=== PATIENT | male | born 1940 | race Caucasian/White ===

== ENCOUNTER 2022-11-10 07:38 | Outpatient (OUT) | payer MEDICARE, SELFPAY ==
[2022-11-10 08:49] LABS: Anion Gap 10.2; BUN Creatinine Ratio 29.7; Calcium 9.4 mg/dL (8.5-10.1); Carbon Dioxide 33.1 mmol/L (21.0-32.0); Chloride 102 mmol/L (98-107); Estimated GFR (African America >60 (>=60); Estimated GFR (Non-African Ame 54 (>=60); Glucose 103 mg/dL (74-106); Potassium 4.3 mmol/L (3.5-5.1); Sodium 141 mmol/L (136-145)
== END 2022-11-10 07:39 ==
LOC: LAB 07:46
PROVIDERS: PCP Family Medicine; Visit Provider Internal Medicine Cardiovascular Disease
DX: I10 Essential (primary) hypertension (principal); R06.00 Dyspnea, unspecified
CPT/HCPCS: 36415; 80048

== ENCOUNTER 2023-10-02 09:35 | Outpatient (OUT) | payer MEDICARE, SELFPAY ==
[2023-10-02 10:27] LABS: Basophils Absolute Auto 0.1 10^3/uL (0.0-0.1); Eosinophils Absolute Auto 0.2 10^3/uL (0.0-0.7); Eosinophils Percent Auto 3.2 % (0.9-7.0); Hematocrit 43.1 % (42.0-54.0); Hemoglobin 14.3 g/dL (14.0-18.0); Immature Granulocytes Abs Auto 0.02 10^3/uL (0.00-0.03); Immature Granulocytes Pct Auto 0.3 % (0.0-0.5); Lymphocytes Absolute Auto 1.5 10^3/uL (1.2-3.8); Mean Corpuscular HGB Conc 33.2 g/dL (29.9-35.2); Mean Corpuscular Hemoglobin 34.2 pg (25.9-34.0); Mean Corpuscular Volume 103.1 fL (80.0-94.0); Monocytes Absolute Auto 0.7 10^3/uL (0.3-0.8); Monocytes Percent Auto 11.4 % (1.7-12.0); Neutrophils Absolute Auto 3.5 10^3/uL (1.4-6.5); Neutrophils Percent Auto 59.1 % (43.0-75.0); Platelet Count 213 10^3/uL (150-450); Red Blood Count 4.18 10^6/uL (4.70-6.10); White Blood Count 5.9 10^3/uL (4.0-11.0)
[2023-10-02 11:51] LABS: Estimated Average Glucose 108 mg/dL; Glycohemoglobin A1C 5.4 % (4.5-6.2)
[2023-10-02 12:05] LABS: Alanine Aminotransferase 22 U/L (16-63); Albumin Level 3.8 g/dL (3.4-5.0); Alkaline Phosphatase 65 U/L (46-116); Anion Gap 9.8; Aspartate Amino Transferase 29 U/L (15-37); Bilirubin Total 1.1 mg/dL (0.2-1.0); Calcium 9.1 mg/dL (8.5-10.1); Carbon Dioxide 33.5 mmol/L (21.0-32.0); Chloride 102 mmol/L (98-107); Chol HDL Ratio 2.5; Cholesterol 160 mg/dL (<=200); Estimated GFR (African America >60 (>=60); Estimated GFR (Non-African Ame 52 (>=60); Free T3 3.58 pg/mL (2.18-3.98); Globulin 3.9 g/dL; Glucose 100 mg/dL (74-106); HDL Cholesterol 65 mg/dL (40-60); Potassium 4.3 mmol/L (3.5-5.1); Sodium 141 mmol/L (136-145); Thyroid Stimulating Hormone 1.991 uIU/mL (0.358-3.740); Total Protein 7.7 g/dL (6.4-8.2); Triglycerides 55 mg/dL (<=150)
== END 2023-10-02 09:36 | disposition home or self-care (01) ==
LOC: LAB 09:36
PROVIDERS: PCP Family Medicine; Visit Provider Family Medicine
DX: E78.00 Pure hypercholesterolemia, unspecified (principal); I48.91 Unspecified atrial fibrillation; R06.00 Dyspnea, unspecified; R73.09 Other abnormal glucose; Z12.5 Encounter for screening for malignant neoplasm of prostate; I50.30 Unspecified diastolic (congestive) heart failure; I11.0 Hypertensive heart disease with heart failure
CPT/HCPCS: 36415; 80053; 80061; 83036; 83880; 84436; 84443; 84481; 85025; G0103

== ENCOUNTER 2023-12-29 10:35 | Outpatient (OUT) | payer MEDICARE, SELFPAY ==
--- OUTSIDE RECORDS SUMMARY | 2023-12-29 10:42 | XMS_ITS | CCD ---
Author Organization [facility] CliniSyhi Care Team Providers Care Apprentice Pattern Maker Name Role Phone Levi Dumont Primary Care Provider HEMAL ., DR SINGH Admitting Unavailable HOY ., DR SINGH Attending Unavailable HOY ., DR SINGH Primary Care Unavailable HOY ., DR SINGH Consulting Unavailable HOY ., DR SINGH Admitting Unavailable HOY ., DR SINGH Attending Unavailable HOY ., DR SINGH Primary Care Unavailable HOY ., DR SINGH Consulting Unavailable HOY ., DR SINGH Admitting Unavailable HOY ., DR SINGH Attending Unavailable HOY ., DR SINGH Primary Care Unavailable HOY ., DR SINGH Consulting Unavailable NEWATIA, VAN Consulting Unavailable Edilberto Reciolas M Unavailable Unavailable Unavailable Deon Rasmussen Admitting Unavailable Deon Rasmussen Attending Unavailable Samantha Recio Primary Care Unavailable Deon Rasmussen Admitting Unavailable Deon Rasmussen Attending Unavailable Samantha Recio Primary Care Unavailable Rasmussen, Dr. Deon Frank Attending Anita vailable Grady, Dr. Deon Frank Referring Anita vailable Hemal, Dr. Samantha Reyes Primary Care Unavail able Rasmussen, Dr. Deon Frank Attending Anita vailable Grady, Dr. Deon Frank Referring Anita vailable Hemal, Dr. Samantha Reyes Primary Care Unavail able Rasmussen, Dr. Deon Frank Attending Anita vailable Hemal, Dr. Samantha Reyes Primary Care Unavail able Hemal, Dr. Samantha Reyes Primary Care Unavail able Grady, Dr. Deon Frank Attending Anita vailable Grady, Dr. Deon Frank Referring Anita vailable DEON RASMUSSEN Attending Unavailable SAMANTHA RECIO Primary Care Unavailable DEON RASMUSSEN Attending Unavailable SAMANTHA RECIO Primary Care Unavailable Medications Current Medications Medication Drug Class(es) Dates Sig (Normalized) Sig (Original) benoxinate hydrochloride 4 mg/ml / fluorescein sodium 2.5 mg/ml ophthalmic solution (1 source) Diagnostic Dye Start: 11-14-2021 End: 11-14-2021 fluorescein-benoxi selene 0.25-0.4 % 1 Drop (FLURESS) phenylephrine hydrochloride 25 mg/ml ophthalmic solution (1 source) alpha-1 Adrenergic Agonist Start: 11-14-2021 End: 11-14-2021 PHENYLephrine 2.5 % 1 Drop (AK-DILATE, LUZMARIA-SYNEPHRINE) proparacaine hydrochloride 5 mg/ml ophthalmic solution (1 source) Local Anesthetic Start: 11-14-2021 End: 11-14-2021 proparacaine 0.5 % 1 Drop (ALCAINE) tropicamide 10 mg/ml ophthalmic solution (1 source) Anticholinergic Start: 11-14-2021 End: 11-14-2021 tropicamide 1 % 1 Drop (MYDRIACYL) Completed/Discontinued Medications Medication Drug Class(es) Dates Sig (Normalized) Sig (Original) Acetaminophen (1 source) acetaminophen (TYLENOL ARTHRITIS ORAL) Take by mouth as needed. 0 Active Comment on above: Take by mouth as nee ded. ascorbic acid 1000 mg oral tablet (4 sources) Vitamin C take 1 tablet by mouth once daily Vitamin C 1000 MG Oral Tablet TAKE 1 TABLET DAILY. Quantity: 0 Refills: 0 Ordered: 24-Oct-2022 DO Active take 1 tablet by mouth once kristofer y ascorbic acid, vitamin C, (VITAMIN C) 500 mg tablet Take 500 mg by mouth once daily. 0 Active Comment on above: Take 500 mg by mouth once daily. Calcium (3 sources) Phosphate Binder, Calcium Calcium + D TABS AYLIN E 1 TABLET DAILY. Quantity: 0 Refills: 0 Ordered: 24-Oct-2022 DO Active Calcium Carbonate / vitamin D3 (1 source) CALCIUM CARBONATE/VITAMIN D3 (CALCIUM + D ORAL) Take by mouth. 0 Active Comment on above: Take by mouth. Centrum Silver TABS (3 sources) Centrum Silver T ABS TAKE 1 TABLET DAILY. Quantity: 0 Refills: 0 Ordered: 24-Oct-2022 DO Active 24 hr dilTIAZem hydrochloride 180 mg extended release oral capsule (3 sources) Calcium Channel Preeti Start: diltiazem CD (CARDIZEM CD, CARTIA XT) 180 mg 24 hr capsule Take 180 mg by mouth as directed. 0 11/10/2015 Active Comment on above: Take 180 mg by mouth as directed. docosahexaenoic acid 120 mg / eicosapentaenoic acid 180 mg oral capsule (1 source) take 1 capsule by mouth once daily Docosahexanoic Acid-Eicosapent 120-180 mg capsule Take 1,000 mg by mouth once daily. 0 Active Comment on above: Take 1,000 mg by javier th once daily. FLAXSEED OIL (OMEGA 3 ORAL) (1 source) FLAXSEED OIL (OM EGA 3 ORAL) Take by mouth. 0 Active Comment on above: Take by mouth. FOLIC ACID/MULTIVIT-MIN/LUTEIN (CENTRUM SILVER ORAL) (1 source) FOLIC ACID/MULTIVIT-MIN/LUT EIN (CENTRUM SILVER ORAL) Take by mouth. 0 Active Comment on above: Take by mouth. indapamide 1.25 mg oral tablet (3 sources) Thiazide-like Diuretic Start: take 1 tablet by mouth once daily Indapamide 1.25 MG Oral Tablet TAKE 1 TABLET ONCE DAILY. Quantity: 90 Refills: 3 Ordered: 24-Oct-2022 Deon Rasmussen MD Start : 24-Oct-2022 Active new start losartan potassium 100 mg oral tablet (3 sources) Angiotensin 2 Receptor Preeti Start: 016 take 1 tablet by mouth once daily losartan (COZAAR) 100 mg tablet Take 100 mg by mouth once daily. 0 11/10/2015 Active Comment on above: Take 100 mg by mouth once daily. magnesium oxide 500 mg oral capsule (3 sources) Magnesium 500 MG CAPS TAKE 1 CAPSULE Daily Quantity: 0 Refills: 0 Ordered: 24-Oct-2022 DO Active rivaroxaban 20 mg oral tablet (3 sources) Factor Xa Inhibitor Start: 023 take 1 tablet by mouth once daily Xarelto 20 MG Oral Tablet Take 1 tablet daily Quantity: 90 Refills: 3 Ordered: 04-Nov-2022 Deon Rasmussen MD Start : 24-Oct-2022 Active Saw [place] 450 MG Oral Capsule (3 sources) Saw [place] 450 MG Oral Capsule TAKE DIRECTED. Quantity: 0 Refills: 0 Ordered: 24-Oct-2022 DO Active selenium 200 mcg cap (1 source) selenium 200 mcg cap Take by mouth. 0 Active Comment on above: Take by mouth. Selenium 200 MCG Oral Capsule (3 sources) Selenium 200 MCG Oral Capsule TAKE DIRECTED. Quantity: 0 Refills: 0 Ordered: 24-Oct-2022 DO Active vitamin b6 200 mg oral tablet (1 source) take 1 tablet by mouth once daily Pyridoxine HCl 200 mg tablet Take 200 mg by mouth once daily. 0 Active Comment on above: Take 200 mg by mouth once daily. ZNOX/PYG/PUMPK/SAW PAL/PROST (MEN'S SAW PALMETTO FORMULA ORAL) (1 source) ZNOX/PYG/PUMPK/S AW PAL/PROST (MEN'S SAW PALMETTO FORMULA ORAL) Take by mouth. 0 Active Comment on above: Take by mouth. Problems Active Problems Problem Classification Problem Date Documented Da te Episodic/Chronic Cardiac dysrhythmias (6 sources) Persistent atrial fibrillation; Translations: [Atrial fibrillation] Resolved: 10-25-2022 Chronic Congestive heart failure; nonhypertensive (1 source) Unspecified diastolic (congestive) heart failure; Translations: [UNSPECIFIED DIASTOLIC HEART FAILURE] Onset: 02-21-2022 Chronic Disorders of lipid metabolism (1 source) Hyperlipidemia, unspecified; Translations: [HYPERLIPIDEMIA UNSPECIFIED] Onset: 02-21-2022 Chronic Essential hypertension (5 sources) Benign essential hypertension; Translations: [Benign essential hypertension] Onset: 03-18-2023 Chronic Heart valve disorders (7 sources) Mitral valve regurgitation; Translations: [Mitral valve disorders] Onset: 10-31-2022 Chronic Hypertension with complications and secondary hypertension (1 source) Hypertensive heart disease with heart failure; Translations: [HTN HEART DISEASE W/HEART FAIL] Onset: 02-21-2022 Chronic Other aftercare (3 sources) Drug therapy finding; Translations: [Long-term (current) use of other medications] Episodic Other and ill-defined heart disease (3 sources) Left atrial dilatation; Translations: [Cardiomegaly] Chronic Other and ill-defined heart disease (2 sources) Cardiomegaly; Translations: [Cardiomegaly] Onset: 03-18-2023 Chronic Other and unspecified benign neoplasm (1 source) Nevus of choroid of left eye; Translations: [Benign neoplasm of left choroid] Episodic Other circulatory disease (3 sources) H/O: hypertension; Translations: [Personal history of other diseases of circulatory system] Episodic Other circulatory disease (1 source) Low blood pressure; Translations: [Hypotension, unspecified] Episodic Other lower respiratory disease (4 sources) Other forms of dyspnea; Translations: [OTHER FORMS OF DYSPNEA] Onset: 09-16-2022 Episodic Other lower respiratory disease (1 source) Dyspnea; Translations: [Other respiratory abnormalities] Episodic Other lower respiratory disease (2 sources) Shortness of breath; Translations: [Shortness of breath] Onset: 12-25-2023 Episodic Other nervous system disorders (3 sources) Carpal tunnel syndrome; Translations: [Carpal tunnel syndrome] Chronic Other nervous system disorders (3 sources) Lesion of ulnar nerve, left upper limb; Translations: [Cubital tunnel syndrome on left] Chronic Other nervous system disorders (3 sources) Lesion of ulnar nerve, right upper limb; Translations: [Cubital tunnel syndrome on right] Chronic Other non-traumatic joint disorders (1 source) Other specified joint disorders, right shoulder; Translations: [OTH SPECIFIED JOINT D/O RT SHOULDER] Onset: 09-13-2022 Episodic Other nutritional; endocrine; and metabolic disorders (3 sources) Overweight in adulthood with body mass index of 25 or more but less than 30; Translations: [Overweight] Episodic Retinal detachments; defects; vascular occlusion; and retinopathy (1 source) Bilateral epiretinal membrane of eyes; 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, bilateral] Chronic Unclassified (1 source) Encounter for preprocedural laboratory examination; Translations: [Encounter for preprocedural laboratory examination] Onset: 10-27-2022 Unclassified (4 sources) Other persistent atrial fibrillation; Translations: [Other persistent atrial fibrillation (Multi)] Onset: 03-18-2023 Past or Other Problems Problem Classification Problem Date Documented Da te Episodic/Chronic Diabetes mellitus without complication (1 source) Other abnormal glucose; Translations: [OTHER ABNORMAL GLUCOSE] Onset: 02-21-2022 Episodic Other aftercare (2 sources) Other mcfp (current) drug therapy; Translations: [Other supervisor intermediates (current) drug therapy] Onset: 03-18-2023 Episodic Other lower respiratory disease (4 sources) Dyspnea, unspecified; Translations: [DYSPNEA UNSPECIFIED] Onset: 02-14-2022 Episodic Other screening for suspected conditions (not mental disorders or infectious disease) (1 source) Encounter for screening for malignant neoplasm of prostate; Translations: [ENC SCREEN MALIG NEOPLASM PROSTATE] Onset: 02-21-2022 Episodic Residual codes; unclassified (2 sources) H/O: respiratory disease; Translations: [Personal history of other diseases of respiratory system] Resolved: 12-01-2022 Episodic Screening and history of mental health and substance abuse codes (2 sources) Personal history of nicotine dependence; Translations: [Personal history of nicotine dependence] Onset: 05-25-2023 Episodic Unclassified (3 sources) Never smoked tobacco; Translations: [Never a smoker] Results Test Name Value Interpretation Reference Range Facility Office Visit (Cardiology)on 12-01-2022 Follow-up visit Diagnoses/Problems Assessed Persistent atrial fibrillation with RVR (427.31) (I48.19) 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) High risk medication use (V58.69) (Z79.899) Benign essential hypertension (401.1) (I10) Mitral valve regurgitation (424.0) (I34.0) Overweight with body mass index (BMI) of 28 to 28.9 in adult (278.02,V85.24) (E66.3,Z68.28) Never a smoker Orders Overweight with body mass index (BMI) of 28 to 28.9 in adult Healthy Weight Tips; Status:Complete - Retrospective Authorization; Done: 01Dec2022 Some eating tips that can help you lose weight.; Status:Complete - Retrospective Authorization; Done: 01Dec2022 SocHx: Never a smoker Tobacco Use Screening; Status:Complete; Done: 01Dec2022 Patient Instructions Please bring all medicines, vitamins, and herbal supplements with you when you come to the office. Prescriptions will not be filled unless you are compliant with your follow up appointments or have a follow up appointment scheduled as per instruction of your physician. Refills should be requested at the time of your visit. Follow up in 6 months Chief Complaint BRANDI RAHMAN is being seen for results. Patient is in the office with his for follow-up after having SHARON guided recently to assess mitral valve pathology. The SHARON demonstrated no indication of mitral valve prolapse but moderate degree of regurgitation. The rest of the study was unremarkable. He is currently asymptomatic and has chronic atrial fibrillation managed with Cardizem for control and Xarelto for anticoagulation. We added indapamide last visit and his pressures under control at present time. His heart rate is controlled on diltiazem. He has active lifestyle and currently has no complaint. I revisited the issue of mitral valve pathology with the patient and his . Reassurances were provided for the time being. Assessment/recommendati ons: 1?persistent atrial fibrillation with controlled rate. Managed by diltiazem and Xarelto with a strategy of rate control anticoagulation. He has significant dilated left atrium therefore attempt to restore and maintain sinus rhythm will be futile and especially since the patient has no symptoms related to atrial fibrillation. 2?moderate mitral regurgitation that is due to primary valve disease without prolapse confirmed by SHARON. Asymptomatic and will continue to follow-up noninvasively every 2 to 3 years. Reassurances were provided 3?hypertension, currently under control, no changes are needed. 4?high risk medication use with anticoagulation to be monitored 5?significant bilateral atrial enlargement on recent echocardiogram to be monitored 6? overweight, encouraged weight control with low-calorie diet 7?high risk medication with anticoagulants to be monitored closely. ? Prior catheterization 2019 revealed normal coronary Surgical History Problems History of Cardiac catheterization History of Carpal tunnel surgery History of Colectomy History of Knee replacement History of Neuroplasty Median Nerve At Carpal Tunnel History of Neuroplasty With Transposition Of Ulnar Nerve History of Tonsillectomy Past Medical History Problems History of dyspnea (V12.69) (Z87.898) History of hypertension (V12.59) (Z86.79) History of Paroxysmal atrial fibrillation (427.31) (I48.0) Resolved Date: 25 Oct 2022 Current Meds Medication NameInstruction Calcium + D TABSTAKE 1 TABLET DAILY. Centrum Silver TABSTAKE 1 TABLET DAILY. dilTIAZem HCl ER Beads 180 MG Oral Capsule Extended Release 24 HourTAKE 1 CAPSULE DAILY IN THE MORNING. Indapamide 1.25 MG Oral TabletTAKE 1 TABLET ONCE DAILY. Losartan Potassium 100 MG Oral TabletTAKE 1 TABLET DAILY. Magnesium 500 MG CAPSTAKE 1 CAPSULE Daily Saw [place] 450 MG Oral CapsuleTAKE DIRECTED. Selenium 200 MCG Oral CapsuleTAKE DIRECTED. Vitamin C 1000 MG Oral TabletTAKE 1 TABLET DAILY. Xarelto 20 MG Oral TabletTake 1 tablet daily Patient did not bring medication list or bottles. Updated verbally with patient Allergies Medication No Known Drug Allergies Recorded By: Claudia Bhatt; 03/30/2015 9:11:18 AM Social History Problems Daily caffeine consumption COFFEE DAILY Never a smoker No illicit drug use Occasional alcohol use Review of Systems Constitutional: not feeling tired. Cardiovascular: no intermittent leg claudication and as noted in HPI. Respiratory: no cough and no shortness of breath. Gastrointestinal: no change in bowel habits and no blood in stools. Integumentary: no skin rashes. Neurological: no seizures and no frequent falls. All other systems have been reviewed and are negative for complaint. Vitals Vital Signs Recorded: 01Dec2022 01:03PMRecorded: 01Dec2022 12:48PM [id number], RUE, Sitting [id number], RUE, Sitting Heart Rate76, L Radial Height5 ft 6 in [id number] lb BMI Kjfjhhwdgq36.41 kg/m2 BSA Calculated1.89 Tobacco Useb) No Falls Screening (Age 18+)a) No falls within the (more content not included)... Normal [place] Tobacco Screening.on 023 Fall risk assessment a) No falls within the last year [facility]- [place] 250 DO Work Phone: Tobacco use status [facility] b) No [facility]- [place] 250 DO Work Phone: [facility] echo transesophageal SHARON on 10-31-2022 [facility] echo transesophageal SHARON [facility] Main [place] [address] [place] [address] Echocardiogram Signed Patient: Brandi Rahman MR#: [id number] 9 : 1940 Acct:[id number] Age/Sex: 82 / M ADM Date: 10/31/22 Loc: IN Room: Type: [facility] Attending Dr: Deon Rasmussen MD Ordering Provider: Deon Rasmussen MD, [facility] Date of Service: 10/31/22/ [facility] echo transesophageal SHARON: DYSPNEA, MR, A-FIB. Copies to: Deon Rasmussen MD, [facility] Reason For Study: DYSPNEA, MR, A-FIB. History: Afib. HTN. Former Smoker. Family history: Father-Aortic Aneurysm. Interpretation Summary SHARON was done in the OR with anesthesia providing sedation The left ventricular size, thickness and function are normal Ejection Fraction = 60-65%. The left atrium appears moderately dilated. Atrial septum appears to be intact and there is no evidence of flow across the atrial septum either by colorflow Doppler or by agitated saline. The right atrium is borderline dilated. The mitral valve is moderately thickened with no evidence of prolapse. Moderate degree of regurgitation is present with multiple jets noted. No evidence of ruptured chordae. No evidence of mitral stenosis There is mild tricuspid regurgitation. The right ventricular systolic pressure is 45 mmHg. Right ventricular systolic pressure is consistent with mild to moderate pulmonary hypertension. The aortic arch was noted to be normal with no significant plaques Procdure: A two-dimensional transesophageal echocardiogram with color flow and Doppler was performed. Informed consent for Transesophageal Echocardiogram was obtained prior to the procedure. SHARON was done in the OR with anesthesia providing sedation. The transesophageal probe was passed without difficulty. The usual views were obtained; basal, mid-esophageal, transgastric and aortic views. The patient's vital signs, including blood pressure, heart rate, pulse oximetry and cardiac rhythm were monitored throughout the procedure and remained stable. Contrast injection with agitated saline was performed. The patient tolerated the procedure well without evidence of orophangeal or esophageal trauma. Left Ventricle: The left ventricular size, thickness and function are normal. Ejection Fraction = 60-65%. Left Atrium: The left atrium appears moderately dilated. Atrial septum appears to be intact and there is no evidence of flow across the atrial septum either by colorflow Doppler or by agitated saline. The atrial septum appears normal. Right Atrium: The right atrium is borderline dilated. Right Ventricle: The right ventricular size, thickness and function are normal. Aortic Valve: The aortic valve is trileaflet. Mitral Valve: The mitral valve is moderately thickened with no evidence of prolapse. Moderate degree of regurgitation is present with multiple jets noted. No evidence of ruptured chordae. No evidence of mitral stenosis. Tricuspid Valve: The tricuspid valve is normal. There is mild tricuspid regurgitation. The right ventricular systolic pressure is 45 mmHg. Right ventricular systolic pressure is consistent with mild to moderate pulmonary hypertension. Pulmonic Valve: The pulmonic valve is not well seen, but is grossly normal. Arteries: The aortic arch was noted to be normal with no significant plaques. Effusions: No pericardial effusion seen. Transcribed By: TAMY Performed At: 10/31/22 1247 Signed By: Deon Rasmussen MD, [facility] 10/31/22 1605 Normal [facility] Basic Metabolic Panelon 10-07 Anion gap [Moles/Vol] 9.3 mmol/L Normal 6.0-15.0 [facility] Comment on above: Performed By: #### B MP, CBC #### [address] Calcium [Mass/Vol] 9.1 mg/dL Normal 8.6-10.3 [facility] Comment on above: Result Comment: PERF ORMED BY: [place] [address] PATHOLOGIST BRAILLE TEACHER LILLIAN TILLMAN M.D. Performed By: #### B MP, CBC #### [facility] [address] [place] [address] [place] Chloride [Moles/Vol] 101 mmol/L Normal 98-107 [facility] Comment on above: Performed By: #### B MP, CBC #### [facility] [address] [place] [address] [place] CO2 [Moles/Vol] 34.3 mmol/L High 21.0-31.0 [facility] Comment on above: Performed By: #### B MP, CBC #### [facility] [address] Creatinine [Mass/Vol] 1.30 mg/dL Normal 0.70-1.30 [facility] Comment on above: Performed By: #### B MP, CBC #### [facility] [address] [place] [address] [place] GFR/1.73 sq M.predicted MDRD (S/P/Bld) [Vol rate/Area] 54.849 mL/min/{1.73_m2} Normal [facility] Comment on above: Performed By: #### B MP, CBC #### [facility] [address] Glucose [Mass/Vol] 89 mg/dL Normal 70-100 [facility] Comment on above: Result Comment: [facility] Glucose Reference Range is dependent on time and content of last meal. Glucose of more than 200 mg/dL in a nonstressed, ambulatory subject supports the diagnosis of Diabetes Mellitus. ADA recommended reference range Performed By: #### B MP, CBC #### [address] Potassium [Moles/Vol] 4.6 mmol/L Normal 3.5-5.1 [facility] Comment on above: Performed By: #### B MP, CBC #### [address] Sodium [Moles/Vol] 140 mmol/L Normal 136-145 [facility] Comment on above: Performed By: #### B MP, CBC #### [address] Urea nitrogen [Mass/Vol] 29 mg/dL High 7-25 [facility] Comment on above: Performed By: #### B MP, CBC #### [address] Complete Blood Count Auto Di ffon 10-27-2022 Basophils (Bld) [#/Vol] 0.1 10*3/uL Normal 0.0-0.2 [facility] Comment on above: Result Comment: PERF ORMED BY: [place] [address] PATHOLOGIST BRAILLE TEACHER LILLIAN TILLMAN M.D. Performed By: #### B MP, CBC #### [address] [place] [address] [place] Basophils/100 WBC (Bld) 1.1 % Normal . [facility] Comment on above: Performed By: #### B MP, CBC #### [address] Eosinophils (Bld) [#/Vol] 0.2 10*3/uL Normal 0.0-0.45 [facility] Comment on above: Performed By: #### B MP, CBC #### [address] Eosinophils/100 WBC (Bld) 3.2 % Normal . [facility] Comment on above: Performed By: #### B MP, CBC #### [address] Erythrocyte distribution width (RBC) [Ratio] 14.4 % Normal 12.0-14.8 [facility] Comment on above: Performed By: #### B MP, CBC #### [address] Hematocrit (Bld) [Volume fraction] 43.0 % Normal 38.8-50.0 [facility] Comment on above: Performed By: #### B MP, CBC #### [address] Hemoglobin (Bld) [Mass/Vol] 14.4 g/dL Normal 13.0-17.0 [facility] Comment on above: Performed By: #### B MP, CBC #### [address] Lymphocytes (Bld) [#/Vol] 1.0 10*3/uL Normal 1.00-4.8 [facility] Comment on above: Performed By: #### B MP, CBC #### [address] Lymphocytes/100 WBC (Bld) 21.1 % Normal . [facility] Comment on above: Performed By: #### B MP, CBC #### [address] MCH (RBC) [Entitic mass] 33.8 pg Normal 27.5-35.2 [facility] Comment on above: Performed By: #### B MP, CBC #### [address] MCV (RBC) [Entitic vol] 100.8 fL Normal 83.5-101 [facility] Comment on above: Performed By: #### B MP, CBC #### [address] Mean Corpuscular HGB Conc 33.5 g/dL Normal 32.5-35.6 [facility] Comment on above: Performed By: #### B MP, CBC #### [address] Monocytes (Bld) [#/Vol] 0.6 10*3/uL Normal 0.0-0.8 [facility] Comment on above: Performed By: #### B MP, CBC #### [address] Monocytes/100 WBC (Bld) 11.8 % Normal . [facility] [facility] [place] Comment on above: Performed By: #### B MP, CBC #### [address] Neutrophils (Bld) [#/Vol] 2.9 10*3/uL Normal 1.8-7.7 [facility] [place] Comment on above: Performed By: #### B MP, CBC #### [address] Neutrophils/100 WBC (Bld) 62.8 % Normal . [facility] [place] Comment on above: Performed By: #### B MP, CBC #### [address] NRBC% 0.1 /100{WBC} Normal 0-0.5 [facility] [place] Comment on above: Performed By: #### B MP, CBC #### [address] Platelet mean volume (Bld) [Entitic vol] 8.0 fL Normal 6.6-10.1 [facility] [place] Comment on above: Performed By: #### B MP, CBC #### [facility] [address] Platelets (Bld) [#/Vol] 213 10*3/uL Normal 150-450 [facility] [place] Comment on above: Performed By: #### B MP, CBC #### [facility] [address] RBC (Bld) [#/Vol] 4.27 10*6/uL Normal 3.90-5.60 [facility] Comment on above: Performed By: #### B MP, CBC #### [facility] [address] WBC (Bld) [#/Vol] 4.7 10*3/uL Normal 4.1-10.5 [facility] Comment on above: Performed By: #### B MP, CBC #### [facility] [address] Office Visit (Cardiology)on 10-24-2022 Follow-up visit Diagnoses/Problems Assessed Mitral valve regurgitation (424.0) (I34.0) Dyspnea (786.09) (R06.00) High risk medication use (V58.69) (Z79.899) Overweight with body mass index (BMI) of 26 to 26.9 in adult (278.02,V85.22) (E66.3,Z68.26) Never a smoker Benign essential hypertension (401.1) (I10) Mitral valve prolapse (424.0) (I34.1) Persistent atrial fibrillation with RVR (427.31) (I48.19) 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) Orders Benign essential hypertension, Dyspnea Basic Metabolic Panel; Status:Active; Requested for:10Nov2022; Dyspnea, Mitral valve regurgitation, PMH: Paroxysmal atrial fibrillation Transesophageal Echo; Status:Hold For - Scheduling; Requested for:24Oct2022; High risk medication use, PMH: Paroxysmal atrial fibrillation Changed: From To Xarelto 20 MG Oral Tablet Take 1 tablet daily Overweight with body mass index (BMI) of 26 to 26.9 in adult Healthy Weight Tips; Status:Complete; Done: [id number] Some eating tips that can help you lose weight.; Status:Complete; Done: [id number] PMH: Paroxysmal atrial fibrillation Start: Indapamide 1.25 MG Oral Tablet; TAKE 1 TABLET ONCE DAILY SocHx: Never a smoker Tobacco Use Screening; Status:Complete; Done: [id number] Unlinked Stop: Eliquis 2.5 MG Oral Tablet Patient Instructions Please bring all medicines, vitamins, and herbal supplements with you when you come to the office. Prescriptions will not be filled unless you are compliant with your follow up appointments or have a follow up appointment scheduled as per instruction of your physician. Refills should be requested at the time of your visit. Xarelto 20 mg one daily Lozol 1.25 mg one daily SHARON Follow-up after testing completed The provider reviewed the following test(s) and result(s) with the patient: ECG Chief Complaint BRANDI RAHMAN is being seen for SELF REFERRAL. 82-year-old white male who came to see me accompanied by his who is a patient of mine for evaluation of recent diagnosis of atrial fibrillation in the context of their severe mitral regurgitation caused by significant mitral valve prolapse. Back in 2000 the patient had cardiac catheterization by myself which showed normal coronary arteries. At the time he was having ventricular arrhythmias for which she was evaluated by EP and were found to be insignificant and no action was needed. I have not seen him since that time. Had an echocardiogram done recently at [facility] which I have the report reviewed. It demonstrated significant dilatation of right and left atrium and significant amount of prolapse of the mitral valve leading to moderate-severe regurgitation. The patient has symptoms of limited exercise tolerance, he has no orthopnea PND or lower extremity edema and no chest pain. Has no TIAs or stroke and no bleeding complications. His examination reveals that the mitral regurgitation murmur is consistent with the prolapse. He has irregular rhythm and his EKG atrial fibrillation with controlled rate. Currently he is on samples of Eliquis. Assessment/recommendati ons: 1?persistent atrial fibrillation with controlled rate. The patient require long-term anticoagulation and the rationale for that was discussed with him at length. He chose to go on Xarelto 20 mg daily since he has normal kidney function. His rate is controlled. There should be no attempt to restore normal sinus rhythm given the size of his atria. 2?near severe mitral regurgitation in the context of significant mitral valve prolapse. The reader of the previous transthoracic echocardiogram suggested transesophageal echocardiogram for better understanding of the function and the structure of the mitral valve which I agree with. I explained that the patient and his and he agreed to get the procedure scheduled. Eventually will decide whether this valve need to be repaired or replaced based on the findings. 3?hypertension, currently uncontrolled on losartan, given the fact that patient has mitral regurgitation we need to be more aggressive with hypertension and I advise adding indapamide 1.25 mg daily. 4?high risk medication use with anticoagulation to be monitored 5?significant bilateral atrial enlargement on recent echocardiogram to be monitored 6?slight overweight, encouraged weight control with low-calorie diet Active Problems Problems Bilateral carpal tunnel syndrome (354.0) (G56.03) Cubital tunnel syndrome on left (354.2) (G56.22) Cubital tunnel syndrome on right (354.2) (G56.21) Never a smoker Surgical History Problems History of Cardiac catheterization History of Carpal tunnel surgery History of Colectomy History of Knee replacement History of Neuroplasty Median Nerve At Carpal Tunnel History of Neuroplasty With Transposition Of Ulnar Nerve History of Tonsillectomy Past Medical History Problems History of hypertension (V12.59) (Z86.79) History of Paroxysmal atrial fibrillation (427.31) (I48.0) Current Meds Medication NameInst (more content not included)... Normal [place] Tobacco Screening.on 023 Adult depression screening assessment No [facility] 250 DO Work Phone: Fall risk assessment a) No falls within the last year [facility] 250 DO Work Phone: Tobacco use status CPHS b) No [facility] 250 DO Work Phone: ECHOCARDIO M/2D COMPLETEon 0 09-16-2022 ECHOCARDIO M/2D COMPLETE Patient: BRANDI RAHMAN Exam Date: 09/16/2022 : 1940 Gender:M Ordering : DR SAMANTHA RECIO . Admission #: [id number] Family : Order #: [id number] CLICK HERE TO VIEW EXAM ECHOCARDIOGRAM REPORT PROCEDURE: CARDIO PULMONARY ECHOCARDIO M/2D COMP INDICATIONS: MOYA COMPARISON: None. DESCRIPTION: COMPLETE ECHOCARDIOGRAM Real-time transthoracic echocardiography with 2D, M-mode, spectral and color flow Doppler performed. QUALITY: Technical quality was good. LEFT VENTRICLE: Normal chamber size. Moderate concentric left ventricular hypertrophy. Global left ventricular systolic function is normal. LV EF: Visual estimation of left ventricular ejection fraction is 55% DIASTOLIC: Not adequately assessed due to heart rhythm. ATRIAL SEPTUM: LEFT ATRIUM: Severe dilatation. RIGHT ATRIUM: Moderate dilatation. RIGHT VENTRICLE: Normal chamber size. Normal right ventricular systolic function. TRICUSPID VALVE: Normal mobility and thickness. No stenosis with mild regurgitation. Doppler studies suggest moderate pulmonary hypertension. RVSP 52 mmHg MITRAL VALVE: Possible posterior leaflet prolapse. No evidence of mitral valve stenosis. There is no mitral annular calcification. Moderate to severe mitral regurgitation. AORTIC VALVE: Normal trileaflet appearance. Mildly calcified aortic valve. Normal leaflet mobility. No evidence of aortic valve stenosis. Mild aortic regurgitation. AORTIC ROOT: Normal diameter and appearance. PULMONIC VALVE: Normal thickness and mobility. No stenosis. Mild regurgitation. PERICARDIUM: No evidence of pericardial effusion. IVC: Collapses with inspirations. Normal size. PLEURA: CONCLUSION: 1. Left ventricular systolic function appears to be normal. LVEF is estimated at 55%. 2. Moderate concentric left ventricular hypertrophy. 3. Normal right ventricular size and systolic function. 4. Moderate to severe biatrial dilatation. 5. Possible posterior leaflet mitral valve leaflet prolapse with moderate to severe mitral regurgitation. 6. Mild tricuspid and aortic regurgitation. 7. Mildly elevated right-sided pressures. 8. The patient appears to be in atrial fibrillation. 9. A transesophageal echocardiogram would provide better assessment of the mitral valve structure and function. Adult Echocardiography Procedure Report Left Ventricle LVEDD (3.7 - 5.6 cm): 5.45 cm LVESD (2.2 - 4.0 cm): 3.70 cm LVIVS thickness (0.6 - 1.2 cm): 1.44 cm LVPW thickness (0.5 - 1.0 cm): 1.52 cm e': 0.19 m/s E - e': 6.08 LVOT Max Gradient: 2.90 mm[Hg] Peak Velocity (LVOT): 0.85 m/s Mean Velocity (LVOT): 0.59 m/s LVOT Diameter 2.33 cm Left Ventricular Ejection Fraction: 55 % Left Atrium LA Volume Index (2D A2C): 222.84 ml, 222.84 ml Left Atrium Systolic Dimension: 6.74 cm Mitral Valve MV E to A Ratio: 103.66 Mitral Valve A-Wave Peak Velocity: 0.01 m/s Mitral Valve E-Wave Peak Velocity: 1.19 m/s Right Ventricle RV Internal Diastolic Dimension: 4.04 cm Aorta AO Root Diam: 3.59 cm Ascending Ao Diam: 3.29 cm Aortic Valve AoV Area (Peak Dl): 2.57 cm2, 2.57 cm2 AoV Area (VTI): 2.46 cm2, 2.46 cm2 Peak Velocity(Antegrade Flow): 1.41 m/s Peak Gradient(Antegrade Flow): 7.94 mm[Hg] Mean Velocity(Antegrade Flow): 1.00 m/s Mean Gradient(Antegrade Flow): 4.59 mm[Hg] Velocity Time Integral: 25.60 cm Tricuspid Valve Peak Velocity (Regurgitant Flow): 3.51 m/s, 3.22 m/s, 3.20 m/s, 3.22 m/s Peak Velocity: 0.52 m/s Pulmonic Valve Mean Gradient: 2.24 mm[Hg] Mean Velocity: 0.68 m/s Peak Velocity: 1.08 m/s, 0.94 m/s Peak Gradient: 3.51 mm[Hg], 4.64 mm[Hg] Right Atrium Right Atrium Systolic Pressure: 62.72 ml, 62.72 ml Dictated by: Jt Lackey M.D. on 09/16/2022 at 20:13 Approved by: Jt Lackey M.D. on 09/16/2022 at 20:23 Normal The [facility] BNPon 09-09-2022 Natriuretic peptide B (Bld) [Mass/Vol] 154.0 pg/mL Normal <=1,800.0 [facility] Comment on above: Performed By: #### T SH, T7, CMP, BNP ####[facility] [address] [place] [address]DrRodolfo Elver Arthur CBC AUTO DIFFon 09-09-2022 BASO # 0.0 103/ul Normal 0.0-0.1 [facility] Comment on above: Performed By: #### C BC ####[facility] [address] [place] [address]Dr. Elver Gibson Basophils/100 WBC (Bld) 0.6 % Normal 0.2-2.0 [facility] Comment on above: Performed By: #### C BC ####[facility] [address] [place], [place] [address]Dr. Elver Gibson EO # 0.2 103/ul Normal 0.0-0.7 [facility] Comment on above: Performed By: #### C BC ####[facility] [address] [place], [place] [address]Dr. Elver Gibson Eosinophils/100 WBC (Bld) 4.1 % Normal 0.9-7.0 [facility] Comment on above: Performed By: #### C BC ####[facility] [address] [place], [place] [address]Dr. Elver Gibson Erythrocyte distribution width (RBC) [Ratio] 13.5 % Normal 11.0-15.0 [facility] Comment on above: Performed By: #### C BC ####[facility] [address] [place], [place] [address]Dr. Elver Gibson Hematocrit (Bld) [Volume fraction] 42.9 % Normal 42.0-54.0 [facility] Comment on above: Performed By: #### C BC ####[facility] [address] [place], [place] [address]Dr. Elver Gibson Hemoglobin (Bld) [Mass/Vol] 14.5 g/dL Normal 14.0-18.0 [facility] Comment on above: Performed By: #### C BC ####[facility] [address] [place], [place] [address]Dr. Elver Gibson IG # 0.01 10e3/ul Normal 0.00-0.03 [facility] Comment on above: Performed By: #### C BC ####[facility] [address] [place], [place] [address]Dr. Elver Gibson IG % 0.2 % Normal 0.0-0.5 [facility] Comment on above: Performed By: #### C BC ####[facility] [address] [place] [id number] Gibson LYMPH # 1.2 103/ul Normal 1.2-3.8 [facility] Comment on above: Performed By: #### C BC ####[facility] [address] [place] [id number]. Elver Gibson Lymphocytes/100 WBC (Bld) 21.8 % Normal 20.5-60.0 [facility] Comment on above: Performed By: #### C BC ####[facility] [address] [place] [address]DrRodolfo Gibson MANUAL DIFF REQ NO Normal [facility] Comment on above: Performed By: #### C BC ####[facility] [address] [place] [phone]. Elver Gibson MCH (RBC) [Entitic mass] 33.4 pg Normal 25.9-34.0 [facility] Comment on above: Performed By: #### C BC ####[facility] [address] [place] [id number]. Elver Gibson MCHC (RBC) [Mass/Vol] 33.8 g/dL Normal 29.9-35.2 [facility] Comment on above: Performed By: #### C BC ####[facility] [address] [place] [id number] Gibson MCV (RBC) [Entitic vol] 98.8 fL Critically high 80.0-94.0 [facility] Comment on above: Performed By: #### C BC ####[facility] [address] [place] [id number] Gibson MONO # 0.7 103/ul Normal 0.3-0.8 [facility] Comment on above: Performed By: #### C BC ####[facility] [address] [place] [phone]. Elver Gibson Monocytes/100 WBC (Bld) 13.3 % Critically high 1.7-12.0 [facility] Comment on above: Performed By: #### C BC ####[facility] [address] [place] [phone]. Elver Gibson NEUT # 3.3 103/ul Normal 1.4-6.5 [facility] Comment on above: Performed By: #### C BC ####[facility] [address] [place] [phone]. Elver Gibson Neutrophils/100 WBC (Bld) 60.0 % Normal 43.0-75.0 [facility] Comment on above: Performed By: #### C BC ####[facility] [address] [place] [phone]. Elver Gibson Platelet mean volume (Bld) [Entitic vol] 9.5 fL Normal 9.5-13.5 [facility] Comment on above: Performed By: #### C BC ####[facility] [address] [place] [phone]. Elver Gibson PLT 197 103/ul Normal 150-450 [facility] Comment on above: Performed By: #### C BC ####[facility] [address] [place] [phone]. Elver Gibson RBC 4.34 106/ul Critically low 4.70-6.10 [facility] Comment on above: Performed By: #### C BC ####[facility] [address] [place] [phone]. Elver Gibson WBC 5.4 103/ul Normal 4.0-11.0 [facility] Comment on above: Performed By: #### C BC ####[facility] [address] [place] [phone]. Elver Gibson FREE THYROXINE INDEX T7on FTI 2.21 Normal 1.30-4.50 [facility] Comment on above: Performed By: #### T SH, T7, CMP, BNP ####[facility] [address] [place] [phone]. Elver Arthur T3U 35.0 % Normal 33.0-40.0 [facility] Comment on above: Performed By: #### T SH, T7, CMP, BNP ####[facility] [address] [place] [address]Dr. Elver Gibson T4 [Mass/Vol] 6.30 ug/dL Normal 4.50-12.10 [facility] Comment on above: Performed By: #### T SH, T7, CMP, BNP ####[facility] [address] [place] [address]Dr. Elver Gibson PROF 14(COMP METB)on 023 Albumin [Mass/Vol] 3.8 g/dL Normal 3.4-5.0 [facility] Comment on above: Performed By: #### T SH, T7, CMP, BNP ####[facility] [address] [place] [address]Dr. Elver Gibson Albumin/Globulin [Mass ratio] 1.1 {ratio} Normal [facility] Comment on above: Performed By: #### T SH, T7, CMP, BNP ####[facility] [address] [place] [address]Dr. Elver Gibson ALP [Catalytic activity/Vol] 74 U/L Normal 46-116 [facility] Comment on above: Performed By: #### T SH, T7, CMP, BNP ####[facility] [address] [place] [address]Dr. Elver Gibson ALT [Catalytic activity/Vol] 27 U/L Normal 16-63 [facility] Comment on above: Performed By: #### T SH, T7, CMP, BNP ####[facility] [address] [place] [address]Dr. Elver Gibson Anion gap [Moles/Vol] 10.8 mmol/L Normal [facility] Comment on above: Performed By: #### T SH, T7, CMP, BNP ####[facility] [address] [place] [address]Dr. Elver Gibson AST [Catalytic activity/Vol] 30 U/L Normal 15-37 [facility] Comment on above: Performed By: #### T SH, T7, CMP, BNP ####[facility] [address] [place] [address]Dr. Elver Gibson Bilirubin [Mass/Vol] 0.7 mg/dL Normal 0.2-1.0 [facility] Comment on above: Performed By: #### T SH, T7, CMP, BNP ####[facility] [address] [place] [address]Dr. Elver Gibson Calcium [Mass/Vol] 9.3 mg/dL Normal 8.5-10.1 [facility] Comment on above: Performed By: #### T SH, T7, CMP, BNP ####[facility] [address] [place], [place] [address]Dr. Elver Gibson Chloride [Moles/Vol] 104 mmol/L Normal 98-107 [facility] Comment on above: Performed By: #### T SH, T7, CMP, BNP ####[facility] [address] [place], [place] [address]Dr. Elver Gibson CO2 [Moles/Vol] 31.9 mmol/L Normal 21.0-32.0 The [facility] [place] Comment on above: Performed By: #### T SH, T7, CMP, BNP ####[facility] [address] [place], [place] [address]Dr. Elver Gibson Creatinine [Mass/Vol] 1.19 mg/dL Normal 0.70-1.30 [facility] Comment on above: Performed By: #### T SH, T7, CMP, BNP ####[facility] [address] [place], [place] [address]Dr. Elver Gibson EGFR-AF NIGERIEN >60 Normal >=60 [facility] [place] Comment on above: Performed By: #### T SH, T7, CMP, BNP ####[facility] [address] [place], [place] [address]Dr. Elver Gibson EGFR-NON AF NIGERIEN 59 mL/min/1.73m2 Critically low >=60 [facility] Comment on above: Performed By: #### T SH, T7, CMP, BNP ####[facility] [address] [place], [place] [address]Dr. Elver Gibson Globulin (S) [Mass/Vol] 3.5 g/dL Normal [facility] Comment on above: Performed By: #### T SH, T7, CMP, BNP ####[facility] [address] [place] [address]Dr. Elver Gibson Glucose [Mass/Vol] 124 mg/dL Critically high 74-106 [facility] Comment on above: Performed By: #### T SH, T7, CMP, BNP ####[facility] [address] [place] [address]Dr. Elver Gibson Potassium [Moles/Vol] 4.7 mmol/L Normal 3.5-5.1 [facility] Comment on above: Performed By: #### T SH, T7, CMP, BNP ####[facility] [address] [place] [address]Dr. Elver Gibson Protein [Mass/Vol] 7.3 g/dL Normal 6.4-8.2 [facility] Comment on above: Performed By: #### T SH, T7, CMP, BNP ####[facility] [address] [place] [address]Dr. Elver Gibson Sodium [Moles/Vol] 142 mmol/L Normal 136-145 [facility] Comment on above: Performed By: #### T SH, T7, CMP, BNP ####[facility] [address] [place] [address]Dr. Elver Gibson Urea nitrogen [Mass/Vol] 27.0 mg/dL Critically high 7.0-18.0 [facility] Comment on above: Performed By: #### T SH, T7, CMP, BNP ####[facility] [address] [place] [address]Dr. Elver Gibsno Urea nitrogen/Creatinine [Mass ratio] 22.7 mg/mg Normal [facility] Comment on above: Performed By: #### T SH, T7, CMP, BNP ####[facility] [address] [place] [address]Dr. Elver Gibson TSHon 09-09-2022 TSH 1.455 uIU/mL Normal 0.358-3.740 [facility] Comment on above: Performed By: #### T SH, T7, CMP, BNP ####[facility] [address] [place] [address]Dr. Elver Gibson XR CHEST 2 Von 09-09-2022 XR CHEST 2 V EXAMINATION: XR CHES T 2 V, 09/09/2022 12:11 PM EDT HISTORY: Dyspnea COMPARISON: None. TECHNIQUE: Chest x-ray: Two views. FINDINGS: No focal consolidations or pleural effusions. Cardiomediastinal silhouette is unremarkable. Calcified mediastinal lymph nodes. Severe degenerative changes of the glenohumeral joints bilaterally. Thoracic spine spondylosis. IMPRESSION: No acute disease. Electronically authenticated by: VAN VUONG Date: 2022-09-09 12:48 Normal [facility] INSULINon 02-15-2022 Insulin 11.3 uIU/mL Normal 2.6-24.9 [facility] Comment on above: Performed By: #### I NSULIN #### [facility] [address] [address] [address] Elver Gibson T4, T3U, FTI LABCORPon 02-15 Free Thyroxine Index 2.1 Normal 1.2-4.9 [facility] Comment on above: Performed By: #### T HYLC #### [facility] [address] [address] [address] Elver Gibson T3 Uptake 30 % Normal 24-39 [facility] Comment on above: Performed By: #### T HYLC #### [facility] [address] [address] [address] Elver Gibson T4 [Mass/Vol] 7.0 ug/dL Normal 4.5-12.0 [facility] Comment on above: Performed By: #### T HYLC #### [facility] [address] [address] [address] Elver Gibson BNPon 02-14-2022 Natriuretic peptide B (Bld) [Mass/Vol] 229.0 pg/mL Normal <=1,800.0 [facility] Comment on above: Performed By: #### B PAYROLL SPECIALIST, CMP, LIPID, TSH, URIC #### [facility] [address] [place], [place] [address] Dr. Elver Gibson CBC AUTO DIFFon 02-14-2022 BASO # 0.0 103/ul Normal 0.0-0.1 [facility] Comment on above: Performed By: #### C BC ####[facility] [address] [place] [id number] Gibson Basophils/100 WBC (Bld) 0.7 % Normal 0.2-2.0 [facility] Comment on above: Performed By: #### C BC ####[facility] [address] [place] [phone]. Elver Gibson EO # 0.2 103/ul Normal 0.0-0.7 [facility] Comment on above: Performed By: #### C BC ####[facility] [address] [place] [id number] Gibson Eosinophils/100 WBC (Bld) 3.9 % Normal 0.9-7.0 [facility] Comment on above: Performed By: #### C BC ####[facility] [address] [place] [id number] Gibson Erythrocyte distribution width (RBC) [Ratio] 13.2 % Normal 11.0-15.0 [facility] Comment on above: Performed By: #### C BC ####[facility] [address] [place] [id number] Gibson Hematocrit (Bld) [Volume fraction] 42.9 % Normal 42.0-54.0 [facility] Comment on above: Performed By: #### C BC ####[facility] [address] [place] [id number] Gibson Hemoglobin (Bld) [Mass/Vol] 14.2 g/dL Normal 14.0-18.0 [facility] Comment on above: Performed By: #### C BC ####[facility] [address] [place] [id number] Gibson IG # 0.01 10e3/ul Normal 0.00-0.03 [facility] Comment on above: Performed By: #### C BC ####[facility] [address] [place] [address]DrRodolfo Gibson IG % 0.2 % Normal 0.0-0.5 [facility] Comment on above: Performed By: #### C BC ####[facility] [address] [place] [address]DrRodolfo Gibson LYMPH # 1.4 103/ul Normal 1.2-3.8 [facility] Comment on above: Performed By: #### C BC ####[facility] [address] [place] [address]DrRodolfo Gibson Lymphocytes/100 WBC (Bld) 24.0 % Normal 20.5-60.0 [facility] Comment on above: Performed By: #### C BC ####[facility] [address] [place], [place] [address]DrRodolfo Gibson MANUAL DIFF REQ NO Normal [facility] Comment on above: Performed By: #### C BC ####[facility] [address] [place] [id number] Elver Arthur MCH (RBC) [Entitic mass] 33.3 pg Normal 25.9-34.0 [facility] Comment on above: Performed By: #### C BC ####[facility] [address] [place], [place] [address]DrRodolfo Gibson MCHC (RBC) [Mass/Vol] 33.1 g/dL Normal 29.9-35.2 [facility] Comment on above: Performed By: #### C BC ####[facility] [address] [place], [place] [id number] Gibson MCV (RBC) [Entitic vol] 100.7 fL Critically high 80.0-94.0 [facility] Comment on above: Performed By: #### C BC ####[facility] [address] [place] [id number] Gibson MONO # 0.7 103/ul Normal 0.3-0.8 [facility] Comment on above: Performed By: #### C BC ####[facility] [address] [place] [id number]. Elver Gibson Monocytes/100 WBC (Bld) 12.7 % Critically high 1.7-12.0 [facility] Comment on above: Performed By: #### C BC ####[facility] [address] [place] [id number]. Elver Gibson NEUT # 3.3 103/ul Normal 1.4-6.5 [facility] Comment on above: Performed By: #### C BC ####[facility] [address] [place] [id number]. Elver Gibson Neutrophils/100 WBC (Bld) 58.5 % Normal 43.0-75.0 [facility] Comment on above: Performed By: #### C BC ####[facility] [address] [place] [id number]. Elver Gibson Platelet mean volume (Bld) [Entitic vol] 9.6 fL Normal 9.5-13.5 [facility] Comment on above: Performed By: #### C BC ####[facility] [address] [place] [id number]. Elver Gibson PLT 183 103/ul Normal 150-450 [facility] Comment on above: Performed By: #### C BC ####[facility] [address] [place] [id number]. Elver Gibson RBC 4.26 106/ul Critically low 4.70-6.10 [facility] Comment on above: Performed By: #### C BC ####[facility] [address] [place] [id number]. Elver Gibson WBC 5.7 103/ul Normal 4.0-11.0 [facility] Comment on above: Performed By: #### C BC ####[facility] [address] [place] [id number]. Elver Gibson GLYCOHEMOGLOBIN A1Con 2021 ADA RECOMMENDATION SEE BELOW Normal [facility] Comment on above: Result Comment: ADA RECOMMENDED LIMIT 4.0 - 6.0 ADA THERAPEUTIC TARGET < 7.0 ACTION SUGGESTED > 7.0 Performed By: #### A 1C #### [facility] [address] [address] [address] Elver Gibson Glucose [Mass/Vol] 108 mg/dL Normal [facility] Comment on above: Performed By: #### A 1C #### [facility] [address] [address] [address] Elver Gibson HbA1c (Bld) [Mass fraction] 5.4 % Normal 4.5-6.2 [facility] Comment on above: Performed By: #### A 1C #### [facility] [address] [place] [address] Dr. Elver Gibson LIPID PROFILEon 02-14-2022 CHOL-HDL RATIO NORM SEE BELOW Normal [facility] Comment on above: Result Comment: 3.3 - 4.4 LOW RISK 4.4 - 7.1 AVERAGE RISK 7.1 - 11.0 MODERATE RISK >11.0 HIGH RISK Performed By: #### B PAYROLL SPECIALIST, CMP, LIPID, TSH, URIC #### [facility] [address] [address] [address] Elver Gibson Cholesterol [Mass/Vol] 174 mg/dL Normal <=200 [facility] Comment on above: Performed By: #### B PAYROLL SPECIALIST, CMP, LIPID, TSH, URIC #### [facility] [address] [address] [address] Elver Gibson Cholesterol in HDL [Mass/Vol] 63 mg/dL Critically high 40-60 [facility] Comment on above: Performed By: #### B PAYROLL SPECIALIST, CMP, LIPID, TSH, URIC #### [facility] [address] [address] [address] Elver Gibson Cholesterol in LDL [Mass/Vol] 100.4 mg/dL Normal [facility] Comment on above: Performed By: #### B PAYROLL SPECIALIST, CMP, LIPID, TSH, URIC #### [facility] [address] [address] [address] Elver Gibson Cholesterol.total/C holesterol in HDL [Mass ratio] 2.8 {ratio} Normal [facility] Comment on above: Performed By: #### B PAYROLL SPECIALIST, CMP, LIPID, TSH, URIC #### [facility] [address] [address] [address] Elver Gibson HDL NORMAL > or = 60 mg/dl - LO W CARDIOVASCULAR RISK <40 mg/dl - HIGH CARDIOVASCULAR RISK Normal [facility] Comment on above: Performed By: #### B PAYROLL SPECIALIST, CMP, LIPID, TSH, URIC #### [facility] [address] [address] [address] Elver Gibson LDL CALC NORMAL SEE BELOW Normal [facility] Comment on above: Result Comment: <100 mg/dl OPTIMAL 100 - 129 mg/dl NEAR OR ABOVE OPTIMAL 130 - 159 mg/dl BORDERLINE HIGH 160 - 189 mg/dl HIGH >190 mg/dl VERY HIGH Performed By: #### B PAYROLL SPECIALIST, CMP, LIPID, TSH, URIC #### [facility] [address] [place] [address] Dr. Elver Gibson Triglyceride [Mass/Vol] 53 mg/dL Normal <=150 [facility] Comment on above: Performed By: #### B PAYROLL SPECIALIST, CMP, LIPID, TSH, URIC #### [facility] [address] [address] [address] Elver Gibson VLDL CALC 10.6 mg/dL Normal [facility] Comment on above: Performed By: #### B PAYROLL SPECIALIST, CMP, LIPID, TSH, URIC #### [facility] [address] [place] [address] Dr. Elver Gibson PROF 14(COMP METB)on 022 Albumin [Mass/Vol] 3.7 g/dL Normal 3.4-5.0 [facility] Comment on above: Performed By: #### B PAYROLL SPECIALIST, CMP, LIPID, TSH, URIC #### [facility] [address] [place] [address] Dr. Elver Gibson Albumin/Globulin [Mass ratio] 1.1 {ratio} Normal [facility] Comment on above: Performed By: #### B PAYROLL SPECIALIST, CMP, LIPID, TSH, URIC #### [facility] [address] [place] [address] Dr. Elver Gibson ALP [Catalytic activity/Vol] 64 U/L Normal 46-116 [facility] Comment on above: Performed By: #### B PAYROLL SPECIALIST, CMP, LIPID, TSH, URIC #### [facility] [address] [address] [address] Elver Gibson ALT [Catalytic activity/Vol] 27 U/L Normal 16-63 [facility] Comment on above: Performed By: #### B PAYROLL SPECIALIST, CMP, LIPID, TSH, URIC #### [facility] [address] [place] [address] Dr. Elver Gibson Anion gap [Moles/Vol] 9.7 mmol/L Normal [facility] Comment on above: Performed By: #### B PAYROLL SPECIALIST, CMP, LIPID, TSH, URIC #### [facility] [address] [place] [address] Dr. Elver Gibson AST [Catalytic activity/Vol] 30 U/L Normal 15-37 [facility] Comment on above: Performed By: #### B PAYROLL SPECIALIST, CMP, LIPID, TSH, URIC #### [facility] [address] [place] [address] Dr. Elver Gibson Bilirubin [Mass/Vol] 0.7 mg/dL Normal 0.2-1.0 [facility] Comment on above: Performed By: #### B PAYROLL SPECIALIST, CMP, LIPID, TSH, URIC #### [facility] [address] [place] [address] Dr. Elver Gibson Calcium [Mass/Vol] 8.9 mg/dL Normal 8.5-10.1 [facility] Comment on above: Performed By: #### B PAYROLL SPECIALIST, CMP, LIPID, TSH, URIC #### [facility] [address] [place] [address] Dr. Elver Gibson Chloride [Moles/Vol] 104 mmol/L Normal 98-107 [facility] Comment on above: Performed By: #### B PAYROLL SPECIALIST, CMP, LIPID, TSH, URIC #### [facility] [address] [place] [address] Dr. Elver Gibson CO2 [Moles/Vol] 31.8 mmol/L Normal 21.0-32.0 [facility] Comment on above: Performed By: #### B PAYROLL SPECIALIST, CMP, LIPID, TSH, URIC #### [facility] [address] [place] [address] Dr. Elver Gibson Creatinine [Mass/Vol] 1.19 mg/dL Normal 0.70-1.30 [facility] Comment on above: Performed By: #### B PAYROLL SPECIALIST, CMP, LIPID, TSH, URIC #### [facility] [address] [place] [address] Dr. Elver Gibson EGFR-AF NIGERIEN >60 Normal >=60 [facility] Comment on above: Performed By: #### B PAYROLL SPECIALIST, CMP, LIPID, TSH, URIC #### [facility] [address] [place] [address] Dr. Elver Gibson EGFR-NON AF NIGERIEN 59 mL/min/1.73m2 Critically low >=60 [facility] Comment on above: Performed By: #### B PAYROLL SPECIALIST, CMP, LIPID, TSH, URIC #### [facility] [address] [place] [address] Dr. Elver Gibson Globulin (S) [Mass/Vol] 3.4 g/dL Normal [facility] Comment on above: Performed By: #### B PAYROLL SPECIALIST, CMP, LIPID, TSH, URIC #### [facility] [address] [place] [address] Dr. Elver Gibson Glucose [Mass/Vol] 97 mg/dL Normal 74-106 [facility] Comment on above: Performed By: #### B PAYROLL SPECIALIST, CMP, LIPID, TSH, URIC #### [facility] [address] [place] [address] Dr. Elver Gibson Potassium [Moles/Vol] 4.5 mmol/L Normal 3.5-5.1 [facility] Comment on above: Performed By: #### B PAYROLL SPECIALIST, CMP, LIPID, TSH, URIC #### [facility] [address] [place] [address] Dr. Elver Gibson Protein [Mass/Vol] 7.1 g/dL Normal 6.4-8.2 [facility] Comment on above: Performed By: #### B PAYROLL SPECIALIST, CMP, LIPID, TSH, URIC #### [facility] [address] [place] [address] Dr. Elver Gibson Sodium [Moles/Vol] 141 mmol/L Normal 136-145 [facility] Comment on above: Performed By: #### B PAYROLL SPECIALIST, CMP, LIPID, TSH, URIC #### [facility] [address] [place] [address] Dr. Elver Gibson Urea nitrogen [Mass/Vol] 31.0 mg/dL Critically high 7.0-18.0 [facility] Comment on above: Performed By: #### B PAYROLL SPECIALIST, CMP, LIPID, TSH, URIC #### [facility] [address] [place] [address] Dr. Elver Gibson Urea nitrogen/Creatinine [Mass ratio] 26.1 mg/mg Normal [facility] Comment on above: Performed By: #### B PAYROLL SPECIALIST, CMP, LIPID, TSH, URIC #### [facility] [address] [place] [address] Dr. Elver Gibson TSHon 02-14-2022 TSH 1.829 uIU/mL Normal 0.358-3.740 [facility] Comment on above: Performed By: #### B PAYROLL SPECIALIST, CMP, LIPID, TSH, URIC #### [facility] [address] [place] [address] Dr. Elver Gibson URIC ACID SERUMon 02-14-2022 Urate [Mass/Vol] 7.1 mg/dL Normal 3.5-7.2 [facility] Comment on above: Performed By: #### B PAYROLL SPECIALIST, CMP, LIPID, TSH, URIC #### [facility] [address] [place] [address] Dr. Elver Nicole 09-24-2021 RIGON Telephone (OPHTMN) BRANDI RAHMAN ([id number]) 1940 M Date Time Provider Department 09/24/21 ZULEMA GUO During your visit today, we recorded the following information about you: Mansi Montanez 09/24/2021 3:15 PM Signed Records for Choroidal Nevus referral received by fax. Uploaded to scanned document and sent message to scheduling team to arrange appointment for patient. Allergies As of Date: 09/24/2021 (No Known Allergies) Date Reviewed: 12/14/2015 Reviewed by: Dev Naik - Fully Assessed Reason for Visit: Received Outside Medical Records [[id number]] Cmt: Ho Alberto OD [phone] Fax Prescriptions as of 09/24/2021 - diltiazem CD (CARDIZEM CD, CARTIA XT) 180 mg 24 hr capsule Take 180 mg by mouth as directed. - losartan (COZAAR) 100 mg tablet Take 100 mg by mouth once daily. - CALCIUM CARBONATE/VITAMIN D3 (CALCIUM + D ORAL) Take by mouth. - FLAXSEED OIL (OMEGA 3 ORAL) Take by mouth. - ZNOX/PYG/PUMPK/SAW PAL/PROST (MEN'S SAW PALMETTO FORMULA ORAL) Take by mouth. - FOLIC ACID/MULTIVIT-MIN/LUTEI N (CENTRUM SILVER ORAL) Take by mouth. - selenium 200 mcg cap Take by mouth. - Pyridoxine HCl 200 mg tablet Take 200 mg by mouth once daily. Problem List As Of Date: 09/24/2021 (None) Encounter Status:Closed by MANSI MONTANEZ on 09/24/21 Normal [facility] Ambulatory Clinical Summaryo n 02-28-2020 Ambulatory Clinical Summary {[id number] Normal [facility] Ambulatory Clinical Summary {[id number] Normal [facility] Patient Educationon 02-28-20 20 Patient Education Family Medicine Benign Prostatic Hypertrophy The prostate gland is part of the reproductive system of men. A normal prostate is about the size and shape of a walnut. The prostate gland makes a fluid that is mixed with sperm to make semen. This gland surrounds the urethra and is located in front of the rectum and just below the bladder. The bladder is where urine is stored. The urethra is the tube through which urine passes from the bladder to get out of the body. The prostate grows as a man ages. An enlarged prostate not caused by cancer is called benign prostatic hypertrophy (BPH). This is a common health problem in men over age 50. This condition is a normal part of aging. An enlarged prostate presses on the urethra. This makes it harder to pass urine. In the early stages of enlargement, the bladder can get by with a narrowed urethra by forcing the urine through. If the problem gets worse, medical or surgical treatment may be required. This condition should be followed by your caregiver. Longstanding back pressure on the kidneys can cause infection. Back pressure and infection can progress to bladder damage and kidney (renal ) failure. If needed, your caregiver may refer you to a specialist in kidney and prostate disease (urologist ). CAUSES The exact cause is not known. SYMPTOMS ? You are not able to completely empty your bladder. ? Getting up often during the night to urinate. ? Need to urinate frequently during the day. ? Difficultly in starting urine flow. ? Decrease in size and strength of the urine stream. ? Dribbling after urination. ? Pain on urination (more common with infection). ? Inability to pass your water. This needs immediate treatment. DIAGNOSIS These tests will help your caregiver understand your problem: ? Digital rectal exam (PEYTON). In a rectal exam, your caregiver checks your prostate by putting a gloved, lubricated finger into the rectum to feel the back of your prostate gland. This exam detects the size of the gland and abnormal lumps or growths. ? Urinalysis (exam of the urine). This may include a culture if there is concern about infection. ? Prostate Specific Antigen (PSA). This is a blood test used to screen for prostate cancer. It is not used alone for diagnosing prostate cancer. ? Rectal ultrasound (sonogram). This test uses sound waves to electronically produce a picture of the prostate. It helps examine the prostate gland for cancer. TREATMENT Mild symptoms may not need treatment. Simple observation and yearly exams may be all that is required. Medications and surgery are options for more severe problems. Your caregiver can help you make an informed decision for what is best. Two classes of medications are available for relief of prostate symptoms: ? Medications that shrink the prostate. This helps relieve symptoms. ? Uncommon side effects include problems with sexual function. ? Medications to relax the muscle of the prostate. This also relieves the obstruction. ? Side effects can include dizziness, fatigue, lightheadedness, and retrograde ejaculation (diminished volume of ejaculate). Several types of surgical treatments are available for relief of prostate symptoms: ? Transurethral resection of the prostate (TURP). In this treatment, an instrument is inserted through opening at the tip of the penis. It is used to cut away pieces of the inner core of the prostate. The pieces are removed through the same opening of the penis. This removes the obstruction and helps get rid of the symptoms. ? Transurethral incision (TUIP). In this procedure, small cuts are made in the prostate. This lessens the prostates pressure on the urethra. ? Transurethral microwave thermotherapy (TUMT). This procedure uses microwaves to create heat. The heat destroys and removes a small amount of prostate tissue. ? Transurethral needle ablation (TUNA). This is a procedure that uses radio frequencies to do the same as TUMT. ? Interstitial laser coagulation (ILC). This is a procedure that uses a laser to do the same as TUMT and TUNA. ? Transurethral electrovaporization (TUVP). This is a procedure that uses electrodes to do the same as the procedures listed above. Regardless of the method of treatment chosen, you and your caregiver will discuss the options. With this knowledge, you along with your caregiver can decide upon the best treatment for you. SEEK MEDICAL CARE IF: ? You develop chills, fever of 100.5? F (38.1? C), or night sweats. ? There is unexplained back pain. ? Symptoms are not helped by medications prescribed. ? You develop medication side effects. ? Your urine becomes very dark or has a bad smell. SEEK IMMEDIATE MEDICAL CARE IF: ? You are suddenly unable to urinate. This is an emergency. You should be seen immediately. ? There are large amounts of blood or clots in the urine. ? Your urinary problems become unmanageable. ? You develop lightheadedness, severe dizz (more content not included)... Normal [facility] Urology Office/Clinic Noteon 02-28-2020 Urology Office/Clinic Note Chief Complaint 1 year with PSA Mr. Rahman is a 79-year-old gentleman with a history of renal calculi. He also has a history of prostatic hyperplasia and states he is voiding without any difficulty at this time. He is here today to review his most recent KUB x-ray. HPI Staff Pt is here for 1 year with PSA. Previous dx of BPH with urinary obstruction, kidney stone, nocturia, frequency and former smoker. Current PSA done 12/29/2019 is 0.31. Previous PSA done 12/27/2018 was 0.32. Dysuria: no Incomplete bladder emptying: no Hematuria: no Frequency: no Urgency: no Nocturia: 1-2x Stream: moderate with hesitancy once in a while Leaking: no Post void dripping: no Wearing pads/ Depends: no Urge incontinence: no Stress incontinence: no Incontinence without Sensory Awareness: no Abdominal pain: no Flank pain: no Sexual complaints: no History of Present Illness Reviewed UA and PSA. There have been no associated fever, chills, flank pain or blood in the urine. Pt. denies any pain/burning with urination at this time. Review of Systems PHQ Score Initial Depression Screen Score: 0 ROS - Provider Constitutional: denies weight loss, denies hot flashes. Eyes: denies eye problems. Gastrointestinal: denies nausea, denies vomiting. Cardiovascular: denies chest pain or angina. Integumentary: no dryness Musculoskeletal: denies musculoskeletal symptoms. ENMT: denies otolaryngeal symptoms. Respiratory: no shortness of breath. Heme/Lymph: denies easy bleeding tendency, denies easy bruising tendency. Psychiatric: no confusion, no anxiety. Genitourinary: denies dysuria, denies hematuria, denies discharge, denies urinary frequency, denies urinary hesitancy, denies nocturia, denies incontinence, denies genital sores, denies decreased libido, and denies erectile dysfunction. Physical Exam Vitals & Measurements HR: 60(Peripheral) RR: 16 BP: 169/88 HT: 170.2 cm HT: 170.18 cm WT: 84.1 kg WT: 84.1 kg BMI: 29.04 General Appearance: alert, no distress, well nourished, well developed male. Flank Pain: none. Bladder: nonpalpable. Prostate: normal prostate, estimated weight 40 gms, no hard nodule observed. Assessment/Plan This patient is a stable PSA and KUB shows no evidence of any new stones. Patient is voiding without any difficulty at this point. He is not on any medications from my office. We will plan to see him back in the office in 1 year with another KUB and another PSA blood test. He is been instructed to contact our office if his voiding pattern should change. 1. BPH with urinary obstruction (N40.1: Benign prostatic hyperplasia with lower urinary tract symptoms) Pt. is not on any BPH meds. at this time and is doing well overall w/ his urination w/ no bothersome symptoms. Most current PSA done 12/29/2019 with a result of 0.31 compared to 0.32 on 12/2018. All questions/concerns were discussed. Pt. to call the office if heencounters any issues prior. Pt. acknowledges understanding. F/u in 1 yr. w/ KUB and PSA. 2. Kidney stone (N20.0: Calculus of kidney) Pt. denies any stone issues at this time. No recent imaging. Former smoker (Z87.891: Personal history of nicotine dependence) I have reviewed the previous health record information and history for this pt. from Dr. Arriaza. Follow-up With When Contact Information Arsalan Ryder MD, [place] [address] Additional Instructions: 1yr. w/ KUB and PSA Patient Education Benign Prostatic Hypertrophy I, Marichuy Hernández , personally scribed for Dr. Arriaza on 02/28/2020 10:21:00. . Documentation recorded by the scribe, Marichuy Hernández, accurately reflects the services(s) I performed and decisions made by me. Authenticated by Dr. Arriaza on 02/28/2020 10:32:42. Problem List/Past Medical History Ongoing BPH with urinary obstruction Former smoker Frequent urination History of kidney stones Kidney stone Nocturia Historical No qualifying data Procedure/Surgical History Cataract, Colectomy, Hemorrhage, Knee replacement, Lithotripsy, Tonsillectomy. Medications Centrum Silver, Oral, Daily diltiazem 5 mg/mL intravenous solution, IV, Once losartan, Oral, Daily [place]-3 Osteo Bi-Flex selenium, Oral, Daily Vitamin C, Daily Allergies No Known Medication Allergies Social History Alcohol Current, 1-2 times per week, 03/01/2019 Tobacco Never (less than 100 in lifetime) Tobacco Use:. Never Smokeless Tobacco Use:., 03/01/2019 Family History Breast cancer: Sister. Lab Results Test Name Test Result Date/Time PSA, External 0.31 ng/mL 12/29/2019 12:54 EDT PSA, External 0.32 ng/mL 12/27/2018 07:06 EDT Ambulatory Point of Care Results Bilirubin Urine Dipstick: Negative (02/28/20 09:47:00) Blood Urine Dipstick: Negative (02/28/20 09:47:00) Glucose Urine Dipstick: Negative (02/28/20 09:47:00) Ketones Urine Dipstick: Negative (09 (more content not included)... Normal [facility] Comment on above: Result Comment: Elec tronically Signed By: Arsalan Ryder MD, Roger Agosto\.br\Date and Time Signed: 02/28/20 10:32 EDT\.br\Electronically Co-Signed By: Marichuy Hernández MA\.br\Date and Time Co-Signed: 02/28/20 10:21 EDT No Panel Information [facility] Vital Signs Date Time Vital Sign Value Performing Clinician Facility 01-28-2023 13:33-0400 Body height 167.64 cm Samantha Ziegler [employer] Phone: [facility] Amina DO Work Phone: 01-28-2023 13:33-0400 Body mass index (BMI) [Ratio] 27.92 kg/m2 [employer] Phone: [facility] Amina DO Work Phone: 01-28-2023 13:33-0400 Body surface area Derived from formula 1.88 m2 SamanthaYones Phone: [facility] Amina DO Work Phone: 01-28-2023 13:33-0400 Body weight 78.47 kg Samantha M Hoy Work Phone: [facility] 250 DO Work Phone: 01-28-2023 13:33-0400 Diastolic blood pressure 92 mm[Hg] Samantha M Hoy Work Phone: [facility] 250 DO Work Phone: 01-28-2023 13:33-0400 Diastolic blood pressure 90 mm[Hg] Samantha M Hoy Work Phone: [facility] 250 DO Work Phone: 01-28-2023 13:33-0400 Diastolic blood pressure 80 mm[Hg] Samantha M Hoy Work Phone: [facility] 250 DO Work Phone: 01-28-2023 13:33-0400 Heart rate 84 /min Samantha M Hoy Work Phone: [facility] 250 DO Work Phone: 01-28-2023 13:33-0400 Systolic blood pressure 162 mm[Hg] Samantha M Hoy Work Phone: [facility] 250 DO Work Phone: 01-28-2023 13:33-0400 Systolic blood pressure 152 mm[Hg] Samantha M Hoy Work Phone: [facility] 250 DO Work Phone: 01-28-2023 13:33-0400 Systolic blood pressure 124 mm[Hg] Samantha M Hoy Work Phone: [facility] 250 DO Work Phone: 01-28-2023 13:33-0400 91 1 Samantha M Hoy Work Phone: [facility] 250 DO Work Phone: Comment on above: PULRateLy 01-28-2023 13:33-0400 84 1 Samantha M Hoy Work Phone: [facility] 250 DO Work Phone: Comment on above: PULRateSit 01-28-2023 13:33-0400 90 1 Samantha M Hoy Work Phone: [facility] 250 DO Work Phone: Comment on above: PULRateSt 01-28-2023 13:28-0400 Body height 167.64 cm Samantha M Hoy Work Phone: [facility] 250 DO Work Phone: 01-28-2023 13:28-0400 Body mass index (BMI) [Ratio] 27.92 kg/m2 Samantha M Hoy Work Phone: [facility] 250 DO Work Phone: 01-28-2023 13:28-0400 Body surface area Derived from formula 1.88 m2 Samantha M Hoy Work Phone: [facility] 250 DO Work Phone: 01-28-2023 13:28-0400 Body weight 78.47 kg Samantha M Hoy Work Phone: [facility] 250 DO Work Phone: 01-28-2023 13:28-0400 Diastolic blood pressure 90 mm[Hg] Samantha M Hoy Work Phone: [facility] 250 DO Work Phone: 01-28-2023 13:28-0400 Heart rate 91 /min Samantha M Hoy Work Phone: [facility] 250 DO Work Phone: 01-28-2023 13:28-0400 Systolic blood pressure 152 mm[Hg] Samantha M Hoy Work Phone: [facility] 250 DO Work Phone: 12-01-2022 13:03-0400 Diastolic blood pressure 60 mm[Hg] Samantha M Hoy Work Phone: [facility]Pmalkgtfkg-Twi [place] 250 DO Work Phone: 12-01-2022 13:03-0400 Systolic blood pressure 120 mm[Hg] Samantha Toney Hoy Work Phone: DN-Camsnqapzx-Ygz [place] 250 DO Work Phone: 12-01-2022 12:48-0400 Body height 167.64 cm Samantha Toney Hoy Work Phone: MH-Tdtgnlhdxq-Pde [place] 250 DO Work Phone: 12-01-2022 12:48-0400 Body mass index (BMI) [Ratio] 28.41 kg/m2 Samantha Ziegler Hoy Work Phone: VO-Yyhhgzadas-Mzl [place] 250 DO Work Phone: 12-01-2022 12:48-0400 Body surface area Derived from formula 1.89 m2 Samantha Toney Hoy Work Phone: QS-Adiyisoolb-Uhu [place] 250 DO Work Phone: 12-01-2022 12:48-0400 Body weight 79.83 kg Samantha Ziegler Hoy Work Phone: AR-Usyqbybiyt-Jeq [place] 250 DO Work Phone: 12-01-2022 12:48-0400 Diastolic blood pressure 60 mm[Hg] Samantha Toney Hoy Work Phone: LV-Abborthaep-Mqd meño 250 DO Work Phone: 12-01-2022 12:48-0400 Heart rate 76 /min Samantha Toney Hoy Work Phone: BP-Ivdlmpbgqd-Wcq [place] 250 DO Work Phone: 12-01-2022 12:48-0400 Systolic blood pressure 94 mm[Hg] Samantha M Hoy Work Phone: BY-Wwoeuubqrj-Wuq alirezaky 250 DO Work Phone: 11-04-2022 07:53-0400 65 1 Samantha M Hoy Work Phone: [facility] 250 DO Work Phone: Comment on above: [id number] 10-24-2022 10:01-0400 Body height 175.26 cm Samantha M Hoy Work Phone: [facility] 250 DO Work Phone: 10-24-2022 10:01-0400 Body mass index (BMI) [Ratio] 26.58 kg/m2 Samantha M Hoy Work Phone: [facility] 250 DO Work Phone: 10-24-2022 10:01-0400 Body surface area Derived from formula 1.98 m2 Samantha M Hoy Work Phone: [facility] 250 DO Work Phone: 10-24-2022 10:01-0400 Body weight 81.65 kg Samantha M Hoy Work Phone: [facility] 250 DO Work Phone: 10-24-2022 10:01-0400 Diastolic blood pressure 82 mm[Hg] Samantha M Hoy Work Phone: [facility] 250 DO Work Phone: 10-24-2022 10:01-0400 Heart rate 84 /min Samantha M Hoy Work Phone: [facility] 250 DO Work Phone: 10-24-2022 10:01-0400 Systolic blood pressure 144 mm[Hg] Samantha M Hoy Work Phone: [facility] 250 DO Work Phone: Encounters Encounter Date Encounter Type Care Provider Facility Start: 12-25-2023 End: 12-25-2023 ambulatory [facility] Start: 05-25-2023 End: 05-25-2023 ambulatory [facility] Start: 01-28-2023 Patient encounter procedure [facility] Work Phone: Start: 01-28-[address] Deon Weeks heathrosamaria Rasmussen Facility: Start: 12-01-2022 Office outpatient visit 25 minutes Samantha Recio Work Phone: [facility] 250 DO Work Phone: Start: 12-01-[address] Deon Weeks heathrosamaria Rasmussen Facility: Start: 10-31-[address] Deon Weeks heathrosamaria Rasmussen Facility:[id number] Start: 10-31-2022 End: 10-31-2022 ambulatory [facility] Facility:[facility] Start: 10-31-2022 Rx Renewal Samantha Recio Work Phone: [facility] 250 DO Work Phone: Start: 10-27-2022 End: 10-27-2022 ambulatory [facility] Facility:[facility] Start: 10-24-[address] Samantha Recio Facility: Start: 09-16-2022 End: 09-17-[address] SAMANTHA RECIO . Facility:[facility] Start: 09-09-2022 End: 09-10-[address] SAMANTHA RECIO . Facility:[facility] Start: 02-14-2022 End: 02-15-[address] SAMANTHA RECIO . 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 Comment on above: Performed By: #### [facility] ####[place] [place], [place] [address]UoRodolfo Gibson Start: 11-14-2021 End: 11-14-2021 Computerized ophthalmic imaging retina Zulema Guo MD Work Phone: Arthroplasty of knee Samantha M Hemal Work Phone: Cardiac catheterization Edilberto las M Hemal Work Phone: Decompression of med nehemiah nerve Samantha M Hemal Work Phone: Excision of colon Samantha M Hemal Work Phone: Neuroplasty and transposition of median nerve at carpal tunnel Samantha M Hemal Work Phone: Neuroplasty With Transposition Of Ulnar Nerve Samantha M Hemal Work Phone: Tonsillectomy Samantha M Hemal Work Phone: Plan of Treatment Date Care Activity Detail Author Start: 05-20-2023 FUV, Provider: Deon Rasmussen, Status: Pen, Time: 9:10 AM FUV, Provider: Deon Rasmussen, Status: Pen, Time: 9:10 AM [facility]Nltwjna y 250 DO Work Phone: Start: 12-01-2022 FUV, Provider: Deon Rasmussen, Status: Pen, Time: 1:00 PM FUV, Provider: Deon Rasmussen, Status: Pen, Time: 1:00 PM [facility] 250 DO Work Phone: Start: 11-29-2022 End: 05-08-2023 OCT MACULA CIRRUS OU (BOTH EYES) OCT MACULA CIRRUS OU (BOTH EYES) OPHT Imaging Routine Epiretinal membrane (ERM) of both eyes Nevus of choroid of left eye Expected: 11/29/2022, Expires: 05/08/[address] [facility] Work Phone: Comment on above: Expected: 11/29/2022 , Expires: 05/08/2023 Start: 02-06-2022 Influenza vaccination INFLUENZ A (Season Ended) [facility] Start: 08-17-2021 COVID-19 VACCINE (4 - Booster for Moderna series) COVID-19 VACCINE (4 - Booster for Moderna series) [facility] Start: 06-08-2021 ADVANCE DIRECTIVE DISCUSSION ADVANCE DIRECTIVE DISCUSSION [facility] Start: 09-10-2006 DIABETES SCREEN DIABETES SCREEN [facility] Start: 2005 PNEUMOCOCCAL: 65+ (1 - PCV) PNEUMOCOCCAL: 65+ (1 - PCV) [facility] Start: 1990 SHINGRIX VACCINE (1 of 2) SHINGRIX VACCINE (1 of 2) [facility] Start: 09-29-1959 Urine microalbumin profile DTAP,TDAP,TD (1 - Tdap) [facility] Immunizations Immunization Date Immunization Notes Care Provider Glenroy pleitez 04-19-2021 Moderna COVID-19 Vac cine 100 MCG/0.5ML Intramuscular Suspension Samantha [employer] Work Phone: [facility] [employer] 250 DO Work Phone: 2020 Moderna COVID-19 Vac cine 100 MCG/0.5ML Intramuscular Suspension Samantha M Hoy Work Phone: [facility] [employer] 250 DO Work Phone: 08-31-2020 Moderna COVID-19 Vac cine 100 MCG/0.5ML Intramuscular Suspension Samantha M Hoy Work Phone: [facility] [employer] 250 DO Work Phone: 04-07-2017 influenza virus vacc ine, unspecified formulation Samantha M Hoy Work Phone: [facility] [employer] 250 DO Work Phone: 03-25-2016 influenza virus vacc ine, unspecified formulation Samantha M Hoy Work Phone: [facility] [employer] 250 DO Work Phone: 03-17-2016 influenza, high dose seasonal, preservative-free Samantha M Hoy Work Phone: [facility] 250 DO Work Phone: Payers Date Payer Category Payer Self-pay 2020 Unknown MMO MMO MEDICARE SUPPLEMENT [id number] 2020-Present [phone] [address] [place] [address] Indemnity [id number] 1959 Medicare [id number] 1959 Unknown [id number] 1940 Unknown [id number] 1940 Unknown [id number] 1940 Unknown [id number] 1940 Unknown [id number] 1940 Unknown [id number] 1940 Unknown [id number] 1940 Unknown [id number] 1940 Unknown [id number] 1940 Unknown [id number] Unknown Unknown [id number] Unknown [id number] Social History Date Type Detail Facility Start: 12-14-2015 Tobacco smoking stat us NHIS Never smoked tobacco [facility] Start: 12-14-2015 Tobacco use and exposure Smokeless tobacco non-user [facility] Start: 11-14-2021 Alcohol intake Current drinke r of alcohol (finding) [facility] Start: 12-14-2015 History SDOH Alcohol Comment on occ [facility] Start: 1940 Sex Assigned At Not on file C [facility] Never a smoker Never a smoker [facility] 250 DO Work Phone: Comment on above: COFFEE DAILY; Progress note 11-14-2021 Note Date & Type Note Facility 11-14-2021 Note HNO ID: [id number] Author: Zulema Guo MD Service: ? Author Type: Physician Type: Progress Notes Filed: 11/14/2021 10:16 AM Note Text: New patient to Dr. Guo Last seen with Dr. 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 Alberto Follow-up 6 months for exam, OCT and fundus photos left eye I have confirmed and edited as necessary the relevant ophthalmic history, ROS, and the neuro exam findings as obtained by others. I have discussed the case and the management of this patient's care with the Resident/Fellow, if applicable. I also have reviewed and agree with the assessment and plan as stated above and agree with all of its relevant components. Zulema Guo MD [facility] History of Present illness Narrative 11-14-2021 Zulema Guo MD - 11/14/2021 9:50 AM EDT Note Date & Type Note Facility 11-14-2021 History of Presen t illness Narrative New patient to Dr. Guo Last seen with Dr. 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 Alberto Follow-up 6 months for exam, OCT and fundus photos left eye I have confirmed and edited as necessary the relevant ophthalmic history, ROS, and the neuro exam findings as obtained by others. I have discussed the case and the management of this patient's care with the Resident/Fellow, if applicable. I also have reviewed and agree with the assessment and plan as stated above and agree with all of its relevant components. 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 Epiretinal membrane (ERM) of both eyes documented in this encounter [facility] Summary Purpose Family History No Family History Records FoundUnknown Family Member Name Dates Details No pertinent family history: Mother(V49.89, Z78.9) Status:Active Family history of malignant neoplasm: Other(V16.9, Z80.9) Status:Active Unknown Family Member Name Dates Details Family history of malignant neoplasm: Other(V16.9, Z80.9) Status:Active No pertinent family history: Mother(V49.89, Z78.9) Status:Active Unknown Family Member Name Dates Details Family history of malignant neoplasm: Other(V16.9, Z80.9) Status:Active No pertinent family history: Mother(V49.89, Z78.9) Status:Active Advance Directives No Advanced Directives Records FoundNo Advanced Directives Records FoundNo Advanced Directives Records FoundNo Advanced Directives Records FoundNo Advanced Directives Records FoundNo Advanced Directives Records FoundNo Advanced Directives Records Found Chief Complaint * BRANDI JOSIAH is being seen for results. * Patient is in the office with his for follow-up after having SHARON guided recently to assess mitral valve pathology. The SHARON demonstrated no indication of mitral valve prolapse but moderate degreeof regurgitation. The rest of the study was unremarkable. He is currently asymptomatic and has chronic atrial fibrillation managed with Cardizem for control and Xarelto for anticoagulation. We added indapamide last visit and his pressures under control at present time. His heart rate is controlled on diltiazem. He has active lifestyle and currently has no complaint. I revisited the issue of mitral valve pathology with the patient and his . Reassurances were provided for the time being. * Assessment/recommendations: * 1 persistent atrial fibrillation with controlled rate. Managed by diltiazem and Xarelto with a strategy of rate control anticoagulation. He has significant dilated left atrium therefore attempt to restore and maintain sinus rhythm will be futile and especially since the patient has no symptoms related to atrial fibrillation. * 2 moderate mitral regurgitation that is due to primary valve disease without prolapse confirmed by SHARON. Asymptomatic and will continue to follow-up noninvasively every 2 to 3 years. Reassurances wereprovided * 3 hypertension, currently under control, no changes are needed. * 4 high risk medication use with anticoagulation to be monitored * 5 significant bilateral atrial enlargement on recent echocardiogram to be monitored * 6 overweight, encouraged weight control with low-calorie diet * 7 high risk medication with anticoagulants to be monitored closely. * Prior catheterization 2019 revealed normal coronary * Patient in the office today for EKG due to stoping the Dilitazem for low bp readings and needing tocheck HR for PAF per Dr. Deon Rasmussen MD * Patient states that he has been holding his diltazem since 01/14 and has been monitoring his BP and HR at home on his home monitor and HR has been averaging 76-84 ( scanned to chart for review) He denies any symptoms of lightheaded or dizziness since stopping the medication. * Reviewed with Genevieve Negrete RN * TO Dr. Deon Rasmussen MD Additional Source Comments (unrecognized sect ion and content) No Status Records FoundNo Status Records FoundNo Status Records FoundNo Status Records FoundNo Status Records FoundNo Status Records FoundNo Status Records Found INFORMATION SOURCE (unrecogn ized section and content) DATE CREATED AUTHOR [facility]/19/2021 [facility] DATE CREATED AUTHOR AUTHOR'S ORGANIZ ATION 11/14/2021 [facility] DATE CREATED AUTHOR AUTHOR'S ORGANIZ ATION 09/22/2022 [facility] DATE CREATED AUTHOR AUTHOR'S ORGANIZ ATION 11/16/2022 [facility] DATE CREATED AUTHOR AUTHOR'S ORGANIZ ATION 12/02/2022 [employer] DATE CREATED AUTHOR AUTHOR'S ORGANIZ ATION 01/29/2023 [facility] DATE CREATED AUTHOR AUTHOR'S ORGANIZ ATION 12/28/2023 [facility] Source Comments (unrecognize d section and content) In the event this informatio n is protected by the Federal Confidentiality of Alcohol and Drug Abuse Patient Records regulations: The Federal rules restrict any use of the information to criminally investigate or prosecute any alcohol or drug abuse patient.[facility] Reason for Visit (unrecogniz ed section and content) Reason Comments Epiretinal Membrane Follow Up OU Choroidal nevus of left eye Care Teams (unrecognized sec tion and content) 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 This clinical summary was aggregated from multiple sources. Caution should be exercised in using it in the provision of clinical care. This summary normalizes information from multiple sources, and as a consequence, information in this document may materially change the coding, format and clinical context of patient data. In addition, data may be omitted in some cases. CLINICAL DECISIONS SHOULD BE BASED ON THE PRIMARY CLINICAL RECORDS. [employer] [facility]. provides no warranty or guarantee of the accuracy or completeness of information in this document.
--- NOTE | 2023-12-29 10:51 | XR_ITS ---
The [address] [address] Patient Name: BRANDI RAHMAN MRN: [id number] date: 1940 Sex: M Assigned Patient Location: LAB Current Patient Location: LAB Accession/Order Number: [id number] Exam Date: 12/29/2023 10:55 Report Date: 12/29/2023 12:30 At the request of: SAMANTHA MAYA Procedure: XR chest 2V EXAM: XR chest 2V HISTORY: Dyspnea, Left Ventricular Hypertrophy, Hypertension COMPARISON: 09/09/2022 TECHNIQUE: Upright PA and lateral chest x-ray FINDINGS: The heart is enlarged with mild prominence of the central pulmonary vasculature. No acute infiltrate, effusion or pneumothorax is identified. Multiple calcified perihilar lymph nodes are present. Degenerative changes are seen in the spine and about the shoulders. XR/XR chest 2V IMPRESSION: Cardiac enlargement without overt cardiac decompensation. A focal infiltrate is not identified. The overall appearance is essentially unchanged. Electronically authenticated by: MARLENE COTTO Date: 12/29/2023 12:30
[2023-12-29 10:54] LABS: Basophils Percent Auto 0.6 % (0.2-2.0); Eosinophils Percent Auto 0.6 % (0.9-7.0); Hematocrit 43.6 % (42.0-54.0); Hemoglobin 14.6 g/dL (14.0-18.0); Immature Granulocytes Abs Auto 0.01 10^3/uL (0.00-0.03); Immature Granulocytes Pct Auto 0.2 % (0.0-0.5); Lymphocytes Absolute Auto 0.9 10^3/uL (1.2-3.8); Lymphocytes Percent Auto 14.8 % (20.5-60.0); Mean Corpuscular HGB Conc 33.5 g/dL (29.9-35.2); Mean Corpuscular Hemoglobin 35.3 pg (25.9-34.0); Mean Corpuscular Volume 105.3 fL (80.0-94.0); Mean Platelet Volume 10.2 fL (9.5-13.5); Monocytes Absolute Auto 0.7 10^3/uL (0.3-0.8); Monocytes Percent Auto 10.4 % (1.7-12.0); Neutrophils Absolute Auto 4.7 10^3/uL (1.4-6.5); Neutrophils Percent Auto 73.4 % (43.0-75.0); Platelet Count 200 10^3/uL (150-450); Red Blood Count 4.14 10^6/uL (4.70-6.10); Red Cell Distribution Width 14.6 % (11.0-15.0); White Blood Count 6.3 10^3/uL (4.0-11.0)
[2023-12-29 11:38] LABS: Alanine Aminotransferase 33 U/L (16-63); Albumin Level 3.7 g/dL (3.4-5.0); Alkaline Phosphatase 62 U/L (46-116); Anion Gap 11.4; Aspartate Amino Transferase 42 U/L (15-37); BUN Creatinine Ratio 24.8; Bilirubin Total 1.6 mg/dL (0.2-1.0); Calcium 9.3 mg/dL (8.5-10.1); Carbon Dioxide 32.6 mmol/L (21.0-32.0); Chloride 100 mmol/L (98-107); Estimated GFR (African America 51 (>=60); Estimated GFR (Non-African Ame 42 (>=60); Globulin 3.8 g/dL; Glucose 130 mg/dL (74-106); Magnesium 1.9 mg/dL (1.8-2.4); Sodium 140 mmol/L (136-145); Thyroid Stimulating Hormone 2.431 uIU/mL (0.358-3.740); Total Protein 7.5 g/dL (6.4-8.2)
[2023-12-29 12:07] LABS: Free T4 1.17 ng/dL (0.76-1.46)
[2023-12-30 04:07] LABS: CA 19-9 13 U/mL (0-35)
== END 2023-12-29 10:36 | disposition home or self-care (01) ==
LOC: LAB 10:37
PROVIDERS: PCP Family Medicine; Visit Provider Family Medicine
DX: E03.9 Hypothyroidism, unspecified (principal); I50.30 Unspecified diastolic (congestive) heart failure; I11.0 Hypertensive heart disease with heart failure; R06.00 Dyspnea, unspecified; R53.83 Other fatigue
CPT/HCPCS: 36415; 71046; 80053; 83735; 83880; 84439; 84443; 85025; 86301

== ENCOUNTER 2023-12-29 17:24 | Observation (INO) | payer MEDICARE, OTHER, SELFPAY ==
[2023-12-29] VITALS (14 sets, daily range): BP systolic 110–144; BP diastolic 74–104; PULSE 57–104; TEMP 36.3–36.6; O2SAT 91–100; BMI 27.5; BMI 27.1
--- OUTSIDE RECORDS SUMMARY | 2023-12-29 17:36 | XMS_ITS | CCD ---
Author Organization [facility] CliniSymo Care Team Providers Care Government Affairs Fellow Name Role Phone Levi Dumont Primary Care Provider [phone] ., [address] SINGH Admitting Unavailable HOY [...] Rasmussen MD Start : 24-Oct-2022 Active Saw Cayuta 450 MG Oral Capsule (3 sources) Saw Cayuta 450 MG Oral Capsule TAKE DIRECTED. Quantity: [...] 02-21-2022 Episodic Other aftercare (2 sources) Other half-way (current) drug therapy; Translations: [Other intermediate teacher (current) drug therapy] Onset: 03-18-2023 Episodic Other [...] 500 MG CAPSTAKE 1 CAPSULE Daily Saw Cayuta 450 MG Oral CapsuleTAKE DIRECTED. Selenium 200 [...] Vital Signs Recorded: 01Dec2022 01:03PMRecorded: 01Dec2022 12:48PM [id number], RUE, Sitting Orlacpopu6756, RUE, Sitting Heart Rate76, L Radial Height5 ft 6 in Apseze445 lb BMI Enmstovbqu47.41 kg/m2 BSA Calculated1.89 Tobacco Useb) No Falls Screening (Age 18+)a) No falls within the (more content not included)... Normal [place] [employer] Tobacco Screening.on 023 Fall risk assessment a) No falls within the last year [facility]- [place] 250 DO Work Phone: Tobacco use status [facility] b) No [facility] [place] 250 DO Work Phone: ECH echo transesophageal SHARON on 10-31-2022 [facility] echo transesophageal SHARON [facility] Main [place] [address] [place] [address] Echocardiogram Signed Patient: Brandi Rahman MR#: [id number] 9 : 1940 Acct:[id number] Age/Sex: 82 / M ADM Date: 10/31/22 Loc: [place] Room: Type: [facility] Attending Dr: Deon Rasmussen MD Ordering Provider: Deon Rasmussen MD, [facility] Date of Service: 10/31/22/ ECH/ECH echo transesophageal SHARON: DYSPNEA, MR, A-FIB. Copies to: Deon Rasmussen MD, [facility] Reason For Study: DYSPNEA, MR, A-FIB. [...] 10/31/22 1247 Signed By: Deon Rasmussen MD, [facility] 10/31/22 1605 Normal [facility] Basic Metabolic Panelon 10-07 Anion gap [Moles/Vol] 9.3 mmol/L Normal 6.0-15.0 [facility] Comment on above: Performed By: #### B MP, CBC #### [address] Calcium [Mass/Vol] 9.1 mg/dL Normal 8.6-10.3 [facility] Comment on above: Result Comment: PERF ORMED BY: [place] [address] PATHOLOGIST SCOUTS LILLIAN TILLMAN M.D. Performed By: #### B MP, CBC #### [facility] [address] [place] [address] [place] Chloride [Moles/Vol] 101 mmol/L Normal 98-107 [facility] [place] [facility] Comment on above: Performed By: #### B MP, CBC #### [facility] [address] [place] [address] [place] CO2 [Moles/Vol] 34.3 mmol/L High 21.0-31.0 [facility] Comment on above: Performed By: #### B MP, CBC #### [facility] [address] Creatinine [Mass/Vol] 1.30 mg/dL Normal 0.70-1.30 [facility] [place] [facility] Comment on above: Performed By: #### B MP, CBC #### [facility] [address] [place] [address] [place] GFR/1.73 sq M.predicted MDRD (S/P/Bld) [Vol rate/Area] 54.849 mL/min/{1.73_m2} Normal [facility] Comment on above: Performed By: #### B MP, CBC #### [facility] [address] Glucose [Mass/Vol] 89 mg/dL Normal 70-100 [facility] Comment on above: Result Comment: [facility] Glucose Reference Range is dependent on time and content of last meal. Glucose of more than 200 mg/dL in a nonstressed, ambulatory subject supports the diagnosis of Diabetes Mellitus. ADA recommended reference range Performed By: #### B MP, CBC #### [address] Potassium [Moles/Vol] 4.6 mmol/L Normal 3.5-5.1 [facility] [place] [facility] Comment on above: Performed By: #### B MP, CBC #### [address] Sodium [Moles/Vol] 140 mmol/L Normal 136-145 [facility] Comment on above: Performed By: #### B MP, CBC #### [address] Urea nitrogen [Mass/Vol] 29 mg/dL High 7-25 [facility] [place] [facility] Comment on above: Performed By: #### B MP, CBC #### [address] Complete Blood Count Auto Di ffon 10-27-2022 Basophils (Bld) [#/Vol] 0.1 10*3/uL Normal 0.0-0.2 [facility] [place] [facility] Comment on above: Result Comment: PERF ORMED BY: [place] [address] PATHOLOGIST SCOUTS LILLIAN TILLMAN M.D. Performed By: #### B MP, CBC #### [address] [place] [address] [place] Basophils/100 WBC (Bld) 1.1 % Normal . [facility] Comment on above: Performed By: #### B MP, CBC #### [address] Eosinophils (Bld) [#/Vol] 0.2 10*3/uL Normal 0.0-0.45 [facility] Comment on above: Performed By: #### B MP, CBC #### [address] Eosinophils/100 WBC (Bld) 3.2 % Normal . [facility] Comment on above: Performed By: #### B MP, CBC #### [address] Erythrocyte distribution width (RBC) [Ratio] 14.4 % Normal 12.0-14.8 [facility] Comment on above: Performed By: #### B MP, CBC #### [address] Hematocrit (Bld) [Volume fraction] 43.0 % Normal 38.8-50.0 [facility] Comment on above: Performed By: #### B MP, CBC #### [address] Hemoglobin (Bld) [Mass/Vol] 14.4 g/dL Normal 13.0-17.0 [facility] Comment on above: Performed By: #### B MP, CBC #### [address] Lymphocytes (Bld) [#/Vol] 1.0 10*3/uL Normal 1.00-4.8 [facility] Comment on above: Performed By: #### B MP, CBC #### [address] Lymphocytes/100 WBC (Bld) 21.1 % Normal . [facility] Comment on above: Performed By: #### B MP, CBC #### [address] MCH (RBC) [Entitic mass] 33.8 pg Normal 27.5-35.2 [facility] Comment on above: Performed By: #### B MP, CBC #### [address] MCV (RBC) [Entitic vol] 100.8 fL Normal 83.5-101 [facility] Comment on above: Performed By: #### B MP, CBC #### [address] Mean Corpuscular HGB Conc 33.5 g/dL Normal 32.5-35.6 [facility] Comment on above: Performed By: #### B MP, CBC #### [address] Monocytes (Bld) [#/Vol] 0.6 10*3/uL Normal 0.0-0.8 [facility] Comment on above: Performed By: #### B MP, CBC #### [address] Monocytes/100 WBC (Bld) 11.8 % Normal . [facility] Comment on above: Performed By: #### B MP, CBC #### [address] Neutrophils (Bld) [#/Vol] 2.9 10*3/uL Normal 1.8-7.7 [facility] Comment on above: Performed By: #### B MP, CBC #### [address] Neutrophils/100 WBC (Bld) 62.8 % Normal . [facility] Comment on above: Performed By: #### B MP, CBC #### [address] NRBC% 0.1 /100{WBC} Normal 0-0.5 [facility] Comment on above: Performed By: #### B MP, CBC #### [address] Platelet mean volume (Bld) [Entitic vol] 8.0 fL Normal 6.6-10.1 [facility] Comment on above: Performed By: #### B MP, CBC #### [facility] [address] Platelets (Bld) [#/Vol] 213 10*3/uL Normal 150-450 [facility] Comment on above: Performed By: #### B MP, CBC #### [facility] [address] RBC (Bld) [#/Vol] 4.27 10*6/uL Normal 3.90-5.60 [facility] Comment on above: Performed By: #### B MP, CBC #### [facility] [address] WBC (Bld) [#/Vol] 4.7 10*3/uL Normal 4.1-10.5 [facility] Comment on above: Performed By: #### B MP, CBC #### [facility] [address] Office Visit (Cardiology)on 10-24-2022 Follow-up visit [...] in adult Healthy Weight Tips; Status:Complete; Done: [id number] Some eating tips that can help you lose weight.; Status:Complete; Done: [id number] PMH: Paroxysmal atrial fibrillation Start: Indapamide 1.25 MG Oral Tablet; TAKE 1 TABLET ONCE DAILY SocHx: Never a smoker Tobacco Use Screening; Status:Complete; Done: [id number] Unlinked Stop: Eliquis 2.5 MG Oral Tablet [...] time. Had an echocardiogram done recently at [facility] which I have the report reviewed. [...] Medication NameInst (more content not included)... Normal [employer] Tobacco Screening.on 023 Adult depression screening assessment No [facility] [employer] 250 DO Work Phone: Fall risk assessment a) No falls within the last year [facility] 250 DO Work Phone: Tobacco use status [facility] b) No [facility] [employer] 250 DO Work Phone: ECHOCARDIO M/2D COMPLETEon 0 09-16-2022 ECHOCARDIO M/2D COMPLETE Patient: BRANDI RAHMAN Exam Date: 09/16/2022 : 1940 Gender:M Ordering : DR SAMANTHA RECIO . Admission #: [id number] Family : Order #: [id number] CLICK HERE TO VIEW EXAM ECHOCARDIOGRAM REPORT [...] M.D. on 09/16/2022 at 20:23 Normal [facility] BNPon 09-09-2022 Natriuretic peptide B (Bld) [Mass/Vol] 154.0 pg/mL Normal <=1,800.[address] [facility] Comment on above: Performed By: #### T SH, T7, CMP, BNP ####[facility] [address] [place] [address]DrRodolfo Elver Arthur CBC AUTO DIFFon 09-09-2022 BASO # 0.0 103/ul Normal 0.0-0.[address] [facility] Comment on above: Performed By: #### C BC ####[facility] [address] [place] [address]Dr. Elver Gibson Basophils/100 WBC (Bld) 0.6 % Normal 0.2-2.[address] [facility] Comment on above: Performed By: #### C BC ####[facility] [address] [place], [place] [address]Dr. Elver Gibson EO # 0.2 103/ul Normal 0.0-0.[address] [facility] Comment on above: Performed By: #### C BC ####[facility] [address] [place], [place] [address]Dr. Elver Gibson Eosinophils/100 WBC (Bld) 4.1 % Normal 0.9-7.[address] [facility] Comment on above: Performed By: #### C BC ####[facility] [address] [place], [place] [address]Dr. Elver Gibson Erythrocyte distribution width (RBC) [Ratio] 13.5 % Normal 11.0-15.0 [facility] Comment on above: Performed By: #### C BC ####[facility] [address] [place], [place] [address]Dr. Elver Gibson Hematocrit (Bld) [Volume fraction] 42.9 % Normal 42.0-54.[address] [facility] Comment on above: Performed By: #### C BC ####[facility] [address] [place], [place] [address]Dr. Elver Gibson Hemoglobin (Bld) [Mass/Vol] 14.5 g/dL Normal 14.0-18.[address] [facility] Comment on above: Performed By: #### C BC ####[facility] [address] [place], [place] [address]Dr. Elver Gibson IG # 0.01 10e3/ul Normal 0.00-0.[address] [facility] Comment on above: Performed By: #### C BC ####[facility] [address] [place], [place] [address]Dr. Elver Gibson IG % 0.2 % Normal 0.0-0.5 [facility] Comment on above: Performed By: #### C BC ####[facility] [address] [place] [id number] Gibson LYMPH # 1.2 103/ul Normal 1.2-3.8 [facility] Comment on above: Performed By: #### C BC ####[facility] Pp[address]cmgxt[address] [place] [id number]. Elver Gibson Lymphocytes/100 WBC (Bld) 21.8 % Normal 20.5-60.0 [facility] Comment on above: Performed By: #### C BC ####[facility] [address] [place] [address]DrRodolfo Gibson MANUAL DIFF REQ NO Normal [facility] Comment on above: Performed By: #### C BC ####[facility] [address]zokumuxq[address] [place] [phone]. Elver Gibson MCH (RBC) [Entitic mass] 33.4 pg Normal 25.9-34.0 [facility] Comment on above: Performed By: #### C BC ####[facility] [address] [place] [phone]. Elver Gibson MCHC (RBC) [Mass/Vol] 33.8 g/dL Normal 29.9-35.2 [facility] Comment on above: Performed By: #### C BC ####[facility] Kxwgrapjws[address] [place] [phone] Gibson MCV (RBC) [Entitic vol] 98.8 fL Critically high 80.0-94.0 [facility] Comment on above: Performed By: #### C BC ####[facility] [address]bi[address] [place] [phone] Gibson MONO # 0.7 103/ul Normal 0.3-0.8 [facility] Comment on above: Performed By: #### C BC ####[facility] Ak[address]kyqy[address] [place] [phone]. Elver Gibson Monocytes/100 WBC (Bld) 13.3 % Critically high 1.7-12.0 [facility] Comment on above: Performed By: #### C BC ####[facility] [address]mvri[address] [place] [phone]. Elver Gibson NEUT # 3.3 103/ul Normal 1.4-6.5 [facility] Comment on above: Performed By: #### C BC ####[facility] Mwhcs[address]oy[address] [place] [phone]. Elver Gibson Neutrophils/100 WBC (Bld) 60.0 % Normal 43.0-75.0 [facility] Comment on above: Performed By: #### C BC ####[facility] [address]qu[address] [place] [phone]. Elver Gibson Platelet mean volume (Bld) [Entitic vol] 9.5 fL Normal 9.5-13.5 [facility] Comment on above: Performed By: #### C BC ####[facility] [address]cexu[address] [place] [phone]. Elver Gibson PLT 197 103/ul Normal 150-[address] [facility] Comment on above: Performed By: #### C BC ####[facility] L[address]kgxbrzp[address] [place] [phone]. Elver Gibson RBC 4.34 106/ul Critically low 4.70-6.10 [facility] Comment on above: Performed By: #### C BC ####[facility] [address] [place] [phone]. Elver Gibson WBC 5.4 103/ul Normal 4.0-11.[address] [facility] Comment on above: Performed By: #### C BC ####[facility] Vxrbrbjxzd[address] [place] [phone]. Elver Gibson FREE THYROXINE INDEX T7on FTI 2.21 Normal 1.30-4.50 [facility] Comment on above: Performed By: #### T SH, T7, CMP, BNP ####[facility] [address] [place] [phone]. Elver Arthur T3U 35.0 % Normal 33.0-40.0 [facility] Comment on above: Performed By: #### T SH, T7, CMP, BNP ####[facility] [address]awzz[address] [place] [address]Dr. Elver Gibson T4 [Mass/Vol] 6.30 ug/dL Normal 4.50-12.10 [facility] Comment on above: Performed By: #### T SH, T7, CMP, BNP ####[facility] [address] [place] [address]Dr. Elver Gibson PROF 14(COMP METB)on 023 Albumin [Mass/Vol] 3.8 g/dL Normal 3.4-5.0 [facility] Comment on above: Performed By: #### T SH, T7, CMP, BNP ####[facility] [address] [place] [address]Dr. Elver Gibson Albumin/Globulin [Mass ratio] 1.1 {ratio} Normal [facility] Comment on above: Performed By: #### T SH, T7, CMP, BNP ####[facility] [address]hr[address] [place] [address]Dr. Elver Gibson ALP [Catalytic activity/Vol] 74 U/L Normal 46-116 [facility] Comment on above: Performed By: #### T SH, T7, CMP, BNP ####[facility] [address]zm[address] [place] [address]Dr. Elver Gibson ALT [Catalytic activity/Vol] 27 U/L Normal 16-63 [facility] Comment on above: Performed By: #### T SH, T7, CMP, BNP ####[facility] [address] [place] [address]Dr. Elver Gibson Anion gap [Moles/Vol] 10.8 mmol/L Normal [facility] Comment on above: Performed By: #### T SH, T7, CMP, BNP ####[facility] [address]sox[address] [place] [address]Dr. Elver Gibson AST [Catalytic activity/Vol] 30 U/L Normal 15-37 [facility] Comment on above: Performed By: #### T SH, T7, CMP, BNP ####[facility] [address] [place] [address]Dr. Elver Gbison Bilirubin [Mass/Vol] 0.7 mg/dL Normal 0.2-1.0 [facility] Comment on above: Performed By: #### T SH, T7, CMP, BNP ####[facility] [address] [place] [address]Dr. Elver Gibson Calcium [Mass/Vol] 9.3 mg/dL Normal 8.5-10.1 [facility] Comment on above: Performed By: #### T SH, T7, CMP, BNP ####[facility] [address] [place], [place] [address]Dr. Elver Gibson Chloride [Moles/Vol] 104 mmol/L Normal 98-[address] [facility] Comment on above: Performed By: #### T SH, T7, CMP, BNP ####[facility] [address] [place], [place] [address]Dr. Elver Gibson CO2 [Moles/Vol] 31.9 mmol/L Normal 21.0-32.0 [facility] Comment on above: Performed By: #### T SH, T7, CMP, BNP ####[facility] [address] [place], [place] [address]Dr. Elver Gibson Creatinine [Mass/Vol] 1.19 mg/dL Normal 0.70-1.[address] [facility] Comment on above: Performed By: #### T SH, T7, CMP, BNP ####[facility] [address] [place], [place] [address]Dr. Elver Gibson EGFR-AF SCOTTISH >60 Normal >=60 [facility] Comment on above: Performed By: #### T SH, T7, CMP, BNP ####[facility] [address] [place], [place] [address]Dr. Elver Gibson EGFR-NON AF SCOTTISH 59 mL/min/1.73m2 Critically low >=[address] [facility] Comment on above: Performed By: #### T SH, T7, CMP, BNP ####[facility] [address]ks[address] [place], [place] [address]Dr. Elver Gibson Globulin (S) [Mass/Vol] 3.5 g/dL Normal [facility] Comment on above: Performed By: #### T SH, T7, CMP, BNP ####[facility] [address]qsrg[address] [place] [address]Dr. Elver Gibson Glucose [Mass/Vol] 124 mg/dL Critically high 74-106 [facility] Comment on above: Performed By: #### T SH, T7, CMP, BNP ####[facility] [address]uevi[address] [place] [address]Dr. Elver Gibson Potassium [Moles/Vol] 4.7 mmol/L Normal 3.5-5.1 [facility] Comment on above: Performed By: #### T SH, T7, CMP, BNP ####[facility] [address] [place] [address]Dr. Elver Gibson Protein [Mass/Vol] 7.3 g/dL Normal 6.4-8.2 [facility] Comment on above: Performed By: #### T SH, T7, CMP, BNP ####[facility] [address] [place] [address]Dr. Elver Gibson Sodium [Moles/Vol] 142 mmol/L Normal 136-145 [facility] Comment on above: Performed By: #### T SH, T7, CMP, BNP ####[facility] [address] [place] [address]Dr. Elver Gibson Urea nitrogen [Mass/Vol] 27.0 mg/dL Critically high 7.0-18.0 [facility] Comment on above: Performed By: #### T SH, T7, CMP, BNP ####[facility] [address]ylwxbm[address] [place] [address]Dr. Elver Gibson Urea nitrogen/Creatinine [Mass ratio] 22.7 mg/mg Normal [facility] Comment on above: Performed By: #### T SH, T7, CMP, BNP ####[facility] W[address]qrjjon[address] [place] [address]Dr. Elevr Gibson TSHon 09-09-2022 TSH 1.455 uIU/mL Normal 0.358-3.740 [facility] Comment on above: Performed By: #### T SH, T7, CMP, BNP ####[facility] [address]us[address] [place] [address]Dr. Elver Gibson XR CHEST 2 Von 09-09-2022 [...] VAN VUONG Date: 2022-09-09 12:48 Normal [address] [facility] INSULINon 02-15-2022 Insulin 11.3 uIU/mL Normal 2.6-24.[address] [facility] Comment on above: Performed By: #### I NSULIN #### [facility] [address] [place] [address] [address] Elver Gibson T4, T3U, FTI LABCORPon 02-15 Free Thyroxine Index 2.1 Normal 1.2-4.[address] [facility] Comment on above: Performed By: #### T HYLC #### [facility] [address] [place] [address] [address] Elver Gibson T3 Uptake 30 % Normal 24-[address] [facility] Comment on above: Performed By: #### T HYLC #### [facility] [address] [place] [address] [address] Elver Gibson T4 [Mass/Vol] 7.0 ug/dL Normal 4.5-12.0 [facility] Comment on above: Performed By: #### T HYLC #### [facility] [address] [place] [address] [address] Elver Gibson BNPon 02-14-2022 Natriuretic peptide B (Bld) [Mass/Vol] 229.0 pg/mL Normal <=1,800.[address] [facility] Comment on above: Performed By: #### B DEPARTMENTAL BUYER, CMP, LIPID, TSH, URIC #### [facility] [address] [place], [place] [address] Dr. Elver Gibson CBC AUTO DIFFon 02-14-2022 BASO # 0.0 103/ul Normal 0.0-0.1 [facility] Comment on above: Performed By: #### C BC ####[facility] [address]ysc[address] [place] [id number] Gibson Basophils/100 WBC (Bld) 0.7 % Normal 0.2-2.0 [facility] Comment on above: Performed By: #### C BC ####[facility] [address]wtbeg[address] [place] [id number]. Elver Gibson EO # 0.2 103/ul Normal 0.0-0.7 [facility] Comment on above: Performed By: #### C BC ####[facility] F[address]ufooa[address] [place] [phone] Gibson Eosinophils/100 WBC (Bld) 3.9 % Normal 0.9-7.0 [facility] Comment on above: Performed By: #### C BC ####[facility] [address] [place] [phone] Gibson Erythrocyte distribution width (RBC) [Ratio] 13.2 % Normal 11.0-15.0 [facility] Comment on above: Performed By: #### C BC ####[facility] [address]ieu[address] [place] [id number] Gibosn Hematocrit (Bld) [Volume fraction] 42.9 % Normal 42.0-54.[address] [facility] Comment on above: Performed By: #### C BC ####[facility] [address]ymf[address]mx[address] [place] [phone] Gibson Hemoglobin (Bld) [Mass/Vol] 14.2 g/dL Normal 14.0-18.0 [facility] Comment on above: Performed By: #### C BC ####[facility] [address]ovy[address] [place] [phone] Gibson IG # 0.01 10e3/ul Normal 0.00-0.03 [facility] Comment on above: Performed By: #### C BC ####[facility] [address]wnihi[address] [place] [address]DrRodolfo Gibson IG % 0.2 % Normal 0.0-0.5 [facility] Center Comment on above: Performed By: #### C BC ####[facility] [address] [place] [address] [address]DrRodolfo Gibson LYMPH # 1.4 103/ul Normal 1.2-3.8 [facility] Comment on above: Performed By: #### C BC ####[facility] [address] [place] [address]DrRodolfo Gibson Lymphocytes/100 WBC (Bld) 24.0 % Normal 20.5-60.0 [facility] Comment on above: Performed By: #### C BC ####[facility] [address] [place], [place] [address]DrRodolfo Gibson MANUAL DIFF REQ NO Normal [facility] Comment on above: Performed By: #### C BC ####[facility] [address] [place] [id number] Elver Arthur MCH (RBC) [Entitic mass] 33.3 pg Normal 25.9-34.0 [facility] Comment on above: Performed By: #### C BC ####[facility] [address] [place], [place] [address]DrRodolfo Gibson MCHC (RBC) [Mass/Vol] 33.1 g/dL Normal 29.9-35.2 [facility] Comment on above: Performed By: #### C BC ####[facility] [address] [place], [place] [id number] Gibson MCV (RBC) [Entitic vol] 100.7 fL Critically high 80.0-94.0 [facility] Comment on above: Performed By: #### C BC ####[facility] [address] [place] [phone] Gibson MONO # 0.7 103/ul Normal 0.3-0.8 [facility] Comment on above: Performed By: #### C BC ####[facility] [address] [place] [id number]. Elver Gibson Monocytes/100 WBC (Bld) 12.7 % Critically high 1.7-12.0 [facility] Comment on above: Performed By: #### C BC ####[facility] [address] [place] [phone]. Elver Gibson NEUT # 3.3 103/ul Normal 1.4-6.5 [facility] Comment on above: Performed By: #### C BC ####[facility] [address]mv[address] [place] [id number]. Elver Gibson Neutrophils/100 WBC (Bld) 58.5 % Normal 43.0-75.0 [facility] Comment on above: Performed By: #### C BC ####[facility] [address] [place] [id number]. Elver Gibson Platelet mean volume (Bld) [Entitic vol] 9.6 fL Normal 9.5-13.5 [facility] Comment on above: Performed By: #### C BC ####[facility] [address] [place] [id number]. Elver Gibson PLT 183 103/ul Normal 150-450 [facility] Comment on above: Performed By: #### C BC ####[facility] [address] [place] [id number]. Elver Gibson RBC 4.26 106/ul Critically low 4.70-6.10 [facility] Comment on above: Performed By: #### C BC ####[facility] [address] [place] [id number]. Elver Gibson WBC 5.7 103/ul Normal 4.0-11.[address] [facility] Comment on above: Performed By: #### C BC ####[facility] [address] [place] [id number]. Elver Gibson GLYCOHEMOGLOBIN A1Con 2021 ADA RECOMMENDATION SEE BELOW Normal [facility] Comment on above: Result Comment: ADA RECOMMENDED LIMIT 4.0 - 6.0 ADA THERAPEUTIC TARGET < 7.0 ACTION SUGGESTED > 7.0 Performed By: #### A 1C #### [facility] [address] [address] [address] Elver Gibson Glucose [Mass/Vol] 108 mg/dL Normal [facility] Comment on above: Performed By: #### A 1C #### [facility] [address] [address] [address] Elver Gibson HbA1c (Bld) [Mass fraction] 5.4 % Normal 4.5-6.2 [facility] Comment on above: Performed By: #### A 1C #### [facility] [address] [place] [address] Dr. Elver Gibson LIPID PROFILEon 02-14-2022 CHOL-HDL RATIO NORM SEE BELOW Normal [facility] Comment on above: Result Comment: 3.3 - 4.4 LOW RISK 4.4 - 7.1 AVERAGE RISK 7.1 - 11.0 MODERATE RISK >11.0 HIGH RISK Performed By: #### B DEPARTMENTAL BUYER, CMP, LIPID, TSH, URIC #### [facility] [address] [address] [address] Elver Gibson Cholesterol [Mass/Vol] 174 mg/dL Normal <=200 [facility] Comment on above: Performed By: #### B DEPARTMENTAL BUYER, CMP, LIPID, TSH, URIC #### [facility] [address] [address] [address] Elver Gibson Cholesterol in HDL [Mass/Vol] 63 mg/dL Critically high 40-60 [facility] Comment on above: Performed By: #### B DEPARTMENTAL BUYER, CMP, LIPID, TSH, URIC #### [facility] [address] [address] [address] Elver Gibson Cholesterol in LDL [Mass/Vol] 100.4 mg/dL Normal [facility] Comment on above: Performed By: #### B DEPARTMENTAL BUYER, CMP, LIPID, TSH, URIC #### [facility] [address] [address] [address] Elver Gibson Cholesterol.total/C holesterol in HDL [Mass ratio] 2.8 {ratio} Normal [facility] Comment on above: Performed By: #### B DEPARTMENTAL BUYER, CMP, LIPID, TSH, URIC #### [facility] [address] [address] [address] Elver Gibson HDL NORMAL > or = 60 mg/dl - LO W CARDIOVASCULAR RISK <40 mg/dl - HIGH CARDIOVASCULAR RISK Normal [facility] Comment on above: Performed By: #### B DEPARTMENTAL BUYER, CMP, LIPID, TSH, URIC #### [facility] [address] [address] [address] Elver Gibson LDL CALC NORMAL SEE BELOW Normal [facility] Comment on above: Result Comment: <100 mg/dl OPTIMAL 100 - 129 mg/dl NEAR OR ABOVE OPTIMAL 130 - 159 mg/dl BORDERLINE HIGH 160 - 189 mg/dl HIGH >190 mg/dl VERY HIGH Performed By: #### B DEPARTMENTAL BUYER, CMP, LIPID, TSH, URIC #### [facility] [address] [place] [address] Dr. Elver Gibson Triglyceride [Mass/Vol] 53 mg/dL Normal <=150 [facility] Comment on above: Performed By: #### B DEPARTMENTAL BUYER, CMP, LIPID, TSH, URIC #### [facility] [address] [address] [address] Elver Gibson VLDL CALC 10.6 mg/dL Normal [facility] Comment on above: Performed By: #### B DEPARTMENTAL BUYER, CMP, LIPID, TSH, URIC #### [facility] [address] [place] [address] Dr. Elver Gibson PROF 14(COMP METB)on 022 Albumin [Mass/Vol] 3.7 g/dL Normal 3.4-5.0 [facility] Comment on above: Performed By: #### B DEPARTMENTAL BUYER, CMP, LIPID, TSH, URIC #### [facility] [address] [place] [address] Dr. Elver Gibson Albumin/Globulin [Mass ratio] 1.1 {ratio} Normal [facility] Comment on above: Performed By: #### B DEPARTMENTAL BUYER, CMP, LIPID, TSH, URIC #### [facility] [address] [place] [address] Dr. Elver Gibson ALP [Catalytic activity/Vol] 64 U/L Normal 46-[address] [facility] Comment on above: Performed By: #### B DEPARTMENTAL BUYER, CMP, LIPID, TSH, URIC #### [facility] [address] [address] [address] Elver Gibson ALT [Catalytic activity/Vol] 27 U/L Normal 16-63 [facility] Comment on above: Performed By: #### B DEPARTMENTAL BUYER, CMP, LIPID, TSH, URIC #### [facility] [address] [place] [address] Dr. Elver Gibson Anion gap [Moles/Vol] 9.7 mmol/L Normal [facility] Comment on above: Performed By: #### B DEPARTMENTAL BUYER, CMP, LIPID, TSH, URIC #### [facility] [address] [place] [address] Dr. Elver Gibson AST [Catalytic activity/Vol] 30 U/L Normal 15-37 [facility] Comment on above: Performed By: #### B DEPARTMENTAL BUYER, CMP, LIPID, TSH, URIC #### [facility] [address] [place] [address] Dr. Elver Gibson Bilirubin [Mass/Vol] 0.7 mg/dL Normal 0.2-1.0 [facility] Comment on above: Performed By: #### B DEPARTMENTAL BUYER, CMP, LIPID, TSH, URIC #### [facility] [address] [place] [address] Dr. Elver Gibson Calcium [Mass/Vol] 8.9 mg/dL Normal 8.5-10.1 [facility] Comment on above: Performed By: #### B DEPARTMENTAL BUYER, CMP, LIPID, TSH, URIC #### [facility] [address] [place] [address] Dr. Elver Gibson Chloride [Moles/Vol] 104 mmol/L Normal 98-107 [facility] Comment on above: Performed By: #### B DEPARTMENTAL BUYER, CMP, LIPID, TSH, URIC #### [facility] [address] [place] [address] Dr. Elver Gibson CO2 [Moles/Vol] 31.8 mmol/L Normal 21.0-32.0 [facility] Comment on above: Performed By: #### B DEPARTMENTAL BUYER, CMP, LIPID, TSH, URIC #### [facility] [address] [place] [address] Dr. Elver Gibson Creatinine [Mass/Vol] 1.19 mg/dL Normal 0.70-1.[address] [facility] Comment on above: Performed By: #### B DEPARTMENTAL BUYER, CMP, LIPID, TSH, URIC #### [facility] [address] [place] [address] Dr. Elver Gibson EGFR-AF SCOTTISH >60 Normal >=60 [facility] Comment on above: Performed By: #### B DEPARTMENTAL BUYER, CMP, LIPID, TSH, URIC #### [facility] [address] [place] [address] Dr. Elver Gibson EGFR-NON AF SCOTTISH 59 mL/min/1.73m2 Critically low >=[address] [facility] Comment on above: Performed By: #### B DEPARTMENTAL BUYER, CMP, LIPID, TSH, URIC #### [facility] [address] [place] [address] Dr. Elver Gibson Globulin (S) [Mass/Vol] 3.4 g/dL Normal [facility] Comment on above: Performed By: #### B DEPARTMENTAL BUYER, CMP, LIPID, TSH, URIC #### [facility] [address] [place] [address] Dr. Elver Gibson Glucose [Mass/Vol] 97 mg/dL Normal 74-106 [facility] Comment on above: Performed By: #### B DEPARTMENTAL BUYER, CMP, LIPID, TSH, URIC #### [facility] [address] [place] [address] Dr. Elver Gibson Potassium [Moles/Vol] 4.5 mmol/L Normal 3.5-5.[address] [facility] Comment on above: Performed By: #### B DEPARTMENTAL BUYER, CMP, LIPID, TSH, URIC #### [facility] [address] [place] [address] Dr. Elver Gibson Protein [Mass/Vol] 7.1 g/dL Normal 6.4-8.2 [facility] Comment on above: Performed By: #### B DEPARTMENTAL BUYER, CMP, LIPID, TSH, URIC #### [facility] [address] [place] [address] Dr. Elver Gibson Sodium [Moles/Vol] 141 mmol/L Normal 136-145 [facility] Comment on above: Performed By: #### B DEPARTMENTAL BUYER, CMP, LIPID, TSH, URIC #### [facility] [address] [place] [address] Dr. Elver Gibson Urea nitrogen [Mass/Vol] 31.0 mg/dL Critically high 7.0-18.0 [facility] Comment on above: Performed By: #### B DEPARTMENTAL BUYER, CMP, LIPID, TSH, URIC #### [facility] [address] [place] [address] Dr. Elver Gibson Urea nitrogen/Creatinine [Mass ratio] 26.1 mg/mg Normal [facility] Comment on above: Performed By: #### B DEPARTMENTAL BUYER, CMP, LIPID, TSH, URIC #### [facility] [address] [place] [address] Dr. Elver Gibson TSHon 02-14-2022 TSH 1.829 uIU/mL Normal 0.358-3.740 [facility] Comment on above: Performed By: #### B DEPARTMENTAL BUYER, CMP, LIPID, TSH, URIC #### [facility] [address] [place] [address] Dr. Elver Gibson URIC ACID SERUMon 02-14-2022 Urate [Mass/Vol] 7.1 mg/dL Normal 3.5-7.2 [facility] Comment on above: Performed By: #### B DEPARTMENTAL BUYER, CMP, LIPID, TSH, URIC #### [facility] [address] [place] [address] Dr. Elver Nicole 09-24-2021 RIGON Telephone (OPHTMN) BRANDI RAHMAN ([id number]) 1940 M Date Time Provider Department 09/24/21 [...] Reason for Visit: Received Outside Medical Records [[id number]] Cmt: Ho Alberto OD [phone] Fax Prescriptions as of 09/24/2021 - diltiazem [...] Status:Closed by MANSI MONTANEZ on 09/24/21 Normal [facility] Ambulatory Clinical Summaryo n 02-28-2020 Ambulatory Clinical Summary {[id number]}CD:[id number] Normal [facility] Ambulatory Clinical Summary {[id number]}CD:[id number] Normal [facility] Patient Educationon 02-28-20 20 Patient Education Family [...] dizz (more content not included)... Normal [facility] Urology Office/Clinic Noteon 02-28-2020 Urology [...] When Contact Information Arsalan Ryder MD, Roger [address] Additional Instructions: 1yr. w/ KUB and [...] intravenous solution, IV, Once losartan, Oral, Daily Appling-3 Osteo Bi-Flex selenium, Oral, Daily Vitamin C, [...] Negative (09 (more content not included)... Normal [facility] Comment on above: Result Comment: Elec tronically Signed By: Arsalan Ryder MD, Roger Agosto\.br\Date and Time Signed: 02/28/20 10:32 EDT\.br\Electronically Co-Signed By: Marichuy Hernández MA\.br\Date and Time Co-Signed: 02/28/20 10:21 EDT No Panel Information [facility] Vital Signs Date Time Vital Sign Value Performing Clinician Facility 01-28-2023 13:33-0400 Body height 167.64 cm Samantha Ziegler [employer] Phone: [facility] SoLatina DO Work Phone: 01-28-2023 13:33-0400 Body mass index (BMI) [Ratio] 27.92 kg/m2 [employer] Phone: [facility] SoLatina DO Work Phone: 01-28-2023 13:33-0400 Body surface area Derived from formula 1.88 m2 [facility] Phone: [facility] SoLatina DO Work Phone: 01-28-2023 13:33-0400 Body weight 78.47 kg Samantha M Hoy Work Phone: [facility] 250 DO Work Phone: 01-28-2023 13:33-0400 Diastolic blood pressure 92 mm[Hg] Samantha M Hoy Work Phone: [facility] 250 DO Work Phone: 01-28-2023 13:33-0400 Diastolic blood pressure 90 mm[Hg] Samantha M Hoy Work Phone: [facility] 250 DO Work Phone: 01-28-2023 13:33-0400 Diastolic blood pressure 80 mm[Hg] Samantha M Hoy Work Phone: [facility] 250 DO Work Phone: 01-28-2023 13:33-0400 Heart rate 84 /min Samantha M Hoy Work Phone: [facility] 250 DO Work Phone: 01-28-2023 13:33-0400 Systolic blood pressure 162 mm[Hg] Samantha M Hoy Work Phone: [facility] 250 DO Work Phone: 01-28-2023 13:33-0400 Systolic blood pressure 152 mm[Hg] Samantha M Hoy Work Phone: [facility] 250 DO Work Phone: 01-28-2023 13:33-0400 Systolic blood pressure 124 mm[Hg] Samantha M Hoy Work Phone: [facility] 250 DO Work Phone: 01-28-2023 13:33-0400 91 1 Samantha M Hoy Work Phone: [facility] 250 DO Work Phone: Comment on above: PULRateLy 01-28-2023 13:33-0400 84 1 Samantha M Hoy Work Phone: [facility] DO Work Phone: Comment on above: PULRateSit 01-28-2023 13:33-0400 90 1 Samantha M Hoy Work Phone: [facility] 250 DO Work Phone: Comment on above: PUL[employer]St 01-28-2023 13:28-0400 Body height 167.64 cm Samantha M Hoy Work Phone: [facility] 250 DO Work Phone: 01-28-2023 13:28-0400 Body mass index (BMI) [Ratio] 27.92 kg/m2 Samantha M Hoy Work Phone: [facility] 250 DO Work Phone: 01-28-2023 13:28-0400 Body surface area Derived from formula 1.88 m2 Samantha M Hoy Work Phone: [facility] 250 DO Work Phone: 01-28-2023 13:28-0400 Body weight 78.47 kg Samantha M Hoy Work Phone: [facility] 250 DO Work Phone: 01-28-2023 13:28-0400 Diastolic blood pressure 90 mm[Hg] Samantha M Hoy Work Phone: [facility] 250 DO Work Phone: 01-28-2023 13:28-0400 Heart rate 91 /min Samantha M Hoy Work Phone: [facility] 250 DO Work Phone: 01-28-2023 13:28-0400 Systolic blood pressure 152 mm[Hg] Samantha M Hoy Work Phone: [facility] 250 DO Work Phone: 12-01-2022 13:03-0400 Diastolic blood pressure 60 mm[Hg] Samantha M Hoy Work Phone: [facility]Mefljciubk[facility]Uni [facility] 250 DO Work Phone: 12-01-2022 13:03-0400 Systolic blood pressure 120 mm[Hg] Samantha Toney Hoy Work Phone: CB-Oekzjmjxcp-Xgz [facility] 250 DO Work Phone: 12-01-2022 12:48-0400 Body height 167.64 cm Samantha Toney Hoy Work Phone: [facility]Szllvedsad-Zxn [facility] 250 DO Work Phone: 12-01-2022 12:48-0400 Body mass index (BMI) [Ratio] 28.41 kg/m2 Samantha Ziegler Hoy Work Phone: LI-Ulnqpxctkd-Ijr dusky 250 DO Work Phone: 12-01-2022 12:48-0400 Body surface area Derived from formula 1.89 m2 Samantha Toney Hoy Work Phone: EM-Yeidiaqjpb-Dgc [facility] 250 DO Work Phone: 12-01-2022 12:48-0400 Body weight 79.83 kg Samantha Ziegler Hoy Work Phone: EZ-Uuwwrjfzau-Fsp dusky 250 DO Work Phone: 12-01-2022 12:48-0400 Diastolic blood pressure 60 mm[Hg] Samantha Toney Hoy Work Phone: FZ-Uymebqnbxh-Obt meño 250 DO Work Phone: 12-01-2022 12:48-0400 Heart rate 76 /min Samantha Toney Hoy Work Phone: HH-Kkiwykpgky-Nhm dusky 250 DO Work Phone: 12-01-2022 12:48-0400 Systolic blood pressure 94 mm[Hg] Samantha M Hoy Work Phone: WX-Puxyrynkqu-Xbt alirezaky 250 DO Work Phone: 11-04-2022 07:53-0400 65 1 Samantha M Hoy Work Phone: [facility] 250 DO Work Phone: Comment on above: [id number] 10-24-2022 10:01-0400 Body height 175.26 cm Samantha M Hoy Work Phone: [facility] 250 DO Work Phone: 10-24-2022 10:01-0400 Body mass index (BMI) [Ratio] 26.58 kg/m2 Samantha M Hoy Work Phone: [facility] 250 DO Work Phone: 10-24-2022 10:01-0400 Body surface area Derived from formula 1.98 m2 Samantha M Hoy Work Phone: [facility] 250 DO Work Phone: 10-24-2022 10:01-0400 Body weight 81.65 kg Samantha M Hoy Work Phone: [facility] 250 DO Work Phone: 10-24-2022 10:01-0400 Diastolic blood pressure 82 mm[Hg] Samantha M Hoy Work Phone: [facility] 250 DO Work Phone: 10-24-2022 10:01-0400 Heart rate 84 /min Samantha M Hoy Work Phone: [facility] 250 DO Work Phone: 10-24-2022 10:01-0400 Systolic blood pressure 144 mm[Hg] Samantha M Hoy Work Phone: [facility] 250 DO Work Phone: Encounters Encounter Date Encounter Type Care Provider Facility Start: 12-25-2023 End: 12-25-2023 ambulatory [facility] Start: 05-25-2023 End: 05-25-2023 ambulatory [facility] Start: 01-28-2023 Patient encounter [facility] Work Phone: Start: 01-28-[address] [facility]on [facility] Facility: Start: 12-01-2022 Office outpatient visit 25 minutes Samantha Recio Work Phone: [facility] 250 DO Work Phone: Start: 12-01-[address] Deon Weeks [place] Facility: Start: 10-31-[address] Deon Weeks [facility] Facility:[id number] Start: 10-31-2022 End: 10-31-2022 ambulatory [facility] Facility:[facility] [place] [facility] Start: 10-31-2022 Rx Renewal Samantha Recio Work Phone: [facility] 250 DO Work Phone: Start: 10-27-2022 End: 10-27-2022 ambulatory [facility] Facility:[facility] Start: 10-24-[address] Samantha Recio Facility: [...] Comment on above: Performed By: #### P [facility] ####[id number] [place], [place] [address]IhRodolfo Gibson Start: 11-14-2021 End: 11-14-2021 Computerized ophthalmic [...] Deon Rasmussen, Status: Pen, Time: 9:10 AM [facility]Ywtreds y 250 DO Work Phone: Start: 12-01-2022 FUV, Provider: Deon Rasmussen, Status: Pen, Time: 1:00 PM FUV, Provider: Deon Rasmussen, Status: Pen, Time: 1:00 PM [facility] 250 DO Work Phone: Start: 11-29-2022 End: 05-08-2023 OCT MACULA CIRRUS OU (BOTH EYES) OCT MACULA CIRRUS OU (BOTH EYES) OPHT Imaging Routine Epiretinal membrane (ERM) of both eyes Nevus of choroid of left eye Expected: 11/29/2022, Expires: 05/08/2023 [facility] Work Phone: Comment on above: Expected: 11/29/2022 , Expires: 05/08/2023 Start: 02-06-2022 Influenza vaccination INFLUENZ A (Season Ended) [facility] Start: 08-17-2021 COVID-19 VACCINE (4 - Booster for Moderna series) COVID-19 VACCINE (4 - Booster for Moderna series) [facility] Start: 06-08-2021 ADVANCE DIRECTIVE DISCUSSION ADVANCE DIRECTIVE DISCUSSION [facility] Start: 09-10-2006 DIABETES SCREEN [facility] Start: 2005 PNEUMOCOCCAL: 65+ (1 - PCV) PNEUMOCOCCAL: 65+ (1 - PCV) [facility] Start: 1990 SHINGRIX VACCINE (1 of 2) SHINGRIX VACCINE (1 of 2) [facility] Start: 09-29-1959 Urine microalbumin profile DTAP,TDAP,TD (1 - Tdap) [facility] Immunizations Immunization Date Immunization Notes Care Provider Glenroy pleitez 04-19-2021 Moderna COVID-19 Vac cine 100 MCG/0.5ML Intramuscular Suspension Samantha Metriloy Work Phone: [facility] [employer] 250 DO Work Phone: 2020 Moderna COVID-19 Vac cine 100 MCG/0.5ML Intramuscular Suspension Samantha M Hoy Work Phone: [facility] [employer] 250 DO Work Phone: 08-31-2020 Moderna COVID-19 Vac cine 100 MCG/0.5ML Intramuscular Suspension Samantha M Hoy Work Phone: [facility] [employer] 250 DO Work Phone: 04-07-2017 influenza virus vacc ine, unspecified formulation Samantha M Hoy Work Phone: [facility] [employer] 250 DO Work Phone: 03-25-2016 influenza virus vacc ine, unspecified formulation Samantha M Hoy Work Phone: [facility] [employer] 250 DO Work Phone: 03-17-2016 influenza, high dose seasonal, preservative-free Samantha M Hoy Work Phone: -[facility] DO Work Phone: Payers Date Payer Category Payer Self-pay 2020 Unknown [employer] MEDICARE SUPPLEMENT [id number] 2020-Present [phone] [address] [place] [address] Indemnity [id number] 1959 Medicare [id number] 1959 Unknown [id number] 1940 Unknown [id number] 1940 Unknown [id number] [id number] 1940 Unknown [id number] [id number] 1940 Unknown [id number] 2.16.840.1.645432.3.579.2.356 1940 Unknown [id number] [id number] 1940 Unknown [id number] [id number] 1940 Unknown [id number] [id number] 1940 Unknown [id number] [id number] 1940 Unknown [id number] [id number] Unknown Unknown [id number] [id number] Unknown [id number] Social History Date Type Detail Facility Start: 12-14-2015 Tobacco smoking stat us NHIS Never smoked tobacco [facility] Start: 12-14-2015 Tobacco use and exposure Smokeless tobacco non-user [facility] Start: 11-14-2021 Alcohol intake Current drinke r of alcohol (finding) [facility] Start: 12-14-2015 History SDOH Alcohol Comment on occ [facility] Start: 1940 Sex Assigned At Not on file [facility] Never a smoker Never a smoker [facility] [facility] DO Work Phone: Comment on above: COFFEE DAILY; Progress note 11-14-2021 Note Date & Type Note Facility 11-14-2021 Note HNO ID: [id number] Author: Zulema Guo MD Service: ? Author Type: Physician Type: Progress Notes Filed: 11/14/2021 10:16 AM Note Text: New patient to Dr. Guo Last seen with Dr. Alberto ([place]) who thought that the choroidal nevus left [...] of its relevant components. Zulema Guo MD [facility] History of Present illness Narrative 11-14-2021 Zulema Guo MD - 11/14/2021 9:50 AM EDT Note Date & Type Note Facility 11-14-2021 History of Presen t illness Narrative New patient to Dr. Guo Last seen with Dr. 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 Epiretinal membrane (ERM) of both eyes documented in this encounter [facility] Summary Purpose Family History No Family History [...] and content) DATE [facility] DATE CREATED AUTHOR AUTHOR'S ORGANIZ ATION 11/14/2021 [facility] DATE CREATED AUTHOR AUTHOR'S ORGANIZ ATION 09/22/2022 [facility] DATE CREATED AUTHOR AUTHOR'S ORGANIZ ATION 11/16/2022 [facility] DATE CREATED AUTHOR AUTHOR'S ORGANIZ ATION 12/02/2022 [facility] DATE CREATED AUTHOR AUTHOR'S ORGANIZ ATION 01/29/2023 [facility] DATE CREATED AUTHOR AUTHOR'S ORGANIZ ATION 12/28/2023 [facility] Ambulatory Source Comments (unrecognize d section and content) In the event this informatio n is protected by the Federal Confidentiality of Alcohol and Drug Abuse Patient Records regulations: The Federal rules restrict any use of the information to criminally investigate or prosecute any alcohol or drug abuse patient.[facility] Reason for Visit (unrecogniz ed section and content) Reason Comments Epiretinal Membrane Follow Up [facility] Choroidal nevus of left eye Care Teams (unrecognized sec tion and content) Government Affairs Fellow Relationship Specialty Start Date End Date Levi Dumont [address] [place] [address] PCP - General 09/11/03 FOR RECORDS [...] BE BASED ON THE PRIMARY CLINICAL RECORDS. [facility]. provides no warranty or guarantee of the accuracy or completeness of information in this document.
--- NOTE | 2023-12-29 17:57 | ED_ITS ---
HPI - SOB/Dyspnea General Chief Complaint: Shortness of Breath/Dyspnea Stated Complaint: SWELLING AROUND HEART Time Seen by Provider: 12/29/23 17:41 Source: patient and family () Mode of arrival: Wheelchair Limitations: no limitations History of Present Illness HPI Narrative: 83-year-old male presents to the emergency department with with complaint of worsening shortness of breath over the past several weeks. States only minimal exertion is bringing it on. Having trouble laying states shortness of breath also worse when he is lying down at night. Was evaluated by cardiology a month or so ago, has order for echocardiogram in January. Went to see his primary provider today, had blood work performed and was called to come to the emergency department for admission due to elevated BNP. Denies any chest pain. Denies any symptoms at rest. Denies any fever, chills, peripheral edema. Quality:?as above Severity:?moderate Timing:?as above, worsening Context: Normal setting and activity? Modifying factors:?worse with exertion Associated symptoms: slight cough, orthopnea Related Data Home Medications ?Medication ?Instructions ?Recorded ?Confirmed apixaban 5 mg tablet (Eliquis) 5 mg PO Q12H 12/29/23 12/29/23 indapamide 1.25 mg tablet 1.25 mg PO DAILY 12/29/23 12/29/23 metoprolol succinate 50 mg 50 mg PO DAILY 12/29/23 12/29/23 tablet,extended release 24 hr Allergies Allergy/AdvReac Type Severity Reaction Status Date / Time No Known Drug Allergies Allergy Verified 12/29/23 17:30 Review of Systems ROS Constitutional Denies: fever, chills or fatigue Ears, nose, mouth, and throat Denies: nasal congestion Cardiovascular Reports: shortness of breath with exertion; Denies: chest pain or edema Respiratory Reports: shortness of breath and cough; Denies: wheezing Gastrointestinal Denies: abdominal pain, nausea or vomiting Musculoskeletal Denies: joint pain Neurological Denies: headache or dizziness Endocrine Denies: fatigue [facility] Medical History (Updated 12/29/23 @ 18:44 by ) Afib ?I48.91 - Unspecified atrial fibrillation (ICD-10) HTN (hypertension) ?I10 - Essential (primary) hypertension (ICD-10) Exam Constitutional Vital Signs, click to edit/add: Last Vital Signs Temp 97.9 F 12/29/23 17:33 Pulse 72 12/29/23 18:10 Resp 19 12/29/23 18:10 BP 110/87 12/29/23 18:10 Pulse Ox 94 L 12/29/23 18:11 O2 Del Method Room Air 12/29/23 18:11 Common normals: no apparent distress, oriented x3 and alert HENMT Common normals: external nose normal Head and scalp: normocephalic and atraumatic Nose: external nose normal Neck & C-Spine Common normals: supple and no JVD Respiratory Common normals: normal respiratory effort and no use of accessory muscles Effort & inspection: able to speak in complete sentences and symmetric chest movement Auscultation: diminished lung sounds bilateral in the lower lung faust; no crackles, no rales and no rhonchi Cardio Common normals: regular rate, regular rhythm and no murmurs Rate: regular rate Rhythm: regular rhythm GI Common normals: soft to palpation and non-tender Inspection: normal to inspection Palpation: soft Extremity Common normals: normal to inspection and no pedal edema Neuro Common normals: oriented x3, no focal motor deficits, no sensory deficits noted and gait normal Sensorium/orientation: alert Psych Common normals: thought process normal, cooperative and affect normal Thought process: normal thought process Course Consultations Consultation #1: Patient discussed with NICHOLAS Mccollum who is agreeable with admission Vital Signs Vital signs: Vital Signs Blood Pressure 144/104 H 12/29/23 17:31 Pulse Oximetry 98 12/29/23 17:31 Temperature 97.9 F 12/29/23 17:33 Pulse Rate 72 12/29/23 18:10 Respiratory Rate 19 12/29/23 18:10 Blood Pressure 110/87 12/29/23 18:10 Pulse Oximetry 94 L 12/29/23 18:11 Oxygen Delivery Method Room Air 12/29/23 18:11 MDM - SOB/Dyspnea MDM Narrative Medical decision making narrative: This is a pleasant 83-year-old male who presents to the emergency department with with complaint of worsening shortness of breath over the past 3 weeks. Mainly noticing it with exertion and states that is now taking minimal activity to bring it on. Has had associated orthopnea. + Slight cough. No peripheral edema. Had outpatient blood work done today, as well as, an x-ray and were told that his heart was enlarged and his BNP was elevated prompting direction to the emergency department for admission. On arrival, afebrile, vital signs stable. Not hypoxic. On exam, nontoxic, well-appearing patient in no distress. Heart irregularly irregular, rate controlled. Lung sounds were diminished bilaterally. He is speaking complete sentences. No peripheral edema was noted. EKG reveals no acute or concerning changes Labs from earlier reveal no leukocytosis, anemia, thrombocytopenia, electrolyte imbalance. BUN 39, creatinine 1.57 up from 29 and 1.32, respectively from 10/02/2023. BNP was elevated at 2662. Chest x-ray imaging performed earlier, per radiology report reveals cardiac enlargement without overt cardiac decompensation. No focal infiltrate is not identified. Favor CHF Pneumonia, pleural effusion less likely based on chest x-ray PE was considered. At rest, not hypoxic, tachycardic. He is on anticoagulant. provided independent history Prior lab results were reviewed, see above Hospitalist consulted Patient given dose of Lasix. He otherwise remained stable during ED course. Disposition ? Plan: Patient will be admitted. Condition at time of disposition: stable ? PLEASE NOTE: Portions of the medical record may have been produced using electronic specialist field engineer and may contain errors with respect to translation of words which may not have been identified prior to finalization of the chart. Medical Records Attestation: I reviewed the patient's medical records. Lab Data Attestation: I reviewed the patient's lab results. (from earlier, see above) ECG Data Attestation: I personally reviewed and interpreted this ECG as follows: (-year-old fibrillation at 81 bpm. Multiple, multifocal PVCs noted. No STEMI. No other additional acute changes are noted.) ECG interpretation date: 12/29/23 ECG interpretation time: 17:32 Discharge Plan Discharge Chief Complaint: Shortness of Breath/Dyspnea Clinical Impression: Congestive heart failure, MOYA (dyspnea on exertion), Atrial fibrillation Patient Disposition: Admitted As Inpatient Time of Disposition Decision: 18:39 Condition: Good
--- NOTE | 2023-12-29 17:57 | ECG_ITS ---
[facility] Test Date: 2023-12-29 Pat Name: BRANDI RAHMAN Department: Room: - Gender: Male Pressurizer: : 1940 Requested By: SAMANTHA MAYA Order Number: [id number] Reading MD: SAMANTHA MAYA Measurements Intervals [place] Rate: 81 P: -[id number] [place]: -[id number] QRS: 90 QRSD: 108 T: 56 QT: 386 QTc: 423 Interpretive Statements [id number] Atrial fibrillation with aberrant conduction, or ventricular premature complexes 3514 Cannot rule out lateral myocardial infarction, age undetermined [address] depression, probably digitalis effect 9150 abnormal ECG No previous ECG available for comparison Electronically Signed On 12-30-2023 13:34:37 EDT by SAMANTHA MAYA
--- NOTE | 2023-12-29 18:12 | PC.NURSE ---
pt denies SOB while at rest
[2023-12-29 19:01] LABS: Troponin I High Sensitivity 87.5 pg/mL (4.0-76.1)
[2023-12-29] MEDS: FUROSEMIDE 20 MG/2 ML VIAL IVP (19:08)
--- OUTSIDE RECORDS SUMMARY | 2023-12-29 20:01 | XMS_ITS | CCD ---
Author Organization [facility] CliniSyaz Care Team Providers Care Horologist Name Role Phone Levi Dumont Primary Care [...] Dr. Deon Frank Referring Anita vailable DEON RASUMSSEN Attending Unavailable SAMANTHA RECIO Primary Care Unavailable [...] Rasmussen MD Start : 24-Oct-2022 Active Saw Chalfont 450 MG Oral Capsule (3 sources) Saw Chalfont 450 MG Oral Capsule TAKE DIRECTED. 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 Selenium 200 [...] Vital Signs Recorded: 01Dec2022 01:03PMRecorded: 01Dec2022 12:48PM [id number], RUE, Sitting Bzmbnqxmj6407, RUE, Sitting Heart Rate76, L Radial Height5 ft 6 in Sftbgu568 lb BMI Ycezlcfles51.41 kg/m2 BSA Calculated1.89 Tobacco Useb) No Falls Screening (Age 18+)a) No falls within the (more content not included)... Normal [employer] Tobacco Screening.on 023 Fall risk assessment a) No falls within the last year [facility]- [place] 250 DO Work Phone: Tobacco use status [facility] b) No [facility]- [place] 250 DO Work Phone: ECH echo transesophageal SHARON on 10-31-2022 [facility] echo transesophageal SHARON [facility] [place] [address] [place] [address] Echocardiogram Signed Patient: Brandi Rahman MR#: [id number] 9 : 1940 Acct:[id number] Age/Sex: 82 / M ADM Date: 10/31/22 Loc: [place] Room: Type: [facility] Attending Dr: Deon Rasmussen MD Ordering Provider: Deon Rasmussen MD, [facility] Date of Service: 10/31/22/ ECH/ECH echo transesophageal SHARON: DYSPNEA, MR, A-FIB. Copies to: Deon Rasmussen MD, [facility] Reason For Study: DYSPNEA, MR, A-FIB. History: [...] significant plaques. Effusions: No pericardial effusion seen. Electronically signed by: DEON RASMUSSEN MD, [facility] on 10/31/2022 04:05 PM Transcribed By: TAMY Performed At: 10/31/22 1247 Signed By: Deon Rasmussen MD, [facility] 10/31/22 1605 Normal [facility] Basic Metabolic Panelon 10-07 Anion gap [Moles/Vol] 9.3 mmol/L Normal 6.0-15.0 [facility] Comment on above: Performed By: #### B MP, CBC #### [address] Calcium [Mass/Vol] 9.1 mg/dL Normal 8.6-10.3 [facility] Comment on above: Result Comment: PERF ORMED BY: [place] [address] PATHOLOGIST QUALITY ASSURANCE PROJECT MANAGER LILLIAN TILLMAN M.D. Performed By: #### B MP, CBC #### [facility] [address] [place] [address] [place] Chloride [Moles/Vol] 101 mmol/L Normal 98-107 [facility] Comment on above: Performed By: #### B MP, CBC #### [facility] [address] [place] [address] [place] CO2 [Moles/Vol] 34.3 mmol/L High 21.0-31.0 [facility] Comment on above: Performed By: #### B MP, CBC #### [facility] [address] Creatinine [Mass/Vol] 1.30 mg/dL Normal 0.70-1.30 [facility] Comment on above: Performed By: #### B MP, CBC #### [facility] [address] [place] [address] [place] GFR/1.73 sq M.predicted MDRD (S/P/Bld) [Vol rate/Area] 54.849 mL/min/{1.73_m2} Normal [facility] Comment on above: Performed By: #### B MP, CBC #### [facility] [address] Glucose [Mass/Vol] 89 mg/dL Normal 70-100 [facility] Comment on above: Result Comment: [facility] Glucose Reference Range is dependent on time and content of last meal. Glucose of more than 200 mg/dL in a nonstressed, ambulatory subject supports the diagnosis of Diabetes Mellitus. ADA recommended reference range Performed By: #### B MP, CBC #### [address] Potassium [Moles/Vol] 4.6 mmol/L Normal 3.5-5.1 [facility] Comment on above: Performed By: #### B MP, CBC #### [address] Sodium [Moles/Vol] 140 mmol/L Normal 136-145 [facility] Comment on above: Performed By: #### B MP, CBC #### [address] Urea nitrogen [Mass/Vol] 29 mg/dL High 7-25 [facility] Comment on above: Performed By: #### B MP, CBC #### [address] Complete Blood Count Auto Di ffon 10-27-2022 Basophils (Bld) [#/Vol] 0.1 10*3/uL Normal 0.0-0.2 [facility] Comment on above: Result Comment: PERF ORMED BY: [place] [address] PATHOLOGIST QUALITY ASSURANCE PROJECT MANAGER LILLIAN TILLMAN M.D. Performed By: #### B MP, CBC #### [address] [place] [address] [place] Basophils/100 WBC (Bld) 1.1 % Normal . [facility] Comment on above: Performed By: #### B MP, CBC #### [address] Eosinophils (Bld) [#/Vol] 0.2 10*3/uL Normal 0.0-0.45 [facility] Comment on above: Performed By: #### B MP, CBC #### [address] Eosinophils/100 WBC (Bld) 3.2 % Normal . [facility] Comment on above: Performed By: #### B MP, CBC #### [address] Erythrocyte distribution width (RBC) [Ratio] 14.4 % Normal 12.0-14.8 [facility] Comment on above: Performed By: #### B MP, CBC #### [address] Hematocrit (Bld) [Volume fraction] 43.0 % Normal 38.8-50.0 [facility] Comment on above: Performed By: #### B MP, CBC #### [address] Hemoglobin (Bld) [Mass/Vol] 14.4 g/dL Normal 13.0-17.0 [facility] Comment on above: Performed By: #### B MP, CBC #### [address] Lymphocytes (Bld) [#/Vol] 1.0 10*3/uL Normal 1.00-4.8 [facility] Comment on above: Performed By: #### B MP, CBC #### [address] Lymphocytes/100 WBC (Bld) 21.1 % Normal . [facility] Comment on above: Performed By: #### B MP, CBC #### [address] MCH (RBC) [Entitic mass] 33.8 pg Normal 27.5-35.2 [facility] Comment on above: Performed By: #### B MP, CBC #### [address] MCV (RBC) [Entitic vol] 100.8 fL Normal 83.5-101 [facility] Comment on above: Performed By: #### B MP, CBC #### [address] Mean Corpuscular HGB Conc 33.5 g/dL Normal 32.5-35.6 [facility] Comment on above: Performed By: #### B MP, CBC #### [address] Monocytes (Bld) [#/Vol] 0.6 10*3/uL Normal 0.0-0.8 [facility] Comment on above: Performed By: #### B MP, CBC #### [address] Monocytes/100 WBC (Bld) 11.8 % Normal . [facility] Comment on above: Performed By: #### B MP, CBC #### [address] Neutrophils (Bld) [#/Vol] 2.9 10*3/uL Normal 1.8-7.7 [facility] Comment on above: Performed By: #### B MP, CBC #### [address] Neutrophils/100 WBC (Bld) 62.8 % Normal . [facility] Comment on above: Performed By: #### B MP, CBC #### [address] NRBC% 0.1 /100{WBC} Normal 0-0.5 [facility] Comment on above: Performed By: #### B MP, CBC #### [address] Platelet mean volume (Bld) [Entitic vol] 8.0 fL Normal 6.6-10.1 [facility] Comment on above: Performed By: #### B MP, CBC #### [facility] [address] Platelets (Bld) [#/Vol] 213 10*3/uL Normal 150-450 [facility] Comment on above: Performed By: #### B MP, CBC #### [facility] [address] RBC (Bld) [#/Vol] 4.27 10*6/uL Normal 3.90-5.60 [facility] Comment on above: Performed By: #### B MP, CBC #### [facility] [address] WBC (Bld) [#/Vol] 4.7 10*3/uL Normal 4.1-10.5 [facility] Comment on above: Performed By: #### B MP, CBC #### [facility] [address] Office Visit (Cardiology)on 10-24-2022 Follow-up visit [...] in adult Healthy Weight Tips; Status:Complete; Done: [id number] Some eating tips that can help you lose weight.; Status:Complete; Done: [id number] PMH: Paroxysmal atrial fibrillation Start: Indapamide 1.25 MG Oral Tablet; TAKE 1 TABLET ONCE DAILY SocHx: Never a smoker Tobacco Use Screening; Status:Complete; Done: [id number] Unlinked Stop: Eliquis 2.5 MG Oral Tablet [...] time. Had an echocardiogram done recently at [facility] which I have the report reviewed. It [...] Medication NameInst (more content not included)... Normal [employer] Tobacco Screening.on 023 Adult depression screening assessment No [facility] [employer]-[place] 250 DO Work Phone: Fall risk assessment a) No falls within the last year [facility] Heart-[place] 250 DO Work Phone: Tobacco use status [facility] b) No [facility] [employer] 250 DO Work Phone: ECHOCARDIO M/2D COMPLETEon 0 09-16-2022 ECHOCARDIO M/2D COMPLETE Patient: BRANDI RAHMAN Exam Date: 09/16/2022 : 1940 Gender:M Ordering : DR SAMANTHA RECIO . Admission #: [id number] Family : Order #: [id number] CLICK HERE TO VIEW EXAM ECHOCARDIOGRAM REPORT [...] M.D. on 09/16/2022 at 20:23 Normal [facility] BNPon 09-09-2022 Natriuretic peptide B (Bld) [Mass/Vol] 154.0 pg/mL Normal <=1,800.0 [facility] Comment on above: Performed By: #### T SH, T7, CMP, BNP ####[facility] [address] [place] [address]DrRodolfo Elver Arthur CBC AUTO DIFFon 09-09-2022 BASO # 0.0 103/ul Normal 0.0-0.1 [facility] Comment on above: Performed By: #### C BC ####[facility] [address] [place] [address]Dr. Elver Gibson Basophils/100 WBC (Bld) 0.6 % Normal 0.2-2.0 [facility] Comment on above: Performed By: #### C BC ####[facility] [address] [place], [place] [address]Dr. Elver Gibson EO # 0.2 103/ul Normal 0.0-0.7 [facility] Comment on above: Performed By: #### C BC ####[facility] [address] [place], [place] [address]Dr. Elver Gibson Eosinophils/100 WBC (Bld) 4.1 % Normal 0.9-7.0 [facility] Comment on above: Performed By: #### C BC ####[facility] Ms[address] [place], [place] [address]Dr. Elver Gibson Erythrocyte distribution width (RBC) [Ratio] 13.5 % Normal 11.0-15.0 [facility] Comment on above: Performed By: #### C BC ####[facility] [address] [place], [place] [address]Dr. Elver Gibson Hematocrit (Bld) [Volume fraction] 42.9 % Normal 42.0-54.0 [facility] Comment on above: Performed By: #### C BC ####[facility] [address] [place], [place] [address]Dr. Elver Gibson Hemoglobin (Bld) [Mass/Vol] 14.5 g/dL Normal 14.0-18.0 [facility] Comment on above: Performed By: #### C BC ####[facility] [address] [place], [place] [address]Dr. Elver Gibson IG # 0.01 10e3/ul Normal 0.00-0.03 [facility] Comment on above: Performed By: #### C BC ####[facility] [address] [place], [place] [address]Dr. Elver Gibson IG % 0.2 % Normal 0.0-0.5 [facility] Comment on above: Performed By: #### C BC ####[facility] [address] [place] [id number] Gibson LYMPH # 1.2 103/ul Normal 1.2-3.8 [facility] Comment on above: Performed By: #### C BC ####[facility] [address] [place] [phone]. Elver Gibson Lymphocytes/100 WBC (Bld) 21.8 % Normal 20.5-60.0 [facility] Comment on above: Performed By: #### C BC ####[facility] [address] [place] [address]DrRodolfo Gibson MANUAL DIFF REQ NO Normal [facility] Comment on above: Performed By: #### C BC ####[facility] [address] [place] [phone]. Elver Gibson MCH (RBC) [Entitic mass] 33.4 pg Normal 25.9-34.0 [facility] Comment on above: Performed By: #### C BC ####[facility] [address] [place] [phone]. Elver Gibson MCHC (RBC) [Mass/Vol] 33.8 g/dL Normal 29.9-35.2 [facility] Comment on above: Performed By: #### C BC ####[facility] [address] [place] [phone] Gibson MCV (RBC) [Entitic vol] 98.8 fL Critically high 80.0-94.0 [facility] Comment on above: Performed By: #### C BC ####[facility] [address] [place] [phone] Gibson MONO # 0.7 103/ul Normal 0.3-0.8 [facility] Comment on above: Performed By: #### C BC ####[facility] [address] [place] [phone]. Elver Gibson Monocytes/100 WBC (Bld) 13.3 % Critically high 1.7-12.0 [facility] Comment on above: Performed By: #### C BC ####[facility] [address]ke[address] [place] [phone]. Elver Gibson NEUT # 3.3 103/ul Normal 1.4-6.5 [facility] Comment on above: Performed By: #### C BC ####[facility] [address] [place] [phone]. Elver Gibson Neutrophils/100 WBC (Bld) 60.0 % Normal 43.0-75.0 [facility] Comment on above: Performed By: #### C BC ####[facility] [address] [place] [phone]. Elver Gibson Platelet mean volume (Bld) [Entitic vol] 9.5 fL Normal 9.5-13.5 [facility] Comment on above: Performed By: #### C BC ####[facility] [address] [place] [phone]. Elver Gibson PLT 197 103/ul Normal 150-450 [facility] Comment on above: Performed By: #### C BC ####[facility] [address]vh[address] [place] [phone]. Elver Gibson RBC 4.34 106/ul Critically low 4.70-6.10 [facility] Comment on above: Performed By: #### C BC ####[facility] [address] [place] [phone]. Elver Gibson WBC 5.4 103/ul Normal 4.0-11.0 [facility] Comment on above: Performed By: #### C BC ####[facility] [address] [place] [phone]. Elver Gibson FREE THYROXINE INDEX T7on FTI 2.21 Normal 1.30-4.50 [facility] Comment on above: Performed By: #### T SH, T7, CMP, BNP ####[facility] [address] [place] [phone]. Elver Arthur T3U 35.0 % Normal 33.0-40.0 [facility] Comment on above: Performed By: #### T SH, T7, CMP, BNP ####[facility] [address] [place] [address]Dr. Elver Gibson T4 [Mass/Vol] 6.30 ug/dL Normal 4.50-12.[address] [facility] Comment on above: Performed By: #### T SH, T7, CMP, BNP ####[facility] [address] [place] [address]Dr. Elver Gibson PROF 14(COMP METB)on 023 Albumin [Mass/Vol] 3.8 g/dL Normal 3.4-5.0 [facility] Comment on above: Performed By: #### T SH, T7, CMP, BNP ####[facility] [address] [place] [address]Dr. Elver Gibson Albumin/Globulin [Mass ratio] 1.1 {ratio} Normal [facility] Comment on above: Performed By: #### T SH, T7, CMP, BNP ####[facility] [address] [place] [address]Dr. Elver Gibson ALP [Catalytic activity/Vol] 74 U/L Normal 46-116 [facility] Comment on above: Performed By: #### T SH, T7, CMP, BNP ####[facility] [address] [place] [address]Dr. Elver Gibson ALT [Catalytic activity/Vol] 27 U/L Normal 16-63 [facility] Comment on above: Performed By: #### T SH, T7, CMP, BNP ####[facility] [address] [place] [address]Dr. Elver Gibson Anion gap [Moles/Vol] 10.8 mmol/L Normal [facility] Comment on above: Performed By: #### T SH, T7, CMP, BNP ####[facility] [address] [place] [address]Dr. Elver Gibson AST [Catalytic activity/Vol] 30 U/L Normal 15-37 [facility] Comment on above: Performed By: #### T SH, T7, CMP, BNP ####[facility] Imns[address]kex[address] [place] [address]Dr. Elver Gibson Bilirubin [Mass/Vol] 0.7 mg/dL Normal 0.2-1.0 [facility] Comment on above: Performed By: #### T SH, T7, CMP, BNP ####[facility] [address] [place] [address]Dr. Elver Gibson Calcium [Mass/Vol] 9.3 mg/dL Normal 8.5-10.1 [facility] Comment on above: Performed By: #### T SH, T7, CMP, BNP ####[facility] [address] [place], [place] [address]Dr. Elver Gibson Chloride [Moles/Vol] 104 mmol/L Normal 98-107 [facility] Comment on above: Performed By: #### T SH, T7, CMP, BNP ####[facility] [address] [place], [place] [address]Dr. Elver Gibson CO2 [Moles/Vol] 31.9 mmol/L Normal 21.0-32.0 [facility] Comment on above: Performed By: #### T SH, T7, CMP, BNP ####[facility] [address] [place], [place] [address]Dr. Elver Gibson Creatinine [Mass/Vol] 1.19 mg/dL Normal 0.70-1.30 [facility] Comment on above: Performed By: #### T SH, T7, CMP, BNP ####[facility] [address] [place], [place] [address]Dr. Elver Gibson EGFR-AF MALAWIAN >60 Normal >=60 [facility] Comment on above: Performed By: #### T SH, T7, CMP, BNP ####[facility] Fa[address] [place], [place] [address]Dr. Elver Gibson EGFR-NON AF MALAWIAN 59 mL/min/1.73m2 Critically low >=60 [facility] Comment on above: Performed By: #### T SH, T7, CMP, BNP ####[facility] [address] [place], [place] [address]Dr. Elver Gibson Globulin (S) [Mass/Vol] 3.5 g/dL Normal [facility] Comment on above: Performed By: #### T SH, T7, CMP, BNP ####[facility] [address] [place] [address]Dr. Elver Gibson Glucose [Mass/Vol] 124 mg/dL Critically high 74-106 [facility] Comment on above: Performed By: #### T SH, T7, CMP, BNP ####[facility] [address] [place] [address]Dr. Elver Gibson Potassium [Moles/Vol] 4.7 mmol/L Normal 3.5-5.1 [facility] Comment on above: Performed By: #### T SH, T7, CMP, BNP ####[facility] [address] [place] [address]Dr. Elver Gibson Protein [Mass/Vol] 7.3 g/dL Normal 6.4-8.2 [facility] Comment on above: Performed By: #### T SH, T7, CMP, BNP ####[facility] [address] [place] [address]Dr. Elver Gibson Sodium [Moles/Vol] 142 mmol/L Normal 136-145 [facility] Comment on above: Performed By: #### T SH, T7, CMP, BNP ####[facility] [address] [place] [address]Dr. Elver Gibson Urea nitrogen [Mass/Vol] 27.0 mg/dL Critically high 7.0-18.0 [facility] Comment on above: Performed By: #### T SH, T7, CMP, BNP ####[facility] [address]ql[address] [place] [address]Dr. Elver Gibson Urea nitrogen/Creatinine [Mass ratio] 22.7 mg/mg Normal [facility] Comment on above: Performed By: #### T SH, T7, CMP, BNP ####[facility] [address] [place] [address]Dr. Elver Gibson TSHon 09-09-2022 TSH 1.455 uIU/mL Normal 0.358-3.[address] [facility] Comment on above: Performed By: #### T SH, T7, CMP, BNP ####[facility] [address] [place] [address]Dr. Elver Gibson XR CHEST 2 Von 09-09-2022 [...] VAN VUONG Date: 2022-09-09 12:48 Normal [facility] INSULINon 02-15-2022 Insulin 11.3 uIU/mL Normal 2.6-24.9 [facility] Comment on above: Performed By: #### I NSULIN #### [facility] [address] [place] [address] [address] Elver Gibson T4, T3U, FTI LABCORPon 02-15 Free Thyroxine Index 2.1 Normal 1.2-4.9 [facility] Comment on above: Performed By: #### T HYLC #### [facility] [address] [place] [address] [address] Elver Gibson T3 Uptake 30 % Normal 24-39 [facility] Comment on above: Performed By: #### T HYLC #### [facility] [address] [place] [address] [address] Elver Gibson T4 [Mass/Vol] 7.0 ug/dL Normal 4.5-12.[address] [facility] Comment on above: Performed By: #### T HYLC #### [facility] [address] [place] [address] [address] Elver Gibson BNPon 02-14-2022 Natriuretic peptide B (Bld) [Mass/Vol] 229.0 pg/mL Normal <=1,800.0 [facility] Comment on above: Performed By: #### B STAFFING ACCOUNT MANAGER, CMP, LIPID, TSH, URIC #### [facility] [address] [place], [place] [address] Dr. Elver Gibson CBC AUTO DIFFon 02-14-2022 BASO # 0.0 103/ul Normal 0.0-0.1 [facility] Comment on above: Performed By: #### C BC ####[facility] [address] [place] [id number] Gibson Basophils/100 WBC (Bld) 0.7 % Normal 0.2-2.0 [facility] Comment on above: Performed By: #### C BC ####[facility] [address] [place] [id number]. Elver Gibson EO # 0.2 103/ul Normal 0.0-0.7 [facility] Comment on above: Performed By: #### C BC ####[facility] [address]et[address] [place] [id number] Gibson Eosinophils/100 WBC (Bld) 3.9 % Normal 0.9-7.0 [facility] Comment on above: Performed By: #### C BC ####[facility] [address]jo[address] [place] [id number] Gibson Erythrocyte distribution width (RBC) [Ratio] 13.2 % Normal 11.0-15.0 [facility] Comment on above: Performed By: #### C BC ####[facility] [address] [place] [id number] Gibson Hematocrit (Bld) [Volume fraction] 42.9 % Normal 42.0-54.0 [facility] Comment on above: Performed By: #### C BC ####[facility] [address] [place] [id number] Gibson Hemoglobin (Bld) [Mass/Vol] 14.2 g/dL Normal 14.0-18.0 [facility] Comment on above: Performed By: #### C BC ####[facility] [address] [place] [id number] Gibson IG # 0.01 10e3/ul Normal 0.00-0.03 [facility] Comment on above: Performed By: #### C BC ####[facility] [address] [place] [address]DrRodolfo Gibson IG % 0.2 % Normal 0.0-0.5 [facility] Comment on above: Performed By: #### C BC ####[facility] [address] [place] [address]DrRodolfo Gibson LYMPH # 1.4 103/ul Normal 1.2-3.8 [facility] Comment on above: Performed By: #### C BC ####[facility] [address] [place] [address]DrRodolfo Gibson Lymphocytes/100 WBC (Bld) 24.0 % Normal 20.5-60.0 [facility] Comment on above: Performed By: #### C BC ####[facility] [address] [place], [place] [address]DrRodolfo Gibson MANUAL DIFF REQ NO Normal [facility] Comment on above: Performed By: #### C BC ####[facility] [address] [id number] Elver Arthur MCH (RBC) [Entitic mass] 33.3 pg Normal 25.9-34.0 [facility] Comment on above: Performed By: #### C BC ####[facility] [address] [place], [place] [address]DrRodolfo Gibson MCHC (RBC) [Mass/Vol] 33.1 g/dL Normal 29.9-35.2 [facility] Comment on above: Performed By: #### C BC ####[facility] [address]ws[address] [place], [place] [id number] Gibson MCV (RBC) [Entitic vol] 100.7 fL Critically high 80.0-94.0 [facility] Comment on above: Performed By: #### C BC ####[facility] [address] [place] [id number] Gibson MONO # 0.7 103/ul Normal 0.3-0.8 [facility] Comment on above: Performed By: #### C BC ####[facility] [address] [place] [id number]. Elver Gibson Monocytes/100 WBC (Bld) 12.7 % Critically high 1.7-12.0 [facility] Comment on above: Performed By: #### C BC ####[facility] [address] [place] [id number]. Elver Gibson NEUT # 3.3 103/ul Normal 1.4-6.5 [facility] Comment on above: Performed By: #### C BC ####[facility] [address] [place] [id number]. Elver Gibson Neutrophils/100 WBC (Bld) 58.5 % Normal 43.0-75.0 [facility] Comment on above: Performed By: #### C BC ####[facility] [address] [place] [id number]. Elver Gibson Platelet mean volume (Bld) [Entitic vol] 9.6 fL Normal 9.5-13.5 [facility] Comment on above: Performed By: #### C BC ####[facility] [address] [place] [id number]. Elver Gibson PLT 183 103/ul Normal 150-450 [facility] Comment on above: Performed By: #### C BC ####[facility] [address]filgwh[address] [place] [id number]. Elver Gibson RBC 4.26 106/ul Critically low 4.70-6.10 [facility] Comment on above: Performed By: #### C BC ####[facility] [address]sp[address]qu[address] [place] [id number]. Elver Gibson WBC 5.7 103/ul Normal 4.0-11.0 [facility] Comment on above: Performed By: #### C BC ####[facility] [address]vpr[address] [place] [id number]. Elver Gibson GLYCOHEMOGLOBIN A1Con 2021 ADA RECOMMENDATION SEE BELOW Normal [facility] Comment on above: Result Comment: ADA RECOMMENDED LIMIT 4.0 - 6.0 ADA THERAPEUTIC TARGET < 7.0 ACTION SUGGESTED > 7.0 Performed By: #### A 1C #### [facility] [address] [address] [address] Elver Gibson Glucose [Mass/Vol] 108 mg/dL Normal [facility] Comment on above: Performed By: #### A 1C #### [facility] [address] [address] [address] Elver Gibson HbA1c (Bld) [Mass fraction] 5.4 % Normal 4.5-6.2 [facility] Comment on above: Performed By: #### A 1C #### [facility] [address] [place] [address] Dr. Elver Gibson LIPID PROFILEon 02-14-2022 CHOL-HDL RATIO NORM SEE BELOW Normal [facility] Comment on above: Result Comment: 3.3 - 4.4 LOW RISK 4.4 - 7.1 AVERAGE RISK 7.1 - 11.0 MODERATE RISK >11.0 HIGH RISK Performed By: #### B STAFFING ACCOUNT MANAGER, CMP, LIPID, TSH, URIC #### [facility] [address] [address] [address] Elver Gibson Cholesterol [Mass/Vol] 174 mg/dL Normal <=200 [facility] Comment on above: Performed By: #### B STAFFING ACCOUNT MANAGER, CMP, LIPID, TSH, URIC #### [facility] [address] [address] [address] Elver Gibson Cholesterol in HDL [Mass/Vol] 63 mg/dL Critically high 40-60 [facility] Comment on above: Performed By: #### B STAFFING ACCOUNT MANAGER, CMP, LIPID, TSH, URIC #### [facility] [address] [address] [address] Elver Gibson Cholesterol in LDL [Mass/Vol] 100.4 mg/dL Normal [facility] Comment on above: Performed By: #### B STAFFING ACCOUNT MANAGER, CMP, LIPID, TSH, URIC #### [facility] [address] [address] [address] Elver Gibson Cholesterol.total/C holesterol in HDL [Mass ratio] 2.8 {ratio} Normal [facility] Comment on above: Performed By: #### B STAFFING ACCOUNT MANAGER, CMP, LIPID, TSH, URIC #### [facility] [address] [address] [address] Elver Gibson HDL NORMAL > or = 60 mg/dl - LO W CARDIOVASCULAR RISK <40 mg/dl - HIGH CARDIOVASCULAR RISK Normal [facility] Comment on above: Performed By: #### B STAFFING ACCOUNT MANAGER, CMP, LIPID, TSH, URIC #### [facility] [address] [address] [address] Elver Gibson LDL CALC NORMAL SEE BELOW Normal [facility] Comment on above: Result Comment: <100 mg/dl OPTIMAL 100 - 129 mg/dl NEAR OR ABOVE OPTIMAL 130 - 159 mg/dl BORDERLINE HIGH 160 - 189 mg/dl HIGH >190 mg/dl VERY HIGH Performed By: #### B STAFFING ACCOUNT MANAGER, CMP, LIPID, TSH, URIC #### [facility] [address] [place] [address] Dr. Elver Gibson Triglyceride [Mass/Vol] 53 mg/dL Normal <=150 [facility] Comment on above: Performed By: #### B STAFFING ACCOUNT MANAGER, CMP, LIPID, TSH, URIC #### [facility] [address] [address] [address] Elver Gibson VLDL CALC 10.6 mg/dL Normal [facility] Comment on above: Performed By: #### B STAFFING ACCOUNT MANAGER, CMP, LIPID, TSH, URIC #### [facility] [address] [place] [address] Dr. Elver Gibson PROF 14(COMP METB)on 022 Albumin [Mass/Vol] 3.7 g/dL Normal 3.4-5.0 [facility] Comment on above: Performed By: #### B STAFFING ACCOUNT MANAGER, CMP, LIPID, TSH, URIC #### [facility] [address] [place] [address] Dr. Elver Gibson Albumin/Globulin [Mass ratio] 1.1 {ratio} Normal [facility] Comment on above: Performed By: #### B STAFFING ACCOUNT MANAGER, CMP, LIPID, TSH, URIC #### [facility] [address] [place] [address] Dr. Elver Gibson ALP [Catalytic activity/Vol] 64 U/L Normal 46-116 [facility] Comment on above: Performed By: #### B STAFFING ACCOUNT MANAGER, CMP, LIPID, TSH, URIC #### [facility] [address] [address] [address] Elver Gibson ALT [Catalytic activity/Vol] 27 U/L Normal 16-63 [facility] Comment on above: Performed By: #### B STAFFING ACCOUNT MANAGER, CMP, LIPID, TSH, URIC #### [facility] [address] [place] [address] Dr. Elver Gibson Anion gap [Moles/Vol] 9.7 mmol/L Normal [facility] Comment on above: Performed By: #### B STAFFING ACCOUNT MANAGER, CMP, LIPID, TSH, URIC #### [facility] [address] [place] [address] Dr. Elver Gibson AST [Catalytic activity/Vol] 30 U/L Normal 15-37 [facility] Comment on above: Performed By: #### B STAFFING ACCOUNT MANAGER, CMP, LIPID, TSH, URIC #### [facility] [address] [place] [address] Dr. Elver Gibson Bilirubin [Mass/Vol] 0.7 mg/dL Normal 0.2-1.0 [facility] Comment on above: Performed By: #### B STAFFING ACCOUNT MANAGER, CMP, LIPID, TSH, URIC #### [facility] [address] [place] [address] Dr. Elver Gibson Calcium [Mass/Vol] 8.9 mg/dL Normal 8.5-10.1 [facility] Comment on above: Performed By: #### B STAFFING ACCOUNT MANAGER, CMP, LIPID, TSH, URIC #### [facility] [address] [place] [address] Dr. Elver Gibson Chloride [Moles/Vol] 104 mmol/L Normal 98-107 [facility] Comment on above: Performed By: #### B STAFFING ACCOUNT MANAGER, CMP, LIPID, TSH, URIC #### [facility] [address] [place] [address] Dr. Elver Gibson CO2 [Moles/Vol] 31.8 mmol/L Normal 21.0-32.0 [facility] Comment on above: Performed By: #### B STAFFING ACCOUNT MANAGER, CMP, LIPID, TSH, URIC #### [facility] [address] [place] [address] Dr. Elver Gibson Creatinine [Mass/Vol] 1.19 mg/dL Normal 0.70-1.30 [facility] Comment on above: Performed By: #### B STAFFING ACCOUNT MANAGER, CMP, LIPID, TSH, URIC #### [facility] [address] [place] [address] Dr. Elver Gibson EGFR-AF MALAWIAN >60 Normal >=60 [facility] Comment on above: Performed By: #### B STAFFING ACCOUNT MANAGER, CMP, LIPID, TSH, URIC #### [facility] [address] [place] [address] Dr. Elver Gibson EGFR-NON AF MALAWIAN 59 mL/min/1.73m2 Critically low >=60 [facility] Comment on above: Performed By: #### B STAFFING ACCOUNT MANAGER, CMP, LIPID, TSH, URIC #### [facility] [address] [place] [address] Dr. Elver Gibson Globulin (S) [Mass/Vol] 3.4 g/dL Normal [facility] Comment on above: Performed By: #### B STAFFING ACCOUNT MANAGER, CMP, LIPID, TSH, URIC #### [facility] [address] [place] [address] Dr. Elver Gibson Glucose [Mass/Vol] 97 mg/dL Normal 74-106 [facility] Comment on above: Performed By: #### B STAFFING ACCOUNT MANAGER, CMP, LIPID, TSH, URIC #### [facility] [address] [place] [address] Dr. Elver Gibson Potassium [Moles/Vol] 4.5 mmol/L Normal 3.5-5.1 [facility] Comment on above: Performed By: #### B STAFFING ACCOUNT MANAGER, CMP, LIPID, TSH, URIC #### [facility] [address] [place] [address] Dr. Elver Gibson Protein [Mass/Vol] 7.1 g/dL Normal 6.4-8.2 [facility] Comment on above: Performed By: #### B STAFFING ACCOUNT MANAGER, CMP, LIPID, TSH, URIC #### [facility] [address] [place] [address] Dr. Elver Gibson Sodium [Moles/Vol] 141 mmol/L Normal 136-145 [facility] Comment on above: Performed By: #### B STAFFING ACCOUNT MANAGER, CMP, LIPID, TSH, URIC #### [facility] [address] [place] [address] Dr. Elver Gibson Urea nitrogen [Mass/Vol] 31.0 mg/dL Critically high 7.0-18.0 [facility] Comment on above: Performed By: #### B STAFFING ACCOUNT MANAGER, CMP, LIPID, TSH, URIC #### [facility] [address] [place] [address] Dr. Elver Gibson Urea nitrogen/Creatinine [Mass ratio] 26.1 mg/mg Normal [facility] Comment on above: Performed By: #### B STAFFING ACCOUNT MANAGER, CMP, LIPID, TSH, URIC #### [facility] [address] [place] [address] Dr. Elver Gibson TSHon 02-14-2022 TSH 1.829 uIU/mL Normal 0.358-3.740 [facility] Comment on above: Performed By: #### B STAFFING ACCOUNT MANAGER, CMP, LIPID, TSH, URIC #### [facility] [address] [place] [address] Dr. Elver Gibson URIC ACID SERUMon 02-14-2022 Urate [Mass/Vol] 7.1 mg/dL Normal 3.5-7.2 [facility] Comment on above: Performed By: #### B STAFFING ACCOUNT MANAGER, CMP, LIPID, TSH, URIC #### [facility] [address] [place] [address] Dr. Elver Nicole 09-24-2021 RIGON Telephone (OPHTMN) BRANDI RAHMAN ([id number]) 1940 M Date Time Provider Department 09/24/21 [...] Reason for Visit: Received Outside Medical Records [2026] Cmt: Ho Alberto OD [phone] Fax Prescriptions as of 09/24/2021 - diltiazem [...] Status:Closed by MANSI MONTANEZ on 09/24/21 Normal [facility] Ambulatory Clinical Summaryo n 02-28-2020 Ambulatory Clinical Summary {[id number]}CD:[id number] Normal [facility] Ambulatory Clinical Summary {[id number]}CD:[id number] Normal [facility] Patient Educationon 02-28-20 20 Patient Education Family [...] dizz (more content not included)... Normal [facility] Urology Office/Clinic Noteon 02-28-2020 Urology Office/Clinic [...] When Contact Information Arsalan Ryder MD, Roger [address] Additional Instructions: 1yr. w/ KUB and [...] intravenous solution, IV, Once losartan, Oral, Daily [place]-3 Osteo Bi-Flex selenium, Oral, Daily Vitamin C, [...] Negative (09 (more content not included)... Normal [facility] Comment on above: Result Comment: Elec tronically Signed By: Arsalan Ryder MD, Roger Agosto\.br\Date and Time Signed: 02/28/20 10:32 EDT\.br\Electronically Co-Signed By: Marichuy Hernández MA\.br\Date and Time Co-Signed: 02/28/20 10:21 EDT No Panel Information [facility] Vital Signs Date Time Vital Sign Value Performing Clinician Facility 01-28-2023 13:33-0400 Body height 167.64 cm Samantha Ziegler [employer] Phone: [facility] [employer] DO Work Phone: 01-28-2023 13:33-0400 Body mass index (BMI) [Ratio] 27.92 kg/m2 [employer] Phone: [facility] [employer] DO Work Phone: 01-28-2023 13:33-0400 Body surface area Derived from formula 1.88 m2 SamanthaFounderSync Phone: [facility] [employer] DO Work Phone: 01-28-2023 13:33-0400 Body weight 78.47 kg Samantha M Hoy Work Phone: [facility] DO Work Phone: 01-28-2023 13:33-0400 Diastolic blood pressure 92 mm[Hg] Samantha M Hoy Work Phone: [facility] [facility] DO Work Phone: 01-28-2023 13:33-0400 Diastolic blood pressure 90 mm[Hg] Samantha M Hoy Work Phone: [facility] DO Work Phone: 01-28-2023 13:33-0400 Diastolic blood pressure 80 mm[Hg] Samantha M Hoy Work Phone: [facility] DO Work Phone: 01-28-2023 13:33-0400 Heart rate 84 /min Samantha M Hoy Work Phone: [facility] [facility] DO Work Phone: 01-28-2023 13:33-0400 Systolic blood pressure 162 mm[Hg] Samantha M Hoy Work Phone: [facility] [facility] DO Work Phone: 01-28-2023 13:33-0400 Systolic blood pressure 152 mm[Hg] Samantha M Hoy Work Phone: [facility] DO Work Phone: 01-28-2023 13:33-0400 Systolic blood pressure 124 mm[Hg] Samantha M Hoy Work Phone: [facility] [facility] DO Work Phone: 01-28-2023 13:33-0400 91 1 Samantha M Hoy Work Phone: [facility] [facility] DO Work Phone: Comment on above: PULRateLy 01-28-2023 13:33-0400 84 1 Samantha M Hoy Work Phone: [facility] [facility] DO Work Phone: Comment on above: PULRateSit 01-28-2023 13:33-0400 90 1 Samantha M Hoy Work Phone: [facility] DO Work Phone: Comment on above: PULRateSt 01-28-2023 13:28-0400 Body height 167.64 cm Samantha M Hoy Work Phone: [facility] [facility] DO Work Phone: 01-28-2023 13:28-0400 Body mass index (BMI) [Ratio] 27.92 kg/m2 Samantha M Hoy Work Phone: [facility] [facility] DO Work Phone: 01-28-2023 13:28-0400 Body surface area Derived from formula 1.88 m2 Samantha M Hoy Work Phone: [facility] [facility] DO Work Phone: 01-28-2023 13:28-0400 Body weight 78.47 kg Samantha M Hoy Work Phone: [facility] [facility] DO Work Phone: 01-28-2023 13:28-0400 Diastolic blood pressure 90 mm[Hg] Samantha M Hoy Work Phone: [facility] [facility] DO Work Phone: 01-28-2023 13:28-0400 Heart rate 91 /min Samantha M Hoy Work Phone: [facility] [facility] DO Work Phone: 01-28-2023 13:28-0400 Systolic blood pressure 152 mm[Hg] Samantha M Hoy Work Phone: [facility] DO Work Phone: 12-01-2022 13:03-0400 Diastolic blood pressure 60 mm[Hg] Samantha M Hoy Work Phone: [facility]Kwoi[facility]lgja[facility]on [facility] DO Work Phone: 12-01-2022 13:03-0400 Systolic blood pressure 120 mm[Hg] Samantha Toney Hoy Work Phone: UY-Njkgbmzwnj-Pna [facility] 250 DO Work Phone: 12-01-2022 12:48-0400 Body height 167.64 cm Samantha Toney Hoy Work Phone: FF-Atcqqmkdml-Vcc [facility] 250 DO Work Phone: 12-01-2022 12:48-0400 Body mass index (BMI) [Ratio] 28.41 kg/m2 Samantah Ziegler Hoy Work Phone: KP-Imhhztexda-Uvk [place] 250 DO Work Phone: 12-01-2022 12:48-0400 Body surface area Derived from formula 1.89 m2 Samantha Toney Hoy Work Phone: KB-Geqddhszzd-Sxy [place] 250 DO Work Phone: 12-01-2022 12:48-0400 Body weight 79.83 kg Samantha Ziegler Hoy Work Phone: VH-Mjyqfpzxmy-Hqn [place] 250 DO Work Phone: 12-01-2022 12:48-0400 Diastolic blood pressure 60 mm[Hg] Samantha Toney Hoy Work Phone: EY-Gdjblugxrc-Dxh meño 250 DO Work Phone: 12-01-2022 12:48-0400 Heart rate 76 /min Samantha Toney Hoy Work Phone: JM-Ytdmzsavnb-Qym [place] 250 DO Work Phone: 12-01-2022 12:48-0400 Systolic blood pressure 94 mm[Hg] Samantha M Hoy Work Phone: LH-Jgoqgzekoo-Fde alirezaky 250 DO Work Phone: 11-04-2022 07:53-0400 65 1 Samantha M Hoy Work Phone: [facility] [facility] DO Work Phone: Comment on above: [email or web address] 10-24-2022 10:01-0400 Body height 175.26 cm Samantha M Hoy Work Phone: [facility] [facility] DO Work Phone: 10-24-2022 10:01-0400 Body mass index (BMI) [Ratio] 26.58 kg/m2 Samantha M Hoy Work Phone: [facility] DO Work Phone: 10-24-2022 10:01-0400 Body surface area Derived from formula 1.98 m2 Samantha M Hoy Work Phone: [facility] [facility] DO Work Phone: 10-24-2022 10:01-0400 Body weight 81.65 kg Samantha M Hoy Work Phone: [facility] DO Work Phone: 10-24-2022 10:01-0400 Diastolic blood pressure 82 mm[Hg] Samantha M Hoy Work Phone: [facility] DO Work Phone: 10-24-2022 10:01-0400 Heart rate 84 /min Samantha M Hoy Work Phone: [facility] DO Work Phone: 10-24-2022 10:01-0400 Systolic blood pressure 144 mm[Hg] Samantha M Hoy Work Phone: [facility] DO Work Phone: Encounters Encounter Date Encounter Type Care Provider Facility Start: 12-25-2023 End: 12-25-2023 ambulatory [facility] Ambulatory Start: 05-25-2023 End: 05-25-2023 ambulatory [facility] Start: 01-28-2023 Patient encounter procedure [facility] Work Phone: Start: 01-28-[address] Deon Weeks hudsonrosamaria Rasmussen Facility: Start: 12-01-2022 Office outpatient visit 25 minutes Samantha Recio Work Phone: [facility] 250 DO Work Phone: Start: 12-01-[address] Deon Weeks hudsonrosamaria Rasmussen Facility: Start: 10-31-[address] Deon Weeks hudsonrosamaria Rasmussen Facility:[id number] Start: 10-31-2022 End: 10-31-2022 ambulatory [facility] Facility:[facility] Start: 10-31-2022 Rx Renewal Samantha Recio Work Phone: [facility] 250 DO Work Phone: Start: 10-27-2022 End: 10-27-2022 ambulatory [facility] Facility:[facility] Start: 10-24-[address] Samantha [...] Comment on above: Performed By: #### [facility] ####[address] [place], [place] [address]PlRodolfo Gibson Start: 11-14-2021 End: 11-14-2021 Computerized ophthalmic [...] Deon Rasmussen, Status: Pen, Time: 9:10 AM [facility]Laatfljntx-Ghxupcb y 250 DO Work Phone: Start: 12-01-2022 FUV, Provider: Deon Rasmussen, Status: Pen, Time: 1:00 PM FUV, Provider: Deon Rasmussen, Status: Pen, Time: 1:00 PM [facility] DO Work Phone: Start: 11-29-2022 End: 05-08-2023 OCT MACULA CIRRUS OU (BOTH EYES) OCT MACULA CIRRUS OU (BOTH EYES) OPHT Imaging Routine Epiretinal membrane (ERM) of both eyes Nevus of choroid of left eye Expected: 11/29/2022, Expires: 05/08/2023 [facility] Work Phone: Comment on above: Expected: 11/29/2022 , Expires: 05/08/2023 Start: 02-06-2022 Influenza vaccination INFLUENZ A (Season Ended) [facility] Start: 08-17-2021 COVID-19 VACCINE (4 - Booster for Moderna series) COVID-19 VACCINE (4 - Booster for Moderna series) [facility] Start: 06-08-2021 ADVANCE DIRECTIVE DISCUSSION ADVANCE DIRECTIVE DISCUSSION [facility] Start: 09-10-2006 DIABET[facility]CREEN [facility] Start: 2005 PNEUMOCOCCAL: 65+ (1 - PCV) PNEUMOCOCCAL: 65+ (1 - PCV) [facility] Start: 1990 SHINGRIX VACCINE (1 of 2) SHINGRIX VACCINE (1 of 2) [facility] Start: 09-29-1959 Urine microalbumin profile DTAP,TDAP,TD (1 - Tdap) [facility] Immunizations Immunization Date Immunization Notes Care Provider [place] pleitez 04-19-2021 Moderna COVID-19 Vac cine 100 MCG/0.5ML Intramuscular Suspension Samantha Next 2 [employer] Work Phone: [facility] 250 DO Work Phone: 2020 Moderna COVID-19 Vac cine 100 MCG/0.5ML Intramuscular Suspension Samantha M Hoy Work Phone: [facility] 250 DO Work Phone: 08-31-2020 Moderna COVID-19 Vac cine 100 MCG/0.5ML Intramuscular Suspension Samantha M Hoy Work Phone: [facility] 250 DO Work Phone: 04-07-2017 influenza virus vacc ine, unspecified formulation Samantha M Hoy Work Phone: [facility] 250 DO Work Phone: 03-25-2016 influenza virus vacc ine, unspecified formulation Samatnha M Hoy Work Phone: [facility] 250 DO Work Phone: 03-17-2016 influenza, high dose seasonal, preservative-free Samantha M Hoy Work Phone: -[facility] 250 DO Work Phone: Payers Date Payer Category Payer Self-pay 2020 Unknown MMO MMO MEDICARE SUPPLEMENT [id number] 2020-Present [phone] [address] [place] [address] Indemnity [id number] 1959 Medicare [id number] 1959 Unknown [id number] 1940 Unknown [id number] 1940 Unknown [id number] [id number] 1940 Unknown [id number] [id number] 1940 Unknown [id number] [id number] 1940 Unknown [id number] [id number] 1940 Unknown [id number] [id number] 1940 Unknown [id number] [id number] 1940 Unknown [id number] [id number] 1940 Unknown [id number] [id number] Unknown Unknown [id number] [id number] Unknown [id number] Social History Date Type Detail Facility Start: 12-14-2015 Tobacco smoking stat us NHIS Never smoked tobacco [facility] Start: 12-14-2015 Tobacco use and exposure Smokeless tobacco non-user [facility] Start: 11-14-2021 Alcohol intake Current drinke r of alcohol (finding) [facility] Start: 12-14-2015 History SDOH Alcohol Comment on occ [facility] Start: 1940 Sex Assigned At Not on file C [facility] Never a smoker Never a smoker [facility] [address] DO Work Phone: Comment on above: COFFEE DAILY; Progress note 11-14-2021 Note Date & Type Note Facility 11-14-2021 Note HNO ID: [id number] Author: Zulema Guo MD Service: ? Author Type: Physician Type: Progress Notes Filed: 11/14/2021 10:16 AM Note Text: New patient to Dr. Guo Last seen with Dr. Alberto ([place]) who thought that the choroidal nevus left [...] of its relevant components. Zulema Guo MD [facility] History of Present illness Narrative 11-14-2021 Zulema Guo MD - 11/14/2021 9:50 AM EDT Note Date & Type Note Facility 11-14-2021 History of Presen t illness Narrative New patient to Dr. Guo Last seen with Dr. 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 Epiretinal membrane (ERM) of both eyes documented in this encounter [facility] Summary Purpose Family History No Family History [...] and content) DATE CREATED AUTHOR [facility] DATE CREATED AUTHOR AUTHOR'S ORGANIZ ATION 11/14/2021 [facility] DATE CREATED AUTHOR AUTHOR'S ORGANIZ ATION 09/22/2022 [facility] DATE CREATED AUTHOR AUTHOR'S ORGANIZ ATION 11/16/2022 [facility] DATE CREATED AUTHOR AUTHOR'S ORGANIZ ATION 12/02/2022 [employer] DATE CREATED AUTHOR AUTHOR'S ORGANIZ ATION 01/29/2023 [facility] DATE CREATED AUTHOR AUTHOR'S ORGANIZ ATION 12/28/2023 [facility] Source Comments (unrecognize d section and content) In the event this informatio n is protected by the Federal Confidentiality of Alcohol and Drug Abuse Patient Records regulations: The Federal rules restrict any use of the information to criminally investigate or prosecute any alcohol or drug abuse patient.[facility] Reason for Visit (unrecogniz ed section and content) Reason Comments Epiretinal Membrane Follow Up [facility] Choroidal nevus of left eye Care Teams (unrecognized sec tion and content) Horologist Relationship Specialty Start Date End Date Levi Dumont [address] [place] [id number] PCP - General 09/11/03 FOR RECORDS [...] BE BASED ON THE PRIMARY CLINICAL RECORDS. [facility]. provides no warranty or guarantee of the accuracy or completeness of information in this document.
[2023-12-29] MEDS: APIXABAN 5 MG TABLET PO (22:24)
[2023-12-30] VITALS (11 sets, daily range): BP systolic 121–133; BP diastolic 85–94; PULSE 56–87; TEMP 36.4; O2SAT 83–97
[2023-12-30 06:24] LABS: Hematocrit 42.1 % (42.0-54.0); Hemoglobin 14.1 g/dL (14.0-18.0); Mean Corpuscular HGB Conc 33.5 g/dL (29.9-35.2); Mean Corpuscular Hemoglobin 35.3 pg (25.9-34.0); Mean Corpuscular Volume 105.3 fL (80.0-94.0); Mean Platelet Volume 10.7 fL (9.5-13.5); Platelet Count 178 10^3/uL (150-450); Red Cell Distribution Width 14.6 % (11.0-15.0); White Blood Count 5.3 10^3/uL (4.0-11.0)
[2023-12-30 06:49] LABS: Alanine Aminotransferase 37 U/L (16-63); Albumin Level 3.4 g/dL (3.4-5.0); Alkaline Phosphatase 52 U/L (46-116); Aspartate Amino Transferase 40 U/L (15-37); BUN Creatinine Ratio 23.7; Bilirubin Total 1.6 mg/dL (0.2-1.0); Calcium 9.4 mg/dL (8.5-10.1); Chloride 101 mmol/L (98-107); Estimated GFR (African America 52 (>=60); Estimated GFR (Non-African Ame 43 (>=60); Globulin 3.5 g/dL; Glucose 87 mg/dL (74-106); Magnesium 1.8 mg/dL (1.8-2.4); Potassium 3.5 mmol/L (3.5-5.1); Sodium 142 mmol/L (136-145); Total Protein 6.9 g/dL (6.4-8.2)
[2023-12-30 07:00] LABS: Anion Gap 11.8; Carbon Dioxide 32.7 mmol/L (21.0-32.0)
--- NOTE | 2023-12-30 07:00 | CA_ITS ---
Patient Name: BRANDI RAHMAN MR#: [id number] : 1940 Exam Date: 12/30/2023 Ordering Doctor: JASON CORTEZ ECHOCARDIOGRAM REPORT PROCEDURE: CA ECHO DOPPLER COMPLETE INDICATIONS: Acute CHF, atrial fibrillation, hypertension COMPARISON: None. DESCRIPTION: COMPLETE ECHOCARDIOGRAM Real-time transthoracic echocardiography with 2D, M-mode, spectral and color flow Doppler performed. QUALITY: Technical quality was good. LEFT VENTRICLE: Normal chamber size. Moderate concentric left ventricular hypertrophy. Abnormal septal motion likely due to bundle branch block. Systolic function is moderately to severely reduced. LV EF: Visual estimation of left ventricular ejection fraction is 30% DIASTOLIC: Not adequately assessed due to heart rhythm. ATRIAL SEPTUM: LEFT ATRIUM: Severe dilatation. RIGHT ATRIUM: Severe dilatation. RIGHT VENTRICLE: Moderate dilatation. Mildly decreased right ventricular systolic function. TRICUSPID VALVE: Normal mobility and thickness. No stenosis with mild to moderate regurgitation. Doppler studies reveal moderately (45-60) elevated right sided pressures. RVSP 52 mmHg MITRAL VALVE: Mildly thickened with normal mobility. Moderate mitral regurgitation. AORTIC VALVE: Normal trileaflet appearance. Mildly calcified aortic valve. Mildly diminished mobility. No evidence of aortic valve stenosis. Trivial aortic regurgitation. AORTIC ROOT: Normal diameter and appearance. Ascending aorta is mildly dilated (3.7 cm). PULMONIC VALVE: Normal thickness and mobility. No stenosis. No regurgitation. PERICARDIUM: No evidence of pericardial effusion. IVC: Not well visualized. PLEURA: CONCLUSION: 1. Moderate concentric left ventricular hypertrophy with moderately to severely reduced systolic function. LVEF is estimated at 30%. 2. Moderately dilated right ventricle with mildly reduced systolic function. 3. Severe biatrial dilatation. 4. Moderate mitral regurgitation. 5. Mild to moderate tricuspid regurgitation. 6. Moderately elevated right-sided pressures. RVSP is 52 mmHg. Adult Echocardiography Procedure Report Left Ventricle LVEDD (3.7 - 5.6 cm): 5.38 cm LVESD (2.2 - 4.0 cm): 4.74 cm LVIVS thickness (0.6 - 1.2 cm): 1.96 cm LVPW thickness (0.5 - 1.0 cm): 1.37 cm LVOT Max Gradient: 1.63 mm[Hg], 1.08 mm[Hg] LVOT Area (cm2): 0.58 m/s Peak Velocity (LVOT): 0.64 m/s, 0.52 m/s Mean Velocity (LVOT): 0.42 m/s LVOT Diameter 2.48 cm Left Atrium LA Volume Index (2D A2C): 97.16 ml/m2 Left Atrium Systolic Dimension: 5.70 cm Mitral Valve Mitral Valve E-Wave Peak Velocity: 0.86 m/s Right Ventricle Aorta AO Root Diam: 3.58 cm Ascending Ao Diam: 3.67 cm Aortic Valve AoV Area (Peak Dl): 2.67 cm2, 2.56 cm2, 2.82 cm2 AoV Area (VTI): 2.54 cm2, 2.50 cm2, 2.59 cm2 Peak Velocity(Antegrade Flow): 1.20 m/s, 0.89 m/s Peak Gradient(Antegrade Flow): 5.78 mm[Hg], 3.15 mm[Hg] Mean Velocity(Antegrade Flow): 0.97 m/s, 0.66 m/s Mean Gradient(Antegrade Flow): 3.97 mm[Hg], 2.00 mm[Hg] Velocity Time Integral: 20.31 cm, 14.29 cm Tricuspid Valve Peak Velocity (Regurgitant Flow): 2.49 m/s, 2.88 m/s, 3.04 m/s, 3.01 m/s, 3.17 m/s Pulmonic Valve Peak Velocity: 0.58 m/s Peak Gradient: 1.70 mm[Hg], 1.69 mm[Hg], 0.83 mm[Hg], 1.27 mm[Hg] Right Atrium Right Atrium Systolic Pressure: 184.27 ml, 184.27 ml Dictated by: Jt Lackey M.D. on 12/30/2023 at 15:39 Approved by: Jt Lackey M.D. on 12/30/2023 at 15:44
--- OUTSIDE RECORDS SUMMARY | 2023-12-30 07:14 | XMS_ITS | CCD ---
Author Organization [facility] [place] CliniSyor Care Team Providers Care Site Lead Name Role Phone Levi Dumont Primary Care [...] Primary Care Unavailable Deon Rasmussen Admitting Unavailable Deno Rasmussen Attending Unavailable Samantha Recio Primary Care [...] Primary Care Unavail able Hemal, Dr. Samantha Ryees Primary Care Unavail able Grady, Dr. Deon [...] Rasmussen MD Start : 24-Oct-2022 Active Saw [place] 450 MG Oral Capsule (3 sources) Saw [place] 450 MG Oral Capsule TAKE DIRECTED. Quantity: [...] 02-21-2022 Episodic Other aftercare (2 sources) Other assisted (current) drug therapy; Translations: [Other intermediate card tender (current) drug therapy] Onset: 03-18-2023 Episodic Other [...] 500 MG CAPSTAKE 1 CAPSULE Daily Saw [place] 450 MG Oral CapsuleTAKE DIRECTED. Selenium 200 [...] Vital Signs Recorded: 01Dec2022 01:03PMRecorded: 01Dec2022 12:48PM Nzyofyto76020, RUE, Sitting Zimtlpymj8563, RUE, Sitting Heart Rate76, L Radial Height5 ft 6 in Wnwhqh771 lb BMI Ujmnanwtko51.41 kg/m2 BSA Calculated1.89 Tobacco Useb) No Falls Screening (Age 18+)a) No falls within the (more content not included)... Normal FanGager (MyBrandz) Tobacco Screening.on 023 Fall risk assessment a) No falls within the last year [facility] [place] 250 DO Work Phone: Tobacco use status [facility] b) No [facility] [place] 250 DO Work Phone: ECH echo transesophageal SHARON on 10-31-2022 [facility] echo transesophageal SHARON [facility] Main [place] [address] [place] [address] Echocardiogram Signed Patient: Brandi Rahman MR#: [id number] 9 : 1940 Acct:[id number] Age/Sex: 82 / M ADM Date: 10/31/22 Loc: [place] Room: Type: [facility] Attending Dr: Deon Rasmussen MD Ordering Provider: Deon Rasmussen MD, [facility] Date of Service: 10/31/22/ ECH/ECH echo transesophageal SHARON: DYSPNEA, MR, A-FIB. Copies to: Deon Rasmussen MD, [facility] Reason For Study: DYSPNEA, MR, A-FIB. History: [...] 10/31/22 1247 Signed By: Deon Rasmussen MD, [facility] 10/31/22 1605 Normal [facility] Basic Metabolic Panelon 10-07 Anion gap [Moles/Vol] 9.3 mmol/L Normal 6.0-15.0 [facility] Comment on above: Performed By: #### B MP, CBC #### [address] Calcium [Mass/Vol] 9.1 mg/dL Normal 8.6-10.3 [facility] Comment on above: Result Comment: PERF ORMED BY: [place] [address] PATHOLOGIST MANAGER [employer] LILLIAN TILLMAN M.D. Performed By: #### B MP, CBC #### [facility] [address] [place] [address] [place] Chloride [Moles/Vol] 101 mmol/L Normal 98-107 [facility] Comment on above: Performed By: #### B MP, CBC #### [facility] [address] [place] [address] [place] CO2 [Moles/Vol] 34.3 mmol/L High 21.0-31.0 [facility] Comment on above: Performed By: #### B MP, CBC #### [facility] [address] Creatinine [Mass/Vol] 1.30 mg/dL Normal 0.70-1.30 [facility] Comment on above: Performed By: #### B MP, CBC #### [facility] [address] [place] [address] [place] GFR/1.73 sq M.predicted MDRD (S/P/Bld) [Vol rate/Area] 54.849 mL/min/{1.73_m2} Normal [facility] Comment on above: Performed By: #### B MP, CBC #### [facility] [address] Glucose [Mass/Vol] 89 mg/dL Normal 70-100 [facility] Comment on above: Result Comment: [facility] Glucose Reference Range is dependent on time and content of last meal. Glucose of more than 200 mg/dL in a nonstressed, ambulatory subject supports the diagnosis of Diabetes Mellitus. ADA recommended reference range Performed By: #### B MP, CBC #### [address] Potassium [Moles/Vol] 4.6 mmol/L Normal 3.5-5.1 [facility] Comment on above: Performed By: #### B MP, CBC #### [address] Sodium [Moles/Vol] 140 mmol/L Normal 136-145 [facility] Comment on above: Performed By: #### B MP, CBC #### [address] Urea nitrogen [Mass/Vol] 29 mg/dL High 7-25 [facility] Comment on above: Performed By: #### B MP, CBC #### [address] Complete Blood Count Auto Di ffon 10-27-2022 Basophils (Bld) [#/Vol] 0.1 10*3/uL Normal 0.0-0.2 [facility] Comment on above: Result Comment: PERF ORMED BY: [place] [address] PATHOLOGIST MANAGER [employer] LILLIAN TILLMAN M.D. Performed By: #### B MP, CBC #### [address] [place] [address] [place] Basophils/100 WBC (Bld) 1.1 % Normal . [facility] Comment on above: Performed By: #### B MP, CBC #### [address] Eosinophils (Bld) [#/Vol] 0.2 10*3/uL Normal 0.0-0.45 [facility] Comment on above: Performed By: #### B MP, CBC #### [address] Eosinophils/100 WBC (Bld) 3.2 % Normal . [facility] Comment on above: Performed By: #### B MP, CBC #### [address] Erythrocyte distribution width (RBC) [Ratio] 14.4 % Normal 12.0-14.8 [facility] Comment on above: Performed By: #### B MP, CBC #### [address] Hematocrit (Bld) [Volume fraction] 43.0 % Normal 38.8-50.0 [facility] Comment on above: Performed By: #### B MP, CBC #### [address] Hemoglobin (Bld) [Mass/Vol] 14.4 g/dL Normal 13.0-17.0 [facility] Comment on above: Performed By: #### B MP, CBC #### [address] Lymphocytes (Bld) [#/Vol] 1.0 10*3/uL Normal 1.00-4.8 [facility] Comment on above: Performed By: #### B MP, CBC #### [address] Lymphocytes/100 WBC (Bld) 21.1 % Normal . [facility] Comment on above: Performed By: #### B MP, CBC #### [address] MCH (RBC) [Entitic mass] 33.8 pg Normal 27.5-35.2 [facility] Comment on above: Performed By: #### B MP, CBC #### [address] MCV (RBC) [Entitic vol] 100.8 fL Normal 83.5-101 [facility] Comment on above: Performed By: #### B MP, CBC #### [address] Mean Corpuscular HGB Conc 33.5 g/dL Normal 32.5-35.6 [facility] Comment on above: Performed By: #### B MP, CBC #### [address] Monocytes (Bld) [#/Vol] 0.6 10*3/uL Normal 0.0-0.8 [facility] Comment on above: Performed By: #### B MP, CBC #### [address] Monocytes/100 WBC (Bld) 11.8 % Normal . [facility] Comment on above: Performed By: #### B MP, CBC #### [address] Neutrophils (Bld) [#/Vol] 2.9 10*3/uL Normal 1.8-7.7 [facility] Comment on above: Performed By: #### B MP, CBC #### [address] Neutrophils/100 WBC (Bld) 62.8 % Normal . [facility] Comment on above: Performed By: #### B MP, CBC #### [address] NRBC% 0.1 /100{WBC} Normal 0-0.5 [facility] Comment on above: Performed By: #### B MP, CBC #### [address] Platelet mean volume (Bld) [Entitic vol] 8.0 fL Normal 6.6-10.1 [facility] Comment on above: Performed By: #### B MP, CBC #### [facility] [address] Platelets (Bld) [#/Vol] 213 10*3/uL Normal 150-450 [facility] Comment on above: Performed By: #### B MP, CBC #### [facility] [address] RBC (Bld) [#/Vol] 4.27 10*6/uL Normal 3.90-5.60 [facility] Comment on above: Performed By: #### B MP, CBC #### [facility] [address] WBC (Bld) [#/Vol] 4.7 10*3/uL Normal 4.1-10.5 [facility] Comment on above: Performed By: #### B MP, CBC #### [facility] [address] Office Visit (Cardiology)on 10-24-2022 Follow-up visit [...] in adult Healthy Weight Tips; Status:Complete; Done: [id number] Some eating tips that can help you lose weight.; Status:Complete; Done: 41Spc8966 PMH: Paroxysmal atrial fibrillation Start: Indapamide 1.25 MG Oral Tablet; TAKE 1 TABLET ONCE DAILY SocHx: Never a smoker Tobacco Use Screening; Status:Complete; Done: [id number] Unlinked Stop: Eliquis 2.5 MG Oral Tablet [...] time. Had an echocardiogram done recently at [facility] which I have the report reviewed. [...] Medication NameInst (more content not included)... Normal FanGager (MyBrandz) Tobacco Screening.on 023 Adult depression screening assessment No [facility] Prior [facility]-[place] 250 DO Work Phone: Fall risk assessment a) No falls within the last year [facility]-[place] 250 DO Work Phone: Tobacco use status [facility] b) No [facility] 250 DO Work Phone: ECHOCARDIO M/2D COMPLETEon 0 09-16-2022 ECHOCARDIO M/2D COMPLETE Patient: BRANDI RAHMAN Exam Date: 09/16/2022 : 1940 Gender:M Ordering : DR SAMANTHA RECIO . Admission #: [id number] Family : Order #: [id number] CLICK HERE TO VIEW EXAM ECHOCARDIOGRAM REPORT [...] M.D. on 09/16/2022 at 20:23 Normal [facility] BNPon 09-09-2022 Natriuretic peptide B (Bld) [Mass/Vol] 154.0 pg/mL Normal <=1,800.0 [facility] Comment on above: Performed By: #### T SH, T7, CMP, BNP ####[facility] [address] [place] [address]DrRodolfo Elver Arthur CBC AUTO DIFFon 09-09-2022 BASO # 0.0 103/ul Normal 0.0-0.1 [facility] Comment on above: Performed By: #### C BC ####[facility] [address] [place] [address]Dr. Elver Gibson Basophils/100 WBC (Bld) 0.6 % Normal 0.2-2.0 [facility] Comment on above: Performed By: #### C BC ####[facility] [address] [place], [place] [address]Dr. Elver Gibson EO # 0.2 103/ul Normal 0.0-0.7 [facility] Comment on above: Performed By: #### C BC ####[facility] [address] [place], [place] [address]Dr. Elver Gibson Eosinophils/100 WBC (Bld) 4.1 % Normal 0.9-7.0 [facility] Comment on above: Performed By: #### C BC ####[facility] [address] [place], [place] [address]Dr. Elver Gibson Erythrocyte distribution width (RBC) [Ratio] 13.5 % Normal 11.0-15.[address] [facility] Comment on above: Performed By: #### C BC ####[facility] [address] [place], [place] [address]Dr. Elver Gibson Hematocrit (Bld) [Volume fraction] 42.9 % Normal 42.0-54.0 [facility] Comment on above: Performed By: #### C BC ####[facility] [address] [place], [place] [address]Dr. Elver Gibson Hemoglobin (Bld) [Mass/Vol] 14.5 g/dL Normal 14.0-18.0 [facility] Comment on above: Performed By: #### C BC ####[facility] [address] [place], [place] [address]Dr. Elver Gibson IG # 0.01 10e3/ul Normal 0.00-0.03 [facility] Comment on above: Performed By: #### C BC ####[facility] [address] [place], [place] [address]Dr. Elver Gibson IG % 0.2 % Normal 0.0-0.[address] [facility] Comment on above: Performed By: #### C BC ####[facility] [address] [place] [phone] Gibson LYMPH # 1.2 103/ul Normal 1.2-3.[address] [facility] Comment on above: Performed By: #### C BC ####[facility] [address] [place] [phone]. Elver Gibson Lymphocytes/100 WBC (Bld) 21.8 % Normal 20.5-60.[address] [facility] Comment on above: Performed By: #### C BC ####[facility] [address] [place] [address]DrRodolfo Gibson MANUAL DIFF REQ NO Normal [facility] Comment on above: Performed By: #### C BC ####[facility] [address] [place] [phone]. Elver Gibson MCH (RBC) [Entitic mass] 33.4 pg Normal 25.9-34.[address] [facility] Comment on above: Performed By: #### C BC ####[facility] [address] [place] [phone]. Elver Gibson MCHC (RBC) [Mass/Vol] 33.8 g/dL Normal 29.9-35.[address] [facility] Comment on above: Performed By: #### C BC ####[facility] Hzrixsicud[address] [place] [phone] Gibson MCV (RBC) [Entitic vol] 98.8 fL Critically high 80.0-94.[address] [facility] Comment on above: Performed By: #### C BC ####[facility] [address] [place] [phone] Gibson MONO # 0.7 103/ul Normal 0.3-0.[address] [facility] Comment on above: Performed By: #### C BC ####[facility] [address] [place] [phone]. Elver Gibson Monocytes/100 WBC (Bld) 13.3 % Critically high 1.7-12.[address] [facility] Comment on above: Performed By: #### C BC ####[facility] [address] [place] [phone]. Elver Gibson NEUT # 3.3 103/ul Normal 1.4-6.[address] [facility] Comment on above: Performed By: #### C BC ####[facility] [address] [place] [phone]. Elver Gibson Neutrophils/100 WBC (Bld) 60.0 % Normal 43.0-75.[address] [facility] Comment on above: Performed By: #### C BC ####[facility] [address] [place] [phone]. Elver Gibson Platelet mean volume (Bld) [Entitic vol] 9.5 fL Normal 9.5-13.[address] [facility] Comment on above: Performed By: #### C BC ####[facility] [address]hs[address] [place] [phone]. Elver Gibson PLT 197 103/ul Normal 150-450 [facility] Comment on above: Performed By: #### C BC ####[facility] [address]ol[address] [place] [phone]. Elver Gibson RBC 4.34 106/ul Critically low 4.70-6.10 [facility] Comment on above: Performed By: #### C BC ####[facility] Qrf[address]xxbg[address]60 [place] [phone]. Elver Gibson WBC 5.4 103/ul Normal 4.0-11.0 [facility] Comment on above: Performed By: #### C BC ####[facility] [address] [place] [phone]. Elver Gibson FREE THYROXINE INDEX T7on FTI 2.21 Normal 1.30-4.[address] [facility] Comment on above: Performed By: #### T SH, T7, CMP, BNP ####[facility] [address] [place] [phone]. Elver Arthur T3U 35.0 % Normal 33.0-40.0 [facility] Comment on above: Performed By: #### T SH, T7, CMP, BNP ####[facility] [address] [place] [address]Dr. Elver Gibson T4 [Mass/Vol] 6.30 ug/dL Normal 4.50-12.10 [facility] Comment on above: Performed By: #### T SH, T7, CMP, BNP ####[facility] [address]ps[address] [place] [address]Dr. Elver Gibson PROF 14(COMP METB)on 023 Albumin [Mass/Vol] 3.8 g/dL Normal 3.4-5.0 [facility] Comment on above: Performed By: #### T SH, T7, CMP, BNP ####[facility] [address]qs[address] [place] [address]Dr. Elver Gibson Albumin/Globulin [Mass ratio] 1.1 {ratio} Normal [facility] Comment on above: Performed By: #### T SH, T7, CMP, BNP ####[facility] [address] [place] [address]Dr. Elver Gibson ALP [Catalytic activity/Vol] 74 U/L Normal 46-[address] [facility] Comment on above: Performed By: #### T SH, T7, CMP, BNP ####[facility] Buffwsidzr[address] [place] [address]Dr. Elver Gibson ALT [Catalytic activity/Vol] 27 U/L Normal 16-[address] [facility] Comment on above: Performed By: #### T SH, T7, CMP, BNP ####[facility] Ngmbkrysdu39[address] [place] [address]Dr. Elver Gibson Anion gap [Moles/Vol] 10.8 mmol/L Normal [facility] Comment on above: Performed By: #### T SH, T7, CMP, BNP ####[facility] Sw[address]em[address] [place] [address]Dr. Elver Gibson AST [Catalytic activity/Vol] 30 U/L Normal 15-[address] [facility] Comment on above: Performed By: #### T SH, T7, CMP, BNP ####[facility] I[address]wec[address] [place] [address]Dr. Elver Gibson Bilirubin [Mass/Vol] 0.7 mg/dL Normal 0.2-1.[address] [facility] Comment on above: Performed By: #### T SH, T7, CMP, BNP ####[facility] [address]zthdeltot[address] [place] [address]Dr. Elver Gibson Calcium [Mass/Vol] 9.3 mg/dL Normal 8.5-10.1 [facility] Comment on above: Performed By: #### T SH, T7, CMP, BNP ####[facility] [address] [place], [place] [address]Dr. Elver Gibson Chloride [Moles/Vol] 104 mmol/L Normal 98-107 [facility] Comment on above: Performed By: #### T SH, T7, CMP, BNP ####[facility] [address] [place], [place] [address]Dr. Elver Gibson CO2 [Moles/Vol] 31.9 mmol/L Normal 21.0-32.0 [facility] Comment on above: Performed By: #### T SH, T7, CMP, BNP ####[facility] [address] [place], [place] [address]Dr. Elver Gibson Creatinine [Mass/Vol] 1.19 mg/dL Normal 0.70-1.30 [facility] Comment on above: Performed By: #### T SH, T7, CMP, BNP ####[facility] [address] [place], [place] [address]Dr. Elver Gibson EGFR-AF ZIMBABWEAN >60 Normal >=60 [facility] Comment on above: Performed By: #### T SH, T7, CMP, BNP ####[facility] X[address] [place], [place] [address]Dr. Elver Gibson EGFR-NON AF ZIMBABWEAN 59 mL/min/1.73m2 Critically low >=60 [facility] Comment on above: Performed By: #### T SH, T7, CMP, BNP ####[facility] [address] [place], [place] [address]Dr. Elver Gibson Globulin (S) [Mass/Vol] 3.5 g/dL Normal [facility] Comment on above: Performed By: #### T SH, T7, CMP, BNP ####[facility] Qu[address]ieyb[address] [place] [address]Dr. Elver Gibson Glucose [Mass/Vol] 124 mg/dL Critically high 74-[address] [facility] Comment on above: Performed By: #### T SH, T7, CMP, BNP ####[facility] [address]zes[address]ziyf[address] [place] [address]Dr. Elver Gibson Potassium [Moles/Vol] 4.7 mmol/L Normal 3.5-5.[address] [facility] Comment on above: Performed By: #### T SH, T7, CMP, BNP ####[facility] [address]cxos[address]rd[address] [place] [address]Dr. Elver Gibson Protein [Mass/Vol] 7.3 g/dL Normal 6.4-8.2 [facility] Comment on above: Performed By: #### T SH, T7, CMP, BNP ####[facility] [address]yxov[address] [place] [address]Dr. Elver Gibson Sodium [Moles/Vol] 142 mmol/L Normal 136-145 [facility] Comment on above: Performed By: #### T SH, T7, CMP, BNP ####[facility] [address]bx[address] [place] [address]Dr. Elver Gibson Urea nitrogen [Mass/Vol] 27.0 mg/dL Critically high 7.0-18.[address] [facility] Comment on above: Performed By: #### T SH, T7, CMP, BNP ####[facility] [address]beq[address] [place] [address]Dr. Elver Gibson Urea nitrogen/Creatinine [Mass ratio] 22.7 mg/mg Normal [facility] Comment on above: Performed By: #### T SH, T7, CMP, BNP ####[facility] [address]pqktif[address] [place] [address]Dr. Elver Gibson TSHon 09-09-2022 TSH 1.455 uIU/mL Normal 0.358-3.740 [facility] Comment on above: Performed By: #### T SH, T7, CMP, BNP ####[facility] [address]ux[address] [place] [address]Dr. Elver Gibson XR CHEST 2 Von 09-09-2022 [...] VAN VUONG Date: 2022-09-09 12:48 Normal [facility] INSULINon 02-15-2022 Insulin 11.3 uIU/mL Normal 2.6-24.9 [facility] Comment on above: Performed By: #### I NSULIN #### [facility] [address] [place] [address] [address] Elver Gibson T4, T3U, FTI LABCORPon 02-15 Free Thyroxine Index 2.1 Normal 1.2-4.9 [facility] Comment on above: Performed By: #### T HYLC #### [facility] [address] [place] [address] [address] Elver Gibson T3 Uptake 30 % Normal 24-39 [facility] Comment on above: Performed By: #### T HYLC #### [facility] [address] [place] [address] [address] Elver Gibson T4 [Mass/Vol] 7.0 ug/dL Normal 4.5-12.0 [facility] Comment on above: Performed By: #### T HYLC #### [facility] [address] [place] [address] [address] Elver Gibson BNPon 02-14-2022 Natriuretic peptide B (Bld) [Mass/Vol] 229.0 pg/mL Normal <=1,800.0 [facility] Comment on above: Performed By: #### B TIGHT COOPER, CMP, LIPID, TSH, URIC #### [facility] [address] [place], [place] [address] Dr. Elver Gibson CBC AUTO DIFFon 02-14-2022 BASO # 0.0 103/ul Normal 0.0-0.[address] [facility] Comment on above: Performed By: #### C BC ####[facility] [address]cou[address] [place] [phone] Gibson Basophils/100 WBC (Bld) 0.7 % Normal 0.2-2.[address] [facility] Comment on above: Performed By: #### C BC ####[facility] Qclwqoidhb7487 [place] [phone]. Elver Gibson EO # 0.2 103/ul Normal 0.0-0.[address] [facility] Comment on above: Performed By: #### C BC ####[facility] Zhjginbsym[address] [place] [phone] Gibson Eosinophils/100 WBC (Bld) 3.9 % Normal 0.9-7.[address] [facility] Comment on above: Performed By: #### C BC ####[facility] [address]ystgbqa280[address] [place] [phone] Gibson Erythrocyte distribution width (RBC) [Ratio] 13.2 % Normal 11.0-15.[address] [facility] Comment on above: Performed By: #### C BC ####[facility] [address]fwh[address] [place] [phone] Gibson Hematocrit (Bld) [Volume fraction] 42.9 % Normal 42.0-54.0 [facility] Comment on above: Performed By: #### C BC ####[facility] [address]tvoodndfq8992 [place] [phone] Gibson Hemoglobin (Bld) [Mass/Vol] 14.2 g/dL Normal 14.0-18.[address] [facility] Comment on above: Performed By: #### C BC ####[facility] [address]qq67[address] [place] [phone] Gibson IG # 0.01 10e3/ul Normal 0.00-0.[address] [facility] Comment on above: Performed By: #### C BC ####[facility] [address]le[address]hlwnx[address] [place] [address]DrRodolfo Gibson IG % 0.2 % Normal 0.0-0.[address] [facility] Comment on above: Performed By: #### C BC ####[facility] [address]wxncmatf27[address] [place] [address]DrRodolfo Gibson LYMPH # 1.4 103/ul Normal 1.2-3.[address] [facility] Comment on above: Performed By: #### C BC ####[facility] [address]fxf[address]awd[address] [place] [address]DrRodolfo Gibson Lymphocytes/100 WBC (Bld) 24.0 % Normal 20.5-60.[address] [facility] Comment on above: Performed By: #### C BC ####[facility] [address] [place], [place] [address]DrRodolfo Gibson MANUAL DIFF REQ NO Normal [facility] Comment on above: Performed By: #### C BC ####[facility] Pr[address]rpinqm[address] [place] [phone] Elver Arthur MCH (RBC) [Entitic mass] 33.3 pg Normal 25.9-34.[address] [facility] Comment on above: Performed By: #### C BC ####[facility] [address] [place], [place] [address]DrRodolfo Gibson MCHC (RBC) [Mass/Vol] 33.1 g/dL Normal 29.9-35.[address] [facility] Comment on above: Performed By: #### C BC ####[facility] [address] [place], [place] [address]DrRodolfo Gibson MCV (RBC) [Entitic vol] 100.7 fL Critically high 80.0-94.[address] [facility] Comment on above: Performed By: #### C BC ####[facility] [address]frfei[address] [place] [phone] Gibson MONO # 0.7 103/ul Normal 0.3-0.8 [facility] Comment on above: Performed By: #### C BC ####[facility] [id number] [place] [id number]. Elver Gibson Monocytes/100 WBC (Bld) 12.7 % Critically high 1.7-12.[address] [facility] Comment on above: Performed By: #### C BC ####[facility] [id number] [place] [id number]. Elver Gibson NEUT # 3.3 103/ul Normal 1.4-6.[address] [facility] Comment on above: Performed By: #### C BC ####[facility] [id number] [place] [id number]. Elver Gibson Neutrophils/100 WBC (Bld) 58.5 % Normal 43.0-75.[address] [facility] Comment on above: Performed By: #### C BC ####[facility] [address] [place] [id number]. Elver iGbson Platelet mean volume (Bld) [Entitic vol] 9.6 fL Normal 9.5-13.[address] [facility] Comment on above: Performed By: #### C BC ####[facility] [address] [place] [id number]. Elver Gibson PLT 183 103/ul Normal 150-[address] [facility] Comment on above: Performed By: #### C BC ####[facility] [id number] [place] [id number]. Elver Gibson RBC 4.26 106/ul Critically low 4.70-6.10 [facility] Comment on above: Performed By: #### C BC ####[facility] [address] [place] [id number]. Elver Gibson WBC 5.7 103/ul Normal 4.0-11.0 [facility] Comment on above: Performed By: #### C BC ####[facility] [address] [place] [id number]. Elver Gibson GLYCOHEMOGLOBIN A1Con 2021 ADA RECOMMENDATION SEE BELOW Normal [facility] Comment on above: Result Comment: ADA RECOMMENDED LIMIT 4.0 - 6.0 ADA THERAPEUTIC TARGET < 7.0 ACTION SUGGESTED > 7.0 Performed By: #### A 1C #### [facility] [address] [address] [address] Elver Gibson Glucose [Mass/Vol] 108 mg/dL Normal [facility] Comment on above: Performed By: #### A 1C #### [facility] [address] [address] [address] Elver Gibson HbA1c (Bld) [Mass fraction] 5.4 % Normal 4.5-6.[address] [facility] Comment on above: Performed By: #### A 1C #### [facility] [address] [place] [address] Dr. Elver Gibson LIPID PROFILEon 02-14-2022 CHOL-HDL RATIO NORM SEE BELOW Normal [facility] Comment on above: Result Comment: 3.3 - 4.4 LOW RISK 4.4 - 7.1 AVERAGE RISK 7.1 - 11.0 MODERATE RISK >11.0 HIGH RISK Performed By: #### B TIGHT COOPER, CMP, LIPID, TSH, URIC #### [facility] [address] [address] [address] Elver Gibson Cholesterol [Mass/Vol] 174 mg/dL Normal <=[address] [facility] Comment on above: Performed By: #### B TIGHT COOPER, CMP, LIPID, TSH, URIC #### [facility] [address] [address] [address] Elver Gibson Cholesterol in HDL [Mass/Vol] 63 mg/dL Critically high 40-[address] [facility] Comment on above: Performed By: #### B TIGHT COOPER, CMP, LIPID, TSH, URIC #### [facility] [address] [address] [address] Elver Gibson Cholesterol in LDL [Mass/Vol] 100.4 mg/dL Normal [facility] Comment on above: Performed By: #### B TIGHT COOPER, CMP, LIPID, TSH, URIC #### [facility] [address] [address] [address] Elver Gibson Cholesterol.total/C holesterol in HDL [Mass ratio] 2.8 {ratio} Normal [facility] Comment on above: Performed By: #### B TIGHT COOPER, CMP, LIPID, TSH, URIC #### [facility] [address] [address] [address] Elver Gibson HDL NORMAL > or = 60 mg/dl - LO W CARDIOVASCULAR RISK <40 mg/dl - HIGH CARDIOVASCULAR RISK Normal [facility] Comment on above: Performed By: #### B TIGHT COOPER, CMP, LIPID, TSH, URIC #### [facility] [address] [address] [address] Elver Gibson LDL CALC NORMAL SEE BELOW Normal [facility] Comment on above: Result Comment: <100 mg/dl OPTIMAL 100 - 129 mg/dl NEAR OR ABOVE OPTIMAL 130 - 159 mg/dl BORDERLINE HIGH 160 - 189 mg/dl HIGH >190 mg/dl VERY HIGH Performed By: #### B TIGHT COOPER, CMP, LIPID, TSH, URIC #### [facility] [address] [place] [address] Dr. Elver Gibson Triglyceride [Mass/Vol] 53 mg/dL Normal <=[address] [facility] Comment on above: Performed By: #### B TIGHT COOPER, CMP, LIPID, TSH, URIC #### [facility] [address] [address] [address] Elver Gibson VLDL CALC 10.6 mg/dL Normal [facility] Comment on above: Performed By: #### B TIGHT COOPER, CMP, LIPID, TSH, URIC #### [facility] [address] [place] [address] Dr. Elver Gibson PROF 14(COMP METB)on 022 Albumin [Mass/Vol] 3.7 g/dL Normal 3.4-5.0 [facility] Comment on above: Performed By: #### B TIGHT COOPER, CMP, LIPID, TSH, URIC #### [facility] [address] [place] [address] Dr. Elver Gibson Albumin/Globulin [Mass ratio] 1.1 {ratio} Normal [facility] Comment on above: Performed By: #### B TIGHT COOPER, CMP, LIPID, TSH, URIC #### [facility] [address] [place] [address] Dr. Elver Gibson ALP [Catalytic activity/Vol] 64 U/L Normal 46-116 [facility] Comment on above: Performed By: #### B TIGHT COOPER, CMP, LIPID, TSH, URIC #### [facility] [address] [address] [address] Elver Gibson ALT [Catalytic activity/Vol] 27 U/L Normal 16-[address] [facility] Comment on above: Performed By: #### B TIGHT COOPER, CMP, LIPID, TSH, URIC #### [facility] [address] [place] [address] Dr. Elver Gibson Anion gap [Moles/Vol] 9.7 mmol/L Normal [facility] Comment on above: Performed By: #### B TIGHT COOPER, CMP, LIPID, TSH, URIC #### [facility] [address] [place] [address] Dr. Elver Gibson AST [Catalytic activity/Vol] 30 U/L Normal 15-[address] [facility] Comment on above: Performed By: #### B TIGHT COOPER, CMP, LIPID, TSH, URIC #### [facility] [address] [place] [address] Dr. Elver Gibson Bilirubin [Mass/Vol] 0.7 mg/dL Normal 0.2-1.[address] [facility] Comment on above: Performed By: #### B TIGHT COOPER, CMP, LIPID, TSH, URIC #### [facility] [address] [place] [address] Dr. Elver Gibson Calcium [Mass/Vol] 8.9 mg/dL Normal 8.5-10.1 [facility] Comment on above: Performed By: #### B TIGHT COOPER, CMP, LIPID, TSH, URIC #### [facility] [address] [place] [address] Dr. Elver Gibson Chloride [Moles/Vol] 104 mmol/L Normal 98-[address] [facility] Comment on above: Performed By: #### B TIGHT COOPER, CMP, LIPID, TSH, URIC #### [facility] [address] [place] [address] Dr. Elver Gibson CO2 [Moles/Vol] 31.8 mmol/L Normal 21.0-32.0 [facility] Comment on above: Performed By: #### B TIGHT COOPER, CMP, LIPID, TSH, URIC #### [facility] [address] [place] [address] Dr. Elver Gibson Creatinine [Mass/Vol] 1.19 mg/dL Normal 0.70-1.30 [facility] Comment on above: Performed By: #### B TIGHT COOPER, CMP, LIPID, TSH, URIC #### [facility] [address] [place] [address] Dr. Elver Gibson EGFR-AF ZIMBABWEAN >60 Normal >=60 [facility] Comment on above: Performed By: #### B TIGHT COOPER, CMP, LIPID, TSH, URIC #### [facility] [address] [place] [address] Dr. Elver Gibson EGFR-NON AF ZIMBABWEAN 59 mL/min/1.73m2 Critically low >=60 [facility] Comment on above: Performed By: #### B TIGHT COOPER, CMP, LIPID, TSH, URIC #### [facility] [address] [place] [address] Dr. Elver Gibson Globulin (S) [Mass/Vol] 3.4 g/dL Normal [facility] Comment on above: Performed By: #### B TIGHT COOPER, CMP, LIPID, TSH, URIC #### [facility] [address] [place] [address] Dr. Elver Gibson Glucose [Mass/Vol] 97 mg/dL Normal 74-106 [facility] Comment on above: Performed By: #### B TIGHT COOPER, CMP, LIPID, TSH, URIC #### [facility] [address] [place] [address] Dr. Elver Gibson Potassium [Moles/Vol] 4.5 mmol/L Normal 3.5-5.1 [facility] Comment on above: Performed By: #### B TIGHT COOPER, CMP, LIPID, TSH, URIC #### [facility] [address] [place] [address] Dr. Elver Gibson Protein [Mass/Vol] 7.1 g/dL Normal 6.4-8.2 [facility] Comment on above: Performed By: #### B TIGHT COOPER, CMP, LIPID, TSH, URIC #### [facility] [address] [place] [address] Dr. Elver Gibson Sodium [Moles/Vol] 141 mmol/L Normal 136-145 [facility] Comment on above: Performed By: #### B TIGHT COOPER, CMP, LIPID, TSH, URIC #### [facility] [address] [place] [address] Dr. Elver Gibson Urea nitrogen [Mass/Vol] 31.0 mg/dL Critically high 7.0-18.[address] [facility] Comment on above: Performed By: #### B TIGHT COOPER, CMP, LIPID, TSH, URIC #### [facility] [address] [place] [address] Dr. Elver Gibson Urea nitrogen/Creatinine [Mass ratio] 26.1 mg/mg Normal [facility] Comment on above: Performed By: #### B TIGHT COOPER, CMP, LIPID, TSH, URIC #### [facility] [address] [place] [address] Dr. Elver Gibson TSHon 02-14-2022 TSH 1.829 uIU/mL Normal 0.358-3.740 [facility] Comment on above: Performed By: #### B TIGHT COOPER, CMP, LIPID, TSH, URIC #### [facility] [address] [place] [address] Dr. Elver Gibson URIC ACID SERUMon 02-14-2022 Urate [Mass/Vol] 7.1 mg/dL Normal 3.5-7.2 [facility] Comment on above: Performed By: #### B TIGHT COOPER, CMP, LIPID, TSH, URIC #### [facility] [address] [place] [address] Dr. Elver Nicole 09-24-2021 RIGON Telephone (OPHTMN) BRANDI RAHMAN ([id number]) 1940 M Date Time Provider Department 09/24/21 [...] Reason for Visit: Received Outside Medical Records [[id number]] Cmt: Ho Alberto OD [phone] Fax Prescriptions as of 09/24/2021 - diltiazem [...] Status:Closed by MANSI MONTANEZ on 09/24/21 Normal [facility] Ambulatory Clinical Summaryo n 02-28-2020 Ambulatory Clinical Summary {[id number]}CD:[id number] Normal [facility] Ambulatory Clinical Summary {[id number]}CD:[id number] Normal [facility] Patient Educationon 02-28-20 20 Patient Education [...] dizz (more content not included)... Normal Siu [facility] Urology Office/Clinic Noteon 02-28-2020 Urology Office/Clinic Note [...] When Contact Information Arsalan Ryder MD, Roger [address] Additional Instructions: 1yr. w/ KUB and [...] intravenous solution, IV, Once losartan, Oral, Daily [place]-3 Osteo Bi-Flex selenium, Oral, Daily Vitamin C, [...] Negative (09 (more content not included)... Normal [facility] Comment on above: Result Comment: Elec tronically Signed By: Arsalan Ryder MD, Roger Agosto\.br\Date and Time Signed: 02/28/20 10:32 EDT\.br\Electronically Co-Signed By: Marichuy Hernández MA\.br\Date and Time Co-Signed: 02/28/20 10:21 EDT No Panel Information [facility] Vital Signs Date Time Vital Sign Value Performing Clinician Facility 01-28-2023 13:33-0400 Body height 167.64 cm Samantha Ziegler [employer] Phone: [facility] DO Work Phone: 01-28-2023 13:33-0400 Body mass index (BMI) [Ratio] 27.92 kg/m2 [employer] Phone: [facility] DO Work Phone: 01-28-2023 13:33-0400 Body surface area Derived from formula 1.88 m2 [email or web address] Phone: [facility] [employer] DO Work Phone: 01-28-2023 13:33-0400 Body weight 78.47 kg Samantha M Hoy Work Phone: [facility] 250 DO Work Phone: 01-28-2023 13:33-0400 Diastolic blood pressure 92 mm[Hg] Samantha M Hoy Work Phone: [facility] 250 DO Work Phone: 01-28-2023 13:33-0400 Diastolic blood pressure 90 mm[Hg] Samantha M Hoy Work Phone: [facility] 250 DO Work Phone: 01-28-2023 13:33-0400 Diastolic blood pressure 80 mm[Hg] Samantha M Hoy Work Phone: [facility] 250 DO Work Phone: 01-28-2023 13:33-0400 Heart rate 84 /min Samantha M Hoy Work Phone: [facility] [place] 250 DO Work Phone: 01-28-2023 13:33-0400 Systolic blood pressure 162 mm[Hg] Samantha M Hoy Work Phone: [facility] 250 DO Work Phone: 01-28-2023 13:33-0400 Systolic blood pressure 152 mm[Hg] Samantha M Hoy Work Phone: [facility] DO Work Phone: 01-28-2023 13:33-0400 Systolic blood pressure 124 mm[Hg] Samantha M Hoy Work Phone: [facility] 250 DO Work Phone: 01-28-2023 13:33-0400 91 1 Samantha M Hoy Work Phone: [facility] 250 DO Work Phone: Comment on above: PULRateLy 01-28-2023 13:33-0400 84 1 Samantha M Hoy Work Phone: [facility] 250 DO Work Phone: Comment on above: PUL[employer]Sit 01-28-2023 13:33-0400 90 1 Samantha M Hoy Work Phone: [facility] DO Work Phone: Comment on above: PUL[employer]St 01-28-2023 13:28-0400 Body height 167.64 cm Samantha M Hoy Work Phone: [facility] 250 DO Work Phone: 01-28-2023 13:28-0400 Body mass index (BMI) [Ratio] 27.92 kg/m2 Samantha M Hoy Work Phone: [facility] 250 DO Work Phone: 01-28-2023 13:28-0400 Body surface area Derived from formula 1.88 m2 Samantha M Hoy Work Phone: [facility] 250 DO Work Phone: 01-28-2023 13:28-0400 Body weight 78.47 kg Samantha M Hoy Work Phone: [facility] 250 DO Work Phone: 01-28-2023 13:28-0400 Diastolic blood pressure 90 mm[Hg] Samantha M Hoy Work Phone: [facility] 250 DO Work Phone: 01-28-2023 13:28-0400 Heart rate 91 /min Samantha M Hoy Work Phone: [facility] 250 DO Work Phone: 01-28-2023 13:28-0400 Systolic blood pressure 152 mm[Hg] Samantha M Hoy Work Phone: [facility] DO Work Phone: 12-01-2022 13:03-0400 Diastolic blood pressure 60 mm[Hg] Samantha M Hoy Work Phone: [facility]Nunoqeiupw-Qwu [facility] 250 DO Work Phone: 12-01-2022 13:03-0400 Systolic blood pressure 120 mm[Hg] Samantha Toney Hoy Work Phone: ZH-Qhlxmuyncd-Ams [facility] 250 DO Work Phone: 12-01-2022 12:48-0400 Body height 167.64 cm Samantha Toney Hoy Work Phone: EJ-Cclfaphxia-Xno [facility] 250 DO Work Phone: 12-01-2022 12:48-0400 Body mass index (BMI) [Ratio] 28.41 kg/m2 Samantha Ziegler Hoy Work Phone: IB-Jyhoymjfpx-Ikz [facility] 250 DO Work Phone: 12-01-2022 12:48-0400 Body surface area Derived from formula 1.89 m2 Samantha Toney Hoy Work Phone: JT-Jcaahqkqkf-Yqz [facility] 250 DO Work Phone: 12-01-2022 12:48-0400 Body weight 79.83 kg Samantha Ziegler Hoy Work Phone: JC-Mqzemhgzsv-Hsl [facility] 250 DO Work Phone: 12-01-2022 12:48-0400 Diastolic blood pressure 60 mm[Hg] Samantha Toney Hoy Work Phone: NT-Fhlmajpdir-Qid meño 250 DO Work Phone: 12-01-2022 12:48-0400 Heart rate 76 /min Samantha Toney Hoy Work Phone: FW-Larimiqrbw-Nbs [facility] 250 DO Work Phone: 12-01-2022 12:48-0400 Systolic blood pressure 94 mm[Hg] Samantha M Hoy Work Phone: GQ-Kcwggpjtyu-Pmc alirezaky 250 DO Work Phone: 11-04-2022 07:53-0400 65 1 Samantha M Hoy Work Phone: [facility] 250 DO Work Phone: Comment on above: [id number] 10-24-2022 10:01-0400 Body height 175.26 cm Samantha M Hoy Work Phone: [facility] 250 DO Work Phone: 10-24-2022 10:01-0400 Body mass index (BMI) [Ratio] 26.58 kg/m2 Samantha M Hoy Work Phone: [facility] DO Work Phone: 10-24-2022 10:01-0400 Body surface area Derived from formula 1.98 m2 Samantha M Hoy Work Phone: [facility] 250 DO Work Phone: 10-24-2022 10:01-0400 Body weight 81.65 kg Samantha M Hoy Work Phone: [facility] DO Work Phone: 10-24-2022 10:01-0400 Diastolic blood pressure 82 mm[Hg] Samantha M Hoy Work Phone: [facility] 250 DO Work Phone: 10-24-2022 10:01-0400 Heart rate 84 /min Samantha M Hoy Work Phone: [facility] 250 DO Work Phone: 10-24-2022 10:01-0400 Systolic blood pressure 144 mm[Hg] Samantha M Hoy Work Phone: [facility] 250 DO Work Phone: Encounters Encounter Date Encounter Type Care Provider Facility Start: 12-25-2023 End: 12-25-2023 ambulatory [facility] Start: 05-25-2023 End: 05-25-2023 ambulatory [facility] Start: 01-28-2023 Patient encounter procedure [facility] Work Phone: Start: 01-28-[address] Deon Weeks buffalorosamaria Rasmussen Facility: Start: 12-01-2022 Office outpatient visit 25 minutes Samantha Recio Work Phone: [facility] 250 DO Work Phone: Start: 12-01-[address] Deon Weeks buffalorosamaria Rasmussen Facility: Start: 10-31-[address] Deon Weeks buffalorosamaria Rasmussen Facility:[id number] Start: 10-31-2022 End: 10-31-2022 ambulatory [facility] Facility:[facility] Start: 10-31-2022 Rx Renewal Samantha Recio Work Phone: [facility] 250 DO Work Phone: Start: 10-27-2022 End: 10-27-2022 ambulatory [facility] Facility:[facility] Start: 10-24-[address] Samantha Recio Facility: Start: 09-16-2022 End: 09-17-[address] SAMANTAH RECIO . Facility:H1 Start: 09-09-2022 End: 09-10-2022 [...] Comment on above: Performed By: #### [facility] ####[id number] [place], [place] [address]GhRodolfo Gibson Start: 11-14-2021 End: 11-14-2021 Computerized ophthalmic [...] Deon Rasmussen, Status: Pen, Time: 9:10 AM SW-Hpzhhelpqo-Hnsyzvy y 250 DO Work Phone: Start: 12-01-2022 FUV, Provider: Deon Rasmussen, Status: Pen, Time: 1:00 PM FUV, Provider: Deon Rasmussen, Status: Pen, Time: 1:00 PM [facility] 250 DO Work Phone: Start: 11-29-2022 End: 05-08-2023 OCT MACULA CIRRUS OU (BOTH EYES) OCT MACULA CIRRUS OU (BOTH EYES) OPHT Imaging Routine Epiretinal membrane (ERM) of both eyes Nevus of choroid of left eye Expected: 11/29/2022, Expires: 05/08/2023 [facility] Work Phone: Comment on above: Expected: 11/29/2022 , Expires: 05/08/2023 Start: 02-06-2022 Influenza vaccination INFLUENZ A (Season Ended) [facility] Start: 08-17-2021 COVID-19 VACCINE (4 - Booster for Moderna series) COVID-19 VACCINE (4 - Booster for Moderna series) [facility] Start: 06-08-2021 ADVANCE DIRECTIVE DISCUSSION ADVANCE DIRECTIVE DISCUSSION [facility] Start: 09-10-2006 DIABET[facility] SCREEN [facility] Start: 2005 PNEUMOCOCCAL: 65+ (1 - PCV) PNEUMOCOCCAL: 65+ (1 - PCV) [facility] Start: 1990 SHINGRIX VACCINE (1 of 2) SHINGRIX VACCINE (1 of 2) [facility] Start: 09-29-1959 Urine microalbumin profile DTAP,TDAP,TD (1 - Tdap) [facility] Immunizations Immunization Date Immunization Notes Care Provider Glenroy pleitez 04-19-2021 Moderna COVID-19 Vac cine 100 MCG/0.5ML Intramuscular Suspension Samantha [employer] Work Phone: [facility] [employer] 250 DO Work Phone: 2020 Moderna COVID-19 Vac cine 100 MCG/0.5ML Intramuscular Suspension Samantha M Hoy Work Phone: [facility] [employer] 250 DO Work Phone: 08-31-2020 Moderna COVID-19 Vac cine 100 MCG/0.5ML Intramuscular Suspension Samantha M Hoy Work Phone: [facility] [employer] 250 DO Work Phone: 04-07-2017 influenza virus vacc ine, unspecified formulation Samantha M Hoy Work Phone: [facility] [employer] 250 DO Work Phone: 03-25-2016 influenza virus vacc ine, unspecified formulation Samantha M Hoy Work Phone: [facility] [employer] 250 DO Work Phone: 03-17-2016 influenza, high dose seasonal, preservative-free Samantha M Hoy Work Phone: -[facility] 250 DO Work Phone: Payers Date Payer Category Payer Self-pay 2020 Unknown MMO MMO MEDICARE SUPPLEMENT [id number] 2020-Present [phone] [address] [place] [address] Indemnity [id number] 1959 Medicare [id number] 1959 Unknown [id number] 1940 Unknown [id number] 1940 Unknown [id number] 1940 Unknown [id number] [id number] 1940 Unknown [id number] 1940 Unknown [id number] 1940 Unknown [id number] 1940 Unknown [id number] [id number] 1940 Unknown [id number] 1940 Unknown [id number] Unknown Unknown [id number] [id number] Unknown [id number] Social History Date Type Detail Facility Start: 12-14-2015 Tobacco smoking stat us NHIS Never smoked tobacco [facility] Start: 12-14-2015 Tobacco use and exposure Smokeless tobacco non-user [facility] Start: 11-14-2021 Alcohol intake Current drinke r of alcohol (finding) [facility] Start: 12-14-2015 History SDOH Alcohol Comment on occ [facility] Start: 1940 Sex Assigned At Not on file [facility] Never a smoker Never a smoker [facility] 250 DO Work Phone: Comment on above: COFFEE DAILY; Progress note 11-14-2021 Note Date & Type Note Facility 11-14-2021 Note HNO ID: [id number] Author: Zulema Guo MD Service: ? Author Type: Physician Type: Progress Notes Filed: 11/14/2021 10:16 AM Note Text: New patient to Dr. Guo Last seen with Dr. Alberto ([place]) who thought that the choroidal nevus left [...] of its relevant components. Zulema Guo MD [facility] History of Present illness Narrative 11-14-2021 Zulema Guo MD - 11/14/2021 9:50 AM EDT Note Date & Type Note Facility 11-14-2021 History of Presen t illness Narrative New patient to Dr. Guo Last seen with Dr. 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 Epiretinal membrane (ERM) of both eyes documented in this encounter [facility] Summary Purpose Family History No Family [...] and content) DATE CREATED AUTHOR [facility]/20[facility] DATE CREATED AUTHOR AUTHOR'S ORGANIZ ATION 11/14/2021 [facility] DATE CREATED AUTHOR AUTHOR'S ORGANIZ ATION 09/22/2022 [facility] DATE CREATED AUTHOR AUTHOR'S ORGANIZ ATION 11/16/2022 [facility] DATE CREATED AUTHOR AUTHOR'S ORGANIZ ATION 12/02/2022 [employer] DATE CREATED AUTHOR AUTHOR'S ORGANIZ ATION 01/29/2023 [facility] DATE CREATED AUTHOR AUTHOR'S ORGANIZ ATION 12/28/2023 [facility] Ambulatory Source Comments (unrecognize d section and content) In the event this informatio n is protected by the Federal Confidentiality of Alcohol and Drug Abuse Patient Records regulations: The Federal rules restrict any use of the information to criminally investigate or prosecute any alcohol or drug abuse patient.[facility] Reason for Visit (unrecogniz ed section and content) Reason Comments Epiretinal Membrane Follow Up [facility] Choroidal nevus of left eye Care Teams (unrecognized sec tion and content) Site Lead Relationship Specialty Start Date End Date Levi Dumont [address] [place] [id number] PCP - General 09/11/03 FOR RECORDS [...] BE BASED ON THE PRIMARY CLINICAL RECORDS. [facility]. provides no warranty or guarantee of the accuracy or completeness of information in this document.
--- OUTSIDE RECORDS SUMMARY | 2023-12-30 07:16 | XMS_ITS | CCD ---
Author Organization [facility] CliniSypr Care Team Providers Care Tank Setter Name Role Phone Levi Dumont Primary Care [...] Rasmussen MD Start : 24-Oct-2022 Active Saw [place] 450 MG Oral Capsule (3 sources) Saw [place] 450 MG Oral Capsule TAKE DIRECTED. Quantity: [...] 02-21-2022 Episodic Other aftercare (2 sources) Other custodial (current) drug therapy; Translations: [Other adjunct faculty for medical terminology (current) drug therapy] Onset: 03-18-2023 Episodic Other [...] 500 MG CAPSTAKE 1 CAPSULE Daily Saw [place] 450 MG Oral CapsuleTAKE DIRECTED. Selenium 200 [...] Vital Signs Recorded: 01Dec2022 01:03PMRecorded: 01Dec2022 12:48PM [id number], RUE, Sitting Ddfsjsqnt8781, RUE, Sitting Heart Rate76, L Radial Height5 ft 6 in Fpkyhy018 lb BMI Wdxmpypytc93.41 kg/m2 BSA Calculated1.89 Tobacco Useb) No Falls Screening (Age 18+)a) No falls within the (more content not included)... Normal [employer] Tobacco Screening.on 023 Fall risk assessment a) No falls within the last year [facility]- Maya 250 DO Work Phone: Tobacco use status [facility] b) No [facility]- [place] 250 DO Work Phone: ECH echo transesophageal SHARON on 10-31-2022 [facility] echo transesophageal [facility] Main [place] [address] [place] [address] Echocardiogram Signed Patient: Brandi Rahman MR#: [id number] 9 : 1940 Acct:[id number] Age/Sex: 82 / M ADM Date: 10/31/22 Loc: IN Room: Type: [facility] Attending Dr: Deon Rasmussen MD Ordering Provider: Deon Rasmussen MD, [facility] Date of Service: 10/31/22/ ECH/ECH echo transesophageal SHARON: DYSPNEA, MR, A-FIB. Copies to: Deon Rasmussen MD, [facility] Reason For Study: DYSPNEA, MR, A-FIB. [...] 10/31/22 1247 Signed By: Deon Rasmussen MD, [facility] 10/31/22 1605 Normal [facility] Basic Metabolic Panelon 10-07 Anion gap [Moles/Vol] 9.3 mmol/L Normal 6.0-15.0 [facility] Comment on above: Performed By: #### B MP, CBC #### [address] Calcium [Mass/Vol] 9.1 mg/dL Normal 8.6-10.3 [facility] Comment on above: Result Comment: PERF ORMED BY: [place] [address] PATHOLOGIST DOCUMENTATION BILLING CLERK LILLIAN TILLMAN M.D. Performed By: #### B MP, CBC #### [facility] [address] [place] [address] [place] Chloride [Moles/Vol] 101 mmol/L Normal 98-107 [facility] Comment on above: Performed By: #### B MP, CBC #### [facility] [address] [place] [address] [place] CO2 [Moles/Vol] 34.3 mmol/L High 21.0-31.0 [facility] Comment on above: Performed By: #### B MP, CBC #### [facility] [address] Creatinine [Mass/Vol] 1.30 mg/dL Normal 0.70-1.30 [facility] Comment on above: Performed By: #### B MP, CBC #### [facility] [address] [place] [address] [place] GFR/1.73 sq M.predicted MDRD (S/P/Bld) [Vol rate/Area] 54.849 mL/min/{1.73_m2} Normal [facility] Comment on above: Performed By: #### B MP, CBC #### [facility] [address] Glucose [Mass/Vol] 89 mg/dL Normal 70-100 [facility] Comment on above: Result Comment: [facility] Glucose Reference Range is dependent on time and content of last meal. Glucose of more than 200 mg/dL in a nonstressed, ambulatory subject supports the diagnosis of Diabetes Mellitus. ADA recommended reference range Performed By: #### B MP, CBC #### [address] Potassium [Moles/Vol] 4.6 mmol/L Normal 3.5-5.1 [facility] Comment on above: Performed By: #### B MP, CBC #### [address] Sodium [Moles/Vol] 140 mmol/L Normal 136-145 [facility] Comment on above: Performed By: #### B MP, CBC #### [address] Urea nitrogen [Mass/Vol] 29 mg/dL High 7-25 [facility] Comment on above: Performed By: #### B MP, CBC #### [address] Complete Blood Count Auto Di ffon 10-27-2022 Basophils (Bld) [#/Vol] 0.1 10*3/uL Normal 0.0-0.2 [facility] Comment on above: Result Comment: PERF ORMED BY: [place] [address] PATHOLOGIST DOCUMENTATION BILLING CLERK LILLIAN TILLMAN M.D. Performed By: #### B MP, CBC #### [address] [place] [address] [place] Basophils/100 WBC (Bld) 1.1 % Normal . [facility] Comment on above: Performed By: #### B MP, CBC #### [address] Eosinophils (Bld) [#/Vol] 0.2 10*3/uL Normal 0.0-0.45 [facility] Comment on above: Performed By: #### B MP, CBC #### [address] Eosinophils/100 WBC (Bld) 3.2 % Normal . [facility] Comment on above: Performed By: #### B MP, CBC #### [address] Erythrocyte distribution width (RBC) [Ratio] 14.4 % Normal 12.0-14.8 [facility] Comment on above: Performed By: #### B MP, CBC #### [address] Hematocrit (Bld) [Volume fraction] 43.0 % Normal 38.8-50.0 [facility] Comment on above: Performed By: #### B MP, CBC #### [address] Hemoglobin (Bld) [Mass/Vol] 14.4 g/dL Normal 13.0-17.0 [facility] Comment on above: Performed By: #### B MP, CBC #### [address] Lymphocytes (Bld) [#/Vol] 1.0 10*3/uL Normal 1.00-4.8 [facility] Comment on above: Performed By: #### B MP, CBC #### [address] Lymphocytes/100 WBC (Bld) 21.1 % Normal . [facility] Comment on above: Performed By: #### B MP, CBC #### [address] MCH (RBC) [Entitic mass] 33.8 pg Normal 27.5-35.2 [facility] Comment on above: Performed By: #### B MP, CBC #### [address] MCV (RBC) [Entitic vol] 100.8 fL Normal 83.5-101 [facility] Comment on above: Performed By: #### B MP, CBC #### [address] Mean Corpuscular HGB Conc 33.5 g/dL Normal 32.5-35.6 [facility] Comment on above: Performed By: #### B MP, CBC #### [address] Monocytes (Bld) [#/Vol] 0.6 10*3/uL Normal 0.0-0.8 [facility] Comment on above: Performed By: #### B MP, CBC #### [address] Monocytes/100 WBC (Bld) 11.8 % Normal . [facility] Comment on above: Performed By: #### B MP, CBC #### [address] Neutrophils (Bld) [#/Vol] 2.9 10*3/uL Normal 1.8-7.7 [facility] Comment on above: Performed By: #### B MP, CBC #### [address] Neutrophils/100 WBC (Bld) 62.8 % Normal . [facility] Comment on above: Performed By: #### B MP, CBC #### [address] NRBC% 0.1 /100{WBC} Normal 0-0.5 [facility] Comment on above: Performed By: #### B MP, CBC #### [address] Platelet mean volume (Bld) [Entitic vol] 8.0 fL Normal 6.6-10.1 [facility] Comment on above: Performed By: #### B MP, CBC #### [facility] [address] Platelets (Bld) [#/Vol] 213 10*3/uL Normal 150-450 [facility] Comment on above: Performed By: #### B MP, CBC #### [facility] [address] RBC (Bld) [#/Vol] 4.27 10*6/uL Normal 3.90-5.60 [facility] Comment on above: Performed By: #### B MP, CBC #### [facility] [address] WBC (Bld) [#/Vol] 4.7 10*3/uL Normal 4.1-10.5 [facility] Comment on above: Performed By: #### B MP, CBC #### [facility] [address] Office Visit (Cardiology)on 10-24-2022 Follow-up visit [...] in adult Healthy Weight Tips; Status:Complete; Done: [id number] Some eating tips that can help you lose weight.; Status:Complete; Done: [id number] PMH: Paroxysmal atrial fibrillation Start: Indapamide 1.25 MG Oral Tablet; TAKE 1 TABLET ONCE DAILY SocHx: Never a smoker Tobacco Use Screening; Status:Complete; Done: [id number] Unlinked Stop: Eliquis 2.5 MG Oral Tablet [...] time. Had an echocardiogram done recently at [facility] which I have the report reviewed. It [...] Medication NameInst (more content not included)... Normal [employer] Tobacco Screening.on 023 Adult depression screening assessment No [facility] [employer]-[place] 250 DO Work Phone: Fall risk assessment a) No falls within the last year [facility] Heart-[place] 250 DO Work Phone: Tobacco use status [facility] b) No [facility] [employer]-[place] 250 DO Work Phone: ECHOCARDIO M/2D COMPLETEon 0 09-16-2022 ECHOCARDIO M/2D COMPLETE Patient: BRANDI RAHMAN Exam Date: 09/16/2022 : 1940 Gender:M Ordering : DR SAMANTHA RECIO . Admission #: [id number] Family : Order #: [id number] CLICK HERE TO VIEW EXAM ECHOCARDIOGRAM REPORT [...] M.D. on 09/16/2022 at 20:23 Normal [facility] BNPon 09-09-2022 Natriuretic peptide B (Bld) [Mass/Vol] 154.0 pg/mL Normal <=1,800.0 [facility] Comment on above: Performed By: #### T SH, T7, CMP, BNP ####[facility] [address] [place] [address]DrRodolfo Elver Arthur CBC AUTO DIFFon 09-09-2022 BASO # 0.0 103/ul Normal 0.0-0.1 [facility] Comment on above: Performed By: #### C BC ####[facility] [address] [place] [address]Dr. Elver Gibson Basophils/100 WBC (Bld) 0.6 % Normal 0.2-2.0 [facility] Comment on above: Performed By: #### C BC ####[facility] V[address] [place], [place] [address]Dr. Elver Gibson EO # 0.2 103/ul Normal 0.0-0.7 [facility] Comment on above: Performed By: #### C BC ####[facility] Eadsdebjsi[address] [place], [place] [address]Dr. Evler Gibson Eosinophils/100 WBC (Bld) 4.1 % Normal 0.9-7.0 [facility] Comment on above: Performed By: #### C BC ####[facility] Riftfrlzva[address] [place], [place] [address]Dr. Elver Gibson Erythrocyte distribution width (RBC) [Ratio] 13.5 % Normal 11.0-15.0 [facility] Comment on above: Performed By: #### C BC ####[facility] Pdofzsacgh[address] [place], [place] [address]Dr. Elver Gibson Hematocrit (Bld) [Volume fraction] 42.9 % Normal 42.0-54.0 [facility] Comment on above: Performed By: #### C BC ####[facility] Kzricjcxra[address] [place], [place] [address]Dr. Elver Gibson Hemoglobin (Bld) [Mass/Vol] 14.5 g/dL Normal 14.0-18.0 [facility] Comment on above: Performed By: #### C BC ####[facility] Mrnbwckzxy[address] [place], [place] [address]Dr. Elver Gibson IG # 0.01 10e3/ul Normal 0.00-0.03 [facility] Comment on above: Performed By: #### C BC ####[facility] [address] [place], [place] [address]Dr. Elver Gibson IG % 0.2 % Normal 0.0-0.5 [facility] Comment on above: Performed By: #### C BC ####[facility] [address] [place] [id number] Gibson LYMPH # 1.2 103/ul Normal 1.2-3.8 [facility] Comment on above: Performed By: #### C BC ####[facility] [address] [place] [address]Dr. Elver Gibson Lymphocytes/100 WBC (Bld) 21.8 % Normal 20.5-60.0 [facility] Comment on above: Performed By: #### C BC ####[facility] [address] [place] [address]DrRodolfo Gibson MANUAL DIFF REQ NO Normal [facility] Comment on above: Performed By: #### C BC ####[facility] [address] [place] [id number]. Elver Gibson MCH (RBC) [Entitic mass] 33.4 pg Normal 25.9-34.0 [facility] Comment on above: Performed By: #### C BC ####[facility] Jarqxcdfsq[address] [place] [address]Dr. Elver Gibson MCHC (RBC) [Mass/Vol] 33.8 g/dL Normal 29.9-35.2 [facility] Comment on above: Performed By: #### C BC ####[facility] [address]amlcwwf[address] [place] [address]11DrRodolfo Gibson MCV (RBC) [Entitic vol] 98.8 fL Critically high 80.0-94.0 [facility] Comment on above: Performed By: #### C BC ####[facility] [address]yxry[address] [place] [address]DrRodolfo Gibson MONO # 0.7 103/ul Normal 0.3-0.8 [facility] Comment on above: Performed By: #### C BC ####[facility] [address]mkvnnet[address] [place] [address]Dr. Elver Gibson Monocytes/100 WBC (Bld) 13.3 % Critically high 1.7-12.0 [facility] Comment on above: Performed By: #### C BC ####[facility] [address]gzok[address] [place] [address]Dr. Elver Gibson NEUT # 3.3 103/ul Normal 1.4-6.5 [facility] Comment on above: Performed By: #### C BC ####[facility] Clegonjgrb[address] [place] [address]Dr. Elver Gibson Neutrophils/100 WBC (Bld) 60.0 % Normal 43.0-75.0 [facility] Comment on above: Performed By: #### C BC ####[facility] Ydrxrxqome68[address] [place] [address]Dr. Elver Gibson Platelet mean volume (Bld) [Entitic vol] 9.5 fL Normal 9.5-13.5 [facility] Comment on above: Performed By: #### C BC ####[facility] [address]caf[address] [place] [address]Dr. Elver Gibson PLT 197 103/ul Normal 150-450 [facility] Comment on above: Performed By: #### C BC ####[facility] [address]ff[address] [place] [address]Dr. Elver Gibson RBC 4.34 106/ul Critically low 4.70-6.10 [facility] Comment on above: Performed By: #### C BC ####[facility] J[address]wrksdxxo5[address] [place] [address]Dr. Elver Gibson WBC 5.4 103/ul Normal 4.0-11.0 [facility] Comment on above: Performed By: #### C BC ####[facility] [address]kwfq[address] [place] [address]Dr. Elver Gibson FREE THYROXINE INDEX T7on FTI 2.21 Normal 1.30-4.50 [facility] Comment on above: Performed By: #### T SH, T7, CMP, BNP ####[facility] [address] [place] [address]Dr. Elver Arthur T3U 35.0 % Normal 33.0-40.0 [facility] Comment on above: Performed By: #### T SH, T7, CMP, BNP ####[facility] Er[address]urba[address] [place] [address]Dr. Elver Gibson T4 [Mass/Vol] 6.30 ug/dL Normal 4.50-12.10 [facility] Comment on above: Performed By: #### T SH, T7, CMP, BNP ####[facility] [address]apsurg[address] [place] [address]Dr. Elver Gibson PROF 14(COMP METB)on 023 Albumin [Mass/Vol] 3.8 g/dL Normal 3.4-5.0 [facility] Comment on above: Performed By: #### T SH, T7, CMP, BNP ####[facility] W[address]unexaao[address] [place] [address]Dr. Elver Gibson Albumin/Globulin [Mass ratio] 1.1 {ratio} Normal [facility] Comment on above: Performed By: #### T SH, T7, CMP, BNP ####[facility] O[address]xcwh[address] [place] [address]Dr. Elver Gibson ALP [Catalytic activity/Vol] 74 U/L Normal 46-116 [facility] Comment on above: Performed By: #### T SH, T7, CMP, BNP ####[facility] Teow[address]cfi[address] [place] [address]Dr. Elver Gibson ALT [Catalytic activity/Vol] 27 U/L Normal 16-63 [facility] Comment on above: Performed By: #### T SH, T7, CMP, BNP ####[facility] M[address]rtzv27[address] [place] [address]Dr. Elver Gibson Anion gap [Moles/Vol] 10.8 mmol/L Normal [facility] Comment on above: Performed By: #### T SH, T7, CMP, BNP ####[facility] [address]rmdoqb[address] [place] [address]Dr. Elver Gibson AST [Catalytic activity/Vol] 30 U/L Normal 15-37 [facility] Comment on above: Performed By: #### T SH, T7, CMP, BNP ####[facility] Ecxasefnbi[address] [place] [address]Dr. Elver Gibson Bilirubin [Mass/Vol] 0.7 mg/dL Normal 0.2-1.0 [facility] Comment on above: Performed By: #### T SH, T7, CMP, BNP ####[facility] Z[address]wbyjxo[address] [place] [address]Dr. Elver Gibson Calcium [Mass/Vol] 9.3 mg/dL Normal 8.5-10.1 [facility] Comment on above: Performed By: #### T SH, T7, CMP, BNP ####[facility] [address]onw[address] [place], [place] [address]Dr. Elver Gibson Chloride [Moles/Vol] 104 mmol/L Normal 98-107 [facility] Comment on above: Performed By: #### T SH, T7, CMP, BNP ####[facility] Elprhyipal3[address] [place], [place] [address]Dr. Elver Gibson CO2 [Moles/Vol] 31.9 mmol/L Normal 21.0-32.0 [facility] Comment on above: Performed By: #### T SH, T7, CMP, BNP ####[facility] Dnkgyboabe94[address] [place], [place] [address]Dr. Elver Gibson Creatinine [Mass/Vol] 1.19 mg/dL Normal 0.70-1.30 [facility] Comment on above: Performed By: #### T SH, T7, CMP, BNP ####[facility] Geykjzjebg[address] [place], [place] [address]Dr. Elver Gibson EGFR-AF PERUVIAN >60 Normal >=60 [facility] Comment on above: Performed By: #### T SH, T7, CMP, BNP ####[facility] Wwe[address]uzvght[address] [place], [place] [address]Dr. Elver Gibson EGFR-NON AF PERUVIAN 59 mL/min/1.73m2 Critically low >=60 [facility] Comment on above: Performed By: #### T SH, T7, CMP, BNP ####[facility] [address]egfe[address] [place], [place] [address]Dr. Elver Gibson Globulin (S) [Mass/Vol] 3.5 g/dL Normal [facility] Comment on above: Performed By: #### T SH, T7, CMP, BNP ####[facility] [address]ne[address] [place] [address]Dr. Elver Gibson Glucose [Mass/Vol] 124 mg/dL Critically high 74-106 [facility] Comment on above: Performed By: #### T SH, T7, CMP, BNP ####[facility] Nrhwaraeuz[address] [place] [address]Dr. Elver Gibson Potassium [Moles/Vol] 4.7 mmol/L Normal 3.5-5.1 [facility] Comment on above: Performed By: #### T SH, T7, CMP, BNP ####[facility] [address]rezdfg39[address] [place] [address]Dr. Elver Gibson Protein [Mass/Vol] 7.3 g/dL Normal 6.4-8.2 [facility] Comment on above: Performed By: #### T SH, T7, CMP, BNP ####[facility] N[address]qclruhrt[address] [place] [address]Dr. Elver Gibson Sodium [Moles/Vol] 142 mmol/L Normal 136-145 [facility] Comment on above: Performed By: #### T SH, T7, CMP, BNP ####[facility] [address]sooeiurv[address] [place] [address]Dr. Elvre Gibson Urea nitrogen [Mass/Vol] 27.0 mg/dL Critically high 7.0-18.0 [facility] Comment on above: Performed By: #### T SH, T7, CMP, BNP ####[facility] [address]hw[address]oy[address] [place] [address]Dr. Elver Gibson Urea nitrogen/Creatinine [Mass ratio] 22.7 mg/mg Normal [facility] Comment on above: Performed By: #### T SH, T7, CMP, BNP ####[facility] Bmjxasqvrr[address] [place] [address]Dr. Elver Gibson TSHon 09-09-2022 TSH 1.455 uIU/mL Normal 0.358-3.740 [facility] Comment on above: Performed By: #### T SH, T7, CMP, BNP ####[facility] F[address]uyoiy[address] [place] [address]Dr. Elver Gibson XR CHEST 2 Von 09-09-2022 [...] VAN VUONG Date: 2022-09-09 12:48 Normal [facility] INSULINon 02-15-2022 Insulin 11.3 uIU/mL Normal 2.6-24.9 [facility] Comment on above: Performed By: #### I NSULIN #### [facility] [address] [place] [address] [address] Elver Gibson T4, T3U, FTI LABCORPon 02-15 Free Thyroxine Index 2.1 Normal 1.2-4.9 [facility] Comment on above: Performed By: #### T HYLC #### [facility] [address] [place] [address] [address] Elver Gibson T3 Uptake 30 % Normal 24-39 [facility] Comment on above: Performed By: #### T HYLC #### [facility] [address] [place] [address] [address] Elver Gibson T4 [Mass/Vol] 7.0 ug/dL Normal 4.5-12.0 [facility] Comment on above: Performed By: #### T HYLC #### [facility] [address] [place] [address] [address] Elver Gibson BNPon 02-14-2022 Natriuretic peptide B (Bld) [Mass/Vol] 229.0 pg/mL Normal <=1,800.0 [facility] Comment on above: Performed By: #### B EXTENSION SERVICE AGENT, CMP, LIPID, TSH, URIC #### [facility] [address] [place], [place] [address] Dr. Elver Gibson CBC AUTO DIFFon 02-14-2022 BASO # 0.0 103/ul Normal 0.0-0.1 [facility] Comment on above: Performed By: #### C BC ####[facility] [address]aqim[address] [place] [address]DrRodolfo Gibson Basophils/100 WBC (Bld) 0.7 % Normal 0.2-2.0 [facility] Comment on above: Performed By: #### C BC ####[facility] [address]uvzry[address] [place] [address]Dr. Elver Gibson EO # 0.2 103/ul Normal 0.0-0.7 [facility] Comment on above: Performed By: #### C BC ####[facility] W[address]xpavfxl14[address] [place] [address]DrRodolfo Gibson Eosinophils/100 WBC (Bld) 3.9 % Normal 0.9-7.0 [facility] Comment on above: Performed By: #### C BC ####[facility] [address]yrfbtwh[address] [place] [address]DrRodolfo Gibson Erythrocyte distribution width (RBC) [Ratio] 13.2 % Normal 11.0-15.0 [facility] Comment on above: Performed By: #### C BC ####[facility] [address]uzwjafw8[address] [place] [address]DrRodolfo Gibson Hematocrit (Bld) [Volume fraction] 42.9 % Normal 42.0-54.0 [facility] Comment on above: Performed By: #### C BC ####[facility] Z[address]lyrojha40[address] [place] [address]DrRodolfo Gibson Hemoglobin (Bld) [Mass/Vol] 14.2 g/dL Normal 14.0-18.0 [facility] Comment on above: Performed By: #### C BC ####[facility] T[address]qakyyuv[address] [place] [address]DrRodolfo Gibson IG # 0.01 10e3/ul Normal 0.00-0.03 [facility] Comment on above: Performed By: #### C BC ####[facility] E[address]pcpdlb5[address] [place] [address]DrRodolfo Gibson IG % 0.2 % Normal 0.0-0.5 [facility] Comment on above: Performed By: #### C BC ####[facility] Hwuahmifpb[address] [place] [address]DrRodolfo Gibson LYMPH # 1.4 103/ul Normal 1.2-3.8 [facility] Comment on above: Performed By: #### C BC ####[facility] Oryksmsxba5[address] [place] [address]DrRodolfo Gibson Lymphocytes/100 WBC (Bld) 24.0 % Normal 20.5-60.0 [facility] Comment on above: Performed By: #### C BC ####[facility] [address]ub[address]ai[address] [place], [place] [address]DrRodolfo Gibson MANUAL DIFF REQ NO Normal [facility] Comment on above: Performed By: #### C BC ####[facility] [address]opchlspy[address] [place] [address]DrRodolfo Elver Arthur MCH (RBC) [Entitic mass] 33.3 pg Normal 25.9-34.0 [facility] Comment on above: Performed By: #### C BC ####[facility] [address]ormspva[address] [place], [place] [address]DrRodolfo Gibson MCHC (RBC) [Mass/Vol] 33.1 g/dL Normal 29.9-35.2 [facility] Comment on above: Performed By: #### C BC ####[facility] [address] [place], [place] [address]DrRodolfo Gibson MCV (RBC) [Entitic vol] 100.7 fL Critically high 80.0-94.0 [facility] Comment on above: Performed By: #### C BC ####[facility] [address]oytyefzc[address] [place] [address]DrRodolfo Gibson MONO # 0.7 103/ul Normal 0.3-0.8 [facility] Comment on above: Performed By: #### C BC ####[facility] T[address]kegdwbzs[address] [place] [address]Dr. Elver Gibson Monocytes/100 WBC (Bld) 12.7 % Critically high 1.7-12.0 [facility] Comment on above: Performed By: #### C BC ####[facility] [address]tlagrlupa[address] [place] [address]Dr. Elver Gibson NEUT # 3.3 103/ul Normal 1.4-6.5 [facility] Comment on above: Performed By: #### C BC ####[facility] [address]zkdahsi76[address] [place] [address]Dr. Elver Gibson Neutrophils/100 WBC (Bld) 58.5 % Normal 43.0-75.0 [facility] Comment on above: Performed By: #### C BC ####[facility] Qnvuxbrswy38[address] [place] [address]Dr. Elver Gibson Platelet mean volume (Bld) [Entitic vol] 9.6 fL Normal 9.5-13.5 [facility] Comment on above: Performed By: #### C BC ####[facility] [address]vcetumhe[address] [place] [address]Dr. Elver Gibson PLT 183 103/ul Normal 150-450 [facility] Comment on above: Performed By: #### C BC ####[facility] Wnhykyjzwj8404 [place] [address]Dr. Elver Gibson RBC 4.26 106/ul Critically low 4.70-6.10 [facility] Comment on above: Performed By: #### C BC ####[facility] Vcllohquym35[address] [place] [address]Dr. Elver Gibson WBC 5.7 103/ul Normal 4.0-11.0 [facility] Comment on above: Performed By: #### C BC ####[facility] [address]ksilydfb[address] [place] [address]Dr. Elver Gibson GLYCOHEMOGLOBIN A1Con 2021 ADA RECOMMENDATION SEE BELOW Normal [facility] Comment on above: Result Comment: ADA RECOMMENDED LIMIT 4.0 - 6.0 ADA THERAPEUTIC TARGET < 7.0 ACTION SUGGESTED > 7.0 Performed By: #### A 1C #### [facility] [address] [place] [address] [address] Elver Gibson Glucose [Mass/Vol] 108 mg/dL Normal [facility] Comment on above: Performed By: #### A 1C #### [facility] [address] [address] [address] Elver Gibson HbA1c (Bld) [Mass fraction] 5.4 % Normal 4.5-6.2 [facility] Comment on above: Performed By: #### A 1C #### [facility] [address] [place] [address] Dr. Elver Gibson LIPID PROFILEon 02-14-2022 CHOL-HDL RATIO NORM SEE BELOW Normal [facility] Comment on above: Result Comment: 3.3 - 4.4 LOW RISK 4.4 - 7.1 AVERAGE RISK 7.1 - 11.0 MODERATE RISK >11.0 HIGH RISK Performed By: #### B EXTENSION SERVICE AGENT, CMP, LIPID, TSH, URIC #### [facility] [address] [address] [address] Elver Gibson Cholesterol [Mass/Vol] 174 mg/dL Normal <=200 [facility] Comment on above: Performed By: #### B EXTENSION SERVICE AGENT, CMP, LIPID, TSH, URIC #### [facility] [address] [address] [address] Elver Gibson Cholesterol in HDL [Mass/Vol] 63 mg/dL Critically high 40-60 [facility] Comment on above: Performed By: #### B EXTENSION SERVICE AGENT, CMP, LIPID, TSH, URIC #### [facility] [address] [address] [address] Elver Gibson Cholesterol in LDL [Mass/Vol] 100.4 mg/dL Normal [facility] Comment on above: Performed By: #### B EXTENSION SERVICE AGENT, CMP, LIPID, TSH, URIC #### [facility] [address] [address] [address] Elver Gibson Cholesterol.total/C holesterol in HDL [Mass ratio] 2.8 {ratio} Normal [facility] Comment on above: Performed By: #### B EXTENSION SERVICE AGENT, CMP, LIPID, TSH, URIC #### [facility] [address] [address] [address] Elver Gibson HDL NORMAL > or = 60 mg/dl - LO W CARDIOVASCULAR RISK <40 mg/dl - HIGH CARDIOVASCULAR RISK Normal [facility] Comment on above: Performed By: #### B EXTENSION SERVICE AGENT, CMP, LIPID, TSH, URIC #### [facility] [address] [address] [address] Elver Gibson LDL CALC NORMAL SEE BELOW Normal [facility] Comment on above: Result Comment: <100 mg/dl OPTIMAL 100 - 129 mg/dl NEAR OR ABOVE OPTIMAL 130 - 159 mg/dl BORDERLINE HIGH 160 - 189 mg/dl HIGH >190 mg/dl VERY HIGH Performed By: #### B EXTENSION SERVICE AGENT, CMP, LIPID, TSH, URIC #### [facility] [address] [place] [address] Dr. Elver Gibson Triglyceride [Mass/Vol] 53 mg/dL Normal <=150 [facility] Comment on above: Performed By: #### B EXTENSION SERVICE AGENT, CMP, LIPID, TSH, URIC #### [facility] [address] [address] [address] Elver Gibson VLDL CALC 10.6 mg/dL Normal [facility] Comment on above: Performed By: #### B EXTENSION SERVICE AGENT, CMP, LIPID, TSH, URIC #### [facility] [address] [place] [address] Dr. Elver Gibson PROF 14(COMP METB)on 022 Albumin [Mass/Vol] 3.7 g/dL Normal 3.4-5.0 [facility] Comment on above: Performed By: #### B EXTENSION SERVICE AGENT, CMP, LIPID, TSH, URIC #### [facility] [address] [place] [address] Dr. Elver Gibson Albumin/Globulin [Mass ratio] 1.1 {ratio} Normal [facility] Comment on above: Performed By: #### B EXTENSION SERVICE AGENT, CMP, LIPID, TSH, URIC #### [facility] [address] [place] [address] Dr. Elver Gibson ALP [Catalytic activity/Vol] 64 U/L Normal 46-116 [facility] Comment on above: Performed By: #### B EXTENSION SERVICE AGENT, CMP, LIPID, TSH, URIC #### [facility] [address] [address] [address] Elver Gibson ALT [Catalytic activity/Vol] 27 U/L Normal 16-63 [facility] Comment on above: Performed By: #### B EXTENSION SERVICE AGENT, CMP, LIPID, TSH, URIC #### [facility] [address] [place] [address] Dr. Elver Gibson Anion gap [Moles/Vol] 9.7 mmol/L Normal [facility] Comment on above: Performed By: #### B EXTENSION SERVICE AGENT, CMP, LIPID, TSH, URIC #### [facility] [address] [place] [address] Dr. Elver Gibson AST [Catalytic activity/Vol] 30 U/L Normal 15-37 [facility] Comment on above: Performed By: #### B EXTENSION SERVICE AGENT, CMP, LIPID, TSH, URIC #### [facility] [address] [place] [address] Dr. Elver Gibson Bilirubin [Mass/Vol] 0.7 mg/dL Normal 0.2-1.0 [facility] Comment on above: Performed By: #### B EXTENSION SERVICE AGENT, CMP, LIPID, TSH, URIC #### [facility] [address] [place] [address] Dr. Elver Gibson Calcium [Mass/Vol] 8.9 mg/dL Normal 8.5-10.1 [facility] Comment on above: Performed By: #### B EXTENSION SERVICE AGENT, CMP, LIPID, TSH, URIC #### [facility] [address] [place] [address] Dr. Elver Gibson Chloride [Moles/Vol] 104 mmol/L Normal 98-107 [facility] Comment on above: Performed By: #### B EXTENSION SERVICE AGENT, CMP, LIPID, TSH, URIC #### [facility] [address] [place] [address] Dr. Elver Gibson CO2 [Moles/Vol] 31.8 mmol/L Normal 21.0-32.0 [facility] Comment on above: Performed By: #### B EXTENSION SERVICE AGENT, CMP, LIPID, TSH, URIC #### [facility] [address] [place] [address] Dr. Elver Gibson Creatinine [Mass/Vol] 1.19 mg/dL Normal 0.70-1.30 [facility] Comment on above: Performed By: #### B EXTENSION SERVICE AGENT, CMP, LIPID, TSH, URIC #### [facility] [address] [place] [address] Dr. Elver Gibson EGFR-AF PERUVIAN >60 Normal >=60 [facility] Comment on above: Performed By: #### B EXTENSION SERVICE AGENT, CMP, LIPID, TSH, URIC #### [facility] [address] [place] [address] Dr. Elver Gibson EGFR-NON AF PERUVIAN 59 mL/min/1.73m2 Critically low >=60 [facility] Comment on above: Performed By: #### B EXTENSION SERVICE AGENT, CMP, LIPID, TSH, URIC #### [facility] [address] [place] [address] Dr. Elver Gibson Globulin (S) [Mass/Vol] 3.4 g/dL Normal [facility] Comment on above: Performed By: #### B EXTENSION SERVICE AGENT, CMP, LIPID, TSH, URIC #### [facility] [address] [place] [address] Dr. Elver Gibson Glucose [Mass/Vol] 97 mg/dL Normal 74-106 [facility] Comment on above: Performed By: #### B EXTENSION SERVICE AGENT, CMP, LIPID, TSH, URIC #### [facility] [address] [place] [address] Dr. Elver Gibson Potassium [Moles/Vol] 4.5 mmol/L Normal 3.5-5.1 [facility] Comment on above: Performed By: #### B EXTENSION SERVICE AGENT, CMP, LIPID, TSH, URIC #### [facility] [address] [place] [address] Dr. Elver Gibson Protein [Mass/Vol] 7.1 g/dL Normal 6.4-8.2 [facility] Comment on above: Performed By: #### B EXTENSION SERVICE AGENT, CMP, LIPID, TSH, URIC #### [facility] [address] [place] [address] Dr. Elver Gibson Sodium [Moles/Vol] 141 mmol/L Normal 136-145 [facility] Comment on above: Performed By: #### B EXTENSION SERVICE AGENT, CMP, LIPID, TSH, URIC #### [facility] [address] [place] [address] Dr. Elver Gibson Urea nitrogen [Mass/Vol] 31.0 mg/dL Critically high 7.0-18.0 [facility] Comment on above: Performed By: #### B EXTENSION SERVICE AGENT, CMP, LIPID, TSH, URIC #### [facility] [address] [place] [address] Dr. Elver Gibson Urea nitrogen/Creatinine [Mass ratio] 26.1 mg/mg Normal [facility] Comment on above: Performed By: #### B EXTENSION SERVICE AGENT, CMP, LIPID, TSH, URIC #### [facility] [address] [place] [address] Dr. Elver Gibson TSHon 02-14-2022 TSH 1.829 uIU/mL Normal 0.358-3.740 [facility] Comment on above: Performed By: #### B EXTENSION SERVICE AGENT, CMP, LIPID, TSH, URIC #### [facility] [address] [place] [address] Dr. Elver Gibson URIC ACID SERUMon 02-14-2022 Urate [Mass/Vol] 7.1 mg/dL Normal 3.5-7.2 [facility] Comment on above: Performed By: #### B EXTENSION SERVICE AGENT, CMP, LIPID, TSH, URIC #### [facility] [address] [place] [address] Dr. Elver Nicole 09-24-2021 RIGON Telephone (OPHTMN) BRANDI RAHMAN ([id number]) 1940 M Date Time Provider Department 09/24/21 [...] Reason for Visit: Received Outside Medical Records [[id number]] Cmt: Ho Alberto OD [phone] Fax Prescriptions as of 09/24/2021 - diltiazem [...] Status:Closed by MANSI MONTANEZ on 09/24/21 Normal [facility] Ambulatory Clinical Summaryo n 02-28-2020 Ambulatory Clinical Summary {[id number]}CD:[id number] Normal [facility] Ambulatory Clinical Summary {[id number]}CD:[id number] Normal [facility] Patient Educationon 02-28-20 20 Patient Education [...] dizz (more content not included)... Normal [facility] Urology Office/Clinic Noteon 02-28-2020 Urology Office/Clinic [...] Dr. Arriaza. Follow-up With When Contact Information Arslaan Ryder MD, Roger [address] Additional Instructions: 1yr. w/ KUB and [...] intravenous solution, IV, Once losartan, Oral, Daily [place]-3 [employer]o Bi-Flex selenium, Oral, Daily Vitamin C, [...] Negative (09 (more content not included)... Normal [facility] Comment on above: Result Comment: Elec tronically Signed By: Arsalan Ryder MD, Roger Agosto\.br\Date and Time Signed: 02/28/20 10:32 EDT\.br\Electronically Co-Signed By: Marichuy Hernández MA\.br\Date and Time Co-Signed: 02/28/20 10:21 EDT No Panel Information [facility] Vital Signs Date Time Vital Sign Value Performing Clinician Facility 01-28-2023 13:33-0400 Body height 167.64 cm Samantha Ziegler [employer] Phone: [facility] [employer] DO Work Phone: 01-28-2023 13:33-0400 Body mass index (BMI) [Ratio] 27.92 kg/m2 [employer] Phone: [facility] [employer] DO Work Phone: 01-28-2023 13:33-0400 Body surface area Derived from formula 1.88 m2 [email or web address] Phone: [facility] [employer] DO Work Phone: 01-28-2023 13:33-0400 Body weight 78.47 kg Samantha M Hoy Work Phone: [facility] DO Work Phone: 01-28-2023 13:33-0400 Diastolic blood pressure 92 mm[Hg] Samantha M Hoy Work Phone: [facility] DO Work Phone: 01-28-2023 13:33-0400 Diastolic blood pressure 90 mm[Hg] Samantha M Hoy Work Phone: [facility] DO Work Phone: 01-28-2023 13:33-0400 Diastolic blood pressure 80 mm[Hg] Samantha M Hoy Work Phone: [facility] DO Work Phone: 01-28-2023 13:33-0400 Heart rate 84 /min Samantha M Hoy Work Phone: [facility] DO Work Phone: 01-28-2023 13:33-0400 Systolic blood pressure 162 mm[Hg] Samantha M Hoy Work Phone: [facility] DO Work Phone: 01-28-2023 13:33-0400 Systolic blood pressure 152 mm[Hg] Samantha M Hoy Work Phone: [facility] DO Work Phone: 01-28-2023 13:33-0400 Systolic blood pressure 124 mm[Hg] Samantha M Hoy Work Phone: [facility] DO Work Phone: 01-28-2023 13:33-0400 91 1 Samantha M Hoy Work Phone: [facility] DO Work Phone: Comment on above: [employer] 01-28-2023 13:33-0400 84 1 Samantha M Hoy Work Phone: [facility] DO Work Phone: Comment on above: [employer]Sit 01-28-2023 13:33-0400 90 1 Samantha M Hoy Work Phone: [facility] DO Work Phone: Comment on above: [employer]St 01-28-2023 13:28-0400 Body height 167.64 cm Samantha M Hoy Work Phone: [facility] DO Work Phone: 01-28-2023 13:28-0400 Body mass index (BMI) [Ratio] 27.92 kg/m2 Samantha M Hoy Work Phone: [facility] DO Work Phone: 01-28-2023 13:28-0400 Body surface area Derived from formula 1.88 m2 Samantha M Hoy Work Phone: [facility] DO Work Phone: 01-28-2023 13:28-0400 Body weight 78.47 kg Samantha M Hoy Work Phone: [facility] DO Work Phone: 01-28-2023 13:28-0400 Diastolic blood pressure 90 mm[Hg] Samantha M Hoy Work Phone: [facility] DO Work Phone: 01-28-2023 13:28-0400 Heart rate 91 /min Samantha M Hoy Work Phone: [facility] DO Work Phone: 01-28-2023 13:28-0400 Systolic blood pressure 152 mm[Hg] Samantha M Hoy Work Phone: [facility] DO Work Phone: 12-01-2022 13:03-0400 Diastolic blood pressure 60 mm[Hg] Samantha M Hoy Work Phone: TC[facility]Icxlzhmkey-Lws [facility] 250 DO Work Phone: 12-01-2022 13:03-0400 Systolic blood pressure 120 mm[Hg] Samantha Toney Hoy Work Phone: ZO[facility]Ugboqdrllg-Wpg [facility] 250 DO Work Phone: 12-01-2022 12:48-0400 Body height 167.64 cm Samantha Toney Hoy Work Phone: CZ-Lgzewrybzs-Qjd [facility] 250 DO Work Phone: 12-01-2022 12:48-0400 Body mass index (BMI) [Ratio] 28.41 kg/m2 Samantha Ziegler Hoy Work Phone: OS-Hqriblkqam-Lwe [facility] 250 DO Work Phone: 12-01-2022 12:48-0400 Body surface area Derived from formula 1.89 m2 Samantha Toney Hoy Work Phone: IB-Euxffwwtbg-Lmd [facility] 250 DO Work Phone: 12-01-2022 12:48-0400 Body weight 79.83 kg Samantha Ziegler Hoy Work Phone: TQ-Cbuuarjbac-Bht [facility] 250 DO Work Phone: 12-01-2022 12:48-0400 Diastolic blood pressure 60 mm[Hg] Samantha Toney Hoy Work Phone: YW-Fygwgaybvf-Xsl meño 250 DO Work Phone: 12-01-2022 12:48-0400 Heart rate 76 /min Samantha Toney Hoy Work Phone: XM-Csulfnadkg-Pgs [facility] 250 DO Work Phone: 12-01-2022 12:48-0400 Systolic blood pressure 94 mm[Hg] Samantha M Hoy Work Phone: TX-Uvqhwjwuuh-Hxi alirezaky 250 DO Work Phone: 11-04-2022 07:53-0400 65 1 Samantha M Hoy Work Phone: [facility] DO Work Phone: Comment on above: [id number] 10-24-2022 10:01-0400 Body height 175.26 cm Samantha M Hoy Work Phone: [facility] DO Work Phone: 10-24-2022 10:01-0400 Body mass index (BMI) [Ratio] 26.58 kg/m2 Samantha M Hoy Work Phone: [facility] DO Work Phone: 10-24-2022 10:01-0400 Body surface area Derived from formula 1.98 m2 Samantha M Hoy Work Phone: [facility] DO Work Phone: 10-24-2022 10:01-0400 Body weight 81.65 kg Samantha M Hoy Work Phone: [facility] DO Work Phone: 10-24-2022 10:01-0400 Diastolic blood pressure 82 mm[Hg] Samantha M Hoy Work Phone: [facility] DO Work Phone: 10-24-2022 10:01-0400 Heart rate 84 /min Samantha M Hoy Work Phone: [facility] DO Work Phone: 10-24-2022 10:01-0400 Systolic blood pressure 144 mm[Hg] Samantha M Hoy Work Phone: [facility] DO Work Phone: Encounters Encounter Date Encounter Type Care Provider Facility Start: 12-25-2023 End: 12-25-2023 ambulatory [facility] Start: 05-25-2023 End: 05-25-2023 ambulatory [facility] Start: 01-28-2023 Patient encounter procedure [facility] Rec[facility] Work Phone: Start: 01-28-[address] Deon Weeks [place] [facility] Facility: Start: 12-01-2022 Office outpatient visit 25 minutes Samantha Recio Work Phone: [facility] 250 DO Work Phone: Start: 12-01-[address] Deon Weeks [place] [facility] Rasmussen Facility: Start: 10-31-[address] Deon Weeks [place] [facility] R[facility] Facility:[id number] Start: 10-31-2022 End: 10-31-[address] [facility] Facility:[facility] Start: 10-31-2022 Rx Renewal Samantha Recio Work Phone: [facility] 250 DO Work Phone: Start: 10-27-2022 End: 10-27-[address] [facility] Facility:[facility] Start: 10-24-[address] Samantha Recio [...] Comment on above: Performed By: #### P [facility] ####[address] [place], [place] [address]FyRodolfo Gibson Start: 11-14-2021 End: 11-14-2021 Computerized ophthalmic [...] Deon Rasmussen, Status: Pen, Time: 9:10 AM [facility]Uzdvfljnll-Mqfqurt y 250 DO Work Phone: Start: 12-01-2022 FUV, Provider: Deon Rasmussen, Status: Pen, Time: 1:00 PM FUV, Provider: Deon Rasmussen, Status: Pen, Time: 1:00 PM [facility] DO Work Phone: Start: 11-29-2022 End: 05-08-2023 OCT MACULA CIRRUS OU (BOTH EYES) OCT MACULA CIRRUS OU (BOTH EYES) OPHT Imaging Routine Epiretinal membrane (ERM) of both eyes Nevus of choroid of left eye Expected: 11/29/2022, Expires: 05/08/2023 [facility] Work Phone: Comment on above: Expected: 11/29/2022 , Expires: 05/08/2023 Start: 02-06-2022 Influenza vaccination INFLUENZ A (Season Ended) [facility] Start: 08-17-2021 COVID-19 VACCINE (4 - Booster for Moderna series) COVID-19 VACCINE (4 - Booster for Moderna series) [facility] Start: 06-08-2021 ADVANCE DIRECTIVE DISCUSSION ADVANCE DIRECTIVE DISCUSSION [facility] Start: 09-10-2006 DIABET[facility]CREEN [facility] Start: 2005 PNEUMOCOCCAL: 65+ (1 - PCV) PNEUMOCOCCAL: 65+ (1 - PCV) [facility] Start: 1990 SHINGRIX VACCINE (1 of 2) SHINGRIX VACCINE (1 of 2) [facility] Start: 09-29-1959 Urine microalbumin profile DTAP,TDAP,TD (1 - Tdap) [facility] Immunizations Immunization Date Immunization Notes Care Provider Glenroy pleitez 04-19-2021 Moderna COVID-19 Vac cine 100 MCG/0.5ML Intramuscular Suspension Samantha MeilleurMobiley Work Phone: [facility] [employer] 250 DO Work Phone: 2020 Moderna COVID-19 Vac cine 100 MCG/0.5ML Intramuscular Suspension Samantha M Hoy Work Phone: [facility] [employer] 250 DO Work Phone: 08-31-2020 Moderna COVID-19 Vac cine 100 MCG/0.5ML Intramuscular Suspension Samantha M Hoy Work Phone: [facility] [employer] 250 DO Work Phone: 04-07-2017 influenza virus vacc ine, unspecified formulation Samantha M Hoy Work Phone: [facility] [employer] 250 DO Work Phone: 03-25-2016 influenza virus vacc ine, unspecified formulation Samantha M Hoy Work Phone: [facility] [employer] 250 DO Work Phone: 03-17-2016 influenza, high dose seasonal, preservative-free Samantha M Hoy Work Phone: -[facility] DO Work Phone: Payers Date Payer Category Payer Self-pay 2020 Unknown MMO MMO MEDICARE SUPPLEMENT [id number] 2020-Present [phone] [address] [place] [address] Indemnity [id number] 1959 Medicare [id number] 1959 Unknown [id number] 1940 Unknown [id number] 1940 Unknown [id number] 1940 Unknown [id number] 1940 Unknown [id number] 1940 Unknown [id number] 1940 Unknown [id number] 1940 Unknown [id number] 1940 Unknown [id number] 1940 Unknown [id number] Unknown Unknown [id number] Unknown [id number] Social History Date Type Detail Facility Start: 12-14-2015 Tobacco smoking stat us NHIS Never smoked tobacco [facility] Start: 12-14-2015 Tobacco use and exposure Smokeless tobacco non-user [facility] Start: 11-14-2021 Alcohol intake Current drinke r of alcohol (finding) [facility] Start: 12-14-2015 History SDOH Alcohol Comment on occ [facility] Start: 1940 Sex Assigned At Not on file [facility] Never a smoker Never a smoker [facility] DO Work Phone: Comment on above: COFFEE DAILY; Progress note 11-14-2021 Note Date & Type Note Facility 11-14-2021 Note HNO ID: [id number] Author: Zulema Guo MD Service: ? Author Type: Physician Type: Progress Notes Filed: 11/14/2021 10:16 AM Note Text: New patient to Dr. Guo Last seen with Dr. Alberto ([place]) who thought that the choroidal nevus left [...] of its relevant components. Zulema Guo MD [facility] History of Present illness Narrative 11-14-2021 Zulema Guo MD - 11/14/2021 9:50 AM EDT Note Date & Type Note Facility 11-14-2021 History of Presen t illness Narrative New patient to Dr. Guo Last seen with Dr. Alberto ([place]) who thought that the choroidal nevus left [...] Zulema Guo MD documented in this encounter 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 Summary Purpose Family History No Family [...] and content) DATE CREATED AUTHOR [facility] DATE CREATED AUTHOR AUTHOR'S ORGANIZ ATION 11/14/2021 [facility] DATE CREATED AUTHOR AUTHOR'S ORGANIZ ATION 09/22/2022 [facility] DATE CREATED AUTHOR AUTHOR'S ORGANIZ ATION 11/16/2022 [facility] DATE CREATED AUTHOR AUTHOR'S ORGANIZ ATION 12/02/2022 [employer] DATE CREATED AUTHOR AUTHOR'S ORGANIZ ATION 01/29/2023 [facility] DATE CREATED AUTHOR AUTHOR'S ORGANIZ ATION 12/28/2023 [facility] Source Comments (unrecognize d section and content) In the event this informatio n is protected by the Federal Confidentiality of Alcohol and Drug Abuse Patient Records regulations: The Federal rules restrict any use of the information to criminally investigate or prosecute any alcohol or drug abuse patient.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 [employer] [facility]. provides no warranty or guarantee of the accuracy or completeness of information in this document.
[2023-12-30 07:24] LABS: Troponin I High Sensitivity 92.2 pg/mL (4.0-76.1)
--- NOTE | 2023-12-30 07:58 | P.HP_ITS ---
HPI H&P: HPI History of Present Illness Chief complaint: SWELLING AROUND HEART CHF AND MOYA Narrative: Patient was seen and evaluated in the office with increasing shortness of breath. Initial blood work came back with elevated BNP. With his shortness of breath throughout the day he was referred to the emergency room. In the emergency room found to have also elevated high-sensitivity troponin. Patient was admitted for workup and treatment of same. When I saw patient up on the medical surgical floor, sitting up at the bedside, resting comfortably, denied chest pain, no shortness of breath but has not been ambulating yet this morning. He states he feels better but that is likely just him saying that as that has been his history. Minimizing symptoms. 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 - Acute infarction of intestine, part and extent unspecified (ICD- 10) Ischemic colitis ?K55.9 - Vascular disorder of intestine, unspecified (ICD-10) GI hemorrhage ?K92.2 - Gastrointestinal hemorrhage, unspecified (ICD-10) Kidney stone ?N20.0 - Calculus of kidney (ICD-10) Strain of left triceps tendon ?S46.312A - Strain of muscle, fascia and tendon of triceps, left arm, initial encounter (ICD-10) Patellar tendonitis of left knee ?M76.52 - Patellar tendinitis, left knee (ICD-10) Mitral valve prolapse ?I34.1 - Nonrheumatic mitral (valve) prolapse (ICD-10) Afib ?I48.91 - Unspecified atrial fibrillation (ICD-10) HTN (hypertension) ?I10 - Essential (primary) hypertension (ICD-10) Surgical History (Updated 12/29/23 @ 20:31 by Marla Metz RN) History of total left knee replacement ?Z96.652 - Presence of left artificial knee joint (ICD-10) History of total right knee replacement ?Z96.651 - Presence of right artificial knee joint (ICD-10) Hx of colectomy ?Z90.49 - Acquired absence of other specified parts of digestive tract (ICD- 10) History of lithotripsy ?Z98.890 - Other specified postprocedural states (ICD-10) History of cataract surgery ?Z98.49 - Cataract extraction status, unspecified eye (ICD-10) Hx of right heart catheterization ?Z98.890 - Other specified postprocedural states (ICD-10) Hx of tonsillectomy ?Z90.89 - Acquired absence of other organs (ICD-10) Social History Highest level of school completed/degree received: high school graduate Do you think of yourself as: straight/heterosexual Gender Identity: male Meds Home Medications and Allergies Home Medications ?Medication ?Instructions ?Recorded ?Confirmed ?Type acetaminophen 650 mg 650 mg PO Q8H PRN pain 12/29/23 12/29/23 History tablet,extended release apixaban 5 mg tablet (Eliquis) 5 mg PO Q12H 12/29/23 12/29/23 History ascorbic acid (vitamin C) 1,000 mg 1 g PO DAILY 12/29/23 12/29/23 History tablet (C-1000) calcium carbonate 600 mg-vitamin 1 tab PO DAILY 12/29/23 12/29/23 History D3 5 mcg (200 unit) tablet indapamide 1.25 mg tablet 1.25 mg PO DAILY 12/29/23 12/29/23 History magnesium 400 mg PO DAILY 12/29/23 12/29/23 History metoprolol succinate 50 mg 50 mg PO DAILY 12/29/23 12/29/23 History tablet,extended release 24 hr saw palmetto 450 mg capsule 450 mg PO DAILY 12/29/23 12/29/23 History selenium 200 mcg capsule 200 mcg PO DAILY 12/29/23 12/29/23 History Allergies Allergy/AdvReac Type Severity Reaction Status Date / Time No Known Drug Allergies Allergy Verified 12/29/23 17:30 Exam Constitutional Vital Signs, click to edit/add: Last Vital Signs Temp 97.6 F 12/30/23 07:30 Pulse 78 12/30/23 07:53 Resp 16 12/30/23 07:53 BP 133/94 H 12/30/23 07:30 Pulse Ox 83 L 12/30/23 07:30 O2 Del Method Room Air 12/30/23 07:30 Documenting provider has reviewed patient's vital signs: yes Common normals: no apparent distress Chest Common normals: inspection of chest normal Respiratory Common normals: normal respiratory effort and no retractions Auscultation: rales (Minimal rales in bases) Cardio Common normals: irregular rate Rate: tachycardic Rhythm: abnormal rhythm GI Common normals: Normal to inspection, nondistended, normoactive bowel sounds present Extremity Common normals: abnormal to inspection (Trace edema) Results Labs Labs: Short CBC 12/30/23 Range/Units 05:42 WBC 5.3 (4.0-11.0) 10^3/uL Hgb 14.1 (14.0-18.0) g/dL Hct 42.1 (42.0-54.0) % Plt Count 178 (150-450) 10^3/uL BMP 12/30/23 05:42 Sodium 142 Potassium 3.5 Chloride 101 Carbon Dioxide 32.7 H BUN 37.0 H Creatinine 1.56 H Glucose 87 Calcium 9.4 Liver Function 12/30/23 Range/Units 05:42 Total Bilirubin 1.6 H (0.2-1.0) mg/dL AST 40 H (15-37) U/L ALT 37 (16-63) U/L Alkaline Phosphatase 52 (46-116) U/L Albumin 3.4 (3.4-5.0) g/dL Assessment and Plan Assessment and Plan (1) Atrial fibrillation: (2) MOYA (dyspnea on exertion): (3) Congestive heart failure: Plan Admission findings: Tachycardia, respiratory distress, uncontrolled hypertension on admission, elevated BNP, elevated high-sensitivity troponin. This is likely secondary to a acute combined congestive heart failure, and likely related to acute to semiacute NSTEMI. Uncontrolled hypertension-blood pressure so far this morning been stable, may need to increase beta-blockers or add nitrates. Mild acute combined congestive heart failure secondary to semi-acute NSTEMI- track troponins. Up slightly today. Repeat again later this morning. Check echocardiogram. Depending on results of echocardiogram, likely just needs medication adjustment, unlikely to transfer for heart catheterization. Based on risk of procedure related to age. Acute kidney injury-this is rate related to low flow state secondary to his atrial fibrillation-May need medications adjusted, track and trend. Atrial fibrillation-this is complicating the above picture, likely reduced cardiac output secondary to the lack of atrial kick. Results echocardiogram are pending. BPH-continue with home medication Hypomagnesemia-continue supplementation Admission status: Patient was admitted with acute combined congestive heart failure secondary to semiacute NSTEMI, complicated by tachycardia related to his atrial fibrillation. Complicated case on admission, maintain observation status morning, depending on results of echo, if significant medications need to be adjusted, medically necessary treatment will span 2 midnights will change to inpatient status
[2023-12-30] MEDS: METOPROLOL SUCCINATE 50 MG TAB.ER.24H PO (08:07)
[2023-12-30] MEDS: APIXABAN 5 MG TABLET PO (08:07)
--- NOTE | 2023-12-30 08:22 | PM.DS1 ---
DS: Providers Provider Date of admission: 12/29/23 18:48 Primary care physician: Michael Recio MD Consults: 12/29/23 Consult to Dietitian Routine Reason for consultation: Pt states that he has losst 20+ lbs unintentionally. 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 Elevation of the high-sensitivity troponin would be consistent with a somewhat acute NSTEMI. Especially given the change in ejection fraction from September of last year to currently, 35 to 40% currently was over 55% a year ago. Patient feels better overall. Ambulating better with less dyspnea after diuresis. Adding Imdur and lisinopril for heart failure treatment. Medications to this. Follow-up with me in the office tomorrow Status at Discharge Overall status at discharge: patient is not back to baseline Time Spent with Patient Time attestation: Total time spent providing and/or coordinating discharge services: Time spent: greater than 30 minutes Exam Constitutional Vital Signs, click to edit/add: Last Vital Signs Temp 97.6 F 12/30/23 07:30 Pulse 66 12/30/23 08:00 Resp 16 12/30/23 07:53 BP 133/94 H 12/30/23 07:30 Pulse Ox 97 12/30/23 08:00 O2 Del Method Room Air 12/30/23 07:30 Documenting provider has reviewed patient's vital signs: yes Common normals: no apparent distress Chest Common normals: inspection of chest normal Respiratory Common normals: normal respiratory effort and no retractions Auscultation: rales (Minimal rales in bases) Cardio Common normals: irregular rate Rate: tachycardic Rhythm: abnormal rhythm GI Common normals: Normal to inspection, nondistended, normoactive bowel sounds present Extremity Common normals: abnormal to inspection (Trace edema) DS: Data Data Completed and Pending Labs on day of discharge: Labs from last 24 hours 12/30/23 12/29/23 05:42 17:38 WBC 5.3 RBC 4.00 L Hgb 14.1 Hct 42.1 MCV 105.3 H MCH 35.3 H MCHC 33.5 RDW 14.6 Plt Count 178 MPV 10.7 Sodium 142 Potassium 3.5 Chloride 101 Carbon Dioxide 32.7 H Anion Gap 11.8 BUN 37.0 H Creatinine 1.56 H Est GFR ( Amer) 52 L Est GFR (Non-Af Amer) 43 L BUN/Creatinine Ratio 23.7 Glucose 87 Calcium 9.4 Magnesium 1.8 Total Bilirubin 1.6 H AST 40 H ALT 37 Alkaline Phosphatase 52 Troponin I High Sens 92.2 H* 87.5 H* Total Protein 6.9 Albumin 3.4 Globulin 3.5 Albumin/Globulin Ratio 1.0 Discharge Plan Discharge Disposition: Home, Self-Care Condition: Good Discharge Medications: New isosorbide mononitrate 30 mg Tablet Extended Release 24 Hr 30 mg PO QAM Qty: 30 11RF lisinopril 5 mg Tablet 5 mg PO QD Qty: 30 11RF Continued Eliquis 5 mg tablet 5 mg PO Q12H indapamide 1.25 mg tablet 1.25 mg PO DAILY metoprolol succinate 50 mg tablet extended release 24 hr 50 mg PO DAILY selenium 200 mcg capsule 200 mcg PO DAILY ascorbic acid (vitamin C) [C-1000] 1,000 mg tablet 1 g PO DAILY calcium carbonate-vitamin D3 600 mg-5 mcg (200 unit) tablet 1 tab PO DAILY magnesium 400 mg PO DAILY saw palmetto 450 mg capsule 450 mg PO DAILY Rx Instructions: give with food (meal/snack) acetaminophen 650 mg tablet extended release 650 mg PO Q8H PRN (Reason: pain) Print Language: Setswana Patient Instructions: Heart Failure (DC), Shortness of Breath (DC) Forms: Portal Instructions Follow Up Appointments: January 04 @ 9:30am with Dr. Recio [phone]
[2023-12-30] MEDS: FUROSEMIDE 40 MG/4 ML VIAL IVP (09:03)
[2023-12-30 09:10] LABS: Troponin I High Sensitivity 99.5 pg/mL (4.0-76.1)
[2023-12-30] MEDS: ASCORBIC ACID 500 MG TABLET 1000 MG PO (09:40)
[2023-12-30] MEDS: MAGNESIUM OXIDE 400 MG TABLET PO (09:40)
[2023-12-30] MEDS: CALCIUM CARBONATE 600 MG/VITAMIN D3 400 IU TABLET 1 TAB PO (09:40)
--- NOTE | 2023-12-30 09:58 | SWNOTE1 ---
SW met with pt to discuss dc needs. Pt lives at home with his . Pt is independent and does not use any DME. Pt does still drive. At this time no anticipated discharge needs. Pt is waiting to have ECHO done and PT eval. SW to follow as needed. Medicare Outpatient Observation Notice reviewed and discussed with patient. Pt. verbalized understanding and signed the form. Original given to patient and copy placed in patient?s chart.
--- NOTE | 2023-12-30 11:52 | SWNOTE1 ---
SW did review physical therapy note and occupational therapy note. Home with family was recommended, with possible need for cardiac rehab or PT for endurance. Pt is not home bound for home health.
[2023-12-30] MEDS: ISOSORBIDE MONONITRATE 30 MG TAB.ER.24H PO (12:40)
[2023-12-30] MEDS: LISINOPRIL 5 MG TABLET PO (12:40)
--- NOTE | 2024-01-04 13:39 | CM.DCFOLLOWU ---
Person spoke with: pt's How are you feeling? better How is your pain? none, less short of breath Did you understand your discharge instructions? yes Do you have any questions about your discharge instructions? no Were you given any prescriptions at discharge? yes Were you able to get your prescriptions filled? yes Do you understand how to take your medications as ordered? yes Do you have any questions about your follow up appointment and do you plan to keep your follow up appointment? no questions, already completed follow up Is there anything else that you would like to discuss? no Questions/Comments/Concerns/Other: Had very good care at the hospital
== END 2023-12-30 13:23 | disposition home or self-care (01) ==
LOC: ER 19:56 → MS 12-30 06:39
PROVIDERS: Physician Assistant; Registered Nurse; Admitting Provider Family Medicine; Emergency Provider Emergency Medicine; PCP Family Medicine; Visit Provider Family Medicine
DX: I11.0 Hypertensive heart disease with heart failure (principal); I50.41 Acute combined systolic (congestive) and diastolic (congestive) heart failure; I21.4 Non-ST elevation (NSTEMI) myocardial infarction; I48.91 Unspecified atrial fibrillation; R00.0 Tachycardia, unspecified; R06.03 Acute respiratory distress; N17.9 Acute kidney failure, unspecified; N40.0 Benign prostatic hyperplasia without lower urinary tract symptoms; E83.42 Hypomagnesemia; R53.83 Other fatigue; R06.09 Other forms of dyspnea; E03.9 Hypothyroidism, unspecified
CPT/HCPCS: 36415; 71046; 80053; 83735; 83880; 84439; 84443; 84484; 85025; 85027; 86301; 93005; 93306; 94667; 94761; 96374; 96376; 97110; 97161; 97165; 99285; G0378; J1940

== ENCOUNTER 2024-02-05 12:32 | Outpatient (OUT) | payer MEDICARE, OTHER, SELFPAY ==
--- OUTSIDE RECORDS SUMMARY | 2024-02-05 12:58 | XMS_ITS | CCD ---
Author Organization [facility] Care Team Providers Care Electrical Lineman Name Role Phone Levi Dumont Primary Care [...] SINGH Consulting Unavailable NEWATIA, VAN Consulting Unavailable Samantha Recio M Unavailable Unavailable Unavailable Deon Rasmussen Admitting [...] Dr. Samantha Reyes Primary Care Unavail able Honick, Dr. Samantha Reyes Primary Care Unavail able Rasmussen, Dr. Deon Frank Attending Anita vailable Grady, Dr. Deon Frank Referring Anita vailable HUSYEIN MARIA Attending Unavailable HUSEYIN MARIA Referring Unavailable SAMANTHA RECIO Primary Care Unavailable DEON RASMUSSEN Referring Unavailable SAMANTHA RECIO Primary Care Unavailable DEON RASMUSSEN Attending Unavailable SAMANTHA RECIO Primary Care Unavailable DEON RASMUSSEN Attending Unavailable SAMANTHA RECIO Primary Care Unavailable Levi Dumont Primary Care Provider Samantha Recio MD Primary Care Provider Medications Current Medications Medication Drug Class(es) Dates Sig (Normalized) Sig (Original) Acetaminophen (3 sources) acetaminophen (T YLENOL ARTHRITIS ORAL) Take by mouth as needed. Active acetaminophen (T YLENOL ARTHRITIS ORAL) Take by mouth as needed. 0 Active Comment on above: Take by mouth as nee ded. apixaban 5 mg oral tablet (2 sources) Factor Xa Inhibitor Start: 10-27-2022 take 1 tablet by mouth twice daily apixaban (ELIQUIS) 5 mg tab(s) Take 5 mg by mouth two times a day. 10/27/2022 Active ascorbic acid 500 mg oral tablet (6 sources) Vitamin C take 1 tablet by mouth once daily ascorbic acid, vitamin C, (VITAMIN C) 500 mg tablet Take 500 mg by mouth once daily. Active take 1 tablet by mouth once kristofer y Vitamin C 1000 MG Oral Tablet TAKE 1 TABLET DAILY. Quantity: 0 Refills: 0 Ordered: 24-Oct-2022 DO Active Comment on above: Take 500 mg by mouth once daily. benoxinate hydrochloride 4 mg/ml / fluorescein sodium 2.5 mg/ml ophthalmic solution (1 source) Diagnostic Dye Start: 11-14-2021 End: 11-14-2021 fluorescein-benoxina te 0.25-0.4 % 1 Drop (FLURESS) Calcium Carbonate / vitamin D3 (3 sources) CALCIUM CARBONATE/VITAMIN D3 (CALCIUM + D ORAL) Take by mouth. Active CALCIUM CARBONAT E/VITAMIN D3 (CALCIUM + D ORAL) Take by mouth. 0 Active Comment on above: Take by mouth. furosemide 40 mg oral tablet (2 sources) Loop Diuretic Start: 01-28-2024 take 1 tablet by mouth once daily LASIX 40 mg tablet Take 40 mg by mouth once daily. 01/28/2024 Active lisinopril 5 mg oral tablet (2 sources) Angiotensin Converting Enzyme Inhibitor Start: 12-30-2023 take 1 tablet by mouth once daily lisinopril (ZESTRIL) 5 mg tablet Take 5 mg by mouth once daily. 12/30/2023 Active magnesium oxide 400 mg oral tablet (5 sources) take 1 tablet by mouth once daily magnesium oxide 400 mg magnesium tab Take 400 mg by mouth once daily. Active Magnesium 500 MG CAPS TAKE 1 CAPSULE Daily Quantity: 0 Refills: 0 Ordered: 24-Oct-2022 DO Active 24 hr metoprolol succinate 50 mg extended release oral tablet (2 sources) beta-Adrenergic Preeti Start: 12-25-2023 take 1 tablet by mouth once daily metoprolol succinate ER (TOPROL XL) 50 mg 24 hr tablet Take 50 mg by mouth once daily. 12/25/2023 Active Multivitamins-Newton als-Lutein (CENTRUM SILVER) tab (2 sources) take 1 tablet by mouth once daily Multivitamins-Mine rals-Lutein (CENTRUM SILVER) tab Take 1 tablet by mouth once daily. Active phenylephrine hydrochloride 25 mg/ml ophthalmic solution (1 source) alpha-1 Adrenergic Agonist Start: 11-14-2021 End: 11-14-2021 PHENYLephrine 2.5 % 1 Drop (AK-DILATE, LUZMARIA-SYNEPHRINE) potassium chloride 10 meq extended release oral tablet (2 sources) Start: 02-01-2024 take 1 tablet by mouth twice daily KLOR-CON 10 10 mEq tablet Take 10 mEq by mouth two times a day. 02/01/2024 Active proparacaine hydrochloride 5 mg/ml ophthalmic solution (1 source) Local Anesthetic Start: 11-14-2021 End: 11-14-2021 proparacaine 0.5 % 1 Drop (ALCAINE) selenium 200 mcg cap (3 sources) selenium 200 mcg cap Take by mouth. Active selenium 200 mcg cap Take by mouth. 0 Active Comment on above: Take by mouth. 125 ml sodium chloride 9 mg/ml prefilled syringe (2 sources) Start: 02-04-2024 End: 02-03-2025 sodium chloride 0.9 %, flush, (BD POSIFLUSH) syringe Inject 2-10 mL intravenously as directed. For Echo procedure 10 mL 02/04/2024 02/03/2025 Active tropicamide 10 mg/ml ophthalmic solution (1 source) Anticholinergic Start: 11-14-2021 End: 11-14-2021 tropicamide 1 % 1 Drop (MYDRIACYL) ZNOX/PYG/PUMPK/SAW PAL/PROST (MEN'S SAW PALMETTO FORMULA ORAL) (3 sources) ZNOX/PYG/PUMPK/S AW PAL/PROST (MEN'S SAW PALMETTO FORMULA ORAL) Take by mouth. Active ZNOX/PYG/PUMPK/S AW PAL/PROST (MEN'S SAW PALMETTO FORMULA ORAL) Take by mouth. 0 Active Comment on above: Take by mouth. Completed/Discontinued Medications Medication Drug Class(es) Dates Sig (Normalized) Sig (Original) Calcium (3 sources) Phosphate Binder, Calcium Calcium + D TABS TAKE 1 TABLET DAILY. Quantity: 0 Refills: 0 Ordered: 24-Oct-2022 DO Active Centrum Silver TABS (3 sources) Centrum Silver T ABS TAKE 1 TABLET DAILY. Quantity: 0 Refills: 0 Ordered: 24-Oct-2022 DO Active 24 hr dilTIAZem hydrochloride 180 mg extended release oral capsule (4 sources) Calcium Channel Pereti Start: 11-10-2015 End: 02-04-2024 diltiazem CD (CARDIZEM CD, CARTIA XT) 180 mg 24 hr capsule Take 180 mg by mouth as directed. 11/10/2015 02/04/2024 Discontinued Comment on above: Take 180 mg by mouth as directed. docosahexaenoic acid 120 mg / eicosapentaenoic acid 180 mg oral capsule (2 sources) End: 02-04-2024 take 1 capsule by mouth once daily Docosahexanoic Acid-Eicosapent 120-180 mg capsule Take 1,000 mg by mouth once daily. 02/04/2024 Discontinued Comment on above: Take 1,000 mg by javier th once daily. FLAXSEED OIL (OMEGA 3 ORAL) (2 sources) End: 02-04-2024 FLAXSEED OIL (OMEGA 3 ORAL) Take by mouth. 02/04/2024 Discontinued FLAXSEED OIL (OM EGA 3 ORAL) Take by mouth. 0 Active Comment on above: Take by mouth. FOLIC ACID/MULTIVIT-MIN/LUTEIN (CENTRUM SILVER ORAL) (2 sources) End: 02-04-2024 FOLIC ACID/MULTIVIT-MIN/LUTEIN (CENTRUM SILVER ORAL) Take by mouth. 02/04/2024 Discontinued FOLIC ACID/MULTI VIT-MIN/LUTEIN (CENTRUM SILVER ORAL) Take by mouth. 0 Active Comment on above: Take by mouth. indapamide 1.25 mg oral tablet (3 sources) Thiazide-like Diuretic Start: 3 take 1 tablet by mouth once daily Indapamide 1.25 MG Oral Tablet TAKE 1 TABLET ONCE DAILY. Quantity: 90 Refills: 3 Ordered: 24-Oct-2022 Deon Rasmussen MD Start : 24-Oct-2022 Active new start losartan potassium 100 mg oral tablet (4 sources) Angiotensin 2 Receptor Preeti Start: 6 End: 4 take 1 tablet by mouth once daily losartan (COZAAR) 100 mg tablet Take 100 mg by mouth once daily. 11/10/2015 02/04/2024 Discontinued Comment on above: Take 100 mg by mouth once daily. rivaroxaban 20 mg oral tablet (3 sources) Factor Xa Inhibitor Start: 3 take 1 tablet by mouth once daily Xarelto 20 MG Oral Tablet Take 1 tablet daily Quantity: 90 Refills: 3 Ordered: 04-Nov-2022 Deon Rasmussen MD Start : 24-Oct-2022 Active Saw [place] 450 MG Oral Capsule (3 sources) Saw [place] 450 MG Oral Capsule TAKE DIRECTED. Quantity: 0 Refills: 0 Ordered: 24-Oct-2022 DO Active Saw [place]iac Fruit 450 mg cap (1 source) Start: 0 End: 4 take 1 capsule by mouth once daily Saw [place] Fruit 450 mg cap Take 450 mg by mouth once daily. 05/24/2020 02/04/2024 Discontinued Selenium 200 MCG Oral Capsule (3 sources) Selenium 200 MCG Oral Capsule TAKE DIRECTED. Quantity: 0 Refills: 0 Ordered: 24-Oct-2022 DO Active vitamin b6 200 mg oral tablet (2 sources) End: 4 take 1 tablet by mouth once daily Pyridoxine HCl 200 mg tablet Take 200 mg by mouth once daily. 02/04/2024 Discontinued Comment on above: Take 200 mg by mouth once daily. Problems Active Problems Problem Classification Problem Date Documented Da te Episodic/Chronic Cardiac dysrhythmias (8 sources) Persistent atrial fibrillation; Translations: [Atrial fibrillation] Resolved: 3 02-04-2024 Chronic Cardiac dysrhythmias (1 source) Tachycardia-induced cardiomyopathy; Translations: [Tachycardia, unspecified] 02-04-2024 Episodic Congestive heart failure; nonhypertensive (2 sources) Unspecified diastolic (congestive) heart failure; Translations: [Chronic systolic heart failure] Onset: 2 02-04-2024 Chronic Disorders of lipid metabolism (2 sources) Hyperlipidemia, unspecified; Translations: [Hyperlipidemia] Onset: 2 02-04-2024 Chronic Essential hypertension (6 sources) Benign essential hypertension; Translations: [Benign essential hypertension] Onset: 3 Chronic Heart valve disorders (10 sources) Mitral valve regurgitation; Translations: [Mitral valve disorders] Onset: 3 Chronic Hypertension with complications and secondary hypertension (1 source) Hypertensive heart disease with heart failure; Translations: [HTN HEART DISEASE W/HEART FAIL] Onset: 2 Chronic Other aftercare (3 sources) Drug therapy finding; Translations: [Long-term (current) use of other medications] Episodic Other aftercare (1 source) Long-term current use of anticoagulant; Translations: [residential (current) use of anticoagulants] 02-04-2024 Episodic Other and ill-defined heart disease (3 sources) Left atrial dilatation; Translations: [Cardiomegaly] Chronic Other and ill-defined heart disease (4 sources) Cardiomegaly; Translations: [Cardiomegaly] Onset: 3 Chronic Other and unspecified benign neoplasm (1 source) Nevus of choroid of left eye; Translations: [Benign neoplasm of left choroid] Episodic Other circulatory disease (3 sources) H/O: hypertension; Translations: [Personal history of other diseases of circulatory system] Episodic Other circulatory disease (1 source) Low blood pressure; Translations: [Hypotension, unspecified] Episodic Other gastrointestinal disorders (1 source) History of gastrointestinal bleed; Translations: [Personal history of other diseases of the digestive system] 02-04-2024 Episodic Other lower respiratory disease (4 sources) Other forms of dyspnea; Translations: [OTHER FORMS OF DYSPNEA] Onset: 3 Episodic Other lower respiratory disease (1 source) Dyspnea; Translations: [Other respiratory abnormalities] Episodic Other lower respiratory disease (2 sources) Shortness of breath; Translations: [Shortness of breath] Onset: 4 Episodic Other nervous system disorders (4 sources) Carpal tunnel syndrome; Translations: [Carpal tunnel syndrome] 02-04-2024 Chronic Other nervous system disorders (3 sources) Lesion of ulnar nerve, left upper limb; Translations: [Cubital tunnel syndrome on left] Chronic Other nervous system disorders (3 sources) Lesion of ulnar nerve, right upper limb; Translations: [Cubital tunnel syndrome on right] Chronic Other non-traumatic joint disorders (1 source) Other specified joint disorders, right shoulder; Translations: [OTH SPECIFIED JOINT D/O RT SHOULDER] Onset: 3 Episodic Other nutritional; endocrine; and metabolic disorders (3 sources) Overweight in adulthood with body mass index of 25 or more but less than 30; Translations: [Overweight] Episodic Merlene-; endo-; and myocarditis; cardiomyopathy (except that caused by tuberculosis or sexually transmitted disease) (1 source) Cardiomyopathy; Translations: [Other cardiomyopathies] 02-04-2024 Chronic Residual codes; unclassified (1 source) History of partial resection of colon; Translations: [Acquired absence of other specified parts of digestive tract] 02-04-2024 Episodic Retinal detachments; defects; vascular occlusion; and retinopathy (1 source) Bilateral epiretinal membrane of eyes; 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, bilateral] Chronic Thyroid disorders (1 source) Hypothyroidism; Translations: [Other specified hypothyroidism] 02-04-2024 Chronic Unclassified (1 source) Encounter for preprocedural laboratory examination; Translations: [Encounter for preprocedural laboratory examination] Onset: 3 Unclassified (6 sources) Other persistent atrial fibrillation; Translations: [Other persistent atrial fibrillation (Multi)] Onset: 3 Past or Other Problems Problem Classification Problem Date Documented Da te Episodic/Chronic Diabetes mellitus without complication (1 source) Other abnormal glucose; Translations: [OTHER ABNORMAL GLUCOSE] Onset: 02-21-2022 Episodic Other aftercare (4 sources) Other longterm (current) drug therapy; Translations: [Other longterm (current) drug therapy] Onset: 03-18-2023 Episodic Other [...] 500 MG CAPSTAKE 1 CAPSULE Daily Saw Pontiac 450 MG Oral CapsuleTAKE DIRECTED. Selenium 200 [...] Vital Signs Recorded: 01Dec2022 01:03PMRecorded: 01Dec2022 12:48PM [id number], RUE, Sitting Adpsmdmhm4377, RUE, Sitting Heart Rate76, L Radial Height5 ft 6 in Evagse816 lb BMI Wcjarllsyl08.41 kg/m2 BSA Calculated1.89 Tobacco Useb) No Falls Screening (Age 18+)a) No falls within the (more content not included)... Normal [facility] Tobacco Screening.on 023 Fall risk assessment a) No falls within the last year [facility] [place] 250 DO Work Phone: Tobacco use status CP b) No [facility] [place] 250 DO Work Phone: [facility] echo transesophageal SHARON on 10-31-2022 [facility] echo transesophageal SHARON [place] [address] Echocardiogram Signed Patient: Brandi Rahman MR#: [id number] 9 : 1940 Acct:[id number] Age/Sex: 82 / M ADM Date: 10/31/22 Loc: IN Room: Type: [facility] Attending Dr: Deon Rasmussen MD Ordering Provider: Deon Rasmussen MD, [facility] Date of Service: 10/31/22/ ECH/[facility] echo transesophageal SHARON: DYSPNEA, MR, A-FIB. Copies to: Deon Rasmussen MD, [facility] Reason For Study: DYSPNEA, MR, A-FIB. History: [...] Effusions: No pericardial effusion seen. Transcribed By: SCV Performed At: 10/31/22 1247 Signed By: Deon Ramsussen MD, [facility] 10/31/22 1605 Normal [facility] Basic Metabolic Panelon 10-07 Anion gap [Moles/Vol] 9.3 mmol/L Normal 6.0-15.0 [facility] Comment on above: Performed By: #### B MP, CBC #### [address] Calcium [Mass/Vol] 9.1 mg/dL Normal 8.6-10.3 [facility] Comment on above: Result Comment: PERF ORMED BY: [place] [address] PATHOLOGIST PUBLIC DEFENDER LILLIAN TILLMAN M.D. Performed By: #### B MP, CBC #### [address] Chloride [Moles/Vol] 101 mmol/L Normal 98-107 [facility] Comment on above: Performed By: #### B MP, CBC #### [facility] [address] [place] [address] [place] CO2 [Moles/Vol] 34.3 mmol/L High 21.0-31.0 [facility] Comment on above: Performed By: #### B MP, CBC #### [place] [address] [place] Creatinine [Mass/Vol] 1.30 mg/dL Normal 0.70-1.30 [facility] Comment on above: Performed By: #### B MP, CBC #### [facility] [address] [place] [address] [place] GFR/1.73 sq M.predicted MDRD (S/P/Bld) [Vol rate/Area] 54.849 mL/min/{1.73_m2} Normal [facility] Comment on above: Performed By: #### B MP, CBC #### [address] Glucose [Mass/Vol] 89 mg/dL Normal 70-100 [facility] Comment on above: Result Comment: [facility] Glucose Reference Range is dependent on time and content of last meal. Glucose of more than 200 mg/dL in a nonstressed, ambulatory subject supports the diagnosis of Diabetes Mellitus. ADA recommended reference range Performed By: #### B MP, CBC #### [address] Potassium [Moles/Vol] 4.6 mmol/L Normal 3.5-5.1 [facility] Comment on above: Performed By: #### B MP, CBC #### [address] Sodium [Moles/Vol] 140 mmol/L Normal 136-145 [facility] Comment on above: Performed By: #### B MP, CBC #### [facility] [address] [place] [address] Urea nitrogen [Mass/Vol] 29 mg/dL High 7-25 [facility] Comment on above: Performed By: #### B MP, CBC #### [address] Complete Blood Count Auto Di ffon 10-27-2022 Basophils (Bld) [#/Vol] 0.1 10*3/uL Normal 0.0-0.2 [facility] Comment on above: Result Comment: PERF ORMED BY: [place] [address] PATHOLOGIST PUBLIC DEFENDER LILLIAN TILLMAN M.D. Performed By: #### B MP, CBC #### [place] [address] [place] Basophils/100 WBC (Bld) 1.1 % Normal . [facility] Comment on above: Performed By: #### B MP, CBC #### [facility] [address] [place] [address] [place] Eosinophils (Bld) [#/Vol] 0.2 10*3/uL Normal 0.0-0.45 [facility] Comment on above: Performed By: #### B MP, CBC #### [facility] [address] [place] [address] [place] Eosinophils/100 WBC (Bld) 3.2 % Normal . [facility] Comment on above: Performed By: #### B MP, CBC #### [facility] [address] Erythrocyte distribution width (RBC) [Ratio] 14.4 % Normal 12.0-14.8 [facility] Comment on above: Performed By: #### B MP, CBC #### [facility] [address] Hematocrit (Bld) [Volume fraction] 43.0 % Normal 38.8-50.0 [facility] Comment on above: Performed By: #### B MP, CBC #### [facility] [address] [place] [address] [place] Hemoglobin (Bld) [Mass/Vol] 14.4 g/dL Normal 13.0-17.0 [facility] Comment on above: Performed By: #### B MP, CBC #### [facility] [address] [place] [address] [place] Lymphocytes (Bld) [#/Vol] 1.0 10*3/uL Normal 1.00-4.8 [facility] Comment on above: Performed By: #### B MP, CBC #### [facility] [address] [place] [address] [place] Lymphocytes/100 WBC (Bld) 21.1 % Normal . [facility] Comment on above: Performed By: #### B MP, CBC #### [facility] [address] MCH (RBC) [Entitic mass] 33.8 pg Normal 27.5-35.2 [facility] Comment on above: Performed By: #### B MP, CBC #### [facility] [address] MCV (RBC) [Entitic vol] 100.8 fL Normal 83.5-101 [facility] Comment on above: Performed By: #### B MP, CBC #### [facility] [address] Mean Corpuscular HGB Conc 33.5 g/dL Normal 32.5-35.6 [facility] Comment on above: Performed By: #### B MP, CBC #### [facility] [address] Monocytes (Bld) [#/Vol] 0.6 10*3/uL Normal 0.0-0.8 [facility] Comment on above: Performed By: #### B MP, CBC #### [facility] [address] Monocytes/100 WBC (Bld) 11.8 % Normal . [facility] Comment on above: Performed By: #### B MP, CBC #### [facility] [address] [place] [address] [place] Neutrophils (Bld) [#/Vol] 2.9 10*3/uL Normal 1.8-7.7 [facility] Comment on above: Performed By: #### B MP, CBC #### [facility] [address] [place] [address] [place] Neutrophils/100 WBC (Bld) 62.8 % Normal . [facility] Comment on above: Performed By: #### B MP, CBC #### [facility] [address] [place] [address] [place] NRBC% 0.1 /100{WBC} Normal 0-0.5 [facility] Comment on above: Performed By: #### B MP, CBC #### [facility] [address] Platelet mean volume (Bld) [Entitic vol] 8.0 fL Normal 6.6-10.1 [facility] Comment on above: Performed By: #### B MP, CBC #### [facility] [address] [place] [id number] [facility] Platelets (Bld) [#/Vol] 213 10*3/uL Normal 150-450 [facility] Comment on above: Performed By: #### B MP, CBC #### [facility] [address] RBC (Bld) [#/Vol] 4.27 10*6/uL Normal 3.90-5.60 [facility] Comment on above: Performed By: #### B MP, CBC #### [facility] [address] [place] [address] [facility] WBC (Bld) [#/Vol] 4.7 10*3/uL Normal 4.1-10.5 [facility] Comment on above: Performed By: #### B MP, CBC #### [facility] [address] Office Visit (Cardiology)on 10-24-2022 Follow-up visit [...] in adult Healthy Weight Tips; Status:Complete; Done: 24Oct2022 Some eating tips that can help you lose weight.; Status:Complete; Done: [id number] PMH: Paroxysmal atrial fibrillation Start: Indapamide 1.25 MG Oral Tablet; TAKE 1 TABLET ONCE DAILY SocHx: Never a smoker Tobacco Use Screening; Status:Complete; Done: [id number] Unlinked Stop: Eliquis 2.5 MG Oral Tablet [...] time. Had an echocardiogram done recently at [facility] which I have the report [...] Medication NameInst (more content not included)... Normal [facility] Tobacco Screening.on 023 Adult depression screening assessment No [facility] 250 DO Work Phone: Fall risk assessment a) No falls within the last year [facility] 250 DO Work Phone: Tobacco use status [facility] b) No [facility] 250 DO Work Phone: ECHOCARDIO M/2D COMPLETEon 0 09-16-2022 ECHOCARDIO M/2D COMPLETE Patient: BRANDI RAHMAN Exam Date: 09/16/2022 : 1940 Gender:M Ordering : DR SAMANTHA RECIO . Admission #: [id number] Family : Order #: [id number] CLICK HERE TO VIEW EXAM ECHOCARDIOGRAM REPORT [...] M.D. on 09/16/2022 at 20:[address] [facility] BNPon 09-09-2022 Natriuretic peptide B (Bld) [Mass/Vol] 154.0 pg/mL Normal <=1,800.[address] [facility] Comment on above: Performed By: #### T SH, T7, CMP, BNP ####[facility] [address] [place], [place] [address]DrRodolfo Elver Gibson CBC AUTO DIFFon 09-09-2022 BASO # 0.0 103/ul Normal 0.0-0.1 [facility] Comment on above: Performed By: #### C BC ####[facility] [address] [place] [id number]. Elver Gibson Basophils/100 WBC (Bld) 0.6 % Normal 0.2-2.[address] [facility] Comment on above: Performed By: #### C BC ####[facility] [address] [place] [address]Dr. Elver Gibson EO # 0.2 103/ul Normal 0.0-0.[address] [facility] Comment on above: Performed By: #### C BC ####[facility] [address] [place], [place] [address]Dr. Elver Gibson Eosinophils/100 WBC (Bld) 4.1 % Normal 0.9-7.[address] [facility] Comment on above: Performed By: #### C BC ####[facility] [address] [place], [place] [address]Dr. Elver Gibson Erythrocyte distribution width (RBC) [Ratio] 13.5 % Normal 11.0-15.[address] [facility] Comment on above: Performed By: #### C BC ####[facility] [address] [place], [place] [address]Dr. Elver Gibson Hematocrit (Bld) [Volume fraction] 42.9 % Normal 42.0-54.[address] [facility] Comment on above: Performed By: #### C BC ####[facility] [address] [place], [place] [address]Dr. Elver Gibson Hemoglobin (Bld) [Mass/Vol] 14.5 g/dL Normal 14.0-18.[address] [facility] Comment on above: Performed By: #### C BC ####[facility] [address] [place] [address]Dr. Elver Gibson IG # 0.01 10e3/ul Normal 0.00-0.[address] [facility] Comment on above: Performed By: #### C BC ####[facility] [address] [place], [place] [address]Dr. Elver Gibson IG % 0.2 % Normal 0.0-0.[address] [facility] Comment on above: Performed By: #### C BC ####[facility] [address] [place] [address]Dr. Elver Gibson LYMPH # 1.2 103/ul Normal 1.2-3.[address] [facility] Comment on above: Performed By: #### C BC ####[facility] [address] [place], [place] [address]Bg. Elver Gibson Lymphocytes/100 WBC (Bld) 21.8 % Normal 20.5-60.[address] [facility] Comment on above: Performed By: #### C BC ####[facility] [address] [place] [address]Dr. Elver Arthur MANUAL DIFF REQ NO Normal [facility] Comment on above: Performed By: #### C BC ####[facility] [address] [place] [address]Dr. Elver Gibson MCH (RBC) [Entitic mass] 33.4 pg Normal 25.9-34.[address] [facility] Comment on above: Performed By: #### C BC ####[facility] [address] [place] [address]Dr. Elver Gibson MCHC (RBC) [Mass/Vol] 33.8 g/dL Normal 29.9-35.[address] [facility] Comment on above: Performed By: #### C BC ####[facility] [address] [place] [address]Dr. Elver Gibson MCV (RBC) [Entitic vol] 98.8 fL Critically high 80.0-94.[address] [facility] Comment on above: Performed By: #### C BC ####[facility] [address] [place] [id number]. Elver Gibson MONO # 0.7 103/ul Normal 0.3-0.[address] [facility] Comment on above: Performed By: #### C BC ####[facility] [address]xubpws[address] [place] [id number]. Elver Arthur Monocytes/100 WBC (Bld) 13.3 % Critically high 1.7-12.[address] [facility] Comment on above: Performed By: #### C BC ####[facility] Vnnxhgvuvj35[address] [place] [id number]. Elver Gibson NEUT # 3.3 103/ul Normal 1.4-6.[address] [facility] Comment on above: Performed By: #### C BC ####[facility] Enfcxfovqa6[address] [place] [id number]. Elver Gibson Neutrophils/100 WBC (Bld) 60.0 % Normal 43.0-75.[address] [facility] Comment on above: Performed By: #### C BC ####[facility] Lwwessuopv9[address] [place] [id number]. Elver Gibson Platelet mean volume (Bld) [Entitic vol] 9.5 fL Normal 9.5-13.[address] [facility] Comment on above: Performed By: #### C BC ####[facility] Tvkwidorla[address] [place] [id number]. Elver Gibson PLT 197 103/ul Normal 150-[address] [facility] Comment on above: Performed By: #### C BC ####[facility] Mawnpyatfw[address] [place] [id number]. Elver Gibson RBC 4.34 106/ul Critically low 4.70-6.10 [facility] Comment on above: Performed By: #### C BC ####[facility] Pnckwxrloi9[address] [place] [id number]. Elver Gibson WBC 5.4 103/ul Normal 4.0-11.[address] [facility] Comment on above: Performed By: #### C BC ####[facility] Pihozhrzio[address] [place] [id number]. Elver Gibson FREE THYROXINE INDEX T7on FTI 2.21 Normal 1.30-4.[address] [facility] Comment on above: Performed By: #### T SH, T7, CMP, BNP ####[facility] [address] [place] [address]Dr. Elver Gibson T3U 35.0 % Normal 33.0-40.[address] [facility] Comment on above: Performed By: #### T SH, T7, CMP, BNP ####[facility] Hmdnqhiatt8[address] [place] [address]Dr. Elver Gibson T4 [Mass/Vol] 6.30 ug/dL Normal 4.50-12.[address] [facility] Comment on above: Performed By: #### T SH, T7, CMP, BNP ####[facility] Gjqveqiglv[address] [place] [address]Dr. Elver Gibson PROF 14(COMP METB)on 023 Albumin [Mass/Vol] 3.8 g/dL Normal 3.4-5.0 [facility] Comment on above: Performed By: #### T SH, T7, CMP, BNP ####[facility] Trfubvupos[address] [place] [address]Dr. Elver Gibson Albumin/Globulin [Mass ratio] 1.1 {ratio} Normal [facility] Comment on above: Performed By: #### T SH, T7, CMP, BNP ####[facility] Nhwapfyhbi[address] [place] [address]Dr. Elver Gibson ALP [Catalytic activity/Vol] 74 U/L Normal 46-116 [facility] Comment on above: Performed By: #### T SH, T7, CMP, BNP ####[facility] Nnxkmgsrvw[address] [place] [address]Dr. Elver Gibson ALT [Catalytic activity/Vol] 27 U/L Normal 16-63 [facility] Comment on above: Performed By: #### T SH, T7, CMP, BNP ####[facility] Emalralzhc[address] [place] [address]Dr. Elver Gibson Anion gap [Moles/Vol] 10.8 mmol/L Normal [facility] Comment on above: Performed By: #### T SH, T7, CMP, BNP ####[facility] Pijmhctaag16[address] [place] [address]Dr. Elver Gibson AST [Catalytic activity/Vol] 30 U/L Normal 15-37 [facility] Comment on above: Performed By: #### T SH, T7, CMP, BNP ####[facility] Ispuwcownj96[address] [place] [address]Dr. Elver Gibson Bilirubin [Mass/Vol] 0.7 mg/dL Normal 0.2-1.[address] [facility] Comment on above: Performed By: #### T SH, T7, CMP, BNP ####[facility] Hpaumpuhwp[address] [place] [address]Dr. Elver Gibson Calcium [Mass/Vol] 9.3 mg/dL Normal 8.5-10.1 [facility] Comment on above: Performed By: #### T SH, T7, CMP, BNP ####[facility] Batjdkywnf[address] [place] [address]Dr. Elver Gibson Chloride [Moles/Vol] 104 mmol/L Normal 98-[address] [facility] Comment on above: Performed By: #### T SH, T7, CMP, BNP ####[facility] [address] [place], [place] [address]Dr. Elver Gibson CO2 [Moles/Vol] 31.9 mmol/L Normal 21.0-32.[address] [facility] Comment on above: Performed By: #### T SH, T7, CMP, BNP ####[facility] Kdwwdvznqj7[address] [place] [address]Dr. Elver Gibson Creatinine [Mass/Vol] 1.19 mg/dL Normal 0.70-1.[address] [facility] Comment on above: Performed By: #### T SH, T7, CMP, BNP ####[facility] Gcrsytelcv[address] [place] [address]Dr. Elver Gibson EGFR-AF GABONESE >60 Normal >=[address] [facility] Comment on above: Performed By: #### T SH, T7, CMP, BNP ####[facility] Kxojpkfwdb48[address] [place] [address]Dr. Elver Gibson EGFR-NON AF GABONESE 59 mL/min/1.73m2 Critically low >=[address] [facility] Comment on above: Performed By: #### T SH, T7, CMP, BNP ####[facility] Eavkrsahfp[address] [place] [address]Dr. Elver Gibson Globulin (S) [Mass/Vol] 3.5 g/dL Normal [facility] Comment on above: Performed By: #### T SH, T7, CMP, BNP ####[facility] Uxlbjkrvzs[address] [place] [address]Dr. Elver Gibson Glucose [Mass/Vol] 124 mg/dL Critically high 74-106 [facility] Comment on above: Performed By: #### T SH, T7, CMP, BNP ####[facility] Sfmnimrkxx77[address] [place] [address]Dr. Elver Gibson Potassium [Moles/Vol] 4.7 mmol/L Normal 3.5-5.1 [facility] Comment on above: Performed By: #### T SH, T7, CMP, BNP ####[facility] Hsurasfmmq475[address] [place] [address]Dr. Elver Gibson Protein [Mass/Vol] 7.3 g/dL Normal 6.4-8.2 [facility] Comment on above: Performed By: #### T SH, T7, CMP, BNP ####[facility] [address]mb[address] [place], [place] [address]Dr. Elver Gibson Sodium [Moles/Vol] 142 mmol/L Normal 136-145 [facility] Comment on above: Performed By: #### T SH, T7, CMP, BNP ####[facility] [address]yrfyoyth[address] [place] [address]Dr. Elver Gibson Urea nitrogen [Mass/Vol] 27.0 mg/dL Critically high 7.0-18.0 [facility] Comment on above: Performed By: #### T SH, T7, CMP, BNP ####[facility] Zcimclbfan9[address] [place] [address]Dr. Elver Gibson Urea nitrogen/Creatinine [Mass ratio] 22.7 mg/mg Normal [facility] Comment on above: Performed By: #### T SH, T7, CMP, BNP ####[facility] Tydlxedjwa59[address] [place] [address]Dr. Elver Gibson TSHon 09-09-2022 TSH 1.455 uIU/mL Normal 0.358-3.740 [facility] Comment on above: Performed By: #### T SH, T7, CMP, BNP ####[facility] Ugjphfffgk0218 [place], [place] [address]JkDr. Elver Gibson XR CHEST 2 Von 09-09-2022 [...] VAN VUONG Date: 2022-09-09 12:[address] [facility] INSULINon 02-15-2022 Insulin 11.3 uIU/mL Normal 2.6-24.9 [facility] Comment on above: Performed By: #### I NSULIN #### [facility] [address] [place] [address] Dr. Elver Gibson T4, T3U, FTI LABCORPon 02-15 Free Thyroxine Index 2.1 Normal 1.2-4.9 [facility] Comment on above: Performed By: #### T HYLC #### [facility] [address] [place] [address] Dr. Elver Gibson T3 Uptake 30 % Normal 24-39 [facility] Comment on above: Performed By: #### T HYLC #### [facility] [address] [place] [address] Dr. Elver Gibson T4 [Mass/Vol] 7.0 ug/dL Normal 4.5-12.0 [facility] Comment on above: Performed By: #### T HYLC #### [facility] [address] [place] [address] [address] Elver Gibson BNPon 02-14-2022 Natriuretic peptide B (Bld) [Mass/Vol] 229.0 pg/mL Normal <=1,800.0 [facility] Comment on above: Performed By: #### B ELECTRIC SHIPYARD OPERATOR, CMP, LIPID, TSH, URIC #### [facility] [address] [place] [address] Dr. Elver Gibson CBC AUTO DIFFon 02-14-2022 BASO # 0.0 103/ul Normal 0.0-0.[address] [facility] Comment on above: Performed By: #### C BC ####[facility] Szzihyvsqi[address] [place] [address]Dr. Elver Gibson Basophils/100 WBC (Bld) 0.7 % Normal 0.2-2.[address] [facility] Comment on above: Performed By: #### C BC ####[facility] [address]azxir[address] [place], [place] [address]DrRodolfo Gibson EO # 0.2 103/ul Normal 0.0-0.[address] [facility] Comment on above: Performed By: #### C BC ####[facility] [address]yzuoctk[address] [place], [place] [address]DrRodolfo Gibson Eosinophils/100 WBC (Bld) 3.9 % Normal 0.9-7.[address] [facility] Comment on above: Performed By: #### C BC ####[facility] [address]zn[address] [place], [place] [address]Dr. Elver Gibson Erythrocyte distribution width (RBC) [Ratio] 13.2 % Normal 11.0-15.[address] [facility] Comment on above: Performed By: #### C BC ####[facility] Pxrpvphvec[address] [place], [place] [address]Dr. Elver Gibson Hematocrit (Bld) [Volume fraction] 42.9 % Normal 42.0-54.[address] [facility] Comment on above: Performed By: #### C BC ####[facility] [address] [place], [place] [address]Dr. Elver Gibson Hemoglobin (Bld) [Mass/Vol] 14.2 g/dL Normal 14.0-18.[address] [facility] Comment on above: Performed By: #### C BC ####[facility] [address]fv[address] [place], [place] [address]DrRodolfo Gibson IG # 0.01 10e3/ul Normal 0.00-0.[address] [facility] Comment on above: Performed By: #### C BC ####[facility] Lkldrvefex95[address] [place] [id number]. Elver Gibson IG % 0.2 % Normal 0.0-0.[address] [facility] Comment on above: Performed By: #### C BC ####[facility] Bnjscmmaha4299 [place] [id number]. Elver Gibson LYMPH # 1.4 103/ul Normal 1.2-3.[address] [facility] Comment on above: Performed By: #### C BC ####[facility] Pwaoikhhpk34[address] [place] [id number]. Elver Gibson Lymphocytes/100 WBC (Bld) 24.0 % Normal 20.5-60.[address] [facility] Comment on above: Performed By: #### C BC ####[facility] Ufnfwnldfx[address] [place] [id number]. Elver Gibson MANUAL DIFF REQ NO Normal [facility] Comment on above: Performed By: #### C BC ####[facility] Uybaxmenns5238 [place] [phone]. Elver Gibson MCH (RBC) [Entitic mass] 33.3 pg Normal 25.9-34.[address] [facility] Comment on above: Performed By: #### C BC ####[facility] Rfupwnbzbz35[address] [place] [id number]. Elver Gibson MCHC (RBC) [Mass/Vol] 33.1 g/dL Normal 29.9-35.[address] [facility] Comment on above: Performed By: #### C BC ####[facility] Irwmtazeve5432 [place] [id number]. Elver Gibson MCV (RBC) [Entitic vol] 100.7 fL Critically high 80.0-94.[address] [facility] Comment on above: Performed By: #### C BC ####[facility] Xoiikeqibm2344 [place] [id number]. Elver Arthur MONO # 0.7 103/ul Normal 0.3-0.[address] [facility] Comment on above: Performed By: #### C BC ####[facility] Rfaqufsuxq7944 [place] [id number]. Elver Gibson Monocytes/100 WBC (Bld) 12.7 % Critically high 1.7-12.[address] [facility] Comment on above: Performed By: #### C BC ####[facility] Hsvfvlzvjp4[address] [place] [id number]. Elver Gibson NEUT # 3.3 103/ul Normal 1.4-6.[address] [facility] Comment on above: Performed By: #### C BC ####[facility] Onciforyqe5947 [place] [id number]. Elver Gibson Neutrophils/100 WBC (Bld) 58.5 % Normal 43.0-75.[address] [facility] Comment on above: Performed By: #### C BC ####[facility] Fkuuqrvvvy5990 [place] [id number]. Elevr Gibson Platelet mean volume (Bld) [Entitic vol] 9.6 fL Normal 9.5-13.5 [facility] Comment on above: Performed By: #### C BC ####[facility] Gybsyeelzz9[address] [place] [id number]. Elver Gibson PLT 183 103/ul Normal 150-[address] [facility] Comment on above: Performed By: #### C BC ####[facility] Efhcaswsdn5631 [place] [id number]. Elver Gibson RBC 4.26 106/ul Critically low 4.70-6.10 [facility] Comment on above: Performed By: #### C BC ####[facility] Cvntiivqlh6150 [place] [id number]. Elver Gibson WBC 5.7 103/ul Normal 4.0-11.[address] [facility] Comment on above: Performed By: #### C BC ####[facility] Utofdlexqe43[address] [place] [id number]. Elver Gibson GLYCOHEMOGLOBIN A1Con 2021 ADA RECOMMENDATION SEE BELOW Normal [facility] Comment on above: Result Comment: ADA RECOMMENDED LIMIT 4.0 - 6.0 ADA THERAPEUTIC TARGET < 7.0 ACTION SUGGESTED > 7.0 Performed By: #### A 1C #### [facility] [address] [place] [address] [address] Elver Gibson Glucose [Mass/Vol] 108 mg/dL Normal [facility] Comment on above: Performed By: #### A 1C #### [facility] [address] [place] [address] [address] Elver Gibson HbA1c (Bld) [Mass fraction] 5.4 % Normal 4.5-6.2 [facility] Comment on above: Performed By: #### A 1C #### [facility] [address] [place] [address] Dr. Elver Gibson LIPID PROFILEon 02-14-2022 CHOL-HDL RATIO NORM SEE BELOW Normal [facility] Comment on above: Result Comment: 3.3 - 4.4 LOW RISK 4.4 - 7.1 AVERAGE RISK 7.1 - 11.0 MODERATE RISK >11.0 HIGH RISK Performed By: #### B ELECTRIC SHIPYARD OPERATOR, CMP, LIPID, TSH, URIC #### [facility] [address] [place] [address] Dr. Elver Gibson Cholesterol [Mass/Vol] 174 mg/dL Normal <=200 [facility] Comment on above: Performed By: #### B ELECTRIC SHIPYARD OPERATOR, CMP, LIPID, TSH, URIC #### [facility] [address] [place] [address] Dr. Elver Gibson Cholesterol in HDL [Mass/Vol] 63 mg/dL Critically high 40-60 [facility] Comment on above: Performed By: #### B ELECTRIC SHIPYARD OPERATOR, CMP, LIPID, TSH, URIC #### [facility] [address] [place] [address] Dr. Elver Gibson Cholesterol in LDL [Mass/Vol] 100.4 mg/dL Normal [facility] Comment on above: Performed By: #### B ELECTRIC SHIPYARD OPERATOR, CMP, LIPID, TSH, URIC #### [facility] [address] [place] [address] Dr. Elver Gibson Cholesterol.total/C holesterol in HDL [Mass ratio] 2.8 {ratio} Normal [facility] Comment on above: Performed By: #### B ELECTRIC SHIPYARD OPERATOR, CMP, LIPID, TSH, URIC #### [facility] [address] [place] [address] [address] Elver Gibson HDL NORMAL > or = 60 mg/dl - LO W CARDIOVASCULAR RISK <40 mg/dl - HIGH CARDIOVASCULAR RISK Normal [facility] Comment on above: Performed By: #### B ELECTRIC SHIPYARD OPERATOR, CMP, LIPID, TSH, URIC #### [facility] [address] [place] [address] [address] Elver Gibson LDL CALC NORMAL SEE BELOW Normal [facility] Comment on above: Result Comment: <100 mg/dl OPTIMAL 100 - 129 mg/dl NEAR OR ABOVE OPTIMAL 130 - 159 mg/dl BORDERLINE HIGH 160 - 189 mg/dl HIGH >190 mg/dl VERY HIGH Performed By: #### B ELECTRIC SHIPYARD OPERATOR, CMP, LIPID, TSH, URIC #### [facility] [address] [place] [address] [address] Elver Gibson Triglyceride [Mass/Vol] 53 mg/dL Normal <=150 [facility] Comment on above: Performed By: #### B ELECTRIC SHIPYARD OPERATOR, CMP, LIPID, TSH, URIC #### [facility] [address] [place] [address] [address] Elver Gibson VLDL CALC 10.6 mg/dL Normal [facility] Comment on above: Performed By: #### B ELECTRIC SHIPYARD OPERATOR, CMP, LIPID, TSH, URIC #### [facility] [address] [address] [address] Elver Gibson PROF 14(COMP METB)on 022 Albumin [Mass/Vol] 3.7 g/dL Normal 3.4-5.0 [facility] Comment on above: Performed By: #### B ELECTRIC SHIPYARD OPERATOR, CMP, LIPID, TSH, URIC #### [facility] [address] [place] [address] [address] Elver Gibson Albumin/Globulin [Mass ratio] 1.1 {ratio} Normal [facility] Comment on above: Performed By: #### B ELECTRIC SHIPYARD OPERATOR, CMP, LIPID, TSH, URIC #### [facility] [address] [place] [address] [address] Elver Gibson ALP [Catalytic activity/Vol] 64 U/L Normal 46-116 [facility] Comment on above: Performed By: #### B ELECTRIC SHIPYARD OPERATOR, CMP, LIPID, TSH, URIC #### [facility] [address] [place] [address] Dr. Elver Gibson ALT [Catalytic activity/Vol] 27 U/L Normal 16-63 [facility] Comment on above: Performed By: #### B ELECTRIC SHIPYARD OPERATOR, CMP, LIPID, TSH, URIC #### [facility] [address] [place] [address] Dr. Elver Gibson Anion gap [Moles/Vol] 9.7 mmol/L Normal [facility] Comment on above: Performed By: #### B ELECTRIC SHIPYARD OPERATOR, CMP, LIPID, TSH, URIC #### [facility] [address] [place] [address] Dr. Elver Gibson AST [Catalytic activity/Vol] 30 U/L Normal 15-37 [facility] Comment on above: Performed By: #### B ELECTRIC SHIPYARD OPERATOR, CMP, LIPID, TSH, URIC #### [facility] [address] [place] [address] Dr. Elver Gibson Bilirubin [Mass/Vol] 0.7 mg/dL Normal 0.2-1.0 [facility] Comment on above: Performed By: #### B ELECTRIC SHIPYARD OPERATOR, CMP, LIPID, TSH, URIC #### [facility] [address] [place] [address] Dr. Elver Gibsno Calcium [Mass/Vol] 8.9 mg/dL Normal 8.5-10.1 [facility] Comment on above: Performed By: #### B ELECTRIC SHIPYARD OPERATOR, CMP, LIPID, TSH, URIC #### [facility] [address] [place] [address] Dr. Elver Gibson Chloride [Moles/Vol] 104 mmol/L Normal 98-[address] [facility] Comment on above: Performed By: #### B ELECTRIC SHIPYARD OPERATOR, CMP, LIPID, TSH, URIC #### [facility] [address] [place] [address] Dr. Elver Gibson CO2 [Moles/Vol] 31.8 mmol/L Normal 21.0-32.[address] [facility] Comment on above: Performed By: #### B ELECTRIC SHIPYARD OPERATOR, CMP, LIPID, TSH, URIC #### [facility] [address] [address] [address] Elver Gibson Creatinine [Mass/Vol] 1.19 mg/dL Normal 0.70-1.30 [facility] Comment on above: Performed By: #### B ELECTRIC SHIPYARD OPERATOR, CMP, LIPID, TSH, URIC #### [facility] [address] [address] [address] Elver Gibson EGFR-AF GABONESE >60 Normal >=[address] [facility] Comment on above: Performed By: #### B ELECTRIC SHIPYARD OPERATOR, CMP, LIPID, TSH, URIC #### [facility] [address] [place] [address] Dr. Elver Gibson EGFR-NON AF GABONESE 59 mL/min/1.73m2 Critically low >=60 [facility] Comment on above: Performed By: #### B ELECTRIC SHIPYARD OPERATOR, CMP, LIPID, TSH, URIC #### [facility] [address] [place] [address] Dr. Elver Gibson Globulin (S) [Mass/Vol] 3.4 g/dL Normal [facility] Comment on above: Performed By: #### B ELECTRIC SHIPYARD OPERATOR, CMP, LIPID, TSH, URIC #### [facility] [address] [place] [address] Dr. Elver Gibson Glucose [Mass/Vol] 97 mg/dL Normal 74-106 [facility] Comment on above: Performed By: #### B ELECTRIC SHIPYARD OPERATOR, CMP, LIPID, TSH, URIC #### [facility] [address] [place] [address] Dr. Elver Gibson Potassium [Moles/Vol] 4.5 mmol/L Normal 3.5-5.[address] [facility] Comment on above: Performed By: #### B ELECTRIC SHIPYARD OPERATOR, CMP, LIPID, TSH, URIC #### [facility] [address] [place] [address] Dr. Elver Gibson Protein [Mass/Vol] 7.1 g/dL Normal 6.4-8.2 [facility] Comment on above: Performed By: #### B ELECTRIC SHIPYARD OPERATOR, CMP, LIPID, TSH, URIC #### [facility] [address] [place] [address] Dr. Elver Gibson Sodium [Moles/Vol] 141 mmol/L Normal 136-145 [facility] Comment on above: Performed By: #### B ELECTRIC SHIPYARD OPERATOR, CMP, LIPID, TSH, URIC #### [facility] [address] [place] [address] Dr. Elver Gibson Urea nitrogen [Mass/Vol] 31.0 mg/dL Critically high 7.0-18.0 [facility] Comment on above: Performed By: #### B ELECTRIC SHIPYARD OPERATOR, CMP, LIPID, TSH, URIC #### [facility] [address] [place] [address] Dr. Elver Gibson Urea nitrogen/Creatinine [Mass ratio] 26.1 mg/mg Normal [facility] Comment on above: Performed By: #### B ELECTRIC SHIPYARD OPERATOR, CMP, LIPID, TSH, URIC #### [facility] [address] [place] [address] Dr. Elver Gibson TSHon 02-14-2022 TSH 1.829 uIU/mL Normal 0.358-3.[address] [facility] Comment on above: Performed By: #### B ELECTRIC SHIPYARD OPERATOR, CMP, LIPID, TSH, URIC #### [facility] [address] [place] [address] Dr. Elver Gibson URIC ACID SERUMon 02-14-2022 Urate [Mass/Vol] 7.1 mg/dL Normal 3.5-7.2 [facility] Comment on above: Performed By: #### B ELECTRIC SHIPYARD OPERATOR, CMP, LIPID, TSH, URIC #### [facility] [address] [place] [address] Dr. Elver Nicole 09-24-2021 CNPN Telephone (OPHTMN) BRANDI RAHMAN ([id number]) 1940 M Date Time Provider Department 09/24/21 TALCOZULEMA LEIJA During your visit today, we recorded the [...] Reason for Visit: Received Outside Medical Records [[id number]] Cmt: Ho Alberto OD [phone] Fax Prescriptions as of 09/24/2021 - diltiazem [...] Status:Closed by MANSI MONTANEZ on 09/24/21 Normal [facility] Ambulatory Clinical Summaryo n 02-28-2020 Ambulatory Clinical Summary {[id number]}CD:[id number] Normal [facility] Ambulatory Clinical Summary {[id number]}CD:[id number] Normal [facility] Patient Educationon 02-28-20 20 Patient Education [...] severe dizz (more content not included)... Normal [facility] Urology Office/Clinic Noteon 02-28-2020 Urology Office/Clinic [...] When Contact Information Arsalan Ryder MD, [address] [place] [phone]- Additional Instructions: 1yr. w/ KUB and PSA Patient Education Benign Prostatic Hypertrophy IMarichuy , personally scribed for Dr. Arriaza on [...] intravenous solution, IV, Once losartan, Oral, Daily [place]-3 Osteo Bi-Flex selenium, Oral, Daily Vitamin C, [...] Negative (09 (more content not included)... Normal [facility] Comment on above: Result Comment: Elec tronically Signed By: Arsalan Ryder MD, Roger Agosto\.br\Date and Time Signed: 02/28/20 10:32 EDT\.br\Electronically Co-Signed By: Marichuy Hernández MA\.br\Date and Time Co-Signed: 02/28/20 10:21 EDT No Panel Information [facility] Vital Signs Date Time Vital Sign Value Performing Clinician Facility 02-04-2024 16:16-0400 Body height 165.1 cm Eduarda Blank MD Work Phone: [facility] 02-04-2024 16:16-0400 Body mass index (BMI) [Ratio] 26.38 kg/m2 Eduarda Blank MD Work Phone: [facility] 02-04-2024 16:16-0400 Body weight 71.89 kg Eduarda Blank MD Work Phone: [facility] 02-04-2024 16:16-0400 Diastolic blood pressure 94 mm[Hg] Eduarda Blank MD Work Phone: [facility] 02-04-2024 16:16-0400 Heart rate 88 /min Eduarda Blank MD Work Phone: [facility] 02-04-2024 16:16-0400 SaO2% (BldA) [Mass fraction] 96 % Eduarda Blank MD Work Phone: [facility] 02-04-2024 16:16-0400 Systolic blood pressure 135 mm[Hg] Eduarda Blank MD Work Phone: [facility] 01-28-2023 13:33-0400 Body height 167.64 cm Samantha M Hoy Work Phone: [facility] 250 DO Work Phone: 01-28-2023 13:33-0400 Body mass index (BMI) [Ratio] 27.92 kg/m2 Samantha M Hoy Work Phone: [facility] 250 DO Work Phone: 01-28-2023 13:33-0400 Body surface area Derived from formula 1.88 m2 Samantha M Hoy Work Phone: [facility] 250 DO Work Phone: 01-28-2023 13:33-0400 Body weight 78.47 kg Samantha M Hoy Work Phone: [facility] 250 DO Work Phone: 01-28-2023 13:33-0400 Diastolic blood pressure 92 mm[Hg] Samantha M Hoy Work Phone: [facility] 250 DO Work Phone: 01-28-2023 13:33-0400 Diastolic blood pressure 90 mm[Hg] Samantha M Hoy Work Phone: [facility] 250 DO Work Phone: 01-28-2023 13:33-0400 Diastolic blood pressure 80 mm[Hg] Samantha M Hoy Work Phone: [facility] 250 DO Work Phone: 01-28-2023 13:33-0400 Heart rate 84 /min Samantha M Hoy Work Phone: [facility] 250 DO Work Phone: 01-28-2023 13:33-0400 Systolic blood pressure 162 mm[Hg] Samantha M Hoy Work Phone: [facility] 250 DO Work Phone: 01-28-2023 13:33-0400 Systolic blood pressure 152 mm[Hg] Samantha M Hoy Work Phone: [facility] 250 DO Work Phone: 01-28-2023 13:33-0400 Systolic blood pressure 124 mm[Hg] Samantha M Hoy Work Phone: [facility] 250 DO Work Phone: 01-28-2023 13:33-0400 91 1 Samantha M Hoy Work Phone: [facility] 250 DO Work Phone: Comment on above: PULRateLy 01-28-2023 13:33-0400 84 1 Samantha M Hoy Work Phone: [facility] 250 DO Work Phone: Comment on above: PULRateSit 01-28-2023 13:33-0400 90 1 Samantha M Hoy Work Phone: [facility] 250 DO Work Phone: Comment on above: PULRateSt 01-28-2023 13:28-0400 Body height 167.64 cm Samantha M Hoy Work Phone: [facility] 250 DO Work Phone: 01-28-2023 13:28-0400 Body mass index (BMI) [Ratio] 27.92 kg/m2 Samantha M Hoy Work Phone: [facility] 250 DO Work Phone: 01-28-2023 13:28-0400 Body surface area Derived from formula 1.88 m2 Samantha M Hoy Work Phone: [facility] 250 DO Work Phone: 01-28-2023 13:28-0400 Body weight 78.47 kg Samantha M Hoy Work Phone: [facility] 250 DO Work Phone: 01-28-2023 13:28-0400 Diastolic blood pressure 90 mm[Hg] Samantha M Hoy Work Phone: [facility] 250 DO Work Phone: 01-28-2023 13:28-0400 Heart rate 91 /min Samantha M Hoy Work Phone: [facility] 250 DO Work Phone: 01-28-2023 13:28-0400 Systolic blood pressure 152 mm[Hg] Samantha M Hoy Work Phone: [facility] 250 DO Work Phone: 12-01-2022 13:03-0400 Diastolic blood pressure 60 mm[Hg] Samantha M Hoy Work Phone: [facility] 250 DO Work Phone: 12-01-2022 13:03-0400 Systolic blood pressure 120 mm[Hg] Samantha M Hoy Work Phone: [facility]Prbkpkyqfa[facility]Kmor [facility] 250 DO Work Phone: 12-01-2022 12:48-0400 Body height 167.64 cm Samantha M Hoy Work Phone: [facility]Miimflnopm[facility]Uxfy [facility] 250 DO Work Phone: 12-01-2022 12:48-0400 Body mass index (BMI) [Ratio] 28.41 kg/m2 Samantha M Hoy Work Phone: [facility]Woqqlaxsud[facility]Apjc [facility] 250 DO Work Phone: 12-01-2022 12:48-0400 Body surface area Derived from formula 1.89 m2 Samantha M Hoy Work Phone: CV[facility]Tkajziywuf-Wtuq [facility] 250 DO Work Phone: 12-01-2022 12:48-0400 Body weight 79.83 kg Samantha M Hoy Work Phone: CE[facility]Gbejqpzawn-Hqiw [facility] 250 DO Work Phone: 12-01-2022 12:48-0400 Diastolic blood pressure 60 mm[Hg] Samantha M Hoy Work Phone: PF-Wpfbdqkrep-Jiux [facility] 250 DO Work Phone: 12-01-2022 12:48-0400 Heart rate 76 /min Samantha Toney Hoy Work Phone: [facility]ke[facility]Splc [facility] 250 DO Work Phone: 12-01-2022 12:48-0400 Systolic blood pressure 94 mm[Hg] Samantha Toney Hoy Work Phone: MH[facility]Eryipkgvfw-Dvge [facility] 250 DO Work Phone: 11-04-2022 07:53-0400 65 1 Samantha M Hoy Work Phone: [facility] 250 DO Work Phone: Comment on above: [id number] 10-24-2022 10:01-0400 Body height 175.26 cm Samantha Toney Hoy Work Phone: [facility] 250 DO Work Phone: 10-24-2022 10:01-0400 Body mass index (BMI) [Ratio] 26.58 kg/m2 Samantha M Hoy Work Phone: [facility] 250 DO Work Phone: 10-24-2022 10:01-0400 Body surface area Derived from formula 1.98 m2 Samantha Recio Work Phone: [facility] 250 DO Work Phone: 10-24-2022 10:01-0400 Body weight 81.65 kg Samantha Recio Work Phone: [facility] 250 DO Work Phone: 10-24-2022 10:01-0400 Diastolic blood pressure 82 mm[Hg] Samantha Recio Work Phone: [facility] 250 DO Work Phone: 10-24-2022 10:01-0400 Heart rate 84 /min Samantha Recio Work Phone: [facility] 250 DO Work Phone: 10-24-2022 10:01-0400 Systolic blood pressure 144 mm[Hg] Samantha Recio Work Phone: [facility] 250 DO Work Phone: Encounters Encounter Date Encounter Type Care Provider Facility Start: 02-05-2024 End: 02-05-2024 Orders Only Arsen Talavera MD Work Phone: Cardiology Comment on above: Paroxysmal atrial fi brillation (HCC) (Primary Dx) Start: 02-04-2024 End: 02-04-2024 Patient encounter procedure Eduarda Blank MD Work Phone: Cardiology Comment on above: Paroxysmal atrial fi brillation (HCC) (Primary Dx); Chronic systolic (congestive) heart failure (HCC); Essential hypertension, benign; Tachycardia induced cardiomyopathy (HCC); Cardiomyopathy, nonischemic (HCC); Non-rheumatic mitral regurgitation; Other specified hypothyroidism; Other hyperlipidemia; Carpal tunnel syndrome, unspecified laterality; History of partial colectomy; History of gastrointestinal bleeding; Chronic anticoagulation Start: 01-08-2024 End: 01-08-2024 ambulatory [facility] Start: 12-31-2023 End: 12-31-2023 ambulatory HUSEYIN J [facility] Start: 12-25-2023 End: 12-25-2023 ambulatory [facility] Start: 05-25-2023 End: 05-25-2023 ambulatory [facility] Start: 01-28-2023 Patient encounter procedure Samantha Recio Work Phone: [facility] 250 DO Work Phone: Start: 01-28-[address] Deon michael Rasmussen Facility: Start: 12-01-2022 Office outpatient vi sit 25 minutes Samantha Recio Work Phone: [facility]Vwm[facility]bad[facility]Uqdgipqs 250 DO Work Phone: Start: 12-01-[address] Deon Rasmussen Facility: Start: 10-31-[address] Deon michael Rasmussen Facility:[id number] Start: 10-31-2022 End: 10-31-2022 ambulatory [facility] Start: 10-31-2022 Rx Renewal Samantha M Fracisconick Work Phone: [facility] DO Work Phone: Start: 10-27-2022 End: 10-27-2022 ambulatory [facility] Facility[facility] Start: 10-24-[address] Samantha Recio Facility: Start: 09-16-2022 End: 09-17-[address] SAMANTHA RECIO . Facility:[facility] Start: 09-09-2022 End: 09-10-[address] SAMANTHA RECIO . Facility:[facility] Start: 02-14-2022 End: 02-15-[address] SAMANTHA RECIO . 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 Comment on above: Performed By: #### [facility] ####[facility] [address] [place], [place] [address]OkDr. Elver Gibson Start: 11-14-2021 End: 11-14-2021 Computerized ophthalmic imaging retina Zulema Levin MD Work Phone: Arthroplasty of knee Samantha Recio Work Phone: Cardiac catheterization Edilberto las Toney Recio Work Phone: Decompression of med nehemiah nerve Samantha Recio Work Phone: Excision of colon Samantha Recio Work Phone: Neuroplasty and transposition of median nerve at carpal tunnel Samantha Recio Work Phone: Neuroplasty With Transposition Of Ulnar Nerve Samantha Recio Work Phone: Tonsillectomy Samantha Recio Work Phone: Plan of Treatment Date Care Activity Detail Author Start: 05-24-2024 End: 05-24-2024 ambulatory 05/24/2024 9:15 AM EST Results Only [place] [address] [address] [place] [address] DX: Chronic systolic heart failure [place] [address] [address] Comment on above: DX: Chronic systolic heart failure Start: 05-24-2024 End: 05-24-2024 Patient encounter procedure Vascular Medicine Comment on above: DX: Chronic systolic heart failure Start: 05-06-2024 End: 02-03-2025 Echocardiography ECHO Cardiology Routine Paroxysmal atrial fibrillation (HCC) Chronic systolic (congestive) heart failure (HCC) Expected: 05/06/2024, Expires: 02/03/2025 [facility] Comment on above: Expected: 05/06/2024 , Expires: 02/03/2025 Start: 03-18-2024 End: 03-18-2024 Patient encounter procedure Cardiology Comment on above: Paroxysmal atrial fi brillation (HCC) [I48.0] Start: 03-18-2024 End: 03-18-2024 ambulatory 03/18/2024 8:00 AM EDT Results Only Cardiology [address] [place] [address] Paroxysmal atrial fibrillation (HCC) [I48.0] Cardiology Comment on above: Paroxysmal atrial fi brillation (HCC) [I48.0] Start: 02-09-2024 End: 02-09-2024 Admission to same day surgery center 02/09/2024 5:15 PM EDT - 02/09/2024 6:15 PM EDT Surgery HOSP EP Lab [address] [place] [address] [address] Qures[address] 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 [address] [place] [address] Persistent atrial fibrillation (HCC) [I48.19] HOSP EP Lab Comment on above: Persistent atrial fi brillation (HCC) [I48.19] Start: 02-09-2024 End: 02-09-2024 Patient encounter procedure Admitting Comment on above: interview DCC DCCV Start: 02-07-2024 Influenza vaccination Influenza Vacc ine (#1) [facility] Start: 02-04-2024 End: 05-05-2024 Comprehensive metabolic 2000 panel - Serum or Plasma COMPREHENSIVE METABOLIC PANEL Lab STAT Paroxysmal atrial fibrillation (HCC) Chronic systolic (congestive) heart failure (HCC) Expected: 02/04/2024, Expires: 05/05/2024 [facility] Comment on above: Expected: 02/04/2024 , Expires: 05/05/2024 Start: 02-04-2024 End: 05-05-2024 Natriuretic peptide.B prohormone N-Terminal [Mass/volume] in Serum or Plasma NT PRO BNP Lab STAT Paroxysmal atrial fibrillation (HCC) Chronic systolic (congestive) heart failure (HCC) Expected: 02/04/2024, Expires: 05/05/2024 [facility] Comment on above: Expected: 02/04/2024 , Expires: 05/05/2024 Start: 02-04-2024 End: 05-05-2024 Thyrotropin [Units/volume] in Serum or Plasma THYROID STIMULATING HORMONE Lab Routine Paroxysmal atrial fibrillation (HCC) Chronic systolic (congestive) heart failure (HCC) Expected: 02/04/2024, Expires: 05/05/2024 [facility] Comment on above: Expected: 02/04/2024 , Expires: 05/05/2024 Start: 06-08-2023 Advance Directive Discussion Advance Directive Discussion [facility] Start: 05-20-2023 FUV, Provider: Deon Rasmussen, Status: Pen, Time: 9:10 AM FUV, Provider: Deon Rasmussen, Status: Pen, Time: 9:10 AM [facility] 250 DO Work Phone: Start: 02-06-2023 Covid-19 Vaccine ( season) Covid-19 Vaccine ( season) [facility] Start: 12-01-2022 FUV, Provider: Deon Rasmussen, Status: Pen, Time: 1:00 PM FUV, Provider: Deon Rasmussen, Status: Pen, Time: 1:00 PM [facility] 250 DO Work Phone: Start: 11-29-2022 End: 05-08-2023 OCT MACULA CIRRUS OU (BOTH EYES) OCT MACULA CIRRUS OU (BOTH EYES) OPHT Imaging Routine Epiretinal membrane (ERM) of both eyes Nevus of choroid of left eye Expected: 11/29/2022, Expires: 05/08/2023 [facility] Work Phone: Comment on above: Expected: 11/29/2022 , Expires: 05/08/2023 Start: 02-06-2022 Influenza vaccination INFLUENZA (Sea son Ended) [facility] Start: 08-17-2021 COVID-19 VACCINE (4 - Booster for Moderna series) COVID-19 VACCINE (4 - Booster for Moderna series) [facility] Start: 06-08-2021 ADVANCE DIRECTIVE DISCUSSION ADVANCE DIRECTIVE DISCUSSION [facility] Start: 09-10-2006 DIABETES SCREEN [facility] Start: 09-10-2006 Diabetes Screening Diabetes Screenin g [facility] Start: 2005 Pneumococcal Vaccine : 65+ (1 of 1 - PCV) Pneumococcal Vaccine: 65+ (1 of 1 - PCV) [facility] Start: 2005 PNEUMOCOCCAL: 65+ (1 - PCV) PNEUMOCOCCAL: 65+ (1 - PCV) [facility] Start: 2000 RSV Vaccine (1 - 1-d ose 60+ series) RSV Vaccine (1 - 1-dose 60+ series) [facility] Start: 1990 SHINGRIX VACCINE (1 of 2) HOLLINS GRIX VACCINE (1 of 2) [facility] Start: 09-29-1959 Urine microalbumin profile [facility] Start: 1958 Anxiety Screening Anxiety Screening [facility] Start: 1958 Depression Screening Depression Scre ening [facility] Cardioversion electi ve arrhythmia internal spx 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, ELECTIVE, ELECTRICAL Cardiology Routine Paroxysmal atrial fibrillation (HCC) Ordered: 02/04/2024 [facility] Work Phone: Comment on above: Ordered: 02/04/2024 End: 02-04-2025 ECG COMPLETE ECG COMPLETE ECG Routine Paroxysmal atrial fibrillation (HCC) 1 Occurrences starting 02/05/2024 until 02/04/2025 [facility] Work Phone: Comment on above: 1 Occurrences starti ng 02/05/2024 until 02/04/2025 End: 02-03-2025 ECHO TRANSESOPHAGEAL ECHO TRANSESOPHAGEAL Cardiology Routine Paroxysmal atrial fibrillation (HCC) 1 Occurrences starting 02/04/2024 until 02/03/2025 [facility] Comment on above: 1 Occurrences starti ng 02/04/2024 until 02/03/2025 Immunizations Immunization Date Immunization Notes Care Provider Glenroy pleitez 04-19-2021 Moderna COVID-19 Vac cine 100 MCG/0.5ML Intramuscular Suspension Samantha M Hoy Work Phone: [facility] 250 DO Work Phone: 2020 Moderna COVID-19 Vac cine 100 MCG/0.5ML Intramuscular Suspension Samantha M Hoy Work Phone: [facility] 250 DO Work Phone: 08-31-2020 Moderna COVID-19 Vac cine 100 MCG/0.5ML Intramuscular Suspension Samantha M Hoy Work Phone: [facility] 250 DO Work Phone: 04-07-2017 influenza virus vacc ine, unspecified formulation Samantha M Hoy Work Phone: [facility] 250 DO Work Phone: 03-25-2016 influenza virus vacc ine, unspecified formulation Samantha M Hoy Work Phone: [facility] 250 DO Work Phone: 03-17-2016 influenza, high dose seasonal, preservative-free Samantha M Hoy Work Phone: [facility] 250 DO Work Phone: Payers Date Payer Category Payer Self-pay 2020 Unknown MMO MMO MEDICARE SUPPLEMENT [id number] 2020-Present [phone] [address] [place] [address] Indemnity [id number] 2020 Unknown 2005 Medicare MEDICARE MEDICAR E A AND B [id number] 2005-Present [phone] [address] [address] [place] [address] Medicare [id number] 1959 Medicare [id number] 1959 Unknown [id number] 1940 Unknown [id number] 1940 Unknown [id number] 1940 Unknown [id number] 1940 Unknown [id number] 1940 Unknown [id number] 1940 Unknown [id number] 1940 Unknown [id number] 1940 Unknown [id number] 1940 Unknown [id number] 1940 Unknown [id number] 1940 Unknown [id number] Unknown [id number] Unknown [id number] Social History Date Type Detail Facility Start: 12-14-2015 [facility] Start: 12-14-2015 End: 02-04-2024 Tobacco use and exposure Smokeless tobacco non-user [facility] Start: 11-14-2021 End: 02-04-2024 Alcohol intake Current drinker of alcohol (finding) [facility] Start: 12-14-2015 History SDOH Alcohol Comment on occ [facility] Start: 1940 Sex Assigned At Not on file [facility] Start: 02-04-2024 Never a smoker Never a smoker [facility] 250 DO Work Phone: Comment on above: COFFEE DAILY; Start: 02-04-2024 Tobacco smoking stat us [facility] Ex-smoker [facility] Start: 06-08-1954 History of tobacco use Current smoke r [facility] Start: [birth year]-08-1954 History of tobacco use Cigarette Smo ker [facility] Start: 02-04-2024 Tobacco use panel [facility] National Score (1-100), lower number is lower risk 91 [facility] Goals Date Patient Goal Desired Activity /State Personal health goal History of Present illness Narrative 02-04-2024 Eduarda Blank MD - 02/04/2024 4:00 PM EDT Note Date & Type Note Facility 02-04-2024 History of Presen t illness Narrative Images from the original note were not included. [facility] SECTION OF HEART FAILURE and CARDIAC TRANSPLANT MEDICINE OUTPATIENT VISIT DATE February 04, 2024 OUTPATIENT VISIT TYPE Consultation PRIMARY CARE PHYSICIAN: MD Boy Wilson [address] [address] CHIEF COMPLAINT: HF NURSING INTAKE (Patient s concerns and/or recent hospitalizations/ER visits): Brandi Rahman JR is a 83 y/o male coming from [place], [place] for a cardiac evaluation PMHx of Combined systolic and diastolic heart failure; Moderate MR; Atrial fib; HLD; HTN; Carpal tunnel syndrome; Colitis; Hypothyroidism; GI Bleed; Kidney stone; HF Nursing Assessment: Interim Hospitalizations and/or ER visits: local admit on 12/29/2023 for heart failure Chest Pain: none today but does have some every couple of weeks Skipping or irregular heartbeats: none that he is aware of Shortness of breath at rest: yes Shortness of breath with activity: yes Cough: yes, dry Waking up in the middle of the night gasping for air: yes has been a couple weeks, better since on lasix Lightheadedness or dizziness: no Feeling like you are going to pass out: no Actually passing out: no Poor energy level: yes Unintentional weight gain: no Unintentional weight loss: about 20 pounds in the last year Swelling in your legs,feet, abdomen: yes, in his legs Filling up quickly when you eat: yes HISTORY OF PRESENT ILLNESS: Patient here today for further evaluation and management of heart failure. 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 He saw Dr. Yeager in [place] who did not address shortness of breath but for chronic atrial fibrillation he suggested the Watchman procedure to get off eliquis and cardioversion 02/04/24. Patient then went to PCP who did more testing and admitted patient to hospital 12/28- for heart failure. Echo notable for reduced LVEF. Received IV lasix and felt a little better but still had shortness of breath and here today for further management. PAST MEDICAL HISTORY No date: Atrial fibrillation (HCC) No date: Carpal tunnel syndrome No date: Cataract Comment: OU No date: Congestive heart failure (HCC) No date: Dyslipidemia No date: GI bleed No date: Heart disease No date: Hypertension No date: Hypothyroidism No date: Kidney stone 06/08/2000: Retinal tear Comment: OS PAST SURGICAL HISTORY 06/2000: PAST SURGICAL HISTORY OF Comment: Left eye Retinal detchement repair (laser) 1947: PAST SURGICAL HISTORY OF Comment: Tonsils 1967: PAST SURGICAL HISTORY OF Comment: Left pat Tend. 1975: PAST SURGICAL HISTORY OF Comment: Repair Left tricept tendent 2007: PAST SURGICAL HISTORY OF Comment: coloencetomy 2015: PAST SURGICAL HISTORY OF Comment: repair carpal tunnel LT No date: PAST SURGICAL HISTORY OF Comment: repair carpal tunnel RT 06/2000: XCAPSL CTRC RMVL INSJ IO LENS PROSTH W/O ECP; Left Comment: Cataract Extraction with PC IOL P[place]our 09/2003: XCAPSL CTRC RMVL INSJ IO LENS PROSTH W/O ECP; Right Comment: Cataract Extraction with PC IOL MARIVEL SOCIAL HISTORY Social History Tobacco Use Smoking status: Former Average packs/day: 0.3 packs/day for 5.0 years (1.3 ttl pk-yrs) Types: Cigarettes Start date: 1954 Smokeless tobacco: Never Substance Use Topics Alcohol use: Yes Comment: on occ Drug use: No FAMILY HISTORY Problem Relation Age of Onset Cataract Mother Hypertension Mother Cataract Father Hypertension Father Cancer Sister Diabetes Sister Cataract Sister Cancer Sister ALLERGIES: ALLERGIES No Known Allergies CURRENT MEDICATIONS: apixaban (ELIQUIS) 5 mg tab(s) Take 5 mg by mouth two times a day. LASIX 40 mg tablet Take 40 mg by mouth once daily. metoprolol succinate ER (TOPROL XL) 50 mg 24 hr tablet Take 50 mg by mouth once daily. Ziqlkwqeowrsc-Egdmutwd-Fawjba (CENTRUM SILVER) tab Take 1 tablet by mouth once daily. magnesium oxide 400 mg magnesium tab Take 400 mg by mouth once daily. KLOR-CON 10 10 mEq tablet Take 10 mEq by mouth two times a day. lisinopril (ZESTRIL) 5 mg tablet Take 5 mg by mouth once daily. ascorbic acid, vitamin C, (VITAMIN C) 500 mg tablet Take 500 mg by mouth once daily. acetaminophen (TYLENOL ARTHRITIS ORAL) Take by mouth as needed. CALCIUM CARBONATE/VITAMIN D3 (CALCIUM + D ORAL) Take by mouth. ZNOX/PYG/PUMPK/SAW PAL/PROST (MEN'S SAW PALMETTO FORMULA ORAL) Take by mouth. selenium 200 mcg cap Take by mouth. REVIEW OF SYSTEMS: CONSTITUTION: Positive for: Recent weight change Negative for: Fever and Night sweats HEENT: Negative for: Hearing loss, Nosebleeds, Mouth sores, Trouble swallowing, Dry mouth RESPIRATORY: Positive for: Cough and Difficulty breathing GASTROINTESTINAL: Positive for: Early satiety Negative for: Melena, Nausea, Diarrhea and Abdominal distention MUSCULOSKELETAL: Positive for: Arthralgias and Myalgias NEUROLOGICAL: Positive for: Headaches Negative for: Dizziness SKIN: Negative for: Rash EYES: Negative for: Vision disturbance CARDIOVASCULAR: Positive for: Chest pain, Leg swelling and Arrhythmia Negative for: Pre-syncope GENITOURINARY: Negative for: Difficulty urinating PATIENT ENTERED DATA: No data to display No data to display No data to display PHYSICAL EXAMINATION: BP 135/94 Pulse 88 Ht 165.1 cm (5' 5 ) Wt 71.9 kg (158 lb 8 oz) SpO2 96% BMI 26.38 kg/m General: Well appearing, in no acute distress. Skin: warm Eyes: Anicteric Oropharynx: Teeth in good repair. Neck: No jugular venous distention. Lungs: Clear to auscultation bilaterally, no wheezing or rhonchi. Heart: Irregular rhythm, PMI not displaced, S1, S2 normal, +S3, III/ HSM c/w Abdomen: Soft, nontender, bowel sounds normal, no palpable organomegaly, no bruits. Extremities: No peripheral edema . Neuro: Oriented to person, place and time, alert, cooperative, gait coordinated. Labs on 10/13/16: WBC 6, Hgb 14.8, plt 251, Na 140, K 4.7, BUN 31, Cr 1.06, Glu 102, LFTs nl CARDIOVASCULAR MEDICINE TESTING: I have personally reviewed the Echocardiogram. Echo 12/30/2023 SHARON 10/2022 IMPRESSION:83 yo man here for further evaluation and management of new onset heart failure with history of paroxysmal atrial fibrillation, hypertension, hyperlipidemia, moderate regurgitation, h/o carpal tunnel syndrome, hypothyroidism, s/p hemicolectomy for gastrointestinal bleeding with diverticulitis , and renal lithiasis. He has been on anticoagulation therapy for paroxysmal atrial fibrillastion since March 2023 but has missed a few doses. LVEF was normal in October of 2022. He was feeling fine until 2023 when he developed heart failure with shortness of breath and likely at that time had rapid atrial fbrillation. He was scheduled for cardioversion which did not happen and a watchman procedure was discussed. Since his heart failure symptoms progressed he was hospitalized December 28-, diagnosed with HFrEF (LVEF 30%) and given IV diuretics. [place] a little better but still has shortness of breath with limited activity. + orthopnea. No PND. Early satiety. The cause of his decline in LVEF to 30% is likely tachy-induced due to atrial fibrillation. The cause of his paroxysmal afib may be due to hypertension but will also need to rule out restrictive cardiomyopathy. He does not drink alcohol and does not snore or have sleep apnea. LHC in 2019 normal. On examination today he has no gross signs of heart failure but likely still has mild volume overload based on symptoms due to his tachycardia. NYHA Functional Class: III Stage: C heart failure PLAN AND RECOMMENDATIONS: Increase ToproL XL to 50 mg am and 25 mg pm x 2 days, then increase to 50 mg twice daily Arrange SHARON cadioversion as soon as possible Labs today and consider change potassium to spironolactone Followup in one month Eduarda Blank MD February 04, 2024 5:41 PM I personally interviewed, confirmed and edited the above information as obtained by others I personally spent 45 minutes in total time involved in the management and care of this patient. We discussed natural history of disease, current treatment options, and future potential treatment options. We discussed diet, exercise, other non-medical management as above. Eduarda Blank MD [facility] Section Of Heart Failure and Cardiac Transplant Medicine [facility] Desk [address] [place] [address] documented in this encounter [facility] Progress note 11-14-2021 Note Date & Type Note Facility 11-14-2021 Note HNO ID: [id number] Author: Zulema Levin MD Service: ? Author Type: Physician Type: Progress Notes Filed: 11/14/2021 10:16 AM Note Text: New patient to Dr. Levin Last seen with Dr. Alberto ([place]) who thought that the choroidal nevus left [...] with all of its relevant components. Zulema Levin MD [facility] History of Present illness Narrative 11-14-2021 Zulema Levin MD - 11/14/2021 9:50 AM EDT Note Date & Type Note Facility 11-14-2021 History of Presen t illness Narrative New patient to Dr. Levin Last seen with Dr. Alberto ([place]) who thought that the choroidal nevus left [...] with all of its relevant components. Zulema Levin MD documented in this encounter [facility] Evaluation note Note Date & Type Note Facility Evaluation note Diagnosis 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 Epiretinal membrane (ERM) of both eyes documented in this encounter [facility] Evaluation note Note Date & Type Note Facility Evaluation note Diagnosis Paroxysmal atrial fibrillation (HCC)- Primary Atrial fibrillation Chronic systolic (congestive) heart failure (HCC) Essential hypertension, benign Tachycardia induced cardiomyopathy (HCC) Tachycardia, unspecified Cardiomyopathy, nonischemic (HCC) Other primary cardiomyopathies Non-rheumatic mitral regurgitation Mitral valve disorders Other specified hypothyroidism Other hyperlipidemia Carpal tunnel syndrome, unspecified laterality History of partial colectomy History of gastrointestinal bleeding Personal history of other diseases of digestive system Chronic anticoagulation Long-term (current) use of anticoagulants documented in this encounter [facility] Evaluation note Note Date & Type Note Facility Evaluation note Diagnosis Paroxysmal atrial fibrillation (HCC)- Primary Atrial fibrillation Persistent atrial fibrillation (HCC) Atrial fibrillation documented in this encounter [facility] Reason for referral (narrative) Outpatient Procedure (Routine) - Authorized Note Date & Type Note Facility Reason for referral (narrati ve) Specialty Diagnoses / Procedures Referred By Contac t [facility] Diagnoses Paroxysmal atrial fibrillation (HCC) Procedures ECG COMPLETE ECG ROUTINE ECG W/LEAST 12 LDS W/I&R Arsen Talavera MD [address] [place] [address] [facility] [address] [id number] Referral ID Status Reason Start Date Expiration Date Visits Requested Visits Authorized [id number] Authorized Auto-Generat ed Referral 02/05/2024 02/04/2025 1 1 T [facility] Summary Purpose Family History Unknown Family Member Name Dates Details No pertinent [...] Directives Records Found Chief Complaint * BRANDI RAHMAN is being seen for results. * Patient [...] RN * TO Dr. Deon Rasmussen MD Reason for Referral Specialty Diagnoses / Procedures Referred By Sophia carlos Referred To [facility] Procedures CARDIOVASCULAR MEDICINE OP FOLLOW UP APPT ORDER Eduarda Blank MD [address] [place] [address] [facility] [email or web address] [place] [address] Referral ID Status Reason Start Date Expiration Date Visits Requested Visits Authorized [id number] Ref Not Required PCP Requested Referral 03/06/2024 02/03/2025 1 1 Specialty Diagnoses / Procedures Referred By Sophia carlos Referred To Contact Diagnoses Paroxysmal atrial fibrillation (HCC) Procedures CONSULT TO ELECTROPHYSIOLOGY OFFICE/OUTPATIENT [facility] 60 MINUTES Eduarda Blank MD [address] [place] [address] Referral ID Status Reason Start Date Expiration Date Visits Requested Visits Authorized [id number] Authorized PCP Requested Referral 02/04/2024 02/03/2025 1 1 Specialty Diagnoses / Procedures Referred By Contac t Referred To Contact [facility] Diagnoses Paroxysmal atrial fibrillation (HCC) Chronic systolic (congestive) heart failure (HCC) Procedures ECHO ECHO TTHRC R-T 2D W/WOM-MODE COMPL SPEC&[place] [address] [place] [address] [place] [address] Referral ID Status Reason Start Date Expiration Date Visits Requested Visits Authorized [id number] New Request Auto-Generat ed Referral 02/03/2025 1 1 Specialty Diagnoses / Procedures Referred By Contac t Referred To Contact [facility] Diagnoses Paroxysmal atrial fibrillation (HCC) Procedures ECHO TRANSESOPHAGEAL ECHO TRANSESOPHAG R-T 2D W/PRB IMG ACQUISJ I&R Eduarda Blank MD [address] [place] [address] [place] [address] Referral ID Status Reason Start Date Expiration Date Visits Requested Visits Authorized [id number] New Request Auto-Generat ed Referral 02/04/2024 02/03/2025 1 1 Additional Source Comments (unrecognized sect ion and content) No Status Records FoundNo Status Records FoundNo Status Records FoundNo Status Records FoundNo Status Records FoundNo Status Records FoundNo Status Records FoundNo Status Records FoundNo Status Records Found INFORMATION SOURCE (unrecogn ized section and content) DATE CREATED AUTHOR 01/19/2021 [facility] DATE CREATED AUTHOR AUTHOR'S ORGANIZ ATION 11/14/2021 [facility] DATE CREATED AUTHOR AUTHOR'S ORGANIZ ATION 09/22/2022 [facility] DATE CREATED AUTHOR AUTHOR'S ORGANIZ ATION 11/16/2022 [facility] DATE CREATED AUTHOR AUTHOR'S ORGANIZ ATION 12/02/2022 [facility] DATE CREATED AUTHOR AUTHOR'S ORGANIZ ATION 01/29/2023 [facility] DATE CREATED AUTHOR AUTHOR'S ORGANIZ ATION 01/04/2024 [facility] DATE CREATED AUTHOR AUTHOR'S ORGANIZ ATION 01/13/2024 [facility] DATE CREATED AUTHOR AUTHOR'S ORGANIZ ATION 02/03/2024 [facility] Ambulatory Source Comments (unrecognize d section and content) In the event this informatio n is protected by the Federal Confidentiality of Alcohol and Drug Abuse Patient Records regulations: The Federal rules restrict any use of the information to criminally investigate or prosecute any alcohol or drug abuse patient[facility] event this information is protected by the Federal Confidentiality of Alcohol and Drug Abuse Patient Records regulations: The Federal rules restrict any use of the information to criminally investigate or prosecute any alcohol or drug abuse patient[facility] the event this information is protected by the Federal Confidentiality of Alcohol and Drug Abuse Patient Records regulations: The Federal rules restrict any use of the information to criminally investigate or prosecute any alcohol or drug abuse patient.[facility] Reason for Visit (unrecogniz ed section and content) Reason Comments Epiretinal Membrane Follow Up [facility] Choroidal nevus of left eye Reason Comments Consult Care Teams (unrecognized sec tion and content) 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 [facility] [employer] [facility]. provides no warranty or guarantee of the accuracy or completeness of information in this document.
[2024-02-05 13:04] LABS: Basophils Percent Auto 0.7 % (0.2-2.0); Eosinophils Absolute Auto 0.2 10^3/uL (0.0-0.7); Eosinophils Percent Auto 2.8 % (0.9-7.0); Hematocrit 42.3 % (42.0-54.0); Hemoglobin 14.2 g/dL (14.0-18.0); Immature Granulocytes Abs Auto 0.01 10^3/uL (0.00-0.03); Immature Granulocytes Pct Auto 0.2 % (0.0-0.5); Lymphocytes Absolute Auto 1.1 10^3/uL (1.2-3.8); Lymphocytes Percent Auto 18.4 % (20.5-60.0); Mean Corpuscular HGB Conc 33.6 g/dL (29.9-35.2); Mean Corpuscular Volume 104.2 fL (80.0-94.0); Mean Platelet Volume 9.9 fL (9.5-13.5); Monocytes Absolute Auto 0.8 10^3/uL (0.3-0.8); Monocytes Percent Auto 12.8 % (1.7-12.0); Neutrophils Percent Auto 65.1 % (43.0-75.0); Platelet Count 228 10^3/uL (150-450); Red Blood Count 4.06 10^6/uL (4.70-6.10); Red Cell Distribution Width 14.4 % (11.0-15.0); White Blood Count 6.1 10^3/uL (4.0-11.0)
[2024-02-05 14:21] LABS: Alanine Aminotransferase 26 U/L (16-63); Albumin Globulin Ratio 0.9; Albumin Level 3.3 g/dL (3.4-5.0); Alkaline Phosphatase 82 U/L (46-116); Anion Gap 9.4; Aspartate Amino Transferase 35 U/L (15-37); BUN Creatinine Ratio 20.5; Bilirubin Total 0.9 mg/dL (0.2-1.0); Calcium 9.2 mg/dL (8.5-10.1); Carbon Dioxide 33.2 mmol/L (21.0-32.0); Chloride 103 mmol/L (98-107); Estimated GFR (African America 56 (>=60); Estimated GFR (Non-African Ame 46 (>=60); Globulin 3.7 g/dL; Glucose 115 mg/dL (74-106); Potassium 4.6 mmol/L (3.5-5.1); Sodium 141 mmol/L (136-145); Thyroid Stimulating Hormone 1.591 uIU/mL (0.358-3.740)
== END 2024-02-05 12:33 | disposition home or self-care (01) ==
LOC: LAB 12:36
PROVIDERS: PCP Family Medicine
DX: I50.9 Heart failure, unspecified (principal)
CPT/HCPCS: 36415; 80053; 83880; 84443; 85025

== ENCOUNTER 2024-03-31 11:24 | Outpatient (OUT) | payer MEDICARE, OTHER, SELFPAY ==
--- OUTSIDE RECORDS SUMMARY | 2024-03-31 11:37 | XMS_ITS | CCD ---
Author Organization [facility] Care Team Providers Care Pulper Name Role Phone Jailyn Milan Primary Care Provider [phone] FRANCESCO ., DR SINGH Admitting Unavailable HOY ., [...] Unavailable Samantha Recio M Unavailable Unavailable Unavailable Avelina Rasmussen Admitting Unavailable Avelina Rasmussen Attending Unavailable Samantha Recio Primary Care Unavailable Avelina Rasmussen Admitting Unavailable Avelina Rasmussen Attending Unavailable Samantha Recio Primary Care Unavailable Rasmussen, Dr. Avelina Frank Attending Anita vailable Grady, Dr. Avelina Frank Referring Anita vailable Francesco, Dr. Samantha Reyes Primary Care Unavail able Rasmussen, Dr. Avelina Frank Attending Anita vailable Grady, Dr. Avelina Frank Referring Anita vailable Francesco, Dr. Samantha Reyes Primary Care Unavail able Rasmussen, Dr. Avelina Frank Attending Anita vailable Francesco, Dr. Samantha Reyes Primary Care Unavail able Honick, Dr. Samantha Reyes Primary Care Unavail able Rasmussen, Dr. Avelina Frank Attending Anita vailable Grady, Dr. Avelina Frank Referring Anita vailable HUSEYIN MARIA Attending Unavailable HUSEYIN MARIA Referring Unavailable SAMANTHA RECIO Primary Care Unavailable AVELINA RASMUSSEN Referring Unavailable SAMANTHA RECIO Primary Care Unavailable AVELINA RASMUSSEN Attending Unavailable SAMANTHA RECIO Primary Care Unavailable AVELINA RASMUSSEN Attending Unavailable SAMANTHA RECIO Primary Care Unavailable Jailyn Milan Primary Care Provider Samantha Recio MD Primary Care Provider [phone] OSMAN RODRIGUEZ Referring Unavailable JAILYN MILAN Primary Care Unavailable SAMANTHA RECIO Primary Care Unavailable COMPA CORCORAN Attending Unavailable KENDRA MENDOZA Referring Unavailable SAMANTHA RECIO Primary Care Unavailable RD TINEO Attending Unavailable RD TINEO Admitting Unavailable ARSEN TALAVERA Referring Unavailable ASMANTHA RECIO Primary Care Unavailable SAMANTHA RECIO Primary Care Unavailable KENDRA MENDOZA Referring Unavailable SAMANTHA RECIO Primary Care Unavailable KENDRA MENDOZA Referring Unavailable SELF Referring Unavailable KENDRA MENDOZA Attending Unavailable JAILYN MILAN Primary Care Unavailable Medications Current Medications Medication Drug Class(es) Dates Sig (Normalized) Sig (Original) Acetaminophen (8 sources) acetaminophen (T YLENOL ARTHRITIS ORAL) Take by mouth as needed. Active acetaminophen (T YLENOL ARTHRITIS ORAL) Take by mouth as needed. 0 Active Comment on above: Take by mouth as nee ded. apixaban 5 mg oral tablet (7 sources) Factor Xa Inhibitor Start: 10-27-2022 take 1 tablet by mouth twice daily apixaban (ELIQUIS) 5 mg tab(s) Take 5 mg by mouth two times a day. 10/27/2022 Active ascorbic acid 500 mg oral tablet (11 sources) Vitamin C take 1 tablet by [...] Drop (FLURESS) Calcium Carbonate / vitamin D3 (8 sources) CALCIUM CARBONATE/VITAMIN D3 (CALCIUM + D ORAL) Take by mouth. Active CALCIUM CARBONAT E/VITAMIN D3 (CALCIUM + D ORAL) Take by mouth. 0 Active Comment on above: Take by mouth. furosemide 40 mg oral tablet (8 sources) Loop Diuretic Start: 01-28-2024 End: 03-18-2024 LASIX 40 mg tablet Take 1 tablet by mouth as needed (for weight gain/ fluid retention). 03/18/2024 Active lisinopril 5 mg oral tablet (7 sources) Angiotensin Converting Enzyme Inhibitor Start: 12-30-2023 take 1 tablet by mouth once daily lisinopril (ZESTRIL) 5 mg tablet Take 5 mg by mouth once daily. 12/30/2023 Active magnesium oxide 400 mg oral tablet (10 sources) take 1 tablet by mouth once daily magnesium oxide 400 mg magnesium tab Take 400 mg by mouth once daily. Active Magnesium 500 MG CAPS TAKE 1 CAPSULE Daily Quantity: 0 Refills: 0 Ordered: 24-Oct-2022 DO Active 24 hr metoprolol succinate 50 mg extended release oral tablet (6 sources) beta-Adrenergic Preeti Start: 12-25-2023 take 1 tablet by mouth once daily metoprolol succinate ER (TOPROL XL) 50 mg 24 hr tablet Take 50 mg by mouth once daily. 12/25/2023 Active Multivitamins-[place] als-Lutein (CENTRUM SILVER) tab (7 sources) take 1 tablet by mouth once daily Multivitamins-[place] rals-Lutein (CENTRUM SILVER) tab Take 1 tablet by mouth once daily. Active phenylephrine hydrochloride 25 mg/ml ophthalmic solution (1 source) alpha-1 Adrenergic Agonist Start: 11-14-2021 End: 11-14-2021 PHENYLephrine 2.5 % 1 Drop (AK-DILATE, LUZMARIA-SYNEPHRINE) potassium chloride 10 meq extended release oral tablet (8 sources) Start: 03-18-2024 take 1 tablet by mouth once daily as needed KLOR-CON 10 10 mEq tablet Take 1 tablet by mouth as needed (on days that you take lasix). 03/18/2024 Active Start: 02-01-2024 End: 03-18-2024 take 1 tablet by mouth twice daily KLOR-CON 10 10 mEq tablet Take 10 mEq by mouth two times a day. 02/01/2024 03/18/2024 Discontinued proparacaine hydrochloride 5 mg/ml ophthalmic solution (1 source) Local Anesthetic Start: 11-14-2021 End: 11-14-2021 proparacaine 0.5 % 1 Drop (ALCAINE) selenium 200 mcg cap (8 sources) selenium 200 mcg cap Take by mouth. Active selenium 200 mcg cap Take by mouth. 0 Active Comment on above: Take by mouth. 125 ml sodium chloride 9 mg/ml prefilled syringe (7 sources) Start: 02-04-2024 End: 02-03-2025 sodium chloride 0.9 %, flush, (BD POSIFLUSH) syringe Inject 2-10 mL intravenously as directed. For Echo procedure 10 mL 02/04/2024 02/03/2025 Active tropicamide 10 mg/ml ophthalmic solution (1 source) Anticholinergic Start: 11-14-2021 End: 11-14-2021 tropicamide 1 % 1 Drop (MYDRIACYL) ZNOX/PYG/PUMPK/SAW PAL/PROST (MEN'S SAW PALMETTO FORMULA ORAL) (8 sources) ZNOX/PYG/PUMPK/S AW PAL/PROST (MEN'S SAW PALMETTO FORMULA ORAL) Take by mouth. Active ZNOX/PYG/PUMPK/S AW PAL/PROST (MEN'S SAW PALMETTO FORMULA ORAL) Take by mouth. 0 Active Comment on above: Take by mouth. Completed/Discontinued Medications Medication Drug Class(es) Dates Sig (Normalized) Sig (Original) Benzocaine (1 source) Standardized Chemical Allergen Start: 02-09-2024 End: 02-09-2024 TOPICAL, X (OR/PROCEDURE) PRN, Starting on Thu02/09/24 at 1334, Until Thu02/09/24 at 1334, Intraprocedure Calcium (3 sources) Phosphate Binder, Calcium Calcium + D TABS TAKE 1 TABLET DAILY. Quantity: 0 Refills: 0 Ordered: 24-Oct-2022 DO Active Centrum Silver TABS (3 sources) Centrum Silver T ABS TAKE 1 TABLET DAILY. Quantity: 0 Refills: 0 Ordered: 24-Oct-2022 DO Active 24 hr dilTIAZem hydrochloride 180 mg extended release oral capsule (4 sources) Calcium Channel Preeti Start: 11-10-2015 End: 02-04-2024 diltiazem CD (CARDIZEM [...] 1,000 mg by javier th once daily. 1 ml fentaNYL 0.05 mg/ml injection (1 source) Opioid Agonist Start: 02-09-2024 End: 02-09-2024 INTRAVENOUS, X (OR/PROCEDURE) PRN, Starting on Thu02/09/24 at 1337, Until Thu02/09/24 at 1414, Intraprocedure FLAXSEED OIL (OMEGA 3 ORAL) (2 sources) [...] DAILY. Quantity: 90 Refills: 3 Ordered: 24-Oct-2022 Avelina Rasmussen MD Start : 24-Oct-2022 Active new start lidocaine hydrochloride 0.02 mg/mg topical gel (1 source) Antiarrhythmic, Amide Local Anesthetic Start: End: X (OR/PROCEDURE) PRN, Starting on Thu02/09/24 at 1334, Until Thu02/09/24 at 1334, Intraprocedure losartan potassium 100 mg oral tablet (4 sources) Angiotensin 2 Receptor Preeti Start: 016 End: take 1 tablet by mouth once daily losartan (COZAAR) 100 mg tablet Take 100 mg by mouth once daily. 11/10/2015 02/04/2024 Discontinued Comment on above: Take 100 mg by mouth once daily. 5 ml midazolam 1 mg/ml injection (1 source) Benzodiazepine Start: End: INTRAVENOUS, X (OR/PROCEDURE) PRN, Starting on Thu02/09/24 at 1337, Until Thu02/09/24 at 1414, Intraprocedure rivaroxaban 20 mg oral tablet (3 sources) Factor Xa Inhibitor Start: take 1 tablet by mouth once daily Xarelto 20 MG Oral Tablet Take 1 tablet daily Quantity: 90 Refills: 3 Ordered: 04-Nov-2022 Avelina Rasmussen MD Start : 24-Oct-2022 Active [place] 450 MG Oral Capsule (3 sources) [place] 450 MG Oral Capsule TAKE DIRECTED. Quantity: 0 Refills: 0 Ordered: 24-Oct-2022 DO Active [place] Fruit 450 mg cap (1 source) Start: End: take 1 capsule by mouth once daily [place] Fruit 450 mg cap Take 450 mg by mouth once daily. 05/24/2020 02/04/2024 Discontinued Selenium 200 MCG Oral Capsule (3 sources) Selenium 200 MCG Oral Capsule TAKE DIRECTED. Quantity: 0 Refills: 0 Ordered: 24-Oct-2022 DO Active vitamin b6 200 mg oral tablet (2 sources) End: take 1 tablet by mouth once daily Pyridoxine HCl 200 mg tablet Take 200 mg by mouth once daily. 02/04/2024 Discontinued Comment on above: Take 200 mg by mouth once daily. Problems Active Problems Problem Classification Problem Date Documented Da te Episodic/Chronic Cardiac dysrhythmias (10 sources) Persistent atrial fibrillation; Translations: [Atrial fibrillation] Onset: 4 Resolved: 3 02-04-2024 Chronic Cardiac dysrhythmias (1 source) Tachycardia-induced cardiomyopathy; Translations: [Tachycardia, unspecified] 02-04-2024 Episodic Congestive heart failure; nonhypertensive (4 sources) Unspecified diastolic (congestive) heart failure; Translations: [...] source) Long-term current use of anticoagulant; Translations: [termination clerk (current) use of anticoagulants] 02-04-2024 Episodic Other [...] respiratory abnormalities] Episodic Other lower respiratory disease (3 sources) Shortness of breath; Translations: [Shortness of [...] but less than 30; Translations: [Overweight] Episodic Shanell-; endo-; and myocarditis; cardiomyopathy (except that caused by tuberculosis or sexually transmitted disease) (1 source) Cardiomyopathy; Translations: [Other cardiomyopathies] 02-04-2024 Chronic Residual codes; unclassified (1 source) History of partial resection of colon; Translations: [Acquired absence of other specified parts of digestive tract] 02-04-2024 Episodic Residual codes; unclassified (1 source) Edema, unspecified; Translations: [Edema, unspecified type] Onset: 4 Episodic Retinal detachments; defects; vascular occlusion; and retinopathy (1 source) Bilateral epiretinal membrane of eyes; 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, bilateral] Chronic Thyroid disorders (1 source) Hypothyroidism; Translations: [Other specified hypothyroidism] 02-04-2024 Chronic Unclassified (1 source) Encounter for preprocedural laboratory examination; Translations: [Encounter for preprocedural laboratory examination] Onset: 3 Unclassified (7 sources) Other persistent atrial fibrillation; Translations: [Other persistent atrial fibrillation (Multi)] Onset: 3 Past or Other Problems Problem Classification Problem Date Documented Da te Episodic/Chronic Diabetes mellitus without complication (1 source) Other abnormal glucose; Translations: [OTHER ABNORMAL GLUCOSE] Onset: 02-21-2022 Episodic Other aftercare (4 sources) Other usp (current) drug therapy; Translations: [Other termination clerk (current) drug therapy] Onset: 03-18-2023 Episodic Other [...] Test Name Value Interpretation Reference Range Facility [facility] 03-18-2024 CNOV Office Visit (CARD C HF [facility]) BRANDI RAHMAN ([id number]) 1940 M Date Time Provider Department 03/18/24 10:00 AM COMPA CORCORAN CHF [facility] During your visit today, we recorded the following information about you: Pulse Blood pressure Weight Height 69/minute 147/86 70.9 kg 1.651 m Compa Corcoran APRN.NEGATIVE RETOUCHER 03/18/2024 4:06 PM [facility] SECTION OF HEART FAILURE and CARDIAC TRANSPLANT MEDICINE OUTPATIENT VISIT DATE 03/18/2024 PRIMARY CARE PHYSICIAN: Samantha Recio [address] [place] [address] PRIMARY HEART FAILURE SPORTS UMPIRE: Dr. Mendoza CHIEF COMPLAINT: Follow-up HISTORY OF PRESENT ILLNESS: Brandi Sha PEREZ is a 83 year old male seen today by me for follow-up. He was last seen in heart failure clinic with Dr. Mendoza on 02/04/2024 and the following recommendations were made: Increase ToproL XL to 50 mg am and 25 mg pm x 2 days, then increase to 50 mg twice daily Arrange SHARON cadioversion as soon as possible Labs today and consider change potassium to spironolactone Followup in one month Since the last visit: -He underwent successful SHARON/DCCV on 02/09/2024. -His Toprol was stopped on 02/17/2024 for HR 40-50's. -His Lasix was stopped on 03/16/2024 for BP 70/40's with blurred vision/ dehydration. SOB: no Fatigue: improved Orthopnea: no PND: no Bendopnea: no Edema: right ankles ;stable Chest Pain: no Palpitations: no Dizziness/Lightheadedne ss: with exertion; sometimes Syncope: no Appetite: improved, denies nausea, denies early satiety Dietary restrictions: doesn't eat a lot of salt Fluid Restriction: under 64 ounces Regular Exercise/ Activity: working outside and around the house Performs daily weights: a few times per week PAST MEDICAL HISTORY Diagnosis Date Atrial fibrillation (HCC) Carpal tunnel syndrome Cataract OU Congestive heart failure (HCC) Dyslipidemia GI bleed Heart disease Hypertension Hypothyroidism Kidney stone Retinal tear 06/08/2000 OS PAST SURGICAL HISTORY Procedure Laterality Date PAST SURGICAL HISTORY OF 06/2000 Left eye Retinal detchement repair (laser) PAST SURGICAL HISTORY OF 8 Tonsils PAST SURGICAL HISTORY OF 1967 Left pat Tend. PAST SURGICAL HISTORY OF 1975 Repair Left tricept tendent PAST SURGICAL HISTORY OF 2007 coloencetomy PAST SURGICAL HISTORY OF 2014 repair carpal tunnel LT PAST SURGICAL HISTORY OF repair carpal tunnel RT XCAPSL CTRC RMVL INSJ IO LENS PROSTH W/O ECP Left 06/2000 Cataract Extraction with PC IOL Parshour XCAPSL CTRC RMVL INSJ IO LENS PROSTH W/O ECP Right 09/2003 Cataract Extraction with PC IOL MARIVEL SOCIAL [...] Take 40 mg by mouth once daily. Multivitamins-Minerals- Lutein (CENTRUM SILVER) tab Take 1 tablet by mouth once daily. magnesium oxide 400 mg magnesium tab Take 400 mg by mouth once daily. KLOR-CON 10 10 mEq tablet Take 10 mEq by mouth two times a day. lisinopril (ZESTRIL) 5 mg tablet Take 5 mg by mouth once daily. sodium chloride 0.9 %, flush, (BD POSIFLUSH) syringe Inject 2-10 mL intravenously as directed. For Echo procedure ascorbic acid, vitamin C, (VITAMIN C) 500 mg tablet Take 500 mg by mouth once daily. acetaminophen (TYLENOL ARTHRITIS ORAL) Take by mouth as needed. CALCIUM CARBONATE/VITAMIN D3 (CALCIUM + D ORAL) Take by mouth. ZNOX/PYG/PUMPK/SAW PAL/PROST (MEN'S SAW PALMETTO FORMULA ORAL) Take by mouth. selenium 200 mcg cap Take by mouth. REVIEW OF SYSTEMS: See HPI PHYSICAL EXAMINATION: BP 147/86 Pulse 69 Ht 165.1 cm (5' 5 ) Wt 70.9 kg (156 lb 4.8 oz) SpO2 97% BMI 26.01 kg/m? Last weight on home scale: 150 (down 20 lbs past few months) Last 10 Encounter Wt Readings: Date: Wt: 03/18/2024 70.9 kg (156 lb 4.8 oz) 02/04/2024 71.9 kg (158 lb 8 oz)- last visit General appearance: No acute distress, conversant Neurologic/Psychiatric: Alert and oriented to time, place and person; mood pleasant. Gait grossly normal HEENT: PERRLA and EOM's intact, neck supple, no carotid bruits, grossly normal thyroid, normal hearing Neck: JVP normal. Trachea midline, full range of motion Heart: Rate regular with premature beats. S1, S2 present. No gallop. No Rub. (more content not included)... Normal [facility]20[facility]) BRANDI RAHMAN ([id number]) 1940 M Date Time Provider Department 02/16/24 KENDRA MENDOZA CARD [facility] During your visit today, we recorded the following information about you: Cesar Womack 02/16/2024 12:41 PM Signed February 16, 2024 Name: Brandi Rahman JR Patient Contact Number: [phone] (home) [phone] (work) Date of last office visit: 02/04/2024 Reason For Call: patient calling in stating that his Bp has been low and his HR has been in the 40s since his cardioversion. He stated that he has had no energy and cut down on his metoprolol 1x a day and still on lisinopril,lasix, and eliquis. Please advise Physician: Kendra Mendoza MD Patient was informed that non-urgent calls may be returned within the next three business days. Yes Marily Day 02/16/2024 3:08 PM Signed Spoke with: Katalina (Spouse) Dr. Mendoza advised the following: - Stop Metoprolol for 2 days to get it out of his system - No EKG/no additional testing - Patient/spouse will call in on either or Thu this week to let us know what BP/HR is after stopping metoprolol Patient's spouse verbalized understanding. Marily Lange 02/19/2024 6:24 PM Signed Patient called in with vitals. VITALS (OFF METOPROLOL FOR 3 DAYS): 02/16 - BP 110/66, HR 55 (MORNING); 127/74, HR 56 (EVENING) 02/17 - BP 120/72, HR 67 (AFTERNOON) 02/18 - BP 102/63, HR [address] MENDOZA OF TODAY, NO BETA PREETI ANYMORE. Called to advise patient. Patient verbalized understanding. Allergies As of Date: 02/16/2024 (No Known Allergies) Date Reviewed: 02/09/2024 Reviewed by: Christiana Sneed RN - Fully Assessed Prescriptions as of 02/19/2024 - apixaban (ELIQUIS) 5 mg tab(s) Take 5 mg by mouth two times a day. - LASIX 40 mg tablet Take 40 mg by mouth once daily. - metoprolol succinate ER (TOPROL XL) 50 mg 24 hr tablet Take 50 mg by mouth once daily. - Multivitamins-Minerals- Lutein (CENTRUM SILVER) tab Take 1 tablet by mouth once daily. - magnesium oxide 400 mg magnesium tab Take 400 mg by mouth once daily. - KLOR-CON 10 10 mEq tablet Take 10 mEq by mouth two times a day. - lisinopril (ZESTRIL) 5 mg tablet Take 5 mg by mouth once daily. - sodium chloride 0.9 %, flush, (BD POSIFLUSH) syringe Inject 2-10 mL intravenously as directed. For Echo procedure - ascorbic acid, vitamin C, (VITAMIN C) 500 mg tablet Take 500 mg by mouth once daily. - acetaminophen (TYLENOL ARTHRITIS ORAL) Take by mouth as needed. - CALCIUM CARBONATE/VITAMIN D3 (CALCIUM + D ORAL) Take by mouth. - ZNOX/PYG/PUMPK/SAW PAL/PROST (MEN'S SAW PALMETTO FORMULA ORAL) Take by mouth. - selenium 200 mcg cap Take by mouth. Problem List As Of Date: 02/16/2024 (None) Encounter Status:Closed by KEVIN ZHU on 02/16/24 [facility] ANES POSTPROC EVALon 024 ANES POSTPROC EVAL HNO ID: [id number] Author: SHAKEEL FALL MD Service: ? Author Type: Anesthesiologist Type: Anesthesia Postprocedure Evaluation Filed: 02/09/2024 17:58 Note Text: POST ANESTHESIA EVALUATION NOTE : 1940 Procedure Summary Date: 02/09/24 Room / Location: [address] [facility] Anesthesia Start: 1541 Anesthesia Stop: 1552 Procedure: 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 EXTERNAL ELECTIVE Diagnosis: Persistent atrial fibrillation (HCC) (Persistent atrial fibrillation (HCC) [I48.19]) Surgeons: Rd Tineo MD Responsible Provider: Shakeel Fall MD Anesthesia Type: general ASA Status: 3 Anesthesia Type: general Last Vitals Vitals Value Taken Time BP 109/61 02/09/24 1631 Temp 36 02/09/24 1757 Pulse 157 02/09/24 1640 Resp 20 02/09/24 1630 SpO2 92 % 02/09/24 1640 Vitals shown include unfiled device data. Post Anesthesia Patient Status Patient Evaluation: PACU. PACU/ICU Patient Condition: stable. Anticipated Disposition: phase 2 then home. Neurological Status: aware and responsive. Pulmonary Status: breathing comfortably on room air Airway Control: returned to baseline unsupported. Cardiovascular Status: stable. Pain Management: clinically adequate Postoperative Hydration: acceptable. Intraoperative Events: no significant anesthesia events Post Operative Nausea/Vomiting Status: no significant post operative nausea or vomiting Recommendation: continue current plan of care. Anesthesia Observations No Documentation SIGNATURE: Shakeel Zee MD PATIENT NAME: Brandi Rahman JR DATE: February 09, 2024 TIME: 5:57 PM CSN: [id number] Normal [facility] ANES PRE-OPon 02-09-2024 ANES PRE-OP HNO ID: [id number] Author: SHAKEEL FALL MD Service: ? Author Type: Anesthesiologist Type: Anesthesia Preprocedure Evaluation Filed: 02/09/2024 15:45 Note Text: ANESTHESIOLOGY DAY OF SURGERY NOTE : 1940 Procedure Information Anesthesia Start Date/Time: 02/09/24 1541 Procedure: 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 EXTERNAL ELECTIVE Location: [address] Surgeons: Rd Tineo MD Estimated body mass index is 26.38 kg/m? as calculated from the following: Height as of 02/04/24: 165.1 cm (5' 5 ). Weight as of 02/04/24: 71.9 kg (158 lb 8 oz). Most recent hematocrit and potassium results: Potassium 4.8 02/09/2024 Relevant Problems No relevant active problems I - PHYSICAL EVALUATION AIRWAY Patient intubated: No. Tracheostomy tube not present Mallampati: I. TM distance: >3 FB. Neck ROM: full ROM without neurological symptoms. Mouth opening: adequate. Short neck: no. Thick neck: no Rosa present: no Lip Bite Test: I Microretrognathia/Micro nagthia/Recessed Chin: No DENTAL Dental findings: missing tooth/teeth. Additional exam findings: no II - ANESTHESIA PLAN ASA Score: 3 Anesthetic Plan: general Airway type: supplemental O2 The patient is not a current smoker. NPO Status: adequate Anesthetic plan additional comments: HTN CHF HLP . Beta Preeti Monitoring Plan Monitoring plan: standard ASA. Post Procedure Analgesic Plan Postoperative analgesic plan: multimodal analgesia. Informed Consent Anesthetic risks, benefits, alternatives, personnel and consent discussed: yes. Patient / Responsible Democrat agrees to proceed: yes Patient / Surrogate agrees to blood products: Yes Significant changes in the patient condition since the History and Physical, not otherwise documented in primary service progress note: no. Potential Anesthesia issues that may suggest increased risk of complications or contraindication to planned procedure: none. Vitals Value Taken Time BP 120/82 02/09/24 1521 Pulse 73 02/09/24 1521 Resp 18 02/09/24 1521 Temp SpO2 96 % 02/09/24 1521 No current facility-administered medications on file as of 02/09/2024. Outpatient Medications as of 02/09/2024 Medication Sig apixaban (ELIQUIS) 5 mg tab(s) Take 5 mg by mouth two times a day. LASIX 40 mg tablet Take 40 mg by mouth once daily. metoprolol succinate ER (TOPROL XL) 50 mg 24 hr tablet Take 50 mg by mouth once daily. Multivitamins-Minerals- Lutein (CENTRUM SILVER) tab Take 1 tablet by mouth once daily. magnesium oxide 400 mg magnesium tab Take 400 mg by mouth once daily. KLOR-CON 10 10 mEq tablet Take 10 mEq by mouth two times a day. lisinopril (ZESTRIL) 5 mg tablet Take 5 mg by mouth once daily. sodium chloride 0.9 %, flush, (BD POSIFLUSH) syringe Inject 2-10 mL intravenously as directed. For Echo procedure ascorbic acid, vitamin C, (VITAMIN C) 500 mg tablet Take 500 mg by mouth once daily. acetaminophen (TYLENOL ARTHRITIS ORAL) Take by mouth as needed. CALCIUM CARBONATE/VITAMIN D3 (CALCIUM + D ORAL) Take by mouth. ZNOX/PYG/PUMPK/SAW PAL/PROST (MEN'S SAW PALMETTO FORMULA ORAL) Take by mouth. selenium 200 mcg cap Take by mouth. I have interviewed and examined the patient. I have reviewed the medical record and/or the pre-anesthesia evaluation, pertinent labs, and test results. This contains updated information obtained within 48 hours of Surgery/Procedure. SIGNATURE: Shakeel Zee MD PATIENT NAME: Brandi Rahman JR DATE: February 09, 2024 TIME: 3:44 PM CSN: [id number] Normal [facility] Basic metabolic 2000 panelon 02-09-2024 Anion gap [Moles/Vol] 11 mmol/L Normal 8-15 [facility] Comment on above: Order Comment: Speci men Type: BLOOD SPECIMENOrdering Facility: [facility] Address: [address] [place] [address] Performed By: #### 2 4321-2 ####[facility] LABCLIA [id number] [place] [address] [place] Calcium [Mass/Vol] 9.8 mg/dL Normal 8.5-10.2 [facility] Comment on above: Order Comment: Speci men Type: BLOOD SPECIMENOrdering Facility: [facility] Address: [address] [place] [address] Performed By: #### 2 4321-2 ####[facility] LABCLIA [id number] [place] [address] [place] Chloride [Moles/Vol] 102 mmol/L Normal 98-107 [facility] Comment on above: Order Comment: Speci men Type: BLOOD SPECIMENOrdering Facility: [facility] Address: [address] [place] [address] Performed By: #### 2 4321-2 ####[facility] LABCLIA [id number] [place] [address] [place] CO2 [Moles/Vol] 28 mmol/L Normal 22-30 [facility] Comment on above: Order Comment: Speci men Type: BLOOD SPECIMENOrdering Facility: [facility] Address: [address] [place] [address] Performed By: #### 2 4321-2 ####[facility] LABCLIA [id number] [place] [address] [place] Creatinine [Mass/Vol] 1.45 mg/dL High 0.73-1.22 [facility] Comment on above: Order Comment: Marilyn melendez Type: BLOOD SPECIMENOrdering Facility: [facility] Address: [address] [place] [address] Performed By: #### 2 4321-2 ####[facility] LABIA [id number] [place] [address] [place] Creatinine and Glomerular filtration rate.predicted panel (S/P/Bld) 48 mL/min/1.73m??? Low >=60 [facility] Comment on above: Order Comment: Marilyn melendez Type: BLOOD SPECIMENOrdering Facility: [facility] Address: [address] [place] [address] Result Comment: Erica mated Glomerular Filtration Rate (eGFR) is calculated using the 2020 CKD-EPI creatinine equation. This equation utilizes serum creatinine, sex, and age as parameters. The creatinine assay has traceable calibration to isotope dilution-mass spectrometry. Refer to KDIGO guidelines for clinical interpretation. In patients with unstable renal function, e.g. those with acute kidney injury, the eGFR may not accurately reflect actual GFR. Performed By: #### 2 4321-2 ####[facility] LABCLIA [id number] [place] [address] [place] Glucose [Mass/Vol] 92 mg/dL Normal 74-99 [facility] Comment on above: Order Comment: Marilyn melendez Type: BLOOD SPECIMENOrdering Facility: [facility] Address: [address] [place] [address] Result Comment: The [place] Diabetes Association (ADA) provides guidance for cutoff values for fasting glucose and random glucose. The ADA defines fasting as no caloric intake for at least 8 hours. Fasting plasma glucose results between 100 to 125 mg/dL indicate increased risk for diabetes (prediabetes). Fasting plasma glucose results greater than or equal to 126 mg/dL meet the criteria for diagnosis of diabetes. In the absence of unequivocal hyperglycemia, results should be confirmed by repeat testing. In a patient with classic symptoms of hyperglycemia or hyperglycemic crisis, random plasma glucose results greater than or equal to 200 mg/dL meet the criteria for diagnosis of diabetes. Reference: Standards of Medical Care in Diabetes 2016, [place] [employer] Association. Diabetes Care. 2016.39(Suppl 1). Performed By: #### 2 4321-2 ####[facility] LABCLIA [id number] [place] [address] [place] Potassium [Moles/Vol] 4.8 mmol/L Normal 3.7-5.1 [facility] Comment on above: Order Comment: Marilyn melendez Type: BLOOD SPECIMENOrdering Facility: [facility] Address: [address] [place] [address] Performed By: #### 2 4321-2 ####[facility] LABIA [id number] [place] [address] [place] Sodium [Moles/Vol] 141 mmol/L Normal 136-144 [facility] Comment on above: Order Comment: Marilyn melendez Type: BLOOD SPECIMENOrdering Facility: [facility] Address: [address] [place] [address] Performed By: #### 2 4321-2 ####[facility] LABIA [id number] [place] [address] [place] Urea nitrogen [Mass/Vol] 36 mg/dL High 9-24 [facility] Comment on above: Order Comment: Marilyn melendez Type: BLOOD SPECIMENOrdering Facility: [facility] Address: [address] [place] [address] Performed By: #### 2 4321-2 ####[facility] LABIA [id number] [place] [address] [place] CNOVon 02-09-2024 CNOV Office Visit (CAFLMN ) BRANDI RAHMAN ([id number]) 1940 M Date Time Provider Department 02/09/24 12:30 PM TRANSESOPHAGEAL ECHO CARD MAINCAFLMN During your visit today, we recorded the following information about you: Temperature Pulse Respiration Blood pressure 97.7 degrees 79/minute 16/minute 115/76 Nelly Wong, DARRIAN 02/09/2024 2:41 PM Signed AMBULATORY PATIENT EDUCATION TOPIC: SHARON READINESS TO LEARN COGNITIVE ABILITY: Alert and oriented MOTIVATION TO LEARN: Eager FAMILY SUPPORT: Unable to assess - Family not present INSTRUCTION PROVIDED TO: Patient PATIENT LEARNS BEST BY: Individual Instruction Verbal Instruction FACTORS AFFECTING LEARNING: None PHYSICAL LIMITATIONS AFFECTING LEARNING: None LEARNING RESPONSE DIAGNOSIS: DCCV METHOD OF INSTRUCTION: Individual instruction Verbal instruction PATIENT / FAMILY RESPONSE: Verbalizes understanding of: POST-PROCEDURE INSTRUCTIONS-Correct actions to take to reduce post procedure complications PRE-PROCEDURE INSTRUCTIONS-Correct action to take to follow pre-procedure instructions FOLLOW-UP PLAN: Complete - No need for follow-up SUPPLEMENTAL MATERIAL: Post SHARON instructions given Post sedation instructions given REFERRAL (RECOMMENDATION): None Electronically Signed By Nelly Wong RN In Department: CARDIOLOGY Referring Provider: KENDRA MENDOZA [[id number]] Allergies As of Date: 02/09/2024 (No Known Allergies) Date Reviewed: 02/09/2024 Reviewed by: Nelly Wong, DARRIAN - Fully Assessed Visit Diagnosis:Paroxysmal atrial fibrillation (HCC) [I48.0] Order(s):ECHO TRANSESOPHAGEAL [[id number]] Order #: [id number]: 1 [] benzocaine 20% (TOPEX)Disp: Rfl: [] lidocaine urojet 2 % topical gel (GLYDO)Disp: Rfl: [] fentaNYL 50 mcg/mL injection (SUBLIMAZE)Disp: Rfl: [] midazolam (PF) injection (VERSED)Disp: Rfl: Prescriptions as of 02/09/2024 - apixaban (ELIQUIS) 5 mg tab(s) Take 5 mg by mouth two times a day. - LASIX 40 mg tablet Take 40 mg by mouth once daily. - metoprolol succinate ER (TOPROL XL) 50 mg 24 hr tablet Take 50 mg by mouth once daily. - Multivitamins-Minerals- Lutein (CENTRUM SILVER) tab Take 1 tablet by mouth once daily. - magnesium oxide 400 mg magnesium tab Take 400 mg by mouth once daily. - KLOR-CON 10 10 mEq tablet Take 10 mEq by mouth two times a day. - lisinopril (ZESTRIL) 5 mg tablet Take 5 mg by mouth once daily. - sodium chloride 0.9 %, flush, (BD POSIFLUSH) syringe Inject 2-10 mL intravenously as directed. For Echo procedure - ascorbic acid, vitamin C, (VITAMIN C) 500 mg tablet Take 500 mg by mouth once daily. - acetaminophen (TYLENOL ARTHRITIS ORAL) Take by mouth as needed. - CALCIUM CARBONATE/VITAMIN D3 (CALCIUM + D ORAL) Take by mouth. - ZNOX/PYG/PUMPK/SAW PAL/PROST (MEN'S SAW PALMETTO FORMULA ORAL) Take by mouth. - selenium 200 mcg cap Take by mouth. Problem List As Of Date: 02/09/2024 (None) Prescriptions ordered this encounter Disp Refills Start End BENZOCAINE 20% TOPICAL SPRAY 02/09/2024 02/09/2024 Route: TOPICAL LIDOCAINE 2 % MUCOSAL JELLY IN APPLI* 02/09/2024 02/09/2024 FENTANYL (PF) 50 MCG/ML INJECTION SO* 02/09/2024 02/09/2024 Route: INTRAVENOUS MIDAZOLAM (PF) 1 MG/ML INJECTION KIRSTY* 02/09/2024 02/09/2024 Route: INTRAVENOUS Encounter Status:Closed by SUNNI PERALES on 02/09/24 Normal [facility] ECG COMPLETEon 02-09-2024 ECG COMPLETE Ventricular Rate : 4 6 BPM Atrial Rate : 46 BPM P-R Interval : 356 ms QRS Duration : 108 ms Q-T Interval : 470 ms QTC Calculation(Bazett) : 411 ms Calculated P [place] : 75 degrees Calculated R [place] : 49 degrees Calculated T [place] : 74 degrees SINUS BRADYCARDIA WITH 1ST DEGREE AV BLOCK WITH PREMATURE ATRIAL COMPLEXES OTHERWISE NORMAL ECG Confirmed by MD PITA, PhD, WALDEMAR ([id number]) on 03/05/2024 1:18:52 PM NAME : BRANDI RAHMAN PID : [id number] : 1940 Gender : Male Race : ORD : [id number] Procedure Date : Feb 09 2024 16:02:03 Edit Date : Mar 05 2024 13:18:58 Diagnosis: SINUS BRADYCARDIA WITH 1ST DEGREE AV BLOCK WITH PREMATURE ATRIAL COMPLEXES OTHERWISE NORMAL ECG Confirmed by MD PITA, PhD, WALDEMAR ([id number]) on 03/05/2024 1:18:52 PM Test Reason : Post-OP Location : : [facility] Overread By : MD PITA, PhD,WALDEMAR Edited By : MD PITA, PhD,WALDEMAR Referred By : , Acquired by : [id number], Normal [facility] ECG COMPLETE Ventricular Rate : 1 07 BPM Atrial Rate : 357 BPM QRS Duration : 108 ms Q-T Interval : 354 ms QTC Calculation(Bazett) : 472 ms Calculated R [place] : 50 degrees Calculated T [place] : 87 degrees ATRIAL FLUTTER WITH VARIABLE A-V BLOCK NONSPECIFIC ST AND T WAVE ABNORMALITY ABNORMAL ECG Confirmed by MD CHANG HEBA ([id number]) on 02/15/2024 4:48:05 PM NAME : BRANDI RAHMAN PID : [id number] : 1940 Gender : Male Race : ORD : [id number] Procedure Date : Feb 09 2024 11:27:27 Edit Date : Feb 15 2024 16:48:07 Diagnosis: ATRIAL FLUTTER WITH VARIABLE A-V BLOCK NONSPECIFIC ST AND T WAVE ABNORMALITY ABNORMAL ECG Confirmed by MD CHANG HEBA ([id number]) on 02/15/2024 4:48:05 PM Test Reason : Pre-OP Location : : [place] [address] Overread By : MD CHANG HEBA Edited By : MD CHANG HEBA Referred By : , Acquired by : [id number], Normal [facility] ECHO TRANSESOPHAGEALon 02-08 CONCLUSIONS: - Exam indication: Pre Cardioversion, Pre AF Ablation - The left ventricle is dilated. Left ventricular systolic function is moderately decreased. EF = 35 5% (visual est.) - The right ventricle is dilated. Right ventricular systolic function is moderately to severely decreased. - The left atrial cavity is severely dilated. - The right atrial cavity is dilated. 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 - There is restricted opening of the right coronary cusp without aortic stenosis. - There is no patent foramen ovale as detected by agitated saline contrast. -No URIAH thrombus - The patient has not had a prior CC echocardiographic exam for comparison. * * * Final * * * [facility] Echocardi[facility] Report: Transesophageal Echo [facility] [id number] Date of service: 02/09/2024 1:23:25 PM DRIVER Ordering physician: KENDRA MENDOZA Indication: Pre Cardioversion, Pre AF Ablation Technologist: fellow Fellow: Dev Crowley MD Interpreting physician: Asad Pressley MD PATIENT: Name: MR. BRANDI RAHMAN JR : 1940 Age: 83 years Gender: M Height: 165.10 cm BSA: 1.82 m Weight: 71.90 kg BMI: 26.4 kg/m Pre Post Heart rate 122 bpm 101 bpm Blood pressure 113/90 mmHg 96/82 mmHg O2 saturation 96 % 98 % Color Doppler was utilized to interrogate the cardiac valves assessed and spectral Doppler was utilized to determine the flow velocities and pressure gradients reported in this exam. Medications Total Dose Versed 2.50 mg Fentanyl 62.50 mcg Agitated Saline 10.00 ml Exam performed under moderate sedation with continuous ECG, pulse oximetry and cardiopulmonary monitoring by nursing, overseen by the performing physician(s), for an intraservice time of 31 min. (Stop Time: 14:20) No specimens collected. No blood loss. The interpreting physician was present for and actively participated in the SHARON procedure. MEASUREMENTS: Value Indexed Normal LVOT stroke volume 32 ml 18 ml/m Ejection Fraction 35 % (visual est.) EF > 52 FINDINGS: LEFT VENTRICLE The left ventricle is dilated. Left ventricular systolic function is moderately decreased. RIGHT VENTRICLE The right ventricle is dilated. Right ventricular systolic function is moderately to severely decreased. LEFT ATRIUM The left atrial cavity is severely dilated. There is spontaneous echo contrast noted. The left atrial appendage is not multilobed. There is no left atrial appendage thrombus. RIGHT ATRIUM The right atrial cavity is dilated. 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 There is a anteriorly directed regurgitant jet originating along the entire aspect of the coaptation line and a regurgitant jet originating along the medial aspect of the coaptation line. There is moderate thickening of the anterior and posterior mitral leaflets. There is prolapse of the P3 and A3 segments of the posterior mitral leaflet. 3D echocardiographic multi-planar reconstruction of the mitral valve was performed to assess anatomy and function. TRICUSPID VALVE The tricuspid valve leaflets are structurally normal. There is mild (1+) tricuspid valve regurgitation. AORTIC VALVE There is trace (trace - 1+) aortic valve regurgitation. Tricuspid aortic valve. There is moderate thickening of the right aortic cusp. The peak gradient is 5 mmHg (peak velocity = 110.0 cm/s). The mean gradient is 2 mmHg. The LVOT mean velocity is 0.3 cm/s. The LVOT diameter is 2.0 cm. The aortic VTI is 20.0 cm. The dimensionless valve index is 0.50. AV area is 1.59 cm (0.87 cm /m ) by continuity, VTI. The LVOT stroke volume index is 18 ml/m . PULMONIC VALVE The pulmonic valve cusps are structurally normal. There is no pulmonic valve regurgitation. AORTA The visualized aorta is normal in size. There is mild atheroma in the mid arch. There is mild calcification in the mid descending thoracic. INTERATRIAL SEPTUM The interatrial septum is normal. There is no patent foramen ovale as detected by agitated saline contrast. There is no evidence of intracardiac shunting. [facility] ECHO TRANSESOPHAGEAL Echocardiography Report: Transesophageal Echo [facility] J1-5 Date of service: 02/09/2024 1:23:25 PM DRIVER Ordering physician: KENDRA MENDOZA Indication: Pre Cardioversion, Pre AF Ablation Technologist: fellow Fellow: Dev Crowley MD Interpreting physician: Asad Pressley MD PATIENT: Name: MR. BRANDI RAHMAN JR : 1940 Age: 83 years Gender: M Height: 165.10 cm BSA: 1.82 m Weight: 71.90 kg BMI: 26.4 kg/m Pre Post Heart rate 122 bpm 101 bpm Blood pressure 113/90 mmHg 96/82 mmHg O2 saturation 96 % 98 % Color Doppler was utilized to interrogate the cardiac valves assessed and spectral Doppler was utilized to determine the flow velocities and pressure gradients reported in this exam. Medications Total Dose Versed 2.50 mg Fentanyl 62.50 mcg Agitated Saline 10.00 ml Exam performed under moderate sedation with continuous ECG, pulse oximetry and cardiopulmonary monitoring by nursing, overseen by the performing physician(s), for an intraservice time of 31 min. (Stop Time: 14:20) No specimens collected. No blood loss. The interpreting physician was present for and actively participated in the SHARON procedure. MEASUREMENTS: Value Indexed Normal LVOT stroke volume 32 ml 18 ml/m Ejection Fraction 35 % (visual est.) EF > 52 FINDINGS: LEFT VENTRICLE The left ventricle is dilated. Left ventricular systolic function is moderately decreased. RIGHT VENTRICLE The right ventricle is dilated. Right ventricular systolic function is moderately to severely decreased. LEFT ATRIUM The left atrial cavity is severely dilated. There is spontaneous echo contrast noted. The left atrial appendage is not multilobed. There is no left atrial appendage thrombus. RIGHT ATRIUM The right atrial cavity is dilated. 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 There is a anteriorly directed regurgitant jet originating along the entire aspect of the coaptation line and a regurgitant jet originating along the medial aspect of the coaptation line. There is moderate thickening of the anterior and posterior mitral leaflets. There is prolapse of the P3 and A3 segments of the posterior mitral leaflet. 3D echocardiographic multi-planar reconstruction of the mitral valve was performed to assess anatomy and function. TRICUSPID VALVE The tricuspid valve leaflets are structurally normal. There is mild (1+) tricuspid valve regurgitation. AORTIC VALVE There is trace (trace - 1+) aortic valve regurgitation. Tricuspid aortic valve. There is moderate thickening of the right aortic cusp. The peak gradient is 5 mmHg (peak velocity = 110.0 cm/s). The mean gradient is 2 mmHg. The LVOT mean velocity is 0.3 cm/s. The LVOT diameter is 2.0 cm. The aortic VTI is 20.0 cm. The dimensionless valve index is 0.50. AV area is 1.59 cm (0.87 cm /m ) by continuity, VTI. The LVOT stroke volume index is 18 ml/m . PULMONIC VALVE The pulmonic valve cusps are structurally normal. There is no pulmonic valve regurgitation. AORTA The visualized aorta is normal in size. There is mild atheroma in the mid arch. There is mild calcification in the mid descending thoracic. INTERATRIAL SEPTUM The interatrial septum is normal. There is no patent foramen ovale as detected by agitated saline contrast. There is no evidence of intracardiac shunting. CONCLUSIONS: - Exam indication: Pre Cardioversion, Pre AF Ablation - The left ventricle is dilated. Left ventricular systolic function is moderately decreased. EF = 35 5% (visual est.) - The right ventricle is dilated. Right ventricular systolic function is moderately to severely decreased. - The left atrial cavity is severely dilated. - The right atrial cavity is dilated. 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 - There is restricted opening of the right coronary cusp without aortic stenosis. - There is no patent foramen ovale as detected by agitated saline contrast. -No URIAH thrombus - The patient has not had a prior CC echocardiographic exam for comparison. * * * Final * * * [facility] : [id number] Normal [facility] NURSING PROGon 02-09-2024 NURSING PROG HNO ID: [id number] Author: NELLY WONG RN Service: ? Author Type: Registered Nurse Type: Nursing Progress Note Filed: 02/09/2024 14:41 Note Text: AMBULATORY PATIENT EDUCATION TOPIC: SHARON READINESS TO LEARN COGNITIVE ABILITY: Alert and oriented MOTIVATION TO LEARN: Eager FAMILY SUPPORT: Unable to assess - Family not present INSTRUCTION PROVIDED TO: Patient PATIENT LEARNS BEST BY: Individual Instruction Verbal Instruction FACTORS AFFECTING LEARNING: None PHYSICAL LIMITATIONS AFFECTING LEARNING: None LEARNING RESPONSE DIAGNOSIS: DCCV METHOD OF INSTRUCTION: Individual instruction Verbal instruction PATIENT / FAMILY RESPONSE: Verbalizes understanding of: POST-PROCEDURE INSTRUCTIONS-Correct actions to take to reduce post procedure complications PRE-PROCEDURE INSTRUCTIONS-Correct action to take to follow pre-procedure instructions FOLLOW-UP PLAN: Complete - No need for follow-up SUPPLEMENTAL MATERIAL: Post SHARON instructions given Post sedation instructions given REFERRAL (RECOMMENDATION): None Electronically Signed By Nelly Wong RN In Department: [facility]EPS[facility] BRANDI RAHMAN ([id number]) 1940 M Date Time Provider Department 02/05/24 KENDRA MENDOZA EPSWI During your visit today, we recorded the following information about you: Shawanda Vargas RN 02/05/2024 8:[address] Mendoza requesting SHARON/DCC for 02/09/24. SHARON noted to be scheduled 02/08. DCC scheduled as requested. Patient's accepting date of 02/08. Shawanda Vargas RN Allergies As of Date: 02/05/2024 (No Known Allergies) Date Reviewed: 02/04/2024 Reviewed by: Katelyn Stevenson RN - Fully Assessed Reason for Visit: Appointment [[id number]] Cmt: EPS- SHARON/DCC Prescriptions as of 02/05/2024 - apixaban (ELIQUIS) 5 mg tab(s) Take 5 mg by mouth two times a day. - LASIX 40 mg tablet Take 40 mg by mouth once daily. - metoprolol succinate ER (TOPROL XL) 50 mg 24 hr tablet Take 50 mg by mouth once daily. - Multivitamins-Minerals- Lutein (CENTRUM SILVER) tab Take 1 tablet by mouth once daily. - magnesium oxide 400 mg magnesium tab Take 400 mg by mouth once daily. - KLOR-CON 10 10 mEq tablet Take 10 mEq by mouth two times a day. - lisinopril (ZESTRIL) 5 mg tablet Take 5 mg by mouth once daily. - sodium chloride 0.9 %, flush, (BD POSIFLUSH) syringe Inject 2-10 mL intravenously as directed. For Echo procedure - ascorbic acid, vitamin C, (VITAMIN C) 500 mg tablet Take 500 mg by mouth once daily. - acetaminophen (TYLENOL ARTHRITIS ORAL) Take by mouth as needed. - CALCIUM CARBONATE/VITAMIN D3 (CALCIUM + D ORAL) Take by mouth. - ZNOX/PYG/PUMPK/SAW PAL/PROST (MEN'S SAW PALMETTO FORMULA ORAL) Take by mouth. - selenium 200 mcg cap Take by mouth. Problem List As Of Date: 02/05/2024 (None) Encounter Status:Closed by SHAWANDA VARGAS on 02/05/24 [facility] CNOVon 02-04-2024 CNOV Office Visit (CARD C HF RHONA) BRANDI RAHMAN ([id number]) 1940 [place] Date Time Provider Department 02/04/24 4:00 PM KENDRA MENDOZA CARD CHF RHONA During your visit today, we recorded the following information about you: Pulse Blood pressure Weight Height 88/minute 135/94 71.9 kg 1.651 m Kendra Mendoza MD 03/16/2024 6:00 PM Addendum Heart and Vascular [facility] SECTION OF HEART FAILURE and CARDIAC TRANSPLANT MEDICINE OUTPATIENT VISIT DATE February 04, 2024 OUTPATIENT VISIT TYPE Consultation PRIMARY CARE PHYSICIAN: Jailyn Milan MD [address] [place] [phone] CHIEF COMPLAINT: HF NURSING INTAKE (Patient?s concerns and/or recent hospitalizations/ER visits): Brandi Rahman JR is a 83 y/o male coming from [place], [place] for a cardiac evaluation PMHx of [...] 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 He saw Dr. Yeager in [place] who did not address shortness of breath [...] Take 50 mg by mouth once daily. Multivitamins-Minerals- Lutein (CENTRUM SILVER) tab Take 1 tablet by [...] D ORAL) Take by mouth. ZNOX/PYG/PUMPK/SAW PAL/PROST (M (more content not included)... Normal [facility] ECG COMPLETEon 02-04-2024 ECG COMPLETE Ventricular Rate : 9 0 BPM QRS Duration : 116 ms Q-T Interval : 370 ms QTC Calculation(Bazett) : 452 ms Calculated R [place] : 41 degrees Calculated T [place] : -20 degrees ATRIAL FIBRILLATION WITH PREMATURE VENTRICULAR COMPLEXES NONSPECIFIC ST AND T WAVE ABNORMALITY ABNORMAL ECG Confirmed by ASAD PRESSLEY MD ([id number]) on 02/17/2024 9:49:18 PM NAME : BRANDI RAHMAN PID : [id number] : 1940 Gender : Male Race : ORD : [id number] Procedure Date : Feb 04 2024 14:39:43 Edit Date : Feb 17 2024 21:49:20 Diagnosis: ATRIAL FIBRILLATION WITH PREMATURE VENTRICULAR COMPLEXES NONSPECIFIC ST AND T WAVE ABNORMALITY ABNORMAL ECG Confirmed by ASAD PRESSLEY MD ([id number]) on 02/17/2024 9:49:18 PM Test Reason : Location : 314 : J14 Overread By : ASAD PRESSLEY MD Edited By : ASAD PRESSLEY MD Referred By : OSMAN RODRIGUEZ Acquired by : ALEJANDRO MURPHY [facility] [id number] 02-04-2024 ECG01 Ventricular Rate : 1 11 BPM QRS Duration : 100 ms Q-T Interval : 348 ms QTC Calculation(Bazett) : 473 ms Calculated R [place] : 26 degrees Calculated T [place] : -61 degrees ATRIAL FIBRILLATION WITH RAPID VENTRICULAR RESPONSE WITH PREMATURE VENTRICULAR COMPLEXES ABNORMAL ECG Confirmed by ASAD PRESSLEY MD ([id number]) on 02/18/2024 8:28:49 PM NAME : BRANDI RAHMAN PID : [id number] : 1940 Gender : Male Race : ORD : Procedure Date : Feb 04 2024 16:52:38 Edit Date : Feb 18 2024 20:28:52 Diagnosis: ATRIAL FIBRILLATION WITH RAPID VENTRICULAR RESPONSE WITH PREMATURE VENTRICULAR COMPLEXES ABNORMAL ECG Confirmed by ASAD PRESSLEY MD ([id number]) on 02/18/2024 8:28:49 PM Test Reason : Location : 568 : J34NS Overread By : ASAD PRESSLEY MD Edited By : ASAD PRESSLEY MD Referred By : , Acquired by : [facility]le [facility] [facility] Office Visit (Cardiology)on 12-01-2022 Follow-up visit Diagnoses/Problems [...] a smoker Tobacco Use Screening; Status:Complete; Done: [id number] Patient Instructions Please bring all medicines, vitamins, [...] 500 MG CAPSTAKE 1 CAPSULE Daily Saw [place] 450 MG Oral CapsuleTAKE DIRECTED. Selenium 200 [...] Vital Signs Recorded: 01Dec2022 01:03PMRecorded: 01Dec2022 12:48PM [id number], RUE, Sitting Aucemxwri2194, RUE, Sitting Heart Rate76, L Radial Height5 ft 6 in Pfblou112 lb BMI Wiyqwgixyt99.41 kg/m2 BSA Calculated1.89 Tobacco Useb) No Falls Screening (Age 18+)a) No falls within the (more content not included)... Normal PlayPhone Tobacco Screening.on 023 Fall risk assessment a) No falls within the last year [facility] 250 DO Work Phone: Tobacco use status [facility] b) No [facility] 250 DO Work Phone: [facility] echo transesophageal SHARON on 10-31-2022 [facility] echo transesophageal SHARON [facility] Main [place] [address] [place] [address] Echocardiogram Signed Patient: Brandi Rahman MR#: [id number] 9 : 1940 Acct:[id number] Age/Sex: 82 / M ADM Date: 10/31/22 Loc: [place] Room: Type: [facility] Attending Dr: Avelina Rasmussen MD Ordering Provider: Avelina Rasmussen MD, [facility] Date of Service: 10/31/22/ ECH/ECH echo transesophageal SHARON: DYSPNEA, MR, A-FIB. Copies to: Avelina Rasmussen MD, [facility] Reason For Study: DYSPNEA, MR, [...] TAMY Performed At: 10/31/22 1247 Signed By: Avelina Rasmussen MD, [facility] 10/31/22 1605 Normal [facility] Basic Metabolic Panelon 10-07 Anion gap [Moles/Vol] 9.3 mmol/L Normal 6.0-15.0 [facility] Comment on above: Performed By: #### B MP, CBC #### [facility] [address] Calcium [Mass/Vol] 9.1 mg/dL Normal 8.6-10.[address] [facility] Comment on above: Result Comment: PERF ORMED BY: [place] [address] PATHOLOGIST [employer]IVE LILLIAN TILLMAN M.D. Performed By: #### B MP, CBC #### [facility] [address] [place] [address] [place] Chloride [Moles/Vol] 101 mmol/L Normal 98-107 [facility] Comment on above: Performed By: #### B MP, CBC #### [facility] [address] [place] [id number] [place] CO2 [Moles/Vol] 34.3 mmol/L High 21.0-31.0 [facility] Comment on above: Performed By: #### B MP, CBC #### [facility] [address] [place] [id number] [place] Creatinine [Mass/Vol] 1.30 mg/dL Normal 0.70-1.30 [facility] Comment on above: Performed By: #### B MP, CBC #### [facility] [address] [place] [address] [place] GFR/1.73 sq M.predicted MDRD (S/P/Bld) [Vol rate/Area] 54.849 mL/min/{1.73_m2} Normal [facility] Comment on above: Performed By: #### B MP, CBC #### [facility] [address] [place] [address] [place] Glucose [Mass/Vol] 89 mg/dL Normal 70-[address] [facility] Comment on above: Result Comment: [place] Glucose Reference Range is dependent on time and content of last meal. Glucose of more than 200 mg/dL in a nonstressed, ambulatory subject supports the diagnosis of Diabetes Mellitus. ADA recommended reference range Performed By: #### B MP, CBC #### [facility] [address] [place] [id number] [place] Potassium [Moles/Vol] 4.6 mmol/L Normal 3.5-5.1 [facility] Comment on above: Performed By: #### B MP, CBC #### [facility] [address] [place] [id number] [place] Sodium [Moles/Vol] 140 mmol/L Normal 136-[address] [facility] Comment on above: Performed By: #### B MP, CBC #### [facility] [address] [place] [id number] [place] Urea nitrogen [Mass/Vol] 29 mg/dL High 7-25 [facility] Comment on above: Performed By: #### B MP, CBC #### [address] Complete Blood Count Auto Di ffon 10-27-2022 Basophils (Bld) [#/Vol] 0.1 10*3/uL Normal 0.0-0.2 [facility] Comment on above: Result Comment: PERF ORMED BY: [place] [address] PATHOLOGIST [employer] REPRESENTATIVE LILLIAN TILLMAN M.D. Performed By: #### B MP, CBC #### [address] Basophils/100 WBC (Bld) 1.1 % Normal . [facility] Comment on above: Performed By: #### B MP, CBC #### [address] Eosinophils (Bld) [#/Vol] 0.2 10*3/uL Normal 0.0-0.45 [facility] Comment on above: Performed By: #### B MP, CBC #### [address] Eosinophils/100 WBC (Bld) 3.2 % Normal . [facility] Comment on above: Performed By: #### B MP, CBC #### [address] Erythrocyte distribution width (RBC) [Ratio] 14.4 % Normal 12.0-14.8 [facility] Comment on above: Performed By: #### B MP, CBC #### [address] Hematocrit (Bld) [Volume fraction] 43.0 % Normal 38.8-50.0 [facility] Comment on above: Performed By: #### B MP, CBC #### [address] Hemoglobin (Bld) [Mass/Vol] 14.4 g/dL Normal 13.0-17.0 [facility] Comment on above: Performed By: #### B MP, CBC #### [address] [place] [address] [place] Lymphocytes (Bld) [#/Vol] 1.0 10*3/uL Normal 1.00-4.8 [facility] Comment on above: Performed By: #### B MP, CBC #### [facility] [address] [place] [address] [place] Lymphocytes/100 WBC (Bld) 21.1 % Normal . [facility] Comment on above: Performed By: #### B MP, CBC #### [facility] [address] [place] [address] [place] MCH (RBC) [Entitic mass] 33.8 pg Normal 27.5-35.2 [facility] Comment on above: Performed By: #### B MP, CBC #### [address] MCV (RBC) [Entitic vol] 100.8 fL Normal 83.5-101 [facility] Comment on above: Performed By: #### B MP, CBC #### [address] Mean Corpuscular HGB Conc 33.5 g/dL Normal 32.5-35.6 [facility] Comment on above: Performed By: #### B MP, CBC #### [place] [address] [place] Monocytes (Bld) [#/Vol] 0.6 10*3/uL Normal 0.0-0.8 [facility] Comment on above: Performed By: #### B MP, CBC #### [place] [address] [place] Monocytes/100 WBC (Bld) 11.8 % Normal . [facility] Comment on above: Performed By: #### B MP, CBC #### [facility] [address] [place] [address] [place] Neutrophils (Bld) [#/Vol] 2.9 10*3/uL Normal 1.8-7.7 [facility] Comment on above: Performed By: #### B MP, CBC #### [place] [address] Neutrophils/100 WBC (Bld) 62.8 % Normal . [facility] Comment on above: Performed By: #### B MP, CBC #### [address] NRBC% 0.1 /100{WBC} Normal 0-0.5 [facility] Comment on above: Performed By: #### B MP, CBC #### [address] Platelet mean volume (Bld) [Entitic vol] 8.0 fL Normal 6.6-10.1 [facility] Comment on above: Performed By: #### B MP, CBC #### [address] Platelets (Bld) [#/Vol] 213 10*3/uL Normal 150-450 [facility] Comment on above: Performed By: #### B MP, CBC #### [address] RBC (Bld) [#/Vol] 4.27 10*6/uL Normal 3.90-5.60 [facility] Comment on above: Performed By: #### B MP, CBC #### [address] WBC (Bld) [#/Vol] 4.7 10*3/uL Normal 4.1-10.[address] [facility] Comment on above: Performed By: #### B FABIO, CBC #### [address] Office Visit (Cardiology)on 10-24-2022 Follow-up visit [...] can help you lose weight.; Status:Complete; Done: 24Oct2022 PMH: Paroxysmal atrial fibrillation Start: Indapamide 1.25 MG Oral Tablet; TAKE 1 TABLET ONCE DAILY SocHx: Never a smoker Tobacco Use Screening; Status:Complete; Done: 24Oct2022 Unlinked Stop: Eliquis 2.5 MG Oral Tablet [...] time. Had an echocardiogram done recently at [facility] which I have the report reviewed. It [...] Medication NameInst (more content not included)... Normal PlayPhone Tobacco Screening.on 023 Adult depression screening assessment No [facility] [facility] 250 DO Work Phone: Fall risk assessment a) No falls within the last year -[facility] [facility] 250 DO Work Phone: Tobacco use status [facility] b) No -[facility] 250 DO Work Phone: ECHOCARDIO M/2D COMPLETEon 0 09-16-2022 ECHOCARDIO M/2D COMPLETE Patient: BRANDI RAHMAN Exam Date: 09/16/2022 : 1940 Gender:M Ordering : DR SAMANTHA RECIO . Admission #: [id number] Family : Order #: [id number] CLICK HERE TO VIEW EXAM ECHOCARDIOGRAM REPORT [...] M.D. on 09/16/2022 at 20:23 Normal [facility] BNPon 09-09-2022 Natriuretic peptide B (Bld) [Mass/Vol] 154.0 pg/mL Normal <=1,800.0 [facility] Comment on above: Performed By: #### T SH, T7, CMP, BNP ####[facility] [address] [place] [address]DrRodolfo Gibson CBC AUTO DIFFon 09-09-2022 BASO # 0.0 103/ul Normal 0.0-0.1 [facility] Comment on above: Performed By: #### C BC ####[facility] [address] [place], [place] [address]DrRodolfo Gibson Basophils/100 WBC (Bld) 0.6 % Normal 0.2-2.0 [facility] Comment on above: Performed By: #### C BC ####[facility] [address] [place], [place] [address]DrRodolfo Gibson EO # 0.2 103/ul Normal 0.0-0.7 [facility] Comment on above: Performed By: #### C BC ####[facility] Dev[address]fcx[address] [place], [place] [address]DrRodolfo Gibson Eosinophils/100 WBC (Bld) 4.1 % Normal 0.9-7.0 [facility] Comment on above: Performed By: #### C BC ####[facility] T[address] [place], [place] [address]DrRodolfo Gibson Erythrocyte distribution width (RBC) [Ratio] 13.5 % Normal 11.0-15.0 [facility] Comment on above: Performed By: #### C BC ####[facility] [address] [place], [place] [address]DrRodolfo Gibson Hematocrit (Bld) [Volume fraction] 42.9 % Normal 42.0-54.0 [facility] Comment on above: Performed By: #### C BC ####[facility] W[address] [place], [place] [address]Dr. Elver Gibson Hemoglobin (Bld) [Mass/Vol] 14.5 g/dL Normal 14.0-18.0 [facility] Comment on above: Performed By: #### C BC ####[facility] [address] [place] [address]Dr. Elver Gibson IG # 0.01 10e3/ul Normal 0.00-0.03 [facility] Comment on above: Performed By: #### C BC ####[facility] [address] [place], [place] [address]Dr. Elver Gibson IG % 0.2 % Normal 0.0-0.5 [facility] Comment on above: Performed By: #### C BC ####[facility] [address] [place], [place] [address]DrRodolfo Gibson LYMPH # 1.2 103/ul Normal 1.2-3.8 [facility] Comment on above: Performed By: #### C BC ####[facility] [address] [place], [place] [address]Dr. Elver Gibson Lymphocytes/100 WBC (Bld) 21.8 % Normal 20.5-60.0 [facility] Comment on above: Performed By: #### C BC ####[facility] [address] [place], [place] [address]DrRodolfo Gibson MANUAL DIFF REQ NO Normal [facility] Comment on above: Performed By: #### C BC ####[facility] [address] [place], [place] [address]Dr. Elver Gibson MCH (RBC) [Entitic mass] 33.4 pg Normal 25.9-34.0 [facility] Comment on above: Performed By: #### C BC ####[facility] [address] [place], [place] [address]Dr. Elver Gibson MCHC (RBC) [Mass/Vol] 33.8 g/dL Normal 29.9-35.2 [facility] Comment on above: Performed By: #### C BC ####[facility] [address] [place], [place] [address]DrRodolfo Gibson MCV (RBC) [Entitic vol] 98.8 fL Critically high 80.0-94.0 [facility] Comment on above: Performed By: #### C BC ####[facility] [address] [place] [address] Elver Gibson MONO # 0.7 103/ul Normal 0.3-0.8 [facility] Comment on above: Performed By: #### C BC ####[facility] R[address]uc[address]vr[address] [place], [place] [address]DrRodolfo Elver Gibson Monocytes/100 WBC (Bld) 13.3 % Critically high 1.7-12.0 [facility] Comment on above: Performed By: #### C BC ####[facility] [address] [place], [place] [address]DrRodolfo Elver Gibson NEUT # 3.3 103/ul Normal 1.4-6.5 [facility] Comment on above: Performed By: #### C BC ####[facility] [address] [place], [place] [address]DrRodolfo Elver Gibson Neutrophils/100 WBC (Bld) 60.0 % Normal 43.0-75.0 [facility] Comment on above: Performed By: #### C BC ####[facility] [address] [place], [place] [address]DrRodolfo Elver Gibson Platelet mean volume (Bld) [Entitic vol] 9.5 fL Normal 9.5-13.5 [facility] Comment on above: Performed By: #### C BC ####[facility] [address] [place], [place] [address]DrRodolfo Elver Arthur PLT 197 103/ul Normal 150-450 [facility] Comment on above: Performed By: #### C BC ####[facility] [address] [place], [place] [address]DrRodolfo Elver Arthur RBC 4.34 106/ul Critically low 4.70-6.10 [facility] Comment on above: Performed By: #### C BC ####[facility] Ant[address]fr[address] [place], [place] [address]DrRodolfo Gibson WBC 5.4 103/ul Normal 4.0-11.0 [facility] Comment on above: Performed By: #### C BC ####[facility] [address] [place] [address]Dr. Elver Gibson FREE THYROXINE INDEX T7on FTI 2.21 Normal 1.30-4.50 [facility] Comment on above: Performed By: #### T SH, T7, CMP, BNP ####[facility] [address] [place] [address]Dr. Elver Gibson T3U 35.0 % Normal 33.0-40.0 [facility] Comment on above: Performed By: #### T SH, T7, CMP, BNP ####[facility] [address]ax[address] [place] [address]Dr. Elver Gibson T4 [Mass/Vol] 6.30 ug/dL Normal 4.50-12.10 [facility] Comment on above: Performed By: #### T SH, T7, CMP, BNP ####[facility] [address] [place] [address]Dr. Elver Gibson PROF 14(COMP METB)on 023 Albumin [Mass/Vol] 3.8 g/dL Normal 3.4-5.0 [facility] Comment on above: Performed By: #### T SH, T7, CMP, BNP ####[facility] [address] [place] [address]Dr. Elver Gibson Albumin/Globulin [Mass ratio] 1.1 {ratio} Normal [facility] Comment on above: Performed By: #### T SH, T7, CMP, BNP ####[facility] [address] [place] [address]Dr. Elver Gibson ALP [Catalytic activity/Vol] 74 U/L Normal 46-116 [facility] Comment on above: Performed By: #### T SH, T7, CMP, BNP ####[facility] [address] [place] [address]Dr. Elver Gibson ALT [Catalytic activity/Vol] 27 U/L Normal 16-63 [facility] Comment on above: Performed By: #### T SH, T7, CMP, BNP ####[facility] [address] [place] [address]Dr. Elver Gibson Anion gap [Moles/Vol] 10.8 mmol/L Normal Th [facility] Comment on above: Performed By: #### T SH, T7, CMP, BNP ####[facility] [address] [place] [address]Dr. Elver Gibson AST [Catalytic activity/Vol] 30 U/L Normal 15-37 [facility] Comment on above: Performed By: #### T SH, T7, CMP, BNP ####[facility] [address] [place], [place] [address]Dr. Elver Gibson Bilirubin [Mass/Vol] 0.7 mg/dL Normal 0.2-1.0 [facility] Comment on above: Performed By: #### T SH, T7, CMP, BNP ####[facility] [address] [place], [place] [address]Dr. Elver Gibson Calcium [Mass/Vol] 9.3 mg/dL Normal 8.5-10.1 [facility] Comment on above: Performed By: #### T SH, T7, CMP, BNP ####[facility] [address] [place], [place] [address]Dr. Elver Gibson Chloride [Moles/Vol] 104 mmol/L Normal 98-107 [facility] Comment on above: Performed By: #### T SH, T7, CMP, BNP ####[facility] [address]mc[address] [place], [place] [address]Dr. Elver Gibson CO2 [Moles/Vol] 31.9 mmol/L Normal 21.0-32.0 [facility] Comment on above: Performed By: #### T SH, T7, CMP, BNP ####[facility] [address] [place], [place] [address]Dr. Elver Gibson Creatinine [Mass/Vol] 1.19 mg/dL Normal 0.70-1.30 [facility] Comment on above: Performed By: #### T SH, T7, CMP, BNP ####[facility] [address] [place] [address]Dr. Elver Gibson EGFR-AF DANISH >60 Normal >=60 [facility] Comment on above: Performed By: #### T SH, T7, CMP, BNP ####[facility] [address] [place] [address]Dr. Elver Gibson EGFR-NON AF DANISH 59 mL/min/1.73m2 Critically low >=60 [facility] Comment on above: Performed By: #### T SH, T7, CMP, BNP ####[facility] [address] [place] [address]Dr. Elver Gibson Globulin (S) [Mass/Vol] 3.5 g/dL Normal [facility] Comment on above: Performed By: #### T SH, T7, CMP, BNP ####[facility] [address] [place] [address]Dr. Elver Gibson Glucose [Mass/Vol] 124 mg/dL Critically high 74-106 [facility] Comment on above: Performed By: #### T SH, T7, CMP, BNP ####[facility] [address] [place] [address]Dr. Elver Gibson Potassium [Moles/Vol] 4.7 mmol/L Normal 3.5-5.1 [facility] Comment on above: Performed By: #### T SH, T7, CMP, BNP ####[facility] [address] [place] [address]Dr. Elver Gibson Protein [Mass/Vol] 7.3 g/dL Normal 6.4-8.2 [facility] Comment on above: Performed By: #### T SH, T7, CMP, BNP ####[facility] [address] [place] [address]Dr. Elver Gibson Sodium [Moles/Vol] 142 mmol/L Normal 136-145 [facility] Comment on above: Performed By: #### T SH, T7, CMP, BNP ####[facility] [address] [place] [address]Dr. Elver Gibson Urea nitrogen [Mass/Vol] 27.0 mg/dL Critically high 7.0-18.0 [facility] Comment on above: Performed By: #### T SH, T7, CMP, BNP ####[facility] [address] [place], [place] [address]UzRodolfo Gibson Urea nitrogen/Creatinine [Mass ratio] 22.7 mg/mg Normal [facility] Comment on above: Performed By: #### T SH, T7, CMP, BNP ####[facility] [address] [place], [place] [address]Sl. Elver Gibson TSHon 09-09-2022 TSH 1.455 uIU/mL Normal 0.358-3.740 [facility] Comment on above: Performed By: #### T SH, T7, CMP, BNP ####[facility] [address] [place], [place] [address]Oz. Elver Gibson XR CHEST 2 Von 09-09-2022 [...] VAN VUONG Date: 2022-09-09 12:48 Normal [facility] INSULINon 02-15-2022 Insulin 11.3 uIU/mL Normal 2.6-24.9 [facility] Comment on above: Performed By: #### I NSULIN #### [facility] [address] [place] [address] [address] Elver Gibson T4, T3U, FTI LABCORPon 02-15 Free Thyroxine Index 2.1 Normal 1.2-4.9 [facility] Comment on above: Performed By: #### T HYLC #### [facility] [address] [place] [address] [address] Elver Gibson T3 Uptake 30 % Normal 24-39 [facility] Comment on above: Performed By: #### T HYLC #### [facility] [address] [address] [address] Elver Gibson T4 [Mass/Vol] 7.0 ug/dL Normal 4.5-12.0 [facility] Comment on above: Performed By: #### T HYLC #### [facility] [address] [place] [address] Dr. Elver Gibson BNPon 02-14-2022 Natriuretic peptide B (Bld) [Mass/Vol] 229.0 pg/mL Normal <=1,800.0 [facility] Comment on above: Performed By: #### B MACHINIST LINOTYPE, CMP, LIPID, TSH, URIC #### [facility] [address] [place] [address] Dr. Elver Gibson CBC AUTO DIFFon 02-14-2022 BASO # 0.0 103/ul Normal 0.0-0.1 [facility] Comment on above: Performed By: #### C BC ####[facility] [address] [place], [place] [address]Dr. Elver Gibson Basophils/100 WBC (Bld) 0.7 % Normal 0.2-2.0 [facility] Comment on above: Performed By: #### C BC ####[facility] [address] [place], [place] [address]Dr. Elver Gibson EO # 0.2 103/ul Normal 0.0-0.7 [facility] Comment on above: Performed By: #### C BC ####[facility] [address] [place], [place] [address]Dr. Elver Gibson Eosinophils/100 WBC (Bld) 3.9 % Normal 0.9-7.0 [facility] Comment on above: Performed By: #### C BC ####[facility] [address] [place], [place] [address]DrRodolfo Gibson Erythrocyte distribution width (RBC) [Ratio] 13.2 % Normal 11.0-15.0 [facility] Comment on above: Performed By: #### C BC ####[facility] [address] [place], [place] [address]Dr. Elver Gibson Hematocrit (Bld) [Volume fraction] 42.9 % Normal 42.0-54.0 [facility] Comment on above: Performed By: #### C BC ####[facility] [address] [place] [address]Dr. Elver Gibson Hemoglobin (Bld) [Mass/Vol] 14.2 g/dL Normal 14.0-18.0 [facility] Comment on above: Performed By: #### C BC ####[facility] [address] [place], [place] [address]Dr. Elver Gibson IG # 0.01 10e3/ul Normal 0.00-0.03 [facility] Comment on above: Performed By: #### C BC ####[facility] [address] [place], [place] [address]Dr. Elver Gibson IG % 0.2 % Normal 0.0-0.5 [facility] Comment on above: Performed By: #### C BC ####[facility] [address] [place], [place] [address]Dr. Elver Gibson LYMPH # 1.4 103/ul Normal 1.2-3.8 [facility] Comment on above: Performed By: #### C BC ####[facility] [address] [place], [place] [address]DrRodolfo Marianneyemi Gibson Lymphocytes/100 WBC (Bld) 24.0 % Normal 20.5-60.0 [facility] Comment on above: Performed By: #### C BC ####[facility] [address] [place], [place] [address]DrRodolfo Gibson MANUAL DIFF REQ NO Normal [facility] Comment on above: Performed By: #### C BC ####[facility] [address] [place], [place] [address]Dr. Elver Gibson MCH (RBC) [Entitic mass] 33.3 pg Normal 25.9-34.0 [facility] Comment on above: Performed By: #### C BC ####[facility] [address] [place], [place] [address]Dr. Elver Gibson MCHC (RBC) [Mass/Vol] 33.1 g/dL Normal 29.9-35.2 [facility] Comment on above: Performed By: #### C BC ####[facility] [address] [place], [place] [address]DrRodolfo Gibson MCV (RBC) [Entitic vol] 100.7 fL Critically high 80.0-94.0 [facility] Comment on above: Performed By: #### C BC ####[facility] [address] [place], [place] [address]DrRodolfo Gibson MONO # 0.7 103/ul Normal 0.3-0.8 [facility] Comment on above: Performed By: #### C BC ####[facility] [address]pr[address] [place], [place] [address]DrRodolfo Gibson Monocytes/100 WBC (Bld) 12.7 % Critically high 1.7-12.0 [facility] Comment on above: Performed By: #### C BC ####[facility] [address] [place], [place] [address]DrRodolfo Gibson NEUT # 3.3 103/ul Normal 1.4-6.5 [facility] Comment on above: Performed By: #### C BC ####[facility] [address] [place], [place] [address]DrRodolfo Gibson Neutrophils/100 WBC (Bld) 58.5 % Normal 43.0-75.0 [facility] Comment on above: Performed By: #### C BC ####[facility] [id number] [place], [place] [address]DrRodolfo Gibson Platelet mean volume (Bld) [Entitic vol] 9.6 fL Normal 9.5-13.5 [facility] Comment on above: Performed By: #### C BC ####[facility] [address] [place], [place] [address]DrRodolfo Gibson PLT 183 103/ul Normal 150-450 [facility] Comment on above: Performed By: #### C BC ####[facility] [address] [place], [place] [address]DrRodolfo Gibson RBC 4.26 106/ul Critically low 4.70-6.10 [facility] Comment on above: Performed By: #### C BC ####[facility] [address] [place], [place] [address]HjDr. Elver Gibson WBC 5.7 103/ul Normal 4.0-11.0 [facility] Comment on above: Performed By: #### C BC ####[facility] [address] [place], [place] [address]PuDr. Elver Gibson GLYCOHEMOGLOBIN A1Con 2021 ADA RECOMMENDATION SEE BELOW Normal [facility] Comment on above: Result Comment: ADA RECOMMENDED LIMIT 4.0 - 6.0 ADA THERAPEUTIC TARGET < 7.0 ACTION SUGGESTED > 7.0 Performed By: #### A 1C #### [facility] [address] [address] [address] Elver Gibson Glucose [Mass/Vol] 108 mg/dL Normal [facility] Comment on above: Performed By: #### A 1C #### [facility] [address] [address] [address] Elver Gibson HbA1c (Bld) [Mass fraction] 5.4 % Normal 4.5-6.2 [facility] Comment on above: Performed By: #### A 1C #### [facility] [address] [address] [address] Elver Gibson LIPID PROFILEon 02-14-2022 CHOL-HDL RATIO NORM SEE BELOW Normal [facility] Comment on above: Result Comment: 3.3 - 4.4 LOW RISK 4.4 - 7.1 AVERAGE RISK 7.1 - 11.0 MODERATE RISK >11.0 HIGH RISK Performed By: #### B MACHINIST LINOTYPE, CMP, LIPID, TSH, URIC #### [facility] [address] [address] [address] Elver Gibson Cholesterol [Mass/Vol] 174 mg/dL Normal <=200 [facility] Comment on above: Performed By: #### B MACHINIST LINOTYPE, CMP, LIPID, TSH, URIC #### [facility] [address] [address] [address] Elver Gibson Cholesterol in HDL [Mass/Vol] 63 mg/dL Critically high 40-60 [facility] Comment on above: Performed By: #### B MACHINIST LINOTYPE, CMP, LIPID, TSH, URIC #### [facility] [address] [place] [address] Dr. Elver Gibson Cholesterol in LDL [Mass/Vol] 100.4 mg/dL Normal [facility] Comment on above: Performed By: #### B MACHINIST LINOTYPE, CMP, LIPID, TSH, URIC #### [facility] [address] [address] [address] Elver Gibson Cholesterol.total/Cho lesterol in HDL [Mass ratio] 2.8 {ratio} Normal [facility] Comment on above: Performed By: #### B MACHINIST LINOTYPE, CMP, LIPID, TSH, URIC #### [facility] [address] [place] [address] Dr. Elver Gibson HDL NORMAL > or = 60 mg/dl - LO W CARDIOVASCULAR RISK <40 mg/dl - HIGH CARDIOVASCULAR RISK Normal [facility] Comment on above: Performed By: #### B MACHINIST LINOTYPE, CMP, LIPID, TSH, URIC #### [facility] [address] [place] [address] Dr. Elver Gibson LDL CALC NORMAL SEE BELOW Normal [facility] Comment on above: Result Comment: <100 mg/dl OPTIMAL 100 - 129 mg/dl NEAR OR ABOVE OPTIMAL 130 - 159 mg/dl BORDERLINE HIGH 160 - 189 mg/dl HIGH >190 mg/dl VERY HIGH Performed By: #### B MACHINIST LINOTYPE, CMP, LIPID, TSH, URIC #### [facility] [address] [address] [address] Elver Gibson Triglyceride [Mass/Vol] 53 mg/dL Normal <=150 [facility] Comment on above: Performed By: #### B MACHINIST LINOTYPE, CMP, LIPID, TSH, URIC #### [facility] [address] [place] [address] Dr. Elver Gibson VLDL CALC 10.6 mg/dL Normal [facility] Comment on above: Performed By: #### B MACHINIST LINOTYPE, CMP, LIPID, TSH, URIC #### [facility] [address] [place] [address] Dr. Elver Gibson PROF 14(COMP METB)on 022 Albumin [Mass/Vol] 3.7 g/dL Normal 3.4-5.0 [facility] Comment on above: Performed By: #### B MACHINIST LINOTYPE, CMP, LIPID, TSH, URIC #### [facility] [address] [place] [address] Dr. Elver Gibson Albumin/Globulin [Mass ratio] 1.1 {ratio} Normal [facility] Comment on above: Performed By: #### B MACHINIST LINOTYPE, CMP, LIPID, TSH, URIC #### [facility] [address] [place] [address] Dr. Elver Gibson ALP [Catalytic activity/Vol] 64 U/L Normal 46-116 [facility] Comment on above: Performed By: #### B MACHINIST LINOTYPE, CMP, LIPID, TSH, URIC #### [facility] [address] [place] [address] Dr. Elver Gibson ALT [Catalytic activity/Vol] 27 U/L Normal 16-63 [facility] Comment on above: Performed By: #### B MACHINIST LINOTYPE, CMP, LIPID, TSH, URIC #### [facility] [address] [place] [address] Dr. Elver Gibson Anion gap [Moles/Vol] 9.7 mmol/L Normal [facility] Comment on above: Performed By: #### B MACHINIST LINOTYPE, CMP, LIPID, TSH, URIC #### [facility] [address] [place] [address] Dr. Elver Gibson AST [Catalytic activity/Vol] 30 U/L Normal 15-37 [facility] Comment on above: Performed By: #### B MACHINIST LINOTYPE, CMP, LIPID, TSH, URIC #### [facility] [address] [place] [address] Dr. Elver Gibson Bilirubin [Mass/Vol] 0.7 mg/dL Normal 0.2-1.0 [facility] Comment on above: Performed By: #### B MACHINIST LINOTYPE, CMP, LIPID, TSH, URIC #### [facility] [address] [place] [address] Dr. Elver Gibson Calcium [Mass/Vol] 8.9 mg/dL Normal 8.5-10.1 [facility] Comment on above: Performed By: #### B MACHINIST LINOTYPE, CMP, LIPID, TSH, URIC #### [facility] [address] [place] [address] Dr. Elver Gibson Chloride [Moles/Vol] 104 mmol/L Normal 98-107 [facility] Comment on above: Performed By: #### B MACHINIST LINOTYPE, CMP, LIPID, TSH, URIC #### [facility] [address] [place] [address] Dr. Elver Gibson CO2 [Moles/Vol] 31.8 mmol/L Normal 21.0-32.0 [facility] Comment on above: Performed By: #### B MACHINIST LINOTYPE, CMP, LIPID, TSH, URIC #### [facility] [address] [place] [address] Dr. Elver Gibson Creatinine [Mass/Vol] 1.19 mg/dL Normal 0.70-1.30 [facility] Comment on above: Performed By: #### B MACHINIST LINOTYPE, CMP, LIPID, TSH, URIC #### [facility] [address] [place] [address] Dr. Elver Gibson EGFR-AF DANISH >60 Normal >=60 [facility] Comment on above: Performed By: #### B MACHINIST LINOTYPE, CMP, LIPID, TSH, URIC #### [facility] [address] [place] [address] Dr. Elver Gibson EGFR-NON AF DANISH 59 mL/min/1.73m2 Critically low >=60 [facility] Comment on above: Performed By: #### B MACHINIST LINOTYPE, CMP, LIPID, TSH, URIC #### [facility] [address] [place] [address] Dr. Elver Gibson Globulin (S) [Mass/Vol] 3.4 g/dL Normal [facility] Comment on above: Performed By: #### B MACHINIST LINOTYPE, CMP, LIPID, TSH, URIC #### [facility] [address] [place] [address] Dr. Elver Gibson Glucose [Mass/Vol] 97 mg/dL Normal 74-106 [facility] Comment on above: Performed By: #### B MACHINIST LINOTYPE, CMP, LIPID, TSH, URIC #### [facility] [address] [place] [address] Dr. Elver Gibson Potassium [Moles/Vol] 4.5 mmol/L Normal 3.5-5.1 [facility] Comment on above: Performed By: #### B MACHINIST LINOTYPE, CMP, LIPID, TSH, URIC #### [facility] [address] [place] [address] Dr. Elver Gibson Protein [Mass/Vol] 7.1 g/dL Normal 6.4-8.2 [facility] Comment on above: Performed By: #### B MACHINIST LINOTYPE, CMP, LIPID, TSH, URIC #### [facility] [address] [place] [address] Dr. Elver Gibson Sodium [Moles/Vol] 141 mmol/L Normal 136-145 [facility] Comment on above: Performed By: #### B MACHINIST LINOTYPE, CMP, LIPID, TSH, URIC #### [facility] [address] [place] [address] Dr. Elver Gibson Urea nitrogen [Mass/Vol] 31.0 mg/dL Critically high 7.0-18.0 [facility] Comment on above: Performed By: #### B MACHINIST LINOTYPE, CMP, LIPID, TSH, URIC #### [facility] [address] [place] [address] Dr. Elver Gibson Urea nitrogen/Creatinine [Mass ratio] 26.1 mg/mg Normal [facility] Comment on above: Performed By: #### B MACHINIST LINOTYPE, CMP, LIPID, TSH, URIC #### [facility] [address] [place] [address] Dr. Elver Gibson TSHon 02-14-2022 TSH 1.829 uIU/mL Normal 0.358-3.740 [facility] Comment on above: Performed By: #### B MACHINIST LINOTYPE, CMP, LIPID, TSH, URIC #### [facility] [address] [place] [address] Dr. Elver Gibson URIC ACID SERUMon 02-14-2022 Urate [Mass/Vol] 7.1 mg/dL Normal 3.5-7.2 [facility] Comment on above: Performed By: #### B MACHINIST LINOTYPE, CMP, LIPID, TSH, URIC #### [facility] [address] [address] [address] Elver Gibson Ambulatory Clinical Summaryo n 02-28-2020 Ambulatory Clinical Summary {[id number]}CD:[id number] Normal [facility] Ambulatory Clinical Summary {[id number]}CD:[id number] Normal [facility] Patient Educationon 02-28-20 Patient Education Family Medicine Benign Prostatic Hypertrophy [...] severe dizz (more content not included)... Normal [facility] Urology Office/Clinic Noteon 02-28-2020 Urology Office/Clinic Note [...] When Contact Information Arsalan Ryder MD, Roger Agosto [address] [place] [phone]- Additional Instructions: 1yr. w/ KUB and PSA [...] intravenous solution, IV, Once losartan, Oral, Daily [place]-3 Osteo Bi-Flex selenium, Oral, Daily Vitamin C, [...] Negative (09 (more content not included)... Normal [facility] Comment on above: Result Comment: Elec tronically Signed By: Arsalan Ryder MD, Roger Agosto\.br\Date and Time Signed: 02/28/20 10:32 EDT\.br\Electronically Co-Signed By: Marichuy Hernández MA\.br\Date and Time Co-Signed: 02/28/20 10:21 EDT No Panel Information [facility] Vital Signs Date Time Vital Sign Value Performing Clinician Dino beltre 03-18-2024 10:15-0400 Body height 165.1 cm Compa Reay BINDING PRINTER.CN P Work Phone: [facility] 03-18-2024 10:15-0400 Body mass index (BMI) [Ratio] 26.01 kg/m2 Compa Reay BINDING PRINTER.NEGATIVE RETOUCHER Work Phone: [facility] 03-18-2024 10:15-0400 Body weight 70.9 kg Compa Reay BINDING PRINTER.CN P Work Phone: [facility] 03-18-2024 10:15-0400 Diastolic blood pressure 86 mm[Hg] Compa Reay BINDING PRINTER.NEGATIVE RETOUCHER Work Phone: [facility] 03-18-2024 10:15-0400 Heart rate 69 /min Compa Reay BINDING PRINTER.CN P Work Phone: [facility] 03-18-2024 10:15-0400 SaO2% (BldA) [Mass fraction] 97 % Compa Reay BINDING PRINTER.NEGATIVE RETOUCHER Work Phone: [facility] 03-18-2024 10:15-0400 Systolic blood pressure 147 mm[Hg] Compa Reay BINDING PRINTER.NEGATIVE RETOUCHER Work Phone: [facility] 02-09-2024 14:40-0400 Diastolic blood pressure 76 mm[Hg] Transesophageal Main [facility] 02-09-2024 14:40-0400 Heart rate 79 /min Transesophageal [facility] 02-09-2024 14:40-0400 Respiratory rate 16 /min Transesophageal [facility] 02-09-2024 14:40-0400 SaO2% (BldA) [Mass fraction] 91 % Transesophageal [facility] 02-09-2024 14:40-0400 Systolic blood pressure 115 mm[Hg] Transesophageal [facility] 02-09-2024 12:24-0400 Body temperature 97.7 [degF] Transesophageal [facility] 02-04-2024 16:16-0400 Body height 165.1 cm Kendra Mendoza MD Work Phone: [facility] 02-04-2024 16:16-0400 Body mass index (BMI) [Ratio] 26.38 kg/m2 Kendra Mendoza MD Work Phone: [facility] 02-04-2024 16:16-0400 Body weight 71.89 kg Kendra Mendoza MD Work Phone: [facility] 02-04-2024 16:16-0400 Diastolic blood pressure 94 mm[Hg] Kendra Mendoza MD Work Phone: [facility] 02-04-2024 16:16-0400 Heart rate 88 /min Kendra Mendoza MD Work Phone: [facility] 02-04-2024 16:16-0400 SaO2% (BldA) [Mass fraction] 96 % Kendra Mendoza MD Work Phone: [facility] 02-04-2024 16:16-0400 Systolic blood pressure 135 mm[Hg] Kendra Mendoza MD Work Phone: [facility] 01-28-2023 13:33-0400 Body height 167.64 cm Samantha Ziegler Hoy Work Phone: [facility] [employer] 250 DO Work Phone: 01-28-2023 13:33-0400 Body mass index (BMI) [Ratio] 27.92 kg/m2 Samantha Toney Hoy Work Phone: [facility] 250 DO Work Phone: 01-28-2023 13:33-0400 Body surface area Derived from formula 1.88 m2 Samantha M Hoy Work Phone: [facility] 250 DO Work Phone: 01-28-2023 13:33-0400 Body weight 78.47 kg Samantha Toney Hoy Work Phone: [facility] 250 DO Work Phone: 01-28-2023 13:33-0400 Diastolic blood pressure 92 mm[Hg] Samantha M Hoy Work Phone: [facility] 250 DO Work Phone: 01-28-2023 13:33-0400 Diastolic blood pressure 90 mm[Hg] Samantha M Hoy Work Phone: [facility] 250 DO Work Phone: 01-28-2023 13:33-0400 Diastolic blood pressure 80 mm[Hg] Samantha M Hoy Work Phone: [facility] 250 DO Work Phone: 01-28-2023 13:33-0400 Heart rate 84 /min Samantha M Hoy Work Phone: [facility] 250 DO Work Phone: 01-28-2023 13:33-0400 Systolic blood pressure 162 mm[Hg] Samantha M Hoy Work Phone: [facility] 250 DO Work Phone: 01-28-2023 13:33-0400 Systolic blood pressure 152 mm[Hg] Samantha M Hoy Work Phone: [facility] 250 DO Work Phone: 01-28-2023 13:33-0400 Systolic blood pressure 124 mm[Hg] Samantha M Hoy Work Phone: [facility] 250 DO Work Phone: 01-28-2023 13:33-0400 91 1 Samantha M Hoy Work Phone: [facility] 250 DO Work Phone: Comment on above: PULRateLy 01-28-2023 13:33-0400 84 1 Samantha M Hoy Work Phone: [facility] 250 DO Work Phone: Comment on above: PULRateSit 01-28-2023 13:33-0400 90 1 Samantha M Hoy Work Phone: [facility] 250 DO Work Phone: Comment on above: PULRateSt 01-28-2023 13:28-0400 Body height 167.64 cm Samantha M Hoy Work Phone: [facility] 250 DO Work Phone: 01-28-2023 13:28-0400 Body mass index (BMI) [Ratio] 27.92 kg/m2 Samantha M Hoy Work Phone: [facility] 250 DO Work Phone: 01-28-2023 13:28-0400 Body surface area Derived from formula 1.88 m2 Samantha M Hoy Work Phone: [facility] 250 DO Work Phone: 01-28-2023 13:28-0400 Body weight 78.47 kg Samantha M Hoy Work Phone: [facility] 250 DO Work Phone: 01-28-2023 13:28-0400 Diastolic blood pressure 90 mm[Hg] Samantha M Hoy Work Phone: [facility] 250 DO Work Phone: 01-28-2023 13:28-0400 Heart rate 91 /min Samantha M Hoy Work Phone: [facility] 250 DO Work Phone: 01-28-2023 13:28-0400 Systolic blood pressure 152 mm[Hg] Samantha M Hoy Work Phone: [facility] 250 DO Work Phone: 12-01-2022 13:03-0400 Diastolic blood pressure 60 mm[Hg] Samantha M Hoy Work Phone: ON-Njiagreciw-Av nd[place] 250 DO Work Phone: 12-01-2022 13:03-0400 Systolic blood pressure 120 mm[Hg] Samantha M Hoy Work Phone: MQ-Bnbkrvhawv-Pc nd[place]ky 250 DO Work Phone: 12-01-2022 12:48-0400 Body height 167.64 cm Samantha M Hoy Work Phone: YW-Uwcwqywfja-Xi [place] 250 DO Work Phone: 12-01-2022 12:48-0400 Body mass index (BMI) [Ratio] 28.41 kg/m2 Samantha M Hoy Work Phone: CW-Oqcumsipvg-Eb [place] 250 DO Work Phone: 12-01-2022 12:48-0400 Body surface area Derived from formula 1.89 m2 Samantha M Hoy Work Phone: DH-Gwatszmonc-Xz nd[place] 250 DO Work Phone: 12-01-2022 12:48-0400 Body weight 79.83 kg Samantha M Hoy Work Phone: KI-Lzrheqeqfl-Br nd[place]ky 250 DO Work Phone: 12-01-2022 12:48-0400 Diastolic blood pressure 60 mm[Hg] Samantha M Hoy Work Phone: ZY-Geekmmwtax-Zu nd[place] 250 DO Work Phone: 12-01-2022 12:48-0400 Heart rate 76 /min Samantha M Hoy Work Phone: ET-Wouuopdirk-Mb nd[place] 250 DO Work Phone: 12-01-2022 12:48-0400 Systolic blood pressure 94 mm[Hg] Samantha M Hoy Work Phone: CF-Uxyugljyke-Wr [place] 250 DO Work Phone: 11-04-2022 07:53-0400 65 1 Samantha M Hoy Work Phone: [facility] 250 DO Work Phone: Comment on above: [id number] 10-24-2022 10:01-0400 Body height 175.26 cm Samantha M Hoy Work Phone: [facility] 250 DO Work Phone: 10-24-2022 10:01-0400 Body mass index (BMI) [Ratio] 26.58 kg/m2 Samantha M Hoy Work Phone: [facility] 250 DO Work Phone: 10-24-2022 10:01-0400 Body surface area Derived from formula 1.98 m2 Samantha M Hoy Work Phone: [facility] 250 DO Work Phone: 10-24-2022 10:01-0400 Body weight 81.65 kg Samantha M Hoy Work Phone: [facility] 250 DO Work Phone: 10-24-2022 10:01-0400 Diastolic blood pressure 82 mm[Hg] Samantha M Hoy Work Phone: [facility] 250 DO Work Phone: 10-24-2022 10:01-0400 Heart rate 84 /min Samantha M Hoy Work Phone: [facility] 250 DO Work Phone: 10-24-2022 10:01-0400 Systolic blood pressure 144 mm[Hg] Samantha M Hoy Work Phone: [facility] 250 DO Work Phone: Encounters Encounter Date Encounter Type Care Provider Facility Start: 03-18-2024 End: 03-18-2024 Patient encounter procedure Compa Corcoran BINDING PRINTER.NEGATIVE RETOUCHER Work Phone: Cardiology Comment on above: Chronic systolic (co ngestive) heart failure (HCC) (Primary Dx) Start: 03-18-2024 End: 03-18-2024 ambulatory [facility] Facility:[facility] Start: 02-16-2024 End: 02-16-2024 Telephone encounter Kendra Mendoza MD Work Phone: Cardiology Start: 02-09-2024 End: 02-09-2024 ambulatory [facility] Facility:[facility] Start: 02-09-2024 End: 02-09-2024 Patient encounter procedure Transesophageal Echo Card [facility] Comment on above: Paroxysmal atrial fi brillation (HCC) Start: 02-09-2024 End: 02-09-2024 [facility] Facility:[facility] Start: 02-05-2024 End: 02-05-2024 Orders Only Arsen Talavera MD Work Phone: Cardiology Comment on above: Paroxysmal atrial fi brillation (HCC) (Primary Dx) Patient Education (E PS- SHARON/DCC) Appointment (EPS- TE E/DCC) Start: 02-04-2024 End: 02-04-2024 Patient encounter procedure Kendra Mendoza MD Work Phone: Cardiology Comment on above: Paroxysmal atrial fi brillation (HCC) (Primary Dx); Chronic systolic (congestive) heart failure (HCC); Essential hypertension, benign; Tachycardia induced cardiomyopathy (HCC); Cardiomyopathy, nonischemic (HCC); Non-rheumatic mitral regurgitation; Other specified hypothyroidism; Other hyperlipidemia; Carpal tunnel syndrome, unspecified laterality; History of partial colectomy; History of gastrointestinal bleeding; Chronic anticoagulation Start: 02-04-2024 End: 02-05-2024 ambulatory SELF Facility:[facility] Start: 01-08-2024 End: 01-08-2024 ambulatory [facility] Start: 12-31-2023 End: 12-31-2023 ambulatory HUSEYIN Ardon [facility] Start: 12-25-2023 End: 12-25-2023 ambulatory [facility] Start: 05-25-2023 End: 05-25-2023 ambulatory AVELINA Ziegler [facility] Ambulatory Start: 01-28-2023 Patient encounter procedure Samantha Recio Work Phone: [facility] 250 DO Work Phone: Start: 01-28-[address] Avelina Rasmussen Facility: Start: 12-01-2022 Office outpatient vi sit 25 minutes Samantha Recio Work Phone: [facility] y 250 DO Work Phone: Start: 12-01-[address] Avelina Rasmussen Facility: Start: 10-31-[address] Avelina Weeks amohporter Rasmussen Facility:[id number] Start: 10-31-2022 End: 10-31-2022 ambulatory [facility] Facility:[facility] Start: 10-31-2022 Rx Renewal Samantha M Fracisconick Work Phone: [facility] 250 DO Work Phone: Start: 10-27-2022 End: 10-27-2022 ambulatory Quan Rasmussen Facility:[facility] Start: 10-24-[address] Samantha Recio Facility: [...] Date Procedure Procedure Detail Performing Clinician Start: 02-09-2024 Echo transthorc r-t 2d w/wo m-mode rec f-up/lmtd Kendra Mendoza MD Work Phone: Start: 02-14-[address] ROSANNA RECIO . Comment on above: Performed By: #### P [facility] ####[facility] [address] [place], [place] [address]EjRodolfo Gibson Start: 11-14-2021 End: 11-14-2021 Computerized ophthalmic imaging retina Zulema Levin MD Work Phone: Arthroplasty of knee Samantha Recio Work Phone: Cardiac catheterization Edilberto Recio Work Phone: Decompression of med nehemiah nerve Samantha Recio Work Phone: Excision of colon Samantha Recio Work Phone: Neuroplasty and transposition of median nerve at carpal tunnel Samantha Recio Work Phone: Neuroplasty With Transposition Of Ulnar Nerve Samantha Recio Work Phone: Tonsillectomy Samantha Recio Work Phone: Plan of Treatment Date Care Activity Detail Author Start: 02-08-2027 Diabetes Screening Diabetes Screenin g [facility] Start: 05-24-2024 End: 05-24-2024 ambulatory 05/24/2024 9:15 AM EST Results Only [facility] [address] [place] [address] DX: Chronic systolic heart failure [facility] Comment on above: DX: Chronic systolic heart failure Start: 05-24-2024 End: 05-24-2024 Patient encounter procedure Vascular Medicine Comment on above: DX: Chronic systolic heart failure Start: 05-09-2024 End: 05-09-2024 ambulatory 05/09/2024 10:45 AM EST [facility] [id number] Tineo MD [address] [facility] [address] [place] [address] DX: AFIB Cardiology Comment on above: DX: AFIB Start: 05-06-2024 End: 02-03-2025 Echocardiography ECHO Cardiology Routine Paroxysmal atrial fibrillation (HCC) Chronic systolic (congestive) heart failure (HCC) Expected: 05/06/2024, Expires: 02/03/2025 [facility] Comment on above: Expected: 05/06/2024 , Expires: 02/03/2025 Start: 03-18-2024 End: 03-18-2024 Patient encounter procedure Cardiology Comment on above: Paroxysmal atrial fi brillation (HCC) [I48.0] Start: 03-18-2024 End: 03-18-2024 ambulatory 03/18/2024 8:00 AM EDT Results Only Cardiology [address] [place] [address] Paroxysmal atrial fibrillation (HCC) [I48.0] Cardiology Comment on above: Paroxysmal atrial fi brillation (HCC) [I48.0] Start: 02-09-2024 End: 02-09-2024 Admission to same day surgery center 02/09/2024 5:15 PM EDT - 02/09/2024 6:15 PM EDT Surgery HOSP EP Lab [address] [place] [address] Rd Tineo MD [address] [facility] [address] [place] [address] 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 EXTERNAL ELECTIVE HOSP EP Lab Comment on above: 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 CAB DRIVER AL 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 Start: 02-09-2024 End: 02-09-2024 Cardioversion elective arrhythmia external 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 EXTERNAL ELECTIVE Persistent atrial fibrillation (HCC) 02/09/2024 5:15 PM EDT EP LAB Start: 02-09-2024 Subsequent hospital visit by physician 02/09/2024 5:15 PM EDT Hospital Encounter HOSP EP Lab [address] [place] [address] Rd Tineo MD [address] [place] [address] Persistent atrial fibrillation (HCC) [I48.19] HOSP EP Lab Comment on above: Persistent atrial fi brillation (HCC) [I48.19] Start: 02-09-2024 End: 02-09-2024 Cardioversion elective arrhythmia external 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 EXTERNAL ELECTIVE Persistent atrial fibrillation (HCC) 02/09/2024 3:35 PM EDT EP LAB Start: 02-09-2024 End: 02-09-2024 Patient encounter procedure Admitting Comment on above: interview DCC DCCV Start: 02-07-2024 Covid-19 Vaccine () Covid-19 Vaccine () [facility] Start: 02-07-2024 Covid-19 Vaccine () Covid-19 Vaccine () [facility] Start: 02-07-2024 Influenza vaccination Influenza Vacc ine (#1) [facility] Start: 02-04-2024 End: 05-05-2024 Comprehensive metabolic 2000 panel - Serum or Plasma COMPREHENSIVE METABOLIC PANEL Lab STAT Paroxysmal atrial fibrillation (HCC) Chronic systolic (congestive) heart failure (HCC) Expected: 02/04/2024, Expires: 05/05/2024 [facility] Comment on above: Expected: 02/04/2024 , Expires: 05/05/2024 Start: 02-04-2024 End: 05-05-2024 Natriuretic peptide.B prohormone N-Terminal [Mass/volume] in Serum or Plasma NT PRO BNP Lab STAT Paroxysmal atrial fibrillation (HCC) Chronic systolic (congestive) heart failure (HCC) Expected: 02/04/2024, Expires: 05/05/2024 [facility] Comment on above: Expected: 02/04/2024 , Expires: 05/05/2024 Start: 02-04-2024 End: 05-05-2024 Thyrotropin [Units/volume] in Serum or Plasma THYROID STIMULATING HORMONE Lab Routine Paroxysmal atrial fibrillation (HCC) Chronic systolic (congestive) heart failure (HCC) Expected: 02/04/2024, Expires: 05/05/2024 [facility] Comment on above: Expected: 02/04/2024 , Expires: 05/05/2024 Start: 06-08-2023 Advance Directive Discussion Advance Directive Discussion [facility] Start: 05-20-2023 FUV, Provider: Avelina Rasmussen, Status: Riccardo, Time: 9:10 AM FUV, Provider: Avelina Rasmussen, Status: Pen, Time: 9:10 AM [facility] yung 250 DO Work Phone: Start: 02-06-2023 Covid-19 Vaccine ( season) Covid-19 Vaccine ( season) [facility] Start: 12-01-2022 FUV, Provider: Avelina Rasmussen, Status: Pen, Time: 1:00 PM FUV, Provider: Avelina Rasmussen, Status: Pen, Time: 1:00 PM [facility] 250 DO Work Phone: Start: 11-29-2022 End: 05-08-2023 OCT MACULA CIRRUS OU (BOTH EYES) OCT MACULA CIRRUS OU (BOTH EYES) OPHT Imaging Routine Epiretinal membrane (ERM) of both eyes Nevus of choroid of left eye Expected: 11/29/2022, Expires: 05/08/2023 [facility] Work Phone: Comment on above: Expected: 11/29/2022 , Expires: 05/08/2023 Start: 02-06-2022 Influenza vaccination INFLUENZA (Sea son Ended) [facility] Start: 08-17-2021 COVID-19 VACCINE (4 - Booster for Moderna series) COVID-19 VACCINE (4 - Booster for Moderna series) [facility] Start: 06-08-2021 ADVANCE DIRECTIVE DISCUSSION ADVANCE DIRECTIVE DISCUSSION [facility] Start: 09-29-2015 RSV Vaccine (1 - 1-d ose 75+ series) RSV Vaccine (1 - 1-dose 75+ series) [facility] Start: 09-10-2006 DIABETES SCREEN DIABETES SCREEN [facility] Start: 09-10-2006 Diabetes Screening Diabetes Screenin g [facility] Start: 2005 Pneumococcal Vaccine : 65+ (1 of 1 - PCV) Pneumococcal Vaccine: 65+ (1 of 1 - PCV) [facility] Start: 2005 PNEUMOCOCCAL: 65+ (1 - PCV) PNEUMOCOCCAL: 65+ (1 - PCV) [facility] Start: 2000 RSV Vaccine (1 - 1-d ose 60+ series) RSV Vaccine (1 - 1-dose 60+ series) [facility] Start: 1990 SHINGRIX VACCINE (1 of 2) HOLLINS GRIX VACCINE (1 of 2) [facility] Start: 09-29-1959 Urine microalbumin profile [facility] Start: 1958 Anxiety Screening Anxiety Screening [facility] Start: 1958 Depression Screening Depression Scre ening [facility] Start: 1946 Pneumococcal Vaccine : 65+ (1 of 2 - PCV) Pneumococcal Vaccine: 65+ (1 of 2 - PCV) [facility] Cardioversion electi ve arrhythmia internal spx 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, ELECTIVE, ELECTRICAL Cardiology Routine Paroxysmal atrial fibrillation (HCC) Ordered: 02/04/2024 [facility] Work Phone: Comment on above: Ordered: 02/04/2024 End: 02-04-2025 ECG COMPLETE ECG COMPLETE ECG Routine Paroxysmal atrial fibrillation (HCC) 1 Occurrences starting 02/05/2024 until 02/04/2025 [facility] Work Phone: Comment on above: 1 Occurrences starti ng 02/05/2024 until 02/04/2025 End: 02-03-2025 ECHO TRANSESOPHAGEAL ECHO TRANSESOPHAGEAL Cardiology Routine Paroxysmal atrial fibrillation (HCC) 1 Occurrences starting 02/04/2024 until 02/03/2025 [facility] Comment on above: 1 Occurrences starti ng 02/04/2024 until 02/03/2025 Immunizations Immunization Date Immunization Notes Care Provider Glenroy pleitez 04-19-2021 Moderna COVID-19 Vac cine 100 MCG/0.5ML Intramuscular Suspension [employer] Work Phone: [facility] [place] 250 DO Work Phone: 2020 Moderna COVID-19 Vac cine 100 MCG/0.5ML Intramuscular Suspension [employer] Work Phone: [facility] [place] 250 DO Work Phone: 08-31-2020 Moderna COVID-19 Vac cine 100 MCG/0.5ML Intramuscular Suspension Samantha [employer] Work Phone: [facility] In [employer] 250 DO Work Phone: 04-07-2017 influenza virus vacc ine, unspecified formulation Samantha Recio Work Phone: [facility] 250 DO Work Phone: 03-25-2016 influenza virus vacc ine, unspecified formulation Samantha Recio Work Phone: [facility] 250 DO Work Phone: 03-17-2016 influenza, high dose seasonal, preservative-free [facility] Work Phone: Payers Date Payer Category Payer Self-pay 2020 Unknown MMO MMO MEDICARE SUPPLEMENT [id number] 2020-Present [phone] [address] [place] [address] Indemnity [id number] 2020 Unknown 2005 Medicare MEDICARE MEDICAR E A AND B [id number] 2005-Present [phone] [address] [address] [place] [address] Medicare [id number] 1959 Medicare [id number] 1959 Unknown [id number] 1940 Unknown [id number] 1940 Unknown [id number] 1940 Unknown [id number] 1940 Unknown [id number] 1940 Unknown [id number] 1940 Unknown [id number] 1940 Unknown [id number] 1940 Unknown [id number] 1940 Unknown [id number] 1940 Unknown [id number] 1940 Unknown [id number] Unknown [id number] Unknown [id number] Social History Date Type Detail Facility Start: 12-14-2015 Tobacco smoking stat [facility] Never smoked tobacco [facility] Start: 12-14-2015 End: 02-04-2024 Tobacco use and exposure Smokeless tobacco non-user [facility] Start: 11-14-2021 End: 03-18-2024 Alcohol intake Current drinker of alcohol (finding) [facility] Start: 12-14-2015 History SDOH Alcohol Comment on occ [facility] Start: 1940 Sex Assigned At Not on file [facility] Start: 02-04-2024 End: 03-18-2024 Never a smoker Never a smoker [facility] [address] DO Work Phone: Comment on above: COFFEE DAILY; Start: 02-04-2024 [facility] Start: [birth year]-08-1954 History of tobacco use Current smoke r [facility] Start: [birth year]-08-1954 History of tobacco use Cigarette Smo ker [facility] Start: 02-04-2024 End: 03-18-2024 Tobacco use panel [facility] National Score (1-100), lower number is lower risk 91 [facility] Goals Date Patient Goal Desired Activity /State Personal health goal Clinical Notes 11-14-2021 to 03-18-2024 Patient InstructionsCompa Corcoran APRN.CNP - 03/18/2024 10:16 AM EDTTelephone Encounter - Marily Lange - 02/16/2024 3:06 PM EDTTelephone Encounter - Cesar Womack - 02/16/2024 12:38 PM EDT Note Date & Type Note Facility 03-18-2024 Instructions Compa Corcoran APRN.CNP - 03/18/2024 10:42 AM EDT -No medication changes today. -Please have blood work faxed to me when you get it done locally. -Follow-up with Dr. Mendoza on 05/24/2024 with labs and testing. documented in this encounter [facility] 03-18-2024 Note HNO ID: [id number] Author: COMPA CORCORAN APRN.CNP Service: ? Author Type: Nurse Practitioner Type: Progress Notes Filed: 03/18/2024 16:06 Note Text: Heart [facility] SECTION OF HEART FAILURE and CARDIAC TRANSPLANT MEDICINE OUTPATIENT VISIT DATE 03/18/2024 PRIMARY CARE PHYSICIAN: Samantha Recio [address] [place] [address] PRIMARY HEART FAILURE SPORTS UMPIRE: Dr. Mendoza CHIEF COMPLAINT: Follow-up HISTORY OF PRESENT ILLNESS: Brandi Rahman JR is a 83 year old male seen today by me for follow-up. He was last seen in heart failure clinic with Dr. Mendoza on 02/04/2024 and the following recommendations were made: Increase ToproL XL to 50 mg am and 25 mg pm x 2 days, then increase to 50 mg twice daily Arrange SHARON cadioversion as soon as possible Labs today and consider change potassium to spironolactone Followup in one month Since the last visit: -He underwent successful SHARON/DCCV on 02/09/2024. -His Toprol was stopped on 02/17/2024 for HR 40-50's. -His Lasix was stopped on 03/16/2024 for BP 70/40's with blurred vision/ dehydration. SOB: no Fatigue: improved Orthopnea: no PND: no Bendopnea: no Edema: right ankles ;stable Chest Pain: no Palpitations: no Dizziness/Lightheadedness: with exertion; sometimes Syncope: no Appetite: improved, denies nausea, denies early satiety Dietary restrictions: doesn't eat a lot of salt Fluid Restriction: under 64 ounces Regular Exercise/ Activity: working outside and around the house Performs daily weights: a few times per week PAST MEDICAL HISTORY Diagnosis Date Atrial fibrillation (HCC) Carpal tunnel syndrome Cataract OU Congestive heart failure (HCC) Dyslipidemia GI bleed Heart disease Hypertension Hypothyroidism Kidney stone Retinal tear 06/08/2000 OS PAST SURGICAL HISTORY Procedure Laterality Date PAST SURGICAL HISTORY OF 06/2000 Left eye Retinal detchement repair (laser) PAST SURGICAL HISTORY OF 8 Tonsils PAST SURGICAL HISTORY OF 1967 Left pat Tend. PAST SURGICAL HISTORY OF 1975 Repair Left tricept tendent PAST SURGICAL HISTORY OF 2007 coloencetomy PAST SURGICAL HISTORY OF 2014 repair carpal tunnel LT PAST SURGICAL HISTORY OF repair carpal tunnel RT XCAPSL CTRC RMVL INSJ IO LENS PROSTH W/O ECP Left 06/2000 Cataract Extraction with PC IOL Parshour XCAPSL CTRC RMVL INSJ IO LENS PROSTH W/O ECP Right 09/2003 Cataract Extraction with PC IOL MARIVEL SOCIAL [...] Take 40 mg by mouth once daily. Pbrqfqucookoa-Njpqigig-Zylbpz (CENTRUM SILVER) tab Take 1 tablet by mouth once daily. magnesium oxide 400 mg magnesium tab Take 400 mg by mouth once daily. KLOR-CON 10 10 mEq tablet Take 10 mEq by mouth two times a day. lisinopril (ZESTRIL) 5 mg tablet Take 5 mg by mouth once daily. sodium chloride 0.9 %, flush, (BD POSIFLUSH) syringe Inject 2-10 mL intravenously as directed. For Echo procedure ascorbic acid, vitamin C, (VITAMIN C) 500 mg tablet Take 500 mg by mouth once daily. acetaminophen (TYLENOL ARTHRITIS ORAL) Take by mouth as needed. CALCIUM CARBONATE/VITAMIN D3 (CALCIUM + D ORAL) Take by mouth. ZNOX/PYG/PUMPK/SAW PAL/PROST (MEN'S SAW PALMETTO FORMULA ORAL) Take by mouth. selenium 200 mcg cap Take by mouth. REVIEW OF SYSTEMS: See HPI PHYSICAL EXAMINATION: BP 147/86 Pulse 69 Ht 165.1 cm (5' 5 ) Wt 70.9 kg (156 lb 4.8 oz) SpO2 97% BMI 26.01 kg/m? Last weight on home scale: 150 (down 20 lbs past few months) Last 10 Encounter Wt Readings: Date: Wt: 03/18/2024 70.9 kg (156 lb 4.8 oz) 02/04/2024 71.9 kg (158 lb 8 oz)- last visit General appearance: No acute distress, conversant Neurologic/Psychiatric: Alert and oriented to time, place and person; mood pleasant. Gait grossly normal HEENT: PERRLA and EOM's intact, neck supple, no carotid bruits, grossly normal thyroid, normal hearing Neck: JVP normal. Trachea midline, full range of motion Heart: Rate regular with premature beats. S1, S2 present. No gallop. No Rub. No murmur. Lungs: clear bilaterally. Normal work of breathing, speaking in full sentences without difficulty. Abdomen: soft, non-distended, non-tender, normal bowel sounds, no organomegaly noted Extremities: Nails no clubbing or cyanosis. Warm, peripheral (more content not included)... [facility] 03-18-2024 History of Presen t illness Narrative Images from the original note were not included. [facility] SECTION OF HEART FAILURE and CARDIAC TRANSPLANT MEDICINE OUTPATIENT VISIT DATE 03/18/2024 PRIMARY CARE PHYSICIAN: Samantha Recio [address] [place] [address] PRIMARY HEART FAILURE SPORTS UMPIRE: Dr. Mendoza CHIEF COMPLAINT: Follow-up HISTORY OF PRESENT ILLNESS: Brandi Rahman JR is a 83 year old male seen today by me for follow-up. He was last seen in heart failure clinic with Dr. Mendoza on 02/04/2024 and the following recommendations were made: Increase ToproL XL to 50 mg am and 25 mg pm x 2 days, then increase to 50 mg twice daily Arrange SHARON cadioversion as soon as possible Labs today and consider change potassium to spironolactone Followup in one month Since the last visit: -He underwent successful SHARON/DCCV on 02/09/2024. -His Toprol was stopped on 02/17/2024 for HR 40-50's. -His Lasix was stopped on 03/16/2024 for BP 70/40's with blurred vision/ dehydration. SOB: no Fatigue: improved Orthopnea: no PND: no Bendopnea: no Edema: right ankles ;stable Chest Pain: no Palpitations: no Dizziness/Lightheadedness: with exertion; sometimes Syncope: no Appetite: improved, denies nausea, denies early satiety Dietary restrictions: doesn't eat a lot of salt Fluid Restriction: under 64 ounces Regular Exercise/ Activity: working outside and around the house Performs daily weights: a few times per week PAST MEDICAL HISTORY Diagnosis Date Atrial fibrillation (HCC) Carpal tunnel syndrome Cataract OU Congestive heart failure (HCC) Dyslipidemia GI bleed Heart disease Hypertension Hypothyroidism Kidney stone Retinal tear 06/08/2000 OS PAST SURGICAL HISTORY Procedure Laterality Date PAST SURGICAL HISTORY OF 06/2000 Left eye Retinal detchement repair (laser) PAST SURGICAL HISTORY OF 1948 Tonsils PAST SURGICAL HISTORY OF 1967 Left pat Tend. PAST SURGICAL HISTORY OF 1975 Repair Left tricept tendent PAST SURGICAL HISTORY OF 2007 coloencetomy PAST SURGICAL HISTORY OF 2014 repair carpal tunnel LT PAST SURGICAL HISTORY OF repair carpal tunnel RT XCAPSL CTRC RMVL INSJ IO LENS PROSTH W/O ECP Left 06/2000 Cataract Extraction with PC IOL Parshour XCAPSL CTRC RMVL INSJ IO LENS PROSTH W/O ECP Right 09/2003 Cataract Extraction with PC IOL MARIVEL SOCIAL [...] Take 40 mg by mouth once daily. Xjzlwwhshivds-Zyppulnl-Plakci (CENTRUM SILVER) tab Take 1 tablet by mouth once daily. magnesium oxide 400 mg magnesium tab Take 400 mg by mouth once daily. KLOR-CON 10 10 mEq tablet Take 10 mEq by mouth two times a day. lisinopril (ZESTRIL) 5 mg tablet Take 5 mg by mouth once daily. sodium chloride 0.9 %, flush, (BD POSIFLUSH) syringe Inject 2-10 mL intravenously as directed. For Echo procedure ascorbic acid, vitamin C, (VITAMIN C) 500 mg tablet Take 500 mg by mouth once daily. acetaminophen (TYLENOL ARTHRITIS ORAL) Take by mouth as needed. CALCIUM CARBONATE/VITAMIN D3 (CALCIUM + D ORAL) Take by mouth. ZNOX/PYG/PUMPK/SAW PAL/PROST (MEN'S SAW PALMETTO FORMULA ORAL) Take by mouth. selenium 200 mcg cap Take by mouth. REVIEW OF SYSTEMS: See HPI PHYSICAL EXAMINATION: BP 147/86 Pulse 69 Ht 165.1 cm (5' 5 ) Wt 70.9 kg (156 lb 4.8 oz) SpO2 97% BMI 26.01 kg/m Last weight on home scale: 150 (down 20 lbs past few months) Last 10 Encounter Wt Readings: Date: Wt: 03/18/2024 70.9 kg (156 lb 4.8 oz) 02/04/2024 71.9 kg (158 lb 8 oz)- last visit General appearance: No acute distress, conversant Neurologic/Psychiatric: Alert and oriented to time, place and person; mood pleasant. Gait grossly normal HEENT: PERRLA and EOM's intact, neck supple, no carotid bruits, grossly normal thyroid, normal hearing Neck: JVP normal. Trachea midline, full range of motion Heart: Rate regular with premature beats. S1, S2 present. No gallop. No Rub. No murmur. Lungs: clear bilaterally. Normal work of breathing, speaking in full sentences without difficulty. Abdomen: soft, non-distended, non-tender, normal bowel sounds, no organomegaly noted Extremities: Nails no clubbing or cyanosis. Warm, peripheral pulses palpable, no BLE edema Skin: Warm and dry. No rash or ulcers CARDIOVASCULAR MEDICINE TESTING: I have personally reviewed the Electrocardiogram, Chest X-ray, Laboratory Testing, and Echocardiogram. Echocardiogram: CONCLUSIONS: - Exam indication: Pre Cardioversion, Pre AF Ablation - The left ventricle is dilated. Left ventricular systolic function is moderately decreased. EF = 35 5% (visual est.) - The right ventricle is dilated. Right ventricular systolic function is moderately to severely decreased. - The left atrial cavity is severely dilated. - The right atrial cavity is dilated. 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 - There is restricted opening of the right coronary cusp without aortic stenosis. - There is no patent foramen ovale as detected by agitated saline contrast. -No URIAH thrombus - The patient has not had a prior CC echocardiographic exam for comparison. Labs: Component Ref Range & Units 1 mo ago 20 yr ago Glucose 74 - 99 mg/dL 92 105 R Comment: The [place] [employer] (ADA) provides guidance for cutoff values for fasting glucose and random glucose. The ADA defines fasting as no caloric intake for at least 8 hours. Fasting plasma glucose results between 100 to 125 mg/dL indicate increased risk for diabetes (prediabetes). Fasting plasma glucose results greater than or equal to 126 mg/dL meet the criteria for diagnosis of diabetes. In the absence of unequivocal hyperglycemia, results should be confirmed by repeat testing. In a patient with classic symptoms of hyperglycemia or hyperglycemic crisis, random plasma glucose results greater than or equal to 200 mg/dL meet the criteria for diagnosis of diabetes. Reference: Standards of Medical Care in Diabetes 2016, [place] [employer]. Diabetes Care. 2016.39(Suppl 1). BUN 9 - 24 mg/dL 36 High 27 Abnormal R Creatinine 0.73 - 1.22 mg/dL 1.45 High 1.0 R Sodium 136 - 144 mmol/L 141 142 R Potassium 3.7 - 5.1 mmol/L 4.8 4.5 R Chloride 98 - 107 mmol/L 102 104 R CO2 22 - 30 mmol/L 28 30 R Anion Gap 8 - 15 mmol/L 11 8 R Calcium, Total 8.5 - 10.2 mg/dL 9.8 9.5 R Estimated Glomerular Filtration Rate >=60 mL/min/1.73m 48 Low Comment: Estimated Glomerular Filtration Rate (eGFR) is calculated using the 2020 CKD-EPI creatinine equation. This equation utilizes serum creatinine, sex, and age as parameters. The creatinine assay has traceable calibration to isotope dilution-mass spectrometry. Refer to KDIGO guidelines for clinical interpretation. In patients with unstable renal function, e.g. those with acute kidney injury, the eGFR may not accurately reflect actual GFR. [facility] Specimen Collected: 02/09/24 See [facility] for details of other cardiac testing. IMPRESSION: NYHA Functional Class: I Stage: C heart failure -HFrEF/ NICM, chronic systolic heart failure, cardiomyopathy/ LVEF 35% Brandi Rahman JR is here today for follow-up. At his last visit, his Toprol was increase for Afib. He underwent successful SHARON/DCCV on 02/09/2024. His Toprol was then stopped on 02/17/2024 for HR 40-50's. And then his Lasix was stopped on 03/16/2024 for BP 70/40's with blurred vision/ dehydration. Today, he is warm and euvolemic. His weight is stable and he has no new or worsening cardiac complaints. He reports feeling a lot better overall. He states that he is med adherent and avoids sodium. ECG today shows SR with PVC/PAC's (off BB). Most recent labs reveal ROSA. He is having lab work drawn locally with his PCP and I will add on lab work with electrolytes and follow-up with him when I get the results. Of note, he is asking about the Watchman procedure and I will discuss candidacy with Dr. Mendoza. BB: stopped due to bradycardia ACEi/ARB/ARNI: lisinopril 5 mg daily MRA: no SGLT2i: no Vasodilators: no Diuretic regimen: Lasix stopped due to dehydration Digoxin: no Anti-arrhythmics: no Other anti-HTN: no Device therapy: no, swinomish QRS: 116 ms Sleep apnea: no Anemia: yes --Moderate MR --Atrial fib --HLD --HTN --Carpal tunnel syndrome --Colitis --Hypothyroidism; --GI Bleed --Kidney stone PLAN AND RECOMMENDATIONS: -No medication changes today. -Please have blood work faxed to me when you get it done locally. -Follow-up with Dr. Mendoza on 05/24/2024 with labs and testing. I personally interviewed, confirmed and edited the above information as obtained by others The majority of the visit was spent counseling and/or coordinating care for the patient. Face to Face time was 40 minutes. We discussed natural history of disease, current treatment options, future potential treatment options including transplant, mechanical support, etc. We discussed diet, exercise, other non-medical management as above. Compa Corcoran MSN, ACNP-BC, CHFN, [facility] Section Of Heart Failure and Cardiac Transplant Medicine Heart and Vascular [facility] Desk [address] [place] [address] documented in this encounter [facility] 02-16-2024 Telephone encounter Note Spoke with: Katalina (Spouse) Dr. Mendoza advised the following: - Stop Metoprolol for 2 days to get it out of his system - No EKG/no additional testing - Patient/spouse will call in on either Th or Fri this week to let us know what BP/HR is after stopping metoprolol Patient's spouse verbalized understanding. [facility] 02-16-2024 Miscellaneous Notes Spoke with: Katalina (Spouse) Dr. Mendoza advised the following: - Stop Metoprolol for 2 days to get it out of his system - No EKG/no additional testing - Patient/spouse will call in on either Thurs or Fri this week to let us know what BP/HR is after stopping metoprolol Patient's spouse verbalized understanding. February 16, 2024 Name: Brandi Rahman JR Patient Contact Number: [phone] (home) [phone] (work) Date of last office visit: 02/04/2024 Reason For Call: patient calling in stating that his Bp has been low and his HR has been in the 40s since his cardioversion. He stated that he has had no energy and cut down on his metoprolol 1x a day and still on lisinopril,lasix, and eliquis. Please advise Physician: Kendra Mendoza MD Patient was informed that non-urgent calls may be returned within the next three business days. Yes Cesar Womack documented in this encounter [facility] 02-16-2024 Telephone encounter Note February 16, 2024 Name: Brandi Rahman JR Patient Contact Number: [phone] (home) [phone] (work) Date of last office visit: 02/04/2024 Reason For Call: patient calling in stating that his Bp has been low and his HR has been in the 40s since his cardioversion. He stated that he has had no energy and cut down on his metoprolol 1x a day and still on lisinopril,lasix, and eliquis. Please advise Physician: Kendra Mendoza MD Patient was informed that non-urgent calls may be returned within the next three business days. Yes Cesar Womack [facility] 02-09-2024 Nurse Note AMBULATORY PATIENT EDUCATION TOPIC: SHARON READINESS TO LEARN COGNITIVE ABILITY: Alert and oriented MOTIVATION TO LEARN: Eager FAMILY SUPPORT: Unable to assess - Family not present INSTRUCTION PROVIDED TO: Patient PATIENT LEARNS BEST BY: Individual Instruction Verbal Instruction FACTORS AFFECTING LEARNING: None PHYSICAL LIMITATIONS AFFECTING LEARNING: None LEARNING RESPONSE DIAGNOSIS: DCCV METHOD OF INSTRUCTION: Individual instruction Verbal instruction PATIENT / FAMILY RESPONSE: Verbalizes understanding of: POST-PROCEDURE INSTRUCTIONS-Correct actions to take to reduce post procedure complications PRE-PROCEDURE INSTRUCTIONS-Correct action to take to follow pre-procedure instructions FOLLOW-UP PLAN: Complete - No need for follow-up SUPPLEMENTAL MATERIAL: Post SHARON instructions given Post sedation instructions given REFERRAL (RECOMMENDATION): None Electronically Signed By Nelly Wong RN In Department: CARDIOLOGY [facility] 02-09-2024 Nurse Note AMBULATORY PATIENT EDUCATION TOPIC: SHARON READINESS TO LEARN COGNITIVE ABILITY: Alert and oriented MOTIVATION TO LEARN: Eager FAMILY SUPPORT: Unable to assess - Family not present INSTRUCTION PROVIDED TO: Patient PATIENT LEARNS BEST BY: Individual Instruction Verbal Instruction FACTORS AFFECTING LEARNING: None PHYSICAL LIMITATIONS AFFECTING LEARNING: None LEARNING RESPONSE DIAGNOSIS: DCCV METHOD OF INSTRUCTION: Individual instruction Verbal instruction PATIENT / FAMILY RESPONSE: Verbalizes understanding of: POST-PROCEDURE INSTRUCTIONS-Correct actions to take to reduce post procedure complications PRE-PROCEDURE INSTRUCTIONS-Correct action to take to follow pre-procedure instructions FOLLOW-UP PLAN: Complete - No need for follow-up SUPPLEMENTAL MATERIAL: Post SHARON instructions given Post sedation instructions given REFERRAL (RECOMMENDATION): None Electronically Signed By Nelly Wong RN In Department: CARDIOLOGY documented in this encounter [facility] 02-05-2024 Note HNO ID: [id number] Author: SHAWANDA VARGAS RN Service: ? Author Type: Registered Nurse Type: Progress Notes Filed: 02/05/2024 08:54 Note Text: THE FOLLOWING WAS EVALUATED Motivation To Learn: Interested Family/Significant Other Support: High - Very involved in pt care Cognitive Ability: Alert and oriented Patient Learns Best By: Verbal Instruction The Following Influencing Factors Were Barriers To This Education Session: None The Following Physical Limitations Were Barriers To This Education Session: None Instruction Provided To: Spouse Procedure: Cardioversion TransEsophageal Echo (SHARON) Pre-procedure information reviewed: Patient ID verified Procedure verified Physician verified Explanation of procedure Sedation level during procedure medication instructions from EP lab request Travel instructions/restrictions Scheduling information Possible same day discharge versus overnight hospital stay Check out time Family waiting area Physician contact with family after procedure Post Procedure Expectations reviewed: Inpatient hospital stay Post procedure antiarrhythmics and anticoagulation will be discussed with Physician, nurse practitioner or Physician school office assistant upon discharge Instructions for transmitting EKG to Monitoring [facility] 3 month follow up instructions Contact number for information and questions Patient Evaluation: Verbalizes understanding Follow Up Plan: Follow up as directed by MD. Supplemental Material Given: Written Material Instructed By Shawanda Vargas RN. In Department of CARDIOLOGY. [facility] 02-05-2024 History of Presen t illness Narrative THE FOLLOWING WAS EVALUATED Motivation To Learn: Interested Family/Significant Other Support: High - Very involved in pt care Cognitive Ability: Alert and oriented Patient Learns Best By: Verbal Instruction The Following Influencing Factors Were Barriers To This Education Session: None The Following Physical Limitations Were Barriers To This Education Session: None Instruction Provided To: Spouse Procedure: Cardioversion TransEsophageal Echo (SHARON) Pre-procedure information reviewed: Patient ID verified Procedure verified Physician verified Explanation of procedure Sedation level during procedure MD medication instructions from EP lab request Travel instructions/restrictions Scheduling information Possible same day discharge versus overnight hospital stay Check out time Family waiting area Physician contact with family after procedure Post Procedure Expectations reviewed: Inpatient hospital stay Post procedure antiarrhythmics and anticoagulation will be discussed with Physician, nurse practitioner or Physician school office assistant upon discharge Instructions for transmitting EKG to [facility] 3 month follow up instructions Contact number for information and questions Patient Evaluation: Verbalizes understanding Follow Up Plan: Follow up as directed by MD. Supplemental Material Given: Written Material Instructed By Shawanda Vargas RN. In Department of CARDIOLOGY. documented in this encounter [facility] 02-05-[address] Mendoza requesting SHARON/DCC for 02/09/24. SHARON noted to be scheduled 02/08. DCC scheduled as requested. Patient's accepting date of 02/08. Shawanda Vargas RN [facility] 02-05-[address] Mendoza requesting SHARON/DCC for 02/09/24. SHARON noted to be scheduled 02/08. DCC scheduled as requested. Patient's accepting date of 02/08. Shawanda Vargas RN documented in this encounter [facility] 02-05-2024 Note Education (EPSMN) BRANDI RAHMAN ([id number]) 1940 M Date Time Provider Department 02/05/24 KENDRA MENDOZA EPSMN Reason for Visit: Patient Education [91] Cmt: EPS- SHARON/DCC During your visit today, we recorded the following information about you: Allergies As of Date: 02/05/2024 (No Known Allergies) Date Reviewed: 02/04/2024 Reviewed by: Katelyn Stevenson, DARRIAN - Fully Assessed Prescriptions as of 02/05/2024 - apixaban (ELIQUIS) 5 mg tab(s) Take 5 mg by mouth two times a day. - LASIX 40 mg tablet Take 40 mg by mouth once daily. - metoprolol succinate ER (TOPROL XL) 50 mg 24 hr tablet Take 50 mg by mouth once daily. - Skjjaylnmorep-Rcydwbsi-Tygmbt (CENTRUM SILVER) tab Take 1 tablet by mouth once daily. - magnesium oxide 400 mg magnesium tab Take 400 mg by mouth once daily. - KLOR-CON 10 10 mEq tablet Take 10 mEq by mouth two times a day. - lisinopril (ZESTRIL) 5 mg tablet Take 5 mg by mouth once daily. - sodium chloride 0.9 %, flush, (BD POSIFLUSH) syringe Inject 2-10 mL intravenously as directed. For Echo procedure - ascorbic acid, vitamin C, (VITAMIN C) 500 mg tablet Take 500 mg by mouth once daily. - acetaminophen (TYLENOL ARTHRITIS ORAL) Take by mouth as needed. - CALCIUM CARBONATE/VITAMIN D3 (CALCIUM + D ORAL) Take by mouth. - ZNOX/PYG/PUMPK/SAW PAL/PROST (MEN'S SAW PALMETTO FORMULA ORAL) Take by mouth. - selenium 200 mcg cap Take by mouth. Encounter Status:Closed by SHAWANDA VARGAS on 02/05/24 [facility] 02-04-2024 History of Presen t illness Narrative Images from the original note were not included. 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 He saw Dr. Yeager in [place] who did not address shortness of breath [...] Take 50 mg by mouth once daily. Pzscigdelnqzv-Adjoswgx-Cqetit (CENTRUM SILVER) tab Take 1 tablet by [...] S1, S2 normal, +S3, III/ HSM c/w MR. Abdomen: Soft, nontender, bowel sounds normal, no [...] HFrEF (LVEF 30%) and given IV diuretics. [place] a little better but still has shortness [...] potassium to spironolactone Followup in one month Kendra Mendoza MD February 04, 2024 5:41 PM I personally interviewed, confirmed and edited the above information as obtained by others I personally spent 45 minutes in total time involved in the management and care of this patient. We discussed natural history of disease, current treatment options, and future potential treatment options. We discussed diet, exercise, other non-medical management as above. Kendra Mendoza MD [facility] Section Of Heart Failure and Cardiac Transplant Medicine [facility] Desk [id number] [place] [address] documented in this encounter [facility] 02-04-2024 Note HNO ID: [id number] Author: KENDRA MENDOZA MD Service: ? 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 He saw Dr. Yeager in [place] who did not address shortness of breath [...] Take 50 mg by mouth once daily. Omhepopbnkpvp-Qayhehqw-Hsuesr (CENTRUM SILVER) tab Take 1 tablet by [...] Hearing loss, Nosebleeds, Mouth sores, Trouble swallowing, (more content not included)... [facility] 11-14-2021 History of Presen t illness Narrative New patient to Dr. Levin Last seen with Dr. 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 Epiretinal membrane (ERM) of both eyes [facility] Diagnosis Paroxysmal atrial fibrillation (HCC)- Primary Atrial [...] use of anticoagulants documented in this encounter [facility] note* Diagnosis Paroxysmal atrial fibrillation (HCC)- Primary Atrial fibrillation Persistent atrial fibrillation (HCC) Atrial fibrillation documented in this encounter [facility] note* Diagnosis Paroxysmal atrial fibrillation (HCC) Atrial fibrillation documented in this encounter [facility] note* Diagnosis Chronic systolic (congestive) heart failure (HCC)- Primary documented in this encounter [facility] for referral (narrative)* Outpatient Procedure (Routine) - Authorized Specialty Diagnoses / Procedures Referred By Sophia carlos Referred To Contact [facility] [place] Diagnoses Paroxysmal atrial fibrillation (HCC) Procedures ECG COMPLETE ECG ROUTINE ECG W/LEAST 12 LDS W/I&R Arsen Talavera MD [address] [place] [address] [address] Referral ID Status Reason Start Date Expiration Date Visits Requested Visits Authorized [id number] Authorized Auto-Generat ed Referral 02/05/2024 02/04/2025 1 1 [facility] for visit Narrative* Outpatient Procedure (Routine) - Closed Specialty Diagnoses / Procedures Referred By Sophia carlos Referred To Contact [facility] Diagnoses Paroxysmal atrial fibrillation (HCC) Procedures ECHO TRANSESOPHAGEAL ECHO TRANSESOPHAG R-T 2D W/PRB IMG CYRUS I&R Kendra Mendoza MD [address] [place] [address] [address] Referral ID Status Reason Start Date Expiration Date V isits Requested Visits Authorized [id number] Closed Auto-Generate d Referral 02/04/2024 02/03/2025 1 1 [facility] Summary Purpose Family History Unknown Family [...] needing tocheck HR for PAF per Dr. Avelina Rasmussen MD * Patient states that he has been holding his diltazem since 01/14 and has been monitoring his BP and HR at home on his home monitor and HR has been averaging 76-84 ( scanned to chart for review) He denies any symptoms of lightheaded or dizziness since stopping the medication. * Reviewed with Genevieve Negrete RN * TO Dr. Avelina Rasmussen MD Reason for Referral Specialty Diagnoses / Procedures Referred By Contac t Referred To Contact [facility] [place] Procedures CARDIOVASCULAR MEDICINE OP FOLLOW UP APPT ORDER Kendra Mendoza MD [address] [place] [id number] [address] Referral ID Status Reason Start Date Expiration Date Visits Requested Visits Authorized [id number] Ref Not Required PCP Requested Referral 03/06/2024 02/03/2025 1 1 Specialty Diagnoses / Procedures Referred By Contac t Referred To Contact Diagnoses Paroxysmal atrial fibrillation (HCC) Procedures CONSULT TO ELECTROPHYSIOLOGY OFFICE/OUTPATIENT NEW HIGH MDM 60 [place] [address] [place] [id number] Referral ID Status Reason Start Date Expiration Date Visits Requested Visits Authorized [id number] Authorized PCP Requested Referral 02/04/2024 02/03/2025 1 1 Specialty Diagnoses / Procedures Referred By Contac t Referred To Contact [facility] [place] Diagnoses Paroxysmal atrial fibrillation (HCC) Chronic systolic (congestive) heart failure (HCC) Procedures ECHO ECHO TTHRC R-T 2D W/WOM-MODE COMPL SPEC&[place] [address] [place] [address] [address] Referral ID Status Reason Start Date Expiration Date Visits Requested Visits Authorized [id number] New Request Auto-Generat ed Referral 02/03/2025 1 1 Specialty Diagnoses / Procedures Referred By Contac t Referred To Contact [facility] [place] Diagnoses Paroxysmal atrial fibrillation (HCC) Procedures ECHO TRANSESOPHAGEAL ECHO TRANSESOPHAG R-T 2D W/PRB IMG Kendra Wilder MD [address] [place] [address] [facility] [address] [place] [address] Referral ID Status Reason Start Date Expiration Date Visits Requested Visits Authorized [id number] New Request Auto-Generat ed Referral 02/04/2024 02/03/2025 1 1 Additional Source Comments (unrecognized sect ion and content) No Status Records FoundNo Status Records FoundNo Status Records FoundNo Status Records FoundNo Status Records FoundNo Status Records FoundNo Status Records FoundNo Status Records FoundNo Status Records Found INFORMATION SOURCE (unrecogn ized section and content) DATE CREATED AUTHOR 01/19/2021 [facility] DATE CREATED AUTHOR AUTHOR'S ORGANIZ ATION 09/22/2022 [facility] DATE CREATED AUTHOR AUTHOR'S ORGANIZ ATION 11/16/2022 [facility] DATE CREATED AUTHOR AUTHOR'S ORGANIZ ATION 12/02/2022 [employer] DATE CREATED AUTHOR AUTHOR'S ORGANIZ ATION 01/29/2023 [facility] DATE CREATED AUTHOR AUTHOR'S ORGANIZ ATION 01/04/2024 [facility] DATE CREATED AUTHOR AUTHOR'S ORGANIZ ATION 01/13/2024 [facility] DATE CREATED AUTHOR AUTHOR'S ORGANIZ ATION 02/03/2024 [facility] DATE CREATED AUTHOR AUTHOR'S ORGANIZ ATION 03/19/2024 [facility] Source Comments (unrecognize d section and content) In the event this informatio n is protected by the Federal Confidentiality of Alcohol and Drug Abuse Patient Records regulations: The Federal rules restrict any use of the information to criminally investigate or prosecute any alcohol or drug abuse patient.[facility] the event this information is protected by the Federal Confidentiality of Alcohol and Drug Abuse Patient Records regulations: The Federal rules restrict any use of the information to criminally investigate or prosecute any alcohol or drug abuse patient.[facility] the event this information is protected by the Federal Confidentiality of Alcohol and Drug Abuse Patient Records regulations: The Federal rules restrict any use of the information to criminally investigate or prosecute any alcohol or drug abuse patient.[facility] the event this information is protected by the Federal Confidentiality of Alcohol and Drug Abuse Patient Records regulations: The Federal rules restrict any use of the information to criminally investigate or prosecute any alcohol or drug abuse patient.[facility] the event this information is protected by the Federal Confidentiality of Alcohol and Drug Abuse Patient Records regulations: The Federal rules restrict any use of the information to criminally investigate or prosecute any alcohol or drug abuse patient.[facility] the event this information is protected by the Federal Confidentiality of Alcohol and Drug Abuse Patient Records regulations: The Federal rules restrict any use of the information to criminally investigate or prosecute any alcohol or drug abuse patient.[facility] the event this information is protected by the Federal Confidentiality of Alcohol and Drug Abuse Patient Records regulations: The Federal rules restrict any use of the information to criminally investigate or prosecute any alcohol or drug abuse patient.[facility] the event this information is protected by the Federal Confidentiality of Alcohol and Drug Abuse Patient Records regulations: The Federal rules restrict any use of the information to criminally investigate or prosecute any alcohol or drug abuse patient.[facility] Reason for Visit (unrecogniz ed section and content) Reason Comments Epiretinal Membrane Follow Up [facility]U Choroidal nevus of left eye Reason Comments Consult Reason Comments Patient Education EPS- SHARON/DCC Reason Comments Appointment EPS- SHARON/DCC Reason Comments Follow Up Specialty Diagnoses / Procedures Referred By Contac t Referred To Contact [facility] [place] Procedures CARDIOVASCULAR MEDICINE OP FOLLOW UP APPT ORDER Kendra Mendoza MD [address] [place] [address] [facility] [address] [place] [address] Referral ID Status Reason Start Date Expiration Date Visits Requested Visits Authorized [id number] Ref Not Required PCP Requested Referral 03/06/2024 02/03/2025 1 1 Care Teams (unrecognized sec tion and content) Pulper Relationship Specialty Start Date End Date Jailyn Milan [address] [phone] PCP - General 09/11/03 Pulper Relationship Specialty Start Date End Date Jailyn Milan [address] [place] [employer] [phone] PCP - General 09/11/03 Pulper Relationship Specialty Start Date End Date Samantha Recio MD [address] [place] [address] PCP - General Family Medicine 02/05/24 Pulper Relationship Specialty Start Date End Date Samantha Recio MD [address] [place] [id number] PCP - General Family Medicine 02/05/24 Pulper Relationship Specialty Start Date End Date Samantha Recio MD [address] [place] [address] PCP - General Family Medicine 02/05/24 Pulper Relationship Specialty Start Date End Date Samantha Recio MD [address] [place] [id number] PCP - General Family Medicine 02/05/24 Pulper Relationship Specialty Start Date End Date Samantha Recio MD [address] [place] [address] PCP - General Family Medicine 02/05/24 FOR [...] BE BASED ON THE PRIMARY CLINICAL RECORDS. [facility] [employer] [facility]. provides no warranty or guarantee of the accuracy or completeness of information in this document.
[2024-03-31 13:13] LABS: Anion Gap 13.9; BUN Creatinine Ratio 19.8; Calcium 9.1 mg/dL (8.5-10.1); Carbon Dioxide 28.5 mmol/L (21.0-32.0); Chloride 105 mmol/L (98-107); Estimated GFR (African America 48 (>=60 mL/min/1.73m^2); Estimated GFR (Non-African Ame 39 (>=60 mL/min/1.73m^2); Glucose 107 mg/dL (74-106); Potassium 4.4 mmol/L (3.5-5.1); Sodium 143 mmol/L (136-145)
== END 2024-03-31 11:25 | disposition home or self-care (01) ==
LOC: LAB 11:26
PROVIDERS: PCP Family Medicine
DX: I50.20 Unspecified systolic (congestive) heart failure (principal)
CPT/HCPCS: 36415; 80048; 83735; 83880

== ENCOUNTER 2024-03-31 11:31 | Outpatient (OUT) | payer MEDICARE, OTHER, SELFPAY ==
--- OUTSIDE RECORDS SUMMARY | 2024-03-31 11:38 | XMS_ITS | CCD ---
Author Organization [facility] Care Team Providers Care Vegetable Specker Name Role Phone Jailyn Milan Primary Care Provider FRANCESCO ., DR SINGH Admitting Unavailable HOY [...] Care Unavailable Jailyn Milan Primary Care Provider [phone] Samantha Recio MD Primary Care Provider [phone] OSMAN RODRIGUEZ Referring Unavailable JAILYN MILAN Primary Care Unavailable SAMANTHA RECIO Primary Care Unavailable COMPA CORCORAN Attending Unavailable KENDRA MENDOZA Referring Unavailable SAMANTHA RECIO Primary Care Unavailable RD TINEO Attending Unavailable RD TINEO Admitting Unavailable ARSEN TALAVERA Referring Unavailable SAMANTHA RECIO Primary Care Unavailable SAMANTHA RECIO Primary [...] mg by mouth once daily. 12/25/2023 Active Multivitamins-[place] als-Lutein (CENTRUM SILVER) tab (7 sources) take [...] release oral capsule (4 sources) Calcium Channel Preeit Start: 11-10-2015 End: 02-04-2024 diltiazem CD (CARDIZEM [...] Rasmussen MD Start : 24-Oct-2022 Active Saw [place] 450 MG Oral Capsule (3 sources) Saw [place] 450 MG Oral Capsule TAKE DIRECTED. 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) drug therapy] Onset: 03-18-2023 Episodic [...] Test Name Value Interpretation Reference Range Facility [facility] 03-18-2024 CNOV Office Visit (CARD C HF RHONA) BRANDI RAHMAN ([id number]) 1940 M Date Time Provider Department 03/18/24 10:00 AM COMPA CORCORAN CHF RHONA During your visit today, we recorded the following information about you: Pulse Blood pressure Weight Height 69/minute 147/86 70.9 kg 1.651 m Compa Corcoran APRN.CERAMIC RESEARCH ENGINEER 03/18/2024 4:06 PM [facility] [place] [facility] SECTION OF HEART FAILURE and CARDIAC TRANSPLANT MEDICINE OUTPATIENT VISIT DATE 03/18/2024 PRIMARY CARE PHYSICIAN: Samantha Recio [address] [place] [address] PRIMARY HEART FAILURE EXCELLENCE SPECIALIST: Dr. Mendoza CHIEF COMPLAINT: Follow-up HISTORY OF [...] No Rub. (more content not included)... Normal [facility] BRANDI RAHMAN ([id number]) 1940 M Date Time Provider Department 02/16/24 KENDRA MENDOZA CARD [facility] During your visit today, we recorded the following information about you: Cesar Womack 02/16/2024 12:41 PM Signed February 16, 2024 Name: Brandi Rahman JR Patient Contact Number: [phone] (home) [phone] (work) Date of last office visit: 02/04/2024 [...] Encounter Status:Closed by KEVIN ZHU on 02/16/24 [facility] ANES POSTPROC EVALon 024 ANES POSTPROC EVAL HNO ID: [id number] Author: SHAKEEL FALL MD Service: ? Author Type: Anesthesiologist Type: Anesthesia Postprocedure Evaluation Filed: 02/09/2024 17:58 Note Text: POST ANESTHESIA EVALUATION NOTE : 1940 Procedure Summary Date: 02/09/24 Room / Location: [address] LAB Anesthesia Start: 1541 Anesthesia Stop: [...] February 09, 2024 TIME: 5:57 PM CSN: [id number] Normal [facility] ANES PRE-OPon 02-09-2024 ANES PRE-OP HNO ID: [id number] Author: SHAKEEL FALL MD Service: ? Author Type: Anesthesiologist Type: Anesthesia Preprocedure Evaluation Filed: 02/09/2024 15:45 Note Text: ANESTHESIOLOGY DAY OF SURGERY NOTE : 1940 Procedure Information Anesthesia Start Date/Time: 02/09/24 1541 Procedure: 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 EXTERNAL ELECTIVE Location: [address] Surgeons: Rd Tineo MD Estimated body [...] and consent discussed: yes. Patient / Responsible Libertarian agrees to proceed: yes Patient / Surrogate [...] February 09, 2024 TIME: 3:44 PM CSN: [id number] Normal [facility] Basic metabolic 2000 panelon 02-09-2024 Anion gap [Moles/Vol] 11 mmol/L Normal 8-15 [facility] Comment on above: Order Comment: Speci men Type: BLOOD SPECIMENOrdering Facility: [facility] Address: [address] [place] [address] Performed By: #### 2 4321-2 ####[facility] LABCLIA [id number] [place] [address] [place] Calcium [Mass/Vol] 9.8 mg/dL Normal 8.5-10.2 [facility] Comment on above: Order Comment: Speci men Type: BLOOD SPECIMENOrdering Facility: [facility] Address: [address] [place] [address] Performed By: #### 2 4321-2 ####[facility] LABCLIA [id number] [place] [address] [place] Chloride [Moles/Vol] 102 mmol/L Normal 98-107 [facility] Comment on above: Order Comment: Speci men Type: BLOOD SPECIMENOrdering Facility: [facility] Address: [address] [place] [address] Performed By: #### 2 4321-2 ####[facility] LABCLIA [id number] [place] [address] [place] CO2 [Moles/Vol] 28 mmol/L Normal 22-30 [facility] Comment on above: Order Comment: Speci men Type: BLOOD SPECIMENOrdering Facility: [facility] Address: [address] [place] [address] Performed By: #### 2 4321-2 ####[facility] LABCLIA [id number] [place] [address] [place] Creatinine [Mass/Vol] 1.45 mg/dL High 0.73-1.22 [facility] Comment on above: Order Comment: Marilyn melendez Type: BLOOD SPECIMENOrdering Facility: [facility] Address: [address] [place] [address] Performed By: #### 2 4321-2 ####[facility] LABIA [id number] [place] [address] [place] Creatinine and Glomerular filtration rate.predicted panel (S/P/Bld) 48 mL/min/1.73m??? Low >=60 [facility] Comment on above: Order Comment: Marilyn melendez Type: BLOOD SPECIMENOrdering Facility: [facility] Address: [address] [place] [address] Result Comment: Erica mated Glomerular Filtration Rate [...] actual GFR. Performed By: #### 2 4321-2 ####[facility] LABCLIA [id number] [place] [address] [place] Glucose [Mass/Vol] 92 mg/dL Normal 74-99 [facility] Comment on above: Order Comment: Marilyn melendez Type: BLOOD SPECIMENOrdering Facility: [facility] Address: [address] [place] [address] Result Comment: The [place] Diabetes Association (ADA) provides guidance for cutoff [...] Standards of Medical Care in Diabetes 2016, [place] Diabetes Association. Diabetes Care. 2016.39(Suppl 1). Performed By: #### 2 4321-2 ####[facility] LABCLIA [id number] [place] [address] [place] Potassium [Moles/Vol] 4.8 mmol/L Normal 3.7-5.1 [facility] Comment on above: Order Comment: Marilyn melendez Type: BLOOD SPECIMENOrdering Facility: [facility] Address: [address] [place] [address] Performed By: #### 2 4321-2 ####[facility] LABIA [id number] [place] [address] [place] Sodium [Moles/Vol] 141 mmol/L Normal 136-144 [facility] Comment on above: Order Comment: Marilyn melendez Type: BLOOD SPECIMENOrdering Facility: [facility] Address: [address] [place] [address] Performed By: #### 2 4321-2 ####[facility] LABIA [id number] [place] [address] [place] Urea nitrogen [Mass/Vol] 36 mg/dL High 9-24 [facility] Comment on above: Order Comment: Marilyn melendez Type: BLOOD SPECIMENOrdering Facility: [facility] Address: [address] [place] [address] Performed By: #### 2 4321-2 ####[facility] LABIA [id number] [place] [address] [place] CNOVon 02-09-2024 CNOV Office Visit (CAFLMN ) BRANDI RAHMAN ([id number]) 1940 M Date Time Provider Department 02/09/24 [...] Diagnosis:Paroxysmal atrial fibrillation (HCC) [I48.0] Order(s):ECHO TRANSESOPHAGEAL [43139606] Order #: [id number]: 1 [] benzocaine 20% (TOPEX)Disp: Rfl: [] [...] Status:Closed by SUNNI PERALES on 02/09/24 Normal [facility] ECG COMPLETEon 02-09-2024 ECG COMPLETE Ventricular Rate : 4 6 BPM Atrial Rate : 46 BPM P-R Interval : 356 ms QRS Duration : 108 ms Q-T Interval : 470 ms QTC Calculation(Bazett) : 411 ms Calculated P Belton : 75 degrees Calculated R Belton : 49 degrees Calculated T Belton : 74 degrees SINUS BRADYCARDIA WITH 1ST DEGREE AV BLOCK WITH PREMATURE ATRIAL COMPLEXES OTHERWISE NORMAL ECG Confirmed by MD PITA, PhD, WALDEMAR ([id number]) on 03/05/2024 1:18:52 PM NAME : BRANDI RAHMAN PID : [id number] : 1940 Gender : Male Race : ORD : [id number] Procedure Date : Feb 09 2024 16:02:03 Edit Date : Mar 05 2024 13:18:58 Diagnosis: SINUS BRADYCARDIA WITH 1ST DEGREE AV BLOCK WITH PREMATURE ATRIAL COMPLEXES OTHERWISE NORMAL ECG Confirmed by MD PITA, PhD, WALDEMAR ([id number]) on 03/05/2024 1:18:52 PM Test Reason : Post-OP Location : : [facility] Overread By : MD PITA, PhD,WALDEMAR Edited By : MD PITA, PhD,WALDEMAR Referred By : , Acquired by : [id number], Normal [facility] ECG COMPLETE Ventricular Rate : 1 07 BPM Atrial Rate : 357 BPM QRS Duration : 108 ms Q-T Interval : 354 ms QTC Calculation(Bazett) : 472 ms Calculated R Belton : 50 degrees Calculated T Belton : 87 degrees ATRIAL FLUTTER WITH VARIABLE A-V BLOCK NONSPECIFIC ST AND T WAVE ABNORMALITY ABNORMAL ECG Confirmed by MD CHANG HEBA ([id number]) on 02/15/2024 4:48:05 PM NAME : BRANDI RAHMAN PID : [id number] : 1940 Gender : Male Race : ORD : [id number] Procedure Date : Feb 09 2024 11:27:27 Edit Date : Feb 15 2024 16:48:07 Diagnosis: ATRIAL FLUTTER WITH VARIABLE A-V BLOCK NONSPECIFIC ST AND T WAVE ABNORMALITY ABNORMAL ECG Confirmed by MD CHANG HEBA ([id number]) on 02/15/2024 4:48:05 PM Test Reason : Pre-OP Location : : [place] [address] Overread By : MD CHANG HEBA Edited By : MD CHANG HEBA Referred By : , Acquired by : [id number], Normal [facility] ECHO TRANSESOPHAGEALon 02-08 CONCLUSIONS: - Exam indication: [...] [facility] Echocardiography Report: Transesophageal Echo [facility] J1-5 Date of service: 02/09/2024 1:23:25 PM MECHANIC Ordering physician: KENDRA MENDOZA Indication: Pre Cardioversion, [...] of intracardiac shunting. [facility] ECHO TRANSESOPHAGEAL Echocardiography Report: Transesophageal Echo [facility] J1-5 Date of service: 02/09/2024 1:23:25 PM MECHANIC Ordering physician: KENDRA MENDOZA Indication: Pre Cardioversion, [...] * * Final * * * CC [employer] [facility] : [id number] [id number] Normal [facility] NURSING PROGon 02-09-2024 NURSING PROG HNO ID: [id number] Author: NELLY WONG RN Service: ? Author [...] Nelly Wong RN In Department: [facility]OLOGY [facility] CNPN Telephone (EPSMN) BRANDI RAHMAN ([id number]) 1940 M Date Time Provider Department 02/05/24 KENDRA MENDOZA EPSNY During your visit today, we recorded the [...] Reason for Visit: Appointment [186] Cmt: EPS- SHAORN/DCC Prescriptions as of 02/05/2024 - apixaban (ELIQUIS) [...] Encounter Status:Closed by SHAWANDA VARGAS on 02/05/24 [facility] CNOVon 02-04-2024 CNOV Office Visit (CARD C HF RHONA) BRANDI RAHMAN ([id number]) 1940 [place] Date Time Provider Department 02/04/24 4:00 PM KENDRA MENDOZA CARD CHF RHONA During your visit today, we recorded the following information about you: Pulse Blood pressure Weight Height 88/minute 135/94 71.9 kg 1.651 m Kendra Mendoza MD 03/16/2024 6:00 PM [facility] [place] [facility] SECTION OF HEART FAILURE and CARDIAC TRANSPLANT MEDICINE OUTPATIENT VISIT DATE February 04, 2024 OUTPATIENT VISIT TYPE Consultation PRIMARY CARE PHYSICIAN: Jailyn Milan MD [address] [place] [phone] CHIEF COMPLAINT: HF NURSING INTAKE (Patient?s concerns and/or recent hospitalizations/ER visits): Branid Rahman JR is a 83 y/o male coming from [place], [place] for a cardiac evaluation PMHx of [...] 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 He saw Dr. Yeager in [place] who did not address shortness of breath [...] PAL/PROST (M (more content not included)... Normal [facility] ECG COMPLETEon 02-04-2024 ECG COMPLETE Ventricular Rate : 9 0 BPM QRS Duration : 116 ms Q-T Interval : 370 ms QTC Calculation(Bazett) : 452 ms Calculated R Belton : 41 degrees Calculated T Belton : -20 degrees ATRIAL FIBRILLATION WITH PREMATURE VENTRICULAR COMPLEXES NONSPECIFIC ST AND T WAVE ABNORMALITY ABNORMAL ECG Confirmed by ASAD PRESSLEY MD ([id number]) on 02/17/2024 9:49:18 PM NAME : BRANDI RAHMAN PID : [id number] : 1940 Gender : Male Race : ORD : [id number] Procedure Date : Feb 04 2024 14:39:43 [...] OSMAN RODRIGUEZ Acquired by : ALEJANDRO MURPHY [facility] VUE63qz 02-04-2024 ECG01 Ventricular Rate : 1 11 BPM QRS Duration : 100 ms Q-T Interval : 348 ms QTC Calculation(Bazett) : 473 ms Calculated R Belton : 26 degrees Calculated T [place] : -61 degrees ATRIAL FIBRILLATION WITH RAPID VENTRICULAR RESPONSE WITH PREMATURE VENTRICULAR COMPLEXES ABNORMAL ECG Confirmed by ASAD PRESSLEY MD ([id number]) on 02/18/2024 8:28:49 PM NAME : BRANDI RAHMAN PID : [id number] : 1940 Gender : Male Race : [...] : , Acquired by : Adele chan [facility] Office Visit (Cardiology)on 12-01-2022 Follow-up visit Diagnoses/Problems [...] a smoker Tobacco Use Screening; Status:Complete; Done: [id number] Patient Instructions Please bring all medicines, vitamins, [...] 500 MG CAPSTAKE 1 CAPSULE Daily Saw [place] 450 MG Oral CapsuleTAKE DIRECTED. Selenium 200 [...] Vital Signs Recorded: 01Dec2022 01:03PMRecorded: 01Dec2022 12:48PM Ijmqsfic19351, RUE, Sitting Rzfllwxlc0476, RUE, Sitting Heart Rate76, L Radial Height5 ft 6 in Ekazyx836 lb BMI Ydfzoipzio04.41 kg/m2 BSA Calculated1.89 Tobacco Useb) No Falls Screening (Age 18+)a) No falls within the (more content not included)... Normal [place] Tobacco Screening.on 023 Fall risk assessment a) No falls within the last year [facility] [place] 250 DO Work Phone: Tobacco use status [facility] b) No [facility] -[place] 250 DO Work Phone: [facility] echo transesophageal SHARON on 10-31-2022 [facility] echo transesophageal SHARON [facility] [place] [address] [place] [address] Echocardiogram Signed Patient: Brandi Rahman MR#: [id number] : 1940 Acct:[id number] Age/Sex: 82 / M ADM Date: 10/31/22 Loc: [place] Room: Type: [facility] Attending Dr: Avelina Rasmussen MD Ordering Provider: Avelina Rasmussen MD, [facility] Date of Service: 10/31/22/ ECH/ECH echo transesophageal SHARON: DYSPNEA, MR, A-FIB. Copies to: Avelina Rasmussen MD, [facility] Reason For Study: DYSPNEA, MR, A-FIB. [...] 10/31/22 1247 Signed By: Avelina Rasmussen MD, [facility] 10/31/22 1605 Normal [facility] Basic Metabolic Panelon 10-07 Anion gap [Moles/Vol] 9.3 mmol/L Normal 6.0-15.0 [facility] Comment on above: Performed By: #### B MP, CBC #### [facility] [address] Calcium [Mass/Vol] 9.1 mg/dL Normal 8.6-10.3 [facility] Comment on above: Result Comment: PERF ORMED BY: [place] [address] PATHOLOGIST STAFF RESPIRATORY THERAPIST LILLIAN TILLMAN M.D. Performed By: #### B MP, CBC #### [facility] [address] [place] [address] [place] Chloride [Moles/Vol] 101 mmol/L Normal 98-107 [facility] Comment on above: Performed By: #### B MP, CBC #### [facility] [address] [place] [id number] [place] CO2 [Moles/Vol] 34.3 mmol/L High 21.0-31.0 [facility] Comment on above: Performed By: #### B MP, CBC #### [facility] [address] [place] [id number] [place] Creatinine [Mass/Vol] 1.30 mg/dL Normal 0.70-1.30 [facility] Comment on above: Performed By: #### B MP, CBC #### [facility] [address] [place] [address] [place] GFR/1.73 sq M.predicted MDRD (S/P/Bld) [Vol rate/Area] 54.849 mL/min/{1.73_m2} Normal [facility] Comment on above: Performed By: #### B MP, CBC #### [facility] [address] [place] [address] [place] Glucose [Mass/Vol] 89 mg/dL Normal 70-100 [facility] Comment on above: Result Comment: [place] Glucose Reference Range is dependent on time and content of last meal. Glucose of more than 200 mg/dL in a nonstressed, ambulatory subject supports the diagnosis of Diabetes Mellitus. ADA recommended reference range Performed By: #### B MP, CBC #### [facility] [address] [place] [id number] [place] Potassium [Moles/Vol] 4.6 mmol/L Normal 3.5-5.1 [facility] Comment on above: Performed By: #### B MP, CBC #### [facility] [address] [place] [id number] [place] Sodium [Moles/Vol] 140 mmol/L Normal 136-145 [facility] Comment on above: Performed By: #### B MP, CBC #### [facility] [address] [place] [id number] [place] Urea nitrogen [Mass/Vol] 29 mg/dL High 7-25 [facility] Comment on above: Performed By: #### B MP, CBC #### [address] Complete Blood Count Auto Di ffon 10-27-2022 Basophils (Bld) [#/Vol] 0.1 10*3/uL Normal 0.0-0.2 [facility] Comment on above: Result Comment: PERF ORMED BY: [place] [address] PATHOLOGIST STAFF RESPIRATORY THERAPIST LILLIAN TILLMAN M.D. Performed By: #### B MP, CBC #### [address] Basophils/100 WBC (Bld) 1.1 % Normal . [facility] Comment on above: Performed By: #### B MP, CBC #### [address] Eosinophils (Bld) [#/Vol] 0.2 10*3/uL Normal 0.0-0.45 [facility] Comment on above: Performed By: #### B MP, CBC #### [address] Eosinophils/100 WBC (Bld) 3.2 % Normal . [facility] Comment on above: Performed By: #### B MP, CBC #### [address] Erythrocyte distribution width (RBC) [Ratio] 14.4 % Normal 12.0-14.8 [facility] Comment on above: Performed By: #### B MP, CBC #### [address] Hematocrit (Bld) [Volume fraction] 43.0 % Normal 38.8-50.0 [facility] Comment on above: Performed By: #### B MP, CBC #### [address] Hemoglobin (Bld) [Mass/Vol] 14.4 g/dL Normal 13.0-17.0 [facility] Comment on above: Performed By: #### B MP, CBC #### [address] [place] [address] [place] Lymphocytes (Bld) [#/Vol] 1.0 10*3/uL Normal 1.00-4.8 [facility] Comment on above: Performed By: #### B MP, CBC #### [facility] [address] [place] [address] [place] Lymphocytes/100 WBC (Bld) 21.1 % Normal . [facility] Comment on above: Performed By: #### B MP, CBC #### [facility] [address] [place] [address] [place] MCH (RBC) [Entitic mass] 33.8 pg Normal 27.5-35.2 [facility] Comment on above: Performed By: #### B MP, CBC #### [address] MCV (RBC) [Entitic vol] 100.8 fL Normal 83.5-101 [facility] Comment on above: Performed By: #### B MP, CBC #### [address] Mean Corpuscular HGB Conc 33.5 g/dL Normal 32.5-35.6 [facility] Comment on above: Performed By: #### B MP, CBC #### [place] [address] [place] Monocytes (Bld) [#/Vol] 0.6 10*3/uL Normal 0.0-0.8 [facility] Comment on above: Performed By: #### B MP, CBC #### [place] [address] [place] Monocytes/100 WBC (Bld) 11.8 % Normal . [facility] Comment on above: Performed By: #### B MP, CBC #### [facility] [address] [place] [address] [place] Neutrophils (Bld) [#/Vol] 2.9 10*3/uL Normal 1.8-7.7 [facility] Comment on above: Performed By: #### B MP, CBC #### [place] [address] Neutrophils/100 WBC (Bld) 62.8 % Normal . [facility] Comment on above: Performed By: #### B MP, CBC #### [address] NRBC% 0.1 /100{WBC} Normal 0-0.5 [facility] Comment on above: Performed By: #### B MP, CBC #### [address] Platelet mean volume (Bld) [Entitic vol] 8.0 fL Normal 6.6-10.1 [facility] Comment on above: Performed By: #### B MP, CBC #### [address] Platelets (Bld) [#/Vol] 213 10*3/uL Normal 150-450 [facility] Comment on above: Performed By: #### B MP, CBC #### [address] RBC (Bld) [#/Vol] 4.27 10*6/uL Normal 3.90-5.60 [facility] Comment on above: Performed By: #### B MP, CBC #### [address] WBC (Bld) [#/Vol] 4.7 10*3/uL Normal 4.1-10.5 [facility] Comment on above: Performed By: #### B FABIO, CBC #### [address] Office Visit (Cardiology)on 10-24-2022 Follow-up visit [...] an echocardiogram done recently at [facility] which I have the report reviewed. [...] Medication NameInst (more content not included)... Normal [place] Tobacco Screening.on 023 Adult depression screening assessment No [facility] [facility] 250 DO Work Phone: Fall risk assessment a) No falls within the last year -[facility] [facility] 250 DO Work Phone: Tobacco use status [facility] b) No -[facility] [facility] 250 DO Work Phone: ECHOCARDIO M/2D COMPLETEon 0 09-16-2022 ECHOCARDIO M/2D COMPLETE Patient: BRANDI RAHMAN Exam Date: 09/16/2022 : 1940 Gender:M Ordering : DR SAMANTHA RECIO . Admission #: [id number] Family : Order #: [id number] CLICK HERE TO VIEW EXAM ECHOCARDIOGRAM REPORT [...] 09/16/2022 at 20:23 Normal [facility] BNPon 09-09-2022 Natriuretic peptide B (Bld) [Mass/Vol] 154.0 pg/mL Normal <=1,800.0 [facility] Comment on above: Performed By: #### T SH, T7, CMP, BNP ####[facility] [address] [place] [address]DrRodolfo Gibson CBC AUTO DIFFon 09-09-2022 BASO # 0.0 103/ul Normal 0.0-0.1 [facility] Comment on above: Performed By: #### C BC ####[facility] [address] [place], [place] [address]DrRodolfo Gibson Basophils/100 WBC (Bld) 0.6 % Normal 0.2-2.0 [facility] Comment on above: Performed By: #### C BC ####[facility] [address] [place], [place] [address]DrRodolfo Gibson EO # 0.2 103/ul Normal 0.0-0.7 [facility] Comment on above: Performed By: #### C BC ####[facility] [address] [place], [place] [address]DrRodolfo Gibson Eosinophils/100 WBC (Bld) 4.1 % Normal 0.9-7.0 [facility] Comment on above: Performed By: #### C BC ####[facility] [address] [place], [place] [address]DrRodolfo Gibson Erythrocyte distribution width (RBC) [Ratio] 13.5 % Normal 11.0-15.0 [facility] Comment on above: Performed By: #### C BC ####[facility] [address] [place], [place] [address]DrRodolfo Gibson Hematocrit (Bld) [Volume fraction] 42.9 % Normal 42.0-54.0 [facility] Comment on above: Performed By: #### C BC ####[facility] [address] [place], [place] [address]Dr. Elver Gibson Hemoglobin (Bld) [Mass/Vol] 14.5 g/dL Normal 14.0-18.0 [facility] Comment on above: Performed By: #### C BC ####[facility] [facility] [address] [place] [address]Dr. Elver Gibson IG # 0.01 10e3/ul Normal 0.00-0.03 [facility] Comment on above: Performed By: #### C BC ####[facility] Szvk[address]ev[address] [place], [place] [address]Dr. Elver Gibson IG % 0.2 % Normal 0.0-0.5 [facility] Comment on above: Performed By: #### C BC ####[facility] Ktkrr[address] [place], [place] [address]DrRodolfo Gibson LYMPH # 1.2 103/ul Normal 1.2-3.8 [facility] Comment on above: Performed By: #### C BC ####[facility] Zlvwzdnveo[address] [place], [place] [address]Dr. Elver Gibson Lymphocytes/100 WBC (Bld) 21.8 % Normal 20.5-60.0 [facility] Comment on above: Performed By: #### C BC ####[facility] Dijgiyphot[address] [place], [place] [address]DrRodolfo Gibson MANUAL DIFF REQ NO Normal [facility] Comment on above: Performed By: #### C BC ####[facility] Dfzmwsspvk[address] [place], [place] [address]Dr. Elver Gibson MCH (RBC) [Entitic mass] 33.4 pg Normal 25.9-34.0 [facility] Comment on above: Performed By: #### C BC ####[facility] Immkqajjvo[address] [place], [place] [address]Dr. Elver Gibson MCHC (RBC) [Mass/Vol] 33.8 g/dL Normal 29.9-35.2 [facility] Comment on above: Performed By: #### C BC ####[facility] Upmky[address]uckp[address] [place], [place] [address]DrRodolfo Gibson MCV (RBC) [Entitic vol] 98.8 fL Critically high 80.0-94.0 [facility] Comment on above: Performed By: #### C BC ####[facility] [address] [place] [address] Elver Gibson MONO # 0.7 103/ul Normal 0.3-0.8 [facility] Comment on above: Performed By: #### C BC ####[facility] Uakfrffmtq[address] [place], [place] [address]DrRodolfo Elver Gibson Monocytes/100 WBC (Bld) 13.3 % Critically high 1.7-12.0 [facility] Comment on above: Performed By: #### C BC ####[facility] Dagjoretdq[address] [place], [place] [address]DrRodolfo Elver Gibson NEUT # 3.3 103/ul Normal 1.4-6.5 [facility] Comment on above: Performed By: #### C BC ####[facility] M[address]zrrt[address] [place], [place] [address]DrRodolfo Elver Gibson Neutrophils/100 WBC (Bld) 60.0 % Normal 43.0-75.0 [facility] Comment on above: Performed By: #### C BC ####[facility] Ogunyvsoru[address] [place], [place] [address]DrRodolfo Elver Gibson Platelet mean volume (Bld) [Entitic vol] 9.5 fL Normal 9.5-13.5 [facility] Comment on above: Performed By: #### C BC ####[facility] P[address]hcbehsr[address] [place], [place] [address]DrRodolfo Elver Arthur PLT 197 103/ul Normal 150-450 [facility] Comment on above: Performed By: #### C BC ####[facility] Okehe[address] [place], [place] [address]DrRodolfo Elver Arthur RBC 4.34 106/ul Critically low 4.70-6.10 [facility] Comment on above: Performed By: #### C BC ####[facility] Cjtdi[address]ysz[address] [place], [place] [address]DrRodolfo Gibson WBC 5.4 103/ul Normal 4.0-11.0 [facility] Comment on above: Performed By: #### C BC ####[facility] [address]ke[address] [place] [address]Dr. Elver Gibson FREE THYROXINE INDEX T7on FTI 2.21 Normal 1.30-4.50 [facility] Comment on above: Performed By: #### T SH, T7, CMP, BNP ####[facility] [address] [address]Dr. Elver Gibson T3U 35.0 % Normal 33.0-40.0 [facility] Comment on above: Performed By: #### T SH, T7, CMP, BNP ####[facility] [address] [place] [address]Dr. Elver Gibson T4 [Mass/Vol] 6.30 ug/dL Normal 4.50-12.10 [facility] Comment on above: Performed By: #### T SH, T7, CMP, BNP ####[facility] [address] [address]Dr. Elver Gibson PROF 14(COMP METB)on 023 Albumin [Mass/Vol] 3.8 g/dL Normal 3.4-5.0 [facility] Comment on above: Performed By: #### T SH, T7, CMP, BNP ####[facility] [address]zedcoq[address] [place] [address]Dr. Elver Gibson Albumin/Globulin [Mass ratio] 1.1 {ratio} Normal [facility] Comment on above: Performed By: #### T SH, T7, CMP, BNP ####[facility] Zp[address] [place] [address]Dr. Elver Gibson ALP [Catalytic activity/Vol] 74 U/L Normal 46-116 [facility] Comment on above: Performed By: #### T SH, T7, CMP, BNP ####[facility] [address] [place] [address]Dr. Elver Gibson ALT [Catalytic activity/Vol] 27 U/L Normal 16-63 [facility] Comment on above: Performed By: #### T SH, T7, CMP, BNP ####[facility] [address] [place] [address]Dr. Elver Gibson Anion gap [Moles/Vol] 10.8 mmol/L Normal [facility] Comment on above: Performed By: #### T SH, T7, CMP, BNP ####[facility] M[address] [place] [address]Dr. Elver Gibson AST [Catalytic activity/Vol] 30 U/L Normal 15-37 [facility] Comment on above: Performed By: #### T SH, T7, CMP, BNP ####[facility] Esbucwmzkm[address] [place], [place] [address]Dr. Elver Gibson Bilirubin [Mass/Vol] 0.7 mg/dL Normal 0.2-1.0 [facility] Comment on above: Performed By: #### T SH, T7, CMP, BNP ####[facility] Mbybipabzx[address] [place], [place] [address]Dr. Elver Gibson Calcium [Mass/Vol] 9.3 mg/dL Normal 8.5-10.1 [facility] Comment on above: Performed By: #### T SH, T7, CMP, BNP ####[facility] Hsdcysnhqk[address] [place], [place] [address]Dr. Elver Gibson Chloride [Moles/Vol] 104 mmol/L Normal 98-107 [facility] Comment on above: Performed By: #### T SH, T7, CMP, BNP ####[facility] Ihzektfame[address] [place], [place] [address]Dr. Elver Gibson CO2 [Moles/Vol] 31.9 mmol/L Normal 21.0-32.0 [facility] Comment on above: Performed By: #### T SH, T7, CMP, BNP ####[facility] Ahaklcefxg[address] [place], [place] [address]Dr. Elver Gibson Creatinine [Mass/Vol] 1.19 mg/dL Normal 0.70-1.30 [facility] Comment on above: Performed By: #### T SH, T7, CMP, BNP ####[facility] [address] [place] [address]Dr. Elver Gibson EGFR-AF COMORAN >60 Normal >=60 [facility] Comment on above: Performed By: #### T SH, T7, CMP, BNP ####[facility] T[address]qslrty[address] [address]Dr. Elver Gibson EGFR-NON AF COMORAN 59 mL/min/1.73m2 Critically low >=60 [facility] Comment on above: Performed By: #### T SH, T7, CMP, BNP ####[facility] [address] [place] [address]Dr. Elver Gibson Globulin (S) [Mass/Vol] 3.5 g/dL Normal [facility] Comment on above: Performed By: #### T SH, T7, CMP, BNP ####[facility] F[address]ds[address]de[address] [place] [address]Dr. Elver Gibson Glucose [Mass/Vol] 124 mg/dL Critically high 74-106 [facility] Comment on above: Performed By: #### T SH, T7, CMP, BNP ####[facility] [address] [place] [address]Dr. Elver Gibson Potassium [Moles/Vol] 4.7 mmol/L Normal 3.5-5.1 [facility] Comment on above: Performed By: #### T SH, T7, CMP, BNP ####[facility] [address]wkhs[address] [place] [address]Dr. Elver Gibson Protein [Mass/Vol] 7.3 g/dL Normal 6.4-8.2 [facility] Comment on above: Performed By: #### T SH, T7, CMP, BNP ####[facility] Xensaonvfd[address] [place] [address]Dr. Elver Gibson Sodium [Moles/Vol] 142 mmol/L Normal 136-145 [facility] Comment on above: Performed By: #### T SH, T7, CMP, BNP ####[facility] R[address]yxcf[address] [place] [address]Dr. Elver Gibson Urea nitrogen [Mass/Vol] 27.0 mg/dL Critically high 7.0-18.0 [facility] Comment on above: Performed By: #### T SH, T7, CMP, BNP ####[facility] [address]wcux[address] [place], [place] [address]XvRodolfo Gibson Urea nitrogen/Creatinine [Mass ratio] 22.7 mg/mg Normal [facility] Comment on above: Performed By: #### T SH, T7, CMP, BNP ####[facility] [address] [place], [place] [address]Tk. Elver Gibson TSHon 09-09-2022 TSH 1.455 uIU/mL Normal 0.358-3.740 [facility] Comment on above: Performed By: #### T SH, T7, CMP, BNP ####[facility] [address] [place], [place] [address]Zz. Elver Gibson XR CHEST 2 Von 09-09-2022 [...] Date: 2022-09-09 12:48 Normal [facility] INSULINon 02-15-2022 Insulin 11.3 uIU/mL Normal 2.6-24.9 [facility] Comment on above: Performed By: #### I NSULIN #### [facility] [address] [address] [address] Elver Gibson T4, T3U, FTI LABCORPon 02-15 Free Thyroxine Index 2.1 Normal 1.2-4.9 [facility] Comment on above: Performed By: #### T HYLC #### [facility] [address] [address] [address] Elver Gibson T3 Uptake 30 % Normal 24-39 [facility] Comment on above: Performed By: #### T HYLC #### [facility] [address] [address] [address] Elver Gibson T4 [Mass/Vol] 7.0 ug/dL Normal 4.5-12.0 [facility] Comment on above: Performed By: #### T HYLC #### [facility] [address] [place] [address] Dr. Elver Gibson BNPon 02-14-2022 Natriuretic peptide B (Bld) [Mass/Vol] 229.0 pg/mL Normal <=1,800.0 [facility] Comment on above: Performed By: #### B NATIONAL FACILITIES MANAGER, CMP, LIPID, TSH, URIC #### [facility] [address] [place] [address] Dr. Elver Gibson CBC AUTO DIFFon 02-14-2022 BASO # 0.0 103/ul Normal 0.0-0.1 [facility] Comment on above: Performed By: #### C BC ####[facility] Bibghflghl[address] [place], [place] [address]Dr. Elver Gibson Basophils/100 WBC (Bld) 0.7 % Normal 0.2-2.0 [facility] Comment on above: Performed By: #### C BC ####[facility] Alxpwxbbgy[address] [place], [place] [address]Dr. Elver Gibson EO # 0.2 103/ul Normal 0.0-0.7 [facility] Comment on above: Performed By: #### C BC ####[facility] Aehqtoxfpu[address] [place], [place] [address]Dr. Elver Gibson Eosinophils/100 WBC (Bld) 3.9 % Normal 0.9-7.0 [facility] Comment on above: Performed By: #### C BC ####[facility] Cqozailfua[address] [place], [place] [address]DrRodolfo Gibson Erythrocyte distribution width (RBC) [Ratio] 13.2 % Normal 11.0-15.0 [facility] Comment on above: Performed By: #### C BC ####[facility] [address]bs[address]ajhqc[address] [place], [place] [address]Dr. Elver Gibson Hematocrit (Bld) [Volume fraction] 42.9 % Normal 42.0-54.0 [facility] Comment on above: Performed By: #### C BC ####[facility] [address]umoqaz[address] [place] [address]Dr. Elver Gibson Hemoglobin (Bld) [Mass/Vol] 14.2 g/dL Normal 14.0-18.0 [facility] Comment on above: Performed By: #### C BC ####[facility] Nbiszhfuhr[address] [place], [place] [address]Dr. Elver Gibson IG # 0.01 10e3/ul Normal 0.00-0.03 [facility] Comment on above: Performed By: #### C BC ####[facility] Uxkymiztwn[address] [place], [place] [address]Dr. Elver Gibson IG % 0.2 % Normal 0.0-0.5 [facility] Comment on above: Performed By: #### C BC ####[facility] Ndxbhyccqa[address] [place], [place] [address]Dr. Elver Gibson LYMPH # 1.4 103/ul Normal 1.2-3.8 [facility] Comment on above: Performed By: #### C BC ####[facility] Ydndryinqp[address] [place], [place] [address]DrRodolfo Marianneyemi Gibson Lymphocytes/100 WBC (Bld) 24.0 % Normal 20.5-60.0 [facility] Comment on above: Performed By: #### C BC ####[facility] [address]yigqz[address] [place], [place] [address]DrRodolfo Gibson MANUAL DIFF REQ NO Normal [facility] Comment on above: Performed By: #### C BC ####[facility] Suezxwtgve[address] [place], [place] [address]Dr. Elver Gibson MCH (RBC) [Entitic mass] 33.3 pg Normal 25.9-34.0 [facility] Comment on above: Performed By: #### C BC ####[facility] Kbmdaiclgk[address] [place], [place] [address]Dr. Elver Gibson MCHC (RBC) [Mass/Vol] 33.1 g/dL Normal 29.9-35.2 [facility] Comment on above: Performed By: #### C BC ####[facility] Awiwloonbt[address] [place], [place] [address]DrRodolfo Gibson MCV (RBC) [Entitic vol] 100.7 fL Critically high 80.0-94.0 [facility] Comment on above: Performed By: #### C BC ####[facility] Ibryqvgqli[address] [place], [place] [address]DrRodolfo Gibson MONO # 0.7 103/ul Normal 0.3-0.8 [facility] Comment on above: Performed By: #### C BC ####[facility] [address]mmioptp[address] [place], [place] [address]DrRodolfo Gibson Monocytes/100 WBC (Bld) 12.7 % Critically high 1.7-12.0 [facility] Comment on above: Performed By: #### C BC ####[facility] Zrqhcnsfcu[address] [place], [place] [address]DrRodolfo Gibson NEUT # 3.3 103/ul Normal 1.4-6.5 [facility] Comment on above: Performed By: #### C BC ####[facility] [address]xflacxee[address] [place], [place] [address]DrRodolfo Gibson Neutrophils/100 WBC (Bld) 58.5 % Normal 43.0-75.0 [facility] Comment on above: Performed By: #### C BC ####[facility] [address]kplrvzrj[address] [place], [place] [address]DrRodolfo Gibson Platelet mean volume (Bld) [Entitic vol] 9.6 fL Normal 9.5-13.5 [facility] Comment on above: Performed By: #### C BC ####[facility] [address]tkilivxq[address] [place], [place] [address]DrRodolfo Gibson PLT 183 103/ul Normal 150-450 [facility] Comment on above: Performed By: #### C BC ####[facility] Ywzxvwmago[address] [place], [place] [address]DrRodolfo Gibson RBC 4.26 106/ul Critically low 4.70-6.10 [facility] Comment on above: Performed By: #### C BC ####[facility] [address]av[address] [place], [place] [address]BpDr. Elver Gibson WBC 5.7 103/ul Normal 4.0-11.0 [facility] Comment on above: Performed By: #### C BC ####[facility] [address]sw[address]myokuu27[address] [place], [place] [address]FfDr. Elver Gibson GLYCOHEMOGLOBIN A1Con 2021 ADA RECOMMENDATION SEE BELOW Normal [facility] Comment on above: Result Comment: ADA RECOMMENDED LIMIT 4.0 - 6.0 ADA THERAPEUTIC TARGET < 7.0 ACTION SUGGESTED > 7.0 Performed By: #### A 1C #### [facility] [address] [address] [address] Elver Gibson Glucose [Mass/Vol] 108 mg/dL Normal [facility] Comment on above: Performed By: #### A 1C #### [facility] [address] [address] [address] Elver Gibson HbA1c (Bld) [Mass fraction] 5.4 % Normal 4.5-6.2 [facility] Comment on above: Performed By: #### A 1C #### [facility] [address] [address] [address] Elver Gibson LIPID PROFILEon 02-14-2022 CHOL-HDL RATIO NORM SEE BELOW Normal [facility] Comment on above: Result Comment: 3.3 - 4.4 LOW RISK 4.4 - 7.1 AVERAGE RISK 7.1 - 11.0 MODERATE RISK >11.0 HIGH RISK Performed By: #### B NATIONAL FACILITIES MANAGER, CMP, LIPID, TSH, URIC #### [facility] [address] [address] [address] Elver Gibson Cholesterol [Mass/Vol] 174 mg/dL Normal <=200 [facility] Comment on above: Performed By: #### B NATIONAL FACILITIES MANAGER, CMP, LIPID, TSH, URIC #### [facility] [address] [address] [address] Elver Gibson Cholesterol in HDL [Mass/Vol] 63 mg/dL Critically high 40-60 [facility] Comment on above: Performed By: #### B NATIONAL FACILITIES MANAGER, CMP, LIPID, TSH, URIC #### [facility] [address] [place] [address] Dr. Elver Gibson Cholesterol in LDL [Mass/Vol] 100.4 mg/dL Normal [facility] Comment on above: Performed By: #### B NATIONAL FACILITIES MANAGER, CMP, LIPID, TSH, URIC #### [facility] [address] [address] [address] Elver Gibson Cholesterol.total/Cho lesterol in HDL [Mass ratio] 2.8 {ratio} Normal [facility] Comment on above: Performed By: #### B NATIONAL FACILITIES MANAGER, CMP, LIPID, TSH, URIC #### [facility] [address] [place] [address] Dr. Elver Gibson HDL NORMAL > or = 60 mg/dl - LO W CARDIOVASCULAR RISK <40 mg/dl - HIGH CARDIOVASCULAR RISK Normal [facility] Comment on above: Performed By: #### B NATIONAL FACILITIES MANAGER, CMP, LIPID, TSH, URIC #### [facility] [address] [place] [address] Dr. Elver Gibson LDL CALC NORMAL SEE BELOW Normal [facility] Comment on above: Result Comment: <100 mg/dl OPTIMAL 100 - 129 mg/dl NEAR OR ABOVE OPTIMAL 130 - 159 mg/dl BORDERLINE HIGH 160 - 189 mg/dl HIGH >190 mg/dl VERY HIGH Performed By: #### B NATIONAL FACILITIES MANAGER, CMP, LIPID, TSH, URIC #### [facility] [address] [address] [address] Elver Gibson Triglyceride [Mass/Vol] 53 mg/dL Normal <=150 [facility] Comment on above: Performed By: #### B NATIONAL FACILITIES MANAGER, CMP, LIPID, TSH, URIC #### [facility] [address] [place] [address] Dr. Elver Gibson VLDL CALC 10.6 mg/dL Normal [facility] Comment on above: Performed By: #### B NATIONAL FACILITIES MANAGER, CMP, LIPID, TSH, URIC #### [facility] [address] [place] [address] Dr. Elver Gibson PROF 14(COMP METB)on 022 Albumin [Mass/Vol] 3.7 g/dL Normal 3.4-5.0 [facility] Comment on above: Performed By: #### B NATIONAL FACILITIES MANAGER, CMP, LIPID, TSH, URIC #### [facility] [address] [place] [address] Dr. Elver Gibson Albumin/Globulin [Mass ratio] 1.1 {ratio} Normal [facility] Comment on above: Performed By: #### B NATIONAL FACILITIES MANAGER, CMP, LIPID, TSH, URIC #### [facility] [address] [place] [address] Dr. Elver Gibson ALP [Catalytic activity/Vol] 64 U/L Normal 46-116 [facility] Comment on above: Performed By: #### B NATIONAL FACILITIES MANAGER, CMP, LIPID, TSH, URIC #### [facility] [address] [place] [address] Dr. Elver Gibson ALT [Catalytic activity/Vol] 27 U/L Normal 16-63 [facility] Comment on above: Performed By: #### B NATIONAL FACILITIES MANAGER, CMP, LIPID, TSH, URIC #### [facility] [address] [place] [address] Dr. Elver Gibson Anion gap [Moles/Vol] 9.7 mmol/L Normal [facility] Comment on above: Performed By: #### B NATIONAL FACILITIES MANAGER, CMP, LIPID, TSH, URIC #### [facility] [address] [place] [address] Dr. Elver Gibson AST [Catalytic activity/Vol] 30 U/L Normal 15-37 [facility] Comment on above: Performed By: #### B NATIONAL FACILITIES MANAGER, CMP, LIPID, TSH, URIC #### [facility] [address] [place] [address] Dr. Elver Gibson Bilirubin [Mass/Vol] 0.7 mg/dL Normal 0.2-1.0 [facility] Comment on above: Performed By: #### B NATIONAL FACILITIES MANAGER, CMP, LIPID, TSH, URIC #### [facility] [address] [place] [address] Dr. Elver Gibson Calcium [Mass/Vol] 8.9 mg/dL Normal 8.5-10.1 [facility] Comment on above: Performed By: #### B NATIONAL FACILITIES MANAGER, CMP, LIPID, TSH, URIC #### [facility] [address] [place] [address] Dr. Elver Gibson Chloride [Moles/Vol] 104 mmol/L Normal 98-107 [facility] Comment on above: Performed By: #### B NATIONAL FACILITIES MANAGER, CMP, LIPID, TSH, URIC #### [facility] [address] [place] [address] Dr. Elver Gibson CO2 [Moles/Vol] 31.8 mmol/L Normal 21.0-32.0 [facility] Comment on above: Performed By: #### B NATIONAL FACILITIES MANAGER, CMP, LIPID, TSH, URIC #### [facility] [address] [place] [address] Dr. Elver Gibson Creatinine [Mass/Vol] 1.19 mg/dL Normal 0.70-1.30 [facility] Comment on above: Performed By: #### B NATIONAL FACILITIES MANAGER, CMP, LIPID, TSH, URIC #### [facility] [address] [place] [address] Dr. Elver Gibson EGFR-AF COMORAN >60 Normal >=60 [facility] Comment on above: Performed By: #### B NATIONAL FACILITIES MANAGER, CMP, LIPID, TSH, URIC #### [facility] [address] [place] [address] Dr. Elver Gibson EGFR-NON AF COMORAN 59 mL/min/1.73m2 Critically low >=60 [facility] Comment on above: Performed By: #### B NATIONAL FACILITIES MANAGER, CMP, LIPID, TSH, URIC #### [facility] [address] [place] [address] Dr. Elver Gibson Globulin (S) [Mass/Vol] 3.4 g/dL Normal [facility] Comment on above: Performed By: #### B NATIONAL FACILITIES MANAGER, CMP, LIPID, TSH, URIC #### [facility] [address] [place] [address] Dr. Elver Gibson Glucose [Mass/Vol] 97 mg/dL Normal 74-106 [facility] Comment on above: Performed By: #### B NATIONAL FACILITIES MANAGER, CMP, LIPID, TSH, URIC #### [facility] [address] [place] [address] Dr. Elver Gibson Potassium [Moles/Vol] 4.5 mmol/L Normal 3.5-5.1 [facility] Comment on above: Performed By: #### B NATIONAL FACILITIES MANAGER, CMP, LIPID, TSH, URIC #### [facility] [address] [place] [address] Dr. Elver Gibson Protein [Mass/Vol] 7.1 g/dL Normal 6.4-8.2 [facility] Comment on above: Performed By: #### B NATIONAL FACILITIES MANAGER, CMP, LIPID, TSH, URIC #### [facility] [address] [place] [address] Dr. Elver Gibson Sodium [Moles/Vol] 141 mmol/L Normal 136-145 [facility] Comment on above: Performed By: #### B NATIONAL FACILITIES MANAGER, CMP, LIPID, TSH, URIC #### [facility] [address] [place] [address] Dr. Elver Gibson Urea nitrogen [Mass/Vol] 31.0 mg/dL Critically high 7.0-18.0 [facility] Comment on above: Performed By: #### B NATIONAL FACILITIES MANAGER, CMP, LIPID, TSH, URIC #### [facility] [address] [place] [address] Dr. Elver Gibson Urea nitrogen/Creatinine [Mass ratio] 26.1 mg/mg Normal [facility] Comment on above: Performed By: #### B NATIONAL FACILITIES MANAGER, CMP, LIPID, TSH, URIC #### [facility] [address] [place] [address] Dr. Elver Gibson TSHon 02-14-2022 TSH 1.829 uIU/mL Normal 0.358-3.740 [facility] Comment on above: Performed By: #### B NATIONAL FACILITIES MANAGER, CMP, LIPID, TSH, URIC #### [facility] [address] [place] [address] Dr. Elver Gibson URIC ACID SERUMon 02-14-2022 Urate [Mass/Vol] 7.1 mg/dL Normal 3.5-7.2 [facility] Comment on above: Performed By: #### B NATIONAL FACILITIES MANAGER, CMP, LIPID, TSH, URIC #### [facility] [address] [address] [address] Elver Gibson Ambulatory Clinical Summaryo n 02-28-2020 Ambulatory Clinical Summary {[id number] Normal [facility] Ambulatory Clinical Summary {[id number] Normal [facility] Patient Educationon 02-28-20 Patient Education Family [...] severe dizz (more content not included)... Normal [facility] Urology Office/Clinic Noteon 02-28-2020 Urology Office/Clinic [...] Contact Information Arsalan Ryder MD, Roger Agosto [address] [place] [phone]- Additional Instructions: 1yr. w/ KUB and PSA [...] intravenous solution, IV, Once losartan, Oral, Daily [place]-3 Osteo Bi-Flex selenium, Oral, Daily Vitamin C, [...] Negative (09 (more content not included)... Normal [facility] Comment on above: Result Comment: Elec tronically Signed By: Arsalan Ryder MD, Roger Agosto\.br\Date and Time Signed: 02/28/20 10:32 EDT\.br\Electronically Co-Signed By: Marichuy Hernández MA\.br\Date and Time Co-Signed: 02/28/20 10:21 EDT No Panel Information [facility] Vital Signs Date Time Vital Sign Value Performing Clinician Dino beltre 03-18-2024 10:15-0400 Body height 165.1 cm Compa Reay TECHNICAL EDUCATION TEACHER.CN P Work Phone: [facility] 03-18-2024 10:15-0400 Body mass index (BMI) [Ratio] 26.01 kg/m2 Compa Reay TECHNICAL EDUCATION TEACHER.CERAMIC RESEARCH ENGINEER Work Phone: [facility] 03-18-2024 10:15-0400 Body weight 70.9 kg Compa Reay TECHNICAL EDUCATION TEACHER.CN P Work Phone: [facility] 03-18-2024 10:15-0400 Diastolic blood pressure 86 mm[Hg] Compa Reay TECHNICAL EDUCATION TEACHER.CERAMIC RESEARCH ENGINEER Work Phone: [facility] 03-18-2024 10:15-0400 Heart rate 69 /min Compa Reay TECHNICAL EDUCATION TEACHER.CN P Work Phone: [facility] 03-18-2024 10:15-0400 SaO2% (BldA) [Mass fraction] 97 % Compa Reay TECHNICAL EDUCATION TEACHER.CERAMIC RESEARCH ENGINEER Work Phone: [facility] 03-18-2024 10:15-0400 Systolic blood pressure 147 mm[Hg] Compa Reay TECHNICAL EDUCATION TEACHER.CERAMIC RESEARCH ENGINEER Work Phone: [facility] 02-09-2024 14:40-0400 Diastolic blood pressure 76 mm[Hg] Transesophageal Main [facility] 02-09-2024 14:40-0400 Heart rate 79 /min Transesophageal [facility] 02-09-2024 14:40-0400 Respiratory rate 16 /min Transesophageal [facility] 02-09-2024 14:40-0400 SaO2% (BldA) [Mass fraction] 91 % Transesophageal [facility] 02-09-2024 14:40-0400 Systolic blood pressure 115 mm[Hg] Transesophageal [facility] 02-09-2024 12:24-0400 Body temperature 97.7 [degF] Transesophageal [facility] 02-04-2024 16:16-0400 Body height 165.1 cm Kendra Mendoza MD Work Phone: [facility] 02-04-2024 16:16-0400 Body mass index (BMI) [Ratio] 26.38 kg/m2 Kendra Mendoza MD Work Phone: [facility] 02-04-2024 16:16-0400 Body weight 71.89 kg Kendra Mendoza MD Work Phone: [facility] 02-04-2024 16:16-0400 Diastolic blood pressure 94 mm[Hg] Kendra Mendoza MD Work Phone: [facility] 02-04-2024 16:16-0400 Heart rate 88 /min Kendra Mendoza MD Work Phone: [facility] 02-04-2024 16:16-0400 SaO2% (BldA) [Mass fraction] 96 % Kendra Mendoza MD Work Phone: [facility] 02-04-2024 16:16-0400 Systolic blood pressure 135 mm[Hg] Kendra Mendoza MD Work Phone: [facility] 01-28-2023 13:33-0400 Body height 167.64 cm Samantha Ziegler Hoy Work Phone: [facility] [place] 250 DO Work Phone: 01-28-2023 13:33-0400 Body mass index (BMI) [Ratio] 27.92 kg/m2 Samantha Toney Hoy Work Phone: [facility] 250 DO Work Phone: 01-28-2023 13:33-0400 Body surface area Derived from formula 1.88 m2 Samantha M Hoy Work Phone: [facility] 250 DO Work Phone: 01-28-2023 13:33-0400 Body weight 78.47 kg Samantha Toney Hoy Work Phone: [facility] 250 DO Work Phone: 01-28-2023 13:33-0400 Diastolic blood pressure 92 mm[Hg] Samantha M Hoy Work Phone: [facility] 250 DO Work Phone: 01-28-2023 13:33-0400 Diastolic blood pressure 90 mm[Hg] Samantha M Hoy Work Phone: [facility] 250 DO Work Phone: 01-28-2023 13:33-0400 Diastolic blood pressure 80 mm[Hg] Samantha M Hoy Work Phone: [facility] 250 DO Work Phone: 01-28-2023 13:33-0400 Heart rate 84 /min Samantha M Hoy Work Phone: [facility] 250 DO Work Phone: 01-28-2023 13:33-0400 Systolic blood pressure 162 mm[Hg] Samantha M Hoy Work Phone: [facility] 250 DO Work Phone: 01-28-2023 13:33-0400 Systolic blood pressure 152 mm[Hg] Samantha M Hoy Work Phone: [facility] 250 DO Work Phone: 01-28-2023 13:33-0400 Systolic blood pressure 124 mm[Hg] Samantha M Hoy Work Phone: [facility] 250 DO Work Phone: 01-28-2023 13:33-0400 91 1 Samantha M Hoy Work Phone: [facility] 250 DO Work Phone: Comment on above: PULRateLy 01-28-2023 13:33-0400 84 1 Samantha M Hoy Work Phone: [facility] 250 DO Work Phone: Comment on above: PULRateSit 01-28-2023 13:33-0400 90 1 Samantha M Hoy Work Phone: [facility] 250 DO Work Phone: Comment on above: PULRateSt 01-28-2023 13:28-0400 Body height 167.64 cm Samantha M Hoy Work Phone: [facility] 250 DO Work Phone: 01-28-2023 13:28-0400 Body mass index (BMI) [Ratio] 27.92 kg/m2 Samantha M Hoy Work Phone: [facility] 250 DO Work Phone: 01-28-2023 13:28-0400 Body surface area Derived from formula 1.88 m2 Samantha M Hoy Work Phone: [facility] 250 DO Work Phone: 01-28-2023 13:28-0400 Body weight 78.47 kg Samantha M Hoy Work Phone: [facility] 250 DO Work Phone: 01-28-2023 13:28-0400 Diastolic blood pressure 90 mm[Hg] Samantha M Hoy Work Phone: [facility] 250 DO Work Phone: 01-28-2023 13:28-0400 Heart rate 91 /min Samantha M Hoy Work Phone: [facility] 250 DO Work Phone: 01-28-2023 13:28-0400 Systolic blood pressure 152 mm[Hg] Samantha M Hoy Work Phone: [facility] 250 DO Work Phone: 12-01-2022 13:03-0400 Diastolic blood pressure 60 mm[Hg] Samantha M Hoy Work Phone: [facility]Qewfpcmryz-Fr [place] 250 DO Work Phone: 12-01-2022 13:03-0400 Systolic blood pressure 120 mm[Hg] Samantha M Hoy Work Phone: VN-Fpuldlblkb-Iq [place] 250 DO Work Phone: 12-01-2022 12:48-0400 Body height 167.64 cm Samantha M Hoy Work Phone: PW-Wgwylwirfj-Me [place] 250 DO Work Phone: 12-01-2022 12:48-0400 Body mass index (BMI) [Ratio] 28.41 kg/m2 Samantha M Hoy Work Phone: TO-Vrisjmzyis-Si [place] 250 DO Work Phone: 12-01-2022 12:48-0400 Body surface area Derived from formula 1.89 m2 Samantha M Hoy Work Phone: MU-Awvaxpjfof-Jl [place] 250 DO Work Phone: 12-01-2022 12:48-0400 Body weight 79.83 kg Samantha M Hoy Work Phone: AQ-Zvuekkgedn-Ax [place] 250 DO Work Phone: 12-01-2022 12:48-0400 Diastolic blood pressure 60 mm[Hg] Samantha M Hoy Work Phone: WX-Zkomoewvzj-Ix [place] 250 DO Work Phone: 12-01-2022 12:48-0400 Heart rate 76 /min Samantha M Hoy Work Phone: II-Wphumfekgr-Rq [place] 250 DO Work Phone: 12-01-2022 12:48-0400 Systolic blood pressure 94 mm[Hg] Samantha M Hoy Work Phone: JJ-Ozkxogvrxd-Ae [place] 250 DO Work Phone: 11-04-2022 07:53-0400 65 1 Samantha M Hoy Work Phone: [facility] 250 DO Work Phone: Comment on above: [id number] 10-24-2022 10:01-0400 Body height 175.26 cm Samantha M Hoy Work Phone: [facility] 250 DO Work Phone: 10-24-2022 10:01-0400 Body mass index (BMI) [Ratio] 26.58 kg/m2 Samantha M Hoy Work Phone: [facility] 250 DO Work Phone: 10-24-2022 10:01-0400 Body surface area Derived from formula 1.98 m2 Samantha M Hoy Work Phone: [facility] 250 DO Work Phone: 10-24-2022 10:01-0400 Body weight 81.65 kg Samantha M Hoy Work Phone: [facility] 250 DO Work Phone: 10-24-2022 10:01-0400 Diastolic blood pressure 82 mm[Hg] Samantha M Hoy Work Phone: [facility] 250 DO Work Phone: 10-24-2022 10:01-0400 Heart rate 84 /min Samantha M Hoy Work Phone: [facility] 250 DO Work Phone: 10-24-2022 10:01-0400 Systolic blood pressure 144 mm[Hg] Samantha M Hoy Work Phone: [facility] 250 DO Work Phone: Encounters Encounter Date Encounter Type Care Provider Facility Start: 03-18-2024 End: 03-18-2024 Patient encounter procedure Compa Corcoran TECHNICAL EDUCATION TEACHER.CERAMIC RESEARCH ENGINEER Work Phone: Cardiology Comment on above: Chronic systolic (co ngestive) heart failure (HCC) (Primary Dx) Start: 03-18-2024 End: 03-18-[address] [facility] Facility:[facility] Start: 02-16-2024 End: 02-16-2024 Telephone encounter Kendra Mendoza MD Work Phone: Cardiology Start: 02-09-2024 End: 02-09-[address] [facility] Facility:[facility] Start: 02-09-2024 End: 02-09-2024 Patient encounter procedure Transesophageal Echo Card Main Cardiology Comment on above: Paroxysmal atrial fi brillation (HCC) Start: 02-09-2024 End: 02-09-2024 [facility] Facility:[facility] Start: 02-05-2024 End: 02-05-2024 Orders Only Arsen Talavera MD Work Phone: Cardiology Comment on above: Paroxysmal atrial fi brillation (HCC) (Primary Dx) Patient Education (E PS- SHARON/DCC) Appointment (EPS- TE E/DCC) Start: 02-04-2024 End: 02-04-2024 Patient encounter procedure Kendra eMndoza MD Work Phone: Cardiology Comment on above: Paroxysmal atrial fi brillation (HCC) (Primary Dx); Chronic systolic (congestive) heart failure (HCC); Essential hypertension, benign; Tachycardia induced cardiomyopathy (HCC); Cardiomyopathy, nonischemic (HCC); Non-rheumatic mitral regurgitation; Other specified hypothyroidism; Other hyperlipidemia; Carpal tunnel syndrome, unspecified laterality; History of partial colectomy; History of gastrointestinal bleeding; Chronic anticoagulation Start: 02-04-2024 End: 02-05-2024 ambulatory SELF Facility:[facility] Start: 01-08-2024 End: 01-08-2024 ambulatory [facility] Start: 12-31-2023 End: 12-31-2023 ambulatory HUSEYIN Ardon [facility] Start: 12-25-2023 End: 12-25-2023 ambulatory [facility] Ambulatory Start: 05-25-2023 End: 05-25-2023 ambulatory AVELINA Ziegler [facility] Ambulatory Start: 01-28-2023 Patient encounter procedure Samantha Recio Work Phone: [facility] 250 DO Work Phone: Start: 01-28-[address] Avelina Rasmussen Facility: Start: 12-01-2022 Office outpatient vi sit 25 minutes Samantha Recio Work Phone: [facility] y 250 DO Work Phone: Start: 12-01-[address] Avelina Rasmussen Facility: Start: 10-31-[address] Avelina Weeks amokporter Rasmussen Facility:[id number] Start: 10-31-2022 End: 10-31-2022 ambulatory Quan [facility] Facility:[facility] Start: 10-31-2022 Rx Renewal Samantha M Fracisconick Work Phone: [facility] 250 DO Work Phone: Start: 10-27-2022 End: 10-27-2022 ambulatory Quan Rasmussen Facility:[facility] Start: 10-24-[address] Samantha [...] Work Phone: Start: 02-14-[address] RSOANNA RECIO . Comment on above: Performed By: #### P [facility] ####[facility] [id number] [place], [place] [address]BsRodolfo Gibson Start: 11-14-2021 End: 11-14-2021 Computerized ophthalmic [...] Start: 02-08-2027 Diabetes Screening Diabetes Screenin g [facility] Start: 05-24-2024 End: 05-24-2024 ambulatory 05/24/2024 9:15 AM EST Results Only [facility] [address] [place] [address] DX: Chronic systolic heart failure [facility] Comment on above: DX: Chronic systolic heart failure Start: 05-24-2024 End: 05-24-2024 Patient encounter procedure Vascular Medicine Comment on above: DX: Chronic systolic heart failure Start: 05-09-2024 End: 05-09-2024 ambulatory 05/09/2024 10:45 AM EST [facility] [id number] Tineo MD [address] [facility] [address] [place] [address] DX: AFIB Cardiology Comment on above: DX: AFIB Start: 05-06-2024 End: 02-03-2025 Echocardiography ECHO Cardiology Routine Paroxysmal atrial fibrillation (HCC) Chronic systolic (congestive) heart failure (HCC) Expected: 05/06/2024, Expires: 02/03/2025 [facility] Comment on above: Expected: 05/06/2024 , Expires: 02/03/2025 Start: 03-18-2024 End: 03-18-2024 Patient encounter procedure Cardiology Comment on above: Paroxysmal atrial fi brillation (HCC) [I48.0] Start: 03-18-2024 End: 03-18-2024 ambulatory 03/18/2024 8:00 AM EDT Results Only Cardiology [address] [place] [address] Paroxysmal atrial fibrillation (HCC) [I48.0] Cardiology Comment on above: Paroxysmal atrial fi brillation (HCC) [I48.0] Start: 02-09-2024 End: 02-09-2024 Admission to same day surgery center 02/09/2024 5:15 PM EDT - 02/09/2024 6:15 PM EDT Surgery HOSP EP Lab [address] [place] [address] Rd Tineo MD [address] [facility] [address] [place] [address] 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 EXTERNAL ELECTIVE HOSP EP Lab Comment on above: 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 TRACTOR DISTRIBUTOR AL ELECTIVE Start: 02-09-2024 End: 02-09-2024 Cardioversion elective arrhythmia external 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 EXTERNAL ELECTIVE Persistent atrial fibrillation (HCC) 02/09/2024 5:15 PM EDT EP LAB Start: 02-09-2024 Subsequent hospital visit by physician 02/09/2024 5:15 PM EDT Hospital Encounter HOSP EP Lab [address] [place] [address] Rd Tineo MD [address] [facility] [address] [address] [place] [address] Persistent atrial fibrillation (HCC) [I48.19] HOSP EP Lab Comment on above: Persistent atrial fi brillation (HCC) [I48.19] Start: 02-09-2024 End: 02-09-2024 Cardioversion elective arrhythmia external 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 EXTERNAL ELECTIVE Persistent atrial fibrillation (HCC) 02/09/2024 3:35 PM EDT EP LAB Start: 02-09-2024 End: 02-09-2024 Patient encounter procedure Admitting Comment on above: interview DCC DCCV Start: 02-07-2024 Covid-19 Vaccine () Covid-19 Vaccine () [facility] Start: 02-07-2024 Covid-19 Vaccine () Covid-19 Vaccine () [facility] Start: 02-07-2024 Influenza vaccination Influenza Vacc ine (#1) [facility] Start: 02-04-2024 End: 05-05-2024 Comprehensive metabolic 2000 panel - Serum or Plasma COMPREHENSIVE METABOLIC PANEL Lab STAT Paroxysmal atrial fibrillation (HCC) Chronic systolic (congestive) heart failure (HCC) Expected: 02/04/2024, Expires: 05/05/2024 [facility] Comment on above: Expected: 02/04/2024 , Expires: 05/05/2024 Start: 02-04-2024 End: 05-05-2024 Natriuretic peptide.B prohormone N-Terminal [Mass/volume] in Serum or Plasma NT PRO BNP Lab STAT Paroxysmal atrial fibrillation (HCC) Chronic systolic (congestive) heart failure (HCC) Expected: 02/04/2024, Expires: 05/05/2024 [facility] Comment on above: Expected: 02/04/2024 , Expires: 05/05/2024 Start: 02-04-2024 End: 05-05-2024 Thyrotropin [Units/volume] in Serum or Plasma THYROID STIMULATING HORMONE Lab Routine Paroxysmal atrial fibrillation (HCC) Chronic systolic (congestive) heart failure (HCC) Expected: 02/04/2024, Expires: 05/05/2024 [facility] Comment on above: Expected: 02/04/2024 , Expires: 05/05/2024 Start: 06-08-2023 Advance Directive Discussion Advance Directive Discussion [facility] Start: 05-20-2023 FUV, Provider: Avelina Rasmussen, Status: Riccardo, Time: 9:10 AM FUV, Provider: Avelina Rasmussen, Status: Pen, Time: 9:10 AM [facility] yung 250 DO Work Phone: Start: 02-06-2023 Covid-19 Vaccine ( season) Covid-19 Vaccine ( season) [facility] Start: 12-01-2022 FUV, Provider: Avelina Rasmussen, Status: Pen, Time: 1:00 PM FUV, Provider: Avelina Rasmussen, Status: Pen, Time: 1:00 PM [facility] 250 DO Work Phone: Start: 11-29-2022 End: 05-08-2023 OCT MACULA CIRRUS OU (BOTH EYES) OCT MACULA CIRRUS OU (BOTH EYES) OPHT Imaging Routine Epiretinal membrane (ERM) of both eyes Nevus of choroid of left eye Expected: 11/29/2022, Expires: 05/08/2023 [facility] Work Phone: Comment on above: Expected: 11/29/2022 , Expires: 05/08/2023 Start: 02-06-2022 Influenza vaccination INFLUENZA (Sea son Ended) [facility] Start: 08-17-2021 COVID-19 VACCINE (4 - Booster for Moderna series) COVID-19 VACCINE (4 - Booster for Moderna series) [facility] Start: 06-08-2021 ADVANCE DIRECTIVE DISCUSSION ADVANCE DIRECTIVE DISCUSSION [facility] Start: 09-29-2015 RSV Vaccine (1 - 1-d ose 75+ series) RSV Vaccine (1 - 1-dose 75+ series) [facility] Start: 09-10-2006 DIABETES SCREEN DIABETES SCREEN [facility] Start: 09-10-2006 Diabetes Screening Diabetes Screenin g [facility] Start: 2005 Pneumococcal Vaccine : 65+ (1 of 1 - PCV) Pneumococcal Vaccine: 65+ (1 of 1 - PCV) [facility] Start: 2005 PNEUMOCOCCAL: 65+ (1 - PCV) PNEUMOCOCCAL: 65+ (1 - PCV) [facility] Start: 2000 RSV Vaccine (1 - 1-d ose 60+ series) RSV Vaccine (1 - 1-dose 60+ series) [facility] Start: 1990 SHINGRIX VACCINE (1 of 2) HOLLINS GRIX VACCINE (1 of 2) [facility] Start: 09-29-1959 Urine microalbumin profile [facility] Start: 1958 Anxiety Screening Anxiety Screening [facility] Start: 1958 Depression Screening Depression Scre ening [facility] Start: 1946 Pneumococcal Vaccine : 65+ (1 of 2 - PCV) Pneumococcal Vaccine: 65+ (1 of 2 - PCV) [facility] Cardioversion electi ve arrhythmia internal spx 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, ELECTIVE, ELECTRICAL Cardiology Routine Paroxysmal atrial fibrillation (HCC) Ordered: 02/04/2024 [facility] Work Phone: Comment on above: Ordered: 02/04/2024 End: 02-04-2025 ECG COMPLETE ECG COMPLETE ECG Routine Paroxysmal atrial fibrillation (HCC) 1 Occurrences starting 02/05/2024 until 02/04/2025 [facility] Work Phone: Comment on above: 1 Occurrences starti ng 02/05/2024 until 02/04/2025 End: 02-03-2025 ECHO TRANSESOPHAGEAL ECHO TRANSESOPHAGEAL Cardiology Routine Paroxysmal atrial fibrillation (HCC) 1 Occurrences starting 02/04/2024 until 02/03/2025 [facility] Comment on above: 1 Occurrences starti ng 02/04/2024 until 02/03/2025 Immunizations Immunization Date Immunization Notes Care Provider Glenroy pleitez 04-19-2021 Moderna COVID-19 Vac cine 100 MCG/0.5ML Intramuscular Suspension [employer] Work Phone: [facility] [place] 250 DO Work Phone: 2020 Moderna COVID-19 Vac cine 100 MCG/0.5ML Intramuscular Suspension [employer] Work Phone: [facility] [place] 250 DO Work Phone: 08-31-2020 Moderna COVID-19 Vac cine 100 MCG/0.5ML Intramuscular Suspension Samantha Marqeta Work Phone: [facility] [employer] 250 DO Work Phone: 04-07-2017 influenza virus vacc ine, unspecified formulation Samantha Recio Work Phone: [facility] 250 DO Work Phone: 03-25-2016 influenza virus vacc ine, unspecified formulation Samantha Recio Work Phone: [facility] 250 DO Work Phone: 03-17-2016 influenza, high dose seasonal, preservative-free [facility] Work Phone: Payers Date Payer Category Payer Self-pay 2020 Unknown MMO MMO MEDICARE SUPPLEMENT [id number] 2020-Present [phone] [address] [place] [address] Indemnity [id number] 2020 Unknown 2005 Medicare MEDICARE MEDICAR E A AND B [id number] 2005-Present [phone] [address] [address] [place] [address] Medicare [id number] 1959 Medicare [id number] 1959 Unknown [id number] 1940 Unknown [id number] 1940 Unknown [id number] [id number] 1940 Unknown [id number] 1940 Unknown [id number] [id number] 1940 Unknown [id number] [id number] 1940 Unknown [id number] [id number] 1940 Unknown [id number] [id number] 1940 Unknown [id number] [id number] 1940 Unknown [id number] [id number] 1940 Unknown [id number] 1940 Unknown [id number] [id number] Unknown [id number] Unknown [id number] Social History Date Type Detail Facility Start: 12-14-2015 Tobacco smoking stat [facility] Never smoked tobacco [facility] Start: 12-14-2015 End: 02-04-2024 Tobacco use and exposure Smokeless tobacco non-user [facility] Start: 11-14-2021 End: 03-18-2024 Alcohol intake Current drinker of alcohol (finding) [facility] Start: 12-14-2015 History SDOH Alcohol Comment on occ [facility] Start: 1940 Sex Assigned At Not on file C [facility] Start: 02-04-2024 End: 03-18-2024 Never a smoker Never a smoker [facility] [address] DO Work Phone: Comment on above: COFFEE DAILY; Start: 02-04-2024 [facility] Start: 06-08-1954 History of tobacco use Current smoke r [facility] Start: 06-08-1954 History of tobacco use Cigarette Smo ker [facility] Start: 02-04-2024 End: 03-18-2024 Tobacco use panel [facility] National Score (1-100), lower number is lower risk 91 [facility] Goals Date Patient Goal Desired Activity /State [...] labs and testing. documented in this encounter [facility] 03-18-2024 Note HNO ID: [id number] Author: COMPA CORCORAN APRN.CNP Service: ? Author Type: Nurse Practitioner Type: Progress Notes Filed: 03/18/2024 16:06 Note Text: [facility] [place] [facility] SECTION OF HEART FAILURE and CARDIAC TRANSPLANT MEDICINE OUTPATIENT VISIT DATE 03/18/2024 PRIMARY CARE PHYSICIAN: Samantha Recio [address] [place] [address] PRIMARY HEART FAILURE EXCELLENCE SPECIALIST: Dr. Mendoza CHIEF COMPLAINT: Follow-up HISTORY OF [...] Take 40 mg by mouth once daily. Cnohbrqybcznw-Nqgjkvya-Tdbrit (CENTRUM SILVER) tab Take 1 tablet by [...] cyanosis. Warm, peripheral (more content not included)... [facility] 03-18-2024 History of Presen t illness Narrative Images from the original note were not included. [facility] [place] [facility] SECTION OF HEART FAILURE and CARDIAC TRANSPLANT MEDICINE OUTPATIENT VISIT DATE 03/18/2024 PRIMARY CARE PHYSICIAN: Samantha Recio [address] [place] [address] PRIMARY HEART FAILURE EXCELLENCE SPECIALIST: Dr. Mendoza CHIEF COMPLAINT: Follow-up HISTORY OF [...] Take 40 mg by mouth once daily. Mlmrthqwqkhbo-Drtcrjng-Puossw (CENTRUM SILVER) tab Take 1 tablet by [...] 99 mg/dL 92 105 R Comment: The [place] Diabetes Association (ADA) provides guidance for cutoff [...] Standards of Medical Care in Diabetes 2016, [place] [employer]. Diabetes Care. 2016.39(Suppl 1). BUN [...] eGFR may not accurately reflect actual GFR. [facility] Specimen Collected: 02/09/24 See [facility] for details of other cardiac testing. [...] no Other anti-HTN: no Device therapy: no, [place] QRS: 116 ms Sleep apnea: no Anemia: [...] as above. Compa Corcoran MSN, ACNP-BC, CHFN, [facility] Section Of Heart Failure and Cardiac Transplant Medicine [facility] [place] [facility] Desk [address] [place] [address] documented in this encounter [facility] 02-16-2024 Telephone encounter Note Spoke with: Katalina (Spouse) Dr. Mendoza advised the following: - Stop Metoprolol for 2 days to get it out of his system - No EKG/no additional testing - Patient/spouse will call in on either Th or Fri this week to let us know what BP/HR is after stopping metoprolol Patient's spouse verbalized understanding. [facility] 02-16-2024 Miscellaneous Notes Spoke with: Katalina (Spouse) [...] Name: Brandi Rahman JR Patient Contact Number: [phone] (home) [phone] (work) Date of last office visit: 02/04/2024 [...] Yes Cesar Womack documented in this encounter [facility] 02-16-2024 Telephone encounter Note February 16, 2024 Name: Brandi Rahman JR Patient Contact Number: [phone] (home) [phone] (work) Date of last office visit: 02/04/2024 [...] next three business days. Yes Cesar Womack [facility] 02-09-2024 Nurse Note AMBULATORY PATIENT EDUCATION TOPIC: [...] By Nelly Wong RN In Department: CARDIOLOGY [facility] 02-09-2024 Nurse Note AMBULATORY PATIENT EDUCATION TOPIC: [...] In Department: CARDIOLOGY documented in this encounter [facility] 02-05-2024 Note HNO ID: [id number] Author: SHAWANDA VARGAS RN Service: ? Author [...] discussed with Physician, nurse practitioner or Physician resident care assistant upon discharge Instructions for transmitting EKG to Monitoring Center 3 month follow up instructions Contact number for information and questions Patient Evaluation: Verbalizes understanding Follow Up Plan: Follow up as directed by MD. Supplemental Material Given: Written Material Instructed By Shawanda Vargas RN. In Department of CARDIOLOGY. [facility] 02-05-2024 History of Presen t illness Narrative [...] discussed with Physician, nurse practitioner or Physician resident care assistant upon discharge Instructions for transmitting EKG to Monitoring Center 3 month follow up instructions Contact number for information and questions Patient Evaluation: Verbalizes understanding Follow Up Plan: Follow up as directed by MD. Supplemental Material Given: Written Material Instructed By Shawanda Vagras RN. In Department of CARDIOLOGY. documented in this encounter [facility] 02-05-[address] Mendoza requesting SHARON/DCC for 02/09/24. SHARON noted to be scheduled 02/08. DCC scheduled as requested. Patient's accepting date of 02/08. Shawanda Vargas RN [facility] 02-05-[address] Mendoza requesting SHARON/DCC for 02/09/24. SHARON noted to be scheduled 02/08. DCC scheduled as requested. Patient's accepting date of 02/08. Shawanda Vargas RN documented in this encounter [facility] 02-05-2024 Note Education (EPSMN) BRANDI ARHMAN ([id number]) 1940 M Date Time Provider Department 02/05/24 [...] 50 mg by mouth once daily. - Gcmrizcwsialc-Zghpwunw-Nccack (CENTRUM SILVER) tab Take 1 tablet by [...] Encounter Status:Closed by SHAWANDA VARGAS on 02/05/24 [facility] 02-04-2024 History of Presen t illness Narrative Images from the original note were not included. 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 He saw Dr. Yeager in [place] who did not address shortness of breath [...] Take 50 mg by mouth once daily. Jxgdzbuhkhxge-Ptdwnudy-Kwbyca (CENTRUM SILVER) tab Take 1 tablet by [...] HFrEF (LVEF 30%) and given IV diuretics. Amagon a little better but still has shortness [...] non-medical management as above. Kendra Mendoza MD [facility] Section Of Heart Failure and Cardiac Transplant Medicine [facility] [place] [facility] Desk J3-[address] [place] [address] documented in this encounter [facility] 02-04-2024 Note HNO ID: [id number] Author: KENDRA MENDOZA MD Service: ? 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 He saw Dr. Yeager in [place] who did not address shortness of breath [...] Take 50 mg by mouth once daily. Wtpuvmcdhfjfx-Qspzhtlf-Tvvfpq (CENTRUM SILVER) tab Take 1 tablet by [...] sores, Trouble swallowing, (more content not included)... [facility] 11-14-2021 History of Presen t illness Narrative New patient to Dr. Levin Last seen with Dr. 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 Epiretinal membrane (ERM) of both eyes [facility] Diagnosis Paroxysmal atrial fibrillation (HCC)- Primary [...] use of anticoagulants documented in this encounter [facility] note* Diagnosis Paroxysmal atrial fibrillation (HCC)- Primary Atrial fibrillation Persistent atrial fibrillation (HCC) Atrial fibrillation documented in this encounter [facility] note* Diagnosis Paroxysmal atrial fibrillation (HCC) Atrial fibrillation documented in this encounter [facility] note* Diagnosis Chronic systolic (congestive) heart failure (HCC)- Primary documented in this encounter [facility] for referral (narrative)* Outpatient Procedure (Routine) - Authorized Specialty Diagnoses / Procedures Referred By Sophia carlos Referred To Contact [facility] Diagnoses Paroxysmal atrial fibrillation (HCC) Procedures ECG COMPLETE ECG ROUTINE ECG W/LEAST 12 LDS W/I&R Arsen Talavera MD [address] [place] [address] [address] Referral ID Status Reason Start Date Expiration Date Visits Requested Visits Authorized [id number] Authorized Auto-Generat ed Referral 02/05/2024 02/04/2025 1 1 [facility] for visit Narrative* Outpatient Procedure (Routine) - Closed Specialty Diagnoses / Procedures Referred By Sophia carlos Referred To Contact [facility] Diagnoses Paroxysmal atrial fibrillation (HCC) Procedures ECHO TRANSESOPHAGEAL ECHO TRANSESOPHAG R-T 2D W/PRB IMG CYRUS I&R Kendra Mendoza MD [address] [place] [address] [address] Referral ID Status Reason Start Date Expiration Date V isits Requested Visits Authorized [id number] Closed Auto-Generate d Referral 02/04/2024 02/03/2025 1 1 [facility] Summary Purpose Family History Unknown Family Member [...] Referred By Contac t Referred To Contact [facility] Procedures CARDIOVASCULAR MEDICINE OP FOLLOW UP APPT ORDER Kendra Mendoza MD [address] [place] [address] [address] Referral ID Status Reason Start Date Expiration Date Visits Requested Visits Authorized [id number] Ref Not Required PCP Requested Referral 03/06/2024 02/03/2025 1 1 Specialty Diagnoses / Procedures Referred By Contac t Referred To Contact Diagnoses Paroxysmal atrial fibrillation (HCC) Procedures CONSULT TO ELECTROPHYSIOLOGY OFFICE/OUTPATIENT NEW HIGH MDM 60 [place] [address] [place] [address] Referral ID Status Reason Start Date Expiration Date Visits Requested Visits Authorized [id number] Authorized PCP Requested Referral 02/04/2024 02/03/2025 1 1 Specialty Diagnoses / Procedures Referred By Contac t Referred To Contact [facility] Diagnoses Paroxysmal atrial fibrillation (HCC) Chronic systolic (congestive) heart failure (HCC) Procedures ECHO ECHO TTHRC R-T 2D W/WOM-MODE COMPL SPEC&[place] [address] [place] [address] [address] Referral ID Status Reason Start Date Expiration Date Visits Requested Visits Authorized [id number] New Request Auto-Generat ed Referral 02/03/2025 1 1 Specialty Diagnoses / Procedures Referred By Contac t Referred To Contact [facility] Diagnoses Paroxysmal atrial fibrillation (HCC) Procedures ECHO TRANSESOPHAGEAL ECHO TRANSESOPHAG R-T 2D W/PRB IMG Kendra Wilder MD [address] [place] [address] [facility] [place] [address] [place] [address] Referral ID Status Reason Start Date Expiration Date Visits Requested Visits Authorized [id number] New Request Auto-Generat ed Referral 02/04/2024 02/03/2025 1 1 Additional Source Comments (unrecognized sect ion and content) No Status Records FoundNo Status Records FoundNo Status Records FoundNo Status Records FoundNo Status Records FoundNo Status Records FoundNo Status Records FoundNo Status Records FoundNo Status Records Found INFORMATION SOURCE (unrecogn ized section and content) DATE CREATED AUTHOR 01/19/2021 [facility] DATE CREATED AUTHOR AUTHOR'S ORGANIZ ATION 09/22/2022 [facility] DATE CREATED AUTHOR AUTHOR'S ORGANIZ ATION 11/16/2022 [facility] DATE CREATED AUTHOR AUTHOR'S ORGANIZ ATION 12/02/2022 [facility] DATE CREATED AUTHOR AUTHOR'S ORGANIZ ATION 01/29/2023 [facility] DATE CREATED AUTHOR AUTHOR'S ORGANIZ ATION 01/04/2024 [facility] DATE CREATED AUTHOR AUTHOR'S ORGANIZ ATION 01/13/2024 [facility] DATE CREATED AUTHOR AUTHOR'S ORGANIZ ATION 02/03/2024 [facility] DATE CREATED AUTHOR AUTHOR'S ORGANIZ ATION 03/19/2024 [facility] Source Comments (unrecognize d section and content) In the event this informatio n is protected by the Federal Confidentiality of Alcohol and Drug Abuse Patient Records regulations: The Federal rules restrict any use of the information to criminally investigate or prosecute any alcohol or drug abuse patient.[facility] the event this information is protected by the Federal Confidentiality of Alcohol and Drug Abuse Patient Records regulations: The Federal rules restrict any use of the information to criminally investigate or prosecute any alcohol or drug abuse patient.[facility] the event this information is protected by the Federal Confidentiality of Alcohol and Drug Abuse Patient Records regulations: The Federal rules restrict any use of the information to criminally investigate or prosecute any alcohol or drug abuse patient.[facility] the event this information is protected by the Federal Confidentiality of Alcohol and Drug Abuse Patient Records regulations: The Federal rules restrict any use of the information to criminally investigate or prosecute any alcohol or drug abuse patient.[facility] the event this information is protected by the Federal Confidentiality of Alcohol and Drug Abuse Patient Records regulations: The Federal rules restrict any use of the information to criminally investigate or prosecute any alcohol or drug abuse patient.[facility] the event this information is protected by the Federal Confidentiality of Alcohol and Drug Abuse Patient Records regulations: The Federal rules restrict any use of the information to criminally investigate or prosecute any alcohol or drug abuse patient.[facility] the event this information is protected by the Federal Confidentiality of Alcohol and Drug Abuse Patient Records regulations: The Federal rules restrict any use of the information to criminally investigate or prosecute any alcohol or drug abuse patient.[facility] the event this information is protected by the Federal Confidentiality of Alcohol and Drug Abuse Patient Records regulations: The Federal rules restrict any use of the information to criminally investigate or prosecute any alcohol or drug abuse patient.[facility] Reason for Visit (unrecogniz ed section and content) Reason Comments Epiretinal Membrane Follow Up [facility] Choroidal nevus of left eye Reason Comments Consult Reason Comments Patient Education EPS- SHARON/DCC Reason Comments Appointment EPS- SHARON/DCC Reason Comments Follow Up Specialty Diagnoses / Procedures Referred By Contac t Referred To Contact [facility] Procedures CARDIOVASCULAR MEDICINE OP FOLLOW UP APPT ORDER Kendra Mendoza MD [address] [place] [address] [facility] [address] [facility] [place] [address] Referral ID Status Reason Start Date Expiration Date Visits Requested Visits Authorized [id number] Ref Not Required PCP Requested Referral 03/06/2024 02/03/2025 1 1 Care Teams (unrecognized sec tion and content) Vegetable Specker Relationship Specialty Start Date End Date Jailyn Milan [address] [address] PCP - General 09/11/03 Vegetable Specker Relationship Specialty Start Date End Date Jailyn Milan [address] [address] PCP - General 09/11/03 Vegetable Specker Relationship Specialty Start Date End Date Samantha Recio MD [address] [place] [address] PCP - General Family Medicine 02/05/24 Vegetable Specker Relationship Specialty Start Date End Date Samantha Recio MD [address] [place] [id number] PCP - General Family Medicine 02/05/24 Vegetable Specker Relationship Specialty Start Date End Date Samantha Recio MD [address] [place] [address] PCP - General Family Medicine 02/05/24 Vegetable Specker Relationship Specialty Start Date End Date Samantha Recio MD [address] [place] [id number] PCP - General Family Medicine 02/05/24 Vegetable Specker Relationship Specialty Start Date End Date Samantha Recio MD [address] [place] [address] PCP - General Family Medicine 02/05/24 FOR [...] BE BASED ON THE PRIMARY CLINICAL RECORDS. [facility] [employer] [facility]. provides no warranty or guarantee of the accuracy or completeness of information in this document.
--- NOTE | 2024-03-31 11:54 | XR_ITS ---
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 FINDINGS: BONES: Mild left convex curvature of upper lumbar spine. Exaggerated lordotic curvature of lower lumbar spine. Minimal grade 1 retrolisthesis of L2 on 3, L3 on 4, L4 on 5. Osseous fusion of L1 and L2 vertebral bodies. Posterior wedging of L4 without increased density of the trabecula; developmental versus remote compression fracture. Multilevel marked degenerative facet arthropathy with bone encroachment on the neural foramen. DISC SPACES: Marked narrowing at all lumbar levels. No disc space at L1-L2 due to fusion of the vertebral bodies. PARASPINOUS: Negative. No paraspinous abnormality is seen. OTHER: Negative. XR/XR lumbar spine min 4V IMPRESSION: 1. Marked degenerative changes of the lumbar spine. Electronically authenticated by: HUSEYIN HARPER Date: 04/04/2024 06:31
== END 2024-03-31 11:32 | disposition home or self-care (01) ==
LOC: RAD 11:32
PROVIDERS: PCP Family Medicine; Visit Provider Family Medicine
DX: M53.86 Other specified dorsopathies, lumbar region (principal); M51.369 Other intervertebral disc degeneration, lumbar region without mention of lumbar back pain or lower extremity pain
CPT/HCPCS: 72110

== ENCOUNTER 2024-04-07 12:54 | Outpatient (RCR) | payer MEDICARE, OTHER, SELFPAY | END 2024-04-21 12:13 | disposition home or self-care (01) | LOC: PT 12:54 | PROVIDERS: PCP Family Medicine; Visit Provider Family Medicine | DX: M53.86 Other specified dorsopathies, lumbar region (principal) | CPT/HCPCS: 97110; 97161 ==

== ENCOUNTER 2024-06-01 02:46 | Emergency (ER) | payer MEDICARE, OTHER, SELFPAY ==
[2024-06-01 02:48] VITALS: BP 190/110; PULSE 90; TEMP 36.6; O2SAT 97; BMI 25.8
--- NOTE | 2024-06-01 02:54 | CT_ITS ---
The [address] [address] Patient Name: BRANDI RAHMAN MRN: [id number] date: 1940 Sex: M Assigned Patient Location: ED.MAIN Current Patient Location: Accession/Order Number: [id number] Exam Date: 06/01/2024 03:48 Report Date: 06/01/2024 04:27 At the request of: HECTOR CONTRERAS Procedure: CT abdomen pelvis w con CT OF THE ABDOMEN AND PELVIS WITH CONTRAST: 06/01/2024 3:48 AM EST CLINICAL HISTORY: Left lower quadrant pain. COMPARISONS: None. TECHNIQUE: Thin section axial CT images were obtained from the lung bases to the pubis symphysis. This CT exam was performed using one or more of the following dose reduction techniques: Automated exposure control, adjustment of the mA and/or kV according to patient size, or use of iterative reconstruction technique. Thin section coronal and sagittal images were reconstructed from the axial data set. All images were reviewed and interpreted. CONTRAST: 100 mL Visipaque to 70 IV without event. FINDINGS: LUNG BASES: No consolidation or pleural fluid. Mild scarring at lung bases. Cardiac chambers are mildly enlarged. LIVER: Normal. GALLBLADDER: Normal. BILIARY TREE: No ductal dilatation. PANCREAS: Normal. SPLEEN: Calcified splenic granulomas. ADRENALS: Normal. RIGHT KIDNEY AND URETER: Normal, without urolithiasis or hydronephrosis. LEFT KIDNEY AND URETER: There is acute mild to moderate left hydronephrosis and distention of the proximal left ureter to midportion where there is an obstructing calculus measuring 3.5 mm. No additional distal left ureteral calculi. No calcifications remaining in the left intrarenal collecting system. There is a exophytic hyperdense lesion lateral midpole left kidney measuring 2.6 cm maximum diameter. This has mean attenuation values of 59 Hounsfield units. Probable proteinaceous or hemorrhagic cyst but needs further characterization with ultrasound when stable. Left kidney otherwise negative. URINARY BLADDER: Grossly unremarkable. PELVIC STRUCTURES: Unremarkable. BOWEL: Patient is status post right right partial hemicolectomy with ileocolic anastomosis right upper quadrant. Moderate stool throughout large bowel. There is diffuse colonic diverticulosis. No acute colitis. Small bowel loops are normal in caliber. No enteritis or obstruction. APPENDIX: Resected with right hemicolectomy. LYMPH NODES: No pathologically enlarged lymph nodes identified. PERITONEUM: No intraperitoneal free air. No free intraperitoneal fluid. MESENTERY: Unremarkable. RETROPERITONEUM: The retroperitoneum is unremarkable. AORTA: Normal in caliber. BODY WALL: There is diffuse fatty infiltration of the right gluteus minimus muscle. No body wall mass. OSSEOUS STRUCTURES: Osteoporosis. Severe multilevel degenerative disc disease and vacuum disc phenomenon throughout the lower thoracic and lumbar spine. There is a fusion across the L1-2 vertebrae. Scattered lucent lesions within several lower thoracic and lumbar vertebrae at L1-2. Query metastasis or myeloma. No fractures. CT/CT abdomen pelvis w con IMPRESSION: 1. Acute left-sided obstructive uropathy with retained 3.5 mm size proximal left ureteral calculus causing mild to moderate upstream left hydroureteronephrosis. No other calcifications seen within the right or left kidney or ureter. 2. 2.6 cm exophytic hyperdense lesion along the lateral midpole left kidney cortex. Probable proteinaceous cyst but this requires further evaluation with renal ultrasound to confirm benign cystic nature. 3. Changes of previous right hemicolectomy. Moderate stool retention. 4. Widespread extensive colonic diverticulosis. No acute diverticulitis. 5. Mild cardiac enlargement. 6. Osteoporosis with lucent lesions in several lower thoracic and upper lumbar vertebrae of uncertain etiology. Correlate for metastasis or myeloma are not excluded. 7. Additional chronic findings as above. Electronically authenticated by: RADHA FAIRCHILD Date: 06/01/2024 04:27
--- OUTSIDE RECORDS SUMMARY | 2024-06-01 02:56 | XMS_ITS | CCD ---
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 Avelina Frank Attending Anita vailable Grady, Dr. Avelina Frank Referring Anita vailable Francesco, Dr. Samantha Huitron Primary Care Unavail able Chowdhury, Dr. Avelina Frank Attending Anita vailable Grady, Dr. Avelina Frank Referring Anita vailable Francesco, Dr. Samantha Huitron Primary Care Unavail able Chowdhury, Dr. Avelina Frank Attending Anita vailable Francesco, Dr. Samantha Huitron Primary Care Unavail able Hoy, Dr. Samantha Huitron Primary Care Unavail able Chowdhury, Dr. Avelina Frank Attending Anita vailable Grady, Dr. Avelina Frank Referring Anita vailable HUSEYIN FOSTER Attending Unavailable HUSEYIN FOSTER Referring Unavailable FRANCESCO SAMANTHAUSHA HUITRON Primary Care Unavailable AVELINA CHOWDHURY Referring Unavailable SAMANTHA MAYA Primary Care Unavailable AVELINA CHOWDHURY Attending Unavailable SAMANTHA MAYA Primary Care Unavailable AVELINA CHOWDHURY Attending Unavailable SAMANTHA MAYA Primary Care Unavailable Jailyn Meeks Primary Care Provider [phone] Samantha Maya MD Primary Care Provider Jailyn Meeks Primary Care Provider Samantha Maya MD Primary Care Provider [phone] SELF Referring Unavailable ECTORICH, KENDRA Attending Unavailable JAILYN MEEKS Primary Care Unavailable HOY, SAMANTHA M Primary Care Unavailable HSICH, KENDRA Referring Unavailable HOY, SAMANTHA M Primary Care Unavailable HSICH, KENDRA Referring Unavailable ANAY, ARSEN Referring Unavailable HOY, SAMANTHA M Primary Care Unavailable HOY, SAMANTHA M Primary Care Unavailable COMPA CORCORAN Attending Unavailable HSICH, KENDRA Referring Unavailable HOY, SAMANTHA M Primary Care Unavailable RD QURESHI Attending Unavailable HONick, SAMANTHA M Primary Care Unavailable HSICH, KENDRA Referring Unavailable HOY, SAMANTHA M Primary Care Unavailable HSICH, KENDRA Referring Unavailable HSICH, KENDRA Attending Unavailable HOY, SAMANTHA M Primary Care Unavailable HSICH, KENDRA Referring Unavailable HOY, SAMANTHA M Primary Care Unavailable RD QURESHI Attending Unavailable RD QURESHI Admitting Unavailable OSMAN RODRIGUEZ Referring Unavailable JAILYN MEEKS Primary Care Unavailable Medications Current Medications Medication Drug Class(es) Dates Sig (Normalized) Sig (Original) Acetaminophen (15 sources) acetaminophen (T YLENOL ARTHRITIS ORAL) Take by mouth as needed. Active take 1 tablet by mouth twice paulette ly acetaminophen (Tylenol 8 HOUR) 650 mg ER tablet Take 1 tablet (650 mg) by mouth 2 times a day. Do not crush, chew, or split. Active acetaminophen (T YLENOL ARTHRITIS ORAL) Take by mouth as needed. 0 Active Comment on above: Take by mouth as nee ded. apixaban 2.5 mg oral tablet (15 sources) Factor Xa Inhibitor Start: 05-24-2024 take 1 tablet by mouth twice daily apixaban (ELIQUIS) 2.5 mg tab(s) Take 1 tablet by mouth two times a day. 60 tablet 11 05/24/2024 Active Start: 10-27-2022 End: 05-24-2024 take 1 tablet by mouth once daily apixaban (ELIQUIS) 5 mg tab(s) Take 5 mg by mouth once daily. 10/27/2022 05/24/2024 Discontinued Start: 10-27-2022 take 1 tablet by javier th twice daily apixaban (ELIQUIS) 5 mg tab(s) Take 5 mg by mouth two times a day. 10/27/2022 Active ascorbic acid 500 mg oral tablet (18 sources) Vitamin C take 1 tablet by javier th once daily ascorbic acid, vitamin C, (VITAMIN C) 500 mg tablet Take 500 mg by mouth once daily. Active take 1 tablet by mouth once kristofer y ascorbic acid (Vitamin C) 1,000 mg tablet Take 1 tablet (1,000 mg) by mouth once daily. Active Comment on above: Take 500 mg by mouth once daily. benoxinate hydrochloride 4 mg/ml / fluorescein sodium 2.5 mg/ml ophthalmic solution (1 source) Diagnostic Dye Start: 11-14-2021 End: 11-14-2021 fluorescein-benoxina te 0.25-0.4 % 1 Drop (FLURESS) Calcium Carbonate / vitamin D3 (14 sources) CALCIUM CARBONATE/VITAMIN D3 (CALCIUM + D ORAL) Take by mouth. Active CALCIUM CARBONAT E/VITAMIN D3 (CALCIUM + D ORAL) Take by mouth. 0 Active Comment on above: Take by mouth. indapamide 1.25 mg oral tablet (4 sources) Thiazide-like Diuretic Start: 10-19-2023 End: 10-18-2024 take 1 tablet by mouth once daily indapamide (Lozol) 1.25 mg tablet Indications: Essential hypertension, benign Take 1 tablet (1.25 mg) by mouth once daily. 90 tablet 3 10/19/2023 10/18/2024 Active Start: 10-24-2022 take 1 tablet by javier th once daily Indapamide 1.25 MG Oral Tablet TAKE 1 TABLET ONCE DAILY. Quantity: 90 Refills: 3 Ordered: 24-Oct-2022 Avelina Chowdhury MD Start : 24-Oct-2022 Active new start lisinopril 5 mg oral tablet (13 sources) Angiotensin Converting Enzyme Inhibitor Start: 12-30-2023 take 1 tablet by mouth once daily lisinopril (ZESTRIL) 5 mg tablet Take 5 mg by mouth once daily. 12/30/2023 Active magnesium oxide 400 mg oral tablet (17 sources) take 1 tablet by mouth once daily magnesium oxide 400 mg magnesium tab Take 400 mg by mouth once daily. Active Magnesium 500 MG CAPS TAKE 1 CAPSULE Daily Quantity: 0 Refills: 0 Ordered: 24-Oct-2022 DO Active 24 hr metoprolol succinate 50 mg extended release oral tablet (7 sources) beta-Adrenergic Tyron Start: 12-25-2023 End: 12-24-2024 take 1 tablet by mouth once daily metoprolol succinate ER (TOPROL XL) 50 mg 24 hr tablet Take 50 mg by mouth once daily. 12/25/2023 Active multivitamin with minerals iron-free (Centrum Silver) (1 source) take 1 tablet by mouth once daily multivitamin with minerals iron-free (Centrum Silver) Take 1 tablet by mouth once daily. Active Multivitamins-[place] als-Lutein (CENTRUM SILVER) tab (13 sources) take 1 tablet by mouth once daily Multivitamins-[place] rals-Lutein (CENTRUM SILVER) tab Take 1 tablet by mouth once daily. Active phenylephrine hydrochloride 25 mg/ml ophthalmic solution (1 source) alpha-1 Adrenergic Agonist Start: 11-14-2021 End: 11-14-2021 PHENYLephrine 2.5 % 1 Drop (AK-DILATE, LUZMARIA-SYNEPHRINE) proparacaine hydrochloride 5 mg/ml ophthalmic solution (1 source) Local Anesthetic Start: 11-14-2021 End: 11-14-2021 proparacaine 0.5 % 1 Drop (ALCAINE) saw palmetto 450 mg capsule (1 source) saw palmetto 450 mg capsule Take by mouth. Active selenium 200 mcg cap (14 sources) selenium 200 mcg cap Take by mouth. Active selenium 200 mcg cap Take by mouth. 0 Active Comment on above: Take by mouth. selenium 200 mcg capsule (1 source) selenium 200 mcg capsule Take by mouth. Active tropicamide 10 mg/ml ophthalmic solution (1 source) Anticholinergic Start: 11-14-2021 End: 11-14-2021 tropicamide 1 % 1 Drop (MYDRIACYL) ZNOX/PYG/PUMPK/SAW PAL/PROST (MEN'S SAW PALMETTO FORMULA ORAL) (14 sources) ZNOX/PYG/PUMPK/S AW PAL/PROST (MEN'S SAW PALMETTO [...] release oral capsule (4 sources) Calcium Channel Tyron Start: 11-10-2015 End: 02-04-2024 diltiazem CD (CARDIZEM [...] by mouth. furosemide 40 mg oral tablet (9 sources) Loop Diuretic Start: 01-28-20 End: 05-06-20 LASIX 40 mg tablet Take 1 tablet by mouth as needed (for weight gain/ fluid retention). 03/18/2024 05/06/2024 Discontinued (Discontinued by another Health Care Provider) lidocaine hydrochloride 0.02 mg/mg topical gel (1 source) Antiarrhythmic, Amide Local Anesthetic Start: 02-09-20 End: 02-09-20 X (OR/PROCEDURE) PRN, Starting on Thu02/09/24 at 1334, Until Thu02/09/24 at 1334, Intraprocedure losartan potassium 100 mg oral tablet (4 sources) Angiotensin 2 Receptor Tyron Start: 11-10-19 End: 02-04-20 take 1 tablet by mouth once daily losartan (COZAAR) 100 mg tablet Take 100 mg by mouth once daily. 11/10/2015 02/04/2024 Discontinued Comment on above: Take 100 mg by mouth once daily. magnesium K-nwcetw-buqutlucypm 42 mg (500 mg)- 250 mg tablet extended release (1 source) End: 12-25-19 magnesium D-vvvpao-ppscfmzouxu 42 mg (500 mg)- 250 mg tablet extended release Take by mouth. 12/25/2023 Discontinued (Med List Cleanup) 5 ml midazolam 1 mg/ml injection (1 source) Benzodiazepine Start: 02-09-20 End: 02-09-20 INTRAVENOUS, X (OR/PROCEDURE) PRN, Starting on Thu02/09/24 at 1337, Until Thu02/09/24 at 1414, Intraprocedure potassium chloride 10 meq extended release oral tablet (9 sources) Start: 03-18-20 End: 05-06-20 take 1 tablet by mouth once daily as needed KLOR-CON 10 10 mEq tablet Take 1 tablet by mouth as needed (on days that you take lasix). 03/18/2024 05/06/2024 Discontinued (Discontinued by another Health Care Provider) Start: 02-01-2024 End: 03-18-2024 take 1 tablet by mouth twice daily KLOR-CON 10 10 mEq tablet Take 10 mEq by mouth two times a day. 02/01/2024 03/18/2024 Discontinued rivaroxaban 20 mg oral tablet (3 sources) Factor Xa Inhibitor Start: 10-24-2022 take 1 tablet by mouth once daily Xarelto 20 MG Oral Tablet Take 1 tablet daily Quantity: 90 Refills: 3 Ordered: 04-Nov-2022 Avelina Chowdhury MD Start : 24-Oct-2022 Active Saw [place] 450 MG Oral Capsule (3 sources) Saw [place] 450 MG Oral Capsule TAKE DIRECTED. Quantity: 0 Refills: 0 Ordered: 24-Oct-2022 DO Active Saw [place] Fruit 450 mg cap (1 source) Start: 05-24-2020 End: 02-04-2024 take 1 capsule by mouth once daily Saw [place] Fruit 450 mg cap Take 450 mg by mouth once daily. 05/24/2020 02/04/2024 Discontinued Selenium 200 MCG Oral Capsule (3 sources) Selenium 200 MCG Oral Capsule TAKE DIRECTED. Quantity: 0 Refills: 0 Ordered: 24-Oct-2022 DO Active 125 ml sodium chloride 9 mg/ml prefilled syringe (9 sources) Start: 02-04-2024 End: 02-03-2025 sodium chloride 0.9 %, flush, (BD POSIFLUSH) syringe Inject 2-10 mL intravenously as directed. For Echo procedure 10 mL 02/04/2024 05/09/2024 Discontinued vitamin b6 200 mg oral tablet (2 sources) End: 02-04-2024 take 1 tablet by mouth once daily Pyridoxine HCl 200 mg tablet Take 200 mg by mouth once daily. 02/04/2024 Discontinued Comment on above: Take 200 mg by mouth once daily. Problems Active Problems Problem Classification Problem Date Documented Da te Episodic/Chronic Cardiac dysrhythmias (19 sources) Persistent atrial fibrillation; Translations: [Atrial fibrillation] Onset: 3 Resolved: 3 02-04-2024 Chronic Cardiac dysrhythmias (1 source) Tachycardia-induced cardiomyopathy; Translations: [Tachycardia, unspecified] 02-04-2024 Episodic Congestive heart failure; nonhypertensive (7 sources) Unspecified diastolic (congestive) heart failure; Translations: [Chronic systolic heart failure] Onset: 2 02-04-2024 Chronic Disorders of lipid metabolism (3 sources) Hyperlipidemia, unspecified; Translations: [Hyperlipidemia] Onset: 2 02-04-2024 Chronic Essential hypertension (9 sources) Benign essential hypertension; Translations: [Benign essential hypertension] Onset: 3 Chronic Gastrointestinal hemorrhage (1 source) Lower gastrointestinal hemorrhage; Translations: [Gastrointestinal hemorrhage, unspecified] 05-16-2024 Episodic Heart valve disorders (12 sources) Mitral valve regurgitation; Translations: [Mitral valve disorders] Onset: 3 Chronic Hypertension with complications and secondary hypertension (1 source) Hypertensive heart disease with heart failure; Translations: [HTN HEART DISEASE W/HEART FAIL] Onset: 2 Chronic Other aftercare (3 sources) Drug therapy finding; Translations: [Long-term (current) use of other medications] Episodic Other aftercare (2 sources) Long-term current use of anticoagulant; Translations: [halfway (current) use of anticoagulants] 02-04-2024 Episodic Other and ill-defined heart disease (5 sources) Left atrial dilatation; Translations: [Cardiomegaly] Onset: 3 12-25-2023 Chronic Other and ill-defined heart disease (4 sources) Cardiomegaly; Translations: [Cardiomegaly] Onset: 3 Chronic Other and unspecified benign neoplasm (1 source) Nevus of choroid of left eye; Translations: [Benign neoplasm of left choroid] Episodic Other circulatory disease (3 sources) H/O: hypertension; Translations: [Personal history of other diseases of circulatory system] Episodic Other gastrointestinal disorders (1 source) History of gastrointestinal bleed; Translations: [Personal history of other diseases of the digestive system] 02-04-2024 Episodic Other lower respiratory disease (4 sources) Other forms of dyspnea; Translations: [OTHER FORMS OF DYSPNEA] Onset: Episodic Other nervous system disorders (4 sources) Carpal tunnel syndrome; Translations: [Carpal tunnel syndrome] 02-04-2024 Chronic Other nervous system disorders (4 sources) Lesion of ulnar nerve, left upper limb; Translations: [Cubital tunnel syndrome on left] Onset: 3 03-18-2023 Chronic Other nervous system disorders (4 sources) Lesion of ulnar nerve, right upper limb; Translations: [Cubital tunnel syndrome on right] Onset: 3 03-18-2023 Chronic Other nervous system disorders (1 source) Bilateral carpal tunnel syndrome; Translations: [Carpal tunnel syndrome, bilateral upper limbs] Onset: 3 03-18-2023 Chronic Other non-traumatic joint disorders (1 source) Other specified joint disorders, right shoulder; Translations: [OTH SPECIFIED JOINT D/O RT SHOULDER] Onset: 3 Episodic Other nutritional; endocrine; and metabolic disorders (3 sources) Overweight in adulthood with body mass index of 25 or more but less than 30; Translations: [Overweight] Episodic Shanell-; endo-; and myocarditis; cardiomyopathy (except that caused by tuberculosis or sexually transmitted disease) (2 sources) Cardiomyopathy; Translations: [Other cardiomyopathies] 02-04-2024 Chronic Residual codes; unclassified (2 sources) History of partial resection of colon; Translations: [Acquired absence of other specified parts of digestive tract] 02-04-2024 Episodic Residual codes; unclassified (1 source) Other specified health status; Translations: [Other specified conditions influencing health status] 05-24-2024 Episodic Retinal detachments; defects; vascular occlusion; and [...] 02-21-2022 Episodic Other aftercare (4 sources) Other chcf (current) drug therapy; Translations: [Other chcf (current) drug therapy] Onset: 03-18-2023 Episodic Other aftercare (2 sources) Taking high risk medication; Translations: [Other chcf (current) drug therapy] Onset: 03-18-2023 12-25-2023 Episodic Other circulatory disease (2 sources) Low blood pressure; Translations: [Hypotension, unspecified] Onset: 03-18-2023 03-18-2023 Episodic Other lower respiratory disease (4 sources) Dyspnea, unspecified; Translations: [DYSPNEA UNSPECIFIED] Onset: 02-14-2022 Episodic Other lower respiratory disease (3 sources) Dyspnea; Translations: [Other respiratory abnormalities] Onset: 12-25-2023 12-25-2023 Episodic Other lower respiratory disease (3 sources) Shortness of breath; Translations: [Shortness of breath] Onset: 12-25-2023 Episodic Other screening for suspected conditions (not mental disorders or infectious disease) (1 source) Encounter for screening for malignant neoplasm of prostate; Translations: [ENC SCREEN MALIG NEOPLASM PROSTATE] Onset: 02-21-2022 Episodic Residual codes; unclassified (2 sources) H/O: respiratory disease; Translations: [Personal history of other diseases of respiratory system] Resolved: 12-01-2022 Episodic Residual codes; unclassified (1 source) Edema, unspecified; Translations: [Edema, unspecified type] Onset: 02-04-2024 Episodic Screening and history of mental health and substance abuse codes (4 sources) Personal history of nicotine dependence; Translations: [Ex-smoker] Onset: 05-25-2023 Episodic Unclassified (3 sources) Never smoked tobacco; Translations: [Never a smoker] Unclassified (1 source) Onset: 05-25-2023 05-25-2023 Results Test Name Value Interpretation Reference Range Facility Basic metabolic 2000 panelon 05-24-2024 Anion gap [Moles/Vol] 13 mmol/L Normal 8-15 [facility] Comment on above: Order Comment: Speci men Type: BLOOD SPECIMENOrdering Facility: [facility] Address: [address] [place], [place] [id number] Performed By: #### 2 4321-2, 47643-8 ####[facility] LABCLIA [id number] [place] [address] [place] Calcium [Mass/Vol] 10.2 mg/dL Normal 8.5-10.2 [facility] Comment on above: Order Comment: Speci men Type: BLOOD SPECIMENOrdering Facility: [facility] Address: [address] [place] [address] Performed By: #### 2 4321-2, 86225-9 ####[facility] LABCLIA [id number] [place] [address] [place] Chloride [Moles/Vol] 101 mmol/L Normal 98-107 [facility] Comment on above: Order Comment: Speci men Type: BLOOD SPECIMENOrdering Facility: [facility] Address: [address] [place] [address] Performed By: #### 2 4321-2, 80262-9 ####[facility] LABCLIA [id number] [place] [address] [place] CO2 [Moles/Vol] 25 mmol/L Normal 22-30 [facility] Comment on above: Order Comment: Speci men Type: BLOOD SPECIMENOrdering Facility: [facility] Address: [address] [place], [place] [address] Performed By: #### 2 4321-2, 55749-9 ####[facility] LABCLIA [id number] [place] [id number] [place] Creatinine [Mass/Vol] 1.32 mg/dL High 0.73-1.22 [facility] Comment on above: Order Comment: Speci men Type: BLOOD SPECIMENOrdering Facility: [facility] Address: [address] [place], [place] [address] Performed By: #### 2 4321-2, 26370-6 ####[facility] LABCLIA [id number] [place] [address] [place] Creatinine and Glomerular filtration rate.predicted panel (S/P/Bld) 54 mL/min/1.73m??? Low >=60 [facility] Comment on above: Order Comment: Marilyn melendez Type: BLOOD SPECIMENOrdering Facility: [facility] Address: [address] [place] [address] Result Comment: Erica mated Glomerular Filtration Rate [...] reflect actual GFR. Performed By: #### 2 4321-2, 06337-9 ####[facility] LABIA [id number] [place] [address] [place] Glucose [Mass/Vol] 100 mg/dL High 74-99 [facility] Comment on above: Order Comment: Marilyn melendez Type: BLOOD SPECIMENOrdering Facility: [facility] Address: [address] [place] [address] Result Comment: The Stateless Diabetes Association (ADA) provides guidance for cutoff [...] Standards of Medical Care in Diabetes 2016, Stateless Diabetes Association. Diabetes Care. 2016.39(Suppl 1). Performed By: #### 2 4321-2, 56389-7 ####[facility] LABCLIA [id number] [place] [address] [place] Potassium [Moles/Vol] 4.7 mmol/L Normal 3.7-5.1 [facility] Comment on above: Order Comment: Speci men Type: BLOOD SPECIMENOrdering Facility: [facility] Address: [address] [place] [address] Performed By: #### 2 4321-2, 83940-4 ####[facility] LABCLIA [id number] [place] [address] [place] Sodium [Moles/Vol] 139 mmol/L Normal 136-144 [facility] Comment on above: Order Comment: Speci men Type: BLOOD SPECIMENOrdering Facility: [facility] Address: [address] [place] [address] Performed By: #### 2 4321-2, 29266-9 ####[facility] LABCLIA [id number] [place] [address] [place] Urea nitrogen [Mass/Vol] 33 mg/dL High 9-24 [facility] Comment on above: Order Comment: Speci men Type: BLOOD SPECIMENOrdering Facility: [facility] Address: [address] [place] [address] Performed By: #### 2 4321-2, 42701-4 ####[facility] LABCLIA [id number] [place] [address] [place] CNOVon 05-24-2024 CNOV Office Visit (MEGAN ORELLANA MAI) BRANDI DALTON ([id number]) 1940 [place] Date Time Provider Department 05/24/24 10:15 AM HSICH, KENDRA M CARD CHF RHONA During your visit today, we recorded the following information about you: Pulse Respiration Blood pressure Weight 60/minute 15/minute 165/79 70.3 kg Height 1.651 m Kendra Mendoza MD 05/24/2024 5:30 PM Signed [facility] [place] [facility] SECTION OF HEART FAILURE and CARDIAC TRANSPLANT MEDICINE OUTPATIENT VISIT DATE May 24, 2024 OUTPATIENT VISIT TYPE Established Patient PRIMARY CARE PHYSICIAN: Samantha Maya [address] [place] [address] CHIEF COMPLAINT: HF f/u NURSING INTAKE (Patient?s concerns and/or recent hospitalizations/ER visits): HF Nursing Assessment: Interim Hospitalizations and/or ER visits:02/09/24 04/07/24 Chest Pain: no Skipping or irregular heartbeats: no Shortness of breath at rest: no Shortness of breath with activity: no Cough: no Waking up in the middle of the night gasping for air: no Lightheadedness or dizziness: no Feeling like you are going to pass out: no Actually passing out: no Poor energy level: fair Unintentional weight gain: no Unintentional weight loss: no Swelling in your legs,feet, abdomen: no Filling up quickly when you eat: no HISTORY OF PRESENT ILLNESS: Underwent cardioversion for afib on 02/09/24 Summary Findings: The cardioversion was successful. 1. The presenting arrhythmia was atrial fibrillation. 2. Sinus rhythm with a ventricular rate of 51 beats per minute was observed after the procedure. Overall feeling better but still limited by arthritis. Breathing ok. B-tyron stopped due to bradycardia post-cardioversion. Eliquis reduced to once daily due to bleeding PAST MEDICAL HISTORY Diagnosis Date Atrial fibrillation [...] Cigarettes Start date: 1954 Smokeless tobacco: Never Vaping Use Vaping status: Never Used Substance Use Topics Alcohol use: Yes Comment: on occ Drug use: No FAMILY HISTORY Problem Relation Age of Onset Cataract Mother Hypertension Mother Cataract Father Hypertension Father Cancer Sister Diabetes Sister Cataract Sister Cancer Sister ALLERGIES: ALLERGIES No Known Allergies CURRENT MEDICATIONS: apixaban (ELIQUIS) 5 mg tab(s) Take 5 mg by mouth once daily. Multivitamins-Minerals- Lutein (CENTRUM SILVER) tab Take 1 tablet by mouth once daily. magnesium oxide 400 mg magnesium tab Take 400 mg by mouth once daily. lisinopril (ZESTRIL) 5 mg tablet Take 5 [...] cap Take by mouth. REVIEW OF SYSTEMS: ROS HEART FAILURE PATIENT ENTERED DATA: 05/21/2024 KCCQ-12 Scores Physical Limitation Score 100 (Class I Heart Failure ) Symptom Frequency Score 95.83 (Class I Heart Failure ) Quality of Life Score 62.5 (Fair to Good Quality of Life) Social Limitation Score 100 (Class I Heart Failure) Overall Summary Score 89.58 (Class I Heart Failure ) 05/21/2024 PHQ-9 Score 0 05/21/2024 PROMIS Global Health - (T-Scores - the mean of general population = 50. Five points is a clinically meaningful difference.) Physical T-Score 47.7 Mental T-Score 43.5 PHYSICAL EXAMINATION: BP 165/79 (BP Site: Left Arm, BP Position: Sitting, BP Cuff Size: Regular Adult) Pulse 60 Resp 15 Ht 165.1 cm (5' 5 ) Wt 70.3 kg (155 lb) SpO2 94% BMI 25.79 kg/m? which is 3 lbs less than last visit (note BP at home 116/69 on avg) 135/94 Pulse 88 Ht 165.1 cm (5' 5 ) Wt 71.9 kg (158 lb 8 oz) SpO2 (more content not included)... Normal [facility] ECHOon 05-24-2024 Echocardiography Echocardiography Report: Transthoracic Echo Main [place] J35 Date of service: 05/24/2024 8:08:07 AM SUPERVISOR Ordering physician: KENDRA MENDOZA Indication: S/P Cardioversion Technologist: Archie Becerril Interpreting physician: Eric Diaz MD PATIENT: Name: MR. BRANDI DALTON JR : 1940 Age: 83 years Gender: M History of hypertension, dyslipidemia, heart failure with hospitalization and arrhythmia. Previous cardiovascular interventions: Cardioversion (02/09/2024) Primary rhythm: sinus. Secondary rhythm: PVC. Height: 165.10 cm BSA: 1.82 m Weight: 71.90 kg BMI: 26.4 kg/m Heart rate 76 bpm Blood pressure 116/70 mmHg Color Doppler was utilized to interrogate the cardiac valves assessed and spectral Doppler was utilized to determine the flow velocities and pressure gradients reported in this exam. MEASUREMENTS: Value Indexed Normal Max aortic dimension 4.3 cm Ao < 3.8 Left atrial volume 116 ml (biplane A-L) 64 ml/m Sarah <= 34 LV ID (diastole) 4.9 cm (2D) 2.72 cm/m LV ID (systole) 3.6 cm (2D) 1.99 cm/m IVS, leaflet tips 1.5 cm (2D) Posterior wall thickness 0.9 cm (2D) Left ventricular mass 231 g (2D) 127 g/m LV stroke volume 88 ml (2D biplane) LV end diastolic volume 156 ml (2D biplane) 86.2 ml/m 34<=EDVi<75 LV end systolic volume 69 ml (2D biplane) 37.9 ml/m Ejection Fraction 56 % (2D biplane) EF > 52 FINDINGS: LEFT VENTRICLE The left ventricle is mildly dilated. There is upper septal left ventricular hypertrophy. Left ventricular systolic function is normal. Left ventricular diastolic function was not evaluated due to >2+ MR. Mitral annular lateral E/e': 4.9. Mitral annular septal E/e': 10.0. Wall Motion: The basal inferior segment is severely hypokinetic. The posterior wall and mid inferior segment are mildly hypokinetic. All remaining scored segments are normal. RIGHT VENTRICLE The right ventricle is normal in size. Right ventricular systolic function is normal. RV systolic tissue Doppler velocity is 13.1 cm/s. Tricuspid annular displacement is 1.6 cm. Estimated right ventricular systolic pressure is not reported due to an insufficient tricuspid regurgitation signal. Estimated right atrial pressure is 3 mmHg based on IVC assessment. LEFT ATRIUM The left atrial cavity is severely dilated. RIGHT ATRIUM The right atrial cavity is normal in size. Inferior Vena Cava: The inferior vena cava appears normal measuring 1.2 cm. The vessel decreases greater than 50 percent with inspiration. 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 There is mild thickening. Regurgitant orifice area (PISA) is 0.27 cm . The pressure half time is 78 msec. The peak mitral E/A ratio is 0.98. The mitral flow deceleration time is 269 msec. TRICUSPID VALVE There is trace (trace - 1+) tricuspid valve regurgitation. There is no thickening. AORTIC VALVE There is trace (trace - 1+) aortic valve regurgitation. Tricuspid aortic valve. There is mild thickening. The peak gradient is 15 mmHg (peak velocity = 195.1 cm/s). The LVOT diameter is 2.5 cm. PULMONIC VALVE The pulmonic valve was not seen or not interrogated. There is trace pulmonic valve regurgitation. AORTA The visualized aorta is dilated. Measurements - Sinus: 3.6 cm. Mid ascending aorta 4.2 cm. Distal ascending aorta 4.3 cm. PULMONARY ARTERIES The pulmonary arteries are unseen or not interrogated. PERICARDIUM There is no pericardial effusion. CONCLUSIONS: - Exam indication: S/P Cardioversion - The left ventricle is mildly dilated. There is upper septal left ventricular hypertrophy. Left ventricular systolic function is normal. EF = 56 5% (2D biplane) RWMAs noted above. - The right ventricle is normal in size. Right ventricular systolic function is normal. - The left atrial cavity is severely dilated. - The visualized aorta is dilated with a maximal dimension of 4.3 cm. 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 Regurgitant orifice area (PISA) is 0.27 cm . - Exam was compared with the prior echocardiographic exam performed on 02/09/2024 (SHARON). LVEF has improved; MR better evaluated on prior SHARON. * * * Final * * * [facility] [facility] Image : [id number] ISUID Normal [facility] NT-proBNP [facility] 05-24 Natriuretic peptide.B prohormone N-Terminal [Mass/Vol] 338 pg/mL Normal <450 [facility] Comment on above: Order Comment: Speci men Type: BLOOD SPECIMENOrdering Facility: [facility] Address: [address] [place] [address] Performed By: #### 2 4321-2, 73194-1 ####[facility] LABCLIA [id number] [address] [place] CNCOon 05-10-2024 CNCO Letter Text Normal [facility] CNPNon 05-10-2024 CNPN Telephone (CARDMN) BRANDI DALTON ([id number]) 1940 M Date Time Provider Department 05/10/24 RD QURESHI During your visit today, we recorded the following information about you: Georgia Cannon 05/10/2024 10:41 AM Signed May 10, 2024 Patient Contact Number: [phone] (home) [phone] (work) [phone] (cell) Patient last seen within the last year: Yes Reason for Call: Other Issue: Patient called to inform Dr. Qureshi that he would like to proceed with Ablation and Watchman procedure (one procedure). Patient would like pre-op testing to be day prior to procedure if possible. He will discuss with scheduling nurse. Patient advised of routine timeframe for EPLABSC to contact him with avail dates. Pt acknowledges understanding. Please initiate process for scheduling. Thank you, Georgia Cannon, Admin Ian Hogue RN 05/16/2024 5:14 PM Signed Patient will need to meet with Ep physician who preforms Watchman (Dr Qureshi placed consult). Patient updated and provided scheduling number. Message also sent to schedulers. Ian Hogue RN Allergies As of Date: 05/10/2024 (No Known Allergies) Date Reviewed: 05/06/2024 Reviewed by: Raissa Brandt RN - Fully Assessed Reason for Visit: Patient Update [1234] Cmt: Procedures Prescriptions as of 05/16/2024 - apixaban (ELIQUIS) 5 mg tab(s) Take 5 mg by mouth two times a day. - Multivitamins-Minerals- Lutein (CENTRUM SILVER) tab Take 1 tablet by mouth once daily. - magnesium oxide 400 mg magnesium tab Take 400 mg by mouth once daily. - lisinopril (ZESTRIL) 5 mg tablet Take 5 mg by mouth once daily. - ascorbic acid, vitamin C, (VITAMIN C) 500 mg tablet Take 500 mg by mouth once daily. - acetaminophen (TYLENOL ARTHRITIS ORAL) Take by mouth as needed. - CALCIUM CARBONATE/VITAMIN D3 (CALCIUM + D ORAL) Take by mouth. - ZNOX/PYG/PUMPK/SAW PAL/PROST (MEN'S SAW PALMETTO FORMULA ORAL) Take by mouth. - selenium 200 mcg cap Take by mouth. Problem List As Of Date: 05/10/2024 (None) Encounter Status:Closed by IAN HOGUE on 05/16/24 [facility] CNOVon 03-18-2024 CNOV Office Visit (MEGAN Rizzo HF RHONA) BRANDI DALTON ([id number]) 1940 M Date Time Provider Department 03/18/24 10:00 AM COMPA CORCORAN CARD CHF RHONA During your visit today, we recorded the following information about you: Pulse Blood pressure Weight Height 69/minute 147/86 70.9 kg 1.651 m Compa Corcoran, CAR INSPECTION AND REPAIR MANAGER.ENGINEERING GEOLOGIST 03/18/2024 4:06 PM Signed [facility] SECTION OF HEART FAILURE and CARDIAC TRANSPLANT MEDICINE OUTPATIENT VISIT DATE 03/18/2024 PRIMARY CARE PHYSICIAN: Samantha Maya [address] [place] [address] PRIMARY HEART FAILURE MATERIALS PLANNER/PRODUCTION PLANNER: Dr. Mendoza CHIEF COMPLAINT: Follow-up HISTORY OF PRESENT ILLNESS: Brandi Dalton JR is a 83 year old male [...] No Rub. (more content not included)... Normal [facility] ECG COMPLETEon 03-18-2024 ECG COMPLETE Ventricular Rate : 7 9 BPM Atrial Rate : 71 BPM P-R Interval : 212 ms QRS Duration : 116 ms Q-T Interval : 394 ms QTC Calculation(Bazett) : 451 ms Calculated P Blanchester : 86 degrees Calculated R Blanchester : 60 degrees Calculated T Blanchester : 1 degrees SINUS RHYTHM WITH 1ST DEGREE AV BLOCK WITH PREMATURE VENTRICULAR COMPLEXES NONSPECIFIC ST ABNORMALITY ABNORMAL ECG Reconfirmed by CHANDRIKA NEVAREZ MD ([id number]) on 04/13/2024 4:08:20 PM NAME : BRANDI DALTON PID : [id number] : 1940 Gender : Male Race : ORD : [id number] Procedure Date : Mar 18 2024 08:33:32 Edit Date : Apr 13 2024 16:08:24 Diagnosis: SINUS RHYTHM WITH 1ST DEGREE AV BLOCK WITH PREMATURE VENTRICULAR COMPLEXES NONSPECIFIC ST ABNORMALITY ABNORMAL ECG Reconfirmed by CHANDRIKA NEVAREZ MD ([id number]) on 04/13/2024 4:08:20 PM Test Reason : Location : 314 : J14 Overread By : CHANDRIKA NEVAREZ MD Edited By : CHANDRIKA NEVAREZ MD Referred By : ARSEN TALAVERA Acquired by : ALEJANDRO MURPHY Normal [facility] Corey 02-16-2024 CNPN Telephone (CARD CHF RHONA) SHASANTOD ([id number]) 1940 Date Time Provider Department 02/16/24 KENDRA MENDOZA CARD [facility] RHONA During your visit today, we recorded the following information about you: Cesar Womack 02/16/2024 12:41 PM Signed February 16, 2024 Name: Brandi Dalton JR Patient Contact Number: [phone] (home) [phone] (work) Date of last office visit: 02/04/2024 [...] within the next three business days. Yes Fidelina Day 02/16/2024 3:08 PM Signed Spoke with: Katalina (Spouse) Dr. Mendoza advised the following: - Stop Metoprolol for 2 days to get it out of his system - No EKG/no additional testing - Patient/spouse will call in on either or Thu this week to let us know what BP/HR is after stopping metoprolol Patient's spouse verbalized understanding. Fidelina Lange 02/19/2024 6:24 PM Signed Patient called in with vitals. VITALS (OFF METOPROLOL FOR 3 DAYS): 02/16 - BP 110/66, HR 55 (MORNING); 127/74, HR 56 (EVENING) 02/17 - BP 120/72, HR 67 (AFTERNOON) 02/18 - BP 102/63, HR [address] MENDOZA OF TODAY, NO BETA TYRON ANYMORE. Called to advise patient. Patient verbalized [...] Encounter Status:Closed by KEVIN ZHU on 02/16/24 [facility] ANES POSTPROC EVALon 024 ANES POSTPROC EVAL HNO ID: [id number] Author: SHAKEEL FALL MD Service: ? Author Type: Anesthesiologist Type: Anesthesia Postprocedure Evaluation Filed: 02/09/2024 17:58 Note Text: POST ANESTHESIA EVALUATION NOTE : 1940 Procedure Summary Date: 02/09/24 Room / Location: [address] [facility] Anesthesia Start: 1541 Anesthesia Stop: 1552 Procedure: 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 EXTERNAL ELECTIVE Diagnosis: Persistent atrial fibrillation (HCC) (Persistent atrial fibrillation (HCC) [I48.19]) Surgeons: Rd Qureshi MD Responsible Provider: Shakeel Fall MD Anesthesia [...] SIGNATURE: Shakeel Zee MD PATIENT NAME: Brandi Dalton JR DATE: February 09, 2024 TIME: 5:57 PM CSN: [id number] Normal [facility] ANES PRE-OPon 02-09-2024 ANES PRE-OP HNO ID: [id number] Author: SHAKEEL FALL MD Service: ? Author Type: Anesthesiologist Type: Anesthesia Preprocedure Evaluation Filed: 02/09/2024 15:45 Note Text: ANESTHESIOLOGY DAY OF SURGERY NOTE : 1940 Procedure Information Anesthesia Start Date/Time: 02/09/24 1541 Procedure: 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 EXTERNAL ELECTIVE Location: [address] [facility] Surgeons: Rd Qureshi MD Estimated body mass index is 26.38 [...] additional comments: HTN CHF HLP . Beta Tyron Monitoring Plan Monitoring plan: standard ASA. Post [...] SIGNATURE: Shakeel Zee MD PATIENT NAME: Brandi Dalton JR DATE: February 09, 2024 TIME: 3:44 PM CSN: [id number] Normal [facility] Basic metabolic 2000 panelon 02-09-2024 Anion gap [Moles/Vol] 11 mmol/L Normal 8-15 [facility] Comment on above: Order Comment: Speci men Type: BLOOD SPECIMENOrdering Facility: [facility] Address: [address] [place] [address] Performed By: #### 2 4321-2 ####[facility] LABIA [id number] [place] [address] [place] Calcium [Mass/Vol] 9.8 mg/dL Normal 8.5-10.2 [facility] Comment on above: Order Comment: Speci men Type: BLOOD SPECIMENOrdering Facility: [facility] Address: [address] [place] [address] Performed By: #### 2 4321-2 ####[facility] LABCLIA [id number] [place] [address] [place] Chloride [Moles/Vol] 102 mmol/L Normal 98-107 [facility] Comment on above: Order Comment: Speci men Type: BLOOD SPECIMENOrdering Facility: [facility] Address: [address] [place] [address] Performed By: #### 2 4321-2 ####[facility] LABCLIA [id number] [place] [address] [place] CO2 [Moles/Vol] 28 mmol/L Normal 22-30 [facility] Comment on above: Order Comment: Speci men Type: BLOOD SPECIMENOrdering Facility: [facility] Address: [address] [place] [id number] Performed By: #### 2 4321-2 ####[facility] LABIA [id number] [place] [id number] [place] Creatinine [Mass/Vol] 1.45 mg/dL High 0.73-1.22 [facility] Comment on above: Order Comment: Speci men Type: BLOOD SPECIMENOrdering Facility: [facility] Address: [address] [place] [address] Performed By: #### 2 4321-2 ####[facility] LABIA [id number] [place] [address] [place] Creatinine and Glomerular filtration rate.predicted panel (S/P/Bld) 48 mL/min/1.73m??? Low >=60 [facility] Comment on above: Order Comment: Marilyn men Type: BLOOD SPECIMENOrdering Facility: [facility] Address: [address] [place] [address] Result Comment: Erica mated Glomerular Filtration Rate [...] actual GFR. Performed By: #### 2 4321-2 ####[facility] LABIA [id number] [place] [id number] [place] Glucose [Mass/Vol] 92 mg/dL Normal 74-99 [facility] Comment on above: Order Comment: Sarai men Type: BLOOD SPECIMENOrdering Facility: [facility] Address: [address] [place] [address] Result Comment: The Stateless Diabetes Association (ADA) provides guidance for cutoff [...] Standards of Medical Care in Diabetes 2016, Stateless Diabetes Association. Diabetes Care. 2016.39(Suppl 1). Performed By: #### 2 4321-2 ####[facility] LABIA [id number] [place] [address] [place] Potassium [Moles/Vol] 4.8 mmol/L Normal 3.7-5.1 [facility] Comment on above: Order Comment: Marilyn melendez Type: BLOOD SPECIMENOrdering Facility: [facility] Address: [address] [place] [address] Performed By: #### 2 4321-2 ####[facility] LABIA [id number] [place] [address] [place] Sodium [Moles/Vol] 141 mmol/L Normal 136-144 [facility] Comment on above: Order Comment: Marilyn melendez Type: BLOOD SPECIMENOrdering Facility: [facility] Address: [address] [place] [address] Performed By: #### 2 4321-2 ####[facility] LABIA [id number] [place] [address] [place] Urea nitrogen [Mass/Vol] 36 mg/dL High 9-24 [facility] Comment on above: Order Comment: Marilyn melendez Type: BLOOD SPECIMENOrdering Facility: [facility] Address: [address] [place] [address] Performed By: #### 2 4321-2 ####[facility] LABIA [id number] [place] [address] [place] CNOVon 02-09-2024 CNOV Office Visit (CAFLMN ) BRANDI DALTON ([id number]) 1940 M Date Time Provider Department 02/09/24 [...] Diagnosis:Paroxysmal atrial fibrillation (HCC) [I48.0] Order(s):ECHO TRANSESOPHAGEAL [[id number]] Order #: [id number]: 1 [] benzocaine 20% (TOPEX)Disp: Rfl: [] [...] Status:Closed by SUNNI PERALES on 02/09/24 Normal [facility] ECG COMPLETEon 02-09-2024 ECG COMPLETE Ventricular Rate : 4 6 BPM Atrial Rate : 46 BPM P-R Interval : 356 ms QRS Duration : 108 ms Q-T Interval : 470 ms QTC Calculation(Bazett) : 411 ms Calculated P Blanchester : 75 degrees Calculated R Blanchester : 49 degrees Calculated T Blanchester : 74 degrees SINUS BRADYCARDIA WITH 1ST DEGREE AV BLOCK WITH PREMATURE ATRIAL COMPLEXES OTHERWISE NORMAL ECG Confirmed by MD PITA, PhD, WALDEMAR ([id number]) on 03/05/2024 1:18:52 PM NAME : BRANDI DALTON PID : [id number] : 1940 Gender : Male Race : ORD : [id number] Procedure Date : Feb 09 2024 16:02:03 Edit Date : Mar 05 2024 13:18:58 Diagnosis: SINUS BRADYCARDIA WITH 1ST DEGREE AV BLOCK WITH PREMATURE ATRIAL COMPLEXES OTHERWISE NORMAL ECG Confirmed by MD PITA, PhD, WALDEMAR ([id number]) on 03/05/2024 1:18:52 PM Test Reason : Post-OP Location : 23 : J2 SHANELL-019 Overread By : MD PITA, PhD,WALDEMAR Edited By : MD PITA, PhD,WALDEMAR Referred By : , Acquired by : [id number], Normal [facility] ECG COMPLETE Ventricular Rate : 1 07 BPM Atrial Rate : 357 BPM QRS Duration : 108 ms Q-T Interval : 354 ms QTC Calculation(Bazett) : 472 ms Calculated R Blanchester : 50 degrees Calculated T Blanchester : 87 degrees ATRIAL FLUTTER WITH VARIABLE A-V BLOCK NONSPECIFIC ST AND T WAVE ABNORMALITY ABNORMAL ECG Confirmed by MD CHANG HEBA ([id number]) on 02/15/2024 4:48:05 PM NAME : SANTO DALTOND PID : [id number] : 1940 Gender : Male Race : ORD : [id number] Procedure Date : Feb 09 2024 11:27:27 Edit Date : Feb 15 2024 16:48:07 Diagnosis: ATRIAL FLUTTER WITH VARIABLE A-V BLOCK NONSPECIFIC ST AND T WAVE ABNORMALITY ABNORMAL ECG Confirmed by MD CHANG HEBA ([id number]) on 02/15/2024 4:48:05 PM Test Reason : Pre-OP Location : 23 : J2NS 019 Overread By : MD CHANG HEBA Edited By : MD CHANG HEBA Referred By : , Acquired by : [id number], Normal [facility] ECHO TRANSESOPHAGEALon 02-08 CONCLUSIONS: - Exam [...] [facility] Echocardiography Report: Transesophageal Echo [facility] [place] J1-5 Date of service: 02/09/2024 1:23:25 PM SUPERVISOR Ordering physician: KENDRA MENDOZA Indication: Pre Cardioversion, Pre AF Ablation Technologist: fellow Fellow: Dev Crowley MD Interpreting physician: Asad Pressley MD PATIENT: Name: MR. BRANDI DALTON JR : 1940 Age: 83 years Gender: [...] shunting. [facility] ECHO TRANSESOPHAGEAL Echocardiography Report: Transesophageal Echo [facility] J1-5 Date of service: 02/09/2024 1:23:25 PM SUPERVISOR Ordering physician: KENDRA MENDOZA Indication: Pre Cardioversion, Pre AF Ablation Technologist: fellow Fellow: Dev Crowley MD Interpreting physician: Asad Pressley MD PATIENT: Name: MR. BRANDI DALTON : 1940 Age: 83 years Gender: M [...] * * Final * * * CC [employer] Image : [id number] Normal [facility] NURSING PROGon 02-09-2024 NURSING PROG HNO ID: [id number] Author: NELLY WONG, RN Service: ? Author Type: Registered Nurse [...] CARDIOLOGY Normal [facility] 02-05-2024 CNPN Telephone (EPSMN) BRANDI DALTON ([id number]) 1940 M Date Time Provider Department 02/05/24 KENDRA MENDOZA EPSMN During your visit today, we recorded the [...] Encounter Status:Closed by SHAWANDA VARGAS on 02/05/24 [facility] CNOVmateo 02-04-2024 CNOV Office Visit (MEGAN Rizzo HF RHONA) BRANDI DALTON ([id number]) 1940 M Date Time Provider Department 02/04/24 4:00 PM KENDRA MENDOZA CARD CHF RHONA During your visit today, we recorded the following information about you: Pulse Blood pressure Weight Height 88/minute 135/94 71.9 kg 1.651 m Kendra Mendoza MD 03/16/2024 6:00 PM Addendum Heart [facility] Vascular [facility] SECTION OF HEART FAILURE and CARDIAC TRANSPLANT MEDICINE OUTPATIENT VISIT DATE February 04, 2024 OUTPATIENT VISIT TYPE Consultation PRIMARY CARE PHYSICIAN: Jailyn Meeks MD [address] [place] [id number] CHIEF COMPLAINT: HF NURSING INTAKE (Patient?s concerns and/or recent hospitalizations/ER visits): [place] [facility] PEREZ is a 83 y/o male coming from [place], [place] for a cardiac evaluation PMHx of [...] was a physically active athletic 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 He saw Dr. Yeager in [place] who did not address shortness of breath [...] 1947: PAST SURGICAL HISTORY OF Comment: Tonsils 1968: PAST SURGICAL HISTORY OF Comment: Left pat [...] PAL/PROST (M (more content not included)... Normal [facility] Corey 02-04-2024 CNPN Telephone (CARD [facility]) BRANDI DALTON ([id number]) 1940 Toney Date Time Provider Department 02/04/24 KENDRA MENDOZA CARD [facility] RHONA During your visit today, we recorded the following information about you: Kendra Mendoza MD 02/04/2024 5:58 PM Signed please arrange SHARON with cardioversion for as soon as possible. Patient has been on eliquis 5 mg bid > 6 mo but has missed a few doses so SHARON is needed. Can you schedule for 02/05/24 or 02/09/24 Kendra Mendoza (Including my assistant manager retail Fidelina Lange to keep her informed) THANKS Fidelina Lange 02/05/2024 9:36 AM Signed Completed in a separate encounter. Allergies As of Date: 02/04/2024 (No Known Allergies) Date Reviewed: 02/04/2024 Reviewed by: Katelyn Stevenson RN - Fully Assessed Prescriptions as of 04/01/2024 - KLOR-CON 10 10 mEq tablet Take 1 tablet by mouth as needed (on days that you take lasix). - LASIX 40 mg tablet Take 1 tablet by mouth as needed (for weight gain/ fluid retention). - apixaban (ELIQUIS) 5 mg tab(s) Take 5 mg by mouth two times a day. - Multivitamins-Minerals- Lutein (CENTRUM SILVER) tab Take 1 tablet by mouth once daily. - magnesium oxide 400 mg magnesium tab Take 400 mg by mouth once daily. - lisinopril (ZESTRIL) 5 mg tablet Take [...] by mouth. Problem List As Of Date: 02/04/2024 (None) Encounter Status:Closed by FIDELINA LANGE on 10/25/24 Normal [facility] ECG COMPLETEon 02-04-2024 ECG COMPLETE Ventricular Rate : 9 0 BPM QRS Duration : 116 ms Q-T Interval : 370 ms QTC Calculation(Bazett) : 452 ms Calculated R Blanchester : 41 degrees Calculated T Blanchester : -20 degrees ATRIAL FIBRILLATION WITH PREMATURE VENTRICULAR COMPLEXES NONSPECIFIC ST AND T WAVE ABNORMALITY ABNORMAL ECG Confirmed by ASAD PRESSLEY MD ([id number]) on 02/17/2024 9:49:18 PM NAME : BRANDI DALTON PID : [id number] : 1940 Gender : Male Race : ORD : [id number] Procedure Date : Feb 04 2024 14:39:43 [...] OSMAN RODRIGUEZ Acquired by : ALEJANDRO MURPHY Normal [facility] [id number] 02-04-2024 ECG01 Ventricular Rate : 1 11 BPM QRS Duration : 100 ms Q-T Interval : 348 ms QTC Calculation(Bazett) : 473 ms Calculated R Blanchester : 26 degrees Calculated T Blanchester : -61 degrees ATRIAL FIBRILLATION WITH RAPID VENTRICULAR RESPONSE WITH PREMATURE VENTRICULAR COMPLEXES ABNORMAL ECG Confirmed by ASAD PRESSLEY MD ([id number]) on 02/18/2024 8:28:49 PM NAME : BRANDI DALTON PID : [id number] : 1940 Gender : Male Race : [...] : , Acquired by : Adele chan [facility] ECG 12 Leadon 12-28-2023 ECG revealed atrial fibrillation with RVR, diffuse ST and T changes [facility] Work Phone: Office Visit (Cardiology)on 12-01-2022 Follow-up visit Diagnoses/Problems [...] up in 6 months Chief Complaint BRANDI DALTON is being seen for results. Patient is [...] 500 MG CAPSTAKE 1 CAPSULE Daily Saw [place] 450 MG Oral CapsuleTAKE DIRECTED. Selenium 200 [...] Vital Signs Recorded: 01Dec2022 01:03PMRecorded: 01Dec2022 12:48PM [id number], RUE, Sitting [id number], RUE, Sitting Heart Rate76, L Radial Height5 ft 6 in Gvwtwf752 lb BMI Gqlgcrljxy89.41 kg/m2 BSA Calculated1.89 Tobacco Useb) No Falls Screening (Age 18+)a) No falls within the (more content not included)... Normal [employer] Tobacco Screening.on 023 Fall risk assessment a) No falls within the last year [facility] 250 DO Work Phone: Tobacco use status CPH[facility] b) No [facility] 250 DO Work Phone: COUNT INCLUDES THE [facility] echo transesophageal SHARON on 10-31-2022 COUNT INCLUDES THE [facility] echo transesophageal [facility] Main [place] [address] [place] [address] Echocardiogram Signed Patient: Brandi Dalotn MR#: [id number] 9 : 1940 Acct:[id number] Age/Sex: 82 / M ADM Date: 10/31/22 Loc: MD Room: Type: [facility] Attending Dr: Avelina Chowdhury MD Ordering Provider: Avelina Chowdhury MD, [facility] Date of Service: 10/31/22/ COUNT INCLUDES THE [facility]/COUNT INCLUDES THE [facility] echo transesophageal SHARON: DYSPNEA, MR, A-FIB. Copies to: Avelina Chowdhury MD, [facility] Reason For Study: DYSPNEA, MR, A-FIB. History: [...] seen. Transcribed By: SCV Performed At: 10/31/22 1244 Signed By: Avelina Chowdhury MD, FACC 10/31/22 7001 [facility] Basic Metabolic Panelon 05-2 Anion gap [Moles/Vol] 9.3 mmol/L Normal 6.0-15.0 [facility] Comment on above: Performed By: #### B MP, CBC #### [facility] [address] Calcium [Mass/Vol] 9.1 mg/dL Normal 8.6-10.3 [facility] Comment on above: Result Comment: PERF ORMED BY: [place] [address] PATHOLOGIST CONTINUITY TESTER LILLIAN TILLMAN M.D. Performed By: #### B MP, CBC #### [facility] 1111 [place] [address] [place] Chloride [Moles/Vol] 101 mmol/L Normal 98-107 [facility] Comment on above: Performed By: #### B MP, CBC #### [facility] [address] [place] [address] [place] CO2 [Moles/Vol] 34.3 mmol/L High 21.0-31.0 [facility] Comment on above: Performed By: #### B MP, CBC #### [facility] [address] [place] [address] [place] Creatinine [Mass/Vol] 1.30 mg/dL Normal 0.70-1.30 [facility] Comment on above: Performed By: #### B MP, CBC #### [facility] [address] [place] [address] [place] GFR/1.73 sq M.predicted MDRD (S/P/Bld) [Vol rate/Area] 54.849 mL/min/{1.73_m2} Normal [facility] Comment on above: Performed By: #### B MP, CBC #### [place] [address] [place] Glucose [Mass/Vol] 89 mg/dL Normal 70-100 [facility] Comment on above: Result Comment: [facility] Glucose Reference Range is dependent on time and content of last meal. Glucose of more than 200 mg/dL in a nonstressed, ambulatory subject supports the diagnosis of Diabetes Mellitus. ADA recommended reference range Performed By: #### B MP, CBC #### [address] Potassium [Moles/Vol] 4.6 mmol/L Normal 3.5-5.1 [facility] Comment on above: Performed By: #### B MP, CBC #### [address] Sodium [Moles/Vol] 140 mmol/L Normal 136-145 [facility] Comment on above: Performed By: #### B MP, CBC #### [address] Urea nitrogen [Mass/Vol] 29 mg/dL High 7-25 [facility] Comment on above: Performed By: #### B MP, CBC #### [address] Complete Blood Count Auto Di ffon 10-27-2022 Basophils (Bld) [#/Vol] 0.1 10*3/uL Normal 0.0-0.2 [facility] Comment on above: Result Comment: PERF ORMED BY: [place] [address] PATHOLOGIST CONTINUITY TESTER LILLIAN TILLMAN M.D. Performed By: #### B MP, CBC #### [place] [address] [place] Basophils/100 WBC (Bld) 1.1 % Normal . [facility] Comment on above: Performed By: #### B MP, CBC #### [facility] [address] [place] [address] [place] Eosinophils (Bld) [#/Vol] 0.2 10*3/uL Normal 0.0-0.45 [facility] Comment on above: Performed By: #### B MP, CBC #### [address] Eosinophils/100 WBC (Bld) 3.2 % Normal . [facility] Comment on above: Performed By: #### B MP, CBC #### [facility] [address] Erythrocyte distribution width (RBC) [Ratio] 14.4 % Normal 12.0-14.8 [facility] Comment on above: Performed By: #### B MP, CBC #### [facility] [address] Hematocrit (Bld) [Volume fraction] 43.0 % Normal 38.8-50.0 [facility] Comment on above: Performed By: #### B MP, CBC #### [address] Hemoglobin (Bld) [Mass/Vol] 14.4 g/dL Normal 13.0-17.0 [facility] Comment on above: Performed By: #### B MP, CBC #### [address] Lymphocytes (Bld) [#/Vol] 1.0 10*3/uL Normal 1.00-4.8 [facility] Comment on above: Performed By: #### B MP, CBC #### [address] Lymphocytes/100 WBC (Bld) 21.1 % Normal . [facility] Comment on above: Performed By: #### B MP, CBC #### [address] MCH (RBC) [Entitic mass] 33.8 pg Normal 27.5-35.2 [facility] Comment on above: Performed By: #### B MP, CBC #### [address] MCV (RBC) [Entitic vol] 100.8 fL Normal 83.5-101 [facility] Comment on above: Performed By: #### B MP, CBC #### [address] Mean Corpuscular HGB Conc 33.5 g/dL Normal 32.5-35.6 [facility] Comment on above: Performed By: #### B MP, CBC #### [facility] [address] [place] [address] [place] Monocytes (Bld) [#/Vol] 0.6 10*3/uL Normal 0.0-0.8 [facility] Comment on above: Performed By: #### B MP, CBC #### [facility] [address] Monocytes/100 WBC (Bld) 11.8 % Normal . [facility] Comment on above: Performed By: #### B MP, CBC #### [facility] [address] Neutrophils (Bld) [#/Vol] 2.9 10*3/uL Normal 1.8-7.7 [facility] Comment on above: Performed By: #### B MP, CBC #### [address] Neutrophils/100 WBC (Bld) 62.8 % Normal . [facility] Comment on above: Performed By: #### B MP, CBC #### [address] NRBC% 0.1 /100{WBC} Normal 0-0.5 [facility] Comment on above: Performed By: #### B MP, CBC #### [facility] [address] Platelet mean volume (Bld) [Entitic vol] 8.0 fL Normal 6.6-10.1 [facility] Comment on above: Performed By: #### B MP, CBC #### [facility] [address] [place] [address] [place] Platelets (Bld) [#/Vol] 213 10*3/uL Normal 150-450 [facility] Comment on above: Performed By: #### B MP, CBC #### [place] [address] [place] RBC (Bld) [#/Vol] 4.27 10*6/uL Normal 3.90-5.60 [facility] Comment on above: Performed By: #### B MP, CBC #### [facility] [address]111 [place] [address] [facility] WBC (Bld) [#/Vol] 4.7 10*3/uL Normal 4.1-10.5 [facility] Comment on above: Performed By: #### B ELIZABETH MCCARTHY #### [facility] [address] [place] [id number] [facility] Office Visit (Cardiology)on 10-24-2022 Follow-up visit Diagnoses/Problems [...] with the patient: ECG Chief Complaint BRANDI DALTON is being seen for SELF REFERRAL. 82-year-old [...] Had an echocardiogram done recently at [facility] which I have the report reviewed. [...] rate. Currently he is on samples of [employer]. Assessment/recommendati ons: 1?persistent atrial fibrillation with controlled [...] Medication NameInst (more content not included)... Normal [employer] Tobacco Screening.on 023 Adult depression screening assessment No [facility] y 250 DO Work Phone: Fall risk assessment a) No falls within the last year [facility] y 250 DO Work Phone: Tobacco use status CPHS b) No [facility] 250 DO Work Phone: ECHOCARDIO M/2D COMPLETEon 0 09-16-2022 ECHOCARDIO M/2D COMPLETE Patient: BRANDI DALTONRodolfo Exam Date: 09/16/2022 : 1940 Gender:M Ordering : DR SAMANTHA MAYA . Admission #: [id number] Family : Order #: [id number] CLICK HERE TO VIEW EXAM ECHOCARDIOGRAM REPORT [...] on 09/16/2022 at 20:23 Normal [facility] BNPon 09-09-2022 Natriuretic peptide B (Bld) [Mass/Vol] 154.0 pg/mL Normal <=1,800.0 [facility] Comment on above: Performed By: #### T SH, T7, CMP, BNP ####[facility] [address] [place], [place] [address]Dr. Elver Gibson CBC AUTO DIFFon 09-09-2022 BASO # 0.0 103/ul Normal 0.0-0.1 [facility] Comment on above: Performed By: #### C BC ####[facility] [address] [place] [address]Dr. Elver Gibson Basophils/100 WBC (Bld) 0.6 % Normal 0.2-2.0 [facility] Comment on above: Performed By: #### C BC ####[facility] Ex[address] [place], [place] [address]Dr. Elver Gibson EO # 0.2 103/ul Normal 0.0-0.7 [facility] Comment on above: Performed By: #### C BC ####[facility] [address] [place], [place] [address]Dr. Elver Gibson Eosinophils/100 WBC (Bld) 4.1 % Normal 0.9-7.0 [facility] Comment on above: Performed By: #### C BC ####[facility] L[address] [place], [place] [address]Dr. Elver Gibson Erythrocyte distribution width (RBC) [Ratio] 13.5 % Normal 11.0-15.0 [facility] Comment on above: Performed By: #### C BC ####[facility] [address] [place], [place] [address]Dr. Elver Gibson Hematocrit (Bld) [Volume fraction] 42.9 % Normal 42.0-54.0 [facility] Comment on above: Performed By: #### C BC ####[facility] Tau[address] [place], [place] [address]Dr. Elver Gibson Hemoglobin (Bld) [Mass/Vol] 14.5 g/dL Normal 14.0-18.0 [facility] Comment on above: Performed By: #### C BC ####[facility] [address] [place], [place] [address]Dr. Elver Gibson IG # 0.01 10e3/ul Normal 0.00-0.03 [facility] Comment on above: Performed By: #### C BC ####[facility] [address] [place], [place] [address]Dr. Elver Gibson IG % 0.2 % Normal 0.0-0.5 [facility] Comment on above: Performed By: #### C BC ####[facility] [address] [place], [place] [address]Dr. Elver Gibson LYMPH # 1.2 103/ul Normal 1.2-3.8 [facility] Comment on above: Performed By: #### C BC ####[facility] [address] [place], [place] [address]Dr. Elver Gibson Lymphocytes/100 WBC (Bld) 21.8 % Normal 20.5-60.0 [facility] Comment on above: Performed By: #### C BC ####[facility] [address] [place] [address]Dr. Elver Gibson MANUAL DIFF REQ NO Normal [facility] Comment on above: Performed By: #### C BC ####[facility] [address] [place] [address]Dr. Elver Gibson MCH (RBC) [Entitic mass] 33.4 pg Normal 25.9-34.0 [facility] Comment on above: Performed By: #### C BC ####[facility] [address] [place] [address]Dr. Elver Gibson MCHC (RBC) [Mass/Vol] 33.8 g/dL Normal 29.9-35.2 [facility] Comment on above: Performed By: #### C BC ####[facility] [address] [place] [address]Dr. Elver Arthur MCV (RBC) [Entitic vol] 98.8 fL Critically high 80.0-94.0 [facility] Comment on above: Performed By: #### C BC ####[facility] Mgcw[address] [place], [place] [address]Dr. Elver Arthur MONO # 0.7 103/ul Normal 0.3-0.8 [facility] Comment on above: Performed By: #### C BC ####[facility] [address] [place], [place] [address]Dr. Marianneyemi Gibson Monocytes/100 WBC (Bld) 13.3 % Critically high 1.7-12.0 [facility] Comment on above: Performed By: #### C BC ####[facility] [address] [place] [address]Dr. Elver Arthur NEUT # 3.3 103/ul Normal 1.4-6.5 [facility] Comment on above: Performed By: #### C BC ####[facility] Ed[address] [place], [place] [address]Dr. Elver Gibson Neutrophils/100 WBC (Bld) 60.0 % Normal 43.0-75.0 [facility] Comment on above: Performed By: #### C BC ####[facility] [address] [place] [address]Dr. Elver Gibson Platelet mean volume (Bld) [Entitic vol] 9.5 fL Normal 9.5-13.5 [facility] Comment on above: Performed By: #### C BC ####[facility] [address] [place] [address]Dr. Elver Gibson PLT 197 103/ul Normal 150-450 [facility] Comment on above: Performed By: #### C BC ####[facility] [address] [place] [address]Dr. Elver Gibson RBC 4.34 106/ul Critically low 4.70-6.10 [facility] Comment on above: Performed By: #### C BC ####[facility] [address] [place] [address]Dr. Elver Gibson WBC 5.4 103/ul Normal 4.0-11.0 [facility] Comment on above: Performed By: #### C BC ####[facility] [address] [place] [address]Dr. Elver Arthur FREE THYROXINE INDEX T7on FTI 2.21 Normal 1.30-4.50 [facility] Comment on above: Performed By: #### T SH, T7, CMP, BNP ####[facility] [address] [place] [address]Dr. Elver Gibson T3U 35.0 % Normal 33.0-40.0 [facility] Comment on above: Performed By: #### T SH, T7, CMP, BNP ####[facility] [address] [place] [address]Dr. Elver Arthur T4 [Mass/Vol] 6.30 ug/dL Normal 4.50-12.10 [facility] Comment on above: Performed By: #### T SH, T7, CMP, BNP ####[facility] [address] [place] [address]Dr. Elver iGbson PROF 14(COMP METB)on 023 Albumin [Mass/Vol] 3.8 g/dL Normal 3.4-5.0 [facility] Comment on above: Performed By: #### T SH, T7, CMP, BNP ####[facility] [address] [place] [address]Dr. Marianneyemi Arthur Albumin/Globulin [Mass ratio] 1.1 {ratio} Normal [facility] Comment on above: Performed By: #### T SH, T7, CMP, BNP ####[facility] [address] [place] [address]Dr. Marianneyemi Arthur ALP [Catalytic activity/Vol] 74 U/L Normal 46-116 [facility] Comment on above: Performed By: #### T SH, T7, CMP, BNP ####[facility] Ig[address] [place], [place] [address]Dr. Elver Gibson ALT [Catalytic activity/Vol] 27 U/L Normal 16-63 [facility] Comment on above: Performed By: #### T SH, T7, CMP, BNP ####[facility] [address] [place], [place] [address]Dr. Elver Gibson Anion gap [Moles/Vol] 10.8 mmol/L Normal [facility] Comment on above: Performed By: #### T SH, T7, CMP, BNP ####[facility] [address] [place], [place] [address]Dr. Elver Gibson AST [Catalytic activity/Vol] 30 U/L Normal 15-37 [facility] Comment on above: Performed By: #### T SH, T7, CMP, BNP ####[facility] [address] [place], [place] [address]Dr. Elver Gibson Bilirubin [Mass/Vol] 0.7 mg/dL Normal 0.2-1.0 [facility] Comment on above: Performed By: #### T SH, T7, CMP, BNP ####[facility] [address] [place], [place] [address]Dr. Elver Gibson Calcium [Mass/Vol] 9.3 mg/dL Normal 8.5-10.1 [facility] Comment on above: Performed By: #### T SH, T7, CMP, BNP ####[facility] [address] [place] [address]Dr. Elver Gibson Chloride [Moles/Vol] 104 mmol/L Normal 98-107 [facility] Comment on above: Performed By: #### T SH, T7, CMP, BNP ####[facility] [address] [place] [address]Dr. Elver Gibson CO2 [Moles/Vol] 31.9 mmol/L Normal 21.0-32.0 [facility] Comment on above: Performed By: #### T SH, T7, CMP, BNP ####[facility] [address] [place] [address]Dr. Elver Gibson Creatinine [Mass/Vol] 1.19 mg/dL Normal 0.70-1.30 [facility] Comment on above: Performed By: #### T SH, T7, CMP, BNP ####[facility] [address] [place] [address]Dr. Elver Gibson EGFR-AF MARTINIQUAIS >60 Normal >=60 [facility] Comment on above: Performed By: #### T SH, T7, CMP, BNP ####[facility] [address] [place] [address]Dr. Elver Arthur EGFR-NON AF MARTINIQUAIS 59 mL/min/1.73m2 Critically low >=60 [facility] Comment on above: Performed By: #### T SH, T7, CMP, BNP ####[facility] [address] [place] [address]Dr. Elver Gibson Globulin (S) [Mass/Vol] 3.5 g/dL Normal [facility] Comment on above: Performed By: #### T SH, T7, CMP, BNP ####[facility] [address] [place] [address]Dr. Elver Gibson Glucose [Mass/Vol] 124 mg/dL Critically high 74-106 [facility] Comment on above: Performed By: #### T SH, T7, CMP, BNP ####[facility] [address] [place] [address]Dr. Marianneyemi Gibson Potassium [Moles/Vol] 4.7 mmol/L Normal 3.5-5.1 [facility] Comment on above: Performed By: #### T SH, T7, CMP, BNP ####[facility] [address] [place] [address]Dr. Elver Gibson Protein [Mass/Vol] 7.3 g/dL Normal 6.4-8.2 The [facility] Comment on above: Performed By: #### T SH, T7, CMP, BNP ####[facility] [address] [place] [address]Dr. Elver Gibson Sodium [Moles/Vol] 142 mmol/L Normal 136-145 The [facility] Comment on above: Performed By: #### T SH, T7, CMP, BNP ####[facility] [address] [place] [address]Dr. Elver Gibson Urea nitrogen [Mass/Vol] 27.0 mg/dL Critically high 7.0-18.0 [facility] Comment on above: Performed By: #### T SH, T7, CMP, BNP ####[facility] [address] [place] [address]Dr. Elver Gibson Urea nitrogen/Creatinine [Mass ratio] 22.7 mg/mg Normal [facility] Comment on above: Performed By: #### T SH, T7, CMP, BNP ####[facility] [address] [place] [address]Dr. Elver Gibson TSHon 09-09-2022 TSH 1.455 uIU/mL Normal 0.358-3.740 [facility] Comment on above: Performed By: #### T SH, T7, CMP, BNP ####[facility] [address] [place] [address]Dr. Elver Gibson XR CHEST 2 Von 09-09-2022 [...] No acute disease. Electronically authenticated by: VAN YEVGEINY Date: 2022-09-09 12:48 Normal [facility] INSULINon 02-15-2022 Insulin 11.3 uIU/mL Normal 2.6-24.9 [facility] Comment on above: Performed By: #### I NSULIN #### [facility] [address] [place] [address] [address] Elver iGbson T4, T3U, FTI LABCORPon 02-15 Free Thyroxine Index 2.1 Normal 1.2-4.9 [facility] Comment on above: Performed By: #### T HYLC #### [facility] [address] [place] [address] Dr. Elver Gibson T3 Uptake 30 % Normal 24-39 [facility] Comment on above: Performed By: #### T HYLC #### [facility] [address] [place] [address] Dr. Elver Gibson T4 [Mass/Vol] 7.0 ug/dL Normal 4.5-12.0 [facility] Comment on above: Performed By: #### T HYLC #### [facility] [address] [place] [address] Dr. Elver Gibson BNPon 02-14-2022 Natriuretic peptide B (Bld) [Mass/Vol] 229.0 pg/mL Normal <=1,800.0 [facility] Comment on above: Performed By: #### B MARKETING PRODUCTION SPECIALIST, CMP, LIPID, TSH, URIC #### [facility] [address] [place] [address] [address] Elver Gibson CBC AUTO DIFFon 02-14-2022 BASO # 0.0 103/ul Normal 0.0-0.1 [facility] Comment on above: Performed By: #### C BC ####[facility] [address] [place] [address]Dr. Elver Gibson Basophils/100 WBC (Bld) 0.7 % Normal 0.2-2.0 [facility] Comment on above: Performed By: #### C BC ####[facility] [address] [place] [address]Dr. Elver Gibson EO # 0.2 103/ul Normal 0.0-0.7 [facility] Comment on above: Performed By: #### C BC ####[facility] [address] [place], [place] [address]Dr. Elver Gibson Eosinophils/100 WBC (Bld) 3.9 % Normal 0.9-7.0 [facility] Comment on above: Performed By: #### C BC ####[facility] [address] [place], [place] [address]Dr. Elver Gibson Erythrocyte distribution width (RBC) [Ratio] 13.2 % Normal 11.0-15.0 [facility] Comment on above: Performed By: #### C BC ####[facility] M[address]vsv[address] [place], [place] [address]Dr. Elver Gibson Hematocrit (Bld) [Volume fraction] 42.9 % Normal 42.0-54.0 [facility] Comment on above: Performed By: #### C BC ####[facility] [address] [place], [place] [address]Dr. Elver Gibson Hemoglobin (Bld) [Mass/Vol] 14.2 g/dL Normal 14.0-18.0 [facility] Comment on above: Performed By: #### C BC ####[facility] [address] [place], [place] [address]Dr. Elver Gibson IG # 0.01 10e3/ul Normal 0.00-0.03 [facility] Comment on above: Performed By: #### C BC ####[facility] [address] [place], [place] [address]Dr. Elver Gibson IG % 0.2 % Normal 0.0-0.5 [facility] Comment on above: Performed By: #### C BC ####[facility] [address] [place], [place] [address]Dr. Elver Gibson LYMPH # 1.4 103/ul Normal 1.2-3.8 [facility] Comment on above: Performed By: #### C BC ####[facility] [address] [place] [address]Dr. Elver Arthur Lymphocytes/100 WBC (Bld) 24.0 % Normal 20.5-60.0 [facility] Comment on above: Performed By: #### C BC ####[facility] [address] [place] [address]Dr. Elver Arthur MANUAL DIFF REQ NO Normal The [facility] Comment on above: Performed By: #### C BC ####[facility] [address] [place] [address]Dr. Elver Arthur MCH (RBC) [Entitic mass] 33.3 pg Normal 25.9-34.0 [facility] Comment on above: Performed By: #### C BC ####[facility] [address] [place], [place] [address]Dr. Elver Arthur MCHC (RBC) [Mass/Vol] 33.1 g/dL Normal 29.9-35.2 [facility] Comment on above: Performed By: #### C BC ####[facility] [address] [place] [address]Dr. Elver Arthur MCV (RBC) [Entitic vol] 100.7 fL Critically high 80.0-94.0 [facility] Comment on above: Performed By: #### C BC ####[facility] [address] [place], [place] [address]Dr. Elver Arthur MONO # 0.7 103/ul Normal 0.3-0.8 [facility] Comment on above: Performed By: #### C BC ####[facility] [address] [place], [place] [address]Dr. Marianneyemi Gibson Monocytes/100 WBC (Bld) 12.7 % Critically high 1.7-12.0 [facility] Comment on above: Performed By: #### C BC ####[facility] [address] [place], [place] [address]Dr. Elver Gibson NEUT # 3.3 103/ul Normal 1.4-6.5 [facility] Comment on above: Performed By: #### C BC ####[facility] [address] [place] [address]Dr. Elver Gibson Neutrophils/100 WBC (Bld) 58.5 % Normal 43.0-75.0 [facility] Comment on above: Performed By: #### C BC ####[facility] [address] [place] [address]Dr. Elver Gibson Platelet mean volume (Bld) [Entitic vol] 9.6 fL Normal 9.5-13.5 [facility] Comment on above: Performed By: #### C BC ####[facility] [address] [place] [id number]. Elver Gibson PLT 183 103/ul Normal 150-450 [facility] Comment on above: Performed By: #### C BC ####[facility] [address] [place] [address]Dr. Elver Gibson RBC 4.26 106/ul Critically low 4.70-6.10 The [facility] Comment on above: Performed By: #### C BC ####[facility] [address] [place] [address]Dr. Elver Gibson WBC 5.7 103/ul Normal 4.0-11.0 [facility] Comment on above: Performed By: #### C BC ####[facility] [address] [place] [address]Dr. Elver Gibson GLYCOHEMOGLOBIN A1Con 2021 ADA RECOMMENDATION SEE BELOW Normal The [facility] Comment on above: Result Comment: ADA RECOMMENDED LIMIT 4.0 - 6.0 ADA THERAPEUTIC TARGET < 7.0 ACTION SUGGESTED > 7.0 Performed By: #### A 1C #### [facility] [address] [address] [address] Elver Gibson Glucose [Mass/Vol] 108 mg/dL Normal The [facility] Comment on above: Performed By: #### A 1C #### [facility] [address] [address] [address] Elver Gibson HbA1c (Bld) [Mass fraction] 5.4 % Normal 4.5-6.2 [facility] Comment on above: Performed By: #### A 1C #### [facility] [address] [address] [address] Elver Gibson LIPID PROFILEon 02-14-2022 CHOL-HDL RATIO NORM SEE BELOW Normal [facility] Comment on above: Result Comment: 3.3 - 4.4 LOW RISK 4.4 - 7.1 AVERAGE RISK 7.1 - 11.0 MODERATE RISK >11.0 HIGH RISK Performed By: #### B MARKETING PRODUCTION SPECIALIST, CMP, LIPID, TSH, URIC #### [facility] [address] [address] [address] Elver Gibson Cholesterol [Mass/Vol] 174 mg/dL Normal <=200 [facility] Comment on above: Performed By: #### B MARKETING PRODUCTION SPECIALIST, CMP, LIPID, TSH, URIC #### [facility] [address] [address] [address] Elver Gibson Cholesterol in HDL [Mass/Vol] 63 mg/dL Critically high 40-60 [facility] Comment on above: Performed By: #### B MARKETING PRODUCTION SPECIALIST, CMP, LIPID, TSH, URIC #### [facility] [address] [address] [address] Elver Gibson Cholesterol in LDL [Mass/Vol] 100.4 mg/dL Normal [facility] Comment on above: Performed By: #### B MARKETING PRODUCTION SPECIALIST, CMP, LIPID, TSH, URIC #### [facility] [address] [address] [address] Elver Gibson Cholesterol.total/Cho lesterol in HDL [Mass ratio] 2.8 {ratio} Normal [facility] Comment on above: Performed By: #### B MARKETING PRODUCTION SPECIALIST, CMP, LIPID, TSH, URIC #### [facility] [address] [address] [address] Elver Gibson HDL NORMAL > or = 60 mg/dl - LO W CARDIOVASCULAR RISK <40 mg/dl - HIGH CARDIOVASCULAR RISK Normal [facility] Comment on above: Performed By: #### B MARKETING PRODUCTION SPECIALIST, CMP, LIPID, TSH, URIC #### [facility] [address] [address] [address] Elver Gibson LDL CALC NORMAL SEE BELOW Normal [facility] Comment on above: Result Comment: <100 mg/dl OPTIMAL 100 - 129 mg/dl NEAR OR ABOVE OPTIMAL 130 - 159 mg/dl BORDERLINE HIGH 160 - 189 mg/dl HIGH >190 mg/dl VERY HIGH Performed By: #### B MARKETING PRODUCTION SPECIALIST, CMP, LIPID, TSH, URIC #### [facility] [address] [address] [address] Elver Gibson Triglyceride [Mass/Vol] 53 mg/dL Normal <=150 [facility] Comment on above: Performed By: #### B MARKETING PRODUCTION SPECIALIST, CMP, LIPID, TSH, URIC #### [facility] [address] [address] [address] Elver Gibson VLDL CALC 10.6 mg/dL Normal [facility] Comment on above: Performed By: #### B MARKETING PRODUCTION SPECIALIST, CMP, LIPID, TSH, URIC #### [facility] [address] [place] [address] Dr. Elver Gibson PROF 14(COMP METB)on 022 Albumin [Mass/Vol] 3.7 g/dL Normal 3.4-5.0 [facility] Comment on above: Performed By: #### B MARKETING PRODUCTION SPECIALIST, CMP, LIPID, TSH, URIC #### [facility] [address] [address] [address] Elver Gibson Albumin/Globulin [Mass ratio] 1.1 {ratio} Normal [facility] Comment on above: Performed By: #### B MARKETING PRODUCTION SPECIALIST, CMP, LIPID, TSH, URIC #### [facility] [address] [address] [address] Elver Gibson ALP [Catalytic activity/Vol] 64 U/L Normal 46-116 [facility] Comment on above: Performed By: #### B MARKETING PRODUCTION SPECIALIST, CMP, LIPID, TSH, URIC #### [facility] [address] [address] [address] Elver Gibson ALT [Catalytic activity/Vol] 27 U/L Normal 16-63 [facility] Comment on above: Performed By: #### B MARKETING PRODUCTION SPECIALIST, CMP, LIPID, TSH, URIC #### [facility] [address] [address] [address] Elver Gibson Anion gap [Moles/Vol] 9.7 mmol/L Normal [facility] Comment on above: Performed By: #### B MARKETING PRODUCTION SPECIALIST, CMP, LIPID, TSH, URIC #### [facility] [address] [address] [address] Elver Gibson AST [Catalytic activity/Vol] 30 U/L Normal 15-37 [facility] Comment on above: Performed By: #### B MARKETING PRODUCTION SPECIALIST, CMP, LIPID, TSH, URIC #### [facility] [address] [place] [address] Dr. Elver Gibson Bilirubin [Mass/Vol] 0.7 mg/dL Normal 0.2-1.0 [facility] Comment on above: Performed By: #### B MARKETING PRODUCTION SPECIALIST, CMP, LIPID, TSH, URIC #### [facility] [address] [place] [address] Dr. Elver Gibson Calcium [Mass/Vol] 8.9 mg/dL Normal 8.5-10.1 [facility] Comment on above: Performed By: #### B MARKETING PRODUCTION SPECIALIST, CMP, LIPID, TSH, URIC #### [facility] [address] [place] [address] Dr. Elver Gibson Chloride [Moles/Vol] 104 mmol/L Normal 98-107 [facility] Comment on above: Performed By: #### B MARKETING PRODUCTION SPECIALIST, CMP, LIPID, TSH, URIC #### [facility] [address] [place] [address] Dr. Elver Gibson CO2 [Moles/Vol] 31.8 mmol/L Normal 21.0-32.0 The [facility] Comment on above: Performed By: #### B MARKETING PRODUCTION SPECIALIST, CMP, LIPID, TSH, URIC #### [facility] [address] [place] [address] Dr. Elver Gibson Creatinine [Mass/Vol] 1.19 mg/dL Normal 0.70-1.30 [facility] Comment on above: Performed By: #### B MARKETING PRODUCTION SPECIALIST, CMP, LIPID, TSH, URIC #### [facility] [address] [place] [address] Dr. Elver Gibson EGFR-AF MARTINIQUAIS >60 Normal >=60 The [facility] Comment on above: Performed By: #### B MARKETING PRODUCTION SPECIALIST, CMP, LIPID, TSH, URIC #### [facility] [address] [address] [address] Elver Gibson EGFR-NON AF MARTINIQUAIS 59 mL/min/1.73m2 Critically low >=60 [facility] Comment on above: Performed By: #### B MARKETING PRODUCTION SPECIALIST, CMP, LIPID, TSH, URIC #### [facility] [address] [place] [address] Dr. Elver Gibson Globulin (S) [Mass/Vol] 3.4 g/dL Normal [facility] Comment on above: Performed By: #### B MARKETING PRODUCTION SPECIALIST, CMP, LIPID, TSH, URIC #### [facility] [address] [place] [address] Dr. Elver Gibson Glucose [Mass/Vol] 97 mg/dL Normal 74-106 The [facility] Comment on above: Performed By: #### B MARKETING PRODUCTION SPECIALIST, CMP, LIPID, TSH, URIC #### [facility] [address] [place] [address] Dr. Elver Gibson Potassium [Moles/Vol] 4.5 mmol/L Normal 3.5-5.1 [facility] Comment on above: Performed By: #### B MARKETING PRODUCTION SPECIALIST, CMP, LIPID, TSH, URIC #### [facility] [address] [place] [address] Dr. Elver Gibson Protein [Mass/Vol] 7.1 g/dL Normal 6.4-8.2 The [facility] Comment on above: Performed By: #### B MARKETING PRODUCTION SPECIALIST, CMP, LIPID, TSH, URIC #### [facility] [address] [place] [address] Dr. Elver Gibson Sodium [Moles/Vol] 141 mmol/L Normal 136-145 The [facility] Comment on above: Performed By: #### B MARKETING PRODUCTION SPECIALIST, CMP, LIPID, TSH, URIC #### [facility] [address] [place] [address] Dr. Elver Gibson Urea nitrogen [Mass/Vol] 31.0 mg/dL Critically high 7.0-18.0 [facility] Comment on above: Performed By: #### B MARKETING PRODUCTION SPECIALIST, CMP, LIPID, TSH, URIC #### [facility] [address] [address] [address] Elver Gibson Urea nitrogen/Creatinine [Mass ratio] 26.1 mg/mg Normal [facility] Comment on above: Performed By: #### B MARKETING PRODUCTION SPECIALIST, CMP, LIPID, TSH, URIC #### [facility] [address] [address] [address] Elver Gibson TSHon 02-14-2022 TSH 1.829 uIU/mL Normal 0.358-3.740 [facility] Comment on above: Performed By: #### B MARKETING PRODUCTION SPECIALIST, CMP, LIPID, TSH, URIC #### [facility] [address] [address] [address] Elver Gibson URIC ACID SERUMon 02-14-2022 Urate [Mass/Vol] 7.1 mg/dL Normal 3.5-7.2 [facility] Comment on above: Performed By: #### B MARKETING PRODUCTION SPECIALIST, CMP, LIPID, TSH, URIC #### [facility] [address] [address] [address] Elver Gibson Ambulatory Clinical Summaryo 02-28-2020 Ambulatory Clinical Summary {[id number]}CD:[id number] Normal [facility] Ambulatory Clinical Summary {[id number]}CD:[id number] Normal [facility] Patient Educationon 02-28-20 20 Patient Education [...] severe dizz (more content not included)... Normal [facility] Urology Office/Clinic Noteon 02-28-2020 Urology Office/Clinic Note Chief Complaint 1 year with PSA Mr. Dalton is a 79-year-old gentleman with a history [...] With When Contact Information Arsalan Ryder MD, [place] [address] Additional Instructions: 1yr. w/ KUB and [...] intravenous solution, IV, Once losartan, Oral, Daily Niagara-3 Osteo Bi-Flex selenium, Oral, Daily Vitamin C, [...] Negative (09 (more content not included)... Normal [facility] Comment on above: Result Comment: Elec tronically Signed By: Arsalan Ryder MD, Roger Agosto\.br\Date and Time Signed: 02/28/20 10:32 EDT\.br\Electronically Co-Signed By: Marichuy Hernández MA\.br\Date and Time Co-Signed: 02/28/20 10:21 EDT No Panel Information [facility] Vital Signs Date Time Vital Sign Value Performing Clinician Faci lity 05-24-2024 11:23-0500 Body height 165.1 cm Kendra Mendoza MD Work Phone: [facility] 05-24-2024 11:23-0500 Body mass index (BMI) [Ratio] 25.79 kg/m2 Kendra Mendoza MD Work Phone: [facility] 05-24-2024 11:23-0500 Body weight 70.31 kg Kendra Mendoza MD Work Phone: [facility] 05-24-2024 11:23-0500 Diastolic blood pressure 79 mm[Hg] Kendra Mendoza MD Work Phone: [facility] 05-24-2024 11:23-0500 Heart rate 60 /min Kendra Mendoza MD Work Phone: [facility] 05-24-2024 11:23-0500 Respiratory rate 15 /min Kendra Mendoza MD Work Phone: [facility] 05-24-2024 11:23-0500 SaO2% (BldA) [Mass fraction] 94 % Kendra Mendoza MD Work Phone: [facility] 05-24-2024 11:23-0500 Systolic blood pressure 165 mm[Hg] Kendra Mendoza MD Work Phone: [facility] 05-06-2024 16:26-0500 Body height 165.[address] Qureshi MD Work Phone: [facility] 05-06-2024 16:26-0500 Body mass index (BMI) [Ratio] 25.79 kg/m2 Rd Qureshi MD Work Phone: [facility] 05-06-2024 16:26-0500 Body weight 70.[address] Qureshi MD Work Phone: [facility] 05-06-2024 16:26-0500 Diastolic blood pressure 68 mm[Hg] Rd Qureshi MD Work Phone: [facility] 05-06-2024 16:26-0500 Heart rate 55 /min Rd Qureshi MD Work Phone: [facility] 05-06-2024 16:26-0500 Systolic blood pressure 118 mm[Hg] Rd Qureshi MD Work Phone: [facility] 03-18-2024 10:15-0400 Body height 165.1 cm Compa Reay CAR INSPECTION AND REPAIR MANAGER.CN P Work Phone: [facility] 03-18-2024 10:15-0400 Body mass index (BMI) [Ratio] 26.01 kg/m2 Compa Reay CAR INSPECTION AND REPAIR MANAGER.ENGINEERING GEOLOGIST Work Phone: [facility] 03-18-2024 10:15-0400 Body weight 70.9 kg Compa Reay CAR INSPECTION AND REPAIR MANAGER.CN P Work Phone: [facility] 03-18-2024 10:15-0400 Diastolic blood pressure 86 mm[Hg] Compa Reay CAR INSPECTION AND REPAIR MANAGER.ENGINEERING GEOLOGIST Work Phone: [facility] 03-18-2024 10:15-0400 Heart rate 69 /min Compa Reay CAR INSPECTION AND REPAIR MANAGER.CN P Work Phone: [facility] 03-18-2024 10:15-0400 SaO2% (BldA) [Mass fraction] 97 % Compa Reay CAR INSPECTION AND REPAIR MANAGER.ENGINEERING GEOLOGIST Work Phone: [facility] 03-18-2024 10:15-0400 Systolic blood pressure 147 mm[Hg] Compa Reay CAR INSPECTION AND REPAIR MANAGER.ENGINEERING GEOLOGIST Work Phone: [facility] 02-09-2024 14:40-0400 Diastolic blood pressure 76 mm[Hg] Transesophageal Main [facility] 02-09-2024 14:40-0400 Heart rate 79 /min Transesophageal [facility] 02-09-2024 14:40-0400 Respiratory rate 16 /min Transesophageal [facility] 02-09-2024 14:40-0400 SaO2% (BldA) [Mass fraction] 91 % Transesophageal Main [facility] 02-09-2024 14:40-0400 Systolic blood pressure 115 mm[Hg] Transesophageal [facility] 02-09-2024 12:24-0400 Body temperature 97.7 [degF] Transesophageal [facility] 02-04-2024 16:16-0400 Body height 165.1 cm Kendra Mendoza MD Work Phone: [facility] 02-04-2024 16:16-0400 Body mass index (BMI) [Ratio] 26.38 kg/m2 Kendra Mendoza MD Work Phone: [facility] 02-04-2024 16:16-0400 Body weight 71.89 kg Kendra Mendoza MD Work Phone: [facility] 02-04-2024 16:16-0400 Diastolic blood pressure 94 mm[Hg] Kendra Mendoza MD Work Phone: [facility] 02-04-2024 16:16-0400 Heart rate 88 /min Kendra Mendoza MD Work Phone: [facility] 02-04-2024 16:16-0400 SaO2% (BldA) [Mass fraction] 96 % Kendra Mendoza MD Work Phone: [facility] 02-04-2024 16:16-0400 Systolic blood pressure 135 mm[Hg] Kendra Mendoza MD Work Phone: [facility] 12-25-2023 10:57-0400 Body height 165.1 cm Avelina Chowdhury MD Work Phone: [facility] 12-25-2023 10:57-0400 Body mass index (BMI) [Ratio] 27.79 kg/m2 Avelina Chowdhury MD Work Phone: [facility] 12-25-2023 10:57-0400 Body weight 75.75 kg Avelina Chowdhury MD Work Phone: [facility] 12-25-2023 10:57-0400 Diastolic blood pressure 82 mm[Hg] Avelina Chowdhury MD Work Phone: [facility] 12-25-2023 10:57-0400 Heart rate 120 /min Avelina Chowdhury MD Work Phone: [facility] 12-25-2023 10:57-0400 Systolic blood pressure 120 mm[Hg] Avelina Chowdhury MD Work Phone: [facility] 01-28-2023 13:33-0400 Body height 167.64 cm Samantha Ziegler Hoy Work Phone: [facility] [address] DO Work Phone: 01-28-2023 13:33-0400 Body mass index (BMI) [Ratio] 27.92 kg/m2 Samantha Toney Hoy Work Phone: [facility] 250 DO Work Phone: 01-28-2023 13:33-0400 Body surface area Derived from formula 1.88 m2 Samantha M Hoy Work Phone: [facility] 250 DO Work Phone: 01-28-2023 13:33-0400 Body weight 78.47 kg Samantha Ziegler Hoy Work Phone: [facility] 250 DO Work Phone: 01-28-2023 13:33-0400 Diastolic blood pressure 92 mm[Hg] Samantha M Hoy Work Phone: [facility] 250 DO Work Phone: 01-28-2023 13:33-0400 Diastolic blood pressure 90 mm[Hg] Samantha M Hoy Work Phone: [facility] DO Work Phone: 01-28-2023 13:33-0400 Diastolic blood pressure 80 mm[Hg] Samantha M Hoy Work Phone: [facility] DO Work Phone: 01-28-2023 13:33-0400 Heart rate 84 /min Samantha M Hoy Work Phone: [facility] 250 DO Work Phone: 01-28-2023 13:33-0400 Systolic blood pressure 162 mm[Hg] Samantha M Hoy Work Phone: [facility] 250 DO Work Phone: 01-28-2023 13:33-0400 Systolic blood pressure 152 mm[Hg] Samantha M Hoy Work Phone: [facility] 250 DO Work Phone: 01-28-2023 13:33-0400 Systolic blood pressure 124 mm[Hg] Samantha M Hoy Work Phone: [facility] 250 DO Work Phone: 01-28-2023 13:33-0400 91 1 Samantha M Hoy Work Phone: [facility] 250 DO Work Phone: Comment on above: PULRateLy 01-28-2023 13:33-0400 84 1 Samantha M Hoy Work Phone: [facility] 250 DO Work Phone: Comment on above: PULRateSit 01-28-2023 13:33-0400 90 1 Samantha M Hoy Work Phone: [facility] 250 DO Work Phone: Comment on above: PULRateSt 01-28-2023 13:28-0400 Body height 167.64 cm Samantha M Hoy Work Phone: [facility] 250 DO Work Phone: 01-28-2023 13:28-0400 Body mass index (BMI) [Ratio] 27.92 kg/m2 Samantha M Hoy Work Phone: [facility] 250 DO Work Phone: 01-28-2023 13:28-0400 Body surface area Derived from formula 1.88 m2 Samantha M Hoy Work Phone: [facility] 250 DO Work Phone: 01-28-2023 13:28-0400 Body weight 78.47 kg Samantha Toney Hoy Work Phone: [facility] 250 DO Work Phone: 01-28-2023 13:28-0400 Diastolic blood pressure 90 mm[Hg] Samantha M Hoy Work Phone: [facility] 250 DO Work Phone: 01-28-2023 13:28-0400 Heart rate 91 /min Samantha M Hoy Work Phone: [facility] DO Work Phone: 01-28-2023 13:28-0400 Systolic blood pressure 152 mm[Hg] Samantha M Hoy Work Phone: [facility] 250 DO Work Phone: 12-01-2022 13:03-0400 Diastolic blood pressure 60 mm[Hg] Samantha Toney Hoy Work Phone: TC[facility]Ebfkxfqxgu-Uyz [facility] 250 DO Work Phone: 12-01-2022 13:03-0400 Systolic blood pressure 120 mm[Hg] Samantha M Hoy Work Phone: FL-Ivvuzadmcy-Rvp [facility] 250 DO Work Phone: 12-01-2022 12:48-0400 Body height 167.64 cm Samantha M Hoy Work Phone: IX-Ogfnwhutxh-Xoz [facility] 250 DO Work Phone: 12-01-2022 12:48-0400 Body mass index (BMI) [Ratio] 28.41 kg/m2 Samantha Toney Hoy Work Phone: TH-Nugconjyep-Wyu [facility] 250 DO Work Phone: 12-01-2022 12:48-0400 Body surface area Derived from formula 1.89 m2 Samantha Toney Hoy Work Phone: PV-Jfrymonqxv-Mrj [facility] 250 DO Work Phone: 12-01-2022 12:48-0400 Body weight 79.83 kg Samantha Ziegler Hoy Work Phone: TV-Wjaypikeba-Ibf [facility] 250 DO Work Phone: 12-01-2022 12:48-0400 Diastolic blood pressure 60 mm[Hg] Samantha Toney Hoy Work Phone: ER-Mytsjfbnhe-Jss [facility] 250 DO Work Phone: 12-01-2022 12:48-0400 Heart rate 76 /min Samantha Toney Hoy Work Phone: DU-Ttuqzveqlb-Shs [facility] 250 DO Work Phone: 12-01-2022 12:48-0400 Systolic blood pressure 94 mm[Hg] Samantha Toney Hoy Work Phone: WK-Ejvmucybjy-Pqp [facility] 250 DO Work Phone: 11-04-2022 07:53-0400 65 1 Samantha M Hoy Work Phone: [facility] 250 DO Work Phone: Comment on above: [email or web address] 10-24-2022 10:01-0400 Body height 175.26 cm Samantha M Hoy Work Phone: [facility] DO Work Phone: 10-24-2022 10:01-0400 Body mass index (BMI) [Ratio] 26.58 kg/m2 Samantha M Hoy Work Phone: [facility] DO Work Phone: 10-24-2022 10:01-0400 Body surface area Derived from formula 1.98 m2 Samantha M Hoy Work Phone: [facility] DO Work Phone: 10-24-2022 10:01-0400 Body weight 81.65 kg Samantha M Hoy Work Phone: [facility] DO Work Phone: 10-24-2022 10:01-0400 Diastolic blood pressure 82 mm[Hg] Samantha M Hoy Work Phone: [facility] 250 DO Work Phone: 10-24-2022 10:01-0400 Heart rate 84 /min Samantha M Hoy Work Phone: [facility] 250 DO Work Phone: 10-24-2022 10:01-0400 Systolic blood pressure 144 mm[Hg] Samantha M Hoy Work Phone: [facility] 250 DO Work Phone: Encounters Encounter Date Encounter Type Care Provider Facility Start: 05-24-2024 End: 05-24-2024 Orders Only Kendra Mendoza MD Work Phone: Cardiology Comment on above: Chronic systolic (co ngestive) heart failure (HCC) (Primary Dx) Chronic diastolic he art failure (HCC) (Primary Dx); Complex medical condition; Typical atrial flutter (HCC); Paroxysmal atrial fibrillation (HCC); Essential hypertension, benign; Cardiomyopathy, nonischemic (HCC); Other hyperlipidemia; History of partial colectomy; Chronic anticoagulation Start: 05-16-2024 End: 05-16-[address] Qureshi MD Work Phone: Cardiology Comment on above: Gastrointestinal ble eding, lower (Primary Dx); Atrial fibrillation, persistent (HCC); Atypical atrial flutter (HCC); Typical atrial flutter (HCC) Start: 05-10-2024 End: 05-16-[address] Qureshi MD Work Phone: Cardiology Comment on above: Patient Update (Proc edures) Start: 05-09-2024 End: 05-09-[address] Qureshi MD Work Phone: Cardiology Comment on above: Atrial fibrillation, persistent (HCC) (Primary Dx); Typical atrial flutter (HCC) Start: 05-09-2024 End: 05-09-2024 Telemedicine consultation with patient Rd Qureshi MD Work Phone: Cardiology Start: 03-18-2024 End: 03-18-2024 Patient encounter procedure Compa Corcoran APRN.CNP Work Phone: Cardiology Comment on above: Chronic systolic (co ngestive) heart failure (HCC) (Primary Dx) Start: 03-18-2024 End: 03-18-2024 ambulatory [facility] Facility:[facility] Start: 02-16-2024 End: 02-16-2024 Telephone encounter Kendra Mendoza MD Work Phone: Cardiology Start: 02-09-2024 End: 02-09-2024 ambulatory [facility] Facility:[facility] Start: 02-09-2024 End: 02-09-2024 Patient encounter procedure Transesophageal Echo [facility] Comment on above: Paroxysmal atrial fi brillation (HCC) Start: 02-09-2024 End: 02-09-2024 ambulatory SAMANTHA MAYA Facility:[facility] Start: 02-05-2024 End: 02-05-2024 Orders Only [...] anticoagulation Start: 02-04-2024 End: 02-05-2024 ambulatory [facility] [facility] Start: 02-04-2024 End: 04-01-2024 Telephone encounter Kendra Mendoza MD Work Phone: Cardiology Start: 01-08-2024 End: 01-08-2024 ambulatory [facility] Start: 12-31-2023 End: 12-31-2023 ambulatory [facility] Start: 12-25-2023 End: 12-25-2023 Office outpatient visit 25 minutes Avelina Chowdhury MD Work Phone: [facility] Comment on above: Essential hypertensi on, benign; Left atrial dilation; Mitral valve insufficiency, unspecified etiology; Persistent atrial fibrillation with rapid ventricular response (Multi); High risk medication use; Shortness of breath; Former smoker Start: 12-25-2023 End: 12-25-2023 ambulatory [facility] Start: 05-25-2023 End: 05-25-2023 ambulatory [facility] Start: 01-28-2023 Patient encounter procedure Samantha Maya Work Phone: [facility] 250 DO Work Phone: Start: 01-28-[address] Avelina Chowdhury Facility: Start: 12-01-2022 Office outpatient vi sit 25 minutes Samantha Maya Work Phone: [facility] DO Work Phone: Start: 12-01-[address] Avelina Chowdhury Facility: Start: 10-31-[address] Avelina Chowdhury Facility:[id number] Start: 10-31-2022 End: 10-31-2022 ambulatory Avelina Chowdhury Facility:[facility] Start: 10-31-2022 Rx Renewal Samantha M Fracisconick Work Phone: [facility] 250 DO Work Phone: Start: 10-27-2022 End: 10-27-2022 ambulatory Avelina Chowdhury Facility:[facility] Start: 10-24-[address] Samantha Maya Facility: Start: 09-16-2022 End: 09-17-[address] SAMANTHA MAYA . Facility:H1 Start: 09-09-2022 End: 09-10-[address] SAMANTHA MAYA . Facility:[facility]1 Start: 02-14-2022 End: 02-15-[address] SAMANTHA MAYA . 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 Comment on above: Performed By: #### P [facility] ####[address] [place], [place] [address]ZrRodolfo Gibson Start: 11-14-2021 End: 11-14-2021 Computerized ophthalmic imaging retina Zulema Levin MD Work Phone: Arthroplasty of knee Samantha Maya Work Phone: Cardiac catheterization Edilberto Maya Work Phone: Decompression of med nehemiah nerve Samantha Maya Work Phone: Excision of colon Samnatha Maya Work Phone: Neuroplasty and transposition of median nerve at carpal tunnel Samantha Maya Work Phone: Neuroplasty With Transposition Of Ulnar Nerve Samantha Maya Work Phone: Tonsillectomy Samantha Maya Work Phone: Plan of Treatment Date Care Activity Detail Author Start: 05-24-2027 Diabetes Screening Diabetes Screening [facility] Start: 02-08-2027 Diabetes Screening Diabetes Screening [facility] Start: 12-05-2024 End: 12-05-2024 Patient encounter procedure Vascular Medicine Comment on above: DX: Chronic heart failure with preserved ejection fraction Start: 11-22-2024 End: 05-24-2025 Echocardiography ECHO Cardiology Routine Chronic diastolic heart failure (HCC) Expected: 11/22/2024, Expires: 05/24/2025 [facility] Work Phone: Comment on above: Expected: 11/22/2024, Expires: Start: 09-20-2024 End: 09-20-2024 Patient encounter procedure 09/20/2024 2:30 PM EDT Office Visit Cardiology [address] [place] [address] Ariana Valles MD [address] [place] [address] [facility] Cardiology Comment on above: [facility] Start: 09-20-2024 End: 09-20-2024 ambulatory 09/20/2024 1:45 PM EDT Results Only Cardiology [id number] EKG Cardiology Comment on above: EKG Start: 05-24-2024 End: 08-23-2024 Basic metabolic 2000 panel - Serum or Plasma [facility] Comment on above: Expected: 05/24/2024, Expires: Start: 05-24-2024 End: 08-23-2024 Natriuretic peptide.B prohormone N-Terminal [Mass/volume] in Serum or Plasma [facility] Work Phone: Comment on above: Expected: 05/24/2024, Expires: Start: 05-24-2024 End: 05-24-2024 ambulatory 05/24/2024 9:15 AM EST Results Only [facility] [place] [facility] [id number] DX: Chronic systolic heart failure [facility] [place] [facility] Comment on above: DX: Chronic systolic heart failure Start: 05-24-2024 End: 05-24-2024 Patient encounter procedure Vascular Medicine Comment on above: DX: Chronic systolic heart failure Start: 05-09-2024 End: 05-09-2024 ambulatory 05/09/2024 10:45 AM EST [facility] [id number] Qureshi MD [address] [facility] [address] [place] [address] DX: AFIB Cardiology Comment on above: DX: AFIB Start: 05-06-2024 End: 02-03-2025 Echocardiography ECHO Cardiology Routine Paroxysmal atrial fibrillation (HCC) Chronic systolic (congestive) heart failure (HCC) Expected: 05/06/2024, Expires: 02/03/2025 [facility] Comment on above: Expected: 05/06/2024, Expires: Start: 03-18-2024 End: 03-18-2024 Patient encounter procedure Cardiology Comment on above: Paroxysmal atrial fibrillation (HCC) [I4 8.0] Start: 03-18-2024 End: 03-18-2024 ambulatory 03/18/2024 8:00 AM EDT Results Only Cardiology [address] [place] [address] Paroxysmal atrial fibrillation (HCC) [I48.0] Cardiology Comment on above: Paroxysmal atrial fibrillation (HCC) [I4 8.0] Start: 02-24-2024 End: 02-24-2024 Patient encounter procedure 02/24/2024 11:10 AM EDT Office Visit [facility] [address] [facility] [address] [place] [address] Avelina Chowdhury MD [address] [facility] [address] [place] [address] [facility] Start: 02-09-2024 End: 02-09-2024 Admission to same day surgery center 02/09/2024 5:15 PM EDT - 02/09/2024 6:15 PM EDT Surgery HOSP EP Lab [address] [place] [address] Rd Qureshi MD [address] [facility] [address] [place] [address] 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 EXTERNAL ELECTIVE HOSP EP Lab Comment on above: 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 EXTERNAL ELECTIVE Start: 02-09-2024 End: 02-09-2024 Cardioversion elective arrhythmia external 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 EXTERNAL ELECTIVE Persistent atrial fibrillation (HCC) 02/09/2024 5:15 PM EDT EP LAB Start: 02-09-2024 Subsequent hospital visit by physician 02/09/2024 5:15 PM EDT Hospital Encounter HOSP EP Lab [address] [place] [address] Rd Qureshi MD [address] [place] [address] Persistent atrial fibrillation (HCC) [I48.19] HOSP EP Lab Comment on above: Persistent atrial fibrillation (HCC) [I4 8.19] Start: 02-09-2024 End: 02-09-2024 Cardioversion elective arrhythmia external 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 EXTERNAL ELECTIVE Persistent atrial fibrillation (HCC) 02/09/2024 3:35 PM EDT EP LAB Start: 02-09-2024 End: 02-09-2024 Patient encounter procedure Admitting Comment on above: interview DCC DCCV Start: 02-07-2024 Covid-19 Vaccine () Covid-19 Vaccine () [facility] Start: 02-07-2024 Covid-19 Vaccine () Covid-19 Vaccine () [facility] Start: 02-07-2024 Influenza vaccination Influenza Vaccine (#1) [facility] Start: 02-04-2024 End: 05-05-2024 Comprehensive metabolic 2000 panel - Serum or Plasma COMPREHENSIVE METABOLIC PANEL Lab STAT Paroxysmal atrial fibrillation (HCC) Chronic systolic (congestive) heart failure (HCC) Expected: 02/04/2024, Expires: 05/05/2024 [facility] Comment on above: Expected: 02/04/2024, Expires: Start: 02-04-2024 End: 05-05-2024 Natriuretic peptide.B prohormone N-Terminal [Mass/volume] in Serum or Plasma NT PRO BNP Lab STAT Paroxysmal atrial fibrillation (HCC) Chronic systolic (congestive) heart failure (HCC) Expected: 02/04/2024, Expires: 05/05/2024 [facility] Comment on above: Expected: 02/04/2024, Expires: 4 Start: 02-04-2024 End: 05-05-2024 Thyrotropin [Units/volume] in Serum or Plasma THYROID STIMULATING HORMONE Lab Routine Paroxysmal atrial fibrillation (HCC) Chronic systolic (congestive) heart failure (HCC) Expected: 02/04/2024, Expires: 05/05/2024 [facility] Comment on above: Expected: 02/04/2024, Expires: 4 Start: 01-08-2024 End: 01-08-2024 Patient encounter procedure 01/08/2024 8:45 AM EDT Appointment [facility] [address] [place] [address] [facility] Start: 12-31-2023 End: 12-31-2023 Telemedicine consultation with patient 12/31/2023 10:00 AM EDT Telemedicine [facility] [address] [facility] [address] [place] [id number] [place] [address] [place] [address] [facility] Start: 12-25-2023 End: 12-24-2025 Heart Transthoracic Transthoracic Echo Complete Echocardiography Routine Left atrial dilation Mitral valve insufficiency, unspecified etiology Expected: 12/25/2023 (Approximate), Expires: 12/24/2025 [facility] Service Area Work Phone: Comment on above: Expected: 12/25/2023 (Approximate), Expi res: 12/24/2025 Start: 06-08-2023 Advance Directive Discussion Advance Directive Discussion [facility] Start: 05-20-2023 FUV, Provider: Avelina Chowdhury, Status: Pen, Time: 9:10 AM FUV, Provider: Avelina Chowdhury, Status: Pen, Time: 9:10 AM [facility] 250 DO Work Phone: Start: 02-06-2023 Covid-19 Vaccine ( season) Covid-19 Vaccine ( season) [facility] Start: 12-01-2022 FUV, Provider: Avelina Chowdhury, Status: Pen, Time: 1:00 PM FUV, Provider: Avelina Chowdhury, Status: Pen, Time: 1:00 PM [facility] 250 DO Work Phone: Start: 11-29-2022 End: 05-08-2023 OCT MACULA CIRRUS OU (BOTH EYES) OCT MACULA CIRRUS OU (BOTH EYES) OPHT Imaging Routine Epiretinal membrane (ERM) of both eyes Nevus of choroid of left eye Expected: 11/29/2022, Expires: 05/08/2023 [facility] Work Phone: Comment on above: Expected: 11/29/2022, Expires: 3 Start: 02-06-2022 Influenza vaccination INFLUENZA (Season Ended) [facility] Start: 08-17-2021 COVID-19 VACCINE (4 - Booster for Moderna series) COVID-19 VACCINE (4 - Booster for Moderna series) [facility] Start: 06-08-2021 ADVANCE DIRECTIVE DISCUSSION ADVANCE DIRECTIVE DISCUSSION [facility] Start: 09-29-2015 RSV Vaccine (1 - 1-dose 75+ series) RSV Vaccine (1 - 1-dose 75+ series) [facility] Start: 09-10-2006 DIABETES SCREEN DIABETES SCREEN [facility] Start: 09-10-2006 Diabetes Screening Diabetes Screening [facility] Start: 2005 Pneumococcal Vaccine: 65+ (1 of 1 - PCV) Pneumococcal Vaccine: 65+ (1 of 1 - PCV) [facility] Start: 2005 PNEUMOCOCCAL: 65+ (1 - PCV) PNEUMOCOCCAL: 65+ (1 - PCV) [facility] Start: 2000 RSV patients and/or patients aged 60+ years (1 - 1-dose 60+ series) RSV patients and/or patients aged 60+ years (1 - 1-dose 60+ series) [facility] Start: 2000 RSV Vaccine (1 - 1-dose 60+ series) RSV Vaccine (1 - 1-dose 60+ series) [facility] Start: 1990 SHINGRIX VACCINE (1 of 2) SHINGRIX VACCINE (1 of 2) [facility] Start: 1990 Zoster Vaccines (1 of 2) Zoster Vaccines (1 of 2) [facility] Start: 1962 DTaP/Tdap/Td Vaccines (1 - Tdap) DTaP/Tdap/Td Vaccines (1 - Tdap) [facility] Start: 09-29-1959 Pneumococcal Vaccine: 50+ (1 of 2 - PCV) Pneumococcal Vaccine: 50+ (1 of 2 - PCV) [facility] Start: 09-29-1959 Urine microalbumin profile [facility] Start: 1958 Anxiety Screening Anxiety Screening [facility] Start: 1958 Depression Screening Depression Screening [facility] Start: 1946 Pneumococcal Vaccine: 65+ (1 of 2 - PCV) Pneumococcal Vaccine: 65+ (1 of 2 - PCV) [facility] Start: 1946 Pneumococcal Vaccine: 65+ Years (1 of 2 - PCV) Pneumococcal Vaccine: 65+ Years (1 of 2 - PCV) [facility] Start: 1940 Lipid panel Lipid Panel [facility] Start: 1940 Medicare Annual Wellness Visit Medicare Annual Wellness Visit (AWV) [facility] Cardioversion electi ve arrhythmia internal spx 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, ELECTIVE, ELECTRICAL Cardiology Routine Paroxysmal atrial fibrillation (HCC) Ordered: 02/04/2024 [facility] Work Phone: Comment on above: Ordered: 02/04/2024 End: 02-04-2025 ECG COMPLETE ECG COMPLETE ECG Routine Paroxysmal atrial fibrillation (HCC) 1 Occurrences starting 02/05/2024 until 02/04/2025 [facility] Work Phone: Comment on above: 1 Occurrences starting 02/05/2024 until 02/04/2025 End: 02-03-2025 ECHO TRANSESOPHAGEAL ECHO TRANSESOPHAGEAL Cardiology Routine Paroxysmal atrial fibrillation (HCC) 1 Occurrences starting 02/04/2024 until 02/03/2025 [facility] Comment on above: 1 Occurrences starting 02/04/2024 until 02/03/2025 Immunizations Immunization Date Immunization Notes Care Provider Glenroy pleitez 04-19-2021 Moderna COVID-19 Vac cine 100 MCG/0.5ML Intramuscular Suspension Samantha [facility] [employer] [facility] Work Phone: 2020 Moderna COVID-19 Vac cine 100 MCG/0.5ML Intramuscular Suspension Samantha [employer] Work Phone: [facility] 250 DO Work Phone: 08-31-2020 Moderna COVID-19 Vac cine 100 MCG/0.5ML Intramuscular Suspension Samantha [employer] Work Phone: [facility] 250 DO Work Phone: 04-07-2017 influenza virus vacc ine, unspecified formulation Samantha Maya Work Phone: [facility] 250 DO Work Phone: 03-25-2016 influenza virus vacc ine, unspecified formulation Samantha Maya Work Phone: [facility] 250 DO Work Phone: 03-17-2016 influenza, high dose seasonal, preservative-free Samantha Maya [facility] DO Work Phone: Payers Date Payer Category Payer Self-pay 2020 Unknown MMO MMO MEDICARE SUPPLEMENT [id number] 2020-Present [phone] [address] [place] [address] Indemnity [id number] 2020 Unknown 2005 Medicare [id number] 1959 Medicare [id number] 1959 Unknown [id number] 1940 Unknown [id number] 1940 Unknown [id number] 1940 Unknown [id number] 1940 Unknown [id number] 1940 Unknown [id number] 1940 Unknown [id number] 1940 Unknown [id number] 1940 Unknown [id number] 1940 Unknown [id number] 1940 Unknown [id number] 1940 Unknown [id number] Unknown [id number] Unknown [id number] Social History Date Type Detail Facility Start: 12-14-2015 Tobacco smoking stat us IDIS Never smoked tobacco [facility] Start: 12-14-2015 End: 02-04-2024 Tobacco use and exposure Smokeless tobacco non-user [facility] Start: 11-14-2021 End: 05-06-2024 Alcohol intake Current drinker of alcohol (finding) [facility] Start: 12-14-2015 History SDOH Alcohol Comment on occ [facility] Start: 1940 Sex Assigned At Not on file C [facility] Start: 02-04-2024 End: 05-21-2024 Never a smoker Never a smoker [facility] Comment on above: COFFEE DAILY; Start: 05-25-2023 End: 02-04-2024 Tobacco smoking status NHIS Ex-smoker [facility] Work Phone: Start: 06-08-1954 History of tobacco use Current smoke r [facility] Work Phone: Start: 06-08-1954 History of tobacco use Cigarette Smo ker [facility] Work Phone: Start: 02-04-2024 End: 05-21-2024 Tobacco use panel [facility] National Score (1-100), lower number is lower risk 91 [facility] Start: 05-25-2023 Tobacco Comment 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 brief period of time [facility] Work Phone: Start: 05-25-2023 Alcohol Comment 1 beer a month [facility] Work Phone: Start: 12-15-2023 End: 12-25-2023 Exposure to SARS-CoV-2 (event) Not sure [facility] Goals Date Patient Goal Desired Activity /State Personal health goal Clinical Notes 11-14-2021 to 05-24-2024 Kendra Mendoza MD - 05/24/2024 9:14 AM ESTTelephone Encounter - Ian Hogue RN - 05/16/2024 5:10 PM ESTTelephone Encounter - Ian Hogue RN - 05/16/2024 5:10 PM ESTPatient Instructions Note Date & Type Note Facility 05-24-2024 Note HNO ID: [id number] Author: KENDRA MENDOZA MD Service: ? Author Type: Physician Type: Progress Notes Filed: 05/24/2024 17:30 Note Text: Heart [facility] SECTION OF HEART FAILURE and CARDIAC TRANSPLANT MEDICINE OUTPATIENT VISIT DATE May 24, 2024 OUTPATIENT VISIT TYPE Established Patient PRIMARY CARE PHYSICIAN: Samantha Maya [address] [place] [address] CHIEF COMPLAINT: HF f/u NURSING INTAKE (Patient?s concerns and/or recent hospitalizations/ER visits): HF Nursing Assessment: Interim Hospitalizations and/or ER visits:02/09/24 04/07/24 Chest Pain: no Skipping or irregular heartbeats: no Shortness of breath at rest: no Shortness of breath with activity: no Cough: no Waking up in the middle of the night gasping for air: no Lightheadedness or dizziness: no Feeling like you are going to pass out: no Actually passing out: no Poor energy level: fair Unintentional weight gain: no Unintentional weight loss: no Swelling in your legs,feet, abdomen: no Filling up quickly when you eat: no HISTORY OF PRESENT ILLNESS: Underwent cardioversion for afib on 02/09/24 Summary Findings: The cardioversion was successful. 1. The presenting arrhythmia was atrial fibrillation. 2. Sinus rhythm with a ventricular rate of 51 beats per minute was observed after the procedure. Overall feeling better but still limited by arthritis. Breathing ok. B-tyron stopped due to bradycardia post-cardioversion. Eliquis reduced to once daily due to bleeding PAST MEDICAL HISTORY Diagnosis Date Atrial fibrillation (HCC) Carpal tunnel syndrome Cataract OU Congestive heart failure (HCC) Dyslipidemia GI bleed Heart disease Hypertension Hypothyroidism Kidney stone Retinal tear 06/08/2000 OS PAST SURGICAL HISTORY Procedure Laterality Date PAST SURGICAL HISTORY OF 06/2000 Left eye Retinal detchement repair (laser) PAST SURGICAL HISTORY OF 1947 Tonsils PAST SURGICAL HISTORY OF 1967 Left [...] Cigarettes Start date: 1954 Smokeless tobacco: Never Vaping Use Vaping status: Never Used Substance Use Topics Alcohol use: Yes Comment: on occ Drug use: No FAMILY HISTORY Problem Relation Age of Onset Cataract Mother Hypertension Mother Cataract Father Hypertension Father Cancer Sister Diabetes Sister Cataract Sister Cancer Sister ALLERGIES: ALLERGIES No Known Allergies CURRENT MEDICATIONS: apixaban (ELIQUIS) 5 mg tab(s) Take 5 mg by mouth once daily. Qbxucefjaintn-Qbxgqchw-Dfiryw (CENTRUM SILVER) tab Take 1 tablet by mouth once daily. magnesium oxide 400 mg magnesium tab Take 400 mg by mouth once daily. lisinopril (ZESTRIL) 5 mg tablet Take 5 [...] cap Take by mouth. REVIEW OF SYSTEMS: ROS HEART FAILURE PATIENT ENTERED DATA: 05/21/2024 KCCQ-12 Scores Physical Limitation Score 100 (Class I Heart Failure ) Symptom Frequency Score 95.83 (Class I Heart Failure ) Quality of Life Score 62.5 (Fair to Good Quality of Life) Social Limitation Score 100 (Class I Heart Failure) Overall Summary Score 89.58 (Class I Heart Failure ) 05/21/2024 PHQ-9 Score 0 05/21/2024 PROMIS Global Health - (T-Scores - the mean of general population = 50. Five points is a clinically meaningful difference.) Physical T-Score 47.7 Mental T-Score 43.5 PHYSICAL EXAMINATION: BP 165/79 (BP Site: Left Arm, BP Position: Sitting, BP Cuff Size: Regular Adult) Pulse 60 Resp 15 Ht 165.1 cm (5' 5 ) Wt 70.3 kg (155 lb) SpO2 94% BMI 25.79 kg/m? which is 3 lbs less than last visit (note BP at home 116/69 on avg) 135/94 Pulse 88 Ht 165.1 cm (5' 5 ) Wt 71.9 kg (158 lb 8 oz) SpO2 96% BMI 26.38 kg/m? General: Well appearing, in no acute distress. Skin: warm Eyes: Anicteric Oropharynx: Teeth in good repair. Neck: No jugular venous distention. Lungs: Clear to auscultation bilaterally, no wheezing or rhonchi. Heart: Irregular rhythm, PMI not displaced, S1, S2 normal (more content not included)... [facility] 05-24-2024 History of Present illness Narrative Images from the original note were not included. Heart and Vascular [facility] SECTION OF HEART FAILURE and CARDIAC TRANSPLANT MEDICINE OUTPATIENT VISIT DATE May 24, 2024 OUTPATIENT VISIT TYPE Established Patient PRIMARY CARE PHYSICIAN: Samantha Maya [address] [place] [address] CHIEF COMPLAINT: HF f/u NURSING INTAKE (Patient s concerns and/or recent hospitalizations/ER visits): HF Nursing Assessment: Interim Hospitalizations and/or ER visits:02/09/24 04/07/24 Chest Pain: no Skipping or irregular heartbeats: no Shortness of breath at rest: no Shortness of breath with activity: no Cough: no Waking up in the middle of the night gasping for air: no Lightheadedness or dizziness: no Feeling like you are going to pass out: no Actually passing out: no Poor energy level: fair Unintentional weight gain: no Unintentional weight loss: no Swelling in your legs,feet, abdomen: no Filling up quickly when you eat: no HISTORY OF PRESENT ILLNESS: Underwent cardioversion for afib on 02/09/24 Summary Findings: The cardioversion was successful. 1. The presenting arrhythmia was atrial fibrillation. 2. Sinus rhythm with a ventricular rate of 51 beats per minute was observed after the procedure. Overall feeling better but still limited by arthritis. Breathing ok. B-tyron stopped due to bradycardia post-cardioversion. Eliquis reduced to once daily due to bleeding PAST MEDICAL HISTORY Diagnosis Date Atrial fibrillation [...] Cigarettes Start date: 1954 Smokeless tobacco: Never Vaping Use Vaping status: Never Used Substance Use Topics Alcohol use: Yes Comment: on occ Drug use: No FAMILY HISTORY Problem Relation Age of Onset Cataract Mother Hypertension Mother Cataract Father Hypertension Father Cancer Sister Diabetes Sister Cataract Sister Cancer Sister ALLERGIES: ALLERGIES No Known Allergies CURRENT MEDICATIONS: apixaban (ELIQUIS) 5 mg tab(s) Take 5 mg by mouth once daily. Iezfgaqoqteqz-Byivcvlg-Vlhxqt (CENTRUM SILVER) tab Take 1 tablet by mouth once daily. magnesium oxide 400 mg magnesium tab Take 400 mg by mouth once daily. lisinopril (ZESTRIL) 5 mg tablet Take 5 [...] cap Take by mouth. REVIEW OF SYSTEMS: ROS HEART FAILURE PATIENT ENTERED DATA: 05/21/2024 KCCQ-12 Scores Physical Limitation Score 100 (Class I Heart Failure ) Symptom Frequency Score 95.83 (Class I Heart Failure ) Quality of Life Score 62.5 (Fair to Good Quality of Life) Social Limitation Score 100 (Class I Heart Failure) Overall Summary Score 89.58 (Class I Heart Failure ) 05/21/2024 PHQ-9 Score 0 05/21/2024 PROMIS Global Health - (T-Scores - the mean of general population = 50. Five points is a clinically meaningful difference.) Physical T-Score 47.7 Mental T-Score 43.5 PHYSICAL EXAMINATION: BP 165/79 (BP Site: Left Arm, BP Position: Sitting, BP Cuff Size: Regular Adult) Pulse 60 Resp 15 Ht 165.1 cm (5' 5 ) Wt 70.3 kg (155 lb) SpO2 94% BMI 25.79 kg/m which is 3 lbs less than last visit (note BP at home 116/69 on avg) 135/94 Pulse 88 Ht 165.1 cm (5' [...] S1, S2 normal, +S3, III/ HSM c/w MR +/- TR. Abdomen: Soft, nontender, bowel sounds normal, no palpable organomegaly, no bruits. Extremities: No peripheral edema . Neuro: Oriented to person, place and time, alert, cooperative, gait coordinated. Labs on 10/13/16: WBC 6, Hgb 14.8, plt 251, Na 140, K 4.7, BUN 31, Cr 1.06, Glu 102, LFTs nl Labs 02/05/24: WBC 6.1, Hgb 14.2, Plt 228, Na 141, K 4.5, BUN 30, Cr 1.46, LFTs nl, NtproBNP 1408, TP 7.0, Alb 3.7, TSH 1.59 Labs 02/09/24: Na 141, K 4.8, BUN 36, Cr 1.45 CARDIOVASCULAR MEDICINE TESTING: I have personally reviewed the Echocardiogram. ECG on 03/18/24: Diagnosis: SINUS RHYTHM WITH 1ST DEGREE AV BLOCK WITH PREMATURE VENTRICULAR COMPLEXES NONSPECIFIC ST ABNORMALITY ABNORMAL ECG Echo today: The left ventricle is mildly dilated. There is upper septal LVH, LVEF = 56 5% (2D biplane) RWMAs noted above. - The right ventricle is normal in size. Right ventricular systolic function is normal. The left atrial cavity is severely dilated. - The visualized aorta is dilated with a maximal dimension of 4.3 cm. 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 Regurgitant orifice area (PISA) is 0.27 cm . - Exam was compared with the prior echocardiographic exam performed on 02/09/2024 (SHARON). LVEF has improved; MR better evaluated on prior SHARON. SHARON 02/09/24: LVEF 35% with +3 MR and no URIAH thrombus. Echo 12/30/2023 SHARON 10/[address] Result Last MRI Result IMPRESSION:83 yo man here for further evaluation [...] of 2022. He was feeling fine until December 2023 when he developed heart failure with shortness of breath and likely at that time had rapid atrial fbrillation. He was scheduled for cardioversion which did not happen and a watchman procedure was discussed. Since his heart failure symptoms progressed he was hospitalized December 28, diagnosed with HFrEF (LVEF 30%) and given IV diuretics. At my last visit, I increased his B-tyron and arranged for cardioversion which was successfully done on 02/09/24 but due to bradycardia post-cardioversion the B-tyron was fuqdikj45/2/24 and diuretics stopped due to hypotension. Eliquis changed by patient to 5 mg daily given + epistaxis. Dr. Qureshi suggested ablation and watchman to prevent further episodes. LVEF today improved to normal Cause of his decline in LVEF to 30% is likely tachy-induced due to atrial fibrillation. The cause of his paroxysmal afib may be due to hypertension but will also need to rule out restrictive cardiomyopathy. He does not drink alcohol and does not snore or have sleep apnea. LHC in 2019 normal. On examination today he has no gross signs of heart failure. Mitral regurgitation is moderate with LV dilation. We discussed MV clip which we will consider in near future. Currently asymptomatic. NYHA Functional Class: I Stage: C heart failure PLAN AND RECOMMENDATIONS: Reduce eliquis to 2.5 mg twice daily given age, weight, and bleeding recently Otherwise continue current medications. Labs today pending Followup with me in 6 mo with echo Kendra Mendoza MD May 24, 2024 11:54 AM I personally interviewed, confirmed and edited the above information as obtained by others I personally spent 45 minutes in total time involved in the management and care of this patient. We discussed natural history of disease, current treatment options, and future potential treatment options. We discussed diet, exercise, other non-medical management as above. Kendra Mendoza MD [facility] Section Of Heart Failure and Cardiac Transplant Medicine Heart and Vascular [place] [facility] Desk [id number] [id number] Addendum: Labs Latest Ref Rng 05/24/2024 Glucose 74 - 99 mg/dL 100 (H) BUN 9 - 24 mg/dL 33 (H) Creatinine 0.73 - 1.22 mg/dL 1.32 (H) Sodium 136 - 144 mmol/L 139 Potassium 3.7 - 5.1 mmol/L 4.7 Chloride 98 - 107 mmol/L 101 CO2 22 - 30 mmol/L 25 Anion Gap 8 - 15 mmol/L 13 Calcium 8.5 - 10.2 mg/dL 10.2 eGFR >=60 mL/min/1.73m 54 (L) NT Pro BNP <450 pg/mL 338 Legend: (H) High (L) Low documented in this encounter [facility] 05-16-2024 Telephone encounter Note Patient will need to meet with Ep physician who preforms [place] (Dr Qureshi placed consult). Patient updated and provided scheduling number. Message also sent to schedulers. Ian Hogue RN [facility] 05-16-2024 Miscellaneous Notes Patient will need to meet with Ep physician who preforms [place] (Dr Qureshi placed consult). Patient updated and provided scheduling number. Message also sent to schedulers. Ian Hogue RN May 10, 2024 Patient Contact Number: [phone] (home) [phone] (work) [phone] (cell) Patient last seen within the last year: Yes Reason for Call: Other Issue: Patient called to inform Dr. Qureshi that he would like to proceed with Ablation and Watchman procedure (one procedure). Patient would like pre-op testing to be day prior to procedure if possible. He will discuss with scheduling nurse. Patient advised of routine timeframe for EPLABSC to contact him with avail dates. Pt acknowledges understanding. Please initiate process for scheduling. Thank you, Georgia Cannon, Admin documented in this encounter [facility] 05-10-2024 Telephone encounter Note May 10, 2024 Patient Contact Number: [phone] (home) [phone] (work) [phone] (cell) Patient last seen within the last year: Yes Reason for Call: Other Issue: Patient called to inform Dr. Qureshi that he would like to proceed with Ablation and Watchman procedure (one procedure). Patient would like pre-op testing to be day prior to procedure if possible. He will discuss with scheduling nurse. Patient advised of routine timeframe for EPLABSC to contact him with avail dates. Pt acknowledges understanding. Please initiate process for scheduling. Thank you, Georgia Cannon, Debbie [facility] 05-09-[address] Qureshi MD - 05/09/2024 11:15 AM EST You have persistent atrial fibrillation and atrial flutter. You also have bleeding problems in the past, but stable now other than occasional nose bleeds. We discussed (a) TIKOSYN and (b) Ablation (with possible Watchman), or (c) letting it be and not choose to fight AF. I would advise (a) or (b), and you said you will let me know your decision. If you go with (b), I will also send you to see a Watchman doctor who can do the ablation so maybe you can get an ablation + watchman. documented in this encounter [facility] 05-09-2024 History of Present illness Narrative Images from the original note were not included. Heart, Vascular & Thoracic [place] Department of Cardiovascular Medicine TELEPHONE VISIT (audio only) PROGRESS NOTE This is a telephone encounter initiated for an established patient. The patient, parent or guardian is not originating from a related Evaluation & Management service provided within the previous 7 days nor leading to an Evaluation & Management service or procedure within the next 24 hours or soonest available appointment. I have communicated my name and active licensure. The patient's identity and physical location were verified at the time of this visit. Either the patient or their legal asset protection representative has been informed of the risks and benefits of -- and alternatives to -- treatment through a remote evaluation and consents to proceed with the evaluation remotely. Brandi Dalton JR has consented to this telephone encounter. CHIEF COMPLAINT Heart failure with reduced ejection fraction and atrial fibrillation with rapid rate HISTORY OF PRESENT ILLNESS/NURSING INTAKE HISTORY: Brandi Dalton JR is a 83 year old male who presents today for evaluation regarding persistent atrial fibrillation and atrial flutter. His past medical history is significant for GI bleed, hypertension, hyperlipidemia, hypothyroidism, combined systolic and diastolic heart failure, Moderate MR and atrial fibrillation. He had normal coronary angiogram in 2020 and had SHARON in August 2022 which revealed moderate mitral regurgitation with normal ejection fraction and normal LV size. His reports his AF was diagnosed incidentally several years ago at which time he was started on eliquis. He was initially asymptomatic with his AF. He did well until 12/2023 when he developed shortness of breath. He was subsequently admitted locally for heart failure exacerbation from 12/28-, requiring diuresis. Echo notable for reduced LVEF 30%. He is s/p SHARON/DCC on 02/09/24. SHARON revealed LVEF 35%, moderately severe (3+) MR with severely dilated LA. He follows with Dr. Mendoza. He has not been tried on AADs. He reports feeling well overall today with increased energy and less SOB since his DCC. He monitors with an Omron BP cuff, maintaining normal rhythm for the most part. He is active working in his yard and around the home. He continues on eliquis noting rare nosebleeds, only took AM dose of eliquis on 05/05/24 related to this. CHADS2-Vasc Score Breakdown 4 Total Score 2 Age >= 75 years old 1 History of CHF 1 History of hypertension PAST MEDICAL HISTORY Diagnosis Date Atrial fibrillation [...] Left tricept tendent PAST SURGICAL HISTORY OF 2008 coloencetomy PAST SURGICAL HISTORY OF 2015 repair carpal tunnel LT PAST SURGICAL HISTORY OF repair carpal tunnel RT XCAPSL CTRC RMVL INSJ IO LENS PROSTH W/O ECP Left 06/2000 Cataract Extraction with PC IOL Parshour XCAPSL CTRC RMVL INSJ IO LENS PROSTH W/O ECP Right 09/2003 Cataract Extraction with PC IOL MARIVEL FAMILY HISTORY Problem Relation Age of Onset Cataract Mother Hypertension Mother Cataract Father Hypertension Father Cancer Sister Diabetes Sister Cataract Sister Cancer Sister Social History Tobacco Use Smoking status: Former Average packs/day: 0.3 packs/day for 5.0 years (1.3 ttl pk-yrs) Types: Cigarettes Start date: 1954 Smokeless tobacco: Never Vaping Use Vaping status: Never Used Substance Use Topics Alcohol use: Yes Comment: on occ Drug use: No ALLERGIES No Known Allergies CURRENT MEDICATIONS apixaban (ELIQUIS) 5 mg tab(s) Take 5 mg by mouth two times a day. Lczhvysvrodok-Gegzryab-Ojvvej (CENTRUM SILVER) tab Take 1 tablet by mouth once daily. magnesium oxide 400 mg magnesium tab Take 400 mg by mouth once daily. lisinopril (ZESTRIL) 5 mg tablet Take 5 [...] selenium 200 mcg cap Take by mouth. sodium chloride 0.9 %, flush, (BD POSIFLUSH) syringe Inject 2-10 mL intravenously as directed. For Echo procedure CARDIOVASCULAR MEDICINE TESTING: SHARON 02/09/24: CONCLUSIONS: - Exam indication: Pre Cardioversion, Pre [...] a prior CC echocardiographic exam for comparison. EKG 02/09/24: ASSESSMENT: Brandi Dalton JR is a 83 year old male who presents today for evaluation regarding persistent atrial fibrillation and atrial flutter. His past medical history is significant for GI bleed, hypertension, hyperlipidemia, hypothyroidism, combined systolic and diastolic heart failure, Moderate MR and atrial fibrillation. 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 I discussed 2 approaches being dofetilide versus ablation. I advised that both options are reasonable, and ablation has a higher success rate of maintaining normal sinus rhythm compared to dofetilide. He wants to think about this further and will let me know. If he goes with the ablation option, I will then refer him to a watchman provider as well. I provided the following written instructions: You have persistent atrial fibrillation and atrial flutter. You also have bleeding problems in the past, but stable now other than occasional nose bleeds. We discussed (a) TIKOSYN and (b) Ablation (with possible Watchman), or (c) letting it be and not choose to fight AF. I would advise (a) or (b), and you said you will let me know your decision. If you go with (b), I will also send you to see a Watchman doctor who can do the ablation so maybe you can get an ablation + watchman. Rd Qureshi MD Cardiac Electrophysiology May 09, 2024 I personally spent 30 minutes in total time involved in the management and care of this patient. Raissa Brandt RN May 06, 2024 2:59 PM documented in this encounter [facility] 05-09-2024 Note HNO ID: [id number] Author: RD QURESHI MD Service: ? Author Type: Physician Type: Progress Notes Filed: 05/09/2024 11:20 Note Text: Heart, Vascular AND Thoracic [place] Department of Cardiovascular Medicine TELEPHONE VISIT (audio only) PROGRESS NOTE This is a telephone encounter initiated for an established patient. The patient, parent or guardian is not originating from a related Evaluation AND Management service provided within the previous 7 days nor leading to an Evaluation AND Management service or procedure within the next 24 hours or soonest available appointment. I have communicated my name and active licensure. The patient's identity and physical location were verified at the time of this visit. Either the patient or their legal asset protection representative has been informed of the risks and benefits of -- and alternatives to -- treatment through a remote evaluation and consents to proceed with the evaluation remotely. Brandi Dalton JR has consented to this telephone encounter. CHIEF COMPLAINT Heart failure with reduced ejection fraction and atrial fibrillation with rapid rate HISTORY OF PRESENT ILLNESS/NURSING INTAKE HISTORY: Brandi Dalton JR is a 83 year old male who presents today for evaluation regarding persistent atrial fibrillation and atrial flutter. His past medical history is significant for GI bleed, hypertension, hyperlipidemia, hypothyroidism, combined systolic and diastolic heart failure, Moderate MR and atrial fibrillation. He had normal coronary angiogram in 2020 and had SHARON in August 2022 which revealed moderate mitral regurgitation with normal ejection fraction and normal LV size. His reports his AF was diagnosed incidentally several years ago at which time he was started on eliquis. He was initially asymptomatic with his AF. He did well until 12/2023 when he developed shortness of breath. He was subsequently admitted locally for heart failure exacerbation from 12/28-, requiring diuresis. Echo notable for reduced LVEF 30%. He is s/p SHARON/DCC on 02/09/24. SHARON revealed LVEF 35%, moderately severe (3+) MR with severely dilated LA. He follows with Dr. Mendoza. He has not been tried on AADs. He reports feeling well overall today with increased energy and less SOB since his DCC. He monitors with an Omron BP cuff, maintaining normal rhythm for the most part. He is active working in his yard and around the home. He continues on eliquis noting rare nosebleeds, only took AM dose of eliquis on 11/28/24 related to this. CHADS2-Vasc Score Breakdown 4 Total Score 2 Age >= 75 years old 1 History of CHF 1 History of hypertension PAST MEDICAL HISTORY Diagnosis Date Atrial fibrillation [...] 09/2003 Cataract Extraction with PC IOL MARIVEL FAMILY HISTORY Problem Relation Age of Onset Cataract Mother Hypertension Mother Cataract Father Hypertension Father Cancer Sister Diabetes Sister Cataract Sister Cancer Sister Social History Tobacco Use Smoking status: Former Average packs/day: 0.3 packs/day for 5.0 years (1.3 ttl pk-yrs) Types: Cigarettes Start date: 1954 Smokeless tobacco: Never Vaping Use Vaping status: Never Used Substance Use Topics Alcohol use: Yes Comment: on occ Drug use: No ALLERGIES No Known Allergies CURRENT MEDICATIONS apixaban (ELIQUIS) 5 mg tab(s) Take 5 mg by mouth two times a day. Gmnomlrsqujoy-Kfwrqulh-Lyteea (CENTRUM SILVER) tab Take 1 tablet by mouth once daily. magnesium oxide 400 mg magnesium tab Take 400 mg by mouth once daily. lisinopril (ZESTRIL) 5 mg tablet Take 5 [...] selenium 200 mcg cap Take by mouth. sodium chloride 0.9 %, flush, (BD POSIFLUSH) syringe Inject 2-10 mL intravenously as directed. For Echo procedure CARDIOVASCULAR MEDICINE TESTING: SHARON 02/09/24: CONCLUSIONS: - Exam indication: Pre Cardioversion, Pre AF Ablation (more content not included)... [facility] 03-18-2024 Instructions Compa Corcoran APRN.CNP - 03/18/2024 10:42 AM EDT -No medication changes today. -Please have blood work faxed to me when you get it done locally. -Follow-up with Dr. Mendoza on 05/24/2024 with labs and testing. documented in this encounter [facility] 03-18-2024 Note HNO ID: [id number] Author: COMPA CORCORAN APRN.CNP Service: ? Author Type: Nurse Practitioner Type: Progress Notes Filed: 03/18/2024 16:06 Note Text: Heart and Vascular [place] [facility] SECTION OF HEART FAILURE and CARDIAC TRANSPLANT MEDICINE OUTPATIENT VISIT DATE 03/18/2024 PRIMARY CARE PHYSICIAN: Samantha Maya [address] [place] [address] PRIMARY HEART FAILURE MATERIALS PLANNER/PRODUCTION PLANNER: Dr. Mendoza CHIEF COMPLAINT: Follow-up HISTORY OF PRESENT ILLNESS: Brandi Dalton JR is a 83 year old male [...] Take 40 mg by mouth once daily. Nypqaxgvvosly-Qgqssvbw-Ulbyav (CENTRUM SILVER) tab Take 1 tablet by [...] cyanosis. Warm, peripheral (more content not included)... [facility] 03-18-2024 History of Present illness Narrative Images from the original note were not included. Heart and Vascular [place] [facility] SECTION OF HEART FAILURE and CARDIAC TRANSPLANT MEDICINE OUTPATIENT VISIT DATE 03/18/2024 PRIMARY CARE PHYSICIAN: Samantha Maya [address] [place] [address] PRIMARY HEART FAILURE MATERIALS PLANNER/PRODUCTION PLANNER: Dr. Mendoza CHIEF COMPLAINT: Follow-up HISTORY OF PRESENT ILLNESS: Brandi Dalton JR is a 83 year old male [...] Take 40 mg by mouth once daily. Ivyurofxciymj-Ccrhcvap-Guwtmv (CENTRUM SILVER) tab Take 1 tablet by [...] 99 mg/dL 92 105 R Comment: The [employer] Diabetes Association (ADA) provides guidance for cutoff [...] Standards of Medical Care in Diabetes 2016, [employer] Diabetes Association. Diabetes Care. 2016.39(Suppl 1). BUN [...] eGFR may not accurately reflect actual GFR. Resulting Agency [facility] Specimen Collected: 02/09/24 See [facility] for details of other cardiac testing. IMPRESSION: NYHA Functional Class: I Stage: C heart failure -HFrEF/ NICM, chronic systolic heart failure, cardiomyopathy/ LVEF 35% Brandi Dalton JR is here today for follow-up. At [...] no Other anti-HTN: no Device therapy: no, tribe QRS: 116 ms Sleep apnea: no Anemia: [...] as above. Compa Corcoran MSN, ACNP-BC, CHFN, [facility][1] For Heart Failure Section Of Heart Failure and Cardiac Transplant Medicine Heart and Vascular [place] [facility] Desk [id number] [place] [address] documented in this encounter [facility] 02-16-2024 Telephone encounter Note Spoke with: Katalina (Spouse) Dr. Mendoza advised the following: - Stop Metoprolol for 2 days to get it out of his system - No EKG/no additional testing - Patient/spouse will call in on either Th or Fri this week to let us know what BP/HR is after stopping metoprolol Patient's spouse verbalized understanding. [facility] 02-16-2024 Miscellaneous Notes Spoke with: Katalina (Spouse) Dr. Mendoza advised the following: - Stop Metoprolol for 2 days to get it out of his system - No EKG/no additional testing - Patient/spouse will call in on either Thurs or Fri this week to let us know what BP/HR is after stopping metoprolol Patient's spouse verbalized understanding. February 16, 2024 Name: Brandi Dalton JR Patient Contact Number: [phone] (home) [phone] (work) Date of last office visit: 02/04/2024 [...] Womack documented in this encounter [facility] 02-16-2024 Telephone encounter Note February 16, 2024 Name: Brandi Dalton JR Patient Contact Number: [phone] (home) [phone] (work) Date of last office visit: 02/04/2024 [...] business days. Yes Cesar Womack [facility] 02-09-2024 Nurse Note AMBULATORY PATIENT EDUCATION [...] Wong RN In Department: CARDIOLOGY [facility] 02-09-2024 Nurse Note AMBULATORY PATIENT EDUCATION [...] CARDIOLOGY documented in this encounter [facility] 02-05-2024 Telephone encounter Note Completed in a separate encounter. [facility] 02-05-2024 Miscellaneous Notes Completed in a separate encounter. please arrange SHARON with cardioversion for as soon as possible. Patient has been on eliquis 5 mg bid > 6 mo but has missed a few doses so SHARON is needed. Can you schedule for 02/05/24 or 02/09/24 Kendra Mendoza (Including my assistant manager retail Fidelina Lange to keep her informed) THANKS documented in this encounter [facility] 02-05-2024 Note HNO ID: [id number] Author: SHAWANDA VARGAS RN Service: ? Author [...] discussed with Physician, nurse practitioner or Physician assistant manager retail upon discharge Instructions for transmitting EKG to Monitoring [facility] 3 month follow up instructions Contact number for information and questions Patient Evaluation: Verbalizes understanding Follow Up Plan: Follow up as directed by . Supplemental Material Given: Written Material Instructed By Shawanda Vargas RN. In Department of CARDIOLOGY. [facility] 02-05-2024 History of Present illness Narrative THE FOLLOWING WAS EVALUATED Motivation [...] discussed with Physician, nurse practitioner or Physician assistant manager retail upon discharge Instructions for transmitting EKG to Monitoring Center 3 month follow up instructions Contact number for information and questions Patient Evaluation: Verbalizes understanding Follow Up Plan: Follow up as directed by . Supplemental Material Given: Written Material Instructed By Shawanda Vargas RN. In Department of CARDIOLOGY. documented in this encounter [facility] 02-05-[address] Mendoza requesting SHARON/DCC for 02/09/24. SHARON noted to be scheduled 02/08. DCC scheduled as requested. Patient's accepting date of 02/08. Shawanda Vargas RN [facility] 02-05-[address] Mendoza requesting SHARON/DCC for 02/09/24. SHARON noted to be scheduled 02/08. DCC scheduled as requested. Patient's accepting date of 02/08. Shawanda Vargas RN documented in this encounter [facility] 02-05-2024 Note Education (EPSMN) BRANDI DALTON ([id number]) 1940 M Date Time Provider Department 02/05/24 [...] 50 mg by mouth once daily. - Qkzntufhbtctg-Yjttbwba-Mwwjdq (CENTRUM SILVER) tab Take 1 tablet by [...] Encounter Status:Closed by SHAWANDA VARGAS on 02/05/24 [facility] 02-04-2024 Telephone encounter Note please arrange SHARON with cardioversion for as soon as possible. Patient has been on eliquis 5 mg bid > 6 mo but has missed a few doses so SHARON is needed. Can you schedule for 02/05/24 or 02/09/24 Kendra Mendoza (Including my assistant manager retail Fidelina Evansradha to keep her informed) THANKS T [facility] 02-04-2024 History of Present illness Narrative Images from the original note were not included. 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 He saw Dr. Yeager in [place] who did not address shortness of breath [...] Comment: Left eye Retinal detchement repair (laser) 194: PAST SURGICAL HISTORY OF Comment: Tonsils 1967: PAST SURGICAL HISTORY OF Comment: Left pat Tend. 1975: PAST SURGICAL HISTORY OF Comment: Repair Left tricept tendent 2008: PAST SURGICAL HISTORY OF Comment: coloencetomy 2015: [...] Take 50 mg by mouth once daily. Xoezggixygfib-Ksgywgim-Uagsnp (CENTRUM SILVER) tab Take 1 tablet by [...] HFrEF (LVEF 30%) and given IV diuretics. [place] a little better but still has shortness [...] does not snore or have sleep apnea. LH in 2020 normal. On examination today he has no [...] exercise, other non-medical management as above. [facility] Of [facility] Failure and Cardiac Transplant Medicine [facility] and Vascular [facility] Desk [address] [place] [address] documented in this encounter [facility] 02-04-2024 Note HNO ID: [id number] Author: KENDRA MENDOZA MD Service: ? 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 He saw Dr. Yeager in [place] who did not address shortness of breath [...] Take 50 mg by mouth once daily. Trldrlbapugzz-Tusiduiu-Lxrncm (CENTRUM SILVER) tab Take 1 tablet by [...] sores, Trouble swallowing, (more content not included)... [facility] 12-25-2023 History of Present illness Narrative Subjective Brandi Dalton Jr. is a 83 y.o. male Chief Complaint Follow-up HPI Patient is in the office for follow-up for the problems noted below at the request of his his since she has noticed that he is becoming more short of breath. He confesses for being short of breath for activities that in general have been well-tolerated but denies any symptoms of chest pain. No volume overload no orthopnea PND syncope or near syncope. He has been compliant with medical therapy. His EKG revealed atrial fibrillation with RVR heart rate 119 bpm. This is likely the culprit of his patient's symptoms of dyspnea. Assessment/recommendations: 1-persistent atrial fibrillation with rapid ventricular response causing the patient's symptoms of dyspnea. He is currently on Eliquis which we will continue but will add metoprolol succinate 50 mg daily. 2-moderate mitral regurgitation that is due to primary valve disease without prolapse confirmed by [facility]. Will continue to follow noninvasively 3-essential hypertension, currently under control, no changes are needed. 4-progressive dyspnea on exertion likely caused by tachycardia in the context of moderate mitral regurgitation, will control the heart rate and make sure the valve function remains adequate 5-significant bilateral atrial enlargement on echocardiogram to be monitored 6- overweight, encouraged weight control with low-calorie diet 7-high risk medication with anticoagulants to be monitored closely. 8-Prior catheterization 2020 revealed normal coronary Review of Systems Constitutional: Positive for malaise/fatigue and weight loss. Cardiovascular: Positive for dyspnea on exertion and palpitations. Vitals: 12/25/23 1057 BP: 120/82 BP Location: Right arm Patient Position: Sitting Pulse: (!) 120 Weight: 75.8 kg (167 lb) Height: 1.651 m (5' 5 ) Objective Physical Exam Constitutional: Appearance: Normal appearance. HENT: Nose: Nose normal. Neck: Vascular: No carotid bruit. Cardiovascular: Rate and Rhythm: Normal rate. Pulses: Normal pulses. Heart sounds: Murmur heard. No systolic murmur is present. Diastolic murmur is present with a grade of 2/4. Pulmonary: Effort: Pulmonary effort is normal. Abdominal: General: Bowel sounds are normal. Palpations: Abdomen is soft. Musculoskeletal: General: Normal range of motion. Cervical back: Normal range of motion. Right lower leg: No edema. Left lower leg: No edema. Skin: General: Skin is warm and dry. Neurological: General: No focal deficit present. Mental Status: He is alert. Psychiatric: Mood and Affect: Mood normal. Behavior: Behavior normal. Thought Content: Thought content normal. Judgment: Judgment normal. Allergies Patient has no known allergies. Current Medications Current Outpatient Medications: acetaminophen (Tylenol 8 HOUR) 650 mg ER tablet, Take 1 tablet (650 mg) by mouth 2 times a day. Do not crush, chew, or split., Disp: , Rfl: apixaban (Eliquis) 5 mg tablet, Take 1 tablet (5 mg) by mouth once daily., Disp: , Rfl: ascorbic acid (Vitamin C) 1,000 mg tablet, Take 1 tablet (1,000 mg) by mouth once daily., Disp: , Rfl: indapamide (Lozol) 1.25 mg tablet, Take 1 tablet (1.25 mg) by mouth once daily., Disp: 90 tablet, Rfl: 3 magnesium oxide (Mag-Ox) 400 mg tablet, Take 1 tablet (400 mg) by mouth once daily., Disp: , Rfl: multivitamin with minerals iron-free (Centrum Silver), Take 1 tablet by mouth once daily., Disp: , Rfl: saw palmetto 450 mg capsule, Take by mouth., Disp: , Rfl: selenium 200 mcg capsule, Take by mouth., Disp: , Rfl: metoprolol succinate XL (Toprol-XL) 50 mg 24 hr tablet, Take 1 tablet (50 mg) by mouth once daily. Do not crush or chew., Disp: 90 tablet, Rfl: 3 Assessment/Plan 1. Essential hypertension, benign Follow Up In Cardiology 2. Left atrial dilation Transthoracic Echo Complete 3. Mitral valve insufficiency, unspecified etiology Transthoracic Echo Complete 4. Persistent atrial fibrillation with rapid ventricular response (Multi) ECG 12 Lead metoprolol succinate XL (Toprol-XL) 50 mg 24 hr tablet 5. High risk medication use Referral to Valve and Structural Heart Program 6. Shortness of breath 7. Former smoker Scribe Attestation By signing my name below, IAlycia LPN, Scribe attest that this documentation has been prepared under the direction and in the presence of Avelina Chowdhury MD. Provider Attestation - Scribe documentation All medical record entries made by the Scribe were at my direction and personally dictated by me. I have reviewed the chart and agree that the record accurately reflects my personal performance of the history, physical exam, discussion and plan. documented in this encounter [facility] Work Phone: 12-25-2023 Instructions Alycia Borrego LPN - 12/25/2023 11:00 AM EDT Please bring all medicines, vitamins, and herbal supplements with you when you come to the office. Prescriptions will not be filled unless you are compliant with your follow up appointments or have a follow up appointment scheduled as per instruction of your physician. Refills should be requested at the time of your visit. BMI was above normal measurement. Current weight: 75.8 kg (167 lb) Weight change since last visit (-) denotes wt loss -5 lbs Weight loss needed to achieve BMI 25: 17.1 Lbs Weight loss needed to achieve BMI 30: -12.9 Lbs Provided instructions on dietary changes Provided instructions on exercise. documented in this encounter [facility] Work Phone: 11-14-2021 History of Present illness Narrative New patient to Dr. Levin Last seen with Dr. 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 Epiretinal membrane (ERM) of both eyes [facility] Diagnosis Paroxysmal atrial fibrillation (HCC)- Primary [...] use of anticoagulants [facility] Diagnosis Paroxysmal atrial fibrillation (HCC)- Primary Atrial fibrillation Persistent atrial fibrillation (HCC) Atrial fibrillation [facility] Diagnosis Paroxysmal atrial fibrillation (HCC) Atrial fibrillation [facility] Diagnosis Chronic systolic (congestive) heart failure (HCC)- Primary [facility] Diagnosis Atrial fibrillation, persistent (HCC)- Primary Atrial fibrillation Typical atrial flutter (HCC) Atrial flutter documented in this encounter [facility] note* Diagnosis Gastrointestinal bleeding, lower- Primary Hemorrhage of gastrointestinal tract, unspecified Atrial fibrillation, persistent (HCC) Atrial fibrillation Atypical atrial flutter (HCC) Atrial flutter Typical atrial flutter (HCC) Atrial flutter documented in this encounter [facility] note* Diagnosis Essential hypertension, benign Left atrial dilation Cardiomegaly Mitral valve insufficiency, unspecified etiology Persistent atrial fibrillation with rapid ventricular response (Multi) High risk medication use Shortness of breath Former smoker Personal history of tobacco use, presenting hazards to health documented in this encounter [facility] Work Phone: Evaluation note* Diagnosis Chronic systolic (congestive) heart failure (HCC)- Primary [facility] Diagnosis Chronic diastolic heart failure (HCC)- Primary Chronic diastolic heart failure Complex medical condition Typical atrial flutter (HCC) Atrial flutter Paroxysmal atrial fibrillation (HCC) Atrial fibrillation Essential hypertension, benign Cardiomyopathy, nonischemic (HCC) Other primary cardiomyopathies Other hyperlipidemia History of partial colectomy Chronic anticoagulation Long-term (current) use of anticoagulants documented in this encounter [facility] for referral (narrative)* Outpatient Procedure (Routine) - Authorized Specialty Diagnoses / Procedures Referred By Contac t Referred To Contact [facility] [place] Diagnoses Paroxysmal atrial fibrillation (HCC) Procedures ECG COMPLETE ECG ROUTINE ECG W/LEAST 12 LDS W/I&R Arsen Talavera MD [address] [place] [address] [facility] V[facility] [place] [address] [place] [address] Referral ID Status Reason Start Date Expiration Date Visits Requested Visits Authorized [id number] Authorized Auto-Generat ed Referral 02/05/2024 02/04/2025 1 1 [facility] for referral (narrative)* Consultation (Routine) - Authorized Specialty Diagnoses / Procedures Referred By Sophia t Referred To Contact Cardiology Diagnoses High risk medication use Avelina Chowdhury MD [address] [facility] 2, [address] [address] [place] [address] [place] [id number] Referral ID Status Reason Start Date Expiration Date Visits Requested Visits Authorized [id number] Authorized Specialty Services Required 12/25/2023 12/24/2024 1 1 * Consultation (Routine) - Authorized Specialty Diagnoses / Procedures [facility]erred To Contact Cardiology Diagnoses Essential hypertension, benign Procedures Follow Up In Cardiology Avelina Chowdhury MD [address] [facility], [place] [address] [place] [address] Avelina Chowdhury MD [address] [facility], [place] [address] [place] [address] Referral ID Status Reason Start Date Expiration Date V isits Requested Visits Authorized [id number] Authorized 12/25/2023 12/24/2024 1 1 * CV Imaging (Routine) - Authorized Specialty Diagnoses / Procedures Referred By Contac t Referred To Contact Cardiology Diagnoses Left atrial dilation Mitral valve insufficiency, unspecified etiology Procedures Transthoracic Echo Complete AR ECHO TTHRC R-T 2D W/WOM-MODE COMPL SPEC&COLR D Avelina Chowdhury MD [address] [facility], [address] [place] [address] Referral ID Status Reason Start Date Expiration Date Visits Requested Visits Authorized [id number] Authorized Perform Procedure 12/25/2023 12/24/2024 1 1 * Cardiovascular (Routine) - Authorized Specialty Diagnoses / Procedures Referred By Sophia t Referred To Contact Diagnoses Persistent atrial fibrillation with rapid ventricular response (Multi) Procedures ECG 12 Lead Avelina Chowdhury MD [address] [facility] 2, [facility] [address] [place] [address] Referral ID Status Reason Start Date Expiration Date V isits Requested Visits Authorized [id number] Authorized 12/25/2023 12/24/2024 1 1 [facility] Work Phone: Reason for referral (narrative)* Outpatient Procedure (Routine) - Authorized Specialty Diagnoses / Procedures Referred By Sophia t Referred To [facility] Diagnoses Chronic diastolic heart failure (HCC) Procedures ECHO ECHO TTHRC R-T 2D W/WOM-MODE COMPL SPEC&COLR D Kendra Mendoza MD [address] [place] [address] [facility] [place] [address] [place] [address] Referral ID Status Reason Start Date Expiration Date Visits Requested Visits Authorized [id number] Authorized Auto-Generat ed Referral 11/22/2024 05/24/2025 1 1 * Transition of Care (Routine) - Authorized Specialty Diagnoses / Procedures Referred By Sophia carlos Referred To Contact [facility] Procedures CARDIOVASCULAR MEDICINE OP FOLLOW UP APPT ORDER Kendra Mendoza MD [address] [place] [address] [address] Referral ID Status Reason Start Date Expiration Date Visits Requested Visits Authorized [id number] Authorized PCP Requested Referral 11/22/2024 05/24/2025 1 1 [facility] for visit Narrative* Outpatient Procedure (Routine) - Closed Specialty Diagnoses / Procedures Referred By Sophia carlos Referred To Contact [facility] Diagnoses Paroxysmal atrial fibrillation (HCC) Procedures ECHO TRANSESOPHAGEAL ECHO TRANSESOPHAG R-T 2D W/PRB IMG ACQUISJ I&R Kendra Mendoza MD [address] [place] [address] [address] Referral ID Status Reason Start Date Expiration Date V isits Requested Visits Authorized [id number] Closed Auto-Generate d Referral 02/04/2024 02/03/2025 1 1 [facility] Summary Purpose Family History Unknown Family [...] Directives Records Found Chief Complaint * BRANDI DALTON is being seen for results. * Patient [...] tocheck HR for PAF per Dr. Avelina Chowdhury MD * Patient states that he has been holding his diltazem since 01/14 and has been monitoring his BP and HR at home on his home monitor and HR has been averaging 76-84 ( scanned to chart for review) He denies any symptoms of lightheaded or dizziness since stopping the medication. * Reviewed with Genevieve Negrete RN * TO Dr. Avelina Chwodhury MD Reason for Referral Specialty Diagnoses / Procedures Referred By Sophia t Referred To Contact [facility] Procedures CARDIOVASCULAR MEDICINE OP FOLLOW UP APPT ORDER Kendra Mendoza MD [address] [place] [address] [address] Referral ID Status Reason Start Date Expiration Date Visits Requested Visits Authorized [id number] Ref Not Required PCP Requested Referral 03/06/2024 02/03/2025 1 1 Specialty Diagnoses / Procedures Referred By Contac t Referred To Contact Diagnoses Paroxysmal atrial fibrillation (HCC) Procedures CONSULT TO ELECTROPHYSIOLOGY OFFICE/OUTPATIENT NEW HIGH MDM 60 MINUTES Kendra Mendoza MD [address] [place], [place] [id number] Referral ID Status Reason Start Date Expiration Date Visits Requested Visits Authorized [id number] Authorized PCP Requested Referral 02/04/2024 02/03/2025 1 1 Specialty Diagnoses / Procedures Referred By Contac t Referred To Contact [facility] Diagnoses Paroxysmal atrial fibrillation (HCC) Chronic systolic (congestive) heart failure (HCC) Procedures ECHO ECHO TTHRC R-T 2D W/WOM-MODE COMPL SPEC&[place] [address] [place] [address] [address] [address] Referral ID Status Reason Start Date Expiration Date Visits Requested Visits Authorized [id number] New Request Auto-Generat ed Referral 02/03/2025 1 1 Specialty Diagnoses / Procedures Referred By Contac t Referred To Contact [facility] Diagnoses Paroxysmal atrial fibrillation (HCC) Procedures ECHO TRANSESOPHAGEAL ECHO TRANSESOPHAG R-T 2D W/PRB IMG ACQUISJ I&R Kendra Mendoza MD [address] [place] [address] [address] Referral ID Status Reason Start Date Expiration Date Visits Requested Visits Authorized [id number] New Request Auto-Generat ed Referral 02/04/2024 02/03/2025 1 1 Specialty Diagnoses / Procedures Referred By Contac t Referred To Contact [facility] [place] Diagnoses Atrial fibrillation, persistent (HCC) Typical atrial flutter (HCC) Procedures CARDIOVASCULAR MEDICINE OP FOLLOW UP APPT ORDER Rd Qureshi MD [address] [place] [address] [facility] [place] [address] [address] Referral ID Status Reason Start Date Expiration Date Visits Requested Visits Authorized [id number] Ref Not Required PCP Requested Referral 05/09/2024 05/09/2025 1 1 Specialty Diagnoses / Procedures Referred By Contact Referred To Contact Cardiology / CARDIOVASCULAR MEDICINE Diagnoses Gastrointestinal bleeding, lower Atrial fibrillation, persistent (HCC) Atypical atrial flutter (HCC) Procedures CONSULT TO ELECTROPHYSIOLOGY OFFICE/OUTPATIENT [facility] [address] Qureshi MD [address] [place] [address] [address] [place] [address] Referral ID Status Reason Start Date Expiration Date Visits Requested Visits Authorized [id number] Authorized PCP Requested Referral 05/16/2024 05/16/2025 1 1 Additional Source Comments (unrecognized sect ion and content) No Status Records FoundNo Status Records FoundNo Status Records FoundNo Status Records FoundNo Status Records FoundNo Status Records FoundNo Status Records FoundNo Status Records FoundNo Status Records Found INFORMATION SOURCE (unrecogn ized section and content) DATE CREATED AUTHOR 01/19/2021 [facility] DATE CREATED AUTHOR AUTHOR'S ORGANIZ ATION 09/22/[address] [facility] DATE CREATED AUTHOR AUTHOR'S ORGANIZ ATION 11/16/2022 [facility] DATE CREATED AUTHOR AUTHOR'S ORGANIZ ATION 12/02/2022 [employer] DATE CREATED AUTHOR AUTHOR'S ORGANIZ ATION 01/29/2023 [facility] [place] DATE CREATED AUTHOR AUTHOR'S ORGANIZ ATION 01/04/2024 [facility] DATE CREATED AUTHOR AUTHOR'S ORGANIZ ATION 01/13/2024 [facility] DATE CREATED AUTHOR AUTHOR'S ORGANIZ ATION 02/03/2024 [facility] DATE CREATED AUTHOR AUTHOR'S ORGANIZ ATION 05/26/2024 [facility] Source Comments (unrecognize d section and content) In the event this informatio n is protected by the Federal Confidentiality of Alcohol and Drug Abuse Patient Records regulations: The Federal rules restrict any use of the information to criminally investigate or prosecute any alcohol or drug abuse patient.[facility] the event this information is protected by the Federal Confidentiality of Alcohol and Drug Abuse Patient Records regulations: The Federal rules restrict any use of the information to criminally investigate or prosecute any alcohol or drug abuse patient.[facility] the event this information is protected by the Federal Confidentiality of Alcohol and Drug Abuse Patient Records regulations: The Federal rules restrict any use of the information to criminally investigate or prosecute any alcohol or drug abuse patient.[facility] the event this information is protected by the Federal Confidentiality of Alcohol and Drug Abuse Patient Records regulations: The Federal rules restrict any use of the information to criminally investigate or prosecute any alcohol or drug abuse patient.[facility] the event this information is protected by the Federal Confidentiality of Alcohol and Drug Abuse Patient Records regulations: The Federal rules restrict any use of the information to criminally investigate or prosecute any alcohol or drug abuse patient.[facility] the event this information is protected by the Federal Confidentiality of Alcohol and Drug Abuse Patient Records regulations: The Federal rules restrict any use of the information to criminally investigate or prosecute any alcohol or drug abuse patient.[facility] the event this information is protected by the Federal Confidentiality of Alcohol and Drug Abuse Patient Records regulations: The Federal rules restrict any use of the information to criminally investigate or prosecute any alcohol or drug abuse patient.[facility] the event this information is protected by the Federal Confidentiality of Alcohol and Drug Abuse Patient Records regulations: The Federal rules restrict any use of the information to criminally investigate or prosecute any alcohol or drug abuse patient.[facility] the event this information is protected by the Federal Confidentiality of Alcohol and Drug Abuse Patient Records regulations: The Federal rules restrict any use of the information to criminally investigate or prosecute any alcohol or drug abuse patient.[facility] the event this information is protected by the Federal Confidentiality of Alcohol and Drug Abuse Patient Records regulations: The Federal rules restrict any use of the information to criminally investigate or prosecute any alcohol or drug abuse patient.[facility] the event this information is protected by the Federal Confidentiality of Alcohol and Drug Abuse Patient Records regulations: The Federal rules restrict any use of the information to criminally investigate or prosecute any alcohol or drug abuse patient.[facility] the event this information is protected by the Federal Confidentiality of Alcohol and Drug Abuse Patient Records regulations: The Federal rules restrict any use of the information to criminally investigate or prosecute any alcohol or drug abuse patient.[facility] the event this information is protected by the Federal Confidentiality of Alcohol and Drug Abuse Patient Records regulations: The Federal rules restrict any use of the information to criminally investigate or prosecute any alcohol or drug abuse patient.[facility] the event this information is protected by the Federal Confidentiality of Alcohol and Drug Abuse Patient Records regulations: The Federal rules restrict any use of the information to criminally investigate or prosecute any alcohol or drug abuse patient.[facility] Reason for Visit (unrecogniz ed section and content) Reason Comments Epiretinal Membrane Follow Up [facility] Choroidal nevus of left eye Reason Comments Consult Reason Comments Patient Education [facility]- [facility] Reason Comments Appointment [facility] Reason Comments Follow Up Specialty Diagnoses / Procedures Referred By Sophia carols Referred To Contact [facility] Procedures CARDIOVASCULAR MEDICINE OP FOLLOW UP APPT ORDER Kendra Mendoza MD [address] [place] [address] [facility] [place] [address] [place] [address] Referral ID Status Reason Start Date Expiration Date Visits Requested Visits Authorized [id number] Ref Not Required PCP Requested Referral 03/06/2024 02/03/2025 1 1 Reason Onset Date Comments Atrial Fibrillation 05/09/2024 Reason Onset Date Comments Atrial Fibrillation 05/16/2024 Reason Comments Patient Update Procedures Reason Comments Follow-up PER I Increased SO B, Dry Cough Specialty Diagnoses / Procedures Referred By Contac t Referred To Contact Diagnoses Persistent atrial fibrillation with rapid ventricular response (Multi) Procedures ECG 12 Lead Avelina Chowdhury MD [address] [facility] 2, Philip [address] [place] [id number] Referral ID Status Reason Start Date Expiration Date V isits Requested Visits Authorized [id number] Authorized 12/25/2023 12/24/2024 1 1 Reason Comments Follow Up Care Teams (unrecognized sec tion and content) 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 Start Date End Date Jailyn Meeks [address] [employer] [address] [id number] PCP - General 09/11/03 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 Start Date End Date Jailyn Meeks [address] [place] [employer] [address] [id number] PCP - General 09/11/03 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 Start Date End Date Samantha Maya MD [address] [place] [id number] PCP - General Family Medicine 02/05/24 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 Start Date End Date Samantha Maya MD [address] [place] [address] PCP - General Family Medicine 02/05/24 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 Start Date End Date Samantha Maya MD [address] [place] [address] PCP - General Family Medicine 02/05/24 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 Start Date End Date Samantha Maya MD [address] [place] [address] PCP - General Family Medicine 02/05/24 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 Start Date End Date Samantha Maya MD [address] [place] [address] PCP - General Family Medicine 02/05/24 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 Start Date End Date Julia Jailyn Ratliff [address] [phone] PCP - General 09/11/03 02/04/24 Samantha Maya MD [address] [place] [address] PCP - General Family Medicine 02/05/24 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 Start Date End Date Samantha Maya MD [address] [place] [address] PCP - General Family Medicine 02/05/24 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 [employer] [facility]. provides no warranty or guarantee of the accuracy or completeness of information in this document.
--- NOTE | 2024-06-01 02:58 | ED_ITS ---
HPI - Abdominal Pain General Chief Complaint: Abdominal Pain Stated Complaint: ABDOMINAL PAIN Time Seen by Provider: 06/01/24 02:47 Source: patient Mode of arrival: walk-in Limitations: no limitations History of Present Illness HPI narrative: Patient presents to ED complaining of left lower quadrant abdominal pain. He states it started around 7 PM. He tried to go to bed and sleep it off but the pain kept waking him up. He said the pain kind of comes and goes. He does have a history of kidney stones but states that usually causes back pain and this pain is more in the front. Patient states he does have a history of diverticulosis but is never had diverticulitis. He was at his daughter's house last night for [employer] festivities but did not eat anything out of the norm or anything that he was allergic to. Patient states he has a very mild cough no fever no sore throat no congestion. Patient reports nausea but he states that is due to the pain. He said he did have some vomiting but was only able to vomit up some phlegm. He ambulated into the ED. He is alert and oriented answering questions appropriately. He denies back pain he denies chest pain or shortness of breath Related Data Home Medications ?Medication ?Instructions ?Recorded ?Confirmed acetaminophen 650 mg 650 mg PO Q8H PRN pain 12/29/23 12/29/23 tablet,extended release apixaban 5 mg tablet (Eliquis) 2.5 mg PO BID 12/29/23 06/01/24 ascorbic acid (vitamin C) 1,000 mg 1 g PO DAILY 12/29/23 12/29/23 tablet (C-1000) calcium 600 mg (as 1 tab PO DAILY 12/29/23 12/29/23 carbonate)-vitamin D3 5 mcg (200 unit) tablet indapamide 1.25 mg tablet 1.25 mg PO DAILY 12/29/23 12/29/23 magnesium 400 mg PO DAILY 12/29/23 06/01/24 metoprolol succinate 50 mg 50 mg PO DAILY 12/29/23 06/01/24 tablet,extended release 24 hr saw palmetto 450 mg capsule 450 mg PO DAILY 12/29/23 06/01/24 selenium 200 mcg capsule 200 mcg PO DAILY 12/29/23 12/29/23 amoxicillin 500 mg capsule mg 06/01/24 Previous Rx's ?Medication ?Instructions ?Recorded isosorbide mononitrate 30 mg 30 mg PO QAM #30 tabs 12/30/23 tablet,extended release 24 hr lisinopril 5 mg tablet 5 mg PO QD #30 tabs 12/30/23 ondansetron 4 mg disintegrating 4 mg PO DAILY PRN nausea and 06/01/24 tablet vomiting #15 tabs oxycodone-acetaminophen 5 mg-325 1 tab PO Q6H PRN pain #14 tabs 06/01/24 mg tablet (Percocet) Allergies Allergy/AdvReac Type Severity Reaction Status Date / Time No Known Drug Allergies Allergy Verified 06/01/24 02:59 Review of Systems ROS Status of ROS 10 or more systems reviewed and unremark able except as noted in history and below [facility] Medical History (Updated 06/01/24 @ 04:43 by Halie Alegria DO) Atrial fibrillation ?I48.91 - Unspecified atrial fibrillation (ICD-10) MOYA (dyspnea on exertion) ?R06.09 - Other forms of dyspnea (ICD-10) Congestive heart failure ?I50.9 - Heart failure, unspecified (ICD-10) Normal colonoscopy Lower GI bleed ?K92.2 - Gastrointestinal hemorrhage, unspecified (ICD-10) Carpal tunnel syndrome ?G56.00 - Carpal tunnel syndrome, unspecified upper limb (ICD-10) 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 - Acute infarction of intestine, part and extent unspecified (ICD- 10) Ischemic colitis ?K55.9 - Vascular disorder of intestine, unspecified (ICD-10) GI hemorrhage ?K92.2 - Gastrointestinal hemorrhage, unspecified (ICD-10) Kidney stone ?N20.0 - Calculus of kidney (ICD-10) Strain of left triceps tendon ?S46.312A - Strain of muscle, fascia and tendon of triceps, left arm, initial encounter (ICD-10) Patellar tendonitis of left knee ?M76.52 - Patellar tendinitis, left knee (ICD-10) Mitral valve prolapse ?I34.1 - Nonrheumatic mitral (valve) prolapse (ICD-10) Afib ?I48.91 - Unspecified atrial fibrillation (ICD-10) HTN (hypertension) ?I10 - Essential (primary) hypertension (ICD-10) Surgical History (Updated 12/29/23 @ 20:31 by Marla Metz RN) History of total left knee replacement ?Z96.652 - Presence of left artificial knee joint (ICD-10) History of total right knee replacement ?Z96.651 - Presence of right artificial knee joint (ICD-10) Hx of colectomy ?Z90.49 - Acquired absence of other specified parts of digestive tract (ICD- 10) History of lithotripsy ?Z98.890 - Other specified postprocedural states (ICD-10) History of cataract surgery ?Z98.49 - Cataract extraction status, unspecified eye (ICD-10) Hx of right heart catheterization ?Z98.890 - Other specified postprocedural states (ICD-10) Hx of tonsillectomy ?Z90.89 - Acquired absence of other organs (ICD-10) Social History Highest level of school completed/degree received: high school graduate Little interest or pleasure in doing things: not at all Feeling down, depressed, or hopeless: not at all Do you think of yourself as: straight/heterosexual Gender Identity: male Exam Narrative Exam Narrative: Time Seen: [] Vital Signs: [Per nurse's notes.] General: [Alert] Skin: [Warm, dry, no rash.] Head: [Normocephalic, atraumatic.] Neck: [Supple, trachea midline.] Eye: [Pupils are equal, round and reactive to light, extraocular movements are intact, normal conjunctiva.] Ears, nose, mouth and throat: oral mucosa moist. Cardiovascular: [Regular rate and rhythm, no murmur.] Respiratory: [Lungs are clear to auscultation, respirations are non-labored, breath sounds are equal.] Chest wall: [No tenderness, no deformity.] Gastrointestinal: [Soft, lower quadrant abdominal pain non distended, normal bowel sounds.] MSK: 5 out of 5 muscle strength x 4 extremities no calf pain or edema Lymphatics: [No lymphadenopathy.] Psychiatric: [Cooperative, appropriate mood & affect.] Neurological: [Alert and oriented to person, place, time, and situation, no focal neurological deficit observed.] Constitutional Vital Signs, click to edit/add: Last Vital Signs Temp 97.9 F 06/01/24 02:48 Pulse 79 06/01/24 05:01 Resp 18 06/01/24 05:01 BP 137/78 06/01/24 05:01 Pulse Ox 94 L 06/01/24 05:01 O2 Del Method Room Air 06/01/24 05:01 Course Vital Signs Vital signs: Vital Signs Temperature 97.9 F 06/01/24 02:48 Pulse Rate 90 06/01/24 02:48 Respiratory Rate 20 06/01/24 02:48 Blood Pressure 190/110 H 06/01/24 02:48 Pulse Oximetry 97 06/01/24 02:48 Oxygen Delivery Method Room Air 06/01/24 02:48 Temperature 97.9 F 06/01/24 02:48 Pulse Rate 79 06/01/24 05:01 Respiratory Rate 18 06/01/24 05:01 Blood Pressure 137/78 06/01/24 05:01 Pulse Oximetry 94 L 06/01/24 05:01 Oxygen Delivery Method Room Air 06/01/24 05:01 MDM - Abdominal Pain MDM Narrative Medical decision making narrative: Patient has a 2.5 mm stone in the UPJ on the left. Patient is pain-free at this time and feels much better. Creatinine is not elevated more than his baseline. He does not have a white count or fever. He is not vomiting anymore. Patient would prefer to go home and try to pass his stone at home. He does see the urology office typically has seen Dr. Arriaza who retired but he is also seeing Dr. Gage in the past. I told him to call Dr. Gage on the when the office opens back up again. Return to ED if fevers chills vomiting worsening pain or any other concerns. Patient is stable and comfortable with discharge for home and will return if worsening symptoms Differential Diagnosis Differential diagnosis: Likely abdominal pain, calculus of kidney, constipation, diverticulitis and small bowel obstruction Lab Data Attestation: I reviewed the patient's lab results. Labs: Lab Results 06/01/24 Range/Units 03:03 WBC 7.7 (4.0-11.0) 10^3/uL RBC 3.58 L (4.70-6.10) 10^6/uL Hgb 12.7 L (14.0-18.0) g/dL Hct 37.5 L (42.0-54.0) % MCV 104.7 H (80.0-94.0) fL MCH 35.5 H (25.9-34.0) pg MCHC 33.9 (29.9-35.2) g/dL RDW 12.5 (11.0-15.0) % Plt Count 174 (150-450) 10^3/uL MPV 9.9 (9.5-13.5) fL Neut % (Auto) 75.9 H (43.0-75.0) % Lymph % (Auto) 13.1 L (20.5-60.0) % York % (Auto) 8.2 (1.7-12.0) % Eos % (Auto) 1.7 (0.9-7.0) % Baso % (Auto) 0.8 (0.2-2.0) % Neut # (Auto) 5.8 (1.4-6.5) 10^3/uL Lymph # (Auto) 1.0 L (1.2-3.8) 10^3/uL York # (Auto) 0.6 (0.3-0.8) 10^3/uL Eos # (Auto) 0.1 (0.0-0.7) 10^3/uL Baso # (Auto) 0.1 (0.0-0.1) 10^3/uL Abs Immat Gran (auto) 0.02 (0.00-0.03) 10^3/uL Imm/Tot Granulo (auto) 0.3 (0.0-0.5) % Sodium 140 (136-145) mmol/L Potassium 4.7 (3.5-5.1) mmol/L Chloride 105 (98-107) mmol/L Carbon Dioxide 30.2 (21.0-32.0) mmol/L Anion Gap 9.5 BUN 34.0 H (7.0-18.0) mg/dL Creatinine 1.61 H (0.70-1.30) mg/dL Est GFR ( Amer) 50 L (>=60 mL/min/1.73m^2) Est GFR (Non-Af Amer) 41 L (>=60 mL/min/1.73m^2) BUN/Creatinine Ratio 21.1 Glucose 131 H (74-106) mg/dL Calcium 9.4 (8.5-10.1) mg/dL Total Bilirubin 0.5 (0.2-1.0) mg/dL AST 30 (15-37) U/L ALT 27 (16-63) U/L Alkaline Phosphatase 81 (46-116) U/L Total Protein 7.4 (6.4-8.2) g/dL Albumin 3.6 (3.4-5.0) g/dL Globulin 3.8 g/dL Albumin/Globulin Ratio 0.[address] scan - abdomen: Radiologist's impression: ITS Impressions Abdomen/Pelvis CT 06/01/24 02:54 IMPRESSION: 1. Acute left-sided obstructive uropathy with retained 3.5 mm size proximal left ureteral calculus causing mild to moderate upstream left hydroureteronephrosis. No other calcifications seen within the right or left kidney or ureter. 2. 2.6 cm exophytic hyperdense lesion along the lateral midpole left kidney cortex. Probable proteinaceous cyst but this requires further evaluation with renal ultrasound to confirm benign cystic nature. 3. Changes of previous right hemicolectomy. Moderate stool retention. 4. Widespread extensive colonic diverticulosis. No acute diverticulitis. 5. Mild cardiac enlargement. 6. Osteoporosis with lucent lesions in several lower thoracic and upper lumbar vertebrae of uncertain etiology. Correlate for metastasis or myeloma are not excluded. 7. Additional chronic findings as above. Electronically authenticated by: RADHA FAIRCHILD Date: 06/01/2024 04:27 Discharge Plan Discharge Chief Complaint: Abdominal Pain Clinical Impression: Calculus of kidney Patient Disposition: Home, Self-Care Time of Disposition Decision: 04:43 Condition: Good Mode of Transportation: Private Vehicle Prescriptions / Home Meds: New ondansetron 4 mg tablet,disintegrating 4 mg PO DAILY PRN (Reason: nausea and vomiting) Qty: 15 0RF oxycodone-acetaminophen [Percocet] 5-325 mg tablet 1 tab PO Q6H PRN (Reason: pain) Qty: 14 0RF No Action Eliquis 5 mg tablet 2.5 mg PO BID indapamide 1.25 mg tablet 1.25 mg PO DAILY metoprolol succinate 50 mg tablet extended release 24 hr 50 mg PO DAILY selenium 200 mcg capsule 200 mcg PO DAILY ascorbic acid (vitamin C) [C-1000] 1,000 mg tablet 1 g PO DAILY calcium carbonate-vitamin D3 600 mg-5 mcg (200 unit) tablet 1 tab PO DAILY magnesium 400 mg PO DAILY saw [place] 450 mg capsule 450 mg PO DAILY Rx Instructions: give with food (meal/snack) acetaminophen 650 mg tablet extended release 650 mg PO Q8H PRN (Reason: pain) isosorbide mononitrate 30 mg Tablet Extended Release 24 Hr 30 mg PO QAM Qty: 30 11RF lisinopril 5 mg Tablet 5 mg PO QD Qty: 30 11RF amoxicillin 500 mg capsule Print Language: Stateless Instructions: Kidney Stones (ED) Referrals: Michael Recio MD [Primary Care Provider] - 1 week Mike Gage MD [Physician] - As soon as possible Discharge Date/Time: 06/01/24 05:01
[2024-06-01] MEDS: MORPHINE SULFATE 4 MG/ML VIAL IV ×2 (03:03→04:16)
[2024-06-01] MEDS: 0.9 % SODIUM CHLORIDE 500 ML IV (03:04)
[2024-06-01] MEDS: ONDANSETRON PF 4 MG/2 ML VIAL IV (03:08)
[2024-06-01 03:09] LABS: Basophils Absolute Auto 0.1 10^3/uL (0.0-0.1); Basophils Percent Auto 0.8 % (0.2-2.0); Eosinophils Absolute Auto 0.1 10^3/uL (0.0-0.7); Eosinophils Percent Auto 1.7 % (0.9-7.0); Hematocrit 37.5 % (42.0-54.0); Hemoglobin 12.7 g/dL (14.0-18.0); Immature Granulocytes Abs Auto 0.02 10^3/uL (0.00-0.03); Immature Granulocytes Pct Auto 0.3 % (0.0-0.5); Lymphocytes Percent Auto 13.1 % (20.5-60.0); Mean Corpuscular HGB Conc 33.9 g/dL (29.9-35.2); Mean Corpuscular Hemoglobin 35.5 pg (25.9-34.0); Mean Corpuscular Volume 104.7 fL (80.0-94.0); Mean Platelet Volume 9.9 fL (9.5-13.5); Monocytes Absolute Auto 0.6 10^3/uL (0.3-0.8); Monocytes Percent Auto 8.2 % (1.7-12.0); Neutrophils Absolute Auto 5.8 10^3/uL (1.4-6.5); Neutrophils Percent Auto 75.9 % (43.0-75.0); Platelet Count 174 10^3/uL (150-450); Red Blood Count 3.58 10^6/uL (4.70-6.10); Red Cell Distribution Width 12.5 % (11.0-15.0); White Blood Count 7.7 10^3/uL (4.0-11.0)
[2024-06-01 03:25] LABS: Alanine Aminotransferase 27 U/L (16-63); Albumin Globulin Ratio 0.9; Albumin Level 3.6 g/dL (3.4-5.0); Alkaline Phosphatase 81 U/L (46-116); Anion Gap 9.5; Aspartate Amino Transferase 30 U/L (15-37); BUN Creatinine Ratio 21.1; Bilirubin Total 0.5 mg/dL (0.2-1.0); Calcium 9.4 mg/dL (8.5-10.1); Carbon Dioxide 30.2 mmol/L (21.0-32.0); Chloride 105 mmol/L (98-107); Estimated GFR (African America 50 (>=60 mL/min/1.73m^2); Estimated GFR (Non-African Ame 41 (>=60 mL/min/1.73m^2); Globulin 3.8 g/dL; Glucose 131 mg/dL (74-106); Potassium 4.7 mmol/L (3.5-5.1); Sodium 140 mmol/L (136-145); Total Protein 7.4 g/dL (6.4-8.2)
[2024-06-01 04:22] VITALS: BP 113/62; O2SAT 95
--- NOTE | 2024-06-01 04:24 | PC.NURSE ---
Pt pain is at a one on 0-10 scale. Morphine is effective.
[2024-06-01] MEDS: OXYCODONE HCL/ACETAMINOPHEN 5MG/325MG 2 TAB PO (04:53)
[2024-06-01 05:01] VITALS: BP 137/78; PULSE 79; O2SAT 94
== END 2024-06-01 05:01 | disposition home or self-care (01) ==
PROVIDERS: Emergency Provider Emergency Medicine; PCP Family Medicine
DX: N20.0 Calculus of kidney (principal); Z87.442 Personal history of urinary calculi; K57.30 Diverticulosis of large intestine without perforation or abscess without bleeding; Z96.652 Presence of left artificial knee joint; Z96.651 Presence of right artificial knee joint; Z90.49 Acquired absence of other specified parts of digestive tract
CPT/HCPCS: 36415; 74177; 80053; 85025; 96374; 96375; 96376; 99285; J2270; J2405; Q9966

== ENCOUNTER 2024-12-30 10:29 | Outpatient (OUT) | payer MEDICARE, OTHER, SELFPAY ==
--- NOTE | 2024-12-30 10:34 | US_ITS ---
The [address] [address] Patient Name: BRANDI RAHMAN MRN: [id number] date: 1940 Sex: M Assigned Patient Location: [place] Current Patient Location: [place] Accession/Order Number: [id number] Exam Date: 12/30/2024 11:18 Report Date: 12/30/2024 11:23 At the request of: MIKE LAUREANO MD Procedure: US renal BI BILATERAL RENAL AND BLADDER ULTRASOUND CLINICAL HISTORY: Renal Lesion, Ureteral Stone COMPARISON: CT abdomen and pelvis 06/01/2024 FINDINGS: Estimation of renal size is approximately 8.4 cm on the right and 9.9 cm on the left. No contour deforming mass, shadowing stone or hydronephrosis. 2.9 cm cyst left kidney. The urinary bladder is partially distended with a volume of 105 mL . No shadowing stone or focal lesion. US/US renal BI IMPRESSION: NO ACUTE PROCESS. NO HYDRONEPHROSIS. Impression dictated by: Олег Madera Jr., D.O. 12/30/2024 11:23 AM Dictation Location: [place] [address] Electronically authenticated by: [id number] Y Date: 12/30/2024 11:23
== END 2024-12-30 10:30 | disposition home or self-care (01) ==
LOC: US 10:29
PROVIDERS: PCP Family Medicine; Visit Provider Student in an Organized Health Care Education/Training Program
DX: N28.9 Disorder of kidney and ureter, unspecified (principal); N13.2 Hydronephrosis with renal and ureteral calculous obstruction
CPT/HCPCS: 76775

== ENCOUNTER 2025-04-24 09:06 | Outpatient (OUT) | payer MEDICARE, OTHER, SELFPAY ==
--- OUTSIDE RECORDS SUMMARY | 2025-04-24 09:13 | XMS_ITS | CCD ---
Author Organization [facility] Care Team Providers Care [employer] Etcher Stripper Name Role Phone Levi Dumont Primary Care Provider FRANCESCO ., DR SINGH Admitting Unavailable HOY ., DR SINGH Attending Unavailable HOY ., DR SINGH Primary Care Unavailable HOY ., DR SINGH Consulting Unavailable HOY ., DR ISNGH Admitting Unavailable HOY ., DR SINGH Attending [...] Dr. Samantha Reyes Primary Care Unavail able Chowdhury, Dr. Avelina Frank Attending Anita vailable Grady, Dr. Avelina Frank Referring Anita vailable Francesco, Dr. Samantha Reyes Primary Care Unavail able Chowdhury, Dr. Avelina Frank Attending Anita vailable Francesco, Dr. Samantha Reyes Primary Care Unavail able Hoy, Dr. Samantha Reyes Primary Care Unavail able Chowdhury, Dr. Avelina Frank Attending Anita vailable Grady, Dr. Avelina Frank Referring Anita vailable HUSEYIN FOSTER Attending Unavailable HUSEYIN FOSTER Referring Unavailable CANDYSAMANTHA Aviles Primary Care Unavailable AVELINA CHOWDHURY Referring Unavailable SAMANTHA MAYA Primary Care Unavailable AVELINA CHOWDHURY Attending Unavailable FRANCESCOSAMANTHA Primary Care Unavailable AVELINA CHOWDHURY Attending Unavailable FRANCESCOSAMANTHA Primary Care Unavailable Levi Dumont Primary Care Provider [phone] Samantha Maya MD Primary Care Provider Levi Dumont Primary Care Provider Samantha Maya MD Primary Care Provider [phone] Samantha Maya Primary Care Physician MD MIKE SLADE Attending Unav ailMD MIKE Craig Referring Unav ailable MD MIKE SLADE Admitting Unav ailable MD MIKE SLADE Attending Unav ailable Ella RN, [facility] Unavailable LAYA SLADENA Attending Unavail able NKANSGUY-AMBERTRAMRA, MIKE Attending Unavail able NKANSAH-AMANKRA, MIKE Admitting Unavail able NKANSAH-AMANKRA, MIKE Referring Unavail able NKANSAH-AMANKRA, MIKE Attending Unavail able NKANSAH-AMKOFI, MIKE Admitting Unavail able NKANSAH-AMANKRA, MIKE Referring Unavail able Blanca Polanco Attending Unavailable NKANSAH-AMBERTRAMRA, MIKE Attending Unavail able NKANSGUY-AMBERTRAMRA MIKE Attending Unavail able KOCHAR, ARSHNEEL Referring Unavailable HOY, SAMANTHA M Primary Care Unavailable KOCHAR, ARSHNEEL Referring Unavailable HOY, SAMANTHA M Primary Care Unavailable KOCHAR, ARSHNEEL Referring Unavailable HOY, SAMANTHA M Primary Care Unavailable JOSE MARIA PORTER Attending Unavailable KOCHAR, ARSHNEEL Referring Unavailable HOY, SAMANTHA M Primary Care Unavailable TOMY HUTTON Attending Unavailable KOCHAR, ARSHNEEL Referring Unavailable HOY, SAMANTHA M Primary Care Unavailable JOSE MARIA PORTER Referring Unavailable HOY, SAMANTHA M Primary Care Unavailable ANAY, ARSEN Referring Unavailable HOY, SAMANTHA M Primary Care Unavailable HSICH, KENDRA M Referring Unavailable HOY, SAMANTHA M Primary Care Unavailable HSICH, KENDRA M Attending Unavailable HSICH, KENDRA M Referring Unavailable HOY, SAMANTHA M Primary Care Unavailable HSICH, KENDRA M Referring Unavailable HOY, SAMANTHA M Primary Care Unavailable KOCHAR, ARSHNEEL Referring Unavailable HOY, SAMANTHA M Primary Care Unavailable KOCHAR, ARSHNEEL Attending Unavailable HOY, SAMANTHA M Primary Care Unavailable KOCHAR, ARSHNEEL Referring Unavailable HOY, SAMANTHA M Primary Care Unavailable HSICH, KENDRA M Attending Unavailable HSICH, KENDRA M Referring Unavailable HOY, SAMANTHA M Primary Care Unavailable COMPA CORCORAN Attending Unavailable HSICH, KENDRA M Referring Unavailable HOY, SAMANTHA M Primary Care Unavailable RD QURESHI Attending Unavailable HOY, SAMANTHA M Primary Care Unavailable HSICH, KENDRA M Referring Unavailable HOY, SAMANTHA M Primary Care Unavailable Allergies Allergy ClassificationReported Allergen(s)Allergy TypeDate of OnsetReaction(s) Facility (2 sources)No Known Medication Allergies; Translations: [No Known Medication Allergies]Propensity to adverse reactions (disorder)[facility] Medications Current Medications MedicationDrug Class(es)DatesSig (Normalized)Sig (Original)8 hr acetaminophen 650 mg extended release oral tablet (20 sources)Start: 54-11-9388Jzoilbq 8 HR Arthritis Pain 650 mg oral tablet, extended release 1,300 mg = 2 tab(s), Oral, q8hr, Refills(s) 0, Pain Start Date: 06/09/24 Status: Ordered Repeat number: 1Start: 69-07-3181nfwh 1 tablet by mouth every eight hoursTylenol 8 HR Arthritis Pain 650 mg oral tablet, extended release mg tab(s), Oral, q8hr, Refills(s) 0 Start Date: 06/09/24 Status: Ordered acetaminophen (TYLENOL ARTHRITIS ORAL) Take by mouth as needed. Activetake 1 tablet by mouth twice dailyacetaminophen (Tylenol 8 HOUR) 650 mg ER tablet Take 1 tablet (650 mg) by mouth 2 times a day. Do not crush, chew, or split. Active acetaminophen (TYLENOL ARTHRITIS ORAL) Take by mouth as needed. 0 ActiveComment on above:Take by mouth as needed.apixaban 2.5 mg oral tablet (20 sources)Factor Xa InhibitorStart: 33-65-4886zdes 1 tablet by mouth twice dailyEliquis 2.5 mg oral tablet 2.5 mg = 1 tab(s), Oral, BID, Refills(s) 0, Blood Thinner Start Date: 06/09/24 Status: Ordered Repeat number: 1Start: 10-27-2022 End: 18-57-0476egtf 1 tablet by mouth once dailyapixaban (ELIQUIS) 5 mg tab(s) Take 5 mg by mouth once daily. 10/27/2022 05/24/2024 DiscontinuedStart: 29-69-0236yfup 1 tablet by mouth twice dailyapixaban (ELIQUIS) 5 mg tab(s) Take 5 mg by mouth two times a day. 10/27/2022 Activeascorbic acid 250 mg oral tablet (20 sources)Vitamin CStart: 08-83-4918xwnq 250 mg by mouth once dailyVitamin C 250 mg, Oral, Daily, Refills(s) 0, Prophylaxis Start Date: 03/01/19 Status: Ordered Repeatnumber: 1Start: 99-41-1265Odzpmyw C Daily, Refills(s) 0 Start Date: 03/01/19 Status: Orderedtake 1 tablet by mouth once dailyascorbic acid, vitamin C, (VITAMIN C) 500 mg tablet Take 500 mg by mouth once daily. Activetake 1 tablet by mouth once dailyascorbic acid (Vitamin C) 1,000 mg tablet Take 1 tablet (1,000 mg) by mouth once daily. ActiveComment on above:Take 500 mg by mouth once daily.benoxinate hydrochloride 4 mg/ml / fluorescein sodium 2.5 mg/ml ophthalmic solution (1 source)Diagnostic DyeStart: 11-14-2021 End: 94-46-5856witanabgxvz-benoxinate 0.25-0.4 % 1 Drop (FLURESS)Calcium Carbonate / vitamin D3 (20 sources)CALCIUM CARBONATE/VITAMIN D3 (CALCIUM + D ORAL) Take by mouth once daily. ActiveCALCIUM CARBONATE/VITAMIN D3 (CALCIUM + D ORAL) Take by mouth. ActiveCALCIUM CARBONATE/VITAMIN D3 (CALCIUM + D ORAL) Take by mouth. 0 Active Comment on above:Take by mouth.Centrum Silver (6 sources)Start: 54-61-2050lnyr 1 tablet by mouth once dailyCentrum Silver 1 tab(s), Oral, Daily, Refill(s) 0, Prophylaxis Start Date: 03/01/19 Status: Ordered Repeat number: 1Start: 13-40-6838uvld 1 tablet by mouth once daily Centrum Silver 1 tab(s), Oral, Daily, Refill(s) 0, Prophylaxis Start Date: 03/01/19 Status: OrderedStart: 57-30-2216zkoi 1 tablet by mouth once dailyCentrum Silver tab(s), Oral, Daily, Refill(s) 0 Start Date: 03/01/19 Status: Ordered docusate sodium 50 mg oral capsule (4 sources)Start: 28-46-1707ulak 1 capsule by mouth twice daily as needed for constipationColace 50 mg oral capsule 50 mg = 1 cap(s), Oral, BID, PRN for constipation, # 180 cap(s), Refills(s) 0, Pharmacy: [facility]/pharmacy #[id number], 165, cm, 06/09/24 13:18:00 EST, Height/Length Dosing, 159.8, kg,06/09/24 13:18:00 EST, Weight Dosing Start Date: 06/16/24 Status: Ordered Quantity: 180.0 Unit: cap(s) Repeat number: 1indapamide 1.25 mg oral tablet (4 sources)Thiazide-like DiureticStart: 10-19-2023 End: 87-69-1303gonx 1 tablet by mouth once dailyindapamide (Lozol) 1.25 mg tablet Indications: Essential hypertension, benign Take 1 tablet (1.25 mg) by mouth once daily. 90 tablet 3 10/19/2023 10/18/2024 ActiveStart: 14-10-5308nmdd 1 tablet by mouth once dailyIndapamide 1.25 MG Oral Tablet TAKE 1 TABLET ONCE DAILY. Quantity: 90 Refills: 3 Ordered: 24-Oct-2022 Avelina Chowdhury MD Start : 24-Oct-2022 Active new startlisinopril 5 mg oral tablet (20 sources)Angiotensin Converting Enzyme InhibitorStart: 17-08-5279kzwx 1 tablet by mouth once dailylisinopril 5 mg Tab 5 mg = 1 tab(s), Oral, Daily, # 90 tab(s), Refills(s) 0, High blood pressure Start Date: 06/09/24 Status: Ordered Quantity: 90.0 Unit: tab(s) Repeat number: 1magnesium oxide 400 mg oral tablet (20 sources)Start: 33-30-3702szyu 1 tablet by mouth once dailymagnesium oxide 400 mg (240 mg elemental magnesium) oral tablet See Instructions, Refill(s) 0, 1 tab daily 400 mg, Prophylaxis Start Date: 06/09/24 Status: Ordered Repeat number: 1Magnesium 500 MG CAPS TAKE 1 CAPSULE Daily Quantity: 0 Refills: 0 Ordered: 24-Oct-2022 DO Vxtzgt27 hr metoprolol succinate 50 mg extended release oral tablet (7 sources)beta-Adrenergic BlockerStart: 12-25-2023 End: 05-42-7387zhkk 1 tablet by mouth once dailymetoprolol succinate ER (TOPROL XL) 50 mg 24 hr tablet Take 50 mg by mouth once daily. 12/25/2023 Active multivitamin with minerals iron-free (Centrum Silver) (1 source)take 1 tablet by mouth once dailymultivitamin with minerals iron-free (Centrum Silver) Take 1 tablet by mouth once daily. Active Jqxkcbkhcnevk-Byiceqxx-Itltfe (CENTRUM SILVER) tab (20 sources)take 1 tablet by mouth once vsltqVxyhdxmpeaygl-Jchylxih-Sudgzi (CENTRUM SILVER) tab Take 1 tablet by mouth once daily. ActiveoxyCODONE hydrochloride 5 mg oral capsule (4 sources)Opioid AgonistStart: 63-42-2810edto 1 capsule by mouth every six hours as needed for painoxyCODONE 5 mg Cap 5 mg = 1 cap(s), Oral, q6hr, PRN for pain, # 4 cap(s), Refills(s) 0, Pharmacy: [facility]/pharmacy #[id number], 165, cm, 06/09/24 13:18:00 EST, Height/Length Dosing, 159.8, kg, 06/09/24 13:18:00 EST, Weight Dosing Start Date: 06/16/24 Status: Ordered Quantity: 4.0 Unit: cap(s) Repeat number: 1phenylephrine hydrochloride 25 mg/ml ophthalmic solution (1 source)alpha-1 Adrenergic AgonistStart: 11-14-2021 End: 68-88-2820PXRUHWxdwxyyd 2.5 % 1 Drop (AK-DILATE, LUZMARIA-SYNEPHRINE) proparacaine hydrochloride 5 mg/ml ophthalmic solution (1 source)Local AnestheticStart: 11-14-2021 End: 75-67-1284hbaimvtaaijq 0.5 % 1 Drop (ALCAINE)saw palmetto 450 mg capsule (1 source)saw palmetto 450 mg capsule Take by mouth. Activesaw palmetto 450 mg oral capsule (6 sources)Start: 28-67-8288babd 1 capsule by mouth once dailysaw palmetto 450 mg oral capsule 450 mg = 1 cap(s), Oral, Daily, Refills(s) 0, Prophylaxis Start Date: 06/09/24 Status: Ordered Repeat number: 1Start: 31-88-7854jjmu 1 capsule by mouth once dailysaw palmetto 450 mg oral capsule 450 mg = 1 cap(s), Oral, Daily, Refills(s) 0, Prophylaxis Start Date: 06/09/24 Status: OrderedStart: 06-09-2024 take 1 mg by mouth once dailysaw palmetto 450 mg oral capsule mg cap(s), Oral, Daily, Refills(s) 0 Start Date: 06/09/24 Status: OrderedSelenium (6 sources)Start: 46-97-5647anvp 200 ug by mouth once dailyselenium 200 mcg, Oral, Daily, Refills(s) 0, Prophylaxis Start Date: 06/09/24 Status: Ordered Repeat number: 1Start: 26-32-9151hxal 200 ug by mouth once dailyselenium 200 mcg, Oral, Daily, Refills(s) 0, Prophylaxis Start Date: 06/09/24 Status: OrderedStart: 16-51-8762mxbz 200 ug by mouth once dailyselenium 200 mcg, Oral, Daily, Refills(s) 0 Start Date: 06/09/24 Status: Orderedselenium 200 mcg cap (20 sources)take 1 capsule by mouth once dailyselenium 200 mcg cap Take by mouth once daily. Activeselenium 200 mcg cap Take by mouth. Activeselenium 200 mcg cap Take by mouth. 0 ActiveComment on above:Take by mouth.selenium 200 mcg capsule (1 source)selenium 200 mcg capsule Take by mouth. Lsooge841 ml sodium chloride 9 mg/ml prefilled syringe (10 sources)Start: 02-04-2024 End: 25-98-0392vqemao chloride 0.9 %, flush, (BD POSIFLUSH) syringe Indications: PAF (paroxysmal atrial fibrillation) (HCC) Inject 2-10 mL intravenously as directed. For Echo procedure 10 mL 12/19/2024 12/19/2025 Activetamsulosin hydrochloride 0.4 mg oral capsule (4 sources)alpha-Adrenergic BlockerStart: 07-29-4388sykd 1 capsule by mouth once dailyFlomax 0.4 mg Cap 0.4 mg = 1 cap(s), Oral, Daily, # 10 cap(s), Refills(s) 0, Pharmacy: [facility]/pharmacy#[id number], 165, cm, 06/09/24 13:18:00 EST, Height/Length Dosing, 159.8, kg, 06/09/24 13:18:00 EST, Weight Dosing Start Date: 06/16/24 Status: Ordered Quantity: 10.0 Unit: cap(s) Repeat number: 1tropicamide 10 mg/ml ophthalmic solution (1 source)AnticholinergicStart: 11-14-2021 End: 77-42-4043inkuuajuryp 1 % 1 Drop (MYDRIACYL)[place] Calcium and Vitamin D (2 sources)Start: 91-56-7466iicj 1 mL by mouth twice dailyWell[place] Calcium and Vitamin D mL, Oral, BID, Refill(s) 0 Start Date: 06/09/24 Status: Ordered ZNOX/PYG/PUMPK/SAW PAL/PROST (MEN'S SAW PALMETTO FORMULA ORAL) (20 sources)ZNOX/PYG/PUMPK/SAW PAL/PROST (MEN'S SAW PALMETTO FORMULA ORAL) Take by mouth once daily. ActiveZNOX/PYG/PUMPK/SAW PAL/PROST (MEN'S SAW PALMETTO FORMULA ORAL) Take by mouth. ActiveZNOX/PYG/PUMPK/SAW PAL/PROST (MEN'S SAW PALMETTO FORMULA ORAL) Take by mouth. 0 ActiveComment on above:Take by mouth. Completed/Discontinued Medications MedicationDrug Class(es)DatesSig (Normalized)Sig (Original)Benzocaine (1 source)Standardized Chemical AllergenStart: 02-09-2024 End: 52-30-9278CFPOFMG, X (OR/PROCEDURE) PRN, Starting on Thu02/09/24 at 1334, Until Thu02/09/24 at 1334, IntraprocedureCalcium (3 sources)Phosphate Binder, CalciumCalcium + D TABS TAKE 1 TABLET DAILY. Quantity: 0 Refills: 0 Ordered: 24-Oct-2022 DO ActiveCentrum Silver TABS (3 sources)Centrum Silver TABS TAKE 1 TABLET DAILY. Quantity: 0 Refills: 0 Ordered: 24-Oct-2022 DO Ioqmoy14 hr dilTIAZem hydrochloride 180 mg extended release oral capsule (4 sources)Calcium Channel BlockerStart: 11-10-2015 End: 80-96-2573rxfszstcc CD (CARDIZEM CD, CARTIA XT) 180 mg 24 hr capsule Take 180 mg by mouth as directed. 11/10/2015 02/04/2024 DiscontinuedComment on above: Take 180 mg by mouth as directed.docosahexaenoic acid 120 mg / eicosapentaenoic acid 180 mg oral capsule (2 sources) End: 60-28-7535hngi 1 capsule by mouth once dailyDocosahexanoic Acid-Eicosapent 120-180 mg capsule Take 1,000 mg by mouth once daily. 02/04/2024 Discontinued Comment on above:Take 1,000 mg by mouth once daily.1 ml fentaNYL 0.05 mg/ml injection (1 source)Opioid AgonistStart: 02-09-2024 End: 80-50-2369KSPZVHQSHPG, X (OR/PROCEDURE) PRN, Starting on Thu02/09/24 at 1337, Until Thu02/09/24 at 1414, IntraprocedureFLAXSEED OIL (OMEGA 3 ORAL) (2 sources) End: 31-56-2914GBROIAYN OIL (OMEGA 3 ORAL) Take by mouth. 02/04/2024 DiscontinuedFLAXSEED OIL (OMEGA 3 ORAL) Take by mouth. 0 ActiveComment on above: Take by mouth.FOLIC ACID/MULTIVIT-MIN/LUTEIN (CENTRUM SILVER ORAL) (2 sources) End: 99-83-7891KNSON ACID/MULTIVIT-MIN/LUTEIN (CENTRUM SILVER ORAL) Take by mouth. 02/04/2024 DiscontinuedFOLIC ACID/MULTIVIT-MIN/LUTEIN (CENTRUM SILVER ORAL) Take by mouth. 0 ActiveComment on above:Take by mouth.furosemide 40 mg oral tablet (9 sources)Loop DiureticStart: 01-28-2024 End: 43-30-5393FRONC 40 mg tablet Take 1 tablet by mouth as needed (for weight gain/ fluid retention). 03/18/2024 05/06/2024 Discontinued (Discontinued by another Health Care Provider)lidocaine hydrochloride 0.02 mg/mg topical gel (1 source)Antiarrhythmic, Amide Local AnestheticStart: 02-09-2024 End: 02-09-2024X (OR/PROCEDURE) PRN, Starting on Thu02/09/24 at 1334, Until Thu02/09/24 at 1334, Intraprocedurelosartan potassium 100 mg oral tablet (4 sources)Angiotensin 2 Receptor BlockerStart: 11-10-2015 End: 32-08-4929pmov 1 tablet by mouth once dailylosartan (COZAAR) 100 mg tablet Take 100 mg by mouth once daily. 11/10/2015 02/04/2024 DiscontinuedComment on above:Take 100 mg by mouth once daily.magnesium S-sxomue-wgfdvfeviii 42 mg (500 mg)- 250 mg tablet extended release (1 source) End: 02-26-6219ittztkamt H-hsluoq-yaxeaiejqqx 42 mg (500 mg)- 250 mg tablet extended release Take by mouth. 12/25/2023 Discontinued (Med List Cleanup)5 ml midazolam 1 mg/ml injection (1 source)BenzodiazepineStart: 02-09-2024 End: 39-64-9039JZLFLJKKGME, X (OR/PROCEDURE) PRN, Starting on Thu02/09/24 at 1337, Until Thu02/09/24 at 1414, Intraprocedurepotassium chloride 10 meq extended release oral tablet (9 sources)Start: 03-18-2024 End: 44-33-4425bhyd 1 tablet by mouth once daily as neededKLOR-CON 10 10 mEq tablet Take 1 tablet by mouth as needed (on days that you take lasix). 03/18/2024 05/06/2024 Discontinued (Discontinued by another Health Care Provider)Start: 02-01-2024 End: 93-42-0148vfsu 1 tablet by mouth twice dailyKLOR-CON 10 10 mEq tablet Take 10 mEq by mouth two times a day. 02/01/2024 03/18/2024 Discontinuedrivaroxaban 20 mg oral tablet (3 sources)Factor Xa InhibitorStart: 02-63-8631fluh 1 tablet by mouth once daily Xarelto 20 MG Oral Tablet Take 1 tablet daily Quantity: 90 Refills: 3 Ordered: 04-Nov-2022 Avelina Chowdhury MD Start : 24-Oct-2022 ActiveSaw [place] 450 MG Oral Capsule (3 sources)Saw [place] 450 MG Oral Capsule TAKE DIRECTED. Quantity: 0 Refills: 0 Ordered: 24-Oct-2022 DO ActiveSaw [place] Fruit 450 mg cap (1 source)Start: 05-24-2020 End: 82-19-7452fsmp 1 capsule by mouth once dailySaw [place] Fruit 450 mg cap Take 450 mg by mouth once daily. 05/24/2020 02/04/2024 DiscontinuedSelenium 200 MCG Oral Capsule (3 sources)Selenium 200 MCG Oral Capsule TAKE DIRECTED. Quantity: 0 Refills: 0 Ordered: 24-Oct-2022 DO Activevitamin b6 200 mg oral tablet (2 sources) End: 17-38-7722kwlv 1 tablet by mouth once dailyPyridoxine HCl 200 mg tablet Take 200 mg by mouth once daily. 02/04/2024 DiscontinuedComment on above:Take 200 mg by mouth once daily. Problems Active Problems Problem ClassificationProblemDateDocumented DateEpisodic/ChronicCalculus of urinary tract (20 sources)History of calculus of kidney; Translations: [Kidney stone]Onset: 618104-95-3700DzljmmttJhihwof dysrhythmias (20 sources)Persistent atrial fibrillation; Translations: [Atrial fibrillation] Onset: 03-18-2023 Resolved: 889452-03-4822VbfvohqZhubqtw dysrhythmias (1 source)Tachycardia-induced cardiomyopathy; Translations: [Tachycardia, unspecified]77-73-4419TxwqwsvvUqjobkkkop heart failure; nonhypertensive (20 sources)Unspecified diastolic (congestive) heart failure; Translations: [Chronic systolic heart failure]Onset: 495478-33-1433BqcvunoCtpqsfbta of lipid metabolism (4 sources)Hyperlipidemia, unspecified; Translations: [Hyperlipidemia]Onset: 266669-84-0936EkjexlkVnofarlpn hypertension (19 sources)Benign essential hypertension; Translations: [Benign essential hypertension]Onset: 12-14-3232PqunuxrKutjtepysxxchvie hemorrhage (20 sources)Lower gastrointestinal hemorrhage; Translations: [Gastrointestinal hemorrhage, unspecified]Onset: 182392-60-6739RqwefydhZukysvqcxvkio symptoms and ill-defined conditions (12 sources)Increased frequency of urination; Translations: [Nocturia]03-01-2019 EpisodicHeart valve disorders (20 sources)Mitral valve regurgitation; Translations: [Mitral valve disorders] Onset: 22-68-5962QdyxcbcVfuywpvqzvg of prostate (8 sources)Benign prostatic hypertrophy with outflow obstruction; Translations: [Benign prostatic hyperplasia with lower urinary tract symptoms]Onset: 002830-26-5587UygkdswXpkmvkzrgugv with complications and secondary hypertension (1 source)Hypertensive heart disease with heart failure; Translations: [HTN HEART DISEASE W/HEART FAIL]Onset: 45-54-4391EzpdluyFlywdejsp of unspecified nature or uncertain behavior (5 sources)Monoclonal gammopathy (clinical); Translations: [Monoclonal gammopathy]Onset: 623478-79-7378FofgbtoHtrpyiblpgdhvp (9 sources)Arthritis; Translations: [Unspecified osteoarthritis, unspecified site]Onset: 914738-88-2560ObifioqYtbhx aftercare (3 sources)Drug therapy finding; Translations: [Long-term (current) use of other medications]EpisodicOther aftercare (7 sources)Long-term current use of anticoagulant; Translations: [USP (current) use of anticoagulants]Onset: 469799-96-1777ClofjjutUoklu and ill-defined heart disease (14 sources)Left atrial dilatation; Translations: [Cardiomegaly]Onset: 849355-75-3724WkupvfeSouqh and ill-defined heart disease (4 sources)Cardiomegaly; Translations: [Cardiomegaly]Onset: 19-86-3910Rgzcjsz Other and unspecified benign neoplasm (1 source)Nevus of choroid of left eye; Translations: [Benign neoplasm of left choroid]EpisodicOther circulatory disease (12 sources)H/O: hypertension; Translations: [Personal history of other diseases of circulatory system]Onset: 283042-14-5054HoioitjzBzgrj diseases of kidney and ureters (3 sources)Urinary tract obstruction; Translations: [Hydronephrosis with renal and ureteral calculous obstruction]Onset: 93-82-3117XrfgtfxaZbiso diseases of kidney and ureters (3 sources)Disorder of kidney and/or ureter; Translations: [Disorder of kidney and ureter, unspecified]Onset: 34-86-3958UsqvqpjpNzpwh diseases of kidney and ureters (6 sources)Kidney nheqhg46-46-0483YbbybjaqAqwhh gastrointestinal disorders (2 sources)History of gastrointestinal bleed; Translations: [Personal history of other diseases of the digestive system]26-98-5137XzohcernOedqs lower respiratory disease (4 sources)Other forms of dyspnea; Translations: [OTHER FORMS OF DYSPNEA]Onset: 93-84-3001KcpzlbrwVcmpw lower respiratory disease (5 sources)Dyspnea; Translations: [Other respiratory abnormalities]Onset: 258264-48-8522HjakpwfuTfsht lower respiratory disease (2 sources)Shortness of breath; Translations: [Shortness of breath]Onset: 66-21-9670ZhwyknjrAoeis nervous system disorders (5 sources)Carpal tunnel syndrome; Translations: [Carpal tunnel syndrome] 59-75-7156WpcvulpOqxrs nervous system disorders (4 sources)Lesion of ulnar nerve, left upper limb; Translations: [Cubital tunnel syndrome on left]Onset: 230810-57-0877SkjdsdsBqyoj nervous system disorders (4 sources)Lesion of ulnar nerve, right upper limb; Translations: [Cubital tunnel syndrome on right]Onset: 583747-04-0053OyuaerrBddwk nervous system disorders (12 sources)Bilateral carpal tunnel syndrome; Translations: [Carpal tunnel syndrome, bilateral upper limbs]Onset: 686082-68-4603WzvhaiyRpybd non- traumatic joint disorders (1 source)Other specified joint disorders, right shoulder; Translations: [OTH SPECIFIED JOINT D/O RT SHOULDER]Onset: 78-04-3347DmaibmflMixow nutritional; endocrine; and metabolic disorders (3 sources)Overweight in adulthood with body mass index of 25 or more but less than 30; Translations: [Overweight]EpisodicPeri-; endo-; and myocarditis; cardiomyopathy (except that caused by tuberculosis or sexually transmitted disease) (4 sources)Cardiomyopathy; Translations: [Other cardiomyopathies]02-04-2024 ChronicPeripheral and visceral atherosclerosis (9 sources)Ischemic colitis; Translations: [Vascular disorder of intestine, unspecified]Onset: 893639-67-4888FiujbpwNfvkpkmojv and visceral atherosclerosis (9 sources)Mesenteric infarction; Translations: [Acute infarction of intestine, part and extent unspecified]Onset: 985057-86-8477XoxccwcgQxkifhmu codes; unclassified (3 sources)History of partial resection of colon; Translations: [Acquired absence of other specified parts of digestive tract]47-04-5227SbovbjwtLhiwyisw codes; unclassified (2 sources)Other specified health status; Translations: [Other specified conditions influencing health status]68-57-4052OyahnofhMssybeyh codes; unclassified (9 sources)History of cardiac catheterization; Translations: [Other specified postprocedural states]Onset: 627783-64-0422WzzhokniMacdvbi detachments; defects; vascular occlusion; and retinopathy (1 source)Bilateral epiretinal membrane of eyes; 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, bilateral]ChronicScreening and history of mental health and substance abuse codes (10 sources)Personal history of nicotine dependence; Translations: [Ex-smoker] Onset: 60-68-0099YmpiotdhAsartlp disorders (1 source)Hypothyroidism; Translations: [Other specified hypothyroidism] 25-65-9454OvujdquEunwxhjyzhmv (1 source)Encounter for preprocedural laboratory examination; Translations: [Encounter for preprocedural laboratory examination]Onset: 10-27-2022 Unclassified (6 sources)Other persistent atrial fibrillation; Translations: [Other persistent atrial fibrillation (Multi)]Onset: 62-54-8772Qcegbfxrkchf (6 sources)Drug therapy nbndjgi80-52-6395Iqvlhvlflxab (6 sources)Obstructive [id number] (1 source)Radiology NMOnset: 10-03-2024 Past or Other Problems Problem ClassificationProblemDateDocumented DateEpisodic/ChronicDeficiency and other anemia (9 sources)Iron deficiency anemia; Translations: [Iron deficiency anemia, unspecified]Onset: [id number] mellitus without complication (1 source)Other abnormal glucose; Translations: [OTHER ABNORMAL GLUCOSE]Onset: 90-47-1451DnyafscpLszus aftercare (4 sources)Other care home (current) drug therapy; Translations: [Other exterminator (current) drug therapy]Onset: 48-85-7018PtrovdhhYqqpi aftercare (2 sources)Taking high risk medication; Translations: [Other exterminator (current) drug therapy]Onset: [id number] circulatory disease (11 sources)Low blood pressure; Translations: [Hypotension, unspecified]Onset: 319351-14-1961TgibgwgkAdqbe lower respiratory disease (4 sources)Dyspnea, unspecified; Translations: [DYSPNEA UNSPECIFIED]Onset: 83-27-2487ZmbknyseAendh screening for suspected conditions (not mental disorders or infectious disease) (1 source)Encounter for screening for malignant neoplasm of prostate; Translations: [ENC SCREEN MALIG NEOPLASM PROSTATE]Onset: 40-67-3541Owawwwus Residual codes; unclassified (2 sources)H/O: respiratory disease; Translations: [Personal history of other diseases of respiratory system] Resolved: 04-90-7190QudrbcyxSibtsshttrwl (3 sources)Never smoked tobacco; Translations: [Never a smoker]Unclassified (1 source)Onset: Results Test NameValueInterpretationReference RangeFacilBanner Estrella Medical CenterCOon 65-71-5279OKUXDtibxf TextNormalCNewark HospitalCNPNon 10-25-0178DZMHKaaaknumx (PLASCA) BRANDI DALTON ([id number]) 1940 M Date Time Provider Department 03/08/25 JOSE MARIA PORTER During your visit today, we recorded the following information about you: Camilla Carlisle 03/08/2025 5:26 PM Signed 03/08/25 Scheduled from September for Virtual apt with Dr German Hung MD on 05/19/25 at 11:30 AM . Sent letter and message with [employer]. Mailed out apt reminder with contact information. Camilla Carlisle Allergies As of Date: 03/08/2025 (No Known Allergies) Date Reviewed: 12/05/2024 Reviewed by: Joan Mora MA - Fully Assessed Prescriptions as of 03/08/2025 - sodium chloride 0.9 %, flush, (BD POSIFLUSH) syringe Inject 2-10 mL intravenously as directed. For Echo procedure - apixaban (ELIQUIS) 2.5 mg tab(s) Take 1 tablet by mouth two times a day. - Ygjurnsrxbhnr-Klzfxxzy-Ucdaam (CENTRUM SILVER) tab Take 1 tablet by [...] D3 (CALCIUM + D ORAL) Take by mouth once daily. - ZNOX/PYG/PUMPK/SAW PAL/PROST (MEN'S SAW PALMETTO FORMULA ORAL) Take by mouth once daily. - selenium 200 mcg cap Take by mouth once daily. 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] 09/20/2024 Non-rheumatic mitral regurgitation [I34.0] 10/31/2022 Persistent atrial fibrillation with rapid ventr*03/18/2023 Rectal bleed [K62.5] 09/20/2024 Chronic diastolic heart failure (HCC) [I50.32] 10/03/2024 PAF (paroxysmal atrial fibrillation) (HCC) [I48*10/03/2024 Encounter Status:Closed by CAMILLA CARLISLE on 03/08/25[facility] HospitalAmb[facility] Visit Summaryon 18-27-3496Tznhiivewu Visit SummaryAmbulatory Visit Summary BRANDI DALTON JR :1940 Visit Date:01/02/2025 Ambulatory Visit Instructions Your Diagnosis Ureteral stone with hydronephrosis Renal lesion BPH with urinary obstruction Anticoagulated Your Care Team Attending Physician - GEORGI TRUJILLO, MIKE Primary Care Physician - Samantha Maya MD This Is Your Medications List acetaminophen (Tylenol 8 HR Arthritis Pain 650 mg oral tablet, extended release) apixaban (Eliquis 2.5 mg oral tablet) ascorbic acid (Vitamin C) docusate (Colace 50 mg oral capsule) lisinopril (lisinopril 5 mg Tab) magnesium oxide (magnesium oxide 400 mg (240 mg elemental magnesium) oral tablet) multivitamin with minerals (Centrum Silver) oxycodone (oxyCODONE 5 mg Cap) saw palmetto (saw palmetto 450 mg oral capsule) selenium tamsulosin (Flomax 0.4 mg Cap) Procedures Performed Cystoscopic insertion of ureteric stent (06/16/2024), Cataract, Colectomy, Hemorrhage, Knee replacement, Lithotripsy, Tonsillectomy. Discharge Vitals Temperature (Axillary) 37 ???C Heart Rate (Peripheral) 66 Respiratory Rate 16 Blood Pressure 120/76 Height 165 cm Height 65 in Weight 73.1 kg Weight 161.158 lb BMI 26.85 What to do next You Need to Schedule the Following Appointments Follow Up with GEORGI TRUJILLO, JASON MCKEON When: Where: Medications What How Much When Instructions Unchanged acetaminophen (Tylenol 8 HR Arthritis Pain 650 mg oral tablet, extended release) 2 Tablets By Mouth Every 8 hours Unchanged apixaban (Eliquis 2.5 mg oral tablet) 1 Tablets By Mouth 2 times a day Unchanged ascorbic acid (Vitamin C) 250 Milligram By Mouth Every day Unchanged docusate (Colace 50 mg oral capsule) 1 Capsules By Mouth 2 times a day as needed for for constipation Unchanged lisinopril (lisinopril 5 mg Tab) 1 Tablets By Mouth Every day Unchanged magnesium oxide (magnesium oxide 400 mg (240 mg elemental magnesium) oral tablet) See instructions 1 tab daily 400 mg Unchanged multivitamin with minerals (Centrum Silver) 1 Tablets By Mouth Every day Unchanged oxycodone (oxyCODONE 5 mg Cap) 1 Capsules By Mouth Every 6 hours as needed for for pain Unchanged saw palmetto (saw palmetto 450 mg oral capsule) 1 Capsules By Mouth Every day Unchanged selenium 200 Microgram By Mouth Every day Unchanged tamsulosin (Flomax 0.4 mg Cap) 1 Capsules By Mouth Every day Allergies No Known Medication Allergies Problems Ongoing - Any problem that you are currently receiving treatment for. Anticoagulated BPH with urinary obstruction Former smoker Frequent urination History of kidney stones Kidney stone Nocturia Renal lesion Ureteral stone with hydronephrosis Patient Survey You may receive a survey via text or e-mail asking about your office visit. Please share your experience with us by completing your survey. We appreciate your feedback and thank you for choosing us for your care. Education Materials Dietary Guidelines to Help Prevent Kidney Stones Kidney stones are deposits of minerals and salts that form inside your kidneys. Your risk of developing kidney stones may be greater depending on your diet, your lifestyle, the medicines you take, and whether you have certain medical conditions. Most people can lower their risks of developing kidney stones by following these dietary guidelines. Your dietitian may give you more specific instructions depending on your overall health and the type of kidney stones you tend to develop. What are tips for following this plan? Reading food labels ??? Choose foods with no salt added or low-salt labels. Limit your salt (sodium) intake to less than 1,500 mg a day. ??? Choose foods with calcium for each meal and snack. Try to eat about 300 mg of calcium at each meal.Foods that contain 200???500 mg of calcium a serving include: ? 8 oz (237 mL) of milk, asfqrhi-ihszjddtyyxt-mylqp milk, and calcium- fortifiedfruit juice. Calcium-fortified means that calcium has been added to these drinks. ? 8 oz (237 mL) of kefir, yogurt, and soy yogurt. ? 4 oz (114 g) of tofu. ? 1 oz (28 g) of cheese. ? 1 cup (150 g) of dried figs. ? 1 cup (91 g) of cooked broccoli. ? One 3 oz (85 g) can of sardines or mackerel. Most people need 1,000???1,500 mg of calcium a day. Talk to your dietitian about how much calcium is recommended for you. Shopping ??? Buy plenty of fresh fruits and vegetables. Most people do not need to avoid fruits and vegetables, even if these foods contain nutrients that may contribute to kidney stones. ??? When shopping for convenience foods, choose: ? Whole pieces of fruit. ? Pre-made salads with dressing on the side. ? Low-fat fruit and yogurt smoothies. ??? Avoid buying frozen meals or prepared deli foods. These can be high in sodium. ??? Look for foods with live cultures, such as yogurt and kefir. ?? (more content not included)...[facility] Office/Clinic Noteon [id number] Office/Clinic NoteUrology Office/Clinic Note Chief Complaint 6 mth w/ PAOLA HPI Staff 84 year old male here for 6 month with PAOLA Previous DX: ureteral stone with hydronephrosis, renal lesion, BPH w/LUTS PAOLA 12/30/24 History of Present Illness Tests reviewed: reviewed UA and PAOLA. I have reviewed the previous health record information and history for this patient from Dr. Loomis I have reviewed and verified the staff HPI to be accurate for this encounter. There have been no associated fever, chills, flank pain, or blood in the urine. Denies any urinary infections since last encounter. Review of Systems PHQ Score Initial Depression Screen Score: 0 SCORE ROS - Provider Constitutional: denies weight loss, denies hot flashes. Eyes: denies eye problems. Gastrointestinal: denies nausea, denies vomiting. Cardiovascular: denies chest pain or angina. Integumentary: no dryness Musculoskeletal: denies musculoskeletal symptoms. ENMT: denies otolaryngeal symptoms. Respiratory: no shortness of breath. Heme/Lymph: denies easy bleeding tendency, denies easy bruising tendency. Psychiatric: no confusion, no anxiety. Genitourinary: See HPI. Physical Exam Vitals & Measurements T: 37 ???C(Axillary) HR: 66(Peripheral) RR: 16 BP: 120/76 HT: 165 cm HT: 65 in WT: 73.1 kg WT: 161.158 lb BMI: 26.85 General Appearance: alert, no distress, well nourished, well developed male. Assessment/Plan FEDERICO N/A Portions of this record may have been created with voice recognition artificial intelligence software, specifically [employer], [employer] and or [employer]. Substitutions may have occurred due to the inherent limitations of voice recognition and artificial intelligence software. 1. Ureteral stone with hydronephrosis (N13.2: Hydronephrosis with renal and ureteral calculous obstruction) Hx of lithotripsy years ago. Pt presented to [facility] ER 06/01/24 due to left lower quadrant abdominal pain associated with N/V. CT AP w con 06/04/24 - Acute left-sided obstructive uropathy with retained 3.5 mm size proximal left ureteral calculus causing mild to moderate upstream left hydroureteronephrosis. No other calcifications seen within the right or left kidney or ureter. Normal WBC. CMP 06/01/24 - Cr 1.61, EGFR 41. BMP 05/24/24 - Cr 1.32, eGFR 54 S/p cysto, L URS, L RPG, L stent placement 06/16/24. String stent removed at home without difficulty. PAOLA 12/30/24 [facility] - neg for stones or hydro. Resolved. -Dietary changes 2. Renal lesion (N28.9: Disorder of kidney and ureter, unspecified) CT AP w con 06/04/24 [facility] - 2.6 cm exophytic hyperdense lesion along the lateral midpole left kidneycortex. Probable proteinaceous cyst but this requires further evaluation with renal ultrasound to confirm benign cystic nature. PAOLA 12/30/24 [facility] - 2.9 cm cyst L kidney. 3. BPH with urinary obstruction (N40.1: Benign prostatic hyperplasia with lower urinary tract symptoms) S/p cysto, L URS, L RPG, L stent placement 06/16/24 - bilobar hyperplasia of prostate, obstructive in nature with kissing lobes. UA today negative for blood or infection. IPSS 5 (8) Discussed treatment options for BPH, pt would likely benefit from TURP. Pt does not feel mgmt is necessary at this point. -Cont symptomatic monitoring -F/up with ROMAIN in 1 year 4. 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 S/p successful cardioversion 02/2024. On Eliquis for atrial flutter. Patient is an 84-year-old male status post ureteroscopy, laser lithotripsy. He does BPH with LUTS and he however states that his voiding symptoms are nonbothersome, IPSS score is 7. He will follow-upin 1 year with ROMAIN for PVR, IPSS recheck. Follow-up With When Contact Information GEORGI TRUJILLO, JASON MCKEON Additional Instructions: 1 year w/ ROMAIN Patient Education Dietary Guidelines to Help Prevent Kidney Stones Felicita Paniagua, personally scribed for Dr. Loomis on 01/02/2025 10:52:23. . Documentation recorded by the scribe, Felicita Miranda, accurately reflects the services(s) I performed and decisions made by me. Authenticated by Dr. Bill Tenorio on 01/02/2025 11:09:52. Problem List/Past Medical History Ongoing Anticoagulated BPH with urinary obstruction Former smoker Frequent urination History of kidney stones Kidney stone Nocturia Renal lesion Ureteral stone with hydronephrosis Historical No qualifying data Procedure/Surgical History Cystoscopic insertion of ureteric stent (06/16/2024), Cataract, Colectomy, Hemorrhage, Knee replacement, Lithotripsy, Tonsillectomy. Medications Centrum Silver, 1 tab(s), Oral, Daily Colace 50 mg oral capsule, 50 mg= 1 cap(s), Oral, BID, PRN Eliquis 2.5 mg oral tablet, 2.5 mg= 1 tab(s), Oral, BID Flomax 0.4 mg Cap, 0.4 mg= 1 cap(s), Oral, Daily lisinopril 5 mg Tab, 5 mg= 1 tab(s), Oral, (more content not included)...Normal [facility] HospitalComment on above:Result Comment: Electronically Signed By: GEORGI TRUJILLO, MIKE\.br\Date and Time Signed: 01/02/25 11:11 EDT\.br\Electronically Co-Signed By: Felicita Miranda\.br\Date and Time Co- Signed: 01/02/25 10:52 EDTCNCOon [id number] TextNormalCLima Memorial HospitalPNon [id number] (EPSMN) BRANDI DALTON ([id number]) 1940 M Date Time Provider Department 12/14/24 ARIANA VALLES EPSMN During your visit today, we recorded the following information about you: Lolita Banegas RN 12/14/2024 6:17 PM Signed ----- Message from Ariana Valles MD sent at 09/26/2024 4:45 PM EDT ----- Regarding: PVI + Watchman Patient: Brandi Dalton JR EP Lab Procedure requested: Left Appendage Closure Device Watchman CPT 50420 + PVI Anticoagulation Status: Eliquis (apixaban) Requesting Physician: Ariana Valles MD Procedural Physician: Ariana Valles MD or rd qureshi (ablation and Reena for watchman) Date of last HANDP or Date of upcoming HANDP: 09/20/24 Indications for procedure: Atrial Fibrillation and Previous bleed Procedure time frame: Patient convenience Current Meds: Current Outpatient Medications: ? apixaban (ELIQUIS) 2.5 mg tab(s)? Kctzrrpcqnxzo-Mumymrwl-Najvtl (CENTRUM SILVER) tab? magnesium oxide 400 mg magnesium tab? lisinopril (ZESTRIL) 5 mg tablet? ascorbic acid, vitamin C, (VITAMIN C) 500 mg tablet? acetaminophen (TYLENOL ARTHRITIS ORAL)? CALCIUM CARBONATE/VITAMIN D3 (CALCIUM + D ORAL)? ZNOX/PYG/PUMPK/SAW PAL/PROST (MEN'S SAW PALMETTO FORMULA ORAL)? selenium 200 mcg cap MD input Section Potential Research Patient: Yes General anesthesia needed: Yes Moderate anesthesia needed: No Patient a candidate of same day discharge: No Mapping Ablation:FARAPULSE and CARTO CT Scan needed pre-procedure: No ECHO needed pre-procedure:None Anticoagulation: Stop :Eliquis (apixaban) Stop medication: Morning of procedure Stop Antiarrhythmic: No Stop Beta Tyron/ Calcium Channel Tyron: No ASA: N/A Additional instructions:None Ariana Valles MD September 26, 2024 4:46 PM Lolita Banegas RN 12/14/2024 6:18 PM Signed Called and left message offering patient procedure date of Thursday05/26/[address] Valles. Awaiting return call and confirmation from patient. Barbara Mcclendon RN 12/16/2024 2:29 PM Signed I reached out to patient to confirm the date. Patient asked to call back next week, by 12/20/24, with confirmation. Barbara Mcclendon RN 12/19/2024 10:26 AM Signed Patient returned call AND accepted date. SDM by Dr. Hsich - no appointment needed. Needs OPD with EP CHIMNEY MECHANIC, ECG AND Labs (CBC CMP,30 day TANDS with Confirm) within 30 days prior to procedure date. Needs procedural SHARON. Medication instructions given, as indicated below. Stated understanding. Letter with instructions mailed to the patient. Allergies As of Date: 12/14/2024 (No Known Allergies) Date Reviewed: 12/05/2024 Reviewed by: Joan Mora MA - Fully Assessed Reason for Visit: Schedule Surgery [1330] Cmt: PVI ablation+ Watchman implant Primary Visit Diagnosis:PAF (paroxysmal atrial fibrillation) (HCC) [I48.0] Order(s):COMPLETE BLOOD COUNT [SQCBC] Order #: [id number] FUTURE COMPREHENSIVE METABOLIC PANEL [SQCMP] Order #: [id number] FUTURE CONFIRM BLOOD TYPE [SQCONABO] Order #: [id number] FUTURE ECG COMPLETE [ECG01] Order #: [id number] FUTURE ECHO TRANSESOPHAGEAL [[id number]] Order #: [id number]: 1 FUTURE sodium chloride 0.9 %, flush, (BD POSIFLUSH) syringeInject 2-10 mL intravenously as directed. For Echo procedureDisp: 10 mLRfl: 0 TYPE AND SCREEN,30 DAY [ZIKVZS19] Order #: [id number] FUTURE Prescriptions as of 12/19/2024 - sodium chloride 0.9 %, flush, (BD POSIFLUSH) syringe Inject 2-10 mL intravenously as directed. For Echo procedure - apixaban (ELIQUIS) 2.5 mg tab(s) Take 1 tablet by mouth two times a day. - Budshgljxpsgz-Qxzqqzkh-Obdcap (CENTRUM SILVER) tab Take 1 tablet by [...] D3 (CALCIUM + D ORAL) Take by mouth once daily. - ZNOX/PYG/PUMPK/SAW PAL/PROST (MEN'S SAW PALMETTO FORMULA ORAL) Take by mouth once daily. - selenium 200 mcg cap Take by mouth once daily. Problem List As Of Date 12/14/2024 Noted Resolved Bilateral carpal tunnel syndrome [G56.03] 03/18/2023 Arthritis [M19.90] 09/20/2024 Calculus of kidney [N20.0] 09/20/2024 Congestive heart failure (HCC) [I50.9] 02/21/2022 Essential hypertension, benign [I10] 03/18/2023 Gastrointestinal hemorrhage [K92.2] 09/20/2024 History of cardiac catheterization [Z98.890] 09/20/2024 History of hypertension [Z86.79] 09/20/2024 Hypotension [I95.9] 03/18/2023 Iron deficiency anemia [D50.9] 08/05/2016 Ischemic colitis (HCC) [K55.9] 09/20/2024 Left atrial dilation [I51.7] 03/18/2023 Mesenteric infa (more content not included)...[facility] CNOVon [id number] Visit (MEGAN CHF RHONA) BRANDI DALTON ([id number]) 1940 M Date Time Provider Department 12/05/24 12:00 PM KENDRA MENDOZA CHF RHONA During your visit today, we recorded the following information about you: Pulse Blood pressure Weight Height 57/minute 139/78 72.8 kg 1.676 m Kendra Mendoza MD 12/05/2024 5:55 PM Signed [facility] [place] [facility] SECTION OF HEART FAILURE and CARDIAC TRANSPLANT MEDICINE OUTPATIENT VISIT DATE December 05, 2024 OUTPATIENT VISIT TYPE Established Patient PRIMARY CARE PHYSICIAN: Samantha Maya [address] [place] [address] CHIEF COMPLAINT: HF F/u NURSING INTAKE (Patient?s concerns and/or recent hospitalizations/ER visits): HF Nursing Assessment: Interim Hospitalizations and/or ER visits:06/01/2024 Chest Pain: yes, a little Skipping or irregular heartbeats: no Shortness of breath at rest: no Shortness of breath with activity: yes Cough: yes Waking up in the middle of the night gasping for air: no Lightheadedness or dizziness: no Feeling like you are going to pass out: no Actually passing out: no Poor energy level: yes Unintentional weight gain: no Unintentional weight loss: no Swelling in your legs,feet, abdomen: no Filling up quickly when you eat: no HISTORY OF PRESENT ILLNESS: Feels good. BP good from 07/07/24-12/04/24 with SBP 117/75 and HR 71 bmp Seen on 09/20/24 by EP for consideration of Watchman. EP discussed ablation, Watchman and dofetilide with procedures tentatively scheduled in Feb or Mar [address] 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 I explained the need for further lab testing and imaging. We will obtain SPEP, skeletal survey, immunoglobulins and CBC today. Clinically he does not currently have AL amyloidosis and significant ATTR in the heart has been excluded by [facility] imaging. His heart failure symptoms only occurred while he was in atrial fibrillation as well. Provided he is not anemic and does not have bone lesions, we will follow him for a monoclonal gammopathy of undetermined significance with repeat labs in about 6 months. PAST MEDICAL HISTORY Diagnosis Date Atrial fibrillation (HCC) Carpal tunnel syndrome Cataract OU Congestive heart failure (HCC) Dyslipidemia GI bleed Heart disease Hypertension Hypothyroidism Kidney stone Retinal tear 06/08/2000 OS PAST SURGICAL HISTORY Procedure Laterality Date 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 02/09/2024 PAST SURGICAL HISTORY OF 06/08/2000 Left eye Retinal detchement repair (laser) PAST SURGICAL HISTORY OF 06/08/1947 Tonsils PAST SURGICAL HISTORY OF 06/08/1967 Left pat Tend. PAST SURGICAL HISTORY OF 06/08/1975 Repair Left tricept tendent PAST SURGICAL HISTORY OF 06/08/2007 coloencetomy PAST SURGICAL HISTORY OF 06/08/2014 repair carpal tunnel LT PAST SURGICAL HISTORY OF repair carpal tunnel RT RENAL GUM MAKER STENT 06/2024 XCAPSL CTRC RMVL INSJ IO LENS PROSTH W/O ECP Left 06/08/2000 Cataract Extraction with PC IOL Parshour XCAPSL CTRC RMVL INSJ IO LENS PROSTH W/O ECP Right 09/07/2003 Cataract Extraction with PC IOL MARIVEL SOCIAL [...] No Known Allergies CURRENT MEDICATIONS: apixaban (ELIQUIS) 2.5 mg tab(s) Take 1 tablet by mouth two times a day. Fjbezewtpacgc-Kkbymjfr-Wmbzdi (CENTRUM SILVER) tab Take 1 tablet by [...] D3 (CALCIUM + D ORAL) Take by mouth once daily. ZNOX/PYG/PUMPK/SAW PAL/PROST (MEN'S SAW PALMETTO FORMULA ORAL) Take by mouth once daily. selenium 200 mcg cap Take by mouth once daily. REVIEW OF SYSTEMS: ROS HEART FAILURE PATIENT ENTERED DATA: 05/21/2024 09/27/2024 KCCQ-12 Scores Physical Limitation Score 100 (Class I Heart Failure ) 75 (Class II Heart Failure ) Symptom Frequency Score 95.83 (Class I Heart Failure ) 87.5 (Class I Heart Failure ) Quality of Life Score 62.5 (Fair to Good Quality (more content not included)... [facility] [id number] Echocardiography Report: Transthoracic Echo [facility] J35 Date of service: 12/05/2024 11:21:29 AM CAST SUPERVISOR Ordering physician: KENDRA MENDOZA Exam indication: Evaluation of known heart failure to guide therapy Technologist: Cristhian Cheung Interpreting physician: Dany Ireland MD PATIENT: Name: MR. BRANDI DALTON JR : 1940 Age: 84 years Gender: M History of hypertension, dyslipidemia, heart failure with hospitalization and arrhythmia. Previous cardiovascular interventions: Cardioversion (02/09/2024) Primary rhythm: sinus. Height: 165.10 cm BSA: 1.80 m Weight: 70.31 kg BMI: 25.8 kg/m Heart rate 72 bpm Blood pressure 153/86 mmHg Color Doppler was utilized to interrogate the cardiac valves assessed and spectral Doppler was utilized to determine the flow velocities and pressure gradients reported in this exam. Myocardial strain analysis was performed in this exam to aid in the assessment of cardiac function. MEASUREMENTS: Value Indexed Normal LV ID (diastole) 4.6 cm (2D) 2.56 cm/m LV ID (systole) 3.7 cm (2D) 2.06 cm/m IVS, leaflet tips 1.4 cm (2D) Posterior wall thickness 1.0 cm (2D) Left ventricular mass 205 g (2D) 114 g/m Global peak long strain -19.7 % LV stroke volume 62 ml (2D biplane) LV end diastolic volume 107 ml (2D biplane) 59.5 ml/m 34<=EDVi<75 LV end systolic volume 45 ml (2D biplane) 25.1 ml/m Ejection Fraction 58 % (2D biplane) EF > 52 FINDINGS: LEFT VENTRICLE The left ventricle is normal in size. There is mild septal left ventricular hypertrophy. Left ventricular systolic function is normal. Global LV myocardial strain is normal. Normal left ventricular diastolic function. Mitral annular lateral E/e': 6.9. Mitral annular septal E/e': 15.0. Wall Motion: The basal inferior segment is mildly hypokinetic. All remaining scored segments are normal. RIGHT VENTRICLE The right ventricle is normal in size. Right ventricular systolic function is normal. LEFT ATRIUM Pulmonary Veins: The pulmonary venous pattern showed blunted systolic flow. 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 There is mild thickening. The pressure half time is 61 msec. The peak mitral E/A ratio is 1.40. The average mitral E/e' ratio is 10.9. The mitral flow deceleration time is 211 msec. TRICUSPID VALVE There is trace (trace - 1+) tricuspid valve regurgitation. There is no thickening. AORTIC VALVE There is trace (trace - 1+) aortic valve regurgitation. Tricuspid aortic valve. There is moderate thickening of the right aortic cusp. PULMONIC VALVE The pulmonic valve was not seen or not interrogated. PERICARDIUM There is no pericardial effusion. There is an epicardial fat pad. CONCLUSIONS: - Exam indication: Evaluation of known heart failure to guide therapy - The left ventricle is normal in size. There is mild septal left ventricular hypertrophy. Left ventricular systolic function is normal. EF = 58 5% (2D biplane) - The right ventricle is normal in size. Right ventricular systolic function is normal. 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 - Exam was compared with the prior echocardiographic exam performed on 05/24/2024. Mitral regurgitation is severe. * * * Final * * * [employer] Image : [id number] [facility] W Auto Differential panel (Bld)on 10-03-2024 Basophils (Bld) [#/Vol]0.03 10*3/uLNINFMccullough-Hyde Memorial HospitalBasophils/100 WBC (Bld) 0.5 %[facility] Memorial HospitalDifferential cell count method Nom (Bld)AutoCleveland ClinicEosinophils (Bld) [#/Vol]0.22 10*3/uLNINFCleMorrow County HospitalEosinophils/100 WBC (Bld)3.5 %[facility]-Hyde Memorial HospitalErythrocyte distribution width (RBC) [Ratio]13.5 % 11.5 - 15.0 %[facility] Memorial HospitalHematocrit (Bld) [Volume fraction]42.2 %39.0 - 51.0 %[facility] Memorial HospitalHemoglobin (Bld) [Mass/Vol]14 g/dL13.0 - 17.0 g/dLMccullough-Hyde Memorial HospitalImmature granulocytes (Bld) [#/Vol]NINFCleveland ClinicImmature granulocytes/100 WBC (Bld)0.2 %[facility] Memorial HospitalInterpretation and review of laboratory resultsAbnormalCPremier HealthLymphocytes (Bld) [#/Vol]1.74 10*3/uL [facility] Memorial HospitalLymphocytes/100 WBC (Bld)27.8 %German HospitalH (RBC) [Entitic mass]34.1 wrLzdz63.0 - 34.[address] Vincent Medical CenterHC (RBC) [Mass/Vol]33.2 g/dL30.5 - 36.0 g/dLGerman HospitalV (RBC) [Entitic vol]102.9 kBYzhk03.0 - 100.0 fLCPremier HealthMonocytes (Bld) [#/Vol]0.85 10*3/uLNINFMccullough-Hyde Memorial Hospital Monocytes/100 WBC (Bld)13.6 %[facility] Memorial HospitalNeutrophils (Bld) [#/Vol]3.4 10*3/uLMccullough-Hyde Memorial HospitalNeutrophils/100 WBC (Bld)54.4 %[facility] Memorial HospitalNucleated RBC (Bld) [#/Vol]NINFCPremier HealthNucleated RBC/100 WBC (Bld) [Ratio]0 %/100 WBCMccullough-Hyde Memorial HospitalPlatelet mean volume (Bld) [Entitic vol]9.6 fL9.0 - 12.7 fL [facility]-Hyde Memorial HospitalPlatelets (Bld) [#/Vol]249 10*3/uLMccullough-Hyde Memorial HospitalRBC (Bld) [#/Vol]4.1 10*6/uLLow4.20 - 6.00 m/[facility] Butler HospitalWBC (Bld) [#/Vol]6.25 10*3/uLCleveland Clinic Euclid Hospital ClinicBasophils (Bld) [#/Vol]0.03 10*3/uLNormal <0.11CNewark HospitalComment on above:Order Comment: Specimen Type: BLOOD SPECIMENOrdering Facility: [facility] Address:[address], [place] [address]Performed By: #### 16006-5 ####[facility] LABCLIA [id number] [address], [place] [address] [place] AMERICABasophils/100 WBC (Bld)0.5 %NormalAdena Health System Comment on above:Order Comment: Specimen Type: BLOOD SPECIMENOrdering Facility: [facility] Address:[address] [place] [address] Performed By: #### 17590-7 ####[facility] LABCLIA [id number] [place] [address] [place] Differential cell count method Nom (Bld)AutoNormalClevelCrawley Memorial Hospital Comment on above:Order Comment: Specimen Type: BLOOD SPECIMENOrdering Facility: [facility] Address:[address] [place] [address] Performed By: #### 57943-3 ####[facility] LABCLIA [id number] [place] [address] [place] Eosinophils (Bld) [#/Vol]0.22 10*3/uLNormal<0.46A[facility] Comment on above:Order Comment: Specimen Type: BLOOD SPECIMENOrdering Facility: [facility] Address:[address] [place] [address] Performed By: #### 99304-7 ####[facility] LABCLIA [id number] [place] [address] [place] Eosinophils/100 WBC (Bld)3.5 %NormalAdena Health SystemComment on above: Order Comment: Specimen Type: BLOOD SPECIMENOrdering Facility: [facility] Address:[address] [place], [place] [address]Performed By: #### 25665- 8 ####[facility] LABCLIA [id number] [place] [address] [place] AMERICAErythrocyte distribution width (RBC) [Ratio]13.5 %Pcrvsv22.5-15.0Adena Health SystemComment on above: Order Comment: Specimen Type: BLOOD SPECIMENOrdering Facility: [facility] Address:[address] [place], [place] [address]Performed By: #### 30577- 8 ####[facility] LABIA [id number] [place] [address] [place] AMERICAHematocrit (Bld) [Volume fraction]42.2 %Ykbquo49.0-51.0[facility] on above:Order Comment: Specimen Type: BLOOD SPECIMENOrdering Facility: [facility] Address:[address] [place], [place] [address]Performed By: #### 71663- 8 ####[facility] LABIA [id number] [place] [address] [place] AMERICAHemoglobin (Bld) [Mass/Vol]14.0 g/yXKkcveb73.0-17.0[facility] on above:Order Comment: Specimen Type: BLOOD SPECIMENOrdering Facility: [facility] Address:[address] [place], [place] [address]Performed By: #### 66296-9 ####[facility] LABIA [id number] [place] [address] [place] AMERICAImmature granulocytes (Bld) [#/Vol]10*3/uLNormal<0.10[facility] on above:Order Comment: Specimen Type: BLOOD SPECIMENOrdering Facility: [facility] Address:[address] [place], [place] [address]Performed By: #### 74047- 8 ####[facility] LABIA [id number] [place] [address] [place] AMERICAImmature granulocytes/100 WBC (Bld)0.2 %NormalLima City Hospital on above:Order Comment: Specimen Type: BLOOD SPECIMENOrdering Facility: [facility] Address:[address] [place], [place] [address]Performed By: #### 80400-8 ####[facility] LABIA [id number] [place] [address] [place] AMERICALymphocytes (Bld) [#/Vol]1.74 10*3/uLNormal1.00-4.00[facility] on above:Order Comment: Specimen Type: BLOOD SPECIMENOrdering Facility: [facility] Address:[address] [place], [place] [address]Performed By: #### 73802-4 ####[facility] LABIA [id number] [place] [address] [place] AMERICALymphocytes/100 WBC (Bld)27.8 % NormalLima City Hospital on above:Order Comment: Specimen Type: BLOOD SPECIMENOrdering Facility: [facility] Address:[address] [place], [place] [address]Performed By: #### 45264-6 ####[facility] LABIA [id number] [place] [address] [place] AMERICAMCH (RBC) [Entitic mass]34.1 rzRxsw03.0-34.0[facility] on above:Order Comment: Specimen Type: BLOOD SPECIMENOrdering Facility: [facility] Address:[address] [place], [place] [address]Performed By: #### 15295-2 ####[facility] LABIA [id number] [place] [address] [place] MCHC (RBC) [Mass/Vol]33.2 g/cCVsuoat29.5-36.0[facility] on above:Order Comment: Specimen Type: BLOOD SPECIMENOrdering Facility: [facility] Address:[address] [place] [address] Performed By: #### 70252-8 ####[facility] LABIA [id number] [place] [address] [place] MCV (RBC) [Entitic vol]102.9 kBIunk45.0-100.0[facility] on above:Order Comment: Specimen Type: BLOOD SPECIMENOrdering Facility: [facility] Address:[address] [place] [address] Performed By: #### 12071-5 ####[facility] LABCLIA [id number] [place] [address] [place] Monocytes (Bld) [#/Vol]0.85 10*3/uLNormal<0.87[facility] on above:Order Comment: Specimen Type: BLOOD SPECIMENOrdering Facility: [facility] Address:[address] [place] [address] Performed By: #### 26579-7 ####[facility] LABIA [id number] [place] [address] [place] Monocytes/100 WBC (Bld)13.6 %NormalLima City Hospital on above: Order Comment: Specimen Type: BLOOD SPECIMENOrdering Facility: [facility] Address:[address] [place], [place] [address]Performed By: #### 03890- 8 ####[facility] LABIA [id number] [place] [address] [place] AMERICANeutrophils (Bld) [#/Vol]3.40 10*3/uLNormal1.45-7.50[facility] on above:Order Comment: Specimen Type: BLOOD SPECIMENOrdering Facility: [facility] Address:[address] [place], [place] [address]Performed By: #### 44750-3 ####[facility] LABCLIA [id number] [place] [id number] [place] AMERICANeutrophils/100 WBC (Bld)54.4 % NormalLima City Hospital on above:Order Comment: Specimen Type: BLOOD SPECIMENOrdering Facility: [facility] Address:[address] [place], [place] [address]Performed By: #### 58293-0 ####[facility] LABCLIA [id number] [place] [address] [place] AMERICANucleated RBC (Bld) [#/Vol]10*3/uLNormal<0.01[facility] on above:Order Comment: Specimen Type: BLOOD SPECIMENOrdering Facility: [facility] Address:[address] [place], [place] [address]Performed By: #### 58270-3 ####[facility] LABIA [id number] [place] [address] [place] Nucleated RBC/100 WBC (Bld) [Ratio]0.0 /100 WBCNormalCNewark Hospital Comment on above:Order Comment: Specimen Type: BLOOD SPECIMENOrdering Facility: [facility] Address:[address] [place] [address] Performed By: #### 85357-5 ####[facility] LABIA [id number] [place] [address] [place] Platelet mean volume (Bld) [Entitic vol]9.6 fLNormal9.0-12.7CLutheran Hospital on above:Order Comment: Specimen Type: BLOOD SPECIMENOrdering Facility: [facility] Address:[address] [place], [place] [address]Performed By: #### 92351-0 ####[facility] HOSPITALIA [id number] [place] [address] [place] Platelets (Bld) [#/Vol]249 10*3/pWWtxfhp961-792DrurzrioqLima City Hospital on above:Order Comment: Specimen Type: BLOOD SPECIMENOrdering Facility: [facility] Address:[address] [place] [address] Performed By: #### 09103-5 ####[facility] LABIA [id number] [place] [address] [place] RBC (Bld) [#/Vol]4.10 10*6/uLLow4.20-6.00[facility] on above:Order Comment: Specimen Type: BLOOD SPECIMENOrdering Facility: [facility] Address:[address] [place], [place] [address]Performed By: #### 48393-2 ####[facility] [id number] [address]ETWBC (Bld) [#/Vol]6.25 10*3/uLNormal3.70-1100[facility] on above:Order Comment: Specimen Type: BLOOD SPECIMENOrdering Facility: [facility] Address:[address] [place], [place] [address]Performed By: #### 49485-9 ####[facility] [id number] [address]ETCNOVon [id number] Visit (PARDEEPN) BRANDI DALTON ([id number]) 1940 M Date Time Provider Department 10/03/24 1:00 PM TOMY HUTTON During your visit today, we recorded the following information about you: Pulse Blood pressure Weight Height 59/minute 156/80 73.8 kg 1.651 m Tomy Hutton MD 10/04/2024 12:04 PM Signed [facility] [place] [facility] SECTION OF HEART FAILURE and CARDIAC TRANSPLANT MEDICINE OUTPATIENT VISIT DATE October 03, 2024 OUTPATIENT VISIT TYPE Consultation PRIMARY CARE PHYSICIAN: Samantha Maya [address] [place] [address] CHIEF COMPLAINT: HFpEF, AF NURSING INTAKE (Patient?s concerns and/or recent hospitalizations/ER visits): Brandi Dalton JR is a 84 year old male from [place], [place] here today for 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 Referred by Dr. Ariana Valles He has a significant medical history of CHF, HTN, Afib s/p DCCV 02/09/24, bilateral carpal tunnel, iron deficiency anemia, hypothyroid, presence of M protein He follows a regular diet and does not participates in regular exercise/activity. 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 [employer] HF Nursing Assessment: Interim Hospitalizations and/or ER visits: no Chest Pain: no Skipping or irregular heartbeats: not since DCCV Shortness of breath at rest: no Shortness of breath with activity: no Cough: yes, dry - potential allergy related Waking up in the middle of the night gasping for air: no Lightheadedness or dizziness: no Feeling like you are going to pass out: no Actually passing out: yes, many years ago (in the 70's) d/t inner ear infection Poor energy level: at times Unintentional weight gain: no Unintentional weight loss: no Swelling in your legs,feet, abdomen: no Filling up quickly when you eat: no Denies foamy/frothy urine HISTORY OF PRESENT ILLNESS: Low suspicion for cardiac amyloidosis discussed. Able to walk on flat ground. Self-propelled mower without issue. His symptoms have resolved since DCCV. PAST MEDICAL HISTORY Diagnosis Date Atrial fibrillation (HCC) Carpal tunnel syndrome Cataract OU Congestive heart failure (HCC) Dyslipidemia GI bleed Heart disease Hypertension Hypothyroidism Kidney stone Retinal tear 06/08/2000 OS PAST SURGICAL HISTORY Procedure Laterality Date 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 02/09/2024 PAST SURGICAL HISTORY OF 06/08/2000 Left eye Retinal detchement repair (laser) PAST SURGICAL HISTORY OF 06/08/1947 Tonsils PAST SURGICAL HISTORY OF 06/08/1967 Left pat Tend. PAST SURGICAL HISTORY OF 06/08/1975 Repair Left tricept tendent PAST SURGICAL HISTORY OF 06/08/2007 coloencetomy PAST SURGICAL HISTORY OF 06/08/2014 repair carpal tunnel LT PAST SURGICAL HISTORY OF repair carpal tunnel RT RENAL GUM MAKER STENT 06/2024 XCAPSL CTRC RMVL INSJ IO LENS PROSTH W/O ECP Left 06/08/2000 Cataract Extraction with PC IOL Parshour XCAPSL CTRC RMVL INSJ IO LENS PROSTH W/O ECP Right 09/07/2003 Cataract Extraction with PC IOL MARIVEL SOCIAL [...] No Known Allergies CURRENT MEDICATIONS: apixaban (ELIQUIS) 2.5 mg tab(s) Take 1 tablet by mouth two times a day. Yhvabsldlyjxc-Htsbxoih-Xndtbe (CENTRUM SILVER) tab Take 1 tablet by [...] Take by mouth. REVIEW OF SYSTEMS: CONSTITUTION: Negative for: Fever, Night sweats and Recent weight change HEENT: Positive for: Hearing loss RESPIRATORY: Positive for: Cough Negative for: Difficulty breathing GASTROINTESTINAL: Negative for: Melena, Nausea, Diarrhea, Abdominal distention and Early satiety MUSCULOSKELETAL: Positive for: Arthralgias Negative for: Myalgias NEUROLOGICAL: Negative for: Headaches and Dizziness SKIN: Negative for: Rash EYES: Negative for: Visual disturbance CARDIOVASCULAR: Negative for: Chest pain, Leg swelling, Arrhythmia and Pre-syncope (more content not included)...NormalSt. John of God HospitalOVOffice Visit (CSARMN) BRANDI DALTON ([id number]) 1940 M Date Time Provider Department 10/03/24 1:00 PM JOSE MARIA PORTER During your visit today, we recorded the following information about you: Jose Maria Porter MD 10/05/2024 2:20 PM Signed [facility] Brandi Dalton JR is a 84 year old male patient. Reason for visit: Consult, referred by Dr. Ariana Valles for possible amyloidosis. Monoclonal gammopathy. My recommendations to the consult requesting physician are communicated via the shared electronic medical record or US mail. 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 IgG kappa Related Organ or Tissue Involvement (CRAB) or other Myeloma Defining Event (MDE): None Antecedent plasma cell dyscrasia: No Myeloma FISH panel: Cytogenetics: LDH: U/L (100 - 220) ISS stage: No symptomatic myeloma, does not apply Monoclonal proteins at diagnosis: Serum M-spike: 0.86 gm/dL, Involved serum free light chains: 83.2 mg/L, and Uninvolved serum free light chains: 8.9 mg/L Total immunoglobulins at diagnosis: IgG 2086 mg/dL, IgA 51 mg/dL, IgM 27 mg/dL Bone marrow plasma cell infiltration: % Systemic treatment and disease course - Local treatments (radiation, surgery, kyphoplasty) History of present illness Mr. 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 Had developed heart failure symptoms when in atrial fibrillation. Has history of bilateral carpal tunnel syndrome. Had monoclonal protein testing as part of evaluation for amyloidosis. 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 He does not currently have symptoms of heart failure and is not in need of diuretic. PYP scan negative. NT pro BNP now normal. Review of systems General: No fever , No chills, and No night sweats HEENT: No lumps, no difficulty chewing or swallowing, no enlarging tongue, no tooth aches. Musculoskeletal: No Pain Hematological: No bleeding or easy bruising. Lymphatic / Immune system: No lymph node enlargement or infection. Cardiovascular: No orthopnea, no dyspnea, no chest pain, no leg edema, no palpitations. Pulmonary: No dyspnea, no wheezing, no cough. Gastrointestinal: No nausea, vomitting, diarrhea, constipation, abdominal pain, or blood in stool. Genitourinary: Urine output: Good, Blood in urine: no, and Urinary incontinence: none Neurological: No numbness/tingling, painful paresthesias, or weakness. Skin: No rash or pruritis. PAST MEDICAL HISTORY Diagnosis Date Atrial fibrillation (HCC) Carpal tunnel syndrome Cataract OU Congestive heart failure (HCC) Dyslipidemia GI bleed Heart disease Hypertension Hypothyroidism Kidney stone Retinal tear 06/08/2000 OS PAST SURGICAL HISTORY Procedure Laterality Date 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 02/09/2024 PAST SURGICAL HISTORY OF 06/08/2000 Left eye Retinal detchement repair (laser) PAST SURGICAL HISTORY OF 06/08/1947 Tonsils PAST SURGICAL HISTORY OF 06/08/1967 Left pat Tend. PAST SURGICAL HISTORY OF 06/08/1975 Repair Left tricept tendent PAST SURGICAL HISTORY OF 06/08/2007 coloencetomy PAST SURGICAL HISTORY OF 06/08/2014 repair carpal tunnel LT PAST SURGICAL HISTORY OF repair carpal tunnel RT RENAL GUM MAKER STENT 06/2024 XCAPSL CTRC RMVL INSJ IO LENS PROSTH W/O ECP Left 06/08/2000 Cataract Extraction with PC IOL Parshour XCAPSL CTRC RMVL INSJ IO LENS PROSTH W/O ECP Right 09/07/2003 Cataract Extraction with PC IOL MARIVEL Allergies / intolerances ALLERGIES No Known Allergies Medications apixaban (ELIQUIS) 2.5 mg tab(s) Take 1 tablet by mouth two times a day. Pzflujcvgepra-Czxhytxk-Tjkwcz (CENTRUM SILVER) tab Take 1 tablet by [...] selenium 200 mcg cap Take by mouth. Social History Tobacco Use Smoking status: Former [...] Sister Diabetes Sister Cataract Sister Cancer Sister Physical examination There were no vitals taken f (more content not included)...NormalAdena Health SystemComprehensive metabolic 2000 panelon [id number] [Mass/Vol]4.3 g/dL3.9 - 4.9 g/dLFlagler ClinicALP [Catalytic activity/Vol]85 U/L38 - 113 U/LCleveland ClinicALT [Catalytic activity/Vol]19 U/L10 - 54 U/L Flagler ClinicAnion gap [Moles/Vol]11 mmol/L8 - 15 mmol/LCleveland ClinicAST [Catalytic activity/Vol]38 U/L14 - 40 U/LCleveland ClinicBilirubin [Mass/Vol]0.4 mg/dL0.2 - 1.3 mg/dLFlagler ClinicCalcium [Mass/Vol]10 mg/dL8.5 - 10.2 mg/dL Flagler ClinicChloride [Moles/Vol]101 mmol/L98 - 107 mmol/LCleveland ClinicCO2 [Moles/Vol]28 mmol/L22 - 30 mmol/LCleveland ClinicCreatinine [Mass/Vol]1.26 mg/dLHigh0.73 - 1.22 mg/dLFlagler ClinicGFR/1.73 sq M.predicted among non- blacks MDRD (S/P/Bld) [Vol rate/Area]56 mL/min/{1.73_m2}Low- PINFCleveland ClinicComment on above:Estimated Glomerular Filtration Rate (eGFR) is calculated using the 2020 CKD-EPI creatinine equation. This equation utilizes serum creatinine, sex, and age as parameters. The creatinine assay has traceable calibration to isotope dilution-mass spectrometry. Refer to KDIGO guidelines for clinical interpretation. In patients with unstable renal function, e.g. those with acute kidney injury, the eGFRmay not accurately reflect actual GFR.Glucose [Mass/Vol]94 mg/dL74 - 99 mg/dLMccullough-Hyde Memorial HospitalComment on above:The [place] Diabetes Association (ADA) provides guidance for cutoff values for fasting glucose andrandom glucose. The ADA defines fasting as no [...] Standards of Medical Care in Diabetes 2016, [place] Diabetes Association. Diabetes Care. 2016.39(Suppl 1). Interpretation and review of laboratory resultsAbnormalCleveland ClinicPotassium [Moles/Vol]5.2 mmol/LHigh3.7 - 5.1 mmol/LClevelformerly memorial hospital [facility] ClinicProtein [Mass/Vol]8 g/dL6.3 - 8.0 g/dLCentervilleodium [Moles/Vol]140 mmol/L136 - 144 mmol/L Mccullough-Hyde Memorial HospitalUrea nitrogen [Mass/Vol]28 mg/dLHigh9 - 24 mg/dLMccullough-Hyde Memorial Hospital Albumin [Mass/Vol]4.3 g/dLNormal3.9-4.9CNewark HospitalComment on above:Order Comment: Specimen Type: BLOOD SPECIMENOrdering Facility: [facility] Address:[address] [place], [place] [address]Performed By: #### 2885-2, 69856-4, 03739-5 ####[facility] LABIA [id number][place] [address] [place] ALP [Catalytic activity/Vol]85 U/HIjluyd91-927CqpkkhljzAdena Health SystemComment on above:Order Comment: Specimen Type: BLOOD SPECIMENOrdering Facility: [facility] Address:[address] [place] [id number] Performed By: #### 2885-2, 08288-2, 85840-9 ####[facility] LABIA [id number] [place] [id number] [place] AMERICAALT [Catalytic activity/Vol]19 U/WFbdsui05-14EvthngixqAdena Health System Comment on above:Order Comment: Specimen Type: BLOOD SPECIMENOrdering Facility: [facility] Address:[address] [place] [address] Performed By: #### 2885-2, 41865-3, 50528-3 ####[facility] LABCLIA [id number] [place] [id number] [place] AMERICAAnion gap [Moles/Vol]11 mmol/LNormal8-15Adena Health SystemComment on above:Order Comment: Specimen Type: BLOOD SPECIMENOrdering Facility: [facility] Address:[address] [place] [address] Performed By: #### 2885-2, 86151-9, 44282-6 ####[facility] LABCLIA [id number] [place] [id number] [place] AMERICAAST [Catalytic activity/Vol]38 U/VGkprvj99-96AtolxowjwAdena Health System Comment on above:Order Comment: Specimen Type: BLOOD SPECIMENOrdering Facility: [facility] [facility] Address:[address] [place] [address] Performed By: #### 2885-2, 12580-1, 62667-7 ####[facility] LABIA [id number] VIL[place] [id number] [place] AMERICABilirubin [Mass/Vol]0.4 mg/dLNormal0.2-1.3CNewark [facility] Comment on above:Order Comment: Specimen Type: BLOOD SPECIMENOrdering Facility: [facility] Address:[address] [place] [address] Performed By: #### 2885-2, 71301-0, 94806-0 ####[facility] LABIA [id number] VILLE [address] [place] AMERICACalcium [Mass/Vol]10.0 mg/dLNormal8.5-10.2CNewark [facility] Comment on above:Order Comment: Specimen Type: BLOOD SPECIMENOrdering Facility: [facility] Address:[address] [place] [address] Performed By: #### 2885-2, 65086-3, 76119-6 ####[facility] LABCLIA [id number] [address] [place] AMERICAChloride [Moles/Vol]101 mmol/NJqdyjn10-584NzxasermqAdena Health System Comment on above:Order Comment: Specimen Type: BLOOD SPECIMENOrdering Facility: [facility] Address:[address] [place] [address] Performed By: #### 2885-2, 39303-1, 87766-8 ####[facility] LABIA [id number] VILLE [id number] [place] AMERICACO2 [Moles/Vol]28 mmol/MVubwpk85-25WttyvnznxAdena Health SystemComment on above:Order Comment: Specimen Type: BLOOD SPECIMENOrdering Facility: [facility] Address:[address] [place], [place] [address]Performed By: #### 2885-2, 42710-3, 97175-2 ####[facility]ITAL[facility] [id number] [address] [place] Creatinine [Mass/Vol]1.26 mg/dLHigh0.73-1.22Adena Health SystemComment on above:Order Comment: Specimen Type: BLOOD SPECIMENOrdering Facility: [facility] Address:[address] [place], [place] [address]Performed By: #### 2885-2, 00547-6, 72545-2 ####[facility] LABIA [id number] [address] [place] Creatinine and Glomerular filtration rate.predicted panel (S/P/Bld)56 mL/min/1.73m???Low>=60A[facility] Health SystemComcorewell health greenville hospital on above:Order Comment: Specimen Type: BLOOD SPECIMENOrdering Facility: [facility] Address:[address] [place], [place] [address]Result Comment: Estimated Glomerular Filtration Rate (eGFR) is calculated using the 2020 CKD-EPI creatinine equation. This equation utilizes serum creatinine, sex, and age as parameters. The creatinine assay has traceable calibration to isotope dilution-mass spectrometry. Refer to KDIGO guidelines for clinical interpretation. In patients with unstable renal function, e.g. those with acute kidney injury, the eGFR may not accurately reflect actual GFR.Performed By: #### 2885-2, 20505-3, 23320-5 ####[facility] LABIA [id number] AVENUEDESK [address] [address] [place] AMERICAGlucose [Mass/Vol]94 mg/dLNormal 74-99[facility] on above:Order Comment: Specimen Type: BLOOD SPECIMENOrdering Facility: [facility] Address:[address] [place], [place] [address]Result Comment: The [place] Diabetes Association (ADA) provides guidance for cutoff [...] Standards of Medical Care in Diabetes 2016, [place] [employer]. Diabetes Care. 2016.39(Suppl 1).Performed By: #### 2885-2, 64413-3, 38078-6 ####[facility] LABIA [id number] [address] [place] AMERICAPotassium [Moles/Vol] 5.2 mmol/LHigh3.7-5.1CLutheran Hospital on above:Order Comment: Specimen Type: BLOOD SPECIMENOrdering Facility: [facility] Address:[address] [place], [place] [address]Performed By: #### 2885-2, 92942-3, 20036-4 ####[facility] LABIA [id number] [address] [place] [facility]-FAIRHILLSodium [Moles/Vol]140 mmol/L Fdwrkm007-286ErqurtoshLima City Hospital on above:Order Comment: Specimen Type: BLOOD SPECIMENOrdering Facility: [facility] Address:[address] [place], [place] [address]Performed By: #### 2885-2, 47685-2, 47168-3 ####[facility] LABCLIA [id number] [address] [place] AMERICAUrea nitrogen [Mass/Vol]28 mg/dL High9-24[facility] on above:Order Comment: Specimen Type: BLOOD SPECIMENOrdering Facility: [facility] Address:[address] [place], [place] [address]Performed By: #### 2885-2, 19537-7, 61539-1 ####[facility] LABCLIA [id number] [address] [place] AMERICAIMMUNOGLOBULINS,IGG,IGA,IGMon 57-28-3488CnH [Mass/Vol]51 mg/dLLow70 - 400 mg/dLMccullough-Hyde Memorial HospitalIgG [Mass/Vol] 2086 mg/cTLfuo063 - 1600 mg/dLMccullough-Hyde Memorial HospitalIgM [Mass/Vol]27 mg/dLLow40 - 230 mg/dLMccullough-Hyde Memorial HospitalInterpretation and review of laboratory resultsAbnormal [facility] Health CenterIgA [Mass/Vol]51 mg/dHRvh79-747BfupkbupkLima City Hospital on above:Order Comment: Specimen Type: BLOOD SPECIMENOrdering Facility: [facility] Address:[address] [place], [place] [address]Performed By: #### SERIMM ####[facility] LABCLIA [id number] [place] [address] [place] IgG [Mass/Vol]2086 mg/mQAowk532-4799VbotibbbfLima City Hospital on above: Order Comment: Specimen Type: BLOOD SPECIMENOrdering Facility: [facility] Address:[address] [place] [id number] By: #### SERIMM ####[facility] LABCLIA [id number] [facility] F28WHJOVTALRTRACEY VILLE [id number] [place] AMERICAIgM [Mass/Vol]27 mg/iJXiy01-159 [facility] SystemComment on above:Order Comment: Specimen Type: BLOOD SPECIMENOrdering Facility: [facility] Address:[address] [place], [place] [address]Performed By: #### SERIMM ####[facility] LABCLIA [id number] [facility] BOULEVARDTESOEYEWBTA05NZCCLAZTD, [place] [address] [place] AMERICANM CARDIAC AMYLOID SPECT/CTon 65-21-0147JF CARDIAC AMYLOID SPECT/CT* * *Final Report* * * DATE OF EXAM: Oct 03 2024 10:21AM [facility] 0847 - [place] CARDIAC AMYLOID SPECT/CT / PROCEDURE REASON: Chronic diastolic heart failure (HCC) * * * * Physician Interpretation * * * * [place] CTAC Report: [facility] Date of service: 10/03/2024 9:54:29 AM CTAC interpreting physician: Nicole Arevalo MD PATIENT: Name: MR. BRANDI DALTON JR Age: 84 years Gender: M 1. Incidental Findings from limited non-diagnostic CTAC: - No distinct coronary calcifications. - Aortic valve leaflet calcifications visualized. Correlation with echocardiography suggested. Calcified hilar and paratracheal mediastinal lymph nodes. * * * Final * * * Patient: Name: MR. BRANDI DALTON JR Age: 84 years Gender: M CONCLUSIONS: 1. Not Consistent with TTR amyloidosis * Please note that a negative or mildly positive study does not exclude AL amyloid. In addition, equivocal results could represent AL amyloid or early ATTR. We suggest concomitant workup of AL amyloid with laboratory testing and pathologic assessment as appropriate. Nuclear Med Report: Ku-30m-Bpcewqwxzguej PLANAR and SPECT: Myocardial imaging of the chest with CT attenuation correction was performed at 3 hours post IV injection of Tc-99m Pyrophosphate. See administered doses below. [facility] [place] Date of service: 10/03/2024 9:54:29 AM Ordering Physician: Requesting Physician: ARIANA VALLES Indication: Suspected Amyloid Heart Disease Fellow: Barrington Rogers MD Interpreting physician: Nicole Arevalo MD Height: 165.00 cm BSA: 1.82 m? Weight: 72.12 kg BMI: 26.5 kg/m? CT Dose-Length Product(DLP): 163.0 mGy * cm. CT Dose Reduction Employed: Yes. Exam Type: Rest Study Date: 10/03/2024 Radiopharm: 99m Technetium-HDP Dosage(mCi): 20.6 Injection Time: 7:25:00 AM Atten Correction: performed Time Interval: 3.0 hours Image Quality The overall study imaging quality was deemed to be good. CARDIAC FINDINGS: PLANAR: Visual Comparison to Bone: SPECT: Uptake Pattern: Absent NON CARDIAC FINDINGS: Summary: Not Consistent with TTR amyloidosis * Please note that a negative or mildly positive study does not exclude AL amyloid. In addition, equivocal results could represent AL amyloid or early ATTR. We suggest concomitant workup of AL amyloid with laboratory testing and pathologic assessment as appropriate. * * * Final * * * RP Entertainment Manager: SADIE Transcribe Date/Time: Oct 03 2024 9:54A Dictated by : NICOLE AREVALO MD This examination was interpreted and the report reviewed and electronically signed by: NICOLE AREVALO MD on Oct 03 2024 10:48AM EST [id number] Health SystemNT PRO BNPon 10-03-2024 Natriuretic peptide.B prohormone N-Terminal [Mass/Vol]325 pg/mLNINF - 450 pg/mL [facility] Memorial HospitalNT-proBNP SerPl-mCncon 15-45-0722Poebtbkdohr peptide.B prohormone N-Terminal [Mass/Vol]325 pg/mLNormal<450[facility] Comment on above:Order Comment: Specimen Type: BLOOD SPECIMENOrdering Facility: [facility] Address:[address] [place] [address] Performed By: #### 2885-2, 96061-8, 56027-0 ####[facility] LABCLIA [id number] [place] [address] [place] AMERICANatriuretic peptide.B prohormone N-Terminal [Mass/Vol]on 10-03-2024 Interpretation and review of laboratory resultsNormalCleveland ClinicNo Panel Informationon 90-42-3963Ttxjvdjip ClinicPROTEIN ELECTROPHORESIS SERUM (P)on 82-70-8378Psngkhc [Mass/Vol]4.52 g/dLNormal3.43-5.41[facility] Comment on above:Order Comment: Specimen Type: BLOOD SPECIMENOrdering Facility: [facility] Address:[address] [place] [address] Performed By: #### [id number] ####[facility] LABCLIA [id number] [place] [address] [place] Alpha 1 globulin Elph [Mass/Vol]0.26 g/dLNormal0.18-0.43A[facility]a Health SystemComcorewell health greenville hospital on above:Order Comment: Specimen Type: BLOOD SPECIMENOrdering Facility: [facility] Address:[address] [place], [place] [address]Performed By: #### [id number] ####[facility] LABCLIA [id number] [place] [address] [place] Alpha 2 globulin Elph [Mass/Vol]0.74 g/dLNormal0.42-0.98[facility] on above:Order Comment: Specimen Type: BLOOD SPECIMENOrdering Facility: [facility] Address:[address] [place], [place] [address]Performed By: #### [id number] ####[facility] LABCLIA [id number] [place] [address] [place] Beta globulin Elph [Mass/Vol]0.71 g/dLNormal0.61-1.17[facility] Comment on above:Order Comment: Specimen Type: BLOOD SPECIMENOrdering Facility: [facility] Address:[address] [place] [address] Performed By: #### [id number] ####[facility] LABCLIA [id number] [place] [address] [place] Gamma globulin Elph [Mass/Vol]1.77 g/dLHigh0.53-1.51[facility] Comment on above:Order Comment: Specimen Type: BLOOD SPECIMENOrdering Facility: [facility] Address:[address] [place] [address] Performed By: #### [id number] ####[facility] LABCLIA [id number] [place] [address] [place] INTERPRETATION COMMENT FOR PROTEIN ELECTROPHORESISRecommend monoclonal protein analysis to further characterize the M protein.NormalAdena Health System Comment on above:Order Comment: Specimen Type: BLOOD SPECIMENOrdering Facility: [facility] Address:[address] [place] [address] Performed By: #### [id number] ####[facility] LABIA [id number] [place] [address] [place] M-PROTEIN LOCATIONGamma Fraction 1NormalAdena Health SystemComment on above:Order Comment: Specimen Type: BLOOD SPECIMENOrdering Facility: [facility] Address:[address] [place], [place] [address]Performed By: #### [id number] ####[facility] LABIA [id number] [place] [address] [place] AMERICAProtein Fractions [Interp]An M protein is identified on protein electrophoresis.AbnormalNo definitive M protein is identified on protein electrophoresis.Adena Health SystemComment on above:Order Comment: Specimen Type: BLOOD SPECIMENOrdering Facility: [facility] Address:[address] [place], [place] [address]Performed By: #### [id number] ####[facility] LABCLIA [id number] [place] [address] [place] Protein.monoclonal Elph [Mass/Vol]0.86 g/dLHigh<=0.00[facility] Comment on above:Order Comment: Specimen Type: BLOOD SPECIMENOrdering Facility: [facility] Address:[address] [place] [address] Performed By: #### [id number] ####[facility] LABCLIA [id number] [place] [id number] [place] SPE STAFF REVIEWReviewed by Mansi Kuo MDNormalCNewark Hospital Comment on above:Order Comment: Specimen Type: BLOOD SPECIMENOrdering Facility: [facility] Address:[address] [place] [address] Performed By: #### [id number] ####[facility] LABCLIA [id number] [place] [id number] [place] Prot SerPl-mCncon 12-68-2545Ujbupwh [Mass/Vol]8.0 g/dLNormal6.3-8.0Adena Health SystemComment on above:Order Comment: Specimen Type: BLOOD SPECIMENOrdering Facility: [facility] Address:[address] [place], [place] [address]Performed By: #### 2885-2, 44460-3, 33269-1 ####[facility] LABIA [id number] VILLE [id number] [place] AMERICASPECT Heart for infarct W Tc-99m PYP [place] 10-03-2024* * *Final Report* * * DATE OF EXAM: Oct 03 2024 10:21AM [facility] 0847 - [place] CARDIAC AMYLOID SPECT/CT / PROCEDURE REASON: Chronic diastolic heart failure (HCC) * * * * Physician Interpretation * * * * [place] CTA Report: [facility] Date of service: 10/03/2024 9:54:29 AM CTAC interpreting physician: Nicole Arevalo MD PATIENT: Name: MR. BRANDI DALTON JR Age: 84 years Gender: M 1. Incidental Findings from limited non-diagnostic CTAC: - No distinct coronary calcifications. - Aortic valve leaflet calcifications visualized. Correlation with echocardiography suggested. Calcified hilar and paratracheal mediastinal lymph nodes. * * * Final * * * Patient: Name: MR. BRANDI DALTON JR Age: 84 years Gender: M CONCLUSIONS: 1. Not Consistent with TTR amyloidosis * Please note that a negative or mildly positive study does not exclude AL amyloid. In addition, equivocal results could represent AL amyloid or early ATTR. We suggest concomitant workup of AL amyloid with laboratory testing and pathologic assessment as appropriate. Nuclear Med Report: Gy-45e-Ryjkhocmmpysa PLANAR and SPECT: Myocardial imaging of the chest with CT attenuation correction was performed at 3 hours post IV injection of Tc-99m Pyrophosphate. See administered doses below. [facility] [place] Date of service: 10/03/2024 9:54:29 AM Ordering Physician: Requesting Physician: ARIANA VALLES Indication: Suspected Amyloid Heart Disease Fellow: Barrington Rogers MD Interpreting physician: Nicole Arevalo MD Height: 165.00 cm BSA: 1.82 m Weight: 72.12 kg BMI: 26.5 kg/m CT Dose-Length Product(DLP): 163.0 mGy * cm. CT Dose Reduction Employed: Yes. Exam Type: Rest Study Date: 10/03/2024 Radiopharm: 99m Technetium-HDP Dosage(mCi): 20.6 Injection Time: 7:25:00 AM Atten Correction: performed Time Interval: 3.0 hours Image Quality The overall study imaging quality was deemed to be good. CARDIAC FINDINGS: PLANAR: Visual Comparison to Bone: SPECT: Uptake Pattern: Absent NON CARDIAC FINDINGS: Summary: Not Consistent with TTR amyloidosis * Please note that a negative or mildly positive study does not exclude AL amyloid. In addition, equivocal results could represent AL amyloid or early ATTR. We suggest concomitant workup of AL amyloid with laboratory testing and pathologic assessment as appropriate. * * * Final * * * RP Entertainment Manager: SADIE Transcribe Date/Time: Oct 03 2024 9:54A Dictated by : NICOLE AREVALO MD This examination was interpreted and the report reviewed and electronically signed by: NICOLE AREVALO MD on Oct 03 2024 10:48AM [facility] DIVISION OF RADIOLOGYProvider, [facility] [place] - 10/03/2024 * * *Final Report* * * DATE OF EXAM: Oct 03 2024 10:21AM [facility] 0847 - [place] CARDIAC AMYLOID SPECT/CT / PROCEDURE REASON: Chronic diastolic heart failure (HCC) * * * * Physician Interpretation * * * * [place] CTAC Report: [facility] Date of service: 10/03/2024 9:54:29 AM CTAC interpreting physician: Nicole Arevalo MD PATIENT: Name: MR. BRANDI DALTON JR Age: 84 years Gender: M 1. Incidental Findings from limited non-diagnostic CTAC: - No distinct coronary calcifications. - Aortic valve leaflet calcifications visualized. Correlation with echocardiography suggested. Calcified hilar and paratracheal mediastinal lymph nodes. * * * Final * * * Patient: Name: MR. BRANDI DALTON JR Age: 84 years Gender: M CONCLUSIONS: 1. Not Consistent with TTR amyloidosis * Please note that a negative or mildly positive study does not exclude AL amyloid. In addition, equivocal results could represent AL amyloid or early ATTR. We suggest concomitant workup of AL amyloid with laboratory testing and pathologic assessment as appropriate. Nuclear Med Report: [id number]-50e-Egwptmytdlzwm PLANAR and SPECT: Myocardial imaging of the chest with CT attenuation correction was performed at 3 hours post IV injection of Tc-99m Pyrophosphate. See administered doses below. [facility] [place] Date of service: 10/03/2024 9:54:29 AM Ordering Physician: Requesting Physician: ARIANA VALLES Indication: Suspected Amyloid Heart Disease Fellow: Barrington Rogers MD Interpreting physician: Nicole Arevalo MD Height: 165.00 cm BSA: 1.82 m Weight: 72.12 kg BMI: 26.5 kg/m CT Dose-Length Product(DLP): 163.0 mGy * cm. CT Dose Reduction Employed: Yes. Exam Type: Rest Study Date: 10/03/2024 Radiopharm: 99m Technetium-HDP Dosage(mCi): 20.6 Injection Time: 7:25:00 AM Atten Correction: performed Time Interval: 3.0 hours Image Quality The overall study imaging quality was deemed to be good. CARDIAC FINDINGS: PLANAR: Visual Comparison to Bone: SPECT: Uptake Pattern: Absent NON CARDIAC FINDINGS: Summary: Not Consistent with TTR amyloidosis * Please note that a negative or mildly positive study does not exclude AL amyloid. In addition, equivocal results could represent AL amyloid or early ATTR. We suggest concomitant workup of AL amyloid with laboratory testing and pathologic assessment as appropriate. * * * Final * * * RP Entertainment Manager: SADIE Transcribe Date/Time: Oct 03 2024 9:54A Dictated by : NICOLE AREVALO MD This examination was interpreted and the report reviewed and electronically signed by: NICOLE AREVALO MD on Oct 03 2024 10:48AM EST [facility] HospitalRadiology Study observation (narrative)[facility] Heart for infarct W Tc-99m PYP IVOrdered By: Ccf Provider on 87-76-5053Penfbsirt ClinicIMMUNOFIXATION SCREEN, SERUMOrdered By: Mansi Hammonds on 09-22-2024 Interpretation (MPA)Atypical restricted bands are present in the IgG and kappa regions. Consistent with IgG kappa monoclonal gammopathy.[facility] Interpretation and review of laboratory resultsAbnormalCleveland ClinicMPA ResultM protein is present.AbnormalNo M protein is identified.[facility] Staff Review (MPA)Reviewed by Dr. Sheree Lewis [facility] CenterMONOCLONAL PROT UR W/INTERPOrdered By: Guzman Renteria on 09-22-2024 Interpretation ([facility])Poorly defined region of restricted mobility in IgG and kappa lanes. Pattern is less well defined or fainter than typically seen in monoclonal gammopathy. This could represent either an atypical presentation of polyclonal immunoglobulins or the presence of a low level IgG kappa monoclonal gammopathy. If clinically indicated, serum monoclonal protein analysis and serum free light chain measurements are recommended to evaluate further for monoclonal gammopathy. Clinical correlation is necessary.[facility] Interpretation and review of laboratory resultsAbnoRiverview Health InstituteResult ([facility])A poorly defined region of restricted mobility is present that may represent an M protein.AbnormalNo M protein is identified.[place]ta[place] Review ([facility])Reviewed by Dr. Sheree Lewis [facility] KAPPA/COSTA,FREE,SEROrdered By: Olga Jean on 35-10-2597Xjsrwykcdemtkh light chains.kappa.free (S) [Mass/Vol]83.2 mg/LHigh3.3 - 19.4 mg/LCPremier Health Comment on above:Rarely, increased serum free light chains levels may not be detected or accurately quantified due to prozone phenomenon or in high viscosity samples using this immunoturbidimetric assay. Correlation with other laboratory results and clinical findings is recommended. The [place] Free Light Chain was performed using the Binding Site Optilite immunoturbidimetric method. Result obtained with different assay methods or kits cannot be used interchangeably. Immunoglobulin light chains.kappa/Immunoglobulin light chains.lambda (S) [Mass ratio]9.87Kveg9.26 - 1.65[facility] HospitalImmunoglobulin light chains.lambda.free [Mass/Vol]8.9 mg/L5.7 - 26.3 mg/LCPremier HealthComment on above:Rarely, increased serum free light chains levels may not be detected or accurately quantified due to prozone phenomenon or in high viscosity samples using this immunoturbidimetric assay. Correlation with other laboratory results and clinical findings is recommended. The Lambda Free Light Chain was performed using the Binding Site Optilite immunoturbidimetric method. Result obtained with different assay methods or kits cannot be used interchangeably. Interpretation and review of laboratory resultsAbCleveland Clinic Marymount HospitalNT PRO BNPon 72-14-8552Ffskybxthvv peptide.B prohormone N-Terminal [Mass/Vol]306 pg/mLNINF - 450 pg/mLClevelformerly memorial hospital of wake county ClinicNatriuretic peptide.B prohormone N-Terminal [Mass/Vol]on 95-51-3481Psdrlisgzvvjyd and review of laboratory resultsNormalClevelSelect Medical OhioHealth Rehabilitation HospitalCNOVon 12-32-2264OXQO Office Visit (CARDMN) BRANDI DALTON ([id number]) 1940 Date Time Provider Department 09/20/24 2:30 PM ARIANA VALLES CARDMN During your visit today, we recorded the following information about you: Pulse Blood pressure Weight Height 94/minute 135/78 72.1 kg 1.651 m Ariana Valles MD 09/26/2024 4:45 PM Signed [facility] [place] Awilda Prajapati Department of Cardiovascular Medicine SECTION OF CARDIAC PACING and ELECTROPHYSIOLOGY OUTPATIENT VISIT DATE September 20, 2024 OUTPATIENT VISIT TYPE ESTABLISHED PRIMARY CARE PHYSICIAN: Samantha Maya [address] [place] [address] REFERRING PHYSICIAN: No referring provider defined for this encounter. CHIEF COMPLAINT: Atrial fibrillation and consideration of Watchman HISTORY OF PRESENT ILLNESS: Mr. Dalton is a 83 year old male who presents today for follow-up visit regarding watchman placement. He was last seen in office by Dr. Qureshi 05/09/2024. His past medical history is significant for [...] at which time he was started on xarelto. He was initially asymptomatic with his AF. [...] and less SOB since his DCC. He had rectal bleeding on xarelto (previous history of GI bleeding off anticoagulant), now on eliquis 2.5 bid. His most recent echo showed a recovered EF of 56%. Tikosyn, ablation, watchman and watchful waiting were discussed. He would like to discuss watchman and ablation further. They do not believe he has had any AF since his cardioversion. He is tired and short of breath when he is out of rhythm. He denies chest pain, orthopnea, edema, palpitations, PND, lightheadedness or syncope. CHADS2-Vasc Score Breakdown 4 Total Score 2 Age >= 75 years old 1 History of CHF 1 History of hypertension PAST MEDICAL HISTORY Diagnosis Date Atrial fibrillation (HCC) Carpal tunnel syndrome Cataract OU Congestive heart failure (HCC) Dyslipidemia GI bleed Heart disease Hypertension Hypothyroidism Kidney stone Retinal tear 06/08/2000 OS PAST SURGICAL HISTORY Procedure Laterality Date 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 02/09/2024 PAST SURGICAL HISTORY OF 06/08/2000 Left eye Retinal detchement repair (laser) PAST SURGICAL HISTORY OF 06/08/1947 Tonsils PAST SURGICAL HISTORY OF 06/08/1967 Left pat Tend. PAST SURGICAL HISTORY OF 06/08/1975 Repair Left tricept tendent PAST SURGICAL HISTORY OF 06/08/2007 coloencetomy PAST SURGICAL HISTORY OF 06/08/2014 repair carpal tunnel LT PAST SURGICAL HISTORY OF repair carpal tunnel RT RENAL GUM MAKER STENT 06/2024 XCAPSL CTRC RMVL INSJ IO LENS PROSTH W/O ECP Left 06/08/2000 Cataract Extraction with PC IOL Parshour XCAPSL CTRC RMVL INSJ IO LENS PROSTH W/O ECP Right 09/07/2003 Cataract Extraction with PC IOL MARIVEL SOCIAL [...] Cancer Sister ALLERGIES: ALLERGIES No Known Allergies MEDICATIONS: apixaban (ELIQUIS) 2.5 mg tab(s) Take 1 tablet by mouth two times a day. Qjtannmyqxuke-Aamxtcpx-Teoznd (CENTRUM SILVER) tab Take 1 tablet by [...] selenium 200 mcg cap Take by mouth. Surekha Ramires RN PHYSICAL EXAMINATION: BP 135/78 Pulse 94 Ht (more content not included)...NormalGreen [facility] COMPLETEon [id number] COMPLETEVentricular Rate : 94 BPM Atrial Rate : 94 BPM P-R Interval : 236 ms QRS Duration : 108 ms Q-T Interval : 368 ms QTC Calculation(Bazett) : 460 ms Calculated P Derry : 72 degrees Calculated R Derry : 31 degrees Calculated T Derry : 0 degrees SINUS RHYTHM WITH SINUS ARRHYTHMIA WITH 1ST DEGREE AV BLOCK NONSPECIFIC ST ABNORMALITY ABNORMAL ECG Confirmed by ASAD PRESSLEY MD ([id number]) on 10/14/2024 3:58:18 PM NAME : BRANDI DALTON PID : [id number] : 1940 Gender : Male Race : ORD : [id number] Procedure Date : Sep 20 2024 13:39:53 Edit Date : Oct 14 2024 15:58:23 Diagnosis: SINUS RHYTHM WITH SINUS ARRHYTHMIA WITH 1ST DEGREE AV BLOCK NONSPECIFIC ST ABNORMALITY ABNORMAL ECG Confirmed by ASAD PRESSLEY MD ([id number]) on 10/14/2024 3:58:18 PM Test Reason : best poss Location : 314 : J14 04 Overread By : ASAD PRESSLEY MD Edited By : ASAD PRESSLEY MD Referred By : ARIANA VALLES Acquired by : Libra MITCHELLMercy Health St. Charles HospitalIMMUNOFIXATION SCREEN, SERUMon [id number] (MPA)Atypical restricted bands are present in the IgG and kappa regions. Consistent with IgG kappa monoclonal gammopathy.NormalLima City Hospital on above:Order Comment: Specimen Type: BLOOD SPECIMENOrdering Facility: [facility] Address:[address] [place], [place] [address]Performed By: #### IFESC ####[facility] LABCLIA [id number] [place] [address] [place] AMERICAMPA RESULTM protein is present. AbnormalNo M protein is identified.[facility] on above: Order Comment: Specimen Type: BLOOD SPECIMENOrdering Facility: [facility] Address:[address] [place], [place] [address]Performed By: #### IFESC ####[facility] LABIA [id number] [place] [address] [place] OF AMERICASTAFF REVIEW (MPA)Reviewed by Dr. Sheree Lewis MDGerman Hospital on above:Order Comment: Specimen Type: BLOOD SPECIMENOrdering Facility: [facility] Address:[address] [place], [place] [address]Performed By: #### IFESC ####[facility] LABCLIA [id number] [place] [address] [place] AMERICAKAPPA/COSTA,FREE,SERon 09-20-2024 Immunoglobulin light chains.kappa.free (S) [Mass/Vol]83.2 mg/LHigh3.3-19.4 [facility] on above:Order Comment: Specimen Type: BLOOD SPECIMENOrdering Facility: [facility] Address:[address] [place], [place] [address]Result Comment: Rarely, increased serum free light chains levels may not be detected or accurately quantified due to prozone phenomenon or in high viscosity samples using this immunoturbidimetric assay. Correlation with other laboratory results and clinical findings is recommended. The [place] Free Light Chain was performed using the Binding Site Optilite immunoturbidimetric method. Result obtained with different assay methods or kits cannot be used interchangeably.Performed By: #### KLFRS ####[facility] LABCLIA [id number] [address] STATES OF [facility]FAIRHILLImmunoglobulin light chains.kappa/Immunoglobulin light chains.lambda (S) [Mass ratio]9.37Uuzx1.26-1.65[facility] on above:Order Comment: Specimen Type: BLOOD SPECIMENOrdering Facility: [facility] Address:[address] [place] [address] Performed By: #### KLFRS ####[facility] HOSPITALIA [id number] [address] STATES OF [facility]FAIRHILLImmunoglobulin light chains.lambda.free [Mass/Vol]8.9 mg/LNormal5.7-26.3CLutheran Hospital on above:Order Comment: Specimen Type: BLOOD SPECIMENOrdering Facility: [facility] Address:[address] [place], [place] [address]Result Comment: Rarely, increased serum free light chains levels may not be detected or accurately quantified due to prozone phenomenon or in high viscosity samples using this immunoturbidimetric assay. Correlation with other laboratory results and clinical findings is recommended. The Lambda Free Light Chain was performed using the Binding Site Optilite immunoturbidimetric method. Result obtained with different assay methods or kits cannot be used interchangeably.Performed By: #### KLFRS ####[facility] LABIA [id number] [place] [address] [place] AMERICAMONOCLONAL PROT UR W/INTERPon [id number] (UMPA)Poorly defined region of restricted mobility in IgG and kappa lanes. Pattern is less well defined or fainter than typically seen in monoclonal gammopathy. This could represent either an atypical presentation of polyclonal immunoglobulins or the presence of a low level IgG kappa monoclonal gammopathy. If clinically indicated, serum monoclonal protein analysis and serum free light chain measurements are recommended to evaluate further for monoclonal gammopathy. Clinical correlation is necessary.NormalAdena Health System Comment on above:Order Comment: Specimen Type: URINE SPECIMENOrdering Facility: [facility] Address:[address] [place] [address] Performed By: #### URMPA ####[facility] LABIA [id number] [address] STREETSTAFF REVIEW (PA)Reviewed by Dr. Sheree Lewis MDNormalCLutheran Hospital on above:Order Comment: Specimen Type: URINE SPECIMENOrdering Facility: [facility] Address:[address] [place], [place] [address]Performed By: #### URMPA ####[facility] LABIA [id number] [address] STATES OF AMERICAUMPA RESULTA poorly defined region of restricted mobility is present that may represent an M protein. AbnormalNo M protein is identified.[facility] on above: Order Comment: Specimen Type: URINE SPECIMENOrdering Facility: [facility] Address:[address] [place], [place] [address]Performed By: #### URMPA ####[facility] LABIA [id number] [facility]ENTERK L [address] [place] [address] [place] AMERICANT-proBNP SerPl-mCncon 09-20-2024 Natriuretic peptide.B prohormone N-Terminal [Mass/Vol]306 pg/mLNormal<450 [facility] on above:Order Comment: Specimen Type: BLOOD SPECIMENOrdering Facility: [facility] Address:[address] [place], [place] [address]Performed By: #### 52383-6 ####[facility] LABIA [id number] [place] [address] [place] AMERICAPROTEIN / CREATININE RATIOon 94-94-1493Vjnatjj/Creatinine (U) [Mass ratio]0.09 mg/mgNINF - 0.15 mg/mgParkview Health on above:Adult Proteinuria Categories: <0.15 mg/mg is considered normal to mildly increased 0.15 - 0.50 mg/mg is considered moderately increased >0.50 mg/mg is considered severely increased KDIGO. (2013). KDIGO 2012 Clinical Practice Guideline for the Evaluation and Management of Chronic Kidney Disease. Official Journal of the International Society of Nephrology, 3(1), 1-150. Prot/Creat Uron 29-21-5106Oovghgb/Creatinine (U) [Mass ratio]0.09 mg/mgNormal <0.15[facility] on above:Order Comment: Specimen Type: URINE SPECIMENOrdering Facility: [facility] Address:[address] [place], [place] [address]Result Comment: Adult Proteinuria Categories: <0.15 mg/mg is considered normal to mildly increased 0.15 - 0.50 mg/mg is considered moderately increased >0.50 mg/mg is considered severely increased KDIGO. (2013). KDIGO 2012 Clinical Practice Guideline for the Evaluation and Management of Chronic Kidney Disease. Official Journal of the International Society of Nephrology, 3(1), 1-150.Performed By: #### 2890-2 ####[facility] LABCLIA [id number] [address] STATES OF [facility]FAIRHILLProtein/Creatinine (U) [Mass ratio]on 09-20-2024 Creatinine (U) [Mass/Vol]77.3 mg/dL20.0 - 300.0 mg/dLMccullough-Hyde Memorial Hospital Interpretation and review of laboratory resultsNormalCleveland ClinicProtein (U) [Mass/Vol]7 mg/dL0 - 20 mg/dLSouthwest General Health CenterCreatinine (U) [Mass/Vol]77.3 mg/ePHbwsni40.0-300.0[facility] on above: Order Comment: Specimen Type: URINE SPECIMENOrdering Facility: [facility] Address:[address] [place], [place] [address]Performed By: #### 2890-2 ####[facility] LABCLIA [id number] [facility] [id number] [address] [place] AMERICAProtein (U) [Mass/Vol]7 mg/dL Normal0-20Adena Health SystemComcorewell health greenville hospital on above:Order Comment: Specimen Type: URINE SPECIMENOrdering Facility: [facility] Address:[address] [place], [place] [address]Performed By: #### 2890-2 ####[facility] LABIA [id number] [facility] [id number] STATES OF AMERICAAmbulatory Visit Summaryon 21-64-5807Ubfabkdvhx Visit SummaryAmbulatory Visit Summary BRANDI DALTON JR :1940 Visit Date:07/07/2024 Ambulatory Visit Instructions Your Diagnosis Ureteral stone with hydronephrosis Renal lesion BPH with urinary obstruction Anticoagulated Your Care Team Attending Physician - MIKE SLADE MD Primary Care Physician - Samantha Maya MD This Is Your Medications List Contact prescribing physician if questions or concerns acetaminophen (Tylenol 8 HR Arthritis Pain 650 mg oral tablet, extended release) apixaban (Eliquis 2.5 mg oral tablet) ascorbic acid (Vitamin C) docusate (Colace 50 mg oral capsule) lisinopril (lisinopril 5 mg Tab) magnesium oxide (magnesium oxide 400 mg (240 mg elemental magnesium) oral tablet) multivitamin with minerals (Centrum Silver) oxycodone (oxyCODONE 5 mg Cap) saw palmetto (saw palmetto 450 mg oral capsule) selenium tamsulosin (Flomax 0.4 mg Cap) Procedures Performed Cystoscopic insertion of ureteric stent (06/16/2024), Cataract, Colectomy, Hemorrhage, Knee replacement, Lithotripsy, Tonsillectomy. Discharge Vitals Heart Rate (Peripheral) 59 Blood Pressure 163/88 Height 165 cm Height 65 in Weight 72.2 kg Weight 159.174 lb BMI 26.52 What to do next Scheduled Follow-Up Appointments Thursday 10:20 AM EDT With: MIKE SLADE MD Where: [facility] [address], [address] [place] [address]- You Need to Schedule the Following Appointments Follow Up with GEORGI TRUJILLO, JASNO MCKEON When: Where: Medications What How Much When Instructions Unchanged acetaminophen (Tylenol 8 HR Arthritis Pain 650 mg oral tablet, extended release) 2 Tablets By Mouth Every 8 hours Contact prescribing physician if questions or concerns Unchanged apixaban (Eliquis 2.5 mg oral tablet) 1 Tablets By Mouth 2 times a day Contact prescribing physician if questions or concerns Unchanged ascorbic acid (Vitamin C) 250 Milligram By Mouth Every day Contact prescribing physician if questions or concerns Unchanged docusate (Colace 50 mg oral capsule) 1 Capsules By Mouth 2 times a day as needed for for constipation Contact prescribing physician if questions or concerns Unchanged lisinopril (lisinopril 5 mg Tab) 1 Tablets By Mouth Every day Contact prescribing physician if questions or concerns Unchanged magnesium oxide (magnesium oxide 400 mg (240 mg elemental magnesium) oral tablet) See instructions 1 tab daily 400 mg Contact prescribing physician if questions or concerns Unchanged multivitamin with minerals (Centrum Silver) 1 Tablets By Mouth Every day Contact prescribing physician if questions or concerns Unchanged oxycodone (oxyCODONE 5 mg Cap) 1 Capsules By Mouth Every 6 hours as needed for for pain Contact prescribing physician if questions or concerns Unchanged saw palmetto (saw palmetto 450 mg oral capsule) 1 Capsules By Mouth Every day Contact prescribing physician if questions or concerns Unchanged selenium 200 Microgram By Mouth Every day Contact prescribing physician if questions or concerns Unchanged tamsulosin (Flomax 0.4 mg Cap) 1 Capsules By Mouth Every day Contact prescribing physician if questions or concerns Allergies No Known Medication Allergies Problems Ongoing - Any problem that you are currently receiving treatment for. Anticoagulated BPH with urinary obstruction Former smoker Frequent urination History of kidney stones Kidney stone Nocturia Renal lesion Ureteral stone with hydronephrosis Patient Survey You may receive a survey via text or e-mail asking about your office visit. Please share your experience with us by completing your survey. We appreciate your feedback and thank you for choosing us for your care. Education Materials Dietary Guidelines to Help Prevent Kidney Stones Kidney stones are deposits of minerals and salts that form inside your kidneys. Your risk of developing kidney stones may be greater depending on your diet, your lifestyle, the medicines you take, and whether you have certain medical conditions. Most people can lower their risks of developing kidney stones by following these dietary guidelines. Your dietitian may give you more specific instructions depending on your overall health and the type of kidney stones you tend to develop. What are tips for following this plan? Reading food labels ??? Choose foods with no salt added or low-salt labels. Limit your salt (sodium) intake to less than 1,500 mg a day. ??? Choose foods with calcium for each meal and snack. Try to eat about 300 mg of calcium at each meal.Foods that contain 200???500 mg of calcium a serving include: ? 8 oz (237 mL) of milk, ekwehsn-tcrjmqwckmbd-bbqmm milk, and calcium- fortifiedfruit juice. Calcium-fortified means that calcium has been added to these drinks. ? 8 oz (237 mL) of kefir, yogurt, and soy yog (more content not included)...[facility] [id number] From: Felicita Miranda To: JANET Loomis; Sent: 07/07/2024 11:05:34 EST Show up: 11/04/2024 12:05:00 EDT Subject: Renal US @ [facility] Due Date/Time: 12/05/2024 12:05:00 EDT Reminder Message Renal US prior to 6 month appt. [facility]. Order placed.[facility] Office/Clinic Noteon [id number] Office/Clinic NoteUrology Office/Clinic Note Chief Complaint follwo up to litho HPI Staff 83 year old male here to discuss TURP. S/P cysto, left ureteroscopy, left retrograde, left ureteralstent placement 06/16/24 pts. states that after surgery flomax dropped patients blood pressure and they stopped it. Previous Dx: Ureteral stone with hydro, Renal lesion denies any issues taking stent out at home, states he was having severe right side pain but has since subsided. History of Present Illness Tests reviewed: none. I have reviewed the previous health record information and history for this patient from Dr. Loomis I have reviewed and verified the staff HPI to be accurate for this encounter. There have been no associated fever, chills, flank pain, or blood in the urine. Denies any urinary infections since last encounter. Review of Systems PHQ Score Initial Depression Screen Score: 0 SCORE ROS - Provider Constitutional: denies weight loss, denies hot flashes. Eyes: denies eye problems. Gastrointestinal: denies nausea, denies vomiting. Cardiovascular: denies chest pain or angina. Integumentary: no dryness Musculoskeletal: denies musculoskeletal symptoms. ENMT: denies otolaryngeal symptoms. Respiratory: no shortness of breath. Heme/Lymph: denies easy bleeding tendency, denies easy bruising tendency. Psychiatric: no confusion, no anxiety. Genitourinary: See HPI. Physical Exam Vitals & Measurements HR: 59(Peripheral) BP: 163/88 HT: 65 in HT: 165 cm WT: 72.2 kg WT: 159.174 lb BMI: 26.52 General Appearance: alert, no distress, well nourished, well developed male. Assessment/Plan FEDERICO N/A Portions of this record may have been created with voice recognition artificial intelligence software, specifically [employer], [employer] and or [employer]. Substitutions may have occurred due to the inherent limitations of voice recognition and artificial intelligence software. 1. Ureteral stone with hydronephrosis (N13.2: Hydronephrosis with renal and ureteral calculous obstruction) Hx of lithotripsy years ago. Pt presented to [facility] ER 06/01/24 due to left lower quadrant abdominal pain associated with N/V. CT AP w con 06/04/24 - Acute left-sided obstructive uropathy with retained 3.5 mm size proximal left ureteral calculus causing mild to moderate upstream left hydroureteronephrosis. No other calcifications seen within the right or left kidney or ureter. Normal WBC. CMP 06/01/24 - Cr 1.61, EGFR 41. BMP 05/24/24 - Cr 1.32, eGFR 54 S/p cysto, L URS, L RPG, L stent placement 06/16/24. String stent removed at home without difficulty. Pt reports he was experiencing severe right-sided flank pain but has since subsided. Discussed scheduling CT scan however pt declines. -Fluids -Call if he wishes to proceed with CT or present to the ER -Renal US prior to 6 mos appt (see #2) 2. Renal lesion (N28.9: Disorder of kidney and ureter, unspecified) CT AP w con 06/04/24 [facility] - 2.6 cm exophytic hyperdense lesion along the lateral midpole left kidneycortex. Probable proteinaceous cyst but this requires further evaluation with renal ultrasound to confirm benign cystic nature. -Renal US prior to 6 month appt (recall placed) 3. BPH with urinary obstruction (N40.1: Benign prostatic hyperplasia with lower urinary tract symptoms) S/p cysto, L URS, L RPG, L stent placement 06/16/24 - bilobar hyperplasia of prostate, obstructive in nature with kissing lobes. Prior IPSS 8 Discussed treatment options for BPH, pt would likely benefit from TURP. Pt does not feel mgmt is necessary at this point. -Cont symptomatic monitoring -F/up in 6 mos or sooner if needed 4. Anticoagulated (Z79.01: USP (current) use of anticoagulants) Hx of CHF, [facility]. S/p successful cardioversion 02/2024. On Eliquis for atrial flutter. Patient doing well since his procedure. He is complaining of right-sided flank pain. I did discuss with him that we can get a CT abdomen pelvis with he refused at this time. He states that the pain is much better. He denies any fevers, chills, nausea or vomiting. No chest pain or shortness of breath. We discussed doing a bladder outlet reduction procedure but patient would like to hold off and hewill follow-up with me in 6 months. We will obtain a renal ultrasound to assess that concerning renal mass at that visit. Follow-up With When Contact Information EGORGI TRUJILLO, MIKE, JASON Additional Instructions: 6 mos w/ renal US (recall placed) Patient Education Dietary Guidelines to Help Prevent Kidney Stones IFelicita, personally scribed for Dr. Loomis on 07/07/2024 11:04:33. . Documentation recorded by the scribe, Felicita Miranda, accurately reflects the services(s) I performed and decisions made by me. Authenticated by Dr. Bill Tenorio on 07/07/2024 12:29:47. Problem List/Past Medical History (more content not included)...[facility]ullComment on above:Result Comment: Electronically Signed By: MIKE SLADE MD\.br\Date and Time Signed: 07/07/24 12:30 EST\.br\Electronically Co-Signed By: Felicita Miranda\.br\Date and Time Co- Signed: 07/07/24 11:05 ESTXR Urography Retrograde Lefton [id number] Urography Retrograde LeftExam Date/Time: 06/16/2024 08:45 EST Reason for Exam: Kidney stone Report IMPRESSION: INTEROPERATIVE FLUOROSCOPY. CLINICAL HISTORY: Kidney stone COMPARISON: NONE. FINDINGS: 9.05 mGy. 12 images. Marked left pelvocaliectasis with placement of left double-J ureteral stent. Please review operative note for additional details. Ordering Provider: MIKE SLADE FINAL REPORT Dictated: 06/20/2024 11:35 am Mika Bean MD Signed (Electronic Signature): 06/20/2024 11:35 am Signed by: Mika Bean MD Transcribed by: RADHA Technologist: CC Technical Comments Radiation Dose: Dannyr in mGy = 9.05 [facility] Intraoperative Recordon [id number] OR Intraoperative RecordMain OR Intraoperative Record IntraOp Document Type FT Summary Primary Physician: MIKE SLADE MD Finalized Date/Time: 06/17/24 13:50:01 Pt. Name: BRANDI DALTON JR/Sex: 1940 Male Med Rec #: [id number] Physician: MIKE SLADE MD Financial #: [id number] Pt. Type: A Room/Bed: Admit/Disch: 06/16/24 06:37:20 - 06/16/24 10:45:00 Institution: Case Times FT Entry 1 Patient Times In Room 06/16/24 08:02:00 Out Room 06/16/24 08:43:00 Procedure Times Start 06/16/24 08:20:00 Stop 06/16/24 08:39:00 Anesthesia Times Start 06/16/24 08:02:00 Stop 06/16/24 08:43:00 Last Modified By: Forest Zuleta Ii 06/16/24 08:46:49 General Comments: 06/17/24 Chart opened to review and send charges LRoth CSFA Case Attendance FT Entry 1 Entry 2 Entry 3 Case Attendee Morgan HERNANDEZ, Osmel SLADE MD, Gigi PATCHER HELPER, Payam MCKEON Role Performed CONCRETE STONE FINISHING SUPERVISOR Surgeon - Primary Scrub - Primary Time In 06/16/24 08:02:00 06/16/24 08:02:00 06/16/24 08:02:00 Time Out 06/16/24 08:43:00 06/16/24 08:43:00 06/16/24 08:43:00 Procedure CYSTOSCOPY RETROGRADE CYSTOSCOPY RETROGRADE CYSTOSCOPY RETROGRADE STENT INSERTION(Left) STENT INSERTION(Left) STENT INSERTION(Left) Comments DR. LY RABBLE FURNACE TENDER Last Modified By: Forest Zuleta Ii, Alfons Ii F Letrondo, Alfons Ii F 06/16/24 12:38:05 06/16/24 12:38:05 06/16/24 12:38:05 Entry 4 Entry 5 Case Attendee Forest Zuleta Ii RT(R), Ofelia Role Performed Cementing Machine Operator - Primary Hat Presser Time In 06/16/24 08:02:00 06/16/24 08:02:00 Time Out 06/16/24 08:43:00 06/16/24 08:43:00 Procedure CYSTOSCOPY RETROGRADE CYSTOSCOPY RETROGRADE STENT INSERTION(Left) STENT INSERTION(Left) Comments Last Modified By: Forest Zuleta Ii, Alfons Ii F 06/16/24 12:38:05 06/16/24 12:38:05 General Comments: ELIA DUMAS IS IN ATTENDANCE. /DARRIAN WADEplanner chief Protocols FT Pre-Care Text: Implements protective measures prior to operative or invasive procedure, confirms identity before the operative or invasive procedure, verifies operative procedure, surgical site, and laterality Entry 1 Procedure(s) CYSTOSCOPY W/ HOMIUM Patient Identity Birthday, ID Band LASER(Left), CYSTOSCOPY Verified (select at Check, Patient RETROGRADE STENT least 2): Participation INSERTION(Left) Consents / H and P Anesthesia Consent, Operative Site Present Verified H&P, Surgery/Procedure Marking Verified Consent Surgical Site Yes Laterality Verified Yes Verified Procedure Verified Yes Correct Patient Yes Position Verified Availability Equipment, Implant, Prep Dry No Verified (If Medication, X-ray Applicable) PreOp Antibiotic Yes Time Out Osmel Mora CRNA, Given Participants GEORGI TRUJILLO, Gigi MCKEON CST, Beau, Letrondo, Alfons Ii F, Christman RT(R), Ofelia Time Out Complete 06/16/24 08:20:00 Outcomes Met? Yes Last Modified By: Forest Zuleta Ii 06/16/24 08:37:58 Post-Care Text: The patient is free from signs and symptoms of injury caused by extraneous objects Allergy Information FT Pre-Care Text: Verifies allergies Entry 1 Allergies Reviewed? Yes Allergies Reviewed Self/Patient With Outcomes Met? Yes Last Modified By: Forest Zuleta Ii 06/16/24 08:38:36 Post-Care Text: The patient received appropriate medication(s) safely administered during the perioperative period Surgical Procedures FT Entry 1 Entry 2 Procedure Description Procedure CYSTOSCOPY W/ HOMIUM CYSTOSCOPY RETROGRADE LASER STENT INSERTION Modifiers Left Left Surgeon Description CYSTOSCOPY, LEFT CYSTOSCOPY, LEFT URETEROSCOPY, LEFT URETEROSCOPY, LEFT STENT PLACEMENT STENT PLACEMENT Primary Procedure No Yes Primary Surgeon GEORGI TRUJILLO, GEORGI TRUJILLO, MIKE MCKEON Start 06/16/24 08:20:00 06/16/24 08:20:00 Stop 06/16/24 08:39:00 06/16/24 08:39:00 Anesthesia Type General General Surgical Service Anesthesia Anesthesia Wound Class 2 - Clean-Contaminated 2 - Clean-Contaminated Last Modified By: Forest Zuleta Ii, Alfons Ii F 06/16/24 08:47:17 06/16/24 08:47:17 General Case Data FT Pre-Care Text: Classifies surgical wound, implements aseptic technique, initiates traffic control Entry 1 Case Information OR OR 1 FT Case Level Level 3 Wound Class 2 - Clean-Contaminated Specialty Urology ASA Class 3 Preop Diagnosis LEFT URETERAL STONE Postop Same As Preop Yes Postop Diagnosis LEFT URETERAL STONE Outcomes Met? Yes Last Modified By: MerlynNathanegrson Jackson 06/16/24 08:47:36 Post-Care Text: The patient is free from signs and symptoms of infection Skin Assessment (Pre Procedure) FT Pre-Care Text: Implements protective measures to prevent skin/ tissue injury due to thermal or mechanical sources Evaluates for signs and symptoms of physical injury to skin and tissue Entry 1 Skin Integrity Intact, Pin (more content not included)...[facility] Instructionson [id number] InstructionsDischarge Instructions BRANDI DALTON JR :1940 Visit Date:06/16/2024 Inpatient Discharge Instructions Your Care Team Admitting Physician - MIKE SLADE MD Referring Physician - MIKE SLADE MD Reason for Your Visit LEFT URETERAL STONE Tests Performed XR Urography Retrograde Left -- Results Pending -- Please visit your patient portal for your results or contact your primary care physician. This Is Your Medications List acetaminophen (Tylenol 8 HR Arthritis Pain 650 mg oral tablet, extended release) apixaban (Eliquis 2.5 mg oral tablet) ascorbic acid (Vitamin C) docusate (Colace 50 mg oral capsule) lisinopril (lisinopril 5 mg Tab) magnesium oxide (magnesium oxide 400 mg (240 mg elemental magnesium) oral tablet) multivitamin with minerals (Centrum Silver) oxycodone (oxyCODONE 5 mg Cap) saw palmetto (saw palmetto 450 mg oral capsule) selenium tamsulosin (Flomax 0.4 mg Cap) What to do next Instructions From Your Doctor Event Name Event Result Discharge Instructions Freetext Remove stent in 5 days, hydrate with at least 2 L/day, pain control with Tylenol and Motrin. Take oxycodone for breakthrough pain. Take Tylenol before removing stent. Stent discomfort is expected. Flomax should help with stent discomfort. Discharge Activity Ambulate as tolerated Discharge Restrictions No restrictions Discharge Diet(s) Regular Call Your Doctor For Persistent or heavy bleeding, Temperature above 101.5 degrees Discharge Instructions Discharge Instructions New Follow Up Appointments after Discharge Follow Up with MIKE SLADE When: Comments: 1-2 weeks to discuss TURP Medications What How Much When Instructions Next Dose New docusate (Colace 50 mg oral capsule) 1 Capsules By Mouth 2 times a day as needed for for constipation Pickup at [facility]/pharmacy #[id number] New oxycodone (oxyCODONE 5 mg Cap) 1 Capsules By Mouth Every 6 hours as needed for for pain Pickup at [facility]/pharmacy #[id number] New tamsulosin (Flomax 0.4 mg Cap) 1 Capsules By Mouth Every day Pickup at [facility]/pharmacy #[id number] Changed multivitamin with minerals (Centrum Silver) 1 Tablets By Mouth Every day Unchanged acetaminophen (Tylenol 8 HR Arthritis Pain 650 mg oral tablet, extended release) 2 Tablets By Mouth Every 8 hours Unchanged apixaban (Eliquis 2.5 mg oral tablet) 1 Tablets By Mouth 2 times a day Unchanged ascorbic acid (Vitamin C) 250 Milligram By Mouth Every day Unchanged lisinopril (lisinopril 5 mg Tab) 1 Tablets By Mouth Every day Unchanged magnesium oxide (magnesium oxide 400 mg (240 mg elemental magnesium) oral tablet) See instructions 1 tab daily 400 mg Unchanged saw palmetto (saw palmetto 450 mg oral capsule) 1 Capsules By Mouth Every day Unchanged selenium 200 Microgram By Mouth Every day Pharmacy Information [facility]/pharmacy #[id number]: [address], [place] [phone] Test Results No qualifying data available. Allergies No Known Medication Allergies Problems Ongoing - Any problem that you are currently receiving treatment for. Anticoagulated BPH with urinary obstruction Former smoker Frequent urination History of kidney stones Kidney stone Nocturia Renal lesion Ureteral stone with hydronephrosis Education Materials [facility] [place], [place] Dr. Kurtis Alegria Post-operative Instructions for Ureteroscopy, Laser Lithotripsy, Stone Extraction and Stent Placement There are no incisions or dressings to be concerned with, as the procedure was performed inside theurinary system. For 24 hours after surgery: ??? No driving or operating machinery ??? Do not make important decisions ??? Do not consume alcohol, sleeping pills Stent Placement You may have a stent which spans the distance between your bladder and your kidney, allowing urine to pass through. It prevents blockage from swelling, kidney stones in ureter (tube connecting the kidney to the bladder), or scars. The presence of the stent may cause: ??? Back or side pain, especially with urination ??? Frequent or urgent urination ??? Bladder pressure or pain ??? Blood in urine You may pass stone debris or small blood clots, which is expected. Drinking plenty of water to dilute the urine may help. If there is a thread coming out of urinary channel, be careful not to accidently pull on this, as it is attached to the stent. The stent will most likely be removed in the office during a short procedure in which a scope is placed into the bladder, the stent is grasped and removed. At other times the stent may need to stay longer, either in preparation for other procedures or for other reasons. If it is to remain care home, however, changes of the stent are required (about every 3-4 months). Diet You may resume your normal diet, but you may want to start slowly and av (more content not included)...[facility]ullComment on above:Result Comment: Electronically Signed By: Serafin COLMENARES, Nathalie Epps\.br\Date and Time Signed: 06/16/24 09:08 ESTInpatient Patient Summaryon [id number] Patient SummaryInpatient Patient Summary [place] [id number] [facility] Clinical Discharge Instructions PERSON INFORMATION Name: BRANDI DALTON JR PHYSICIANS Admitting Physician: MIKE SLADE MD Attending Physician: MIKE SLADE MD PCP: Samantha Maya MD Discharge Diagnosis: Comment: PATIENT EDUCATION INFORMATION Instructions: Medication Leaflets: Follow up: With: Address: When: MIKE SLADE Comments: 1-2 weeks to discuss TURP MEDICATION LIST New Medications [facility]/pharmacy #[id number], [address], [place] [phone], [phone] docusate (Colace 50 mg oral capsule) 1 Capsules By Mouth 2 times a day as needed for constipation. Refills: 0. oxycodone (oxyCODONE 5 mg Cap) 1 Capsules By Mouth every 6 hours as needed for pain. Refills: 0. tamsulosin (Flomax 0.4 mg Cap) 1 Capsules By Mouth every day. Refills: 0. Medications to Continue Taking That Have Changed Other Medications START: multivitamin with minerals (Centrum Silver) 1 Tablets By Mouth every day. Medications to Continue with No Changes Other Medications acetaminophen (Tylenol 8 HR Arthritis Pain 650 mg oral tablet, extended release) 2 Tablets By Mouthevery 8 hours. apixaban (Eliquis 2.5 mg oral tablet) 1 Tablets By Mouth 2 times a day. ascorbic acid (Vitamin C) 250 Milligram By Mouth every day. lisinopril (lisinopril 5 mg Tab) 1 Tablets By Mouth every day. magnesium oxide (magnesium oxide 400 mg (240 mg elemental magnesium) oral tablet) 1 tab daily 400 mg. saw palmetto (saw palmetto 450 mg oral capsule) 1 Capsules By Mouth every day. selenium 200 Microgram By Mouth every day. Comment:[facility] OR PACU II Recordon [id number] OR PACU II RecordMain OR PACU II Record PACU Phase II Document Type FT Summary Primary Physician: MIKE SLADE MD Finalized Date/Time: 06/16/24 11:10:23 Pt. Name: BRANDI DALTON JR./Sex: 1940 Male Med Rec #: [id number] Physician: MIKE SLADE MD Financial #: [id number] Pt. Type: A Room/Bed: [facility]/ Admit/Disch: 06/16/24 06:37:20 - Institution: Case Times PACU II FT Pre-Care Text: Identifies barriers to communication and implements measures to provide psychological support and determines knowledge level Develops individualized plan of care, and ensures continuity of care Maintains patient's dignity and privacy, and maintains patient confidentiality Identifies and reports philosophical, cultural, and spiritual beliefs and values Identifies individual values and wishes concerning care administers prescribed antibiotic therapy and immunizing agents as ordered, Evaluates postoperative tissue perfusion Implements thermoregulation measures, and monitors body temperature Evaluates postoperative respiratory statusEvaluates postoperative cardiac status Evaluates postoperative neurological status Assesses pain control, collaborated in initiating patient-controlled analgesia and implements alternative methods of pain control Verifies allergies, administers prescribed medications and solutions, evaluates response to medications Entry 1 In PACU II 06/16/24 09:15:00 Discharge from PACU 06/16/24 10:45:00 II Outcomes Met? Yes Last Modified By: Jacquelyn Sheth RN 06/16/24 11:10:22 Post-Care Text: The patient demonstrates knowledge of the expected response to the operative or invasive procedure The patient's care is consistent with the individualized perioperative plan of care The patient's rightto privacy is maintained The patient's value system, lifestyle, ethnicity, and culture are considered, respected, and incorporated into the perioperative plan of care The patient participates in decisions affecting his or her perioperative plan of care. The patient is free from signs and symptoms of infection The patient has wound/tissue perfusion consistent with or improved from baseline levels established preoperatively The patient is at or returning to normothermia at the conclusion of the immediate postoperative period The patient's respiratory function is consistent with or improved from baseline levels established preoperativelyThe patient's cardiovascular status is consistent with or improved from baseline levels established preoperatively The patient's neurological status is consistent with or improved from baseline levels established preoperatively The patient demonstrates and/or reports adequate pain control throughout the perioperative period The patient received appropriate medication(s), safely administered during the perioperativeperiod Finalized By: Jacquelyn Sheth RN Document Signatures Signed By: Jacquelyn Sheth RN 06/16/24 11:10NoFisher[facility] CenterMain OR Preoperative Recordon [id number] OR Preoperative RecordMain OR Preoperative Record PreOp Document Type FT Summary Primary Physician: MIKE SLADE MD Finalized Date/Time: 06/16/24 08:32:17 Pt. Name: BRANDI DALTON JR./Sex: 1940 Male Med Rec #: [id number] Physician: MIKE SLADE MD Financial #: [id number] Pt. Type: A Room/Bed: [facility] Admit/Disch: 06/16/24 06:37:20 - Institution: Case Times PreOp FT Pre-Care Text: Verifies consent for planned procedure, identifies individual values and wishes concerning care, includes family members in perioperative teaching Entry 1 Patient Times. In Pre Surgery 06/16/24 06:40:00 Out Pre Surgery 06/16/24 08:00:00 Outcomes Met? Yes Last Modified By: Forest Zuleta Ii 06/16/24 08:32:16 Post-Care Text: The patient participates in decisions affecting his or her perioperative plan of care Finalized By: Forest Zuleta Ii Document Signatures Signed By: Forest Zuleta Ii 06/16/24 08:32[facility]ullOperative Reporton [id number] ReportOperative Report Patient: BRANDI DALTON JR Age: 83 years Sex: Male : 1940 Associated Diagnoses: None Author: MIKE SLADE MD Procedure SURGEON: Mike Slade MD PREOPERATIVE DIAGNOSIS: Left obstructing proximal ureteral stone POSTOPERATIVE DIAGNOSIS: No obstructive stone visualized on ureteroscopy PROCEDURE: Cystoscopy, left ureteroscopy, left retrograde pyelogram, left ureteral stent placement FINDINGS: 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 He was noted to have a 3 mm proximal obstructing ureteral stone and presents today for definitive stone treatment. H&P was reviewed, informed consent was obtained, patient understood risk, benefits, alternatives of the procedure and wished to proceed. OPERATIVE DETAIL: Patient was brought to the operative suite and placed on continuous pulse oximetry and cardiac monitoring anesthesia. IV antibiotics including 2 g of Ancef was administered. He was then placed in thedorsolithotomy position and prepped and draped in normal sterile fashion. Timeout was performed confirming patient, procedure, side, all in the room agreed. A well-lubricated 22 Montserratian scopic sheath with 30 units was inserted into urethral meatus and advanced into the bladder. We noted the patient had moderate trabeculations of the bladder with multiple cellules and diverticuli along with bilobarkissing lobe hypertrophy of the prostate. We then directed attention to the left ureteral orifice which we cannulated with a Glidewire. We then passed a dual-lumen cath and a second wire into the collecting system. Then over one of the wires went up with a flexible ureteroscope into the collecting system where we did a extensive pyeloscopy and did not visualize any stone. We then came out to the renal pelvis and again visualized and did not see any stones. We then came out to the ureter and looked all the way down the ureter not visualized the stone. We then passed a dual-lumen over one of the wires and shot a retrograde pyelogram and no filling defect was noted. Then over the remaining wire we placed a 6 x 26 cm double-J ureteral stent visualizing a curl in the renal pelvis and a curl inthe bladder. Stent was left with strings on and taped to the shaft of the penis using benzoin and Steri-Strips. This concluded procedure. Patient was then awakened anesthesia and transferred to PACU in stable condition. PLAN: F/U in 1 to 2 weeks to discuss TURP, compose stent in 5 days, encouraged to hydrate. Will obtain a renal ultrasound, KUB in 6 weeks.[facility]ullComment on above:Result Comment: Electronically Signed By: MIKE SLADE MD\.br\Date and Time Signed: 06/16/24 09:02 EST Outpatient Surgery Discharge Instructionon [id number] Surgery Discharge InstructionOutpatient Surgery Discharge Instruction [place] [id number] Patient Discharge Instructions PERSON INFORMATION Name: BRANDI DALTON JR Date of : 1940 Current Date: 06/16/2024 08:52:36 PHYSICIANS Admitting Physician: MIKE SLADE MD Discharge Diagnosis: BRANDI DALTON JR has been given the following list of follow-up instructions, prescriptions, and patient education materials: PATIENT FOLLOW-UP INFORMATION Diet: Regular Discharge Activity: Ambulate as tolerated Discharge Restrictions: No restrictions Call Your Doctor For: Persistent or heavy bleeding, Temperature above 101.5 degrees Additional Instructions: Remove stent in 5 days, hydrate with at least 2 L/day, pain control with Tylenol and Motrin. Take oxycodone for breakthrough pain. Take Tylenol before removing stent. Stent discomfort is expected. Flomax should help with stent discomfort. IF UNABLE TO CONTACT YOUR PHYSICIAN AND YOU FEEL IT IS AN EMERGENCY, GO TO THE NEAREST EMERGENCY ROOM OR CALL 911 I, JOSIAH PEREZ, BRANDI Buenrostro, have received the attached patient education materials/instructions and have verbalized understanding: May we do a follow up call? Yes No I was present when discharge instructions were given Patient Signature Date Clinican/Nurse Signature Date Follow up: With: Address: When: MIKE SLADE Comments: 1-2 weeks to discuss TURP Pharmacy Information: You may receive a survey from [employer] asking you to rate your care experience. Your feedback is important and will help us understand what we do well and how we can improve the quality of care we provide to you, your loved ones and our community. It???s an honor to serve you. Thank you for choosing [facility] HERE ARE THE MEDICATION CHANGES THAT OCCURRED DURING YOUR HOSPITAL STAY New Medications [facility]/pharmacy #[id number], [address], [place] [phone], [phone] docusate (Colace 50 mg oral capsule) 1 Capsules By Mouth 2 times a day as needed for constipation. Refills: 0. oxycodone (oxyCODONE 5 mg Cap) 1 Capsules By Mouth every 6 hours as needed for pain. Refills: 0. tamsulosin (Flomax 0.4 mg Cap) 1 Capsules By Mouth every day. Refills: 0. Medications to Continue Taking That Have Changed Other Medications START: multivitamin with minerals (Centrum Silver) 1 Tablets By Mouth every day. Medications to Continue with No Changes Other Medications acetaminophen (Tylenol 8 HR Arthritis Pain 650 mg oral tablet, extended release) 2 Tablets By Mouthevery 8 hours. apixaban (Eliquis 2.5 mg oral tablet) 1 Tablets By Mouth 2 times a day. ascorbic acid (Vitamin C) 250 Milligram By Mouth every day. lisinopril (lisinopril 5 mg Tab) 1 Tablets By Mouth every day. magnesium oxide (magnesium oxide 400 mg (240 mg elemental magnesium) oral tablet) 1 tab daily 400 mg. saw palmetto (saw palmetto 450 mg oral capsule) 1 Capsules By Mouth every day. selenium 200 Microgram By Mouth every day. PATIENT EDUCATION INFORMATION Instructions: Medication Leaflets:[facility] TrumbullCNCOon [id number] TextNormalCNewark HospitalAmbulatory Visit Summaryon 06-09-2024 Ambulatory Visit SummaryAmbulatory Visit Summary BRANDI DALTON JR :1940 Visit Date:06/09/2024 Ambulatory Visit Instructions Your Diagnosis Ureteral stone with hydronephrosis Renal lesion Anticoagulated Your Care Team Attending Physician - GEORGI TRUJILLO, MIKE Primary Care Physician - Samantha Maya MD This Is Your Medications List acetaminophen (Tylenol 8 HR Arthritis Pain 650 mg oral tablet, extended release) apixaban (Eliquis 2.5 mg oral tablet) lisinopril (lisinopril 5 mg Tab) magnesium oxide (magnesium oxide 400 mg (240 mg elemental magnesium) oral tablet) multivitamin with minerals ([place] Calcium and Vitamin D) saw palmetto (saw palmetto 450 mg oral capsule) selenium Contact prescribing physician if questions or concerns ascorbic acid (Vitamin C) multivitamin with minerals (Centrum Silver) Procedures Performed Cataract, Colectomy, Hemorrhage, Knee replacement, Lithotripsy, Tonsillectomy. Discharge Vitals Heart Rate (Peripheral) 62 Blood Pressure 116/70 Height 166 cm Height 65 in Weight 70 kg Weight 154.323 lb BMI 25.4 What to do next Scheduled Follow-Up Appointments 2024 12:00 PM EST Where: [facility] 2024 9:00 AM EST Where: [facility] You Need to Schedule the Following Appointments Follow Up with GEORGI TRUJILLO, JASON MCKEON When: Where: Medications What How Much When Instructions Unchanged acetaminophen (Tylenol 8 HR Arthritis Pain 650 mg oral tablet, extended release) By MouthEvery 8 hours Unchanged apixaban (Eliquis 2.5 mg oral tablet) 1 Tablets By Mouth 2 times a day Unchanged lisinopril (lisinopril 5 mg Tab) 1 Tablets By Mouth Every day Unchanged magnesium oxide (magnesium oxide 400 mg (240 mg elemental magnesium) oral tablet) Unchanged multivitamin with minerals ([place] Calcium and Vitamin D) By Mouth 2 times a day Unchanged saw palmetto (saw palmetto 450 mg oral capsule) By Mouth 3 times a day Unchanged selenium By Mouth Every day Unchanged ascorbic acid (Vitamin C) Every day Contact prescribing physician if questions or concerns Unchanged multivitamin with minerals (Centrum Silver) By Mouth Every day Contact prescribing physician if questions or concerns Allergies No Known Medication Allergies Problems Ongoing - Any problem that you are currently receiving treatment for. Anticoagulated BPH with urinary obstruction Former smoker Frequent urination History of kidney stones Kidney stone Nocturia Renal lesion Ureteral stone with hydronephrosis Patient Survey You may receive a survey via text or e-mail asking about your office visit. Please share your experience with us by completing your survey. We appreciate your feedback and thank you for choosing us for your care. Education Materials Ureteroscopy Ureteroscopy is a procedure to check for and treat problems inside part of the urinary tract. In this procedure, a long rigid or flexible tube with a lens and light at the end (ureteroscope) is used to look at the inside of the kidneys and the ureters. The ureters are the tubes that carry urine from the kidneys to the bladder. The ureteroscope is inserted into one or both of the ureters. You may need this procedure if you have frequent urinary tract infections (UTIs), blood in your urine, or a stone in one or both of your ureters. A ureteroscopy can be done: ??? To find the cause of urine blockage in a ureter and to evaluate other abnormalities inside the ureters or kidneys. ??? To remove stones. ??? To remove or treat growths of tissue (polyps), abnormal tissue, and some types of tumors. ??? To remove a tissue sample and check it for disease under a microscope (biopsy). Tell a health care provider about: ??? Any allergies you have. ??? All medicines you are taking, including vitamins, herbs, eye drops, creams, and mnei-kab-bigyoru medicines. ??? Any problems you or family members have had with anesthetic medicines. ??? Any bleeding problems you have. ??? Any surgeries you have had. ??? Any medical conditions you have. ??? Whether you are or may be . What are the risks? Your health care provider will talk with you about risks. These may include: ??? Abdominal pain or a burning feeling or pain while urinating. ??? Abnormal bleeding. ??? A UTI. ??? Allergic reactions to medicines. ??? Scarring that narrows the ureter (stricture) or swelling. ??? Creating a hole (perforation) in the ureter. ??? Damage to other structures or organs, such as the part of your body that drains urine from your bladder (urethra), your bladder, or your uterus. What happens before the procedure? When to stop eating and drinking ??? 8 hours before your procedure ? Stop eating most foods. Do not eat meat, fried foods, or fatty f (more content not included)...NormalToledo HospitalBMPon [id number] gap [Moles/Vol]11 mmol/LNormal6-16Toledo HospitalComment on above: Performed By: #### [id number] #### [facility] [address] [place] [address] 235[address]Jdhxdax [Mass/Vol]9.8 mg/dLNormal8.9-11.1FSelect Medical Specialty Hospital - Southeast OhioComment on above:Performed By: #### [id number] #### [facility] [address], [place] [address]Rxvsxbog [Moles/Vol]101 mmol/IXasfzl407-009MlrydkToledo HospitalComment on above:Performed By: #### [id number] #### [facility] [address], [place] [address]DU2 [Moles/Vol]32 mmol/CBtcz35-14OexzieToledo Hospital Comment on above:Performed By: #### [id number] #### [facility] [address], [place] [address]Ezyfxsbvfv [Mass/Vol]1.3 mg/dLNormal0.5-1.3FSelect Medical Specialty Hospital - Southeast OhioComment on above:Performed By: #### [id number] #### [facility] [address], [place] [address]Oolzpwu [Mass/Vol]90 mg/oPZpohbz92-312WrfcisToledo HospitalComment on above:Performed By: #### [id number] #### [facility] [address], [place] [address]Slfexyoei [Moles/Vol]4.5 mmol/LNormal3.5-5.3FSelect Medical Specialty Hospital - Southeast OhioComment on above:Performed By: #### [id number] #### [facility] [address], [place] [address]Mptkzo [Moles/Vol]139 mmol/XBzhoad074-565MggywyToledo HospitalComment on above:Performed By: #### [id number] #### [facility] [address], [place] [address]Mtfy nitrogen [Mass/Vol]25 mg/dLHigh5-21Toledo HospitalComment on above:Performed By: #### [id number] #### [facility] [address], [place] [address]Kqro nitrogen/Creatinine [Mass ratio]19 No FptenHiblsy81-15 Toledo HospitalComment on above:Performed By: #### [id number] #### [facility] [address] [place] [address]CFM w/ Auto Diffon 41-78-1420Dyrpqwayd/100 WBC (Bld)0.7 %Normal 0.0-2.0Toledo HospitalComment on above:Performed By: #### [id number] #### [facility] [address], [place] [address]Ntlmzggwv/Leukocytes Auto (Bld) [Pure # fraction]0.0 E9/LNormal 0.0-0.2FSelect Medical Specialty Hospital - Southeast OhioComment on above:Performed By: #### [id number] #### [facility] [address] [place] [address]Tyiflmbjeva (Bld) [#/Vol]0.5 E9/LNormal0.0-0.5FSelect Medical Specialty Hospital - Southeast OhioComment on above:Performed By: #### [id number] #### [facility] [address] [place] [address]Bggjwskwjyv/100 WBC (Bld)7.5 %Normal0.0-8.0Toledo HospitalComment on above:Performed By: #### [id number] #### [facility] [address] [place] [address]Yjudvglqxog distribution width (RBC) [Ratio]12.8 %Normal 10.9-14.2FSelect Medical Specialty Hospital - Southeast OhioComment on above:Performed By: #### [id number] #### [facility] [address], [place] [address]Cevmczdwuq (Bld) [Volume fraction]38.3 %Yafjcc15.7-49.0Toledo HospitalComment on above:Performed By: #### [id number] #### [facility] [address], [place] [address]Peofnunint (Bld) [Mass/Vol]13.3 g/dLLow13.5-17.5FSelect Medical Specialty Hospital - Southeast OhioComment on above:Performed By: #### [id number] #### [facility] [address] [place] [address] 48[address]Gnheagaocbo (Bld) [#/Vol]1.0 E9/LNormal1.0-4.0Toledo HospitalComment on above:Performed By: #### [id number] #### [facility] [address] [place] [address]Vuacjaxguns/100 WBC (Bld)15.8 %Fbcwbr80.0-50.0Toledo HospitalComment on above:Performed By: #### [id number] #### [facility] [address] [place] [address] 21788LMM (RBC) [Entitic mass]35.9 krVkkn85.0-34.0Toledo HospitalComment on above:Performed By: #### [id number] #### [facility] [address] [place] [address]HNGX (RBC) [Mass/Vol]34.7 g/eJLvllpv43.4-36.0Toledo HospitalComment on above:Performed By: #### [id number] #### [facility] [address] [place] [address]TMI (RBC) [Entitic vol]103.4 gZHuag81.0-100.0Toledo HospitalComment on above:Performed By: #### [id number] #### [facility] [address] [place] [address]Udeecbjlc (Bld) [#/Vol]0.6 E9/LNormal0.2-1.0Toledo HospitalComment on above:Performed By: #### [id number] #### [facility] [address] [place] [address]Eeveufouqrw (Bld) [#/Vol]4.4 E9/LNormal2.0-7.5FSelect Medical Specialty Hospital - Southeast OhioComment on above:Performed By: #### [id number] #### [facility] [address], [place] [address]Rukcncnjwor/100 WBC (Bld)66.3 %Zjtedv37.0-75.0Toledo HospitalComment on above:Performed By: #### [id number] #### [facility] [address], [place] [address]Fdiotcgj049.0 E9/BXnjgjd002.0-500.0[facility] Comment on above:Performed By: #### [id number] #### [facility] [address], [place] [address]Lvxbuhcn mean volume (Bld) [Entitic vol]7.9 fLNormal6.4-10.8 Toledo HospitalComment on above:Performed By: #### [id number] #### [facility] [address], [place] [address]LZE (Bld) [#/Vol]3.7 E12/LLow4.3-5.9[facility] Comment on above:Performed By: #### [id number] #### [facility] [address] [place] [address]KBA corrected for nucl RBC Auto (Bld) [#/Vol]6.6 E9/LNormal 4.0-11.0Toledo HospitalComment on above:Performed By: #### [id number] #### [facility] [address], [place] [address]OSAAEIWSKFhlezfg By: SYSTEM SYSTEM on 82-07-3824Klxdm gap [Moles/Vol]11 mmol/LNormal6 - 16 mEq/LRemisol ChemCalcium [Mass/Vol]9.8 mg/dL Normal8.9 - 11.1 mg/dLRemisol ChemChloride [Moles/Vol]101 mmol/QZatqxx802 - 111 mmol/LRemisol ChemCO2 [Moles/Vol]32 mmol/LHigh21 - 31 mmol/LRemisol Chem Creatinine [Mass/Vol]1.3 mg/dLNormal0.5 - 1.3 mg/dLRemisol RkkqyLPR33 mL/min/1.73 m2Low>=59mL/min/1.73 q3Lkxcfmr ChemGlucose [Mass/Vol]90 mg/dLNormal 55 - 199 mg/dLRemisol ChemPotassium [Moles/Vol]4.5 mmol/LNormal3.5 - 5.3 mmol/L Remisol ChemSodium [Moles/Vol]139 mmol/EMlfhrw099 - 145 mmol/LRemisol ChemUrea nitrogen [Mass/Vol]25 mg/dLHigh5 - 21 mg/dLRemisol ChemUrea nitrogen/Creatinine [Mass ratio]19 mg/ujIninwz45 - 20Remisol ChemCOAGULATIONOrdered By: Shawanda Andujar on 47-47-5943dCOJ Coag (PPP) [Time]35.3 tUliohw87.1 - 36.5 second(s)[facility] Auto CoagComment on above:Interpretive Data: Parameter 15 days - 4 weeks 1 - 5 months 6 - 11 months 1 - 5 years 6 - 10 years 11 - 17 years PTT Mean: 35.4 (27.6-45.6) Mean: 33.5 (24.8-40.7) Mean: 32.4 (25.1-40.7) Mean: 31.6 (24.0-39.2) Mean: 31.6 (26.9-38.7) Mean: 31.0 (24.6-38.4) Pediatric Reference ranges were obtained from a study by Spensre Kilgore et al. prepared from 1437 samples obtained at 7 different centers using the same coagulation reagent and instrumentation as [facility]. Currently there are no coagulation studies available worldwide for children to 14 days, andno normal ranges. Heparin therapeutic range (represented by Anti-Factor Xa activity of 0.2 - 0.4 U/mL) corresponds to PTT of 56.6 - 109.0 sec.INR Coag (PPP) [Relative time]1.25 {INR}Invalid Interpretation CodeCOMANCHE COUNTY MEMORIAL [facility] Auto CoagComment on above:Interpretive Data: INR results are specifically intended to assess patients stabilized on long-term Anticoagulation therapy suggested INR s Less Intensive Anticoagulation 2.0 3.0 Conventional Range 3.0 4.5PT Coag (PPP) [Time]14.0 [facility]9.4 - 12.5 second(s)[facility] Auto CoagComment on above:Interpretive Data: 15 days - 4 weeks 1 - 5 months 6 -11 months 1 5 years 6 10 years 11 -17 years Mean: 11.2 (9.5 12.6) Mean: 11.0 (9.7 12.8) Mean: 11.0 (9.8 13.0) Mean: 11.3 (9.9 13.4) Mean: 11.7 (10.0 14.6) Mean: 11.8 (10.0 - 14.1) Pediatric Reference ranges were obtained from a study by Spenser Kilgore et al. prepared from 1437 samples obtained at 7 different centers using the same coagulation reagent and instrumentation as [facility]. Currently there are no coagulation studies available worldwide for children to 14 days, andno normal ranges.HEMATOLOGYOrdered By: SYSTEM SYSTEM on 68-15-6138Aqquigoow/100 WBC (Bld)0.7 %Normal0.0 - 2.0 %Remisol HemeBasophils/Leukocytes Auto (Bld) [Pure # fraction]0.0 E9/LNormal0.0 - 0.2 E9/LRemisol HemeEosinophils (Bld) [#/Vol]0.5 E9/LNormal0.0 - 0.5 E9/LRemisol HemeEosinophils/100 WBC (Bld)7.5 %Normal0.0 - 8.0 %Remisol HemeErythrocyte distribution width (RBC) [Ratio]12.8 %Mvfaok01.9 - 14.2 %Remisol HemeHematocrit (Bld) [Volume fraction]38.3 %Qykvfp45.7 - 49.0 % Remisol HemeHemoglobin (Bld) [Mass/Vol]13.3 g/dLLow13.5 - 17.5 gm/dLRemisol Heme Lymphocytes (Bld) [#/Vol]1.0 E9/LNormal1.0 - 4.0 E9/LRemisol HemeLymphocytes/100 WBC (Bld)15.8 %Kddvbj87.0 - 50.0 %Remisol HemeMCH (RBC) [Entitic mass]35.9 pg High27.0 - 34.0 pgRemisol HemeMCHC (RBC) [Mass/Vol]34.7 g/iRYfexkq64.4 - 36.0 gm/dLRemisol HemeMCV (RBC) [Entitic vol]103.4 lVIabk18.0 - 100.0 fLRemisol Heme Monocytes (Bld) [#/Vol]0.6 E9/LNormal0.2 - 1.0 E9/LRemisol HemeMonocytes/100 WBC (Bld)9.7 %Normal4.0 - 14.0 %Remisol HemeNeutrophils (Bld) [#/Vol]4.4 E9/LNormal 2.0 - 7.5 E9/LRemisol HemeNeutrophils/100 WBC (Bld)66.3 %Mvyazp59.0 - 75.0 % Remisol LbfiRmrzkxul341.0 E9/XZjrhti978.0 - 500.0 E9/LRemisol HemePlatelet mean volume (Bld) [Entitic vol]7.9 fLNormal6.4 - 10.8 fLRemisol HemeRBC (Bld) [#/Vol] 3.7 E12/LLow4.3 - 5.9 E12/LRemisol HemeWBC corrected for nucl RBC Auto (Bld) [#/Vol]6.6 E9/LNormal4.0 - 11.0 E9/LRemisol HemePT & PTTon 73-45-8716bTQI Coag (PPP) [Time]35.3 second(s)Vefgsw95.1-36.5[facility] Agnes HospitalComment on above:Result Comment: Parameter 15 days - 4 weeks 1 - 5 months 6 - 11 months 1 - 5 years 6 - 10 years 11 - 17 years PTT Mean: 35.4 (27.6-45.6) Mean: 33.5 (24.8-40.7) Mean: 32.4 (25.1-40.7) Mean: 31.6 (24.0-39.2) Mean: 31.6 (26.9-38.7) Mean: 31.0 (24.6-38.4) Pediatric Reference ranges were obtained from a study by Spenser Kilgore et al. prepared from 1437 samples obtained at 7 different centers using the same coagulation reagent and instrumentation as [facility]. Currently there are no coagulation studies available worldwide for children to 14 days, andno normal ranges. Heparin therapeutic range (represented by Anti-Factor Xa activity of 0.2 - 0.4 U/mL) corresponds to PTT of 56.6 - 109.0 sec.Performed By: #### [id number] ####[facility] [address] [place], [place] [address]WUZ Coag (PPP) [Relative time]1.25 {INR}Invalid Interpretation CodeToledo HospitalComment on above:Result Comment: INR results are specifically intended to assess patients stabilized on long-term Anticoagulation therapy suggested INR???s ???Less Intensive Anticoagulation??? 2.0 ??? 3.0 Conventional Range 3.0 ??? 4.5Performed By: #### [id number] ####[id number] [place], [place] [address]YK Coag (PPP) [Time] 14.0 second(s)High9.4-12.5[facility] St. Agnes HospitalComment on above:Result Comment: 15 days - 4 weeks 1 - 5 months 6 -11 months 1 ??? 5 years 6 ??? 10 years 11 -17 years Mean: 11.2 (9.5 ??? 12.6) Mean: 11.0 (9.7 ??? 12.8) Mean: 11.0 (9.8 ??? 13.0) Mean: 11.3 (9.9 ??? 13.4) Mean: 11.7 (10.0 ??? 14.6) Mean: 11.8 (10.0 - 14.1) Pediatric Reference ranges were obtained from a study by Spenser Kilgore et al. prepared from 1437 samples obtained at 7 different centers using the same coagulation reagent and instrumentation as [facility]. Currently there are no coagulation studies available worldwide for children to 14 days, andno normal ranges.Performed By: #### [id number] ####[facility] [address] [place], [place] [address]XP with Cult Rflxon 06-09-2024 Bilirubin Ql (U)NegativeNormalNegativeToledo HospitalComment on above:Performed By: #### [id number] #### [facility] [address], [place] [address]Eeofzmu (U)ClearNormalClearToledo HospitalComment on above:Performed By: #### [id number] #### [facility] [address], [place] [address]Ssbzz (U)Light-YellowNormalYellowToledo Hospital Comment on above:Result Comment: Microscopic readings are only performed on those samples that meet specific criteria set forth by [facility].Performed By: #### [id number] #### [facility] [address], [place] [address]Zyowjit Ql (U)NegativeNormalNegMercy Health West Hospital Comment on above:Performed By: #### [id number] #### [facility] [address], [place] [address]Ffynjvtpaa Auto test strip (U) [Mass/Vol]NegativeNormalNegative Toledo HospitalComment on above:Performed By: #### [id number] #### [facility] [address], [place] [address]Onyiqca Auto test strip Ql (U)NegativeNormalNegativeToledo HospitalComment on above:Performed By: #### [id number] #### [facility] [address], [place] [address]Xzsimppvf esterase Auto test strip Ql (U)NegativeNormalNegative [facility]edo HospitalComment on above:Performed By: #### [id number] #### [facility] [address], [place] [address]Xuslwqy Auto test strip Ql (U)NegativeNormalNegativeToledo HospitalComment on above:Performed By: #### [id number] #### [facility] [address], [place] [address]bD (U)5.5 [pH]Invalid Interpretation Code5.0-9.0Toledo HospitalComment on above:Performed By: #### [id number] #### [facility] [address], [place] [address]Gqvzbnu Ql (U)NegativeNormalNegativeToledo Hospital Comment on above:Performed By: #### [id number] #### [facility] [address], [place] [address]Axgfgzsb gravity (U) [Rel density]1.012Invalid Interpretation Code1.005-1.030T[facility]edo HospitalComment on above:Performed By: #### [id number] #### [facility] [address], [place] [address]Pbrnqncvcauq (U) [Mass/Vol]NegativeNormalNegMercy Health West HospitalComment on above:Performed By: #### [id number] #### [facility] [address] [place] [address]Fycj of Urine collection methodClean CatchSelect Medical Specialty Hospital - TrumbullComment on above:Performed By: #### [id number] #### [facility] [address], [place] [address]JEJZOVMCVOQdgybrh By: SYSTEM SYSTEM on 71-23-4123Oenvbslin Ql (U)NegativeNormalNegativemg/dLFT UA Auto SSClarity (U)Clear (06/09/24 12:42 PM)NormalClearFOK [facility] [place] UA Auto SSColor (U)Light-Yellow 1 (06/09/24 12:42 PM)NormalYellowCOMANCHE COUNTY [facility] UA Auto SSComment on above:Interpretive Data: Microscopic readings are only performed on those samples that meet specific criteria set forth by [facility].Glucose Ql (U) NegativeNormalNegativemg/dLFT UA Auto SSHemoglobin Auto test strip (U) [Mass/Vol]NegativeNormalNegativemg/dLFT UA Auto SSKetones Auto test strip Ql (U)NegativeNormalNegativemg/dLFT UA Auto SSLeukocyte esterase Auto test strip Ql (U)NegativeNormalNegativeLeu/uLFT UA Auto SSNitrite Auto test strip Ql (U) NegativeNormalNegativemg/dLCOMANCHE [facility] UA Auto SSpH (U)5.5 *NA* (06/09/24 12:42 PM)Invalid Interpretation Code5.0 - 9.0[facility] UA Auto SSProtein Ql (U)NegativeNormalNegativemg/dLCOMANCHE COUNTY [facility]ORIAL [facility]OS[facility] UA Auto SSSpecific gravity (U) [Rel density] 1.012 *NA* (06/09/24 12:42 PM)Invalid Interpretation Code1.005 - 1.030[facility] UA Auto SS Urobilinogen (U) [Mass/Vol]NegativeNormalNegativemg/dLCOMANCHE COUNTY [facility]ORIAL [facility] [place] UA Auto SSURINALYSIS Ordered By: Jacquelyn Sheth on 36-55-8379XE Spec DescClean Catch (06/09/24 12:42 PM)NormalCOMANCHE COUNTY [facility] UA Auto SSUrology Office/Clinic Noteon 06-09-2024 Urology Office/Clinic NoteUrology Office/Clinic Note Chief Complaint er f/u HPI Staff 83 yr male here for [facility] ED f/u for kidney stones. No records in [facility]. Previous dx of BPH with urinary obstruction, kidney stone, nocturia, frequency and former smoker. recent PSA- 0.40. Previous PSA done 12/29/2019 was 0.31, 12/27/2018 was 0.32. Dysuria: _no Incomplete bladder emptying: _yes Hematuria: _no Frequency: _q2-3 hrs Urgency: _no Nocturia: _2x Stream: _weak Leaking: _no Post void dripping: _no Wearing pads/ Depends: _no Urge incontinence: _no Stress incontinence: _no Incontinence without Sensory Awareness: _no Abdominal pain: _no Flank pain: _no Sexual complaints: _ History of Present Illness Tests reviewed: reviewed UA, PSA, labs, CT, ER records, external records. I have reviewed the previous health record information and history for this patient from external provider and Dr. Arriaza. I have reviewed and verified the staff HPI to be accurate for this encounter. There have been no associated fever, chills, flank pain, or blood in the urine. Denies any urinary infections since last encounter. Review of Systems PHQ Score Initial Depression Screen Score: 0 SCORE ROS - Provider Constitutional: denies weight loss, denies hot flashes. Eyes: denies eye problems. Gastrointestinal: denies nausea, denies vomiting. Cardiovascular: denies chest pain or angina. Integumentary: no dryness Musculoskeletal: denies musculoskeletal symptoms. ENMT: denies otolaryngeal symptoms. Respiratory: no shortness of breath. Heme/Lymph: denies easy bleeding tendency, denies easy bruising tendency. Psychiatric: no confusion, no anxiety. Genitourinary: See HPI. Physical Exam Vitals & Measurements HR: 62(Peripheral) BP: 116/70 HT: 65 in HT: 166 cm WT: 70 kg WT: 154.323 lb BMI: 25.4 General Appearance: alert, no distress, well nourished, well developed male. Head: normocephalic . Eyes: normal orbit and globe. ENMT: normal examination of external ears. Psychiatric: cooperative, affect appropriate for age, normal judgement, euthymic mood. Assessment/Plan Last seen in office by Dr. Arriaza 02/28/20. Pt accompanied by today. PSA 12/13/14 - 0.55 12/17/15 - 0.40 12/18/16 - 0.34 12/21/17 - 0.39 12/27/18 - 0.32 12/29/19 - 0.31 01/31/21 - 0.31 02/14/22 - 0.34 10/02/23 - 0.40 IPSS 8 FEDER[place] N/A Portions of this record may have been created with voice recognition artificial intelligence software, specifically [employer], [employer] and or [employer]. Substitutions may have occurred due to the inherent limitations of voice recognition and artificial intelligence software. 1. Ureteral stone with hydronephrosis (N13.2: Hydronephrosis with renal and ureteral calculous obstruction) Hx of lithotripsy years ago. Pt presented to [facility] ER 06/01/24 due to left lower quadrant abdominal pain associated with N/V. CT AP w con 06/04/24 - Acute left-sided obstructive uropathy with retained 3.5 mm size proximal left ureteral calculus causing mild to moderate upstream left hydroureteronephrosis. No other calcifications seen within the right or left kidney or ureter. Normal WBC. CMP 06/01/24 - Cr 1.61, EGFR 41. BMP 05/24/24 - Cr 1.32, eGFR 54 UA today negative for blood or infection. Denies gross hematuria. Experiencing mild chills. Unsure if he has passed the stone. No longer experiencing pain. Discussed management options including medical expulsive therapy x 4-6 week vs intervention including extracorporeal shockwave lithotripsy vs ureteroscopy with laser lithotripsy/stone basket extraction possible stent. Risks/benefits of each were discussed including but not limited to: MET- renal damage, pain or infection; ESWL- bleeding, hematoma, pain, infection, inability to break up the stone,ureteral obstruction, cardiac arrhythmias, damage to surrounding structures and need for additionalprocedures; ureteroscopy - bleeding, pain, infection, damage to surrounding structures, ureteral perforation, stricture, inability to treat the stone and need for additional procedures. If a stent is placed, pt understands this is not permanent and needs to be removed or exchanged within 3 months to prevent encrustation, infection, permanent renal damage and need for more invasive procedures. Pt wishes to proceed with operative intervention. -Will schedule cysto, L RPG, L URS, laser litho, L stent placement under general anes. Risks above 2. Renal lesion (N28.9: Disorder of kidney and ureter, unspecified) CT AP w con 06/04/24 [facility] - 2.6 cm exophytic hyperdense lesion along the lateral midpole left kidneycortex. Probable proteinaceous cyst but this requires further evaluation with renal ultrasound to confirm benign cystic nature. -Will check renal US post op for stone -Discuss renal US results at f/up 3. 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 S/p successfu (more content not included)...[facility] - TrumbullComment on above:Result Comment: Electronically Signed By: MIKE SLADE MD\.br\Date and Time Signed: 06/09/24 10:26 EST\.br\Electronically Co-Signed By: Felicita Miranda\.br\Date and Time Co-Signed: 06/09/24 10:20 EST\.br\Electronically Co-Signed By: Felicita Miranda\.br\Date and Time Co-Signed:06/09/24 10:22 ESTXR Chest 2 Viewson [id number] Chest 2 ViewsExam Date/Time: 06/09/2024 12:53 EST Reason for Exam: P.A.T. Report IMPRESSION: NO RADIOGRAPHIC EVIDENCE OF ACTIVE DISEASE IN THE CHEST. MARKED BILATERAL DEGENERATIVE CHANGE OF SHOULDERS, GREATER ON RIGHT. FLATTENING OF RIGHT HUMERAL HEAD IS DISCUSSED MAY REPRESENT COMPONENT OF OSTEONECROSIS. CLINICAL CORRELATION SUGGESTED. BILATERAL ROTATOR CUFF INSUFFICIENCY. CLINICAL INFORMATION: P.A.T. COMPARISON: None available. FINDINGS: 2 views. Narrowing of bilateral glenohumeral joints, greater on right. Subchondral cyst formation bilateral humeral heads, greater on right. Increased sclerosis articular surfaces of the humeral joint, greater on right. Flattening of portion of right humeral head. Bilateral narrowing of acromial humeral intervals. Narrowing right acromioclavicular joint.. Cardiopericardial silhouette normal. Aorta calcified and tortuous. Pulmonary vasculature normal. Lungs clear. Ordering Provider: Jaison Little FINAL REPORT Dictated: 06/09/2024 1:15 pm Mika Bean MD Signed (Electronic Signature): 06/09/2024 1:15 pm Signed by: Mika Bean MD Transcribed by: DP Technologist: DPR Technical Comments Radiation Dose: Ka,r in mGy = na DAP = naNormalToledo HospitaleGFRon 65-30-1051sVLP82 mL/min/1.73 m2 Low>=59Toledo HospitalComment on above:Performed By: #### [id number] #### [facility] [address], [place] [address]Nmrzj metabolic 2000 panelon 64-07-5202Yczyx gap [Moles/Vol]13 mmol/LNormal8-15[facility] SystemComcorewell health [facility] hospital on above:Order Comment: Specimen Type: BLOOD SPECIMENOrdering Facility: [facility] Address:[address], [place] [address]Performed By: #### [id number], 14103-5 ####[facility] LABCLIA [id number] [address] [address] [place] OF AMERICACalcium [Mass/Vol]10.2 mg/dL Normal8.5-10.2CNewark HospitalComcorewell health greenville hospital on above:Order Comment: Specimen Type: BLOOD SPECIMENOrdering Facility: [facility] Address:[address] [place], [place] [address]Performed By: #### [id number], 69464-1 ####[facility] LABCLIA [id number] [place] [address] [place] OF AMERICAChloride [Moles/Vol]101 mmol/L Qqoawz66-610GopllpwnoLima City Hospital on above:Order Comment: Specimen Type: BLOOD SPECIMENOrdering Facility: [facility] Address:[address] [place], [place] [address]Performed By: #### [id number], 72108-7 ####[facility] LABCLIA [id number] [place] [address] [place] AMERICACO2 [Moles/Vol]25 mmol/QTrpvrn27-08IrtcfqqwsLima City Hospital on above:Order Comment: Specimen Type: BLOOD SPECIMENOrdering Facility: [facility] Address:[address] [place], [place] [address]Performed By: #### 04199-6, 45064-1 ####[facility] LABCLIA [id number] [place] [address] [place] OF AMERICACreatinine [Mass/Vol]1.32 mg/dLHigh0.73-1.22[facility] on above:Order Comment: Specimen Type: BLOOD SPECIMENOrdering Facility: [facility] Address:[address] [place], [place] [address]Performed By: #### 95814-4, 68109-2 ####[facility] LABIA [id number] [place] [address] [place] OF AMERICACreatinine and Glomerular filtration rate.predicted panel (S/P/Bld)54 mL/min/1.73m???Low>=60[facility] on above:Order Comment: Specimen Type: BLOOD SPECIMENOrdering Facility: [facility] Address:[address] [place], [place] [address]Result Comment: Estimated Glomerular Filtration Rate (eGFR) is calculated using the 2020 CKD-EPI creatinine equation. This equation utilizes serum creatinine, sex, and age as parameters. The creatinine assay has traceable calibration to isotope dilution-mass spectrometry. Refer to KDIGO guidelines for clinical interpretation. In patients with unstable renal function, e.g. those with acute kidney injury, the eGFR may not accurately reflect actual GFR.Performed By: #### 99267-1, 01043-9 ####[facility] LABIA [id number] [place] [address] [place] OF AMERICAGlucose [Mass/Vol]100 mg/dLHigh 74-99[facility] on above:Order Comment: Specimen Type: BLOOD SPECIMENOrdering Facility: [facility] Address:[address] [place], [place] [address]Result Comment: The [place] Diabetes Association (ADA) provides guidance for cutoff [...] Standards of Medical Care in Diabetes 2016, [place] Diabetes Association. Diabetes Care. 2016.39(Suppl 1).Performed By: #### 42982-0, 96429-6 ####[facility] LABIA [id number] [place] [address] [place] OF AMERICAPotassium [Moles/Vol]4.7 mmol/L Normal3.7-5.1CLutheran Hospital on above:Order Comment: Specimen Type: BLOOD SPECIMENOrdering Facility: [facility] Address:[address], [place] [address]Performed By: #### 45679-0, 03717-9 ####[facility] LABIA [id number] [place] [address] [place] OF AMERICASodium [Moles/Vol]139 mmol/GUjqvvx941-512JbubpsppkLima City Hospital on above:Order Comment: Specimen Type: BLOOD SPECIMENOrdering Facility: [facility] Address:[address] [place], [place] [address]Performed By: #### 16836-3, 84213-6 ####[facility] LABCLIA [id number] [place] [address] [place] AMERICAUrea nitrogen [Mass/Vol]33 mg/dLHigh9-24[facility] on above:Order Comment: Specimen Type: BLOOD SPECIMENOrdering Facility: [facility] Address:[address] [place], [place] [address]Performed By: #### 69791-1, 84825-9 ####[facility] LABCLIA [id number] [place] [address] [place] OF AMERICACNOVon 70-08-9164HSBRIwyvxf Visit (CARD CHF RHONA) BRANDI DALTON ([id number]) 1940 M Date Time Provider Department 05/24/24 10:15 AM KENDRA MENDOZA CARD CHF RHONA During your visit today, we recorded the following information about you: Pulse Respiration Blood pressure Weight 60/minute 15/minute 165/79 70.3 kg Height 1.651 m Kendra Mendoza MD 05/24/2024 5:30 PM Signed [facility] [place] [facility] SECTION OF HEART FAILURE and CARDIAC TRANSPLANT MEDICINE OUTPATIENT VISIT DATE May 24, 2024 OUTPATIENT VISIT TYPE Established Patient PRIMARY CARE PHYSICIAN: Samantha Maya [address] [place] [address] CHIEF COMPLAINT: HF f/u NURSING INTAKE (Patient?s [...] Take 5 mg by mouth once daily. Urrflfokemiyr-Odjaxwzo-Xlvylh (CENTRUM SILVER) tab Take 1 tablet by [...] lb 8 oz) SpO2 (more content not included)...NormalFort [facility]24 EchocardiographyEchocardiography Report: Transthoracic Echo [facility] J35 Date of service: 05/24/2024 8:08:07 AM Ordering physician: KENDRA MENDOZA Indication: S/P Cardioversion Technologist: Archie Becerril Interpreting physician: Tomy Diaz MD PATIENT: Name: MR. BRANDI DALTON [...] The posterior wall and mid inferior segment aremildly hypokinetic. All remaining scored segments are normal. [...] * * * Final * * * [employer] [facility] Image : [id number]z [facility] SystemNT-proBNP SerPl-mCncon 25-45-9898Uzmyrdrhpzl peptide.B prohormone N-Terminal [Mass/Vol]338 pg/mLNormal<450[facility] Comment on above:Order Comment: Specimen Type: BLOOD SPECIMENOrdering Facility: [facility] Address:[address] [place] [address] Performed By: #### 80359-7, 94002-6 ####[facility] LABCLIA [id number] [facility] CENTERDESK [place]99[place] [address] [place]AR[place] CNCOon 67-73-9219ZIJPUlumxh TextNormalCNewark HospitalCNPNon 73-70-8383XOZLKakhwxkbh (CARDMN) BRANDI DALTON ([id number]) 1940 M Date Time Provider Department 05/10/24 RD QURESHI CARDNAYANA During your visit today, we recorded the following information about you: Georgia Cannon 05/10/2024 10:41 AM Signed May 10, 2024 Patient Contact Number: [phone] (home) [phone] (work) [phone] (cell) Patient last seen within the last [...] process for scheduling. Thank you, Georgia Cannon, Ian Stuart RN 05/16/2024 5:14 PM Signed Patient will need to meet with physician who preforms Watchman (Dr Qureshi placed [...] by mouth two times a day. - Neytpjqsanymh-Gzcpqcik-Pvihqd (CENTRUM SILVER) tab Take 1 tablet by [...] (None) Encounter Status:Closed by IAN HOGUE on 05/16/24[facility] 68-46-8024TWTOWwyhdv Visit (CARD [facility] RHONA) BRANDI DALTON ([id number]) 1940 M Date Time Provider Department 03/18/24 10:00 AM COMPA CORCORAN [facility] RHONA During your visit today, we recorded the following information about you: Pulse Blood pressure Weight Height 69/minute 147/86 70.9 kg 1.651 m Compa Corcoran APRN.CABLE DISPATCHER 03/18/2024 4:06 PM [facility] [place] [facility] SECTION OF HEART FAILURE and CARDIAC TRANSPLANT MEDICINE OUTPATIENT VISIT DATE 03/18/2024 PRIMARY CARE PHYSICIAN: Samantha Maya [address] [place] [address] PRIMARY HEART FAILURE CERTIFIED PEST CONTROL TECHNICIAN: Dr. Mendoza CHIEF COMPLAINT: Follow-up HISTORY OF [...] Take 40 mg by mouth once daily. Hlirwdxrchpaa-Nkcrpurd-Shtdhx (CENTRUM SILVER) tab Take 1 tablet by [...] No gallop. No Rub. (more content not included)...NormalGreen Cross Hospital COMPLETEon 07-22-3190ACH COMPLETEVentricular Rate : 79 BPM Atrial Rate : 71 BPM P-R Interval : 212 ms QRS Duration : 116 ms Q-T Interval : 394 ms QTC Calculation(Bazett) : 451 ms Calculated P Derry : 86 degrees Calculated R Derry : 60 degrees Calculated T Derry : 1 degrees SINUS RHYTHM WITH 1ST DEGREE AV BLOCK WITH PREMATURE VENTRICULAR COMPLEXES NONSPECIFIC ST ABNORMALITY ABNORMAL ECG Reconfirmed by CHANDRIKA NEVAREZ MD ([id number]) on 04/13/2024 4:08:20 PM NAME : BRANDI DALTON PID : [id number] : 1940 Gender : Male Race : ORD : [id number] Procedure Date : Mar 18 2024 08:33:32 Edit Date : Apr 13 2024 16:08:24 Diagnosis: SINUS RHYTHM WITH 1ST DEGREE AV BLOCK WITH PREMATURE VENTRICULAR COMPLEXES NONSPECIFIC ST ABNORMALITY ABNORMAL ECG Reconfirmed by CHANDRIKA NEVAREZ MD ([id number]) on 04/13/2024 4:08:20 PM Test Reason : Location : 314 : 14 Overread By : CHANDRIKA NEVAREZ MD Edited By : CHANDRIKA NEVAREZ MD Referred By : ARSEN TALAVERA Acquired by : Randy MURPHYUniversity Hospitals St. [facility] Medical [facility] TRANSESOPHAGEAL on 72-66-7008YWUEOWOSVZX: - Exam indication: Pre Cardioversion, Pre AF [...] comparison. * * * Final * * *[facility] Echocardiography Report: Transesophageal Echo [facility] J1-5 Date of service: 02/09/2024 1:23:25 PM CAST SUPERVISOR Ordering physician: KENDRA MENDOZA Indication: Pre [...] evidence of intracardiac shunting. HEART AND VASCULAR INSTITUTEMccullough-Hyde Memorial HospitalECG [address] [place] 85-82-7808MOX revealed atrial fibrillation with RVR, diffuse ST and T changesCPSelect Medical Specialty [facility] Work Phone: Office Visit (Cardiology)on 70-57-5501Uucjjb-up visit Diagnoses/Problems Assessed Persistent atrial fibrillation with [...] Reassurances were provided for the time being. Assessment/recommendations: 1?persistent atrial fibrillation with controlled rate. Managed [...] every 2 to 3 years. Reassurances wereprovided 3?hypertension, currently under control, no changes are [...] 500 MG CAPSTAKE 1 CAPSULE Daily Saw [place] 450 MG Oral CapsuleTAKE DIRECTED. Selenium 200 [...] Vital Signs Recorded: 01Dec2022 01:03PMRecorded: 01Dec2022 12:48PM Pixnldcm60238, RUE, Sitting Jilklxbgp3661, RUE, Sitting Heart Rate76, L Radial Height5 ft 6 in Hkrsnf739 lb BMI Rhnbwendna24.41 kg/m2 BSA Calculated1.89 Tobacco Useb) No Falls Screening (Age 18+)a) No falls within the (more content not included)... NormalUH TouchworksTobacco Screening.on 86-92-9694Oksn risk assessmenta) No falls within the last vqgaEY-Hiatsqqezb-Mtdygoov 250 DO Work Phone: Tobacco use status CPHSb) JzUU-Kyfyouakmc-Rbhbcljv 250 DO Work Phone: [facility] echo transesophageal TEEon 47-07-2371RQN echo transesophageal [facility]INDR[facility] Main [place] [address] [place] [address] Echocardiogram Signed Patient: Brandi Dalton MR#: [id number] : 1940 Acct:[id number] Age/Sex: 82 / M ADM Date: 10/31/22 Loc: [place] Room: Type: [facility] Attending Dr: Avelina Chowdhury MD Ordering Provider: Avelina Chowdhury MD, [facility] Date of Service: 10/31/22/ ECH/ECH echo transesophageal SHARON: DYSPNEA, MR, A-FIB. Copies to: Avelina Chowdhury MD, [facility] Reason For Study: DYSPNEA, MR, A-FIB. History: [...] SCV Performed At: 10/31/22 1247 Signed By: Avelina Chowdhury MD, [facility] 10/31/22 1605NoProMedica Memorial HospitalBasi Metabolic Panelon 52-42-0830Qziij gap [Moles/Vol]9.3 mmol/L Normal6.0-15.0Ch[facility]icothe Va Medical CenterComment on above:Performed By: #### BMP, CBC #### [address] [address] USACalcium [Mass/Vol]9.1 mg/dLNormal8.6-10.3FBethesda North HospitalComment on above:Result Comment: PERFORMED BY: [place] [address] PATHOLOGIST ANGIOGRAPHER LILLIAN TILLMAN M.D.Performed By: #### BMP, CBC #### [place] [address] USAChloride [Moles/Vol]101 mmol/CCutkjk32-969QgfzuegmrChillicothe Va Medical CenterComment on above:Performed By: #### BMP, CBC #### [place] [address] USACO2 [Moles/Vol]34.3 mmol/LHigh21.0-31.0[facility] Va Medical CenterComment on above:Performed By: #### BMP, CBC #### [place] [address] USACreatinine [Mass/Vol]1.30 mg/dLNormal0.70-1.30Ch[facility]ic[facility] Va Medical CenterComment on above:Performed By: #### BMP, CBC #### [place] [address] USAGFR/1.73 sq M.predicted MDRD (S/P/Bld) [Vol rate/Area] 54.849 mL/min/{1.73_m2}NormalChillicothe Va Medical CenterComment on above: Performed By: #### BMP, CBC #### [place] [address] USAGlucose [Mass/Vol]89 mg/uDCtevkf42-707CthsmpppmChillicothe Va Medical CenterComment on above:Result Comment: Random Glucose Reference Range is dependent on time and content of last meal. Glucose of more than 200 mg/dL in a nonstressed, ambulatory subject supports the diagnosis of Diabetes Mellitus. ADA recommended reference rangePerformed By: #### BMP, CBC #### [place] [address] USAPotassium [Moles/Vol]4.6 mmol/LNormal3.5-5.1FBethesda North HospitalComment on above:Performed By: #### BMP, CBC #### [address] [place] [address] USASodium [Moles/Vol]140 mmol/TJpfcfg694-810JymifabxqChillicothe Va Medical CenterComment on above:Performed By: #### BMP, CBC #### [facility] [address] [place] [address] USAUrea nitrogen [Mass/Vol]29 mg/dLHigh7-25Ch[facility]ic[facility] Va Medical CenterComment on above:Performed By: #### BMP, CBC #### [facility] [address] [place] [address] USAComplete Blood Count Auto Diffon 53-01-2353Xcgmbdxcn (Bld) [#/Vol]0.1 10*3/uLNormal0.0-0.2FBethesda North HospitalComment on above:Result Comment: PERFORMED BY: [place] [address] PATHOLOGIST ANGIOGRAPHER LILLIAN TILLMAN M.D.Performed By: #### BMP, CBC #### [place] [address] USABasophils/100 WBC (Bld)1.1 %Normal.Chillicothe Va Medical CenterComment on above:Performed By: #### BMP, CBC #### [place] [address] USAEosinophils (Bld) [#/Vol]0.2 10*3/uLNormal0.0-0.45 [facility] Va Medical CenterComment on above:Performed By: #### BMP, CBC #### [place] [address] USAEosinophils/100 WBC (Bld)3.2 %Normal.Chillicothe Va Medical CenterComment on above:Performed By: #### BMP, CBC #### [place] [address] USAErythrocyte distribution width (RBC) [Ratio]14.4 %Normal 12.0-14.8Ch[facility] Va Medical CenterComment on above:Performed By: #### BMP, CBC #### [place] [address] USAHematocrit (Bld) [Volume fraction]43.0 %Gaefql95.8-50.0 [facility] Medical CenterComment on above:Performed By: #### BMP, CBC #### [facility] [address] [place] [address] USAHemoglobin (Bld) [Mass/Vol]14.4 g/jHTghwer40.0-17.0 [facility] Medical CenterComment on above:Performed By: #### BMP, CBC #### [facility] [address] [place] [address] USALymphocytes (Bld) [#/Vol]1.0 10*3/uLNormal1.00-4.8 [facility] Medical CenterComment on above:Performed By: #### BMP, CBC #### [place] [address] USALymphocytes/100 WBC (Bld)21.1 %Normal.Ch[facility] Va Medical CenterComment on above:Performed By: #### BMP, CBC #### [facility] [address] [place] [address] USAMCH (RBC) [Entitic mass]33.8 yoBsehny82.5-35.2FBethesda North HospitalComment on above:Performed By: #### BMP, CBC #### [place] [address] USAMCV (RBC) [Entitic vol]100.8 tVAlujrg83.5-101Chillicothe Va Medical CenterComment on above:Performed By: #### BMP, CBC #### [facility] [address] [place] [address] USAMean Corpuscular HGB Conc33.5 g/qQKpiikl77.5-35.6FBethesda North HospitalComment on above:Performed By: #### BMP, CBC #### [facility] [address] [place] [address] USAMonocytes (Bld) [#/Vol]0.6 10*3/uLNormal0.0-0.8Ch[facility] Va Medical CenterComment on above:Performed By: #### BMP, CBC #### [facility] [address] [place] [address] USAMonocytes/100 WBC (Bld)11.8 %Normal.Ch[facility]ic[facility] Va Medical CenterComment on above:Performed By: #### BMP, CBC #### [facility] [address] [place] [address] USANeutrophils (Bld) [#/Vol]2.9 10*3/uLNormal1.8-7.7FBethesda North HospitalComment on above:Performed By: #### BMP, CBC #### [facility] [address] [place] [id number] USANeutrophils/100 WBC (Bld)62.8 %Normal.Ch[facility] Va Medical CenterComment on above:Performed By: #### BMP, CBC #### [facility] [address] [place] [address] USANRBC%0.1 /100{WBC}Normal0-0.5FBethesda North HospitalComment on above:Performed By: #### BMP, CBC #### [facility] [address] [place] [address] USAPlatelet mean volume (Bld) [Entitic vol]8.0 fLNormal 6.6-10.1FBethesda North HospitalComment on above:Performed By: #### BMP, CBC #### [facility] [address] [place] [address] USAPlatelets (Bld) [#/Vol]213 10*3/dEVgsbkp489-494PuwfgqllxChillicothe Va Medical CenterComment on above:Performed By: #### BMP, CBC #### [facility] [address] [place] [address] USARBC (Bld) [#/Vol]4.27 10*6/uLNormal3.90-5.60Ch[facility] Va Medical CenterComment on above:Performed By: #### BMP, CBC #### [facility] [address] [place] [address] USAWBC (Bld) [#/Vol]4.7 10*3/uLNormal4.1-10.5FBethesda North HospitalComment on above:Performed By: #### BMP, CBC #### [facility] [address] [place] [id number] [facility]ITALOffice Visit (Cardiology)on 47-19-4952Btlhmn-up visit Diagnoses/Problems Assessed Mitral valve regurgitation (424.0) [...] insignificant and no action was needed. I havenot seen him since that time. Had an [facility] which I havethe report reviewed. It demonstrated significant dilatation of right and left atrium and significant amount of prolapse of the mitral valve leading to moderate-severe regurgitation. The patient has symptoms of limited exercise tolerance, he has no orthopnea PND or lower extremity edema and no chestpain. Has no TIAs or stroke and no bleeding complications. His examination reveals that the mitral r egurgitation murmur is consistent with the prolapse. He has irregular rhythm and his EKG atrial fibrillation with controlled rate. Currently he is on samples of Eliquis. Assessment/recommendations: 1?persistent atrial fibrillation with controlled rate. The patient require long- term anticoagulation and the rationale for that was discussed with him at length. He chose to go on Xarelto 20 mg dailysince he has normal kidney function. His rate [...] Current Meds Medication NameInst (more content not included)...NormalUH TouchworksTobacco Screening.on 81-10-3416Npmaf depression screening assessmentNo-[facility] HeartIde[place] 250 DO Work Phone: Fall risk assessmenta) No falls within the last year [facility]-[place] 250 DO Work Phone: Tobacco use status CPHSb) NoM-[facility] Heart- [place] 250 DO Work Phone: ECHOCARDIO M/2D COMPLETEon 63-11-7828DNORPZNMHC M/2D COMPLETEPatient: BRANDI DALTON Exam Date: 09/16/2022 : 1940 Gender:M Ordering : DR SAMANTHA MAYA . Admission #: [id number] Family : Order #: [id number] CLICK HERE TO VIEW EXAM ECHOCARDIOGRAM REPORT [...] by: Jt Lackey M.D. on 09/16/2022 at 20:23NoOhioHealth Shelby HospitalBNPon 36-47-4658Orepnqqesye peptide B (Bld) [Mass/Vol]154.0 pg/mLNormal <=1,800.0The [facility] OhioComment on above:Performed By: #### TSH, T7, CMP, BNP ####[facility] S[address] [place], [place] [address]Dr. Elver GibsonCBC AUTO DIFFon 89-70-5786CWML #0.0 103/ulNormal0.0-0.1The [facility] OhioComment on above:Performed By: #### CBC ####[facility] Y[address] [place], [place] [address]Dr.Elver ChangBasophils/100 WBC (Bld)0.6 %Normal0.2-2.0The [facility] OhioComment on above:Performed By: #### CBC ####[facility] Okrruueihh[address] [place], [place] [address]Dr.Mariannelan ChangEO #0.2 103/ulNormal0.0-0.7The [facility] OhioComment on above:Performed By: #### CBC ####[facility] Pjf[address]aij[address] [place], [place] [address]Dr.Elver ChangEosinophils/100 WBC (Bld)4.1 %Normal 0.9-7.0The [facility] OhioComment on above:Performed By: #### CBC ####[facility] Wyelutxhal[address] [place], [place] [address]Dr.Elver Gibson Erythrocyte distribution width (RBC) [Ratio]13.5 %Xuqxdo66.0-15.0The [facility] OhioComment on above:Performed By: #### CBC ####[facility] Qripvfandk[address] [place], [place] [address]Dr.Elver ChangHematocrit (Bld) [Volume fraction]42.9 %Tjudrt75.0-54.0The [facility] OhioComment on above:Performed By: #### CBC ####[facility] Glcyzgapoa[address] [place], [place] [address]Dr.Elver ChangHemoglobin (Bld) [Mass/Vol]14.5 g/dL Iftoxo96.0-18.0The [facility] OhioComment on above:Performed By: #### CBC ####[facility] Xwlpcxzznl[address] [place], [place] [address]Dr. Elver ChangIG #0.01 10e3/ulNormal0.00-0.03The [facility] OhioComment on above: Performed By: #### CBC ####[facility] E[address]kihd[address] [place], [place] [address]Dr.Elver ChangIG %0.2 %Normal0.0-0.5The [facility] OhioComment on above:Performed By: #### CBC ####[facility] Pb[address]wcpxf[address] [place], [place] [address]Dr.Elver GibsonLYMPH #1.2 103/ulNormal1.2-3.8The [facility] OhioComment on above:Performed By: #### CBC ####[facility] Qz[address]hacdht[address] [place], [place] [address]Dr. Elver ChangLymphocytes/100 WBC (Bld)21.8 %Iwlshu22.5-60.0The [facility] Comment on above:Performed By: #### CBC ####[facility] [address] [place] [address]Dr.Elver GibsonMANUAL DIFF REQNONormalThe [facility] OhioComment on above:Performed By: #### CBC ####[facility] [address] [place] [address]Dr.Elver GibsonH (RBC) [Entitic mass]33.4 cxYvjygq79.9-34.0The Ault HospitalComment on above: Performed By: #### CBC ####[facility] Y[address]ushzcuta[address] [place], [place] [address]Dr.Elver GibsonHC (RBC) [Mass/Vol]33.8 g/dLNormal 29.9-35.2The [facility] OhioComment on above:Performed By: #### CBC ####[facility] [address]xylp[address] [place], [place] [address]Dr. Elver GibsonV (RBC) [Entitic vol]98.8 fLCritically high80.0-94.0The [facility] OhioComment on above:Performed By: #### CBC ####[facility] Bofclztiva[address] [place], [place] [address]Dr.Elver GibsonMONO #0.7 103/ulNormal0.3-0.8The [facility] OhioComment on above:Performed By: #### CBC ####[facility] Rys[address]vecao[address] [place], [place] [address]Dr. Elver ChangMonocytes/100 WBC (Bld)13.3 %Critically high1.7-12.0The [facility] OhioComment on above:Performed By: #### CBC ####[facility] N[address]uvf[address] [place], [place] [address]Dr.Elver ChangNEUT #3.3 103/ulNormal1.4-6.5The [facility] OhioComment on above:Performed By: #### CBC ####[facility] Gdngiazpcf[address] [place], [place] [address]Dr. Mariannelan ChangNeutrophils/100 WBC (Bld)60.0 %Ctpdlu56.0-75.0The [facility] Comment on above:Performed By: #### CBC ####[facility] [address] [place] [address]Dr.Elver GibsonPlatelet mean volume (Bld) [Entitic vol]9.5 fLNormal9.5-13.5The [facility] OhioComment on above:Performed By: #### CBC ####[facility] Ovivsocmsx[address] [place], [place] [address]Dr.Mariannelan FwmgeCCM189 103/tsQcmkjc973-855Gbs Ault HospitalComment on above:Performed By: #### CBC ####[facility] Bw[address]devogb[address] [place], [place] [address]Dr.Mariannelan ChangRBC4.34 106/ulCritically low4.70-6.10The [facility]ult HospitalComment on above:Performed By: #### CBC ####[facility] T[address] [place], [place] [address]Dr.Elver ChangWBC5.4 103/ul Normal4.0-11.0The Ault HospitalComment on above:Performed By: #### CBC ####[facility] Expijjgway[address] [place], [place] [address]Dr. Mariannelan ChangFREE THYROXINE INDEX T7on 32-15-5442JKR5.51Kffwsx8.30-4.50The [facility] OhioComment on above:Performed By: #### TSH, T7, CMP, BNP ####[facility] Yucrluwhei[address] [place], [place] [address]Dr. Elver HgpvsU1J29.0 %Vqwtfo09.0-40.0The [facility] - Southeast OhioComment on above: Performed By: #### TSH, T7, CMP, BNP ####[facility] Hxbpm[address]qum[address] [place], [place] [address]Dr. Mariannelan ChangT4 [Mass/Vol]6.30 ug/dLNormal 4.50-12.10The [facility] Southeast OhioComment on above:Performed By: #### TSH, T7, CMP, BNP ####[facility] Uajqagqcjj[address] [place], [place] [address]Dr. Yilan ChangPROF 14(COMP METB)on 26-38-0174Dxuybmo [Mass/Vol]3.8 g/dLNormal 3.4-5.0The [facility] Southeast OhioComment on above:Performed By: #### TSH, T7, CMP, BNP ####[facility] Cxooylkwqx[address] [place], [place] [address]Dr. Yilan ChangAlbumin/Globulin [Mass ratio]1.1 {ratio}NormalThe [facility] Comment on above:Performed By: #### TSH, T7, CMP, BNP ####[facility] Vcuhdckrgo[address] [place], [place] [address]Dr. Yilan ChangALP [Catalytic activity/Vol]74 U/XWktepp63-304Ixc [facility] OhioComment on above:Performed By: #### TSH, T7, CMP, BNP ####[facility] Hqhhlausaa[address] [place], [place] [address]Dr. Yilan ChangALT [Catalytic activity/Vol]27 U/LNormal 16-63The [facility] Southeast OhioComment on above:Performed By: #### TSH, T7, CMP, BNP ####[facility] Mdrwkwybow[address] [place], [place] [address]Dr. Yilan ChangAnion gap [Moles/Vol]10.8 mmol/LNormalThe Holzer Hospitalment on above:Performed By: #### TSH, T7, CMP, BNP ####[facility] Savdanptwv[address] [place], [place] [address]Dr. Yilan ChangAST [Catalytic activity/Vol] 30 U/KXrhrlh24-65Smo [facility] OhioComment on above:Performed By: #### TSH, T7, CMP, BNP ####[facility] Pzqtuzexxa[address] [place], [place] [address]Dr. Yilan ChangBilirubin [Mass/Vol]0.7 mg/dLNormal0.2-1.0The [facility] Southeast OhioComment on above:Performed By: #### TSH, T7, CMP, BNP ####[facility] Lyqwaovpke[address] [place], [place] [address]Dr. Yilan Gibson Calcium [Mass/Vol]9.3 mg/dLNormal8.5-10.1The Ault HospitalComment on above: Performed By: #### TSH, T7, CMP, BNP ####[facility] [address] [place] [address]Dr. Yilan ChangChloride [Moles/Vol]104 mmol/L Iculxf07-731Brh [facility] on above:Performed By: #### TSH, T7, CMP, BNP ####[facility] Wlakgfrcss[address] [place], [place] [address]Dr. Yilan ChangCO2 [Moles/Vol]31.9 mmol/XDwzbfe26.0-32.0The [facility] OhioComcorewell [facility] on above:Performed By: #### TSH, T7, CMP, BNP ####[facility] Bowerpizrb[address] [place], [place] [address]Dr. Yilan Gibson Creatinine [Mass/Vol]1.19 mg/dLNormal0.70-1.30The [facility] on above:Performed By: #### TSH, T7, CMP, BNP ####[facility] Llcpuecdbh[address] [place], [place] [address]Dr. Yilan ChangEGFR-AF FIJIAN>60Normal>=60 The [facility] on above:Performed By: #### TSH, T7, CMP, BNP ####[facility] [address] [place] [address]Dr. Yilan ChangEGFR-NON AF CAQVZXBS52 mL/min/1.64n4Vyecedeamv low>=60The [facility] on above:Performed By: #### TSH, T7, CMP, BNP ####[facility] Setvyctdew[address] [place], [place] [address]Dr. Yilan Gibson Globulin (S) [Mass/Vol]3.5 g/dLNormalThe [facility] OhioComcorewell health [facility] on above: Performed By: #### TSH, T7, CMP, BNP ####[facility] X[address]sx[address]kc[address] [place] [address]Dr. Yilan ChangGlucose [Mass/Vol]124 mg/dL Critically jltq07-600Jsj [facility] on above:Performed By: #### TSH, T7, CMP, BNP ####[facility] [address] [place] [address]Dr. Yilan ChangPotassium [Moles/Vol]4.7 mmol/LNormal3.5-5.1The [facility] OhioComment on above:Performed By: #### TSH, T7, CMP, BNP ####[facility] [address]jwxts[address] [place] [address]Dr. Yilan ChangProtein [Mass/Vol]7.3 g/dLNormal6.4-8.2The Ault HospitalComment on above:Performed By: #### TSH, T7, CMP, BNP ####[facility] [address]co[address] [place] [address]Dr. Yilan ChangSodium [Moles/Vol]142 mmol/UZnhbeo815-760Tvo [facility] Southeast OhioComment on above: Performed By: #### TSH, T7, CMP, BNP ####[facility] Chqazlmqib[address] [place], [place] [address]Dr. Yilan ChangUrea nitrogen [Mass/Vol]27.0 mg/dL Critically high7.0-18.0The [facility] OhioComment on above:Performed By: #### TSH, T7, CMP, BNP ####[facility] Xmfral[address] [place], [place] [address]Dr. Yilan ChangUrea nitrogen/Creatinine [Mass ratio]22.7 mg/mgNormal The [facility] Southeast OhioComment on above:Performed By: #### TSH, T7, CMP, BNP ####[facility] Qeoewgtvzg[address] [place], [place] [address]Dr. Yilan ChangTSHon 08-46-0235MWE6.455 uIU/mLNormal0.358-3.740The [facility] Comment on above:Performed By: #### TSH, T7, CMP, BNP ####[facility] Xljiltrycj[address] [place], [place] [address]Dr. Yilan ChangXR CHEST 2 Von 19-09-6473YU CHEST 2 VEXAMINATION: XR CHEST 2 V, 09/09/2022 12:11 PM EDT HISTORY: Dyspnea COMPARISON: None. TECHNIQUE: Chest x-ray: Two views. FINDINGS: No focal consolidations or pleural effusions. Cardiomediastinal silhouette is unremarkable. Calcified mediastinal lymph nodes. Severe degenerative changes of the glenohumeral joints bilaterally. Thoracic spine spondylosis. IMPRESSION: No acute disease. Electronically authenticated by: VAN KELSEALAURA Date: 2022-09-09 12:48NormalThe [facility] OhioINSULINon 39-92-0530Yuqagho91.3 uIU/mLNormal2.6-24.9The [facility] OhioComment on above:Performed By: #### INSULIN #### [facility] Laboratory [address] [place] [address] Dr. Elver Perkins4, T3U, FTI LABCORPon 30-01-1907Sing Thyroxine Index2.1Normal 1.2-4.9The [facility] Southeast OhioComment on above:Performed By: #### THYLC #### [facility] [address] [place] [address] Dr. Elver GibsonT3 Vvxuze06 %Rutsmw00-23Opi [facility] OhioComment on above: Performed By: #### THYLC #### [facility] [address] [place] [address] Dr. Elver [place] [Mass/Vol]7.0 ug/dLNormal4.5-12.0The [facility] Southeast OhioComment on above:Performed By: #### THYLC #### [facility] [address] [place] [address] Dr. Elver Sears 23-87-9966Irprhjylqqv peptide B (Bld) [Mass/Vol]229.0 pg/mL Normal<=1,800.0The [facility] Southeast OhioComment on above:Performed By: #### BNP, CMP, LIPID, TSH, URIC #### [facility] [address] [place] [address] Dr. Elver Rock AUTO DIFFon 53-79-7420ZYTM #0.0 103/ulNormal0.0-0.1The [facility] OhioComment on above:Performed By: #### CBC ####[facility] [address] [place] [address]lan ChangBasophils/100 WBC (Bld)0.7 %Normal0.2-2.0The [facility] Southeast OhioComment on above:Performed By: #### CBC ####[facility] O[address]nhcdxyv[address] [place], [place] [address]Dr.Mariannelan ChangEO #0.2 103/ulNormal0.0-0.7The [facility] OhioComment on above:Performed By: #### CBC ####[facility] Gjrib[address]jce[address] [place], [place] [address]Dr.Elver ChangEosinophils/100 WBC (Bld)3.9 %Normal 0.9-7.0The [facility] OhioComment on above:Performed By: #### CBC ####[facility] Ooeaspdvxz[address] [place], [place] [address]Dr.Elver Gibson Erythrocyte distribution width (RBC) [Ratio]13.2 %Wgrpje63.0-15.0The [facility] OhioComment on above:Performed By: #### CBC ####[facility] Jqexapjqti[address] [place], [place] [address]Dr.Marianneyemi ChangHematocrit (Bld) [Volume fraction]42.9 %Mblezv33.0-54.0The [facility] Southeast OhioComment on above:Performed By: #### CBC ####[facility] Tqoduxhukg[address] [place], [place] [address]Dr.Elver ChangHemoglobin (Bld) [Mass/Vol]14.2 g/dL Oidugb13.0-18.0The [facility] OhioComment on above:Performed By: #### CBC ####[facility] Joiorxviuz[address] [place], [place] [address]Dr. Mariannelan ChangIG #0.01 10e3/ulNormal0.00-0.03The [facility] OhioComment on above: Performed By: #### CBC ####[facility] Ldusjjbisa[address] [place], [place] [address]Dr.Elver ChangIG %0.2 %Normal0.0-0.5The [facility] OhioComment on above:Performed By: #### CBC ####[facility] [address]xbk[address] [place] [address]Dr.Elver GibsonLYMPH #1.4 103/ulNormal1.2-3.8The [facility] OhioComment on above:Performed By: #### CBC ####[facility] [address]hrzptx[address] [place] [address]Dr. Elver GibsonLymphocytes/100 WBC (Bld)24.0 %Geuqtz11.5-60.0The [facility] Comment on above:Performed By: #### CBC ####[facility] [address]xwxj[address] [place] [address]Dr.Elver GibsonMANUAL DIFF REQNONormalThe [facility] OhioComment on above:Performed By: #### CBC ####[facility] Ivouotwpob[address] [place], [place] [address]Dr.Elevr GibsonMCH (RBC) [Entitic mass]33.3 laUphqco40.9-34.0The [facility] OhioComment on above: Performed By: #### CBC ####[facility] Mcxomwylph[address] [place], [place] [address]Dr.Elver GibsonMCHC (RBC) [Mass/Vol]33.1 g/dLNormal 29.9-35.2The [facility] OhioComment on above:Performed By: #### CBC ####[facility] T[address]ykxiif[address] [place], [place] [address]Dr. Elver GibsonMCV (RBC) [Entitic vol]100.7 fLCritically high80.0-94.0The [facility] OhioComment on above:Performed By: #### CBC ####[facility] [address]gif[address] [place] [address]Dr.Elver GibsonMONO #0.7 103/ulNormal0.3-0.8The [facility] OhioComment on above:Performed By: #### CBC ####[facility] X[address]osf[address] [place], [place] [address]Dr. Elver ChangMonocytes/100 WBC (Bld)12.7 %Critically high1.7-12.0The [facility] OhioComment on above:Performed By: #### CBC ####[facility] [address] [place] [address]Dr.Elver RinconUT #3.3 103/ulNormal1.4-6.5The [facility] OhioComment on above:Performed By: #### CBC ####[facility] [address]knkln[address] [place] [address]Dr. Elver GibsonNeutrophils/100 WBC (Bld)58.5 %Vpxyso93.0-75.0[facility] Comment on above:Performed By: #### CBC ####[facility] [address]tslnc[address] [place] [address]Dr.Elver GibsonPlatelet mean volume (Bld) [Entitic vol]9.6 fLNormal9.5-13.5The [facility] OhioComment on above:Performed By: #### CBC ####[facility] [address] [place] [address]Dr.Elver UktbpYXL084 103/rjYmcqxy164-512Ytp [facility] OhioComment on above:Performed By: #### CBC ####[facility] [address]ae[address] [place] [address]Dr.Elver GibsonRBC4.26 106/ulCritically low4.70-6.10The [facility] OhioComment on above:Performed By: #### CBC ####[facility] [address] [place] [address]Dr.Elver GibsonWBC5.7 103/ul Normal4.0-11.0[facility] - TrumbullComment on above:Performed By: #### CBC ####[facility] [address]qd[address] [place] [address]Dr. Elver GibsonGLYCOHEMOGLOBIN A1Con 11-55-3730OND RECOMMENDATIONSEE [facility] CampusComment on above:Result Comment: ADA RECOMMENDED LIMIT 4.0 - 6.0 ADA THERAPEUTIC TARGET < 7.0 ACTION SUGGESTED > 7.0Performed By: #### A1C #### [facility] Laboratory [address] [address] [address] Elver GibsonGlucose [Mass/Vol]108 mg/dLHocking Valley Community HospitalComment on above:Performed By: #### A1C #### [facility] [address] [place] [address] Dr. Elver GibsonHbA1c (Bld) [Mass fraction]5.4 %Normal4.5-6.2[facility] - TrumbullComment on above:Performed By: #### A1C #### [facility] [address] [place] [address] Dr. Elver GibsonLIPID PROFILEon 16-92-9360DQTA-HDL RATIO NORMSEE St[facility]ont[facility] CampusComment on above:Result Comment: 3.3 - 4.4 LOW RISK 4.4 - 7.1 AVERAGE RISK 7.1 - 11.0 MODERATE RISK >11.0 HIGH RISKPerformed By: #### BNP, CMP, LIPID, TSH, URIC #### [facility] [address] [place] [address] Dr. Elver Jallohesterol [Mass/Vol]174 mg/dLNormal<=200The [facility] Comment on above:Performed By: #### BNP, CMP, LIPID, TSH, URIC #### [facility] [address] [place] [address] Dr. Elvre Jallohesterol in HDL [Mass/Vol]63 mg/dLCritically ggyg90-33Oja [facility] OhioComment on above:Performed By: #### BNP, CMP, LIPID, TSH, URIC #### [facility] [address] [place] [address] Dr. Elver Jallohesterol in LDL [Mass/Vol]100.4 mg/dLHocking Valley Community HospitalComment on above:Performed By: #### BNP, CMP, LIPID, TSH, URIC #### [facility] [address] [place] [address] Dr. Elver Simon.total/Cholesterol in HDL [Mass ratio]2.8 {ratio} NormalSelect Medical Specialty Hospital - TrumbullComment on above:Performed By: #### BNP, CMP, LIPID, TSH, URIC #### [facility] [address] [address] [address] Elver Rojas NORMAL> or = 60 mg/dl - LOW CARDIOVASCULAR RISK <40 mg/dl - HIGH CARDIOVASCULAR RISKHocking Valley Community HospitalComment on above:Performed By: #### BNP, CMP, LIPID, TSH, URIC #### [facility] [address] [address] [address] Elver GibsonLDL CALC NORMALSEE BELOWHocking Valley Community HospitalComment on above:Result Comment: <100 mg/dl OPTIMAL 100 - 129 mg/dl NEAR OR ABOVE OPTIMAL 130 - 159 mg/dl BORDERLINE HIGH 160 - 189 mg/dl HIGH >190 mg/dl VERY HIGH Performed By: #### BNP, CMP, LIPID, TSH, URIC #### [facility] [address] [address] [address] Elver GibsonTriglyceride [Mass/Vol]53 mg/dLNormal<=150The [facility] Comment on above:Performed By: #### BNP, CMP, LIPID, TSH, URIC #### [facility] [address] [place] [address] Dr. Elver GibsonVLDL CALC10.6 mg/dLNoOhioHealth Shelby HospitalComment on above: Performed By: #### BNP, CMP, LIPID, TSH, URIC #### [facility] [address] [place] [address] Dr. Elver GibsonPROF 14(COMP METB)on 85-70-8505Ekhvqal [Mass/Vol]3.7 g/dLNormal 3.4-5.0The [facility] OhioComment on above:Performed By: #### BNP, CMP, LIPID, TSH, URIC #### [facility] [address] [address] [address] Elver GibsonAlbumin/Globulin [Mass ratio]1.1 {ratio}NormalThe [facility] on above:Performed By: #### BNP, CMP, LIPID, TSH, URIC #### [facility] [address] [place] [address] Dr. Elver Schumacher [Catalytic activity/Vol]64 U/ZNnzlxy99-629Myo Oliverio HospitalComment on above:Performed By: #### BNP, CMP, LIPID, TSH, URIC #### [facility] [address] [address] [address] Elver Camacho [Catalytic activity/Vol]27 U/LJtokwa75-20Hgj [facility] OhioComment on above:Performed By: #### BNP, CMP, LIPID, TSH, URIC #### [facility] [address] [place] [address] Dr. Elver Clifford gap [Moles/Vol]9.7 mmol/LNormalThe [facility] OhioComment on above:Performed By: #### BNP, CMP, LIPID, TSH, URIC #### [facility] [address] [place] [address] Dr. Elver Leon [Catalytic activity/Vol]30 U/CAnfcik94-55Ezb [facility] OhioComment on above:Performed By: #### BNP, CMP, LIPID, TSH, URIC #### [facility] [address] [place] [address] Dr. Elver GibsonBilirubin [Mass/Vol]0.7 mg/dLNormal0.2-1.0[facility] Comment on above:Performed By: #### BNP, CMP, LIPID, TSH, URIC #### [facility] [address] [place] [address] Dr. Elver GibsonCalcium [Mass/Vol]8.9 mg/dLNormal8.5-10.1[facility] Comment on above:Performed By: #### BNP, CMP, LIPID, TSH, URIC #### [facility] [address] [place] [address] Dr. Elver GibsonChloride [Moles/Vol]104 mmol/QIwivsa86-923Jmx [facility] Comment on above:Performed By: #### BNP, CMP, LIPID, TSH, URIC #### [facility] [address] [place] [address] Dr. Elver GibsonCO2 [Moles/Vol]31.8 mmol/WAwdyfc38.0-32.0The [facility] Comment on above:Performed By: #### BNP, CMP, LIPID, TSH, URIC #### [facility] [address] [address] [address] Elver GibsonCreatinine [Mass/Vol]1.19 mg/dLNormal0.70-1.30The [facility] OhioComment on above:Performed By: #### BNP, CMP, LIPID, TSH, URIC #### [facility] [address] [place] [address] Dr. Elver GuilloryGFR-AF FIJIAN>60Normal>=60The [facility] OhioComment on above:Performed By: #### BNP, CMP, LIPID, TSH, URIC #### [facility] [address] [place] [address] Dr. Elver GuilloryGFR-NON AF UNKEEDBE75 mL/min/1.38u1Jnhpcrzowb low>=60The [facility] OhioComment on above:Performed By: #### BNP, CMP, LIPID, TSH, URIC #### [facility] [address] [place] [address] Dr. Elver GibsonGlobulin (S) [Mass/Vol]3.4 g/dLNormalThe [facility] OhioComment on above:Performed By: #### BNP, CMP, LIPID, TSH, URIC #### [facility] [address] [place] [address] Dr. Elver GibsonGlucose [Mass/Vol]97 mg/uTTsumba59-499WsrSelect Medical Specialty Hospital [facility] Comment on above:Performed By: #### BNP, CMP, LIPID, TSH, URIC #### [facility] [address] [place] [address] Dr. Elver GibsonPotassium [Moles/Vol]4.5 mmol/LNormal3.5-5.1[facility] Comment on above:Performed By: #### BNP, CMP, LIPID, TSH, URIC #### [facility] [address] [place] [address] Dr. Elver GibsonProtein [Mass/Vol]7.1 g/dLNormal6.4-8.2[facility] Comment on above:Performed By: #### BNP, CMP, LIPID, TSH, URIC #### [facility] [address] [address] [address] Elver Carrascodium [Moles/Vol]141 mmol/KHywhog944-079Gpl [facility] Comment on above:Performed By: #### BNP, CMP, LIPID, TSH, URIC #### [facility] [address] [address] [address] Elver Hobson nitrogen [Mass/Vol]31.0 mg/dLCritically high7.0-18.0The [facility] OhioComment on above:Performed By: #### BNP, CMP, LIPID, TSH, URIC #### [facility] [address] [address] [address] Elver Hobson nitrogen/Creatinine [Mass ratio]26.1 mg/mgNormalThe [facility] OhioComment on above:Performed By: #### BNP, CMP, LIPID, TSH, URIC #### [facility] [address] [place] [address] Dr. Elver Villagomez 96-50-8514JUM9.829 uIU/mLNormal0.358-3.740The [facility] OhioComment on above:Performed By: #### BNP, CMP, LIPID, TSH, URIC #### [facility] [address] [place] [address] Dr. Elver GibsonURIC ACID SERUMon 26-36-8873Uldlb [Mass/Vol]7.1 mg/dLNormal 3.5-7.2The [facility] OhioComment on above:Performed By: #### BNP, CMP, LIPID, TSH, URIC #### [facility] [address] [place] [address] Dr. Elver Clark Panel InformationMccullough[facility] Vital Signs Date TimeVital SignValuePerforming NjrnqvxrtWjzejwnk79-96-0452 12:46-0400Body pureqq765.6 Gabrielle Mendoza MD Work Phone: [facility]06-30-2025 12:46-0400Body mass index (BMI) [Ratio]25.91 kg/j5HhixscKendra Mendoza MD Work Phone: [facility]06-30-2025 12:46-0400Body ofdjco26.8 kgKendra Mendoza MD Work Phone: [facility]06-30-2025 12:46-0400Diastolic blood vqdwbiuj69 mm[Hg]Kendra Mendoza MD Work Phone: [facility]06-30-2025 12:46-0400Heart rate57 /min Kendra Mendoza MD Work Phone: [phone]06-30-2025 12:46-6997JaM6% (BldA) [Mass fraction]98 %Kendra Mendoza MD Work Phone: [facility] HospitalComment on above:[id number] 12:46-0400Systolic blood oasvfcgn645 mm[Hg]Kendra Mendoza MD Work Phone: [phone]04-28-2025 12:30-0400Body ihnopr130.1 cmTomy Hutton MD Work Phone: [phone]04-28-2025 12:30-0400Body mass index (BMI) [Ratio]27.09 kg/b5KanoypsTomy Hutton MD Work Phone: [phone]04-28-2025 12:30-0400Body iejcub35.85 kgTomy Hutton MD Work Phone: [phone]04-28-2025 12:30-0400Diastolic blood zmnzqyss29 mm[Hg]Tomy Hutton MD Work Phone: [facility]04-28-2025 12:30-0400Heart rate59 /min Tomy Hutton MD Work Phone: [place] [address]-28-2025 12:30-5083LdE0% (BldA) [Mass fraction]97 %Tomy Hutton MD Work Phone: [phone] HospitalComment on above:[id number] 12:30-0400Systolic blood azxadijy534 mm[Hg]Tomy Hutton MD Work Phone: [facility]04-15-2025 14:36-0400Body hblirx950.1 Heidi Valles MD Work Phone: cPrem[facility] HealthSaaroq48-41-5648 14:36-0400Body mass index (BMI) [Ratio]26.46 kg/i9JbyflcpvAriana Valles MD Work Phone: cPremier HealthErxxqv18-86-2267 14:36-0400Body vltlly11.12 kgAriana Valles MD Work Phone: cPremier HealthXoyhop68-79-6517 14:36-0400Diastolic blood ddtegwqm32 mm[Hg]Ariana Valles MD Work Phone: cPremier HealthDltxez38-80-0256 14:36-0400Heart rate94 /min Ariana Valles MD Work Phone: cPremier HealthIxigal36-05-9387 14:36-0400Systolic blood nbarvlqt839 mm[Hg]Ariana Valles MD Work Phone: cPremier HealthOsrxdj29-49-9489 10:56-0500Blood Pressure LocationKMARC LOOMIS-BOO [facility]01-30-2025 10:56-0500Diastolic blood mm[Hg]MIKE LOOMIS-AMKOFI [facility]01-30-2025 10:56-0500Heart rate59 /minMIKE LOOMIS-AMANK [facility]01-30-2025 10:56-0500Systolic blood ddwofpxz811 mm[Hg]MIKE LOOMIS-AMANK [facility]01-09-2025 10:40-0500Heart rate80 /minKWABENA NKANSAH-AMANKRA [facility]01-09-2025 10:40-8310YgC8% (BldA) [Mass fraction]95 %MIKE NKANSAH-AMANKRA [facility]01-09-2025 10:40-0500 Diastolic blood fodrjblv18 mm[Hg]MIKE NKANSAH-AMANKRA [address] [place], [place] 7207201-09-2025 10:40-0500Mean blood arljyfqm262 mm[Hg]IMKE NKANSAH-AMANKRA [address] [place], [place] 7207201-09-2025 10:40-0500 Systolic blood txvwnjuj892 mm[Hg]MIKE NKANSAH-AMANKRA [address] [place], [place] 7207201-09-2025 09:15-0500 Diastolic blood mm[Hg]MIKE NKANSAH-AMANKRA [address] [place], [place] 7207201-09-2025 09:15-0500Heart rate69 /minKWABENA NKANSAH-AMANKRA [facility]01-09-2025 09:15-0500Mean blood mm[Hg]MIKE NKANSAH-AMANKRA [address] [place], [place] 7207201-09-2025 09:15-0500 Respiratory rate16 /minKWABENA NKANSAH-AMANKRA [facility]01-09-2025 09:15-3530ZsG4% (BldA) [Mass fraction]94 %MIKE NKANSAH-AMANKRA [address] [place], [place] 7207201-09-2025 09:15-0500 Systolic blood dptuuzuq166 mm[Hg]MIKE NKANSAH-AMANKRA [facility]01-09-2025 09:10-0500Blood Pressure LocationKMARC SINGLETONANSAH-AMANKRA [facility]01-09-2025 09:10-0500Body .88 [degF]MIKE ARELIANSAH-AMANKRA [address] [place], [place] 7207201-09-2025 09:10-0500 Diastolic blood jumslxuf17 mm[Hg]MIKE SINGLETONANSAH-AMANKRA [address] [place], [place] 7207201-09-2025 09:10-0500Heart rate68 /minMIKE SINGLETONANSAH-AMANKRA [address] [place], [place] 7207201-09-2025 09:10-0500Mean blood zmcazjan247 mm[Hg]MIKE SINGLETONANSAH-AMANKRA [facility]01-09-2025 09:10-0500 Respiratory rate17 /Marely SINGLETONANSAH-AMANKRA [address] [place], [place] 7222701-09-2025 09:10-6486AwK5% (BldA) [Mass fraction]94 %MIKE ARELIANSAH-AMANKRA [facility]01-09-2025 09:10-0500 Systolic blood agnsitul709 mm[Hg]MIKE ARELIANSAH-AMANKRA [facility]01-09-2025 09:00-0500Mean blood sscoyngu214 mm[Hg]MIKE NKANSAH-AMANKRA [address] [place], [place] 7207201-09-2025 08:55-0500Blood Pressure LocationKMARC SINGLETONANSAH-AMANKRA [address] [place], [place] 7207201-09-2025 08:55-0500 Respiratory rate17 /minKWABENA NKANSAH-AMANKRA [address] [place], [place] 7207201-09-2025 08:44-0500Body hikkaytnaaj36.7 [degF]MIKE NKANSAH-AMANKRA [address] [place], [place] 7207201-09-2025 08:40-0500 Respiratory rate12 /minKWABENA NKANSAH-AMANKRA [address] [place], [place] 7207201-09-2025 08:35-0500 Respiratory rate11 /minKWABENA NKANSAH-AMANKRA [address] [place], [place] 7207201-09-2025 07:10-0500Heart rate82 /minKWABENA NKANSAH-AMANKRA [address] [place], [place] 7207201-09-2025 07:06-0500Body aacteeahzqf77.88 [degF]MIKE NKANSAH-AMANKRA [address] [place], [place] 7207201-09-2025 07:06-0500Mean blood satdskpf385 mm[Hg]MIKE NKANSAH-AMANKRA [address] [place], [place] 7207201-02-2025 12:19-0500 Diastolic blood mm[Hg]MIKE NKANSAH-AMANKRA [address] [place], [place] 7207201-02-2025 12:19-0500Heart rate63 /minKWABENA NKANSAH-AMANKRA [address] [place], [place] 7222701-02-2025 12:19-0500Mean blood liojswtq45 mm[Hg]MIKE NKANSAH-AMANKRA [address] [place], [place] 7207201-02-2025 12:19-0500 Systolic blood vedwcmuy907 mm[Hg]MIKE NKANSAH-AMANKRA [facility]01-02-2025 12:18-0500Heart rate60 /minKAGNIESZKANA ARELIANSAH-AMANKRA [facility]01-02-2025 12:18-8365XsI0% (BldA) [Mass fraction]95 %MIKE NKANSAH-AMANKRA [facility]01-02-2025 12:18-0500 Diastolic blood vsjrhydc04 mm[Hg]MIKE NKANSAH-AMANKRA [facility]01-02-2025 12:18-0500Mean blood fmkyxvcs01 mm[Hg]MIKE NKANSAH-AMANKRA [facility]01-02-2025 12:18-0500 Systolic blood fiisrykb680 mm[Hg]MIKE NKANSAH-AMANKRA [facility]01-02-2025 12:17-0500Body .24 [degF]MIKE NKANSAH-AMANKRA [facility]01-02-2025 10:11-0500Blood Pressure LocationKMARC NKANSAH-AMANKRA [facility]01-02-2025 10:11-0500Diastolic blood qsymhtic15 mm[Hg]MIKE NKANSAH-AMANKRA [facility]01-02-2025 10:11-0500Heart rate62 /minKMARC SINGLETONANSAH-AMANKRA [facility]01-02-2025 10:11-0500Systolic blood tssplqih774 mm[Hg]MIKE NKANSAH-AMANKRA [facility] [place] 958372-17-2024 11:23-0500Body tlorbd658.1 Gabrielle Mendoza MD Work Phone: [facility]12-17-2024 11:23-0500Body mass index (BMI) [Ratio]25.79 kg/i6YskitdKendra Mendoza MD Work Phone: [phone]12-17-2024 11:23-0500Body wzfkri39.31 kgKendra Mendoza MD Work Phone: [facility]12-17-2024 11:23-0500Diastolic blood yctpvipz17 mm[Hg]Kendra Mendoza MD Work Phone: [facility]12-17-2024 11:23-0500Heart rate60 /min Kendra Mendoza MD Work Phone: [phone]12-17-2024 11:23-0500Respiratory rate 15 /minEleora Mendoza MD Work Phone: [facility]12-17-2024 11:23-6608SpE3% (BldA) [Mass fraction]94 %Kendra Mendoza MD Work Phone: [facility]12-17-2024 11:23-0500Systolic blood mm[Hg]Kendra Mendoza MD Work Phone: [phone]11-29-2024 16:26-0500Body .1 cmRd Qureshi MD Work Phone: [place] [address]-29-2024 16:26-0500Body mass index (BMI) [Ratio]25.79 kg/l7GmaoucRd Qureshi MD Work Phone: [facility]11-29-2024 16:26-0500Body colvol91.31 kgRd Qureshi MD Work Phone: [place] [address]-29-2024 16:26-0500Diastolic blood ovkcbdid06 mm[Hg]Rd Qureshi MD Work Phone: [facility]11-29-2024 16:26-0500Heart rate55 /min Rd Qureshi MD Work Phone: [facility]11-29-2024 16:26-0500Systolic blood mm[Hg]Rd Qureshi MD Work Phone: [facility]10-11-2024 10:15-0400Body qbvsdu326.1 cmRebecca Reay CUBE CUTTER.CABLE DISPATCHER Work Phone: [phone]10-11-2024 10:15-0400Body mass index (BMI) [Ratio]26.01 kg/u2Zmqbjkp Reay CUBE CUTTER.CABLE DISPATCHER Work Phone: [phone]10-11-2024 10:15-0400Body blrofu00.9 kgRebecca Reay CUBE CUTTER.CABLE DISPATCHER Work Phone: [phone]10-11-2024 10:15-0400Diastolic blood eszmmtke13 mm[Hg]Compa Reay CUBE CUTTER.CABLE DISPATCHER Work Phone: [phone]10-11-2024 10:15-0400Heart rate69 /min Compa Reay CUBE CUTTER.CABLE DISPATCHER Work Phone: [phone]10-11-2024 10:15-8589VaH4% (BldA) [Mass fraction]97 %Compa Reay CUBE CUTTER.CABLE DISPATCHER Work Phone: [phone]10-11-2024 10:15-0400Systolic blood dkkeqyej168 mm[Hg]Compa Reay CUBE CUTTER.CABLE DISPATCHER Work Phone: [facility]09-03-2024 14:40-0400Diastolic blood otbycfvl60 mm[Hg][facility]09-03-2024 14:40-0400Heart rate79 /minTransesophageal [facility]09-03-2024 14:40-0400Respiratory rate16 /minTransesophageal [facility]09-03-2024 14:40-8527TaK8% (BldA) [Mass fraction]91 %[facility]09-03-2024 14:40-0400 Systolic blood lduzocxq148 mm[Hg][facility]09-03-2024 12:24-0400Body hlzkfhfffpu99.7 [degF][facility] 02-04-2024 16:16-0400Body wvedte436.1 Gabrielle Mendoza MD Work Phone: [facility]08-29-2024 16:16-0400Body mass index (BMI) [Ratio]26.38 kg/a4OqknzhKendra Mendoza MD Work Phone: [facility]08-29-2024 16:16-0400Body rnaaky19.89 kgKendra Mendoza MD Work Phone: [facility]08-29-2024 16:16-0400Diastolic blood oubvygxb35 mm[Hg]Kendra Mendoza MD Work Phone: [facility]08-29-2024 16:16-0400Heart rate88 /min Kendra Mendoza MD Work Phone: [facility]08-29-2024 16:16-8714RfL8% (BldA) [Mass fraction]96 %Kendra Mendoza MD Work Phone: [facility]08-29-2024 16:16-0400Systolic blood lvhmkfao248 mm[Hg]Kednra Mendoza MD Work Phone: [facility]07-19-2024 10:57-0400Body .1 cmAvelina Chowdhury MD Work Phone: [facility]07-19-2024 10:57-0400 Body mass index (BMI) [Ratio]27.79 kg/m9LeihelAvelina Chowdhury MD Work Phone: [facility]07-19-2024 10:57-0400 Body ekigsy85.75 kgAvelina Chowdhury MD Work Phone: [facility]07-19-2024 10:57-0400 Diastolic blood mm[Hg]Avelina Chowdhury MD Work Phone: [facility]07-19-2024 10:57-0400 Heart xiha879 /minAvelina Chowdhury MD Work Phone: [facility]07-19-2024 10:57-0400 Systolic blood mm[Hg]Avelina Chowdhury MD Work Phone: [facility]08-23-2023 13:33-0400 Body xldojl981.64 cmDougusha Ziegler Hoy Work Phone: [phone]-Qbkvq [facility] [address] DO Work Phone: 1(558)[phone] 13:33-0400Body mass index (BMI) [Ratio] 27.92 kg/v3Dtcbqjn M Hoy Work Phone: [phone]-Aeqfz [facility] [address] DO Work Phone: [phone] 13:33-0400Body surface area Derived from formula1.88 n1Kzsbmpz M Hoy Work Phone: [phone]-Wygqu [facility] [address] DO Work Phone: 1([phone] 13:33-0400Body wegdbo73.47 kgDougusha Ziegler Hoy Work Phone: [phone]-Iqkrj [facility] DO Work Phone: 1([phone])[phone] 13:33-0400Diastolic blood nwjxiatb35 mm[Hg] Samantha Toney Hoy Work Phone: [phone]-Phljm [facility] DO Work Phone: 1([phone] 13:33-0400Diastolic blood wwvvojkx34 mm[Hg] Samantha Toney Hoy Work Phone: [phone]-Krrub [facility] [address] DO Work Phone: 1([phone])[phone] 13:33-0400Diastolic blood nzuebxwx29 mm[Hg] Samantha M Hoy Work Phone: [phone]-Cfevy [facility] DO Work Phone: 1(528)[phone] 13:33-0400Heart rate84 /minDouglas M Hoy Work Phone: [phone]-Dxxen [facility] [address] DO Work Phone: 1([phone])[phone] 13:33-0400Systolic blood wledhmqj220 mm[Hg] Samantha M Hoy Work Phone: [phone]-Aijmj [facility] DO Work Phone: 1(024)[phone] 13:33-0400Systolic blood lfpyylpl374 mm[Hg] Samantha M Hoy Work Phone: 1([phone]-Tbngo [facility] [address] DO Work Phone: 1(612)[phone] 13:33-0400Systolic blood bfqymntp584 mm[Hg] Samantha M Hoy Work Phone: 1([phone]-Hmwza [facility] [address] DO Work Phone: 1(858)[phone] 13:33-595170 1Douglas M Hoy Work Phone: 1(065)[phone]-Ojktm [facility] DO Work Phone: Comment on above:MTYBygjJa24-91-5320 13:33-803798 1 Samantha M Hoy Work Phone: 1(131)[phone]-Ecusf [facility] DO Work Phone: Comment on above:CTNPpsfJbr06-29-3240 13:33-754945 1 Samantha M Hoy Work Phone: [phone]-Zujsk [facility] [address] DO Work Phone: Comment on above:PMEZxlmPn04-64-8397 13:28-0400Body ditsoi754.64 cmDouglas M Hoy Work Phone: [phone]-Ahxch [facility] [address] DO Work Phone: 1(535) 312-283908-23-2023 13:28-0400Body mass index (BMI) [Ratio] 27.92 kg/k6Qrcxhll M Hoy Work Phone: [phone])[phone]-Dvvmj [facility] DO Work Phone: 1(665)[phone]028 13:28-0400Body surface area Derived from formula1.88 y2Emcgzdd M Hoy Work Phone: [phone]-Puyfh [facility] [address] DO Work Phone: 1(346) 645-949608-23-2023 13:28-0400Body oetlyu59.47 kgDoandres Ziegler Hoy Work Phone: 1([phone]-Ndmxl [facility] [address] DO Work Phone: 1(106) 819-901408-23-2023 13:28-0400Diastolic blood cqslmipy06 mm[Hg] Samantha Toney [place] Work Phone: 1([phone]-Rhnzo [facility] [address] DO Work Phone: 1(785)[phone]25 13:28-0400Heart rate91 /minDouglas Toney Hoy Work Phone: [phone]-Swjht [facility] [address] DO Work Phone: 1(677) 129-894808-23-2023 13:28-0400Systolic blood tervfxqz730 mm[Hg] Samantha M Hoy Work Phone: 1([phone]-Qzqdz [facility] DO Work Phone: 1(329) 633-784506-26-2023 13:03-0400Diastolic blood mm[Hg] Samantha M Hoy Work Phone: [phone]-Vytiukujcn[facility] [address] DO Work Phone: 1(699) 204-231906-26-2023 13:03-0400Systolic blood bgehtltl238 mm[Hg] Samantha M Hoy Work Phone: 1([phone]-Oexilxrsdv-[place] [address] DO Work Phone: 1(577) 451-255106-26-2023 12:48-0400Body viwfsr153.64 cmDouglas M Hoy Work Phone: 1(641)[phone]-Mnptaadjnv-[place] 250 DO Work Phone: 1(948) 610-899206-26-2023 12:48-0400Body mass index (BMI) [Ratio] 28.41 kg/j6Omdqacn M Hoy Work Phone: 1(263)[phone]-Lrpayiazqt-[place] 250 DO Work Phone: 1(919) 541-519206-26-2023 12:48-0400Body surface area Derived from formula1.89 s3Salguta M Hoy Work Phone: 1(635)[phone]-Mizvutxcrm[facility] [address] DO Work Phone: 1(805) [phone] 12:48-0400Body uyhafc69.83 kgDouglas M Hoy Work Phone: 1([phone]-Kytvdpkdwh-[place] 250 DO Work Phone: 1(126) [phone] 12:48-0400Diastolic blood rjyfofxg36 mm[Hg] Samantha M Hoy Work Phone: 1([phone]-Jqtalancoi-[place] 250 DO Work Phone: 1(341) 253-875006-26-2023 12:48-0400Heart rate76 /minDouglas M Hoy Work Phone: 1(694)[phone]-Bboaalqmdx-[place] [address] DO Work Phone: 1(661) 262-180006-26-2023 12:48-0400Systolic blood ohkdkrup67 mm[Hg] Samantha M Hoy Work Phone: 1(779)[phone]-Cppqcokbwa-[place] 250 DO Work Phone: 1(543) 911-870705-30-2023 07:53-198586 1Douglas M Hoy Work Phone: 1(604)[phone]-Rvzaa [facility] DO Work Phone: Comment on above:[id number] 10:01-0400Body jdxlpi237.26 cmDouglas M Hoy Work Phone: 1(908)[phone]-Rgahv [facility] DO Work Phone: 1(354) 414-747205-19-2023 10:01-0400Body mass index (BMI) [Ratio] 26.58 kg/w2OldmctoSamantha Maya Work Phone: [phone]-Vzuct [facility] DO Work Phone: 1(269) 188-535205-19-2023 10:01-0400Body surface area Derived from formula1.98 x1FukcipaSamantha Maya Work Phone: 1([phone]-Qcmgd [facility] DO Work Phone: 1(462) 528-618305-19-2023 10:01-0400Body mukjck11.65 kgDoandres Ziegler Hoy Work Phone: 1(066)[phone]-Aatqh [facility] DO Work Phone: 1(504) 607-648405-19-2023 10:01-0400Diastolic blood byeytadn66 mm[Hg] Samantha Maya Work Phone: [phone]-Pkfbx [facility] DO Work Phone: 1(355) [phone] 10:01-0400Heart rate84 /minDouglas Toney [place]oy Work Phone: 1([phone]-Znksc [facility] DO Work Phone: 1(906) 513-327405-19-2023 10:01-0400Systolic blood hbnywnzy130 mm[Hg] Samantha Maya Work Phone: 1([phone]-Bqjxi [facility] DO Work Phone: Encounters Encounter DateEncounter TypeCare ProviderFacilityStart: 50-51-4208npbdukiygt Alysha J GaleaFacility:EU kStart: 01-02-2025 End: 42-36-8128cnxdpgbrebYLQAUFR NKANSAH-AMANKRAFacility:EU NorkStart: 01-02-2025 End: 86-92-3651Qrcuczz encounter procedureMIKE SLADE [facility] Start: 12-14-2024 End: 54-86-0581Gntrtbzwe encounterAriana Valles MD Work Phone: cardiologyComment on above:Schedule Surgery (PVI ablation+ Watchman implant)Start: 12-05-2024 End: 27-07-2739Giuellp encounter procedureKendra Mendoza MD Work Phone: CardiologyComment on above:Chronic diastolic heart failure (HCC) (Primary Dx); Non-rheumatic mitral regurgitation; Complex medical condition; Paroxysmal atrial fibrillation (HCC); Cardiomyopathy, nonischemic (HCC); History of partial colectomy; History of gastrointestinal bleeding; Carpal tunnel syndrome, unspecified laterality; Tachycardia induced cardiomyopathy (HCC); Essential hypertension, benign; Other hyperlipidemiaStart: 12-05-2024 End: 67-36-3899avvrkfvriwEDSJXX M HSICHFacility[facility] Daytontart: 12-05-2024 End: 15-71-9228ayfcovkbqcCNULJZ M HSICHFacility:[facility] Day[facility]art: 10-06-2024 End: 50-90-5358Jaemxo Jose Porter MD Work Phone: Hematology/OncologyComment on above:Monoclonal gammopathy (Primary Dx)Start: 10-03-2024 End: 45-02-4540fuqjvqvtkcMCFJD N VALENTFacility:[facility] Daytontart: 10-03-2024 End: 07-64-7965Frbxmdw encounter Zachery Hutton MD Work Phone: CardiologyComment on above:Chronic diastolic heart failure (HCC) (Primary Dx); PAF (paroxysmal atrial fibrillation) (HCC); Non-rheumatic mitral regurgitationMonoclonal gammopathy (Primary Dx)Start: 10-03-2024 End: 10-75-8271tlukczqvzqVDZGE N VALENTFacility:[facility] Daytontart: 59-07-1664zppsrjolapOFLMSMIN KOCHARFacility:[facility] Daytontart: 10-03-2024 End: 42-43-0869Smznwzogfy hospital visit by physicianSpectct3 Work Phone: Molecular ImagingComment on above:Chronic diastolic heart failure (HCC) [I50.32]Start: 92-60-2688gbbxodjnmaQUUMRNVN KOCHAR [facility]: 10-03-2024 End: 10-88-9440Vodgpirgxi hospital visit by physicianNucinjMolecular Imaging Start: 09-26-2024 End: 29-96-9942Gqjqye OnlyAriana Valles MD Work Phone: cardiologyComment on above:SOB (shortness of breath) (Primary Dx)Start: 09-20-2024 End: 41-91-6264slbrijdmteGCWDTGXP KOCHARFacility:[facility] Daytontart: 09-20-2024 End: 83-30-0832Lhhxcju encounter procedureAriana Valles MD Work Phone: cardiologyComment on above:Atrial fibrillation, persistent (HCC) (Primary Dx); Chronic diastolic heart failure (HCC); Non-rheumatic mitral regurgitation; Heart failure with reduced ejection fraction (HCC); Carpal tunnel syndrome, bilateral; 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; Gastrointestinal hemorrhage, unspecified gastrointestinal hemorrhage typeStart: 09-20-2024 End: 92-53-7607koqzyexqovFDMACFVN KOCHARFacility:[facility] Day[facility]art: 07-07-2024 End: 24-45-5188qqxmmrjrzxXBBCLMVCierra SLADEFacility:[facility] Hospitaltart: 07-07-2024 End: 15-27-6420Swkmdhq encounter procedureMIKE SLADE [facility] Start: 06-27-2024 End: 10-85-2388ocqwnaeqhtYLVWZWPCierra SLADEFacility:[facility] [place] [facility] HospitalkStart: 06-27-2024 End: 36-86-9835Whxwdwc encounter procedureMIKE SLADE [facility] Start: 06-16-2024 End: 07-08-0950Tpkazebgs to same day surgery hanoverMIKE SLADE [facility] Start: 06-16-2024 End: 25-98-1513omowkfrkamFNRULXH NKANSAH-BOOFacility:FTMCStart: 06-09-2024 End: 30-80-0277equpmfpcroSD KWABENA NKANSAH-BOOFacility:FTMCStart: 06-09-2024 End: 66-96-5951Csqhucj encounter procedureMIKE SLADE [facility] Start: 06-09-2024 End: 57-37-5468xacsxtycqzLY KWABENA NKANSAH-BOOFacility:[facility] [place]Start: 06-09-2024 End: 25-50-0065Oyghlbu encounter procedureMIKE SLADE [facility] Start: 05-24-2024 End: 79-61-3811Srozpq Jos Mendoza MD Work Phone: CardiologyComment on above:Chronic systolic (congestive) heart failure (HCC) (Primary Dx)Chronic diastolic heart failure (HCC) (Primary Dx); Complex medical condition; Typical atrial flutter (HCC); Paroxysmal atrial fibrillation (HCC); Essential hypertension, benign; Cardiomyopathy, nonischemic (HCC); Other hyperlipidemia; History of partial colectomy; Chronic anticoagulationStart: 05-16-2024 End: 87-01-3549Mnijtf Raegan Qureshi MD Work Phone: CardiologyComment on above:Gastrointestinal bleeding, lower (Primary Dx); Atrial fibrillation, persistent (HCC); Atypical atrial flutter (HCC); Typical atrial flutter (HCC)Start: 05-10-2024 End: 41-66-9207Cmxtwqyyd encounterRd Qureshi MD Work Phone: CardiologyComment on above:Patient Update (Procedures) Start: 05-09-2024 End: 57-31-2607oakmbdrhlkYyiphb Z Lee MD Work Phone: CardiologyComment on above:Atrial fibrillation, persistent (HCC) (Primary Dx); Typical atrial flutter (HCC)Start: 05-09-2024 End: 29-49-9355Nyrlsyguljwf consultation with patientRd Qureshi MD Work Phone: CardiologyStart: 03-18-2024 End: 34-26-4910Pgitmol encounter procedureRebecca E Reay MONIK Work Phone: CardiologyComment on above:Chronic systolic (congestive) heart failure (HCC) (Primary Dx)Start: 03-18-2024 End: 70-98-0620hgphjmaeyzSNBKGHK E REAYFacility:[facility] Daytontart: 02-16-2024 End: 44-34-1524Qzsjtrpgu encounterKendra Mendoza MD Work Phone: CardiologyStart: 02-09-2024 End: 55-22-3965Rgsyioq encounter procedureTransesophageal Echo Card Main CardiologyComment on above:Paroxysmal atrial fibrillation (HCC)Start: 02-05-2024 End: 26-94-6256Kbzclf Aranza Talavera MD Work Phone: cardiologyComment on above:Paroxysmal atrial fibrillation (HCC) (Primary Dx)Patient Education (E[facility]- [facility]/DCC)Appointment ([facility]- [facility]/DCC)Start: 02-04-2024 End: 36-47-5124Bfwqmwk encounter procedureKendra Mendoza MD Work Phone: CardiologyComment on above:Paroxysmal atrial fibrillation (HCC) (Primary Dx); Chronic systolic (congestive) heart failure (HCC); Essential hypertension, benign; Tachycardia induced cardiomyopathy (HCC); Cardiomyopathy, nonischemic (HCC); Non-rheumatic mitral regurgitation; Other specified hypothyroidism; Other hyperlipidemia; Carpal tunnel syndrome, unspecified laterality; History of partial colectomy; History of gastrointestinal bleeding; Chronic anticoagulationStart: 02-04-2024 End: 92-73-0993Sajvcmogx encounterKendra Mendoza MD Work Phone: CardiologyStart: 01-08-2024 End: 64-95-0400irnigzyjaxIUAUID [facility] Hospitaltart: 12-31-2023 End: 41-74-6681tbejbiuwtoZKGWTE [facility] Centertart: 12-25-2023 End: 00-97-2718Iemrzc outpatient visit 25 minutesAvelina Chowdhury MD Work Phone: FirelandsComment on above:Essential hypertension, benign; Left atrial dilation; Mitral valve insufficiency, unspecified etiology; Persistent atrial fibrillation with rapid ventricular response (Multi); High risk medication use; Shortness of breath; Former smokerStart: 12-25-2023 End: 55-44-9195pfeqjzftaqKTWCVOGrady Memorial Hospital AmbulatoryStart: 05-25-2023 End: 61-84-3005kohxfbfrqtXQJREFGrady Memorial Hospital AmbulatoryStart: 01-34-9952Pgbklli encounter Tousha Ziegler Francesco Work Phone: [phone]-Mjocy [place] [facility] 250 DO Work Phone: Start: 76-53-7457bdqjnoujbxLy. Avelina Chowdhury Facility:62369Xwnfp: 72-35-4867Dqypfz outpatient visit 25 minutesSamantha Toney Francesco Work Phone: [phone]-Rgpjivdwri-[place] 250 DO Work Phone: Start: 66-65-0143gvtrzbpffnYrDr. Avelina Chowdhury Facility:024[address]Vwofj: 51-67-3052szjrcucadoLoulatoryDr. Avelina Chowdhury Facility:9090art: 10-31-2022 End: 73-46-8175brhkuovsfmNsmnmh [facility] centerFacility:[facility] Hospitaltart: 91-93-2612Iv RenewalDougusha Maya Work Phone: [phone]-Alvdq [place] [facility] 250 DO Work Phone: Start: 10-27-2022 End: 51-97-6311ggithrivzoXqfgvg [facility] centerFacility:[facility] Hospitaltart: 28-86-5672bcoorvxnoaFlRodolfo MayaFacility:[address]Dpxao: 09-16-2022 End: 79-75-6844ziepdkobcdFE SAMANTHA MAYA .Facility:D3Zayqm: 09-09-2022 End: 16-28-7720tlempueldjAU DOUGLAS HOY .Facility:E2Pgcqf: 02-14-2022 End: 24-86-3923iohnpzlyufAV DOUGLAS HOY .Facility:H9Aburu: 11-14-2021 End: 21-56-1436Rxqvfqn encounter procedureKatginny Lvein MD Work Phone: OphthalmologyComment on above: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); Epiretinal membrane (ERM) of both eyes Procedures DateProcedureProcedure DetailPerforming ClinicianStart: 06-94-0427Ue loclzj brinda spect w/ct 1 area 1 day imagingArsgarrison Valles MD Work Phone: start: 31-66-5333Rwsvpwhmglq insertion of ureteric stentMIKE SLADE Start: 20-39-6894Xktf transthorc r-t 2d w/wo m-mode rec f-up/lmtGail Mendoza MD Work Phone: Start: 77-65-8900Zli routine ecg w/least 12 lds w/i&r Avelina Chowdhury MD Work Phone: Start: 06-28-7548HYW screeningDR SAMANTHA MAYA .Comment on above:Performed By: #### PSASC ####[facility] [place] [address] [place], [place] [address]Aj. Yilan ChangStart: 11-14-2021 End: 68-70-4785Zdioecqezvum ophthalmic imaging Jay Levin MD Work Phone: Arthroplasty of kneeDouglas M Hoy Work Phone: Arthroplasty of kneeKWABENA NKANSAH-AMANKRA Bleeding (finding)MKIE NKANSAH-AMANKRA Cardiac catheterizationDouglas M Hoy Work Phone: Cataract (disorder)MIKE NKANSAH-AMANKRA Decompression of median nerveDouglas M Hoy Work Phone: Excision of colonDouglas M Hoy Work Phone: Excision of colonKWABENA NKANSAH-AMANKRA LithotripsyKWABENA NKANSAH-AMANKRA Neuroplasty and transposition of median nerve at carpal tunnelDouglas M Hoy Work Phone: Neuroplasty With Transposition Of Ulnar NerveDouglas M Hoy Work Phone: TonsillectomyDouglas M Hoy Work Phone: TonsillectomyKWABENA NKANSAH-AMANKRA Plan of Treatment DateCare ActivityDetailAuthorStart: 69-76-7856Arrmvrsx ScreeningDiabetes ScreeningCentervilletart: 13-87-3242Zpefvvdm ScreeningDiabetes Screening [facility] ClinicStart: 17-55-7159Areditjb ScreeningDiabetes ScreeningCentervilletart: 06-06-2025 End: 87-39-9276XitjmwmoibsvxmdySCUV Cardiology Routine Chronic diastolic heart failure (HCC) Expected: 06/06/2025, Expires: 12/05/2025[facility] Work Phone: Comment on above:Expected: 06/06/2025, Expires: 12/05/2025Start: 06-02-2025 End: 42-18-0809Bycduad encounter procedureVascular MedicineComment on above:DX: HEART FAILUREStart: 05-26-2025 End: 61-14-9166Owdjhteky to same day surgery akdrny3905/26/2025 1:00 PM EST - 05/26/2025 6:32 PM EST Surgery HOSP EP Lab [address] [place] [address] Ariana Valles MD [address] [place] [address] COMPRE EP EVAL ABLTJ ATR FIB PULM VEIN ISOLATIONHOLOMA LINDA [facility] EP LabComment on above:COMPRE EP EVAL ABLTJ ATR FIB PULM VEIN ISOLATIONStart: 05-26-2025 End: 75-11-2926Fqgyv evl trnsptl tx atrial fib isolat pulm veinCOMPRE EP EVAL ABLTJ ATR FIB PULM VEIN ISOLATION Atrial fibrillation, unspecified type (HCC) 05/26/2025 1:00 PM [facility] EP LABStart: 05-26-2025 End: 53-42-2063Vrwl clsr tcat l atr apndge w/endocardial implntPERC TRANSCATH CLOSURE LEFT ATRIAL APPENDAGE W/IMPLANT,INCLUSIVE OF FLUORO,TRANSEPTAL PUNCTURE,CATHPLACEMENT(S) ANGIO,WHEN PERFORMED,RAD S&I Atrial fibrillation, unspecified type (HCC) 05/26/2025 1:00 PM [facility] EP LABStart: 05-26-2025 Subsequent hospital visit by ybfizqfvg00/19/2025 1:00 PM EST Hospital Encounter HOSP EP Lab [address] [place] [address] [place] [address] [place] [address] Atrial fibrillation, unspecified type (HCC) [I48.91]HOSP EP LabComment on above: Atrial fibrillation, unspecified type (HCC) [I48.91]Start: 05-26-2025 End: 86-79-4751Rvvkqyn encounter procedureCardiologyComment on above:TO BE DONE IN THE LABPVI+WATCHMANStart: 04-28-2025 End: 33-26-1665RIK panel - Blood by Automated countCOMPLETE BLOOD COUNT Lab Routine PAF (paroxysmal atrial fibrillation) ([facility]) Expected: 04/28/2025, Ex cristy: 12/19/2025[facility] Work Phone: comment on above:Expected: 04/28/2025, Expires: 12/19/2025Start: 04-28-2025 End: 44-44-8883Ohgdnrpozqzsc metabolic 2000 panel - Serum or PlasmaCOMPREHENSIVE METABOLIC PANEL Lab Routine PAF (paroxysmal atrial fibrillation) ([facility]) Expected: 04/28/2025, Expires: 12/19/2025leveland ClinicComment on above: Expected: 04/28/2025, Expires: 12/19/2025Start: 04-28-2025 End: 81-86-2411XCOSEQP BLOOD TYPECONFIRM BLOOD TYPE Blood Bank Routine PAF (paroxysmal atrial fibrillation) ([facility]) Expected: 04/28/2025, Expires: 12/19/2025 [facility] Memorial HospitalComment on above:Expected: 04/28/2025, Expires: 12/19/2025Start: 04-28-2025 End: 54-13-4493XPJK AND SCREEN,30 DAYTYPE AND SCREEN,30 DAY Blood Bank Routine PAF (paroxysmal atrial fibrillation) ([facility]) Expected: 04/28/2025, Expires: 12/19/2025[facility]innatiand ClinicComment on above:Expected: 04/28/2025, Expires: 12/19/2025Start: 04-28-2025 End: 92-58-3418Jgurdiz encounter lpzaytzbg57/21/2025 1:30 PM EST Office Visit Cardiology [address] [place] [address] Pualette Emmanuel APRN.CABLE DISPATCHER [address] [place] [address] PVI+WATCHMANCardiologyComment on above:PVI+WATCHMANStart: 04-28-2025 End: 49-02-8741vvtsoukoaeCfnptwgvmvAdklfbe on above:PVI+WATCHMANStart: 26-04-6291Ujuuffhxw vaccinationCentervilletart: 12-27-2024 End: 09-05-8585Nretaet encounter procedureCardiologyComment on above:Dx. Atrial fibrillation, persistent (HCC)Start: 12-05-2024 End: 00-52-7864Ixovzrc encounter procedureVascular MedicineComment on above:DX: Chronic heart failure with preserved ejection fractionStart: 11-22-2024 End: 34-78-6615FziohijwxbpgaicoSDWP Cardiology Routine Chronic diastolic heart failure (HCC) Expected: 11/22/2024, Expires: 05/24/2025[facility] Work Phone: Comment on above:Expected: 11/22/2024, Expires: 05/24/2025Start: 10-10-2024 End: 31-04-7911CW Bones Complete Survey ViewsXR BONE SURVEY ROUTINE Radiology Routine Monoclonal gammopathy Expected: 10/10/2024 (Approximate), Expires: 11/02/2025[facility] Work Phone: Comment on above:Expected: 10/10/2024 (Approximate), Expires: 11/02/2025Start: 10-06-2024 End: 53-17-0006PC Bones Complete Survey ViewsXR BONE SURVEY ROUTINE Radiology Routine Monoclonal gammopathy Expected: 10/06/2024, Expires: 11/05/2025[facility] Work Phone: Comment on above:Expected: 10/06/2024, Expires: 11/05/2025Start: 10-03-2024 End: 28-26-1911Cmoulwg encounter yysqtmcgn66/28/2025 12:15 PM EDT Office Visit Cardiology [address] [place] [address] Txjawurjphs CardiologyComment on above:AmyloidosisStart: 10-03-2024 End: 76-75-2202Teguady encounter elcbpzrqa86/28/2025 10:30 AM EDT Appointment Molecular Imaging [address] [place] [address] NM SPECT/CT CARDIAC AMYLOIDMolecular ImagingComment on above:NM SPECT/CT CARDIAC AMYLOIDStart: 10-03-2024 End: 97-16-1618Muunqln encounter procedureMolecular ImagingComment on above:NM SPECT/CT CARDIAC AMYLOIDAmyloidosisStart: 09-20-2024 End: 34-54-5771Odpfijy encounter brbvyohgy58/15/2025 2:30 PM EDT Office Visit Cardiology [address] [place], [place] [id number] Ariana Valles MD [address] [place] [address] WATCHMAN CONSULTCardiologyComment on above:WATCHMAN CONSULTStart: 09-20-2024 End: 29-38-7659phyazalzzw44/15/2025 1:45 PM EDT Results Only Cardiology [address] [place], [place] [id number] EKGCardiologyComment on above:EKG Start: 30-24-7611Wstbspl Directive DiscussionAdvance Directive Discussion Centervilletart: 05-24-2024 End: 24-19-5690Lflus metabolic 2000 panel - Serum or PlasmaMccullough-Hyde Memorial Hospital Comment on above:Expected: 05/24/2024, Expires: 08/23/2024Start: 05-24-2024 End: 57-49-6142Onbtcqqaypy peptide.B prohormone N-Terminal [Mass/volume] in Serum or PlasmaFirelands Regional Medical Center South Campus Work Phone: Comment on above:Expected: 05/24/2024, Expires: 08/23/2024Start: 05-24-2024 End: 26-27-9287wvxhdqtsil12/17/2024 9:15 AM EST Results Only [address] [place] [address] [address] [place] [address] DX: Chronic systolic heart failureMain [place] [address] Draw StationComment on above:DX: Chronic systolic heart failureStart: 05-24-2024 End: 28-77-9161Aaaaesd encounter procedureVascular MedicineComment on above:DX: Chronic systolic heart failureStart: 05-09-2024 End: 99-20-6427vjbtbgxyib38/02/2024 10:45 AM EST [facility] Cardiology [address] [place] [address] Rd Qureshi MD [address] [facility] [address] [place] [address] DX: AFIB CardiologyComment on above:DX: AFIBStart: 05-06-2024 End: 73-23-3050ZpcagdphihwctjacHEWA Cardiology Routine Paroxysmal atrial fibrillation (HCC) Chronic systolic (congestive) heart failure (HCC) Expected: 05/06/2024, Expires: 02/03/2025leveland ClinicComment on above:Expected: 05/06/2024, Expires: 02/03/2025Start: 03-18-2024 End: 79-41-6228Ghxjwcr encounter procedureCardiologyComment on above:Paroxysmal atrial fibrillation (HCC) [I48.0]Start: 03-18-2024 End: 35-62-9555legiorufhy87/11/2024 8:00 AM EDT [facility] Cardiology [address] [place] [id number] Paroxysmal atrial fibrillation (HCC) [I48.0]CardiologyComment on above:Paroxysmal atrial fibrillation (HCC) [I48.0]Start: 02-24-2024 End: 98-03-1317Hkwlmwa encounter lyyrdcjeu83/18/2024 11:10 AM EDT Office Visit [place] [address] [facility] [address] [place] [address] Avleina Chowdhury MD [address] [facility] [address] [place] [address] [facility]: 02-09[facility]2024 End: 57-76-8325Gmtswavsp to same day surgery ijncap2202/09/2024 5:15 PM EDT - 02/09/2024 6:15 PM EDT Surgery HOSP EP Lab [address] [place] [address] Rd Qureshi MD [address] [place] [address] 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 EXTERNAL ELECTIVEHOSP EP LabComment on above: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 EXTERNAL ELECTIVEStart: 02-09-2024 End: 57-03-6047Bcbytxskeeujd elective arrhythmia external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 EXTERNAL ELECTIVE Persistent atrial fibrillation (HCC) 02/09/2024 5:15 PM [facility] Start: 75-62-1323Dxpmbqobkc hospital visit by zxputnpdm84/03/2024 5:15 PM EDT Hospital Encounter HOSP EP Lab [address] [place] [address] Tanisha Qureshi MD [address] [place] [address] Persistent atrial fibrillation (HCC) [I48.19]HOSP EP Lab Comment on above:Persistent atrial fibrillation (HCC) [I48.19]Start: 02-09-2024 End: 99-41-7014Hkwlovcmrwexq elective arrhythmia external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 EXTERNAL ELECTIVE Persistent atrial fibrillation (HCC) 02/09/2024 3:35 PM [facility] EP LAB Start: 02-09-2024 End: 56-56-2275Apwcbdw encounter procedureAdmittingComment on above:[facility] DCCVStart: 80-26-5637Phict-19 Vaccine ()Covid-19 Vaccine ()[facility] ClinicStart: 11-89-2560Qylot-19 Vaccine ( season)Covid-19 Vaccine ( season)Centervilletart: 02-07-2024 Influenza vaccinationInfluenza Vaccine (#1)Centervilletart: 02-04-2024 End: 53-27-4284Xsmoryokridyl metabolic 2000 panel - Serum or PlasmaCOMPREHENSIVE METABOLIC PANEL Lab STAT Paroxysmal atrial fibrillation (HCC) Chronic systolic (congestive) heart failure (HCC) Expected: 02/04/2024, Expires: 05/05/2024 [facility] ClinicComment on above:Expected: 02/04/2024, Expires: 05/05/2024Start: 02-04-2024 End: 56-23-4819Tfmjqpgbitc peptide.B prohormone N-Terminal [Mass/volume] in Serum or PlasmaNT PRO BNP Lab STAT Paroxysmal atrial fibrillation (HCC) Chronic systolic (congestive) heart failure (HCC) Expected: 02/04/2024, Expires: 05/05/2024[facility] ClinicComment on above:Expected: 02/04/2024, Expires: 05/05/2024Start: 02-04-2024 End: 43-49-6339Qzeblbzikhq [Units/volume] in Serum or PlasmaTHYROID STIMULATING HORMONE Lab Routine Paroxysmal atrial fibrillation (HCC) Chronic systolic (conge stive) heart failure (HCC) Expected: 02/04/2024, Expires: 05/05/2024[facility] ClinicComment on above:Expected: 02/04/2024, Expires: 05/05/2024Start: 01-08-2024 End: 70-67-6419Imsdojo encounter lealgowvr87/02/2024 8:45 AM EDT Appointment [facility] [address] [address] [facility] HospitalStart: 12-31-2023 End: 97-04-6584Mjtaowjluytx consultation with nnibkfe0012/31/2023 10:00 AM EDT Telemedicine [facility] [address] [place] [address] [place] [address] [place], [place] [phone] (Work) [facility] CenterElenotart: 12-25-2023 End: 29-58-4731TZ Heart TransthoracicTransthoracic Echo Complete Echocardiography Routine Left atrial dilation Mitral valve insufficiency, unspecified etiology Expected: 12/25/2023 (Approximate), Expires: 12/24/2025[facility] Service Area Work Phone: Comment on above:Expected: 12/25/2023 (Approximate), Expires: 12/24/2025Start: 23-84-0256Nwaohov Directive DiscussionAdvance Directive DiscussionCentervilletart: 82-79-4837YTK, Provider: Avelina Chowdhury, Status: Pen, Time: 9:10 AMFUV, Provider: Avelina Chowdhury, Status: Pen, Time: 9:10 NGQE-Mjelsmusrp-Hunzvjpo 250 DO Work Phone: Start: 65-50-3216Xclqo-19 Vaccine ( season) Covid-19 Vaccine ( season)Centervilletart: 03-71-6491CEA, Provider: Avelina Chowdhury, Status: Pen, Time: 1:00 PMFUV, Provider: Avelina Chowdhury, Status: Pen, Time: 1:00 PMBig[facility] 250 DO Work Phone: Start: 11-29-2022 End: 41-27-2585GVE MACULA CIRRUS OU (BOTH EYES)OCT MACULA CIRRUS OU (BOTH EYES) OPHT Imaging Routine Epiretinal membrane (ERM) of both eyes Nevus of choroid of left eye Expected: 11/29/2022, Expires: 05/08/2023[facility] Work Phone: Comment on above:Expected: 11/29/2022, Expires: 05/08/2023Start: 16-05-6136Sdezmgmgo vaccinationINFLUENZA (Season Ended) Centervilletart: 10-88-2615ORTCH-19 VACCINE (4 - Booster for Moderna series)COVID-19 VACCINE (4 - Booster for Moderna series)Centervilletart: 67-76-9238ZCCAGPW DIRECTIVE DISCUSSIONADVANCE DIRECTIVE DISCUSSIONCentervilletart: 33-55-5365POR Vaccine (1 - 1-dose 75+ series)RSV Vaccine (1 - 1- dose 75+ series)Centervilletart: 39-92-0667IPOPICTM SCREENDIABETES SCREEN Centervilletart: 65-11-0056Obxgkxfa ScreeningDiabetes ScreeningCentervilletart: 64-28-6495Iufywnjgjjik Vaccine: 65+ (1 of 1 - PCV)Pneumococcal Vaccine: 65+ (1 of 1 - PCV)Centervilletart: 87-50-6119UBPQHWRZTWBY: 65+ (1 - PCV)PNEUMOCOCCAL: 65+ (1 - PCV)Centervilletart: 04-01-2006Medicare Annual Wellness VisitMedicare Annual Wellness VisitCentervilletart: 46-34-4885TFI patients and/or patients aged 60+ years (1 - 1-dose 60+ series)RSV patients and/or patients aged 60+ years (1 - 1-dose 60+ series)[facility]: 57-47-2327HZI Vaccine (1 - 1-dose 60+ series)RSV Vaccine (1 - 1-dose 60+ series)Centervilletart: 1990 SHINGRIX VACCINE (1 of 2)SHINGRIX VACCINE (1 of 2)Centervilletart: 04-07-0828Htcsbt Vaccines (1 of 2)Zoster Vaccines (1 of 2)[facility]: 45-77-9032BOvM/Tdap/Td Vaccines (1 - Tdap)DTaP/Tdap/Td Vaccines (1 - Tdap)[facility]: 09-29-1959 Pneumococcal Vaccine: 50+ (1 of 2 - PCV)Pneumococcal Vaccine: 50+ (1 of 2 - PCV) Centervilletart: 03-66-1534Fmznr microalbumin profileMccullough-Hyde Memorial Hospital Start: 91-97-8514Mmcypgc ScreeningAnxiety ScreeningCentervilletart: 27-20-6077Jpcxmdtmmv ScreeningDepression ScreeningCentervilletart: 21-51-2347Ougukzvzaynq Vaccine: 65+ (1 of 2 - PCV)Pneumococcal Vaccine: 65+ (1 of 2 - PCV)Centervilletart: 18-27-4151Vsjkfvqojbev Vaccine: 65+ Years (1 of 2 - PCV)Pneumococcal Vaccine: 65+ Years (1 of 2 - PCV)[facility]: 32-57-5587Fflql panelLipid PanelUnSt. Rita's Hospital: 04-23-1941Medicare Annual Wellness VisitMedicare Annual Wellness Visit (AWV)Premier HealthCardioversion elective arrhythmia internal spx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, ELECTIVE, ELECTRICAL Cardiology Routine Paroxysmal atrial fibrillation (HCC) Ordered: 02/04/2024[facility] Work Phone: Comment on above:Ordered: 02/04/2024 End: 39-83-4396TTR COMPLETEECG COMPLETE ECG Routine Paroxysmal atrial fibrillation (HCC) 1 Occurrences starting 02/05/2024 until 5CThe [facility] Work Phone: comment on above:1 Occurrences starting 02/05/2024 until 02/04/2025 End: 57-75-8322QXW COMPLETEECG COMPLETE ECG Routine SOB (shortness of breath) 1 Occurrences starting 09/26/2024 until 09/26/2025[facility] Work Phone: comment on above:1 Occurrences starting 09/26/2024 until 09/26/2025 End: 12-70-9313JNC COMPLETEECG COMPLETE ECG Routine PAF (paroxysmal atrial fibrillation) (HCC) 1 Occurrences starting 12/19/2024 until 12/19/2025leveland ClinicComment on above:1 Occurrences starting 12/19/2024 until 12/19/2025 End: 70-36-4331MIRW TRANSESOPHAGEALECHO TRANSESOPHAGEAL Cardiology Routine Paroxysmal atrial fibrillation (HCC) 1 Occurrences ceynzyrw04/29/2024 until 02/03/2025leveland ClinicComment on above:1 Occurrences starting 02/04/2024 until 02/03/2025 End: 79-51-7607BSWF TRANSESOPHAGEALECHO TRANSESOPHAGEAL Cardiology Routine PAF (paroxysmal atrial fibrillation) (HCC) 1 Occurrences starting 12/19/2024 until 12/19/2025leveland ClinicComment on above:1 Occurrences starting 12/19/2024 until 12/19/2025 End: 69-84-3465KQJAU Heart for infarct W Tc-99m PYP IVNM SPECT/CT CARDIAC AMYLOID Radiology Routine Chronic diastolic heart failure (HCC) [address] arting 09/20/2024 until 10/20/2025[facility] Work Phone: comment on above:1 Occurrences starting 09/20/2024 until 10/20/2025 Immunizations Immunization DateImmunizationNotesCare JxbgswbmWvbyowsa62-84-7334Zaimjay COVID- 19 Vaccine 100 MCG/0.5ML Intramuscular SuspensionDouglas M Hoy Work Phone: [phone]-AkfrlBigfork Valley Hospital 250 DO Work Phone: [phone] COVID-19 Vaccine 100 MCG/0.5ML Intramuscular SuspensionDouglas M Hoy Work Phone: [phone]-KmjumBigfork Valley Hospital 250 DO Work Phone: [phone] COVID-19 Vaccine 100 MCG/0.5ML Intramuscular SuspensionDouglas M Hoy Work Phone: [phone]-YehxwBigfork Valley Hospital 250 DO Work Phone: [phone]y virus vaccine, unspecified formulationDouglas M Hoy Work Phone: [phone]-JllcbBigfork Valley Hospital 250 DO Work Phone: [phone]ufze virus vaccine, unspecified formulationDouglas M Hoy Work Phone: [phone]-EimhqBigfork Valley Hospital 250 DO Work Phone: [phone], high dose seasonal, preservative-freeDouglas M Hoy Work Phone: [phone]-LoejiBigfork Valley Hospital 250 DO Work Phone: Payers DatePayer CategoryPayerPolicy [id number] Health [id number] O MEDICARE SUPPLEMENT [id number] 2020-Present [phone] [address] [place] [address] [id number] 2020Unknown2006Medicare [id number] [id number] 1960 [id number] 2.16.840.1.514528.3.579.2.593 [id number] 2.16.840.1.041217.3.57[id number] 2.16.840.1.559030.3.57[id number] 2.16.840.1.483663.3.57[id number] 2.16.840.1.600964.3.579.2.36[id number] 2.16.840.1.486395.3.579.[id number] 2.16.840.1.350029.3.57[id number] 2.16.840.1.906750.3.579.2.[id number] 2.16.840.1.973045.3.579.2.328[id number] 2.16.840.1.788514.3.57[id number] 2.16.840.1.115811.3.579.[id number] 2.16.840.1.280633.3.579.2.99527-11-3469Ejztmrm50969485 2..840.1.091229.3.579.2.[id number] 2.16.840.1.424087.3.57[id number] 2..840.1.508276.3.579.[id number] 2.16.840.1.399120.3.579.[id number] 2.840.1.662988.3.57[id number] 2..840.1.4[id number] 2.0.1.721320.3.579.2.531 [id number] 2.840.1.685419.3.579.2.531 Social History DateTypeDetailFacilityStart: 12-14-2015 End: 80-24-9034Jesynxx smoking status NHISNever smoked tobaccoMccullough-Hyde Memorial Hospital Start: 12-14-2015 End: 00-26-2830Kioosvj use and exposureSmokeless tobacco non-userCentervilletart: 11-14-2021 End: 01-24-9277Cyueltw intakeCurrent drinker of alcohol (finding)Centervilletart: 54-91-7581Pfvqqdj SDOH Alcohol Commenton occCentervilletart: 90-52-2142Bbp Assigned At BirthNot on fileCentervilletart: 02-04-2024 End: 36-41-5033Xztkw a smokerNever a smokerMccullough-Hyde Memorial HospitalComment on above: COFFEE DAILY;Start: 05-25-2023 End: 78-93-0195Xsptzhk smoking status NHISEx-smokerPremier Health Work Phone: Start: 97-75-0309Ehnpfxb of tobacco useCurrent smoker [facility] Work Phone: Start: 45-38-7646Rcgjcvu of tobacco useCigarette SmokerUnBethesda North Hospital Work Phone: Start: 02-04-2024 End: 27-77-0279Mgtupwz use panelMccullough-Hyde Memorial HospitalNational Score (1-100), lower number is lower ysnq74XdcyreifeCentervilletart: 51-61-5343Kusjklz CommentSmoked as a teenager for a brief period of timeUnBethesda North Hospital Work Phone: Start: 60-57-3162Tbktyps Comment1 beer a month [facility] Work Phone: Start: 12-15-2023 End: 56-64-1554Lmbxtqhz to SARS-CoV-2 (event)Not sureUnBethesda North HospitalSexual OrientationExecutive Urology of Trihealth Start: 10-89-9669PocOpng (finding)[facility] Medical Equipment Procedure CodeEquipment CodeEquipment Original TextEquipment IdentifierDates CYSTOSCOPY RETROGRADE STENT INSERTION Unknown 06/16/24 Unknown Ureter LFDAStart: 66-64-6038CBVRGRGGYM RETROGRADE STENT INSERTION Unknown 06/16/24 Unknown Ureter L FDAStart: 48-46-0553LBODNFEWXN RETROGRADE STENT INSERTION Unknown 06/16/24 Unknown Ureter LFDAStart: 57-63-9045EANBUVIXAB RETROGRADE STENT INSERTION Unknown 06/16/24 Unknown Ureter LFDAStart: 06-16-2024 Goals DatePatient GoalDesired Activity/StatePersonal health goal Functional Status NmvuBnbnnfxspeDvyxfjCppmzeqy31-41-0272Xedpufaxet StatusN/AExecutive Urology of Trihealth01-02-2025Functional StatusN/AFProtestant Hospital01-02-2025Functional StatusN/AExecutive Urology of Trihealth09-03-2024Are you deaf, or do you have serious difficulty hearingNo 02/09/2024 4:35 PM Evelia Vaughan, DARRIAN [facility] 15-00-0460Ofz you blind, or do you have serious difficulty seeing, even when wearing glassesNo 02/09/2024 4:35 PM Evelia Vaughan RN NoCPremier HealthHpcutm38-65-7902Ef you have serious difficulty walking or climbing stairsNo 02/09/2024 4:35 PM Evelia Vaughan, DARRIAN AjPremier HealthYaxcqz40-06-0577Lp you have difficulty dressing or bathingNo 02/09/2024 4:35 PM Evelia Vaughan, DARRIAN [id number] of a physical, mental, or emotional condition, do you have difficulty doing errands alone such as visiting a physician's office or shoppingNo 02/09/2024 4:35 PM Evelia Vaughan RN [facility] Mental Status [id number] of a physical, mental, or emotional condition, do you have serious difficulty concentrating, remembering, or making decisionsNo 02/09/2024 4:35 PM Evelia Vaughan, DARRIAN [facility] Clinical Notes 11-14-2021 to 01-02-2025 Note Date & [id number] Hospital Discharge instructions Patient Education 01/02/2025 10:51:38 Dietary Guidelines to Help Prevent Kidney Stones Dietary Guidelines to Help Prevent Kidney Stones Kidney stones are deposits of minerals and salts that form inside your kidneys. Your risk of developing kidney stones may be greater depending on your diet, your lifestyle, the medicines you take, and whether you have certain medical conditions. Most people can lower their risks of developing kidney stones by following these dietary guidelines. Your dietitian may give you more specific instructions depending on your overall health and the type of kidney stones you tend to develop. What are tips for following this plan? Reading food labels Choose foods with no salt added or low-salt labels. Limit your salt (sodium) intake to less than 1,500 mg a day. Choose foods with calcium for each meal and snack. Try to eat about 300 mg of calcium at each meal.Foods that contain 200 500 mg of calcium a serving include: ?8 oz (237 mL) of milk, isjdxap-gnwqdqwnaige-braoj milk, and calcium- fortifiedfruit juice. Calcium-fortified means that calcium has been added to these drinks. ?8 oz (237 mL) of kefir, yogurt, and soy yogurt. ?4 oz (114 g) of tofu. ?1 oz (28 g) of cheese. ?1 cup (150 g) of dried figs. ?1 cup (91 g) of cooked broccoli. ?One 3 oz (85 g) can of sardines or mackerel. Most people need 1,000 1,500 mg of calcium a day. Talk to your dietitian about how much calcium is recommended for you. Shopping Buy plenty of fresh fruits and vegetables. Most people do not need to avoid fruits and vegetables, even if these foods contain nutrients that may contribute to kidney stones. When shopping for convenience foods, choose: ?Whole pieces of fruit. ?Pre-made salads with dressing on the side. ?Low-fat fruit and yogurt smoothies. Avoid buying frozen meals or prepared deli foods. These can be high in sodium. Look for foods with live cultures, such as yogurt and kefir. Choose high-fiber grains, such as whole-wheat breads, oat bran, and wheat cereals. Cooking Do not add salt to food when cooking. Place a salt shaker on the table and allow each person to addtheir own salt to taste. Use vegetable protein, such as beans, textured vegetable protein (TVP), or tofu, instead of meat inpasta, casseroles, and soups. Meal planning Eat less salt, if told by your dietitian. To do this: ?Avoid eating processed or pre-made food. ?Avoid eating fast food. Eat less animal protein, including cheese, meat, poultry, or fish, if told by your dietitian. To dothis: ?Limit the number of times you have meat, poultry, fish, or cheese each week. Eat a diet free of meat at least 2 days a week. ?Eat only one serving each day of meat, poultry, fish, or seafood. ?When you prepare animal proteins, cut pieces into small portion sizes. For most meat and fish, oneserving is about the size of the palm of your hand. Eat at least five servings of fresh fruits and vegetables each day. To do this: ?Keep fruits and vegetables on hand for snacks. ?Eat one piece of fruit or a handful of berries with breakfast. ?Have a salad and fruit at lunch. ?Have two kinds of vegetables at dinner. You may be told to limit foods that are high in a substance called oxalate. These include: ?Spinach (cooked), rhubarb, beets, sweet potatoes, and [place] chard. ?Peanuts. ?Potato chips, anguillan fries, and baked potatoes with skin on. ?Nuts and nut products. ?Chocolate. If you regularly take a diuretic medicine, make sure to eat at least 1 or 2 servings of fruits or vegetables that are high in potassium each day. These include: ?Avocado. ?Banana. ?[place], prune, carrot, or tomato juice. ?Baked potato. ?Cabbage. ?Beans and split peas. Lifestyle Drink enough fluid to keep your urine pale yellow. This is the most important thing you can do. Spread your fluid intake throughout the day. If you drink alcohol: ?Limit how much you have to: ?0 1 drink a day for women who are not . ?0 2 drinks a day for men. ?Know how much alcohol is in your drink. In the [place] one drink equals one 12 oz bottle of beer (355 mL), one 5 oz glass of wine (148 mL), or one 1 oz glass of hard liquor (44 mL). Lose weight if told by your health care provider. Work with your dietitian to find an eating plan and weight loss strategies that work best for you. General information Talk to your health care provider and dietitian about taking daily supplements. Depending on your health and the cause of your kidney stones, you may be told: ?Do not take high-dose supplements of vitamin C (1,000 mg a day or more). ?To take a calcium supplement. ?To take a daily probiotic supplement. ?To take other supplements such as magnesium, fish oil, or vitamin B6. Take hsuc-tiy-ygkrzuf and prescription medicines only as told by your health care provider. These include supplements. What foods should I limit? Limit your intake of the following foods, or eat them as told by your dietitian. Vegetables Spinach. Rhubarb. Beets. Canned vegetables. Pickles. Olives. Baked potatoes with skin. Grains Wheat bran. Baked goods. Salted crackers. Cereals high in sugar. Meats and other proteins Nuts. Nut butters. Large portions of meat, poultry, or fish. Salted, precooked, or cured meats, such as sausages, meat loaves, and hot dogs. Dairy Cheeses. Beverages Regular soft drinks. Regular vegetable juice. Seasonings and condiments Seasoning blends with salt. Salad dressings. Soy sauce. Ketchup. Barbecue sauce. Other foods Canned soups. Canned pasta sauce. Casseroles. Pizza. Lasagna. Frozen meals. Potato chips. [place] fries. The items listed above may not be a complete list of foods and beverages you should limit. Contact a dietitian for more information. What foods should I avoid? Talk to your dietitian about specific foods you should avoid based on the type of kidney stones youhave and your overall health. Fruits Grapefruit. The item listed above may not be a complete list of foods and beverages you should avoid. Contact adietitian for more information. Summary Kidney stones are deposits of minerals and salts that form inside your kidneys. You can lower your risk of kidney stones by making changes to your diet. The most important thing you can do is drink enough fluid. Drink enough fluid to keep your urine pale yellow. Talk to your dietitian about how much calcium you should have each day, and eat less salt and animal protein as told by your dietitian. This information is not intended to replace advice given to you by your health care provider. Make sure you discuss any questions you have with your health care provider. Document Revised: 09/04/2022 Document Reviewed: 09/04/2022 Elsevier Patient Education 2023 [email or web address] Follow Up Care 07/07/2024 11:03:32 With:MIKE SLADE MD, URL Address: When: Unknown [facility] 07-28-2025 NotePatient Education Nephrology Dietary Guidelines to Help Prevent Kidney Stones Kidney stones are deposits of minerals and salts that form inside your kidneys. Your risk of developing kidney stones may be greater depending on your diet, your lifestyle, the medicines you take, and whether you have certain medical conditions. Most people can lower their risks of developing kidney stones by following these dietary guidelines. Your dietitian may give you more specific instructions depending on your overall health and the type of kidney stones you tend to develop. What are tips for following this plan? Reading food labels ??? Choose foods with no salt added or low-salt labels. Limit your salt (sodium) intake to lessthan 1,500 mg a day. ??? Choose foods with calcium for each meal and snack. Try to eat about 300 mg of calcium at each meal. Foods that contain 200?500 mg of calcium a serving include: ? 8 oz (237 mL) of milk, jfdqflv-hbcicpzvyvcu-ckhte milk, and calcium- fortifiedfruit juice. Calcium-fortified means that calcium has been added to these drinks. ? 8 oz (237 mL) of kefir, yogurt, and soy yogurt. ? 4 oz (114 g) of tofu. ? 1 oz (28 g) of cheese. ? 1 cup (150 g) of dried figs. ? 1 cup (91 g) of cooked broccoli. ? One 3 oz (85 g) can of sardines or mackerel. Most people need 1,000?1,500 mg of calcium a day. Talk to your dietitian about how much calcium is recommended for you. Shopping ??? Buy plenty of fresh fruits and vegetables. Most people do not need to avoid fruits and vegetables, even if these foods contain nutrients that may contribute to kidney stones. ??? When shopping for convenience foods, choose: ? Whole pieces of fruit. ? Pre-made salads with dressing on the side. ? Low-fat fruit and yogurt smoothies. ??? Avoid buying frozen meals or prepared deli foods. These can be high in sodium. ??? Look for foods with live cultures, such as yogurt and kefir. ??? Choose high-fiber grains, such as whole-wheat breads, oat bran, and wheat cereals. Cooking ??? Do not add salt to food when cooking. Place a salt shaker on the table and allow each person toadd their own salt to taste. ??? Use vegetable protein, such as beans, textured vegetable protein (TVP), or tofu, instead of meat in pasta, casseroles, and soups. Meal planning ??? Eat less salt, if told by your dietitian. To do this: ? Avoid eating processed or pre-made food. ? Avoid eating fast food. ??? Eat less animal protein, including cheese, meat, poultry, or fish, if told by your dietitian. To do this: ? Limit the number of times you have meat, poultry, fish, or cheese each week. Eat a diet free of meat at least 2 days a week. ? Eat only one serving each day of meat, poultry, fish, or seafood. ? When you prepare animal proteins, cut pieces into small portion sizes. For most meat and fish, one serving is about the size of the palm of your hand. ??? Eat at least five servings of fresh fruits and vegetables each day. To do this: ? Keep fruits and vegetables on hand for snacks. ? Eat one piece of fruit or a handful of berries with breakfast. ? Have a salad and fruit at lunch. ? Have two kinds of vegetables at dinner. ??? You may be told to limit foods that are high in a substance called oxalate. These include: ? Spinach (cooked), rhubarb, beets, sweet potatoes, and [place] chard. ? Peanuts. ? Potato chips, anguillan fries, and baked potatoes with skin on. ? Nuts and nut products. ? Chocolate. ??? If you regularly take a diuretic medicine, make sure to eat at least 1 or 2 servings of fruits or vegetables that are high in potassium each day. These include: ? Avocado. ? Banana. ? [place], prune, carrot, or tomato juice. ? Baked potato. ? Cabbage. ? Beans and split peas. Lifestyle ??? Drink enough fluid to keep your urine pale yellow. This is the most important thing you can do.Spread your fluid intake throughout the day. ??? If you drink alcohol: ? Limit how much you have to: ? 0?1 drink a day for women who are not . ? 0?2 drinks a day for men. ? Know how much alcohol is in your drink. In the [place] one drink equals one 12 oz bottle of beer (355 mL), one 5 oz glass of wine (148 mL), or one 1? oz glass of hard liquor (44 mL). ??? Lose weight if told by your health care provider. Work with your dietitian to find an eating plan and weight loss strategies that work best for you. General information ??? Talk to your health care provider and dietitian about taking daily supplements. Depending on your health and the cause of your kidney stones, you may be told: ? Do not take high-dose supplements of vitamin C (1,000 mg a day or more). ? To take a calcium supplement. ? To take a daily probiotic supplement. ? To take other supplements such as magnesium, fish oil, or vitamin B6. ??? Take owur-sil-jaiyrky and prescription medicines only as told by your health (more content not included)...[facility]07-14-2025 Telephone encounter Note* Telephone Encounter - Barbara Mcclendon RN - 12/19/2024 10:20 AM EDT Patient returned call & accepted date. SDM by Dr. Mendoza - no appointment needed. Needs OPD with EP CHIMNEY MECHANIC, ECG & Labs (CBC CMP,30 day T&S with Confirm) within 30 days prior to procedure date. Needs procedural SHARON. Medication instructions given, as indicated below. Stated understanding. Letter with instructions mailed to the patient. [facility]07-14-2025 Miscellaneous Notes* Telephone Encounter - Barbara Mcclendon RN - 12/19/2024 10:20 AM EDT Patient returned call & accepted date. SDM by Dr. Mendoza - no appointment needed. Needs OPD with EP CHIMNEY MECHANIC, ECG & Labs (CBC CMP,30 day T&S with Confirm) within 30 days prior to procedure date. Needs procedural SHARON. Medication instructions given, as indicated below. Stated understanding. Letter with instructions mailed to the patient. * Telephone Encounter - Barbara Mcclendon RN - 12/16/2024 2:29 PM EDT I reached out to patient to confirm the date. Patient asked to call back next week, by 12/20/24, with confirmation. * Telephone Encounter - Lolita Banegas RN - 12/14/2024 6:17 PM EDT Called and left message offering patient procedure date of Thursday05/26/[address] Valles. Awaiting return call and confirmation from patient. * Telephone Encounter - Lolita Banegas RN - 12/14/2024 6:17 PM EDT ----- Message from Ariana Valles MD sent at 09/26/2024 4:45 PM EDT ----- Regarding: PVI + Watchman Patient: Brandi Dalton JR EP Lab Procedure requested: Left Appendage Closure Device Watchman CPT 26065 + PVI Anticoagulation Status: Eliquis (apixaban) Requesting Physician: Ariana Valles MD Procedural Physician: Ariana Valles MD or rd qureshi (ablation and Reena for watchman) Date of last H&P or Date of upcoming H&P: 09/20/24 Indications for procedure: Atrial Fibrillation and Previous bleed Procedure time frame: Patient convenience Current Meds: Current Outpatient Medications: apixaban (ELIQUIS) 2.5 mg tab(s) Dklojtlohdovp-Lioosveg-Wmkbto (CENTRUM SILVER) tab magnesium oxide 400 mg magnesium tab lisinopril (ZESTRIL) 5 mg tabletascorbic acid, vitamin C, (VITAMIN C) 500 mg tablet acetaminophen (TYLENOL ARTHRITIS ORAL) CALCIUM C ARBONATE/VITAMIN D3 (CALCIUM + D ORAL) ZNOX/PYG/PUMPK/SAW PAL/PROST (MEN'S SAW PALMETTO FORMULA ORAL) selenium 200 mcg cap MD input Section Potential Research Patient: Yes General anesthesia needed: Yes Moderate anesthesia needed: No Patient a candidate of same day discharge: No Mapping Ablation:FARAPULSE and CARTO CT Scan needed pre-procedure: No ECHO needed pre-procedure:None Anticoagulation: Stop :Eliquis (apixaban) Stop medication: Morning of procedure Stop Antiarrhythmic: No Stop Beta Tyron/ Calcium Channel Tyron: No ASA: N/A Additional instructions:None Ariana Valles MD September 26, 2024 4:46 PM documented in [facility] encounter Note * Telephone Encounter - Barbara Mcclendon RN - 12/16/2024 2:29 PM EDT I reached out to patient to confirm the date. Patient asked to call back next week, by 12/20/24, with confirmation. [facility]07-09-2025 Telephone encounter Note* Telephone Encounter - Lolita Banegas RN - 12/14/2024 6:17 PM EDT Called and left message offering patient procedure date of Thursday05/26/[address] Valles. Awaiting return call and confirmation from patient. [facility]07-09-2025 Telephone encounter Note* Telephone Encounter - Lolita Banegas RN - 12/14/2024 6:17 PM EDT ----- Message from Ariana Valles MD sent at 09/26/2024 4:45 PM EDT ----- Regarding: PVI + Watchman Patient: Brandi Dalton JR EP Lab Procedure requested: Left Appendage Closure Device Watchman CPT 87751 + PVI Anticoagulation Status: Eliquis (apixaban) Requesting Physician: Ariana Valles MD Procedural Physician: Ariana Valles MD or rd qureshi (ablation and Kochar for watchman) Date of last H&P or Date of upcoming H&P: 09/20/24 Indications for procedure: Atrial Fibrillation and Previous bleed Procedure time frame: Patient convenience Current Meds: Current Outpatient Medications: apixaban (ELIQUIS) 2.5 mg tab(s) Ytbmexqppwthw-Dacogjlj-Yxjjhc (CENTRUM SILVER) tab magnesium oxide 400 mg magnesium tab lisinopril (ZESTRIL) 5 mg tabletascorbic acid, vitamin C, (VITAMIN C) 500 mg tablet acetaminophen (TYLENOL ARTHRITIS ORAL) CALCIUM C ARBONATE/VITAMIN D3 (CALCIUM + D ORAL) ZNOX/PYG/PUMPK/SAW PAL/PROST (MEN'S SAW PALMETTO FORMULA ORAL) selenium 200 mcg cap MD input Section Potential Research Patient: Yes General anesthesia needed: Yes Moderate anesthesia needed: No Patient a candidate of same day discharge: No Mapping Ablation:FARAPULSE and CARTO CT Scan needed pre-procedure: No ECHO needed pre-procedure:None Anticoagulation: Stop :Eliquis (apixaban) Stop medication: Morning of procedure Stop Antiarrhythmic: No Stop Beta Tyron/ Calcium Channel Tyron: No ASA: N/A Additional instructions:None Ariana Valles MD September 26, 2024 4:46 PM [facility]06-30-2025 NoteHNO ID: [id number] Author: KENDRA MENDOZA MD Service: ? Author Type: Physician Type: Progress Notes Filed: 12/05/2024 17:55 Note Text: [facility] [place] [facility] SECTION OF HEART FAILURE and CARDIAC TRANSPLANT MEDICINE OUTPATIENT VISIT DATE December 05, 2024 OUTPATIENT VISIT TYPE Established Patient PRIMARY CARE PHYSICIAN: Samantha Maya [address] [place] [address] CHIEF COMPLAINT: HF F/u NURSING INTAKE (Patient?s concerns and/or recent hospitalizations/ER visits): HF Nursing Assessment: Interim Hospitalizations and/or ER visits:06/01/2024 Chest Pain: yes, a little Skipping or irregular heartbeats: no Shortness of breath at rest: no Shortness of breath with activity: yes Cough: yes Waking up in the middle of the night gasping for air: no Lightheadedness or dizziness: no Feeling like you are going to pass out: no Actually passing out: no Poor energy level: yes Unintentional weight gain: no Unintentional weight loss: no Swelling in your legs,feet, abdomen: no Filling up quickly when you eat: no HISTORY OF PRESENT ILLNESS: Feels good. BP good from 07/07/24-12/04/24 with SBP 117/75 and HR 71 bmp Seen on 09/20/24 by EP for consideration of Watchman. EP discussed ablation, Watchman and dofetilide with procedures tentatively scheduled in Feb or Mar [address] 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 I explained the need for further lab testing and imaging. We will obtain SPEP, skeletal survey, immunoglobulins and CBC today. Clinically he does not currently have AL amyloidosis and significant ATTR in the heart has been excluded by [facility] imaging. His heart failure symptoms only occurred while he was in atrial fibrillation as well. Provided he is not anemic and does not have bone lesions, we will follow him for a monoclonal gammopathy of undetermined significance with repeat labs in about 6 months. PAST MEDICAL HISTORY Diagnosis Date Atrial fibrillation (HCC) Carpal tunnel syndrome Cataract OU Congestive heart failure (HCC) Dyslipidemia GI bleed Heart disease Hypertension Hypothyroidism Kidney stone Retinal tear 06/08/2000 OS PAST SURGICAL HISTORY Procedure Laterality Date 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 02/09/2024 PAST SURGICAL HISTORY OF 06/08/2000 Left eye Retinal detchement repair (laser) PAST SURGICAL HISTORY OF 06/08/1947 Tonsils PAST SURGICAL HISTORY OF 06/08/1967 Left pat Tend. PAST SURGICAL HISTORY OF 06/08/1975 Repair Left tricept tendent PAST SURGICAL HISTORY OF 06/08/2007 coloencetomy PAST SURGICAL HISTORY OF 06/08/2014 repair carpal tunnel LT PAST SURGICAL HISTORY OF repair carpal tunnel RT RENAL GUM MAKER STENT 06/2024 XCAPSL CTRC RMVL INSJ IO LENS PROSTH W/O ECP Left 06/08/2000 Cataract Extraction with PC IOL Parshour XCAPSL CTRC RMVL INSJ IO LENS PROSTH W/O ECP Right 09/07/2003 Cataract Extraction with PC IOL MARIVEL SOCIAL [...] No Known Allergies CURRENT MEDICATIONS: apixaban (ELIQUIS) 2.5 mg tab(s) Take 1 tablet by mouth two times a day. Htmroppaeyzod-Csfnhtte-Ntstvp (CENTRUM SILVER) tab Take 1 tablet by [...] D3 (CALCIUM + D ORAL) Take by mouth once daily. ZNOX/PYG/PUMPK/SAW PAL/PROST (MEN'S SAW PALMETTO FORMULA ORAL) Take by mouth once daily. selenium 200 mcg cap Take by mouth once daily. REVIEW OF SYSTEMS: ROS HEART FAILURE PATIENT ENTERED DATA: 05/21/2024 09/27/2024 KCCQ-12 Scores Physical Limitation Score 100 (Class I Heart Failure ) 75 (Class II Heart Failure ) Symptom Frequency Score 95.83 (Class I Heart Failure ) 87.5 (Class I Heart Failure ) Quality of Life Score 62.5 (Fair to Good Quality of Life) 50 (Fair to Good Quality of Life) Social Limitation Score 100 (Class I Heart Failure) 62.5 (Class II Heart Failure) Overall Summary Score 89.58 (Class I Heart Failure ) 68.75 (Class II Heart Failure ) 05/21/2024 09/27/2024 PHQ-9 Score 0 1 05/21/2024 (more content not included)...[facility]06-30-2025 History of Present illness Narrative* Kendra Mendoza MD - 12/05/2024 12:40 PM EDT Images from the original note were not included. [facility] [place] [facility] SECTION OF HEART FAILURE and CARDIAC TRANSPLANT MEDICINE OUTPATIENT VISIT DATE December 05, 2024 OUTPATIENT VISIT TYPE Established Patient PRIMARY CARE PHYSICIAN: Samantha Maya [address] [place] [address] CHIEF COMPLAINT: HF F/u NURSING INTAKE (Patient s concerns and/or recent hospitalizations/ER visits): HF Nursing Assessment: Interim Hospitalizations and/or ER visits:06/01/2024 Chest Pain: yes, a little Skipping or irregular heartbeats: no Shortness of breath at rest: no Shortness of breath with activity: yes Cough: yes Waking up in the middle of the night gasping for air: no Lightheadedness or dizziness: no Feeling like you are going to pass out: no Actually passing out: no Poor energy level: yes Unintentional weight gain: no Unintentional weight loss: no Swelling in your legs,feet, abdomen: no Filling up quickly when you eat: no HISTORY OF PRESENT ILLNESS: Feels good. BP good from 07/07/24-12/04/24 with SBP 117/75 and HR 71 bmp Seen on 09/20/24 by EP for consideration of Watchman. EP discussed ablation, Watchman and dofetilidewith procedures tentatively scheduled in Feb or Mar [address] 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 I explained the need for further lab testing and imaging. We will obtain SPEP, skeletal survey, immunoglobulins and CBC today.Clinically he does not currently have AL amyloidosis and significant ATTR in the heart has been excluded by [facility] imaging. His heart failure symptoms only occurred while he was in atrial fibrillation as well. Provided he is not anemic and does not have bone lesions, we will follow him for a monoclonal gammopathy of undetermined significance with repeat labs in about 6 months. PAST MEDICAL HISTORY Diagnosis Date Atrial fibrillation (HCC) Carpal tunnel syndrome Cataract OU Congestive heart failure (HCC) Dyslipidemia GI bleed Heart disease Hypertension Hypothyroidism Kidney stone Retinal tear 06/08/2000 OS PAST SURGICAL HISTORY Procedure Laterality Date 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 02/09/2024 PAST SURGICAL HISTORY OF 06/08/2000 Left eye Retinal detchement repair (laser) PAST SURGICAL HISTORY OF 06/08/1947 Tonsils PAST SURGICAL HISTORY OF 06/08/1967 Left pat Tend. PAST SURGICAL HISTORY OF 06/08/1975 Repair Left tricept tendent PAST SURGICAL HISTORY OF 06/08/2007 coloencetomy PAST SURGICAL HISTORY OF 06/08/2014 repair carpal tunnel LT PAST SURGICAL HISTORY OF repair carpal tunnel RT RENAL GUM MAKER STENT 06/2024 XCAPSL CTRC RMVL INSJ IO LENS PROSTH W/O ECP Left 06/08/2000 Cataract Extraction with PC IOL Parshour XCAPSL CTRC RMVL INSJ IO LENS PROSTH W/O ECP Right 09/07/2003 Cataract Extraction with PC IOL MARIVEL SOCIAL [...] No Known Allergies CURRENT MEDICATIONS: apixaban (ELIQUIS) 2.5 mg tab(s) Take 1 tablet by mouth two times a day. Vxquoxlfojcdw-Rcjbjowm-Zgdmty (CENTRUM SILVER) tab Take 1 tablet by [...] D3 (CALCIUM + D ORAL) Take by mouth once daily. ZNOX/PYG/PUMPK/SAW PAL/PROST (MEN'S SAW PALMETTO FORMULA ORAL) Take by mouth once daily. selenium 200 mcg cap Take by mouth once daily. REVIEW OF SYSTEMS: ROS HEART FAILURE PATIENT ENTERED DATA: 05/21/2024 09/27/2024 KCCQ-12 Scores Physical Limitation Score 100 (Class I Heart Failure ) 75 (Class II Heart Failure ) Symptom Frequency Score 95.83 (Class I Heart Failure ) 87.5 (Class I Heart Failure ) Quality of Life Score 62.5 (Fair to Good Quality of Life) 50 (Fair to Good Quality of Life) Social Limitation Score 100 (Class I Heart Failure) 62.5 (Class II Heart Failure) Overall Summary Score 89.58 (Class I Heart Failure ) 68.75 (Class II Heart Failure ) 05/21/2024 09/27/2024 PHQ-9 Score 0 1 05/21/2024 10/01/2024 PROMIS Global Health - (T-Scores - the mean of general population = 50. Five points is a clinicallymeaningful difference.) Physical T-Score 47.7 44.9 Mental T-Score 43.5 50.8 PHYSICAL EXAMINATION: BP 139/78 (BP Site: Left Arm) Pulse (!) 57 Ht 167.6 cm (5' 6 ) Wt 72.8 kg (160 lb 8 oz) SpO2 98% BMI 25.91 kg/m which is 2 lbs more than last visit General: Well appearing, in no acute distress. [...] 141, K 4.8, BUN 36, Cr 1.45 Latest Ref Rng 10/03/2024 WBC 3.70 - 11.00 k/uL 6.25 RBC 4.20 - 6.00 m/uL 4.10 (L) Hemoglobin 13.0 - 17.0 g/dL 14.0 Hematocrit 39.0 - 51.0 % 42.2 MCV 80.0 - 100.0 fL 102.9 (H) MCH 26.0 - 34.0 pg 34.1 (H) MCHC 30.5 - 36.0 g/dL 33.2 RDW-CV 11.5 - 15.0 % 13.5 Platelet Count 150 - 400 k/uL 249 MPV 9.0 - 12.7 fL 9.6 Neut% % 54.4 Abs Neut (ANC) 1.45 - 7.50 k/uL 3.40 Lymph% % 27.8 Abs Lymph 1.00 - 4.00 k/uL 1.74 [place]% % 13.6 Abs [place] <0.87 k/uL 0.85 Eosin% % 3.5 Abs Eosin <0.46 k/uL 0.22 Baso% % 0.5 Abs Baso <0.11 k/uL 0.03 Immature Gran % % 0.2 IMMATURE GRANS (ABS) <0.10 k/uL <0.03 NRBC /100 WBC 0.0 Absolute nRBC <0.01 k/uL <0.01 DTYPE Auto Protein, Total 6.3 - 8.0 g/dL 8.0 Protein, Total 6.3 - 8.0 g/dL 8.0 Albumin 3.9 - 4.9 g/dL 4.3 Calcium 8.5 - 10.2 mg/dL 10.0 Bilirubin, Total 0.2 - 1.3 mg/dL 0.4 Alkaline Phosphatase 38 - 113 U/L 85 AST 14 - 40 U/L 38 ALT 10 - 54 U/L 19 Glucose 74 - 99 mg/dL 94 BUN 9 - 24 mg/dL 28 (H) Creatinine 0.73 - 1.22 mg/dL 1.26 (H) Sodium 136 - 144 mmol/L 140 Potassium 3.7 - 5.1 mmol/L 5.2 (H) Chloride 98 - 107 mmol/L 101 CO2 22 - 30 mmol/L 28 Anion Gap 8 - 15 mmol/L 11 eGFR >=60 mL/min/1.73m 56 (L) Albumin 3.43 - 5.41 g/dL 4.52 Alpha 1 Globulin 0.18 - 0.43 g/dL 0.26 Alpha 2 Globulin 0.42 - 0.98 g/dL 0.74 Beta Globulin 0.61 - 1.17 g/dL 0.71 Gamma Globulin 0.53 - 1.51 g/dL 1.77 (H) Interpretation (Prot Electro) No definitive M protein is identified on protein electrophoresis. An M protein is identified on protein electrophoresis. ! Interpretation Comment for Protein Electrophoresis Recommend monoclonal protein analysis to furthercharacterize the M protein. M-Protein Location Gamma Fraction 1 M-Protein Concentration <=0.00 g/dL 0.86 (H) SPE Staff Review Reviewed by Mansi Kuo MD [place] Free, Serum 3.3 - 19.4 mg/L Lambda Free, Serum 5.7 - 26.3 mg/L K/L Ratio, Serum 0.26 - 1.65 MPA Result No M protein is identified. Interpretation (MPA) Staff Review ([facility]) Result (UMPA) No M protein is identified. Interpretation (UMPA) Staff Review (UMPA) Protein, Urine Random 0 - 20 mg/dL Creatinine, Ur Random (UCRR) 20.0 - 300.0 mg/dL Protein/Creat Ratio <0.15 mg/mg IgG 700 - 1,600 mg/dL 2,086 (H) IgA 70 - 400 mg/dL 51 (L) IgM 40 - 230 mg/dL 27 (L) NT Pro BNP <450 pg/mL 325 Legend: (L) Low (H) High ! Abnormal CARDIOVASCULAR MEDICINE TESTING: I have personally reviewed the Echocardiogram. ECG on 03/18/24: Diagnosis: SINUS RHYTHM WITH 1ST DEGREE AV BLOCK WITH PREMATURE VENTRICULAR COMPLEXES NONSPECIFIC ST ABNORMALITY ABNORMAL ECG Echo on 12/05/24:The left ventricle is normal in size. There is mild septal LVH, LVEF = 58 5% (2D biplane) The right ventricle is normal in size. Right ventricular systolic function is normal. 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 Exam was compared with the prior echocardiographic exam performed on 05/24/2024. Mitral regurgitation is severe. Echo05/24/24 The left ventricle is mildly dilated. There is upper septal LVH, LVEF = 56 5% (2D biplane) (2+ - 3+) MR SHARON 02/09/24: LVEF 35% with +3 MR and no URIAH thrombus. Echo 12/30/2023 SHARON 10/[address] Result Last MRI Result Cardiac amyloid test 10/03/24: Not Consistent with TTR amyloidosis IMPRESSION:84 yo man here for further evaluation and management of new onset heart failure with history of paroxysmal atrial fibrillation, hypertension, hyperlipidemia, moderate regurgitation, h/o carpal tunnel syndrome, MGUS, hypothyroidism, s/p hemicolectomy for gastrointestinal bleeding with dive rticulitis , and renal lithiasis. He has been on anticoagulation therapy for paroxysmal atrial fibrillation since March 2023 but has missed a few doses. He was feeling fine until December 2023 when he developed heart failure with shortness of breath and likely at that time had rapid atrial fibrillation (LVEF was normal in October of 2022). He was scheduled for cardioversion which did not happen and a watchman procedure was discussed. Since his heart failure symptoms progressed he was hospitalized December 28-, diagnosed with HFrEF (LVEF 30%) and given IV diuretics. At prior visit, I increased his B-tyron and arranged for cardioversion which was successfully done on 02/09/24 but due to bradycardia post-cardioversion the B-tyron was ovzqjmb23/2/24 and diuretics stopped due to hypotension. Eliquis changed by patient to 5 mg daily given + epistaxis. Dr. Qureshi suggested ablation and watchman toprevent further episodes which is being arranged.. LVEF improved to normal with rate control and therefore cause of his decline in LVEF to 30% was likely tachy-induced due to atrial fibrillation. He d oes not drink alcohol and does not snore or have sleep apnea. LHC in 2019 normal. Echo today with normal LVEF but more severe MR. Patient gardening and still asymptomatic. Will consider MV clip at next visit after procedure for afib. Currently euvolemic on examination today. NYHA Functional Class: I Stage: C heart failure PLAN AND RECOMMENDATIONS: Continue current medication Agree with ablation and consideration for watchman (Dr Ariana Valles [phone] ) Followup with me in 6 mo with echo Kendra Mendoza MD December 05, 2024 1:23 PM I personally interviewed, confirmed and edited the above information as obtained by others I personally spent 45 minutes in total time involved in the management and care of this patient. Wediscussed natural history of disease, current treatment options, and future potential treatment options. We discussed diet, exercise, other non-medical management as above. Kendra Mendoza MD [facility] Section Of Heart Failure and Cardiac Transplant Medicine Heart [facility] [place] [facility] Desk [id number] [place] [address] documented in this encounterMccullough-[facility]04-28-[facility] Instructions* Patient Instructions* Tomy Hutton MD - 10/03/2024 1:30 PM EDT -blood work today -continue to follow with Dr. Mendoza and Dr. Valles -Whole body X-rays documented in this encounterMccullough-[facility]04-28-2025 NoteHNO ID: [id number] Author: JOSE MARIA PORTER MD Service: ? Author Type: Physician Type: Progress Notes Filed: 10/05/2024 14:20 Note Text: [facility] Plasma Cell Disorder Clinic Brandi Dalton JR is a 84 year old male patient. Reason for visit: Consult, referred by Dr. Ariana Valles for possible amyloidosis. Monoclonal gammopathy. My recommendations to the consult requesting physician are communicated via the shared electronic medical record or US mail. 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 IgG kappa Related Organ or Tissue Involvement (CRAB) or other Myeloma Defining Event (MDE): None Antecedent plasma cell dyscrasia: No Myeloma FISH panel: Cytogenetics: LDH: U/L (100 - 220) ISS stage: No symptomatic myeloma, does not apply Monoclonal proteins at diagnosis: Serum M-spike: 0.86 gm/dL, Involved serum free light chains: 83.2 mg/L, and Uninvolved serum free light chains: 8.9 mg/L Total immunoglobulins at diagnosis: IgG 2086 mg/dL, IgA 51 mg/dL, IgM 27 mg/dL Bone marrow plasma cell infiltration: % Systemic treatment and disease course - Local treatments (radiation, surgery, kyphoplasty) History of present illness Mr. 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 Had developed heart failure symptoms when in atrial fibrillation. Has history of bilateral carpal tunnel syndrome. Had monoclonal protein testing as part of evaluation for amyloidosis. 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 He does not currently have symptoms of heart failure and is not in need of diuretic. PYP scan negative. NT pro BNP now normal. Review of systems General: No fever , No chills, and No night sweats HEENT: No lumps, no difficulty chewing or swallowing, no enlarging tongue, no tooth aches. Musculoskeletal: No Pain Hematological: No bleeding or easy bruising. Lymphatic / Immune system: No lymph node enlargement or infection. Cardiovascular: No orthopnea, no dyspnea, no chest pain, no leg edema, no palpitations. Pulmonary: No dyspnea, no wheezing, no cough. Gastrointestinal: No nausea, vomitting, diarrhea, constipation, abdominal pain, or blood in stool. Genitourinary: Urine output: Good, Blood in urine: no, and Urinary incontinence: none Neurological: No numbness/tingling, painful paresthesias, or weakness. Skin: No rash or pruritis. PAST MEDICAL HISTORY Diagnosis Date Atrial fibrillation (HCC) Carpal tunnel syndrome Cataract OU Congestive heart failure (HCC) Dyslipidemia GI bleed Heart disease Hypertension Hypothyroidism Kidney stone Retinal tear 06/08/2000 OS PAST SURGICAL HISTORY Procedure Laterality Date 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 02/09/2024 PAST SURGICAL HISTORY OF 06/08/2000 Left eye Retinal detchement repair (laser) PAST SURGICAL HISTORY OF 06/08/1947 Tonsils PAST SURGICAL HISTORY OF 06/08/1967 Left pat Tend. PAST SURGICAL HISTORY OF 06/08/1975 Repair Left tricept tendent PAST SURGICAL HISTORY OF 06/08/2007 coloencetomy PAST SURGICAL HISTORY OF 06/08/2014 repair carpal tunnel LT PAST SURGICAL HISTORY OF repair carpal tunnel RT RENAL GUM MAKER STENT 06/2024 XCAPSL CTRC RMVL INSJ IO LENS PROSTH W/O ECP Left 06/08/2000 Cataract Extraction with PC IOL Parshour XCAPSL CTRC RMVL INSJ IO LENS PROSTH W/O ECP Right 09/07/2003 Cataract Extraction with PC IOL MARIVEL Allergies / intolerances ALLERGIES No Known Allergies Medications apixaban (ELIQUIS) 2.5 mg tab(s) Take 1 tablet by mouth two times a day. Wfelhsfzzvjes-Nbezulfa-Cpidyu (CENTRUM SILVER) tab Take 1 tablet by [...] selenium 200 mcg cap Take by mouth. Social History Tobacco Use Smoking status: Former [...] Sister Diabetes Sister Cataract Sister Cancer Sister Physical examination There were no vitals taken for this visit. ECOG PS: 0- Fully active, able to carry on all pre-disease performance w/o restriction. General appearance: Well appearing, alert, in no acute distress, well-hydrated, (more content not included)...[facility]04-28-2025 History of Present illness Narrative* Tomy Hutton MD - 10/03/2024 1:00 PM EDT Images from the original note were not included. [facility] [place] [facility] SECTION OF HEART FAILURE and CARDIAC TRANSPLANT MEDICINE OUTPATIENT VISIT DATE October 03, 2024 OUTPATIENT VISIT TYPE Consultation PRIMARY CARE PHYSICIAN: Samantha Maya [address] [place] [address] CHIEF COMPLAINT: HFpEF, AF NURSING INTAKE (Patient s concerns and/or recent hospitalizations/ER visits): Brandi Dalton JR is a 84 year old male from [place], [place] here today for 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 Referred by Dr. Ariana Valles He has a significant medical history of CHF, HTN, Afib s/p DCCV 02/09/24, bilateral carpal tunnel, iron deficiency anemia, hypothyroid, presence of M protein He follows a regular diet and does not participates in regular exercise/activity. 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 [employer] HF Nursing Assessment: Interim Hospitalizations and/or ER visits: no Chest Pain: no Skipping or irregular heartbeats: not since DCCV Shortness of breath at rest: no Shortness of breath with activity: no Cough: yes, dry - potential allergy related Waking up in the middle of the night gasping for air: no Lightheadedness or dizziness: no Feeling like you are going to pass out: no Actually passing out: yes, many years ago (in the 70's) d/t inner ear infection Poor energy level: at times Unintentional weight gain: no Unintentional weight loss: no Swelling in your legs,feet, abdomen: no Filling up quickly when you eat: no Denies foamy/frothy urine HISTORY OF PRESENT ILLNESS: Low suspicion for cardiac amyloidosis discussed. Able to walk on flat ground. Self-propelled mower without issue. His symptoms have resolved since DCCV. PAST MEDICAL HISTORY Diagnosis Date Atrial fibrillation (HCC) Carpal tunnel syndrome Cataract OU Congestive heart failure (HCC) Dyslipidemia GI bleed Heart disease Hypertension Hypothyroidism Kidney stone Retinal tear 06/08/2000 OS PAST SURGICAL HISTORY Procedure Laterality Date 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 02/09/2024 PAST SURGICAL HISTORY OF 06/08/2000 Left eye Retinal detchement repair (laser) PAST SURGICAL HISTORY OF 06/08/1947 Tonsils PAST SURGICAL HISTORY OF 06/08/1967 Left pat Tend. PAST SURGICAL HISTORY OF 06/08/1975 Repair Left tricept tendent PAST SURGICAL HISTORY OF 06/08/2007 coloencetomy PAST SURGICAL HISTORY OF 06/08/2014 repair carpal tunnel LT PAST SURGICAL HISTORY OF repair carpal tunnel RT RENAL GUM MAKER STENT 06/2024 XCAPSL CTRC RMVL INSJ IO LENS PROSTH W/O ECP Left 06/08/2000 Cataract Extraction with PC IOL Parshour XCAPSL CTRC RMVL INSJ IO LENS PROSTH W/O ECP Right 09/07/2003 Cataract Extraction with PC IOL MARIVEL SOCIAL [...] No Known Allergies CURRENT MEDICATIONS: apixaban (ELIQUIS) 2.5 mg tab(s) Take 1 tablet by mouth two times a day. Khxpyzthzdolv-Xdtyzsyv-Pipdif (CENTRUM SILVER) tab Take 1 tablet by [...] Take by mouth. REVIEW OF SYSTEMS: CONSTITUTION: Negative for: Fever, Night sweats and Recent weight change HEENT: Positive for: Hearing loss RESPIRATORY: Positive for: Cough Negative for: Difficulty breathing GASTROINTESTINAL: Negative for: Melena, Nausea, Diarrhea, Abdominal distention and Early satiety MUSCULOSKELETAL: Positive for: Arthralgias Negative for: Myalgias NEUROLOGICAL: Negative for: Headaches and Dizziness SKIN: Negative for: Rash EYES: Negative for: Visual disturbance CARDIOVASCULAR: Negative for: Chest pain, Leg swelling, Arrhythmia and Pre-syncope GENITOURINARY: Negative for: Difficulty urinating PATIENT ENTERED DATA: 05/21/2024 09/27/2024 KCCQ-12 Scores Physical Limitation Score 100 (Class I Heart Failure ) 75 (Class II Heart Failure ) Symptom Frequency Score 95.83 (Class I Heart Failure ) 87.5 (Class I Heart Failure ) Quality of Life Score 62.5 (Fair to Good Quality of Life) 50 (Fair to Good Quality of Life) Social Limitation Score 100 (Class I Heart Failure) 62.5 (Class II Heart Failure) Overall Summary Score 89.58 (Class I Heart Failure ) 68.75 (Class II Heart Failure ) 05/21/2024 09/27/2024 PHQ-9 Score 0 1 05/21/2024 PROMIS Global Health - (T-Scores - the mean of general population = 50. Five points is a clinicallymeaningful difference.) Physical T-Score 47.7 Mental T-Score 43.5 PHYSICAL EXAMINATION: BP 156/80 (BP Site: Left Arm, BP Position: Sitting, BP Cuff Size: Regular Adult) Pulse (!) 59 Ht 165.1 cm (5' 5 ) Wt 73.8 kg (162 lb 12.8 oz) SpO2 97% BMI 27.09 kg/m No rales, JVD, no edema, regular rhythm, 2/6 [place] CARDIOVASCULAR MEDICINE TESTING: I have personally reviewed the Electrocardiogram, Laboratory Testing, and Echocardiogram. [facility] 10/03/2024 CONCLUSIONS: 1. Not Consistent with TTR amyloidosis Last SHARON Result Conclusion ECHO TRANSESOPHAGEAL Collected: 02/09/2024 1:23 PM (Final result) Impression: CONCLUSIONS: - Exam indication: Pre Cardioversion, Pre [...] * * * Final * * * Last EKG Result Conclusion ECG COMPLETE Collected: 09/20/2024 1:39 PM (Preliminary result) Impression: SINUS RHYTHM WITH SINUS ARRHYTHMIA WITH 1ST DEGREE AV BLOCK NONSPECIFIC ST ABNORMALITY ABNORMAL ECG IMPRESSION: #Chronic diastolic heart failure #Heart failure with reduced ejection fraction #HF with improved EF (tachy-induced). #Moderate MR 2+ Patient experienced heart failure symptoms prior to cardioversion on 02/09/24, which improved post-procedure. 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 TTE and clinical history of bilateral carpal tunnel are concerning for potential amyloid -currently euvolemic on exam with NYHA 1-2 symptoms #Clinical suspicion for Cardiac amyloidosis -suspect this is MGUS, PYP negative, NT-proBNP quite low, does have history of bilateral carpal tunnel. #pAF Last cardioversion on 02/09/24 with no known recurrences since then. Discussed options for maintaining sinus rhythm, including medication (dofetilide) and ablation. Consider Watchmen, ablation, Dofetilide with Dr. Valles. - HAS BLED score- 3 CHADSVASC- 4 NYHA Functional Class: II Stage: C heart failure Target weight: 162 lbs PLAN AND RECOMMENDATIONS: -blood work today -continue to follow with Dr. Mendoza and Dr. Valles -Whole body X-rays I personally interviewed, confirmed and edited the above information as obtained by others I personally spent 65 minutes in total time involved in the management and care of this patient. Wediscussed natural history of disease, current treatment options, and future potential treatment options. We discussed diet, exercise, other non-medical management as above. Toney Hutton MD [facility] Section Of Heart Failure and Cardiac Transplant Medicine Heart and V[facility] [place] [facility] Desk J3-[address] [place] [address] documented in this encounterMccullough-[facility]04-28-2025 History of Present illness Narrative* Jose Maria Porter MD - 10/03/2024 1:00 PM EDT Images from the original note were not included. [facility] Plasma Cell Disorder Clinic Brandi Dalton JR is a 84 year old male patient. Reason for visit: Consult, referred by Dr. Ariana Vlales for possible amyloidosis. Monoclonal gammopathy. My recommendations to the consult requesting physician are communicated via the shared electronic medical record or US mail. 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 IgG kappa Related Organ or Tissue Involvement (CRAB) or other Myeloma Defining Event (MDE): None Antecedent plasma cell dyscrasia: No Myeloma FISH panel: Cytogenetics: LDH: U/L (100 - 220) ISS stage: No symptomatic myeloma, does not apply Monoclonal proteins at diagnosis: Serum M-spike: 0.86 gm/dL, Involved serum free light chains: 83.2mg/L, and Uninvolved serum free light chains: 8.9 mg/L Total immunoglobulins at diagnosis: IgG 2086 mg/dL, IgA 51 mg/dL, IgM 27 mg/dL Bone marrow plasma cell infiltration: % Systemic treatment and disease course - Local treatments (radiation, surgery, kyphoplasty) History of present illness Mr. 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 Had developed heart failure symptoms when in atrial fibrillation. Has history of bilateral carpal tunnel syndrome. Had monoclonal protein testing as part of evaluation foramyloidosis. 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 He does not currently have symptoms of heart failure and is not in need of diuretic. PYP scan negative. NT pro BNP now normal. Review of systems General: No fever , No chills, and No night sweats HEENT: No lumps, no difficulty chewing or swallowing, no enlarging tongue, no tooth aches. Musculoskeletal: No Pain Hematological: No bleeding or easy bruising. Lymphatic / Immune system: No lymph node enlargement or infection. Cardiovascular: No orthopnea, no dyspnea, no chest pain, no leg edema, no palpitations. Pulmonary: No dyspnea, no wheezing, no cough. Gastrointestinal: No nausea, vomitting, diarrhea, constipation, abdominal pain, or blood in stool. Genitourinary: Urine output: Good, Blood in urine: no, and Urinary incontinence: none Neurological: No numbness/tingling, painful paresthesias, or weakness. Skin: No rash or pruritis. PAST MEDICAL HISTORY Diagnosis Date Atrial fibrillation (HCC) Carpal tunnel syndrome Cataract OU Congestive heart failure (HCC) Dyslipidemia GI bleed Heart disease Hypertension Hypothyroidism Kidney stone Retinal tear 06/08/2000 OS PAST SURGICAL HISTORY Procedure Laterality Date 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 02/09/2024 PAST SURGICAL HISTORY OF 06/08/2000 Left eye Retinal detchement repair (laser) PAST SURGICAL HISTORY OF 06/08/1947 Tonsils PAST SURGICAL HISTORY OF 06/08/1967 Left pat Tend. PAST SURGICAL HISTORY OF 06/08/1975 Repair Left tricept tendent PAST SURGICAL HISTORY OF 06/08/2007 coloencetomy PAST SURGICAL HISTORY OF 06/08/2014 repair carpal tunnel LT PAST SURGICAL HISTORY OF repair carpal tunnel RT RENAL GUM MAKER STENT 06/2024 XCAPSL CTRC RMVL INSJ IO LENS PROSTH W/O ECP Left 06/08/2000 Cataract Extraction with PC IOL Parshour XCAPSL CTRC RMVL INSJ IO LENS PROSTH W/O ECP Right 09/07/2003 Cataract Extraction with PC IOL MARIVEL Allergies / intolerances ALLERGIES No Known Allergies Medications apixaban (ELIQUIS) 2.5 mg tab(s) Take 1 tablet by mouth two times a day. Fujjlqabvaqef-Fmtzeckb-Yhcbjg (CENTRUM SILVER) tab Take 1 tablet by [...] selenium 200 mcg cap Take by mouth. Social History Tobacco Use Smoking status: Former [...] Sister Diabetes Sister Cataract Sister Cancer Sister Physical examination There were no vitals taken for this visit. ECOG PS: 0- Fully active, able to carry on all pre-disease performance w/o restriction. General appearance: Well appearing, alert, in no acute distress, well-hydrated, well nourished. HEENT: No lumps, no macroglossia, no icterus. Mucous membranes pink. Neck: Supple, no adenopathy; thyroid symmetric, normal size, no bruits Back: no pain to palpation Lungs: Lungs clear to auscultation. No wheezing, rhonchi, rales. Heart: no gallop, or rubs. Slightly irregular with II/ murmur Abdomen: Abdomen soft, non-tender. Bowel sounds normal. No masses, organomegaly Extremities: No deformities, edema, skin discoloration, clubbing or cyanosis. Good capillary refill. Musculoskeletal: No joint swelling, deformity, or tenderness Neuro: Alert and oriented x 3. Cranial nerves 2-12 grossly intact. Motor and sensation grossly intact. Gait stable. Skin: no rashes, lesions, or jaundice Plasmacytomas: No Laboratory tests No results found for: WBC , ABSNEUT , HB , PLT Glucose (mg/dL) Date Value 05/24/2024 100 02/09/2024 92 09/11/2003 105 Creatinine (mg/dL) Date Value 05/24/2024 1.32 02/09/2024 1.45 09/11/2003 1.0 Calcium (mg/dL) Date Value 09/11/2003 9.5 Calcium, Total (mg/dL) Date Value 05/24/2024 10.2 02/09/2024 9.8 No results found for: MPROTCONCENT , MSPK24 [place] Free, Serum (mg/L) Date Value 09/20/2024 83.2 Lambda Free, Serum (mg/L) Date Value 09/20/2024 8.9 MPA Result (no units) Date Value 09/20/2024 M protein is present. Interpretation (MPA) (no units) Date Value 09/20/2024 Atypical restricted bands are present in the IgG and kappa regions. Consistent with IgG kappa monoclonal gammopathy. Result (UMPA) (no units) Date Value 09/20/2024 A poorly defined region of restricted mobility is present that may represent an M protein. Amyloid organ involvement screens / follow up NT Pro BNP (pg/mL) Date Value 09/20/2024 306 05/24/2024 338 Impression and Plan IgG kappa monoclonal gammopathy: I discussed with the patient and his the finding of a monoclonal gammopathy. I explained the need for further lab testing and imaging. We will obtain SPEP, skeletal survey, immunoglobulins and CBC today. Clinically he does not currently have AL amyloidosis and significant ATTR in the heart has been excluded by [facility] imaging. His heart failure symptoms only occurred while he was in atrial fibrillation as well. Provided he is not anemic and does not have bone lesions, we will follow him for a monoclonal gammopathy of undetermined significance with repeat labs in about 6 months. Next follow-up in 6 months. Jose Maria Porter MD CC: Dr. Ariana Valles. documented in this encounterMcc[facility]04-[facility] NoteHNO ID: [id number] Author: TOMY HUTTON MD Service: ? Author Type: Physician Type: Progress Notes Filed: 10/04/2024 12:04 Note Text: [facility] [place] [facility] SECTION OF HEART FAILURE and CARDIAC TRANSPLANT MEDICINE OUTPATIENT VISIT DATE October 03, 2024 OUTPATIENT VISIT TYPE Consultation PRIMARY CARE PHYSICIAN: Samantha Maya [address] [place] [address] CHIEF COMPLAINT: HFpEF, AF NURSING INTAKE (Patient?s concerns and/or recent hospitalizations/ER visits): Brandi Dalton JR is a 84 year old male from [place], [place] here today for 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 Referred by Dr. Ariana Valles He has a significant medical history of CHF, HTN, Afib s/p DCCV 02/09/24, bilateral carpal tunnel, iron deficiency anemia, hypothyroid, presence of M protein He follows a regular diet and does not participates in regular exercise/activity. 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 [employer] HF Nursing Assessment: Interim Hospitalizations and/or ER visits: no Chest Pain: no Skipping or irregular heartbeats: not since DCCV Shortness of breath at rest: no Shortness of breath with activity: no Cough: yes, dry - potential allergy related Waking up in the middle of the night gasping for air: no Lightheadedness or dizziness: no Feeling like you are going to pass out: no Actually passing out: yes, many years ago (in the 70's) d/t inner ear infection Poor energy level: at times Unintentional weight gain: no Unintentional weight loss: no Swelling in your legs,feet, abdomen: no Filling up quickly when you eat: no Denies foamy/frothy urine HISTORY OF PRESENT ILLNESS: Low suspicion for cardiac amyloidosis discussed. Able to walk on flat ground. Self-propelled mower without issue. His symptoms have resolved since [facility]. PAST MEDICAL HISTORY Diagnosis Date Atrial fibrillation (HCC) Carpal tunnel syndrome Cataract OU Congestive heart failure (HCC) Dyslipidemia GI bleed Heart disease Hypertension Hypothyroidism Kidney stone Retinal tear 06/08/2000 OS PAST SURGICAL HISTORY Procedure Laterality Date 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 02/09/2024 PAST SURGICAL HISTORY OF 06/08/2000 Left eye Retinal detchement repair (laser) PAST SURGICAL HISTORY OF 06/08/1947 Tonsils PAST SURGICAL HISTORY OF 06/08/1967 Left pat Tend. PAST SURGICAL HISTORY OF 06/08/1975 Repair Left tricept tendent PAST SURGICAL HISTORY OF 06/08/2007 coloencetomy PAST SURGICAL HISTORY OF 06/08/2014 repair carpal tunnel LT PAST SURGICAL HISTORY OF repair carpal tunnel RT RENAL GUM MAKER STENT 06/2024 XCAPSL CTRC RMVL INSJ IO LENS PROSTH W/O ECP Left 06/08/2000 Cataract Extraction with PC IOL Parshour XCAPSL CTRC RMVL INSJ IO LENS PROSTH W/O ECP Right 09/07/2003 Cataract Extraction with PC IOL MARIVEL SOCIAL [...] No Known Allergies CURRENT MEDICATIONS: apixaban (ELIQUIS) 2.5 mg tab(s) Take 1 tablet by mouth two times a day. Xygmlcunlydnd-Peawizwh-Oukbrr (CENTRUM SILVER) tab Take 1 tablet by [...] Take by mouth. REVIEW OF SYSTEMS: CONSTITUTION: Negative for: Fever, Night sweats and Recent weight change HEENT: Positive for: Hearing loss RESPIRATORY: Positive for: Cough Negative for: Difficulty breathing GASTROINTESTINAL: Negative for: Melena, Nausea, Diarrhea, Abdominal distention and Early satiety MUSCULOSKELETAL: Positive for: Arthralgias Negative for: Myalgias NEUROLOGICAL: Negative for: Headaches and Dizziness SKIN: Negative for: Rash EYES: Negative for: Visual disturbance CARDIOVASCULAR: Negative for: Chest pain, Leg swelling, Arrhythmia and Pre-syncope GENITOURINARY: Negative for: Difficulty urinating PATIENT ENTERED DATA: 05/21/2024 09/27/2024 KCCQ-12 Scores Physical Limitation Score 100 (Class I Heart Failure ) 75 (Class II Heart Failure ) Symptom Frequency Score 95.83 (Class I Heart Failure ) 87 (more content not included)...[facility]04-28-2025 History of Present illness Narrative* Ileana Valentino Tech - 10/03/2024 7:30 AM EDT RADIOLOGY SERVICE PROGRESS NOTE SERVICE DATE: 10/03/2024 SERVICE TIME: 7:26 AM PATIENT IDENTITY VERIFICATION COMPLETED USING TWO (2) STANDARD IDENTIFIERS: Name and Date of confirmed by patient verbally and Name and Date of confirmed by identification band FALL SCREENING: Has the patient had 2 falls in the last year or 1 fall with injury or currently using an Ambulatory Assistive Device (Walker, Cane, Wheelchair, Crutches, etc.)? No PATIENT GENDER DATA: .male ALLERGIES: Reviewed and unchanged MEDICATIONS REVIEWED: Yes PATIENT RELEVANT IMPLANT DATA REVIEWED: Not Applicable PATIENT PRESENTS WITH AN IMPLANTABLE OR ATTACHED SPIRAL WINDING MACHINE HELPER: No CREATININE: Creatinine Date Value Ref Range Status 05/24/2024 1.32 (H) 0.73 - 1.22 mg/dL Final 02/09/2024 1.45 (H) 0.73 - 1.22 mg/dL Final 09/11/2003 1.0 0.7 - 1.4 mg/dL Final Estimated Glomerular Filtration Rate Date Value Ref Range Status 05/24/2024 54 (L) >=60 mL/min/1.73m Final Comment: Estimated Glomerular Filtration Rate (eGFR) is calculated using the 2020 CKD-EPI creatinine equation. This equation utilizes serum creatinine, sex, and age as parameters. The creatinine assay has traceable calibration to isotope dilution- mass spectrometry. Refer to KDIGO guidelines for clinical interpretation. In patients with unstable renal function, e.g. those with acute kidney injury, the eGFRmay not accurately reflect actual GFR. P.O.C.T. RESULTS: N/A October 03, [address] PERFORMED: No IV SITE: Ambulatory: NM only - direct IV injection in the Left antecubital site POST EXAM PIV STATUS: Discontinued PROCEDURE TYPE: NM INJECT: Cardiac Amyloid . 20.6 mCi Tc99m HDP. No other medications given.. ADMINISTRATION TIME: 724 PATIENT DISCHARGED TO: Ambulatory patient, left [place] department area. Is this a therapy: No A Diagnostic radioactive procedure has taken place, with no further precautions necessary other than routine body substance precautions. More information regarding radiation safety can be found usingthis link: [email or web address] SIGNATURE: Mary Nogueira PATIENT NAME: Brandi Dalton JR DATE: October 03, 2024 TIME: 7:26 AM PAGER/CONTACT #: documented in this encounterMccullough-[facility]04-28-2025 NoteHNO ID: [id number] Author: ILEANA VALENTINO Tech Service: ? Author Type: Technologist Type: Progress Notes Filed: 10/03/2024 07:28 Note Text: RADIOLOGY SERVICE PROGRESS NOTE SERVICE DATE: 10/03/2024 SERVICE TIME: 7:26 AM PATIENT IDENTITY VERIFICATION COMPLETED USING TWO (2) STANDARD IDENTIFIERS: Name and Date of confirmed by patient verbally and Name and Date of confirmed by identification band FALL SCREENING: Has the patient had 2 falls in the last year or 1 fall with injury or currently using an Ambulatory Assistive Device (Walker, Cane, Wheelchair, Crutches, etc.)? No PATIENT GENDER DATA: .male ALLERGIES: Reviewed and unchanged MEDICATIONS REVIEWED: Yes PATIENT RELEVANT IMPLANT DATA REVIEWED: Not Applicable PATIENT PRESENTS WITH AN IMPLANTABLE OR ATTACHED SPIRAL WINDING MACHINE HELPER: No CREATININE: Creatinine Date Value Ref Range Status 05/24/2024 1.32 (H) 0.73 - 1.22 mg/dL Final 02/09/2024 1.45 (H) 0.73 - 1.22 mg/dL Final 09/11/2003 1.0 0.7 - 1.4 mg/dL Final Estimated Glomerular Filtration Rate Date Value Ref Range Status 05/24/2024 54 (L) >=60 mL/min/1.73m? Final Comment: Estimated Glomerular Filtration Rate (eGFR) is calculated using the 2020 CKD-EPI creatinine equation. This equation utilizes serum creatinine, sex, and age as parameters. The creatinine assay has traceable calibration to isotope dilution-mass spectrometry. Refer to KDIGO guidelines for clinical interpretation. In patients with unstable renal function, e.g. those with acute kidney injury, the eGFR may not accurately reflect actual GFR. P.O.C.T. RESULTS: N/A October 03, [address] PERFORMED: No IV SITE: Ambulatory: NM only - direct IV injection in the Left antecubital site POST EXAM PIV STATUS: Discontinued PROCEDURE TYPE: NM INJECT: Cardiac Amyloid . 20.6 mCi Tc99m HDP. No other medications given.. ADMINISTRATION TIME: 07 PATIENT DISCHARGED TO: Ambulatory patient, left [place] department area. Is this a therapy: No A Diagnostic radioactive procedure has taken place, with no further precautions necessary other than routine body substance precautions. More information regarding radiation safety can be found using this link: [email or web address] SIGNATURE: Mary Nogueira PATIENT NAME: Brandi Dalton JR DATE: October 03, 2024 TIME: 7:26 AM PAGER/CONTACT #:[facility]04-15-2025 Instructions * Patient Instructions* Ariana Valles MD - 09/20/2024 3:23 PM EDT We discussed your atrial fibrillation (AFib) and treatment options: - You have done well since your cardioversion in February 2024, with no known recurrence of AFib. However, due to your history of congestive heart failure when in AFib, we discussed the importance of maintaining normal rhythm to prevent further complications. - We reviewed two treatment options to help prevent AFib recurrence: - Medication (Dofetilide): This is a twice-daily pill that requires a 3-day hospital stay to monitor for potential side effects, such as abnormal heart rhythms or a slow heart rate. If started, you would need blood work and an EKG every 3 months to ensure safety. Missing doses would require restarting the hospital monitoring process. - Ablation Procedure: This is a minimally invasive procedure performed under general anesthesia. It involves creating scar tissue in the heart to prevent abnormal electrical signals that cause AFib. The procedure takes about 3-4 hours, and you may need to stay in the hospital overnight. Recovery involves avoiding heavy lifting (over 10 pounds) for 1 week. Risks include bleeding, stroke, or heart muscle injury, each with a risk of less than 1%. - We also discussed the Watchman device, which can be placed during the ablation procedure. This device seals off the left atrial appendage, where most blood clots form in AFib. It reduces the need for long-term blood thinners. After placement, you would need to stay on Eliquis and baby aspirinfor 6 weeks, followed by baby aspirin alone for life. A follow-up transesophageal echocardiogram (SHARON) would be done 6-8 weeks after the procedure to ensure proper placement. We discussed your history of bleeding and blood thinner use: - You are currently on Eliquis 2.5 mg twice daily. You reported mild bleeding (bright red blood on toilet paper), which may be related to hemorrhoids. 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 - If the Watchman device is placed, you would transition from Eliquis to baby aspirin after 6 weeks, which has a lower bleeding risk. We discussed additional testing for amyloidosis: - Due to findings on your echocardiogram and your history of carpal tunnel syndrome, I recommend testing for amyloidosis, a condition where a protein deposits in the heart and other tissues, potentially contributing to AFib and heart stiffness. - This testing includes a specialized stress test and blood work. The stress test involves a CT-like scan with an injected tracer to detect amyloid protein in the heart. This can be scheduled at our clinic, and the results will guide further treatment decisions. Next steps: - Continue taking Eliquis 2.5 mg twice daily as prescribed. - Plan for ablation and Watchman placement in February or March 2025. The scheduling team will contact you in 3-4 weeks to confirm the date. - Schedule and complete the amyloidosis testing within the next few months. The front desk receptionist can assist with scheduling. - If you experience worsening symptoms, such as fatigue, shortness of breath, or signs of bleeding,please contact our office immediately. We will monitor your progress over the next 6 months to determine if the cardioversion remains effective. If you continue to do well, we may reassess the need for the procedure closer to the scheduled date. documented in this encounterMccull[facility]04-15-[facility] History of Present illness Narrative* Ariana Valles MD - 09/20/2024 2:30 PM EDT Images from the original note were not included. [facility] [place] [facility] Department of Cardiovascular Medicine SECTION OF CARDIAC PACING and ELECTROPHYSIOLOGY OUTPATIENT VISIT DATE September 20, 2024 OUTPATIENT VISIT TYPE ESTABLISHED PRIMARY CARE PHYSICIAN: Samantha Maya [address] [place] [address] REFERRING PHYSICIAN: No referring provider defined for this encounter. CHIEF COMPLAINT: Atrial fibrillation and consideration of Watchman HISTORY OF PRESENT ILLNESS: Mr. Dalton is a 83 year old male who presents today for follow-up visit regarding watchman placement. He was last seen in office by Dr. Qureshi 05/09/2024. His past medical history is significant for GI bleed, hypertension, hyperlipidemia, hypothyroidism, combined systolic and diastolic heart failure, Moderate MR and atrial fibrillation. He had normal coronary angiogram in 2020 and had SHARON in August 2022 which revealed moderate mitral regurgitation with normal ejection fraction and normal LV size. His reports his AF was diagnosedincidentally several years ago at which time he was started on xarelto. He was initially asymptomatic with his AF. [...] and less SOB since his DCC. He had rectal bleeding on xarelto (previous history of GI bleeding off anticoagulant), now on eliquis 2.5 bid. His most recent echo showed a recovered EF of 56%. Tikosyn, ablation, watchman and watchful waiting were discussed. He would like to discuss watchman and ablation further. They do not believe he has had any AF since his cardioversion. He is tired andshort of breath when he is out of rhythm. He denies chest pain, orthopnea, edema, palpitations, PND, lightheadedness or syncope. CHADS2-Vasc Score Breakdown 4 Total Score 2 Age >= 75 years old 1 History of CHF 1 History of hypertension PAST MEDICAL HISTORY Diagnosis Date Atrial fibrillation (HCC) Carpal tunnel syndrome Cataract OU Congestive heart failure (HCC) Dyslipidemia GI bleed Heart disease Hypertension Hypothyroidism Kidney stone Retinal tear 06/08/2000 OS PAST SURGICAL HISTORY Procedure Laterality Date 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 02/09/2024 PAST SURGICAL HISTORY OF 06/08/2000 Left eye Retinal detchement repair (laser) PAST SURGICAL HISTORY OF 06/08/1947 Tonsils PAST SURGICAL HISTORY OF 06/08/1967 Left pat Tend. PAST SURGICAL HISTORY OF 06/08/1975 Repair Left tricept tendent PAST SURGICAL HISTORY OF 06/08/2007 coloencetomy PAST SURGICAL HISTORY OF 06/08/2014 repair carpal tunnel LT PAST SURGICAL HISTORY OF repair carpal tunnel RT RENAL GUM MAKER STENT 06/2024 XCAPSL CTRC RMVL INSJ IO LENS PROSTH W/O ECP Left 06/08/2000 Cataract Extraction with PC IOL Parshour XCAPSL CTRC RMVL INSJ IO LENS PROSTH W/O ECP Right 09/07/2003 Cataract Extraction with PC IOL MARIVEL SOCIAL [...] Cancer Sister ALLERGIES: ALLERGIES No Known Allergies MEDICATIONS: apixaban (ELIQUIS) 2.5 mg tab(s) Take 1 tablet by mouth two times a day. Bzwwwbtydfogn-Olqxrvpk-Cxiace (CENTRUM SILVER) tab Take 1 tablet by [...] selenium 200 mcg cap Take by mouth. Surekha Ramires RN PHYSICAL EXAMINATION: BP 135/78 Pulse 94 Ht 165.1 cm (5' 5 ) Wt 72.1 kg (159 lb) BMI 26.46 kg/m PHYSICAL EXAMINATION: General: Well appearing, in no acute distress. Skin: No clubbing, no cyanosis. Eyes: Extra ocular movements intact Neck: No jugular venous distention, no carotid bruits, carotids have a normal upstroke Lungs: Clear to auscultation bilaterally, no wheezing or rhonchi. Heart: Regular rhythm, PMI not displaced, S1, S2 normal, no murmur. Abdomen: Soft, nontender, bowel sounds normal, Extremities: No peripheral edema . Neuro: Oriented to person, place and time, alert, cooperative, gait coordinated. CARDIOVASCULAR MEDICINE TESTING: Last ECHO Result Conclusion ECHO Collected: 05/24/2024 8:08 AM (Final result) Impression: CONCLUSIONS: - Exam indication: S/P Cardioversion - [...] - Exam was compared with the prior CC echocardiographic exam performed on 02/09/2024 (SHARON). LVEF has improved; MR better evaluated on prior SHARON. * * * Final * * * Last SHARON Result Conclusion ECHO TRANSESOPHAGEAL Collected: 02/09/2024 1:23 PM (Final result) Impression: CONCLUSIONS: - Exam indication: Pre Cardioversion, Pre [...] * * * Final * * * Last EKG Result Conclusion ECG COMPLETE Collected: 09/20/2024 1:39 PM (Preliminary result) Impression: SINUS RHYTHM WITH SINUS ARRHYTHMIA WITH 1ST DEGREE AV BLOCK NONSPECIFIC ST ABNORMALITY ABNORMAL ECG STAFF ADDENDUM HISTORY OF PRESENT ILLNESS: The patient is an 83-year-old male with a history of atrial fibrillation, heart failure with reduced ejection fraction, hypertension, hyperlipidemia, hypothyroidism, and prior GI bleeds, presenting for evaluation of atrial fibrillation management. The patient reports that his atrial fibrillation and atrial flutter worsened last year, leading to a decline in left ventricular ejection fraction (LVEF) to 30-35% and episodes of congestive heart failure (CHF) characterized by dyspnea that would awaken him from sleep. He underwent cardioversion on02/09/2024, after which his LVEF improved to 56%. Since the cardioversion, he has not experienced any known episodes of atrial fibrillation. He notes that prior to the cardioversion, he would feel more fatigued during episodes of atrial fibrillation but is not always aware when he is in atrial fibrillation. He has a history of bilateral carpal tunnel syndrome and has not been previously evaluated for cardiac amyloidosis. 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 In 2016, he experienced a lower GI bleed due to diverticulosis while not on anticoagulation. More recently, he has noticed slight rectal bleeding, described as bright red blood on toilet paper, which he attributes to possible hemorrhoids. He denies any falls but notes occas ional balance issues. He is currently taking Eliquis 2.5 mg BID and baby aspirin Current Outpatient Medications Medication Instructions acetaminophen (TYLENOL ARTHRITIS ORAL) NEEDED apixaban (ELIQUIS) 2.5 mg, ORAL, 2 TIMES DAILY ascorbic acid (vitamin C) (VITAMIN C) 500 mg, DAILY CALCIUM CARBONATE/VITAMIN D3 (CALCIUM + D ORAL) Take by mouth. lisinopril (ZESTRIL) 5 mg, DAILY magnesium oxide 400 mg, DAILY Jgsmlqdkpghgi-Pyijionm-Ugrbzm (CENTRUM SILVER) tab 1 tablet, DAILY selenium 200 mcg cap Take by mouth. ZNOX/PYG/PUMPK/SAW PAL/PROST (MEN'S SAW PALMETTO FORMULA ORAL) Take by mouth. Potassium (mmol/L) Date Value 05/24/2024 4.7 09/11/2003 4.5 Creatinine (mg/dL) Date Value 05/24/2024 1.32 09/11/2003 1.0 LV Ejection Fraction (%) Date Value 05/24/2024 56 PERTINENT RESULTS: Labs: Imaging: - Echocardiogram: Ejection fraction 30-35% subsequently improved to 56%. Moderate mitral regurgitation. Tests: - (02/09/2024) Cardioversion - EKG: Sinus rhythm with first-degree AV block, DE 236 ms. ASSESSMENT and PLAN: 1. Chronic diastolic heart failure (HCC) (I50.32) Heart failure with reduced ejection fraction (HCC) (I50.20) Patient experienced heart failure symptoms prior to cardioversion on 02/09/24, which improved post-procedure. 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 TTE and clinical history of bilateral carpal tunnel are concerning for potential amyloid - Amyloid workup sent today (kappa/lambda ratio elevated) Tech pyrophosphate scan pending - cont VANDANA - f/u Dr. Mendoza/amyloid clinic 2. Non-rheumatic mitral regurgitation (I34.0) Moderate mitral regurgitation noted on previous echocardiogram. Euvolemic on exam 3. Atrial fibrillation, persistent (HCC) (I48.19) Last cardioversion on 02/09/24 with no known recurrences since then. Discussed options for maintaining sinus rhythm, including medication (dofetilide) and ablation. - Discussed dofetilide initiation, requiring 3-day hospital stay for monitoring QT interval. - Discussed ablation procedure, including risks and benefits. - Tentatively plan for ablation and Watchman procedure in February-March pending amyloid workup - HAS BLED score- 3 CHADSVASC- 4 4.Carpal tunnel syndrome, bilateral (G56.03) - amyloid workup as above 5. USP (current) use of anticoagulants (Z79.01) Currently on Eliquis 2.5 mg BID. Previous GI bleed noted while on higher dose of Eliquis. - Continue Eliquis 2.5 mg BID. - Discussed potential transition to baby aspirin post-Watchman procedure. 6. Gastrointestinal hemorrhage, unspecified gastrointestinal hemorrhage type (K92.2) History of GI hemorrhage, including a colectomy in 2008 for ischemic colitis and a lower GI bleed in 2016 due to diverticulosis. - Monitor for any signs of recurrent bleeding. I have reviewed and verified the documentation obtained by the Fellow/Resident and participated in the dow components of medical decision making. Recording using [employer] software for draft documentation of the visit was discussed with the patient/authorized agricultural sales representative; all questions welcomed and answered. Patient/authorized agricultural sales representative agreed to proceed A copy of this note will be provided to the requesting physician by way of shared Medical record. Thank you for our visit today; it's a privilege to be part of your care. Ariana Valles MD Staff Manager [employer] [phone] (Office and Appointments) [facility] [place] [address], [address] [place] [address] documented in this encounterMccullough-[facility]04-15-2025 NoteHNO ID: [id number] Author: ARIANA VALLES MD Service: ? Author Type: Physician Type: Progress Notes Filed: 09/26/2024 16:45 Note Text: [facility] [place] [facility] Department of Cardiovascular Medicine SECTION OF CARDIAC PACING and ELECTROPHYSIOLOGY OUTPATIENT VISIT DATE September 20, 2024 OUTPATIENT VISIT TYPE ESTABLISHED PRIMARY CARE PHYSICIAN: Samantha Maya [facility] [place] [address] REFERRING PHYSICIAN: No referring provider defined for this encounter. CHIEF COMPLAINT: Atrial fibrillation and consideration of Watchman HISTORY OF PRESENT ILLNESS: Mr. Dalton is a 83 year old male who presents today for follow-up visit regarding watchman placement. He was last seen in office by Dr. Qureshi 05/09/2024. His past medical history is significant for [...] at which time he was started on xarelto. He was initially asymptomatic with his AF. [...] and less SOB since his DCC. He had rectal bleeding on xarelto (previous history of GI bleeding off anticoagulant), now on eliquis 2.5 bid. His most recent echo showed a recovered EF of 56%. Tikosyn, ablation, watchman and watchful waiting were discussed. He would like to discuss watchman and ablation further. They do not believe he has had any AF since his cardioversion. He is tired and short of breath when he is out of rhythm. He denies chest pain, orthopnea, edema, palpitations, PND, lightheadedness or syncope. CHADS2-Vasc Score Breakdown 4 Total Score 2 Age >= 75 years old 1 History of CHF 1 History of hypertension PAST MEDICAL HISTORY Diagnosis Date Atrial fibrillation (HCC) Carpal tunnel syndrome Cataract OU Congestive heart failure (HCC) Dyslipidemia GI bleed Heart disease Hypertension Hypothyroidism Kidney stone Retinal tear 06/08/2000 OS PAST SURGICAL HISTORY Procedure Laterality Date 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 02/09/2024 PAST SURGICAL HISTORY OF 06/08/2000 Left eye Retinal detchement repair (laser) PAST SURGICAL HISTORY OF 06/08/1947 Tonsils PAST SURGICAL HISTORY OF 06/08/1967 Left pat Tend. PAST SURGICAL HISTORY OF 06/08/1975 Repair Left tricept tendent PAST SURGICAL HISTORY OF 06/08/2007 coloencetomy PAST SURGICAL HISTORY OF 06/08/2014 repair carpal tunnel LT PAST SURGICAL HISTORY OF repair carpal tunnel RT RENAL GUM MAKER STENT 06/2024 XCAPSL CTRC RMVL INSJ IO LENS PROSTH W/O ECP Left 06/08/2000 Cataract Extraction with PC IOL [place] XCAPSL CTRC RMVL INSJ IO LENS PROSTH W/O ECP Right 09/07/2003 Cataract Extraction with PC IOL MARIVEL SOCIAL [...] Cancer Sister ALLERGIES: ALLERGIES No Known Allergies MEDICATIONS: apixaban (ELIQUIS) 2.5 mg tab(s) Take 1 tablet by mouth two times a day. Zyakjuyoyliug-Uftxhbxo-Eeggsx (CENTRUM SILVER) tab Take 1 tablet by [...] selenium 200 mcg cap Take by mouth. Surekha Ramires RN PHYSICAL EXAMINATION: BP 135/78 Pulse 94 Ht 165.1 cm (5' 5 ) Wt 72.1 kg (159 lb) BMI 26.46 kg/m? PHYSICAL EXAMINATION: General: Well appearing, in no acute distress. Skin: No clubbing, no cyanosis. Eyes: Extra ocular movements intact Neck: No jugular venous distention, no carotid bruits, carotid (more content not included)...[facility]01-30-2025 Hospital Discharge instructions Patient Education 07/07/2024 11:02:34 Dietary Guidelines to Help Prevent Kidney Stones Dietary Guidelines to Help Prevent Kidney Stones Kidney stones are deposits of minerals and salts that form inside your kidneys. Your risk of developing kidney stones may be greater depending on your diet, your lifestyle, the medicines you take, and whether you have certain medical conditions. Most people can lower their risks of developing kidney stones by following these dietary guidelines. Your dietitian may give you more specific instructions depending on your overall health and the type of kidney stones you tend to develop. What are tips for following this plan? Reading food labels Choose foods with no salt added or low-salt labels. Limit your salt (sodium) intake to less than 1,500 mg a day. Choose foods with calcium for each meal and snack. Try to eat about 300 mg of calcium at each meal.Foods that contain 200 500 mg of calcium a serving include: ?8 oz (237 mL) of milk, hsxsspq-gnbwbrgtlupp-wwlfl milk, and calcium- fortifiedfruit juice. Calcium-fortified means that calcium has been added to these drinks. ?8 oz (237 mL) of kefir, yogurt, and soy yogurt. ?4 oz (114 g) of tofu. ?1 oz (28 g) of cheese. ?1 cup (150 g) of dried figs. ?1 cup (91 g) of cooked broccoli. ?One 3 oz (85 g) can of sardines or mackerel. Most people need 1,000 1,500 mg of calcium a day. Talk to your dietitian about how much calcium is recommended for you. Shopping Buy plenty of fresh fruits and vegetables. Most people do not need to avoid fruits and vegetables, even if these foods contain nutrients that may contribute to kidney stones. When shopping for convenience foods, choose: ?Whole pieces of fruit. ?Pre-made salads with dressing on the side. ?Low-fat fruit and yogurt smoothies. Avoid buying frozen meals or prepared deli foods. These can be high in sodium. Look for foods with live cultures, such as yogurt and kefir. Choose high-fiber grains, such as whole-wheat breads, oat bran, and wheat cereals. Cooking Do not add salt to food when cooking. Place a salt shaker on the table and allow each person to addtheir own salt to taste. Use vegetable protein, such as beans, textured vegetable protein (TVP), or tofu, instead of meat inpasta, casseroles, and soups. Meal planning Eat less salt, if told by your dietitian. To do this: ?Avoid eating processed or pre-made food. ?Avoid eating fast food. Eat less animal protein, including cheese, meat, poultry, or fish, if told by your dietitian. To dothis: ?Limit the number of times you have meat, poultry, fish, or cheese each week. Eat a diet free of meat at least 2 days a week. ?Eat only one serving each day of meat, poultry, fish, or seafood. ?When you prepare animal proteins, cut pieces into small portion sizes. For most meat and fish, oneserving is about the size of the palm of your hand. Eat at least five servings of fresh fruits and vegetables each day. To do this: ?Keep fruits and vegetables on hand for snacks. ?Eat one piece of fruit or a handful of berries with breakfast. ?Have a salad and fruit at lunch. ?Have two kinds of vegetables at dinner. You may be told to limit foods that are high in a substance called oxalate. These include: ?Spinach (cooked), rhubarb, beets, sweet potatoes, and [place] chard. ?Peanuts. ?Potato chips, anguillan fries, and baked potatoes with skin on. ?Nuts and nut products. ?Chocolate. If you regularly take a diuretic medicine, make sure to eat at least 1 or 2 servings of fruits or vegetables that are high in potassium each day. These include: ?Avocado. ?Banana. ?[place], prune, carrot, or tomato juice. ?Baked potato. ?Cabbage. ?Beans and split peas. Lifestyle Drink enough fluid to keep your urine pale yellow. This is the most important thing you can do. Spread your fluid intake throughout the day. If you drink alcohol: ?Limit how much you have to: ?0 1 drink a day for women who are not . ?0 2 drinks a day for men. ?Know how much alcohol is in your drink. In the [place] one drink equals one 12 oz bottle of beer (355 mL), one 5 oz glass of wine (148 mL), or one 1 oz glass of hard liquor (44 mL). Lose weight if told by your health care provider. Work with your dietitian to find an eating plan and weight loss strategies that work best for you. General information Talk to your health care provider and dietitian about taking daily supplements. Depending on your health and the cause of your kidney stones, you may be told: ?Do not take high-dose supplements of vitamin C (1,000 mg a day or more). ?To take a calcium supplement. ?To take a daily probiotic supplement. ?To take other supplements such as magnesium, fish oil, or vitamin B6. Take almn-wse-spbqikx and prescription medicines only as told by your health care provider. These include supplements. What foods should I limit? Limit your intake of the following foods, or eat them as told by your dietitian. Vegetables Spinach. Rhubarb. Beets. Canned vegetables. Pickles. Olives. Baked potatoes with skin. Grains Wheat bran. Baked goods. Salted crackers. Cereals high in sugar. Meats and other proteins Nuts. Nut butters. Large portions of meat, poultry, or fish. Salted, precooked, or cured meats, such as sausages, meat loaves, and hot dogs. Dairy Cheeses. Beverages Regular soft drinks. Regular vegetable juice. Seasonings and condiments Seasoning blends with salt. Salad dressings. Soy sauce. Ketchup. Barbecue sauce. Other foods Canned soups. Canned pasta sauce. Casseroles. Pizza. Lasagna. Frozen meals. Potato chips. [place] fries. The items listed above may not be a complete list of foods and beverages you should limit. Contact a dietitian for more information. What foods should I avoid? Talk to your dietitian about specific foods you should avoid based on the type of kidney stones youhave and your overall health. Fruits Grapefruit. The item listed above may not be a complete list of foods and beverages you should avoid. Contact adietitian for more information. Summary Kidney stones are deposits of minerals and salts that form inside your kidneys. You can lower your risk of kidney stones by making changes to your diet. The most important thing you can do is drink enough fluid. Drink enough fluid to keep your urine pale yellow. Talk to your dietitian about how much calcium you should have each day, and eat less salt and animal protein as told by your dietitian. This information is not intended to replace advice given to you by your health care provider. Make sure you discuss any questions you have with your health care provider. Document Revised: 09/04/2022 Document Reviewed: 09/04/2022 [email or web address] Patient Education 2023 [employer]. Follow Up Care 06/27/2024 08:11:57 With:GEORGI TRUJILLO, MIKE, URL Address: When: Unknown [facility] 01-30-2025 NotePatient Education Nephrology Dietary Guidelines to Help Prevent Kidney Stones Kidney stones are deposits of minerals and salts that form inside your kidneys. Your risk of developing kidney stones may be greater depending on your diet, your lifestyle, the medicines you take, and whether you have certain medical conditions. Most people can lower their risks of developing kidney stones by following these dietary guidelines. Your dietitian may give you more specific instructions depending on your overall health and the type of kidney stones you tend to develop. What are tips for following this plan? Reading food labels ??? Choose foods with no salt added or low-salt labels. Limit your salt (sodium) intake to lessthan 1,500 mg a day. ??? Choose foods with calcium for each meal and snack. Try to eat about 300 mg of calcium at each meal. Foods that contain 200?500 mg of calcium a serving include: ? 8 oz (237 mL) of milk, oqfcbql-zhmvygfktziy-ohkxy milk, and calcium- fortifiedfruit juice. Calcium-fortified means that calcium has been added to these drinks. ? 8 oz (237 mL) of kefir, yogurt, and soy yogurt. ? 4 oz (114 g) of tofu. ? 1 oz (28 g) of cheese. ? 1 cup (150 g) of dried figs. ? 1 cup (91 g) of cooked broccoli. ? One 3 oz (85 g) can of sardines or mackerel. Most people need 1,000?1,500 mg of calcium a day. Talk to your dietitian about how much calcium is recommended for you. Shopping ??? Buy plenty of fresh fruits and vegetables. Most people do not need to avoid fruits and vegetables, even if these foods contain nutrients that may contribute to kidney stones. ??? When shopping for convenience foods, choose: ? Whole pieces of fruit. ? Pre-made salads with dressing on the side. ? Low-fat fruit and yogurt smoothies. ??? Avoid buying frozen meals or prepared deli foods. These can be high in sodium. ??? Look for foods with live cultures, such as yogurt and kefir. ??? Choose high-fiber grains, such as whole-wheat breads, oat bran, and wheat cereals. Cooking ??? Do not add salt to food when cooking. Place a salt shaker on the table and allow each person toadd their own salt to taste. ??? Use vegetable protein, such as beans, textured vegetable protein (TVP), or tofu, instead of meat in pasta, casseroles, and soups. Meal planning ??? Eat less salt, if told by your dietitian. To do this: ? Avoid eating processed or pre-made food. ? Avoid eating fast food. ??? Eat less animal protein, including cheese, meat, poultry, or fish, if told by your dietitian. To do this: ? Limit the number of times you have meat, poultry, fish, or cheese each week. Eat a diet free of meat at least 2 days a week. ? Eat only one serving each day of meat, poultry, fish, or seafood. ? When you prepare animal proteins, cut pieces into small portion sizes. For most meat and fish, one serving is about the size of the palm of your hand. ??? Eat at least five servings of fresh fruits and vegetables each day. To do this: ? Keep fruits and vegetables on hand for snacks. ? Eat one piece of fruit or a handful of berries with breakfast. ? Have a salad and fruit at lunch. ? Have two kinds of vegetables at dinner. ??? You may be told to limit foods that are high in a substance called oxalate. These include: ? Spinach (cooked), rhubarb, beets, sweet potatoes, and [place] chard. ? Peanuts. ? Potato chips, anguillan fries, and baked potatoes with skin on. ? Nuts and nut products. ? Chocolate. ??? If you regularly take a diuretic medicine, make sure to eat at least 1 or 2 servings of fruits or vegetables that are high in potassium each day. These include: ? Avocado. ? Banana. ? [place], prune, carrot, or tomato juice. ? Baked potato. ? Cabbage. ? Beans and split peas. Lifestyle ??? Drink enough fluid to keep your urine pale yellow. This is the most important thing you can do.Spread your fluid intake throughout the day. ??? If you drink alcohol: ? Limit how much you have to: ? 0?1 drink a day for women who are not . ? 0?2 drinks a day for men. ? Know how much alcohol is in your drink. In the [place] one drink equals one 12 oz bottle of beer (355 mL), one 5 oz glass of wine (148 mL), or one 1? oz glass of hard liquor (44 mL). ??? Lose weight if told by your health care provider. Work with your dietitian to find an eating plan and weight loss strategies that work best for you. General information ??? Talk to your health care provider and dietitian about taking daily supplements. Depending on your health and the cause of your kidney stones, you may be told: ? Do not take high-dose supplements of vitamin C (1,000 mg a day or more). ? To take a calcium supplement. ? To take a daily probiotic supplement. ? To take other supplements such as magnesium, fish oil, or vitamin B6. ??? Take cydm-oqq-bywfcpc and prescription medicines only as told by your health (more content not included)...[facility]01-09-2025 Evaluation + Plan noteExtracted from:Title:MARIAH Post-operative Note - GeneralAuthor:Mark Ly Jr., DOate:06/16/24 Plan Transfer/Discharge: Transfer/Discharge Discharge when meets criteria ( From PACU to Ambulatory Surgery Unit, and To home ). Extracted from:Title:MARIAH Pre-operative Note - AdultAuthor:Mark Ly Jr., DOate:06/16/24 Plan [place] [employer] (ASA) physical status classification: Class III. Anesthetic Preoperative Plan: Anesthesia General.[facility] [id number] Hospital Discharge instructions Patient Education 06/16/2024 09:07:13 Khbc-Xeqc-ts Utereroscopy,Lithotripsy, Stone Extraction, Stent Placement (CUSTOM) [facility] [place], [place] Dr. Kurtis Alegria Post-operative Instructions for Ureteroscopy, Laser Lithotripsy, Stone Extraction and Stent Placement There are no incisions or dressings to be concerned with, as the procedure was performed inside theurinary system. For 24 hours after surgery: No driving or operating machinery Do not make important decisions Do not consume alcohol, sleeping pills Stent Placement You may have a stent which spans the distance between your bladder and your kidney, allowing urine to pass through. It prevents blockage from swelling, kidney stones in ureter (tube connecting the kidney to the bladder), or scars. The presence of the stent may cause: Back or side pain, especially with urination Frequent or urgent urination Bladder pressure or pain Blood in urine You may pass stone debris or small blood clots, which is expected. Drinking plenty of water to dilute the urine may help. If there is a thread coming out of urinary channel, be careful not to accidently pull on this, as it is attached to the stent. The stent will most likely be removed in the office during a short procedure in which a scope is placed into the bladder, the stent is grasped and removed. At other times the stent may need to stay longer, either in preparation for other procedures or for other reasons. If it is to remain care home, however, changes of the stent are required (about every 3-4 months). Diet You may resume your normal diet, but you may want to start slowly and avoid spicy food, caffeine, carbonated beverages and alcohol, especially if you have a stent. Your diet and fluid intake may makeirritation from the stent worse. Activity You may resume your normal activities, although you should take it easy on the day of the procedure. Minimizing activity may decrease the back discomfort and irritation from the stent, if present. Medications You may resume your home medications unless instructed otherwise. Hold aspirin, ibuprofen, Coumadin (warfarin) and other blood thinners until your office visit (we will discuss when to resume these medications) Take your prescribed medications as directed, including your antibiotics. You may also be given a prescription for pain medicine or medicines to help with the bladder irritation from stent, if present. Things to watch for which would require an Emergency Room Visit (or call 911) (This is not a complete list) Fever over 101.5 degrees, with or without chills Severe bleeding Severe drug reactions with itching, hives, rash, or severe flank pain Tenderness or swelling or the calves, chest pain, or shortness of breath Please call the office to arrange for your post-operative appointment (with XRAY) [phone] 06/16/2024 09:06:54 Post Op Patient Instructions - FT (CUSTOM) Follow Up Care 06/09/2024 10:34:06 With:MIKE SLADE Address:Unknown When: Unknown Comments:1-2 weeks to discuss TURP [facility] 01-09-2025 NoteProgress Note-Physician Patient: BRANDI DALTON JR Age: 83 years Sex: Male : 1940 Associated Diagnoses: None Author: Mark Ly Jr., DO Postoperative Information Postoperative disposition: Postoperative disposition: Home. Optimetrix number: Optimetrix number [id number]. Anesthetic utilized: General. Physical Examination Vital Signs 06/16/2024 9:15 EST Heart Rate Monitored 69 bpm Respiratory Rate 16 br/min Systolic Blood Pressure 157 mmHg HI Diastolic Blood Pressure 84 mmHg Mean Arterial Pressure, Cuff 108 mmHg SpO2 94 % 06/16/2024 9:10 EST Temperature Temporal Artery 36.6 DegC Heart Rate Monitored 68 bpm Respiratory Rate Monitored 17 br/min Systolic Blood Pressure 161 mmHg HI Diastolic Blood Pressure 87 mmHg Blood Pressure Location Right arm Mean Arterial Pressure, Cuff 112 mmHg SpO2 94 % 06/16/2024 9:00 EST Heart Rate Monitored 71 bpm Respiratory Rate Monitored 11 br/min Systolic Blood Pressure 151 mmHg HI Diastolic Blood Pressure 84 mmHg Blood Pressure Location Right arm Mean Arterial Pressure, Cuff 106 mmHg SpO2 97 % 06/16/2024 8:55 EST Heart Rate Monitored 65 bpm Respiratory Rate Monitored 17 br/min Systolic Blood Pressure 140 mmHg Diastolic Blood Pressure 88 mmHg Blood Pressure Location Right arm Mean Arterial Pressure, Cuff 105 mmHg SpO2 100 % 06/16/2024 8:50 EST Heart Rate Monitored 66 bpm Respiratory Rate Monitored 10 br/min Systolic Blood Pressure 153 mmHg HI Diastolic Blood Pressure 80 mmHg Blood Pressure Location Right arm Mean Arterial Pressure, Cuff 104 mmHg SpO2 100 % 06/16/2024 8:44 EST Temperature Axillary 36.5 DegC Heart Rate Monitored 68 bpm Respiratory Rate Monitored 12 br/min Systolic Blood Pressure 152 mmHg HI Diastolic Blood Pressure 78 mmHg Blood Pressure Location Right arm Mean Arterial Pressure, Cuff 103 mmHg SpO2 100 % Pain Assessment: Controlled, Pain Assessment 06/16/2024 9:10 EST Numeric Pain Scale 0 = No pain . General: Awake, Alert, Appropriate. Respiratory: Adequate air exchange, Non-labored. Cardiovascular: Stable, Normal peripheral perfusion. Neurological: Neurologic exam at baseline. No changes.. Assessment Anesthetic outcome No anesthetic complications noted. No nausea/vomiting. Review / Management Condition: Stable. Plan Transfer/Discharge: Transfer/Discharge Discharge when meets criteria ( From PACU to Ambulatory Surgery Unit, and To home ).[facility]Result Comment: Electronically Signed By: Mark Ly Jr., DO.jonathan\Date and Time Signed: 06/16/24 09:47 [id number] NotePatient Education - Text [facility] [place], [place] Dr. Kurtis Alegria Post-operative Instructions for Ureteroscopy, Laser Lithotripsy, Stone Extraction and Stent Placement There are no incisions or dressings to be concerned with, as the procedure was performed inside theurinary system. For 24 hours after surgery: ??? No driving or operating machinery ??? Do not make important decisions ??? Do not consume alcohol, sleeping pills Stent Placement You may have a stent which spans the distance between your bladder and your kidney, allowing urine to pass through. It prevents blockage from swelling, kidney stones in ureter (tube connecting the kidney to the bladder), or scars. The presence of the stent may cause: ??? Back or side pain, especially with urination ??? Frequent or urgent urination ??? Bladder pressure or pain ??? Blood in urine You may pass stone debris or small blood clots, which is expected. Drinking plenty of water to dilute the urine may help. If there is a thread coming out of urinary channel, be careful not to accidently pull on this, as it is attached to the stent. The stent will most likely be removed in the office during a short procedure in which a scope is placed into the bladder, the stent is grasped and removed. At other times the stent may need to stay longer, either in preparation for other procedures or for other reasons. If it is to remain care home, however, changes of the stent are required (about every 3-4 months). Diet You may resume your normal diet, but you may want to start slowly and avoid spicy food, caffeine, carbonated beverages and alcohol, especially if you have a stent. Your diet and fluid intake may makeirritation from the stent worse. Activity You may resume your normal activities, although you should take it easy on the day of the procedure. Minimizing activity may decrease the back discomfort and irritation from the stent, if present. Medications ??? You may resume your home medications unless instructed otherwise. ??? Hold aspirin, ibuprofen, Coumadin (warfarin) and other blood thinners until your office visit (we will discuss when to resume these medications) ??? Take your prescribed medications as directed, including your antibiotics. You may also be givena prescription for pain medicine or medicines to help with the bladder irritation from stent, if present. Things to watch for which would require an Emergency Room Visit (or call 911) (This is not a complete list) ??? Fever over 101.5 degrees, with or without chills ??? Severe bleeding ??? Severe drug reactions with itching, hives, rash, or severe flank pain ??? Tenderness or swelling or the calves, chest pain, or shortness of breath Please call the office to arrange for your post-operative appointment (with XRAY) [phone] [facility]01-09-2025 Note Progress Note-Physician Patient: BRANDI DALTON JR Age: 83 years Sex: Male : 1940 Associated Diagnoses: None Author: Mark Ly Jr., DO Preoperative Information Anesthesia Preop Info NPO since midnight Anesthesia history: Patient history: No prior anesthetic problems. Informed consent: Signed by patient. Re-evaluation prior to induction: Initial evaluation reviewed: No significant change. Health Status Allergies: Allergic Reactions (Selected) No Known Medication Allergies, Allergies (1) Active Severity Reaction No Known Medication Allergies None Documented Current medications: (Selected) Inpatient Medications Ordered HYDROmorphone 1 mg/mL injectable solution: 0.4 mg = 0.4 mL, Injection, IV Push, q4min PRN Pain for 5 dose(s), Stop date Limited # of times, Routine, Start date 06/16/24 7:13:00 EST, 06/16/24 7:13:00 EST Lactated Ringers IV Elif 1000 mL 1,000 mL: 1,000 mL, IV, 100 mL/hr, Routine, Start date 06/16/24 7:13:00 EST, 10 hour(s), Total volume (mL): 1,000, 159.8 kg, 2.71, m2 Sodium Chloride 0.9% IV Elif 1000 mL 1,000 mL: 1,000 mL, IV, 150 mL/hr, Routine, Start date 257:00:00 EST, 6.7 hour(s), Total volume (mL): 1,000, 159.8 kg, 2.71, m2 cefazolin additive + Sodium Chloride 0.9% intravenous solution 50 mL: 2 gm = 1 EA, Powder-Inj, IV Piggyback, Once, Stop date 06/16/24 7:00:00 EST, Routine, Start date 06/16/24 7:00:00 EST, 100 mL/hr,Infuse over 30 minute(s), HOLD if patient has history of anaphylactic allergic reaction to Penicillin. Documented Medications Documented Centrum Silver: tab(s), Oral, Daily, Refill(s) 0 Eliquis 2.5 mg oral tablet: 2.5 mg = 1 tab(s), Oral, BID, Refills(s) 0 Tylenol 8 HR Arthritis Pain 650 mg oral tablet, extended release: mg tab(s), Oral, q8hr, Refills(s)0 Vitamin C: Daily, Refills(s) 0 [place] Calcium and Vitamin D: mL, Oral, BID, Refill(s) 0 lisinopril 5 mg Tab: 5 mg = 1 tab(s), Oral, Daily, # 90 tab(s), Refills(s) 0 magnesium oxide 400 mg (240 mg elemental magnesium) oral tablet: See Instructions, Refill(s) 0, Prophylaxis saw palmetto 450 mg oral capsule: mg cap(s), Oral, Daily, Refills(s) 0 selenium: 200 mcg, Oral, Daily, Refills(s) 0, Home Medications (9) Active Centrum Silver , Oral, Daily Eliquis 2.5 mg oral tablet 2.5 mg = 1 tab(s), Oral, BID lisinopril 5 mg Tab 5 mg = 1 tab(s), Oral, Daily magnesium oxide 400 mg (240 mg elemental magnesium) oral tablet See Instructions saw palmetto 450 mg oral capsule , Oral, Daily selenium 200 mcg, Oral, Daily Tylenol 8 HR Arthritis Pain 650 mg oral tablet, extended release , Oral, q8hr Vitamin C , Daily [place] Calcium and Vitamin D , Oral, BID , Medications (4) Active Scheduled: (1) ceFAZolin + Sodium Chloride 0.9% Minibag 50 mL 2 gm 1 EA, IV Piggyback, Once Continuous: (2) Lactated Ringers 1,000 mL 1,000 mL, IV, 100 mL/hr Sodium Chloride 0.9% 1,000 mL 1,000 mL, IV, 150 mL/hr PRN: (1) HYDROmorphone 1 mg/mL SOLN [F] 0.4 mg 0.4 mL, IV Push, q4min Problem list: All Problems Anticoagulated / SNOMED CT 288317670 / Confirmed Atrial fibrillation / SNOMED CT 47019050 / Confirmed BPH with urinary obstruction / SNOMED CT 1013784214 / Confirmed CHF (congestive heart failure) / SNOMED CT 11931908 / Confirmed Former smoker / SNOMED CT 41780325 / Confirmed Frequent urination / SNOMED CT 306368898 / Confirmed History of kidney stones / SNOMED CT 6400539702 / Confirmed Kidney stone / SNOMED CT 424375444 / Confirmed Nocturia / SNOMED CT 971477570 / Confirmed Renal lesion / SNOMED CT 1296631524 / Confirmed Ureteral stone with hydronephrosis / SNOMED CT 2814593504 / Confirmed Histories Past Medical History: No active or resolved past medical history items have been selected or recorded. Procedure history: Lithotripsy (029726045). Cataract (433497445). Colectomy (33921797). Knee replacement (604215816). Hemorrhage (4472560985). Tonsillectomy (129586924). Social History Social & Psychosocial Habits Alcohol 06/16/2024 Use: Never Tobacco 06/16/2024 Tobacco Use: Never (less than 100 in l . Physical Examination Vital Signs 06/16/2024 7:06 EST Heart Rate Monitored 82 bpm SpO2 97 % 06/16/2024 7:06 EST Temperature Axillary 36.6 DegC 06/16/2024 7:06 EST Systolic Blood Pressure 179 mmHg HI Diastolic Blood Pressure 79 mmHg Mean Arterial Pressure, Monitered 112 mmHg Airway: Mallampati classification: II (soft palate, fauces, uvula visible). Respiratory: Lungs are clear to auscultation, Respirations are non-labored. Cardiovascular: Regular rhythm. Review / Management Results review: Lab results 06/09/2024 12:42 EST WBC 6.6 E9/L RBC 3.7 E12/L LOW HGB 13.3 gm/dL LOW Hct 38.3 % MCV 103.4 fL HI MCH 35.9 pg HI MCHC 34.7 gm/dL RDW 12.8 % Platelet 256.0 E9/L MPV 7.9 fL Neutro Auto 66.3 % Lymph Auto 15.8 % [place] Auto 9.7 % Eos Auto 7.5 % Basophil Auto 0.7 % Neutro Absolute 4.4 E9/L Lymph Abs (more content not included)...[facility]Result Comment: Electronically Signed By: Mark Ly Jr., DO.jonathan\Date and Time Signed: 06/16/24 07:16 [id number] Hospital Discharge instructions Patient Education 06/09/2024 10:19:36 Ureteroscopy Ureteroscopy Ureteroscopy is a procedure to check for and treat problems inside part of the urinary tract. In this procedure, a long rigid or flexible tube with a lens and light at the end (ureteroscope) is used to look at the inside of the kidneys and the ureters. The ureters are the tubes that carry urine from the kidneys to the bladder. The ureteroscope is inserted into one or both of the ureters. You may need this procedure if you have frequent urinary tract infections (UTIs), blood in your urine, or a stone in one or both of your ureters. A ureteroscopy can be done: To find the cause of urine blockage in a ureter and to evaluate other abnormalities inside the ureters or kidneys. To remove stones. To remove or treat growths of tissue (polyps), abnormal tissue, and some types of tumors. To remove a tissue sample and check it for disease under a microscope (biopsy). Tell a health care provider about: Any allergies you have. All medicines you are taking, including vitamins, herbs, eye drops, creams, and uatw-avw-okyetnv medicines. Any problems you or family members have had with anesthetic medicines. Any bleeding problems you have. Any surgeries you have had. Any medical conditions you have. Whether you are or may be . What are the risks? Your health care provider will talk with you about risks. These may include: Abdominal pain or a burning feeling or pain while urinating. Abnormal bleeding. A UTI. Allergic reactions to medicines. Scarring that narrows the ureter (stricture) or swelling. Creating a hole (perforation) in the ureter. Damage to other structures or organs, such as the part of your body that drains urine from your bladder (urethra), your bladder, or your uterus. What happens before the procedure? When to stop eating and drinking 8 hours before your procedure ?Stop eating most foods. Do not eat meat, fried foods, or fatty foods. ?Eat only light foods, such as toast or crackers. ?All liquids are okay except energy drinks and alcohol. 6 hours before your procedure ?Stop eating. ?Drink only clear liquids, such as water, clear fruit juice, black coffee, plain tea, and sports drinks. ?Do not drink energy drinks or alcohol. 2 hours before your procedure ?Stop drinking all liquids. ?You may be allowed to take medicines with small sips of water. Medicines Ask your health care provider about: Changing or stopping your regular medicines. These include any diabetes medicines or blood thinnersyou take. Taking medicines such as aspirin and ibuprofen. These medicines can thin your blood. Do not take these medicines unless your health care provider tells you to. Taking wykp-biv-ufusjiw medicines, vitamins, herbs, and supplements. General instructions Do not use any products that contain nicotine or tobacco for at least 4 weeks before the procedure.These products include cigarettes, chewing tobacco, and vaping devices, such as e-cigarettes. If you need help quitting, ask your health care provider. If you will be going home right after the procedure, plan to have a responsible adult: ?Take you home from the hospital or clinic. You will not be allowed to drive. ?Care for you for the time you are told. Ask your health care provider what steps will be taken to help prevent infection. These may include: ?Washing skin with a soap that kills germs. ?Receiving antibiotic medicine. Tests You may have an exam or testing. ?You may have a urine sample taken to check for infection. What happens during the procedure? An IV will be inserted into one of your veins. You may be given: ?A sedative. This helps you relax. ?Anesthesia. This will: ?Numb certain areas of your body. ?Make you fall asleep for surgery. Your urethra will be cleaned with a germ-killing solution. The ureteroscope will be passed through your urethra into your bladder. A salt-water solution will be sent through the ureteroscope to fill your bladder. This will help the health care provider see the openings of your ureters more clearly. The ureteroscope will be passed into your ureter. ?If a growth is found, a biopsy may be done. ?If a stone is found, it may be removed through the ureteroscope, or the stone may be broken up using a laser, shock waves, or electrical energy. ?In some cases, if the ureter is too small, a tube may be inserted that keeps the ureter open (ureteral stent). The stent may be left in place for 1 or 2 weeks, and then the ureteroscopy procedure will be done again. The scope will be removed, and your bladder will be emptied. The procedure may vary among health care providers and hospitals. What happens after the procedure? Your blood pressure, heart rate, breathing rate, and blood oxygen level will be monitored until youleave the hospital or clinic. It is up to you to get the results of your procedure. Ask your health care provider, or the department that is doing the procedure, when your results will be ready. Summary Ureteroscopy is a procedure used to look at the inside of the kidneys and the ureters. You may need this procedure if you have frequent urinary tract infections (UTIs), blood in your urine, or a stone in one or both of your ureters. Follow instructions from your health care provider about eating and drinking. In some cases, if the ureter is too small, a tube may be inserted that keeps the ureter open (ureteral stent). The stent may be left in place for 1 or 2 weeks to keep the ureter open, and then the ureteroscopy procedure will be done again. This information is not intended to replace advice given to you by your health care provider. Make sure you discuss any questions you have with your health care provider. Document Revised: 04/27/2023 Document Reviewed: 04/27/2023 [email or web address] Patient Education 2023 [employer]. Follow Up Care 06/03/2024 13:17:03 With:GEORGI TRUJILLO, MIKE, JASON Address: When: Unknown [facility] 01-02-2025 NotePatient Education Urology Ureteroscopy Ureteroscopy is a procedure to check for and treat problems inside part of the urinary tract. In this procedure, a long rigid or flexible tube with a lens and light at the end (ureteroscope) is used to look at the inside of the kidneys and the ureters. The ureters are the tubes that carry urine from the kidneys to the bladder. The ureteroscope is inserted into one or both of the ureters. You may need this procedure if you have frequent urinary tract infections (UTIs), blood in your urine, or a stone in one or both of your ureters. A ureteroscopy can be done: ??? To find the cause of urine blockage in a ureter and to evaluate other abnormalities inside the ureters or kidneys. ??? To remove stones. ??? To remove or treat growths of tissue (polyps), abnormal tissue, and some types of tumors. ??? To remove a tissue sample and check it for disease under a microscope (biopsy). Tell a health care provider about: ??? Any allergies you have. ??? All medicines you are taking, including vitamins, herbs, eye drops, creams, and kouq-rwg-qhztnbv medicines. ??? Any problems you or family members have had with anesthetic medicines. ??? Any bleeding problems you have. ??? Any surgeries you have had. ??? Any medical conditions you have. ??? Whether you are or may be . What are the risks? Your health care provider will talk with you about risks. These may include: ??? Abdominal pain or a burning feeling or pain while urinating. ??? Abnormal bleeding. ??? A UTI. ??? Allergic reactions to medicines. ??? Scarring that narrows the ureter (stricture) or swelling. ??? Creating a hole (perforation) in the ureter. ??? Damage to other structures or organs, such as the part of your body that drains urine from yourbladder (urethra), your bladder, or your uterus. What happens before the procedure? When to stop eating and drinking ??? 8 hours before your procedure ? Stop eating most foods. Do not eat meat, fried foods, or fatty foods. ? Eat only light foods, such as toast or crackers. ? All liquids are okay except energy drinks and alcohol. ??? 6 hours before your procedure ? Stop eating. ? Drink only clear liquids, such as water, clear fruit juice, black coffee, plain tea, and sports drinks. ? Do not drink energy drinks or alcohol. ??? 2 hours before your procedure ? Stop drinking all liquids. ? You may be allowed to take medicines with small sips of water. Medicines Ask your health care provider about: ??? Changing or stopping your regular medicines. These include any diabetes medicines or blood thinners you take. ??? Taking medicines such as aspirin and ibuprofen. These medicines can thin your blood. Do not take these medicines unless your health care provider tells you to. ??? Taking fmcj-clj-gbwtzss medicines, vitamins, herbs, and supplements. General instructions ??? Do not use any products that contain nicotine or tobacco for at least 4 weeks before the procedure. These products include cigarettes, chewing tobacco, and vaping devices, such as e-cigarettes. If you need help quitting, ask your health care provider. ??? If you will be going home right after the procedure, plan to have a responsible adult: ? Take you home from the hospital or clinic. You will not be allowed to drive. ? Care for you for the time you are told. ??? Ask your health care provider what steps will be taken to help prevent infection. These may include: ? Washing skin with a soap that kills germs. ? Receiving antibiotic medicine. Tests ??? You may have an exam or testing. ? You may have a urine sample taken to check for infection. What happens during the procedure? An IV will be inserted into one of your veins. ??? You may be given: ? A sedative. This helps you relax. ? Anesthesia. This will: ? Numb certain areas of your body. ? Make you fall asleep for surgery. ??? Your urethra will be cleaned with a germ-killing solution. ??? The ureteroscope will be passed through your urethra into your bladder. ??? A salt-water solution will be sent through the ureteroscope to fill your bladder. This will help the health care provider see the openings of your ureters more clearly. ??? The ureteroscope will be passed into your ureter. ? If a growth is found, a biopsy may be done. ? If a stone is found, it may be removed through the ureteroscope, or the stone may be broken up using a laser, shock waves, or electrical energy. ? In some cases, if the ureter is too small, a tube may be inserted that keeps the ureter open (ureteral stent). The stent may be left in place for 1 or 2 weeks, and then the ureteroscopy procedure will be done again. ??? The scope will be removed, and your bladder will be emptied. The procedure may vary among health care providers and hospitals. What happens after the procedure? (more content not included)...[facility] NoteHNO ID: [id number] Author: KENDRA MENDOZA MD Service: ? Author Type: Physician Type: Progress Notes Filed: 05/24/2024 17:30 Note Text: [facility] [place] [facility] SECTION OF HEART FAILURE and CARDIAC TRANSPLANT MEDICINE OUTPATIENT VISIT DATE May 24, 2024 OUTPATIENT VISIT TYPE Established Patient PRIMARY CARE PHYSICIAN: Samantha Maya [address] [place] [address] CHIEF COMPLAINT: HF f/u NURSING INTAKE (Patient?s [...] Take 5 mg by mouth once daily. Iamalovcufchk-Tdrvcarv-Uqlzmg (CENTRUM SILVER) tab Take 1 tablet by [...] displaced, S1, S2 normal (more content not included)...[facility]12-17-[facility] History of Present illness Narrative* Kendra Mendoza MD - 05/24/2024 9:14 AM EST Images from the original note were not included. [facility] [place] [facility] SECTION OF HEART FAILURE and CARDIAC TRANSPLANT MEDICINE OUTPATIENT VISIT DATE May 24, 2024 OUTPATIENT VISIT TYPE Established Patient PRIMARY CARE PHYSICIAN: Samantha Maya [address] [place] [address] CHIEF COMPLAINT: HF f/u NURSING INTAKE (Patient [...] Take 5 mg by mouth once daily. Qtkmfpjqeqplh-Wwuhqcgj-Rzjwpl (CENTRUM SILVER) tab Take 1 tablet by [...] population = 50. Five points is a clinicallymeaningful difference.) Physical T-Score 47.7 Mental T-Score 43.5 [...] performed on 02/09/2024 (SHARON). LVEF has improved; MRbetter evaluated on prior SHARON. SHARON 02/09/24: LVEF 35% with +3 MR and no URIAH thrombus. Echo 12/30/2023 SHARON 10/[address] Result Last MRI Result IMPRESSION:83 yo man here for further evaluation and management of new onset heart failure with history of paroxysmal atrial fibrillation, hypertension, hyperlipidemia, moderate regurgitation, h/o carpal tunnel syndrome, hypothyroidism, s/p hemicolectomy for gastrointestinal bleeding with diverticul itis , and renal lithiasis. He has been [...] cardioversion which did not happen and a watchmanprocedure was discussed. Since his heart failure symptoms progressed he was hospitalized December 28-, diagnosed with HFrEF (LVEF 30%) and given IV diuretics. At my last visit, I increased his B-tyron and arranged for cardioversion which was successfully done on 02/09/24 but due to bradycardia post-cardioversion the B-tyron was aifpylh19/2/24 and diuretics stopped due to hypotension. Eliquischanged by patient to 5 mg daily given [...] snore or have sleep apnea. LHC in 2020 normal. On examination today he has no gross signs of heart failure. Mitral regurgitation is moderate with LV dilation. We discussed MV clip which we will considerin near future. Currently asymptomatic. NYHA Functional Class: [...] the management and care of this patient. Wediscussed natural history of disease, current treatment options, and future potential treatment options. We discussed diet, exercise, other non-medical management as above. Kendra Mendoza MD [facility] Section Of Heart Failure and Cardiac Transplant Medicine [facility] [place] [facility] Desk [id number] [place] [address] Addendum: Labs Latest Ref Rng 05/24/2024 Glucose [...] (H) High (L) Low documented in this encounterMcc[facility]12[facility] Telephone encounter Note * Telephone Encounter - Ian Hogue RN - 05/16/2024 5:10 PM EST Patient will need to meet with Ep physician who preforms Watcheileen (Dr Qureshi placed consult). Patient updated and provided scheduling number. Message also sent to schedulers. Ian Hogue RN [facility]12-09-2024 Miscellaneous Notes* Telephone Encounter - Ian Hogue RN - 05/16/2024 5:10 PM EST Patient will need to meet with Ep physician who preforms Watchman (Dr Qureshi placed consult). Patient updated and provided scheduling number. Message also sent to schedulers. Ian Hogue RN * Telephone Encounter - Georgia Cannon - 05/10/2024 10:35 AM EST May 10, 2024 Patient Contact Number: [phone] (home) [phone] (work) [phone] (cell) Patient last seen within the last year: Yes Reason for Call: Other Issue: Patient called to inform Dr. Qureshi that he would like to proceed with Ablation and Watchman procedure(one procedure). Patient would like pre-op testing to be day prior to procedure if possible. He will discuss with scheduling nurse. Patient advised of routine timeframe for EPLABSC to contact him with avail dates. Pt acknowledges understanding. Please initiate process for scheduling. Thank you, Georgia Cannon, Debbie documented in this encounterM[facility]12-[facility] Telephone encounter Note * Telephone Encounter - Georgia Cannon - 05/10/2024 10:35 AM EST May 10, 2024 Patient Contact Number: [phone] (home) [phone] (work) [phone] (cell) Patient last seen within the last year: Yes Reason for Call: Other Issue: Patient called to inform Dr. Qureshi that he would like to proceed with Ablation and Watchman procedure(one procedure). Patient would like pre-op testing to be day prior to procedure if possible. He will discuss with scheduling nurse. Patient advised of routine timeframe for EPLABSC to contact him with avail dates. Pt acknowledges understanding. Please initiate process for scheduling. Thank you, Georgia Cannon, Admin [facility]12-02-2024 Instructions* Patient Instructions* Rd Qureshi MD - 05/09/2024 11:15 AM [...] an ablation + watchman. documented in this encounterMccull[facility]12-[facility] History of Present illness Narrative* Rd Qureshi MD - 05/09/2024 10:45 AM EST Images from the original note were not included. [facility] [place] Department of Cardiovascular Medicine TELEPHONE VISIT (audio only) PROGRESS NOTE This is a telephone encounter initiated for an established patient. The patient, parent or guardianis not originating from a related Evaluation & Management service provided within the previous 7 days nor leading to an Evaluation & Management service or procedure within the next 24 hours or soonest available appointment. I have communicated my name and active licensure. The patient's identity and physical location wereverified at the time of this visit. Either the patient or their legal agricultural sales representative has been informed of the risks and benefits of -- and alternatives to -- treatment through a remote evaluation andconsents to proceed with the evaluation remotely. Brandi [...] medical history is significant for GI bleed, hypertension,hyperlipidemia, hypothyroidism, combined systolic and diastolic heart failure, Moderate MR and atrial fibrillation. He had normal coronary angiogram in 2020 and had SHARON in August 2022 which revealed moderate mitral regurgitation with normal ejection fraction and normal LV size. His reports his AF was diagnosedincidentally several years ago at which time he [...] mg by mouth two times a day. Vkulqvamcnvnb-Bktsckgf-Hustej (CENTRUM SILVER) tab Take 1 tablet by [...] medical history is significant for GI bleed, hypertension,hyperlipidemia, hypothyroidism, combined systolic and diastolic heart failure, [...] 06, 2024 2:59 PM documented in this encounterMccull[facility]12-02-2024 NoteHNO ID: [id number] Author: RD QURESHI MD Service: ? Author Type: Physician Type: Progress Notes Filed: 05/09/2024 11:20 Note Text: [facility] [place] Department of Cardiovascular Medicine TELEPHONE VISIT (audio [...] visit. Either the patient or their legal agricultural sales representative has been informed of the risks [...] mg by mouth two times a day. Mxwqpcmvobtsi-Uzuuapfv-Jvgcem (CENTRUM SILVER) tab Take 1 tablet by [...] Cardioversion, Pre AF Ablation (more content not included)...[facility]10-11-2024 Instructions * Patient Instructions* Compa Corcoran APRN.CNP - 03/18/2024 10:42 AM EDT -No medication changes today. -Please have blood work faxed to me when you get it done locally. -Follow-up with Dr. Mendoza on 05/24/2024 with labs and testing. documented in this encounterMccullough[facility]10-11-2024 NoteHNO ID: [id number] Author: COMPA CORCORAN APRN.CNP Service: ? Author Type: Nurse Practitioner Type: Progress Notes Filed: 03/18/2024 16:06 Note Text: [facility] [place] [facility] SECTION OF HEART FAILURE and CARDIAC TRANSPLANT MEDICINE OUTPATIENT VISIT DATE 03/18/2024 PRIMARY CARE PHYSICIAN: Samantha Maya [address] [place] [address] PRIMARY HEART FAILURE CERTIFIED PEST CONTROL TECHNICIAN: Dr. Mendoza CHIEF COMPLAINT: Follow-up HISTORY OF [...] Take 40 mg by mouth once daily. Pichnkpobpmuq-Vbwnendz-Kgfmit (CENTRUM SILVER) tab Take 1 tablet by [...] or cyanosis. Warm, peripheral (more content not included)...[facility]10-11-20[facility] History of Present illness Narrative* Compa Corcoran APRN.CABLE DISPATCHER - 03/18/2024 10:16 AM EDT Images from the original note were not included. [facility] [place] [facility] SECTION OF HEART FAILURE and CARDIAC TRANSPLANT MEDICINE OUTPATIENT VISIT DATE 03/18/2024 PRIMARY CARE PHYSICIAN: Samantha Maya [address] [place] [address] PRIMARY HEART FAILURE CERTIFIED PEST CONTROL TECHNICIAN: Dr. Mendoza CHIEF COMPLAINT: Follow-up HISTORY OF PRESENT ILLNESS: Brandi Dalton JR is a 83 year old male seen today by me for follow-up. Hewas last seen in heart failure clinic with Dr. Mendoza on 02/04/2024 and the following recommendationswere made: Increase ToproL XL to 50 mg [...] Take 40 mg by mouth once daily. Gqoqjrpbdsrzc-Htesnriq-Silfxr (CENTRUM SILVER) tab Take 1 tablet by [...] 99 mg/dL 92 105 R Comment: The [place] [employer] (ADA) provides guidance for cutoff values for fasting glucose and random glucose. The ADA defines fasting as no caloric intake for at least 8 hours. Fastingplasma glucose results between 100 to 125 mg/dL [...] Standards of Medical Care in Diabetes 2016, [place] [employer]. Diabetes Care. 2016.39(Suppl 1). BUN [...] renal function, e.g. those with acute kidney injury,the eGFR may not accurately reflect actual GFR. Resulting Agency [facility] Specimen Collected: 02/09/24 See EPIC for details of other cardiac testing. IMPRESSION: NYHA Functional Class: I Stage: C heart failure -HFrEF/ NICM, chronic systolic heart failure, cardiomyopathy/ LVEF 35% Brandi Dalton JR is here todayfor follow-up. At his last visit, his Toprol [...] locally with his PCP and I will addon lab work with electrolytes and follow-up with him when I get the results. Of note, he is asking about the Watchman procedure and I will discuss candidacy with Dr. Mendoza. BB: stopped due to bradycardia ACEi/ARB/ARNI: lisinopril 5 mg daily MRA: no SGLT2i: no Vasodilators: no Diuretic regimen: Lasix stopped due to dehydration Digoxin: no Anti-arrhythmics: no Other anti-HTN: no Device therapy: no, atka QRS: 116 ms Sleep apnea: no Anemia: [...] support, etc. We discussed diet, exercise, other non- medical management as above. Compa Corcoran MSN, ACNP-BC, CHFN, [facility] Section Of Heart Failure and Cardiac Transplant Medicine [facility] [place] [facility] Desk J3-[address] [place] [address] documented in this encounterMccullough-[facility]09-10-[facility]24 Telephone encounter Note * Telephone Encounter - Marily Lange - 02/16/2024 3:06 PM EDT Spoke with: Katalina (Spouse) Dr. Mendoza advised the following: - Stop Metoprolol for 2 days to get it out of his system - No EKG/no additional testing - Patient/spouse will call in on either Thurs or Fri this week to let us know what BP/HR is after stopping metoprolol Patient's spouse verbalized understanding. [facility]09-10-2024 Miscellaneous Notes* Telephone Encounter - Marily Lange - 02/16/2024 3:06 PM EDT Spoke with: Katalina (Spouse) Dr. Mendoza advised the following: - Stop Metoprolol for 2 days to get it out of his system - No EKG/no additional testing - Patient/spouse will call in on either Thurs or Fri this week to let us know what BP/HR is after stopping metoprolol Patient's spouse verbalized understanding. * Telephone Encounter - Cesar Womack - 02/16/2024 12:38 PM EDT February 16, 2024 Name: Brandi Dalton JR Patient Contact Number: [phone] (home) [phone] (work) Date of last office visit: 02/04/2024 Reason For Call: patient calling in stating that his Bp has been low and his HR has been in the 40ssince his cardioversion. He stated that he has had no energy and cut down on his metoprolol 1x a day and still on lisinopril,lasix, and eliquis. Please advise Physician: Kendra Mendoza MD Patient was informed that non-urgent calls may be returned within the next three business days. Yes Cesar Womack documented in this encounterMcc[facility]09-[facility]24 Telephone encounter Note * Telephone Encounter - Cesar Womack - 02/16/2024 12:38 PM EDT February 16, 2024 Name: Brandi Dalton JR Patient Contact Number: [phone] (home) [phone] (work) Date of last office visit: 02/04/2024 Reason For Call: patient calling in stating that his Bp has been low and his HR has been in the 40ssince his cardioversion. He stated that he has had no energy and cut down on his metoprolol 1x a day and still on lisinopril,lasix, and eliquis. Please advise Physician: Kendra Mendoza MD Patient was informed that non-urgent calls may be returned within the next three business days. Yes Cesar Womack [facility]09-03-2024 Nurse Note* Alexander Rodriguez, RN - 02/09/2024 12:23 PM EDT AMBULATORY PATIENT EDUCATION TOPIC: SHARON READINESS TO [...] FAMILY RESPONSE: Verbalizes understanding of: POST-PROCEDURE INSTRUCTIONS-Correct actionsto take to reduce post procedure complications PRE-PROCEDURE INSTRUCTIONS-Correct action to take to follow pre-procedure instructions FOLLOW-UP PLAN: Complete - No need for follow-up SUPPLEMENTAL MATERIAL: Post SHARON instructions given Post sedation instructions given REFERRAL (RECOMMENDATION): None Electronically Signed By Alexander Rodriguez RN In Department: CARDIOLOGY [facility]09-03-2024 Nurse Note* Alexander Rodriguez RN - 02/09/2024 12:23 PM EDT AMBULATORY PATIENT EDUCATION TOPIC: SHARON READINESS TO [...] FAMILY RESPONSE: Verbalizes understanding of: POST-PROCEDURE INSTRUCTIONS-Correct actionsto take to reduce post procedure complications PRE-PROCEDURE INSTRUCTIONS-Correct action to take to follow pre-procedure instructions FOLLOW-UP PLAN: Complete - No need for follow-up SUPPLEMENTAL MATERIAL: Post SHARON instructions given Post sedation instructions given REFERRAL (RECOMMENDATION): None Electronically Signed By Alexander Rodriguez RN In Department: CARDIOLOGY documented in this encounterMccullough[facility]08-30-2024 Telephone encounter Note * Telephone Encounter - Marily Lange - 02/05/2024 9:36 AM EDT Completed in a separate encounter. [facility]08-30-2024 Miscellaneous Notes* Telephone Encounter - Marily Lange - 02/05/2024 9:36 AM EDT Completed in a separate encounter. * Telephone Encounter - Kendra Mendoza MD - 02/04/2024 5:56 PM EDT please arrange SHARON with cardioversion for as soon as possible. Patient has been on eliquis 5 mg bid > 6 mo but has missed a few doses so SHARON is needed. Can youschedule for 02/05/24 or 02/09/24 Kendra Mendoza (Including my physician's assistant Marily Nazario to keep her informed) THANKS documented in this encounterMccullough-[facility]08-30-2024 History of Present illness Narrative* Shawanda Vargas RN - 02/05/2024 8:53 AM EDT THE FOLLOWING WAS EVALUATED Motivation To Learn: [...] discussed with Physician, nurse practitioner or Physician physician's assistant upon discharge Instructions for transmitting EKG to [facility] 3 month follow up instructions Contact number for information and questions Patient Evaluation: Verbalizes understanding Follow Up Plan: Follow up as directed by MD. Supplemental Material Given: Written Material Instructed By Shawanda Vargas RN. In Department of CARDIOLOGY. documented in this encounterMccullough[facility]08-30-2024 Telephone encounter Note * Telephone Encounter - Shawanda Vargas RN - 02/05/2024 8:[address] Mendoza requesting SHARON/DCC for 02/09/24. SHARON noted to be scheduled 02/08. DCC scheduled as requested.Patient's accepting date of 02/08. Shawanda Vargas RN [facility]08-30-2024 Miscellaneous Notes* Telephone Encounter - Shawanda Vargas RN - 02/05/2024 8:[address] Mendoza requesting SHARON/DCC for 02/09/24. SHARON noted to be scheduled 02/08. DCC scheduled as requested.Patient's accepting date of 02/08. Shawanda Vargas RN documented in this encounterMccullough-[facility]08-29-2024 Telephone encounter Note * Telephone Encounter - Kendra Mendoza MD - 02/04/2024 5:56 PM EDT please arrange SHARON with cardioversion for as soon as possible. Patient has been on eliquis 5 mg bid > 6 mo but has missed a few doses so SHARON is needed. Can youschedule for 02/05/24 or 02/09/24 Kendra Mendoza (Including my physician's assistant Marily Lange to keep her informed) THANKS [facility]08-29-2024 History of Present illness Narrative* Kendra Mendoza MD - 02/04/2024 4:00 PM EDT Images from the original note were not included. [facility] [place] [facility] SECTION OF HEART FAILURE and CARDIAC TRANSPLANT MEDICINE OUTPATIENT VISIT DATE February 04, 2024 OUTPATIENT VISIT TYPE Consultation PRIMARY CARE PHYSICIAN: MD Boy Wilson [address] [address] CHIEF COMPLAINT: HF NURSING INTAKE (Patient s concerns and/or recent hospitalizations/ER visits): Brandi Dalton JR is a 83 y/o male coming from [place], [place] for a cardiac evaluation PMHx of [...] management of heart failure. 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 He saw Dr. Yeager in [place] who did not address shortness of breath [...] Comment: Left eye Retinal detchement repair (laser) 1948: PAST SURGICAL HISTORY OF Comment: Tonsils 1968: PAST SURGICAL HISTORY OF Comment: Left pat Tend. 1976: PAST SURGICAL HISTORY OF Comment: Repair Left [...] Take 50 mg by mouth once daily. Shdefuipcpwdu-Svxabkmf-Creeyx (CENTRUM SILVER) tab Take 1 tablet by [...] hypothyroidism, s/p hemicolectomy for gastrointestinal bleeding with diverticul itis , and renal lithiasis. He has been [...] cardioversion which did not happen and a watchmanprocedure was discussed. Since his heart failure symptoms progressed he was hospitalized December 28-, diagnosed with HFrEF (LVEF 30%) and given IV diuretics. [place] a little better but still has shortness [...] have sleep apnea. LHC in 2019 normal. Onexamination today he has no gross signs of [...] the management and care of this patient. Wediscussed natural history of disease, current treatment options, and future potential treatment options. We discussed diet, exercise, other non-medical management as above. Kendra Mendoza MD [facility] Section Of Heart Failure and Cardiac Transplant Medicine Heart [facility] [place] [facility] Desk J3-[address] [place] [address] documented in this encounterMccullough-[facility]07-19-2024 History of Present illness Narrative* Avelina Chowdhury MD - 12/25/2023 11:00 AM EDT Subjective Brandi Porter Dalton Jr. is a 83 y.o. male Chief Complaint Follow-up HPI Patient is in the office for follow-up for the problems noted below at the request of his his since she has noticed that he is becoming more short of breath. He confesses for being short of breath for activities that in general have been well-tolerated but denies any symptoms of chest pain. Novolume overload no orthopnea PND syncope or near [...] my direction and personally dictated by me. Ihgiselle reviewed the chart and agree that the record accurately reflects my personal performance of the history, physical exam, discussion and plan. documented in this [facility] Work Phone: 1(860) 759-133107-19-2024 Instructions* Patient Instructions* Alycia Borrego LPN - 12/25/2023 11:00 AM [...] Provided instructions on exercise. documented in this encounterPremier Health Work Phone: 1(954) 191-435506-09-2022 History of Present illness Narrative* Zulema Levin MD - 11/14/2021 9:50 AM EDT New patient to Dr. Levin Last seen with Dr. Alberto ([place]) who thought that the choroidal nevus left eye was larger thanprior Choroidal nevus, left eye - Appears flat, [...] components. Zulema Levin MD documented in this encounterMccullough-[facility]de [facility] HospitalEvaluation + Plan note Future Appointments Appointment Date:06/16/2024 09:00:00 AM Scheduled Provider: Location:[facility] Appointment Type:Surgery FT [facility] evaluation + Plan note Future Appointments Appointment Date:07/07/2024 10:40:00 AM Scheduled Provider:MIKE SLADE MD Location:[facility] Appointment Type:URO Office Visit [facility] 50 Partnersaluation + Plan note Future Appointments Appointment Date:01/02/2025 10:20:00 AM Scheduled Provider:MIKE SLADE MD Location:[facility] Appointment Type:URO Office Visit [facility] evaluation + Plan note Future Appointments Appointment Date:01/01/2026 11:20:00 AM Scheduled Provider:Blanca Vieira Location: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 Epiretinal membrane (ERM) of both eyes documented in this encounter [facility] note* Diagnosis Paroxysmal atrial fibrillation (HCC)- [...] use of anticoagulants documented in this encounter [facility] note* Diagnosis Paroxysmal atrial fibrillation (HCC)- Primary Atrial fibrillation Persistent atrial fibrillation (HCC) Atrial fibrillation documented in this encounter [facility] note* Diagnosis Paroxysmal atrial fibrillation (HCC) Atrial fibrillation documented in this encounter [facility] note* Diagnosis Chronic systolic (congestive) heart failure (HCC)- Primary documented in this encounter [facility] [place] [facility]* Diagnosis Atrial fibrillation, persistent (HCC)- Primary Atrial fibrillation Typical atrial flutter (HCC) Atrial flutter documented in this encounter [facility] [place] [facility]* Diagnosis Gastrointestinal bleeding, lower- Primary Hemorrhage of gastrointestinal tract, unspecified Atrial fibrillation, persistent (HCC) Atrial fibrillation Atypical atrial flutter (HCC) Atrial flutter Typical atrial flutter (HCC) Atrial flutter documented [facility] [place] [facility]* Diagnosis Essential hypertension, benign Left atrial dilation Cardiomegaly Mitral valve insufficiency, unspecified etiology Persistent atrial fibrillation with rapid ventricular response (Multi) High risk medication use Shortness of breath Former smoker Personal history of tobacco use, presenting hazards to health documented in this encounter [facility] Work Phone: Evaluation note* Diagnosis Chronic systolic (congestive) heart failure (HCC)- Primary documented in this encounter [facility] [place] [facility]* Diagnosis Chronic diastolic heart failure (HCC)- Primary Chronic diastolic heart failure Complex medical condition Typical atrial flutter (HCC) Atrial flutter Paroxysmal atrial fibrillation (HCC) Atrial fibrillation Essential hypertension, benign Cardiomyopathy, nonischemic (HCC) Other primary cardiomyopathies Other hyperlipidemia History of partial colectomy Chronic anticoagulation Long-term (current) use of anticoagulants documented in this encounter [facility] [place] [facility]* Diagnosis Atrial fibrillation, persistent (HCC)- Primary Atrial fibrillation Chronic diastolic heart failure (HCC) Chronic diastolic heart failure Non-rheumatic mitral regurgitation Mitral valve disorders Heart failure with reduced ejection fraction (HCC) Heart failure, unspecified Carpal tunnel syndrome, bilateral 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 Long-term (current) use of anticoagulants Gastrointestinal hemorrhage, unspecified gastrointestinal hemorrhage type documented in this encounter [facility] [place] [facility]* Diagnosis SOB (shortness of breath)- Primary Shortness of breath documented in this encounter [facility] [place] [facility]* Diagnosis Chronic diastolic heart failure (HCC) Chronic diastolic heart failure documented in this encounter [facility] [place] [facility]* Diagnosis Chronic diastolic heart failure (HCC)- Primary Chronic diastolic heart failure PAF (paroxysmal atrial fibrillation) (HCC) Atrial fibrillation Non-rheumatic mitral regurgitation Mitral valve disorders documented in this encounter [facility] [place] [facility]* Diagnosis Monoclonal gammopathy- Primary Monoclonal paraproteinemia documented in this encounter [facility]* Diagnosis Chronic diastolic heart failure (HCC)- Primary Chronic diastolic heart failure Non-rheumatic mitral regurgitation Mitral valve disorders Complex medical condition Paroxysmal atrial fibrillation (HCC) Atrial fibrillation Cardiomyopathy, nonischemic (HCC) Other primary cardiomyopathies History of partial colectomy History of gastrointestinal bleeding Personal history of other diseases of digestive system Carpal tunnel syndrome, unspecified laterality Tachycardia induced cardiomyopathy (HCC) Tachycardia, unspecified Essential hypertension, benign Other hyperlipidemia [facility] PAF (paroxysmal atrial fibrillation) (HCC)- Primary Atrial fibrillation Atrial fibrillation, unspecified type (HCC) [facility] Narrative No data available for this section [facility] Hospital Discharge instructions No data available for this section [facility] Progress note No data available for this section [facility] Reason for referral (narrative)* Outpatient Procedure (Routine) - AuthorizedSpecialtyDiagnoses / ProceduresReferred By Contact Referred To [facility] Diagnoses Paroxysmal atrial fibrillation (HCC) Procedures ECG COMPLETE ECG ROUTINE ECG W/LEAST 12 LDS W/I&R Arsen Talavera MD [address] [place] [address] [facility] [place] [address] [place] [address] Referral IDStatusReasonStart DateExpiration DateVisits RequestedVisits [id number] Auto-Generated Referral [facility] for referral (narrative)* Consultation (Routine) - AuthorizedSpecialtyDiagnoses / ProceduresReferred By ContactReferred To ContactCardiology Diagnoses High risk medication use Avelina Chowdhury MD [address] [facility] [address], [address] [address] [place] [address] [place] [address] Referral IDStatusTanyaasonStart DateExpiration DateVisits RequestedVisits [id number] Specialty Services Required * Consultation (Routine) - AuthorizedSpecialtyDiagnoses / ProceduresReferred By ContactReferred To ContactCardiology Diagnoses Essential hypertension, benign Procedures Follow Up In Cardiology Avelina Chowdhury MD [address] [facility] [address], [place] [address] [place] [address] Avelina Chowdhury MD [address] [facility] [address], [place] [address] [place] [address] Referral IDStatRajiasonStart DateExpiration DateVisits RequestedVisits [id number]/19/20247/19/[id number] * CV Imaging (Routine) - AuthorizedSpecialtyDiagnoses / ProceduresReferred By ContactReferred To ContactCardiology Diagnoses Left atrial dilation Mitral valve insufficiency, unspecified etiology Procedures Transthoracic Echo Complete DE ECHO TTHRC R-T 2D W/WOM-MODE COMPL SPEC&COLR D Avelina Chowdhury MD [address] [facility], [place] [address] [place] [address] Referral IDStaEverradha DateExpiration DateVisits RequestedVisits [id number] Perform Procedure * Cardiovascular (Routine) - AuthorizedSpecialtyDiagnoses / ProceduresReferred By ContactReferred To Contact Diagnoses Persistent atrial fibrillation with rapid ventricular response (Multi) Procedures ECG 12 Lead Avelina Chowdhury MD [address] [facility], [address] [place] [address] Referral IDStatusReasonStart DateExpiration DateVisits RequestedVisits [id number]/19/20247/ [facility] Work Phone: Reason for referral (narrative)* Outpatient Procedure (Routine) - AuthorizedSpecialtyDiagnoses / ProceduresReferred By Contact Referred To [facility] [place] Diagnoses Chronic diastolic heart failure (HCC) Procedures ECHO ECHO TTHRC R-T 2D W/WOM-MODE COMPL SPEC&COLR D Kendra Mendoza MD [address] [place] [address] [facility] [place] [address] Ref[facility]StatSal[facility] DateExpiration DateVisits RequestedVisits [id number] Auto-Generated Referral * Transition of Care (Routine) - AuthorizedSpecialtyDiagnoses / Procedures Referred By ContactReferred To [facility] Procedures CARDIOVASCULAR MEDICINE OP FOLLOW UP APPT ORDER Kendra Mendoza MD [address] [place] [address] [place] [address] Referral IDStatTanyaGreil [facility] DateExpiration DateVisits RequestedVisits [id number] PCP Requested Referral [facility] referral (narrative)* Transition of Care (Routine) - AuthorizedSpecialtyDiagnoses / ProceduresReferred By ContactReferred To [facility] Procedures CARDIOVASCULAR MEDICINE OP [place]LLOW [place] [address] [place] [address] Phone: tel: fax: [place] [address] Referral [facility]Status[facility] DateExpiration DateVisits RequestedVisits [id number] PCP Requested Referral [facility] for visit Narrative* Outpatient Procedure (Routine) - ClosedSpecialtyDiagnoses / ProceduresReferred By ContactReferred To Contact [facility] Diagnoses Paroxysmal atrial fibrillation (HCC) Procedures ECHO TRANSESOPHAGEAL ECHO TRANSESOPHAG R-T 2D W/PRB IMG CYRUS I&R Kendra Mendoza MD [address] [place] [address] [place] [address] Referral IDStatus[facility] DateExpiration DateVisits RequestedVisits [id number] Auto-Generated Referral / [facility] for visit Narrative* Diagnostic Procedure Only (Routine) - ClosedSpecialtyDiagnoses / ProceduresReferred By ContactReferred To Contact [facility] Diagnoses Chronic diastolic heart failure (HCC) Procedures NM SPECT/CT CARDIAC AMYLOID RP LOCLZJ BRINDA SPECT W/CT 1 AREA 1 DAY IMAGING Ariana Valles MD [address] [id number] Phone: tel: fax: [facility] [address] [id number] Phone: tel: Referral IDStatusReasonStart DateExpiration DateVisits RequestedVisits [id number] Auto-Generated Referral [facility] Summary Purpose Family History No Family History Records FoundUnknown Family Member Name Dates Details No pertinent family history: Mother(V49.89, Z78.9) Status:ActiveFamily history of malignant neoplasm: Other(V16.9, Z80.9) Status:Active Unknown Family Member Name Dates Details Family history of malignant neoplasm: Other(V16.9, Z80.9) Status:ActiveNo pertinent family history: Mother(V49.89, Z78.9) Status:Active Unknown Family Member Name Dates Details Family history of malignant neoplasm: Other(V16.9, Z80.9) Status:ActiveNo pertinent family history: Mother(V49.89, Z78.9) Status:Active Advance [...] Genevieve Negrete RN * TO Dr. Avelina Chowdhury MD Reason for Referral SpecialtyDiagnoses / ProceduresReferred By ContactReferred To [facility] Procedures CARDIOVASCULAR MEDICINE OP FOLLOW UP APPT ORDER Kendra Mendoza MD [address] [place] [address] [facility] [address] [address] Referral IDStatusReGreil [facility] DateExpiration DateVisits RequestedVisits [id number] Not Required PCP Requested Referral [id number] / ProceduresReferred By ContactReferred To [facility] Diagnoses Paroxysmal atrial fibrillation (HCC) Procedures CONSULT TO ELECTROPHYSIOLOGY OFFICE/OUTPATIENT [facility] 60 MINUTES Kendra Mendoza MD [address] [place] [address] Referral IDStatus[facility] DateExpiration DateVisits RequestedVisits [id number] PCP Requested Referral [id number] / ProceduresReferred By ContactReferred To [facility] Diagnoses Paroxysmal atrial fibrillation (HCC) Chronic systolic (congestive) heart failure (HCC) Procedures ECHO ECHO TTHRC R-T 2D W/WOM-MODE COMPL SPEC&COLR D Kendra Mendoza MD [address] [place] [address] [place] [address] Referral IDStatusReasonStart DateExpiration DateVisits RequestedVisits [id number] Request Auto-Generated Referral [id number] / ProceduresReferred By ContactReferred To [facility] Diagnoses Paroxysmal atrial fibrillation (HCC) Procedures ECHO TRANSESOPHAGEAL ECHO TRANSESOPHAG R-T 2D W/PRB IMG CYRUS I&R Kendra Mendoza MD [address] [place], [place] [address] [place] [address] Referral IDStatusReasonStart DateExpiration DateVisits RequestedVisits [id number] Request Auto-Generated Referral [id number] / ProceduresReferred By ContactReferred To [facility] Diagnoses Atrial fibrillation, persistent (HCC) Typical atrial flutter (HCC) Procedures CARDIOVASCULAR MEDICINE OP FOLLOW UP APPT ORDER Rd Qureshi MD [address] [place] [address] [place] [address] Referral IDStatusReasonStlester DateExpiration DateVisits RequestedVisits [id number] Not Required PCP Requested Referral [id number] / ProceduresReferred By ContactReferred To ContactCardiology / CARDIOVASCULAR MEDICINE Diagnoses Gastrointestinal bleeding, lower Atrial fibrillation, persistent (HCC) Atypical atrial flutter (HCC) Procedures CONSULT TO ELECTROPHYSIOLOGY OFFICE/OUTPATIENT [facility] [address] Qureshi MD [address] [place] [address] Card [facility] Main [address] [place] [address] Referral IDStatusReasonStart DateExpiration DateVisits RequestedVisits [id number] PCP Requested Referral Additional Source Comments Source Comments (unrecognize d section and content) In the event this informatio n is protected by the Federal Confidentiality of Alcohol and Drug Abuse Patient Records regulations: The Federal rules restrict any use of the information to criminally investigate or prosecute any alcohol or drug abuse patient.[facility] HospitalIn the event this information is protected by the Federal Confidentiality of Alcohol and Drug Abuse Patient Records regulations: The Federal rules restrict any use of the information to criminally investigate or prosecute any alcohol or drug abuse patient.[facility] HospitalIn the event this information is protected by the Federal Confidentiality of Alcohol and Drug Abuse Patient Records regulations: The Federal rules restrict any use of the information to criminally investigate or prosecute any alcohol or drug abuse patient.[facility] HospitalIn the event this information is protected by the Federal Confidentiality of Alcohol and Drug Abuse Patient Records regulations: The Federal rules restrict any use of the information to criminally investigate or prosecute any alcohol or drug abuse patient.[facility] HospitalIn the event this information is protected by the Federal Confidentiality of Alcohol and Drug Abuse Patient Records regulations: The Federal rules restrict any use of the information to criminally investigate or prosecute any alcohol or drug abuse patient.[facility] HospitalIn the event this information is protected by the Federal Confidentiality of Alcohol and Drug Abuse Patient Records regulations: The Federal rules restrict any use of the information to criminally investigate or prosecute any alcohol or drug abuse patient.[facility] HospitalIn the event this information is protected by the Federal Confidentiality of Alcohol and Drug Abuse Patient Records regulations: The Federal rules restrict any use of the information to criminally investigate or prosecute any alcohol or drug abuse patient.[facility] HospitalIn the event this information is protected by the Federal Confidentiality of Alcohol and Drug Abuse Patient Records regulations: The Federal rules restrict any use of the information to criminally investigate or prosecute any alcohol or drug abuse patient.[facility] HospitalIn the event this information is protected by the Federal Confidentiality of Alcohol and Drug Abuse Patient Records regulations: The Federal rules restrict any use of the information to criminally investigate or prosecute any alcohol or drug abuse patient.[facility] HospitalIn the event this information is protected by the Federal Confidentiality of Alcohol and Drug Abuse Patient Records regulations: The Federal rules restrict any use of the information to criminally investigate or prosecute any alcohol or drug abuse patient.[facility] HospitalIn the event this information is protected by the Federal Confidentiality of Alcohol and Drug Abuse Patient Records regulations: The Federal rules restrict any use of the information to criminally investigate or prosecute any alcohol or drug abuse patient.[facility] HospitalIn the event this information is protected by the Federal Confidentiality of Alcohol and Drug Abuse Patient Records regulations: The Federal rules restrict any use of the information to criminally investigate or prosecute any alcohol or drug abuse patient.[facility] HospitalIn the event this information is protected by the Federal Confidentiality of Alcohol and Drug Abuse Patient Records regulations: The Federal rules restrict any use of the information to criminally investigate or prosecute any alcohol or drug abuse patient.[facility] HospitalIn the event this information is protected by the Federal Confidentiality of Alcohol and Drug Abuse Patient Records regulations: The Federal rules restrict any use of the information to criminally investigate or prosecute any alcohol or drug abuse patient.[facility] HospitalIn the event this information is protected by the Federal Confidentiality of Alcohol and Drug Abuse Patient Records regulations: The Federal rules restrict any use of the information to criminally investigate or prosecute any alcohol or drug abuse patient.[facility] HospitalIn the event this information is protected by the Federal Confidentiality of Alcohol and Drug Abuse Patient Records regulations: The Federal rules restrict any use of the information to criminally investigate or prosecute any alcohol or drug abuse patient.[facility] HospitalIn the event this information is protected by the Federal Confidentiality of Alcohol and Drug Abuse Patient Records regulations: The Federal rules restrict any use of the information to criminally investigate or prosecute any alcohol or drug abuse patient.[facility] HospitalIn the event this information is protected by the Federal Confidentiality of Alcohol and Drug Abuse Patient Records regulations: The Federal rules restrict any use of the information to criminally investigate or prosecute any alcohol or drug abuse patient.[facility] HospitalIn the event this information is protected by the Federal Confidentiality of Alcohol and Drug Abuse Patient Records regulations: The Federal rules restrict any use of the information to criminally investigate or prosecute any alcohol or drug abuse patient.[facility] HospitalIn the event this information is protected by the Federal Confidentiality of Alcohol and Drug Abuse Patient Records regulations: The Federal rules restrict any use of the information to criminally investigate or prosecute any alcohol or drug abuse patient.[facility] HospitalIn the event this information is protected by the Federal Confidentiality of Alcohol and Drug Abuse Patient Records regulations: The Federal rules restrict any use of the information to criminally investigate or prosecute any alcohol or drug abuse patient.[facility] HospitalIn the event this information is protected by the Federal Confidentiality of Alcohol and Drug Abuse Patient Records regulations: The Federal rules restrict any use of the information to criminally investigate or prosecute any alcohol or drug abuse patient.[facility] HospitalIn the event this information is protected by the Federal Confidentiality of Alcohol and Drug Abuse Patient Records regulations: The Federal rules restrict any use of the information to criminally investigate or prosecute any alcohol or drug abuse patient.[facility] Reason for Visit (unrecogniz ed section and content) ReasonCommentsEpiretinal Membrane Follow UpOUChoroidal nevus of left eyeReason CommentsConsultReasonCommentsPatient EducationEPS- SHARON/DCCReasonComments AppointmentEPS- SHARON/DCCReasonCommentsFollow UpSpecialtyDiagnoses / Procedures Referred By ContactReferred To [facility] [place] Procedures CARDIOVASCULAR MEDICINE [place] M[place] [address] [place] [id number] [facility] [address] [address] Referral IDStatusReasonStart DateExpiration DateVisits RequestedVisits [id number] Not Required PCP Requested Referral 1ReasonOnset DateCommentsAtrial Yblvogvzvjaf36/02/2024Reason Onset DateCommentsAtrial Tilqkjodeymr45/09/2024ReasonCommentsPatient Update ProceduresReasonCommentsFollow-upPER HMI Increased SOB, Dry CoughSpecialty Diagnoses / ProceduresReferred By ContactReferred To Contact Diagnoses Persistent atrial fibrillation with rapid ventricular response (Multi) Procedures ECG 12 Lead Avelina Chowdhury MD [address] [facility] 2, [facility] [address] [place] [address] Referral IDStatusSelect Specialty HospitalStlester DateExpiration DateVisits RequestedVisits [id number]/[id number]/[id number] UpReason Onset DateCommentsAtrial Hfkelrucssvn43/21/2025ReasonCommentsRadiology [place] SpecialtyDiagnoses / ProceduresReferred By ContactReferred To ContactMOLECULAR & FUNCTIONAL IMAGING Diagnoses Chronic diastolic heart failure (HCC) Procedures NM SPECT/CT CARDIAC AMYLOID RP LOCLZJ BRINDA SPECT W/CT 1 AREA 1 DAY IMAGING Ariana Valles MD [address] [id number] Phone: tel: fax: Molecular Imaging [address] [phone] Phone: tel: Referral IDStatusReasonStart DateExpiration DateVisits RequestedVisits [id number] Auto-Generated Referral /[id number]wxxbTjdsbobbv / ProceduresReferred By ContactReferred To [facility] [place] Procedures CARDIOVASCULAR MEDICINE OP FOLLOW UP APPT ORDER Kendra Mendoza MD [address] [place] [address] Phone: tel: fax: [facility] [address] [place] [address] Referral IDStatusReasonStart DateExpiration DateVisits RequestedVisits [id number] PCP Requested Referral /[id number] SurgeryPVI ablation+ Watchman implant Care Teams (unrecognized sec tion and content) Team MemberRelationshipSpecialtyStart DateEnd [facility]ly [facility] Levi Dumont [address] [phone] PCP - General09/11/03Team MemberRelationshipSpecialtyStart DateEnd [facility] Levi Dumont [address] [phone] PCP - General09/11/03Team MemberRelationshipSpecialtyStart DateEnd Date Samantha Maya MD [address] [place] [address] PCP - GeneralFapaly [facility]02/05/24Team MemberRelationshipSpecialtyStart DateEnd Date Samantha Maya MD [address] [place] [facility] [place] [place] [address] PCP - GeneralFamily Medicine02/05/24Team MemberRelationshipSpecialtyStart DateEnd Date Samantha Maya MD [address] [place] [facility] [place] [place] [address] PCP - GeneralFamily Medicine02/05/24Team MemberRelationshipSpecialtyStart DateEnd Date Samantha Maya MD [address] [place] [facility] [place] [place] [address] PCP - GeneralFamily Medicine02/05/24Team MemberRelationshipSpecialtyStart DateEnd Date Samantha Maya MD [address] [place] [facility] [place] [place] [address] PCP - GeneralFamily Medicine02/05/24Team MemberRelationshipSpecialtyStart DateEnd Date Levi Dumont [address] [phone] PCP - General/ Samantha Maya MD [address] [place] [facility] [place] [place] [address] PCP - GeneralFamily Medicine02/05/24Team MemberRelationshipSpecialtyStart DateEnd Date Samantha Maya MD [address] [place] [facility] [place] [place] [address] PCP - GeneralFamily Medicine02/05/24Team MemberRelationshipSpecialtyStart DateEnd Date Samantha Maya MD [address] [place] [facility] [place] [place] [address] PCP - GeneralFamily Medicine02/05/24Team MemberRelationshipSpecialtyStart DateEnd Date Samantha Maya MD [address] [place] [address] PCP - GeneralFamily Medicine02/05/24Team MemberRelationshipSpecialtyStart DateEnd Date Samantha Maya MD [address] [facility] [place] [address] PCP - Raaqdtx40/12/15Team MemberRelationshipSpecialtyStart DateEnd Date Samantha Maya MD [address] [facility] [place] [address] PCP - GeneralFamily Medicine02/05/24Team MemberRelationshipSpecialtyStart DateEnd Date Samantha Maya MD [address] [place] [address] PCP - GeneralFamily Medicine02/05/24Team MemberRelationshipSpecialtyStart DateEnd Date Samantha Maya MD [address] [facility] [place] [address] PCP - GeneralFamily Medicine02/05/24Team MemberRelationshipSpecialtyStart DateEnd Date Samantha Maya MD [address] [place] [facility] [place] [place] [address] PCP - GeneralFamily Medicine02/05/24Team MemberRelationshipSpecialtyStart DateEnd Date Samantha Maya MD [address] [place] [address] PCP - Generalmily Medicine02/05/24Te MemberRelationshipSpecialtyStart DateEnd Date Samantha Maya MD [address] [place] [address] PCP - [facility]02/05/24Team MemberRelationshipSpecialtyStart DateEnd Date Samantha Maya MD [address] [place] [address] PCP - [facility] Medicine02/05/24 [place] [address] [place] [address] Specialty Care CoordinatorHematology/Oncology10/06/24Team MemberRelationship SpecialtyStart DateEnd Date Samantha Maya MD [address] [place] [address] [facility]02/[facility]/24 Daisy Jaramillo, DARRIAN [address] [place] [address] Specialty Care CoordinatorHematology/Oncology10/06/24Team MemberRelationship SpecialtyStart DateEnd Date Samantha Maya MD [address] [place] [address] PCP - GeneralFami Medicine02/05/24 [place] [address] [place] [address] Specialty Care CoordinatorHematology/Oncology10/06/24 (unrecognized sect ion and content) No Status Records FoundNo Status Records FoundNo Status Records FoundNo Status Records FoundNo Status Records FoundNo Status Records FoundNo Status Records FoundNo Status Records FoundNo Status Records FoundNo Status Records FoundNo Status Records FoundNo Status Records FoundNo Status Records FoundNo Status Records Found INFORMATION SOURCE (unrecogn ized section and content) DATE CREATED AUTHOR 09/22/2022 [facility] DATE CREATED AUTHOR AUTHOR'S ORGANIZ ATION 11/16/2022 [facility] DATE CREATED AUTHOR AUTHOR'S ORGANIZ ATION 12/02/2022 [facility] DATE CREATED AUTHOR AUTHOR'S ORGANIZ ATION 01/29/2023 [facility] DATE CREATED AUTHOR AUTHOR'S ORGANIZ ATION 01/04/2024 [facility] DATE CREATED AUTHOR AUTHOR'S ORGANIZ ATION 01/13/2024 [facility] DATE CREATED AUTHOR AUTHOR'S ORGANIZ ATION 02/03/2024 [facility] DATE CREATED AUTHOR AUTHOR'S ORGANIZ ATION 06/10/2024 [facility] DATE CREATED AUTHOR AUTHOR'S ORGANIZ ATION 06/16/2024 [facility] DATE CREATED AUTHOR AUTHOR'S ORGANIZ ATION 01/04/2025 [facility] DATE CREATED AUTHOR AUTHOR'S ORGANIZ ATION 03/13/2025 [facility] FOR RECORDS PERTAINING TO PATIENTS WHO ARE [...] THE PRIMARY CLINICAL RECORDS. [facility] [employer] [facility]. provides no warranty or guarantee of the accuracy or completeness of information in this document.
[2025-04-24 09:49] LABS: Hematocrit 39.7 % (42.0-54.0); Hemoglobin 13.2 g/dL (14.0-18.0); Immature Granulocytes Abs Auto 0.02 10^3/uL (0.00-0.03); Immature Granulocytes Pct Auto 0.4 % (0.0-0.5); Lymphocytes Absolute Auto 1.1 10^3/uL (1.2-3.8); Mean Corpuscular HGB Conc 33.2 g/dL (29.9-35.2); Mean Corpuscular Hemoglobin 34.4 pg (25.9-34.0); Mean Corpuscular Volume 103.4 fL (80.0-94.0); Platelet Count 209 10^3/uL (150-450); Red Blood Count 3.84 10^6/uL (4.70-6.10); White Blood Count 5.0 10^3/uL (4.0-11.0)
[2025-04-24 10:30] LABS: Alanine Aminotransferase 26 U/L (16-63); Albumin Globulin Ratio 0.9; Albumin Level 3.6 g/dL (3.4-5.0); Alkaline Phosphatase 79 U/L (46-116); Anion Gap 10.5; Aspartate Amino Transferase 32 U/L (15-37); Blood Urea Nitrogen 26.0 mg/dL (7.0-18.0); Calcium 9.5 mg/dL (8.5-10.1); Carbon Dioxide 32.9 mmol/L (21.0-32.0); Chloride 104 mmol/L (98-107); Cholesterol 165 mg/dL (<=200); Estimated GFR (African America >60 (>=60 mL/min/1.73m^2); Estimated GFR (Non-African Ame 58 (>=60 mL/min/1.73m^2); Free T3 2.98 pg/mL (2.18-3.98); Globulin 4.0 g/dL; Glucose 95 mg/dL (74-106); HDL Cholesterol 65 mg/dL (40-60); Potassium 4.4 mmol/L (3.5-5.1); Sodium 143 mmol/L (136-145); Thyroid Stimulating Hormone 1.944 uIU/mL (0.358-3.740); Total Protein 7.6 g/dL (6.4-8.2); Triglycerides 58 mg/dL (<=150); Uric Acid 7.2 mg/dL (3.5-7.2); VLDL CHOLESTEROL 11.6 mg/dL
[2025-04-24 10:33] LABS: NT Pro B Type Natriuretic Pept 337.0 pg/mL (<=1800.0)
[2025-04-25 15:08] LABS: Albumin 3.8 g/dL (2.9-4.4); Alpha-1-Globulin 0.1 g/dL (0.0-0.4); Alpha-2-Globulin 0.7 g/dL (0.4-1.0); Gamma Globulin 1.8 g/dL (0.4-1.8)
== END 2025-04-24 09:07 | disposition home or self-care (01) ==
PROVIDERS: PCP Family Medicine; Visit Provider Family Medicine
DX: D64.9 Anemia, unspecified (principal); I34.0 Nonrheumatic mitral (valve) insufficiency; E78.00 Pure hypercholesterolemia, unspecified; I48.91 Unspecified atrial fibrillation; R73.09 Other abnormal glucose; M10.9 Gout, unspecified; Z12.12 Encounter for screening for malignant neoplasm of rectum; E03.9 Hypothyroidism, unspecified; Z12.5 Encounter for screening for malignant neoplasm of prostate; D50.9 Iron deficiency anemia, unspecified; R06.00 Dyspnea, unspecified; I50.41 Acute combined systolic (congestive) and diastolic (congestive) heart failure; I11.0 Hypertensive heart disease with heart failure
CPT/HCPCS: 36415; 80053; 80061; 83036; 83880; 84155; 84165; 84436; 84443; 84481; 84484; 84550; 85025; G0103

== ENCOUNTER 2025-04-25 11:11 | Outpatient (OUT) | payer MEDICARE, OTHER, SELFPAY ==
--- OUTSIDE RECORDS SUMMARY | 2025-04-25 11:18 | XMS_ITS | CCD ---
Author Organization [facility] Care Team Providers Care Brineyard Supervisor Name Role Phone Levi Dumont Primary Care Provider [phone] FRANCESCO ., DR SINGH Admitting Unavailable HOY [...] Chowdhury, Dr. Avelina Frank Attending Anita vailable Grayd, Dr. Avelina Frank Referring Anita vailable Francesco, [...] Care Unavailable Levi Dumont Primary Care Provider [phone] Samantha Maya MD Primary Care Provider Levi Dumont Primary Care Provider [phone] Samantha Maya MD Primary Care Provider [phone] Samantha Maya Primary Care Physician [phone] MD MIKE SLADE Attending Unav ailMD MIKE Craig Referring Unav ailable MD MIKE SLADE Admitting Unav ailable MD MIKE SLADE Attending Unav ailable Ella RN, [facility] Unavailable LAYA SLADENA Attending Unavail able NKANSGUY-AMBERTRAMRA, [...] [No Known Medication Allergies]Propensity to adverse reactions (disorder)[facility] Rep[facility] Medications Current Medications MedicationDrug Class(es)DatesSig (Normalized)Sig (Original)8 hr acetaminophen 650 mg extended release oral tablet (20 sources)Start: 53-53-0033Smlpoym 8 HR Arthritis Pain 650 mg oral tablet, extended release 1,300 mg = 2 tab(s), Oral, q8hr, Refills(s) 0, Pain Start Date: 06/09/24 Status: Ordered Repeat number: 1Start: 59-34-1412zjoe 1 tablet by mouth every eight hoursTylenol [...] mg oral tablet (20 sources)Factor Xa InhibitorStart: 75-58-4085czwd 1 tablet by mouth twice dailyEliquis 2.5 mg oral tablet 2.5 mg = 1 tab(s), Oral, BID, Refills(s) 0, Blood Thinner Start Date: 06/09/24 Status: Ordered Repeat number: 1Start: 10-27-2022 End: 48-72-7416cuhw 1 tablet by mouth once dailyapixaban (ELIQUIS) 5 mg tab(s) Take 5 mg by mouth once daily. 10/27/2022 05/24/2024 DiscontinuedStart: 00-46-1867dnyq 1 tablet by mouth twice dailyapixaban (ELIQUIS) 5 mg tab(s) Take 5 mg by mouth two times a day. 10/27/2022 Activeascorbic acid 250 mg oral tablet (20 sources)Vitamin CStart: 61-89-9733olrt 250 mg by mouth once dailyVitamin C 250 mg, Oral, Daily, Refills(s) 0, Prophylaxis Start Date: 03/01/19 Status: Ordered Repeatnumber: 1Start: 27-43-5605Rurzizr C Daily, Refills(s) 0 Start Date: 03/01/19 [...] ophthalmic solution (1 source)Diagnostic DyeStart: 11-14-2021 End: 92-15-0426ocadpsmnyij-benoxinate 0.25-0.4 % 1 Drop (FLURESS)Calcium Carbonate / vitamin D3 (20 sources)CALCIUM CARBONATE/VITAMIN D3 (CALCIUM + D ORAL) Take by mouth once daily. ActiveCALCIUM CARBONATE/VITAMIN D3 (CALCIUM + D ORAL) Take by mouth. ActiveCALCIUM CARBONATE/VITAMIN D3 (CALCIUM + D ORAL) Take by mouth. 0 Active Comment on above:Take by mouth.Centrum Silver (6 sources)Start: 10-67-3280rcgb 1 tablet by mouth once dailyCentrum Silver 1 tab(s), Oral, Daily, Refill(s) 0, Prophylaxis Start Date: 03/01/19 Status: Ordered Repeat number: 1Start: 73-74-4163dgso 1 tablet by mouth once daily Centrum Silver 1 tab(s), Oral, Daily, Refill(s) 0, Prophylaxis Start Date: 03/01/19 Status: OrderedStart: 67-57-0299trax 1 tablet by mouth once dailyCentrum Silver tab(s), Oral, Daily, Refill(s) 0 Start Date: 03/01/19 Status: Ordered docusate sodium 50 mg oral capsule (4 sources)Start: 78-41-2437gwaa 1 capsule by mouth twice daily as needed for constipationColace 50 mg oral capsule 50 mg = 1 cap(s), Oral, BID, PRN for constipation, # 180 cap(s), Refills(s) 0, Pharmacy: [facility]/pharmacy #[id number], 165, cm, 06/09/24 13:18:00 EST, Height/Length Dosing, 159.8, kg,06/09/24 13:18:00 EST, Weight Dosing Start Date: 06/16/24 Status: Ordered Quantity: 180.0 Unit: cap(s) Repeat number: 1indapamide 1.25 mg oral tablet (4 sources)Thiazide-like DiureticStart: 10-19-2023 End: 09-16-4290rbao 1 tablet by mouth once dailyindapamide (Lozol) 1.25 mg tablet Indications: Essential hypertension, benign Take 1 tablet (1.25 mg) by mouth once daily. 90 tablet 3 10/19/2023 10/18/2024 ActiveStart: 68-55-3898npjs 1 tablet by mouth once dailyIndapamide 1.25 MG Oral Tablet TAKE 1 TABLET ONCE DAILY. Quantity: 90 Refills: 3 Ordered: 24-Oct-2022 Avelina Chowdhury MD Start : 24-Oct-2022 Active new startlisinopril 5 mg oral tablet (20 sources)Angiotensin Converting Enzyme InhibitorStart: 24-24-8978xxlv 1 tablet by mouth once dailylisinopril 5 mg Tab 5 mg = 1 tab(s), Oral, Daily, # 90 tab(s), Refills(s) 0, High blood pressure Start Date: 06/09/24 Status: Ordered Quantity: 90.0 Unit: tab(s) Repeat number: 1magnesium oxide 400 mg oral tablet (20 sources)Start: 31-74-3738ovdl 1 tablet by mouth once dailymagnesium oxide 400 mg (240 mg elemental magnesium) oral tablet See Instructions, Refill(s) 0, 1 tab daily 400 mg, Prophylaxis Start Date: 06/09/24 Status: Ordered Repeat number: 1Magnesium 500 MG CAPS TAKE 1 CAPSULE Daily Quantity: 0 Refills: 0 Ordered: 24-Oct-2022 DO Wzbueh96 hr metoprolol succinate 50 mg extended release oral tablet (7 sources)beta-Adrenergic BlockerStart: 12-25-2023 End: 34-86-1872rpte 1 tablet by mouth once dailymetoprolol succinate ER (TOPROL XL) 50 mg 24 hr tablet Take 50 mg by mouth once daily. 12/25/2023 Active multivitamin with minerals iron-free (Centrum Silver) (1 source)take 1 tablet by mouth once dailymultivitamin with minerals iron-free (Centrum Silver) Take 1 tablet by mouth once daily. Active Lxiziqqvkifjy-Kaxxmwlp-Kxsvcp (CENTRUM SILVER) tab (20 sources)take 1 tablet by mouth once vaoqrZsqdlkjqjecex-Euhdzbap-Hdhovt (CENTRUM SILVER) tab Take 1 tablet by mouth once daily. ActiveoxyCODONE hydrochloride 5 mg oral capsule (4 sources)Opioid AgonistStart: 83-34-7597xfyt 1 capsule by mouth every six hours as needed for painoxyCODONE 5 mg Cap 5 mg = 1 cap(s), Oral, q6hr, PRN for pain, # 4 cap(s), Refills(s) 0, Pharmacy: [facility]/pharmacy #[id number], 165, cm, 06/09/24 13:18:00 EST, Height/Length Dosing, 159.8, kg, 06/09/24 13:18:00 EST, Weight Dosing Start Date: 06/16/24 Status: Ordered Quantity: 4.0 Unit: cap(s) Repeat number: 1phenylephrine hydrochloride 25 mg/ml ophthalmic solution (1 source)alpha-1 Adrenergic AgonistStart: 11-14-2021 End: 48-57-6380WGNUFVukdztrb 2.5 % 1 Drop (AK-DILATE, LUZMARIA-SYNEPHRINE) proparacaine hydrochloride 5 mg/ml ophthalmic solution (1 source)Local AnestheticStart: 11-14-2021 End: 78-54-6581jxsthjqiljbt 0.5 % 1 Drop (ALCAINE)saw palmetto 450 mg capsule (1 source)saw palmetto 450 mg capsule Take by mouth. Activesaw palmetto 450 mg oral capsule (6 sources)Start: 22-58-6364rgrx 1 capsule by mouth once dailysaw palmetto 450 mg oral capsule 450 mg = 1 cap(s), Oral, Daily, Refills(s) 0, Prophylaxis Start Date: 06/09/24 Status: Ordered Repeat number: 1Start: 50-37-6777oyxn 1 capsule by mouth once dailysaw palmetto 450 mg oral capsule 450 mg = 1 cap(s), Oral, Daily, Refills(s) 0, Prophylaxis Start Date: 06/09/24 Status: OrderedStart: 06-09-2024 take 1 mg by mouth once dailysaw palmetto 450 mg oral capsule mg cap(s), Oral, Daily, Refills(s) 0 Start Date: 06/09/24 Status: OrderedSelenium (6 sources)Start: 37-44-9346voch 200 ug by mouth once dailyselenium 200 mcg, Oral, Daily, Refills(s) 0, Prophylaxis Start Date: 06/09/24 Status: Ordered Repeat number: 1Start: 88-17-2968slyq 200 ug by mouth once dailyselenium 200 mcg, Oral, Daily, Refills(s) 0, Prophylaxis Start Date: 06/09/24 Status: OrderedStart: 98-41-7065obzp 200 ug by mouth once dailyselenium 200 [...] source)selenium 200 mcg capsule Take by mouth. Pgubmz306 ml sodium chloride 9 mg/ml prefilled syringe (10 sources)Start: 02-04-2024 End: 26-78-2549qizcbx chloride 0.9 %, flush, (BD POSIFLUSH) syringe Indications: PAF (paroxysmal atrial fibrillation) (HCC) Inject 2-10 mL intravenously as directed. For Echo procedure 10 mL 12/19/2024 12/19/2025 Activetamsulosin hydrochloride 0.4 mg oral capsule (4 sources)alpha-Adrenergic BlockerStart: 08-04-3236sroa 1 capsule by mouth once dailyFlomax 0.4 mg Cap 0.4 mg = 1 cap(s), Oral, Daily, # 10 cap(s), Refills(s) 0, Pharmacy: [facility]/pharmacy#[id number], 165, cm, 06/09/24 13:18:00 EST, Height/Length Dosing, 159.8, kg, 06/09/24 13:18:00 EST, Weight Dosing Start Date: 06/16/24 Status: Ordered Quantity: 10.0 Unit: cap(s) Repeat number: 1tropicamide 10 mg/ml ophthalmic solution (1 source)AnticholinergicStart: 11-14-2021 End: 64-25-8946akycxmczryj 1 % 1 Drop (MYDRIACYL)[place] Calcium and Vitamin D (2 sources)Start: 94-44-3385kdkm 1 mL by mouth twice dailyWellesse Calcium [...] (Original)Benzocaine (1 source)Standardized Chemical AllergenStart: 02-09-2024 End: 23-47-6966LCTHBQJ, X (OR/PROCEDURE) PRN, Starting on Thu02/09/24 at 1334, Until Thu02/09/24 at 1334, IntraprocedureCalcium (3 sources)Phosphate Binder, CalciumCalcium + D TABS TAKE 1 TABLET DAILY. Quantity: 0 Refills: 0 Ordered: 24-Oct-2022 DO ActiveCentrum Silver TABS (3 sources)Centrum Silver TABS TAKE 1 TABLET DAILY. Quantity: 0 Refills: 0 Ordered: 24-Oct-2022 DO Vzmmds76 hr dilTIAZem hydrochloride 180 mg extended release oral capsule (4 sources)Calcium Channel BlockerStart: 11-10-2015 End: 83-29-0120djfstwmvg CD (CARDIZEM CD, CARTIA XT) 180 mg 24 hr capsule Take 180 mg by mouth as directed. 11/10/2015 02/04/2024 DiscontinuedComment on above: Take 180 mg by mouth as directed.docosahexaenoic acid 120 mg / eicosapentaenoic acid 180 mg oral capsule (2 sources) End: 42-99-4381wrzj 1 capsule by mouth once dailyDocosahexanoic Acid-Eicosapent 120-180 mg capsule Take 1,000 mg by mouth once daily. 02/04/2024 Discontinued Comment on above:Take 1,000 mg by mouth once daily.1 ml fentaNYL 0.05 mg/ml injection (1 source)Opioid AgonistStart: 02-09-2024 End: 92-10-0955QLZLBZQFLYZ, X (OR/PROCEDURE) PRN, Starting on Thu02/09/24 at 1337, Until Thu02/09/24 at 1414, IntraprocedureFLAXSEED OIL (OMEGA 3 ORAL) (2 sources) End: 75-88-5112GDVPWDBQ OIL (OMEGA 3 ORAL) Take by mouth. 02/04/2024 DiscontinuedFLAXSEED OIL (OMEGA 3 ORAL) Take by mouth. 0 ActiveComment on above: Take by mouth.FOLIC ACID/MULTIVIT-MIN/LUTEIN (CENTRUM SILVER ORAL) (2 sources) End: 42-41-6359HMKAY ACID/MULTIVIT-MIN/LUTEIN (CENTRUM SILVER ORAL) Take by mouth. 02/04/2024 DiscontinuedFOLIC ACID/MULTIVIT-MIN/LUTEIN (CENTRUM SILVER ORAL) Take by mouth. 0 ActiveComment on above:Take by mouth.furosemide 40 mg oral tablet (9 sources)Loop DiureticStart: 01-28-2024 End: 56-25-9691IDATM 40 mg tablet Take 1 tablet by mouth as needed (for weight gain/ fluid retention). 03/18/2024 05/06/2024 Discontinued (Discontinued by another Health Care Provider)lidocaine hydrochloride 0.02 mg/mg topical gel (1 source)Antiarrhythmic, Amide Local AnestheticStart: 02-09-2024 End: 02-09-2024X (OR/PROCEDURE) PRN, Starting on Thu02/09/24 at 1334, Until Thu02/09/24 at 1334, Intraprocedurelosartan potassium 100 mg oral tablet (4 sources)Angiotensin 2 Receptor BlockerStart: 11-10-2015 End: 42-37-1258svll 1 tablet by mouth once dailylosartan (COZAAR) 100 mg tablet Take 100 mg by mouth once daily. 11/10/2015 02/04/2024 DiscontinuedComment on above:Take 100 mg by mouth once daily.magnesium F-awgeba-avbzhksxiuw 42 mg (500 mg)- 250 mg tablet extended release (1 source) End: 97-29-0998ovpsxlanc U-qgqnpy-dshzrktnnmo 42 mg (500 mg)- 250 mg tablet extended release Take by mouth. 12/25/2023 Discontinued (Med List Cleanup)5 ml midazolam 1 mg/ml injection (1 source)BenzodiazepineStart: 02-09-2024 End: 00-67-0723DSAAQUTCZFC, X (OR/PROCEDURE) PRN, Starting on Thu02/09/24 at 1337, Until Thu02/09/24 at 1414, Intraprocedurepotassium chloride 10 meq extended release oral tablet (9 sources)Start: 03-18-2024 End: 27-35-5905mbiu 1 tablet by mouth once daily as neededKLOR-CON 10 10 mEq tablet Take 1 tablet by mouth as needed (on days that you take lasix). 03/18/2024 05/06/2024 Discontinued (Discontinued by another Health Care Provider)Start: 02-01-2024 End: 49-58-7542uiqp 1 tablet by mouth twice dailyKLOR-CON 10 10 mEq tablet Take 10 mEq by mouth two times a day. 02/01/2024 03/18/2024 Discontinuedrivaroxaban 20 mg oral tablet (3 sources)Factor Xa InhibitorStart: 60-59-2423doix 1 tablet by mouth once daily Xarelto 20 MG Oral Tablet Take 1 tablet daily Quantity: 90 Refills: 3 Ordered: 04-Nov-2022 Avelina Chowdhury MD Start : 24-Oct-2022 ActiveSaw Afton 450 MG Oral Capsule (3 sources)Saw Afton 450 MG Oral Capsule TAKE DIRECTED. Quantity: 0 Refills: 0 Ordered: 24-Oct-2022 DO ActiveSaw Afton Fruit 450 mg cap (1 source)Start: 05-24-2020 End: 21-73-9332tlnn 1 capsule by mouth once dailySaw Afton Fruit 450 mg cap Take 450 mg by mouth once daily. 05/24/2020 02/04/2024 DiscontinuedSelenium 200 MCG Oral Capsule (3 sources)Selenium 200 MCG Oral Capsule TAKE DIRECTED. Quantity: 0 Refills: 0 Ordered: 24-Oct-2022 DO Activevitamin b6 200 mg oral tablet (2 sources) End: 77-56-5454tdyd 1 tablet by mouth once dailyPyridoxine HCl 200 mg tablet Take 200 mg by mouth once daily. 02/04/2024 DiscontinuedComment on above:Take 200 mg by mouth once daily. Problems Active Problems Problem ClassificationProblemDateDocumented DateEpisodic/ChronicCalculus of urinary tract (20 sources)History of calculus of kidney; Translations: [Kidney stone]Onset: 514677-49-1147FgclsmwqZedxlyy dysrhythmias (20 sources)Persistent atrial fibrillation; Translations: [Atrial fibrillation] Onset: 03-18-2023 Resolved: 944283-57-9201ExqupwtMufvnpe dysrhythmias (1 source)Tachycardia-induced cardiomyopathy; Translations: [Tachycardia, unspecified]31-72-9566LjmywvcaFmuhupadlc heart failure; nonhypertensive (20 sources)Unspecified diastolic (congestive) heart failure; Translations: [Chronic systolic heart failure]Onset: 023445-62-8564AwfenwvNpgmeqmyb of lipid metabolism (4 sources)Hyperlipidemia, unspecified; Translations: [Hyperlipidemia]Onset: 563936-05-3039VcsvtqyXxtwksinx hypertension (19 sources)Benign essential hypertension; Translations: [Benign essential hypertension]Onset: 10-25-9488KqxxfcjCrmkgmposcyfkhjo hemorrhage (20 sources)Lower gastrointestinal hemorrhage; Translations: [Gastrointestinal hemorrhage, unspecified]Onset: 649196-38-4669LuvvvdbwEbkmauyhpbzlv symptoms and ill-defined conditions (12 sources)Increased frequency of urination; Translations: [Nocturia]03-01-2019 EpisodicHeart valve disorders (20 sources)Mitral valve regurgitation; Translations: [Mitral valve disorders] Onset: 67-89-3222EzstudiHopyjzihcpz of prostate (8 sources)Benign prostatic hypertrophy with outflow obstruction; Translations: [Benign prostatic hyperplasia with lower urinary tract symptoms]Onset: 781215-10-0926EppmoilQuytsazueshd with complications and secondary hypertension (1 source)Hypertensive heart disease with heart failure; Translations: [HTN HEART DISEASE W/HEART FAIL]Onset: 71-98-6403JlxczigNtnufntvt of unspecified nature or uncertain behavior (5 sources)Monoclonal gammopathy (clinical); Translations: [Monoclonal gammopathy]Onset: 048615-11-4587NpmpwbkMjyhrewubtsilz (9 sources)Arthritis; Translations: [Unspecified osteoarthritis, unspecified site]Onset: 460162-16-3644LvhuiejIzpnj aftercare (3 sources)Drug therapy finding; Translations: [Long-term (current) use of other medications]EpisodicOther aftercare (7 sources)Long-term current use of anticoagulant; Translations: [assisted (current) use of anticoagulants]Onset: 554073-07-2284MssmflscCuhqy and ill-defined heart disease (14 sources)Left atrial dilatation; Translations: [Cardiomegaly]Onset: 871220-18-8359WqakhzbPdffo and ill-defined heart disease (4 sources)Cardiomegaly; Translations: [Cardiomegaly]Onset: 12-35-7950Yrwpitg Other and unspecified benign neoplasm (1 source)Nevus of choroid of left eye; Translations: [Benign neoplasm of left choroid]EpisodicOther circulatory disease (12 sources)H/O: hypertension; Translations: [Personal history of other diseases of circulatory system]Onset: 637674-14-7533IdsasjsiZrufm diseases of kidney and ureters (3 sources)Urinary tract obstruction; Translations: [Hydronephrosis with renal and ureteral calculous obstruction]Onset: 07-68-1317FbykllqcBbjkm diseases of kidney and ureters (3 sources)Disorder of kidney and/or ureter; Translations: [Disorder of kidney and ureter, unspecified]Onset: 33-21-2607CrmaruylCyvoq diseases of kidney and ureters (6 sources)Kidney fdehsn57-04-6365HumvivuvNzwjt gastrointestinal disorders (2 sources)History of gastrointestinal bleed; Translations: [Personal history of other diseases of the digestive system]30-24-7006WpvhldwpRrqlg lower respiratory disease (4 sources)Other forms of dyspnea; Translations: [OTHER FORMS OF DYSPNEA]Onset: 73-95-5097IqlaqegdPbzzi lower respiratory disease (5 sources)Dyspnea; Translations: [Other respiratory abnormalities]Onset: 319224-06-0927TkutmpkyAruig lower respiratory disease (2 sources)Shortness of breath; Translations: [Shortness of breath]Onset: 38-05-6784AjmndbpbSopap nervous system disorders (5 sources)Carpal tunnel syndrome; Translations: [Carpal tunnel syndrome] 75-83-0296SpeangiIzusf nervous system disorders (4 sources)Lesion of ulnar nerve, left upper limb; Translations: [Cubital tunnel syndrome on left]Onset: 378735-04-0650NagllexIyhgq nervous system disorders (4 sources)Lesion of ulnar nerve, right upper limb; Translations: [Cubital tunnel syndrome on right]Onset: 562874-70-9725JerbkucAecyl nervous system disorders (12 sources)Bilateral carpal tunnel syndrome; Translations: [Carpal tunnel syndrome, bilateral upper limbs]Onset: 376387-06-6808VjnqsyaWyxyi non- traumatic joint disorders (1 source)Other specified joint disorders, right shoulder; Translations: [OTH SPECIFIED JOINT D/O RT SHOULDER]Onset: 31-45-2752LfkllzgyPdwdg nutritional; endocrine; and metabolic disorders (3 sources)Overweight in adulthood with body mass index of 25 or more but less than 30; Translations: [Overweight]EpisodicPeri-; endo-; and myocarditis; cardiomyopathy (except that caused by tuberculosis or sexually transmitted disease) (4 sources)Cardiomyopathy; Translations: [Other cardiomyopathies]02-04-2024 ChronicPeripheral and visceral atherosclerosis (9 sources)Ischemic colitis; Translations: [Vascular disorder of intestine, unspecified]Onset: 624122-19-5256TnzitauLqjnzdwxbx and visceral atherosclerosis (9 sources)Mesenteric infarction; Translations: [Acute infarction of intestine, part and extent unspecified]Onset: 075363-94-4588IxjeuzkeNkdzwlal codes; unclassified (3 sources)History of partial resection of colon; Translations: [Acquired absence of other specified parts of digestive tract]19-67-4698WfwgyjkiDgqnyaap codes; unclassified (2 sources)Other specified health status; Translations: [Other specified conditions influencing health status]21-23-1446KgupsemoPzzozfyn codes; unclassified (9 sources)History of cardiac catheterization; Translations: [Other specified postprocedural states]Onset: 471844-23-2302YidhgqmtQlyuloe detachments; defects; vascular occlusion; and retinopathy (1 source)Bilateral epiretinal membrane of eyes; 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, bilateral]ChronicScreening and history of mental health and substance abuse codes (10 sources)Personal history of nicotine dependence; Translations: [Ex-smoker] Onset: 76-68-9002AnijcqijQldypig disorders (1 source)Hypothyroidism; Translations: [Other specified hypothyroidism] 82-23-1628LnfiwiwLfzdisrirhxw (1 source)Encounter for preprocedural laboratory examination; Translations: [Encounter for preprocedural laboratory examination]Onset: 10-27-2022 Unclassified (6 sources)Other persistent atrial fibrillation; Translations: [Other persistent atrial fibrillation (Multi)]Onset: 40-12-2679Vxiputerfzfc (6 sources)Drug therapy iflygdb42-78-3902Abbuxfkugldi (6 sources)Obstructive kfqtdbsnireqhd51-06-7150Clkbxbhvzdyr (1 source)Radiology NMOnset: 10-03-2024 Past or Other Problems Problem ClassificationProblemDateDocumented DateEpisodic/ChronicDeficiency and other anemia (9 sources)Iron deficiency anemia; Translations: [Iron deficiency anemia, unspecified]Onset: 295477-31-7175DtbwzckuXmfexzfn mellitus without complication (1 source)Other abnormal glucose; Translations: [OTHER ABNORMAL GLUCOSE]Onset: 73-04-4883YdtzcuvgUrhyu aftercare (4 sources)Other jail (current) drug therapy; Translations: [Other salvage determiner (current) drug therapy]Onset: 85-37-5235PyqtjhloFdbds aftercare (2 sources)Taking high risk medication; Translations: [Other salvage determiner (current) drug therapy]Onset: 540249-97-5563XybrxcyrKicsq circulatory disease (11 sources)Low blood pressure; Translations: [Hypotension, unspecified]Onset: 266058-41-8052JzgrwysaIeboc lower respiratory disease (4 sources)Dyspnea, unspecified; Translations: [DYSPNEA UNSPECIFIED]Onset: 87-23-0103WrnssieeUbjrs screening for suspected conditions (not mental disorders or infectious disease) (1 source)Encounter for screening for malignant neoplasm of prostate; Translations: [ENC SCREEN MALIG NEOPLASM PROSTATE]Onset: 88-43-6892Lqxjwkah Residual codes; unclassified (2 sources)H/O: respiratory disease; Translations: [Personal history of other diseases of respiratory system] Resolved: 45-23-7508QumefehyPcaklkovuqbq (3 sources)Never smoked tobacco; Translations: [Never a smoker]Unclassified (1 source)Onset: Results Test NameValueInterpretationReference RangeFacilPhoenix Children's HospitalCOon 22-84-1645IBSBZrmlys TextNormalCCleveland Clinic Hillcrest HospitalCNPNon 32-98-3974YWISLsvwklyvc (PLASCA) BRANDI DALTON ([id number]) 1940 M Date Time Provider Department 03/08/25 OJSE MARIA PORTRE During your visit today, we recorded the following information about you: Camilla Carlisle 03/08/2025 5:26 PM Signed 03/08/25 Scheduled from September for Virtual apt with Dr German Hung MD on 05/19/25 at 11:30 AM . Sent letter and message with [employer]. Mailed out apt reminder with contact information. [...] by mouth two times a day. - Epfvxsyqoukcl-Sbqqwqta-Quwwce (CENTRUM SILVER) tab Take 1 tablet by [...] atrial fibrillation) (HCC) [I48*10/03/2024 Encounter Status:Closed by CMAILLA CARLISLE on 03/08/25Fire[facility] CenterAmbulatory Visit Summaryon [id number] Visit SummaryAmbulatory Visit Summary BRANDI DALTON JR [...] ? 8 oz (237 mL) of milk, uxqiqjz-jxxermvwyqoz-iccyl milk, and calcium- fortifiedfruit juice. Calcium-fortified means [...] yogurt and kefir. ?? (more content not included)...[facility] HospitalU[facility] Office/Clinic Noteon [id number] Office/Clinic NoteUrology Office/Clinic Note Chief Complaint 6 [...] with voice recognition artificial intelligence software, specifically [employer], citibuddies and or [employer]. Substitutions may have occurred due to the inherent limitations of voice recognition and artificial intelligence software. 1. Ureteral stone with hydronephrosis (N13.2: Hydronephrosis with renal and ureteral calculous obstruction) Hx of lithotripsy years ago. Pt presented to [facility] ER 06/01/24 due to left lower [...] ROMAIN in 1 year 4. 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. S/p successful cardioversion 02/2024. On Eliquis [...] 1 tab(s), Oral, (more content not included)...[facility] Veterans Health AdministrationComment on above:Result Comment: Electronically Signed By: GEORGI TRUJILLO, MIKE\.br\Date and Time Signed: 01/02/25 11:11 EDT\.br\Electronically Co-Signed By: Felicita Miranda\.br\Date and Time Co- Signed: 01/02/25 10:52 EDTCNCOon 35-76-1784LJKNJfescs TextNormalCMain Campus Medical CenterPNon 99-33-2485LIIRRuvxiuhwj (EPSMN) BRANDI DALTON ([id number]) 1940 M Date Time Provider Department 12/14/24 ARIANA VALLES EPSMN During your visit today, we recorded the following information about you: Lolita Banegas RN 12/14/2024 6:17 PM Signed ----- Message from Ariana Valles MD sent at 09/26/2024 4:45 PM EDT ----- Regarding: PVI + Watchman Patient: Brandi Dalton JR EP Lab Procedure requested: Left Appendage Closure Device Watchman CPT 23208 + PVI Anticoagulation Status: Eliquis (apixaban) Requesting Physician: Ariana Valles MD Procedural Physician: Ariana Valles MD or rd qureshi (ablation and Reena for watchman) Date of last HANDP or Date of upcoming HANDP: 09/20/24 Indications for procedure: Atrial Fibrillation and Previous bleed Procedure time frame: Patient convenience Current Meds: Current Outpatient Medications: ? apixaban (ELIQUIS) 2.5 mg tab(s)? Ksdyxuzhtauol-Shlmouoo-Vzpzvz (CENTRUM SILVER) tab? magnesium oxide 400 mg [...] no appointment needed. 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 For Echo procedureDisp: 10 mLRfl: 0 TYPE AND SCREEN,30 DAY [[id number]] Order #: [id number] FUTURE Prescriptions as of 12/19/2024 - sodium chloride 0.9 %, flush, (BD POSIFLUSH) syringe Inject 2-10 mL intravenously as directed. For Echo procedure - apixaban (ELIQUIS) 2.5 mg tab(s) Take 1 tablet by mouth two times a day. - Gfriszqjdubsj-Hqfrzpoa-Wasenj (CENTRUM SILVER) tab Take 1 tablet by [...] [I51.7] 03/18/2023 Mesenteric infa (more content not included)...NormalUc Medical Center CNOVon [id number] Visit (MEGAN CHF RHONA) BRANDI DALTON ([id number]) 1940 M Date Time Provider Department 12/05/24 12:00 PM KENDRA MENDOZA CHF RHONA During your visit today, we recorded the following information about you: Pulse Blood pressure Weight Height 57/minute 139/78 72.8 kg 1.676 m Kendra Mendoza MD 12/05/2024 5:55 PM Signed Heart and Vascular [facility] SECTION OF HEART FAILURE and CARDIAC TRANSPLANT MEDICINE OUTPATIENT VISIT DATE December 05, 2024 OUTPATIENT VISIT TYPE Established Patient PRIMARY CARE PHYSICIAN: Samantha Maya [address] [place] [address] CHIEF COMPLAINT: HF F/u NURSING INTAKE (Patient?s [...] 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 Wmfpzuobgqqhm-Wukefxiv-Oozfnx (CENTRUM SILVER) tab Take 1 tablet by [...] to Good Quality (more content not included)... 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 Vincent HospitalBasophils/100 WBC (Bld) 0.5 %St. Vincent HospitalDifferential cell count method Nom (Bld)AutoCleveland ClinicEosinophils (Bld) [#/Vol]0.22 10*3/uLNINFCleUniversity Hospitals Ahuja Medical CenterEosinophils/100 WBC (Bld)3.5 %St. Vincent HospitalErythrocyte distribution width (RBC) [Ratio]13.5 % 11.5 - 15.0 %St. Vincent HospitalHematocrit (Bld) [Volume fraction]42.2 %39.0 - 51.0 %[facility]. Vincent HospitalHemoglobin (Bld) [Mass/Vol]14 g/dL13.0 - 17.0 g/dLSt. Vincent HospitalImmature granulocytes (Bld) [#/Vol]NINFCleveland ClinicImmature granulocytes/100 WBC (Bld)0.2 %[facility]. Vincent HospitalInterpretation and review of laboratory resultsAbnormalCOhioHealth Marion General HospitalLymphocytes (Bld) [#/Vol]1.74 10*3/uL St. Vincent HospitalLymphocytes/100 WBC (Bld)27.8 %[facility] Anderson HospitalH (RBC) [Entitic mass]34.1 voGxit71.0 - 34.0 pgCThe University of Toledo Medical CenterHC (RBC) [Mass/Vol]33.2 g/dL30.5 - 36.0 g/dLMercy Health Anderson HospitalV (RBC) [Entitic vol]102.9 fWOnra93.0 - 100.0 fLCOhioHealth Marion General HospitalMonocytes (Bld) [#/Vol]0.85 10*3/uLNINFSt. Vincent Hospital Monocytes/100 WBC (Bld)13.6 %[facility]. Vincent HospitalNeutrophils (Bld) [#/Vol]3.4 10*3/uLSt. Vincent HospitalNeutrophils/100 WBC (Bld)54.4 %[facility] Vincent HospitalNucleated RBC (Bld) [#/Vol]NINFCOhioHealth Marion General HospitalNucleated RBC/100 WBC (Bld) [Ratio]0 %/100 WBCSt. Vincent HospitalPlatelet mean volume (Bld) [Entitic vol]9.6 fL9.0 - 12.[address] Vincent HospitalPlatelets (Bld) [#/Vol]249 10*3/uLSt. Vincent HospitalRBC (Bld) [#/Vol]4.1 10*6/uLLow4.20 - 6.00 m/German HospitalWBC (Bld) [#/Vol]6.25 10*3/uLGreene Memorial Hospital ClinicBasophils (Bld) [#/Vol]0.03 10*3/uLNormal <0.11CCleveland Clinic Hillcrest HospitalComment on above:Order Comment: Specimen Type: BLOOD SPECIMENOrdering Facility: [facility] Address:[address] [place], [place] [address]Performed By: #### 69185-1 ####[facility] LABCLIA [id number] [address] AVENUED[address] [place], [place] [address] [place] AMERICABasophils/100 WBC (Bld)0.5 %NormalUc Medical Center Comment on above:Order Comment: Specimen Type: BLOOD SPECIMENOrdering Facility: [facility] Address:[address] [place] [address] Performed By: #### 88738-7 ####[facility] LABCLIA [id number] [place] [address] [place] Differential cell count method Nom (Bld)AutoNormalClevelUNC Health Comment on above:Order Comment: Specimen Type: BLOOD SPECIMENOrdering Facility: [facility] Address:[address] [place] [address] Performed By: #### 17582-6 ####[facility] LABCLIA [id number] [place] [address] [place] Eosinophils (Bld) [#/Vol]0.22 10*3/uLNormal<0.46[facility] Comment on above:Order Comment: Specimen Type: BLOOD SPECIMENOrdering Facility: [facility] Address:[address] [place] [address] Performed By: #### 87183-0 ####[facility] LABCLIA [id number] [place] [address] [place] Eosinophils/100 WBC (Bld)3.5 %NormalUc Medical CenterComment on above: Order Comment: Specimen Type: BLOOD SPECIMENOrdering Facility: [facility] Address:[address] [place], [place] [address]Performed By: #### 30121- 8 ####[facility] LABCLIA [id number] [place] [address] [place] AMERICAErythrocyte distribution width (RBC) [Ratio]13.5 %Naglun53.5-15.0Uc Medical CenterComment on above: Order Comment: Specimen Type: BLOOD SPECIMENOrdering Facility: [facility] Address:[address] [place], [place] [address]Performed By: #### 21669- 8 ####[facility] LABIA [id number] [place] [address] [place] AMERICAHematocrit (Bld) [Volume fraction]42.2 %Xmolyt09.0-51.0[facility] on above:Order Comment: Specimen Type: BLOOD SPECIMENOrdering Facility: [facility] Address:[address] [place], [place] [address]Performed By: #### 29547- 8 ####[facility] LABIA [id number] [place] [address] [place] AMERICAHemoglobin (Bld) [Mass/Vol]14.0 g/iVIqoctr16.0-17.0[facility] on above:Order Comment: Specimen Type: BLOOD SPECIMENOrdering Facility: [facility] Address:[address] [place], [place] [address]Performed By: #### 30377-3 ####[facility] LABIA [id number] [place] [address] [place] AMERICAImmature granulocytes (Bld) [#/Vol]10*3/uLNormal<0.10[facility] on above:Order Comment: Specimen Type: BLOOD SPECIMENOrdering Facility: [facility] Address:[address] [place], [place] [address]Performed By: #### 84874- 8 ####[facility] LABIA [id number] [place] [address] [place] AMERICAImmature granulocytes/100 WBC (Bld)0.2 %NormalPremier Health Miami [facility] on above:Order Comment: Specimen Type: BLOOD SPECIMENOrdering Facility: [facility] Address:[address] [place], [place] [address]Performed By: #### 70701-0 ####[facility] LABIA [id number] [place] [address] [place] AMERICALymphocytes (Bld) [#/Vol]1.74 10*3/uLNormal1.00-4.00[facility] on above:Order Comment: Specimen Type: BLOOD SPECIMENOrdering Facility: [facility] Address:[address] [place], [place] [address]Performed By: #### 26365-1 ####[facility] LABIA [id number] [place] [address] [place] AMERICALymphocytes/100 WBC (Bld)27.8 % NormalPremier Health Miami [facility] on above:Order Comment: Specimen Type: BLOOD SPECIMENOrdering Facility: [facility] Address:[address] [place], [place] [address]Performed By: #### 21794-3 ####[facility] LABIA [id number] [place] [address] [place] AMERICAMCH (RBC) [Entitic mass]34.1 uiHgbx31.0-34.0[facility] on above:Order Comment: Specimen Type: BLOOD SPECIMENOrdering Facility: [facility] Address:[address] [place], [place] [address]Performed By: #### 75637-1 ####[facility] LABIA [id number] [place] [address] [place] MCHC (RBC) [Mass/Vol]33.2 g/yXNwawfg04.5-36.0[facility] on above:Order Comment: Specimen Type: BLOOD SPECIMENOrdering Facility: [facility] Address:[address] [place] [address] Performed By: #### 88176-7 ####[facility] LABIA [id number] [place] [address] [place] MCV (RBC) [Entitic vol]102.9 bWMpnb91.0-100.0[facility] on above:Order Comment: Specimen Type: BLOOD SPECIMENOrdering Facility: [facility] Address:[address] [place] [address] Performed By: #### 04860-8 ####[facility] LABCLIA [id number] [place] [address] [place] Monocytes (Bld) [#/Vol]0.85 10*3/uLNormal<0.87[facility] on above:Order Comment: Specimen Type: BLOOD SPECIMENOrdering Facility: [facility] Address:[address] [place] [address] Performed By: #### 95100-4 ####[facility] LABIA [id number] [place] [address] [place] Monocytes/100 WBC (Bld)13.6 %NormalPremier Health Miami [facility] on above: Order Comment: Specimen Type: BLOOD SPECIMENOrdering Facility: [facility] Address:[address] [place], [place] [address]Performed By: #### 54654- 8 ####[facility] LABIA [id number] [place] [address] [place] AMERICANeutrophils (Bld) [#/Vol]3.40 10*3/uLNormal1.45-7.50[facility] on above:Order Comment: Specimen Type: BLOOD SPECIMENOrdering Facility: [facility] Address:[address] [place], [place] [address]Performed By: #### 96223-1 ####[facility] LABCLIA [id number] [place] [id number] [place] AMERICANeutrophils/100 WBC (Bld)54.4 % NormalPremier Health [facility] on above:Order Comment: Specimen Type: BLOOD SPECIMENOrdering Facility: [facility] Address:[address] [place], [place] [address]Performed By: #### 51064-7 ####[facility] LABCLIA [id number] [place] [address] [place] AMERICANucleated RBC (Bld) [#/Vol]10*3/uLNormal<0.01[facility] on above:Order Comment: Specimen Type: BLOOD SPECIMENOrdering Facility: [facility] Address:[address] [place], [place] [address]Performed By: #### 01660-5 ####[facility] LABIA [id number] [place] [address] [place] Nucleated RBC/100 WBC (Bld) [Ratio]0.0 /100 WBCNormalCCleveland Clinic Hillcrest Hospital Comment on above:Order Comment: Specimen Type: BLOOD SPECIMENOrdering Facility: [facility] Address:[address] [place] [address] Performed By: #### 32913-0 ####[facility] LABIA [id number] [place] [address] [place] Platelet mean volume (Bld) [Entitic vol]9.6 fLNormal9.0-12.7CMercy Health Defiance Hospital on above:Order Comment: Specimen Type: BLOOD SPECIMENOrdering Facility: [facility] Address:[address] [place], [place] [address]Performed By: #### 96417-8 ####[facility]STOWNIA [id number] [place] [address] [place] Platelets (Bld) [#/Vol]249 10*3/jKBukjdp796-802ScrxddijkPremier Health [facility] on above:Order Comment: Specimen Type: BLOOD SPECIMENOrdering Facility: [facility] Address:[address] [place] [address] Performed By: #### 15448-7 ####[facility] LABIA [id number] [place] [address] [place] RBC (Bld) [#/Vol]4.10 10*6/uLLow4.20-6.00[facility] on above:Order Comment: Specimen Type: BLOOD SPECIMENOrdering Facility: [facility] Address:[address] [place], [place] [address]Performed By: #### 98027-1 ####[facility] [id number] [address] WARD STREETWBC (Bld) [#/Vol]6.25 10*3/uLNormal3.70-1100[facility] on above:Order Comment: Specimen Type: BLOOD SPECIMENOrdering Facility: [facility] Address:[address] [place], [place] [address]Performed By: #### 25010-5 ####[facility] [id number] [address] STREETCNOVon 70-54-4661ASYLGfeydv Visit (PARDEEPN) BRANDI DALTON ([id number]) 1940 M Date Time Provider Department 10/03/24 1:00 PM TOMY HUTTON During your visit today, we recorded the following information about you: Pulse Blood pressure Weight Height 59/minute 156/80 73.8 kg 1.651 m Tomy Hutton MD 10/04/2024 12:04 PM Signed Heart and Vascular [facility] SECTION OF HEART FAILURE and CARDIAC TRANSPLANT MEDICINE OUTPATIENT VISIT DATE October 03, 2024 OUTPATIENT VISIT TYPE Consultation PRIMARY CARE PHYSICIAN: Samantha Maya [address] [place] [address] CHIEF COMPLAINT: HFpEF, AF NURSING INTAKE (Patient?s concerns and/or recent hospitalizations/ER visits): Brandi Dalton JR is a 84 year old male from [place], [place] here today for 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 Referred by Dr. Ariana Valles He has a significant medical history of CHF, HTN, Afib s/p DCCV 02/09/24, bilateral carpal tunnel, iron deficiency anemia, hypothyroid, presence of M protein He follows a regular diet and does not participates in regular exercise/activity. 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 Agyitztopmrua-Dmxdneon-Xllhcy (CENTRUM SILVER) tab Take 1 tablet by [...] no vitals taken f (more content not included)...NormalUc Medical CenterComprehensive metabolic 2000 panelon 46-06-2938Zchbynv [Mass/Vol]4.3 g/dL3.9 - 4.9 g/dLNoble ClinicALP [Catalytic activity/Vol]85 U/L38 - 113 U/LCleveland ClinicALT [Catalytic activity/Vol]19 U/L10 - 54 U/L Noble ClinicAnion gap [Moles/Vol]11 mmol/L8 - 15 mmol/LCleveland ClinicAST [Catalytic activity/Vol]38 U/L14 - 40 U/LCleveland ClinicBilirubin [Mass/Vol]0.4 mg/dL0.2 - 1.3 mg/dLNoble ClinicCalcium [Mass/Vol]10 mg/dL8.5 - 10.2 mg/dL Noble ClinicChloride [Moles/Vol]101 mmol/L98 - 107 mmol/LCleveland ClinicCO2 [Moles/Vol]28 mmol/L22 - 30 mmol/LCleveland ClinicCreatinine [Mass/Vol]1.26 mg/dLHigh0.73 - 1.22 mg/dLNoble ClinicGFR/1.73 sq M.predicted among non- blacks MDRD [...] reflect actual GFR.Glucose [Mass/Vol]94 mg/dL74 - 99 mg/dLSt. Vincent HospitalComment on above:The [place] Diabetes Association (ADA) provides guidance for cutoff [...] Standards of Medical Care in Diabetes 2016, [place] Diabetes Association. Diabetes Care. 2016.39(Suppl 1). Interpretation and review of laboratory resultsAbnormalCleveland ClinicPotassium [Moles/Vol]5.2 mmol/LHigh3.7 - 5.1 mmol/LClevelatrium health mountain island ClinicProtein [Mass/Vol]8 g/dL6.3 - 8.0 g/dLSelect Medical Cleveland Clinic Rehabilitation Hospital, Edwin Shawodium [Moles/Vol]140 mmol/L136 - 144 mmol/L St. Vincent HospitalUrea nitrogen [Mass/Vol]28 mg/dLHigh9 - 24 mg/dLSt. Vincent Hospital Albumin [Mass/Vol]4.3 g/dLNormal3.9-4.9CCleveland Clinic Hillcrest HospitalComment on above:Order Comment: Specimen Type: BLOOD SPECIMENOrdering Facility: [facility] Address:[address] [place], [place] [address]Performed By: #### 2885-2, 26221-3, 49375-7 ####[facility] LABIA [id number][place] [address] [place] ALP [Catalytic activity/Vol]85 U/WZvjxhz95-120WzkaucuqtUc Medical CenterComment on above:Order Comment: Specimen Type: BLOOD SPECIMENOrdering Facility: [facility] Address:[address] [place] [id number] Performed By: #### 2885-2, 04988-4, 95934-3 ####[facility] LABIA [id number] VILLE [id number] [place] OF AMERICAALT [Catalytic activity/Vol]19 U/MWpvvoo09-77EhblwgbqvUc Medical Center Comment on above:Order Comment: Specimen Type: BLOOD SPECIMENOrdering Facility: [facility] Address:[address] [place] [address] Performed By: #### 2885-2, 30551-3, 02599-9 ####[facility] LABCLIA [id number] VILLE [id number] [place] AMERICAAnion gap [Moles/Vol]11 mmol/LNormal8-15Uc Medical CenterComment on above:Order Comment: Specimen Type: BLOOD SPECIMENOrdering Facility: [facility] Address:[address] [place] [address] Performed By: #### 2885-2, 27775-2, 76756-3 ####[facility] LABCLIA [id number] VILLE [id number] [place] AMERICAAST [Catalytic activity/Vol]38 U/GHnejki53-68PnkjnpfrnUc Medical Center Comment on above:Order Comment: Specimen Type: BLOOD SPECIMENOrdering Facility: [facility] Address:[address] [place] [address] Performed By: #### 2885-2, 44058-7, 23326-5 ####[facility] LABIA [id number] VILLE [id number] [place] AMERICABilirubin [Mass/Vol]0.4 mg/dLNormal0.2-1.3CCleveland Clinic [facility] Hospital Comment on above:Order Comment: Specimen Type: BLOOD SPECIMENOrdering Facility: [facility] Address:[address] [place] [address] Performed By: #### 2885-2, 66833-1, 23824-9 ####[facility] LABIA [id number] VILLE [id number] [place] AMERICACalcium [Mass/Vol]10.0 mg/dLNormal8.5-10.2CCleveland Clinic [facility] Hospital Comment on above:Order Comment: Specimen Type: BLOOD SPECIMENOrdering Facility: [facility] Address:[address] [place] [address] Performed By: #### 2885-2, 74801-1, 32565-7 ####[facility] LABCLIA [id number] [address] [place] AMERICAChloride [Moles/Vol]101 mmol/SPngnwr60-583EfclfkwpwUc Medical Center Comment on above:Order Comment: Specimen Type: BLOOD SPECIMENOrdering Facility: [facility] Address:[address] [place] [address] Performed By: #### 2885-2, 58366-4, 62667-4 ####[facility] LABIA [id number] VILLE [id number] [place] AMERICACO2 [Moles/Vol]28 mmol/RKxdjva11-55PeigfqupeUc Medical CenterComment on above:Order Comment: Specimen Type: BLOOD SPECIMENOrdering Facility: [facility] Address:[address] [place], [place] [address]Performed By: #### 2885-2, 96882-5, 41279-6 ####[facility] YOUNGSTOWNIA [id number] [address] [place] Creatinine [Mass/Vol]1.26 mg/dLHigh0.73-1.22Uc Medical CenterComment on above:Order Comment: Specimen Type: BLOOD SPECIMENOrdering Facility: [facility] Address:[address] [place], [place] [address]Performed By: #### 2885-2, 37575-3, 90182-4 ####[facility] LABIA [id number] [address] [place] Creatinine and Glomerular filtration rate.predicted panel (S/P/Bld)56 mL/min/1.73m???Low>=60Uc Medical CenterComhenry ford kings[facility] on above:Order Comment: Specimen Type: BLOOD SPECIMENOrdering Facility: [facility] Address:[address] [place], [place] [address]Result Comment: Estimated Glomerular Filtration Rate (eGFR) is [...] accurately reflect actual GFR.Performed By: #### 2885-2, 07465-4, 39205-7 ####[facility] LABIA [id number] AVENUEDESK [address] [address] [place] AMERICAGlucose [Mass/Vol]94 mg/dLNormal 74-99[facility] on above:Order Comment: Specimen Type: BLOOD SPECIMENOrdering Facility: [facility] Address:[address] [place], [place] [address]Result Comment: The [place] Diabetes Association (ADA) provides guidance for cutoff [...] Standards of Medical Care in Diabetes 2016, [place] Diabetes Association. Diabetes Care. 2016.39(Suppl 1).Performed By: #### 2885-2, 92191-4, 91453-8 ####[facility] LABIA [id number] [address] [place] AMERICAPotassium [Moles/Vol] 5.2 mmol/LHigh3.7-5.1CMercy Health [facility]iance Hospital on above:Order Comment: Specimen Type: BLOOD SPECIMENOrdering Facility: [facility] Address:[address] [place], [place] [address]Performed By: #### 2885-2, 86641-5, 08575-9 ####[facility] LABIA [id number] [address] [place] MIDDLETOWN HOSPITALSodium [Moles/Vol]140 mmol/L Nbomfb583-406LgggwpnkgPremier Health [facility] on above:Order Comment: Specimen Type: BLOOD SPECIMENOrdering Facility: [facility] Address:[address] [place], [place] [address]Performed By: #### 2885-2, 08555-6, 51880-2 ####[facility] LABCLIA [id number][place] [address] [place] AMERICAUrea nitrogen [Mass/Vol]28 mg/dL High9-24[facility] on above:Order Comment: Specimen Type: BLOOD SPECIMENOrdering Facility: [facility] Address:[address] [place], [place] [address]Performed By: #### 2885-2, 07852-1, 24986-8 ####[facility] LABCLIA [id number] [address] [place] OF AMERICAIMMUNOGLOBULINS,IGG,IGA,IGMon 02-39-6974UrA [Mass/Vol]51 mg/dLLow70 - 400 mg/dLSt. Vincent HospitalIgG [Mass/Vol] 2086 mg/pWUeab411 - 1600 mg/dLSt. Vincent HospitalIgM [Mass/Vol]27 mg/dLLow40 - 230 mg/dLSt. Vincent HospitalInterpretation and review of laboratory resultsAbnormal [facility] HospitalIgA [Mass/Vol]51 mg/tHMqy82-392RydyhzpppPremier Health [facility] on above:Order Comment: Specimen Type: BLOOD SPECIMENOrdering Facility: [facility] Address:[address] [place], [place] [address]Performed By: #### SERIMM ####[facility] LABCLIA [id number] [place] [address] [place] IgG [Mass/Vol]2086 mg/lZQvns697-5642BdpyyqywgPremier Health Miami [facility] Hospital South on above: Order Comment: Specimen Type: BLOOD SPECIMENOrdering Facility: [facility] Address:[address] [id number] By: #### SERIMM ####[facility] LABCLIA [id number] [facility] [id number] [address] [id number] [place] OF AMERICAIgM [Mass/Vol]27 mg/tPPqq67-733 [facility]c Medical CenterComment on above:Order Comment: Specimen Type: BLOOD SPECIMENOrdering Facility: [facility] Address:[address] [place], [place] [address]Performed By: #### SERIMM ####[facility] LABCLIA [id number] [facility] EREANWUTUKMGH86F[place], [place] [address] [place] AMERICANM CARDIAC AMYLOID SPECT/CTon 87-68-8913QK CARDIAC AMYLOID SPECT/CT* * *Final Report* * * DATE OF EXAM: Oct 03 2024 10:21AM [facility] 0847 - [place] CARDIAC AMYLOID SPECT/CT / PROCEDURE REASON: Chronic diastolic heart failure (HCC) * * * * Physician Interpretation * * * * NM CTAC Report: [facility] Date of service: 10/03/2024 9:54:29 AM [...] pathologic assessment as appropriate. Nuclear Med Report: Hm-78y-Euvsydwcqszdu PLANAR and SPECT: Myocardial imaging of the chest with CT attenuation correction was performed at 3 hours post IV injection of Tc-99m Pyrophosphate. See administered doses below. [facility] [place] Date of service: 10/03/2024 9:54:29 AM Ordering [...] * * Final * * * RP Phytopathologist: SADIE Transcribe Date/Time: Oct 03 2024 9:54A Dictated by : NICOLE AREVALO MD This examination was interpreted and the report reviewed and electronically signed by: NICOLE AREVALO MD on Oct 03 2024 10:48AM EST [id number] Medical CenterNT PRO BNPon 10-03-2024 Natriuretic peptide.B prohormone N-Terminal [Mass/Vol]325 pg/mLNINF - 450 pg/mL St. Vincent HospitalNT-proBNP SerPl-mCncon 30-45-3324Esflsclzenx peptide.B prohormone N-Terminal [Mass/Vol]325 pg/mLNormal<450[facility] Comment on above:Order Comment: Specimen Type: BLOOD SPECIMENOrdering Facility: [facility] Address:[address] [place] [address] Performed By: #### 2885-2, 76669-0, 81279-7 ####[facility] LABCLIA [id number] [address] [place] AMERICANatriuretic peptide.B prohormone N-Terminal [Mass/Vol]on 10-03-2024 Interpretation and review of laboratory resultsNormalCleveland ClinicNo Panel Informationon 32-01-1810Xgeogswas ClinicPROTEIN ELECTROPHORESIS SERUM (P)on 96-31-4746Pgwshul [Mass/Vol]4.52 g/dLNormal3.43-5.41[facility] Comment on above:Order Comment: Specimen Type: BLOOD SPECIMENOrdering Facility: [facility] Address:[address] [place] [address] Performed By: #### [id number] ####[facility] LABCLIA [id number] [place] [address] [place] Alpha 1 globulin Elph [Mass/Vol]0.26 g/dLNormal0.18-0.43Uc Medical CenterComhenry ford [facility] on above:Order Comment: Specimen Type: BLOOD SPECIMENOrdering Facility: [facility] Address:[address] [place], [place] [address]Performed By: #### [id number] ####[facility] LABCLIA [id number] [place] [address] [place] Alpha 2 globulin Elph [Mass/Vol]0.74 g/dLNormal0.42-0.98[facility] on above:Order Comment: Specimen Type: BLOOD SPECIMENOrdering Facility: [facility] Address:[address] [place], [place] [address]Performed By: #### [id number] ####[facility] LABCLIA [id number] [place] [address] [place] Beta globulin Elph [Mass/Vol]0.71 g/dLNormal0.61-1.17[facility] Comment on above:Order Comment: Specimen Type: BLOOD SPECIMENOrdering Facility: [facility] Address:[address] [place] [address] Performed By: #### [id number] ####[facility] LABCLIA [id number] [place] [address] [place] Gamma globulin Elph [Mass/Vol]1.77 g/dLHigh0.53-1.51[facility] Comment on above:Order Comment: Specimen Type: BLOOD SPECIMENOrdering Facility: [facility] Address:[address] [place] [address] Performed By: #### [id number] ####[facility] LABCLIA [id number] [place] [address] [place] INTERPRETATION COMMENT FOR PROTEIN ELECTROPHORESISRecommend monoclonal protein analysis to further characterize the M protein.NormalUc Medical Center Comment on above:Order Comment: Specimen Type: BLOOD SPECIMENOrdering Facility: [facility] Address:[address] [place] [address] Performed By: #### [id number] ####[facility] LABIA [id number] [place] [address] [place] M-PROTEIN LOCATIONGamma Fraction 1NormalUc Medical CenterComment on above:Order Comment: Specimen Type: BLOOD SPECIMENOrdering Facility: [facility] Address:[address] [place], [place] [address]Performed By: #### [id number] ####[facility] LABIA [id number] [place] [address] [place] OF AMERICAProtein Fractions [Interp]An M protein is identified on protein electrophoresis.AbnormalNo definitive M protein is identified on protein electrophoresis.Uc Medical CenterComment on above:Order Comment: Specimen Type: BLOOD SPECIMENOrdering Facility: [facility] Address:[address] [place], [place] [address]Performed By: #### [id number] ####[facility] LABCLIA [id number] [place] [address] [place] Protein.monoclonal Elph [Mass/Vol]0.86 g/dLHigh<=0.00[facility] Comment on above:Order Comment: Specimen Type: BLOOD SPECIMENOrdering Facility: [facility] Address:[address] [place] [address] Performed By: #### [id number] ####[facility] LABCLIA [id number] [place] [id number] [place] SPE STAFF REVIEWReviewed by Manis Kuo MDNormalCCleveland Clinic [facility] Comment on above:Order Comment: Specimen Type: BLOOD SPECIMENOrdering Facility: [facility] Address:[address] [place] [address] Performed By: #### [id number] ####[facility] LABCLIA [id number] [place] [id number] [place] Prot SerPl-mCncon 89-05-2882Rkdkfmd [Mass/Vol]8.0 g/dLNormal6.3-8.0Uc Medical CenterComment on above:Order Comment: Specimen Type: BLOOD SPECIMENOrdering Facility: [facility] Address:[address] [place], [place] [address]Performed By: #### 2885-2, 09817-3, 72368-4 ####[facility] LABIA [id number] VILLE [id number] [place] OF AMERICASPECT Heart for infarct W Tc-99m PYP Anika 10-03-2024* * *Final Report* * * DATE OF EXAM: Oct 03 2024 10:21AM [facility] 0847 - ZACK CARDIAC AMYLOID SPECT/CT / PROCEDURE REASON: Chronic diastolic heart failure (HCC) * * * * Physician Interpretation * * * * NM CTA Report: [facility] Date of service: 10/03/2024 9:54:29 AM [...] pathologic assessment as appropriate. Nuclear Med Report: [id number]-Tzlhtljmujieu PLANAR and SPECT: Myocardial imaging of the chest with CT attenuation correction was performed at 3 hours post IV injection of Tc-99m Pyrophosphate. See administered doses below. [facility] [place] Date of service: 10/03/2024 9:54:29 AM Ordering [...] * * Final * * * RP Phytopathologist: SADIE Transcribe Date/Time: Oct 03 2024 9:54A Dictated by : NICOLE AREVALO MD This examination was interpreted and the report reviewed and electronically signed by: NICOLE AREVALO MD on Oct 03 2024 10:48AM [facility] DIVISION OF RADIOLOGYProvider, [facility] - 10/03/2024 * * *Final Report* * * DATE OF EXAM: Oct 03 2024 10:21AM [facility] 0847 - [place] CARDIAC AMYLOID SPECT/CT / PROCEDURE REASON: Chronic diastolic heart failure (HCC) * * * * Physician Interpretation * * * * [place] CTAC Report: [facility] Date of service: 10/03/2024 9:54:29 AM [...] pathologic assessment as appropriate. Nuclear Med Report: [id number]-Nczcmmlmfnapi PLANAR and SPECT: Myocardial imaging of the chest with CT attenuation correction was performed at 3 hours post IV injection of Tc-99m Pyrophosphate. See administered doses below. [facility] [place] Date of service: 10/03/2024 9:54:29 AM Ordering [...] * * Final * * * RP Phytopathologist: SADIE Transcribe Date/Time: Oct 03 2024 9:54A Dictated by : NICOLE AREVALO MD This examination was interpreted and the report reviewed and electronically signed by: NICOLE AREVALO MD on Oct 03 2024 10:48AM EST [facility] HospitalRadiology Study observation (narrative)[facility] Heart for infarct W Tc-99m PYP IVOrdered By: Ccf Provider on 77-51-6042Rxtlqwzga ClinicIMMUNOFIXATION SCREEN, SERUMOrdered By: Mansi Hammonds on 09-22-2024 Interpretation (MPA)Atypical restricted bands are present in the IgG and kappa regions. Consistent with IgG kappa monoclonal gammopathy.[facility] Interpretation and review of laboratory resultsAbnormalCleveland ClinicMPA ResultM protein is present.AbnormalNo M protein is identified.[facility] Staff Review (MPA)Reviewed by Dr. Sheree Lewis [facility] CenterMONOCLONAL PROT UR W/INTERPOrdered By: Guzman Renteria on 09-22-2024 Interpretation ([facility])Poorly defined region of restricted mobility in IgG [...] further for monoclonal gammopathy. Clinical correlation is necessary.[facility] Interpretation and review of laboratory resultsAbnoUniversity Hospitals Portage Medical CenterResult ([facility])A poorly defined region of restricted mobility is present that may represent an M protein.AbnormalNo M protein is identified.[facility], Edwin Shawtaff Review ([facility])Reviewed by Dr. Sheree Lewis [facility] KAPPA/COSTA,FREE,SEROrdered By: Olga Jean on 55-46-6298Cambldkapufmji light chains.kappa.free (S) [Mass/Vol]83.2 mg/LHigh3.3 - 19.4 mg/LCOhioHealth Marion General Hospital Comment on above:Rarely, increased serum free light chains levels may not be detected or accurately quantified due to prozone phenomenon or in high viscosity samples using this immunoturbidimetric assay. Correlation with other laboratory results and clinical findings is recommended. The [place] Free Light Chain was performed using the Binding Site Optilite immunoturbidimetric method. Result obtained with different assay methods or kits cannot be used interchangeably. Immunoglobulin light chains.kappa/Immunoglobulin light chains.lambda (S) [Mass ratio]9.26Ukva5.26 - 1.65St. Vincent HospitalImmunoglobulin light chains.lambda.free [Mass/Vol]8.9 mg/L5.7 - 26.3 mg/LCOhioHealth Marion General HospitalComment on above:Rarely, increased serum free light chains [...] used interchangeably. Interpretation and review of laboratory resultsAbSamaritan HospitalNT PRO BNPon 97-29-1039Jhjnwrvhcbk peptide.B prohormone N-Terminal [Mass/Vol]306 pg/mLNINF - 450 pg/mLClevelatrium health mountain island ClinicNatriuretic peptide.B prohormone N-Terminal [Mass/Vol]on 70-29-3098Lqfwmdqscjmuci and review of laboratory resultsNormalClevelUniversity Hospitals Geauga Medical CenterCNOVon 86-68-6249GKQY Office Visit (CARDMN) BRANDI DALTON ([id number]) 1940 Date Time Provider Department 09/20/24 2:30 PM ARIANA VALLES CARDMN During your visit today, we recorded the following information about you: Pulse Blood pressure Weight Height 94/minute 135/78 72.1 kg 1.651 m Ariana Valles MD 09/26/2024 4:45 PM Signed [facility] Department of Cardiovascular Medicine SECTION OF CARDIAC PACING and ELECTROPHYSIOLOGY OUTPATIENT VISIT DATE September 20, 2024 OUTPATIENT VISIT TYPE ESTABLISHED PRIMARY CARE PHYSICIAN: Samantha Maya [address] [place] [address] REFERRING PHYSICIAN: No referring provider defined for [...] 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 Hjwwlbmjttybd-Stxktwkx-Eicmwx (CENTRUM SILVER) tab Take 1 tablet by [...] 135/78 Pulse 94 Ht (more content not included)...NormalHolzer Health System COMPLETEon 82-23-0007KKP COMPLETEVentricular Rate : 94 BPM Atrial Rate : 94 BPM P-R Interval : 236 ms QRS Duration : 108 ms Q-T Interval : 368 ms QTC Calculation(Bazett) : 460 ms Calculated P [place] : 72 degrees Calculated R [place] : 31 degrees Calculated T [place] : 0 degrees SINUS RHYTHM WITH SINUS ARRHYTHMIA WITH 1ST DEGREE AV BLOCK NONSPECIFIC ST ABNORMALITY ABNORMAL ECG Confirmed by ASAD PRESSLEY MD ([id number]) on 10/14/2024 3:58:18 PM NAME : BRANDI DALTON PID : [id number] : 1940 Gender : Male Race : ORD : [id number] Procedure Date : Sep 20 2024 13:39:53 [...] : ARIANA VALLES Acquired by : Libra MITCHELLSelect Medical [facility] Clinic Rehabilitation Hospital, BeachwoodIMMUNOFIXATION SCREEN, SERUMon 97-90-2699QKQUJUXDRUXZHS (MPA)Atypical restricted bands are present in the IgG and kappa regions. Consistent with IgG kappa monoclonal gammopathy.NormalPremier Health Miami Valley Hospital South on above:Order Comment: Specimen Type: BLOOD SPECIMENOrdering Facility: [facility] Address:[address] [place], [place] [address]Performed By: #### IFESC ####[facility] LABCLIA [id number] [place] [address] [place] AMERICAMPA RESULTM protein is present. AbnormalNo M protein is identified.[facility] on above: Order Comment: Specimen Type: BLOOD SPECIMENOrdering Facility: [facility] Address:[address] [place], [place] [address]Performed By: #### IFESC ####[facility] LABIA [id number] [place] [address] [place] OF AMERICASTAFF REVIEW (MPA)Reviewed by Dr. Sheree Lewis MDACMC Healthcare System on above:Order Comment: Specimen Type: BLOOD SPECIMENOrdering Facility: [facility] Address:[address] [place], [place] [address]Performed By: #### IFESC ####[facility] LABCLIA [id number] [place] [address] [place] AMERICAKAPPA/COSTA,FREE,SERon 09-20-2024 Immunoglobulin light chains.kappa.free (S) [Mass/Vol]83.2 mg/LHigh3.3-19.4 [facility] on above:Order Comment: Specimen Type: BLOOD SPECIMENOrdering Facility: [facility] Address:[address] [place], [place] [address]Result Comment: Rarely, increased serum free light chains levels may not be detected or accurately quantified due to prozone phenomenon or in high viscosity samples using this immunoturbidimetric assay. Correlation with other laboratory results and clinical findings is recommended. The [place] Free Light Chain was performed using the Binding Site Optilite immunoturbidimetric method. Result obtained with different assay methods or kits cannot be used interchangeably.Performed By: #### KLFRS ####[facility] LABCLIA [id number] [address] STATES OF [place]LETOWN HOSPITALImmunoglobulin light chains.kappa/Immunoglobulin light chains.lambda (S) [Mass ratio]9.46Xpte1.26-1.65[facility] on above:Order Comment: Specimen Type: BLOOD SPECIMENOrdering Facility: [facility] Address:[address] [place] [address] Performed By: #### KLFRS ####[facility]STOWNIA [id number] [address] STATES OF [place]LET[place] HOSPITALImmunoglobulin light chains.lambda.free [Mass/Vol]8.9 mg/LNormal5.7-26.3CMercy Health Defiance Hospital on above:Order Comment: Specimen Type: BLOOD SPECIMENOrdering Facility: [facility] Address:[address] [place], [place] [address]Result Comment: Rarely, increased serum free light chains [...] cannot be used interchangeably.Performed By: #### KLFRS ####[facility] LABIA [id number] [place] [address] [place] AMERICAMONOCLONAL PROT UR W/INTERPon 12-92-7923ABNQIYLPYMKKFX (UMPA)Poorly defined region of restricted mobility in [...] further for monoclonal gammopathy. Clinical correlation is necessary.NormalUc Medical Center Comment on above:Order Comment: Specimen Type: URINE SPECIMENOrdering Facility: [facility] Address:[address] [place] [address] Performed By: #### URMPA ####[facility] LABIA [id number] [address] WARD STREETSTAFF REVIEW ([place])Reviewed by Dr. Sheree Lewis MDNormalCMercy Health Defiance Hospital on above:Order Comment: Specimen Type: URINE SPECIMENOrdering Facility: [facility] Address:[address] [place], [place] [address]Performed By: #### URMPA ####[facility] LABIA [id number] [address] STATES OF AMERICAUMPA RESULTA poorly defined region of restricted mobility is present that may represent an M protein. AbnormalNo M protein is identified.[facility] on above: Order Comment: Specimen Type: URINE SPECIMENOrdering Facility: [facility] Address:[address] [place], [place] [address]Performed By: #### URMPA ####[facility] LABIA [id number] [facility] CENTERK L [address] [place] [address] [place] AMERICANT-proBNP SerPl-mCncon 09-20-2024 Natriuretic peptide.B prohormone N-Terminal [Mass/Vol]306 pg/mLNormal<450 [facility] on above:Order Comment: Specimen Type: BLOOD SPECIMENOrdering Facility: [facility] Address:[address] [place], [place] [address]Performed By: #### [id number] ####[facility] LABIA [id number] [place] [address] [place] AMERICAPROTEIN / CREATININE RATIOon 66-82-7066Pwavski/Creatinine (U) [Mass ratio]0.09 mg/mgNINF - 0.15 mg/mgACMC Healthcare System on above:Adult Proteinuria Categories: <0.15 mg/mg is considered normal to mildly increased 0.15 - 0.50 mg/mg is considered moderately increased >0.50 mg/mg is considered severely increased KDIGO. (2013). KDIGO 2012 Clinical Practice Guideline for the Evaluation and Management of Chronic Kidney Disease. Official Journal of the International Society of Nephrology, 3(1), 1-150. Prot/Creat Uron 94-14-9562Crarxfj/Creatinine (U) [Mass ratio]0.09 mg/mgNormal <0.15[facility] on above:Order Comment: Specimen Type: URINE SPECIMENOrdering Facility: [facility] Address:[address] [place], [place] [address]Result Comment: Adult Proteinuria Categories: <0.15 mg/mg is considered normal to mildly increased 0.15 - 0.50 mg/mg is considered moderately increased >0.50 mg/mg is considered severely increased KDIGO. (2013). KDIGO 2012 Clinical Practice Guideline for the Evaluation and Management of Chronic Kidney Disease. Official Journal of the International Society of Nephrology, 3(1), 1-150.Performed By: #### 2890-2 ####[facility] LABCLIA [id number] [address] STATES OF [place] HOSPITALProtein/Creatinine (U) [Mass ratio]on 09-20-2024 Creatinine (U) [Mass/Vol]77.3 mg/dL20.0 - 300.0 mg/dLSt. Vincent Hospital Interpretation and review of laboratory resultsNormalCleveland ClinicProtein (U) [Mass/Vol]7 mg/dL0 - 20 mg/dLNorwalk Memorial HospitalCreatinine (U) [Mass/Vol]77.3 mg/xSYvtmyy86.0-300.0[facility] on above: Order Comment: Specimen Type: URINE SPECIMENOrdering Facility: [facility] Address:[address] [place], [place] [address]Performed By: #### 2890-2 ####[facility] LABCLIA [id number] [facility] [place], [place] [address] [place] AMERICAProtein (U) [Mass/Vol]7 mg/dL Normal0-20Uc Medical CenterComhenry ford kings[facility] hospital on above:Order Comment: Specimen Type: URINE SPECIMENOrdering Facility: [facility] Address:[address] [place], [place] [address]Performed By: #### 2890-2 ####[facility] LABIA [id number] [facility] [id number] STATES OF AMERICAAmbulatory Visit Summaryon 00-73-9566Qotmcemfpu Visit SummaryAmbulatory Visit Summary BRANDI DALTON JR [...] MIKE SLADE MD Where: [facility] [address], [address] [place] [address]- You Need to Schedule the Following Appointments [...] ? 8 oz (237 mL) of milk, avqdqkn-licvrzfohzhf-rxfki milk, and calcium- fortifiedfruit juice. Calcium-fortified means that calcium has been added to these drinks. ? 8 oz (237 mL) of kefir, yogurt, and soy yog (more content not included)...[facility] 14-74-7971NfrrfiojqEyhkfczio From: Felicita Miranda To: JANET Loomis; Sent: 07/07/2024 11:05:34 EST Show up: 11/04/2024 12:05:00 EDT Subject: Renal US @ [facility] Due Date/Time: 12/05/2024 12:05:00 EDT Reminder Message Renal US prior to 6 month appt. [facility]. Order placed.[facility] HospitalUrology Office/Clinic Noteon 89-20-1043Dogpprk Office/Clinic NoteUrology Office/Clinic Note Chief Complaint follwo [...] with voice recognition artificial intelligence software, specifically TapZilla, citibuddies and or Edlogics. Substitutions may have occurred due to the inherent limitations of voice recognition and artificial intelligence software. 1. Ureteral stone with hydronephrosis (N13.2: Hydronephrosis with renal and ureteral calculous obstruction) Hx of lithotripsy years ago. Pt presented to [facility] ER 06/01/24 due to left lower [...] or sooner if needed 4. Anticoagulated (Z79.01: assisted (current) use of anticoagulants) Hx of CHF, being treated by [facility]. S/p successful cardioversion 02/2024. On Eliquis [...] that visit. Follow-up With When Contact Information GEORGI TRUJILLO, MIKE, JASON Additional Instructions: 6 mos [...] Problem List/Past Medical History (more content not included)...[facility] HospitalComment on above:Result Comment: Electronically Signed By: MIKE SLADE MD\.br\Date and Time Signed: 07/07/24 12:30 EST\.br\Electronically Co-Signed By: Felicita Miranda\.br\Date and Time Co- Signed: 07/07/24 11:05 ESTXR Urography Retrograde Lefton 65-43-2999XP Urography Retrograde LeftExam Date/Time: 06/16/2024 08:45 EST [...] Dannyr in mGy = 9.05 DAP = [facility] HospitalMain OR Intraoperative Recordon [id number] OR Intraoperative RecordMain OR Intraoperative Record IntraOp Document Type FT Summary Primary Physician: MIKE SLADE MD Finalized Date/Time: 06/17/24 13:50:01 Pt. Name: BRANDI DALTON JR/Sex: 1940 Male Med Rec #: [id number] Physician: MIKE SLADE MD Financial #: [id number] Pt. Type: A Room/Bed: Admit/Disch: 06/16/24 06:37:20 [...] Attendee Morgan HERNANDEZ, Osmel SLADE MD, Gigi WIRER PASSENGER CAR, Paaym MCKEON Role Performed FOREST PRODUCTS TEACHER Surgeon - Primary Scrub - Primary Time In 06/16/24 08:02:00 06/16/24 08:02:00 06/16/24 08:02:00 Time Out 06/16/24 08:43:00 06/16/24 08:43:00 06/16/24 08:43:00 Procedure CYSTOSCOPY RETROGRADE CYSTOSCOPY RETROGRADE CYSTOSCOPY RETROGRADE STENT INSERTION(Left) STENT INSERTION(Left) STENT INSERTION(Left) Comments DR. LY PLUMBING AND HEATING CONTRACTOR Last Modified By: Forest Zuleta Ii, Alfons Ii F Letrondo, Alfons Ii F 06/16/24 12:38:05 06/16/24 12:38:05 06/16/24 12:38:05 Entry 4 Entry 5 Case Attendee Forest Zuleta Ii RT(R), Ofelia Role Performed Assistant Professor Surgical Technology - Primary Aircraft Instrument Engineer Time In 06/16/24 08:02:00 06/16/24 08:02:00 Time Out 06/16/24 08:43:00 06/16/24 08:43:00 Procedure CYSTOSCOPY RETROGRADE CYSTOSCOPY RETROGRADE STENT INSERTION(Left) STENT INSERTION(Left) Comments Last Modified By: Forets Zuleta Ii, Alfons Ii F 06/16/24 12:38:05 06/16/24 12:38:05 General Comments: ELIA DUMAS IS IN ATTENDANCE. /DARRIAN WADEroll forger Protocols FT Pre-Care Text: Implements protective measures [...] STONE Outcomes Met? Yes Last Modified By: MerlynNathangerson Jackson 06/16/24 08:47:36 Post-Care Text: The patient is free from signs and symptoms of infection Skin Assessment (Pre Procedure) FT Pre-Care Text: Implements protective measures to prevent skin/ tissue injury due to thermal or mechanical sources Evaluates for signs and symptoms of physical injury to skin and tissue Entry 1 Skin Integrity Intact, Pin (more content not included)...[facility] HospitalDischarge Instructionson [id number] InstructionsDischarge Instructions BRANDI DALTON JR :1940 Visit [...] as needed for for constipation Pickup at [facility]/pharmacy #[id number] New oxycodone (oxyCODONE 5 mg Cap) 1 Capsules By Mouth Every 6 hours as needed for for pain Pickup at [facility]/pharmacy #6177 New tamsulosin (Flomax 0.4 mg Cap) 1 Capsules By Mouth Every day Pickup at [facility]/pharmacy #6177 Changed multivitamin with minerals (Centrum Silver) [...] Microgram By Mouth Every day Pharmacy Information [facility]/pharmacy #[id number]: [address], [place] [id number] [phone] Test Results No qualifying data available. Allergies No Known Medication Allergies Problems Ongoing - Any problem that you are currently receiving treatment for. Anticoagulated BPH with urinary obstruction Former smoker Frequent urination History of kidney stones Kidney stone Nocturia Renal lesion Ureteral stone with hydronephrosis [employer] [facility], [place] Dr. Kurtis Alegria Post-operative Instructions for [...] other reasons. If it is to remain jail, however, changes of the stent are required (about every 3-4 months). Diet You may resume your normal diet, but you may want to start slowly and av (more content not included)...[facility] HospitalComment on above:Result Comment: Electronically Signed By: Serafin COLMENARES, Nathalie Epps\.br\Date and Time Signed: 06/16/24 09:08 ESTInpatient Patient Summaryon [id number] Patient SummaryInpatient Patient Summary [place] [id number] [facility] Clinical Discharge Instructions PERSON INFORMATION Name: BRANDI DALTON JR PHYSICIANS Admitting Physician: MIKE SLADE MD Attending Physician: MIKE SLADE MD PCP: Samantha Maya MD Discharge Diagnosis: Comment: PATIENT EDUCATION INFORMATION Instructions: Medication Leaflets: Follow up: With: Address: When: MIKE SLADE Comments: 1-2 weeks to discuss TURP MEDICATION LIST New Medications [facility]/pharmacy #[id number], [address], [place] [id number], [phone] docusate (Colace 50 mg oral capsule) 1 [...] selenium 200 Microgram By Mouth every day. Comment:[facility] HospitalMain OR PACU II Recordon [id number] OR PACU II RecordMain OR PACU II Record PACU Phase II Document Type FT Summary Primary Physician: MIKE SLADE MD Finalized Date/Time: 06/16/24 11:10:23 Pt. Name: BRANDI DALTON JR./Sex: 1940 Male Med Rec #: [id number] Physician: MIKE SLADE MD Financial #: [id number] Pt. Type: A Room/Bed: [facility]/ Admit/Disch: 06/16/24 06:37:20 - Institution: Case [...] Signatures Signed By: Jacquelyn Sheth RN 06/16/24 11:10NoKing's Daughters Medical [facility] [place]Main OR Preoperative Recordon [id number] OR Preoperative RecordMain OR Preoperative Record PreOp Document Type FT Summary Primary Physician: MIKE SLADE MD Finalized Date/Time: 06/16/24 08:32:17 Pt. Name: BRANDI DALTON JR./Sex: 1940 Male Med Rec #: [id number] Physician: MIKE SLADE MD Financial #: [id number] Pt. Type: A Room/Bed: [facility] Admit/Disch: 06/16/24 06:37:20 - Institution: Case Times [...] Signatures Signed By: Forest Zuleta Ii 06/16/24 08:32[facility] HospitalOperative Reporton [id number] ReportOperative Report Patient: BRANDI DALTON JR Age: 83 years Sex: Male : 1940 Associated Diagnoses: None Author: MIKE SLADE MD Procedure SURGEON: Mike Sldae MD PREOPERATIVE DIAGNOSIS: Left obstructing proximal ureteral [...] in the room agreed. A well-lubricated 22 Gabonese scopic sheath with 30 units was inserted [...] obtain a renal ultrasound, KUB in 6 weeks.[facility] HospitalComment on above:Result Comment: Electronically Signed By: MIKE SLADE MD\.br\Date and Time Signed: 06/16/24 09:02 EST Outpatient Surgery Discharge Instructionon [id number] Surgery Discharge InstructionOutpatient Surgery Discharge Instruction [place] [id number] Patient Discharge Instructions PERSON INFORMATION Name: BRANDI [...] Information: You may receive a survey from [email or web address] asking you to rate your care experience. Your feedback is important and will help us understand what we do well and how we can improve the quality of care we provide to you, your loved ones and our community. It???s an honor to serve you. Thank you for choosing [facility] HERE ARE THE MEDICATION CHANGES THAT OCCURRED DURING YOUR HOSPITAL STAY New Medications [facility]/pharmacy #[id number], [address], [place] [id number], [phone] docusate (Colace 50 mg oral capsule) 1 [...] every day. PATIENT EDUCATION INFORMATION Instructions: Medication Leaflets:[facility] HospitalCNCOon [id number] TextNormalCCleveland Clinic Hillcrest HospitalAmbulatory Visit Summaryon 06-09-2024 Ambulatory Visit SummaryAmbulatory [...] Follow-Up Appointments 2024 12:00 PM EST Where: [facility] 2024 9:00 AM EST Where: [facility] You Need to Schedule [...] including vitamins, herbs, eye drops, creams, and mrfv-ynj-saccwfn medicines. ??? Any problems you or family [...] foods, or fatty f (more content not included)...NormalVeterans Health AdministrationBMPon 90-22-6428Psnjp gap [Moles/Vol]11 mmol/LNormal6-16Veterans Health AdministrationComment on above: Performed By: #### [id number] #### [facility] [address] [place] [address]Latzccf [Mass/Vol]9.8 mg/dLNormal8.9-11.1FLutheran HospitalComment on above:Performed By: #### [id number] #### [facility] [address], [place] [address]Gsrgijmw [Moles/Vol]101 mmol/OKuzpxh043-054BynezcVeterans Health AdministrationComment on above:Performed By: #### [id number] #### [facility] [address] [place], [place] [address]XG3 [Moles/Vol]32 mmol/ASgri43-63WgqdajVeterans Health Administration Comment on above:Performed By: #### [id number] #### [facility] [address] [place], [place] [address]Lblfspylmj [Mass/Vol]1.3 mg/dLNormal0.5-1.3FLutheran HospitalComment on above:Performed By: #### [id number] #### [facility] [address] [place], [place] [address]Ypijlep [Mass/Vol]90 mg/iWOqvqsa95-727FkojwpVeterans Health AdministrationComment on above:Performed By: #### [id number] #### [facility] [address] [place], [place] [address]Bjakosevb [Moles/Vol]4.5 mmol/LNormal3.5-5.3FLutheran HospitalComment on above:Performed By: #### [id number] #### [facility] [address] [place], [place] [address]Kqoaam [Moles/Vol]139 mmol/IYxwasn579-499ArikntVeterans Health AdministrationComment on above:Performed By: #### [id number] #### [facility] [address] [place], [place] [address]Qxiq nitrogen [Mass/Vol]25 mg/dLHigh5-21Veterans Health AdministrationComment on above:Performed By: #### [id number] #### [facility] [address] [place], [place] [address]Hrdj nitrogen/Creatinine [Mass ratio]19 No ZoqrvMqvlxa72-24 Veterans Health AdministrationComment on above:Performed By: #### [id number] #### [facility] [address] [place] [address]QCO w/ Auto Diffon 18-00-7477Sqwdydvjh/100 WBC (Bld)0.7 %Normal 0.0-2.0Veterans Health AdministrationComment on above:Performed By: #### [id number] #### [facility] [address] [place], [place] [address]Gaoiegiln/Leukocytes Auto (Bld) [Pure # fraction]0.0 E9/LNormal 0.0-0.2FLutheran HospitalComment on above:Performed By: #### [id number] #### [facility] [address] [place] [address]Xcbaddohvyt (Bld) [#/Vol]0.5 E9/LNormal0.0-0.5FLutheran HospitalComment on above:Performed By: #### [id number] #### [facility] [address] [place] [address]Zkvppgoncqh/100 WBC (Bld)7.5 %Normal0.0-8.0Veterans Health AdministrationComment on above:Performed By: #### [id number] #### [facility] [address] [place] [address]Qqiazpnruhc distribution width (RBC) [Ratio]12.8 %Normal 10.9-14.2FLutheran HospitalComment on above:Performed By: #### [id number] #### [facility] [address] [place], [place] [address]Iuegqjjuos (Bld) [Volume fraction]38.3 %Oyyank95.7-49.0Veterans Health AdministrationComment on above:Performed By: #### [id number] #### [facility] [address] [place], [place] [address]Ejpvhvsqyx (Bld) [Mass/Vol]13.3 g/dLLow13.5-17.5FLutheran HospitalComment on above:Performed By: #### [id number] #### [facility] [address] [place] [address]Iktobbgmtrr (Bld) [#/Vol]1.0 E9/LNormal1.0-4.0Veterans Health AdministrationComment on above:Performed By: #### [id number] #### [facility] [address] [place] [address]Ltikgginrjx/100 WBC (Bld)15.8 %Tvmktj64.0-50.0Veterans Health AdministrationComment on above:Performed By: #### [id number] #### [facility] [address] [place] [address]RNM (RBC) [Entitic mass]35.9 vaQrln60.0-34.0Veterans Health AdministrationComment on above:Performed By: #### [id number] #### [facility] [address] [place] [address]RTCD (RBC) [Mass/Vol]34.7 g/iSTvarvt24.4-36.0Veter[facility] Health AdministrationComment on above:Performed By: #### [id number] #### [facility] [address] [place] [address]BHW (RBC) [Entitic vol]103.4 wOFmtp03.0-100.0Veterans Health AdministrationComment on above:Performed By: #### [id number] #### [facility] [address] [place] [address]Kuulvjndy (Bld) [#/Vol]0.6 E9/LNormal0.2-1.0Veter[facility] Health AdministrationComment on above:Performed By: #### [id number] #### [facility] [address] [place] [address]Avnljwqosui (Bld) [#/Vol]4.4 E9/LNormal2.0-7.5FLutheran HospitalComment on above:Performed By: #### [id number] #### [facility] [address] [place], [place] [address]Fndjmtseagz/100 WBC (Bld)66.3 %Ahbdgf77.0-75.0Veterans Health AdministrationComment on above:Performed By: #### [id number] #### [facility] [address] [place], [place] [address]Uhixqeaj567.0 E9/VSrfwii591.0-500.0[facility] Comment on above:Performed By: #### [id number] #### [facility] [address] [place], [place] [address]Djopxcil mean volume (Bld) [Entitic vol]7.9 fLNormal6.4-10.8 Veterans Health AdministrationComment on above:Performed By: #### [id number] #### [facility] [address] [place], [place] [address]TCG (Bld) [#/Vol]3.7 E12/LLow4.3-5.9[facility] Comment on above:Performed By: #### [id number] #### [facility] [address] [place] [address]OSF corrected for nucl RBC Auto (Bld) [#/Vol]6.6 E9/LNormal 4.0-11.0Veterans Health AdministrationComment on above:Performed By: #### [id number] #### [facility] [address] [place], [place] [address]ZNZIQSGUJUwilois By: SYSTEM SYSTEM on 33-12-2221Ndxtx gap [Moles/Vol]11 mmol/LNormal6 - 16 mEq/LRemisol ChemCalcium [Mass/Vol]9.8 mg/dL Normal8.9 - 11.1 mg/dLRemisol ChemChloride [Moles/Vol]101 mmol/KWrcthu961 - 111 mmol/LRemisol ChemCO2 [Moles/Vol]32 mmol/LHigh21 - 31 mmol/LRemisol Chem Creatinine [Mass/Vol]1.3 mg/dLNormal0.5 - 1.3 mg/dLRemisol NhirpEBV79 mL/min/1.73 m2Low>=59mL/min/1.73 g3Smxgqsf ChemGlucose [Mass/Vol]90 mg/dLNormal 55 - 199 mg/dLRemisol ChemPotassium [Moles/Vol]4.5 mmol/LNormal3.5 - 5.3 mmol/L Remisol ChemSodium [Moles/Vol]139 mmol/HEqglnp882 - 145 mmol/LRemisol ChemUrea nitrogen [Mass/Vol]25 mg/dLHigh5 - 21 mg/dLRemisol ChemUrea nitrogen/Creatinine [Mass ratio]19 mg/bpSunteo09 - 20Remisol ChemCOAGULATIONOrdered By: Shawanda Andujar on 01-48-7784rJBS Coag (PPP) [Time]35.3 oHvbmnj88.1 - 36.5 second(s)[facility] Auto CoagComment on above:Interpretive Data: Parameter 15 [...] the same coagulation reagent and instrumentation as [facility]. Currently there are no coagulation studies available worldwide for children to 14 days, andno normal ranges. Heparin therapeutic range (represented by Anti-Factor Xa activity of 0.2 - 0.4 U/mL) corresponds to PTT of 56.6 - 109.0 sec.INR Coag (PPP) [Relative time]1.25 {INR}Invalid Interpretation CodeCLAREMORE INDIAN HOSPITAL [facility] [place] Auto CoagComment on above:Interpretive Data: INR results are specifically intended to assess patients stabilized on long-term Anticoagulation therapy suggested INR s Less Intensive Anticoagulation 2.0 3.0 Conventional Range 3.0 4.5PT Coag (PPP) [Time]14.0 [facility]9.4 - 12.5 second(s)[facility] Auto CoagComment on above:Interpretive Data: 15 days [...] the same coagulation reagent and instrumentation as [facility]. Currently there are no coagulation studies available worldwide for children to 14 days, andno normal ranges.HEMATOLOGYOrdered By: SYSTEM SYSTEM on 26-20-1539Wkeuxupgg/100 WBC (Bld)0.7 %Normal0.0 - 2.0 %Remisol HemeBasophils/Leukocytes Auto (Bld) [Pure # fraction]0.0 E9/LNormal0.0 - 0.2 E9/LRemisol HemeEosinophils (Bld) [#/Vol]0.5 E9/LNormal0.0 - 0.5 E9/LRemisol HemeEosinophils/100 WBC (Bld)7.5 %Normal0.0 - 8.0 %Remisol HemeErythrocyte distribution width (RBC) [Ratio]12.8 %Kmdoth35.9 - 14.2 %Remisol HemeHematocrit (Bld) [Volume fraction]38.3 %Gqyktp67.7 - 49.0 % Remisol HemeHemoglobin (Bld) [Mass/Vol]13.3 g/dLLow13.5 - 17.5 gm/dLRemisol Heme Lymphocytes (Bld) [#/Vol]1.0 E9/LNormal1.0 - 4.0 E9/LRemisol HemeLymphocytes/100 WBC (Bld)15.8 %Jobifs04.0 - 50.0 %Remisol HemeMCH (RBC) [Entitic mass]35.9 pg High27.0 - 34.0 pgRemisol HemeMCHC (RBC) [Mass/Vol]34.7 g/cDJxywns12.4 - 36.0 gm/dLRemisol HemeMCV (RBC) [Entitic vol]103.4 mZZibb37.0 - 100.0 fLRemisol Heme Monocytes (Bld) [#/Vol]0.6 E9/LNormal0.2 - 1.0 E9/LRemisol HemeMonocytes/100 WBC (Bld)9.7 %Normal4.0 - 14.0 %Remisol HemeNeutrophils (Bld) [#/Vol]4.4 E9/LNormal 2.0 - 7.5 E9/LRemisol HemeNeutrophils/100 WBC (Bld)66.3 %Eedxnd45.0 - 75.0 % Remisol RqddZygncbwk084.0 E9/SCrzpil657.0 - 500.0 E9/LRemisol HemePlatelet mean volume (Bld) [Entitic vol]7.9 fLNormal6.4 - 10.8 fLRemisol HemeRBC (Bld) [#/Vol] 3.7 E12/LLow4.3 - 5.9 E12/LRemisol HemeWBC corrected for nucl RBC Auto (Bld) [#/Vol]6.6 E9/LNormal4.0 - 11.0 E9/LRemisol HemePT & PTTon 72-61-9192dOWA Coag (PPP) [Time]35.3 second(s)Bkwaxu92.1-36.5Fisher Thomas B. Finan CenterComment on above:Result Comment: Parameter 15 days - [...] the same coagulation reagent and instrumentation as [facility]. Currently there are no coagulation studies available worldwide for children to 14 days, andno normal ranges. Heparin therapeutic range (represented by Anti-Factor Xa activity of 0.2 - 0.4 U/mL) corresponds to PTT of 56.6 - 109.0 sec.Performed By: #### [id number] ####[facility] [address] [place], [place] [address]CGF Coag (PPP) [Relative time]1.25 {INR}Invalid Interpretation CodeVeterans Health AdministrationComment on above:Result Comment: INR results are specifically intended to assess patients stabilized on long-term Anticoagulation therapy suggested INR???s ???Less Intensive Anticoagulation??? 2.0 ??? 3.0 Conventional Range 3.0 ??? 4.5Performed By: #### [id number] ####[place] [place] [address] [place], [place] [address]NC Coag (PPP) [Time] 14.0 second(s)High9.4-12.5Fisher Thomas B. Finan CenterComment on above:Result Comment: 15 days - 4 [...] the same coagulation reagent and instrumentation as [facility]. Currently there are no coagulation studies available worldwide for children to 14 days, andno normal ranges.Performed By: #### [id number] ####[facility] [address] [place], [place] [address]HH with Cult Rflxon 06-09-2024 Bilirubin Ql (U)NegativeNormalNegativeVeterans Health AdministrationComment on above:Performed By: #### [id number] #### [facility] [address] [place], [place] [address]Yrmabvr (U)ClearNormalClearVeterans Health AdministrationComment on above:Performed By: #### [id number] #### [facility] [address] [place], [place] [address]Yqjmz (U)Light-YellowNormalYellowVeterans Health Administration Comment on above:Result Comment: Microscopic readings are only performed on those samples that meet specific criteria set forth by [facility].Performed By: #### [id number] #### [facility] [address] [place], [place] [address]Ndwbpqd Ql (U)NegativeNormalNegTuscarawas Hospital Comment on above:Performed By: #### [id number] #### [facility] [address] [place], [place] [address]Tpxhrzcldh Auto test strip (U) [Mass/Vol]NegativeNormalNegative [facility] Health AdministrationComment on above:Performed By: #### [id number] #### [facility] [address] [place], [place] [address]Usmjwoy Auto test strip Ql (U)NegativeNormalNegativeVeterans Health AdministrationComment on above:Performed By: #### [id number] #### [facility] [address], [place] [address]Luzkmcdth esterase Auto test strip Ql (U)NegativeNormalNegative [facility] AdministrationComment on above:Performed By: #### [id number] #### [facility] [address], [place] [address]Jqbegll Auto test strip Ql (U)NegativeNormalNegativeVeterans Health AdministrationComment on above:Performed By: #### [id number] #### [facility] [address], [place] [address]aH (U)5.5 [pH]Invalid Interpretation Code5.0-9.0V[facility] Health AdministrationComment on above:Performed By: #### [id number] #### [facility] [address] [place] [address], [place] [address]Cbqedki Ql (U)NegativeNormalNegativeVeterans Health Administration Comment on above:Performed By: #### [id number] #### [facility] [address] [place] [address], [place] [address]Hylmzirs gravity (U) [Rel density]1.012Invalid Interpretation Code1.005-1.030Veter[facility] Health AdministrationComment on above:Performed By: #### [id number] #### [facility] [address] [place], [place] [address]Csifjxhhhijq (U) [Mass/Vol]NegativeNormalNegTuscarawas HospitalComment on above:Performed By: #### [id number] #### [facility] [address] [place] [address]Lera of Urine collection methodClean CatchOur Lady of Mercy HospitalComment on above:Performed By: #### [id number] #### [facility] [address] [place], [place] [address]QPFBTLJJWTVbvnnat By: SYSTEM SYSTEM on 62-66-7545Uvqfkuxkc Ql (U)NegativeNormalNegativemg/dLFT UA Auto SSClarity (U)Clear (06/09/24 12:42 PM)NormalClearFSOUTHWESTERN MEDICAL [facility] UA Auto SSColor (U)Light-Yellow 1 (06/09/24 12:42 PM)NormalYellowCLAREMORE INDIAN [facility]OS[facility] [place] UA Auto SSComment on above:Interpretive Data: Microscopic readings are only performed on those samples that meet specific criteria set forth by [facility].Glucose Ql (U) NegativeNormalNegativemg/dLFT UA Auto SSHemoglobin Auto test strip (U) [Mass/Vol]NegativeNormalNegativemg/dLFT UA Auto SSKetones Auto test strip Ql (U)NegativeNormalNegativemg/dLFT UA Auto SSLeukocyte esterase Auto test strip Ql (U)NegativeNormalNegativeLeu/uLFT UA Auto SSNitrite Auto test strip Ql (U) NegativeNormalNegativemg/dLCLAREMORE [facility]DI[facility] UA Auto SSpH (U)5.5 *NA* (06/09/24 12:42 PM)Invalid Interpretation Code5.0 - 9.0[facility] UA Auto SSProtein Ql (U)NegativeNormalNegativemg/dLCLAREMORE INDIAN [facility]OSPITAL [facility] [place] UA Auto SSSpecific gravity (U) [Rel density] 1.012 *NA* (06/09/24 12:42 PM)Invalid Interpretation Code1.005 - 1.030[facility] UA Auto SS Urobilinogen (U) [Mass/Vol]NegativeNormalNegativemg/dLCLAREMORE INDIAN HOSPITAL [facility] [place] UA Auto SSURINALYSIS Ordered By: Jacquelyn Sheth on 66-03-4379XP Spec DescClean Catch (06/09/24 12:42 PM)NormalCLAREMORE INDIAN HOSPITAL [facility] UA Auto SSUrology Office/Clinic Noteon 06-09-2024 Urology Office/Clinic NoteUrology Office/Clinic Note Chief Complaint er f/u HPI Staff 83 yr male here for [facility] ED f/u for kidney stones. No [...] with voice recognition artificial intelligence software, specifically [employer], citibuddies and or [employer]. Substitutions may have occurred due to the inherent limitations of voice recognition and artificial intelligence software. 1. Ureteral stone with hydronephrosis (N13.2: Hydronephrosis with renal and ureteral calculous obstruction) Hx of lithotripsy years ago. Pt presented to [facility] ER 06/01/24 due to left lower [...] US results at f/up 3. 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. S/p successfu (more content not included)...[facility] HospitalComment on above:Result Comment: Electronically Signed By: MIKE SLADE MD\.br\Date and Time Signed: 06/09/24 10:26 EST\.br\Electronically Co-Signed By: Felicita Miranda\.br\Date and Time Co-Signed: 06/09/24 10:20 EST\.br\Electronically Co-Signed By: Felicita Miranda\.br\Date and Time Co-Signed:06/09/24 10:22 ESTXR Chest 2 Viewson 58-61-7481XQ Chest 2 ViewsExam Date/Time: 06/09/2024 12:53 EST [...] Ka,r in mGy = na DAP = naNormalVeterans Health AdministrationeGFRon 99-73-3328pFNG41 mL/min/1.73 m2 Low>=59Veterans Health AdministrationComment on above:Performed By: #### [id number] #### [facility] [address] [place], [place] [address]Ohnbl metabolic 2000 panelon 55-08-8744Qgmup gap [Moles/Vol]13 mmol/LNormal8-15Uc Medical CenterComhenry ford [facility] on above:Order Comment: Specimen Type: BLOOD SPECIMENOrdering Facility: [facility] Address:[address] [place], [place] [address]Performed By: #### 44620-8, 77724-6 ####[facility] LABCLIA [id number] [place] [id number] [address] [place] STATES OF AMERICACalcium [Mass/Vol]10.2 mg/dL Normal8.5-10.2CCleveland Clinic Hillcrest HospitalComhenry ford kings[facility] on above:Order Comment: Specimen Type: BLOOD SPECIMENOrdering Facility: [facility] Address:[address] [place], [place] [address]Performed By: #### 40523-3, 03467-3 ####[facility] LABCLIA [id number] [place] [address] [place] OF AMERICAChloride [Moles/Vol]101 mmol/L Wxerpg19-390WdkrrloedPremier Health [facility] on above:Order Comment: Specimen Type: BLOOD SPECIMENOrdering Facility: [facility] Address:[address] [place], [place] [address]Performed By: #### 40403-5, 33012-5 ####[facility] LABCLIA [id number] [place] [address] [place] AMERICACO2 [Moles/Vol]25 mmol/TZwsheu76-40BnvrwbnctPremier Health [place] [facility] on above:Order Comment: Specimen Type: BLOOD SPECIMENOrdering Facility: [facility] Address:[address] [place], [place] [address]Performed By: #### 56345-4, 80793-4 ####[facility] LABCLIA [id number] [place] [address] [place] AMERICACreatinine [Mass/Vol]1.32 mg/dLHigh0.73-1.22[facility] [place] [facility] on above:Order Comment: Specimen Type: BLOOD SPECIMENOrdering Facility: [facility] Address:[address] [place], [place] [address]Performed By: #### 31588-1, 25143-5 ####[facility] LABIA [id number] [place] [address] [place] AMERICACreatinine and Glomerular filtration rate.predicted panel (S/P/Bld)54 mL/min/1.73m???Low>=60[facility] [place] [facility] on above:Order Comment: Specimen Type: BLOOD SPECIMENOrdering Facility: [facility] Address:[address] [place], [place] [address]Result Comment: Estimated Glomerular Filtration Rate (eGFR) is calculated using the 2020 CKD-EPI creatinine equation. This equation utilizes serum creatinine, sex, and age as parameters. The creatinine assay has traceable calibration to isotope dilution-mass spectrometry. Refer to KDIGO guidelines for clinical interpretation. In patients with unstable renal function, e.g. those with acute kidney injury, the eGFR may not accurately reflect actual GFR.Performed By: #### 50337-3, 19976-7 ####[facility] LABIA [id number] [place] [address] [place] AMERICAGlucose [Mass/Vol]100 mg/dLHigh 74-99[facility] [place] [facility] on above:Order Comment: Specimen Type: BLOOD SPECIMENOrdering Facility: [facility] Address:[address] [place], [place] [address]Result Comment: The [place] Diabetes Association (ADA) provides guidance for cutoff [...] Standards of Medical Care in Diabetes 2016, [place] Diabetes Association. Diabetes Care. 2016.39(Suppl 1).Performed By: #### 27739-9, 28151-1 ####[facility] LABIA [id number] [place] [address] [place] AMERICAPotassium [Moles/Vol]4.7 mmol/L Normal3.7-5.1CMercy Health Defiance Hospital on above:Order Comment: Specimen Type: BLOOD SPECIMENOrdering Facility: [facility] Address:[address] [place], [place] [address]Performed By: #### 84639-5, 69548-5 ####[facility] LABIA [id number] [place] [address] [place] AMERICASodium [Moles/Vol]139 mmol/IMbilfm891-224VfxudibijPremier Health [place] [facility] on above:Order Comment: Specimen Type: BLOOD SPECIMENOrdering Facility: [facility] Address:[address] [place], [place] [address]Performed By: #### 15791-0, 90344-9 ####[facility] LABCLIA [id number] [place] [address] [place] AMERICAUrea nitrogen [Mass/Vol]33 mg/dLHigh9-24[facility] [place] [facility] on above:Order Comment: Specimen Type: BLOOD SPECIMENOrdering Facility: [facility] Address:[address] [place], [place] [address]Performed By: #### 96018-6, 17707-8 ####[facility] LABCLIA [id number] [place] [address] [place] AMERICACNOVon 57-34-2155JHRXUilhrb Visit (CARD CHF RHONA) RBANDI DALTON ([id number]) 1940 M Date Time Provider Department 05/24/24 10:15 AM KENDRA MENDOZA CARD CHF RHONA During your visit today, we recorded the following information about you: Pulse Respiration Blood pressure Weight 60/minute 15/minute 165/79 70.3 kg Height 1.651 m Kendra Mendoza MD 05/24/2024 5:30 PM Signed Heart and Vascular [facility] SECTION OF HEART FAILURE and CARDIAC TRANSPLANT MEDICINE OUTPATIENT VISIT DATE May 24, 2024 OUTPATIENT VISIT TYPE Established Patient PRIMARY CARE PHYSICIAN: Samantha Maya [address] [place] [address] CHIEF COMPLAINT: HF f/u NURSING INTAKE (Patient?s [...] Take 5 mg by mouth once daily. Rplprxgybbqgq-Hyztjwyd-Xxyzrm (CENTRUM SILVER) tab Take 1 tablet by [...] lb 8 oz) SpO2 (more content not included)...NormalDayton [facility]opathic [facility]-2024 EchocardiographyEchocardiography Report: Transthoracic Echo [facility] J35 Date of service: 05/24/2024 8:08:07 [...] * * * Final * * * Signal Data Medical Image : [id number]u Uc Medical CenterNT-proBNP SerPl-mCncon 97-14-0131Exjqnynqidv peptide.B prohormone N-Terminal [Mass/Vol]338 pg/mLNormal<450[facility] Comment on above:Order Comment: Specimen Type: BLOOD SPECIMENOrdering Facility: [facility] Address:[address] [place] [address] Performed By: #### 80065-6, 95474-7 ####[facility] LABCLIA [id number] [facility] Q31WR[place] [address] [place] JASKARAN CNCOon 46-48-1434KCDEXwghiy TextNormalCCleveland Clinic Hillcrest HospitalCNPNon 19-89-9140DSYCBlgyxnfuy (CARDMN) BRANDI DALTON ([id number]) 1940 M Date Time Provider Department 05/10/24 RD QURESHI CARDNAYANA During your visit today, we recorded the following information about you: Georgia Cannon 05/10/2024 10:41 AM Signed May 10, 2024 Patient Contact Number: [phone] (home) [phone] (work) [phone] (cell) Patient last seen within the last [...] by mouth two times a day. - Bnjuttxvfaofc-Brbfucos-Ayjmqf (CENTRUM SILVER) tab Take 1 tablet by [...] (None) Encounter Status:Closed by IAN HOGUE on 05/16/24[facility] 44-98-0675PCHCFmmqny Visit (CARD [facility] RHONA) BRANDI DALTON ([id number]) 1940 M Date Time Provider Department 03/18/24 10:00 AM COMPA CORCORAN [facility] RHONA During your visit today, we recorded the following information about you: Pulse Blood pressure Weight Height 69/minute 147/86 70.9 kg 1.651 m Compa Corcoran APRN.GERIATRIC NURSE ASSISTANT 03/18/2024 4:06 PM [facility] SECTION OF HEART FAILURE and CARDIAC TRANSPLANT MEDICINE OUTPATIENT VISIT DATE 03/18/2024 PRIMARY CARE PHYSICIAN: Samantha Maya [address] [place] [address] 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 Mendoza CHIEF COMPLAINT: Follow-up HISTORY OF [...] Take 40 mg by mouth once daily. Ddbfnqwaxihtg-Joatkqnt-Zisbcb (CENTRUM SILVER) tab Take 1 tablet by [...] No gallop. No Rub. (more content not included)...NormalHolzer Health System COMPLETEon 49-73-2915QCX COMPLETEVentricular Rate : 79 BPM Atrial Rate : 71 BPM P-R Interval : 212 ms QRS Duration : 116 ms Q-T Interval : 394 ms QTC Calculation(Bazett) : 451 ms Calculated P [place] : 86 degrees Calculated R [place] : 60 degrees Calculated T [place] : 1 degrees SINUS RHYTHM WITH 1ST DEGREE AV BLOCK WITH PREMATURE VENTRICULAR COMPLEXES NONSPECIFIC ST ABNORMALITY ABNORMAL ECG Reconfirmed by CHANDRIKA NEVAREZ MD ([id number]) on 04/13/2024 4:08:20 PM NAME : BRANDI DALTON PID : [id number] : 1940 Gender : Male Race : ORD : [id number] Procedure Date : Mar 18 2024 08:33:32 Edit Date : Apr 13 2024 16:08:24 Diagnosis: SINUS RHYTHM WITH 1ST DEGREE AV BLOCK WITH PREMATURE VENTRICULAR COMPLEXES NONSPECIFIC ST ABNORMALITY ABNORMAL ECG Reconfirmed by CHANDRIKA NEVAREZ MD ([id number]) on 04/13/2024 4:08:20 PM Test Reason : Location : 314 : 14 Overread By : CHANDRIKA NEVAREZ MD Edited By : CHANDRIKA NEVAREZ MD Referred By : ARSEN TALAVERA Acquired by : Randy MURPHYOhioHealth TRANSESOPHAGEAL on 43-48-0073PAZSRKWUNSV: - Exam indication: Pre Cardioversion, Pre AF [...] [facility] Echocardiography Report: Transesophageal Echo [facility] J1-5 Date of service: 02/09/2024 1:23:25 PM 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 HEART AND VASCULAR INSTITUTESt. Vincent HospitalECG 12 Leadon 49-25-3816JRE revealed atrial fibrillation with RVR, diffuse ST and T changesCPTrinity Health System East Campus Work Phone: Office Visit (Cardiology)on 35-52-5912Iybxqi-up visit Diagnoses/Problems Assessed Persistent atrial fibrillation with [...] 500 MG CAPSTAKE 1 CAPSULE Daily Saw Afton 450 MG Oral CapsuleTAKE DIRECTED. Selenium 200 [...] Vital Signs Recorded: 01Dec2022 01:03PMRecorded: 01Dec2022 12:48PM Hsgsvxqi78893, RUE, Sitting Fmbdrqrcv5748, RUE, Sitting Heart Rate76, L Radial Height5 ft 6 in Tcteir460 lb BMI Xzyhbposdv00.41 kg/m2 BSA Calculated1.89 Tobacco Useb) No Falls Screening (Age 18+)a) No falls within the (more content not included)... NormalUH TouchworksTobacco Screening.on 81-75-4296Uwkb risk assessmenta) No falls within the last cfjaGY-Bgsdfyehsv-Zjpwnwfs 250 DO Work Phone: Tobacco use status CPHSb) TmOB-Lkesbqwbkv-Ykmwshmw 250 DO Work Phone: [facility] echo transesophageal TEEon 97-39-5146ZIA echo transesophageal [facility] [place] [address] [place] [address] Echocardiogram Signed Patient: Brandi Dalton MR#: [id number] : 1940 Acct:[id number] Age/Sex: 82 / M ADM Date: 10/31/22 Loc: [place] Room: Type: [facility] Attending Dr: Avelina Chowdhury MD Ordering Provider: Avelina Chowdhury MD, [facility] Date of Service: 10/31/22/ ECH/ECH echo transesophageal SAHRON: DYSPNEA, MR, A-FIB. Copies to: Avelina Chowdhury MD, [facility] Reason For Study: DYSPNEA, MR, [...] 10/31/22 1247 Signed By: Avelina Chowdhury MD, [facility] 10/31/22 1605NoSamaritan North Health CenterBasi Metabolic Panelon 31-41-3321Entnr gap [Moles/Vol]9.3 mmol/L Normal6.0-15.0[facility]tering Health MiamisburgComment on above:Performed By: #### BMP, CBC #### [address] [address] USACalcium [Mass/Vol]9.1 mg/dLNormal8.6-10.3FMercy HealthComment on above:Result Comment: PERFORMED BY: [place] [address] PATHOLOGIST ELECTROMAGNET CRANE OPERATOR LILLIAN TILLMAN M.D.Performed By: #### BMP, CBC #### [place] [address] USAChloride [Moles/Vol]101 mmol/QBtvmtp10-872RvxqdogprKettering Health MiamisburgComment on above:Performed By: #### BMP, CBC #### [place] [address] USACO2 [Moles/Vol]34.3 mmol/LHigh21.0-31.0[facility] Health MiamisburgComment on above:Performed By: #### BMP, CBC #### [place] [address] USACreatinine [Mass/Vol]1.30 mg/dLNormal0.70-1.30[facility] Health MiamisburgComment on above:Performed By: #### BMP, CBC #### [place] [address] USAGFR/1.73 sq M.predicted MDRD (S/P/Bld) [Vol rate/Area] 54.849 mL/min/{1.73_m2}NormalKettering Health MiamisburgComment on above: Performed By: #### BMP, CBC #### [place] [address] USAGlucose [Mass/Vol]89 mg/lZNtrqrg70-015SyqnccngkKettering Health MiamisburgComment on above:Result Comment: Random Glucose Reference Range is dependent on time and content of last meal. Glucose of more than 200 mg/dL in a nonstressed, ambulatory subject supports the diagnosis of Diabetes Mellitus. ADA recommended reference rangePerformed By: #### BMP, CBC #### [place] [address] USAPotassium [Moles/Vol]4.6 mmol/LNormal3.5-5.1FMercy HealthComment on above:Performed By: #### BMP, CBC #### [address] [place] [address] USASodium [Moles/Vol]140 mmol/RNssoef594-003UqtsaqqclKettering Health MiamisburgComment on above:Performed By: #### BMP, CBC #### [facility] [address] [place] [address] USAUrea nitrogen [Mass/Vol]29 mg/dLHigh7-25K[facility] Health MiamisburgComment on above:Performed By: #### BMP, CBC #### [facility] [address] [place] [address] USAComplete Blood Count Auto Diffon 58-66-7622Ueqyndvcl (Bld) [#/Vol]0.1 10*3/uLNormal0.0-0.2FMercy HealthComment on above:Result Comment: PERFORMED BY: [place] [address] PATHOLOGIST ELECTROMAGNET CRANE OPERATOR LILLIAN TILLMAN M.D.Performed By: #### BMP, CBC #### [place] [address] USABasophils/100 WBC (Bld)1.1 %Normal.[facility] Health MiamisburgComment on above:Performed By: #### BMP, CBC #### [place] [address] USAEosinophils (Bld) [#/Vol]0.2 10*3/uLNormal0.0-0.45 [facility] MiamisburgComment on above:Performed By: #### BMP, CBC #### [place] [address] USAEosinophils/100 WBC (Bld)3.2 %Normal.[facility] Health MiamisburgComment on above:Performed By: #### BMP, CBC #### [place] [address] USAErythrocyte distribution width (RBC) [Ratio]14.4 %Normal 12.0-14.8[facility] MiamisburgComment on above:Performed By: #### BMP, CBC #### [place] [address] USAHematocrit (Bld) [Volume fraction]43.0 %Vmeggo91.8-50.0 [facility] MiamisburgComment on above:Performed By: #### BMP, CBC #### [facility] [address] [place] [address] USAHemoglobin (Bld) [Mass/Vol]14.4 g/mVUaoqng74.0-17.0 [facility] MiamisburgComment on above:Performed By: #### BMP, CBC #### [facility] [address] [place] [address] USALymphocytes (Bld) [#/Vol]1.0 10*3/uLNormal1.00-4.8 [facility] MiamisburgComment on above:Performed By: #### BMP, CBC #### [place] [address] USALymphocytes/100 WBC (Bld)21.1 %Normal.[facility] MiamisburgComment on above:Performed By: #### BMP, CBC #### [facility] [address] [place] [address] USAMCH (RBC) [Entitic mass]33.8 snGvzfww40.5-35.2FMercy HealthComment on above:Performed By: #### BMP, CBC #### [place] [address] USAMCV (RBC) [Entitic vol]100.8 eZQssxji50.5-101K[facility] MiamisburgComment on above:Performed By: #### BMP, CBC #### [facility] [address] [place] [address] USAMean Corpuscular HGB Conc33.5 g/aAXehuhw62.5-35.6FMercy HealthComment on above:Performed By: #### BMP, CBC #### [facility] [address] [place] [address] USAMonocytes (Bld) [#/Vol]0.6 10*3/uLNormal0.0-0.8[facility] MiamisburgComment on above:Performed By: #### BMP, CBC #### [facility] [address] [place] [address] USAMonocytes/100 WBC (Bld)11.8 %Normal.[facility] MiamisburgComment on above:Performed By: #### BMP, CBC #### [facility] [address] [place] [address] USANeutrophils (Bld) [#/Vol]2.9 10*3/uLNormal1.8-7.7FMercy HealthComment on above:Performed By: #### BMP, CBC #### [facility] [address] [place] [id number] USANeutrophils/100 WBC (Bld)62.8 %Normal.[facility] MiamisburgComment on above:Performed By: #### BMP, CBC #### [facility] [address] [place] [address] USANRBC%0.1 /100{WBC}Normal0-0.5FMercy HealthComment on above:Performed By: #### BMP, CBC #### [facility] [address] [place] [address] USAPlatelet mean volume (Bld) [Entitic vol]8.0 fLNormal 6.6-10.1FMercy HealthComment on above:Performed By: #### BMP, CBC #### [facility] [address] [place] [address] USAPlatelets (Bld) [#/Vol]213 10*3/vAJnyoqq558-053ClqpnpojeKettering Health MiamisburgComment on above:Performed By: #### BMP, CBC #### [facility] [address] [place] [address] USARBC (Bld) [#/Vol]4.27 10*6/uLNormal3.90-5.60[facility] MiamisburgComment on above:Performed By: #### BMP, CBC #### [facility] [address] [place] [address] USAWBC (Bld) [#/Vol]4.7 10*3/uLNormal4.1-10.5FMercy HealthComment on above:Performed By: #### BMP, CBC #### [facility] [address] [place] [id number] [facility] CENTEROffice Visit (Cardiology)on 73-20-4707Pdpxfc-up visit Diagnoses/Problems Assessed Mitral valve regurgitation (424.0) [...] an echocardiogram done recently at [facility] which I havethe report reviewed. It demonstrated [...] NameInst (more content not included)...NormalUH TouchworksTobacco Screening.on 98-86-5562Dvlwi depression screening assessmentNo-[facility] HeartA[facility] [employer] 250 DO Work Phone: Fall risk assessmenta) No falls within the last year [facility] 250 DO Work Phone: Tobacco use status CPHSb) NoM-[facility] [employer] 250 DO Work Phone: ECHOCARDIO M/2D COMPLETEon 96-18-0833MQDBANGPOC M/2D COMPLETEPatient: BRANDI DALTON Exam Date: 09/16/2022 : 1940 Gender:M Ordering : DR SAMANTHA MAYA . Admission #: [id number] Family : Order #: [id number] CLICK HERE TO VIEW EXAM ECHOCARDIOGRAM REPORT [...] by: Jt Lackey M.D. on 09/16/2022 at 20:23NoUniversity Hospitals TriPoint Medical CenterBNPon 36-58-4709Mcgzuegmfpy peptide B (Bld) [Mass/Vol]154.0 pg/mLNormal <=1,800.0The [facility] HospitalComment on above:Performed By: #### TSH, T7, CMP, BNP ####[facility] Dfdyv[address]ls[address] [place], [place] [address]Dr. Elver GibsonCBC AUTO DIFFon 94-33-4105UHOE #0.0 103/ulNormal0.0-0.1The [facility] HospitalComment on above:Performed By: #### CBC ####[facility] H[address]wq[address] [place], [place] [address]Dr.Elver ChangBasophils/100 WBC (Bld)0.6 %Normal0.2-2.0The [facility] HospitalComment on above:Performed By: #### CBC ####[facility] Bdlwgleprn[address] [place], [place] [address]Dr.Mariannelan ChangEO #0.2 103/ulNormal0.0-0.7The [facility] HospitalComment on above:Performed By: #### CBC ####[facility] Pjoxvt[address]dp[address] [place], [place] [address]Dr.Elver ChangEosinophils/100 WBC (Bld)4.1 %Normal 0.9-7.0The [facility] HospitalComment on above:Performed By: #### CBC ####[facility] Yvdrbbelhk[address] [place], [place] [address]Dr.Elver Gibson Erythrocyte distribution width (RBC) [Ratio]13.5 %Vusqgu95.0-15.0The [facility] HospitalComment on above:Performed By: #### CBC ####[facility] Chgvjuhmbs[address] [place], [place] [address]Dr.Elver ChangHematocrit (Bld) [Volume fraction]42.9 %Kbfphl24.0-54.0The [facility] HospitalComment on above:Performed By: #### CBC ####[facility] Diswosfwqz[address] [place], [place] [address]Dr.Elver ChangHemoglobin (Bld) [Mass/Vol]14.5 g/dL Shliqp62.0-18.0The [facility] HospitalComment on above:Performed By: #### CBC ####[facility] Bghjyymxue[address] [place], [place] [address]Dr. Elver ChangIG #0.01 10e3/ulNormal0.00-0.03The [facility] HospitalComment on above: Performed By: #### CBC ####[facility] Gjwpwihzdw[address] [place], [place] [address]Dr.Elver ChangIG %0.2 %Normal0.0-0.5The [facility] HospitalComment on above:Performed By: #### CBC ####[facility] Ugpvnonawb[address] [place], [place] [address]Dr.Elver GibsonLYMPH #1.2 103/ulNormal1.2-3.8The [facility] HospitalComment on above:Performed By: #### CBC ####[facility] Lbdpktshwq[address] [place], [place] [address]Dr. Elver ChangLymphocytes/100 WBC (Bld)21.8 %Udlmaa11.5-60.0The [facility] Comment on above:Performed By: #### CBC ####[facility] [address] [place] [address]Dr.Elver GibsonMANUAL DIFF REQNONormalThe [facility] HospitalComment on above:Performed By: #### CBC ####[facility] [address]ph[address] [place] [address]Dr.Elver GibsonH (RBC) [Entitic mass]33.4 jbNghftn64.9-34.0The [facility]andall HospitalComment on above: Performed By: #### CBC ####[facility] Mbkdigqsuq[address] [place], [place] [address]Dr.Elver GibsonHC (RBC) [Mass/Vol]33.8 g/dLNormal 29.9-35.2The [facility] HospitalComment on above:Performed By: #### CBC ####[facility] Mtmuabfbad[address] [place], [place] [address]Dr. Elver GibsonV (RBC) [Entitic vol]98.8 fLCritically high80.0-94.0The [facility] HospitalComment on above:Performed By: #### CBC ####[facility] Dwfkwhjdre[address] [place], [place] [address]Dr.Elver GibsonMONO #0.7 103/ulNormal0.3-0.8The [facility] HospitalComment on above:Performed By: #### CBC ####[facility] Rpslgvbweq[address] [place], [place] [address]Dr. Elver ChangMonocytes/100 WBC (Bld)13.3 %Critically high1.7-12.0The [facility] HospitalComment on above:Performed By: #### CBC ####[facility] Xjxloplokb[address] [place], [place] [address]Dr.Elver ChangNEUT #3.3 103/ulNormal1.4-6.5The [facility] HospitalComment on above:Performed By: #### CBC ####[facility] Hcvvjhjsjn[address] [place], [place] [address]Dr. Mariannelan ChangNeutrophils/100 WBC (Bld)60.0 %Dlyfsu77.0-75.0The [facility] Comment on above:Performed By: #### CBC ####[facility] [address] [place] [address]Dr.Elver GibsonPlatelet mean volume (Bld) [Entitic vol]9.5 fLNormal9.5-13.5The [facility] HospitalComment on above:Performed By: #### CBC ####[facility] Nulplrgzzg[address] [place], [place] [address]Dr.Mariannelan QtbsgZZP450 103/ofNilbzy014-767Tej Crandall HospitalComment on above:Performed By: #### CBC ####[facility] Mzwcqonqke[address] [place], [place] [address]Dr.Mariannelan ChangRBC4.34 106/ulCritically low4.70-6.10The [facility] HospitalComment on above:Performed By: #### CBC ####[facility] T[address]fezfwep[address] [place], [place] [address]Dr.Elver ChangWBC5.4 103/ul Normal4.0-11.0The [facility] HospitalComment on above:Performed By: #### CBC ####[facility] Olfjojjowr[address] [place], [place] [address]Dr. Mariannelan ChangFREE THYROXINE INDEX T7on 06-47-2743HLV4.31Yndato6.30-4.50The [facility] HospitalComment on above:Performed By: #### TSH, T7, CMP, BNP ####[facility] Ct[address] [place], [place] [address]Dr. Elver BccoqB7P39.0 %Ivtwzw06.0-40.0The [facility] HospitalComment on above: Performed By: #### TSH, T7, CMP, BNP ####[facility] E[address]le[address] [place], [place] [address]Dr. Mariannelan ChangT4 [Mass/Vol]6.30 ug/dLNormal 4.50-12.10The [facility] HospitalComment on above:Performed By: #### TSH, T7, CMP, BNP ####[facility] Blsjtnxlnq[address] [place], [place] [address]Dr. Yilan ChangPROF 14(COMP METB)on 13-57-5386Bekvwbp [Mass/Vol]3.8 g/dLNormal 3.4-5.0The [facility] HospitalComment on above:Performed By: #### TSH, T7, CMP, BNP ####[facility] Eznknuqvuj[address] [place], [place] [address]Dr. Yilan ChangAlbumin/Globulin [Mass ratio]1.1 {ratio}NormalThe [facility] Comment on above:Performed By: #### TSH, T7, CMP, BNP ####[facility] E[address]tnc[address] [place], [place] [address]Dr. Yilan ChangALP [Catalytic activity/Vol]74 U/RQfugkp60-903Dgm [facility] HospitalComment on above:Performed By: #### TSH, T7, CMP, BNP ####[facility] Yhwxzmoifp[address] [place], [place] [address]Dr. Yilan ChangALT [Catalytic activity/Vol]27 U/LNormal 16-63The [facility] HospitalComment on above:Performed By: #### TSH, T7, CMP, BNP ####[facility] Fxkvbgcgoc[address] [place], [place] [address]Dr. Yilan ChangAnion gap [Moles/Vol]10.8 mmol/LNormalThe [facility] Parma Medical Centerment on above:Performed By: #### TSH, T7, CMP, BNP ####[facility] Mxkmpzkzcw[address] [place], [place] [address]Dr. Yilan ChangAST [Catalytic activity/Vol] 30 U/QKmpppq31-03Ycn [facility] HospitalComment on above:Performed By: #### TSH, T7, CMP, BNP ####[facility] Zrwzpvqrjo[address] [place], [place] [address]Dr. Yilan ChangBilirubin [Mass/Vol]0.7 mg/dLNormal0.2-1.0The [facility] HospitalComment on above:Performed By: #### TSH, T7, CMP, BNP ####[facility] Znrgsgcvjs[address] [place], [place] [address]Dr. Yilan Gibson Calcium [Mass/Vol]9.3 mg/dLNormal8.5-10.1The [facility] HospitalComment on above: Performed By: #### TSH, T7, CMP, BNP ####[facility] [address] [place] [address]Dr. Yilan ChangChloride [Moles/Vol]104 mmol/L Yxvznq27-671Xsc [facility] on above:Performed By: #### TSH, T7, CMP, BNP ####[facility] Hcfgjpkssw[address] [place], [place] [address]Dr. Yilan ChangCO2 [Moles/Vol]31.9 mmol/RKpunwh93.0-32.0The [facility] HospitalComhenry [facility] on above:Performed By: #### TSH, T7, CMP, BNP ####[facility] Mrxeonnghu[address] [place], [place] [address]Dr. Yilan Gibson Creatinine [Mass/Vol]1.19 mg/dLNormal0.70-1.30The [facility] on above:Performed By: #### TSH, T7, CMP, BNP ####[facility] Oxfpsxsvia[address] [place], [place] [address]Dr. Yilan ChangEGFR-AF WALLISIAN>60Normal>=60 The [facility] on above:Performed By: #### TSH, T7, CMP, BNP ####[facility] [address] [place] [address]Dr. Yilan ChangEGFR-NON AF QTTBAVZE06 mL/min/1.20n4Peydfwqwum low>=60The [facility] on above:Performed By: #### TSH, T7, CMP, BNP ####[facility] Zfwserzebp[address] [place], [place] [address]Dr. Yilan Gibson Globulin (S) [Mass/Vol]3.5 g/dLNormalThe [facility] HospitalComhenry [facility] on above: Performed By: #### TSH, T7, CMP, BNP ####[facility] [address] [place] [address]Dr. Yilan ChangGlucose [Mass/Vol]124 mg/dL Critically ehfy03-481Jqz [facility] on above:Performed By: #### TSH, T7, CMP, BNP ####[facility] [address] [place] [address]Dr. Yilan ChangPotassium [Moles/Vol]4.7 mmol/LNormal3.5-5.1The [facility] HospitalComment on above:Performed By: #### TSH, T7, CMP, BNP ####[facility] [address]uf[address] [place] [address]Dr. Yilan ChangProtein [Mass/Vol]7.3 g/dLNormal6.4-8.2The [facility] HospitalComment on above:Performed By: #### TSH, T7, CMP, BNP ####[facility] [address]gs[address]ig[address] [place] [address]Dr. Yilan ChangSodium [Moles/Vol]142 mmol/WEnoblq544-215Mom [facility] HospitalComment on above: Performed By: #### TSH, T7, CMP, BNP ####[facility] Ivdl[address]dxhp[address] [place], [place] [address]Dr. Yilan ChangUrea nitrogen [Mass/Vol]27.0 mg/dL Critically high7.0-18.0The [facility] HospitalComment on above:Performed By: #### TSH, T7, CMP, BNP ####[facility] Xlnwsbz[address] [place], [place] [address]Dr. Yilan ChangUrea nitrogen/Creatinine [Mass ratio]22.7 mg/mgNormal The [facility] HospitalComment on above:Performed By: #### TSH, T7, CMP, BNP ####[facility] Svzqktmvbq[address] [place], [place] [address]Dr. Yilan ChangTSHon 02-14-8244XYQ9.455 uIU/mLNormal0.358-3.740The [facility] Comment on above:Performed By: #### TSH, T7, CMP, BNP ####[facility] Aylxquyhlp[address] [place], [place] [address]Dr. Yilan ChangXR CHEST 2 Von 40-17-6647YF CHEST 2 VEXAMINATION: XR CHEST 2 V, 09/09/2022 12:11 PM EDT HISTORY: Dyspnea COMPARISON: None. TECHNIQUE: Chest x-ray: Two views. FINDINGS: No focal consolidations or pleural effusions. Cardiomediastinal silhouette is unremarkable. Calcified mediastinal lymph nodes. Severe degenerative changes of the glenohumeral joints bilaterally. Thoracic spine spondylosis. IMPRESSION: No acute disease. Electronically authenticated by: VAN KELSEALAURA Date: 2022-09-09 12:48NormalThe [facility] HospitalINSULINon 45-91-8071Ybuysat57.3 uIU/mLNormal2.6-24.9The [facility] HospitalComment on above:Performed By: #### INSULIN #### [facility] [address] [place] [address] Dr. Elver Perkins4, T3U, FTI LABCORPon 79-77-2776Bctx Thyroxine Index2.1Normal 1.2-4.9The [facility] HospitalComment on above:Performed By: #### THYLC #### [facility] [address] [place] [address] Dr. Elver GibsonT3 Uwwblm81 %Pjemkw33-22Jlt [facility] HospitalComment on above: Performed By: #### THYLC #### [facility] [address] [place] [address] Dr. Elver Harding [Mass/Vol]7.0 ug/dLNormal4.5-12.0The [facility] HospitalComment on above:Performed By: #### THYLC #### [facility] [address] [place] [address] Dr. Elver Sears 64-51-4702Rmgwavshgnl peptide B (Bld) [Mass/Vol]229.0 pg/mL Normal<=1,800.0The [facility] HospitalComment on above:Performed By: #### BNP, CMP, LIPID, TSH, URIC #### [facility] [address] [place] [address] Dr. Elver Rock AUTO DIFFon 04-27-8052ITNX #0.0 103/ulNormal0.0-0.1The [facility] HospitalComment on above:Performed By: #### CBC ####[facility] [address] [place] [address]lan ChangBasophils/100 WBC (Bld)0.7 %Normal0.2-2.0The [facility] HospitalComment on above:Performed By: #### CBC ####[facility] Oaogtcqanj[address] [place], [place] [address]Dr.Mariannelan ChangEO #0.2 103/ulNormal0.0-0.7The [facility] HospitalComment on above:Performed By: #### CBC ####[facility] Talenqcqxv[address] [place], [place] [address]Dr.Elver ChangEosinophils/100 WBC (Bld)3.9 %Normal 0.9-7.0The [facility] HospitalComment on above:Performed By: #### CBC ####[facility] Efsrbahfea[address] [place], [place] [address]Dr.Elver Gibson Erythrocyte distribution width (RBC) [Ratio]13.2 %Frnoka06.0-15.0The [facility] HospitalComment on above:Performed By: #### CBC ####[facility] Wodtuouyrg[address] [place], [place] [address]Dr.Marianneyemi ChangHematocrit (Bld) [Volume fraction]42.9 %Kqkljn94.0-54.0The [facility] HospitalComment on above:Performed By: #### CBC ####[facility] Wotmqubwie[address] [place], [place] [address]Dr.Elver ChangHemoglobin (Bld) [Mass/Vol]14.2 g/dL Voozgi49.0-18.0The [facility] HospitalComment on above:Performed By: #### CBC ####[facility] Pbqhfexqqg[address] [place], [place] [address]Dr. Mariannelan ChangIG #0.01 10e3/ulNormal0.00-0.03The [facility] HospitalComment on above: Performed By: #### CBC ####[facility] Whwfdijxan9[address] [place], [place] [address]Dr.Elver ChangIG %0.2 %Normal0.0-0.5The [facility] HospitalComment on above:Performed By: #### CBC ####[facility] [address]spqqgw[address] [place] [address]Dr.Elver GibsonLYMPH #1.4 103/ulNormal1.2-3.8The [facility] HospitalComment on above:Performed By: #### CBC ####[facility] Olobvbrxep[address] [place] [address]Dr. Elver GibsonLymphocytes/100 WBC (Bld)24.0 %Trnaeh80.5-60.0The [facility] Comment on above:Performed By: #### CBC ####[facility] [address]fbukskyum[address] [place] [address]Dr.Elver GibsonMANUAL DIFF REQNONormalThe [facility] HospitalComment on above:Performed By: #### CBC ####[facility] Hcacvcygfk[address] [place], [place] [address]Dr.Elver GibsonMCH (RBC) [Entitic mass]33.3 ccAetzmu46.9-34.0The [facility] HospitalComment on above: Performed By: #### CBC ####[facility] Abxnqkzulc[address] [place], [place] [address]Dr.Elver GibsonMCHC (RBC) [Mass/Vol]33.1 g/dLNormal 29.9-35.2The [facility] HospitalComment on above:Performed By: #### CBC ####[facility] Dhzyrjsowt[address] [place], [place] [address]Dr. Elver GibsonMCV (RBC) [Entitic vol]100.7 fLCritically high80.0-94.0The [facility] HospitalComment on above:Performed By: #### CBC ####[facility] [address]tyhqxzcmc26[address] [place] [address]Dr.Elver GibsonMONO #0.7 103/ulNormal0.3-0.8The [facility] HospitalComment on above:Performed By: #### CBC ####[facility] Scwvmoswdo[address] [place], [place] [address]Dr. Elver ChangMonocytes/100 WBC (Bld)12.7 %Critically high1.7-12.0The [facility] HospitalComment on above:Performed By: #### CBC ####[facility] [address]hh[address] [place] [address]Dr.Elver RinconUT #3.3 103/ulNormal1.4-6.5The [facility] HospitalComment on above:Performed By: #### CBC ####[facility] Fcufwjhcjs[address] [place] [address]Dr. Elver GibsonNeutrophils/100 WBC (Bld)58.5 %Bdoxic68.0-75.0[facility] Comment on above:Performed By: #### CBC ####[facility] Negypacrot[address] [place] [address]Dr.Elver GibsonPlatelet mean volume (Bld) [Entitic vol]9.6 fLNormal9.5-13.5The [facility] HospitalComment on above:Performed By: #### CBC ####[facility] [address]wntrpcz[address] [place] [address]Dr.Elver NyzycZDJ202 103/trIdtrey802-333Ovv [facility] HospitalComment on above:Performed By: #### CBC ####[facility] [address]ql[address]wqphqr[address] [place] [address]Dr.Elver GibsonRBC4.26 106/ulCritically low4.70-6.10The [facility] HospitalComment on above:Performed By: #### CBC ####[facility] [address]vtsurtn[address] [place] [address]Dr.Elver GibsonWBC5.7 103/ul Normal4.0-11.0[facility] HospitalComment on above:Performed By: #### CBC ####[facility] [address] [place] [address]Dr. Elver GibsonGLYCOHEMOGLOBIN A1Con 92-56-3291TZV RECOMMENDATIONSEE [facility] HospitalComment on above:Result Comment: ADA RECOMMENDED LIMIT 4.0 - 6.0 ADA THERAPEUTIC TARGET < 7.0 ACTION SUGGESTED > 7.0Performed By: #### A1C #### [facility] [address] [place] [address] [address] Elver GibsonGlucose [Mass/Vol]108 mg/dLSt. Charles HospitalComment on above:Performed By: #### A1C #### [facility] [address] [place] [address] Dr. Elver GibsonHbA1c (Bld) [Mass fraction]5.4 %Normal4.5-6.2[facility] HospitalComment on above:Performed By: #### A1C #### [facility] [address] [place] [address] Dr. Elver GibsonLIPID PROFILEon 15-78-8878VTWJ-HDL RATIO NORMSEE [facility] HospitalComment on above:Result Comment: 3.3 - 4.4 LOW RISK 4.4 - 7.1 AVERAGE RISK 7.1 - 11.0 MODERATE RISK >11.0 HIGH RISKPerformed By: #### BNP, CMP, LIPID, TSH, URIC #### [facility] [address] [place] [address] Dr. Elver Jallohesterol [Mass/Vol]174 mg/dLNormal<=200The [facility] Comment on above:Performed By: #### BNP, CMP, LIPID, TSH, URIC #### [facility] [address] [place] [address] Dr. Elver Jallohesterol in HDL [Mass/Vol]63 mg/dLCritically qyhz66-27Bkk [facility] HospitalComment on above:Performed By: #### BNP, CMP, LIPID, TSH, URIC #### [facility] [address] [place] [address] Dr. Elver Jallohesterol in LDL [Mass/Vol]100.4 mg/dLSt. Charles HospitalComment on above:Performed By: #### BNP, CMP, LIPID, TSH, URIC #### [facility] [address] [place] [address] Dr. Elver Simon.total/Cholesterol in HDL [Mass ratio]2.8 {ratio} NormalDunlap Memorial HospitalComment on above:Performed By: #### BNP, CMP, LIPID, TSH, URIC #### [facility] [address] [address] [address] Elver Rojas NORMAL> or = 60 mg/dl - LOW CARDIOVASCULAR RISK <40 mg/dl - HIGH CARDIOVASCULAR RISKSt. Charles HospitalComment on above:Performed By: #### BNP, CMP, LIPID, TSH, URIC #### [facility] [address] [address] [address] Elver GibsonLDL CALC NORMALSEE BELOWSt. Charles HospitalComment on above:Result Comment: <100 mg/dl OPTIMAL 100 - 129 mg/dl NEAR OR ABOVE OPTIMAL 130 - 159 mg/dl BORDERLINE HIGH 160 - 189 mg/dl HIGH >190 mg/dl VERY HIGH Performed By: #### BNP, CMP, LIPID, TSH, URIC #### [facility] [address] [address] [address] Elver GibsonTriglyceride [Mass/Vol]53 mg/dLNormal<=150The [facility] Comment on above:Performed By: #### BNP, CMP, LIPID, TSH, URIC #### [facility] [address] [place] [address] Dr. Elver GibsonVLDL CALC10.6 mg/dLNoUniversity Hospitals TriPoint Medical CenterComment on above: Performed By: #### BNP, CMP, LIPID, TSH, URIC #### [facility] [address] [place] [address] Dr. Elver GibsonPROF 14(COMP METB)on 84-50-6873Txinzvm [Mass/Vol]3.7 g/dLNormal 3.4-5.0The [facility] HospitalComment on above:Performed By: #### BNP, CMP, LIPID, TSH, URIC #### [facility] [address] [address] [address] Elver GibsonAlbumin/Globulin [Mass ratio]1.1 {ratio}NormalThe [facility] on above:Performed By: #### BNP, CMP, LIPID, TSH, URIC #### [facility] [address] [place] [address] Dr. Elver Schumacher [Catalytic activity/Vol]64 U/ZUjbgoq60-291Ywd [facility] HospitalComment on above:Performed By: #### BNP, CMP, LIPID, TSH, URIC #### [facility] [address] [address] [address] Elver Camacho [Catalytic activity/Vol]27 U/HPcmimq24-93Mug [facility] HospitalComment on above:Performed By: #### BNP, CMP, LIPID, TSH, URIC #### [facility] [address] [place] [address] Dr. Elver Clifford gap [Moles/Vol]9.7 mmol/LNormalThe [facility] HospitalComment on above:Performed By: #### BNP, CMP, LIPID, TSH, URIC #### [facility] [address] [place] [address] Dr. Elver Leon [Catalytic activity/Vol]30 U/NCttgis72-46Jhs [facility] HospitalComment on above:Performed By: #### BNP, CMP, LIPID, TSH, URIC #### [facility] [address] [place] [address] Dr. Elver GibsonBilirubin [Mass/Vol]0.7 mg/dLNormal0.2-1.0[facility] Comment on above:Performed By: #### BNP, CMP, LIPID, TSH, URIC #### [facility] [address] [place] [address] Dr. Elver GibsonCalcium [Mass/Vol]8.9 mg/dLNormal8.5-10.1[facility] Comment on above:Performed By: #### BNP, CMP, LIPID, TSH, URIC #### [facility] [address] [place] [address] Dr. Elver GibsonChloride [Moles/Vol]104 mmol/RPuqqek33-523Arn [facility] Comment on above:Performed By: #### BNP, CMP, LIPID, TSH, URIC #### [facility] [address] [place] [address] Dr. Elver GibsonCO2 [Moles/Vol]31.8 mmol/IAsywur94.0-32.0The [facility] Comment on above:Performed By: #### BNP, CMP, LIPID, TSH, URIC #### [facility] [address] [address] [address] Elver GibsonCreatinine [Mass/Vol]1.19 mg/dLNormal0.70-1.30The [facility] HospitalComment on above:Performed By: #### BNP, CMP, LIPID, TSH, URIC #### [facility] [address] [place] [address] Dr. Elver GuilloryGFR-AF WALLISIAN>60Normal>=60The [facility] HospitalComment on above:Performed By: #### BNP, CMP, LIPID, TSH, URIC #### [facility] [address] [place] [address] Dr. Elver GuilloryGFR-NON AF UGHFPYAW15 mL/min/1.84o6Kjufpjdryz low>=60The [facility] HospitalComment on above:Performed By: #### BNP, CMP, LIPID, TSH, URIC #### [facility] [address] [place] [address] Dr. Elver GibsonGlobulin (S) [Mass/Vol]3.4 g/dLNormalThe [facility] HospitalComment on above:Performed By: #### BNP, CMP, LIPID, TSH, URIC #### [facility] [address] [place] [address] Dr. Elver GibsonGlucose [Mass/Vol]97 mg/xXEjjivl65-826SyaDunlap Memorial Hospital Comment on above:Performed By: #### BNP, CMP, LIPID, TSH, URIC #### [facility] [address] [place] [address] Dr. Elver GibsonPotassium [Moles/Vol]4.5 mmol/LNormal3.5-5.1[facility] Comment on above:Performed By: #### BNP, CMP, LIPID, TSH, URIC #### [facility] [address] [place] [address] Dr. Elver GibsonProtein [Mass/Vol]7.1 g/dLNormal6.4-8.2[facility] Comment on above:Performed By: #### BNP, CMP, LIPID, TSH, URIC #### [facility] [address] [address] [address] Elver Carrascodium [Moles/Vol]141 mmol/PMbdrlz273-398Qhm [facility] Comment on above:Performed By: #### BNP, CMP, LIPID, TSH, URIC #### [facility] [address] [address] [address] Elver Hobson nitrogen [Mass/Vol]31.0 mg/dLCritically high7.0-18.0The [facility] HospitalComment on above:Performed By: #### BNP, CMP, LIPID, TSH, URIC #### [facility] [address] [address] [address] Elver Hobson nitrogen/Creatinine [Mass ratio]26.1 mg/mgNormalThe [facility] HospitalComment on above:Performed By: #### BNP, CMP, LIPID, TSH, URIC #### [facility] [address] [place] [address] Dr. Elver Villagomez 44-92-2532OJH5.829 uIU/mLNormal0.358-3.740The [facility] HospitalComment on above:Performed By: #### BNP, CMP, LIPID, TSH, URIC #### [facility] [address] [place] [address] Dr. Elver GibsonURIC ACID SERUMon [id number] [Mass/Vol]7.1 mg/dLNormal 3.5-7.2The [facility] HospitalComment on above:Performed By: #### BNP, CMP, LIPID, TSH, URIC #### [facility] [address] [place] [address] Dr. Elver Clark Panel InformationSt. [facility] Vital Signs Date TimeVital SignValuePerforming SyjmgetnjQwfalltc41-60-0973 12:46-0400Body .6 Gabrielle Mendoza MD Work Phone: [facility]06-30-2025 12:46-0400Body mass index (BMI) [Ratio]25.91 kg/j5FpzqvlKendra Mendoza MD Work Phone: [facility]06-30-2025 12:46-0400Body wpghho14.8 kgKendra Mendoza MD Work Phone: [facility]06-30-2025 12:46-0400Diastolic blood mm[Hg]Kendra Mendoza MD Work Phone: [facility]06-30-2025 12:46-0400Heart rate57 /min Kendra Mendoza MD Work Phone: [phone]06-30-2025 12:46-1189EbR8% (BldA) [Mass fraction]98 %Kendra Mendoza MD Work Phone: [facility] HospitalComment on above:[id number] 12:46-0400Systolic blood zeyqibdh833 mm[Hg]Kendra Mendoza MD Work Phone: [phone]04-28-2025 12:30-0400Body .1 cmTomy Hutton MD Work Phone: [phone]04-28-2025 12:30-0400Body mass index (BMI) [Ratio]27.09 kg/r1DbfsqduTomy Hutton MD Work Phone: [phone]04-28-2025 12:30-0400Body kjovaj07.85 kgTomy Hutton MD Work Phone: [phone]04-28-2025 12:30-0400Diastolic blood cdymrkhy47 mm[Hg]Tomy Hutton MD Work Phone: [facility]04-28-2025 12:30-0400Heart rate59 /min Tomy Hutton MD Work Phone: [place] [address]-28-2025 12:30-0304WoO5% (BldA) [Mass fraction]97 %Tomy Hutton MD Work Phone: [phone][facility] HospitalComment on above:[id number] 12:30-0400Systolic blood aexxfpdf822 mm[Hg]Tomy Hutton MD Work Phone: [facility]04-15-2025 14:36-0400Body smxpyr340.1 Heidi Valles MD Work Phone: c[facility] HospitalYnmyrq02-42-4923 14:36-0400Body mass index (BMI) [Ratio]26.46 kg/w5DieivgvzAriana Valles MD Work Phone: c[facility] HospitalNasflz49-75-8226 14:36-0400Body unxtma80.12 kgAriana Valles MD Work Phone: c[facility] HospitalWltizk76-57-0884 14:36-0400Diastolic blood viwmnpnf03 mm[Hg]Ariana Valles MD Work Phone: c[facility] HospitalWcnqju14-64-3690 14:36-0400Heart rate94 /min Ariana Valles MD Work Phone: c[facility] HospitalAwzzji95-06-9296 14:36-0400Systolic blood xtglrcna640 mm[Hg]Ariana Valles MD Work Phone: c[facility] HospitalVgvnlj57-36-1883 10:56-0500Blood Pressure LocationKMARC LOOMIS-BOO [facility]01-30-2025 10:56-0500Diastolic blood dvfbejio76 mm[Hg]MIKE LOOMIS-AMKOFI [facility]01-30-2025 10:56-0500Heart rate59 /minMIKE LOOMIS-AMANK [facility]01-30-2025 10:56-0500Systolic blood gvlucgml125 mm[Hg]MIKE LOOMIS-AMANK [facility]01-09-2025 10:40-0500Heart rate80 /minKWABENA NKANSAH-AMANKRA [facility]01-09-2025 10:40-6365CzG9% (BldA) [Mass fraction]95 %MIEK NKANSAH-AMANKRA [facility]01-09-2025 10:40-0500 Diastolic blood qldpywcw52 mm[Hg]MIKE NKANSAH-AMANKRA [address] [place], [place] [address]01-09-2025 10:40-0500Mean blood gwqhdpul428 mm[Hg]MIKE NKANSAH-AMANKRA [address] [place], [place] [address]01-09-2025 10:40-0500 Systolic blood xrmqmdes527 mm[Hg]MIKE NKANSAH-AMANKRA [address] [place], [place] [address]01-09-2025 09:15-0500 Diastolic blood vrtlztke12 mm[Hg]MIKE NKANSAH-AMANKRA [address] [place], [place] [address]01-09-2025 09:15-0500Heart rate69 /minKWABENA NKANSAH-AMANKRA [facility]01-09-2025 09:15-0500Mean blood xyllbekn259 mm[Hg]MIKE NKANSAH-AMANKRA [address] [place], [place] [address]01-09-2025 09:15-0500 Respiratory rate16 /minKWABENA NKANSAH-AMANKRA [facility]01-09-2025 09:15-6278IxM5% (BldA) [Mass fraction]94 %MIKE NKANSAH-AMANKRA [address] [place], [place] [address]01-09-2025 09:15-0500 Systolic blood sazgdrlf222 mm[Hg]MIKE NKANSAH-AMANKRA [facility]01-09-2025 09:10-0500Blood Pressure LocationKMARC SINGLETONANSAH-AMANKRA [facility]01-09-2025 09:10-0500Body sbopvahcrft75.88 [degF]MIKE ARELIANSAH-AMANKRA [address] [place], [place] [address]01-09-2025 09:10-0500 Diastolic blood soegumdi77 mm[Hg]MIKE SINGLETONANSAH-AMANKRA [address] [place], [place] [address]01-09-2025 09:10-0500Heart rate68 /minMIKE SINGLETONANSAH-AMANKRA [address] [place], [place] [address]01-09-2025 09:10-0500Mean blood ahhbqrwc149 mm[Hg]MIKE SINGLETONANSAH-AMANKRA [facility]01-09-2025 09:10-0500 Respiratory rate17 /Marely SINGLETONANSAH-AMANKRA [address] [place], [place] 9825501-09-2025 09:10-2818NsB3% (BldA) [Mass fraction]94 %MIKE ARELIANSAH-AMANKRA [facility]01-09-2025 09:10-0500 Systolic blood lpsmgyti721 mm[Hg]MIKE ARELIANSAH-AMANKRA [facility]01-09-2025 09:00-0500Mean blood mm[Hg]MIKE NKANSAH-AMANKRA [address] [place], [place] [address]01-09-2025 08:55-0500Blood Pressure LocationKMARC SINGLETONANSAH-AMANKRA [address] [place], [place] [address]01-09-2025 08:55-0500 Respiratory rate17 /minKWABENA NKANSAH-AMANKRA [address] [place], [place] [address]01-09-2025 08:44-0500Body migrbtjsrxg89.7 [degF]MIKE NKANSAH-AMANKRA [address] [place], [place] 43[address]01-09-2025 08:40-0500 Respiratory rate12 /minKWABENA NKANSAH-AMANKRA [address] [place], [place] [address]01-09-2025 08:35-0500 Respiratory rate11 /minKWABENA NKANSAH-AMANKRA [address] [place], [place] 4320601-09-2025 07:10-0500Heart rate82 /minKWABENA NKANSAH-AMANKRA [address] [place], [place] 4320601-09-2025 07:06-0500Body yhpfkzzhgpb73.88 [degF]MIKE NKANSAH-AMANKRA [address] [place], [place] 4320601-09-2025 07:06-0500Mean blood lfuecbua324 mm[Hg]MIKE NKANSAH-AMANKRA [address] [place], [place] 4320601-02-2025 12:19-0500 Diastolic blood xsfykcyg14 mm[Hg]MIKE NKANSAH-AMANKRA [address] [place], [place] [id number] 12:19-0500Heart rate63 /minKWABENA NKANSAH-AMANKRA [address] [place], [place] [id number] 12:19-0500Mean blood vxqrphne11 mm[Hg]MIKE NKANSAH-AMANKRA [address] [place], [place] [address]20601-02-2025 12:19-0500 Systolic blood umkpibyr348 mm[Hg]MIKE NKANSAH-AMANKRA [facility]01-02-2025 12:18-0500Heart rate60 /minKAGNIESZKANA ARELIANSAH-AMANKRA [facility]01-02-2025 12:18-5224TdY3% (BldA) [Mass fraction]95 %MIKE NKANSAH-AMANKRA [facility]01-02-2025 12:18-0500 Diastolic blood kjeioqln19 mm[Hg]MIKE NKANSAH-AMANKRA [facility]01-02-2025 12:18-0500Mean blood stddtlme61 mm[Hg]MIKE NKANSAH-AMANKRA [facility]01-02-2025 12:18-0500 Systolic blood fdystfvl877 mm[Hg]MIKE NKANSAH-AMANKRA [facility]01-02-2025 12:17-0500Body hsoxunxjowd17.24 [degF]MIKE NKANSAH-AMANKRA [facility]01-02-2025 10:11-0500Blood Pressure LocationKMARC NKANSAH-AMANKRA [facility]01-02-2025 10:11-0500Diastolic blood kmyidtuo28 mm[Hg]MIKE NKANSAH-AMANKRA [facility]01-02-2025 10:11-0500Heart rate62 /minKMARC SINGLETONANSAH-AMANKRA [facility]01-02-2025 10:11-0500Systolic blood kuhzhrld419 mm[Hg]MIKE NKANSAH-AMANKRA [facility] [place] 621422-17-2024 11:23-0500Body kgodth741.1 Gabrielle Mendoza MD Work Phone: [facility]12-17-2024 11:23-0500Body mass index (BMI) [Ratio]25.79 kg/m7ZveinxKendra Mendoza MD Work Phone: [phone]12-17-2024 11:23-0500Body .31 kgKendra Mendoza MD Work Phone: [facility]12-17-2024 11:23-0500Diastolic blood jhrunynw85 mm[Hg]Kendra Mendoza MD Work Phone: [facility]12-17-2024 11:23-0500Heart rate60 /min Kendra Mendoza MD Work Phone: [phone]12-17-2024 11:23-0500Respiratory rate 15 /minEleora Mendoza MD Work Phone: [facility]12-17-2024 11:23-0891PtZ3% (BldA) [Mass fraction]94 %Kendra Mendoza MD Work Phone: [facility]12-17-2024 11:23-0500Systolic blood mm[Hg]Kendra Mendoza MD Work Phone: [phone]11-29-2024 16:26-0500Body .1 cmRd Qureshi MD Work Phone: [place] [address]-29-2024 16:26-0500Body mass index (BMI) [Ratio]25.79 kg/o4IadvurRd Qureshi MD Work Phone: [facility]11-29-2024 16:26-0500Body .31 kgRd Qureshi MD Work Phone: [place] [address]-29-2024 16:26-0500Diastolic blood kugfogmv68 mm[Hg]Rd Qureshi MD Work Phone: [facility]11-29-2024 16:26-0500Heart rate55 /min Rd Qureshi MD Work Phone: [facility]11-29-2024 16:26-0500Systolic blood mm[Hg]Rd Qureshi MD Work Phone: [facility]10-11-2024 10:15-0400Body fkrcjo390.1 cmRebecca Reay CRAPS DEALER.GERIATRIC NURSE ASSISTANT Work Phone: [phone]10-11-2024 10:15-0400Body mass index (BMI) [Ratio]26.01 kg/i6Onidrvb Reay CRAPS DEALER.GERIATRIC NURSE ASSISTANT Work Phone: [phone]10-11-2024 10:15-0400Body awlgbp13.9 kgRebecca Reay CRAPS DEALER.GERIATRIC NURSE ASSISTANT Work Phone: [phone]10-11-2024 10:15-0400Diastolic blood mbyttosz43 mm[Hg]Compa Reay CRAPS DEALER.GERIATRIC NURSE ASSISTANT Work Phone: [phone]10-11-2024 10:15-0400Heart rate69 /min Compa Reay CRAPS DEALER.GERIATRIC NURSE ASSISTANT Work Phone: [phone]10-11-2024 10:15-9923YcK9% (BldA) [Mass fraction]97 %Compa Reay CRAPS DEALER.GERIATRIC NURSE ASSISTANT Work Phone: [phone]10-11-2024 10:15-0400Systolic blood sbaivqab416 mm[Hg]Compa Reay CRAPS DEALER.GERIATRIC NURSE ASSISTANT Work Phone: [facility]09-03-2024 14:40-0400Diastolic blood xbguqwmq92 mm[Hg]Transesophageal [facility]09-03-2024 14:40-0400Heart rate79 /minTransesophageal [facility]09-03-2024 14:40-0400Respiratory rate16 /minTransesophageal [facility]09-03-2024 14:40-5948RnA2% (BldA) [Mass fraction]91 %Transesophageal [facility]09-03-2024 14:40-0400 Systolic blood cwzcaukt016 mm[Hg]Transesophageal [facility]09-03-2024 12:24-0400Body ifbiakxgnmf66.7 [degF][facility] Institute[facility] 02-04-2024 16:16-0400Body xocqwj716.1 Gabrielle Mendoza MD Work Phone: [facility]08-29-2024 16:16-0400Body mass index (BMI) [Ratio]26.38 kg/g2PeatxaKendra Mendoza MD Work Phone: [facility]08-29-2024 16:16-0400Body yfxhdp11.89 kgKendra Mendoza MD Work Phone: [facility]08-29-2024 16:16-0400Diastolic blood vrmfsyxl22 mm[Hg]Kendra Mendoza MD Work Phone: [facility]08-29-2024 16:16-0400Heart rate88 /min Kendra Mendoza MD Work Phone: [facility]08-29-2024 16:16-6091BvW6% (BldA) [Mass fraction]96 %Kendra Mendoza MD Work Phone: [facility]08-29-2024 16:16-0400Systolic blood ntzidlcq578 mm[Hg]Kendra Mendoza MD Work Phone: [facility]07-19-2024 10:57-0400Body .1 cmAvelina Chowdhury MD Work Phone: [facility]07-19-2024 10:57-0400 Body mass index (BMI) [Ratio]27.79 kg/o8LzulzhAvelina Chowdhury MD Work Phone: [facility]07-19-2024 10:57-0400 Body ahrbdd73.75 kgAvelina Chowdhury MD Work Phone: [facility]07-19-2024 10:57-0400 Diastolic blood qgdkapwm87 mm[Hg]Avelina Chowdhury MD Work Phone: [facility]07-19-2024 10:57-0400 Heart spim728 /minAvelina Chowdhury MD Work Phone: [facility]07-19-2024 10:57-0400 Systolic blood emuighgn207 mm[Hg]Avelina Chowdhury MD Work Phone: [facility]08-23-2023 13:33-0400 Body .64 cmDougusha Ziegler Hoy Work Phone: [phone]-Daaeu [facility] [address] DO Work Phone: [phone] 13:33-0400Body mass index (BMI) [Ratio] 27.92 kg/w0Quvlgeb M Hoy Work Phone: [phone]-Wbvkf [facility] 250 DO Work Phone: [phone] 13:33-0400Body surface area Derived from formula1.88 r6Dibilvk M Hoy Work Phone: [phone]-Cogax [facility] 250 DO Work Phone: [phone] 13:33-0400Body ehfyck15.47 kgDougusha Ziegler Hoy Work Phone: [phone]-Kednr [facility] DO Work Phone: [phone] 13:33-0400Diastolic blood rmktwruv49 mm[Hg] Samantha Toney Hoy Work Phone: [phone]-Rrsii [facility] [address] DO Work Phone: 1(321)[phone] 13:33-0400Diastolic blood wftswzud79 mm[Hg] Samantha Toney Hoy Work Phone: [phone]-Pzymm [facility] 250 DO Work Phone: 1(813)[phone] 13:33-0400Diastolic blood lczygbjs42 mm[Hg] Samantha M Hoy Work Phone: [phone]-Qmuys [facility] DO Work Phone: 1(339)[phone] 13:33-0400Heart rate84 /minDouglas M Hoy Work Phone: [phone])[phone]-Uzsbk [facility] 250 DO Work Phone: 1([phone] 13:33-0400Systolic blood ictfczxv696 mm[Hg] Samantha M Hoy Work Phone: [phone]-Diokj [facility] [address] DO Work Phone: 1(173)[phone] 13:33-0400Systolic blood sfkfygrj972 mm[Hg] Samantha M Hoy Work Phone: 1([phone]-Pierb [facility] 250 DO Work Phone: 1(444)[phone] 13:33-0400Systolic blood mm[Hg] Samantha M Hoy Work Phone: [phone]-Rcbok [facility] 250 DO Work Phone: 1(202)[phone] 13:33-141869 1Douglas M Hoy Work Phone: 1(137)[phone]-Nmphp [facility] 250 DO Work Phone: Comment on above:[id number] 13:33-759581 1 Samantha M Hoy Work Phone: 1([phone]-Kkmcb [facility] DO Work Phone: Comment on above:[id number] 13:33-871559 1 Samantha M Hoy Work Phone: [phone]-Dddjf [facility] [place] 250 DO Work Phone: Comment on above:[id number] 13:28-0400Body rdodiq925.64 cmDouglas M Hoy Work Phone: [phone]-Ujfid [facility] 250 DO Work Phone: 1(939) 161-405308-23-2023 13:28-0400Body mass index (BMI) [Ratio] 27.92 kg/g5Mhpzfig M Hoy Work Phone: [phone]-Wwhrc [facility] [address] DO Work Phone: 1([phone] 13:28-0400Body surface area Derived from formula1.88 q8Yvphsvv M Hoy Work Phone: [phone]-Pvgbh [facility] 250 DO Work Phone: 1(219) [phone] 13:28-0400Body .47 kgDoandres Ziegler Hoy Work Phone: [phone]-Erhfd [facility] 250 DO Work Phone: 1(952) [phone] 13:28-0400Diastolic blood nkduvwcl09 mm[Hg] Samantha Toney Hoy Work Phone: [phone]-Emhdk [facility] 250 DO Work Phone: 1(399)[phone] 13:28-0400Heart rate91 /minDouglas Toney Hoy Work Phone: [phone]-Cgfvv [facility] 250 DO Work Phone: 1(952) [phone] 13:28-0400Systolic blood pajjljrd477 mm[Hg] Samantha M Hoy Work Phone: [phone]-Rhbtz [facility] DO Work Phone: 1(863) 617-448706-26-2023 13:03-0400Diastolic blood hgezzvum53 mm[Hg] Samantha M Hoy Work Phone: 1(399)[phone]-Befezojtju-[place] 250 DO Work Phone: 1(119) [phone] 13:03-0400Systolic blood zfemensd739 mm[Hg] Samantha M Hoy Work Phone: 1(337)[phone]-Vkskfhtgtu-[place] 250 DO Work Phone: 1(106) [phone] 12:48-0400Body yahdvn402.64 cmDouglas M Hoy Work Phone: 1(212)[phone]-Nfphjktqdh-[place] 250 DO Work Phone: 1(888) [phone] 12:48-0400Body mass index (BMI) [Ratio] 28.41 kg/m9Soctqrh M Hoy Work Phone: 1(443)[phone]-Obspmpxzhf-[place] 250 DO Work Phone: 1(337) [phone] 12:48-0400Body surface area Derived from formula1.89 p3Ygvviar M Hoy Work Phone: 1(606)[phone]-Hyuzymgivg-[place] 250 DO Work Phone: 1(184) 294-805806-26-2023 12:48-0400Body tagdyp80.83 kgDouglas M Hoy Work Phone: 1(357)[phone]-Ppxndynbjs-[place] 250 DO Work Phone: 1(344) 236-287006-26-2023 12:48-0400Diastolic blood wvhydlux98 mm[Hg] Samantha M Hoy Work Phone: 1(252)[phone]-Ibicjwertj-[place] 250 DO Work Phone: 1(112) [phone] 12:48-0400Heart rate76 /minDouglas M Hoy Work Phone: 1(772)[phone]-Dxzhdtzqrr-[place] 250 DO Work Phone: 1(825) 396-600506-26-2023 12:48-0400Systolic blood texcqbco55 mm[Hg] Samantha M Hoy Work Phone: 1(690)[phone]-Sqrhwjyprc-[place] 250 DO Work Phone: 1(215) [phone] 07:53-561754 1Douglas M Hoy Work Phone: 1(100)[phone]-Jeffy [facility] 250 DO Work Phone: Comment on above:[id number] 10:01-0400Body pistkk445.26 cmDouglas M Hoy Work Phone: 1([phone]-Bpthr [facility] 250 DO Work Phone: 1(820) 273-625205-19-2023 10:01-0400Body mass index (BMI) [Ratio] 26.58 kg/q5QhkdggrSamantha Maya Work Phone: 1([phone]-Ixilx [facility] 250 DO Work Phone: 1(740) 548-458505-19-2023 10:01-0400Body surface area Derived from formula1.98 y7JukpndcSamantha Maya Work Phone: [phone]-Tgijh [facility] 250 DO Work Phone: 1(138) [phone] 10:01-0400Body .65 kgDoandres Ziegler Hoy Work Phone: 1([phone]-Dicvq [facility] 250 DO Work Phone: 1(995) [phone] 10:01-0400Diastolic blood lwofgmkd75 mm[Hg] Samantha Maya Work Phone: [phone]-Ojknr [facility] 250 DO Work Phone: 1(439) 522-413405-19-2023 10:01-0400Heart rate84 /minDouglas Toney Hoy Work Phone: [phone]-Boprp [facility] 250 DO Work Phone: 1(857) 768-560805-19-2023 10:01-0400Systolic blood mm[Hg] Samantha Maya Work Phone: 1([phone]-Kxabv [facility] DO Work Phone: Encounters Encounter DateEncounter TypeCare ProviderFacilityStart: 54-07-6803shmemzsdhy Alysha J GaleaFacility:EU kStart: 01-02-2025 End: 11-97-7551paksuplqjbSGVLTPM NKANSAH-AMANKRAFacility:EU NorkStart: 01-02-2025 End: 93-10-2976Mcsaqdv encounter procedureMIKE SLADE [facility] Start: 12-14-2024 End: 36-04-2110Tibywasnp encounterAriana Valles MD Work Phone: cardiologyComment on above:Schedule Surgery (PVI ablation+ Watchman implant)Start: 12-05-2024 End: 36-75-3985Nadydsu encounter procedureKendra Mendoza MD Work Phone: CardiologyComment on above:Chronic diastolic heart failure (HCC) (Primary Dx); Non-rheumatic mitral regurgitation; Complex medical condition; Paroxysmal atrial fibrillation (HCC); Cardiomyopathy, nonischemic (HCC); History of partial colectomy; History of gastrointestinal bleeding; Carpal tunnel syndrome, unspecified laterality; Tachycardia induced cardiomyopathy (HCC); Essential hypertension, benign; Other hyperlipidemiaStart: 12-05-2024 End: 57-67-8442bhqwyssmykKORXZT M HSICHFacility:[facility]tart: 12-05-2024 End: 76-93-2260qurqprtsprTBZZUR M HSICHFacility:[facility]tart: 10-06-2024 End: 12-06-5843Flarjk Jose Porter MD Work Phone: Hematology/OncologyComment on above:Monoclonal gammopathy (Primary Dx)Start: 10-03-2024 End: 61-82-7737brrbbzzmkdYBNGM N VALENTFacility:[facility] Hospitaltart: 10-03-2024 End: 30-15-4810Hxglorq encounter Zachery Hutton MD Work Phone: CardiologyComment on above:Chronic diastolic heart failure (HCC) (Primary Dx); PAF (paroxysmal atrial fibrillation) (HCC); Non-rheumatic mitral regurgitationMonoclonal gammopathy (Primary Dx)Start: 10-03-2024 End: 15-87-3818mcsxlasmmwYWVZQ N VALENTFacility:[facility]tart: 68-88-4502wgcuuykehxOFDRJDBR KOCHARFacility:[facility]tart: 10-03-2024 End: 52-29-6887Lshuvgwovd hospital visit by physicianSpectct3 Work Phone: Molecular ImagingComment on above:Chronic diastolic heart failure (HCC) [I50.32]Start: 36-66-1311mksldijelhGIUYSPGZ KOCHAR [facility]art: 10-03-2024 End: 37-11-9853Oshvnqnbtz hospital visit by physicianNucinjMolecular Imaging Start: 09-26-2024 End: 88-56-4577Yfortx OnlyAriana Valles MD Work Phone: cardiologyComment on above:SOB (shortness of breath) (Primary Dx)Start: 09-20-2024 End: 10-23-6892mxtfrflrgtIGFASNUX KOCHARFacility:[facility]tart: 09-20-2024 End: 87-83-3386Oxpdpnh encounter procedureAriana Valles MD Work Phone: cardiologyComment on above:Atrial fibrillation, persistent (HCC) (Primary Dx); Chronic diastolic heart failure (HCC); Non-rheumatic mitral regurgitation; Heart failure with reduced ejection fraction (HCC); Carpal tunnel syndrome, bilateral; 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; Gastrointestinal hemorrhage, unspecified gastrointestinal hemorrhage typeStart: 09-20-2024 End: 83-07-5943ssltyyuaxnJUKFYGTU KOCHARFacility:[facility]tart: 07-07-2024 End: 98-91-1771xvyzjolkscLHDXWLHCierra SLADEFacility:EU [facility]art: 07-07-2024 End: 89-43-5122Feghdsa encounter procedureMIKE SLADE [facility] Start: 06-27-2024 End: 26-25-1340yoiyvzkleqBBKYCEZCierra SLADEFacility:EU [facility]Start: 06-27-2024 End: 58-78-4559Pktqdkz encounter procedureMIKE SLADE [facility] Start: 06-16-2024 End: 12-24-3257Mbelkdxsp to same day surgery metlakatlaMIKE SLADE [facility] Start: 06-16-2024 End: 71-17-0704wekdxktkvaTDNMIPJ NKANSAH-BOOFacility:FTMCStart: 06-09-2024 End: 15-24-5607dgwjxyeachNZ KWABENA NKANSAH-BOOFacility:FTMCStart: 06-09-2024 End: 33-12-4396Ukgyjzo encounter procedureMIKE SLADE [facility] Start: 06-09-2024 End: 96-63-9062znoburuedfSO KWABENA NKANSAH-BOOFacility:EU [place]walkStart: 06-09-2024 End: 73-85-5902Pnwmtoy encounter procedureMIKE SLADE [facility] Start: 05-24-2024 End: 40-51-5973Sygtmi Jos Mendoza MD Work Phone: CardiologyComment on above:Chronic systolic (congestive) heart failure (HCC) (Primary Dx)Chronic diastolic heart failure (HCC) (Primary Dx); Complex medical condition; Typical atrial flutter (HCC); Paroxysmal atrial fibrillation (HCC); Essential hypertension, benign; Cardiomyopathy, nonischemic (HCC); Other hyperlipidemia; History of partial colectomy; Chronic anticoagulationStart: 05-16-2024 End: 25-70-0097Tinlzk Raegan Qureshi MD Work Phone: CardiologyComment on above:Gastrointestinal bleeding, lower (Primary Dx); Atrial fibrillation, persistent (HCC); Atypical atrial flutter (HCC); Typical atrial flutter (HCC)Start: 05-10-2024 End: 49-81-2684Nrgjkiimt encounterRd Qureshi MD Work Phone: CardiologyComment on above:Patient Update (Procedures) Start: 05-09-2024 End: 05-43-4361vsldhxnpxoXczkad Z Lee MD Work Phone: CardiologyComment on above:Atrial fibrillation, persistent (HCC) (Primary Dx); Typical atrial flutter (HCC)Start: 05-09-2024 End: 44-76-5438Dooxgithpavc consultation with patientRd Qureshi MD Work Phone: CardiologyStart: 03-18-2024 End: 21-27-1559Eamrjsm encounter procedureRebecca E Reay MONIK Work Phone: CardiologyComment on above:Chronic systolic (congestive) heart failure (HCC) (Primary Dx)Start: 03-18-2024 End: 29-23-8143kwpblfmmsfOSHDHRW E REAYFacility:[facility] Hospitaltart: 02-16-2024 End: 48-45-7983Wqcmjultp encounterKendra Mendoza MD Work Phone: CardiologyStart: 02-09-2024 End: 98-09-7282Vjvkcaj encounter procedureTransesophageal Echo Card Main CardiologyComment on above:Paroxysmal atrial fibrillation (HCC)Start: 02-05-2024 End: 84-81-0277Gxmgss Aranza Talavera MD Work Phone: cardiologyComment on above:Paroxysmal atrial fibrillation (HCC) (Primary Dx)Patient Education (EPS- SHARON/DCC)Appointment (EPS- SHARON/DCC)Start: 02-04-2024 End: 43-81-5266Folbggl encounter procedureKendra Mendoza MD Work Phone: CardiologyComment on above:Paroxysmal atrial fibrillation (HCC) (Primary Dx); Chronic systolic (congestive) heart failure (HCC); Essential hypertension, benign; Tachycardia induced cardiomyopathy (HCC); Cardiomyopathy, nonischemic (HCC); Non-rheumatic mitral regurgitation; Other specified hypothyroidism; Other hyperlipidemia; Carpal tunnel syndrome, unspecified laterality; History of partial colectomy; History of gastrointestinal bleeding; Chronic anticoagulationStart: 02-04-2024 End: 86-18-2257Ordpqpane encounterKendra Mendoza MD Work Phone: CardiologyStart: 01-08-2024 End: 11-25-9854vbvbcqoyimKWDUAG [facility] Campustart: 12-31-2023 End: 79-09-9266hercjogzefMBGNSD [facility]: 12-25-2023 End: 09-03-9507Ancgit outpatient visit 25 minutesAvelina Chowdhury MD Work Phone: FirelandsComment on above:Essential hypertension, benign; Left atrial dilation; Mitral valve insufficiency, unspecified etiology; Persistent atrial fibrillation with rapid ventricular response (Multi); High risk medication use; Shortness of breath; Former smokerStart: 12-25-2023 End: 21-82-9890ldyvfdlptiXVRDUCPiedmont [facility] AmbulatoryStart: 05-25-2023 End: 92-72-4941otpqjdyyfpYFGDBDPiedmont [facility] AmbulatoryStart: 89-20-4208Logbzzk encounter Tousha Ziegler Francesco Work Phone: [phone]-Rgphb [facility] 250 DO Work Phone: Start: 60-38-1198pankqcgfytUp. Avelina Chowdhury Facility:[id number]: 81-57-6648Snsjiz outpatient visit 25 minutesSamantha Toney Francesco Work Phone: [phone]-Igrirrqbou-[place] 250 DO Work Phone: Start: 79-54-8657zdltmjdlsvQfDr. Avelina Chowdhury Facility:[id number]: 60-10-4039jzcxayzzmaQrulatoryDr. Avelina Chowdhury Facility:[id number]: 10-31-2022 End: 39-21-7947vesqznloifSrktkx Ibrbrigham city community hospitalFacility:[facility] Centertart: 49-09-2942Cw RenewalDougusha Maya Work Phone: [phone]-Ologr [facility] 250 DO Work Phone: Start: 10-27-2022 End: 74-01-1040admvyppwxnQedpcf Ibrbrigham city community hospitalFacility:[facility] Centertart: 78-06-4783ilphsdqfkvNiRodolfo MayaFacility:[id number]: 09-16-2022 End: 09-64-4770knhxdftsgsCO SAMANTHA MAYA .Facility:W6Waoth: 09-09-2022 End: 28-74-7717attlfclbopNB DOUGLAS HOY .Facility:L2Oztbb: 02-14-2022 End: 63-31-0253ukxdhpxacpQG DOUGLAS HOY .Facility:Q0Cdtie: 11-14-2021 End: 36-85-7963Ckngraq encounter procedureKatginny Levin MD Work Phone: OphthalmologyComment on above: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); Epiretinal membrane (ERM) of both eyes Procedures DateProcedureProcedure DetailPerforming ClinicianStart: 08-34-7645Rh loclzj brinda spect w/ct 1 area 1 day imagingArsgarrison Valles MD Work Phone: start: 31-52-8658Ocxgrxzctdk insertion of ureteric stentMIKE SLADE Start: 23-99-3703Yuut transthorc r-t 2d w/wo m-mode rec f-up/lmtGail Mendoza MD Work Phone: Start: 04-17-3306Wuj routine ecg w/least 12 lds w/i&r Avelina Chowdhury MD Work Phone: Start: 91-72-7302UAD screeningDR SAMANTHA MAYA .Comment on above:Performed By: #### PSASC ####[facility] [address] [place], [place] [address]Ce. Yilan ChangStart: 11-14-2021 End: 04-06-6956Ymwiinyazeny ophthalmic imaging Jay Levin MD Work Phone: Arthroplasty of kneeDouglas M Hoy Work Phone: Arthroplasty of kneeKWABENA NKANSAH-AMANKRA Bleeding (finding)MIKE NKANSAH-AMANKRA Cardiac catheterizationDouglas M Hoy Work Phone: [...] TonsillectomyKWABENA NKANSAH-AMANKRA Plan of Treatment DateCare ActivityDetailAuthorStart: 54-25-6281Vfswtxfr ScreeningDiabetes ScreeningSelect Medical [facility] Shawtart: 51-78-3865Bxycsxhx ScreeningDiabetes Screening [facility]Start: 16-44-6353Afjmgghj ScreeningDiabetes ScreeningSelect Medical [facility] Shawtart: 06-06-2025 End: 58-10-7355IclgnimivefvjwxcAMGY Cardiology Routine Chronic diastolic heart failure (HCC) Expected: 06/06/2025, Expires: 12/05/2025[facility] Work Phone: Comment on above:Expected: 06/06/2025, Expires: 12/05/2025Start: 06-02-2025 End: 74-06-8860Ulripcv encounter procedureVascular MedicineComment on above:DX: HEART FAILUREStart: 05-26-2025 End: 98-03-7494Veryqvcln to same day surgery basbwc2305/26/2025 1:00 PM EST - 05/26/2025 6:32 PM EST Surgery HOS[facility] EP Lab [address] [place] [address] Ariana Valles MD [address] [place] [address] COMPRE EP EVAL ABLTJ ATR FIB PULM VEIN ISOLATIONHOPATTON [facility] EP LabComment on above:COMPRE EP EVAL ABLTJ ATR FIB PULM VEIN ISOLATIONStart: 05-26-2025 End: 68-60-5486Jcyte evl trnsptl tx atrial fib isolat pulm veinCOMPRE EP EVAL ABLTJ ATR FIB PULM VEIN ISOLATION Atrial fibrillation, unspecified type (HCC) 05/26/2025 1:00 PM [facility] EP LABStart: 05-26-2025 End: 84-96-8243Lizd clsr tcat l atr apndge w/endocardial implntPERC TRANSCATH CLOSURE LEFT ATRIAL APPENDAGE W/IMPLANT,INCLUSIVE OF FLUORO,TRANSEPTAL PUNCTURE,CATHPLACEMENT(S) ANGIO,WHEN PERFORMED,RAD S&I Atrial fibrillation, unspecified type (HCC) 05/26/2025 1:00 PM [facility] EP LABStart: 05-26-2025 Subsequent hospital visit by [email or web address]/19/2025 1:00 PM EST Hospital Encounter HOSP EP Lab [address] [place] [address] [place] [address] [place] [id number] Atrial fibrillation, unspecified type (HCC) [I48.91]HOSP EP LabComment on above: Atrial fibrillation, unspecified type (HCC) [I48.91]Start: 05-26-2025 End: 34-75-7545Eolultl encounter procedureCardiologyComment on above:TO BE DONE IN THE LABPVI+WATCHMANStart: 04-28-2025 End: 33-48-7374AOG panel - Blood by Automated countCOMPLETE BLOOD COUNT Lab Routine PAF (paroxysmal atrial fibrillation) ([facility]) Expected: 04/28/2025, Ex cristy: 12/19/2025[facility] Work Phone: comment on above:Expected: 04/28/2025, Expires: 12/19/2025Start: 04-28-2025 End: 79-41-2355Kiyyadnxhdvci metabolic 2000 panel - Serum or PlasmaCOMPREHENSIVE METABOLIC PANEL Lab Routine PAF (paroxysmal atrial fibrillation) ([facility]) Expected: 04/28/2025, Expires: 12/19/2025leveland ClinicComment on above: Expected: 04/28/2025, Expires: 12/19/2025Start: 04-28-2025 End: 24-30-9252JNNHRMB BLOOD TYPECONFIRM BLOOD TYPE Blood Bank Routine PAF (paroxysmal atrial fibrillation) ([facility]) Expected: 04/28/2025, Expires: 12/19/[address] [facility]Expected: 04/28/2025, Expires: 12/19/2025Start: 04-28-2025 End: 74-06-6792OSRX AND SCREEN,30 DAYTYPE AND SCREEN,30 DAY Blood Bank Routine PAF (paroxysmal atrial fibrillation) ([facility]) Expected: 04/28/2025, Expires: 12/19/2025[facility] centerand ClinicComment on above:Expected: 04/28/2025, Expires: 12/19/2025Start: 04-28-2025 End: 65-00-4046Vximrtm encounter alpnlpbif65/21/2025 1:30 PM EST Office Visit Cardiology [address] [place] [address] Paulette Emmanuel APRN.GERIATRIC NURSE ASSISTANT [address] [place] [address] PVI+WATCHMANCardiologyComment on above:PVI+WATCHMANStart: 04-28-2025 End: 89-88-7835mcguqginrmEtnigfpnxaQhvsted on above:PVI+WATCHMANStart: 43-97-0391Bstbaiqal vaccinationSelect Medical [facility] Clinic [facility], [facility]: 12-27-2024 End: 60-97-7127Dkvgsbx encounter procedureCardiologyComment on above:Dx. Atrial fibrillation, persistent (HCC)Start: 12-05-2024 End: 58-11-7257Ezbsuvc encounter procedureVascular MedicineComment on above:DX: Chronic heart failure with preserved ejection fractionStart: 11-22-2024 End: 14-31-4734DbktjbmdikpaflttUOTT Cardiology Routine Chronic diastolic heart failure (HCC) Expected: 11/22/2024, Expires: 05/24/2025[facility] Work Phone: Comment on above:Expected: 11/22/2024, Expires: 05/24/2025Start: 10-10-2024 End: 87-09-1969RS Bones Complete Survey ViewsXR BONE SURVEY ROUTINE Radiology Routine Monoclonal gammopathy Expected: 10/10/2024 (Approximate), Expires: 11/02/2025[facility] Work Phone: Comment on above:Expected: 10/10/2024 (Approximate), Expires: 11/02/2025Start: 10-06-2024 End: 63-44-7744RA Bones Complete Survey ViewsXR BONE SURVEY ROUTINE Radiology Routine Monoclonal gammopathy Expected: 10/06/2024, Expires: 11/05/2025[facility] Work Phone: Comment on above:Expected: 10/06/2024, Expires: 11/05/2025Start: 10-03-2024 End: 75-65-4416Oleqoje encounter fconilfjm30/28/2025 12:15 PM EDT Office Visit Cardiology [address] [place] [address] Hzvxbrcnwgd CardiologyComment on above:AmyloidosisStart: 10-03-2024 End: 09-94-5352Daiinio encounter myxglxmkr13/28/2025 10:30 AM EDT Appointment Molecular Imaging [address] [place] [address] NM SPECT/CT CARDIAC AMYLOIDMolecular ImagingComment on above:NM SPECT/CT CARDIAC AMYLOIDStart: 10-03-2024 End: 32-88-1800Qmjextd encounter procedureMolecular ImagingComment on above:NM SPECT/CT CARDIAC AMYLOIDAmyloidosisStart: 09-20-2024 End: 40-55-6794Tplgdbq encounter wgquipezl80/15/2025 2:30 PM EDT Office Visit Cardiology [address] [place], [place] [id number] Ariana Valles MD [address] [place] [address] WATCHMAN CONSULTCardiologyComment on above:WATCHMAN CONSULTStart: 09-20-2024 End: 84-72-6784kixhhyamcr49/15/2025 1:45 PM EDT Results Only Cardiology [address] [place], [place] [id number] EKGCardiologyComment on above:EKG Start: 52-94-9978Nenjdnv Directive DiscussionAdvance Directive Discussion [facility]: 05-24-2024 End: 72-60-8317Uhgfi metabolic 2000 panel - Serum or PlasmaSt. Vincent Hospital Comment on above:Expected: 05/24/2024, Expires: 08/23/2024Start: 05-24-2024 End: 61-68-7122Qvflssjqlnn peptide.B prohormone N-Terminal [Mass/volume] in Serum or PlasmaOur Lady Of Mercy [facility] - [facility] Work Phone: Comment on above:Expected: 05/24/2024, Expires: 08/23/2024Start: 05-24-2024 End: 04-29-8026mheaoiapul26/17/2024 9:15 AM EST Results Only [address] [place] [address] [address] [place] [address] DX: Chronic systolic heart failureMain [place] [address] Draw StationComment on above:DX: Chronic systolic heart failureStart: 05-24-2024 End: 12-97-2110Blhezyc encounter procedureVascular MedicineComment on above:DX: Chronic systolic heart failureStart: 05-09-2024 End: 23-60-0466itfnznhdlw54/02/2024 10:45 AM EST [facility] Cardiology [address] [place] [address] Rd Qureshi MD [address] [facility] [address] [place] [address] DX: AFIB CardiologyComment on above:DX: AFIBStart: 05-06-2024 End: 03-75-0052FqzdvihpysyjzweyUJEQ Cardiology Routine Paroxysmal atrial fibrillation (HCC) Chronic systolic (congestive) heart failure (HCC) Expected: 05/06/2024, Expires: 02/03/2025leveland ClinicComment on above:Expected: 05/06/2024, Expires: 02/03/2025Start: 03-18-2024 End: 79-03-5685Vbogrli encounter procedureCardiologyComment on above:Paroxysmal atrial fibrillation (HCC) [I48.0]Start: 03-18-2024 End: 92-05-9925gkinzqoddp34/11/2024 8:00 AM EDT [facility] Cardiology [address] [place] [id number] Paroxysmal atrial fibrillation (HCC) [I48.0]CardiologyComment on above:Paroxysmal atrial fibrillation (HCC) [I48.0]Start: 02-24-2024 End: 57-88-9178Yukjdec encounter vyyziotii01/18/2024 11:10 AM EDT Office Visit [place] [address] [facility] [address] [place] [address] Avelina Chowdhury MD [address] [facility] [address], [address] [place] [address] [facility]: 02-09-2024 End: 70-94-3287Rcdcdlfui to same day surgery hrrvdi8902/09/2024 5:15 PM EDT - 02/09/2024 6:15 PM EDT Surgery HOSP EP Lab [address] [facility] [address] Rd Qureshi MD [address] [place] [address] 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 EXTERNAL ELECTIVEHOSP EP LabComment on above: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 EXTERNAL ELECTIVEStart: 02-09-2024 End: 91-24-4199Jlydxwlxzfnuh elective arrhythmia external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 EXTERNAL ELECTIVE Persistent atrial fibrillation (HCC) 02/09/2024 5:15 PM [facility] Start: 95-23-6261Frujteojid hospital visit by pwwwaohww59/03/2024 5:15 PM EDT Hospital Encounter HOSP EP Lab [address] [place] [address] Tanisha Qureshi MD [address] [place] [address] Persistent atrial fibrillation (HCC) [I48.19]HOSP EP Lab Comment on above:Persistent atrial fibrillation (HCC) [I48.19]Start: 02-09-2024 End: 96-74-5248Bpvlcaqxjdngx elective arrhythmia external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 EXTERNAL ELECTIVE Persistent atrial fibrillation (HCC) 02/09/2024 3:35 PM [facility] Start: 02-09-2024 End: 09-41-5863Rxsseng encounter procedureAdmittingComment on above:[facility] DCCVStart: 96-35-6353Tgpex-19 Vaccine ()Covid-19 Vaccine ()[facility]Start: 32-88-5236Ndcej-19 Vaccine ( season)Covid-19 Vaccine ( season)[facility]: 02-07-2024 Influenza vaccinationInfluenza Vaccine (#1)[facility]: 02-04-2024 End: 70-89-1166Glxswlwubmiyf metabolic 2000 panel - Serum or PlasmaCOMPREHENSIVE METABOLIC PANEL Lab STAT Paroxysmal atrial fibrillation (HCC) Chronic systolic (congestive) heart failure (HCC) Expected: 02/04/2024, Expires: 05/05/2024 [facility] ClinicComment on above:Expected: 02/04/2024, Expires: 05/05/2024Start: 02-04-2024 End: 80-35-0179Dsbbagrzkuq peptide.B prohormone N-Terminal [Mass/volume] in Serum or PlasmaNT PRO BNP Lab STAT Paroxysmal atrial fibrillation (HCC) Chronic systolic (congestive) heart failure (HCC) Expected: 02/04/2024, Expires: 05/05/2024[facility] ClinicComment on above:Expected: 02/04/2024, Expires: 05/05/2024Start: 02-04-2024 End: 33-38-6130Lqixxawlgor [Units/volume] in Serum or PlasmaTHYROID STIMULATING HORMONE Lab Routine Paroxysmal atrial fibrillation (HCC) Chronic systolic (conge stive) heart failure (HCC) Expected: 02/04/2024, Expires: 05/05/2024leveland ClinicComment on above:Expected: 02/04/2024, Expires: 05/05/2024Start: 01-08-2024 End: 48-83-0512Zvtbcdp encounter wxtyimurt54/02/2024 8:45 AM EDT Appointment [facility] [address] [address] [facility]Start: 12-31-2023 End: 02-85-0095Gzeduvbediag consultation with lmwaeka9812/31/2023 10:00 AM EDT Telemedicine [facility] [address] [place] [address] [place] [address] [place], [place] [phone] (Work) [facility] CenterElenotart: 12-25-2023 End: 88-99-7259HY Heart TransthoracicTransthoracic Echo Complete Echocardiography Routine Left atrial dilation Mitral valve insufficiency, unspecified etiology Expected: 12/25/2023 (Approximate), Expires: 12/24/2025[facility] Service Area Work Phone: Comment on above:Expected: 12/25/2023 (Approximate), Expires: 12/24/2025Start: 13-71-2746Ucrhutm Directive DiscussionAdvance Directive DiscussionSelect Medical [facility] Clinic Rehabilitation [facility], [facility]: 84-31-9612TNG, Provider: Avelina Chowdhury, Status: Pen, Time: 9:10 AMFUV, Provider: Avelina Chowdhury, Status: Pen, Time: 9:10 UEUU-Budegubiro-Uegbfoql 250 DO Work Phone: Start: 69-56-5920Rovea-19 Vaccine ( season) Covid-19 Vaccine ( season)[facility]: 71-92-5446JAK, Provider: Avelina Chowdhury, Status: Pen, Time: 1:00 PMFUV, Provider: Avelina Chowdhury, Status: Pen, Time: 1:00 PMEssentia Health 250 DO Work Phone: Start: 11-29-2022 End: 73-51-8791QHK MACULA CIRRUS OU (BOTH EYES)OCT MACULA CIRRUS OU (BOTH EYES) OPHT Imaging Routine Epiretinal membrane (ERM) of both eyes Nevus of choroid of left eye Expected: 11/29/2022, Expires: 05/08/2023[facility] Work Phone: Comment on above:Expected: 11/29/2022, Expires: 05/08/2023Start: 42-69-3312Cvjkbuoik vaccinationINFLUENZA (Season Ended) [facility]: 97-72-3434LVWUP-19 VACCINE (4 - Booster for Moderna series)COVID-19 VACCINE (4 - Booster for Moderna series)[facility]: 74-77-7309HKZZCUR DIRECTIVE DISCUSSIONADVANCE DIRECTIVE DISCUSSIONSelect Medical [facility] Clinic [facility]: 65-72-5841WHV Vaccine (1 - 1-dose 75+ series)RSV Vaccine (1 - 1- dose 75+ series)[facility]: 49-91-0332CVRKXLYD SCREENDIABETES SCREEN [facility]: 82-42-0151Ohgbzdgo ScreeningDiabetes ScreeningSelect Medical [facility] Clinic [facility]: 19-73-1185Kwybyxbdhsjb Vaccine: 65+ (1 of 1 - PCV)Pneumococcal Vaccine: 65+ (1 of 1 - PCV)[facility]: 22-41-7437VBYIFYHYUYYV: 65+ (1 - PCV)PNEUMOCOCCAL: 65+ (1 - PCV)[facility]: 04-01-2006Medicare Annual Wellness VisitMedicare Annual Wellness VisitSelect Medical [facility] Clinic Rehabilitation Hospital, [facility]: 21-33-0325SSR patients and/or patients aged 60+ years (1 - 1-dose 60+ series)RSV patients and/or patients aged 60+ years (1 - 1-dose 60+ series)[facility]: 77-25-6954QYH Vaccine (1 - 1-dose 60+ series)RSV Vaccine (1 - 1-dose 60+ series)[facility]: 1990 SHINGRIX VACCINE (1 of 2)SHINGRIX VACCINE (1 of 2)[facility]: 74-07-1702Swmdpr Vaccines (1 of 2)Zoster Vaccines (1 of 2)[facility]: 74-90-7010NSbA/Tdap/Td Vaccines (1 - Tdap)DTaP/Tdap/Td Vaccines (1 - Tdap)[facility]: 09-29-1959 Pneumococcal Vaccine: 50+ (1 of 2 - PCV)Pneumococcal Vaccine: 50+ (1 of 2 - PCV) [facility]: 22-10-4033Xoden microalbumin profileSt. Vincent Hospital Start: 77-42-6340Ghdfawm ScreeningAnxiety ScreeningSelect Medical [facility]: 82-77-3840Ifeexaluyu ScreeningDepression ScreeningSelect Medical [facility] Clinic [facility]: 79-88-2698Uqgzmxgxdjmh Vaccine: 65+ (1 of 2 - PCV)Pneumococcal Vaccine: 65+ (1 of 2 - PCV)[facility]: 65-38-6333Xocqkfsiglmy Vaccine: 65+ Years (1 of 2 - PCV)Pneumococcal Vaccine: 65+ Years (1 of 2 - PCV)[facility]: 34-48-4262Pmqke panelLipid PanelUnMetroHealth Main Campus Medical Center: 04-23-1941Medicare Annual Wellness VisitMedicare Annual Wellness Visit (AWV)[facility] HospitalCardioversion elective arrhythmia internal spx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, ELECTIVE, ELECTRICAL Cardiology Routine Paroxysmal atrial fibrillation (HCC) Ordered: 02/04/2024[facility] Work Phone: Comment on above:Ordered: 02/04/2024 End: 35-13-8346GBY COMPLETEECG COMPLETE ECG Routine Paroxysmal atrial fibrillation (HCC) 1 Occurrences starting 02/05/2024 until 5CBluffton Hospital Work Phone: comment on above:1 Occurrences starting 02/05/2024 until 02/04/2025 End: 30-17-2495BFW COMPLETEECG COMPLETE ECG Routine SOB (shortness of breath) 1 Occurrences starting 09/26/2024 until 09/26/2025[facility] Work Phone: comment on above:1 Occurrences starting 09/26/2024 until 09/26/2025 End: 34-06-6095OFG COMPLETEECG COMPLETE ECG Routine PAF (paroxysmal atrial fibrillation) (HCC) 1 Occurrences starting 12/19/2024 until 12/19/2025[facility] ClinicComment on above:1 Occurrences starting 12/19/2024 until 12/19/2025 End: 24-20-9327SHOS TRANSESOPHAGEALECHO TRANSESOPHAGEAL Cardiology Routine Paroxysmal atrial fibrillation (HCC) 1 Occurrences ymtjggzl37/29/2024 until 02/03/2025[facility] ClinicComment on above:1 Occurrences starting 02/04/2024 until 02/03/2025 End: 93-29-2082PJYK TRANSESOPHAGEALECHO TRANSESOPHAGEAL Cardiology Routine PAF (paroxysmal atrial fibrillation) (HCC) 1 Occurrences starting 12/19/2024 until 12/19/2025[facility] ClinicComment on above:1 Occurrences starting 12/19/2024 until 12/19/2025 End: 61-56-2479HLOYH Heart for infarct W Tc-99m PYP IVNM SPECT/CT CARDIAC AMYLOID Radiology Routine Chronic diastolic heart failure (HCC) [address] arting 09/20/2024 until 10/20/2025[facility] Work Phone: comment on above:1 Occurrences starting 09/20/2024 until 10/20/2025 Immunizations Immunization DateImmunizationNotesCare DwkokkydIzinvedq26-24-1963Lbcnojt COVID- 19 Vaccine 100 MCG/0.5ML Intramuscular SuspensionDouglas M Hoy Work Phone: [phone]-UvxeeEssentia Health 250 DO Work Phone: [phone] COVID-19 Vaccine 100 MCG/0.5ML Intramuscular SuspensionDouglas M Hoy Work Phone: [phone]-DeofcEssentia Health 250 DO Work Phone: [phone] COVID-19 Vaccine 100 MCG/0.5ML Intramuscular SuspensionDouglas M Hoy Work Phone: [phone]-UhiceEssentia Health 250 DO Work Phone: [phone]h virus vaccine, unspecified formulationDouglas M Hoy Work Phone: [phone]-PsmnuEssentia Health 250 DO Work Phone: [phone]zpql virus vaccine, unspecified formulationDouglas M Hoy Work Phone: [phone]-ZonwhEssentia Health 250 DO Work Phone: [phone], high dose seasonal, preservative-freeDouglas M Hoy Work Phone: [phone]-CazrjEssentia Health 250 DO Work Phone: Payers DatePayer CategoryPayerPolicy [id number]-[id number] Health [id number] O MEDICARE SUPPLEMENT [id number] 2020-Present [phone] [address] [place] [address] [id number] 2020Unknown2006Medicare [id number] [id number] 1960 [id number] 2.16.840.1.679350.3.579.2.593 [id number] 2.16.840.1.916999.3.57[id number] 2.16.840.1.137614.3.57[id number] 2.16.840.1.437171.3.57[id number] 2.16.840.1.018849.3.57[id number] 2.16.840.1.191151.3.57[id number] 2.16.840.1.761608.3.579.[id number] 2.16.840.1.558760.3.57[id number] 2.16.840.1.134860.3.57[id number] 2.16.840.1.894866.3.57[id number] 2.16.840.1.252918.3.57[id number] 2.16.840.1.292427.3.57[id number] 2..840.1.540163.3.57[id number] 2.16.840.1.107811.3.57[id number] 2..840.1.121343.3.57[id number] 2.16.840.1.333987.3.57[id number] 2.840.1.292000.3.57[id number] 2..840.1.9[id number] 2.0.1.894001.3.579.2.531 [id number] 2.840.1.253062.3.579.2.531 Social History DateTypeDetailFacilityStart: 12-14-2015 End: 38-47-9272Zamzikm smoking status NHISNever smoked tobaccoSt. Vincent Hospital Start: 12-14-2015 End: 43-92-4175Acweacf use and exposureSmokeless tobacco non-userSelect Medical [facility] Clinic Rehabilitation Hospital[facility]: 11-14-2021 End: 93-91-1567Inoxqwf intakeCurrent drinker of alcohol (finding)[facility]: 36-02-1060Bchenfq SDOH Alcohol Commenton occSelect Medical [facility] Clinic Rehabilitation [facility], [facility]: 89-89-0826Zmf Assigned At BirthNot on fileSelect Medical [facility] Clinic Rehabilitation [facility]: 02-04-2024 End: 66-47-8649Yjzct a smokerNever a smokerSt. Vincent HospitalComment on above: COFFEE DAILY;Start: 05-25-2023 End: 56-56-2443Ckmrucq smoking status NHISEx-smokerFayette County Memorial Hospital Work Phone: Start: 53-24-7753Xzgjltq of tobacco useCurrent smoker [facility] Work Phone: Start: 35-01-6967Twlbvau of tobacco useCigarette SmokerUnSt. Vincent Hospital Work Phone: Start: 02-04-2024 End: 44-75-0274Vjftmol use panelSt. Vincent HospitalNational Score (1-100), lower number is lower bksl31KgiqghuoeSelect Medical Cleveland Clinic Rehabilitation [facility]: 42-67-8661Uacycmr CommentSmoked as a teenager for a brief period of timeUnSt. Vincent Hospital Work Phone: Start: 04-42-1496Gigtkvx Comment1 beer a month [facility] Work Phone: Start: 12-15-2023 End: 47-07-7476Ycgagwxu to SARS-CoV-2 (event)Not sureUnSt. Vincent HospitalSexual OrientationExecutive Urology of [facility] Start: 26-28-8341EkvDilc (finding)[facility] Medical Equipment Procedure CodeEquipment CodeEquipment Original TextEquipment IdentifierDates CYSTOSCOPY RETROGRADE STENT INSERTION Unknown 06/16/24 Unknown Ureter LFDAStart: 78-09-9562CKUBQJGYTZ RETROGRADE STENT INSERTION Unknown 06/16/24 Unknown Ureter L FDAStart: 85-50-1867SSXPJFROVH RETROGRADE STENT INSERTION Unknown 06/16/24 Unknown Ureter LFDAStart: 61-57-8487EVIAPTCSXT RETROGRADE STENT INSERTION Unknown 06/16/24 Unknown Ureter LFDAStart: 06-16-2024 Goals DatePatient GoalDesired Activity/StatePersonal health goal Functional Status QzfqZyrlijiertQryzliOdmjrxsj17-80-6702Mkmsmtrvth StatusN/AExecutive Urology of [facility] Hospital01-02-2025Functional StatusN/AFKettering Health Dayton01-02-2025Functional StatusN/AExecutive [facility]rology of [facility] Hospital09-03-2024Are you deaf, or do you have serious difficulty hearingNo 02/09/2024 4:35 PM Evelia Vaughan, DARRIAN [facility] 73-23-6310Hvv you blind, or do you have serious difficulty seeing, even when wearing glassesNo 02/09/2024 4:35 PM Evelia Vaughan RN NoCOhioHealth Marion General HospitalOpvbkx81-25-8851Qr you have serious difficulty walking or climbing stairsNo 02/09/2024 4:35 PM Evelia Vaughan, DARRIAN AjOhioHealth Marion General HospitalEbhbua87-37-8547Cw you have difficulty dressing or bathingNo 02/09/2024 4:35 PM Evelia Vaughan, DARRIAN [facility] HospitalOjwrat39-76-8888Mqutkgs of a physical, mental, or emotional condition, do you have difficulty doing errands alone such as visiting a physician's office or shoppingNo 02/09/2024 4:35 PM Evelia Vaughan RN [facility] Mental Status DskmVeloumkaujPxwwreYvjcqifr95-91-7306Nrfnwyh of a physical, mental, or emotional condition, do you have serious difficulty concentrating, remembering, or making decisionsNo 02/09/2024 4:35 PM Evelia Vaughan, DARRIAN [facility] Clinical Notes 11-14-2021 to 01-02-2025 Note Date & OkduJjemFccqrrnq94-97-4200 Hospital Discharge instructions Patient Education 01/02/2025 10:51:38 [...] include: ?8 oz (237 mL) of milk, nnzesen-kzvuwzpgnxgd-bmtet milk, and calcium- fortifiedfruit juice. Calcium-fortified means [...] ?Spinach (cooked), rhubarb, beets, sweet potatoes, and Bur[place] chard. ?Peanuts. ?Potato chips, cymro fries, and baked potatoes with skin on. ?Nuts and nut products. ?Chocolate. If you regularly take a diuretic medicine, make sure to eat at least 1 or 2 servings of fruits or vegetables that are high in potassium each day. These include: ?Avocado. ?Banana. ?[place], prune, carrot, or tomato juice. ?Baked potato. [...] magnesium, fish oil, or vitamin B6. Take mkxh-eng-nkddshp and prescription medicines only as told by [...] Casseroles. Pizza. Lasagna. Frozen meals. Potato chips. Gabonese fries. The items listed above may not [...] Document Reviewed: 09/04/2022 Elsevier Patient Education 2023 [employer] Follow Up Care 07/07/2024 11:03:32 With:MIKE SLADE MD, URL Address: When: Unknown [facility] 07-28-2025 NotePatient Education Nephrology Dietary Guidelines to [...] ? 8 oz (237 mL) of milk, lkzrill-nbqdqmyucqfb-tyons milk, and calcium- fortifiedfruit juice. Calcium-fortified means [...] Spinach (cooked), rhubarb, beets, sweet potatoes, and [place]ian chard. ? Peanuts. ? Potato chips, cymro fries, and baked potatoes with skin on. ? Nuts and nut products. ? Chocolate. ??? If you regularly take a diuretic medicine, make sure to eat at least 1 or 2 servings of fruits or vegetables that are high in potassium each day. These include: ? Avocado. ? Banana. ? [place], prune, carrot, or tomato juice. ? Baked [...] fish oil, or vitamin B6. ??? Take ushk-hrf-yizoqmp and prescription medicines only as told by your health (more content not included)...[facility]07-14-2025 Telephone encounter Note* Telephone Encounter - Barbara Mcclendon RN - 12/19/2024 10:20 AM EDT Patient returned call & accepted date. SDM by Dr. Mendoza - no appointment needed. Needs OPD with EP HAND INSERTER OPERATOR, ECG & Labs (CBC CMP,30 day T&S with Confirm) within 30 days prior to procedure date. Needs procedural SHARON. Medication instructions given, as indicated below. Stated understanding. Letter with instructions mailed to the patient. [facility] Miscellaneous Notes* Telephone Encounter - Barbara Mcclendon RN - 12/19/2024 10:20 AM EDT Patient returned call & accepted date. SDM by Dr. Mendoza - no appointment needed. Needs OPD with EP HAND INSERTER OPERATOR, ECG & Labs (CBC CMP,30 day T&S [...] requested: Left Appendage Closure Device Watchman CPT 02340 + PVI Anticoagulation Status: Eliquis (apixaban) Requesting Physician: Ariana Valles MD Procedural Physician: Ariana Valles MD or rd qureshi (ablation and Reena for watchman) Date of last H&P or Date of upcoming H&P: 09/20/24 Indications for procedure: Atrial Fibrillation and Previous bleed Procedure time frame: Patient convenience Current Meds: Current Outpatient Medications: apixaban (ELIQUIS) 2.5 mg tab(s) Xfvxmwosxpwlw-Qylzuvln-Wkjcrr (CENTRUM SILVER) tab magnesium oxide 400 mg [...] 26, 2024 4:46 PM documented in this encounterSt. Vincent Hospital07-11-2025 Telephone encounter Note * Telephone Encounter - Barbara Mcclendon RN - 12/16/2024 2:29 PM EDT I reached out to patient to confirm the date. Patient asked to call back next week, by 12/20/24, with confirmation. [facility]07-09-2025 Telephone encounter Note* Telephone Encounter - Lolita Banegas RN - 12/14/2024 6:17 PM EDT Called and left message offering patient procedure date of Thursday05/26/[address] Valles. Awaiting return call and confirmation from patient. [facility]07-09-2025 Telephone encounter Note* Telephone Encounter - Lolita Banegas RN - 12/14/2024 6:17 PM EDT ----- Message from Ariana Valles MD sent at 09/26/2024 4:45 PM EDT ----- Regarding: PVI + Watchman Patient: Brandi Dalton JR EP Lab Procedure requested: Left Appendage Closure Device Watchman CPT 69284 + PVI Anticoagulation Status: Eliquis (apixaban) Requesting Physician: Ariana Valles MD Procedural Physician: Ariana Valles MD or rd qureshi (ablation and Kochar for watchman) Date of last H&P or Date of upcoming H&P: 09/20/24 Indications for procedure: Atrial Fibrillation and Previous bleed Procedure time frame: Patient convenience Current Meds: Current Outpatient Medications: apixaban (ELIQUIS) 2.5 mg tab(s) Jmpwzjfirnqpl-Udxfyeeq-Odhsse (CENTRUM SILVER) tab magnesium oxide 400 mg [...] Valles MD September 26, 2024 4:[address] [facility]06-30-2025 NoteHNO ID: [id number] Author: KENDRA MENDOZA MD Service: ? 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 Ayovirsswmctq-Vctbasza-Ibzclr (CENTRUM SILVER) tab Take 1 tablet by [...] Score 0 1 05/21/2024 (more content not included)...[facility]06-30-2025 History of Present illness Narrative* Kendra Mendoza MD - 12/05/2024 12:40 PM EDT Images from the original note were not included. 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 Lmrfqiyomcpun-Beiyzgzb-Oksaoe (CENTRUM SILVER) tab Take 1 tablet by [...] Abs Lymph 1.00 - 4.00 k/uL 1.74 Huron% % 13.6 Abs Huron <0.87 k/uL 0.85 Eosin% % 3.5 Abs [...] Staff Review Reviewed by Mansi Kuo MD [place] Free, Serum 3.3 - 19.4 mg/L Lambda Free, Serum 5.7 - 26.3 mg/L K/L Ratio, Serum 0.26 - 1.65 MPA Result No M protein is identified. Interpretation (MPA) Staff Review (RUST) Result (UMPA) No M protein is identified. [...] due to bradycardia post-cardioversion the B-tyron was /2/24 and diuretics stopped due to hypotension. Eliquis [...] and consideration for watchman (Dr Ariana Valles [phone] ) Followup with me in 6 mo [...] non-medical management as above. Kendra Mendoza MD [facility] Section Of Heart Failure and Cardiac Transplant Medicine [facility] Desk J3-[address] [place] [address] documented in this encounterSt. [facility] Hospital04-28-2025 Instructions* Patient Instructions* Tomy Hutton MD - 10/03/2024 1:30 PM EDT -blood work today -continue to follow with Dr. Mendoza and Dr. Valles -Whole body X-rays documented in this encounterSt. Vincent Hospital04-28-2025 NoteHNO ID: [id number] Author: JOSE MARIA PORTER MD Service: ? Author Type: Physician Type: Progress Notes Filed: 10/05/2024 14:20 Note Text: [facility] Plasma Cell Disorder [facility] Brandi Dalton JR [...] HISTORY OF repair carpal tunnel RT RENAL PAINTER AND DECORATOR STENT 06/2024 XCAPSL CTRC RMVL INSJ IO LENS PROSTH W/O ECP Left 06/08/2000 Cataract Extraction with PC IOL Parshour XCAPSL CTRC RMVL INSJ IO LENS PROSTH W/O ECP Right 09/07/2003 Cataract Extraction with PC IOL MARIVEL Allergies / intolerances ALLERGIES No Known Allergies Medications apixaban (ELIQUIS) 2.5 mg tab(s) Take 1 tablet by mouth two times a day. Yowinszhnqazo-Buprqefl-Nlnice (CENTRUM SILVER) tab Take 1 tablet by [...] no acute distress, well-hydrated, (more content not included)...[facility]04-28-[facility] History of Present illness Narrative* Tomy Hutton MD - 10/03/2024 1:00 PM EDT Images from the original note were not included. 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 Referred by Dr. Ariana Valles He has a significant medical history of CHF, HTN, Afib s/p DCCV 02/09/24, bilateral carpal tunnel, iron deficiency anemia, hypothyroid, presence of M protein He follows a regular diet and does not participates in regular exercise/activity. 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 Ivrlisekjgpkf-Uypstygs-Xyrtqw (CENTRUM SILVER) tab Take 1 tablet by [...] reviewed the Electrocardiogram, Laboratory Testing, and Echocardiogram. [facility] 10/03/2024 CONCLUSIONS: 1. Not Consistent with TTR [...] non-medical management as above. Toney Hutton MD [facility] Section Of Heart Failure and Cardiac Transplant Medicine Heart [facility] Desk J3-[address] [place] [address] documented in this encounterSt. Vincent Hospital04-28-2025 History of Present illness Narrative* Jose Maria Porter MD - 10/03/2024 1:00 PM EDT Images from the original note were not included. [facility] Plasma Cell Disorder Clinic Brandi Dalton JR [...] HISTORY OF repair carpal tunnel RT RENAL PAINTER AND DECORATOR STENT 06/2024 XCAPSL CTRC RMVL INSJ IO LENS PROSTH W/O ECP Left 06/08/2000 Cataract Extraction with PC IOL Parshour XCAPSL CTRC RMVL INSJ IO LENS PROSTH W/O ECP Right 09/07/2003 Cataract Extraction with PC IOL MARIVEL Allergies / intolerances ALLERGIES No Known Allergies Medications apixaban (ELIQUIS) 2.5 mg tab(s) Take 1 tablet by mouth two times a day. Wsszzjodseatj-Buapbqvl-Dmvuoi (CENTRUM SILVER) tab Take 1 tablet by [...] No results found for: MPROTCONCENT , MSPK24 [place] Free, Serum (mg/L) Date Value 09/20/2024 83.2 [...] CC: Dr. Ariana Valles. documented in this encounterSt. Vincent Hospital04-28-2025 NoteHNO ID: [id number] Author: TOMY HUTTON MD Service: ? 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 Referred by Dr. Ariana Valles He has a significant medical history of CHF, HTN, Afib s/p DCCV 02/09/24, bilateral carpal tunnel, iron deficiency anemia, hypothyroid, presence of M protein He follows a regular diet and does not participates in regular exercise/activity. 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 His symptoms have resolved since [facility]. PAST MEDICAL HISTORY Diagnosis Date Atrial [...] 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 Gmcffupgglflj-Zthajnpf-Umcrhk (CENTRUM SILVER) tab Take 1 tablet by [...] Heart Failure ) 87 (more content not included)...[facility]04-28-20[facility] History of Present illness Narrative* Ileana Valentino [...] PATIENT PRESENTS WITH AN IMPLANTABLE OR ATTACHED COMPUTER GRAPHICS ILLUSTRATOR: No CREATININE: Creatinine Date Value Ref Range [...] 724 PATIENT DISCHARGED TO: Ambulatory patient, left [place] department area. Is this a therapy: No A Diagnostic radioactive procedure has taken place, with no further precautions necessary other than routine body substance precautions. More information regarding radiation safety can be found usingthis link: [email or web address] SIGNATURE: Mary Nogueira PATIENT NAME: Brandi Dalton JR DATE: October 03, 2024 TIME: 7:26 AM PAGER/CONTACT #: documented in this encounterSt. Vincent Hospital04-28-2025 NoteHNO ID: [id number] Author: ILEANA VALENTINO Tech Service: ? Author [...] PATIENT PRESENTS WITH AN IMPLANTABLE OR ATTACHED COMPUTER GRAPHICS ILLUSTRATOR: No CREATININE: Creatinine Date Value Ref Range [...] October 03, 2024 TIME: 7:26 AM PAGER/CONTACT #:[facility]04-15-2025 Instructions * Patient Instructions* Ariana Valles MD [...] testing within the next few months. The javascript front end developer can assist with scheduling. - If you experience worsening symptoms, such as fatigue, shortness of breath, or signs of bleeding,please contact our office immediately. We will monitor your progress over the next 6 months to determine if the cardioversion remains effective. If you continue to do well, we may reassess the need for the procedure closer to the scheduled date. documented in this encounterSt. Vincent Hospital04-15-2025 History of Present illness Narrative* Ariana Valles MD - 09/20/2024 2:30 PM EDT Images from the original note were not included. [facility] Department of Cardiovascular Medicine SECTION OF CARDIAC PACING and ELECTROPHYSIOLOGY OUTPATIENT VISIT DATE September 20, 2024 OUTPATIENT VISIT TYPE ESTABLISHED PRIMARY CARE PHYSICIAN: Samantha Maya [address] [place] [address] REFERRING PHYSICIAN: No referring provider defined for [...] 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 Gsnegpjryrqvq-Zsmnmdff-Efulej (CENTRUM SILVER) tab Take 1 tablet by [...] mg, DAILY magnesium oxide 400 mg, DAILY Acrqurzvukfnb-Lwarwsgk-Xdzpnd (CENTRUM SILVER) tab 1 tablet, DAILY selenium [...] EKG: Sinus rhythm with first-degree AV block, [place] 236 ms. ASSESSMENT and PLAN: 1. Chronic [...] (G56.03) - amyloid workup as above 5. assisted (current) use of anticoagulants (Z79.01) Currently on [...] components of medical decision making. Recording using Navmii software for draft documentation of the visit was discussed with the patient/authorized dairy supplies sales representative; all questions welcomed and answered. Patient/authorized dairy supplies sales representative agreed to proceed A copy of this note will be provided to the requesting physician by way of shared Medical record. Thank you for our visit today; it's a privilege to be part of your care. Ariana Valles MD Staff Therapeutic Case Manager [phone] (Office and Appointments) [facility] [place] [address], Desk [address] [place] [address] documented in this encounterSt. Vincent Hospital04-15-2025 NoteHNO ID: [id number] Author: ARIANA VALLES MD Service: ? Author Type: Physician Type: Progress Notes Filed: 09/26/2024 16:45 Note Text: [facility] Department of Cardiovascular Medicine SECTION OF CARDIAC PACING and ELECTROPHYSIOLOGY OUTPATIENT VISIT DATE September 20, 2024 OUTPATIENT VISIT TYPE ESTABLISHED PRIMARY CARE PHYSICIAN: Samantha Maya [facility] [place] [address] REFERRING PHYSICIAN: No referring provider defined for [...] 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 Fntgaqdkyleif-Homfmary-Zjpkzy (CENTRUM SILVER) tab Take 1 tablet by [...] no carotid bruits, carotid (more content not included)...[facility]30[facility] Hospital Discharge instructions Patient Education 07/07/2024 11:02:34 [...] include: ?8 oz (237 mL) of milk, rzdghrl-crndjuveawva-wlvbz milk, and calcium- fortifiedfruit juice. Calcium-fortified means [...] ?Spinach (cooked), rhubarb, beets, sweet potatoes, and Burundian chard. ?Peanuts. ?Potato chips, cymro fries, and baked potatoes with skin on. ?Nuts and nut products. ?Chocolate. If you regularly take a diuretic medicine, make sure to eat at least 1 or 2 servings of fruits or vegetables that are high in potassium each day. These include: ?Avocado. ?Banana. ?[place], prune, carrot, or tomato juice. ?Baked potato. [...] magnesium, fish oil, or vitamin B6. Take ecsf-pin-ctqvdwg and prescription medicines only as told by [...] Casseroles. Pizza. Lasagna. Frozen meals. Potato chips. Gabonese fries. The items listed above may not [...] provider. Document Revised: 09/04/2022 Document Reviewed: 09/04/2022 [employer] Patient Education 2023 [employer]. Follow Up Care 06/27/2024 08:11:57 With:GEORGI TRUJILLO, MIKE, URL Address: When: Unknown [facility] 01-30-2025 NotePatient Education Nephrology Dietary Guidelines to [...] ? 8 oz (237 mL) of milk, qvzvwla-ypojdjkdwkzw-xfzbm milk, and calcium- fortifiedfruit juice. Calcium-fortified means [...] Spinach (cooked), rhubarb, beets, sweet potatoes, and Burundian chard. ? Peanuts. ? Potato chips, cymro fries, and baked potatoes with skin on. ? Nuts and nut products. ? Chocolate. ??? If you regularly take a diuretic medicine, make sure to eat at least 1 or 2 servings of fruits or vegetables that are high in potassium each day. These include: ? Avocado. ? Banana. ? [place], prune, carrot, or tomato juice. ? Baked [...] fish oil, or vitamin B6. ??? Take kreq-syq-tnxsyxt and prescription medicines only as told by your health (more content not included)...[facility]01-09-2025 Evaluation + Plan noteExtracted from:Title:MARIAH Post-operative Note - GeneralAuthor:Mark Ly Jr., DOate:06/16/24 Plan Transfer/Discharge: Transfer/Discharge Discharge when meets criteria ( From PACU to Ambulatory Surgery Unit, and To home ). Extracted from:Title:MARIAH Pre-operative Note - AdultAuthor:Mark Ly Jr., DOate:06/16/24 Plan [place] [employer] Anesthesi[employer] (ASA) physical status classification: Class III. Anesthetic Preoperative Plan: Anesthesia General.[facility] [id number] Hospital Discharge instructions Patient Education 06/16/2024 09:07:13 Zstm-Fzkf-io Utereroscopy,Lithotripsy, Stone Extraction, Stent Placement (CUSTOM) [facility] [place] [place] Dr. Kurtis Alegria Post-operative Instructions for [...] other reasons. If it is to remain jail, however, changes of the stent are required [...] arrange for your post-operative appointment (with XRAY) [phone] 06/16/2024 09:06:54 Post Op Patient Instructions - FT (CUSTOM) Follow Up Care 06/09/2024 10:34:06 With:MIKE SLADE Address:Unknown When: Unknown Comments:1-2 weeks to discuss TURP [facility] 01-09-2025 NoteProgress Note-Physician Patient: BRANDI DALTON JR Age: 83 years Sex: Male : 1940 Associated Diagnoses: None Author: Mark Ly Jr., DO Postoperative Information Postoperative disposition: Postoperative disposition: Home. Optimetrix number: Optimetrix number [id number]. Anesthetic utilized: General. Physical Examination Vital Signs [...] to Ambulatory Surgery Unit, and To home ).[facility]:Result Comment: Electronically Signed By: Mark Ly Jr., DO.jonathan\Date and Time Signed: 06/16/24 09:47 [id number] NotePatient Education - Text [facility] [place], [place] Dr. Kurtis Alegria Post-operative Instructions for [...] other reasons. 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 Procedure history: Lithotripsy (903925438). Cataract (604187247). Colectomy (91981553). Knee replacement (058291184). Hemorrhage (5290662256). Tonsillectomy (094883147). Social History Social & Psychosocial Habits Alcohol [...] Auto 66.3 % Lymph Auto 15.8 % Huron Auto 9.7 % Eos Auto 7.5 % Basophil Auto 0.7 % Neutro Absolute 4.4 E9/L Lymph Abs (more content not included)...[facility]Comment on above:Result Comment: Electronically Signed By: Mark Ly Jr., DO.jonathan\Date and Time Signed: 06/16/24 07:16 [id number] Hospital Discharge instructions Patient Education 06/09/2024 10:19:36 [...] including vitamins, herbs, eye drops, creams, and spno-zat-wlqgdqj medicines. Any problems you or family members [...] health care provider tells you to. Taking plzh-min-ruorarh medicines, vitamins, herbs, and supplements. General instructions [...] provider. Document Revised: 04/27/2023 Document Reviewed: 04/27/2023 [employer] Patient Education 2023 [employer]. Follow Up Care 06/03/2024 13:17:03 With:GEORGI TRUJILLO, MIKE, JASON Address: When: Unknown [facility] 01-02-2025 NotePatient Education Urology Ureteroscopy Ureteroscopy is [...] including vitamins, herbs, eye drops, creams, and twis-bgy-afsnykm medicines. ??? Any problems you or family [...] care provider tells you to. ??? Taking ownh-gdj-yzgmgzb medicines, vitamins, herbs, and supplements. General instructions [...] happens after the procedure? (more content not included)...[facility]12-17-2024 NoteHNO ID: [id number] Author: KENDRA MENDOZA MD Service: ? Author Type: Physician Type: Progress Notes Filed: 05/24/2024 17:30 Note Text: [facility] [place] [facility] SECTION OF HEART FAILURE and CARDIAC TRANSPLANT MEDICINE OUTPATIENT VISIT DATE May 24, 2024 OUTPATIENT VISIT TYPE Established Patient PRIMARY CARE PHYSICIAN: Samantha Maya [address] [place] [address] CHIEF COMPLAINT: HF f/u NURSING INTAKE (Patient?s [...] Take 5 mg by mouth once daily. Nlprrciozdabp-Pkxjovda-Dvxrzi (CENTRUM SILVER) tab Take 1 tablet by [...] displaced, S1, S2 normal (more content not included)...[facility]12-[facility] History of Present illness Narrative* Kendra Mendoza MD - 05/24/2024 9:14 AM EST Images from the original note were not included. [facility] SECTION OF HEART FAILURE and CARDIAC TRANSPLANT MEDICINE OUTPATIENT VISIT DATE May 24, 2024 OUTPATIENT VISIT TYPE Established Patient PRIMARY CARE PHYSICIAN: Samantha Maya [address] [place] [address] CHIEF COMPLAINT: HF f/u NURSING INTAKE (Patient [...] Take 5 mg by mouth once daily. Lrhfsadlnslek-Ieptkkyf-Jcegxi (CENTRUM SILVER) tab Take 1 tablet by [...] due to bradycardia post-cardioversion the B-tyron was dipgzqa22/2/24 and diuretics stopped due to hypotension. Eliquischanged [...] non-medical management as above. Kendra Mendoza MD [facility] Section Of Heart Failure and Cardiac Transplant Medicine Heart [facility] Desk J3-[address] [place] [address] Addendum: Labs Latest Ref Rng 05/24/2024 Glucose [...] (H) High (L) Low documented in this encounterSt. [facility]12-[facility]24 Telephone encounter Note * Telephone Encounter - Ian Hogue RN - 05/16/2024 5:10 PM EST Patient will need to meet with Ep physician who preforms Watcheileen (Dr Qureshi placed consult). Patient updated and provided scheduling number. Message also sent to schedulers. Ian Hogue RN [facility]12-09-2024 Miscellaneous Notes* Telephone Encounter - Ian Hogue RN - 05/16/2024 5:10 PM EST Patient will need to meet with Ep physician who preforms Watchman (Dr Qureshi placed consult). Patient updated and provided scheduling number. Message also sent to schedulers. Ian Hogue RN * Telephone Encounter - Georgia Cannon - 05/10/2024 10:35 AM EST May 10, 2024 Patient Contact Number: [phone] (home) [phone] (work) [phone] (cell) Patient last seen within the last [...] you, Georgia Cannon, Debbie documented in this encounterSt. [facility]12-[facility]-2024 Telephone encounter Note * Telephone Encounter - Georgia Cannon - 05/10/2024 10:35 AM EST May 10, 2024 Patient Contact Number: [phone] (home) [phone] (work) [phone] (cell) Patient last seen within the last [...] for scheduling. Thank you, Georgia Cannon, Admin [facility]12-02-2024 Instructions* Patient Instructions* Rd Qureshi MD [...] an ablation + watchman. documented in this encounterSt. [facility] Hospital12-[facility]-2024 History of Present illness Narrative* Rd Qureshi MD - 05/09/2024 10:45 AM EST Images from the original note were not included. [facility] Department of Cardiovascular Medicine TELEPHONE VISIT (audio [...] visit. 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 Yfrwntrxsgtuw-Gbaxttqm-Qvmitw (CENTRUM SILVER) tab Take 1 tablet by [...] 06, 2024 2:59 PM documented in this encounterSt. Vincent Hospital12-02-2024 NoteHNO ID: [id number] Author: RD QURESHI MD Service: ? Author Type: Physician Type: Progress Notes Filed: 05/09/2024 11:20 Note Text: [facility] Department of Cardiovascular Medicine TELEPHONE VISIT (audio [...] visit. 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 Nihlgeabujxqo-Gfjeurun-Sudzfh (CENTRUM SILVER) tab Take 1 tablet by [...] Cardioversion, Pre AF Ablation (more content not included)...[facility] Instructions * Patient Instructions* Compa Corcoran APRN.CNP - 03/18/2024 10:42 AM EDT -No medication changes today. -Please have blood work faxed to me when you get it done locally. -Follow-up with Dr. Mendoza on 05/24/2024 with labs and testing. documented in this encounterSt. Vincent Hospital10-11-2024 NoteHNO ID: [id number] Author: COMPA CORCORAN APRN.CNP Service: ? Author Type: Nurse Practitioner Type: Progress Notes Filed: 03/18/2024 16:06 Note Text: [facility] SECTION OF HEART FAILURE and CARDIAC TRANSPLANT MEDICINE OUTPATIENT VISIT DATE 03/18/2024 PRIMARY CARE PHYSICIAN: Samantha Maya [address] [place] [address] 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 Mendoza CHIEF COMPLAINT: Follow-up HISTORY OF [...] Take 40 mg by mouth once daily. Zhfefhlbpyaec-Plqnpkkw-Yaantk (CENTRUM SILVER) tab Take 1 tablet by [...] or cyanosis. Warm, peripheral (more content not included)...[facility] History of Present illness Narrative* Compa Corcoran APRN.GERIATRIC NURSE ASSISTANT - 03/18/2024 10:16 AM EDT Images from the original note were not included. [facility] SECTION OF HEART FAILURE and CARDIAC TRANSPLANT MEDICINE OUTPATIENT VISIT DATE 03/18/2024 PRIMARY CARE PHYSICIAN: Samantha Maya [address] [place] [address] 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 Mendoza CHIEF COMPLAINT: Follow-up HISTORY OF [...] Take 40 mg by mouth once daily. Ztrnxzasyhxso-Qteopesh-Ietqpd (CENTRUM SILVER) tab Take 1 tablet by [...] 99 mg/dL 92 105 R Comment: [employer] [place] [employer] (ADA) provides guidance for cutoff [...] Standards of Medical Care in Diabetes 2016, [place] [employer] Association. Diabetes Care. 2016.39(Suppl 1). BUN [...] not accurately reflect actual GFR. Resulting Agency [facility] Specimen Collected: 02/09/24 See EPIC for [...] no Other anti-HTN: no Device therapy: no, pala QRS: 116 ms Sleep apnea: no Anemia: [...] as above. Compa Corcoran MSN, ACNP-BC, CHFN, [facility] Section Of Heart Failure and Cardiac Transplant Medicine Heart and Vascular [place] [facility] Desk J3-[address] [place] [address] documented in this encounterSt. [facility]09[facility] Telephone encounter Note * Telephone Encounter [...] after stopping metoprolol Patient's spouse verbalized understanding. [facility] Miscellaneous Notes* Telephone Encounter - Marily [...] Name: Brandi Dalton JR Patient Contact Number: [phone] (home) [phone] (work) Date of last office visit: 02/04/2024 [...] days. Yes Cesar Womack documented in this encounterSt. [facility] Hospital09-[facility]24 Telephone encounter Note * Telephone Encounter - Cesar Womack - 02/16/2024 12:38 PM EDT February 16, 2024 Name: Brandi Dalton JR Patient Contact Number: [phone] (home) [phone] (work) Date of last office visit: 02/04/2024 [...] next three business days. Yes Cesar Womack [facility]09-03-2024 Nurse Note* Alexander Rodriguez, RN - [...] By Alexander Rodriguez RN In Department: CARDIOLOGY [facility]09-[facility] Nurse Note* Alexander Rodriguez RN - [...] RN In Department: CARDIOLOGY documented in this encounterSt. Vincent Hospital08-30-2024 Telephone encounter Note * Telephone Encounter - Marily Lange - 02/05/2024 9:36 AM EDT Completed in a separate encounter. [facility] Miscellaneous Notes* Telephone Encounter - Marily [...] or 02/09/24 Kendra Mendoza (Including my assistant professor surgical technology Marily Nazario to keep her informed) THANKS documented in this encounterSt. Vincent Hospital08-30-2024 History of Present illness Narrative* Shawanda [...] with Physician, nurse practitioner or Physician assistant professor surgical technology upon discharge Instructions for transmitting EKG to Monitoring Center 3 month follow up instructions Contact number for information and questions Patient Evaluation: Verbalizes understanding Follow Up Plan: Follow up as directed by MD. Supplemental Material Given: Written Material Instructed By Shawanda Vargas RN. In Department of CARDIOLOGY. documented in this encounterSt. Vincent Hospital08-30-2024 Telephone encounter Note * Telephone Encounter - Shawanda Vargas RN - 02/05/2024 8:[address] Mendoza requesting SHARON/DCC for 02/09/24. SHARON noted to be scheduled 02/08. DCC scheduled as requested.Patient's accepting date of 02/08. Shawanda Vargas RN [facility]08-30-2024 Miscellaneous Notes* Telephone Encounter - Shawanda Vargas RN - 02/05/2024 8:[address] Mendoza requesting SHARON/DCC for 02/09/24. SHARON noted to be scheduled 02/08. DCC scheduled as requested.Patient's accepting date of 02/08. Shawanda Vargas RN documented in this encounterSt. Vincent Hospital08-29-2024 Telephone encounter Note * Telephone Encounter - Kendra Mendoza MD - 02/04/2024 5:56 PM EDT please arrange SHARON with cardioversion for as soon as possible. Patient has been on eliquis 5 mg bid > 6 mo but has missed a few doses so SHARON is needed. Can youschedule for 02/05/24 or 02/09/24 Kendra Mendoza (Including my assistant professor surgical technology Marily Lange to keep her informed) THANKS [facility] History of Present illness Narrative* Kendra Mendoza MD - 02/04/2024 4:00 PM EDT Images from the original note were not included. 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 He saw Dr. Yeager in [place] who did not address shortness of breath [...] Take 50 mg by mouth once daily. Ugylsedvbdaiu-Ufbbloiu-Vrwloz (CENTRUM SILVER) tab Take 1 tablet by [...] HFrEF (LVEF 30%) and given IV diuretics. Cobb a little better but still has shortness [...] non-medical management as above. Kendra Mendoza MD [facility] Section Of Heart Failure and Cardiac Transplant Medicine Heart and Vascular [place] [facility] Desk J3-[address] [place] [address] documented in this encounterSt. Vincent Hospital07-19-2024 History of Present illness Narrative* Avelina [...] exam, discussion and plan. documented in this [facility] Work Phone: 1(988) 542-852607-19-2024 Instructions* Patient Instructions* Alycia Borrego LPN - [...] Provided instructions on exercise. [facility] Phone[facility] 1(483) 833-587706-09-2022 History of Present illness Narrative* Zulema Levin MD - 11/14/2021 9:50 AM EDT New patient to Dr. Levin Last seen with Dr. Alberto ([place]) who thought that the choroidal nevus left [...] components. Zulema Levin MD documented in this encounterSt. Vincent HospitalEvaluation + Plan note Future Appointments Appointment Date:06/16/2024 09:00:00 AM Scheduled Provider: Location:[facility] Appointment Type:Surgery FT [facility] evaluation + Plan note Future Appointments Appointment Date:07/07/2024 10:40:00 AM Scheduled Provider:MIKE SLADE MD Location: Appointment Type:URO Office Visit [facility] OYE!aluation + Plan note Future Appointments Appointment Date:01/02/2025 10:20:00 AM Scheduled Provider:MIKE SLADE MD Location: Appointment Type:URO Office Visit [facility] evaluation + Plan note Future Appointments Appointment Date:01/01/2026 11:20:00 AM Scheduled Provider:Blanca Vieira Location: Appointment Type:URO Office Visit [facility] evaluation note* Diagnosis 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 Epiretinal membrane (ERM) of both eyes documented in this encounter [facility] note* Diagnosis Paroxysmal atrial fibrillation (HCC)- [...] use of anticoagulants documented in this encounter [facility] note* Diagnosis Paroxysmal atrial fibrillation (HCC)- Primary Atrial fibrillation Persistent atrial fibrillation (HCC) Atrial fibrillation documented in this encounter [facility] note* Diagnosis Paroxysmal atrial fibrillation (HCC) Atrial fibrillation documented in this encounter [facility] note* Diagnosis Chronic systolic (congestive) heart failure (HCC)- Primary [facility]* Diagnosis Atrial fibrillation, persistent (HCC)- Primary Atrial fibrillation Typical atrial flutter (HCC) Atrial flutter [facility]* Diagnosis Gastrointestinal bleeding, lower- Primary Hemorrhage of gastrointestinal tract, unspecified Atrial fibrillation, persistent (HCC) Atrial fibrillation Atypical atrial flutter (HCC) Atrial flutter Typical atrial flutter (HCC) Atrial flutter [facility]* Diagnosis Essential hypertension, benign Left atrial dilation Cardiomegaly Mitral valve insufficiency, unspecified etiology Persistent atrial fibrillation with rapid ventricular response (Multi) High risk medication use Shortness of breath Former smoker Personal history of tobacco use, presenting hazards to health documented in this encounter [facility] Work Phone: Evaluation note* Diagnosis Chronic systolic (congestive) heart failure (HCC)- Primary [facility]* Diagnosis Chronic diastolic heart failure (HCC)- Primary Chronic diastolic heart failure Complex medical condition Typical atrial flutter (HCC) Atrial flutter Paroxysmal atrial fibrillation (HCC) Atrial fibrillation Essential hypertension, benign Cardiomyopathy, nonischemic (HCC) Other primary cardiomyopathies Other hyperlipidemia History of partial colectomy Chronic anticoagulation Long-term (current) use of anticoagulants 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* Diagnosis SOB (shortness of breath)- Primary Shortness of breath [facility]* Diagnosis Chronic diastolic heart failure (HCC) Chronic diastolic heart failure [facility]* Diagnosis Chronic diastolic heart failure (HCC)- Primary Chronic diastolic heart failure PAF (paroxysmal atrial fibrillation) (HCC) Atrial fibrillation Non-rheumatic mitral regurgitation Mitral valve disorders documented [facility]* Diagnosis Monoclonal gammopathy- Primary Monoclonal paraproteinemia [facility]* Diagnosis Chronic diastolic heart failure [...] benign Other hyperlipidemia [facility] PAF (paroxysmal atrial fibrillation) (HCC)- Primary Atrial fibrillation Atrial fibrillation, unspecified type (HCC) [facility] Narrative No data available for this section [facility] Hospital Discharge instructions No data available for this section [facility] Progress note No data available for this section [facility] Reason for referral (narrative)* Outpatient Procedure (Routine) - AuthorizedSpecialtyDiagnoses / ProceduresReferred By Contact Referred To [facility] Diagnoses Paroxysmal atrial fibrillation (HCC) Procedures ECG COMPLETE ECG ROUTINE ECG W/LEAST 12 LDS W/I&R Arsen Talavera MD [address] [place] [address] Heart [facility] [place] [address] [place] [address] Referral IDStatusReasonStart DateExpiration DateVisits RequestedVisits [id number] Auto-Generated Referral [facility] for referral (narrative)* Consultation (Routine) - AuthorizedSpecialtyDiagnoses / ProceduresReferred By ContactReferred To ContactCardiology Diagnoses High risk medication use Avelina Chowdhury MD [address] [facility] 2, [address] [address] [place] [address] [place] [address] Referral IDStatusTanyaasonStart DateExpiration DateVisits RequestedVisits [id number] Specialty Services Required * Consultation (Routine) - AuthorizedSpecialtyDiagnoses / ProceduresReferred By ContactReferred To ContactCardiology Diagnoses Essential hypertension, benign Procedures Follow Up In Cardiology Avelina Chowdhury MD [address] [facility] [address], [address] [place] [address] Avelina Chowdhury MD [address] [facility] [address], [address] [place] [address] Referral IDStatRajiasonStart DateExpiration DateVisits RequestedVisits [id number] * CV Imaging (Routine) - AuthorizedSpecialtyDiagnoses / ProceduresReferred By ContactReferred To ContactCardiology Diagnoses Left atrial dilation Mitral valve insufficiency, unspecified etiology Procedures Transthoracic Echo Complete [place] ECHO TTHRC R-T 2D W/WOM-MODE COMPL SPEC&COLR D Avelina Chowdhury MD [address] [facility], [address] [place] [address] Referral IDStaEverradha DateExpiration DateVisits RequestedVisits [id number] Perform Procedure * Cardiovascular (Routine) - AuthorizedSpecialtyDiagnoses / ProceduresReferred By ContactReferred To Contact Diagnoses Persistent atrial fibrillation with rapid ventricular response (Multi) Procedures ECG 12 Lead Avelina Chowdhury MD [address] [facility] 2, [address] [place] [address] Referral IDStatusReasonStart DateExpiration DateVisits RequestedVisits [id number]/19/20247/ [facility] Work Phone: Reason for referral (narrative)* Outpatient Procedure (Routine) - AuthorizedSpecialtyDiagnoses / ProceduresReferred By Contact Referred To [facility] [place] Diagnoses Chronic diastolic heart failure (HCC) Procedures ECHO ECHO TTHRC R-T 2D W/WOM-MODE COMPL SPEC&COLR D Kendra Mendoza MD [address] [place] [address] [facility] [place] [address] Ref[facility]Stat[facility] DateExpiration DateVisits RequestedVisits [id number] Auto-Generated Referral * Transition of Care (Routine) - AuthorizedSpecialtyDiagnoses / Procedures Referred By ContactReferred To [facility] Procedures CARDIOVASCULAR MEDICINE OP FOLLOW UP APPT ORDER Kendra Mendoza MD [address] [place] [address] [place] [address] Referral IDStatTanyaBibb Medical Center DateExpiration DateVisits RequestedVisits [id number] PCP Requested Referral [facility]Reason for [facility] (narrative)* Transition of Care (Routine) - AuthorizedSpecialtyDiagnoses / ProceduresReferred By ContactReferred To Contact[facility] Procedures CARDIOVASCULAR MEDICINE OP [place] [address] [place] [address] Phone: tel: fax: [place] [address] Ref[facility]Status[facility] DateExpiration DateVisits RequestedVisits [id number] PCP Requested Referral [facility] for visit Narrative* Outpatient Procedure (Routine) - ClosedSpecialtyDiagnoses / ProceduresReferred By ContactReferred To Contact [facility] Diagnoses Paroxysmal atrial fibrillation (HCC) Procedures ECHO TRANSESOPHAGEAL ECHO TRANSESOPHAG R-T 2D W/PRB IMG CYRUS I&R Kendra Mendoza MD [address] [place] [address] [place] [address] Referral IDStatusHen[facility] DateExpiration DateVisits RequestedVisits [id number] Auto-Generated Referral / [facility] for visit Narrative* Diagnostic Procedure Only (Routine) - ClosedSpecialtyDiagnoses / ProceduresReferred By ContactReferred To Contact [facility] Diagnoses Chronic diastolic heart failure (HCC) Procedures NM SPECT/CT CARDIAC AMYLOID RP LOCLZJ BRINDA SPECT W/CT 1 AREA 1 DAY IMAGING rAiana Valles MD [address] [id number] Phone: tel: fax: Molecular Imaging [address] [phone] Phone: tel: Referral IDStatusReasonStart DateExpiration DateVisits RequestedVisits [id number] Auto-Generated Referral [facility] Summary Purpose Family History No Family [...] stopping the medication. * Reviewed with Genevieve Negreet RN * TO Dr. Avelina Chowdhury MD Reason for Referral SpecialtyDiagnoses / ProceduresReferred By ContactReferred To [facility] Procedures CARDIOVASCULAR MEDICINE OP FOLLOW UP APPT ORDER Kendra Mendoza MD [address] [place] [address] [facility] [address] [address] Referral IDStatusReBibb Medical Center DateExpiration DateVisits RequestedVisits [id number] Not Required PCP Requested Referral [id number] / ProceduresReferred By ContactReferred To [facility] Diagnoses Paroxysmal atrial fibrillation (HCC) Procedures CONSULT TO ELECTROPHYSIOLOGY OFFICE/OUTPATIENT [facility] 60 MINUTES Kendra Mendoza MD [address] [place] [address] Referral IDStatusHen[facility] DateExpiration DateVisits RequestedVisits [id number] PCP Requested Referral [id number] / ProceduresReferred By ContactReferred To [facility] Diagnoses Paroxysmal atrial fibrillation (HCC) Chronic systolic (congestive) heart failure (HCC) Procedures ECHO ECHO TTHRC R-T 2D W/WOM-MODE COMPL SPEC&COLR D Kendra Mendoza MD [address] [place] [address] [place] [address] Referral IDStatusReasonStart DateExpiration DateVisits RequestedVisits [id number] Request Auto-Generated Referral [id number] / ProceduresReferred By ContactReferred To [facility] Diagnoses Paroxysmal atrial fibrillation (HCC) Procedures ECHO TRANSESOPHAGEAL ECHO TRANSESOPHAG R-T 2D W/PRB IMG CYRUS I&R Kendra Mendoza MD [address] [place] [address] [place] [address] Referral IDStatusReasonStart DateExpiration DateVisits RequestedVisits [id number] Request Auto-Generated Referral [id number] / ProceduresReferred By ContactReferred To [facility] Diagnoses Atrial fibrillation, persistent (HCC) Typical atrial flutter (HCC) Procedures CARDIOVASCULAR MEDICINE OP FOLLOW UP APPT ORDER Rd Qureshi MD [address] [place] [address] [place] [address] Referral IDStatusReasonStardmore DateExpiration DateVisits RequestedVisits [id number] Not Required PCP Requested Referral [id number] / ProceduresReferred By ContactReferred To ContactCardiology / CARDIOVASCULAR MEDICINE Diagnoses Gastrointestinal bleeding, lower Atrial fibrillation, persistent (HCC) Atypical atrial flutter (HCC) Procedures CONSULT TO ELECTROPHYSIOLOGY OFFICE/OUTPATIENT [facility] [address] Qureshi MD [address] [place] [address] Card [facility] [address] [place] [address] Referral IDStatusReasonStart DateExpiration DateVisits RequestedVisits [id number] PCP Requested Referral Additional Source Comments Source Comments (unrecognize d section and content) In the event this informatio n is protected by the Federal Confidentiality of Alcohol and Drug Abuse Patient Records regulations: The Federal rules restrict any use of the information to criminally investigate or prosecute any alcohol or drug abuse patient.[facility] HospitalIn the event this information is protected by the Federal Confidentiality of Alcohol and Drug Abuse Patient Records regulations: The Federal rules restrict any use of the information to criminally investigate or prosecute any alcohol or drug abuse patient.[facility] HospitalIn the event this information is protected by the Federal Confidentiality of Alcohol and Drug Abuse Patient Records regulations: The Federal rules restrict any use of the information to criminally investigate or prosecute any alcohol or drug abuse patient.[facility] HospitalIn the event this information is protected by the Federal Confidentiality of Alcohol and Drug Abuse Patient Records regulations: The Federal rules restrict any use of the information to criminally investigate or prosecute any alcohol or drug abuse patient.[facility] HospitalIn the event this information is protected by the Federal Confidentiality of Alcohol and Drug Abuse Patient Records regulations: The Federal rules restrict any use of the information to criminally investigate or prosecute any alcohol or drug abuse patient.[facility] HospitalIn the event this information is protected by the Federal Confidentiality of Alcohol and Drug Abuse Patient Records regulations: The Federal rules restrict any use of the information to criminally investigate or prosecute any alcohol or drug abuse patient.[facility] HospitalIn the event this information is protected by the Federal Confidentiality of Alcohol and Drug Abuse Patient Records regulations: The Federal rules restrict any use of the information to criminally investigate or prosecute any alcohol or drug abuse patient.[facility] HospitalIn the event this information is protected by the Federal Confidentiality of Alcohol and Drug Abuse Patient Records regulations: The Federal rules restrict any use of the information to criminally investigate or prosecute any alcohol or drug abuse patient.[facility] HospitalIn the event this information is protected by the Federal Confidentiality of Alcohol and Drug Abuse Patient Records regulations: The Federal rules restrict any use of the information to criminally investigate or prosecute any alcohol or drug abuse patient.[facility] HospitalIn the event this information is protected by the Federal Confidentiality of Alcohol and Drug Abuse Patient Records regulations: The Federal rules restrict any use of the information to criminally investigate or prosecute any alcohol or drug abuse patient.[facility] HospitalIn the event this information is protected by the Federal Confidentiality of Alcohol and Drug Abuse Patient Records regulations: The Federal rules restrict any use of the information to criminally investigate or prosecute any alcohol or drug abuse patient.[facility] HospitalIn the event this information is protected by the Federal Confidentiality of Alcohol and Drug Abuse Patient Records regulations: The Federal rules restrict any use of the information to criminally investigate or prosecute any alcohol or drug abuse patient.[facility] HospitalIn the event this information is protected by the Federal Confidentiality of Alcohol and Drug Abuse Patient Records regulations: The Federal rules restrict any use of the information to criminally investigate or prosecute any alcohol or drug abuse patient.[facility] HospitalIn the event this information is protected by the Federal Confidentiality of Alcohol and Drug Abuse Patient Records regulations: The Federal rules restrict any use of the information to criminally investigate or prosecute any alcohol or drug abuse patient.[facility] HospitalIn the event this information is protected by the Federal Confidentiality of Alcohol and Drug Abuse Patient Records regulations: The Federal rules restrict any use of the information to criminally investigate or prosecute any alcohol or drug abuse patient.[facility] HospitalIn the event this information is protected by the Federal Confidentiality of Alcohol and Drug Abuse Patient Records regulations: The Federal rules restrict any use of the information to criminally investigate or prosecute any alcohol or drug abuse patient.[facility] HospitalIn the event this information is protected by the Federal Confidentiality of Alcohol and Drug Abuse Patient Records regulations: The Federal rules restrict any use of the information to criminally investigate or prosecute any alcohol or drug abuse patient.[facility] HospitalIn the event this information is protected by the Federal Confidentiality of Alcohol and Drug Abuse Patient Records regulations: The Federal rules restrict any use of the information to criminally investigate or prosecute any alcohol or drug abuse patient.[facility] HospitalIn the event this information is protected by the Federal Confidentiality of Alcohol and Drug Abuse Patient Records regulations: The Federal rules restrict any use of the information to criminally investigate or prosecute any alcohol or drug abuse patient.[facility] HospitalIn the event this information is protected by the Federal Confidentiality of Alcohol and Drug Abuse Patient Records regulations: The Federal rules restrict any use of the information to criminally investigate or prosecute any alcohol or drug abuse patient.[facility] HospitalIn the event this information is protected by the Federal Confidentiality of Alcohol and Drug Abuse Patient Records regulations: The Federal rules restrict any use of the information to criminally investigate or prosecute any alcohol or drug abuse patient.[facility] HospitalIn the event this information is protected by the Federal Confidentiality of Alcohol and Drug Abuse Patient Records regulations: The Federal rules restrict any use of the information to criminally investigate or prosecute any alcohol or drug abuse patient.[facility] HospitalIn the event this information is protected by the Federal Confidentiality of Alcohol and Drug Abuse Patient Records regulations: The Federal rules restrict any use of the information to criminally investigate or prosecute any alcohol or drug abuse patient.[facility] Reason for Visit (unrecogniz ed section and content) ReasonCommentsEpiretinal Membrane Follow UpOUChoroidal nevus of left eyeReason CommentsConsultReasonCommentsPatient EducationEPS- SHARON/DCCReasonComments AppointmentEPS- SHARON/DCCReasonCommentsFollow UpSpecialtyDiagnoses / Procedures Referred By ContactReferred To [facility] [place] Procedures CARDIOVASCULAR MEDICINE OP [place] [address] [place] [address] [facility] [address] [address] Referral IDStatusReasonStart DateExpiration DateVisits RequestedVisits [id number] Not Required PCP Requested Referral 1ReasonOnset DateCommentsAtrial Xqbtuirmutoc36/02/2024Reason Onset DateCommentsAtrial Vnuemcrfvpgl96/09/2024ReasonCommentsPatient Update ProceduresReasonCommentsFollow-upPER HMI Increased SOB, Dry CoughSpecialty Diagnoses / ProceduresReferred By ContactReferred To Contact Diagnoses Persistent atrial fibrillation with rapid ventricular response (Multi) Procedures ECG 12 Lead Avelina Chowdhury MD [address] [facility] 2, [facility] [address] [place] [address] Referral IDStatus[facility] DateExpiration DateVisits RequestedVisits [id number]/19/[id number]/19/[id number] UpReason Onset DateCommentsAtrial Igdkenfwvfug80/21/2025ReasonCommentsRadiology NM SpecialtyDiagnoses / ProceduresReferred By ContactReferred To ContactMOLECULAR & FUNCTIONAL IMAGING Diagnoses Chronic diastolic heart failure (HCC) Procedures NM SPECT/CT CARDIAC AMYLOID RP LOCLZJ BRINDA SPECT W/CT 1 AREA 1 DAY IMAGING Ariana Valles MD [address] [place] [phone] Phone: tel: fax: Molecular Imaging [address] [phone] Phone: tel: Referral IDStatusReasonStart DateExpiration DateVisits RequestedVisits [id number] Auto-Generated Referral /[id number]edoobOzlqrvdhx / ProceduresReferred By ContactReferred To [facility] [place] Procedures CARDIOVASCULAR MEDICINE OP FOLLOW UP APPT ORDER Kendra Mendoza MD [address] [place] [address] Phone: tel: fax: [facility] [address] [place] [address] Referral IDStatusReasonStart DateExpiration DateVisits RequestedVisits [id number] PCP Requested Referral /[id number] SurgeryPVI ablation+ Watchman implant Care Teams (unrecognized sec tion and content) Team MemberRelationshipSpecialtyStart DateEnd [facility] Levi Dumont [address] [phone] PCP - General09/11/03Team MemberRelationshipSpecialtyStart DateEnd [facility] Levi Dumont [address] [phone] PCP - General09/11/03Team MemberRelationshipSpecialtyStart DateEnd Date Samantha Maya MD [address] [place] [address] PCP - GeneralFa[facility]02/05/24Team MemberRelationshipSpecialtyStart DateEnd Date Samantha Maya MD [address] [place] [facility] [place] [place] [address] PCP - GeneralFamily Medicine02/05/24Team MemberRelationshipSpecialtyStart DateEnd Date Samantha Maya MD [address] [place] [facility] [place] [place] [address] PCP - GeneralFamily Medicine02/05/24Team MemberRelationshipSpecialtyStart DateEnd Date Samantha Maya MD [address] [place] [facility] [place] [place] [address] PCP - GeneralFamily Medicine02/05/24Team MemberRelationshipSpecialtyStart DateEnd Date Samantha Maya MD [address] [place] [facility] [place] [place] [address] PCP - GeneralFamily Medicine02/05/24Team MemberRelationshipSpecialtyStart DateEnd Date Levi Dumont [address] [phone] PCP - General/ Samantha Maya MD [address] [place] [facility] [place] [place] [address] PCP - GeneralFamily Medicine02/05/24Team MemberRelationshipSpecialtyStart DateEnd Date Samantha Maya MD [address] [place] [facility] [place] [place] [address] PCP - GeneralFamily Medicine02/05/24Team MemberRelationshipSpecialtyStart DateEnd Date Samantha Maya MD [address] [place] [facility] [place] [place] [address] PCP - GeneralFamily Medicine02/05/24Team MemberRelationshipSpecialtyStart DateEnd Date Samantha Maya MD [address] [place] [address] PCP - GeneralFamily Medicine02/05/24Team MemberRelationshipSpecialtyStart DateEnd Date Samantha Maya MD [address] [facility] [place] [address] PCP - Xzjwgbo43/12/15Team MemberRelationshipSpecialtyStart DateEnd Date Samantha Maya MD [address] [place] [address] PCP - GeneralFamily Medicine02/05/24Team MemberRelationshipSpecialtyStart DateEnd Date Samantha Maya MD [address] [place] [address] PCP - GeneralFamily Medicine02/05/24Team MemberRelationshipSpecialtyStart DateEnd Date Samantha Maya MD [address] [place] [address] PCP - GeneralFamily Medicine02/05/24Team MemberRelationshipSpecialtyStart DateEnd Date Samantha Maya MD [address] [place] [facility] [place] [address] PCP - GeneralFamily Medicine02/05/24Team MemberRelationshipSpecialtyStart DateEnd Date Samantha Maya MD [address] [place] [address] PCP - Generalmily Medicine02/05/24Te MemberRelationshipSpecialtyStart DateEnd Date Samantha Maya MD [address] [place] [address] PCP - [facility]02/05/24Team MemberRelationshipSpecialtyStart DateEnd Date Samantha Maya MD [address] [place] [address] PCP - [facility] Medicine02/05/24 [place] [address] [place] [address] Specialty Care CoordinatorHematology/Oncology10/06/24Team MemberRelationship SpecialtyStart DateEnd Date Samantha Maya MD [address] [place] [address] [facility]02/05/24 Daisy Jaramillo, DARRIAN [address] [place] [address] Specialty Care CoordinatorHematology/Oncology10/06/24Team MemberRelationship SpecialtyStart DateEnd Date Samantha Maya MD [address] [place] [address] PCP - GeneralFami Medicine02/05/24 [place] [address] [place] [address] Specialty Care CoordinatorHematology/Oncology10/06/24 (unrecognized sect ion and content) No Status Records FoundNo Status Records FoundNo Status Records FoundNo Status Records FoundNo Status Records FoundNo Status Records FoundNo Status Records FoundNo Status Records FoundNo Status Records FoundNo Status Records FoundNo Status Records FoundNo Status Records FoundNo Status Records FoundNo Status Records Found INFORMATION SOURCE (unrecogn ized section and content) DATE CREATED AUTHOR 09/22/2022 [facility] DATE CREATED AUTHOR AUTHOR'S ORGANIZ ATION 11/16/2022 [facility] DATE CREATED AUTHOR AUTHOR'S ORGANIZ ATION 12/02/2022 [facility] DATE CREATED AUTHOR AUTHOR'S ORGANIZ ATION 01/29/2023 [facility] DATE CREATED AUTHOR AUTHOR'S ORGANIZ ATION 01/04/2024 [facility] DATE CREATED AUTHOR AUTHOR'S ORGANIZ ATION 01/13/2024 [facility] DATE CREATED AUTHOR AUTHOR'S ORGANIZ ATION 02/03/[address] [facility] DATE CREATED AUTHOR AUTHOR'S ORGANIZ ATION 06/10/2024 [facility] DATE CREATED AUTHOR AUTHOR'S ORGANIZ ATION 06/16/2024 [facility] DATE CREATED AUTHOR AUTHOR'S ORGANIZ ATION 01/04/2025 [facility] DATE CREATED AUTHOR AUTHOR'S ORGANIZ ATION 03/13/2025 [facility] FOR RECORDS PERTAINING TO PATIENTS WHO ARE [...] BE BASED ON THE PRIMARY CLINICAL RECORDS. [facility] [employer] [facility]. provides no warranty or guarantee of the accuracy or completeness of information in this document.
== END 2025-04-25 11:12 | disposition home or self-care (01) ==
LOC: LAB 11:14
PROVIDERS: PCP Family Medicine; Visit Provider Family Medicine
DX: R77.8 Other specified abnormalities of plasma proteins (principal)
CPT/HCPCS: 36415; 84484

== ENCOUNTER 2025-05-13 03:11 | Emergency (ER) | payer MEDICARE, OTHER, SELFPAY ==
[2025-05-13] VITALS (36 sets, daily range): BP systolic 137–192; BP diastolic 66–126; PULSE 53–85; TEMP 36.6; O2SAT 88–99; BMI 26.6
--- NOTE | 2025-05-13 03:22 | ECG_ITS ---
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 Measurements Intervals [place] Rate: 80 P: 257 WV: 272 QRS: 76 QRSD: 106 T: 61 QT: 374 QTc: 410 Interpretive Statements SINUS RHYTHM with ventricular premature complexes [address] block ST depression, possible subendocardial injury 9150 abnormal ECG Compared to ECG 12/29/2023 17:32:59 Ventricular premature complex(es) now present First degree AV block now present Atrial fibrillation no longer present ST (T wave) deviation still present Electronically Signed On 05-13-2025 15:14:21 EST by DIEGO LONGORIA M.D.
--- NOTE | 2025-05-13 03:49 | XR_ITS ---
[place] [id number] Patient Name: BRANDI RAHMAN MRN: [id number] date: 1940 Sex: M Assigned Patient Location: ED.MAIN Current Patient Location: ED.MAIN Accession/Order Number: [id number] Exam Date: 05/13/2025 03:58 Report Date: 05/13/2025 08:22 At the request of: ANTHONY LUI MD Procedure: XR chest 1V PA CHEST: CLINICAL HISTORY: short of breath COMPARISON: Chest x-ray 12/29/2023 FINDINGS: Stable enlarged cardiomediastinal silhouette. Lungs clear. No effusion or pneumothorax. Degenerative changes right greater than left shoulder. XR/XR chest 1V IMPRESSION: CARDIOMEGALY. NEGATIVE ACUTE PLEURAL-PARENCHYMAL DISEASE. Impression dictated by: Ye Lyman M.D. 05/13/2025 8:22 AM Dictation Location: [place] [address] Electronically authenticated by: [id number] Y Date: 05/13/2025 08:22
--- NOTE | 2025-05-13 03:50 | ED.SOB1 ---
HPI - SOB/Dyspnea General Chief Complaint: Shortness of Breath/Dyspnea Stated Complaint: COUGH/SOB Time Seen by Provider: 05/13/25 03:41 Source: patient Mode of arrival: walk-in Limitations: no limitations History of Present Illness HPI Narrative: patient presents complaining of cough for the past week. Short of breath over the past 2-3 days. chest pain with cough . No fever. No abdominal pain. Has past history of A. fib . Denies history of CAD or CHF. Related Data Home Medications ?Medication ?Instructions ?Recorded ?Confirmed acetaminophen 650 mg 650 mg PO Q8H PRN pain 12/29/23 12/29/23 tablet,extended release apixaban 5 mg tablet (Eliquis) 2.5 mg PO BID 12/29/23 05/13/25 ascorbic acid (vitamin C) 1,000 mg 1 g PO DAILY 12/29/23 05/13/25 tablet (C-1000) calcium 600 mg (as 1 tab PO DAILY 12/29/23 05/13/25 carbonate)-vitamin D3 5 mcg (200 unit) tablet indapamide 1.25 mg tablet 1.25 mg PO DAILY 12/29/23 12/29/23 magnesium 400 mg PO DAILY 12/29/23 05/13/25 metoprolol succinate 50 mg 50 mg PO DAILY 12/29/23 06/01/24 tablet,extended release 24 hr saw palmetto 450 mg capsule 450 mg PO DAILY 12/29/23 05/13/25 selenium 200 mcg capsule 200 mcg PO Q24H 12/29/23 05/13/25 amoxicillin 500 mg capsule mg 06/01/24 acetaminophen 650 mg 1,300 mg PO Q12H 05/13/25 05/13/25 tablet,extended release (Arthritis Pain Relief (acetaminophen) ER) lvvyfsmkqlru-djhtpasy-xvigdo 1 tab PO DAILY 05/13/25 05/13/25 Previous Rx's ?Medication ?Instructions ?Recorded isosorbide mononitrate 30 mg 30 mg PO QAM #30 tabs 12/30/23 tablet,extended release 24 hr lisinopril 5 mg tablet 5 mg PO QD #30 tabs 12/30/23 ondansetron 4 mg disintegrating 4 mg PO DAILY PRN nausea and 06/01/24 tablet vomiting #15 tabs oxycodone-acetaminophen 5 mg-325 1 tab PO Q6H PRN pain #14 tabs 06/01/24 mg tablet (Percocet) Allergies Allergy/AdvReac Type Severity Reaction Status Date / Time No Known Drug Allergies Allergy Verified 05/13/25 03:30 Review of Systems ROS Status of ROS 10 or more systems reviewed and unremarkable except as noted in history and below [facility] Medical History (Updated 05/13/25 @ 05:25 by Walter Moreno MD) Atrial fibrillation ?I48.91 - Unspecified atrial fibrillation (ICD-10) MOYA (dyspnea on exertion) ?R06.09 - Other forms of dyspnea (ICD-10) Congestive heart failure ?I50.9 - Heart failure, unspecified (ICD-10) Normal colonoscopy Lower GI bleed ?K92.2 - Gastrointestinal hemorrhage, unspecified (ICD-10) Carpal tunnel syndrome ?G56.00 - Carpal tunnel syndrome, unspecified upper limb (ICD-10) 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 - Acute infarction of intestine, part and extent unspecified (ICD-10) Ischemic colitis ?K55.9 - Vascular disorder of intestine, unspecified (ICD-10) GI hemorrhage ?K92.2 - Gastrointestinal hemorrhage, unspecified (ICD-10) Kidney stone ?N20.0 - Calculus of kidney (ICD-10) Strain of left triceps tendon ?S46.312A - Strain of muscle, fascia and tendon of triceps, left arm, initial encounter (ICD-10) Patellar tendonitis of left knee ?M76.52 - Patellar tendinitis, left knee (ICD-10) Mitral valve prolapse ?I34.1 - Nonrheumatic mitral (valve) prolapse (ICD-10) Afib ?I48.91 - Unspecified atrial fibrillation (ICD-10) HTN (hypertension) ?I10 - Essential (primary) hypertension (ICD-10) Surgical History (Updated 12/29/23 @ 20:31 by Marla Metz RN) History of total left knee replacement ?Z96.652 - Presence of left artificial knee joint (ICD-10) History of total right knee replacement ?Z96.651 - Presence of right artificial knee joint (ICD-10) Hx of colectomy ?Z90.49 - Acquired absence of other specified parts of digestive tract (ICD-10) History of lithotripsy ?Z98.890 - Other specified postprocedural states (ICD-10) History of cataract surgery ?Z98.49 - Cataract extraction status, unspecified eye (ICD-10) Hx of right heart catheterization ?Z98.890 - Other specified postprocedural states (ICD-10) Hx of tonsillectomy ?Z90.89 - Acquired absence of other organs (ICD-10) Social History Highest level of school completed/degree received: high school graduate Little interest or pleasure in doing things: not at all Feeling down, depressed, or hopeless: not at all Do you think of yourself as: straight/heterosexual Gender Identity: male Exam Constitutional Vital Signs, click to edit/add: Last Vital Signs Temp 97.9 F 05/13/25 03:24 Pulse 59 L 05/13/25 05:00 Resp 16 05/13/25 05:00 BP 154/83 H 05/13/25 05:00 Pulse Ox 95 05/13/25 05:00 O2 Del Method Nasal Cannula 05/13/25 03:54 O2 Flow Rate 2 05/13/25 03:54 Common normals: no apparent distress, average body habitus, oriented x3, no limitations, healthy appearing, alert and well nourished [facility] Common normals: normocephalic and head/scalp atraumatic Eye Common normals: EOMs intact bilaterally and conjunctivae normal Respiratory Common normals: normal respiratory effort, no retractions and no use of accessory muscles Effort & inspection: audible wheezes Cardio Common normals: S1 normal heart sound and S2 normal heart sound Rhythm: abnormal rhythm GI Common normals: Normal to inspection, nondistended, normoactive bowel sounds present, soft to palpation and non-tender Extremity Common normals: normal to inspection and full ROM Neuro Common normals: oriented x3, CN's II-XII intact bilaterally and moves all extremities Psych Appearance: grossly normal Course Vital Signs Vital signs: Vital Signs Pulse Oximetry 91 L 05/13/25 03:18 Temperature 97.9 F 05/13/25 03:24 Pulse Rate 59 L 05/13/25 05:00 Respiratory Rate 16 05/13/25 05:00 Blood Pressure 154/83 H 05/13/25 05:00 Pulse Oximetry 95 05/13/25 05:00 Oxygen Delivery Method Nasal Cannula 05/13/25 03:54 Oxygen Delivery Flow Rate 2 05/13/25 03:54 MDM - SOB/Dyspnea MDM Narrative Medical decision making narrative: patient presents complaining of a cough for the past week. Short of breath the past 2-3 days. poor historian. No fever. Has chest pain with cough. No nausea or vomiting. RA pulse ox 88% . Cxray poor inspiratory film with ? atelectasis or early infiltrate right lower lobe. He is afebrile and has normal WBC at 5.4. Troponin elevated at 123. BNP WNL. EKG NSR with first degree AV block and ST depression II, III, aVf adn V4-6. Patient informed of the above. [facility] Patient accepted for transfer by Hospitalist who request patient receive a dose of ASA. Patient and informed of the plan to transfer Lab Data Labs: Lab Results 05/13/25 05/13/25 Range/Units 03:45 03:46 WBC 5.4 (4.0-11.0) 10^3/uL RBC 3.59 L (4.70-6.10) 10^6/uL Hgb 12.9 L (14.0-18.0) g/dL Hct 37.2 L (42.0-54.0) % MCV 103.6 H (80.0-94.0) fL MCH 35.9 H (25.9-34.0) pg MCHC 34.7 (29.9-35.2) g/dL RDW 13.5 (11.0-15.0) % Plt Count 186 (150-450) 10^3/uL MPV 9.6 (9.5-13.5) fL Neut % (Auto) 59.6 (43.0-75.0) % Lymph % (Auto) 20.6 (20.5-60.0) % [place] % (Auto) 11.4 (1.7-12.0) % Eos % (Auto) 7.3 H (0.9-7.0) % Baso % (Auto) 0.9 (0.2-2.0) % Neut # (Auto) 3.2 (1.4-6.5) 10^3/uL Lymph # (Auto) 1.1 L (1.2-3.8) 10^3/uL [place] # (Auto) 0.6 (0.3-0.8) 10^3/uL Eos # (Auto) 0.4 (0.0-0.7) 10^3/uL Baso # (Auto) 0.1 (0.0-0.1) 10^3/uL Abs Immat Gran (auto) 0.01 (0.00-0.03) 10^3/uL Imm/Tot Granulo (auto) 0.2 (0.0-0.5) % Sodium 142 (136-145) mmol/L Potassium 4.0 (3.5-5.1) mmol/L Chloride 103 (98-107) mmol/L Carbon Dioxide 33.4 H (21.0-32.0) mmol/L Anion Gap 9.6 BUN 25.0 H (7.0-18.0) mg/dL Creatinine 1.27 (0.70-1.30) mg/dL Est GFR ( Amer) >60 (>=60 mL/min/1.73m^2) Est GFR (Non-Af Amer) 54 L (>=60 mL/min/1.73m^2) BUN/Creatinine Ratio 19.7 Glucose 98 (74-106) mg/dL Calcium 8.9 (8.5-10.1) mg/dL Troponin I High Sens 123.9 H* (4.0-76.1) pg/mL NT-Pro-B Natriuret Pep 712.0 (<=1800.0) pg/mL Influenza Type A Ag Negative Influenza Type B Ag Negative SARS-CoV-2 Ag (CV2AG) Negative (NEGATIVE) Discharge Plan Discharge Chief Complaint: Shortness of Breath/Dyspnea Clinical Impression: Hypoxemia Patient Disposition: [facility]
[2025-05-13] MEDS: ALBUTEROL SULFATE 2.5 MG/3 ML VIAL NEB IH (03:52)
--- OUTSIDE RECORDS SUMMARY | 2025-05-13 04:03 | XMS_ITS | CCD ---
Author Organization [facility] Care Team Providers Care Underlay Stitcher Name Role Phone Levi Dumont Primary Care [...] Unavailable Levi Dumont Primary Care Provider Samantha Maya MD Primary Care Provider Levi Dumont Primary Care Provider Samantha Maya MD Primary Care Provider [phone] Samantha Maya Primary Care Physician MD MIKE SLADE Attending Unav ailMD MIKE Craig Referring Unav ailable MD MIKE SLADE Admitting Unav ailable MD MIKE SLADE Attending Unav ailable Ella RN, [facility] Unavailable LAYA SLADENA Attending Unavail [...] [No Known Medication Allergies]Propensity to adverse reactions (disorder)[facility] Medications Current Medications MedicationDrug Class(es)DatesSig (Normalized)Sig (Original)8 hr acetaminophen 650 mg extended release oral tablet (20 sources)Start: 14-06-3518Qyngikd 8 HR Arthritis Pain 650 mg oral tablet, extended release 1,300 mg = 2 tab(s), Oral, q8hr, Refills(s) 0, Pain Start Date: 06/09/24 Status: Ordered Repeat number: 1Start: 08-98-7216cxkq 1 tablet by mouth every eight hoursTylenol [...] mg oral tablet (20 sources)Factor Xa InhibitorStart: 33-12-5230tbzw 1 tablet by mouth twice dailyEliquis 2.5 mg oral tablet 2.5 mg = 1 tab(s), Oral, BID, Refills(s) 0, Blood Thinner Start Date: 06/09/24 Status: Ordered Repeat number: 1Start: 10-27-2022 End: 06-49-7186rwpi 1 tablet by mouth once dailyapixaban (ELIQUIS) 5 mg tab(s) Take 5 mg by mouth once daily. 10/27/2022 05/24/2024 DiscontinuedStart: 08-68-1054kyxl 1 tablet by mouth twice dailyapixaban (ELIQUIS) 5 mg tab(s) Take 5 mg by mouth two times a day. 10/27/2022 Activeascorbic acid 250 mg oral tablet (20 sources)Vitamin CStart: 30-47-2662wjnd 250 mg by mouth once dailyVitamin C 250 mg, Oral, Daily, Refills(s) 0, Prophylaxis Start Date: 03/01/19 Status: Ordered Repeatnumber: 1Start: 52-53-9988Ccsjwat C Daily, Refills(s) 0 Start Date: 03/01/19 [...] ophthalmic solution (1 source)Diagnostic DyeStart: 11-14-2021 End: 59-25-0451wakqbmkfpai-benoxinate 0.25-0.4 % 1 Drop (FLURESS)Calcium Carbonate / vitamin D3 (20 sources)CALCIUM CARBONATE/VITAMIN D3 (CALCIUM + D ORAL) Take by mouth once daily. ActiveCALCIUM CARBONATE/VITAMIN D3 (CALCIUM + D ORAL) Take by mouth. ActiveCALCIUM CARBONATE/VITAMIN D3 (CALCIUM + D ORAL) Take by mouth. 0 Active Comment on above:Take by mouth.Centrum Silver (6 sources)Start: 21-72-2713hgbj 1 tablet by mouth once dailyCentrum Silver 1 tab(s), Oral, Daily, Refill(s) 0, Prophylaxis Start Date: 03/01/19 Status: Ordered Repeat number: 1Start: 36-82-4946fthn 1 tablet by mouth once daily Centrum Silver 1 tab(s), Oral, Daily, Refill(s) 0, Prophylaxis Start Date: 03/01/19 Status: OrderedStart: 53-06-0673ksof 1 tablet by mouth once dailyCentrum Silver tab(s), Oral, Daily, Refill(s) 0 Start Date: 03/01/19 Status: Ordered docusate sodium 50 mg oral capsule (4 sources)Start: 22-55-6071ojuo 1 capsule by mouth twice daily as needed for constipationColace 50 mg oral capsule 50 mg = 1 cap(s), Oral, BID, PRN for constipation, # 180 cap(s), Refills(s) 0, Pharmacy: [facility]/pharmacy #[id number], 165, cm, 06/09/24 13:18:00 EST, Height/Length Dosing, 159.8, kg,06/09/24 13:18:00 EST, Weight Dosing Start Date: 06/16/24 Status: Ordered Quantity: 180.0 Unit: cap(s) Repeat number: 1indapamide 1.25 mg oral tablet (4 sources)Thiazide-like DiureticStart: 10-19-2023 End: 15-48-3779uxjs 1 tablet by mouth once dailyindapamide (Lozol) 1.25 mg tablet Indications: Essential hypertension, benign Take 1 tablet (1.25 mg) by mouth once daily. 90 tablet 3 10/19/2023 10/18/2024 ActiveStart: 40-99-4105tcze 1 tablet by mouth once dailyIndapamide 1.25 MG Oral Tablet TAKE 1 TABLET ONCE DAILY. Quantity: 90 Refills: 3 Ordered: 24-Oct-2022 Avelina Chowdhury MD Start : 24-Oct-2022 Active new startlisinopril 5 mg oral tablet (20 sources)Angiotensin Converting Enzyme InhibitorStart: 79-86-4759azwt 1 tablet by mouth once dailylisinopril 5 mg Tab 5 mg = 1 tab(s), Oral, Daily, # 90 tab(s), Refills(s) 0, High blood pressure Start Date: 06/09/24 Status: Ordered Quantity: 90.0 Unit: tab(s) Repeat number: 1magnesium oxide 400 mg oral tablet (20 sources)Start: 22-06-2778czpj 1 tablet by mouth once dailymagnesium oxide 400 mg (240 mg elemental magnesium) oral tablet See Instructions, Refill(s) 0, 1 tab daily 400 mg, Prophylaxis Start Date: 06/09/24 Status: Ordered Repeat number: 1Magnesium 500 MG CAPS TAKE 1 CAPSULE Daily Quantity: 0 Refills: 0 Ordered: 24-Oct-2022 DO Tbjcfl95 hr metoprolol succinate 50 mg extended release oral tablet (7 sources)beta-Adrenergic BlockerStart: 12-25-2023 End: 29-45-7717toqb 1 tablet by mouth once dailymetoprolol succinate ER (TOPROL XL) 50 mg 24 hr tablet Take 50 mg by mouth once daily. 12/25/2023 Active multivitamin with minerals iron-free (Centrum Silver) (1 source)take 1 tablet by mouth once dailymultivitamin with minerals iron-free (Centrum Silver) Take 1 tablet by mouth once daily. Active Auzislgkvmbto-Uwjbqmyz-Jevphk (CENTRUM SILVER) tab (20 sources)take 1 tablet by mouth once ivzeuVwcfjqsvnnhcm-Hwghzmne-Tdwgsm (CENTRUM SILVER) tab Take 1 tablet by mouth once daily. ActiveoxyCODONE hydrochloride 5 mg oral capsule (4 sources)Opioid AgonistStart: 33-03-8309mkev 1 capsule by mouth every six hours as needed for painoxyCODONE 5 mg Cap 5 mg = 1 cap(s), Oral, q6hr, PRN for pain, # 4 cap(s), Refills(s) 0, Pharmacy: [facility]/pharmacy #[id number], 165, cm, 06/09/24 13:18:00 EST, Height/Length Dosing, 159.8, kg, 06/09/24 13:18:00 EST, Weight Dosing Start Date: 06/16/24 Status: Ordered Quantity: 4.0 Unit: cap(s) Repeat number: 1phenylephrine hydrochloride 25 mg/ml ophthalmic solution (1 source)alpha-1 Adrenergic AgonistStart: 11-14-2021 End: 26-68-3332STTTOCcvqqtbu 2.5 % 1 Drop (AK-DILATE, LUZMARIA-SYNEPHRINE) proparacaine hydrochloride 5 mg/ml ophthalmic solution (1 source)Local AnestheticStart: 11-14-2021 End: 24-08-1577znhgittcufui 0.5 % 1 Drop (ALCAINE)saw palmetto 450 mg capsule (1 source)saw palmetto 450 mg capsule Take by mouth. Activesaw palmetto 450 mg oral capsule (6 sources)Start: 62-70-0762duar 1 capsule by mouth once dailysaw palmetto 450 mg oral capsule 450 mg = 1 cap(s), Oral, Daily, Refills(s) 0, Prophylaxis Start Date: 06/09/24 Status: Ordered Repeat number: 1Start: 95-45-3965gxva 1 capsule by mouth once dailysaw palmetto 450 mg oral capsule 450 mg = 1 cap(s), Oral, Daily, Refills(s) 0, Prophylaxis Start Date: 06/09/24 Status: OrderedStart: 06-09-2024 take 1 mg by mouth once dailysaw palmetto 450 mg oral capsule mg cap(s), Oral, Daily, Refills(s) 0 Start Date: 06/09/24 Status: OrderedSelenium (6 sources)Start: 61-48-6124dimq 200 ug by mouth once dailyselenium 200 mcg, Oral, Daily, Refills(s) 0, Prophylaxis Start Date: 06/09/24 Status: Ordered Repeat number: 1Start: 73-90-2304rcrz 200 ug by mouth once dailyselenium 200 mcg, Oral, Daily, Refills(s) 0, Prophylaxis Start Date: 06/09/24 Status: OrderedStart: 55-03-0723ievq 200 ug by mouth once dailyselenium 200 [...] source)selenium 200 mcg capsule Take by mouth. Naegse372 ml sodium chloride 9 mg/ml prefilled syringe (10 sources)Start: 02-04-2024 End: 47-75-6335yvqwnn chloride 0.9 %, flush, (BD POSIFLUSH) syringe Indications: PAF (paroxysmal atrial fibrillation) (HCC) Inject 2-10 mL intravenously as directed. For Echo procedure 10 mL 12/19/2024 12/19/2025 Activetamsulosin hydrochloride 0.4 mg oral capsule (4 sources)alpha-Adrenergic BlockerStart: 96-13-9105eygl 1 capsule by mouth once dailyFlomax 0.4 mg Cap 0.4 mg = 1 cap(s), Oral, Daily, # 10 cap(s), Refills(s) 0, Pharmacy: [facility]/pharmacy#[id number], 165, cm, 06/09/24 13:18:00 EST, Height/Length Dosing, 159.8, kg, 06/09/24 13:18:00 EST, Weight Dosing Start Date: 06/16/24 Status: Ordered Quantity: 10.0 Unit: cap(s) Repeat number: 1tropicamide 10 mg/ml ophthalmic solution (1 source)AnticholinergicStart: 11-14-2021 End: 59-32-0246kbbuifjfyfq 1 % 1 Drop (MYDRIACYL)[place] Calcium and Vitamin D (2 sources)Start: 28-67-4188fnuz 1 mL by mouth twice dailyWellesse Calcium [...] (Original)Benzocaine (1 source)Standardized Chemical AllergenStart: 02-09-2024 End: 84-55-1243UYBYGSS, X (OR/PROCEDURE) PRN, Starting on Thu02/09/24 at 1334, Until Thu02/09/24 at 1334, IntraprocedureCalcium (3 sources)Phosphate Binder, CalciumCalcium + D TABS TAKE 1 TABLET DAILY. Quantity: 0 Refills: 0 Ordered: 24-Oct-2022 DO ActiveCentrum Silver TABS (3 sources)Centrum Silver TABS TAKE 1 TABLET DAILY. Quantity: 0 Refills: 0 Ordered: 24-Oct-2022 DO Grctyc95 hr dilTIAZem hydrochloride 180 mg extended release oral capsule (4 sources)Calcium Channel BlockerStart: 11-10-2015 End: 40-42-1609wydpskzlk CD (CARDIZEM CD, CARTIA XT) 180 mg 24 hr capsule Take 180 mg by mouth as directed. 11/10/2015 02/04/2024 DiscontinuedComment on above: Take 180 mg by mouth as directed.docosahexaenoic acid 120 mg / eicosapentaenoic acid 180 mg oral capsule (2 sources) End: 93-66-9810anhb 1 capsule by mouth once dailyDocosahexanoic Acid-Eicosapent 120-180 mg capsule Take 1,000 mg by mouth once daily. 02/04/2024 Discontinued Comment on above:Take 1,000 mg by mouth once daily.1 ml fentaNYL 0.05 mg/ml injection (1 source)Opioid AgonistStart: 02-09-2024 End: 63-93-7004XGNFUKJGIHM, X (OR/PROCEDURE) PRN, Starting on Thu02/09/24 at 1337, Until Thu02/09/24 at 1414, IntraprocedureFLAXSEED OIL (OMEGA 3 ORAL) (2 sources) End: 86-03-3225OMQYEIYB OIL (OMEGA 3 ORAL) Take by mouth. 02/04/2024 DiscontinuedFLAXSEED OIL (OMEGA 3 ORAL) Take by mouth. 0 ActiveComment on above: Take by mouth.FOLIC ACID/MULTIVIT-MIN/LUTEIN (CENTRUM SILVER ORAL) (2 sources) End: 45-47-2302XJZSE ACID/MULTIVIT-MIN/LUTEIN (CENTRUM SILVER ORAL) Take by mouth. 02/04/2024 DiscontinuedFOLIC ACID/MULTIVIT-MIN/LUTEIN (CENTRUM SILVER ORAL) Take by mouth. 0 ActiveComment on above:Take by mouth.furosemide 40 mg oral tablet (9 sources)Loop DiureticStart: 01-28-2024 End: 55-21-8898HVCQX 40 mg tablet Take 1 tablet by mouth as needed (for weight gain/ fluid retention). 03/18/2024 05/06/2024 Discontinued (Discontinued by another Health Care Provider)lidocaine hydrochloride 0.02 mg/mg topical gel (1 source)Antiarrhythmic, Amide Local AnestheticStart: 02-09-2024 End: 02-09-2024X (OR/PROCEDURE) PRN, Starting on Thu02/09/24 at 1334, Until Thu02/09/24 at 1334, Intraprocedurelosartan potassium 100 mg oral tablet (4 sources)Angiotensin 2 Receptor BlockerStart: 11-10-2015 End: 95-47-2241aucu 1 tablet by mouth once dailylosartan (COZAAR) 100 mg tablet Take 100 mg by mouth once daily. 11/10/2015 02/04/2024 DiscontinuedComment on above:Take 100 mg by mouth once daily.magnesium L-koqvsi-sbgmmmbkxqs 42 mg (500 mg)- 250 mg tablet extended release (1 source) End: 19-65-1805tygbryzyu B-zrdazq-mzabmjrawjz 42 mg (500 mg)- 250 mg tablet extended release Take by mouth. 12/25/2023 Discontinued (Med List Cleanup)5 ml midazolam 1 mg/ml injection (1 source)BenzodiazepineStart: 02-09-2024 End: 03-30-9676KMPCRBZQGWR, X (OR/PROCEDURE) PRN, Starting on Thu02/09/24 at 1337, Until Thu02/09/24 at 1414, Intraprocedurepotassium chloride 10 meq extended release oral tablet (9 sources)Start: 03-18-2024 End: 42-97-2761ysye 1 tablet by mouth once daily as neededKLOR-CON 10 10 mEq tablet Take 1 tablet by mouth as needed (on days that you take lasix). 03/18/2024 05/06/2024 Discontinued (Discontinued by another Health Care Provider)Start: 02-01-2024 End: 33-57-7102hxbg 1 tablet by mouth twice dailyKLOR-CON 10 10 mEq tablet Take 10 mEq by mouth two times a day. 02/01/2024 03/18/2024 Discontinuedrivaroxaban 20 mg oral tablet (3 sources)Factor Xa InhibitorStart: 73-42-8988ghwf 1 tablet by mouth once daily Xarelto 20 MG Oral Tablet Take 1 tablet daily Quantity: 90 Refills: 3 Ordered: 04-Nov-2022 Avelina Chowdhury MD Start : 24-Oct-2022 ActiveSaw Newbern 450 MG Oral Capsule (3 sources)Saw Newbern 450 MG Oral Capsule TAKE DIRECTED. Quantity: 0 Refills: 0 Ordered: 24-Oct-2022 DO ActiveSaw Newbern Fruit 450 mg cap (1 source)Start: 05-24-2020 End: 93-74-3859rxfq 1 capsule by mouth once dailySaw Newbern Fruit 450 mg cap Take 450 mg by mouth once daily. 05/24/2020 02/04/2024 DiscontinuedSelenium 200 MCG Oral Capsule (3 sources)Selenium 200 MCG Oral Capsule TAKE DIRECTED. Quantity: 0 Refills: 0 Ordered: 24-Oct-2022 DO Activevitamin b6 200 mg oral tablet (2 sources) End: 13-49-5657owbk 1 tablet by mouth once dailyPyridoxine HCl 200 mg tablet Take 200 mg by mouth once daily. 02/04/2024 DiscontinuedComment on above:Take 200 mg by mouth once daily. Problems Active Problems Problem ClassificationProblemDateDocumented DateEpisodic/ChronicCalculus of urinary tract (20 sources)History of calculus of kidney; Translations: [Kidney stone]Onset: 700761-36-0677WpwxgaasQomxwcq dysrhythmias (20 sources)Persistent atrial fibrillation; Translations: [Atrial fibrillation] Onset: 03-18-2023 Resolved: 801385-81-3192LrhgfomGpyoqcj dysrhythmias (1 source)Tachycardia-induced cardiomyopathy; Translations: [Tachycardia, unspecified]24-89-5310ExtoyykgNjkunceoix heart failure; nonhypertensive (20 sources)Unspecified diastolic (congestive) heart failure; Translations: [Chronic systolic heart failure]Onset: 190993-83-2146LdgxecmCkuydlcmy of lipid metabolism (4 sources)Hyperlipidemia, unspecified; Translations: [Hyperlipidemia]Onset: 420331-06-8538YtsqnvaGskxlqojn hypertension (19 sources)Benign essential hypertension; Translations: [Benign essential hypertension]Onset: 10-90-8498XtusbnrEqsrbzvqjmynqjve hemorrhage (20 sources)Lower gastrointestinal hemorrhage; Translations: [Gastrointestinal hemorrhage, unspecified]Onset: 996224-94-4477CumlfsjdDbaqvpofteryr symptoms and ill-defined conditions (12 sources)Increased frequency of urination; Translations: [Nocturia]03-01-2019 EpisodicHeart valve disorders (20 sources)Mitral valve regurgitation; Translations: [Mitral valve disorders] Onset: 64-84-9187WnxnuxcRmnteoagugh of prostate (8 sources)Benign prostatic hypertrophy with outflow obstruction; Translations: [Benign prostatic hyperplasia with lower urinary tract symptoms]Onset: 193717-60-0975EhzybajFolxinzffzwy with complications and secondary hypertension (1 source)Hypertensive heart disease with heart failure; Translations: [HTN HEART DISEASE W/HEART FAIL]Onset: 21-24-9506EpyrdgrWqgyfpryd of unspecified nature or uncertain behavior (5 sources)Monoclonal gammopathy (clinical); Translations: [Monoclonal gammopathy]Onset: 842034-44-4579UdmpvlkGoobytgtfacbxh (9 sources)Arthritis; Translations: [Unspecified osteoarthritis, unspecified site]Onset: 644675-12-0885WcgqnuaYojdk aftercare (3 sources)Drug therapy finding; Translations: [Long-term (current) use of other medications]EpisodicOther aftercare (7 sources)Long-term current use of anticoagulant; Translations: [assisted (current) use of anticoagulants]Onset: 182909-73-4015IjxjhmriQnrjj and ill-defined heart disease (14 sources)Left atrial dilatation; Translations: [Cardiomegaly]Onset: 191589-25-1231IqouakpBkstt and ill-defined heart disease (4 sources)Cardiomegaly; Translations: [Cardiomegaly]Onset: 17-16-1790Uculipl Other and unspecified benign neoplasm (1 source)Nevus of choroid of left eye; Translations: [Benign neoplasm of left choroid]EpisodicOther circulatory disease (12 sources)H/O: hypertension; Translations: [Personal history of other diseases of circulatory system]Onset: 358122-74-4548WalvcaygRojqn diseases of kidney and ureters (3 sources)Urinary tract obstruction; Translations: [Hydronephrosis with renal and ureteral calculous obstruction]Onset: 47-98-5753WicfuknpDumwj diseases of kidney and ureters (3 sources)Disorder of kidney and/or ureter; Translations: [Disorder of kidney and ureter, unspecified]Onset: 61-40-5599SaxwczbtQkfln diseases of kidney and ureters (6 sources)Kidney -52-7396MxlqiediMgaif gastrointestinal disorders (2 sources)History of gastrointestinal bleed; Translations: [Personal history of other diseases of the digestive system]12-81-6957NmnppktgKbhpm lower respiratory disease (4 sources)Other forms of dyspnea; Translations: [OTHER FORMS OF DYSPNEA]Onset: 32-20-6853JhatulobKudsx lower respiratory disease (5 sources)Dyspnea; Translations: [Other respiratory abnormalities]Onset: 033835-02-8900MexxlfxwZsmfc lower respiratory disease (2 sources)Shortness of breath; Translations: [Shortness of breath]Onset: 49-78-3898OisnzxyqNlaul nervous system disorders (5 sources)Carpal tunnel syndrome; Translations: [Carpal tunnel syndrome] 47-81-0693QttbwikDjpjz nervous system disorders (4 sources)Lesion of ulnar nerve, left upper limb; Translations: [Cubital tunnel syndrome on left]Onset: 155761-47-1114XgknkgePzpus nervous system disorders (4 sources)Lesion of ulnar nerve, right upper limb; Translations: [Cubital tunnel syndrome on right]Onset: 393285-60-9156PtnnjyuPdpnv nervous system disorders (12 sources)Bilateral carpal tunnel syndrome; Translations: [Carpal tunnel syndrome, bilateral upper limbs]Onset: 196843-15-0727GyurtbaQfjru non- traumatic joint disorders (1 source)Other specified joint disorders, right shoulder; Translations: [OTH SPECIFIED JOINT D/O RT SHOULDER]Onset: 22-12-8122OryzxnhlGvwjj nutritional; endocrine; and metabolic disorders (3 sources)Overweight in adulthood with body mass index of 25 or more but less than 30; Translations: [Overweight]EpisodicPeri-; endo-; and myocarditis; cardiomyopathy (except that caused by tuberculosis or sexually transmitted disease) (4 sources)Cardiomyopathy; Translations: [Other cardiomyopathies]02-04-2024 ChronicPeripheral and visceral atherosclerosis (9 sources)Ischemic colitis; Translations: [Vascular disorder of intestine, unspecified]Onset: 760143-01-1039BifrntgGntykjwnpb and visceral atherosclerosis (9 sources)Mesenteric infarction; Translations: [Acute infarction of intestine, part and extent unspecified]Onset: 767926-19-8300DpkykyrsRpxivlho codes; unclassified (3 sources)History of partial resection of colon; Translations: [Acquired absence of other specified parts of digestive tract]79-57-9254MtrrqdwsIobvmydm codes; unclassified (2 sources)Other specified health status; Translations: [Other specified conditions influencing health status]42-85-2922JfzvmbfiJfvyaesu codes; unclassified (9 sources)History of cardiac catheterization; Translations: [Other specified postprocedural states]Onset: 171069-63-0954MkkciaqpEgqgbon detachments; defects; vascular occlusion; and retinopathy (1 source)Bilateral epiretinal membrane of eyes; 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, bilateral]ChronicScreening and history of mental health and substance abuse codes (10 sources)Personal history of nicotine dependence; Translations: [Ex-smoker] Onset: 83-61-4537TrcykjwjZikmxpk disorders (1 source)Hypothyroidism; Translations: [Other specified hypothyroidism] 37-92-9322TtotpdrZrmqucorxnge (1 source)Encounter for preprocedural laboratory examination; Translations: [Encounter for preprocedural laboratory examination]Onset: 10-27-2022 Unclassified (6 sources)Other persistent atrial fibrillation; Translations: [Other persistent atrial fibrillation (Multi)]Onset: 47-93-9052Urtvpeusodsl (6 sources)Drug therapy jqsyizy02-84-7487Qliqirpdxsvk (6 sources)Obstructive fzxrufyvznmbes08-64-1721Babqlujsicek (1 source)Radiology NMOnset: 10-03-2024 Past or Other Problems Problem ClassificationProblemDateDocumented DateEpisodic/ChronicDeficiency and other anemia (9 sources)Iron deficiency anemia; Translations: [Iron deficiency anemia, unspecified]Onset: 478823-10-4601JnlkoupfKggzgwjx mellitus without complication (1 source)Other abnormal glucose; Translations: [OTHER ABNORMAL GLUCOSE]Onset: 42-83-3702HgxctumbQdfux aftercare (4 sources)Other emt intermediate (current) drug therapy; Translations: [Other emt intermediate (current) drug therapy]Onset: 69-19-6191CqxmeamgUqfgb aftercare (2 sources)Taking high risk medication; Translations: [Other care home (current) drug therapy]Onset: 258976-28-7928NpwvpigkUfgvo circulatory disease (11 sources)Low blood pressure; Translations: [Hypotension, unspecified]Onset: 758747-86-2820LzsrlzrzUnjkw lower respiratory disease (4 sources)Dyspnea, unspecified; Translations: [DYSPNEA UNSPECIFIED]Onset: 37-91-7656JambpwvaUzkju screening for suspected conditions (not mental disorders or infectious disease) (1 source)Encounter for screening for malignant neoplasm of prostate; Translations: [ENC SCREEN MALIG NEOPLASM PROSTATE]Onset: 87-98-3153Twjercjm Residual codes; unclassified (2 sources)H/O: respiratory disease; Translations: [Personal history of other diseases of respiratory system] Resolved: 09-34-7915GgxcphcjPnmhphaehivs (3 sources)Never smoked tobacco; Translations: [Never a smoker]Unclassified (1 source)Onset: Results Test NameValueInterpretationReference RangeFacilSummit Healthcare Regional Medical CenterCOon 20-64-7709AOJUUjvljm TextNormalCTriHealthCNPNon 41-33-9064LWYXQlesfsgjz (PLASCA) BRANDI DALTON ([id number]) 1940 M Date Time Provider Department 03/08/25 JOSE MARIA PORTER During your visit today, we recorded the following information about you: Camilla Carlisle 03/08/2025 5:26 PM Signed 03/08/25 Scheduled from September for Virtual apt with Dr German Hung MD on 05/19/25 at 11:30 AM . Sent letter and message with [employer]. Mailed out apt reminder with contact information. [...] by mouth two times a day. - Pmdzbdpkwgubq-Osxgnesp-Mjpikf (CENTRUM SILVER) tab Take 1 tablet by [...] [I48*10/03/2024 Encounter Status:Closed by CAMILLA CARLISLE on 03/08/25[facility] CenterAmbulatory Visit Summaryon 60-96-4922Mylrrzfhog Visit SummaryAmbulatory Visit Summary BRANDI DALTON JR [...] ? 8 oz (237 mL) of milk, eseubup-ticqxndbzifm-baepv milk, and calcium- fortifiedfruit juice. Calcium-fortified means [...] yogurt and kefir. ?? (more content not included)...[facility] HospitalU[facility] Office/Clinic Noteon 78-41-0093Feysubr Office/Clinic NoteUrology Office/Clinic Note Chief Complaint 6 [...] with voice recognition artificial intelligence software, specifically [employer], [employer] and or [employer]. Substitutions may have occurred due to the inherent limitations of voice recognition and artificial intelligence software. 1. Ureteral stone with hydronephrosis (N13.2: Hydronephrosis with renal and ureteral calculous obstruction) Hx of lithotripsy years ago. Pt presented to [facility] ER 06/01/24 due to left lower quadrant [...] ROMAIN in 1 year 4. Anticoagulated (Z79.01: assisted (current) use of anticoagulants) Hx of CHF, being treated by [facility]. S/p successful cardioversion 02/2024. On Eliquis for [...] 1 tab(s), Oral, (more content not included)...[facility] HospitalComment on above:Result Comment: Electronically Signed By: GEORGI TRUJILLO, MIKE\.br\Date and Time Signed: 01/02/25 11:11 EDT\.br\Electronically Co-Signed By: Felicita Miranda\.br\Date and Time Co- Signed: 01/02/25 10:52 EDTCNCOon 75-55-2518STNGStcdov TextNormalCHolzer Medical Center – JacksonPNon 25-09-5691QSGWQvwjgpgfb (EPSMN) BRANDI DALTON ([id number]) 1940 M Date Time Provider Department 12/14/24 ARIANA VALLES EPSMN During your visit today, we recorded the following information about you: Lolita Banegas RN 12/14/2024 6:17 PM Signed ----- Message from Ariana Valles MD sent at 09/26/2024 4:45 PM EDT ----- Regarding: PVI + Watchman Patient: Brandi Dalton JR EP Lab Procedure requested: Left Appendage Closure Device Watchman CPT 46073 + PVI Anticoagulation Status: Eliquis (apixaban) Requesting Physician: Ariana Valles MD Procedural Physician: Ariana Valles MD or rd qureshi (ablation and Reena for watchman) Date of last HANDP or Date of upcoming HANDP: 09/20/24 Indications for procedure: Atrial Fibrillation and Previous bleed Procedure time frame: Patient convenience Current Meds: Current Outpatient Medications: ? apixaban (ELIQUIS) 2.5 mg tab(s)? Aykgoalmviwpx-Duxcdesr-Wvzric (CENTRUM SILVER) tab? magnesium oxide 400 mg [...] no appointment needed. Needs OPD with EP CROSS TIE MAKER, ECG AND Labs (CBC CMP,30 day TANDS [...] [I48.0] Order(s):COMPLETE BLOOD COUNT [SQCBC] Order #: [id number] FUTURE COMPREHENSIVE METABOLIC PANEL [SQCMP] Order #: [id number] FUTURE CONFIRM BLOOD TYPE [SQCONABO] Order #: [id number] FUTURE ECG COMPLETE [ECG01] Order #: [id number] FUTURE ECHO TRANSESOPHAGEAL [20341615] Order #: [id number]: 1 FUTURE sodium chloride 0.9 %, flush, (BD POSIFLUSH) syringeInject 2-10 mL intravenously as directed. For Echo procedureDisp: 10 mLRfl: 0 TYPE AND SCREEN,30 DAY [CVCGCQ04] Order #: [id number] FUTURE Prescriptions as of 12/19/2024 - sodium chloride 0.9 %, flush, (BD POSIFLUSH) syringe Inject 2-10 mL intravenously as directed. For Echo procedure - apixaban (ELIQUIS) 2.5 mg tab(s) Take 1 tablet by mouth two times a day. - Blovqmcsoowsb-Iozuejlg-Xnmhwe (CENTRUM SILVER) tab Take 1 tablet by [...] [I51.7] 03/18/2023 Mesenteric infa (more content not included)...NormalAultman Hospital CNOVon 05-23-3745QLEGQdxxia Visit (MEGAN CHF RHONA) BRANDI DALTON ([id number]) 1940 M Date Time Provider Department 12/05/24 12:00 PM KENDRA MENDOZA CHF RHONA During your visit today, we recorded the following information about you: Pulse Blood pressure Weight Height 57/minute 139/78 72.8 kg 1.676 m Kendra Mendoza MD 12/05/2024 5:55 PM Signed Heart and Vascular [facility] SECTION OF HEART FAILURE and CARDIAC TRANSPLANT MEDICINE OUTPATIENT VISIT DATE December 05, 2024 OUTPATIENT VISIT TYPE Established Patient PRIMARY CARE PHYSICIAN: Samantha Maya [address] [place] [address] CHIEF COMPLAINT: HF F/u NURSING INTAKE (Patient?s [...] HISTORY OF repair carpal tunnel 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 Mzmwlnbgfqmfg-Aaffniup-Bzskmg (CENTRUM SILVER) tab Take 1 tablet by [...] to Good Quality (more content not included)... NormalA[facility] 20-81-2528Gjglrvhqrzqejgvt Echocardiography Report: Transthoracic Echo [facility] J35 Date of service: 12/05/2024 11:21:29 AM MANAGER Ordering physician: KENDRA MENDOZA Exam indication: Evaluation [...] * * * Final * * * [employer] [facility] : [id number] [facility] W Auto Differential panel (Bld)on 10-03-2024 Basophils (Bld) [#/Vol]0.03 10*3/uLNINFOhio State University Wexner Medical CenterBasophils/100 WBC (Bld) 0.5 %[facility] Medical CenterDifferential cell count method Nom (Bld)AutoCleveland ClinicEosinophils (Bld) [#/Vol]0.22 10*3/uLNINFCleHolzer HospitalEosinophils/100 WBC (Bld)3.5 %[facility] Medical CenterErythrocyte distribution width (RBC) [Ratio]13.5 % 11.5 - 15.0 %[facility] Medical CenterHematocrit (Bld) [Volume fraction]42.2 %39.0 - 51.0 %[facility] Medical CenterHemoglobin (Bld) [Mass/Vol]14 g/dL13.0 - 17.0 g/dLOhio State University Wexner Medical CenterImmature granulocytes (Bld) [#/Vol]NINFCleveland ClinicImmature granulocytes/100 WBC (Bld)0.2 %[facility] Medical CenterInterpretation and review of laboratory resultsAbnormalCMain Campus Medical CenterLymphocytes (Bld) [#/Vol]1.74 10*3/uL [facility] Medical CenterLymphocytes/100 WBC (Bld)27.8 %[facility] Hospital NorthH (RBC) [Entitic mass]34.1 mhNcvz91.0 - 34.0 pgCUniversity Hospitals Beachwood Medical CenterHC (RBC) [Mass/Vol]33.2 g/dL30.5 - 36.0 g/dLPremier Health Miami Valley Hospital NorthV (RBC) [Entitic vol]102.9 bRFuyu57.0 - 100.0 fLCMain Campus Medical CenterMonocytes (Bld) [#/Vol]0.85 10*3/uLNINFOhio State University [facility] Center Monocytes/100 WBC (Bld)13.6 %[facility] Medical CenterNeutrophils (Bld) [#/Vol]3.4 10*3/uLOhio State University Wexner Medical CenterNeutrophils/100 WBC (Bld)54.4 %[facility] Medical CenterNucleated RBC (Bld) [#/Vol]NINFCMain Campus Medical CenterNucleated RBC/100 WBC (Bld) [Ratio]0 %/100 WBCOhio State University Wexner Medical CenterPlatelet mean volume (Bld) [Entitic vol]9.6 fL9.0 - 12.7 fL [facility] Medical CenterPlatelets (Bld) [#/Vol]249 10*3/uLOhio State University Wexner Medical CenterRBC (Bld) [#/Vol]4.1 10*6/uLLow4.20 - 6.00 m/[facility] HospitalWBC (Bld) [#/Vol]6.25 10*3/uLUniversity Hospitals Cleveland Medical Center ClinicBasophils (Bld) [#/Vol]0.03 10*3/uLNormal <0.11CTriHealthComment on above:Order Comment: Specimen Type: BLOOD SPECIMENOrdering Facility: [facility] Address:[address], [place] [address]Performed By: #### 62256-8 ####[facility] LAB[facility] [id number] [address] AVENU[address], [place] [address] [place] AMERICABasophils/100 WBC (Bld)0.5 %NormalAultman Hospital Comment on above:Order Comment: Specimen Type: BLOOD SPECIMENOrdering Facility: [facility] Address:[address] [place] [address] Performed By: #### 25029-7 ####[facility] LABCL[facility] [id number] [place] [address] [place] Differential cell count method Nom (Bld)AutoNormalClevelFormerly [facility] Comment on above:Order Comment: Specimen Type: BLOOD SPECIMENOrdering Facility: [facility] Address:[address] [place] [address] Performed By: #### 57539-2 ####[facility] LABCL[facility] [id number] [place] [address] [place] Eosinophils (Bld) [#/Vol]0.22 10*3/uLNormal<0.46[facility] Comment on above:Order Comment: Specimen Type: BLOOD SPECIMENOrdering Facility: [facility] Address:[address] [place] [address] Performed By: #### 35414-0 ####[facility] [id number] [place] [address] [place] Eosinophils/100 WBC (Bld)3.5 %NormalAultman HospitalComment on above: Order Comment: Specimen Type: BLOOD SPECIMENOrdering Facility: [facility] Address:[address] [place], [place] [address]Performed By: #### 12432- 8 ####[facility] [id number] [place] [address] [place] AMERICAErythrocyte distribution width (RBC) [Ratio]13.5 %Nnsayv51.5-15.0Aultman HospitalComment on above: Order Comment: Specimen Type: BLOOD SPECIMENOrdering Facility: [facility] Address:[address] [place], [place] [address]Performed By: #### 51301- 8 ####[facility] [id number] [place] [address] [place] AMERICAHematocrit (Bld) [Volume fraction]42.2 %Nxjpqm07.0-51.0[facility] on above:Order Comment: Specimen Type: BLOOD SPECIMENOrdering Facility: [facility] Address:[address] [place], [place] [address]Performed By: #### 81977- 8 ####[facility] [id number] [place] [address] [place] AMERICAHemoglobin (Bld) [Mass/Vol]14.0 g/cRJkeejr51.0-17.0[facility] on above:Order Comment: Specimen Type: BLOOD SPECIMENOrdering Facility: [facility] Address:[address] [place], [place] [address]Performed By: #### 41257-1 ####[facility] [id number] [place] [address] [place] AMERICAImmature granulocytes (Bld) [#/Vol]10*3/uLNormal<0.10[facility] on above:Order Comment: Specimen Type: BLOOD SPECIMENOrdering Facility: [facility] Address:[address] [place], [place] [address]Performed By: #### 09892- 8 ####[facility] [id number] [place] [address] [place] AMERICAImmature granulocytes/100 WBC (Bld)0.2 %NormalSouthwest General Health Center on above:Order Comment: Specimen Type: BLOOD SPECIMENOrdering Facility: [facility] Address:[address] [place], [place] [address]Performed By: #### 16535-9 ####[facility] [id number] [place] [address] [place] AMERICALymphocytes (Bld) [#/Vol]1.74 10*3/uLNormal1.00-4.00[facility] on above:Order Comment: Specimen Type: BLOOD SPECIMENOrdering Facility: [facility] Address:[address] [place], [place] [address]Performed By: #### 09076-3 ####[facility] [id number] [place] [address] [place] AMERICALymphocytes/100 WBC (Bld)27.8 % NormalSouthwest General Health Center on above:Order Comment: Specimen Type: BLOOD SPECIMENOrdering Facility: [facility] Address:[address] [place], [place] [address]Performed By: #### 69174-3 ####[facility] [id number] [place] [address] [place] AMERICAMCH (RBC) [Entitic mass]34.1 jlCwcf86.0-34.0[facility] on above:Order Comment: Specimen Type: BLOOD SPECIMENOrdering Facility: [facility] Address:[address] [place], [place] [address]Performed By: #### 75016-4 ####[facility] [id number] [place] [address] [place] MCHC (RBC) [Mass/Vol]33.2 g/iWZzstxp59.5-36.0[facility] on above:Order Comment: Specimen Type: BLOOD SPECIMENOrdering Facility: [facility] Address:[address] [place] [address] Performed By: #### 02477-5 ####[facility] [id number] [place] [address] [place] MCV (RBC) [Entitic vol]102.9 vIEluh76.0-100.0[facility] on above:Order Comment: Specimen Type: BLOOD SPECIMENOrdering Facility: [facility] Address:[address] [place] [address] Performed By: #### 06327-5 ####[facility] [id number] [place] [address] [place] Monocytes (Bld) [#/Vol]0.85 10*3/uLNormal<0.87[facility] on above:Order Comment: Specimen Type: BLOOD SPECIMENOrdering Facility: [facility] Address:[address] [place] [address] Performed By: #### 12463-6 ####[facility] [id number] [place] [address] [place] Monocytes/100 WBC (Bld)13.6 %NormalSouthwest General Health Center on above: Order Comment: Specimen Type: BLOOD SPECIMENOrdering Facility: [facility] Address:[address] [place], [place] [address]Performed By: #### 93857- 8 ####[facility] [id number] [place] [address] [place] AMERICANeutrophils (Bld) [#/Vol]3.40 10*3/uLNormal1.45-7.50[facility] on above:Order Comment: Specimen Type: BLOOD SPECIMENOrdering Facility: [facility] Address:[address] [place], [place] [address]Performed By: #### 49898-8 ####[facility]CL[facility] [id number] [place] [address] [place] AMERICANeutrophils/100 WBC (Bld)54.4 % NormalSouthwest General Health Center on above:Order Comment: Specimen Type: BLOOD SPECIMENOrdering Facility: [facility] Address:[address] [place], [place] [address]Performed By: #### 07576-0 ####[facility]CLIA [id number] [place] [address] [place] AMERICANucleated RBC (Bld) [#/Vol]10*3/uLNormal<0.01[facility] on above:Order Comment: Specimen Type: BLOOD SPECIMENOrdering Facility: [facility] Address:[address] [place], [place] [address]Performed By: #### 65190-3 ####[facility] [id number] [place] [address] [place] Nucleated RBC/100 WBC (Bld) [Ratio]0.0 /100 WBCNormalCTriHealth Comment on above:Order Comment: Specimen Type: BLOOD SPECIMENOrdering Facility: [facility] Address:[address] [place] [address] Performed By: #### 28212-4 ####[facility] [id number] [place] [address] [place] Platelet mean volume (Bld) [Entitic vol]9.6 fLNormal9.0-12.7CTuscarawas Hospital on above:Order Comment: Specimen Type: BLOOD SPECIMENOrdering Facility: [facility] Address:[address] [place], [place] [address]Performed By: #### 88392-4 ####[facility]ALTHCAREIA [id number] [place] [address] [place] Platelets (Bld) [#/Vol]249 10*3/zGEqdbrv116-676UcisnbkkvSouthwest General Health Center on above:Order Comment: Specimen Type: BLOOD SPECIMENOrdering Facility: [facility] Address:[address] [place] [address] Performed By: #### 98143-3 ####[facility] [id number] [place] [address] [place] RBC (Bld) [#/Vol]4.10 10*6/uLLow4.20-6.00[facility] on above:Order Comment: Specimen Type: BLOOD SPECIMENOrdering Facility: [facility] Address:[address] [place], [place] [address]Performed By: #### 55805-9 ####[facility] [id number] [address] STREETWBC (Bld) [#/Vol]6.25 10*3/uLNormal3.70-1100[facility] on above:Order Comment: Specimen Type: BLOOD SPECIMENOrdering Facility: [facility] Address:[address] [place], [place] [address]Performed By: #### 43729-5 ####[facility] [id number] [address]ETCNOVon 75-74-7882MBZPFjsdjx Visit (PARDEEPN) BRANDI DALTON ([id number]) 1940 M Date Time Provider Department 10/03/24 1:00 PM TOMY HUTTON During your visit today, we recorded the following information about you: Pulse Blood pressure Weight Height 59/minute 156/80 73.8 kg 1.651 m Tomy Hutton MD 10/04/2024 12:04 PM Signed Heart and Vascular [facility] SECTION OF HEART FAILURE and CARDIAC TRANSPLANT MEDICINE OUTPATIENT VISIT DATE October 03, 2024 OUTPATIENT VISIT TYPE Consultation PRIMARY CARE PHYSICIAN: Samantha Maya [address] [place] [address] CHIEF COMPLAINT: HFpEF, AF NURSING INTAKE (Patient?s concerns and/or recent hospitalizations/ER visits): Brandi Dalton JR is a 84 year old male from [place], [place] here today for 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 Referred by Dr. Ariana Valles He has a significant medical history of CHF, HTN, Afib s/p DCCV 02/09/24, bilateral carpal tunnel, iron deficiency anemia, hypothyroid, presence of M protein He follows a regular diet and does not participates in regular exercise/activity. 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 Qzwcgyemlverj-Igoalkpd-Cuyvrb (CENTRUM SILVER) tab Take 1 tablet by [...] no vitals taken f (more content not included)...NormalAultman HospitalComprehensive metabolic 2000 panelon 84-87-5492Xqthnlm [Mass/Vol]4.3 g/dL3.9 - 4.9 g/dLMillington ClinicALP [Catalytic activity/Vol]85 U/L38 - 113 U/LCleveland ClinicALT [Catalytic activity/Vol]19 U/L10 - 54 U/L [facility] ClinicAnion gap [Moles/Vol]11 mmol/L8 - 15 mmol/LCleveland ClinicAST [Catalytic activity/Vol]38 U/L14 - 40 U/LCleveland ClinicBilirubin [Mass/Vol]0.4 mg/dL0.2 - 1.3 mg/dLMillington ClinicCalcium [Mass/Vol]10 mg/dL8.5 - 10.2 mg/dL [facility] ClinicChloride [Moles/Vol]101 mmol/L98 - 107 mmol/LCleveland ClinicCO2 [Moles/Vol]28 mmol/L22 - 30 mmol/LCleveland ClinicCreatinine [Mass/Vol]1.26 mg/dLHigh0.73 - 1.22 mg/dLMillington ClinicGFR/1.73 sq M.predicted among non- blacks MDRD [...] reflect actual GFR.Glucose [Mass/Vol]94 mg/dL74 - 99 mg/dLOhio State University Wexner Medical CenterComment on above:The [place] Diabetes Association (ADA) provides guidance for cutoff [...] Standards of Medical Care in Diabetes 2016, [place] Diabetes Association. Diabetes Care. 2016.39(Suppl 1). Interpretation and review of laboratory resultsAbnormalCleveland ClinicPotassium [Moles/Vol]5.2 mmol/LHigh3.7 - 5.1 mmol/LClevelswain community hospital ClinicProtein [Mass/Vol]8 g/dL6.3 - 8.0 g/dLMain Campus Medical Centerodium [Moles/Vol]140 mmol/L136 - 144 mmol/L [facility] Medical CenterUrea nitrogen [Mass/Vol]28 mg/dLHigh9 - 24 mg/dLOhio State University [facility] Medical Center Albumin [Mass/Vol]4.3 g/dLNormal3.9-4.9CTriHealthComment on above:Order Comment: Specimen Type: BLOOD SPECIMENOrdering Facility: [facility] Address:[address] [place], [place] [address]Performed By: #### 2885-2, 88914-0, 23895-4 ####[facility] [id number] [address] [place] ALP [Catalytic activity/Vol]85 U/AZipvoh26-423ZmsglszeuAultman HospitalComment on above:Order Comment: Specimen Type: BLOOD SPECIMENOrdering Facility: [facility] Address:[address] [place] [address] Performed By: #### 2885-2, 66884-7, 60360-9 ####[facility] [id number] VILLE [address] [place] AMERICAALT [Catalytic activity/Vol]19 U/AGxhmbk12-79TxihxifpaAultman Hospital Comment on above:Order Comment: Specimen Type: BLOOD SPECIMENOrdering Facility: [facility] Address:[address] [place] [address] Performed By: #### 2885-2, 31478-7, 94004-2 ####[facility] LABCL[facility] [id number] VIL[place] [id number] [place] AMERICAAnion gap [Moles/Vol]11 mmol/LNormal8-15Aultman HospitalComment on above:Order Comment: Specimen Type: BLOOD SPECIMENOrdering Facility: [facility] Address:[address] [place] [address] Performed By: #### 2885-2, 38865-6, 71045-0 ####[facility]CL[facility] [id number] VILLE [address] [place] AMERICAAST [Catalytic activity/Vol]38 U/JKaeedf80-36OldjxvtugAultman Hospital Comment on above:Order Comment: Specimen Type: BLOOD SPECIMENOrdering Facility: [facility] Address:[address] [place] [address] Performed By: #### 2885-2, 28289-2, 32764-5 ####[facility] [id number] VILLE [address] [place] AMERICABilirubin [Mass/Vol]0.4 mg/dLNormal0.2-1.3CTriHealth Comment on above:Order Comment: Specimen Type: BLOOD SPECIMENOrdering Facility: [facility] Address:[address] [place] [address] Performed By: #### 2885-2, 40565-5, 69681-8 ####[facility] [id number] VILLE [address] [place] AMERICACalcium [Mass/Vol]10.0 mg/dLNormal8.5-10.2CTriHealth Comment on above:Order Comment: Specimen Type: BLOOD SPECIMENOrdering Facility: [facility] Address:[address] [place] [address] Performed By: #### 2885-2, 77809-0, 52558-6 ####[facility] LABCLIA [id number] [address] [place] AMERICAChloride [Moles/Vol]101 mmol/DMwcuys15-970ShwwokhfqAultman Hospital Comment on above:Order Comment: Specimen Type: BLOOD SPECIMENOrdering Facility: [facility] Address:[address] [place] [address] Performed By: #### 2885-2, 53001-4, 21995-1 ####[facility] [id number] VILLE [address] [place] AMERICACO2 [Moles/Vol]28 mmol/VErvhda78-93OoupcqpvcAultman HospitalComment on above:Order Comment: Specimen Type: BLOOD SPECIMENOrdering Facility: [facility] Address:[address] [place], [place] [address]Performed By: #### 2885-2, 07104-8, 22432-1 ####[facility]ALTHCAREIA [id number] [address] [place] Creatinine [Mass/Vol]1.26 mg/dLHigh0.73-1.22Aultman HospitalComment on above:Order Comment: Specimen Type: BLOOD SPECIMENOrdering Facility: [facility] Address:[address] [place], [place] [address]Performed By: #### 2885-2, 47979-9, 88300-9 ####[facility] [id number] [address] [place] Creatinine and Glomerular filtration rate.predicted panel (S/P/Bld)56 mL/min/1.73m???Low>=60Aultman HospitalComascension borgess-pipp hospital on above:Order Comment: Specimen Type: BLOOD SPECIMENOrdering Facility: [facility] Address:[address] [place], [place] [address]Result Comment: Estimated Glomerular Filtration Rate (eGFR) is [...] accurately reflect actual GFR.Performed By: #### 2885-2, 51134-2, 20135-2 ####[facility] [id number] AVENUEDESK [address] [address] [place] AMERICAGlucose [Mass/Vol]94 mg/dLNormal 74-99[facility] on above:Order Comment: Specimen Type: BLOOD SPECIMENOrdering Facility: [facility] Address:[address] [place], [place] [address]Result Comment: The [place] Diabetes Association (ADA) provides guidance for cutoff [...] Standards of Medical Care in Diabetes 2016, [place] Diabetes Association. Diabetes Care. 2016.39(Suppl 1).Performed By: #### 2885-2, 55942-5, 33504-5 ####[facility] [id number] [address] [place] AMERICAPotassium [Moles/Vol] 5.2 mmol/LHigh3.7-5.1CTuscarawas Hospital on above:Order Comment: Specimen Type: BLOOD SPECIMENOrdering Facility: [facility] Address:[address], [place] [address]Performed By: #### 2885-2, 48187-0, 68833-4 ####[facility] [id number], [place] [address] [place] THE [facility] H[facility] AT SOUTHWOODSSodium [Moles/Vol]140 mmol/L Yokmus526-398JlnojwinfSouthwest General Health Center on above:Order Comment: Specimen Type: BLOOD SPECIMENOrdering Facility: [facility] Address:[address] [place], [place] [address]Performed By: #### 2885-2, 95081-0, 84592-5 ####[facility] LABCL[facility] [id number] [address] [place] AMERICAUrea nitrogen [Mass/Vol]28 mg/dL High9-24[facility] on above:Order Comment: Specimen Type: BLOOD SPECIMENOrdering Facility: [facility] Address:[address] [place], [place] [address]Performed By: #### 2885-2, 73892-9, 61392-3 ####[facility] LABCL[facility] [id number] [address] [place] AMERICAIMMUNOGLOBULINS,IGG,IGA,IGMon 50-78-0273NmB [Mass/Vol]51 mg/dLLow70 - 400 mg/dLOhio State University Wexner Medical CenterIgG [Mass/Vol] 2086 mg/eEEdaa604 - 1600 mg/dLOhio State University Wexner Medical CenterIgM [Mass/Vol]27 mg/dLLow40 - 230 mg/dLOhio State University Wexner Medical CenterInterpretation and review of laboratory resultsAbnormal Parkview HealthIgA [Mass/Vol]51 mg/fTEak22-907PoklbssrnSouthwest General Health Center on above:Order Comment: Specimen Type: BLOOD SPECIMENOrdering Facility: [facility] Address:[address] [place], [place] [address]Performed By: #### SERIMM ####[facility] LABCLIA [id number] [place] [address] [place] IgG [Mass/Vol]2086 mg/lIFtew840-8441JjkwhltaqSouthwest General Health Center on above: Order Comment: Specimen Type: BLOOD SPECIMENOrdering Facility: [facility] Address:[address] [place] [address]Performed By: #### SERIMM ####[facility] LABCL[facility] [id number] [facility] N87SLFWRMTOVLARRY VILLE [address] [place] AMERICAIgM [Mass/Vol]27 mg/dYAjs52-029 Aultman HospitalComment on above:Order Comment: Specimen Type: BLOOD SPECIMENOrdering Facility: [facility] Address:[address] [place], [place] [address]Performed By: #### SERIMM ####[facility] [id number] [facility] [place]IVERSIDEYWBLRFZVXAQ88KXUGARRTG, [place] [address] [place] OF AMERICANM CARDIAC AMYLOID SPECT/CTon 76-17-8749IP CARDIAC AMYLOID SPECT/CT* * *Final Report* * * DATE OF EXAM: Oct 03 2024 10:21AM [facility] 0847 - [place] CARDIAC AMYLOID SPECT/CT / PROCEDURE REASON: Chronic diastolic heart failure (HCC) * * * * Physician Interpretation * * * * [place] CTAC Report: [facility] Date of service: 10/03/2024 9:54:29 AM [...] pathologic assessment as appropriate. Nuclear Med Report: [id number] PLANAR and SPECT: Myocardial imaging of the chest with CT attenuation correction was performed at 3 hours post IV injection of Tc-99m Pyrophosphate. See administered doses below. [facility] [place] Date of service: 10/03/2024 9:54:29 AM Ordering [...] * * Final * * * RP First Line Supervisor: SADIE Transcribe Date/Time: Oct 03 2024 9:54A Dictated by : NICOLE AREVALO MD This examination was interpreted and the report reviewed and electronically signed by: NICOLE AREVALO MD on Oct 03 2024 10:48AM EST [id number] HospitalNT PRO BNPon 10-03-2024 Natriuretic peptide.B prohormone N-Terminal [Mass/Vol]325 pg/mLNINF - 450 pg/mL [facility] CenterNT-proBNP SerPl-mCncon 87-48-3859Hjdjshjrtrm peptide.B prohormone N-Terminal [Mass/Vol]325 pg/mLNormal<450[facility] Comment on above:Order Comment: Specimen Type: BLOOD SPECIMENOrdering Facility: [facility] Address:[address] [place] [address] Performed By: #### 2885-2, 05275-4, 28740-1 ####[facility] [id number] [place] [address] [place] OF AMERICANatriuretic peptide.B prohormone N-Terminal [Mass/Vol]on 10-03-2024 Interpretation and review of laboratory resultsNormalCleveland ClinicNo Panel Informationon 76-01-7382Emmnuihju ClinicPROTEIN ELECTROPHORESIS SERUM (P)on 20-23-2475Cdgdgzk [Mass/Vol]4.52 g/dLNormal3.43-5.41[facility] Comment on above:Order Comment: Specimen Type: BLOOD SPECIMENOrdering Facility: [facility] Address:[address] [place] [address] Performed By: #### [id number] ####[facility] [id number] [place] [address] [place] Alpha 1 globulin Elph [Mass/Vol]0.26 g/dLNormal0.18-0.43[facility] HospitalComascension borgess-pipp hospital on above:Order Comment: Specimen Type: BLOOD SPECIMENOrdering Facility: [facility] Address:[address] [place], [place] [address]Performed By: #### [id number] ####[facility] [id number] [place] [address] [place] Alpha 2 globulin Elph [Mass/Vol]0.74 g/dLNormal0.42-0.98[facility] on above:Order Comment: Specimen Type: BLOOD SPECIMENOrdering Facility: [facility] Address:[address] [place], [place] [address]Performed By: #### [id number] ####[facility] [id number] [place] [address] [place] Beta globulin Elph [Mass/Vol]0.71 g/dLNormal0.61-1.17[facility] Comment on above:Order Comment: Specimen Type: BLOOD SPECIMENOrdering Facility: [facility] Address:[address] [place] [address] Performed By: #### [id number] ####[facility] [id number] [place] [address] [place] Gamma globulin Elph [Mass/Vol]1.77 g/dLHigh0.53-1.51[facility] Comment on above:Order Comment: Specimen Type: BLOOD SPECIMENOrdering Facility: [facility] Address:[address] [place] [address] Performed By: #### [id number] ####[facility] [id number] [place] [address] [place] INTERPRETATION COMMENT FOR PROTEIN ELECTROPHORESISRecommend monoclonal protein analysis to further characterize the M protein.NormalAultman Hospital Comment on above:Order Comment: Specimen Type: BLOOD SPECIMENOrdering Facility: [facility] Address:[address] [place] [address] Performed By: #### [id number] ####[facility] [id number] [place] [address] [place] M-PROTEIN LOCATIONGamma Fraction 1NormalAultman HospitalComment on above:Order Comment: Specimen Type: BLOOD SPECIMENOrdering Facility: [facility] Address:[address] [place], [place] [address]Performed By: #### [id number] ####[facility] [id number] [place] [address] [place] OF AMERICAProtein Fractions [Interp]An M protein is identified on protein electrophoresis.AbnormalNo definitive M protein is identified on protein electrophoresis.[facility]ult[facility] HospitalComment on above:Order Comment: Specimen Type: BLOOD SPECIMENOrdering Facility: [facility] Address:[address] [place], [place] [address]Performed By: #### [id number] ####[facility] [id number] [place] [address] [place] Protein.monoclonal Elph [Mass/Vol]0.86 g/dLHigh<=0.00[facility] Comment on above:Order Comment: Specimen Type: BLOOD SPECIMENOrdering Facility: [facility] Address:[address] [place] [address] Performed By: #### [id number] ####[facility] [id number] [place] [id number] [place] SPE STAFF REVIEWReviewed by Mansi Kuo MDNormalCTriHealth Comment on above:Order Comment: Specimen Type: BLOOD SPECIMENOrdering Facility: [facility] Address:[address] [place] [address] Performed By: #### [id number] ####[facility] [id number] [place] [id number] [place] Prot SerPl-mCncon 28-34-8238Yuhpinv [Mass/Vol]8.0 g/dLNormal6.3-8.0Aultman HospitalComment on above:Order Comment: Specimen Type: BLOOD SPECIMENOrdering Facility: [facility] Address:[address] [place], [place] [address]Performed By: #### 2885-2, 97792-2, 92549-9 ####[facility] [id number] VILLE [id number] [place] OF AMERICASPECT Heart for infarct W Tc-99m PYP Anika 10-03-2024* * *Final Report* * * DATE OF EXAM: Oct 03 2024 10:21AM [facility] 0847 - ZACK CARDIAC AMYLOID SPECT/CT / PROCEDURE REASON: Chronic diastolic heart failure (HCC) * * * * Physician Interpretation * * * * NM CTA Report: [facility] Date of service: 10/03/2024 9:54:29 AM [...] pathologic assessment as appropriate. Nuclear Med Report: [id number]-Kwpzirenaiyki PLANAR and SPECT: Myocardial imaging of the chest with CT attenuation correction was performed at 3 hours post IV injection of Tc-99m Pyrophosphate. See administered doses below. [facility] [place] Date of service: 10/03/2024 9:54:29 AM Ordering [...] * * Final * * * RP First Line Supervisor: SADIE Transcribe Date/Time: Oct 03 2024 9:54A Dictated by : NICOLE AREVALO MD This examination was interpreted and the report reviewed and electronically signed by: NICOLE AREVALO MD on Oct 03 2024 10:48AM [facility] OF RADIOLOGYProvider, [facility] - 10/03/2024 * * *Final Report* * * DATE OF EXAM: Oct 03 2024 10:21AM [facility] 0847 - [place] CARDIAC AMYLOID SPECT/CT / PROCEDURE REASON: Chronic diastolic heart failure (HCC) * * * * Physician Interpretation * * * * [place] CTAC Report: [facility] Date of service: 10/03/2024 9:54:29 AM [...] pathologic assessment as appropriate. Nuclear Med Report: [id number] PLANAR and SPECT: Myocardial imaging of the chest with CT attenuation correction was performed at 3 hours post IV injection of Tc-99m Pyrophosphate. See administered doses below. [facility] [place] Date of service: 10/03/2024 9:54:29 AM Ordering [...] * * Final * * * RP First Line Supervisor: SADIE Transcribe Date/Time: Oct 03 2024 9:54A Dictated by : NICOLE AREVALO MD This examination was interpreted and the report reviewed and electronically signed by: NICOLE AREVALO MD on Oct 03 2024 10:48AM EST [facility] CenterRadiology Study observation (narrative)[facility] Heart for infarct W Tc-99m PYP IVOrdered By: Ccf Provider on 57-36-1943Xklzrgqqx ClinicIMMUNOFIXATION SCREEN, SERUMOrdered By: Mansi Hammonds on 09-22-2024 Interpretation (MPA)Atypical restricted bands are present in the IgG and kappa regions. Consistent with IgG kappa monoclonal gammopathy.[facility] Interpretation and review of laboratory resultsAbnormalCleveland ClinicMPA ResultM protein is present.AbnormalNo M protein is identified.[facility] Staff Review (MPA)Reviewed by Dr. Sheree Lewis [facility] CenterMONOCLONAL PROT UR W/INTERPOrdered By: Guzman Renteria on 09-22-2024 Interpretation ([facility])Poorly defined region of restricted mobility [...] further for monoclonal gammopathy. Clinical correlation is necessary.[facility] Interpretation and review of laboratory resultsAbnoRegency Hospital ToledoResult ([facility])A poorly defined region of restricted mobility is present that may represent an M protein.AbnormalNo M protein is identified.[facility] Centertaff Review ([facility])Reviewed by Dr. Sheree Lewis [facility] KAPPA/COSTA,FREE,SEROrdered By: Olga Jean on 90-95-5782Hqbmnnvzghcixq light chains.kappa.free (S) [Mass/Vol]83.2 mg/LHigh3.3 - 19.4 mg/LCMain Campus Medical Center Comment on above:Rarely, increased serum free light chains levels may not be detected or accurately quantified due to prozone phenomenon or in high viscosity samples using this immunoturbidimetric assay. Correlation with other laboratory results and clinical findings is recommended. The Wiley Free Light Chain was performed using the Binding Site Optilite immunoturbidimetric method. Result obtained with different assay methods or kits cannot be used interchangeably. Immunoglobulin light chains.kappa/Immunoglobulin light chains.lambda (S) [Mass ratio]9.87Qdca0.26 - 1.65[facility] Medical CenterImmunoglobulin light chains.lambda.free [Mass/Vol]8.9 mg/L5.7 - 26.3 mg/LCMain Campus Medical CenterComment on above:Rarely, increased serum free light chains [...] used interchangeably. Interpretation and review of laboratory resultsAbBarnesville HospitalNT PRO BNPon 83-78-4887Vnsiotiwabh peptide.B prohormone N-Terminal [Mass/Vol]306 pg/mLNINF - 450 pg/mLClevelswain community hospital ClinicNatriuretic peptide.B prohormone N-Terminal [Mass/Vol]on 62-89-6457Fbipnkmaixqxsk and review of laboratory resultsNormalClevelUniversity Hospitals Beachwood Medical CenterCNOVon 82-77-1732ERAT Office Visit (CARDMN) BRANDI DALTON ([id number]) 1940 Date Time Provider Department 09/20/24 2:30 PM ARIANA VALLES CARDMN During your visit today, we recorded the following information about you: Pulse Blood pressure Weight Height 94/minute 135/78 72.1 kg 1.651 m Ariana Valles MD 09/26/2024 4:45 PM Signed [facility] Aw[facility] Prajap[facility] Department of Cardiovascular Medicine SECTION OF CARDIAC PACING and ELECTROPHYSIOLOGY OUTPATIENT VISIT DATE September 20, 2024 OUTPATIENT VISIT TYPE ESTABLISHED PRIMARY CARE PHYSICIAN: Samantha Maya [address] [place] [address] REFERRING PHYSICIAN: No referring provider defined for [...] HISTORY OF repair carpal tunnel 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 Fdjsebyivesae-Kwxukkod-Oqaqjq (CENTRUM SILVER) tab Take 1 tablet by [...] 135/78 Pulse 94 Ht (more content not included)...NormalRegency Hospital Cleveland East COMPLETEon 56-02-8015UYG COMPLETEVentricular Rate : 94 BPM Atrial Rate : 94 BPM P-R Interval : 236 ms QRS Duration : 108 ms Q-T Interval : 368 ms QTC Calculation(Bazett) : 460 ms Calculated P Salyer : 72 degrees Calculated R Salyer : 31 degrees Calculated T Salyer : 0 degrees SINUS RHYTHM WITH SINUS ARRHYTHMIA WITH 1ST DEGREE AV BLOCK NONSPECIFIC ST ABNORMALITY ABNORMAL ECG Confirmed by ASAD PRESSLEY MD ([id number]) on 10/14/2024 3:58:18 PM NAME : BRANDI DALTON PID : [id number] : 1940 Gender : Male Race : ORD : [id number] Procedure Date : Sep 20 2024 13:39:53 [...] : ARIANA VALLES Acquired by : Libra MITCHELLEast [facility] Regional HospitalIMMUNOFIXATION SCREEN, SERUMon 04-17-3730DJCKXYOLRNWCCU (MPA)Atypical restricted bands are present in the IgG and kappa regions. Consistent with IgG kappa monoclonal gammopathy.NormalSouthwest General Health Center on above:Order Comment: Specimen Type: BLOOD SPECIMENOrdering Facility: [facility] Address:[address] [place], [place] [address]Performed By: #### IFESC ####[facility] [id number] [place] [address] [place] AMERICAMPA RESULTM protein is present. AbnormalNo M protein is identified.[facility] on above: Order Comment: Specimen Type: BLOOD SPECIMENOrdering Facility: [facility] Address:[address] [place], [place] [address]Performed By: #### IFESC ####[facility] [id number] [place] [address] [place] OF AMERICASTAFF REVIEW (MPA)Reviewed by Dr. Sheree Lewis MDThe Christ Hospital on above:Order Comment: Specimen Type: BLOOD SPECIMENOrdering Facility: [facility] Address:[address] [place], [place] [address]Performed By: #### IFESC ####[facility] [id number] [place] [address] [place] AMERICAKAPPA/COSTA,FREE,SERon 09-20-2024 Immunoglobulin light chains.kappa.free (S) [Mass/Vol]83.2 mg/LHigh3.3-19.4 [facility] on above:Order Comment: Specimen Type: BLOOD SPECIMENOrdering Facility: [facility] Address:[address] [place], [place] [address]Result Comment: Rarely, increased serum free light chains levels may not be detected or accurately quantified due to prozone phenomenon or in high viscosity samples using this immunoturbidimetric assay. Correlation with other laboratory results and clinical findings is recommended. The Wiley Free Light Chain was performed using the Binding Site Optilite immunoturbidimetric method. Result obtained with different assay methods or kits cannot be used interchangeably.Performed By: #### KLFRS ####[facility] [id number] [address] STATES OF [facility]WOODSImmunoglobulin light chains.kappa/Immunoglobulin light chains.lambda (S) [Mass ratio]9.01Pwio8.26-1.65[facility] on above:Order Comment: Specimen Type: BLOOD SPECIMENOrdering Facility: [facility] Address:[address] [place] [address] Performed By: #### KLFRS ####[facility]CAREIA [id number] [address] STATES OF THE [facility] S[facility]WOODSImmunoglobulin light chains.lambda.free [Mass/Vol]8.9 mg/LNormal5.7-26.3CTuscarawas Hospital on above:Order Comment: Specimen Type: BLOOD SPECIMENOrdering Facility: [facility] Address:[address] [place], [place] [address]Result Comment: Rarely, increased serum free light chains [...] cannot be used interchangeably.Performed By: #### KLFRS ####[facility] [id number] [place] [address] [place] AMERICAMONOCLONAL PROT UR W/INTERPon 61-95-0995DIVPWUXXSFQWAG (UMPA)Poorly defined region of restricted mobility in [...] further for monoclonal gammopathy. Clinical correlation is necessary.NormalAultman Hospital Comment on above:Order Comment: Specimen Type: URINE SPECIMENOrdering Facility: [facility] Address:[address] [place] [address] Performed By: #### URMPA ####[facility] [id number] [address] STREETSTAFF REVIEW ([place])Reviewed by Dr. Sheree Lewis MDNormalCTuscarawas Hospital on above:Order Comment: Specimen Type: URINE SPECIMENOrdering Facility: [facility] Address:[address] [place], [place] [address]Performed By: #### URMPA ####[facility] [id number] [address] STATES OF AMERICAUMPA RESULTA poorly defined region of restricted mobility is present that may represent an M protein. AbnormalNo M protein is identified.[facility] on above: Order Comment: Specimen Type: URINE SPECIMENOrdering Facility: [facility] Address:[address] [place], [place] [address]Performed By: #### URMPA ####[facility] [id number] [facility] [address] [place] [address] [place] AMERICANT-proBNP SerPl-mCncon 09-20-2024 Natriuretic peptide.B prohormone N-Terminal [Mass/Vol]306 pg/mLNormal<450 [facility] on above:Order Comment: Specimen Type: BLOOD SPECIMENOrdering Facility: [facility] Address:[address] [place], [place] [address]Performed By: #### [id number] ####[facility] [id number] [place] [address] [place] AMERICAPROTEIN / CREATININE RATIOon 16-38-9071Ssyzmhc/Creatinine (U) [Mass ratio]0.09 mg/mgNINF - 0.15 mg/mgSelect [facility] Specialty [facility] on above:Adult Proteinuria Categories: <0.15 mg/mg is considered normal to mildly increased 0.15 - 0.50 mg/mg is considered moderately increased >0.50 mg/mg is considered severely increased KDIGO. (2013). KDIGO 2012 Clinical Practice Guideline for the Evaluation and Management of Chronic Kidney Disease. Official Journal of the International Society of Nephrology, 3(1), 1-150. Prot/Creat Uron 96-17-4804Sukyjpk/Creatinine (U) [Mass ratio]0.09 mg/mgNormal <0.15[facility] on above:Order Comment: Specimen Type: URINE SPECIMENOrdering Facility: [facility] Address:[address] [place], [place] [address]Result Comment: Adult Proteinuria Categories: <0.15 mg/mg is considered normal to mildly increased 0.15 - 0.50 mg/mg is considered moderately increased >0.50 mg/mg is considered severely increased KDIGO. (2013). KDIGO 2012 Clinical Practice Guideline for the Evaluation and Management of Chronic Kidney Disease. Official Journal of the International Society of Nephrology, 3(1), 1-150.Performed By: #### 2890-2 ####[facility] [id number] [address] STATES OF THE [facility]WOODSProtein/Creatinine (U) [Mass ratio]on 09-20-2024 Creatinine (U) [Mass/Vol]77.3 mg/dL20.0 - 300.0 mg/dLOhio [facility] Interpretation and review of laboratory resultsNormalCleveland ClinicProtein (U) [Mass/Vol]7 mg/dL0 - 20 mg/dLParkview HealthCreatinine (U) [Mass/Vol]77.3 mg/wIAgrkqy18.0-300.0[facility] on above: Order Comment: Specimen Type: URINE SPECIMENOrdering Facility: [facility] Address:[address] [place], [place] [address]Performed By: #### 2890-2 ####[facility] [id number] [facility] [place] [address] [place] AMERICAProtein (U) [Mass/Vol]7 mg/dL Normal0-20[facility]ult[facility] HospitalComascension borgess-pipp hospital on above:Order Comment: Specimen Type: URINE SPECIMENOrdering Facility: [facility] Address:[address] [place], [place] [address]Performed By: #### 2890-2 ####[facility] [id number] [facility] RIVERSIDEAJSPXWAMPDE59RBOTJCBIH[address] STATES OF AMERICAAmbulatory Visit Summaryon 77-67-0315Ugvcsvxitv Visit SummaryAmbulatory Visit Summary BRANDI DALTON JR [...] MIKE SLADE MD Where: [facility] [address], [address] [place] [address]- You Need to Schedule the Following Appointments [...] ? 8 oz (237 mL) of milk, hnkaqkf-alsjuqamtqam-kbtgu milk, and calcium- fortifiedfruit juice. Calcium-fortified means that calcium has been added to these drinks. ? 8 oz (237 mL) of kefir, yogurt, and soy yog (more content not included)...[facility] 90-71-3623AglfljyhjUxwjxratw From: Felicita Miranda To: JANET Loomis; Sent: 07/07/2024 11:05:34 EST Show up: 11/04/2024 12:05:00 EDT Subject: Renal US @ [facility] Due Date/Time: 12/05/2024 12:05:00 EDT Reminder Message Renal US prior to 6 month appt. [facility]. Order placed.[facility] Pointe HospitalUrology Office/Clinic Noteon 66-77-1299Etfnzrh Office/Clinic NoteUrology Office/Clinic Note Chief Complaint follwo [...] with voice recognition artificial intelligence software, specifically [employer], [employer] and or [employer]. Substitutions may have occurred due to the inherent limitations of voice recognition and artificial intelligence software. 1. Ureteral stone with hydronephrosis (N13.2: Hydronephrosis with renal and ureteral calculous obstruction) Hx of lithotripsy years ago. Pt presented to [facility] ER 06/01/24 due to left lower quadrant [...] or sooner if needed 4. 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 S/p successful cardioversion 02/2024. On Eliquis for [...] Problem List/Past Medical History (more content not included)...[facility] Pointe HospitalComment on above:Result Comment: Electronically Signed By: MIKE SLADE MD\.br\Date and Time Signed: 07/07/24 12:30 EST\.br\Electronically Co-Signed By: Felicita Miranda\.br\Date and Time Co- Signed: 07/07/24 11:05 ESTXR Urography Retrograde Lefton 01-84-3360GH Urography Retrograde LeftExam Date/Time: 06/16/2024 08:45 EST [...] Dannyr in mGy = 9.05 DAP = [facility] Intraoperative Recordon 79-37-7241Xvos OR Intraoperative RecordMain OR Intraoperative Record IntraOp Document Type FT Summary Primary Physician: MIKE SLADE MD Finalized Date/Time: 06/17/24 13:50:01 Pt. Name: BRANDI DALTON JR/Sex: 1940 Male Med Rec #: [id number] Physician: MIKE SLADE MD Financial #: [id number] Pt. Type: A Room/Bed: Admit/Disch: 06/16/24 06:37:20 [...] Attendee Morgan HERNANDEZ, Osmel SLADE MD, Gigi CUPOLA HOIST OPERATOR, Payam MCKEON Role Performed FUSION JUNCTURE GRINDER Surgeon - Primary Scrub - Primary Time In 06/16/24 08:02:00 06/16/24 08:02:00 06/16/24 08:02:00 Time Out 06/16/24 08:43:00 06/16/24 08:43:00 06/16/24 08:43:00 Procedure CYSTOSCOPY RETROGRADE CYSTOSCOPY RETROGRADE CYSTOSCOPY RETROGRADE STENT INSERTION(Left) STENT INSERTION(Left) STENT INSERTION(Left) Comments DR. LY RN MILITARY Last Modified By: Forest Zuleta Ii, Alfons Ii F Letrondo, Alfons Ii F 06/16/24 12:38:05 06/16/24 12:38:05 06/16/24 12:38:05 Entry 4 Entry 5 Case Attendee Forest Zuleta Ii RT(R), Ofelia Role Performed Railroad Dispatcher - Primary Commercial Maintenance Technician Time In 06/16/24 08:02:00 06/16/24 08:02:00 Time Out 06/16/24 08:43:00 06/16/24 08:43:00 Procedure CYSTOSCOPY RETROGRADE CYSTOSCOPY RETROGRADE STENT INSERTION(Left) STENT INSERTION(Left) Comments Last Modified By: Forest Zuleta Ii, Alfons Ii F 06/16/24 12:38:05 06/16/24 12:38:05 General Comments: ELIA DUMAS IS IN ATTENDANCE. /DARRIAN WADEtelecommunications consultant Protocols FT Pre-Care Text: Implements protective measures [...] Skin Integrity Intact, Pin (more content not included)...[facility] Pointe HospitalDischarge Instructionson 74-43-1799Dhwsxsnkw InstructionsDischarge Instructions BRANDI DALTON JR :1940 Visit [...] as needed for for constipation Pickup at [facility]/pharmacy #6177 New oxycodone (oxyCODONE 5 mg Cap) 1 Capsules By Mouth Every 6 hours as needed for for pain Pickup at [facility]/pharmacy #6177 New tamsulosin (Flomax 0.4 mg Cap) 1 Capsules By Mouth Every day Pickup at [facility]/pharmacy #6177 Changed multivitamin with minerals (Centrum Silver) [...] Microgram By Mouth Every day Pharmacy Information [facility]/pharmacy #6177: [address] [place], [place] [id number] [phone] Test Results No qualifying data available. Allergies No Known Medication Allergies Problems Ongoing - Any problem that you are currently receiving treatment for. Anticoagulated BPH with urinary obstruction Former smoker Frequent urination History of kidney stones Kidney stone Nocturia Renal lesion Ureteral stone with hydronephrosis [employer] [facility] [place], [place] Dr. Kurtis Alegria Post-operative Instructions for [...] start slowly and av (more content not included)...[facility] HospitalComment on above:Result Comment: Electronically Signed By: Serafin COLMENARES, Nathalie Epps\.br\Date and Time Signed: 06/16/24 09:08 ESTInpatient Patient Summaryon [id number] Patient SummaryInpatient Patient Summary [place] [id number] [facility] Clinical Discharge Instructions PERSON INFORMATION Name: BRANDI DALTON JR PHYSICIANS Admitting Physician: MIKE SLADE MD Attending Physician: MIKE SLADE MD PCP: Samantha Maya MD Discharge Diagnosis: Comment: PATIENT EDUCATION INFORMATION Instructions: Medication Leaflets: Follow up: With: Address: When: MIKE SLADE Comments: 1-2 weeks to discuss TURP MEDICATION LIST New Medications [facility]/pharmacy #[id number], [address], [place] [id number], [phone] docusate (Colace 50 mg oral capsule) 1 [...] selenium 200 Microgram By Mouth every day. Comment:[facility] HospitalMain OR PACU II Recordon 63-92-1743Fsiy OR PACU II RecordMain OR PACU II Record PACU Phase II Document Type FT Summary Primary Physician: MIKE SLADE MD Finalized Date/Time: 06/16/24 11:10:23 Pt. Name: BRANDI DALTON JR./Sex: 1940 Male Med Rec #: [id number] Physician: MIKE SLADE MD Financial #: [id number] Pt. Type: A Room/Bed: [facility]/ Admit/Disch: 06/16/24 06:37:20 - Institution: Case [...] Signatures Signed By: Jacquelyn Sheth RN 06/16/24 11:10NoAd[facility] HospitalMain OR Preoperative Recordon 85-28-1029Gqre OR Preoperative RecordMain OR Preoperative Record PreOp Document Type FT Summary Primary Physician: MIKE SLADE MD Finalized Date/Time: 06/16/24 08:32:17 Pt. Name: BRANDI DALTON JR./Sex: 1940 Male Med Rec #: [id number] Physician: MIKE SLADE MD Financial #: [id number] Pt. Type: A Room/Bed: [facility] Admit/Disch: 06/16/24 06:37:20 - Institution: Case [...] Signatures Signed By: Forest Zuleta Ii 06/16/24 08:32[facility] HospitalOperative Reporton [id number] ReportOperative Report Patient: BRANDI DALTON JR Age: [...] in the room agreed. A well-lubricated 22 Macanese scopic sheath with 30 units was inserted [...] obtain a renal ultrasound, KUB in 6 weeks.[facility] HospitalComment on above:Result Comment: Electronically Signed By: MIKE SLADE MD\.br\Date and Time Signed: 06/16/24 09:02 EST Outpatient Surgery Discharge Instructionon 06-68-3131Ivfvjxevtl Surgery Discharge InstructionOutpatient Surgery Discharge Instruction [place] [id number] Patient Discharge Instructions PERSON INFORMATION Name: BRANDI [...] Information: You may receive a survey from [employer] asking you to rate your care experience. Your feedback is important and will help us understand what we do well and how we can improve the quality of care we provide to you, your loved ones and our community. It???s an honor to serve you. Thank you for choosing [facility] HERE ARE THE MEDICATION CHANGES THAT OCCURRED DURING YOUR HOSPITAL STAY New Medications [facility]/pharmacy #[id number], [address], [place] [id number], [phone] docusate (Colace 50 mg oral capsule) 1 [...] every day. PATIENT EDUCATION INFORMATION Instructions: Medication Leaflets:[facility] HospitalCNCOon 79-82-0919LOLXGbfumu TextNormalCTriHealthAmbulatory Visit Summaryon 06-09-2024 Ambulatory Visit SummaryAmbulatory Visit [...] Follow-Up Appointments 2024 12:00 PM EST Where: [facility] 2024 9:00 AM EST Where: [facility] You Need to Schedule the [...] including vitamins, herbs, eye drops, creams, and xwob-fqm-kxnzxxs medicines. ??? Any problems you or family [...] foods, or fatty f (more content not included)...NormalTrihealth Bethesda North HospitalBMPon 39-75-0462Urdjz gap [Moles/Vol]11 mmol/LNormal6-16[facility] North HospitalComment on above: Performed By: #### [id number] #### [facility] [address] [place] [address]Dzukgna [Mass/Vol]9.8 mg/dLNormal8.9-11.1FClinton Memorial HospitalComment on above:Performed By: #### [id number] #### [facility] [address], [place] [address]Fyookxzb [Moles/Vol]101 mmol/JSyrdvr306-472NojbouTrihealth Bethesda North HospitalComment on above:Performed By: #### [id number] #### [facility] [address], [place] [address]CR4 [Moles/Vol]32 mmol/WOiha25-18UtgjxjTrihealth Bethesda North Hospital Comment on above:Performed By: #### [id number] #### [facility] [address], [place] [address]Ekyzygpdum [Mass/Vol]1.3 mg/dLNormal0.5-1.3FClinton Memorial HospitalComment on above:Performed By: #### [id number] #### [facility] [address], [place] [address]Sopucyc [Mass/Vol]90 mg/xBLvahdx77-937PnocuaTrihealth Bethesda North HospitalComment on above:Performed By: #### [id number] #### [facility] [address], [place] [address]Rfqvkvlaw [Moles/Vol]4.5 mmol/LNormal3.5-5.3FClinton Memorial HospitalComment on above:Performed By: #### [id number] #### [facility] [address], [place] [address]Kxfkqh [Moles/Vol]139 mmol/YClsklj382-816KzxbxyTrihealth Bethesda North HospitalComment on above:Performed By: #### [id number] #### [facility] [address], [place] [address]Wgbp nitrogen [Mass/Vol]25 mg/dLHigh5-21Tri[facility] Bethesda North HospitalComment on above:Performed By: #### [id number] #### [facility] [address], [place] [address]Dvtm nitrogen/Creatinine [Mass ratio]19 No StralSnggcv02-01 [facility]hes[facility] North HospitalComment on above:Performed By: #### [id number] #### [facility] [address] [place] [address]NNZ w/ Auto Diffon 05-01-4537Yovjjhcpb/100 WBC (Bld)0.7 %Normal 0.0-2.0Tri[facility] Bethesda North HospitalComment on above:Performed By: #### [id number] #### [facility] [address], [place] [address]Siqrcgxai/Leukocytes Auto (Bld) [Pure # fraction]0.0 E9/LNormal 0.0-0.2FClinton Memorial HospitalComment on above:Performed By: #### [id number] #### [facility] [address] [place] [address]Akrhhzonixl (Bld) [#/Vol]0.5 E9/LNormal0.0-0.5FClinton Memorial HospitalComment on above:Performed By: #### [id number] #### [facility] [address] [place] [address]Hgozxxlxfqp/100 WBC (Bld)7.5 %Normal0.0-8.0[facility] Bethesda North HospitalComment on above:Performed By: #### [id number] #### [facility] [address] [place] [address] 13[address]Fuqnsajvavl distribution width (RBC) [Ratio]12.8 %Normal 10.9-14.2FClinton Memorial HospitalComment on above:Performed By: #### [id number] #### [facility] [address], [place] [address]Upiirgcxrn (Bld) [Volume fraction]38.3 %Ioiedf68.7-49.0[facility]hes[facility] North HospitalComment on above:Performed By: #### [id number] #### [facility] [address], [place] [address]Iocxmfhbge (Bld) [Mass/Vol]13.3 g/dLLow13.5-17.5FClinton Memorial HospitalComment on above:Performed By: #### [id number] #### [facility] [address] [place] [address]Nevtzsazhyk (Bld) [#/Vol]1.0 E9/LNormal1.0-4.0[facility]hes[facility] North HospitalComment on above:Performed By: #### [id number] #### [facility] [address] [place] [address]Xyaseamhjxx/100 WBC (Bld)15.8 %Aqcdjz37.0-50.0[facility] North HospitalComment on above:Performed By: #### [id number] #### [facility] [address] [place] [address]CBN (RBC) [Entitic mass]35.9 jaGdkb63.0-34.0[facility] North HospitalComment on above:Performed By: #### [id number] #### [facility] [address] [place] [address]ZZUM (RBC) [Mass/Vol]34.7 g/nEVorakn24.4-36.0[facility] North HospitalComment on above:Performed By: #### [id number] #### [facility] [address] [place] [address]BDP (RBC) [Entitic vol]103.4 vDDsbh10.0-100.0[facility] North HospitalComment on above:Performed By: #### [id number] #### [facility] [address] [place] [address]Blwtqcznb (Bld) [#/Vol]0.6 E9/LNormal0.2-1.0[facility] North HospitalComment on above:Performed By: #### [id number] #### [facility] [address] [place] [address]Nengycdoius (Bld) [#/Vol]4.4 E9/LNormal2.0-7.5FClinton Memorial HospitalComment on above:Performed By: #### [id number] #### [facility] [address], [place] [address]Fajfqbezqcj/100 WBC (Bld)66.3 %Ufzeqk02.0-75.0[facility] North HospitalComment on above:Performed By: #### [id number] #### [facility] [address], [place] [address]Agsiiele985.0 E9/UFisjni510.0-500.0[facility] Comment on above:Performed By: #### [id number] #### [facility] [address], [place] [address]Vziehdso mean volume (Bld) [Entitic vol]7.9 fLNormal6.4-10.8 [facility] North HospitalComment on above:Performed By: #### [id number] #### [facility] [address], [place] [address]RFU (Bld) [#/Vol]3.7 E12/LLow4.3-5.9[facility] Comment on above:Performed By: #### [id number] #### [facility] [address] [place] [address]QNE corrected for nucl RBC Auto (Bld) [#/Vol]6.6 E9/LNormal 4.0-11.0[facility] North HospitalComment on above:Performed By: #### [id number] #### [facility] [address], [place] [address]FKCDLZEYHQudyleo By: SYSTEM SYSTEM on 13-26-6562Ecepc gap [Moles/Vol]11 mmol/LNormal6 - 16 mEq/LRemisol ChemCalcium [Mass/Vol]9.8 mg/dL Normal8.9 - 11.1 mg/dLRemisol ChemChloride [Moles/Vol]101 mmol/ZDrzypd876 - 111 mmol/LRemisol ChemCO2 [Moles/Vol]32 mmol/LHigh21 - 31 mmol/LRemisol Chem Creatinine [Mass/Vol]1.3 mg/dLNormal0.5 - 1.3 mg/dLRemisol KtesmAJY98 mL/min/1.73 m2Low>=59mL/min/1.73 w5Vvrajbw ChemGlucose [Mass/Vol]90 mg/dLNormal 55 - 199 mg/dLRemisol ChemPotassium [Moles/Vol]4.5 mmol/LNormal3.5 - 5.3 mmol/L Remisol ChemSodium [Moles/Vol]139 mmol/XNdffzz426 - 145 mmol/LRemisol ChemUrea nitrogen [Mass/Vol]25 mg/dLHigh5 - 21 mg/dLRemisol ChemUrea nitrogen/Creatinine [Mass ratio]19 mg/coZujsmv42 - 20Remisol ChemCOAGULATIONOrdered By: Shawanda Andujar on 13-41-5025xXLJ Coag (PPP) [Time]35.3 rBtjuie16.1 - 36.5 second(s)[facility] Auto CoagComment on above:Interpretive Data: Parameter 15 [...] the same coagulation reagent and instrumentation as [facility]. Currently there are no coagulation studies available worldwide for children to 14 days, andno normal ranges. Heparin therapeutic range (represented by Anti-Factor Xa activity of 0.2 - 0.4 U/mL) corresponds to PTT of 56.6 - 109.0 sec.INR Coag (PPP) [Relative time]1.25 {INR}Invalid Interpretation CodePH[facility]ICIANS [facility] Auto CoagComment on above:Interpretive Data: INR results are specifically intended to assess patients stabilized on long-term Anticoagulation therapy suggested INR s Less Intensive Anticoagulation 2.0 3.0 Conventional Range 3.0 4.5PT Coag (PPP) [Time]14.0 [facility]9.4 - 12.5 second(s)[facility] Auto CoagComment on above:Interpretive Data: 15 days [...] the same coagulation reagent and instrumentation as [facility]. Currently there are no coagulation studies available worldwide for children to 14 days, andno normal ranges.HEMATOLOGYOrdered By: SYSTEM SYSTEM on 83-30-1188Rfuynucvz/100 WBC (Bld)0.7 %Normal0.0 - 2.0 %Remisol HemeBasophils/Leukocytes Auto (Bld) [Pure # fraction]0.0 E9/LNormal0.0 - 0.2 E9/LRemisol HemeEosinophils (Bld) [#/Vol]0.5 E9/LNormal0.0 - 0.5 E9/LRemisol HemeEosinophils/100 WBC (Bld)7.5 %Normal0.0 - 8.0 %Remisol HemeErythrocyte distribution width (RBC) [Ratio]12.8 %Zwfepl09.9 - 14.2 %Remisol HemeHematocrit (Bld) [Volume fraction]38.3 %Bejuvz46.7 - 49.0 % Remisol HemeHemoglobin (Bld) [Mass/Vol]13.3 g/dLLow13.5 - 17.5 gm/dLRemisol Heme Lymphocytes (Bld) [#/Vol]1.0 E9/LNormal1.0 - 4.0 E9/LRemisol HemeLymphocytes/100 WBC (Bld)15.8 %Uplctj05.0 - 50.0 %Remisol HemeMCH (RBC) [Entitic mass]35.9 pg High27.0 - 34.0 pgRemisol HemeMCHC (RBC) [Mass/Vol]34.7 g/bPQunkup04.4 - 36.0 gm/dLRemisol HemeMCV (RBC) [Entitic vol]103.4 iXZcfp53.0 - 100.0 fLRemisol Heme Monocytes (Bld) [#/Vol]0.6 E9/LNormal0.2 - 1.0 E9/LRemisol HemeMonocytes/100 WBC (Bld)9.7 %Normal4.0 - 14.0 %Remisol HemeNeutrophils (Bld) [#/Vol]4.4 E9/LNormal 2.0 - 7.5 E9/LRemisol HemeNeutrophils/100 WBC (Bld)66.3 %Mkodku64.0 - 75.0 % Remisol JrkfBunzqrsj498.0 E9/VWawktk949.0 - 500.0 E9/LRemisol HemePlatelet mean volume (Bld) [Entitic vol]7.9 fLNormal6.4 - 10.8 fLRemisol HemeRBC (Bld) [#/Vol] 3.7 E12/LLow4.3 - 5.9 E12/LRemisol HemeWBC corrected for nucl RBC Auto (Bld) [#/Vol]6.6 E9/LNormal4.0 - 11.0 E9/LRemisol HemePT & PTTon 73-08-7137fWRV Coag (PPP) [Time]35.3 second(s)Ehfhyf65.1-36.5[facility] HospitalComment on above:Result Comment: Parameter 15 days [...] the same coagulation reagent and instrumentation as [facility]. Currently there are no coagulation studies available worldwide for children to 14 days, andno normal ranges. Heparin therapeutic range (represented by Anti-Factor Xa activity of 0.2 - 0.4 U/mL) corresponds to PTT of 56.6 - 109.0 sec.Performed By: #### [id number] ####[facility] [address] [place], [place] [address]EFW Coag (PPP) [Relative time]1.25 {INR}Invalid Interpretation CodeTrihealth Bethesda North HospitalComment on above:Result Comment: INR results are specifically intended to assess patients stabilized on long-term Anticoagulation therapy suggested INR???s ???Less Intensive Anticoagulation??? 2.0 ??? 3.0 Conventional Range 3.0 ??? 4.5Performed By: #### [id number] ####[address] [place] [id number] [place], [place] [address]GB Coag (PPP) [Time] 14.0 second(s)High9.4-12.5[facility] HospitalComment on above:Result Comment: 15 days - [...] the same coagulation reagent and instrumentation as [facility]. Currently there are no coagulation studies available worldwide for children to 14 days, andno normal ranges.Performed By: #### [id number] ####[facility] [address] [place], [place] [address]VW with Cult Rflxon 06-09-2024 Bilirubin Ql (U)NegativeNormalNegativeTrihealth Bethesda North HospitalComment on above:Performed By: #### [id number] #### [facility] [address], [place] [address]Jcvhtri (U)ClearNormalClearTrihealth Bethesda North HospitalComment on above:Performed By: #### [id number] #### [facility] [address], [place] [address]Uqrnl (U)Light-YellowNormalYellowTrihealth Bethesda North Hospital Comment on above:Result Comment: Microscopic readings are only performed on those samples that meet specific criteria set forth by [facility].Performed By: #### [id number] #### [facility] [address], [place] [address]Owudryp Ql (U)NegativeNormalNegBrecksville VA / Crille Hospital Comment on above:Performed By: #### [id number] #### [facility] [address], [place] [address]Qipijiuitf Auto test strip (U) [Mass/Vol]NegativeNormalNegative [facility] North HospitalComment on above:Performed By: #### [id number] #### [facility] [address], [place] [address]Aszdnuq Auto test strip Ql (U)NegativeNormalNegativeTrihealth Bethesda North HospitalComment on above:Performed By: #### [id number] #### [facility] [address], [place] [address]Wnajqvnsk esterase Auto test strip Ql (U)NegativeNormalNegative [facility] North HospitalComment on above:Performed By: #### [id number] #### [facility] [address], [place] [address]Ctqoraa Auto test strip Ql (U)NegativeNormalNegativeTrihealth Bethesda North HospitalComment on above:Performed By: #### [id number] #### [facility] [address], [place] [address]oT (U)5.5 [pH]Invalid Interpretation Code5.0-9.0[facility] North HospitalComment on above:Performed By: #### [id number] #### [facility] [address], [place] [address]Esdttrr Ql (U)NegativeNormalNegativeTrihealth Bethesda North Hospital Comment on above:Performed By: #### [id number] #### [facility] [address], [place] [address]Nnozrzcb gravity (U) [Rel density]1.012Invalid Interpretation Code1.005-1.030[facility] North HospitalComment on above:Performed By: #### [id number] #### [facility] [address], [place] [address]Adrjwrbbnptf (U) [Mass/Vol]NegativeNormalNegBrecksville VA / Crille HospitalComment on above:Performed By: #### [id number] #### [facility] [address] [place] [address]Vctq of Urine collection methodClean CatchCleveland Clinic South Pointe HospitalComment on above:Performed By: #### [id number] #### [facility] [address], [place] [address]ZRHDKPYKMVCtwfrce By: SYSTEM SYSTEM on 77-61-8080Gzttuhvwm Ql (U)NegativeNormalNegativemg/dLFT UA Auto SSClarity (U)Clear (06/09/24 12:42 PM)NormalClearFINTEGRIS GR[facility] U[facility] Auto SSColor (U)Light-Yellow 1 (06/09/24 12:42 PM)NormalYellowPH[facility]IC[facility] UA Auto SSComment on above:Interpretive Data: Microscopic readings are only performed on those samples that meet specific criteria set forth by [facility].Glucose Ql (U) NegativeNormalNegativemg/dLFT UA Auto SSHemoglobin Auto test strip (U) [Mass/Vol]NegativeNormalNegativemg/dLFT UA Auto SSKetones Auto test strip Ql (U)NegativeNormalNegativemg/dLFT UA Auto SSLeukocyte esterase Auto test strip Ql (U)NegativeNormalNegativeLeu/uLFT UA Auto SSNitrite Auto test strip Ql (U) NegativeNormalNegativemg/dLPH[facility] Auto SSpH (U)5.5 *NA* (06/09/24 12:42 PM)Invalid Interpretation Code5.0 - 9.0[facility] UA Auto SSProtein Ql (U)NegativeNormalNegativemg/dLPH[facility]ICI[facility] UA Auto SSSpecific gravity (U) [Rel density] 1.012 *NA* (06/09/24 12:42 PM)Invalid Interpretation Code1.005 - 1.030[facility] UA Auto SS Urobilinogen (U) [Mass/Vol]NegativeNormalNegativemg/dLPH[facility]ICI[facility]A Auto SSURINALYSIS Ordered By: Jacquelyn Sheth on 49-67-0767WE Spec DescClean Catch (06/09/24 12:42 PM)NormalPH[facility] UA Auto SSUrology Office/Clinic Noteon 06-09-2024 Urology Office/Clinic NoteUrology Office/Clinic Note Chief Complaint er f/u HPI Staff 83 yr male here for [facility] ED f/u for kidney stones. No records [...] with voice recognition artificial intelligence software, specifically [employer] and or [employer]. Substitutions may have occurred due to the inherent limitations of voice recognition and artificial intelligence software. 1. Ureteral stone with hydronephrosis (N13.2: Hydronephrosis with renal and ureteral calculous obstruction) Hx of lithotripsy years ago. Pt presented to [facility] ER 06/01/24 due to left lower quadrant [...] US results at f/up 3. 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 S/p successfu (more content not included)...[facility] Po[facility] HospitalComment on above:Result Comment: Electronically Signed By: MIKE SLADE MD\.br\Date and Time Signed: 06/09/24 10:26 EST\.br\Electronically Co-Signed By: Felicita Miranda\.br\Date and Time Co-Signed: 06/09/24 10:20 EST\.br\Electronically Co-Signed By: Felicita Miranda\.br\Date and Time Co-Signed:06/09/24 10:22 ESTXR Chest 2 Viewson 12-60-2004IA Chest 2 ViewsExam Date/Time: 06/09/2024 12:53 EST [...] Ka,r in mGy = na DAP = naNormalTrihealth Bethesda North HospitaleGFRon 27-16-6504oCHI43 mL/min/1.73 m2 Low>=59Tri[facility]hes[facility] North HospitalComment on above:Performed By: #### [id number] #### [facility] [address] [place], [place] [address]Gweza metabolic 2000 panelon 79-80-9522Mzchr gap [Moles/Vol]13 mmol/LNormal8-15[facility] HospitalComascension borg[facility] on above:Order Comment: Specimen Type: BLOOD SPECIMENOrdering Facility: [facility] Address:[address] [place], [place] [address]Performed By: #### 08667-2, 24877-5 ####[facility] LABCLIA [id number] [place] [address] [address] [place] OF AMERICACalcium [Mass/Vol]10.2 mg/dL Normal8.5-10.2CTriHealthComascension borgess-pipp hospital on above:Order Comment: Specimen Type: BLOOD SPECIMENOrdering Facility: [facility] Address:[address] [place], [place] [address]Performed By: #### 87755-2, 98304-3 ####[facility] LABCLIA [id number] [place] [address] [place] AMERICAChloride [Moles/Vol]101 mmol/L Sssdic25-423NohcootkzSouthwest General Health Center on above:Order Comment: Specimen Type: BLOOD SPECIMENOrdering Facility: [facility] Address:[address] [place], [place] [address]Performed By: #### 52181-2, 07865-9 ####[facility] LABCLIA [id number] [place] [address] [place] AMERICACO2 [Moles/Vol]25 mmol/OSkmusp78-64WznvsuxwfSouthwest General Health Center on above:Order Comment: Specimen Type: BLOOD SPECIMENOrdering Facility: [facility] Address:[address] [place], [place] [address]Performed By: #### 98266-2, 33140-8 ####[facility] LABCLIA [id number] [place] [address] [place] AMERICACreatinine [Mass/Vol]1.32 mg/dLHigh0.73-1.22[facility] on above:Order Comment: Specimen Type: BLOOD SPECIMENOrdering Facility: [facility] Address:[address] [place], [place] [address]Performed By: #### 37803-1, 25235-4 ####[facility] LABIA [id number] [place] [address] [place] AMERICACreatinine and Glomerular filtration rate.predicted panel (S/P/Bld)54 mL/min/1.73m???Low>=60[facility] on above:Order Comment: Specimen Type: BLOOD SPECIMENOrdering Facility: [facility] Address:[address] [place], [place] [address]Result Comment: Estimated Glomerular Filtration Rate (eGFR) is calculated using the 2020 CKD-EPI creatinine equation. This equation utilizes serum creatinine, sex, and age as parameters. The creatinine assay has traceable calibration to isotope dilution-mass spectrometry. Refer to KDIGO guidelines for clinical interpretation. In patients with unstable renal function, e.g. those with acute kidney injury, the eGFR may not accurately reflect actual GFR.Performed By: #### 34968-3, 71407-2 ####[facility] LABIA [id number] [place] [address] [place] AMERICAGlucose [Mass/Vol]100 mg/dLHigh 74-99[facility] on above:Order Comment: Specimen Type: BLOOD SPECIMENOrdering Facility: [facility] Address:[address] [place], [place] [address]Result Comment: The [place] Diabetes Association (ADA) provides guidance for cutoff [...] Standards of Medical Care in Diabetes 2016, [place] Diabetes Association. Diabetes Care. 2016.39(Suppl 1).Performed By: #### 54856-5, 68467-0 ####[facility] [id number] [place] [address] [place] OF AMERICAPotassium [Moles/Vol]4.7 mmol/L Normal3.7-5.1CTuscarawas Hospital on above:Order Comment: Specimen Type: BLOOD SPECIMENOrdering Facility: [facility] Address:[address] [place], [place] [address]Performed By: #### 70388-8, 01046-8 ####[facility] [id number] [place] [address] [place] AMERICASodium [Moles/Vol]139 mmol/OOjfdkg748-575KxovsdcsnSouthwest General Health Center on above:Order Comment: Specimen Type: BLOOD SPECIMENOrdering Facility: [facility] Address:[address] [place], [place] [address]Performed By: #### 66481-2, 30741-9 ####[facility] [id number] [place] [address] [place] OF AMERICAUrea nitrogen [Mass/Vol]33 mg/dLHigh9-24[facility] on above:Order Comment: Specimen Type: BLOOD SPECIMENOrdering Facility: [facility] Address:[address] [place], [place] [address]Performed By: #### 99633-6, 90140-1 ####[facility] [id number] [place] [address] [place] OF AMERICACNOVon 61-00-5775TKABOeguyf Visit (CARD CHF RHONA) BRANDI DALTON ([id number]) 1940 M Date Time Provider Department 05/24/24 10:15 AM KENDRA MENDOZA CARD CHF RHONA During your visit today, we recorded the following information about you: Pulse Respiration Blood pressure Weight 60/minute 15/minute 165/79 70.3 kg Height 1.651 m Kendra Mendoza MD 05/24/2024 5:30 PM Signed Heart and Vascular [facility] SECTION OF HEART FAILURE and CARDIAC TRANSPLANT MEDICINE OUTPATIENT VISIT DATE May 24, 2024 OUTPATIENT VISIT TYPE Established Patient PRIMARY CARE PHYSICIAN: Samantha Maya [address] [place] [address] CHIEF COMPLAINT: HF f/u NURSING INTAKE (Patient?s [...] Take 5 mg by mouth once daily. Ndxymifwmzpmf-Nijwgmld-Wafiqh (CENTRUM SILVER) tab Take 1 tablet by [...] lb 8 oz) SpO2 (more content not included)...[facility]-2024 EchocardiographyEchocardiography Report: Transthoracic Echo [facility] J35 Date of service: 05/24/2024 8:08:07 [...] * * * Final * * * [employer] [facility] : [id number]o [facility] HospitalNT-proBNP SerPl-mCncon 36-88-2004Vgxcxaxpvzo peptide.B prohormone N-Terminal [Mass/Vol]338 pg/mLNormal<450[facility] Comment on above:Order Comment: Specimen Type: BLOOD SPECIMENOrdering Facility: [facility] Address:[address] [place] [address] Performed By: #### 82972-3, 04677-2 ####[facility] [id number] [facility] CAMPUSDESK L61NCCTSGR[place] [address] [place] JASKARAN CNCOon 94-62-8161OAMIEkfnqr TextNormalCTriHealthCNPNon 61-32-5747NKAQKhfcdclph (CARDMN) BRANDI DALTON ([id number]) 1940 M Date Time Provider Department 05/10/24 RD QURESHI CARDNAYANA During your visit today, we recorded the following information about you: Georgia Cannon 05/10/2024 10:41 AM Signed May 10, 2024 Patient Contact Number: [phone] (home) [phone] (work) [phone] (cell) Patient last seen within the last [...] by mouth two times a day. - Nnsavjqsvrywj-Osesjzkd-Hgkccr (CENTRUM SILVER) tab Take 1 tablet by [...] (None) Encounter Status:Closed by IAN HOGUE on 05/16/24[facility] 98-34-2825JTDYHixrzf Visit (CARD [facility] RHONA) BRANDI DALTON ([id number]) 1940 M Date Time Provider Department 03/18/24 10:00 AM COMPA CORCORAN [facility] RHONA During your visit today, we recorded the following information about you: Pulse Blood pressure Weight Height 69/minute 147/86 70.9 kg 1.651 m Compa Corcoran APRN.COMMUNICATION LECTURER 03/18/2024 4:06 PM [facility] SECTION OF HEART FAILURE and CARDIAC TRANSPLANT MEDICINE OUTPATIENT VISIT DATE 03/18/2024 PRIMARY CARE PHYSICIAN: Samantha Maya [address] [place] [address] PRIMARY HEART FAILURE CONTRACT SERVICEMAN: Dr. Mendoza CHIEF COMPLAINT: Follow-up HISTORY OF [...] Take 40 mg by mouth once daily. Bwcollhdrqjmr-Rkdoaotb-Padufj (CENTRUM SILVER) tab Take 1 tablet by [...] No gallop. No Rub. (more content not included)...NormalRegency Hospital Cleveland East COMPLETEon 31-50-6425KNU COMPLETEVentricular Rate : 79 BPM Atrial Rate : 71 BPM P-R Interval : 212 ms QRS Duration : 116 ms Q-T Interval : 394 ms QTC Calculation(Bazett) : 451 ms Calculated P Salyer : 86 degrees Calculated R Salyer : 60 degrees Calculated T Salyer : 1 degrees SINUS RHYTHM WITH 1ST DEGREE AV BLOCK WITH PREMATURE VENTRICULAR COMPLEXES NONSPECIFIC ST ABNORMALITY ABNORMAL ECG Reconfirmed by CHANDRIKA NEVAREZ MD ([id number]) on 04/13/2024 4:08:20 PM NAME : BRANDI DALTON PID : [id number] : 1940 Gender : Male Race : ORD : [id number] Procedure Date : Mar 18 2024 08:33:32 Edit Date : Apr 13 2024 16:08:24 Diagnosis: SINUS RHYTHM WITH 1ST DEGREE AV BLOCK WITH PREMATURE VENTRICULAR COMPLEXES NONSPECIFIC ST ABNORMALITY ABNORMAL ECG Reconfirmed by CHANDRIKA NEVAREZ MD ([id number]) on 04/13/2024 4:08:20 PM Test Reason : Location : 314 : 14 Overread By : CHANDRIKA NEVAREZ MD Edited By : CHANDRIKA NEVAREZ MD Referred By : ARSEN TALAVERA Acquired by : Randy MURPHYTrumbull Memorial Hospital TRANSESOPHAGEAL on 28-92-0963BJSYMOVBRMM: - Exam indication: Pre Cardioversion, Pre AF [...] [facility] Echocardiography Report: Transesophageal Echo [facility] J1-5 Date of service: 02/09/2024 1:23:25 PM MANAGER Ordering physician: KENDRA MENDOZA Indication: Pre Cardioversion, [...] evidence of intracardiac shunting. [facility]ART AND VASCULAR INSTITUTEOhio State University Wexner Medical CenterECG 12 Leadon 33-18-0705QJF revealed atrial fibrillation with RVR, diffuse ST and T changesCPMetroHealth [facility] Work Phone: Office Visit (Cardiology)on 22-65-8224Npqrio-up visit Diagnoses/Problems Assessed Persistent atrial fibrillation with [...] 500 MG CAPSTAKE 1 CAPSULE Daily Saw Newbern 450 MG Oral CapsuleTAKE DIRECTED. Selenium 200 [...] Vital Signs Recorded: 01Dec2022 01:03PMRecorded: 01Dec2022 12:48PM Gakviuuq60044, RUE, Sitting Rhejfpiwt5766, RUE, Sitting Heart Rate76, L Radial Height5 ft 6 in Xidtrl756 lb BMI Czhxwztwfh75.41 kg/m2 BSA Calculated1.89 Tobacco Useb) No Falls Screening (Age 18+)a) No falls within the (more content not included)... NormalUH TouchworksTobacco Screening.on 84-47-1620Xjxj risk assessmenta) No falls within the last vngkDN-Wmjbzbedaf-Irrwjzzl 250 DO Work Phone: Tobacco use status CPHSb) CjXZ-Gassrtdevn-Frptwqjp 250 DO Work Phone: [facility] echo transesophageal TEEon 15-59-3637RTL echo [facility]es[facility] [place] [address] [place] [address] Echocardiogram Signed Patient: Brandi Dalton MR#: [id number] : 1940 Acct:[id number] Age/Sex: 82 / M ADM Date: 10/31/22 Loc: [place] Room: Type: [facility] Attending Dr: Avelina Chowdhury MD Ordering Provider: Avelina Chowdhury MD, [facility] Date of Service: 10/31/22/ ECH/ECH echo transesophageal SHARON: DYSPNEA, MR, A-FIB. Copies to: Avelina Chowdhury MD, [facility] Reason For Study: DYSPNEA, MR, [...] 10/31/22 1247 Signed By: Avelina Chowdhury MD, [facility] 10/31/[address] Charles HospitalBasi Metabolic Panelon 25-61-1651Hwepu gap [Moles/Vol]9.3 mmol/L Normal6.0-15.0Wexner Medical CenterComment on above:Performed By: #### BMP, CBC #### [address] [address] USACalcium [Mass/Vol]9.1 mg/dLNormal8.6-10.3FFisher-Titus Medical CenterComment on above:Result Comment: PERFORMED BY: [place] [address] PATHOLOGIST TALENT SOURCING SPECIALIST LILLIAN TILLMAN M.D.Performed By: #### BMP, CBC #### [place] [address] USAChloride [Moles/Vol]101 mmol/HXvrlrn23-418QzjopifgjWexner Medical CenterComment on above:Performed By: #### BMP, CBC #### [place] [address] USACO2 [Moles/Vol]34.3 mmol/LHigh21.0-31.0Wexner Medical CenterComment on above:Performed By: #### BMP, CBC #### [place] [address] USACreatinine [Mass/Vol]1.30 mg/dLNormal0.70-1.30W[facility]ner Medical CenterComment on above:Performed By: #### BMP, CBC #### [place] [address] USAGFR/1.73 sq M.predicted MDRD (S/P/Bld) [Vol rate/Area] 54.849 mL/min/{1.73_m2}NormalWexner Medical CenterComment on above: Performed By: #### BMP, CBC #### [place] [address] USAGlucose [Mass/Vol]89 mg/zQWgnlhr17-738ZbcmbgornWexner Medical CenterComment on above:Result Comment: Random Glucose Reference Range is dependent on time and content of last meal. Glucose of more than 200 mg/dL in a nonstressed, ambulatory subject supports the diagnosis of Diabetes Mellitus. ADA recommended reference rangePerformed By: #### BMP, CBC #### [place] [address] USAPotassium [Moles/Vol]4.6 mmol/LNormal3.5-5.1FFisher-Titus Medical CenterComment on above:Performed By: #### BMP, CBC #### [address] [place] [address] USASodium [Moles/Vol]140 mmol/WRjfdyz158-856WmdlrhreaWexner Medical CenterComment on above:Performed By: #### BMP, CBC #### [facility] [address] [place] [address] USAUrea nitrogen [Mass/Vol]29 mg/dLHigh7-25Wexner Medical CenterComment on above:Performed By: #### BMP, CBC #### [facility] [address] [place] [address] USAComplete Blood Count Auto Diffon 73-32-3844Lhbopiuaz (Bld) [#/Vol]0.1 10*3/uLNormal0.0-0.2FFisher-Titus Medical CenterComment on above:Result Comment: PERFORMED BY: [place] [address] PATHOLOGIST TALENT SOURCING SPECIALIST LILLIAN TILLMAN M.D.Performed By: #### BMP, CBC #### [place] [address] USABasophils/100 WBC (Bld)1.1 %Normal.Wexner Medical CenterComment on above:Performed By: #### BMP, CBC #### [place] [address] USAEosinophils (Bld) [#/Vol]0.2 10*3/uLNormal0.0-0.45 Wexner Medical CenterComment on above:Performed By: #### BMP, CBC #### [place] [address] USAEosinophils/100 WBC (Bld)3.2 %Normal.Wexner Medical CenterComment on above:Performed By: #### BMP, CBC #### [place] [address] USAErythrocyte distribution width (RBC) [Ratio]14.4 %Normal 12.0-14.8Wexner Medical CenterComment on above:Performed By: #### BMP, CBC #### [place] [address] USAHematocrit (Bld) [Volume fraction]43.0 %Rvjrlr72.8-50.0 We[facility]ner Medical CenterComment on above:Performed By: #### BMP, CBC #### [facility] [address] [place] [address] USAHemoglobin (Bld) [Mass/Vol]14.4 g/rEOxdkkj22.0-17.0 We[facility] Medical CenterComment on above:Performed By: #### BMP, CBC #### [facility] [address] [place] [address] USALymphocytes (Bld) [#/Vol]1.0 10*3/uLNormal1.00-4.8 [facility]ner Medical CenterComment on above:Performed By: #### BMP, CBC #### [place] [address] USALymphocytes/100 WBC (Bld)21.1 %Normal.Wexner Medical CenterComment on above:Performed By: #### BMP, CBC #### [facility] [address] [place] [address] USAMCH (RBC) [Entitic mass]33.8 xiQjuozz18.5-35.2FFisher-Titus Medical CenterComment on above:Performed By: #### BMP, CBC #### [place] [address] USAMCV (RBC) [Entitic vol]100.8 lNIfyslu37.5-101Wexner Medical CenterComment on above:Performed By: #### BMP, CBC #### [facility] [address] [place] [address] USAMean Corpuscular HGB Conc33.5 g/xZSawhpw21.5-35.6FFisher-Titus Medical CenterComment on above:Performed By: #### BMP, CBC #### [facility] [address] [place] [address] USAMonocytes (Bld) [#/Vol]0.6 10*3/uLNormal0.0-0.8Wexner Medical CenterComment on above:Performed By: #### BMP, CBC #### [facility] [address] [place] [address] USAMonocytes/100 WBC (Bld)11.8 %Normal.Wexner Medical CenterComment on above:Performed By: #### BMP, CBC #### [facility] [address] [place] [address] USANeutrophils (Bld) [#/Vol]2.9 10*3/uLNormal1.8-7.7FFisher-Titus Medical CenterComment on above:Performed By: #### BMP, CBC #### [facility] [address] [place] [id number] USANeutrophils/100 WBC (Bld)62.8 %Normal.Wexner Medical CenterComment on above:Performed By: #### BMP, CBC #### [facility] [address] [place] [address] USANRBC%0.1 /100{WBC}Normal0-0.5FFisher-Titus Medical CenterComment on above:Performed By: #### BMP, CBC #### [facility] [address] [place] [address] USAPlatelet mean volume (Bld) [Entitic vol]8.0 fLNormal 6.6-10.1FFisher-Titus Medical CenterComment on above:Performed By: #### BMP, CBC #### [facility] [address] [place] [address] USAPlatelets (Bld) [#/Vol]213 10*3/sZAhqbqr079-049QoufcovvjWexner Medical CenterComment on above:Performed By: #### BMP, CBC #### [facility] [address] [place] [address] USARBC (Bld) [#/Vol]4.27 10*6/uLNormal3.90-5.60Wexner Medical CenterComment on above:Performed By: #### BMP, CBC #### [facility] [address] [place] [address] USAWBC (Bld) [#/Vol]4.7 10*3/uLNormal4.1-10.5FFisher-Titus Medical CenterComment on above:Performed By: #### BMP, CBC #### [facility] [address] [place] [id number] [facility]ENTEROffice Visit (Cardiology)on 54-73-8835Bjmltu-up visit Diagnoses/Problems Assessed Mitral valve regurgitation (424.0) [...] time. Had an echocardiogram done recently at [facility] which I havethe report reviewed. It [...] NameInst (more content not included)...NormalUH TouchworksTobacco Screening.on 13-33-6075Qqnpp depression screening assessmentNo-[facility] HeartBlendagram 250 DO Work Phone: Fall risk assessmenta) No falls within the last year [facility] Heart-Maya 250 DO Work Phone: Tobacco use status CPHSb) NoM-[facility] Heart- [place] 250 DO Work Phone: ECHOCARDIO M/2D COMPLETEon 46-07-3261TSTWPMFSVA M/2D COMPLETEPatient: BRANDI ADLTON Exam Date: 09/16/2022 : 1940 Gender:M Ordering : DR SAMANTHA MAYA . Admission #: [id number] Family : Order #: [id number] CLICK HERE TO VIEW EXAM ECHOCARDIOGRAM REPORT [...] by: Jt Lackey M.D. on 09/16/2022 at 20:23NoBluffton HospitalBNPon 53-61-9098Cgqsrzdscae peptide B (Bld) [Mass/Vol]154.0 pg/mLNormal <=1,800.0The [facility] HospitalComment on above:Performed By: #### TSH, T7, CMP, BNP ####[facility] Vnifibyrxa[address] [place], [place] [address]Dr. Elver GibsonCBC AUTO DIFFon 96-19-0811XXXQ #0.0 103/ulNormal0.0-0.1The [facility] HospitalComment on above:Performed By: #### CBC ####[facility] Sbagcbicio[address] [place], [place] [address]Dr.Elver ChangBasophils/100 WBC (Bld)0.6 %Normal0.2-2.0The [facility] HospitalComment on above:Performed By: #### CBC ####[facility] Ftxngdtuzc[address] [place], [place] [address]Dr.Mariannelan ChangEO #0.2 103/ulNormal0.0-0.7The [facility] HospitalComment on above:Performed By: #### CBC ####[facility] Tvscyfwggm[address] [place], [place] [address]Dr.Elver ChangEosinophils/100 WBC (Bld)4.1 %Normal 0.9-7.0The [facility] HospitalComment on above:Performed By: #### CBC ####[facility] Ufcbygjobh[address] [place], [place] [address]Dr.Elver Gibson Erythrocyte distribution width (RBC) [Ratio]13.5 %Hzrtvv27.0-15.0The [facility] HospitalComment on above:Performed By: #### CBC ####[facility] Csslayojie[address] [place], [place] [address]Dr.Elver ChangHematocrit (Bld) [Volume fraction]42.9 %Tzhpld82.0-54.0The [facility] HospitalComment on above:Performed By: #### CBC ####[facility] Dexipjwbff4[address] [place], [place] [address]Dr.Elver ChangHemoglobin (Bld) [Mass/Vol]14.5 g/dL Cwaizk78.0-18.0The [facility] HospitalComment on above:Performed By: #### CBC ####[facility] Rbyrozwqei43[address] [place], [place] [address]Dr. Elver ChangIG #0.01 10e3/ulNormal0.00-0.03The [facility] HospitalComment on above: Performed By: #### CBC ####[facility] Kgfjeuvqxw[address] [place], [place] [address]Dr.Elver ChangIG %0.2 %Normal0.0-0.5The [facility] HospitalComment on above:Performed By: #### CBC ####[facility] Kzjyislpwh[address] [place], [place] [address]Dr.Elver GibsonLYMPH #1.2 103/ulNormal1.2-3.8The [facility] HospitalComment on above:Performed By: #### CBC ####[facility] Aqdebnhhhf8[address] [place], [place] [address]Dr. Elver ChangLymphocytes/100 WBC (Bld)21.8 %Excjhq20.5-60.0The [facility] Comment on above:Performed By: #### CBC ####[facility] [address] [place] [address]Dr.Elver GibsonMANUAL DIFF REQNONormalThe [facility] HospitalComment on above:Performed By: #### CBC ####[facility] R[address]xjsqfff[address] [place] [address]Dr.Elver GibsonH (RBC) [Entitic mass]33.4 prHdvzwr28.9-34.0The [facility]ford HospitalComment on above: Performed By: #### CBC ####[facility] Irgffikkxk[address] [place], [place] [address]Dr.Elver GibsonHC (RBC) [Mass/Vol]33.8 g/dLNormal 29.9-35.2The [facility] HospitalComment on above:Performed By: #### CBC ####[facility] Qrcnuqkscx[address] [place], [place] [address]Dr. Elver GibsonV (RBC) [Entitic vol]98.8 fLCritically high80.0-94.0The [facility] HospitalComment on above:Performed By: #### CBC ####[facility] Gssacxfewn[address] [place], [place] [address]Dr.Elver GibsonMONO #0.7 103/ulNormal0.3-0.8The [facility] HospitalComment on above:Performed By: #### CBC ####[facility] Foqaoeuufu5[address] [place], [place] [address]Dr. Elver ChangMonocytes/100 WBC (Bld)13.3 %Critically high1.7-12.0The [facility] HospitalComment on above:Performed By: #### CBC ####[facility] Kxflomyvoy[address] [place], [place] [address]Dr.Elver ChangNEUT #3.3 103/ulNormal1.4-6.5The [facility] HospitalComment on above:Performed By: #### CBC ####[facility] Dwsifeeanx[address] [place], [place] [address]Dr. Mariannelan ChangNeutrophils/100 WBC (Bld)60.0 %Ibfjhr86.0-75.0The [facility] Comment on above:Performed By: #### CBC ####[facility] X[address]iheeami[address] [place] [address]Dr.Elver GibsonPlatelet mean volume (Bld) [Entitic vol]9.5 fLNormal9.5-13.5The [facility] HospitalComment on above:Performed By: #### CBC ####[facility] Tumwfrvlnq[address] [place], [place] [address]Dr.Mariannelan JcmxwABS866 103/ifIbnhia678-715Igu [facility] HospitalComment on above:Performed By: #### CBC ####[facility] Lcocrpltdh[address] [place], [place] [address]Dr.Mariannelan ChangRBC4.34 106/ulCritically low4.70-6.10The [facility] HospitalComment on above:Performed By: #### CBC ####[facility] Ckkhtdvwul[address] [place], [place] [address]Dr.Elver ChangWBC5.4 103/ul Normal4.0-11.0The [facility] HospitalComment on above:Performed By: #### CBC ####[facility] Fjxckecbfm[address] [place], [place] [address]Dr. Mariannelan ChangFREE THYROXINE INDEX T7on 17-60-6482UWJ5.83Dptwgo0.30-4.50The [facility] HospitalComment on above:Performed By: #### TSH, T7, CMP, BNP ####[facility] Xqinubuytx[address] [place], [place] [address]Dr. Elver YemtjA3V35.0 %Ypwqcz93.0-40.0The [facility] HospitalComment on above: Performed By: #### TSH, T7, CMP, BNP ####[facility] Crvjlcyhja[address] [place], [place] [address]Dr. Mariannelan ChangT4 [Mass/Vol]6.30 ug/dLNormal 4.50-12.10The [facility] HospitalComment on above:Performed By: #### TSH, T7, CMP, BNP ####[facility] Fjvdmuhnhr[address] [place], [place] [address]Dr. Yilan ChangPROF 14(COMP METB)on 99-24-2624Pinwfok [Mass/Vol]3.8 g/dLNormal 3.4-5.0The [facility] HospitalComment on above:Performed By: #### TSH, T7, CMP, BNP ####[facility] Ecnzagmrqa47[address] [place], [place] [address]Dr. Yilan ChangAlbumin/Globulin [Mass ratio]1.1 {ratio}NormalThe [facility] Comment on above:Performed By: #### TSH, T7, CMP, BNP ####[facility] Xmvntinhii91[address] [place], [place] [address]Dr. Yilan ChangALP [Catalytic activity/Vol]74 U/ZUvjmph16-013Vza [facility] HospitalComment on above:Performed By: #### TSH, T7, CMP, BNP ####[facility] Ospuyzgbuo90[address] [place], [place] [address]Dr. Yilan ChangALT [Catalytic activity/Vol]27 U/LNormal 16-63The [facility] HospitalComment on above:Performed By: #### TSH, T7, CMP, BNP ####[facility] Xkbgufwxpy[address] [place], [place] [address]Dr. Yilan ChangAnion gap [Moles/Vol]10.8 mmol/LNormalThe [facility] Hospital - Andersonment on above:Performed By: #### TSH, T7, CMP, BNP ####[facility] Rvehkpcnns[address] [place], [place] [address]Dr. Yilan ChangAST [Catalytic activity/Vol] 30 U/XEylpqc03-88Rns [facility] HospitalComment on above:Performed By: #### TSH, T7, CMP, BNP ####[facility] Kwcesijlbq8[address] [place], [place] [address]Dr. Yilan ChangBilirubin [Mass/Vol]0.7 mg/dLNormal0.2-1.0The [facility] HospitalComment on above:Performed By: #### TSH, T7, CMP, BNP ####[facility] Zptsnkyjyg[address] [place], [place] [address]Dr. Yilan Gibson Calcium [Mass/Vol]9.3 mg/dLNormal8.5-10.1The [facility] HospitalComment on above: Performed By: #### TSH, T7, CMP, BNP ####[facility] [address]ifb[address] [place] [address]Dr. Yilan ChangChloride [Moles/Vol]104 mmol/L Pqlwgf73-641Fmu [facility] on above:Performed By: #### TSH, T7, CMP, BNP ####[facility] Rwedxyjzqs[address] [place], [place] [address]Dr. Yilan ChangCO2 [Moles/Vol]31.9 mmol/VDabmqi19.0-32.0The [facility] HospitalComascension borg[facility]pp [facility] on above:Performed By: #### TSH, T7, CMP, BNP ####[facility] Pxfszrpisw[address] [place], [place] [address]Dr. Yilan Gibson Creatinine [Mass/Vol]1.19 mg/dLNormal0.70-1.30The [facility] on above:Performed By: #### TSH, T7, CMP, BNP ####[facility] Himylhmsji[address] [place], [place] [address]Dr. Yilan ChangEGFR-AF [place]ONG K[place]ER>60Normal>=60 [facility] on above:Performed By: #### TSH, T7, CMP, BNP ####[facility] [address]xrltr[address] [place] [address]Dr. Yilan ChangEGFR-NON AF LFXCDLKR84 mL/min/1.11s8Ihxtattoks low>=60The [facility] on above:Performed By: #### TSH, T7, CMP, BNP ####[facility] Hyxuuqqsrx[address] [place], [place] [address]Dr. Yilan Gibson Globulin (S) [Mass/Vol]3.5 g/dLNormalThe [facility] HospitalComascension borgess-[facility] on above: Performed By: #### TSH, T7, CMP, BNP ####[facility] [address] [address]Dr. Yilan ChangGlucose [Mass/Vol]124 mg/dL Critically awjo37-657[facility] on above:Performed By: #### TSH, T7, CMP, BNP ####[facility] [address] [address]Dr. Yilan ChangPotassium [Moles/Vol]4.7 mmol/LNormal3.5-5.1The [facility] HospitalComment on above:Performed By: #### TSH, T7, CMP, BNP ####[facility] [address] [address]Dr. Yilan ChangProtein [Mass/Vol]7.3 g/dLNormal6.4-8.2The [facility] HospitalComment on above:Performed By: #### TSH, T7, CMP, BNP ####[facility] [address] [address]Dr. Yilan ChangSodium [Moles/Vol]142 mmol/ISkuefk287-268Pkh [facility] HospitalComment on above: Performed By: #### TSH, T7, CMP, BNP ####[facility] Zke[address] [place], [place] [address]Dr. Yilan ChangUrea nitrogen [Mass/Vol]27.0 mg/dL Critically high7.0-18.0The [facility] HospitalComment on above:Performed By: #### TSH, T7, CMP, BNP ####[facility] [address] [place], [place] [address]Dr. Yilan ChangUrea nitrogen/Creatinine [Mass ratio]22.7 mg/mgNormal The [facility] HospitalComment on above:Performed By: #### TSH, T7, CMP, BNP ####[facility] Ch[address] [place], [place] [address]Dr. Yilan ChangTSHon 42-88-2263AMO7.455 uIU/mLNormal0.358-3.740The [facility] Comment on above:Performed By: #### TSH, T7, CMP, BNP ####[facility] [address] [place], [place] [address]Dr. Yilan ChangXR CHEST 2 Von 09-55-2201VK CHEST 2 VEXAMINATION: XR CHEST 2 V, 09/09/2022 12:11 PM EDT HISTORY: Dyspnea COMPARISON: None. TECHNIQUE: Chest x-ray: Two views. FINDINGS: No focal consolidations or pleural effusions. Cardiomediastinal silhouette is unremarkable. Calcified mediastinal lymph nodes. Severe degenerative changes of the glenohumeral joints bilaterally. Thoracic spine spondylosis. IMPRESSION: No acute disease. Electronically authenticated by: VAN KELSEALAURA Date: 2022-09-09 12:48NormalThe [facility] HospitalINSULINon 14-55-9154Kwecyfr33.3 uIU/mLNormal2.6-24.9The [facility] HospitalComment on above:Performed By: #### INSULIN #### [facility] [address] [place] [address] Dr. Elver Perkins4, T3U, FTI LABCORPon 40-83-9947Nziu Thyroxine Index2.1Normal 1.2-4.9The [facility] HospitalComment on above:Performed By: #### THYLC #### [facility] [address] [place] [address] Dr. Elver GibsonT3 Gzzjgx57 %Vnkcne92-64Hht [facility] HospitalComment on above: Performed By: #### THYLC #### [facility] [address] [place] [address] Dr. Elver Harding [Mass/Vol]7.0 ug/dLNormal4.5-12.0The [facility] HospitalComment on above:Performed By: #### THYLC #### [facility] [address] [place] [address] Dr. Elver Sears 25-78-6007Esldeiombvn peptide B (Bld) [Mass/Vol]229.0 pg/mL Normal<=1,800.0The [facility] HospitalComment on above:Performed By: #### BNP, CMP, LIPID, TSH, URIC #### [facility] [address] [place] [address] Dr. Elver Rock AUTO DIFFon 45-53-9636BRWR #0.0 103/ulNormal0.0-0.1The [facility] HospitalComment on above:Performed By: #### CBC ####[facility] [address] [address]lan ChangBasophils/100 WBC (Bld)0.7 %Normal0.2-2.0The [facility] HospitalComment on above:Performed By: #### CBC ####[facility] E[address]wvibcvs[address] [place], [place] [address]Dr.Mariannelan ChangEO #0.2 103/ulNormal0.0-0.7The [facility] HospitalComment on above:Performed By: #### CBC ####[facility] Newznhpuqx[address] [place], [place] [address]Dr.Elver ChangEosinophils/100 WBC (Bld)3.9 %Normal 0.9-7.0The [facility] HospitalComment on above:Performed By: #### CBC ####[facility] Aakwehqiiv[address] [place], [place] [address]Dr.Elver Gibson Erythrocyte distribution width (RBC) [Ratio]13.2 %Dpzkje27.0-15.0The [facility] HospitalComment on above:Performed By: #### CBC ####[facility] Ekyurwompp[address] [place], [place] [address]Dr.Marianneyemi ChangHematocrit (Bld) [Volume fraction]42.9 %Ptwjvd70.0-54.0The [facility] HospitalComment on above:Performed By: #### CBC ####[facility] Pxwqg[address] [place], [place] [address]Dr.Elver ChangHemoglobin (Bld) [Mass/Vol]14.2 g/dL Yatpen75.0-18.0The [facility] HospitalComment on above:Performed By: #### CBC ####[facility] N[address]vju[address] [place], [place] [address]Dr. Mariannelan ChangIG #0.01 10e3/ulNormal0.00-0.03The [facility] HospitalComment on above: Performed By: #### CBC ####[facility] Bylvwpvxxr[address] [place], [place] [address]Dr.Elver ChangIG %0.2 %Normal0.0-0.5The [facility] HospitalComment on above:Performed By: #### CBC ####[facility] [address] [address]Dr.Elver GibsonLYMPH #1.4 103/ulNormal1.2-3.8The [facility] HospitalComment on above:Performed By: #### CBC ####[facility] [address] [address]Dr. Elver GibsonLymphocytes/100 WBC (Bld)24.0 %Xllgbd75.5-60.0The [facility] Comment on above:Performed By: #### CBC ####[facility] [address] [address]Dr.Elver GibsonMANUAL DIFF REQNONormalThe [facility] HospitalComment on above:Performed By: #### CBC ####[facility] [address]zqyykisg[address] [place], [place] [address]Dr.Elver GibsonMCH (RBC) [Entitic mass]33.3 uoBzjxlc84.9-34.0The [facility] HospitalComment on above: Performed By: #### CBC ####[facility] Mptmbkywve[address] [place], [place] [address]Dr.Elver GibsonMCHC (RBC) [Mass/Vol]33.1 g/dLNormal 29.9-35.2The [facility] HospitalComment on above:Performed By: #### CBC ####[facility] Kjkguxhljp[address] [place], [place] [address]Dr. Elver GibsonMCV (RBC) [Entitic vol]100.7 fLCritically high80.0-94.0The [facility] HospitalComment on above:Performed By: #### CBC ####[facility] [address] [address]Dr.Elver GibsonMONO #0.7 103/ulNormal0.3-0.8The [facility] HospitalComment on above:Performed By: #### CBC ####[facility] Lnmugqdilh[address] [place], [place] [address]Dr. Elver ChangMonocytes/100 WBC (Bld)12.7 %Critically high1.7-12.0The [facility] HospitalComment on above:Performed By: #### CBC ####[facility] [address] [address]Dr.Elver RinconUT #3.3 103/ulNormal1.4-6.5The [facility] HospitalComment on above:Performed By: #### CBC ####[facility] [address] [address]Dr. Elver GibsonNeutrophils/100 WBC (Bld)58.5 %Tqvxtg06.0-75.0[facility] Comment on above:Performed By: #### CBC ####[facility] [address] [address]Dr.Elver GibsonPlatelet mean volume (Bld) [Entitic vol]9.6 fLNormal9.5-13.5The [facility] HospitalComment on above:Performed By: #### CBC ####[facility] [address] [address]Dr.Elver GoxywKUC757 103/heGuzgtq059-820Yty [facility] HospitalComment on above:Performed By: #### CBC ####[facility] [address]sfskp[address] [address]Dr.Elver GibsonRBC4.26 106/ulCritically low4.70-6.10The [facility] HospitalComment on above:Performed By: #### CBC ####[facility] [address]fe[address] [address]Dr.Elver GibsonWBC5.7 103/ul Normal4.0-11.0[facility] AdministrationComment on above:Performed By: #### CBC ####[facility] [address] [address]Dr. Elver GibsonGLYCOHEMOGLOBIN A1Con 14-21-4590GUF RECOMMENDATIONSEE [facility] CampusComment on above:Result Comment: ADA RECOMMENDED LIMIT 4.0 - 6.0 ADA THERAPEUTIC TARGET < 7.0 ACTION SUGGESTED > 7.0Performed By: #### A1C #### [facility] [address] [address] [address] Elver iGbsonGlucose [Mass/Vol]108 mg/dLBellevue HospitalComment on above:Performed By: #### A1C #### [facility] [address] [place] [address] Dr. Elver GibsonHbA1c (Bld) [Mass fraction]5.4 %Normal4.5-6.2[facility] AdministrationComment on above:Performed By: #### A1C #### [facility] [address] [place] [address] Dr. Elver GibsonLIPID PROFILEon 41-97-7810RICB-HDL RATIO NORMSEE [facility] CampusComment on above:Result Comment: 3.3 - 4.4 LOW RISK 4.4 - 7.1 AVERAGE RISK 7.1 - 11.0 MODERATE RISK >11.0 HIGH RISKPerformed By: #### BNP, CMP, LIPID, TSH, URIC #### [facility] [address] [place] [address] Dr. Elver Jallohesterol [Mass/Vol]174 mg/dLNormal<=200The [facility] Comment on above:Performed By: #### BNP, CMP, LIPID, TSH, URIC #### [facility] [address] [place] [address] Dr. Elver Jallohesterol in HDL [Mass/Vol]63 mg/dLCritically xfdu21-03Nea [facility] HospitalComment on above:Performed By: #### BNP, CMP, LIPID, TSH, URIC #### [facility] [address] [place] [address] Dr. Elver Jallohesterol in LDL [Mass/Vol]100.4 mg/dLBellevue HospitalComment on above:Performed By: #### BNP, CMP, LIPID, TSH, URIC #### [facility] [address] [place] [address] Dr. Elver Simon.total/Cholesterol in HDL [Mass ratio]2.8 {ratio} NormalVeterans Health AdministrationComment on above:Performed By: #### BNP, CMP, LIPID, TSH, URIC #### [facility] [address] [address] [address] Elver Rojas NORMAL> or = 60 mg/dl - LOW CARDIOVASCULAR RISK <40 mg/dl - HIGH CARDIOVASCULAR RISKBellevue HospitalComment on above:Performed By: #### BNP, CMP, LIPID, TSH, URIC #### [facility] [address] [address] [address] Elver GibsonLDL CALC NORMALSEE BELOWBellevue HospitalComment on above:Result Comment: <100 mg/dl OPTIMAL 100 - 129 mg/dl NEAR OR ABOVE OPTIMAL 130 - 159 mg/dl BORDERLINE HIGH 160 - 189 mg/dl HIGH >190 mg/dl VERY HIGH Performed By: #### BNP, CMP, LIPID, TSH, URIC #### [facility] [address] [address] [address] Elver GibsonTriglyceride [Mass/Vol]53 mg/dLNormal<=150The [facility] Comment on above:Performed By: #### BNP, CMP, LIPID, TSH, URIC #### [facility] [address] [place] [address] Dr. Elver GibsonVLDL CALC10.6 mg/dLNoBluffton HospitalComment on above: Performed By: #### BNP, CMP, LIPID, TSH, URIC #### [facility] [address] [place] [address] Dr. Elver GibsonPROF 14(COMP METB)on 79-57-8089Rzmhfia [Mass/Vol]3.7 g/dLNormal 3.4-5.0The [facility] HospitalComment on above:Performed By: #### BNP, CMP, LIPID, TSH, URIC #### [facility] [address] [address] [address] Elver GibsonAlbumin/Globulin [Mass ratio]1.1 {ratio}NormalThe [facility] on above:Performed By: #### BNP, CMP, LIPID, TSH, URIC #### [facility] [address] [place] [address] Dr. Elver Schumacher [Catalytic activity/Vol]64 U/LSfoiyx86-764Pey Oliverio HospitalComment on above:Performed By: #### BNP, CMP, LIPID, TSH, URIC #### [facility] [address] [address] [address] Elver Camacho [Catalytic activity/Vol]27 U/GZstghz93-76Zxp [facility] HospitalComment on above:Performed By: #### BNP, CMP, LIPID, TSH, URIC #### [facility] [address] [place] [address] Dr. Elver Clifford gap [Moles/Vol]9.7 mmol/LNormalThe [facility] HospitalComment on above:Performed By: #### BNP, CMP, LIPID, TSH, URIC #### [facility] [address] [place] [address] Dr. Elver Leon [Catalytic activity/Vol]30 U/PMcserd54-12Snt [facility] HospitalComment on above:Performed By: #### BNP, CMP, LIPID, TSH, URIC #### [facility] [address] [place] [address] Dr. Elver GibsonBilirubin [Mass/Vol]0.7 mg/dLNormal0.2-1.0[facility] Comment on above:Performed By: #### BNP, CMP, LIPID, TSH, URIC #### [facility] [address] [place] [address] Dr. Elver GibsonCalcium [Mass/Vol]8.9 mg/dLNormal8.5-10.1[facility] Comment on above:Performed By: #### BNP, CMP, LIPID, TSH, URIC #### [facility] [address] [place] [address] Dr. Elver GibsonChloride [Moles/Vol]104 mmol/TJcuurv77-975Qif [facility] Comment on above:Performed By: #### BNP, CMP, LIPID, TSH, URIC #### [facility] [address] [place] [address] Dr. Elver GibsonCO2 [Moles/Vol]31.8 mmol/SYctten61.0-32.0The [facility] Comment on above:Performed By: #### BNP, CMP, LIPID, TSH, URIC #### [facility] [address] [address] [address] Elver GibsonCreatinine [Mass/Vol]1.19 mg/dLNormal0.70-1.30The [facility] HospitalComment on above:Performed By: #### BNP, CMP, LIPID, TSH, URIC #### [facility] [address] [place] [address] Dr. Elver GuilloryGFR-AF [place]ER>60Normal>=60The [facility] HospitalComment on above:Performed By: #### BNP, CMP, LIPID, TSH, URIC #### [facility] [address] [place] [address] Dr. Elver GuilloryGFR-NON AF JXSJBDCH69 mL/min/1.68l6Mzupvpktvw low>=60The [facility] HospitalComment on above:Performed By: #### BNP, CMP, LIPID, TSH, URIC #### [facility] [address] [place] [address] Dr. Elver GibsonGlobulin (S) [Mass/Vol]3.4 g/dLNormalThe [facility] HospitalComment on above:Performed By: #### BNP, CMP, LIPID, TSH, URIC #### [facility] [address] [place] [address] Dr. Elver GibsonGlucose [Mass/Vol]97 mg/xHUtkjnv94-292LkjVeterans Health Administration Comment on above:Performed By: #### BNP, CMP, LIPID, TSH, URIC #### [facility] [address] [place] [address] Dr. Elver GibsonPotassium [Moles/Vol]4.5 mmol/LNormal3.5-5.1[facility] Comment on above:Performed By: #### BNP, CMP, LIPID, TSH, URIC #### [facility] [address] [place] [address] Dr. Elver GibosnProtein [Mass/Vol]7.1 g/dLNormal6.4-8.2[facility] Comment on above:Performed By: #### BNP, CMP, LIPID, TSH, URIC #### [facility] [address] [address] [address] Elver Carrascodium [Moles/Vol]141 mmol/WZjlkvk715-469Erh [facility] Comment on above:Performed By: #### BNP, CMP, LIPID, TSH, URIC #### [facility] [address] [address] [address] Elver Hobson nitrogen [Mass/Vol]31.0 mg/dLCritically high7.0-18.0The [facility] HospitalComment on above:Performed By: #### BNP, CMP, LIPID, TSH, URIC #### [facility] [address] [address] [address] Elver Hobson nitrogen/Creatinine [Mass ratio]26.1 mg/mgNormalThe [facility] HospitalComment on above:Performed By: #### BNP, CMP, LIPID, TSH, URIC #### [facility] [address] [place] [address] Dr. Elver Villagomez 58-11-9784YYH4.829 uIU/mLNormal0.358-3.740The [facility] HospitalComment on above:Performed By: #### BNP, CMP, LIPID, TSH, URIC #### [facility] [address] [place] [address] Dr. Elver GibsonURIC ACID SERUMon 69-77-8264Cbvrv [Mass/Vol]7.1 mg/dLNormal 3.5-7.2The [facility] HospitalComment on above:Performed By: #### BNP, CMP, LIPID, TSH, URIC #### [facility] [address] [place] [address] Dr. Elver Clark Panel Information[facility] Vital Signs Date TimeVital SignValuePerforming FnaslyqleSudqihfg02-89-6803 12:46-0400Body zwsekp830.6 Gabrielle Mendoza MD Work Phone: [facility]06-30-2025 12:46-0400Body mass index (BMI) [Ratio]25.91 kg/c3VsjrtqKendra Mendoza MD Work Phone: [facility]06-30-2025 12:46-0400Body ofsxis38.8 kgKendra Mendoza MD Work Phone: [facility]06-30-2025 12:46-0400Diastolic blood axrhujpt98 mm[Hg]Kendra Mendoza MD Work Phone: [facility]06-30-2025 12:46-0400Heart rate57 /min Kendra Mendoza MD Work Phone: [phone]06-30-2025 12:46-6727TtA5% (BldA) [Mass fraction]98 %Kendra Mendoza MD Work Phone: [facility] CenterComment on above:[id number] 12:46-0400Systolic blood kzreobcv331 mm[Hg]Kendra Mendoza MD Work Phone: [phone]04-28-2025 12:30-0400Body lecqex568.1 cmTomy Hutton MD Work Phone: [phone]04-28-2025 12:30-0400Body mass index (BMI) [Ratio]27.09 kg/g0IhccmtfTomy Hutton MD Work Phone: [phone]04-28-2025 12:30-0400Body idcaxw56.85 kgTomy Hutton MD Work Phone: [phone]04-28-2025 12:30-0400Diastolic blood uluykbbt88 mm[Hg]Tomy Hutton MD Work Phone: [facility]04-28-2025 12:30-0400Heart rate59 /min Tomy Hutton MD Work Phone: [place] [address]-28-2025 12:30-3758QvO1% (BldA) [Mass fraction]97 %Tomy Hutton MD Work Phone: [phone] CenterComment on above:[id number] 12:30-0400Systolic blood bcrvdemx113 mm[Hg]Tomy Hutton MD Work Phone: [facility]04-15-2025 14:36-0400Body mncosg705.1 Heidi Valles MD Work Phone: c[facility] [phone] 14:36-0400Body mass index (BMI) [Ratio]26.46 kg/i5WlpbkgpgAriaan Valles MD Work Phone: c[facility] CenterRnkyhs02-93-5468 14:36-0400Body avhcmq68.12 kgAriana Valles MD Work Phone: c[facility] CenterUftfda84-13-8886 14:36-0400Diastolic blood wfitwhlr47 mm[Hg]Ariana Valles MD Work Phone: c[facility] CenterIhmwkz00-14-8962 14:36-0400Heart rate94 /min Ariana Valles MD Work Phone: c[facility] CenterSlsify64-33-5286 14:36-0400Systolic blood kpeowjmb126 mm[Hg]Ariana Valles MD Work Phone: c[facility] CenterCzeefm86-13-7096 10:56-0500Blood Pressure LocationKMARC LOOMIS-BOO [facility]01-30-2025 10:56-0500Diastolic blood treixjsi99 mm[Hg]MIKE LOOMIS-AMKOFI [facility]01-30-2025 10:56-0500Heart rate59 /minIMKE LOOMIS-AMANK [facility]01-30-2025 10:56-0500Systolic blood glburitx021 mm[Hg]MIKE LOOMIS-AMANK [facility]01-09-2025 10:40-0500Heart rate80 /minKWABENA NKANSAH-AMANKRA [facility]01-09-2025 10:40-0925UyL1% (BldA) [Mass fraction]95 %MIKE NKANSAH-AMANKRA [facility]01-09-2025 10:40-0500 Diastolic blood mmutcmaq23 mm[Hg]MIKE NKANSAH-AMANKRA [address] [place], [place] [address]01-09-2025 10:40-0500Mean blood uvjfrsbr607 mm[Hg]MIKE NKANSAH-AMANKRA [address] [place], [place] [address]01-09-2025 10:40-0500 Systolic blood mdqwnuiw888 mm[Hg]MIKE NKANSAH-AMANKRA [address] [place], [place] [address]01-09-2025 09:15-0500 Diastolic blood ryabblvk85 mm[Hg]MIKE NKANSAH-AMANKRA [address] [place], [place] [address]01-09-2025 09:15-0500Heart rate69 /minKWABENA NKANSAH-AMANKRA [facility]01-09-2025 09:15-0500Mean blood yupvhkjn927 mm[Hg]MIKE NKANSAH-AMANKRA [address] [place], [place] [address]01-09-2025 09:15-0500 Respiratory rate16 /minKWABENA NKANSAH-AMANKRA [facility]01-09-2025 09:15-0769WnM2% (BldA) [Mass fraction]94 %MIKE NKANSAH-AMANKRA [address] [place], [place] [address]01-09-2025 09:15-0500 Systolic blood rveiosba005 mm[Hg]MIKE NKANSAH-AMANKRA [facility]01-09-2025 09:10-0500Blood Pressure LocationKMARC SINGLETONANSAH-AMANKRA [facility]01-09-2025 09:10-0500Body wbfqqtpgxeg82.88 [degF]MIKE ARELIANSAH-AMANKRA [address] [place], [place] [address]01-09-2025 09:10-0500 Diastolic blood dcjfccdi02 mm[Hg]MIKE SINGLETONANSAH-AMANKRA [address] [place], [place] [address]01-09-2025 09:10-0500Heart rate68 /minMIKE SINGLETONANSAH-AMANKRA [address] [place], [place] [address]01-09-2025 09:10-0500Mean blood hianeksh005 mm[Hg]MIKE SINGLETONANSAH-AMANKRA [facility]01-09-2025 09:10-0500 Respiratory rate17 /Marely SINGLETONANSAH-AMANKRA [address] [place], [place] 551[address]01-09-2025 09:10-3545JwV2% (BldA) [Mass fraction]94 %MIKE ARELIANSAH-AMANKRA [facility]01-09-2025 09:10-0500 Systolic blood raucrhcb049 mm[Hg]MIKE ARELIANSAH-AMANKRA [facility]01-09-2025 09:00-0500Mean blood sbzyjlxo708 mm[Hg]MIKE NKANSAH-AMANKRA [address] [place], [place] [address]01-09-2025 08:55-0500Blood Pressure LocationKMARC SINGLETONANSAH-AMANKRA [address] [place], [place] [address]01-09-2025 08:55-0500 Respiratory rate17 /minKWABENA NKANSAH-AMANKRA [address] [place], [place] [address]01-09-2025 08:44-0500Body kotjyklopkl50.7 [degF]MIKE NKANSAH-AMANKRA [address] [place], [place] [address]01-09-2025 08:40-0500 Respiratory rate12 /minKWABENA NKANSAH-AMANKRA [address] [place], [place] [address]01-09-2025 08:35-0500 Respiratory rate11 /minKWABENA NKANSAH-AMANKRA [address] [place], [place] [address]01-09-2025 07:10-0500Heart rate82 /minKWABENA NKANSAH-AMANKRA [address] [place], [place] [address]01-09-2025 07:06-0500Body guqxvwjkqvd49.88 [degF]MIKE NKANSAH-AMANKRA [address] [place], [place] [address]01-09-2025 07:06-0500Mean blood gkrbemth040 mm[Hg]MIKE NKANSAH-AMANKRA [address] [place], [place] [address]01-02-2025 12:19-0500 Diastolic blood jfnncisx73 mm[Hg]MIKE NKANSAH-AMANKRA [address] [place], [place] 6876501-02-2025 12:19-0500Heart rate63 /minKWABENA NKANSAH-AMANKRA [address] [place], [place] 5511201-02-2025 12:19-0500Mean blood wleyqoug25 mm[Hg]MIKE NKANSAH-AMANKRA [address] [place], [place] 6876501-02-2025 12:19-0500 Systolic blood tflbtfeu995 mm[Hg]MIKE NKANSAH-AMANKRA [facility]01-02-2025 12:18-0500Heart rate60 /minKAGNIESZKANA ARELIANSAH-AMANKRA [facility]01-02-2025 12:18-6971PsO9% (BldA) [Mass fraction]95 %MIKE NKANSAH-AMANKRA [facility]01-02-2025 12:18-0500 Diastolic blood hlenqnrh69 mm[Hg]MIKE NKANSAH-AMANKRA [facility]01-02-2025 12:18-0500Mean blood kghgivjx61 mm[Hg]MIKE NKANSAH-AMANKRA [facility]01-02-2025 12:18-0500 Systolic blood mm[Hg]MIKE NKANSAH-AMANKRA [facility]01-02-2025 12:17-0500Body tuhlyjbxkyn20.24 [degF]MIKE NKANSAH-AMANKRA [facility]01-02-2025 10:11-0500Blood Pressure LocationKMARC NKANSAH-AMANKRA [facility]01-02-2025 10:11-0500Diastolic blood wafqnkxm61 mm[Hg]MIKE NKANSAH-AMANKRA [facility]01-02-2025 10:11-0500Heart rate62 /minKMARC SINGLETONANSAH-AMANKRA [facility]01-02-2025 10:11-0500Systolic blood ynlgpjhf523 mm[Hg]MIKE NKANSAH-AMANKRA [facility] [place] 398722-17-2024 11:23-0500Body .1 Gabrielle Mendoza MD Work Phone: [facility]12-17-2024 11:23-0500Body mass index (BMI) [Ratio]25.79 kg/d3SkwoelKendra Mendoza MD Work Phone: [phone]12-17-2024 11:23-0500Body eesfvu19.31 kgKendra Mendoza MD Work Phone: [facility]12-17-2024 11:23-0500Diastolic blood kzbqikjn64 mm[Hg]Kendra Mendoza MD Work Phone: [facility]12-17-2024 11:23-0500Heart rate60 /min Kendra Mendoza MD Work Phone: [phone]12-17-2024 11:23-0500Respiratory rate 15 /minEleora Mendoza MD Work Phone: [facility]12-17-2024 11:23-8718UrP1% (BldA) [Mass fraction]94 %Kendra Mendoza MD Work Phone: [facility]12-17-2024 11:23-0500Systolic blood iikaifma260 mm[Hg]Kendra Mendoza MD Work Phone: [phone]11-29-2024 16:26-0500Body .1 cmRd Qureshi MD Work Phone: [place] [address]-29-2024 16:26-0500Body mass index (BMI) [Ratio]25.79 kg/o4GnpzrkRd Qureshi MD Work Phone: [facility]11-29-2024 16:26-0500Body wochgw54.31 kgRd Qureshi MD Work Phone: [place] [address]-29-2024 16:26-0500Diastolic blood mudvbbkd08 mm[Hg]Rd Qureshi MD Work Phone: [facility]11-29-2024 16:26-0500Heart rate55 /min Rd Qureshi MD Work Phone: [facility]11-29-2024 16:26-0500Systolic blood nfeznriz926 mm[Hg]Rd Qureshi MD Work Phone: [facility]10-11-2024 10:15-0400Body fkausg632.1 cmRebecca Reay FRYLINE ATTENDANT.COMMUNICATION LECTURER Work Phone: [phone]10-11-2024 10:15-0400Body mass index (BMI) [Ratio]26.01 kg/e4Dibcftw Reay FRYLINE ATTENDANT.COMMUNICATION LECTURER Work Phone: [phone]10-11-2024 10:15-0400Body drytdf37.9 kgRebecca Reay FRYLINE ATTENDANT.COMMUNICATION LECTURER Work Phone: [phone]10-11-2024 10:15-0400Diastolic blood rxqcajth38 mm[Hg]Compa Reay FRYLINE ATTENDANT.COMMUNICATION LECTURER Work Phone: [phone]10-11-2024 10:15-0400Heart rate69 /min Compa Reay FRYLINE ATTENDANT.COMMUNICATION LECTURER Work Phone: [phone]10-11-2024 10:15-0738DtJ4% (BldA) [Mass fraction]97 %Compa Reay FRYLINE ATTENDANT.COMMUNICATION LECTURER Work Phone: [phone]10-11-2024 10:15-0400Systolic blood fukfkfsh615 mm[Hg]Compa Reay FRYLINE ATTENDANT.COMMUNICATION LECTURER Work Phone: [facility]09-03-2024 14:40-0400Diastolic blood qocamibf02 mm[Hg][facility]09-03-2024 14:40-0400Heart rate79 /minTransesophageal [facility]09-03-2024 14:40-0400Respiratory rate16 /minTransesophageal [facility]09-03-2024 14:40-2603JwT5% (BldA) [Mass fraction]91 %[facility]09-03-2024 14:40-0400 Systolic blood lerxhzeb668 mm[Hg][facility]09-03-2024 12:24-0400Body ddwvomykoaw43.7 [degF][facility] 02-04-2024 16:16-0400Body kjyqrr672.1 Gabrielle Mendoza MD Work Phone: [facility]08-29-2024 16:16-0400Body mass index (BMI) [Ratio]26.38 kg/f1MohngeKendra Mendoza MD Work Phone: [facility]08-29-2024 16:16-0400Body qhashd32.89 kgKendra Mendoza MD Work Phone: [facility]08-29-2024 16:16-0400Diastolic blood gtihxliw44 mm[Hg]Kendra Mendoza MD Work Phone: [facility]08-29-2024 16:16-0400Heart rate88 /min Kendra Mendoza MD Work Phone: [facility]08-29-2024 16:16-3365YiT2% (BldA) [Mass fraction]96 %Kendra Mendoza MD Work Phone: [facility]08-29-2024 16:16-0400Systolic blood dessffpk239 mm[Hg]Kendra Mendoza MD Work Phone: [facility]07-19-2024 10:57-0400Body eotxgu089.1 cmAvelina Chowdhury MD Work Phone: [facility]07-19-2024 10:57-0400 Body mass index (BMI) [Ratio]27.79 kg/h5IjxgnhAvelina Chowdhury MD Work Phone: [facility]07-19-2024 10:57-0400 Body qnmzio83.75 kgAvelina Chowdhury MD Work Phone: [facility]07-19-2024 10:57-0400 Diastolic blood mluwkiqd85 mm[Hg]Avelina Chowdhury MD Work Phone: [facility]07-19-2024 10:57-0400 Heart mjja225 /minAvelina Chowdhury MD Work Phone: [facility]07-19-2024 10:57-0400 Systolic blood ysznirqq656 mm[Hg]Avelina Chowdhury MD Work Phone: [facility]08-23-2023 13:33-0400 Body dunqvv386.64 cmDougusha Ziegler Hoy Work Phone: [phone]-Uzoad [facility] [address] DO Work Phone: [phone] 13:33-0400Body mass index (BMI) [Ratio] 27.92 kg/b6Xowopsh M Hoy Work Phone: [phone]-Joplt [facility] [address] DO Work Phone: [phone] 13:33-0400Body surface area Derived from formula1.88 r4Rzidhke M Hoy Work Phone: [phone]-Tbmjk [facility] [address] DO Work Phone: [phone] 13:33-0400Body ftscya09.47 kgDougusha Ziegler Hoy Work Phone: [phone]-Wksek [facility] DO Work Phone: [phone] 13:33-0400Diastolic blood bnylgiyx38 mm[Hg] Samantha Toney Hoy Work Phone: [phone]-Mgtvc [facility] [address] DO Work Phone: [phone] 13:33-0400Diastolic blood ulkyansn14 mm[Hg] Samantha Toney Hoy Work Phone: [phone]-Cbxfq [facility] [address] DO Work Phone: [phone] 13:33-0400Diastolic blood vmnsyrnb15 mm[Hg] Samantha M Hoy Work Phone: [phone]-Jhese [facility] [address] DO Work Phone: [phone] 13:33-0400Heart rate84 /minDouglas M Hoy Work Phone: [phone]-Cmcfw [facility] DO Work Phone: 1(108)[phone] 13:33-0400Systolic blood aodfsgme557 mm[Hg] Samantha M Hoy Work Phone: [phone]-Ccyee [facility] [address] DO Work Phone: [phone] 13:33-0400Systolic blood mm[Hg] Samantha M Hoy Work Phone: [phone]-Pamfz [facility] DO Work Phone: [phone] 13:33-0400Systolic blood awnjlgkl271 mm[Hg] Samantha M Hoy Work Phone: [phone]-Tgkft [facility] [address] DO Work Phone: 1(415)[phone] 13:33-530551 1Douglas M Hoy Work Phone: [phone]-Hynix [facility] DO Work Phone: Comment on above:XHMDaxvPu16-18-9336 13:33-130136 1 Samantha M Hoy Work Phone: [phone]-Zxcba [facility] [address] DO Work Phone: Comment on above:CCZTtyeNbd83-13-7900 13:33-806269 1 Samantha M Hoy Work Phone: [phone]-Taxee [facility] DO Work Phone: Comment on above:CBQFfllEm46-83-6696 13:28-0400Body .64 cmDouglas M Hoy Work Phone: [phone]-Iwjme [facility] DO Work Phone: [phone] 13:28-0400Body mass index (BMI) [Ratio] 27.92 kg/m0Rvqbzpz M Hoy Work Phone: [phone]-Xfgbv [facility] DO Work Phone: [phone] 13:28-0400Body surface area Derived from formula1.88 g4Cpmyvoq M Hoy Work Phone: [phone]-Qyuct [facility] [address] DO Work Phone: 1(711) 674-127408-23-2023 13:28-0400Body .47 kgDoandres Ziegler Hoy Work Phone: [phone]-Vrtqd [facility] DO Work Phone: 1(636) 354-943508-23-2023 13:28-0400Diastolic blood macdggri61 mm[Hg] Samantha Toney Hoy Work Phone: [phone]-Tdxwr [facility] [address] DO Work Phone: [phone]([phone] 13:28-0400Heart rate91 /minDouglas Toney Hoy Work Phone: [phone]-Zupcg [facility] [address] DO Work Phone: 1(442) 510-899508-23-2023 13:28-0400Systolic blood xerbdziy987 mm[Hg] Samantha M Hoy Work Phone: [phone]-Ngaax [facility] DO Work Phone: 1(119) [phone] 13:03-0400Diastolic blood ldavwgkr36 mm[Hg] Samantha M Hoy Work Phone: [phone]-Pleggpwdyu-[facility] 250 DO Work Phone: 1(848) [phone] 13:03-0400Systolic blood rexrfedm969 mm[Hg] Samantha M Hoy Work Phone: 1([phone]-Lygqmaeohf-[place] [address] DO Work Phone: 1(131) 105-574706-26-2023 12:48-0400Body rfwbez536.64 cmDouglas M Hoy Work Phone: [phone]-Vqfelhkfcw-[facility] 250 DO Work Phone: 1(533) [phone] 12:48-0400Body mass index (BMI) [Ratio] 28.41 kg/u7Awqjrnt M Hoy Work Phone: [phone]-Hvjevbeirw-[facility] 250 DO Work Phone: 1(377) 353-732406-26-2023 12:48-0400Body surface area Derived from formula1.89 g7Zswwhle M Hoy Work Phone: [phone]-Pguuekumcm-[place] [address] DO Work Phone: 1(552) 375-862106-26-2023 12:48-0400Body vxozxo02.83 kgDouglas M Hoy Work Phone: 1([phone]-Bufvupjzzz-[place] [address] DO Work Phone: 1(410) 402-920106-26-2023 12:48-0400Diastolic blood vxqcemwq49 mm[Hg] Samantha M Hoy Work Phone: 1([phone]-Jsiklehgtj-[place] 250 DO Work Phone: 1(188) 441-462106-26-2023 12:48-0400Heart rate76 /minDouglas M Hoy Work Phone: 1([phone]-Fitvmvbhbg-[place] [address] DO Work Phone: 1(302) 417-442006-26-2023 12:48-0400Systolic blood ilvrscxy59 mm[Hg] Samantha M Hoy Work Phone: 1([phone]-Dsvzoxoyde-[facility] 250 DO Work Phone: 1(811) 704-632605-30-2023 07:53-646736 1Douglas M Hoy Work Phone: 1(532)[phone]-Bxzeo [facility] [facility] DO Work Phone: Comment on above:[id number] 10:01-0400Body rcdula435.26 cmDouglas M Hoy Work Phone: 1([phone]-Pyhsy [facility] [address] DO Work Phone: 1(895) 268-100005-19-2023 10:01-0400Body mass index (BMI) [Ratio] 26.58 kg/i9GtuxqpySamantha Maya Work Phone: [phone]-Xhmci [facility] DO Work Phone: 1([phone] 978-347905-19-2023 10:01-0400Body surface area Derived from formula1.98 s8NrenlxbSamantha Maya Work Phone: [phone]-Ofwxq [facility] [facility] DO Work Phone: 1(346) [phone] 10:01-0400Body .65 kgDoandres Ziegler Hoy Work Phone: [phone]-Btppd [facility] [facility] DO Work Phone: 1(692) 710-433405-19-2023 10:01-0400Diastolic blood qlxwgaoq13 mm[Hg] Samantha Maya Work Phone: [phone]-Ahpcb [facility] DO Work Phone: 1(400) 727-804405-19-2023 10:01-0400Heart rate84 /minDouglas Toney Hoy Work Phone: 1([phone]-Ycabr [facility] DO Work Phone: 1(227) 530-773405-19-2023 10:01-0400Systolic blood hkapbnuu108 mm[Hg] Samantha Maya Work Phone: [phone]-Cyukc [facility] DO Work Phone: Encounters Encounter DateEncounter TypeCare ProviderFacilityStart: 76-65-4381lpxqwdkygt Alysha J GaleaFacility:EU kStart: 01-02-2025 End: 80-19-0691heojonqlhnVDXCRHM NKANSAH-AMANKRAFacility:EU NorkStart: 01-02-2025 End: 15-62-1083Fzjqreo encounter procedureMIKE SLADE [facility] Start: 12-14-2024 End: 21-09-1819Ypqymvyll encounterAriana Valles MD Work Phone: cardiologyComment on above:Schedule Surgery (PVI ablation+ Watchman implant)Start: 12-05-2024 End: 09-21-0459Ucspwst encounter procedureKendra Mendoza MD Work Phone: CardiologyComment on above:Chronic diastolic heart failure (HCC) (Primary Dx); Non-rheumatic mitral regurgitation; Complex medical condition; Paroxysmal atrial fibrillation (HCC); Cardiomyopathy, nonischemic (HCC); History of partial colectomy; History of gastrointestinal bleeding; Carpal tunnel syndrome, unspecified laterality; Tachycardia induced cardiomyopathy (HCC); Essential hypertension, benign; Other hyperlipidemiaStart: 12-05-2024 End: 45-04-7153rrxbfhqnlzBTKVIK M HSICHFacility:[facility]art: 12-05-2024 End: 67-29-3865ryryqzskfbFXPXNS M HSICHFacility:[facility]ustart: 10-06-2024 End: 50-79-7748Lualix Jose Porter MD Work Phone: Hematology/OncologyComment on above:Monoclonal gammopathy (Primary Dx)Start: 10-03-2024 End: 35-59-5967jojnzhkjliMGGLI N VALENTFacility:[facility] Campustart: 10-03-2024 End: 91-14-6776Aipoqtu encounter Zachery Hutton MD Work Phone: CardiologyComment on above:Chronic diastolic heart failure (HCC) (Primary Dx); PAF (paroxysmal atrial fibrillation) (HCC); Non-rheumatic mitral regurgitationMonoclonal gammopathy (Primary Dx)Start: 10-03-2024 End: 92-97-6259rmxdylxvsbYLOLF N VALENTFacility:[facility] Campustart: 39-31-2114nqqpiqqgbtFITFXRED KOCHARFacility:[facility] Campustart: 10-03-2024 End: 48-54-8532Ruzbqtokev hospital visit by physicianSpectct3 Work Phone: Molecular ImagingComment on above:Chronic diastolic heart failure (HCC) [I50.32]Start: 48-49-6951inedcxrtmhXOECIQTM KOCHAR Facility:[facility]art: 10-03-2024 End: 69-45-2622Pclgkfxnuw hospital visit by physicianNucinjMolecular Imaging Start: 09-26-2024 End: 91-41-7989Bdmpck OnlyAriana Valles MD Work Phone: cardiologyComment on above:SOB (shortness of breath) (Primary Dx)Start: 09-20-2024 End: 56-26-5047ybluqqeuxtSBNTKSGZ KOCHARFacility:[facility] Campustart: 09-20-2024 End: 67-53-1463Cgfgudo encounter procedureAriana Valles MD Work Phone: cardiologyComment on above:Atrial fibrillation, persistent (HCC) (Primary Dx); Chronic diastolic heart failure (HCC); Non-rheumatic mitral regurgitation; Heart failure with reduced ejection fraction (HCC); Carpal tunnel syndrome, bilateral; assisted (current) use of anticoagulants; Gastrointestinal hemorrhage, unspecified gastrointestinal hemorrhage typeStart: 09-20-2024 End: 04-69-6865wpupkbaugeYPFJARNM KOCHARFacility:[facility] Campustart: 07-07-2024 End: 20-58-4362ohgpeanhqkVWNCNIACierra SLADEFacility:[facility]art: 07-07-2024 End: 31-35-4241Mogvxkv encounter procedureMIKE SLADE [facility] Start: 06-27-2024 End: 29-24-5829tvzbwkcejzUNPQJWGCierra SLADEFacility:EU [facility] HospitalkStart: 06-27-2024 End: 57-74-3344Havrnmn encounter procedureMIKE SLADE [facility] Start: 06-16-2024 End: 30-47-7298Icujkdbaa to same day surgery inksterMIKE SLADE [facility] Start: 06-16-2024 End: 10-68-3004rzwikdvukuYOLXFSX NKANSAH-BOOFacility:FTMCStart: 06-09-2024 End: 26-55-5372gijviwdsddNS KWABENA NKANSAH-BOOFacility:FTMCStart: 06-09-2024 End: 26-97-0204Itkyaef encounter procedureMIKE SLADE [facility] Start: 06-09-2024 End: 74-89-2830occesfjbvgNY KWABENA NKANSAH-BOOFacility:EU NorwalkStart: 06-09-2024 End: 76-38-5378Preqiaj encounter procedureMIKE SLADE [facility] Start: 05-24-2024 End: 18-90-6946Xwzlyb Jos Mendoza MD Work Phone: CardiologyComment on above:Chronic systolic (congestive) heart failure (HCC) (Primary Dx)Chronic diastolic heart failure (HCC) (Primary Dx); Complex medical condition; Typical atrial flutter (HCC); Paroxysmal atrial fibrillation (HCC); Essential hypertension, benign; Cardiomyopathy, nonischemic (HCC); Other hyperlipidemia; History of partial colectomy; Chronic anticoagulationStart: 05-16-2024 End: 74-22-0859Elpvyk Raegan Qureshi MD Work Phone: CardiologyComment on above:Gastrointestinal bleeding, lower (Primary Dx); Atrial fibrillation, persistent (HCC); Atypical atrial flutter (HCC); Typical atrial flutter (HCC)Start: 05-10-2024 End: 15-96-3227Fvmrfyzdh encounterRd Qureshi MD Work Phone: CardiologyComment on above:Patient Update (Procedures) Start: 05-09-2024 End: 86-57-3039iclrsnjnnpKmjlgn Z Lee MD Work Phone: CardiologyComment on above:Atrial fibrillation, persistent (HCC) (Primary Dx); Typical atrial flutter (HCC)Start: 05-09-2024 End: 19-93-4324Hwxqtdexepzw consultation with patientRd Qureshi MD Work Phone: CardiologyStart: 03-18-2024 End: 77-81-8631Gnvynbs encounter procedureRebecca E Reay MONIK Work Phone: CardiologyComment on above:Chronic systolic (congestive) heart failure (HCC) (Primary Dx)Start: 03-18-2024 End: 47-70-9621oobeomdhbaIXVALQJ E REAYFacility:[facility] Campustart: 02-16-2024 End: 50-45-5453Avbwhfzng encounterKendra Mendoza MD Work Phone: CardiologyStart: 02-09-2024 End: 30-07-4953Exmiczn encounter procedureTransesophageal Echo Card Main CardiologyComment on above:Paroxysmal atrial fibrillation (HCC)Start: 02-05-2024 End: 49-56-7731Kcjxxt Aranza Talavera MD Work Phone: cardiologyComment on above:Paroxysmal atrial fibrillation (HCC) (Primary Dx)Patient Education (EPS- SHARON/DCC)Appointment (EPS- SHARON/DCC)Start: 02-04-2024 End: 48-52-1713Cjlauju encounter procedureKendra Mendoza MD Work Phone: CardiologyComment on above:Paroxysmal atrial fibrillation (HCC) (Primary Dx); Chronic systolic (congestive) heart failure (HCC); Essential hypertension, benign; Tachycardia induced cardiomyopathy (HCC); Cardiomyopathy, nonischemic (HCC); Non-rheumatic mitral regurgitation; Other specified hypothyroidism; Other hyperlipidemia; Carpal tunnel syndrome, unspecified laterality; History of partial colectomy; History of gastrointestinal bleeding; Chronic anticoagulationStart: 02-04-2024 End: 51-49-7628Lrodqaxlc encounterKendra Mendoza MD Work Phone: CardiologyStart: 01-08-2024 End: 25-84-3776ixqdrkecyuKIWCWI [facility] Hospitaltart: 12-31-2023 End: 66-85-3683educwfnzkyXBOAWT [facility] Hospitaltart: 12-25-2023 End: 79-12-1167Nzfoij outpatient visit 25 minutesAvelina Chowdhury MD Work Phone: FirelandsComment on above:Essential hypertension, benign; Left atrial dilation; Mitral valve insufficiency, unspecified etiology; Persistent atrial fibrillation with rapid ventricular response (Multi); High risk medication use; Shortness of breath; Former smokerStart: 12-25-2023 End: 91-42-1032nwuqremnraPZFAWXNorthridge Medical Center AmbulatoryStart: 05-25-2023 End: 81-14-2123jhslypwnsbYTAYCMNorthridge Medical Center AmbulatoryStart: 77-37-5741Wslbycy encounter Tousha Ziegler Francesco Work Phone: [phone]-Redxw [facility] [address] DO Work Phone: Start: 99-58-8148wbkwiqtmelUm. Avelina Chowdhury Facility:[id number]: 89-16-8291Iifsyy outpatient visit 25 minutesSamantha Toney Francesco Work Phone: [phone]-Dvjckwoctd-[place] 250 DO Work Phone: Start: 03-90-0540jaumgcakcwZvDr. Avelina Chowdhury Facility:[id number]: 64-03-7152ambceiluiiDmulatoryDr. Avelina Chowdhury Facility:[id number]: 10-31-2022 End: 31-49-0655iklcciiduxSaudej Ibrriverton hospitalFacility:[facility] Northtart: 18-81-4768Uj RenewalDougusha Maya Work Phone: [phone]-Pfwon [facility] [facility] DO Work Phone: Start: 10-27-2022 End: 57-89-1807rojwyhqhdnBvbckz Ibrriverton hospitalFacility:[facility] Northtart: 16-06-4180kydllutbygRbRodolfo MayaFacility:[id number]: 09-16-2022 End: 09-82-2721asynkifvogRN SAMANTHA MAYA .Facility:E6Jcfmq: 09-09-2022 End: 95-80-7175pzufeweccjVQ DOUGLAS HOY .Facility:E8Toykt: 02-14-2022 End: 02-34-9631ktinbjqqgcPN DOUGLAS HOY .Facility:M1Danec: 11-14-2021 End: 86-81-7725Erwitbc encounter procedureKatginny Levin MD Work Phone: OphthalmologyComment on above: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); Epiretinal membrane (ERM) of both eyes Procedures DateProcedureProcedure DetailPerforming ClinicianStart: 65-82-0132Az loclzj brinda spect w/ct 1 area 1 day imagingArsgarrison Valles MD Work Phone: start: 62-55-4301Phnxvvbyssu insertion of ureteric stentMIKE SLADE Start: 32-80-6828Bxpy transthorc r-t 2d w/wo m-mode rec f-up/lmtGail Mendoza MD Work Phone: Start: 54-79-0406Iqq routine ecg w/least 12 lds w/i&r Avelina Chowdhury MD Work Phone: Start: 63-54-1089EMA screeningDR SAMANTHA MAYA .Comment on above:Performed By: #### [facility] ####[facility] [address] [place], [place] [address]Xo. Yilan ChangStart: 11-14-2021 End: 40-65-2742Axrbzentpakv ophthalmic imaging Jay Levin MD Work Phone: [...] TonsillectomyKWABENA NKANSAH-AMANKRA Plan of Treatment DateCare ActivityDetailAuthorStart: 70-17-8920Uprhqqbc ScreeningDiabetes ScreeningMain Campus Medical Centertart: 66-00-7180Uabwntgw ScreeningDiabetes Screening [facility] ClinicStart: 88-33-6461Yaywszci ScreeningDiabetes ScreeningMain Campus Medical Centertart: 06-06-2025 End: 14-99-4654LjwdwqrengliytpfUTLQ Cardiology Routine Chronic diastolic heart failure (HCC) Expected: 06/06/2025, Expires: 12/05/2025[facility] Work Phone: Comment on above:Expected: 06/06/2025, Expires: 12/05/2025Start: 06-02-2025 End: 47-08-6837Toxrgwu encounter procedureVascular MedicineComment on above:DX: HEART FAILUREStart: 05-26-2025 End: 48-41-0432Lcxudhatc to same day surgery [place]2005/26/2025 1:00 PM EST - 05/26/2025 6:32 PM EST Surgery HOS[facility] EP Lab [address] [place] [address] Ariana Valles MD [address] [place] [id number] COMPRE EP EVAL ABLTJ ATR FIB PULM VEIN ISOLATIONHOKAISER [facility] EP LabComment on above:COMPRE EP EVAL ABLTJ ATR FIB PULM VEIN ISOLATIONStart: 05-26-2025 End: 23-18-3915Bkgye evl trnsptl tx atrial fib isolat pulm veinCOMPRE EP EVAL ABLTJ ATR FIB PULM VEIN ISOLATION Atrial fibrillation, unspecified type (HCC) 05/26/2025 1:00 PM [facility] EP LABStart: 05-26-2025 End: 33-89-2916Jnti clsr tcat l atr apndge w/endocardial implntPERC TRANSCATH CLOSURE LEFT ATRIAL APPENDAGE W/IMPLANT,INCLUSIVE OF FLUORO,TRANSEPTAL PUNCTURE,CATHPLACEMENT(S) ANGIO,WHEN PERFORMED,RAD S&I Atrial fibrillation, unspecified type (HCC) 05/26/2025 1:00 PM [facility] EP LABStart: 05-26-2025 Subsequent hospital visit by odjgiipim37/19/2025 1:00 PM EST Hospital Encounter HOSP EP Lab [address] [place] [address] [place] [address] [place] [id number] Atrial fibrillation, unspecified type (HCC) [I48.91]HOSP EP LabComment on above: Atrial fibrillation, unspecified type (HCC) [I48.91]Start: 05-26-2025 End: 97-48-3462Mexhlvz encounter procedureCardiologyComment on above:TO BE DONE IN THE LABPVI+WATCHMANStart: 04-28-2025 End: 31-81-8041GBN panel - Blood by Automated countCOMPLETE BLOOD COUNT Lab Routine PAF (paroxysmal atrial fibrillation) (FORMERLY [facility] [place]) Expected: 04/28/2025, Ex cristy: 12/19/2025[facility] Work Phone: comment on above:Expected: 04/28/2025, Expires: 12/19/2025Start: 04-28-2025 End: 81-29-2666Kmhxqodhkttvn metabolic 2000 panel - Serum or PlasmaCOMPREHENSIVE METABOLIC PANEL Lab Routine PAF (paroxysmal atrial fibrillation) ([facility]) Expected: 04/28/2025, Expires: 12/19/2025leveland ClinicComment on above: Expected: 04/28/2025, Expires: 12/19/2025Start: 04-28-2025 End: 65-21-8567DHKJGKM BLOOD TYPECONFIRM BLOOD TYPE Blood Bank Routine PAF (paroxysmal atrial fibrillation) ([facility]) Expected: 04/28/2025, Expires: 12/19/2025 [facility] CenterComment on above:Expected: 04/28/2025, Expires: 12/19/2025Start: 04-28-2025 End: 47-81-2511CBSL AND SCREEN,30 DAYTYPE AND SCREEN,30 DAY Blood Bank Routine PAF (paroxysmal atrial fibrillation) ([facility]) Expected: 04/28/2025, Expires: 12/19/2025[facility] hospitaland ClinicComment on above:Expected: 04/28/2025, Expires: 12/19/2025Start: 04-28-2025 End: 98-81-7185Acssrkg encounter ocdzqftvb19/21/2025 1:30 PM EST Office Visit Cardiology [address] [place] [address] Paulette Emmanuel APRN.COMMUNICATION LECTURER [address] [place] [address] PVI+WATCHMANCardiologyComment on above:PVI+WATCHMANStart: 04-28-2025 End: 31-11-7745pglhfnsldkPhadqhqxrgVadvljl on above:PVI+WATCHMANStart: 46-94-0008Bodllbgjx vaccinationMain Campus Medical Centertart: 12-27-2024 End: 73-96-6868Vzqmboy encounter procedureCardiologyComment on above:Dx. Atrial fibrillation, persistent (HCC)Start: 12-05-2024 End: 02-25-1540Xqwmmpu encounter procedureVascular MedicineComment on above:DX: Chronic heart failure with preserved ejection fractionStart: 11-22-2024 End: 03-96-0887XcinvhpnffhdksgyAHGQ Cardiology Routine Chronic diastolic heart failure (HCC) Expected: 11/22/2024, Expires: 05/24/2025[facility] Work Phone: Comment on above:Expected: 11/22/2024, Expires: 05/24/2025Start: 10-10-2024 End: 34-12-0866SE Bones Complete Survey ViewsXR BONE SURVEY ROUTINE Radiology Routine Monoclonal gammopathy Expected: 10/10/2024 (Approximate), Expires: 11/02/2025[facility] Work Phone: Comment on above:Expected: 10/10/2024 (Approximate), Expires: 11/02/2025Start: 10-06-2024 End: 49-26-4949HT Bones Complete Survey ViewsXR BONE SURVEY ROUTINE Radiology Routine Monoclonal gammopathy Expected: 10/06/2024, Expires: 11/05/2025[facility] Work Phone: Comment on above:Expected: 10/06/2024, Expires: 11/05/2025Start: 10-03-2024 End: 73-68-0230Towvgli encounter ixfqtvclb55/28/2025 12:15 PM EDT Office Visit Cardiology [address] [place] [address] Juitefrziwa CardiologyComment on above:AmyloidosisStart: 10-03-2024 End: 47-00-3327Tlorjon encounter lvxajicwi40/28/2025 10:30 AM EDT Appointment Molecular Imaging [address] [place] [address] NM SPECT/CT CARDIAC AMYLOIDMolecular ImagingComment on above:NM SPECT/CT CARDIAC AMYLOIDStart: 10-03-2024 End: 59-43-8873Zkrnxfo encounter procedureMolecular ImagingComment on above:NM SPECT/CT CARDIAC AMYLOIDAmyloidosisStart: 09-20-2024 End: 44-10-5948Evdjmgm encounter lhcqwvehz25/15/2025 2:30 PM EDT Office Visit Cardiology [address] [place], [place] [id number] Ariana Valles MD [address] [place] [address] WATCHMAN CONSULTCardiologyComment on above:WATCHMAN CONSULTStart: 09-20-2024 End: 08-95-2206hmeesycbep52/15/2025 1:45 PM EDT Results Only Cardiology [address] [place], [place] [id number] EKGCardiologyComment on above:EKG Start: 98-25-6013Lhctopk Directive DiscussionAdvance Directive Discussion [facility]art: 05-24-2024 End: 96-96-9570Epztx metabolic 2000 panel - Serum or PlasmaOhio State University [facility] Comment on above:Expected: 05/24/2024, Expires: 08/23/2024Start: 05-24-2024 End: 94-46-2865Ahfvrczmvbc peptide.B prohormone N-Terminal [Mass/volume] in Serum or PlasmaUc West [facility] Hospital Work Phone: Comment on above:Expected: 05/24/2024, Expires: 08/23/2024Start: 05-24-2024 End: 61-73-8829oxdltvwbep26/17/2024 9:15 AM EST Results Only [address] [place] [address] [address] [place] [address] DX: Chronic systolic heart failureMain [place] [address] Draw StationComment on above:DX: Chronic systolic heart failureStart: 05-24-2024 End: 99-22-4855Aqxcjxq encounter procedureVascular MedicineComment on above:DX: Chronic systolic heart failureStart: 05-09-2024 End: 81-28-1686cxsuesyuul82/02/2024 10:45 AM EST [facility] Cardiology [address] [place] [address] Rd Qureshi MD [address] [facility] [address] [place] [address] DX: AFIB CardiologyComment on above:DX: AFIBStart: 05-06-2024 End: 89-53-3351OjdslhnslxvobkjmCUXX Cardiology Routine Paroxysmal atrial fibrillation (HCC) Chronic systolic (congestive) heart failure (HCC) Expected: 05/06/2024, Expires: 02/03/2025leveland ClinicComment on above:Expected: 05/06/2024, Expires: 02/03/2025Start: 03-18-2024 End: 25-12-7729Beqoxdn encounter procedureCardiologyComment on above:Paroxysmal atrial fibrillation (HCC) [I48.0]Start: 03-18-2024 End: 65-56-8012kebhfovkyb96/11/2024 8:00 AM EDT [facility] [address] [place] [id number] Paroxysmal atrial fibrillation (HCC) [I48.0]CardiologyComment on above:Paroxysmal atrial fibrillation (HCC) [I48.0]Start: 02-24-2024 End: 08-18-1382Mgsjgtl encounter /18/2024 11:10 AM EDT Office Visit [place] [address] [facility] [address] [place] [address] Avelina Chowdhury MD [address] [facility] [place] [address] [facility]: 02-09[facility]2024 End: 61-60-2560Fzgexquwk to same day surgery euqzqu2602/09/2024 5:15 PM EDT - 02/09/2024 6:15 PM EDT Surgery HOSP EP Lab [address] [place] [address] Rd Qureshi MD [address] [place] [address] 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 EXTERNAL ELECTIVEHOSP EP LabComment on above: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 EXTERNAL ELECTIVEStart: 02-09-2024 End: 33-70-2562Svtdtldngvlin elective arrhythmia external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 EXTERNAL ELECTIVE Persistent atrial fibrillation (HCC) 02/09/2024 5[facility] Start: 35-80-6698Zyupoweplv hospital visit by kadyimxts49/03/2024 5:15 PM EDT Hospital Encounter HOSP EP Lab [address] [place] [address] Tanisha Qureshi MD [address] [place] [address] Persistent atrial fibrillation (HCC) [I48.19]HOSP EP Lab Comment on above:Persistent atrial fibrillation (HCC) [I48.19]Start: 02-09-2024 End: 68-36-4769Sgjxesbixnvdx elective arrhythmia external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 EXTERNAL ELECTIVE Persistent atrial fibrillation (HCC) 02/09/2024 3:35 PM [facility] Start: 02-09-2024 End: 73-57-2911Sqzkera encounter procedureAdmittingComment on above:[facility] DCCVStart: 41-09-8216Dwoio-19 Vaccine ()Covid-19 Vaccine ()[facility]Start: 46-50-6969Nszud-19 Vaccine ( season)Covid-19 Vaccine ( season)[facility]: 02-07-2024 Influenza vaccinationInfluenza Vaccine (#1)[facility]art: 02-04-2024 End: 74-03-7434Jajmovnqufboy metabolic 2000 panel - Serum or PlasmaCOMPREHENSIVE METABOLIC PANEL Lab STAT Paroxysmal atrial fibrillation (HCC) Chronic systolic (congestive) heart failure (HCC) Expected: 02/04/2024, Expires: 05/05/2024 [facility] ClinicComment on above:Expected: 02/04/2024, Expires: 05/05/2024Start: 02-04-2024 End: 84-84-9035Uiysqmbftpj peptide.B prohormone N-Terminal [Mass/volume] in Serum or PlasmaNT PRO BNP Lab STAT Paroxysmal atrial fibrillation (HCC) Chronic systolic (congestive) heart failure (HCC) Expected: 02/04/2024, Expires: 05/05/2024[facility] ClinicComment on above:Expected: 02/04/2024, Expires: 05/05/2024Start: 02-04-2024 End: 25-16-4868Lyhrikjxonl [Units/volume] in Serum or PlasmaTHYROID STIMULATING HORMONE Lab Routine Paroxysmal atrial fibrillation (HCC) Chronic systolic (conge stive) heart failure (HCC) Expected: 02/04/2024, Expires: 05/05/2024[facility] ClinicComment on above:Expected: 02/04/2024, Expires: 05/05/2024Start: 01-08-2024 End: 32-82-1164Ommcrsd encounter zoyakwtgb66/02/2024 8:[address] [facility] [address] [address] [facility] HospitalStart: 12-31-2023 End: 02-58-4954Eevdhhsviroo consultation with yfltbqy1112/31/2023 10:00 AM EDT Telemedicine [facility] [address]i [address] [place] [address] [place] [address] [place], [place] [phone] (Work) [facility]Elenotart: 12-25-2023 End: 14-09-7189IP Heart TransthoracicTransthoracic Echo Complete Echocardiography Routine Left atrial dilation Mitral valve insufficiency, unspecified etiology Expected: 12/25/2023 (Approximate), Expires: 12/24/2025[facility] Service Area Work Phone: Comment on above:Expected: 12/25/2023 (Approximate), Expires: 12/24/2025Start: 74-10-0837Flxggvk Directive DiscussionAdvance Directive DiscussionMain Campus Medical Centertart: 12-10-4456CGS, Provider: Avelina Chowdhury, Status: Pen, Time: 9:10 AMFUV, Provider: Avelina Chowdhury, Status: Pen, Time: 9:10 ZLTC-Wngeelgeds-Qqmzmymh 250 DO Work Phone: Start: 60-40-0962Epmcw-19 Vaccine ( season) Covid-19 Vaccine ( season)[facility]ertart: 46-20-7380FII, Provider: Avelina Chowdhury, Status: Pen, Time: 1:00 PMFUV, Provider: Avelina Chowdhury, Status: Pen, Time: 1:00 PMT[facility] 250 DO Work Phone: Start: 11-29-2022 End: 16-33-0635KHX MACULA CIRRUS OU (BOTH EYES)OCT MACULA CIRRUS OU (BOTH EYES) OPHT Imaging Routine Epiretinal membrane (ERM) of both eyes Nevus of choroid of left eye Expected: 11/29/2022, Expires: 05/08/2023[facility] Work Phone: Comment on above:Expected: 11/29/2022, Expires: 05/08/2023Start: 30-17-3452Pgyvblpgc vaccinationINFLUENZA (Season Ended) [facility]: 59-61-5562ANKXR-19 VACCINE (4 - Booster for Moderna series)COVID-19 VACCINE (4 - Booster for Moderna series)[facility]: 43-96-0111NNMQIHB DIRECTIVE DISCUSSIONADVANCE DIRECTIVE DISCUSSIONMain Campus Medical Centertart: 72-45-5390ESK Vaccine (1 - 1-dose 75+ series)RSV Vaccine (1 - 1- dose 75+ series)[facility]: 72-84-9027NIADCYXP SCREENDIABETES SCREEN [facility]: 31-43-3813Pffrbata ScreeningDiabetes ScreeningMain Campus Medical Centertart: 59-05-2933Cjrrjlqmkvvu Vaccine: 65+ (1 of 1 - PCV)Pneumococcal Vaccine: 65+ (1 of 1 - PCV)[facility]: 84-19-4675NIORSHQQOQXK: 65+ (1 - PCV)PNEUMOCOCCAL: 65+ (1 - PCV)[facility]: 04-01-2006Medicare Annual Wellness VisitMedicare Annual Wellness VisitMain Campus Medical Centertart: 52-08-5854ONW patients and/or patients aged 60+ years (1 - 1-dose 60+ series)RSV patients and/or patients aged 60+ years (1 - 1-dose 60+ series)[facility]: 91-92-5259PMR Vaccine (1 - 1-dose 60+ series)RSV Vaccine (1 - 1-dose 60+ series)[facility]: 1990 SHINGRIX VACCINE (1 of 2)SHINGRIX VACCINE (1 of 2)[facility]: 39-13-4554Qppgmv Vaccines (1 of 2)Zoster Vaccines (1 of 2)[facility]: 76-46-7823UBlW/Tdap/Td Vaccines (1 - Tdap)DTaP/Tdap/Td Vaccines (1 - Tdap)[facility]: 09-29-1959 Pneumococcal Vaccine: 50+ (1 of 2 - PCV)Pneumococcal Vaccine: 50+ (1 of 2 - PCV) [facility]: 45-02-4999Yiymu microalbumin profileOhio State University We[facility]ner Medical Center Start: 70-12-5432Pcabhzy ScreeningAnxiety ScreeningMain Campus Medical Centertart: 47-50-8860Ccvkydfhbd ScreeningDepression ScreeningMain Campus Medical Centertart: 23-80-4223Jcstfwkmzwys Vaccine: 65+ (1 of 2 - PCV)Pneumococcal Vaccine: 65+ (1 of 2 - PCV)[facility]: 28-60-9654Blyxkkegewer Vaccine: 65+ Years (1 of 2 - PCV)Pneumococcal Vaccine: 65+ Years (1 of 2 - PCV)[facility]: 03-22-9361Snscd panelLipid PanelUnAshtabula County Medical Center: 04-23-1941Medicare Annual Wellness VisitMedicare Annual Wellness Visit (AWV)[facility] HospitalCardioversion elective arrhythmia internal spx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, ELECTIVE, ELECTRICAL Cardiology Routine Paroxysmal atrial fibrillation (HCC) Ordered: 02/04/2024[facility] Work Phone: Comment on above:Ordered: 02/04/2024 End: 45-92-0237UXO COMPLETEECG COMPLETE ECG Routine Paroxysmal atrial fibrillation (HCC) 1 Occurrences starting 02/05/2024 until 5CShel[facility] Work Phone: comment on above:1 Occurrences starting 02/05/2024 until 02/04/2025 End: 45-13-6423GQH COMPLETEECG COMPLETE ECG Routine SOB (shortness of breath) 1 Occurrences starting 09/26/2024 until 09/26/2025[facility] Work Phone: comment on above:1 Occurrences starting 09/26/2024 until 09/26/2025 End: 94-28-8915RBT COMPLETEECG COMPLETE ECG Routine PAF (paroxysmal atrial fibrillation) (HCC) 1 Occurrences starting 12/19/2024 until 12/19/2025[facility] ClinicComment on above:1 Occurrences starting 12/19/2024 until 12/19/2025 End: 83-07-7614VWYN TRANSESOPHAGEALECHO TRANSESOPHAGEAL Cardiology Routine Paroxysmal atrial fibrillation (HCC) 1 Occurrences hcqtsehe88/29/2024 until 02/03/2025[facility] ClinicComment on above:1 Occurrences starting 02/04/2024 until 02/03/2025 End: 86-19-8276TQVT TRANSESOPHAGEALECHO TRANSESOPHAGEAL Cardiology Routine PAF (paroxysmal atrial fibrillation) (HCC) 1 Occurrences starting 12/19/2024 until 12/19/2025leveland ClinicComment on above:1 Occurrences starting 12/19/2024 until 12/19/2025 End: 31-03-6769MEPGJ Heart for infarct W Tc-99m PYP IVNM SPECT/CT CARDIAC AMYLOID Radiology Routine Chronic diastolic heart failure (HCC) [address] arting 09/20/2024 until 10/20/2025[facility] Work Phone: comment on above:1 Occurrences starting 09/20/2024 until 10/20/2025 Immunizations Immunization DateImmunizationNotesCare WxbilfnvBcqekncb27-82-2491Jsonwlh COVID- 19 Vaccine 100 MCG/0.5ML Intramuscular SuspensionDouglas M Hoy Work Phone: [phone]-JtgemTyler Hospital 250 DO Work Phone: [phone] COVID-19 Vaccine 100 MCG/0.5ML Intramuscular SuspensionDouglas M Hoy Work Phone: [phone]-GnmxnTyler Hospital 250 DO Work Phone: [phone] COVID-19 Vaccine 100 MCG/0.5ML Intramuscular SuspensionDouglas M Hoy Work Phone: [phone]-XvtduTyler Hospital 250 DO Work Phone: [phone]b virus vaccine, unspecified formulationDouglas M Hoy Work Phone: [phone]-JownrTyler Hospital 250 DO Work Phone: [phone]ybwwbqrbs virus vaccine, unspecified formulationDouglas M Hoy Work Phone: [phone]-WekykTyler Hospital 250 DO Work Phone: [phone]e, high dose seasonal, preservative-freeDouglas M Hoy Work Phone: [phone]-WkmnpTyler Hospital 250 DO Work Phone: Payers DatePayer CategoryPayerPolicy [id number] [id number] O MEDICARE SUPPLEMENT [id number] 2020-Present [phone] [address] [place] [address] [id number] 2020Unknown2006Medicare [id number] [id number] 1960 [id number] 2.16.840.1.617061.3.579.2.593 [id number] 2.16.840.1.697791.3.57[id number] 2.16.840.1.015198.3.57[id number] 2.16.840.1.524413.3.57[id number] 2.16.840.1.304206.3.57[id number] 2.16.840.1.940399.3.57[id number] 2.16.840.1.450519.3.57[id number] 2.16.840.1.652564.3.57[id number] 2.16.840.1.911287.3.57[id number] 2.16.840.1.628017.3.57[id number] 2.16.840.1.532818.3.57[id number] 2.16.840.1.233292.3.57[id number] 2..840.1.430944.3.57[id number] 2.16.840.1.790322.3.57[id number] 2..840.1.180083.3.57[id number] 2.16.840.1.391283.3.57[id number] 2.840.1.426456.3.57[id number] 2..840.1.8804[id number] 2.0.1.540714.3.579.2.531 [id number] 2.840.1.570335.3.579.2.531 Social History DateTypeDetailFacilityStart: 12-14-2015 End: 02-38-0378Faimrup smoking status NHISNever smoked tobaccoOhio State University Wexner Medical Center Start: 12-14-2015 End: 34-71-9547Mkrczyx use and exposureSmokeless tobacco non-userMain Campus Medical Centertart: 11-14-2021 End: 75-06-8880Rhesact intakeCurrent drinker of alcohol (finding)[facility]ert[facility]: 35-01-4863Zipgpkc SDOH Alcohol Commenton occMain Campus Medical Centertart: 39-87-4901Rnc Assigned At BirthNot on fileMain Campus Medical Centertart: 02-04-2024 End: 61-28-7587Wkoxh a smokerNever a smokerOhio State University Wexner Medical CenterComment on above: COFFEE DAILY;Start: 05-25-2023 End: 35-55-7286Lwziuxy smoking status NHISEx-smokerMercer County Community Hospital Work Phone: Start: 74-05-3327Cobgzaf of tobacco useCurrent smoker [facility] Work Phone: Start: 74-28-5309Eepncyg of tobacco useCigarette SmokerUnRegency Hospital Toledo Work Phone: Start: 02-04-2024 End: 97-55-6552Ypflxbt use panelOhio State University Wexner Medical CenterNational Score (1-100), lower number is lower euua98CmmcwclmgMain Campus Medical Centertart: 04-57-4281Itneoug CommentSmoked as a teenager for a brief period of timeUnRegency Hospital Toledo Work Phone: Start: 92-46-1542Emejvfg Comment1 beer a month [facility] Work Phone: Start: 12-15-2023 End: 94-83-6196Liwxfjpe to SARS-CoV-2 (event)Not sureUnRegency Hospital ToledoSexual OrientationExecutive [facility]rology of [facility] Start: 96-31-4000NlyQage (finding)[facility] Medical Equipment Procedure CodeEquipment CodeEquipment Original TextEquipment IdentifierDates CYSTOSCOPY RETROGRADE STENT INSERTION Unknown 06/16/24 Unknown Ureter LFDAStart: 93-86-4575XDJWMWFZDD RETROGRADE STENT INSERTION Unknown 06/16/24 Unknown Ureter L FDAStart: 75-49-4292ZJVJRYTNGW RETROGRADE STENT INSERTION Unknown 06/16/24 Unknown Ureter LFDAStart: 11-72-8935HHXIFRMRWS RETROGRADE STENT INSERTION Unknown 06/16/24 Unknown Ureter LFDAStart: 06-16-2024 Goals DatePatient GoalDesired Activity/StatePersonal health goal Functional Status YtztMuldvdqpfuModmrdGwdavdpd98-65-4833Wsdmqiping StatusN/AExecutive Urology of Tuscarawas Hospital01-02-2025Functional StatusN/AFGalion Community Hospital01-02-2025Functional StatusN/AExecutive Urology of [facility]caraw[facility] Hospital09-03-2024Are you deaf, or do you have serious difficulty hearingNo 02/09/2024 4:35 PM Evelia Vaughan, DARRIAN [facility] 55-38-7302Dlh you blind, or do you have serious difficulty seeing, even when wearing glassesNo 02/09/2024 4:35 PM Evelia Vaughan RN NoCMain Campus Medical CenterFclvji80-07-0974Yb you have serious difficulty walking or climbing stairsNo 02/09/2024 4:35 PM Evelia Vaughan, DARRIAN AjMain Campus Medical CenterTmohrc82-39-0982Ds you have difficulty dressing or bathingNo 02/09/2024 4:35 PM Evelia Vaughan, DARRIAN [facility] Medical CenterLlsdgk26-35-5613Arusaav of a physical, mental, or emotional condition, do you have difficulty doing errands alone such as visiting a physician's office or shoppingNo 02/09/2024 4:35 PM Evelia Vaughan RN [facility] Mental Status OlboQzbvadiljgCheiyqYjvaxppi88-97-4488Zuqzihs of a physical, mental, or emotional condition, do you have serious difficulty concentrating, remembering, or making decisionsNo 02/09/2024 4:35 PM Evelia Vaughan, DARRIAN [facility] Clinical Notes 11-14-2021 to 01-02-2025 Note Date & IqvdBixzJsntcvaw55-43-7312 Hospital Discharge instructions Patient Education 01/02/2025 10:51:38 [...] include: ?8 oz (237 mL) of milk, gsehnbx-ijanzgwcnvmk-znvct milk, and calcium- fortifiedfruit juice. Calcium-fortified means [...] ?Spinach (cooked), rhubarb, beets, sweet potatoes, and [place] chard. ?Peanuts. ?Potato chips, danish fries, and baked potatoes with skin on. ?Nuts and nut products. ?Chocolate. If you regularly take a diuretic medicine, make sure to eat at least 1 or 2 servings of fruits or vegetables that are high in potassium each day. These include: ?Avocado. ?Banana. ?[place], prune, carrot, or tomato juice. ?Baked potato. [...] magnesium, fish oil, or vitamin B6. Take ryrt-xfg-eelprde and prescription medicines only as told by [...] Casseroles. Pizza. Lasagna. Frozen meals. Potato chips. Macanese fries. The items listed above may not [...] Document Reviewed: 09/04/2022 Elsevier Patient Education 2023 [employer] Follow Up Care 07/07/2024 11:03:32 With:MIKE SLADE MD, URL Address: When: Unknown [facility] 07-28-2025 NotePatient Education Nephrology Dietary Guidelines [...] ? 8 oz (237 mL) of milk, nahczys-wkvekwdywmpe-tevpv milk, and calcium- fortifiedfruit juice. Calcium-fortified means [...] Spinach (cooked), rhubarb, beets, sweet potatoes, and [place] chard. ? Peanuts. ? Potato chips, danish fries, and baked potatoes with skin on. ? Nuts and nut products. ? Chocolate. ??? If you regularly take a diuretic medicine, make sure to eat at least 1 or 2 servings of fruits or vegetables that are high in potassium each day. These include: ? Avocado. ? Banana. ? [place], prune, carrot, or tomato juice. ? Baked [...] fish oil, or vitamin B6. ??? Take bgsk-tbk-shjnyyo and prescription medicines only as told by your health (more content not included)...[facility]07-14-2025 Telephone encounter Note* Telephone Encounter - Barbara Mcclendon RN - 12/19/2024 10:20 AM EDT Patient returned call & accepted date. SDM by Dr. Mendoza - no appointment needed. Needs OPD with EP CROSS TIE MAKER, ECG & Labs (CBC CMP,30 day T&S with Confirm) within 30 days prior to procedure date. Needs procedural SHARON. Medication instructions given, as indicated below. Stated understanding. Letter with instructions mailed to the patient. [facility]07-14-2025 Miscellaneous Notes* Telephone Encounter - Barbara Mcclendon RN - 12/19/2024 10:20 AM EDT Patient returned call & accepted date. SDM by Dr. Mendoza - no appointment needed. Needs OPD with EP CROSS TIE MAKER, ECG & Labs (CBC CMP,30 day T&S [...] requested: Left Appendage Closure Device Watchman CPT 84631 + PVI Anticoagulation Status: Eliquis (apixaban) Requesting Physician: Ariana Valles MD Procedural Physician: Ariana Valles MD or rd qureshi (ablation and Reena for watchman) Date of last H&P or Date of upcoming H&P: 09/20/24 Indications for procedure: Atrial Fibrillation and Previous bleed Procedure time frame: Patient convenience Current Meds: Current Outpatient Medications: apixaban (ELIQUIS) 2.5 mg tab(s) Jnmpjpolaenlr-Orpmywlv-Avpxpz (CENTRUM SILVER) tab magnesium oxide 400 mg [...] 26, 2024 4:46 PM documented in this encounterOhio State University [facility] Center07-11-2025 Telephone encounter Note * Telephone Encounter - Barbara Mcclendon RN - 12/16/2024 2:29 PM EDT I reached out to patient to confirm the date. Patient asked to call back next week, by 12/20/24, with confirmation. [facility]07-09-2025 Telephone encounter Note* Telephone Encounter - Lolita Banegas RN - 12/14/2024 6:17 PM EDT Called and left message offering patient procedure date of Thursday05/26/[address] Valles. Awaiting return call and confirmation from patient. [facility]07-09-2025 Telephone encounter Note* Telephone Encounter - Lolita Banegas RN - 12/14/2024 6:17 PM EDT ----- Message from Ariana Valles MD sent at 09/26/2024 4:45 PM EDT ----- Regarding: PVI + Watchman Patient: Brandi Dalton JR EP Lab Procedure requested: Left Appendage Closure Device Watchman CPT 79774 + PVI Anticoagulation Status: Eliquis (apixaban) Requesting Physician: Ariana Valles MD Procedural Physician: Ariana Valles MD or rd qureshi (ablation and Kochar for watchman) Date of last H&P or Date of upcoming H&P: 09/20/24 Indications for procedure: Atrial Fibrillation and Previous bleed Procedure time frame: Patient convenience Current Meds: Current Outpatient Medications: apixaban (ELIQUIS) 2.5 mg tab(s) Pixeczebvqqoo-Turaopqj-Phelne (CENTRUM SILVER) tab magnesium oxide 400 mg [...] Valles MD September 26, 2024 4:46 PM [facility]06-30-2025 NoteHNO ID: [id number] Author: KENDRA MENDOZA MD Service: ? 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 Bzfzkgswxreiv-Aqmtcocz-Qdnhos (CENTRUM SILVER) tab Take 1 tablet by [...] Score 0 1 05/21/2024 (more content not included)...[facility]06-30-2025 History of Present illness Narrative* Kendra Mendoza MD - 12/05/2024 12:40 PM EDT Images from the original note were not included. 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 Hwqyigrqiwkio-Twvzldxx-Qkhsui (CENTRUM SILVER) tab Take 1 tablet by [...] Abs Lymph 1.00 - 4.00 k/uL 1.74 Winston% % 13.6 Abs Winston <0.87 k/uL 0.85 Eosin% % 3.5 Abs [...] Staff Review Reviewed by Mansi Kuo MD Wiley Free, Serum 3.3 - 19.4 mg/L Lambda [...] due to bradycardia post-cardioversion the B-tyron was vndaloa95/2/24 and diuretics stopped due to hypotension. Eliquis [...] and consideration for watchman (Dr Ariana Valles [phone] ) Followup with me in 6 mo [...] non-medical management as above. Kendra Mendoza MD [facility] Section Of Heart Failure and Cardiac Transplant Medicine Heart [facility] Vascular [facility] Desk J3-[address] [place] [address] documented in this encounterOhio State University [facility]04-28-2025 Instructions* Patient Instructions* Tomy Hutton MD - 10/03/2024 1:30 PM EDT -blood work today -continue to follow with Dr. Mendoza and Dr. Valles -Whole body X-rays documented in this encounterOhio State University [facility]04-28-2025 NoteHNO ID: [id number] Author: JOSE MARIA PORTER MD Service: ? 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 Yeujtmaraqjby-Lbwqapkx-Mcvgna (CENTRUM SILVER) tab Take 1 tablet by [...] no acute distress, well-hydrated, (more content not included)...[facility]04-28-2025 History of Present illness Narrative* Tomy Hutton MD - 10/03/2024 1:00 PM EDT Images from the original note were not included. 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 Referred by Dr. Ariana Valles He has a significant medical history of CHF, HTN, Afib s/p DCCV 02/09/24, bilateral carpal tunnel, iron deficiency anemia, hypothyroid, presence of M protein He follows a regular diet and does not participates in regular exercise/activity. 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 Hebjdhvloxyxk-Fycbliab-Vcyvyh (CENTRUM SILVER) tab Take 1 tablet by [...] reviewed the Electrocardiogram, Laboratory Testing, and Echocardiogram. [facility] 10/03/2024 CONCLUSIONS: 1. Not Consistent with TTR [...] non-medical management as above. Toney Hutton MD [facility] Section Of Heart Failure and Cardiac Transplant Medicine Heart [facility] Desk J3-[address] [place] [address] documented in this encounterOhio State University [facility]04-28-2025 History of Present illness Narrative* Jose Maria Porter MD - 10/03/2024 1:00 PM EDT Images from the original note were not included. 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 Ficjesqszkhlw-Pyqbnmdf-Newckx (CENTRUM SILVER) tab Take 1 tablet by [...] No results found for: MPROTCONCENT , MSPK24 Wiley Free, Serum (mg/L) Date Value 09/20/2024 83.2 [...] CC: Dr. Ariana Valles. documented in this encounterOhio State University [facility]04-28-2025 NoteHNO ID: [id number] Author: TOMY HUTTON MD Service: ? 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 Referred by Dr. Ariana Valles He has a significant medical history of CHF, HTN, Afib s/p DCCV 02/09/24, bilateral carpal tunnel, iron deficiency anemia, hypothyroid, presence of M protein He follows a regular diet and does not participates in regular exercise/activity. 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 His symptoms have resolved since [facility]. 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 Xbunxkouywkyj-Otluigdw-Ffgsva (CENTRUM SILVER) tab Take 1 tablet by [...] Heart Failure ) 87 (more content not included)...[facility]04-28-2025 History of Present illness Narrative* Ileana Valentino [...] PATIENT PRESENTS WITH AN IMPLANTABLE OR ATTACHED ADMITTED ATTORNEYS: No CREATININE: Creatinine Date Value Ref Range [...] 724 PATIENT DISCHARGED TO: Ambulatory patient, left [place] department area. Is this a therapy: No A Diagnostic radioactive procedure has taken place, with no further precautions necessary other than routine body substance precautions. More information regarding radiation safety can be found usingthis link: [email or web address] SIGNATURE: Mary Nogueira PATIENT NAME: Brandi Dalton JR DATE: October 03, 2024 TIME: 7:26 AM PAGER/CONTACT #: documented in this encounterOhio State University [facility]04-28-2025 NoteHNO ID: [id number] Author: ILEANA VALENTINO Tech Service: ? Author [...] PATIENT PRESENTS WITH AN IMPLANTABLE OR ATTACHED ADMITTED ATTORNEYS: No CREATININE: Creatinine Date Value Ref Range [...] October 03, 2024 TIME: 7:26 AM PAGER/CONTACT #:[facility]04-15-2025 Instructions * Patient Instructions* Ariana Valles MD [...] testing within the next few months. The senior front end developer can assist with scheduling. [...] to the scheduled date. documented in this encounterOhio State University [facility]04-15-2025 History of Present illness Narrative* Ariana Valles MD - 09/20/2024 2:30 PM EDT Images from the original note were not included. 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 Aqgskltnetlcp-Lsqoyufv-Vlivqv (CENTRUM SILVER) tab Take 1 tablet by [...] mg, DAILY magnesium oxide 400 mg, DAILY Euzcaplsoupbm-Egqqnyfw-Vfyyae (CENTRUM SILVER) tab 1 tablet, DAILY selenium [...] EKG: Sinus rhythm with first-degree AV block, MA 236 ms. ASSESSMENT and PLAN: 1. Chronic [...] components of medical decision making. Recording using Carebase software for draft documentation of the visit was discussed with the patient/authorized primary care sales representative; all questions welcomed and answered. Patient/authorized primary care sales representative agreed to proceed A copy of this note will be provided to the requesting physician by way of shared Medical record. Thank you for our visit today; it's a privilege to be part of your care. Ariana Valles MD Staff Shank Sorter [phone] (Office and Appointments) [facility] Heart, Vascular and Thor[facility] [address], Desk [address] [place] [address] documented in this encounterOhio State University [facility]04-15-2025 NoteHNO ID: [id number] Author: ARIANA VALLES MD Service: ? 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 Nlnppcbogmsai-Jwelzobt-Cmvmxh (CENTRUM SILVER) tab Take 1 tablet by [...] no carotid bruits, carotid (more content not included)...[facility]01-30-2025 Hospital Discharge instructions Patient Education 07/07/2024 11:02:34 [...] include: ?8 oz (237 mL) of milk, zqayeeu-vlnllpyxcfen-ghqmt milk, and calcium- fortifiedfruit juice. Calcium-fortified means [...] ?Spinach (cooked), rhubarb, beets, sweet potatoes, and [place] chard. ?Peanuts. ?Potato chips, danish fries, and baked potatoes with skin on. ?Nuts and nut products. ?Chocolate. If you regularly take a diuretic medicine, make sure to eat at least 1 or 2 servings of fruits or vegetables that are high in potassium each day. These include: ?Avocado. ?Banana. ?[place], prune, carrot, or tomato juice. ?Baked potato. [...] magnesium, fish oil, or vitamin B6. Take bphw-ppb-dltgjvh and prescription medicines only as told by [...] Casseroles. Pizza. Lasagna. Frozen meals. Potato chips. Macanese fries. The items listed above may not [...] provider. Document Revised: 09/04/2022 Document Reviewed: 09/04/2022 [employer] Patient Education 2023 [employer]. Follow Up Care 06/27/2024 08:11:57 With:GEORGI TRUJILLO, MIKE, URL Address: When: Unknown [facility] 01-30-2025 NotePatient Education Nephrology Dietary Guidelines [...] ? 8 oz (237 mL) of milk, iaeyqlg-rfztavmavjnc-tstbl milk, and calcium- fortifiedfruit juice. Calcium-fortified means [...] Spinach (cooked), rhubarb, beets, sweet potatoes, and [place] chard. ? Peanuts. ? Potato chips, danish fries, and baked potatoes with skin on. ? Nuts and nut products. ? Chocolate. ??? If you regularly take a diuretic medicine, make sure to eat at least 1 or 2 servings of fruits or vegetables that are high in potassium each day. These include: ? Avocado. ? Banana. ? [place], prune, carrot, or tomato juice. ? Baked [...] fish oil, or vitamin B6. ??? Take ffkj-kwy-zsuvjcx and prescription medicines only as told by your health (more content not included)...[facility]01-09-2025 Evaluation + Plan noteExtracted from:Title:MARIAH Post-operative Note - GeneralAuthor:Mark Ly Jr., DOate:06/16/24 Plan Transfer/Discharge: Transfer/Discharge Discharge when meets criteria ( From PACU to Ambulatory Surgery Unit, and To home ). Extracted from:Title:MARIAH Pre-operative Note - AdultAuthor:Mark Ly Jr., DOate:06/16/24 Plan [place] [employer] Anesthesiologists (ASA) physical status classification: Class III. Anesthetic Preoperative Plan: Anesthesia General.[facility] [id number] Hospital Discharge instructions Patient Education 06/16/2024 09:07:13 Ubta-Nxau-bp Utereroscopy,Lithotripsy, Stone Extraction, Stent Placement (CUSTOM) [facility] [place], [place] Dr. Kurtis Alegria Post-operative Instructions for [...] arrange for your post-operative appointment (with XRAY) [phone] 06/16/2024 09:06:54 Post Op Patient Instructions - FT (CUSTOM) Follow Up Care 06/09/2024 10:34:06 With:MIKE SLADE Address:Unknown When: Unknown Comments:1-2 weeks to discuss TURP [facility] 01-09-2025 NoteProgress Note-Physician Patient: BRANDI DALTON JR Age: 83 years Sex: Male : 1940 Associated Diagnoses: None Author: Mark Ly Jr., DO Postoperative Information Postoperative disposition: Postoperative disposition: Home. Optimetrix number: Optimetrix number [id number]. Anesthetic utilized: General. Physical Examination Vital Signs [...] to Ambulatory Surgery Unit, and To home ).[facility]:Result Comment: Electronically Signed By: Mark Ly Jr., DO.jonathan\Date and Time Signed: 06/16/24 09:47 [id number] NotePatient Education - Text [facility] [place], [place] Dr. 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 Procedure history: Lithotripsy (765280635). Cataract (876098119). Colectomy (99780973). Knee replacement (013275418). Hemorrhage (0671802247). Tonsillectomy (900267763). Social History Social & Psychosocial Habits Alcohol [...] Auto 66.3 % Lymph Auto 15.8 % Winston Auto 9.7 % Eos Auto 7.5 % Basophil Auto 0.7 % Neutro Absolute 4.4 E9/L Lymph Abs (more content not included)...[facility] Hospital[facility]:Result Comment: Electronically Signed By: Mark yL Jr., DO.jonathan\Date and Time Signed: 06/16/24 07:16 [id number] Hospital Discharge instructions Patient Education 06/09/2024 10:19:36 [...] including vitamins, herbs, eye drops, creams, and xbiz-oau-hjasody medicines. Any problems you or family members [...] health care provider tells you to. Taking ekdz-mml-gnzjvvr medicines, vitamins, herbs, and supplements. General instructions [...] provider. Document Revised: 04/27/2023 Document Reviewed: 04/27/2023 [employer] Patient Education 2023 [employer]. Follow Up Care 06/03/2024 13:17:03 With:GEORGI TRUJILLO, MIKE, JASON Address: When: Unknown [facility] 01-02-2025 NotePatient Education Urology Ureteroscopy Ureteroscopy [...] including vitamins, herbs, eye drops, creams, and hrro-npx-ffccpob medicines. ??? Any problems you or family [...] care provider tells you to. ??? Taking eall-ynv-cctwcdw medicines, vitamins, herbs, and supplements. General instructions [...] happens after the procedure? (more content not included)...[facility]12-17-2024 NoteHNO ID: [id number] Author: KENDRA MENDOZA MD Service: ? Author Type: Physician Type: Progress Notes Filed: 05/24/2024 17:30 Note Text: Heart [facility] SECTION OF HEART FAILURE and CARDIAC TRANSPLANT MEDICINE OUTPATIENT VISIT DATE May 24, 2024 OUTPATIENT VISIT TYPE Established Patient PRIMARY CARE PHYSICIAN: Samantha Maya [address] [place] [address] CHIEF COMPLAINT: HF f/u NURSING INTAKE (Patient?s [...] Take 5 mg by mouth once daily. Vqaldceqvjuvx-Jbzwipho-Uldllq (CENTRUM SILVER) tab Take 1 tablet by [...] displaced, S1, S2 normal (more content not included)...[facility]12-17-2024 History of Present illness Narrative* Kendra Mendoza MD - 05/24/2024 9:14 AM EST Images from the original note were not included. Heart [facility] V[facility] SECTION OF HEART FAILURE and CARDIAC TRANSPLANT MEDICINE OUTPATIENT VISIT DATE May 24, 2024 OUTPATIENT VISIT TYPE Established Patient PRIMARY CARE PHYSICIAN: Samantha Maya [address] [place] [address] CHIEF COMPLAINT: HF f/u NURSING INTAKE (Patient [...] Take 5 mg by mouth once daily. Ctouyfojtzxuz-Yyrdtypd-Zvwzig (CENTRUM SILVER) tab Take 1 tablet by [...] due to bradycardia post-cardioversion the B-tyron was irbpufs15/2/24 and diuretics stopped due to hypotension. Eliquischanged [...] non-medical management as above. Kendra Mendoza MD [facility] Section Of Heart Failure and Cardiac Transplant Medicine Heart [facility] Vascular [facility] Desk J3-[address] [place] [address] Addendum: Labs Latest Ref Rng 05/24/2024 Glucose [...] (H) High (L) Low documented in this encounterOhio State University [facility]12-09-2024 Telephone encounter Note * Telephone Encounter - Ian Hogue RN - 05/16/2024 5:10 PM EST Patient will need to meet with Ep physician who preforms Watcheileen (Dr Qureshi placed consult). Patient updated and provided scheduling number. Message also sent to schedulers. Ian Hogue RN [facility]12-09-2024 Miscellaneous Notes* Telephone Encounter - Ian Hogue RN - 05/16/2024 5:10 PM EST Patient will need to meet with Ep physician who preforms Watchman (Dr Qureshi placed consult). Patient updated and provided scheduling number. Message also sent to schedulers. Ian Hogue RN * Telephone Encounter - Georgia Cannon - 05/10/2024 10:35 AM EST May 10, 2024 Patient Contact Number: [phone] (home) [phone] (work) [phone] (cell) Patient last seen within the last [...] you, Georgia Cannon, Debbie documented in this encounterOhio State University [facility]12-03-2024 Telephone encounter Note * Telephone Encounter - Georgia Cannon - 05/10/2024 10:35 AM EST May 10, 2024 Patient Contact Number: [phone] (home) [phone] (work) [phone] (cell) Patient last seen within the last [...] for scheduling. Thank you, Georgia Cannon, Admin [facility]12-02-2024 Instructions* Patient Instructions* Rd Qureshi MD - [...] an ablation + watchman. documented in this encounterOhio State University [facility]12-02-2024 History of Present illness Narrative* Rd Qureshi MD - 05/09/2024 10:45 AM EST Images from the original note were not included. [facility] V[facility] Department of Cardiovascular Medicine TELEPHONE VISIT (audio [...] visit. Either the patient or their legal primary care sales representative has been informed of the [...] mg by mouth two times a day. Obxyejoqsxise-Xzltnwqh-Kazijh (CENTRUM SILVER) tab Take 1 tablet by [...] 06, 2024 2:59 PM documented in this encounterOhio State University [facility]12-02-2024 NoteHNO ID: [id number] Author: RD QURESHI MD Service: ? Author Type: Physician Type: Progress Notes Filed: 05/09/2024 11:20 Note Text: [facility], Vascular [facility] Department of Cardiovascular Medicine TELEPHONE VISIT (audio [...] visit. Either the patient or their legal primary care sales representative has been informed of the [...] mg by mouth two times a day. Itpvdftxqzohh-Jktfbwuv-Sntids (CENTRUM SILVER) tab Take 1 tablet by [...] Cardioversion, Pre AF Ablation (more content not included)...[facility]10-11-2024 Instructions * Patient Instructions* Compa Corcoran APRN.CNP - 03/18/2024 10:42 AM EDT -No medication changes today. -Please have blood work faxed to me when you get it done locally. -Follow-up with Dr. Mendoza on 05/24/2024 with labs and testing. documented in this encounterOhio State University [facility]10-11-2024 NoteHNO ID: [id number] Author: COMPA CORCORAN APRN.CNP Service: ? Author Type: Nurse Practitioner Type: Progress Notes Filed: 03/18/2024 16:06 Note Text: Heart [facility] SECTION OF HEART FAILURE and CARDIAC TRANSPLANT MEDICINE OUTPATIENT VISIT DATE 03/18/2024 PRIMARY CARE PHYSICIAN: Samantha Maya [address] [place] [address] PRIMARY HEART FAILURE CONTRACT SERVICEMAN: Dr. Mendoza CHIEF COMPLAINT: Follow-up HISTORY OF [...] Take 40 mg by mouth once daily. Foxjosxlccrto-Cvngmwma-Atjjrf (CENTRUM SILVER) tab Take 1 tablet by [...] or cyanosis. Warm, peripheral (more content not included)...[facility]10-11-[facility] History of Present illness Narrative* Compa Corcoran APRN.COMMUNICATION LECTURER - 03/18/2024 10:16 AM EDT Images from the original note were not included. Heart [facility] V[facility] SECTION OF HEART FAILURE and CARDIAC TRANSPLANT MEDICINE OUTPATIENT VISIT DATE 03/18/2024 PRIMARY CARE PHYSICIAN: Samantha Maya [address] [place] [address] PRIMARY HEART FAILURE CONTRACT SERVICEMAN: Dr. Mendoza CHIEF COMPLAINT: Follow-up HISTORY OF [...] Take 40 mg by mouth once daily. Pnevsfpzbkrwd-Kukskkmj-Iwpxcg (CENTRUM SILVER) tab Take 1 tablet by [...] 99 mg/dL 92 105 R Comment: The [place] Diabetes Association (ADA) provides guidance for cutoff [...] Standards of Medical Care in Diabetes 2016, [place] [employer] Association. Diabetes Care. 2016.39(Suppl 1). BUN [...] not accurately reflect actual GFR. Resulting Agency [facility] Specimen Collected: 02/09/24 See EPIC for [...] no Other anti-HTN: no Device therapy: no, karuk QRS: 116 ms Sleep apnea: no Anemia: [...] as above. Compa Corcoran MSN, ACNP-BC, CHFN, [facility] Section Of Heart Failure and Cardiac Transplant Medicine Heart [facility] Desk J3-[address] [place] [address] documented in this encounterOhio [facility]09[facility] Telephone encounter Note * Telephone Encounter - [...] verbalized understanding. [facility]09-10-2024 Miscellaneous Notes* Telephone Encounter - Marily Lange [...] Name: Brandi Dalton JR Patient Contact Number: [phone] (home) [phone] (work) Date of last office visit: 02/04/2024 [...] days. Yes Cesar Womack documented in this encounterOhio [facility]09-[facility]24 Telephone encounter Note * Telephone Encounter - Cesar Womack - 02/16/2024 12:38 PM EDT February 16, 2024 Name: Brandi Dalton JR Patient Contact Number: [phone] (home) [phone] (work) Date of last office visit: 02/04/2024 [...] Cesar Womack [facility]09-03-2024 Nurse Note* Alexander Rodriguez, RN - 02/09/2024 [...] By Alexander Rodriguez RN In Department: CARDIOLOGY [facility]09-03-2024 Nurse Note* Alexander Rodriguez RN - 02/09/2024 [...] REFERRAL (RECOMMENDATION): None Electronically Signed By Alexander oRdriguez RN In Department: CARDIOLOGY documented in this encounterOhio [facility] University [facility]08-30-[facility]24 Telephone encounter Note * Telephone Encounter - Marily Lange - 02/05/2024 9:36 AM EDT Completed in a separate encounter. [facility]08-30-2024 Miscellaneous Notes* Telephone Encounter - Marily Lange [...] 02/05/24 or 02/09/24 Kendra Mendoza (Including my historian research assistant Marily Nazario to keep her informed) THANKS documented in this encounterOhio [facility] University [facility]08-30-2024 History of Present illness Narrative* Shawanda Vargas [...] discussed with Physician, nurse practitioner or Physician historian research assistant upon discharge Instructions for transmitting EKG to Monitoring Center 3 month follow up instructions Contact number for information and questions Patient Evaluation: Verbalizes understanding Follow Up Plan: Follow up as directed by MD. Supplemental Material Given: Written Material Instructed By Shawanda Vargas RN. In Department of CARDIOLOGY. documented in this encounterOhio [facility] University [facility]08-30-2024 Telephone encounter Note * Telephone Encounter - Shawanda Vargas RN - 02/05/2024 8:[address] Mendoza requesting SHARON/DCC for 02/09/24. SHARON noted to be scheduled 02/08. DCC scheduled as requested.Patient's accepting date of 02/08. Shawanda Vargas RN [facility]08-30-2024 Miscellaneous Notes* Telephone Encounter - Shawanda Vargas RN - 02/05/2024 8:[address] Mendoza requesting SHARON/DCC for 02/09/24. SHARON noted to be scheduled 02/08. DCC scheduled as requested.Patient's accepting date of 02/08. Shawanda Vargas RN documented in this encounterOhio State University [facility]08-29-2024 Telephone encounter Note * Telephone Encounter - Kendra Mendoza MD - 02/04/2024 5:56 PM EDT please arrange SHARON with cardioversion for as soon as possible. Patient has been on eliquis 5 mg bid > 6 mo but has missed a few doses so SHARON is needed. Can youschedule for 02/05/24 or 02/09/24 Kendra Mendoza (Including my historian research assistant Marily Lange to keep her informed) THANKS [facility]08-29-2024 History of Present illness Narrative* eKndra Mendoza MD - 02/04/2024 4:00 PM EDT Images from the original note were not included. 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 He saw Dr. Yeager in [place] who did not address shortness of breath [...] Take 50 mg by mouth once daily. Okzoakalbsmee-Xrdyjaqx-Anpfjq (CENTRUM SILVER) tab Take 1 tablet by [...] HFrEF (LVEF 30%) and given IV diuretics. [place] a little better but still has shortness [...] non-medical management as above. Kendra Mendoza MD [facility] Section Of Heart Failure and Cardiac Transplant Medicine Heart [facility] V[facility] Desk J3-[address] [place] [address] documented in this encounterOhio State University [facility]07-19-2024 History of Present illness Narrative* Avelina Chowdhury [...] the direction and in the presence of Avleina Chowdhury MD. Provider Attestation - Scribe documentation All medical record entries made by the Scribe were at my direction and personally dictated by me. Ihgiselle reviewed the chart and agree that the record accurately reflects my personal performance of the history, physical exam, discussion and plan. documented in this [facility] Work Phone: 1(362) 813-382807-19-2024 Instructions* Patient Instructions* Alycia Borrego LPN - [...] Provided instructions on exercise. [facility] Phone: 1(538) 402-692806-09-2022 History of Present illness Narrative* Zulema Levin MD - 11/14/2021 9:50 AM EDT New patient to Dr. Levin Last seen with Dr. Alberto ([place]) who thought that the choroidal nevus left [...] components. Zulema Levin MD documented in this encounterOhio State University [facility]ner Medical CenterEvaluation + Plan note Future Appointments Appointment Date:06/16/2024 09:00:00 AM Scheduled Provider: Location:[facility] Surgical Services Appointment Type:Surgery FT [facility] evaluation + Plan note Future Appointments Appointment Date:07/07/2024 10:40:00 AM Scheduled Provider:MIKE SLADE MD Location:[facility] Appointment Type:URO Office Visit [facility] In[employer] Cloudaluation + Plan note Future Appointments Appointment Date:01/02/2025 10:20:00 AM Scheduled Provider:MIKE SLADE MD Location:[facility] Appointment Type:URO Office Visit [facility] evaluation + Plan note Future Appointments Appointment Date:01/01/2026 11:20:00 AM Scheduled Provider:Blanca Vieira Location:[facility] Appointment Type:URO Office Visit [facility] evaluation note* Diagnosis 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 Epiretinal membrane (ERM) of both eyes documented in this encounter [facility] note* Diagnosis Paroxysmal atrial fibrillation (HCC)- [...] use of anticoagulants documented in this encounter [facility] note* Diagnosis Paroxysmal atrial fibrillation (HCC)- Primary Atrial fibrillation Persistent atrial fibrillation (HCC) Atrial fibrillation documented in this encounter [facility] note* Diagnosis Paroxysmal atrial fibrillation (HCC) Atrial fibrillation documented in this encounter [facility] note* Diagnosis Chronic systolic (congestive) heart failure (HCC)- Primary documented [facility]* Diagnosis Atrial fibrillation, persistent (HCC)- Primary Atrial fibrillation Typical atrial flutter (HCC) Atrial flutter documented [facility] this [facility]* Diagnosis Gastrointestinal bleeding, lower- Primary Hemorrhage of gastrointestinal tract, unspecified Atrial fibrillation, persistent (HCC) Atrial fibrillation Atypical atrial flutter (HCC) Atrial flutter Typical atrial flutter (HCC) Atrial flutter [facility]* Diagnosis Essential hypertension, benign Left atrial dilation Cardiomegaly Mitral valve insufficiency, unspecified etiology Persistent atrial fibrillation with rapid ventricular response (Multi) High risk medication use Shortness of breath Former smoker Personal history of tobacco use, presenting hazards to health documented in this encounter [facility] Work Phone: Evaluation note* Diagnosis Chronic systolic (congestive) heart failure (HCC)- Primary documented in this [facility]* Diagnosis Chronic diastolic heart failure (HCC)- Primary Chronic diastolic heart failure Complex medical condition Typical atrial flutter (HCC) Atrial flutter Paroxysmal atrial fibrillation (HCC) Atrial fibrillation Essential hypertension, benign Cardiomyopathy, nonischemic (HCC) Other primary cardiomyopathies Other hyperlipidemia History of partial colectomy Chronic anticoagulation Long-term (current) use of anticoagulants documented in this encounter [facility]* Diagnosis Atrial fibrillation, persistent (HCC)- Primary Atrial fibrillation Chronic diastolic heart failure (HCC) Chronic diastolic heart failure Non-rheumatic mitral regurgitation Mitral valve disorders Heart failure with reduced ejection fraction (HCC) Heart failure, unspecified Carpal tunnel syndrome, bilateral 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 Long-term (current) use of anticoagulants Gastrointestinal hemorrhage, unspecified gastrointestinal hemorrhage type documented in this encounter [facility]* Diagnosis SOB (shortness of breath)- Primary Shortness of breath documented in this [facility]* Diagnosis Chronic diastolic heart failure (HCC) Chronic diastolic heart failure documented in this [facility]* Diagnosis Chronic diastolic heart failure (HCC)- Primary Chronic diastolic heart failure PAF (paroxysmal atrial fibrillation) (HCC) Atrial fibrillation Non-rheumatic mitral regurgitation Mitral valve disorders documented in this [facility]* Diagnosis Monoclonal gammopathy- Primary Monoclonal paraproteinemia documented [facility] this encounter [facility]* Diagnosis Chronic diastolic heart failure (HCC)- [...] benign Other hyperlipidemia [facility] Diagnosis PAF (paroxysmal atrial fibrillation) (HCC)- Primary Atrial fibrillation Atrial fibrillation, unspecified type (HCC) [facility] Narrative No data available for this section [facility] Hospital Discharge instructions No data available for this section [facility] Progress note No data available for this section [facility] Reason for referral (narrative)* Outpatient Procedure (Routine) - AuthorizedSpecialtyDiagnoses / ProceduresReferred By Contact Referred To [facility] Diagnoses Paroxysmal atrial fibrillation (HCC) Procedures ECG COMPLETE ECG ROUTINE ECG W/LEAST 12 LDS W/I&R Arsen Talavera MD [address] [place] [address] [facility] [address] [place] [address] Referral IDStatusReasonStart DateExpiration DateVisits RequestedVisits [id number] Auto-Generated Referral [facility] for referral (narrative)* Consultation (Routine) - AuthorizedSpecialtyDiagnoses / ProceduresReferred By ContactReferred To ContactCardiology Diagnoses High risk medication use Avelina Chowdhury MD [address] [facility] [address], [address] [address] [place] [address] [place] [address] Referral IDStatusTanyaasonStart DateExpiration DateVisits RequestedVisits [id number] Specialty Services Required * Consultation (Routine) - AuthorizedSpecialtyDiagnoses / ProceduresReferred By ContactReferred To ContactCardiology Diagnoses Essential hypertension, benign Procedures Follow Up In Cardiology Avelina Chowdhury MD [address] [facility], [address] [place] [address] Avelina Chowdhury MD [address] [facility], [address] [place] [address] Referral IDStatRajiasonStart DateExpiration DateVisits RequestedVisits [id number]/19/20247/19/202511 * CV Imaging (Routine) - AuthorizedSpecialtyDiagnoses / ProceduresReferred By ContactReferred To ContactCardiology Diagnoses Left atrial dilation Mitral valve insufficiency, unspecified etiology Procedures Transthoracic Echo Complete MA ECHO TTHRC R-T 2D W/WOM-MODE COMPL SPEC&COLR D Avelina Chowdhury MD [address] [facility], [address] [place] [address] Referral IDStaEverradha DateExpiration DateVisits RequestedVisits [id number] Perform Procedure * Cardiovascular (Routine) - AuthorizedSpecialtyDiagnoses / ProceduresReferred By ContactReferred To Contact Diagnoses Persistent atrial fibrillation with rapid ventricular response (Multi) Procedures ECG 12 Lead Avelina Chowdhury MD [address] [facility], [address] [place] [address] Referral IDStatusReasonStart DateExpiration DateVisits RequestedVisits [id number]/19/20247/ [facility] Work Phone: Reason for referral (narrative)* Outpatient Procedure (Routine) - AuthorizedSpecialtyDiagnoses / ProceduresReferred By Contact Referred To [facility] Diagnoses Chronic diastolic heart failure (HCC) Procedures ECHO ECHO TTHRC R-T 2D W/WOM-MODE COMPL SPEC&COLR D Kendra Mendoza MD [address] [place] [address] [facility] [place] [address] Referral IDStatA[facility] DateExpiration DateVisits RequestedVisits [id number] Auto-Generated Referral * Transition of Care (Routine) - AuthorizedSpecialtyDiagnoses / Procedures Referred By ContactReferred To [facility] Procedures CARDIOVASCULAR MEDICINE OP FOLLOW UP APPT ORDER Kendra Mendoza MD [address] [place] [address] [place] [address] Referral IDStatTanyaGrandview Medical Center DateExpiration DateVisits RequestedVisits [id number] PCP Requested Referral [facility] (narrative)* Transition of Care (Routine) - AuthorizedSpecialtyDiagnoses / ProceduresReferred By ContactReferred To [facility] Procedures CARDIOVASCULAR MEDICINE OP [place] [address] [place] [address] Phone: tel: fax: [place] [address] Ref[facility] DateExpiration DateVisits RequestedVisits [id number] PCP Requested Referral [facility] for visit Narrative* Outpatient Procedure (Routine) - ClosedSpecialtyDiagnoses / ProceduresReferred By ContactReferred To Contact [facility] Diagnoses Paroxysmal atrial fibrillation (HCC) Procedures ECHO TRANSESOPHAGEAL ECHO TRANSESOPHAG R-T 2D W/PRB IMG CYRUS I&R Kendra Mendoza MD [address] [place] [address] [place] [address] Referral IDStatus[facility] DateExpiration DateVisits RequestedVisits [id number] Auto-Generated Referral / [facility] for visit Narrative* Diagnostic Procedure Only (Routine) - ClosedSpecialtyDiagnoses / ProceduresReferred By ContactReferred To Contact [facility] Diagnoses Chronic diastolic heart failure (HCC) Procedures NM SPECT/CT CARDIAC AMYLOID RP LOCLZJ BRINDA SPECT W/CT 1 AREA 1 DAY IMAGING Araina Valles MD [address] [id number] Phone: tel: fax: [facility] [address] [phone] Phone: tel: Referral IDStatusReasonStart DateExpiration DateVisits RequestedVisits [id number] Auto-Generated Referral [facility] Summary Purpose Family History No [...] Referral SpecialtyDiagnoses / ProceduresReferred By ContactReferred To [facility] Procedures CARDIOVASCULAR MEDICINE OP FOLLOW UP APPT ORDER Kendra Mendoza MD [address] [place] [address] [facility] Vascular [address] [address] Referral IDStatusReGrandview [facility] DateExpiration DateVisits RequestedVisits [id number] Not Required PCP Requested Referral [id number] / ProceduresReferred By ContactReferred To [facility] Diagnoses Paroxysmal atrial fibrillation (HCC) Procedures CONSULT TO ELECTROPHYSIOLOGY OFFICE/OUTPATIENT [facility] 60 MINUTES Kendra Mendoza MD [address] [place] [address] Referral IDStatus[facility] DateExpiration DateVisits RequestedVisits [id number] PCP Requested Referral [id number] / ProceduresReferred By ContactReferred To [facility] Diagnoses Paroxysmal atrial fibrillation (HCC) Chronic systolic (congestive) heart failure (HCC) Procedures ECHO ECHO TTHRC R-T 2D W/WOM-MODE COMPL SPEC&COLR D Kendra Mendoza MD [address] [place] [address] [place] [address] Referral IDStatusReasonStart DateExpiration DateVisits RequestedVisits [id number] Request Auto-Generated Referral [id number] / ProceduresReferred By ContactReferred To [facility] Diagnoses Paroxysmal atrial fibrillation (HCC) Procedures ECHO TRANSESOPHAGEAL ECHO TRANSESOPHAG R-T 2D W/PRB IMG CYRUS I&R Kendra Mendoza MD [address] [place] [address] [place] [address] Referral IDStatusReasonStart DateExpiration DateVisits RequestedVisits [id number] Request Auto-Generated Referral [id number] / ProceduresReferred By ContactReferred To [facility] Diagnoses Atrial fibrillation, persistent (HCC) Typical atrial flutter (HCC) Procedures CARDIOVASCULAR MEDICINE OP FOLLOW UP APPT ORDER Rd Qureshi MD [address] [place] [address] [place] [address] Referral IDStatusReasonStellerslie DateExpiration DateVisits RequestedVisits [id number] Not Required PCP Requested Referral [id number] / ProceduresReferred By ContactReferred To ContactCardiology / CARDIOVASCULAR MEDICINE Diagnoses Gastrointestinal bleeding, lower Atrial fibrillation, persistent (HCC) Atypical atrial flutter (HCC) Procedures CONSULT TO ELECTROPHYSIOLOGY OFFICE/OUTPATIENT [facility] [address] Qureshi MD [address] [place] [address] Card [facility] Main [address] [place] [address] Referral IDStatusReasonStart DateExpiration DateVisits RequestedVisits [id number] PCP Requested Referral Additional Source Comments Source [...] UpSpecialtyDiagnoses / Procedures Referred By ContactReferred To [facility] Procedures CARDIOVASCULAR MEDICINE OP [place]LLOW [place] [address] [place] [address] [facility] [address] [address] Referral IDStatusReasonStart DateExpiration DateVisits RequestedVisits [id number] Not Required PCP Requested Referral 1ReasonOnset DateCommentsAtrial Vfufggouukst51/02/2024Reason Onset DateCommentsAtrial Jxuzqdejgiju14/09/2024ReasonCommentsPatient Update ProceduresReasonCommentsFollow-upPER HMI Increased SOB, Dry CoughSpecialty Diagnoses / ProceduresReferred By ContactReferred To Contact Diagnoses Persistent atrial fibrillation with rapid ventricular response (Multi) Procedures ECG 12 Lead Avelina Chowdhury MD [address] [facility], [facility] [address] [place] [address] Referral IDStatusSalem Memorial District HospitalStellerslie DateExpiration DateVisits RequestedVisits [id number]/19/20247/19/134315TltketCqnzhelhVgdbxx UpReason Onset DateCommentsAtrial Nrihcfoqnmtw00/21/2025ReasonCommentsRadiology NM SpecialtyDiagnoses / ProceduresReferred By ContactReferred To ContactMOLECULAR & FUNCTIONAL IMAGING Diagnoses Chronic diastolic heart failure (HCC) Procedures NM SPECT/CT CARDIAC AMYLOID RP LOCLZJ BRINDA SPECT W/CT 1 AREA 1 DAY IMAGING Ariana Valles MD [address] [phone] Phone: tel: fax: [facility] [address] [phone] Phone: tel: Referral IDStatusReasonStart DateExpiration DateVisits RequestedVisits [id number] Auto-Generated Referral /[id number]lxlursErggdufvf / ProceduresReferred By ContactReferred To [facility] Procedures CARDIOVASCULAR MEDICINE OP FOLLOW UP APPT ORDER Kendra Mendoza MD [address] [place] [address] Phone: tel: fax: Heart [facility] Vascular [address] [place] [address] Referral IDStatusReasonStart DateExpiration DateVisits RequestedVisits [id number] PCP Requested Referral /[id number] SurgeryPVI ablation+ Watchman implant Care Teams (unrecognized sec tion and content) Team MemberRelationshipSpecialtyStart DateEnd Count Includes [facility] Levi Dumont [address] [phone] PCP - General09/11/03Team MemberRelationshipSpecialtyStart DateEnd Count Includes [facility] Levi Dumont [address] [phone] PCP - General09/11/03Team MemberRelationshipSpecialtyStart DateEnd Date Samantha Maya MD [address] [place] [address] PCP - GeneralFagaly [facility]02/05/24Team MemberRelationshipSpecialtyStart DateEnd Date Samantha Maya MD [address] [facility] [place] [address] PCP - GeneralFamily Medicine02/05/24Team MemberRelationshipSpecialtyStart DateEnd Date Samantha Maya MD [address] [facility] [place] [address] PCP - GeneralFamily Medicine02/05/24Team MemberRelationshipSpecialtyStart DateEnd Date Samantha Maya MD [address] [facility] [place] [address] PCP - GeneralFamily Medicine02/05/24Team MemberRelationshipSpecialtyStart DateEnd Date Samantha Maya MD [address] [facility] [place] [address] PCP - GeneralFamily Medicine02/05/24Team MemberRelationshipSpecialtyStart DateEnd Date Levi Dumont [address] [phone] PCP - General/ Samantha Maya MD [address] [facility] [place] [address] PCP - GeneralFamily Medicine02/05/24Team MemberRelationshipSpecialtyStart DateEnd Date Samantha Maya MD [address] [facility] [place] [address] PCP - GeneralFamily Medicine02/05/24Team MemberRelationshipSpecialtyStart DateEnd Date Samantha Maya MD [address] [facility] [place] [address] PCP - GeneralFamily Medicine02/05/24Team MemberRelationshipSpecialtyStart DateEnd Date Samantha Maya MD [address] [place] [address] PCP - GeneralFamily Medicine02/05/24Team MemberRelationshipSpecialtyStart DateEnd Date Samantha Maya MD [address] [facility] [place] [address] PCP - Kyqxigj76/12/15Team MemberRelationshipSpecialtyStart DateEnd Date Samantha Maya MD [address] [place] [address] PCP - GeneralFamily Medicine02/05/24Team MemberRelationshipSpecialtyStart DateEnd Date Samantha Maya MD [address] [place] [address] PCP - GeneralFamily Medicine02/05/24Team MemberRelationshipSpecialtyStart DateEnd Date Samantha Maya MD [address] [place] [address] PCP - GeneralFamily Medicine02/05/24Team MemberRelationshipSpecialtyStart DateEnd Date Samantha Maya MD [address] [facility] [place] [address] PCP - GeneralFamily Medicine02/05/24Team MemberRelationshipSpecialtyStart DateEnd Date Samantha Maya MD [address] [place] [address] PCP - Generalmily Medicine02/05/24Te MemberRelationshipSpecialtyStart DateEnd Date Samantha Maya MD [address] [place] [address] PCP - [facility]02/05/24Team MemberRelationshipSpecialtyStart DateEnd Date Samantha Maya MD [address] [place] [address] PCP - [facility] Medicine02/05/24 [place] [address] [place] [address] Specialty Care CoordinatorHematology/Oncology10/06/24Team MemberRelationship SpecialtyStart DateEnd Date Samantha Maya MD [address] [place] [address] [facility]/05/24 Daisy Jaramillo, DARRIAN [address] [place] [address] Specialty Care CoordinatorHematology/Oncology10/06/24Team MemberRelationship SpecialtyStart DateEnd Date Samantha Maya MD [address] [place] [address] PCP - [facility]02/05/24 [place] [address] [place] [address] Specialty Care CoordinatorHematology/Oncology10/06/24 (unrecognized sect ion and content) No Status Records FoundNo Status Records FoundNo Status Records FoundNo Status Records FoundNo Status Records FoundNo Status Records FoundNo Status Records FoundNo Status Records FoundNo Status Records FoundNo Status Records FoundNo Status Records FoundNo Status Records FoundNo Status Records FoundNo Status Records Found INFORMATION SOURCE (unrecogn ized section and content) DATE CREATED AUTHOR 09/22/2022 [facility] DATE CREATED AUTHOR AUTHOR'S ORGANIZ ATION 11/16/2022 [facility] DATE CREATED AUTHOR AUTHOR'S ORGANIZ ATION 12/02/2022 [facility] DATE CREATED AUTHOR AUTHOR'S ORGANIZ ATION 01/29/2023 [facility] DATE CREATED AUTHOR AUTHOR'S ORGANIZ ATION 01/04/2024 [facility] DATE CREATED AUTHOR AUTHOR'S ORGANIZ ATION 01/13/2024 [facility] DATE CREATED AUTHOR AUTHOR'S ORGANIZ ATION 02/03/2024 [facility] DATE CREATED AUTHOR AUTHOR'S ORGANIZ ATION 06/10/2024 [facility] DATE CREATED AUTHOR AUTHOR'S ORGANIZ ATION 06/16/2024 [facility] DATE CREATED AUTHOR AUTHOR'S ORGANIZ ATION 01/04/2025 [facility] DATE CREATED AUTHOR AUTHOR'S ORGANIZ ATION 03/13/2025 [facility] FOR RECORDS PERTAINING TO PATIENTS WHO ARE [...] BE BASED ON THE PRIMARY CLINICAL RECORDS. [facility]. provides no warranty or guarantee of the accuracy or completeness of information in this document.
--- OUTSIDE RECORDS SUMMARY | 2025-05-13 04:04 | XMS_ITS | Clinical Summary ---
Author Organization [facility] Address [address] [facility] [place] [address] Care Team Providers Care Implementation Director Name Role Phone Unavailable Primary Care Provider Unavailabl e Source Comments The following information is NOT included in Care Everywhere downloads:Psychiatric notes, ECG results, Cardiac Rehab notes, Pulmonary Function notes, data from [employer] (includes but not limited toPregnancy data,audiograms, eye exams, pre-surgical evaluation notes, well-child exam data).[facility] Allergies No known active allergies Medications MedicationSigDispense QuantityRefillsLast FilledStart DateEnd DateStatus diltiazem (CARDIZEM CD) 180 MG ER capsule 12/24/2014ctive losartan (COZAAR) 100 MG tablet 12/24/2014ctive Calcium-Vitamin D 600-125 MG-UNIT TABS Take by mouth.Active [place]-3 Fatty Acids (OMEGA 3) 1000 MG CAPS Take by mouth.Active Methylsulfonylmethane (MSM) 1000 MG CAPS Take by mouth.Active ascorbic acid 500 MG tablet Take 500 mg by mouth daily.Active Active Problems ProblemNoted DateDiagnosed DateCarpal tunnel dbazfbmn64/20/2015Lesion of ulnar nerve12/25/2014 Social History Tobacco UseTypesPacks/DayYears UsedDateSmoking Tobacco: NeverSex and Gender InformationValueDate RecordedSex Assigned at BirthNot on fileLegal SexMale 11/27/2014 10:57 AM EDTGender IdentityNot on fileSexual OrientationNot on file Last Filed Vital Signs Vital SignReadingTime TakenCommentsBlood Sgbqhacb548/66001/24/2015 11:42 AM EDT Zgwgs9837/19/2015 11:42 AM JJWYqqabynpbhl03.5 ??C (97.7 ??F)01/24/2015 11:42 AM EDTRespiratory Vdzb962301/24/2015 11:42 AM EDTOxygen Kxmptnpcts124%01/24/2015 11:42 AM EDTInhaled Oxygen Concentration--Yqahab64.6 kg (180 lb)01/24/2015 8:03 AM WGVJsvtca478.7 cm (5' 8 )01/24/2015 8:03 AM EDTBody Mass Index27.37001/24/2015 8:03 AM EDT Plan of Treatment Health MaintenanceDue DateLast DoneCommentsTdap Ocbyiyk2309/28/1958Hepatitis A (HAV) Vaccine (optional start 19+ years)09/29/1959Pneumococcal Vaccine(s) (50+ yrs) (1 of 1 - PCV)1990Shingles (RZV) Vaccine (1 of 2)1990Hepatitis B (HBV) Vaccine (optional start 60+ years)2000Annual Wellness Visit (G0438)01/06/2010RSV vaccine (adult) (1 - 1-dose 75+ series)09/29/2015COVID-19 Vaccine (1 - 2024- season)2025Influenza Vaccine (#1)2025 Insurance
--- OUTSIDE RECORDS SUMMARY | 2025-05-13 04:04 | XMS_ITS | Clinical Summary ---
Author Organization [facility] Address [address] [place], [place] [id number] Care Team Providers Care Molasses Coloring Operator Name Role Phone Michael Recio MD Primary Care Provider + Daisy Jaramillo RN Unavailable [phone] Allergies No known active allergies Medications MedicationSigDispense QuantityRefillsLast FilledStart DateEnd DateStatus CALCIUM CARBONATE/VITAMIN D3 (CALCIUM + D ORAL) Take by mouth once daily.Active ZNOX/PYG/PUMPK/SAW PAL/PROST (MEN'S SAW PALMETTO FORMULA ORAL) Take by mouth once daily.Active selenium 200 mcg cap Take by mouth once daily.Active ascorbic acid, vitamin C, (VITAMIN C) 500 mg tablet Take 500 mg by mouth once daily.Active acetaminophen (TYLENOL ARTHRITIS ORAL) Take by mouth as needed.Active Wwjebxgsqjotv-Zpvrnmxn-Ktrepw (CENTRUM SILVER) tab Take 1 tablet by mouth once daily.Active magnesium oxide 400 mg magnesium tab Take 400 mg by mouth once daily.Active lisinopril (ZESTRIL) 5 mg tablet Take 5 mg by mouth once daily.12/30/2023ctive apixaban (ELIQUIS) 2.5 mg tab(s) Take 1 tablet by mouth two times a day. 60 tablet 11107/25/2023ctive sodium chloride 0.9 %, flush, (BD POSIFLUSH) syringe Indications:PAF (paroxysmal atrial fibrillation) (HCC)Inject 2-10 mL intravenously as directed. For Echo procedure 10 mL 506Active Active Problems ProblemNoted DateDiagnosed DateChronic diastolic heart kkqnrxm4810/03/2024PAF (paroxysmal atrial fibrillation)10/03/20241453Twrspssew79/15/2025 Overview (09/20/2024): shoulder, knees and elbows Calculus of svillf3709/20/2024Gastrointestinal hlbdofvtjm61/15/2025 Overview (09/20/2024): Comment on above: received 4 units of blood History of cardiac eezxqealowkcihs28/15/2025History of pqoqgxkildem37/15/2025 Ischemic ttihqlv8309/20/2024Mesenteric zoalphhski01/15/2025Rectal bleed09/20/2024 Bilateral carpal tunnel gtzruqji93/11/2023Essential hypertension, benign 03/18/20236453Ogncplxqchk45/11/2023Left atrial pieabzic96/11/2023ersistent atrial fibrillation with rapid ventricular sygozisd64/11/2023Non-rheumatic mitral hpqctdepgswbd59/26/2023ongestive heart vrscynd9002/21/2022Iron deficiency anemia 08/05/2016 Encounters DateTypeDepartmentCare RpxwRcrsqqelxbu67/19/2025Telephone Cardiology [address] [place] [address] Ariana Valles MD Received Outside Medical Records ([facility])04/19/2025 Patient Msg Hematology/Oncology [address] [place] [address] Provider, Ccf Ztuvdhgytu24/01/2025Telephone Plastic Surgery [address] [place] [address] Jose Maria Porter MD from Last 3 Months Family History Medical HistoryRelationCommentsCataractFatherHypertensionFatherCataractMother HypertensionMotherCancerSister 1CancerSister 2CataractSister 2DiabetesSister 2 RelationStatusCommentsFatherDeceasedMotherDeceasedSister 1DeceasedSister 2Alive Social History Tobacco UseTypesPacks/DayYears UsedDateSmoking Tobacco: FormerCigarettes0.35 Started: 1954Smokeless Tobacco: Never Tobacco Cessation:Counseling Given: Not Answered Alcohol UseStandard Drinks/WeekCommentsYes0 (1 standard drink = 0.6 oz pure alcohol)on occPHQ-2AnswerDate RecordedPHQ-2 xsixg8775Area Deprivation IndexAnswerDate RecordedNational Score (1-100), lower number is lower risk91 02/04/2024State Score (1-10), lower number is lower futg61202/04/2024ata from: https://www.neighborhoodatlas.[facility]/. Last address used for xyrjfyx[address] [facility]02/04/2024Sex and Gender InformationValueDate Recorded Sex Assigned at BirthNot on fileLegal MsuTall50/02/2012 8:41 AM ESTGender IdentityNot on fileSexual OrientationNot on file Last Filed Vital Signs Vital SignReadingTime TakenCommentsBlood Gvtdsyiw329/78012/05/2024 12:46 PM EDT Fsobg598412/05/2024 12:46 PM DLZZxpeqtvpdbr33.5 ??C (97.7 ??F)02/09/2024 12:24 PM EDTRespiratory Bmyb673207/25/2023 11:23 AM ESTOxygen Lqcacdxaeh25%12/05/2024 12:46 PM EDTRAInhaled Oxygen Concentration--Wgardh99.8 kg (160 lb 8 oz)12/05/2024 12:46 PM VWHYtskdr268.6 cm (5' 6 )12/05/2024 12:46 PM EDTBody Mass Index25.91 12/05/2024 12:46 PM EDT Plan of Treatment DateTypeDepartmentCare Team (Latest Contact Info)Papugppthox66/15/2025 8:00 AM ESTProcedure Cardiology [address] [place] [address] PVI+EHYXJZNF25/15/2025 8:45 AM ESTOffice Visit Cardiology [address] [place] [id number] Ariana Valles MD [address] [place] [address] PVI+BDMXVPLZ90/15/2025 9:45 AM ESTResults Only Main [place] J1-4 Draw Station [address] [id number] PVI+ZRGPPTJQ95/19/2025 6:00 AM ESTOffice Visit Cardiology [address] [place] [address] TO BE DONE IN THE LAB05/26/2025 7:00 AM ESTOffice Visit Admitting [address] [place] [address] PVI+SUFLFNWH96/19/2025 7:30 AM ESTOffice Visit Cardiology [address] [place] [address] 9, [place] [address] PVI+XBKJRXQM89/19/2025 1:00 PM ESTHospital Encounter HOSP EP Lab [address] [place] [address] Ariana Valles MD [address] [place] [address] Atrial fibrillation, unspecified type (HCC) [I48.91]05/26/2025 1:00 PM EST - 05/26/2025 6:32 PM ESTSurgery HOSP EP Lab [address] [place] [address] [place] [address] [place] [address] [phone] COMPRE EP EVAL ABLTJ ATR FIB PULM VEIN XGPMCHRGR03/26/2025 1:30 PM ESTOffice Visit Vascular Medicine [address] [place] [address] DX: HEART GWMWITR8806/02/2025 2:30 PM ESTOffice Visit Cardiology [address] [place] [address] [place] [address] [place] [address] DX: HEART NNSPYYM3709/05/2025 10:30 AM EDTOffice Visit Cardiology [address] [place] [address] PVI+VCFEMXDE43/31/2026 12:30 PM EDTProcedure Cardiology [address] [id number] PVI+SRFPLEGE29/31/2026 1:30 PM EDTOffice Visit Cardiology [address] [phone] Ariana Valles MD [address] [place] [address] PVI+WATCHMANNamePriorityAssociated DiagnosesDate/TimeCOMPRE EP EVAL ABLTJ ATR FIB PULM VEIN ISOLATION Atrial fibrillation, unspecified type (HCC) 05/26/2025 1:00 PM ESTPERC TRANSCATH CLOSURE LEFT ATRIAL APPENDAGE W/IMPLANT,INCLUSIVE OF FLUORO,TRANSEPTAL PUNCTURE,CATHPLACEMENT(S) ANGIO,WHEN PERFORMED,RAD S&I Atrial fibrillation, unspecified type (HCC) 05/26/2025 1:00 PM ESTHealth MaintenanceDue DateLast DoneCommentsAnxiety Qqlglutji04/23/1959Depression Ufegdzjne23/23/1959DTaP,Tdap,Td Vaccine (1 - Tdap) 09/29/1959Pneumococcal Vaccine: 50+ (1 of 2 - PCV)09/29/1959hingrix Vaccine (1 of 2)1990Medicare Annual Wellness Visit09/06/2005RSV Vaccine (1 - 1-dose 75+ series)09/29/2015Advance Directive Gvzktbtqhi62/01/2025Covid-19 Vaccine ( season), 2020, 08/31/2020Influenza Vaccine (#1), 03/25/2016, 03/17/2016Diabetes Ddighwevt01/28/2028 10/03/2024, 05/24/2024, 02/09/2024, Additional history exists Goals GoalPatient Goal TypeAssociated ProblemsRecent ProgressPatient-Stated?Author Blood Pressure < 130/80 Blood Gdxfzkmd007/78(12/05/2024 12:46 PM EDT)Eduarda Reid MD Autogenerated Goal Care PlanAutogenerated ProblemNoOptime, Batch Procedures Procedure NamePriorityDate/TimeAssociated DiagnosisCommentsCOMPREHENSIVE METABOLIC QLMMURnyrqsq29/28/2025 1:48 PM EDT Monoclonal gammopathy from Last 3 Months or Most Recently Relevant to Health Maintenance Results * (ABNORMAL) COMPREHENSIVE METABOLIC PANEL (10/03/2024 1:48 PM EDT)Component ValueRef RangeTest MethodAnalysis TimePerformed AtPathologist Signature Protein, Total8.06.3 - 8.0 g/dL10/03/2024 8:59 PM EDTCRIVERVIEW [facility] LABAlbumin4.33.9 - 4.9 g/dL10/03/2024 8:59 PM [facility] LABCalcium, Total10.08.5 - 10.2 mg/dL10/03/2024 8:59 PM [facility] LABBilirubin, Total0.40.2 - 1.3 mg/dL10/03/2024 8:59 PM EDT [facility] LABAlkaline Vcihrabszal6377 - 113 U/L10/03/2024 8:59 PM [facility] QYSRXI6755 - 40 U/L10/03/2024 8:59 PM [facility] KFYXNC4353 - 54 U/L10/03/2024 8:59 PM EDT [facility] TCJGvbnsat3458 - 99 mg/dL10/03/2024 8:59 PM EDT [facility] LABComment: The [place] Diabetes Association (ADA) provides guidance [...] [place] Diabetes Association. Diabetes Care. 2016.39(Suppl 1). BUN28(H)9 - 24 mg/dL10/03/2024 8:59 PM [facility] LAB Creatinine1.26(H)0.73 - 1.22 mg/dL10/03/2024 8:59 PM [facility] KUMIwfvvh680666 - 144 mmol/L10/03/2024 8:59 PM [facility] LABPotassium5.2(H)3.7 - 5.1 mmol/L10/03/2024 8:59 PM [facility] WWGKvkvzdsa33719 - 107 mmol/L10/03/2024 8:59 PM [facility] BSUID55702 - 30 mmol/L10/03/2024 8:59 PM [facility] LABAnion Piw485 - 15 mmol/L10/03/2024 8:59 PM [facility] LABEstimated Glomerular Filtration Rate56(L)>=60 mL/min/1.73m 10/03/2024 8:59 PM [facility] LABComment:Estimated Glomerular Filtration Rate (eGFR) is calculated using the 2020 CKD-EPI creatinine equation. This equation utilizes serum creatinine, sex, and age as parameters. The creatinine assay has traceable calibration to isotope dilution- mass spectrometry. Refer to KDIGO guidelines for clinical interpretation. In patients with unstable renal function, e.g. those with acute kidney injury, the eGFRmay not accurately reflect actual GFR.Specimen (Source)Anatomical Location / LateralityCollection Method / VolumeCollection TimeReceived TimeBloodBLOOD SPECIMEN / UnknownVenipuncture / Asgfpnb9310/03/2024 1:48 PM EDT10/03/2024 1:48 PM EDT Narrative Authorizing ProviderResult TypeResult StatusJose Maria Porter MDLABORATORYFinal ResultPerforming OrganizationAddressCity/State/ZIP CodePhone Number [facility] [address] [address], from Last 3 Months or Most Recently Relevant to Health Maintenance Additional Health Concerns Active ProblemsNoted DateDiagnosed DateAutogenerated Koycvnp6204/26/2025 Insurance Care Teams Team MemberRelationshipSpecialtyStart DateEnd Michael Recio MD [address] [place], [place] [phone] PCP - GeneralFamily Medicine02/05/24 Daisy Jaramillo, DARRIAN [address] [place] [address] Specialty Care CoordinatorHematology/Oncology10/06/24
--- OUTSIDE RECORDS SUMMARY | 2025-05-13 04:04 | XMS_ITS | Clinical Summary ---
Author Organization [facility] Address [address] [facility], [address] [place] [address] Care Team Providers Care Road Engineer Freight Name Role Phone Michael Recio MD Primary Care Provider [phone] Allergies No known active allergies Medications MedicationSigDispense QuantityRefillsLast FilledStart DateEnd DateStatus diltiazem (CARDIZEM CD) 180 MG extended release capsule Take 180 mg by mouth dailyActive losartan (COZAAR) 100 MG tablet Take 100 mg by mouth dailyActive ascorbic acid (VITAMIN C) 500 MG tablet Take 500 mg by mouth dailyActive Methylsulfonylmethane (MSM) 1000 MG CAPS Take 1,000 mg by mouth dailyActive [place] 3 1000 MG CAPS Take 1,000 mg by mouth dailyActive Calcium Citrate-Vitamin D (CALCIUM + D PO) Take 1,200 mg by mouth dailyActive Multiple Vitamins-Minerals (CENTRUM SILVER ADULT 50+) TABS Take 1 tablet by mouth dailyActive Selenium 200 MCG CAPS Take 200 mg by mouth dailyActive aspirin 325 MG EC tablet TAKE 1 TABLET BY MOUTH TWICE OFBGB560Active docusate sodium (COLACE, DULCOLAX) 100 MG CAPS Take 100 mg by mouth 2 times daily08/05/2016Active magnesium hydroxide (MILK OF MAGNESIA) 400 MG/5ML suspension Take 30 mLs by mouth daily as needed for Tuttlkoxijfl71/28/2017Active Active Problems ProblemNoted DateDiagnosed DatePrimary osteoarthritis of left knee11/18/2016Pain in joint of right knee08/05/2016Iron deficiency hvsirt9608/05/2016Acute blood loss as cause of postoperative akhsvs1008/05/2016Primary osteoarthritis of right knee 02/27/2017Genu varum of both lower xmmdaisbwnx21/27/2017HypertensionArthritis Overview (08/05/2016): shoulder, knees and elbows MVP (mitral valve prolapse)Hx of lower gastrointestinal bleeding Immunizations ImmunizationAdministration DatesNext DueInfluenza Vaccine, unspecified vnuutnscesv06/18/2016 Social History Tobacco UseTypesPacks/DayYears UsedDateSmoking Tobacco: NeverSmokeless Tobacco: Never Tobacco Cessation:Counseling Given: No Alcohol UseStandard Drinks/WeekCommentsYes1 (1 standard drink = 0.6 oz pure alcohol)Sex and Gender InformationValueDate RecordedSex Assigned at BirthNot on fileLegal DbpZxde7806/12/2016 11:25 AM ESTGender IdentityNot on fileSexual OrientationNot on file Last Filed Vital Signs Vital SignReadingTime TakenCommentsBlood Sffqulyo406/7006 11:35 AM EDT Bheqj634911/19/2016 11:35 AM XSXGrwulphkvli32.6 ??C (97.9 ??F)11/19/2016 11:35 AM EDTRespiratory Gipw642211/19/2016 11:35 AM EDTOxygen Vmoulgnhny68%11/19/2016 11:35 AM EDTInhaled Oxygen Concentration--Zhsjzo05.7 kg (178 lb)11/18/2016 8:27 AM EDT Vmyott144.2 cm (5' 7 )11/18/2016 8:27 AM EDTBody Mass Index27.8811/18/2016 8:27 AM EDT Plan of Treatment Not on file Medical Devices ImplantedTypeAreaManufacturerDevice IdentifierShelf Expiration DateModel / Serial / LotCement Hi Viscosity Smartset 40gr Implanted:Qty: 1 on 11/18/2016 [facility]ement[facility]: KneeJNJ: [employer]-[id number] / / Cement Hi Viscosity Smartset 40gr Implanted:Qty: 1 on 11/18/2016 by [facility]ementLeft: KneeJNJ: [employer]-[id number] / / Impl Kit Itotal Ps Ipoly Implanted:Qty: 1 on 11/18/2016 by [facility]neeLeft: KneeCONFORMIS INC-PM07/08/[id number] / / Impl Knee Patella Itotal Ipoly [id number] Implanted:Qty: 1 on 11/18/2016 by [facility]neeLeft: KneeCONFORMIS INC-PM07/08/[id number] / / [id number]. Knee Replaced Insurance Advance Directives * Full Code (Latest Code Status on File) Date ActivatedDate InactivatedComments11/18/2016 3:04 PM11/19/2016 4:59 PM * Full Code Date ActivatedDate InactivatedComments08/04/2016 12:45 PM2 6:45 PM Care Teams Team MemberRelationshipSpecialtyStart DateEnd Date Michael Recio MD [address] [place] [address] PCP - General07/09/16
--- OUTSIDE RECORDS SUMMARY | 2025-05-13 04:04 | XMS_ITS | Clinical Summary ---
Author Organization [facility] Address [address] [place] [address] Phone Care Team Providers Care Senior Computer Specialist Name Role Phone Michael Recio MD Primary Care Provider [phone] Allergies No known active allergies Medications MedicationSigDispense QuantityRefillsLast FilledStart DateEnd DateStatus apixaban (Eliquis) 5 mg tablet Take 1 tablet (5 mg) by mouth once daily.Active multivitamin with minerals iron-free (Centrum Silver) Take 1 tablet by mouth once daily.Active saw palmetto 450 mg capsule Take by mouth.Active selenium 200 mcg capsule Take by mouth.Active ascorbic acid (Vitamin C) 1,000 mg tablet Take 1 tablet (1,000 mg) by mouth once daily.Active indapamide (Lozol) 1.25 mg tablet Indications:Essential hypertension, benignTake 1 tablet (1.25 mg) by mouth once daily. 90 tablet ctive acetaminophen (Tylenol 8 HOUR) 650 mg ER tablet Take 1 tablet (650 mg) by mouth 2 times a day. Do not crush, chew, or split. Active magnesium oxide (Mag-Ox) 400 mg tablet Take 1 tablet (400 mg) by mouth once daily.Active metoprolol succinate XL (Toprol-XL) 50 mg 24 hr tablet Indications:Persistent atrial fibrillation with rapid ventricular response (Multi)Take 1 tablet (50 mg) by mouth once daily. Do not crush or chew. 90 tablet ctive Active Problems ProblemNoted DateDiagnosed DateShortness of fxmxrs2412/25/2023Former smoker 05/25/2023ilateral carpal tunnel syfhhozm79/11/2023ubital tunnel syndrome on left03/18/2023ubital tunnel syndrome on right03/18/2023Essential hypertension, dbnzzz9103/18/2023High risk medication use03/18/20234888Dzroclemret63/11/2023Left atrial /11/2023Mitral valve ubnmuioasjkjx77/11/2023ersistent atrial fibrillation with rapid ventricular fgcicvvr35/11/2023 Family History Medical HistoryRelationNameCommentsNo Known ProblemsMothermalignant neoplasm OtherRelationNameStatusCommentsMotherOther Social History Tobacco UseTypesPacks/DayYears UsedDateSmoking Tobacco: FormerCigarettes Smokeless Tobacco: Never Comments:Smoked as a teenage r for a brief period of time Alcohol UseStandard Drinks/WeekCommentsYes0 (1 standard drink = 0.6 oz pure alcohol)1 beer a monthSex and Gender InformationValueDate RecordedSex Assigned at BirthNot on fileLegal RpqIeqg33/26/2022 1:17 PM ESTGender IdentityNot on file Sexual OrientationNot on file Last Filed Vital Signs Vital SignReadingTime TakenCommentsBlood Zkknocyy631/8808 8:29 AM EDT Zjead76439/19/2024 10:57 AM EDTTemperature--Respiratory Rate--Oxygen Saturation- -Inhaled Oxygen Concentration--Tkglzb89.8 kg (167 lb)01/08/2024 8:29 AM EDT Qjwtan609.1 cm (5' 5 )01/08/2024 8:29 AM EDTBody Mass Index27.7908 8:29 AM EDT Plan of Treatment Health MaintenanceDue DateLast DoneCommentsCreatinine Level1Lipid Panel 1940Medicare Annual Wellness Visit (AWV)1Potassium Level 1Pneumococcal Vaccine (1 of 2 - PCV)09/29/1959DTaP/Tdap/Td Vaccines (1 - Tdap)1962Zoster Vaccines (1 of 2)1990RSV High Risk: (Elderly (60+) or Population) (1 - 1-dose 75+ series)09/29/2015Echocardiogram 5012/30/2023, 10/31/2022, 09/24/2022Influenza Vaccine (#1)2025 04/07/2017, 03/25/2016, 03/17/2016COVID-19 Vaccine (2024- season) , 2020, 08/31/2020HIB VaccinesAged OutNo longer eligible based on patient's age to complete this topicHPV VaccinesAged OutNo longer eligible based on patient's age to complete this topicHepatitis A VaccinesAged OutNo longer eligible based on patient's age to complete this topic Hepatitis B VaccinesAged OutNo longer eligible based on patient's age to complete this topicIPV VaccinesAged OutNo longer eligible based on patient's age to complete this topicMeningococcal VaccineAged OutNo longer eligible based on patient's age to complete this topicRotavirus VaccinesAged OutNo longer eligible based on patient's age to complete this topic Procedures Procedure NamePriorityDate/TimeAssociated DiagnosisCommentsECHOCARDIOGRAM 12/30/2023 from Last 3 Months or Most Recently Relevant to Health Maintenance Results * Echocardiogram (12/30/2023) Narrative 12/30/2023 Ordered by an unspecified provider. Authorizing ProviderResult TypeResult StatusGeneric Provider ScanningCV ECHO PROCEDURESFinal Result from Last 3 Months or Most Recently Relevant to Health Maintenance Insurance Care Teams Team MemberRelationshipSpecialtyStart DateEnd Michael Recio MD [address] [place] [address] [facility] - Bdbjhtf90/12/15
[2025-05-13 04:05] LABS: Hematocrit 37.2 % (42.0-54.0); Hemoglobin 12.9 g/dL (14.0-18.0); Immature Granulocytes Abs Auto 0.01 10^3/uL (0.00-0.03); Immature Granulocytes Pct Auto 0.2 % (0.0-0.5); Lymphocytes Absolute Auto 1.1 10^3/uL (1.2-3.8); Mean Corpuscular HGB Conc 34.7 g/dL (29.9-35.2); Mean Corpuscular Hemoglobin 35.9 pg (25.9-34.0); Mean Corpuscular Volume 103.6 fL (80.0-94.0); Platelet Count 186 10^3/uL (150-450); Red Blood Count 3.59 10^6/uL (4.70-6.10); White Blood Count 5.4 10^3/uL (4.0-11.0)
[2025-05-13 04:21] LABS: SARS-CoV-2 Ag NEGATIVE (NEGATIVE)
[2025-05-13 04:27] LABS: Anion Gap 9.6; Blood Urea Nitrogen 25.0 mg/dL (7.0-18.0); Calcium 8.9 mg/dL (8.5-10.1); Carbon Dioxide 33.4 mmol/L (21.0-32.0); Chloride 103 mmol/L (98-107); Estimated GFR (African America >60 (>=60 mL/min/1.73m^2); Estimated GFR (Non-African Ame 54 (>=60 mL/min/1.73m^2); Glucose 98 mg/dL (74-106); NT Pro B Type Natriuretic Pept 712.0 pg/mL (<=1800.0); Potassium 4.0 mmol/L (3.5-5.1); Sodium 142 mmol/L (136-145)
[2025-05-13] MEDS: METHYLPREDNISOLONE SOD SUCC PF 125 MG/2 ML VIAL IVP (04:39)
--- NOTE | 2025-05-13 05:14 | ECG_ITS ---
[facility] Test Date: 2025-05-13 Pat Name: BRANDI RAHMAN Department: Room: - Gender: Male [employer]: : 1940 Requested By: [id number] Order Number: [id number] Reading MD: DIEGO LONGORIA M.D. Measurements Intervals [place] Rate: 73 P: -52114 TN: 297 QRS: 71 QRSD: 110 T: 58 QT: 390 QTc: 417 Interpretive Statements SINUS RHYTHM 2231 First degree AV block [address] depression, probably digitalis effect 9150 abnormal ECG Compared to ECG 05/13/2025 03:22:37 Ventricular premature complex(es) no longer present ST (T wave) deviation still present Electronically Signed On 05-13-2025 15:14:30 EST by DIEGO LONGORIA M.D.
[2025-05-13] MEDS: ASPIRIN 81 MG TAB.CHEW 324 MG PO (06:09)
== END 2025-05-13 08:42 | disposition short-term general hospital (02) ==
PROVIDERS: Emergency Provider Internal Medicine; PCP Family Medicine
DX: R09.02 Hypoxemia (principal); R06.02 Shortness of breath; I48.91 Unspecified atrial fibrillation; R79.89 Other specified abnormal findings of blood chemistry; R07.9 Chest pain, unspecified
CPT/HCPCS: 36415; 71045; 80048; 83880; 84484; 85025; 87804; 87811; 93005; 94640; 96374; 99285; J2919